=== PATIENT | male | born 1960 | race Caucasian/White ===

== ENCOUNTER 2016-06-26 09:25 | Day surgery (SDC) | payer MEDICARE ==
[2016-06-22 10:50] VITALS: BMI 38.0
[~2016-06-26 09:25] MED LIST: LACTATED RINGERS 1,000 ML IV SCH
[2016-06-26 09:42] VITALS: TEMP 98.1
[2016-06-26] MEDS ORDERED: LIDOCAINE 1% 20 ML VIAL (10MG/ML) FOR IV START INTRADERMA ONE (09:44)
[2016-06-26] MEDS ORDERED: fentaNYL (PF) 50 MCG/ML 2 ML AMP ONE (10:32)
[2016-06-26] MEDS ORDERED: PROPOFOL 10 MG/ML 20 ML VIAL IV ONE (10:32)
[2016-06-26] MEDS ORDERED: MIDAZOLAM 2 MG/2 ML VIAL ONE (10:32)
--- NOTE | 2016-06-26 10:39 | P.GSHP ---
History of Present Illness H&P Date: 06/26/16 Chief Complaint: History of colonic polyps This a 55-year-old male referred from Dr. Frankel. Patient presents today for colonoscopy. He's had a previous colonoscopy 3 years ago which showed benign polyps. - Constitutional Constitutional: Reports as per HPI Past Medical History Past Medical History: Hypertension, Osteoarthritis (OA), Sleep Apnea/CPAP/BIPAP Additional Past Medical History / Comment(s): legally blind. History of Any Multi-Drug Resistant Organisms: None Reported Past Surgical History: Appendectomy Additional Past Surgical History / Comment(s): Patient underwent colonoscopy with polypectomy possible precancerous per patient. No history of colon or rectal cancer per patient. Past Anesthesia/Blood Transfusion Reactions: No Reported Reaction Past Psychological History: Anxiety, Bipolar, Depression, Schizophrenia Additional Psychological History / Comment(s): pt. states he sees Dr. Niño for his depression Smoking Status: Former smoker Past Alcohol Use History: None Reported Additional Past Alcohol Use History / Comment(s): smoked cigars quit 2012 Past Drug Use History: None Reported - Past Family History Father Family Medical History: CVA/TIA, Hypertension Mother Family Medical History: No Reported History Brother(s) Family Medical History: Hypertension Sister(s) Family Medical History: Cancer Medications and Allergies Home Medications Medication Instructions Recorded Confirmed Type Sertraline HCl [Zoloft] 200 mg PO DAILY 10/24/14 06/26/16 History amLODIPine [Norvasc] 5 mg PO DAILY 01/03/15 06/26/16 History Multivit-Min/FA/Lycopene/Lut 1 each PO DAILY 06/22/16 06/26/16 History [Centrum Silver Tablet] Trifluoperazine [Stelazine] 2 mg PO TID 06/22/16 06/26/16 History Vit A,C & E/Lutein/Minerals 1 each PO DAILY 06/22/16 06/26/16 History [Ocuvite with Lutein Tablet] Allergies Allergy/AdvReac Type Severity Reaction Status Date / Time Penicillins Allergy Anaphylaxis Verified 06/26/16 09:34 Surgical - Exam Vital Signs Temp Pulse Resp BP Pulse Ox 98.1 F 97 18 140/93 93 L 06/26/16 09:30 06/26/16 09:30 06/26/16 09:30 06/26/16 09:30 06/26/16 09:30 - General well developed, no distress - Eyes PERRL - ENT normal pinna - Neck no masses - Respiratory normal expansion - Cardiovascular Rhythm: regular - Abdomen Abdomen: soft, non tender Assessment and Plan Plan: History of colonic polyps. We'll perform colonoscopy.
--- NOTE | 2016-06-26 10:53 | P.OP ---
Date of Procedure: 06/26/16 Preoperative Diagnosis: History of colon polyps Postoperative Diagnosis: Mild diverticulosis External hemorrhoids Procedure(s) Performed: Colonoscopy Anesthesia: MAC Surgeon: Jose Carlos Mcdowell Pathology: none sent Condition: stable Disposition: PACU Description of Procedure: The patient's placed on the endoscopy table in the lateral position. He received IV sedation. Digital rectal exam was performed which revealed external hemorrhoids. The flexible colonoscope was then placed patient anus passed rotator colon. The ileocecal valve was visually is. The cecum, ascending and transverse colon appeared normal. In the descending; was mild diverticular changes. Scope was then brought back the rectum and this appeared normal. Scope was withdrawn for patient.
[2016-06-26 10:58] VITALS: RESP 20
[2016-06-26 11:14] VITALS: BP 120/82; PULSE 89
== END 2016-06-26 11:44 | disposition home or self-care (01) ==
LOC: ORWHC2ENDO 09:25
PROVIDERS: ATTEND Surgery
DX: Z12.11 Encounter for screening for malignant neoplasm of colon (principal); Z86.010 Personal history of colon polyps; K57.30 Diverticulosis of large intestine without perforation or abscess without bleeding; K64.4 Residual hemorrhoidal skin tags; I10 Essential (primary) hypertension; M19.90 Unspecified osteoarthritis, unspecified site; Z87.891 Personal history of nicotine dependence; F41.9 Anxiety disorder, unspecified; F31.9 Bipolar disorder, unspecified; F32.9 Major depressive disorder, single episode, unspecified; F20.9 Schizophrenia, unspecified; H54.8 Legal blindness, as defined in USA; G47.30 Sleep apnea, unspecified; Z99.89 Dependence on other enabling machines and devices; Z88.0 Allergy status to penicillin; Z79.899 Other long term (current) drug therapy
CPT/HCPCS: J2250; J3010; J2704; G0105

== ENCOUNTER 2018-08-14 16:04 | Emergency (ER) | payer MEDICARE ==
[2018-08-14] MEDS ORDERED: ALPRAZolam 0.5 MG TAB PO STA (16:36)
[2018-08-14 16:40] LABS: Appearance,Urine Clear (Clear); Bilirubin,Urine Negative (Negative); Blood,Urine Negative (Negative); Color,Urine Light Yellow; Glucose,Urine (UA) Negative (Negative); Ketones,Urine Negative (Negative); Leukocyte Esterase,Urine Negative (Negative); Nitrite,Urine Negative (Negative); Protein,Urine Negative (Negative); Specific Gravity,Urine 1.002 (1.001-1.035); Urobilinogen,Urine <2.0 mg/dL (<2.0)
[2018-08-14 16:53] LABS: Amphetamine Screen,Urine Not Detected (NotDetected); Barbiturate Screen,Urine Not Detected (NotDetected); Benzodiazepines Screen,Urine Not Detected (NotDetected); Cocaine Screen,Urine Not Detected (NotDetected); Methadone Screen, Urine Not Detected (NotDetected); Opiate Screen,Urine Not Detected (NotDetected); Oxycodone Screen, Urine Not Detected (NotDetected); Phencyclidine Screen,Urine Not Detected (NotDetected); Tricyclic Antidepressant,Urine Not Detected (NotDetected); Urn Cannabinoid Scrn Not Detected (NotDetected)
[2018-08-14 16:57] LABS: Basophils % (A) 1 %; Eosinophils # (A) 0.3 k/uL (0-0.7); Eosinophils % (A) 4 %; HCT 44.3 % (39.0-53.0); HGB 14.7 gm/dL (13.0-17.5); Lymphocytes # (A) 1.4 k/uL (1.0-4.8); Lymphocytes % (A) 22 %; MCH 28.2 pg (25.0-35.0); MCHC 33.3 g/dL (31.0-37.0); MCV 84.9 fL (80.0-100.0); Mean Platelet Volume 6.6; Monocytes # (A) 0.3 k/uL (0-1.0); Monocytes % (A) 4 %; Neutrophils # (A) 4.5 k/uL (1.3-7.7); Neutrophils % (A) 68 %; Platelet Count 192 k/uL (150-450); RBC 5.22 m/uL (4.30-5.90); RDW 13.1 % (11.5-15.5); WBC 6.6 k/uL (3.8-10.6)
[2018-08-14 17:21] LABS: Anion Gap 9 mmol/L; Blood Urea Nitrogen 14 mg/dL (9-20); Calcium 9.8 mg/dL (8.4-10.2); Carbon Dioxide 26 mmol/L (22-30); Chloride 104 mmol/L (98-107); Glucose 90 mg/dL (74-99); Potassium 3.9 mmol/L (3.5-5.1); Sodium 139 mmol/L (137-145)
--- NOTE | 2018-08-14 17:28 | ED ---
General Adult HPI - General Chief complaint: Psychiatric Symptoms Stated complaint: Lack of sleep Time Seen by Provider: 08/14/18 16:14 Source: patient Mode of arrival: ambulatory Limitations: no limitations - History of Present Illness Initial comments: Dictation was produced using [employer] dictation software. please excuse any grammatical, word or spelling errors. Chief Complaint: 57-year-old male presents with chief complaint of anxiety, insomnia and poor living situation. History of Present Illness: Patient is a 57-year-old male with chronic visual deficit, hypertension, also arthritis sleep apnea. He presents today because Sleep at night. Patient states that over the last several days there have been concerns of a mouse running around in his quarters. Reports that he is very anxious because of this and is unable to sleep at night because he feels like he can hear the mouse running around his house. States it is causing him to be anxious. He takes multiple medications for his anxiety and follows up with a psychiatrist. Patient has no other complaints at this time. The ROS documented in this emergency department record has been reviewed and confirmed by me. Those systems with pertinent positive or negative responses have been documented in the HPI. All other systems are other negative and/or noncontributory. PHYSICAL EXAM: General Impression: Alert and oriented x3, not in acute distress HEENT: Normocephalic atraumatic, extra-ocular movements intact, pupils equal and reactive to light bilaterally, mucous membranes moist. Cardiovascular: Heart regular rate and rhythm, S1&S2 audible, no murmurs, rubs or gallops Chest: Lungs clear to auscultation bilaterally, no rhonchi, no wheeze, no rales Abdomen: Bowel sounds present, abdomen soft, non-tender, non-distended, no organomegaly Musculoskeletal: Pulses present and equal in all extremities, no peripheral edema Motor: no focal deficits noted Neurological: CN II-XII grossly intact, no focal motor or sensory deficits noted Skin: Intact with no visualized rashes Psych: Anxious ED course: 57-year-old male presents with anxiety and difficulty sleeping at night secondary to concerns of mild sinus house. Signs upon arrival shows heart rate of 12 cumbersome vital signs within acceptable limits. Patient's well- appearing. Physical examination is benign. Patient given 0.5 mg of by mouth Xanax. . Patient insisted that laboratory evaluation be performed to rule out any sort of life-threatening condition. CBC, metabolic panel, urinalysis, rapid urine drug screen is obtained showing no acute processes. Patient reevaluated with improvement of symptoms. Attempt was made to contact patient's psychiatrist however unable to do so. Nonetheless, patient clear for discharge. He is told to follow-up with his psychiatrist as soon as possible for adjustments of his anxiety medications. Patient understandable and agreeable to disposition.Patient clear for discharge. - Related Data Home Medications Medication Instructions Recorded Confirmed Sertraline HCl [Zoloft] 200 mg PO DAILY 10/24/14 06/26/16 ARIPiprazole [Abilify] 2.5 mg PO BID 08/14/18 08/14/18 amLODIPine [Norvasc] 10 mg PO DAILY 08/14/18 08/14/18 Allergies Allergy/AdvReac Type Severity Reaction Status Date / Time Penicillins Allergy Anaphylaxis Verified 08/14/18 16:50 Review of Systems ROS Statement: Those systems with pertinent positive or pertinent negative responses have been documented in the HPI. ROS Other: All systems not noted in ROS Statement are negative. Past Medical History Past Medical History: Hypertension, Osteoarthritis (OA), Sleep Apnea/CPAP/BIPAP Additional Past Medical History / Comment(s): legally blind. History of Any Multi-Drug Resistant Organisms: None Reported Past Surgical History: Appendectomy Additional Past Surgical History / Comment(s): Patient underwent colonoscopy 01/29/2014 with polypectomy possible precancerous per patient. No history of colon or rectal cancer per patient. Past Anesthesia/Blood Transfusion Reactions: No Reported Reaction Past Psychological History: Anxiety, Bipolar, Depression, Schizophrenia Smoking Status: Former smoker Past Alcohol Use History: None Reported Past Drug Use History: None Reported - Past Family History Father Family Medical History: CVA/TIA, Hypertension Mother Family Medical History: No Reported History Brother(s) Family Medical History: Hypertension Sister(s) Family Medical History: Cancer General Exam Limitations: no limitations Course Vital Signs 08/14/18 16:07 Temperature 98.7 F Pulse Rate 102 H Respiratory 20 Rate Blood Pressure 146/95 O2 Sat by Pulse 100 Oximetry Medical Decision Making - Lab Data Result diagrams: 08/14/18 16:47 08/14/18 16:47 Lab Results 05/15/19 05/15/19 05/15/19 Range/Units 16:25 16:47 16:47 WBC 6.6 (3.8-10.6) k/uL RBC 5.22 (4.30-5.90) m/uL Hgb 14.7 (13.0-17.5) gm/dL Hct 44.3 (39.0-53.0) % MCV 84.9 (80.0-100.0) fL MCH 28.2 (25.0-35.0) pg MCHC 33.3 (31.0-37.0) g/dL RDW 13.1 (11.5-15.5) % Plt Count 192 (150-450) k/uL Neutrophils % 68 % Lymphocytes % 22 % Monocytes % 4 % Eosinophils % 4 % Basophils % 1 % Neutrophils # 4.5 (1.3-7.7) k/uL Lymphocytes # 1.4 (1.0-4.8) k/uL Monocytes # 0.3 (0-1.0) k/uL Eosinophils # 0.3 (0-0.7) k/uL Basophils # 0.0 (0-0.2) k/uL Sodium 139 (137-145) mmol/L Potassium 3.9 (3.5-5.1) mmol/L Chloride 104 (98-107) mmol/L Carbon Dioxide 26 (22-30) mmol/L Anion Gap 9 mmol/L BUN 14 (9-20) mg/dL Creatinine 0.78 (0.66-1.25) mg/dL Est GFR (CKD-EPI)AfAm >90 (>60 ml/min/1.73 sqM) Est GFR (CKD-EPI)NonAf >90 (>60 ml/min/1.73 sqM) Glucose 90 (74-99) mg/dL Calcium 9.8 (8.4-10.2) mg/dL Urine Color Light Yellow Urine Appearance Clear (Clear) Urine pH 6.0 (5.0-8.0) Ur Specific [place] 1.002 (1.001-1.035) Urine Protein Negative (Negative) Urine Glucose (UA) Negative (Negative) Urine Ketones Negative (Negative) Urine Blood Negative (Negative) Urine Nitrite Negative (Negative) Urine Bilirubin Negative (Negative) Urine Urobilinogen <2.0 (<2.0) mg/dL Ur Leukocyte Esterase Negative (Negative) Urine Opiates Screen Not Detected (NotDetected) Ur Oxycodone Screen Not Detected (NotDetected) Urine Methadone Screen Not Detected (NotDetected) Ur Propoxyphene Screen Not Detected (NotDetected) Ur Barbiturates Screen Not Detected (NotDetected) U Tricyclic Antidepress Not Detected (NotDetected) Ur Phencyclidine Scrn Not Detected (NotDetected) Ur Amphetamines Screen Not Detected (NotDetected) U Methamphetamines Scrn Not Detected (NotDetected) U Benzodiazepines Scrn Not Detected (NotDetected) Urine Cocaine Screen Not Detected (NotDetected) U Marijuana (THC) Screen Not Detected (NotDetected) Disposition Clinical Impression: Acute anxiety Disposition: HOME SELF-CARE Condition: Good Instructions (If sedation given, give patient instructions): Anxiety (ED) Is patient prescribed a controlled substance at d/c from ED?: No Referrals: Rich Niño DO [Doctor of Osteopathic Medicine] - 1-2 days Time of Disposition: 17:33
[2018-08-14 17:44] VITALS: BP 129/84; PULSE 99; RESP 18; TEMP 98.5
== END 2018-08-14 17:42 | disposition home or self-care (01) ==
LOC: EC 16:04
DX: F41.9 Anxiety disorder, unspecified (principal); I10 Essential (primary) hypertension; G47.30 Sleep apnea, unspecified; F31.9 Bipolar disorder, unspecified; F20.9 Schizophrenia, unspecified; Z79.899 Other long term (current) drug therapy; Z88.0 Allergy status to penicillin; Z87.891 Personal history of nicotine dependence
CPT/HCPCS: 36415; 80048; 80306; 81003; 85025; 99283

== ENCOUNTER 2020-07-04 18:29 | Inpatient (IN) | payer MEDICARE ==
--- NOTE | 2020-07-04 18:47 | ED ---
General Adult HPI - General Chief complaint: Shortness of Breath Stated complaint: Covid+, SOB Time Seen by Provider: 07/04/20 18:43 Source: patient Mode of arrival: wheelchair Limitations: physical limitation - History of Present Illness Initial comments: Patient presents the ED stating that he tested positive for Covid 8 days ago, and he has now developed increased weakness and difficulty breathing. Patient states that he has had symptoms now for 10 days. Patient also states that he has had a worsening cough. Patient denies having any pain, fever, headache, focal neuro deficit, chest pain, hemoptysis, palpitations, dizziness, abdominal pain, nausea/vomiting/diarrhea, dysuria or urinary symptoms, leg or calf swelling or pain, or any other symptoms or complaints. Patient denies receiving a Covid vaccination. Patient is legally blind. - Related Data Home Medications Medication Instructions Recorded Confirmed Sertraline HCl [Zoloft] 200 mg PO DAILY 10/24/14 07/04/20 ARIPiprazole [Abilify] 5 mg PO BID 08/14/18 07/04/20 ALPRAZolam [Xanax] 0.25 mg PO DAILY PRN 07/04/20 07/04/20 Cholecalciferol (Vitamin D3) 125 mcg PO DAILY 07/04/20 07/04/20 [Vitamin D3 (5000 Iu)] Zinc 50 mg PO DAILY 07/04/20 07/04/20 Allergies Allergy/AdvReac Type Severity Reaction Status Date / Time Penicillins Allergy Anaphylaxis Verified 07/04/20 20:26 Review of Systems ROS Statement: Those systems with pertinent positive or pertinent negative responses have been documented in the HPI. ROS Other: All systems not noted in ROS Statement are negative. Past Medical History Past Medical History: Hypertension, Osteoarthritis (OA), Sleep Apnea/CPAP/BIPAP Additional Past Medical History / Comment(s): legally blind. History of Any Multi-Drug Resistant Organisms: None Reported Past Surgical History: Appendectomy Additional Past Surgical History / Comment(s): Patient underwent colonoscopy 01/29/2014 with polypectomy possible precancerous per patient. No history of colon or rectal cancer per patient. Past Anesthesia/Blood Transfusion Reactions: No Reported Reaction Past Psychological History: Anxiety, Bipolar, Depression, Schizophrenia Smoking Status: Never smoker Past Alcohol Use History: None Reported Past Drug Use History: None Reported - Past Family History Father Family Medical History: CVA/TIA, Hypertension Mother Family Medical History: No Reported History Brother(s) Family Medical History: Hypertension Sister(s) Family Medical History: Cancer General Exam Limitations: physical limitation General appearance: alert, in no apparent distress Head exam: Present: atraumatic, normocephalic Eye exam: Present: normal appearance, EOMI ENT exam: Present: mucous membranes moist Neck exam: Present: other (Trachea is in midline) Respiratory exam: Present: normal lung sounds bilaterally. Absent: respiratory distress, wheezes, rales, rhonchi, stridor Cardiovascular Exam: Present: regular rate, normal rhythm, normal heart sounds, other (Normal radial pulses bilaterally) GI/Abdominal exam: Present: soft. Absent: distended, tenderness, guarding Extremities exam: Present: other (Negative Homans sign bilaterally). Absent: tenderness, pedal edema, calf tenderness Neurological exam: Present: alert, oriented X3. Absent: motor sensory deficit Psychiatric exam: Present: normal affect, normal mood Skin exam: Present: warm, dry, intact, normal color Course Vital Signs 07/04/20 07/04/20 18:30 19:38 Temperature 98.2 F Pulse Rate 56 L 108 H Respiratory 24 30 H Rate Blood Pressure 108/71 107/76 O2 Sat by Pulse 95 95 Oximetry - Reevaluation(s) Reevaluation #1: 07/04/20 19:57 Case, H&P and test results were discussed with Dr. Duncan who is currently in the ED. He accepts hospital admission. He recommends IV Decadron and pulmonology consultation. He has no further recommendations at this time. 07/04/20 21:08 Test results were discussed with Dr. Duncan EKG Findings - EKG Comments: EKG Findings:: Sinus tachycardia, ventricular rate 113 bpm, no ectopy, normal OR and QRS intervals, normal QT interval, normal axis, incomplete right bundle branch block, no ST or T-wave abnormality Medical Decision Making - Lab Data Result diagrams: 07/04/20 19:14 07/04/20 19:14 Lab Results 07/04/20 07/04/20 07/04/20 Range/Units 19:14 19:14 19:14 WBC 8.2 (3.8-10.6) k/uL RBC 4.74 (4.30-5.90) m/uL Hgb 14.0 (13.0-17.5) gm/dL Hct 40.0 (39.0-53.0) % MCV 84.4 (80.0-100.0) fL MCH 29.5 (25.0-35.0) pg MCHC 34.9 (31.0-37.0) g/dL RDW 12.5 (11.5-15.5) % Plt Count 237 (150-450) k/uL MPV 7.3 Neutrophils % 84 % Lymphocytes % 11 % Monocytes % 3 % Eosinophils % 0 % Basophils % 0 % Neutrophils # 6.9 (1.3-7.7) k/uL Lymphocytes # 0.9 L (1.0-4.8) k/uL Monocytes # 0.3 (0-1.0) k/uL Eosinophils # 0.0 (0-0.7) k/uL Basophils # 0.0 (0-0.2) k/uL PT 11.3 (9.0-12.0) sec INR 1.1 (<1.2) APTT 25.1 (22.0-30.0) sec D-Dimer 0.68 H (<0.60) mg/L FEU Sodium 134 L (137-145) mmol/L Potassium 4.0 (3.5-5.1) mmol/L Chloride 99 (98-107) mmol/L Carbon Dioxide 20 L (22-30) mmol/L Anion Gap 15 mmol/L BUN 31 H (9-20) mg/dL Creatinine 1.38 H (0.66-1.25) mg/dL Est GFR (CKD-EPI)AfAm 65 (>60 ml/min/1.73 sqM) Est GFR (CKD-EPI)NonAf 56 (>60 ml/min/1.73 sqM) Glucose 135 H (74-99) mg/dL Plasma Lactic Acid Reed (0.7-2.0) mmol/L Calcium 8.6 (8.4-10.2) mg/dL Magnesium 2.1 (1.6-2.3) mg/dL Total Bilirubin 2.0 H (0.2-1.3) mg/dL AST 147 H (17-59) U/L ALT 81 H (4-49) U/L Alkaline Phosphatase 51 (38-126) U/L Lactate Dehydrogenase 1334 H (313-618) U/L Troponin I (0.000-0.034) ng/mL C-Reactive Protein 260.5 H (<10.0) mg/L NT-Pro-B Natriuret Pep pg/mL Total Protein 7.2 (6.3-8.2) g/dL Albumin 3.9 (3.5-5.0) g/dL Coronavirus (PCR) (Not Detectd) 07/04/20 07/04/20 07/04/20 Range/Units 19:14 19:14 19:14 WBC (3.8-10.6) k/uL RBC (4.30-5.90) m/uL Hgb (13.0-17.5) gm/dL Hct (39.0-53.0) % MCV (80.0-100.0) fL MCH (25.0-35.0) pg MCHC (31.0-37.0) g/dL RDW (11.5-15.5) % Plt Count (150-450) k/uL MPV Neutrophils % % Lymphocytes % % Monocytes % % Eosinophils % % Basophils % % Neutrophils # (1.3-7.7) k/uL Lymphocytes # (1.0-4.8) k/uL Monocytes # (0-1.0) k/uL Eosinophils # (0-0.7) k/uL Basophils # (0-0.2) k/uL PT (9.0-12.0) sec INR (<1.2) APTT (22.0-30.0) sec D-Dimer (<0.60) mg/L FEU Sodium (137-145) mmol/L Potassium (3.5-5.1) mmol/L Chloride (98-107) mmol/L Carbon Dioxide (22-30) mmol/L Anion Gap mmol/L BUN (9-20) mg/dL Creatinine (0.66-1.25) mg/dL Est GFR (CKD-EPI)AfAm (>60 ml/min/1.73 sqM) Est GFR (CKD-EPI)NonAf (>60 ml/min/1.73 sqM) Glucose (74-99) mg/dL Plasma Lactic Acid Reed 4.8 H* (0.7-2.0) mmol/L Calcium (8.4-10.2) mg/dL Magnesium (1.6-2.3) mg/dL Total Bilirubin (0.2-1.3) mg/dL AST (17-59) U/L ALT (4-49) U/L Alkaline Phosphatase (38-126) U/L Lactate Dehydrogenase (313-618) U/L Troponin I 1.270 H* (0.000-0.034) ng/mL C-Reactive Protein (<10.0) mg/L NT-Pro-B Natriuret Pep 4540 pg/mL Total Protein (6.3-8.2) g/dL Albumin (3.5-5.0) g/dL Coronavirus (PCR) (Not Detectd) 07/04/20 Range/Units 19:14 WBC (3.8-10.6) k/uL RBC (4.30-5.90) m/uL Hgb (13.0-17.5) gm/dL Hct (39.0-53.0) % MCV (80.0-100.0) fL MCH (25.0-35.0) pg MCHC (31.0-37.0) g/dL RDW (11.5-15.5) % Plt Count (150-450) k/uL MPV Neutrophils % % Lymphocytes % % Monocytes % % Eosinophils % % Basophils % % Neutrophils # (1.3-7.7) k/uL Lymphocytes # (1.0-4.8) k/uL Monocytes # (0-1.0) k/uL Eosinophils # (0-0.7) k/uL Basophils # (0-0.2) k/uL PT (9.0-12.0) sec INR (<1.2) APTT (22.0-30.0) sec D-Dimer (<0.60) mg/L FEU Sodium (137-145) mmol/L Potassium (3.5-5.1) mmol/L Chloride (98-107) mmol/L Carbon Dioxide (22-30) mmol/L Anion Gap mmol/L BUN (9-20) mg/dL Creatinine (0.66-1.25) mg/dL Est GFR (CKD-EPI)AfAm (>60 ml/min/1.73 sqM) Est GFR (CKD-EPI)NonAf (>60 ml/min/1.73 sqM) Glucose (74-99) mg/dL Plasma Lactic Acid Reed (0.7-2.0) mmol/L Calcium (8.4-10.2) mg/dL Magnesium (1.6-2.3) mg/dL Total Bilirubin (0.2-1.3) mg/dL AST (17-59) U/L ALT (4-49) U/L Alkaline Phosphatase (38-126) U/L Lactate Dehydrogenase (313-618) U/L Troponin I (0.000-0.034) ng/mL C-Reactive Protein (<10.0) mg/L NT-Pro-B Natriuret Pep pg/mL Total Protein (6.3-8.2) g/dL Albumin (3.5-5.0) g/dL Coronavirus (PCR) Detected A (Not Detectd) - Radiology Data Radiology results: report reviewed (Chest x-ray: There is pulmonary edema that could relate to acute heart failure or RDS) Disposition Clinical Impression: Pneumonia due to COVID-19 virus, Elevated troponin Disposition: ADMITTED IP TO THIS HOSP Condition: Stable Is patient prescribed a controlled substance at d/c from ED?: No Time of Disposition: 20:01
[2020-07-04 19:25] LABS: Basophils % (A) 0 %; Eosinophils % (A) 0 %; Lymphocytes # (A) 0.9 k/uL (1.0-4.8); Lymphocytes % (A) 11 %; MCH 29.5 pg (25.0-35.0); MCHC 34.9 g/dL (31.0-37.0); MCV 84.4 fL (80.0-100.0); Mean Platelet Volume 7.3; Monocytes # (A) 0.3 k/uL (0-1.0); Monocytes % (A) 3 %; Neutrophils # (A) 6.9 k/uL (1.3-7.7); Neutrophils % (A) 84 %; Platelet Count 237 k/uL (150-450); RBC 4.74 m/uL (4.30-5.90); RDW 12.5 % (11.5-15.5); WBC 8.2 k/uL (3.8-10.6)
[2020-07-04 19:38] LABS: Albumin 3.9 g/dL (3.5-5.0); Calcium 8.6 mg/dL (8.4-10.2); Total Protein 7.2 g/dL (6.3-8.2)
[2020-07-04] MEDS ORDERED: SODIUM CHLORIDE 0.9% 1,000 ML IV ONE (19:47)
[2020-07-04 19:52] LABS: C Reactive Protein 260.5 mg/L (<10.0); Magnesium 2.1 mg/dL (1.6-2.3)
--- NOTE | 2020-07-04 19:54 | XR ---
EXAMINATION TYPE: XR chest 1V portable DATE OF EXAM: 07/04/2020 COMPARISON: NONE HISTORY: Difficulty breathing TECHNIQUE: Single view FINDINGS: Heart is enlarged. There is some pulmonary interstitial and airspace edema. There is no ple ural effusion. There are chest leads IMPRESSION: There is pulmonary edema that could relate to acute heart failure or RDS.
[2020-07-04] MEDS ORDERED: DEXAMETHASONE SOD PHOSPHATE 4 MG/ML 1 ML VIAL IV STA (19:58)
[2020-07-04] MEDS ORDERED: ASPIRIN 81 MG PO STA (20:12)
[2020-07-04] MEDS: SODIUM CHLORIDE 0.9% 1,000 ML IV SCH (20:21)
[2020-07-04 20:30] LABS: D-Dimer 0.68 mg/L FEU (<0.60); INR 1.1 (<1.2); Partial Thromboplastin Time 25.1 sec (22.0-30.0); Prothrombin Time 11.3 sec (9.0-12.0)
[2020-07-04] MEDS ORDERED: ALPRAZolam 0.25 MG TAB PO PRN (20:53)
[2020-07-04] MEDS ORDERED: ENOXAPARIN 40 MG/0.4 ML SYRINGE SQ SCH (21:00)
[2020-07-04] MEDS ORDERED: CHOLECALCIFEROL 25 MCG (1000 IU) TABLET PO SCH (21:00)
[2020-07-04] MEDS ORDERED: HEPARIN SODIUM 1,000 UN/ML (10ML VL) IV ONE (21:15)
[2020-07-04] MEDS: ARIPiprazole 5 MG TAB PO SCH (21:49)
[2020-07-04] MEDS: ZINC SULFATE 220 MG CAP PO SCH (21:49)
[2020-07-04] MEDS: ASCORBIC ACID 500 MG TAB PO SCH (21:49)
[2020-07-04] MEDS: PANTOPRAZOLE 40 MG TABLET PO SCH (21:49)
[2020-07-04] MEDS: HEPARIN SOD,PORK IN 0.45% NACL 25,000 UNIT in 0.45% NACL 1 250ML.BAG IV SCH (21:53)
--- NOTE | 2020-07-04 22:08 | CT ---
EXAMINATION TYPE: CT chest wo con DATE OF EXAM: 07/04/2020 COMPARISON: None HISTORY: Covid +, dyspnea CT DLP: 849 mGycm Automated exposure control for dose reduction was used. Images were obtained from the thoracic inlet to the diaphragm with no contrast. There is extensive around glass interstitial infiltrate throughout the lungs. There is no evidence of a discrete mass. Heart is borderline enlarged. There is no pericardial effusion. There is no pleural effusion. There are no hilar masses. Mediastinum is intact. There is no evidence of thoracic aortic aneurysm. The bony thorax is intact. Sternum is intact. Upper abdominal soft tissues appear intact. IMPRESSION: Moderately severe pulmonary interstitial edema.
--- NOTE | 2020-07-04 23:01 | HP ---
HISTORY AND PHYSICAL DATE OF SERVICE: 07/04/2020 CHIEF COMPLAINT: Shortness of breath. HISTORY OF PRESENT ILLNESS: This 59-year-old gentleman with a past medical history of multiple medical problems including hypertension, DJD, history of sleep apnea, history of legal blindness, being followed by Dr. Frankel in the outpatient setting was recently diagnosed with Covid about 8 days ago. The patient is complaining of some increased weakness and difficulty breathing and patient came to [facility] and admitted to the hospital for further evaluation and treatment. The patient also had worsening cough without much sputum and in the emergency room, evaluation showed multiple abnormalities, including increased creatinine indicative of acute renal failure, acute tubular necrosis and lactic acid elevated secondary to COVID-19 and patient had elevated AST, ALT, and features of hepatitis. Troponins found to be elevated 1.270 indicating acute non-ST- segment-elevation myocardial infarction. There is no history of any rigors, chills. No history of any headache, loss of consciousness or seizures. PAST MEDICAL HISTORY: Hypertension, DJD, sleep apnea, legal blindness. MEDICATIONS: Prior to admission include: Zinc, Zoloft, vitamin D3, Abilify, Xanax. ALLERGIES: PENICILLIN. FAMILY HISTORY: History of CVA, TIA, hypertension in the family. SOCIAL HISTORY: Previous history of smoking. No history of current smoking or alcohol. REVIEW OF SYSTEMS: ENT: Legally blind. Cardiovascular: No angina. Respiration as mentioned earlier. GI: As mentioned earlier. : No dysuria. NERVOUS SYSTEM: No numbness or weakness. ALLERGY/IMMUNOLOGY: No asthma or hayfever. MUSCULOSKELETAL as mentioned earlier. HEMATOLOGY/ONCOLOGY: No history of anemia. ENDOCRINE as mentioned earlier. CONSTITUTIONAL: As mentioned earlier. DERMATOLOGY: Negative. RHEUMATOLOGY: Negative. PSYCHIATRIC: As mentioned earlier. PHYSICAL EXAMINATION: Alert and oriented x3. Pulse is 108. Blood pressure 107/76, respirations 13. Temperature 98.2, pulse ox 94% on 2 L. HEENT: Conjunctivae normal. NECK: No JVD. CARDIOVASCULAR: S1, S2 muffled. RESPIRATIONS: Breath sounds diminished the bases. A few scattered rhonchi and crackles. Expiratory wheezing also present. ABDOMEN: Soft, nontender. No mass palpable. LEGS: No edema, no swelling. Nervous system: Higher functions as mentioned earlier. Moves all four limbs. LYMPHATICS: No lymph nodes palpable in the neck, axillae or groin. SKIN: No ulcer, no rash and no bleeding. JOINTS: No active deforming arthropathy. LABS: The D-dimer is 0.68. Sodium 134. Other labs are noted as mentioned earlier. Chest x- ray which was personally reviewed by me showed bilateral infiltrates, left more than the right. ASSESSMENT: 1. Acute COVID-19 infection with significant bilateral interstitial pneumonia, left more than the right. 2. Acute renal failure. 3. Hyponatremia. 4. Elevated D-dimer. 5. Elevated bilirubin, AST, ALT, possibly secondary to COVID hepatitis. 6. Elevated LDH. 7. Troponin 1.270 possible acute [id number]-elevation myocardial infarction. 8. Hypertension. 9. Degenerative joint disease. 10.Sleep apnea. 11.Legal blindness. 12.Polypectomy. 13.Anxiety/bipolar depression, schizophrenia. 14.FULL CODE. 15.Obesity with body mass of 34.3. RECOMMENDATIONS AND DISCUSSION: In this 59-year-old gentleman who presented with multiple complex medical issues, we will monitor the patient closely, continue the current medications, monitoring and symptomatic treatment. I would recommend a V/Q scan to rule out possible pulmonary embolism. Consult Pulmonary and Cardiology for elevated troponin. Otherwise symptomatic treatment. Lovenox. CT scan of the chest. Zinc, vitamin supplementation. Prognosis is extremely guarded because of multiple complex medical issues. A copy of this dictation is being forwarded to Dr. Frankel, who is the primary physician. MMODL / IJN: [id number] /
[2020-07-05] MEDS ORDERED: LORazepam 2 MG/ML INJ IV STA ×2 (01:54→03:58)
[2020-07-05 03:04] LABS: Appearance,Urine Cloudy (Clear); Bacteria,Urine Occasional /hpf; Bilirubin,Urine Negative (Negative); Blood,Urine Small (Negative); Color,Urine Dark Yellow; Glucose,Urine (UA) Negative (Negative); Granular Casts,Urine 44 /lpf (0); Hyaline Casts,Urine 222 /lpf (0-2); Ketones,Urine Trace (Negative); Leukocyte Esterase,Urine Negative (Negative); Mucus,Urine Many /hpf; Nitrite,Urine Negative (Negative); PH, Urine 5.5 (5.0-8.0); Protein,Urine 2+ (Negative); RBC,Urine 2 /hpf (0-5); Specific Gravity,Urine 1.031 (1.001-1.035); Squamous Epithelial Cell,Urine 3 /hpf (0-4); WBC,Urine 15 /hpf (0-5)
--- NOTE | 2020-07-05 03:48 | ED ---
Medical Decision Making - Medical Decision Making This is a 59-year-old patient with Covid who was a hold patient in the emergency department. Nursing had contacted Dr. Lora regarding patient's worsening condition. After reviewing the vital signs, labs, and patient clinical features with Dr. Lora, he felt patient should have intubation for impending respiratory failure. I did see the patient and agree the patient is entering respiratory failure. Patient was moved to the trauma room and I intubated the patient using the glide scope without difficulty. - Lab Data Result diagrams: 07/04/20 19:14 07/04/20 19:14 Lab Results 07/04/20 07/04/20 07/04/20 Range/Units 19:14 19:14 19:14 WBC 8.2 (3.8-10.6) k/uL RBC 4.74 (4.30-5.90) m/uL Hgb 14.0 (13.0-17.5) gm/dL Hct 40.0 (39.0-53.0) % MCV 84.4 (80.0-100.0) fL MCH 29.5 (25.0-35.0) pg MCHC 34.9 (31.0-37.0) g/dL RDW 12.5 (11.5-15.5) % Plt Count 237 (150-450) k/uL MPV 7.3 Neutrophils % 84 % Lymphocytes % 11 % Monocytes % 3 % Eosinophils % 0 % Basophils % 0 % Neutrophils # 6.9 (1.3-7.7) k/uL Lymphocytes # 0.9 L (1.0-4.8) k/uL Monocytes # 0.3 (0-1.0) k/uL Eosinophils # 0.0 (0-0.7) k/uL Basophils # 0.0 (0-0.2) k/uL PT 11.3 (9.0-12.0) sec INR 1.1 (<1.2) APTT 25.1 (22.0-30.0) sec D-Dimer 0.68 H (<0.60) mg/L FEU Sodium 134 L (137-145) mmol/L Potassium 4.0 (3.5-5.1) mmol/L Chloride 99 (98-107) mmol/L Carbon Dioxide 20 L (22-30) mmol/L Anion Gap 15 mmol/L BUN 31 H (9-20) mg/dL Creatinine 1.38 H (0.66-1.25) mg/dL Est GFR (CKD-EPI)AfAm 65 (>60 ml/min/1.73 sqM) Est GFR (CKD-EPI)NonAf 56 (>60 ml/min/1.73 sqM) Glucose 135 H (74-99) mg/dL Lactic Ac Sepsis Rflx Plasma Lactic Acid Reed (0.7-2.0) mmol/L Calcium 8.6 (8.4-10.2) mg/dL Magnesium 2.1 (1.6-2.3) mg/dL Total Bilirubin 2.0 H (0.2-1.3) mg/dL AST 147 H (17-59) U/L ALT 81 H (4-49) U/L Alkaline Phosphatase 51 (38-126) U/L Lactate Dehydrogenase 1334 H (313-618) U/L Troponin I (0.000-0.034) ng/mL C-Reactive Protein 260.5 H (<10.0) mg/L NT-Pro-B Natriuret Pep pg/mL Total Protein 7.2 (6.3-8.2) g/dL Albumin 3.9 (3.5-5.0) g/dL Coronavirus (PCR) (Not Detectd) 07/04/20 07/04/20 07/04/20 Range/Units 19:14 19:14 19:14 WBC (3.8-10.6) k/uL RBC (4.30-5.90) m/uL Hgb (13.0-17.5) gm/dL Hct (39.0-53.0) % MCV (80.0-100.0) fL MCH (25.0-35.0) pg MCHC (31.0-37.0) g/dL RDW (11.5-15.5) % Plt Count (150-450) k/uL MPV Neutrophils % % Lymphocytes % % Monocytes % % Eosinophils % % Basophils % % Neutrophils # (1.3-7.7) k/uL Lymphocytes # (1.0-4.8) k/uL Monocytes # (0-1.0) k/uL Eosinophils # (0-0.7) k/uL Basophils # (0-0.2) k/uL PT (9.0-12.0) sec INR (<1.2) APTT (22.0-30.0) sec D-Dimer (<0.60) mg/L FEU Sodium (137-145) mmol/L Potassium (3.5-5.1) mmol/L Chloride (98-107) mmol/L Carbon Dioxide (22-30) mmol/L Anion Gap mmol/L BUN (9-20) mg/dL Creatinine (0.66-1.25) mg/dL Est GFR (CKD-EPI)AfAm (>60 ml/min/1.73 sqM) Est GFR (CKD-EPI)NonAf (>60 ml/min/1.73 sqM) Glucose (74-99) mg/dL Lactic Ac Sepsis Rflx Plasma Lactic Acid Reed 4.8 H* (0.7-2.0) mmol/L Calcium (8.4-10.2) mg/dL Magnesium (1.6-2.3) mg/dL Total Bilirubin (0.2-1.3) mg/dL AST (17-59) U/L ALT (4-49) U/L Alkaline Phosphatase (38-126) U/L Lactate Dehydrogenase (313-618) U/L Troponin I 1.270 H* (0.000-0.034) ng/mL C-Reactive Protein (<10.0) mg/L NT-Pro-B Natriuret Pep 4540 pg/mL Total Protein (6.3-8.2) g/dL Albumin (3.5-5.0) g/dL Coronavirus (PCR) (Not Detectd) 07/04/20 07/04/20 Range/Units 19:14 19:46 WBC (3.8-10.6) k/uL RBC (4.30-5.90) m/uL Hgb (13.0-17.5) gm/dL Hct (39.0-53.0) % MCV (80.0-100.0) fL MCH (25.0-35.0) pg MCHC (31.0-37.0) g/dL RDW (11.5-15.5) % Plt Count (150-450) k/uL MPV Neutrophils % % Lymphocytes % % Monocytes % % Eosinophils % % Basophils % % Neutrophils # (1.3-7.7) k/uL Lymphocytes # (1.0-4.8) k/uL Monocytes # (0-1.0) k/uL Eosinophils # (0-0.7) k/uL Basophils # (0-0.2) k/uL PT (9.0-12.0) sec INR (<1.2) APTT (22.0-30.0) sec D-Dimer (<0.60) mg/L FEU Sodium (137-145) mmol/L Potassium (3.5-5.1) mmol/L Chloride (98-107) mmol/L Carbon Dioxide (22-30) mmol/L Anion Gap mmol/L BUN (9-20) mg/dL Creatinine (0.66-1.25) mg/dL Est GFR (CKD-EPI)AfAm (>60 ml/min/1.73 sqM) Est GFR (CKD-EPI)NonAf (>60 ml/min/1.73 sqM) Glucose (74-99) mg/dL Lactic Ac Sepsis Rflx Y Plasma Lactic Acid Reed (0.7-2.0) mmol/L Calcium (8.4-10.2) mg/dL Magnesium (1.6-2.3) mg/dL Total Bilirubin (0.2-1.3) mg/dL AST (17-59) U/L ALT (4-49) U/L Alkaline Phosphatase (38-126) U/L Lactate Dehydrogenase (313-618) U/L Troponin I (0.000-0.034) ng/mL C-Reactive Protein (<10.0) mg/L NT-Pro-B Natriuret Pep pg/mL Total Protein (6.3-8.2) g/dL Albumin (3.5-5.0) g/dL Coronavirus (PCR) Detected A (Not Detectd) Disposition Clinical Impression: Pneumonia due to COVID-19 virus, Elevated troponin Disposition: ADMITTED IP TO THIS HOSP Condition: Stable Procedures - Intubation Sedative: Etomidate Paralytic: Succinylcholine Laryngoscope: fiber optic video scope ET Tube Size: 8 ET Tube Uncuffed: No Tube Secured Depth (cm): 24 Tube Secured Location: lips Tube Placement Confirmation: visualized tube passing through cords, equal breath sounds bilaterally, no breath sounds over epigastrium, confirmation by capnometry Patient Tolerated Procedure: well Intubation Complications: none
[2020-07-05] MEDS ORDERED: PROPOFOL 10 MG/ML 20 ML VIAL IV ONE (03:57)
[2020-07-05] MEDS ORDERED: ETOMIDATE 2 MG/ML 10 ML VIAL IVP STA (04:01)
[2020-07-05] MEDS ORDERED: SUCCINYLCHOLINE CHLORIDE VIAL 200 MG/10 ML VIAL IV STA (04:07)
--- NOTE | 2020-07-05 04:59 | XR ---
EXAM: XR Chest, 1 View CLINICAL HISTORY: ITS.REASON XR Reason: Intubation TECHNIQUE: Frontal view of the chest. COMPARISON: 07/04/2020 at 9:41pm FINDINGS: Interval intubation with endotracheal tube terminating 2.8 cm above the level of the chato. Nasogastric tube terminates below the [id number] and left upper quadrant. Low lung volumes and diffuse bilateral confluent opacification of the lung parenchyma, unchanged from prior. IMPRESSION: Interval intubation with endotracheal tube terminating 2.8 cm above the level of the chato. Nasogastric tube terminates below the [id number] and left upper quadrant.
[2020-07-05 05:29] LABS: Basophils % (A) 0 %; Eosinophils % (A) 0 %; HCT 36.8 % (39.0-53.0); HGB 12.5 gm/dL (13.0-17.5); Lymphocytes # (A) 0.7 k/uL (1.0-4.8); Lymphocytes % (A) 10 %; MCH 29.1 pg (25.0-35.0); MCHC 33.9 g/dL (31.0-37.0); MCV 86.1 fL (80.0-100.0); Mean Platelet Volume 7.8; Monocytes # (A) 0.3 k/uL (0-1.0); Monocytes % (A) 4 %; Neutrophils # (A) 5.3 k/uL (1.3-7.7); Neutrophils % (A) 83 %; Platelet Count 216 k/uL (150-450); RBC 4.27 m/uL (4.30-5.90); RDW 12.7 % (11.5-15.5); WBC 6.3 k/uL (3.8-10.6)
[2020-07-05 05:52] LABS: ABG PCO2 33 mmHg (35-45); ABG PH 7.44 (7.35-7.45); ABG PO2 75 mmHg (83-108); Allen Test Performed? Yes
[2020-07-05 05:53] LABS: ABG Base Excess -1.7 mmol/L; ABG HCO3 23 mmol/L (21-25); ABG TCO2 24 mmol/L (19-24)
[2020-07-05 06:16] LABS: Calcium 7.9 mg/dL (8.4-10.2); Potassium 4.3 mmol/L (3.5-5.1)
[2020-07-05] MEDS: HEPARIN SODIUM 1,000 UN/ML (10ML VL) IV PRN ×2 (06:32→13:55)
[2020-07-05] MEDS: PANTOPRAZOLE 40 MG TABLET PO SCH (08:05)
[2020-07-05] MEDS ORDERED: SODIUM CHLORIDE 0.9% 1,000 ML IV ONE ×2 (08:14→08:48)
[2020-07-05] MEDS: NOREPINEPHRINE 4 MG in SODIUM CHLORIDE 0.9% 250 ML IV SCH ×2 (09:07→21:13)
[2020-07-05] MEDS ORDERED: TOCILIZUMAB 800 MG in SODIUM CHLORIDE 0.9% 60 ML IV ONE (10:00)
--- NOTE | 2020-07-05 10:39 | P.CRDCN ---
History of Present Illness Consult date: 07/05/20 Chief complaint: Shortness of breath History of present illness: This is a 59-year-old gentleman who requested to see in the emergency department for further evaluation of abnormal cardiac enzymes. The patient is in process to be admitted to the intensive care unit. He was seen in the emergency department. Currently the patient is intubated and he is on mechanical ventilation. The history was taken from the chart as well as from the nurse taking care of the patient. The patient presented with increasing shortness of breath and also he was experiencing cough productive of sputum. He was diagnosed with covid-19 infection. Apparently he his pressure also was low and he was started on norepinephrine to support his blood pressure. No indication that the patient was experiencing any symptoms of chest pain or chest discomfort and no indication that he was experiencing any dizziness or lightheadedness or any feeling of heart racing or fluttering and no syncope. He was seen already by the pulmonary critical care team. The troponin came in to be slightly elevated. The EKG showed sinus rhythm without any ischemic ST or T-wave a bnormalities. Liver function tests came in to be elevated was elevated AST and LD. Past Medical History Past Medical History: Hypertension, Osteoarthritis (OA), Sleep Apnea/CPAP/BIPAP Additional Past Medical History / Comment(s): legally blind. History of Any Multi-Drug Resistant Organisms: None Reported Past Surgical History: Appendectomy Additional Past Surgical History / Comment(s): Patient underwent colonoscopy 01/29/2014 with polypectomy possible precancerous per patient. No history of colon or rectal cancer per patient. Past Anesthesia/Blood Transfusion Reactions: No Reported Reaction Past Psychological History: Anxiety, Bipolar, Depression, Schizophrenia Smoking Status: Never smoker Past Alcohol Use History: None Reported Past Drug Use History: None Reported - Past Family History Father Family Medical History: CVA/TIA, Hypertension Mother Family Medical History: No Reported History Brother(s) Family Medical History: Hypertension Sister(s) Family Medical History: Cancer Medications and Allergies Home Medications Medication Instructions Recorded Confirmed Type Sertraline HCl [Zoloft] 200 mg PO DAILY 10/24/14 07/04/20 History ARIPiprazole [Abilify] 5 mg PO BID 08/14/18 07/04/20 History ALPRAZolam [Xanax] 0.25 mg PO DAILY PRN 07/04/20 07/04/20 History Cholecalciferol (Vitamin D3) 125 mcg PO DAILY 07/04/20 07/04/20 History [Vitamin D3 (5000 Iu)] Zinc 50 mg PO DAILY 07/04/20 07/04/20 History Allergies Allergy/AdvReac Type Severity Reaction Status Date / Time Penicillins Allergy Anaphylaxis Verified 07/04/20 20:26 Physical Exam Vitals: Vital Signs Temp Pulse Resp BP Pulse Ox 07/05/20 09:37 79 30 H 97/71 07/05/20 09:16 83 30 H 91/70 98 07/05/20 09:10 84 28 H 79/64 98 07/05/20 08:49 86 28 H 78/58 98 07/05/20 08:34 90 31 H 89/63 98 07/05/20 08:14 92 33 H 90/69 99 07/05/20 07:58 86 36 H 106/78 98 07/05/20 07:23 98.0 F 86 35 H 97/71 96 07/05/20 06:57 95 37 H 91/66 96 07/05/20 05:51 103/78 07/05/20 05:31 89 55 H 100/69 07/05/20 05:00 83/58 07/05/20 04:11 100 107/78 07/05/20 03:31 107 H 64 H 109/78 83 L 07/05/20 03:20 112 H 48 H 92/66 07/05/20 03:14 104 H 48 H 92/73 77 L 07/05/20 03:00 116 H 56 H 118/71 82 L 07/05/20 02:00 112 H 110/71 91 L 07/05/20 01:00 123 H 52 H 144/97 91 L 07/05/20 00:00 112 H 48 H 135/88 94 L 07/04/20 22:42 28 H 07/04/20 21:58 107 H 28 H 142/83 96 07/04/20 21:10 110 H 26 H 101/76 96 07/04/20 19:38 108 H 30 H 107/76 95 07/04/20 18:30 98.2 F 56 L 24 108/71 95 Intake and Output 07/04/20 07/05/20 07/05/20 22:59 06:59 14:59 Intake Total 97.055 86.386 Output Total 235 Balance -137.945 86.386 Intake: Intake, IV Titration 97.055 86.386 Amount Heparin Sod,Pork in 0.45% 85.026 NaCl 25,000 unit In 0.45 % NaCl 1 250ml.bag @ 8.4 UNITS/KG/HR 9.906 mls/hr IV .Q24H PRAFUL Rx#: [id number] propofoL 1,000 mg In 12.029 86.386 Empty Bag 1 bag @ Titrate IV .Q0M PRAFUL Rx#: [id number] Output: Urine 235 Uretheral (Silva) 235 Other: Weight 117.934 kg - Constitutional General appearance: no acute distress Results 07/05/20 05:09 07/05/20 05:09 Cardiac Enzymes 07/04/20 07/04/20 07/05/20 Range/Units 19:14 19:14 03:00 AST 147 H (17-59) U/L Lactate Dehydrogenase 1334 H (313-618) U/L Troponin I 1.270 H* 0.997 H* (0.000-0.034) ng/mL Coagulation 07/04/20 07/05/20 Range/Units 19:14 05:09 PT 11.3 (9.0-12.0) sec APTT 25.1 35.4 H (22.0-30.0) sec CBC 07/04/20 07/05/20 Range/Units 19:14 05:09 WBC 8.2 6.3 (3.8-10.6) k/uL RBC 4.74 4.27 L (4.30-5.90) m/uL Hgb 14.0 12.5 L (13.0-17.5) gm/dL Hct 40.0 36.8 L (39.0-53.0) % Plt Count 237 216 (150-450) k/uL Comprehensive Metabolic Panel 07/04/20 07/05/20 Range/Units 19:14 05:09 Sodium 134 L 134 L (137-145) mmol/L Potassium 4.0 4.3 (3.5-5.1) mmol/L Chloride 99 100 (98-107) mmol/L Carbon Dioxide 20 L 23 (22-30) mmol/L BUN 31 H 39 H (9-20) mg/dL Creatinine 1.38 H 1.70 H (0.66-1.25) mg/dL Glucose 135 H 136 H (74-99) mg/dL Calcium 8.6 7.9 L (8.4-10.2) mg/dL AST 147 H (17-59) U/L ALT 81 H (4-49) U/L Alkaline Phosphatase 51 (38-126) U/L Total Protein 7.2 (6.3-8.2) g/dL Albumin 3.9 (3.5-5.0) g/dL Current Medications Generic Name Dose Route Start Last Admin Trade Name Freq PRN Reason Stop Dose Admin Albuterol Sulfate 2 puff 07/05/20 08:00 Albuterol Hfa Inhaler INHALATION RT-TID [facility] Aripiprazole 5 mg 07/04/20 21:00 07/04/20 21:49 Aripiprazole 5 Mg Tab PO 5 mg BID PRAFUL Administration Ascorbic Acid 500 mg 07/04/20 21:00 07/04/20 21:49 Ascorbic Acid 500 Mg Tab PO 500 mg BID PRAFUL Administration Cholecalciferol 125 mcg 07/05/20 09:00 Cholecalciferol 25 Mcg (1000 Iu) Tablet PO DAILY [facility] Dexamethasone Sodium Phosphate 6 mg 07/05/20 09:00 Dexamethasone Sod Phosphate 10 Mg/Ml 1 Ml Vial IV DAILY [facility] Heparin Sodium (Porcine) 0 unit 07/04/20 21:15 07/05/20 06:32 Heparin Sodium 1,000 Un/Ml (10ml Vl) IV 2,925 unit PER PROTOCOL PRN Administration Low PTT Protocol Hydromorphone HCl 0.5 mg 07/04/20 20:56 Hydromorphone 0.5 Mg/0.5 Ml Syringe IVP Q6HR PRN Severe Pain Sodium Chloride 1,000 mls @ 80 mls/hr 07/04/20 20:15 07/04/20 20:21 Saline 0.9% IV 80 mls/hr .[id number] PRAFUL Administration Heparin Sodium/Sodium Chloride 250 mls @ 9.906 mls/hr 07/04/20 21:15 07/05/20 06:28 25,000 unit/ Sodium Chloride IV 10.4 units/kg/hr .Q24H PRAFUL 12.265 mls/hr Titration Protocol 8.4 UNITS/KG/HR Propofol 1,000 mg/ IV Solution 100 mls @ 0 mls/hr 07/05/20 04:00 07/05/20 09:46 IV 65 mcg/kg/min .Q0M PRAFUL 45.994 mls/hr Titration Protocol Titrate Tocilizumab 800 mg/ Sodium 100 mls @ 100 mls/hr 07/05/20 10:00 Chloride IV 07/05/20 10:59 ONCE ONE Norepinephrine Bitartrate 4 mg 254 mls @ 22.466 mls/hr 07/05/20 09:30 1 09:07 / Sodium Chloride IV 0.05 mcg/kg/min .[id number] PRAFUL 22.466 mls/hr Administration Protocol 0.05 MCG/KG/MIN Pantoprazole Sodium 40 mg 07/04/20 21:00 07/05/20 08:05 Pantoprazole 40 Mg Tablet PO Not Given [id number] PRAFUL Sertraline HCl 200 mg 07/05/20 09:00 Sertraline 100 Mg Tab PO DAILY PRAFUL Zinc Sulfate 220 mg 07/04/20 21:00 07/04/20 21:49 Zinc Sulfate 220 Mg Cap PO 220 mg DAILY PRAFUL Administration Intake and Output 07/04/20 07/05/20 07/05/20 22:59 06:59 14:59 Intake Total 97.055 86.386 Output Total 235 Balance -137.945 86.386 Intake: Intake, IV Titration 97.055 86.386 Amount Heparin Sod,Pork in 0.45% 85.026 NaCl 25,000 unit In 0.45 % NaCl 1 250ml.bag @ 8.4 UNITS/KG/HR 9.906 mls/hr IV .Q24H PRAFUL Rx#: [id number] propofoL 1,000 mg In 12.029 86.386 Empty Bag 1 bag @ Titrate IV .Q0M PRAFUL Rx#: [id number] Output: Urine 235 Uretheral (Silva) 235 Other: Weight 117.934 kg 07/05/20 05:09 07/05/20 05:09 Assessment and Plan Assessment: Assessment #1 sepsis with covid-19 #2 acute hypoxic respiratory failure secondary to above #3 hypotension secondary to the above #4 mildly abnormal troponin #5 multiple comorbid conditions Plan #1 consider conservative approach for the mildly abnormal troponin which is likely secondary to sepsis and hypotension #2 follow-up with the serial cardiac enzymes #3 obtain an echocardiogram was Doppler #5 continue monitoring the kidney function as well as liver function #6 follow-up with the patient
[2020-07-05] MEDS: DEXAMETHASONE SOD PHOSPHATE 10 MG/ML 1 ML VIAL IV SCH (11:33)
--- NOTE | 2020-07-05 11:38 | P.CNPUL ---
History of Present Illness Consult date: 07/05/20 Requesting physician: Jason Duncan Reason for consult: dyspnea, cough, hypoxemia, pneumonia, abnormal CXR/CT Chief complaint: Respiratory failure. History of present illness: This is a 59-year-old male who presented to the emergency department and apparently tested positive for COVID 8 days ago. The patient has apparently been sick for about 10 days. His complaints included weakness and difficulty breathing. In addition, the patient had cough. Patient apparently denied fever, headache, pain, or other complaints initially. Patient is legally blind. The patient did not receive the coronavirus vaccination. Apparently, in the emergency department, his respiratory status declined, and he was intubated. The patient on the volume assist control mode rate of 24, breathing 30 times a minute, tidal volume 450, FiO2 100%, PEEP of 5 being increased to 10. Arterial blood gases show pO2 75, pCO2 33, pH is 7.44. He is receiving propofol at 30 mcg/kg/m, heparin via weightbase protocol, and saline at 20 mL an hour. The patient has a history of hypertension, heart posterior arthritis, sleep apnea, and is legally blind. Chest x-ray shows diffuse bilateral infiltrates. White count 6.3, hemoglobin 12.5, hematocrit 36.8, platelet count 216,000. PTT is 35.4. D-dimer 0.68. Sodium 134, potassium 4.3, chlorides 100, CO2 23, anion gap 11, BUN 39, creatinine 1.70. Troponins were 1.270 and 0.997. C-reactive protein is 261, N-terminal proBNP 4540. Pro-calcitonin is 0.23. Urine is n egative both for nitrite and leukocyte esterase. Occasional bacteria, and few white blood cell clumps. Review of Systems REVIEW OF SYSTEMS: CONSTITUTIONAL: [Negative.] NEUROLOGIC: [ Negative.] HEENT: [ Negative.] CARDIAC: [Negative.] PULMONARY: Shortness of breath, cough. GI: [Negative.] : [Negative.] RHEUMATOLOGIC: [ Negative.] IMMUNOLOGIC: [ Negative.] ENDOCRINE: [Negative. ] DERMATOLOGIC: [Negative.] Past Medical History Past Medical History: Hypertension, Osteoarthritis (OA), Sleep Apnea/CPAP/BIPAP Additional Past Medical History / Comment(s): legally blind. History of Any Multi-Drug Resistant Organisms: None Reported Past Surgical History: Appendectomy Additional Past Surgical History / Comment(s): Patient underwent colonoscopy 01/29/2014 with polypectomy possible precancerous per patient. No history of colon or rectal cancer per patient. Past Anesthesia/Blood Transfusion Reactions: No Reported Reaction Past Psychological History: Anxiety, Bipolar, Depression, Schizophrenia Smoking Status: Never smoker Past Alcohol Use History: None Reported Past Drug Use History: None Reported - Past Family History Father Family Medical History: CVA/TIA, Hypertension Mother Family Medical History: No Reported History Brother(s) Family Medical History: Hypertension Sister(s) Family Medical History: Cancer Medications and Allergies Home Medications Medication Instructions Recorded Confirmed Type Sertraline HCl [Zoloft] 200 mg PO DAILY 10/24/14 07/04/20 History ARIPiprazole [Abilify] 5 mg PO BID 08/14/18 07/04/20 History ALPRAZolam [Xanax] 0.25 mg PO DAILY PRN 07/04/20 07/04/20 History Cholecalciferol (Vitamin D3) 125 mcg PO DAILY 07/04/20 07/04/20 History [Vitamin D3 (5000 Iu)] Zinc 50 mg PO DAILY 07/04/20 07/04/20 History Allergies Allergy/AdvReac Type Severity Reaction Status Date / Time Penicillins Allergy Anaphylaxis Verified 07/04/20 20:26 Physical Exam Osteopathic Statement: *. No significant issues noted on an osteopathic structural exam other than those noted in the History and Physical/Consult. Vitals: Vital Signs Temp Pulse Resp BP Pulse Ox 07/05/20 11:04 78 30 H 125/84 95 07/05/20 09:37 79 30 H 97/71 07/05/20 09:16 83 30 H 91/70 98 07/05/20 09:10 84 28 H 79/64 98 07/05/20 08:49 86 28 H 78/58 98 07/05/20 08:34 90 31 H 89/63 98 07/05/20 08:14 92 33 H 90/69 99 07/05/20 07:58 86 36 H 106/78 98 07/05/20 07:23 98.0 F 86 35 H 97/71 96 07/05/20 06:57 95 37 H 91/66 96 07/05/20 05:51 103/78 07/05/20 05:31 89 55 H 100/69 07/05/20 05:00 83/58 07/05/20 04:11 100 107/78 07/05/20 03:31 107 H 64 H 109/78 83 L 07/05/20 03:20 112 H 48 H 92/66 07/05/20 03:14 104 H 48 H 92/73 77 L 07/05/20 03:00 116 H 56 H 118/71 82 L 07/05/20 02:00 112 H 110/71 91 L 07/05/20 01:00 123 H 52 H 144/97 91 L 07/05/20 00:00 112 H 48 H 135/88 94 L 07/04/20 22:42 28 H 07/04/20 21:58 107 H 28 H 142/83 96 07/04/20 21:10 110 H 26 H 101/76 96 07/04/20 19:38 108 H 30 H 107/76 95 07/04/20 18:30 98.2 F 56 L 24 108/71 95 Intake and Output 07/04/20 07/05/20 07/05/20 22:59 06:59 14:59 Intake Total 97.055 148.478 Output Total 235 Balance -137.945 148.478 Intake: Intake, IV Titration 97.055 148.478 Amount Heparin Sod,Pork in 0.45% 85.026 NaCl 25,000 unit In 0.45 % NaCl 1 250ml.bag @ 8.4 UNITS/KG/HR 9.906 mls/hr IV .Q24H PRAFUL Rx#: [id number] propofoL 1,000 mg In 12.029 148.478 Empty Bag 1 bag @ Titrate IV .Q0M PRAFUL Rx#: [id number] Output: Urine 235 Uretheral (Silva) 235 Other: Weight 117.934 kg Sedated, intubated. Currently on the mechanical breathing machine. HEENT examination is grossly unremarkable. Neck supple. Full range of motion. No adenopathy thyromegaly or neck vein distention. Cardiovascular examination reveals regular rhythm rate. S1-S2 normal. No S3 or S4. No discernible murmur noted. Heart rate 70 bpm. Lungs reveal diffuse coarse rhonchi. No crackles or wheezes. Breath sounds equal bilaterally.. Abdomen soft, without bowel sounds. No masses or tenderness. Extremities are intact. No cyanosis clubbing or edema. Skin is without rash or lesion. Neurologic examination cannot be adequately assessed as the patient's on propofo l at 30 mcg/kg/m. Results - Laboratory Findings CBC and BMP: 07/05/20 05:09 07/05/20 05:09 ABG ABG pH 7.44 (7.35-7.45) 07/05/20 05:23 ABG pCO2 33 mmHg (35-45) L 07/05/20 05:23 ABG pO2 75 mmHg (83-108) L 07/05/20 05:23 ABG O2 Saturation 95.0 % (94-97) 07/05/20 05:23 PT/INR, D-dimer PT 11.3 sec (9.0-12.0) 07/04/20 19:14 INR 1.1 (<1.2) 07/04/20 19:14 D-Dimer 0.68 mg/L FEU (<0.60) H 07/04/20 19:14 Abnormal lab findings: Abnormal Labs 07/04/20 07/04/20 07/04/20 19:14 19:14 19:14 RBC Hgb Hct Lymphocytes # 0.9 L APTT D-Dimer 0.68 H ABG pCO2 ABG pO2 Sodium 134 L Carbon Dioxide 20 L BUN 31 H Creatinine 1.38 H Glucose 135 H Plasma Lactic Acid Reed Calcium Total Bilirubin 2.0 H AST 147 H ALT 81 H Lactate Dehydrogenase 1334 H Troponin I C-Reactive Protein 260.5 H Procalcitonin Urine Protein Urine Ketones Urine Blood Urine WBC Urine WBC Clumps Urine Bacteria Hyaline Casts Urine Mucus Coronavirus (PCR) 07/04/20 07/04/20 07/04/20 19:14 19:14 19:14 RBC Hgb Hct Lymphocytes # APTT D-Dimer ABG pCO2 ABG pO2 Sodium Carbon Dioxide BUN Creatinine Glucose Plasma Lactic Acid Reed 4.8 H* Calcium Total Bilirubin AST ALT Lactate Dehydrogenase Troponin I 1.270 H* C-Reactive Protein Procalcitonin 0.23 H Urine Protein Urine Ketones Urine Blood Urine WBC Urine WBC Clumps Urine Bacteria Hyaline Casts Urine Mucus Coronavirus (PCR) 07/04/20 07/04/20 07/05/20 19:14 22:12 01:30 RBC Hgb Hct Lymphocytes # APTT D-Dimer ABG pCO2 ABG pO2 Sodium Carbon Dioxide BUN Creatinine Glucose Plasma Lactic Acid Reed 5.2 H* Calcium Total Bilirubin AST ALT Lactate Dehydrogenase Troponin I C-Reactive Protein Procalcitonin Urine Protein 2+ H Urine Ketones Trace H Urine Blood Small H Urine WBC 15 H Urine WBC Clumps Few H Urine Bacteria Occasional H Hyaline Casts 222 H Urine Mucus Many H Coronavirus (PCR) Detected A 07/05/20 07/05/20 07/05/20 01:32 03:00 05:09 RBC 4.27 L Hgb 12.5 L Hct 36.8 L Lymphocytes # 0.7 L APTT D-Dimer ABG pCO2 ABG pO2 Sodium Carbon Dioxide BUN Creatinine Glucose Plasma Lactic Acid Reed 10.0 H* Calcium Total Bilirubin AST ALT Lactate Dehydrogenase Troponin I 0.997 H* C-Reactive Protein Procalcitonin Urine Protein Urine Ketones Urine Blood Urine WBC Urine WBC Clumps Urine Bacteria Hyaline Casts Urine Mucus Coronavirus (PCR) 07/05/20 07/05/20 07/05/20 05:09 05:09 05:09 RBC Hgb Hct Lymphocytes # APTT 35.4 H D-Dimer ABG pCO2 ABG pO2 Sodium 134 L Carbon Dioxide BUN 39 H Creatinine 1.70 H Glucose 136 H Plasma Lactic Acid Reed 4.4 H* Calcium 7.9 L Total Bilirubin AST ALT Lactate Dehydrogenase Troponin I C-Reactive Protein Procalcitonin Urine Protein Urine Ketones Urine Blood Urine WBC Urine WBC Clumps Urine Bacteria Hyaline Casts Urine Mucus Coronavirus (PCR) 07/05/20 07/05/20 05:23 08:10 RBC Hgb Hct Lymphocytes # APTT D-Dimer ABG pCO2 33 L ABG pO2 75 L Sodium Carbon Dioxide BUN Creatinine Glucose Plasma Lactic Acid Reed 2.5 H* Calcium Total Bilirubin AST ALT Lactate Dehydrogenase Troponin I C-Reactive Protein Procalcitonin Urine Protein Urine Ketones Urine Blood Urine WBC Urine WBC Clumps Urine Bacteria Hyaline Casts Urine Mucus Coronavirus (PCR) - Diagnostic Findings Chest x-ray: image reviewed CT scan - chest: image reviewed Assessment and Plan Assessment: Acute hypoxemic respiratory failure, secondary to COVID 19 pneumonia, status post intubation and mechanical ventilation on July 05. History of blindness. History of hypertension. History of prostate arthritis. History of sleep apnea syndrome, maintained on CPAP. Lifelong nonsmoker. Plan: Plan dated 07/03/2020. The PEEP was increased from 5 to 10 cm of water. I also had the nurse increase the propofol from 15 up to 30 mcg/kg minute. In addition, I told her that if the blood pressure became low, she could give the patient a couple liters of saline, and if the patient did not respond, start norepinephrine. We'll attempt to make an intensive care bed for the patient as soon as possible. The patient is also a candidate for TOCI. We will also make sure the patient is on appropriate vitamins, and Decadron. Additional recommendations and suggestions are forthcoming. Prognosis is guarded. The patient will probably have an arterial line placed and a central line placed once in the ICU. Time with Patient: Greater than 30
[2020-07-05] MEDS: SODIUM CHLORIDE 0.9% 1,000 ML IV SCH ×2 (11:42→23:25)
[2020-07-05] MEDS: ZINC SULFATE 220 MG CAP PO SCH (11:42)
[2020-07-05] MEDS: ASCORBIC ACID 500 MG TAB PO SCH ×2 (11:42→23:25)
[2020-07-05] MEDS: SERTRALINE 100 MG TAB PO SCH (11:42)
[2020-07-05] MEDS ORDERED: PANTOPRAZOLE 40 MG/10 ML VIAL IVP SCH (11:45)
[2020-07-05] MEDS: ARIPiprazole 5 MG TAB PO SCH ×2 (11:53→23:25)
[2020-07-05] MEDS: ALBUTEROL HFA INHALER INHALATION SCH ×3 (13:18→20:54)
[2020-07-05] MEDS: CHOLECALCIFEROL 25 MCG (1000 IU) TABLET PO SCH (13:19)
[2020-07-05] MEDS: HEPARIN SOD,PORK IN 0.45% NACL 25,000 UNIT in 0.45% NACL 1 250ML.BAG IV SCH (14:56)
[2020-07-05 14:59] LABS: Basophils % (A) 0 %; Eosinophils % (A) 0 %; HCT 37.2 % (39.0-53.0); HGB 12.9 gm/dL (13.0-17.5); Lymphocytes % (A) 8 %; MCH 29.8 pg (25.0-35.0); MCHC 34.6 g/dL (31.0-37.0); MCV 86.2 fL (80.0-100.0); Mean Platelet Volume 8.2; Monocytes # (A) 0.3 k/uL (0-1.0); Monocytes % (A) 2 %; Neutrophils # (A) 10.9 k/uL (1.3-7.7); Neutrophils % (A) 89 %; Platelet Count 249 k/uL (150-450); RBC 4.32 m/uL (4.30-5.90); RDW 12.7 % (11.5-15.5); WBC 12.3 k/uL (3.8-10.6)
[2020-07-05] MEDS: LEVOFLOXACIN 500MG-D5W PMX 500 MG in DEXTROSE/WATER 1 100ML.BAG IVPB SCH (17:04)
--- NOTE | 2020-07-05 17:36 | PN ---
PROGRESS NOTE DATE OF SERVICE: 07/05/2020 This 59-year-old gentleman who was admitted with significant shortness of breath and acute COVID-19 pneumonia with acute interstitial pneumonia had acute hypoxic respiratory failure. Overnight the patient was mechanically ventilated and intubated. The patient is being closely monitored at this time. The patient was also started on Levophed drip because of hypotension. The patient is also on IV heparin because of elevated troponin; however, the patient also had some slight coffee-ground aspirate from the NG tube. Creatinine is 1.38 and 1.70. The procalcitonin is 0.23. UA shows evidence of some UTI. Past medical history reviewed. REVIEW OF SYSTEMS: Review of systems could not be taken. The patient is mechanically ventilated and sedated. CURRENT MEDICATIONS: Reviewed. They include ventolin, vitamin C, vitamin D3, dexamethasone, heparin, norepinephrine, Protonix, propofol, Zoloft. PHYSICAL EXAMINATION: Patient is mechanically ventilated and sedated. Vital signs are noted. Pulse 75, blood pressure 96/69, respiration 24, temperature normal, pulse ox 90% on mechanical ventilation. HEENT: Conjunctivae normal. NECK: No jugular venous distention. CARDIOVASCULAR SYSTEM: S1, S2 muffled. RESPIRATORY SYSTEM: Breath sounds diminished at the bases. A few scattered rhonchi and crackles. ABDOMEN: Soft, obese. LEGS: No edema. No swelling. NERVOUS SYSTEM: No focal deficit. LABS: WBC 12.3, hemoglobin 12.9, sodium 134. ASSESSMENT: 1. Acute COVID-19 pneumonia with bilateral significant interstitial pneumonia, left more than the right, with acute hypoxic respiratory failure, on mechanical ventilation. 2. Possible acute urinary tract infection with possible sepsis, present on admission. 3. Acute renal failure with acute tubular necrosis, prerenal, acute renal factors. 4. Hyponatremia. 5. Elevated D-dimer. 6. Elevated bilirubin, AST, ALT, possibly secondary to COVID hepatitis. 7. Elevated LDH. 8. Troponin 1.270, possible acute dzo-KD-wfcufte-elevation myocardial infarction. 9. Possible acute gastrointestinal bleed with coffee-ground aspirate. 10.Hypertension. 11.Degenerative joint disease. 12.Sleep apnea. 13.History of legal blindness. 14.Polypectomy. 15.Anxiety, bipolar, depression, schizophrenia. 16.Obesity with body mass index 34.3. 17.FULL CODE. RECOMMENDATIONS AND DISCUSSION: I recommend to continue current medications, continue with the monitoring, symptomatic treatment. Otherwise, at this time I recommend continuing the mechanical ventilation. I would also recommend a course of antibiotics. Obtain cultures. I would also recommend holding heparin if it is okay with Cardiology because of the high risk of bleeding. Protonix twice daily. Closely monitor. Continue the rest of the medications. Prognosis is extremely guarded because of multiple complex medical issues. Further recommendations to follow. The patient is started on dexamethasone. Would also recommend infectious disease evaluation per Dr. Finley as well. A copy of this dictation is being forwarded to Dr. Frankel, who is the primary physician. Will closely monitor the patient in the ICU. MMODL / IJN: [id number] /
[2020-07-05] MEDS ORDERED: SODIUM CHLORIDE 0.9% IVPB ONE (19:05)
[2020-07-05] MEDS ORDERED: VANCOMYCIN IV PER PHARMACY 1 EACH MISC MISCELLANE PRN (19:05)
[2020-07-05] MEDS ORDERED: VANCOMYCIN IVPB ONE (19:05)
[2020-07-05] MEDS ORDERED: VANCOMYCIN 1,750 MG in SODIUM CHLORIDE 0.9% 500 ML 500 ML IVPB ONE (19:30)
[2020-07-05] MEDS: PANTOPRAZOLE 40 MG/10 ML VIAL IVP SCH (23:25)
[2020-07-06 04:09] LABS: Ferritin 1464.2 ng/mL (22.0-322.0)
[2020-07-06 06:23] LABS: ABG HCO3 24 mmol/L (21-25); ABG Oxygen Saturation 91.5 % (94-97); ABG PCO2 42 mmHg (35-45); ABG PH 7.37 (7.35-7.45); ABG PO2 63 mmHg (83-108); ABG TCO2 26 mmol/L (19-24); Allen Test Performed? Yes
[2020-07-06] MEDS: ALBUTEROL HFA INHALER INHALATION SCH ×3 (07:32→20:45)
--- NOTE | 2020-07-06 08:44 | XR ---
EXAMINATION TYPE: XR chest 1V portable DATE OF EXAM: 07/06/2020 COMPARISON: 07/05/2020 INDICATION: Previous abnormal TECHNIQUE: Single frontal view of the chest is obtained. Image is semiupright position FINDINGS: The heart size is normal. The pulmonary vasculature is normal. Patchy bilateral infiltrates are present greater on the left. Findings have improved over the interva l. Endotracheal tube tip is above present. Nasogastric tube transverses thorax IMPRESSION: 1. Improving bilateral lung infiltrates
[2020-07-06] MEDS ORDERED: VANCOMYCIN 1,750 MG in SODIUM CHLORIDE 0.9% 500 ML 500 ML IVPB SCH ×2 (09:00→21:00)
--- NOTE | 2020-07-06 09:31 | P.PN ---
Subjective Progress Note Date: 07/06/20 Principal diagnosis: Abnormal cardiac enzymes This is a 59-year-old gentleman who was diagnosed with sepsis related to COVID- 19 infection and pneumonia and developed acute hypoxic respiratory failure. We consulted to see the patient mainly because of abnormal cardiac enzymes. The patient was seen today again in the emergency department in trauma 1 the room. Unfortunately overall he is not doing well. He still hypoxic on respiratory failure and requiring more oxygen. He still have a lot of secretions. He is also on the top of that and is stable and requiring norepinep hrine. He has been maintaining normal sinus mechanism. An echocardiogram was performed and still pending at this point. Overall the prognosis seems to be very poor. The troponin went above 1. Currently he is on heparin IV. I'm going to add aspirin to the current medical regimen. The echocardiogram is in process to be done. Objective - Vital Signs Vital signs: Vital Signs Temp 98.0 F 07/05/20 07:23 Pulse 96 07/06/20 09:00 Resp 30 H 07/06/20 09:00 BP 125/74 07/06/20 09:00 Pulse Ox 75 L 07/06/20 09:00 Intake & Output 07/05/20 07/06/20 07/06/20 18:59 06:59 18:59 Intake Total 452.415 3857.769 92.873 Output Total 190 1050 1300 Balance 462.604 963.769 -1207.127 Weight 117.934 kg Intake: Intake, IV Titration 735.206 0071.769 92.873 Amount Heparin Sod,Pork in 0.45% 89.983 NaCl 25,000 unit In 0.45 % NaCl 1 250ml.bag @ 8.4 UNITS/KG/HR 9.906 mls/hr IV .Q24H [facility] Rx#: [id number] Levofloxacin 500Mg-D5w 100 Pmx 500 mg In Dextrose/ Water 1 100ml.bag @ 100 mls/hr IVPB Q24H [facility] Rx#: [id number] Norepinephrine 4 mg In 80.878 245.105 Sodium Chloride 0.9% 250 ml @ 0.05 MCG/KG/MIN 22. 466 mls/hr IV .[id number] [facility] Rx#:[id number] Sodium Chloride 0.9% 1, 640 000 ml @ 80 mls/hr IV . [id number] [facility] Rx#:[id number] Sodium Chloride 0.9% 1, 400 000 ml @ 999 mls/hr IV . Q1H1M [facility] Rx#:[id number] Tocilizumab 800 mg In 100 Sodium Chloride 0.9% 60 ml @ 100 mls/hr IV ONCE ONE Rx#:[id number] Vancomycin 1,750 mg In 200 Sodium Chloride 0.9% 500 ml 500 ml @ 167 mls/hr IVPB ONCE ONE Rx#: [id number] propofoL 1,000 mg In 481.743 328.664 92.873 Empty Bag 1 bag @ Titrate IV .Q0M [facility] Rx#: [id number] Output: Gastric Drainage 100 Urine [id number] - Labs CBC & Chem 7: 07/05/20 14:16 07/06/20 04:44 Labs: Abnormal Lab Results - Last 24 Hours (Table) 07/04/20 07/05/20 07/05/20 Range/Units 19:14 14:16 14:16 WBC 12.3 H (3.8-10.6) k/uL Hgb 12.9 L (13.0-17.5) gm/dL Hct 37.2 L (39.0-53.0) % Neutrophils # 10.9 H (1.3-7.7) k/uL APTT 46.9 H (22.0-30.0) sec ABG pO2 (83-108) mmHg ABG Total CO2 (19-24) mmol/L ABG O2 Saturation (94-97) % Ferritin 1464.2 H (22.0-322.0) ng/mL Troponin I (0.000-0.034) ng/mL 07/05/20 07/06/20 Range/Units 14:16 06:20 WBC (3.8-10.6) k/uL Hgb (13.0-17.5) gm/dL Hct (39.0-53.0) % Neutrophils # (1.3-7.7) k/uL APTT (22.0-30.0) sec ABG pO2 63 L (83-108) mmHg ABG Total CO2 26 H (19-24) mmol/L ABG O2 Saturation 91.5 L (94-97) % Ferritin (22.0-322.0) ng/mL Troponin I 0.527 H* (0.000-0.034) ng/mL Microbiology - Last 24 Hours (Table) 07/04/20 19:14 Blood Culture Gram Stain - Preliminary Blood Blood Culture - Preliminary Coagulase Negative Staph 07/05/20 16:50 Urine Culture - Preliminary Urine,Catheterized 07/04/20 19:38 Blood Culture - Preliminary Blood No Growth after 24 hours 07/04/20 19:14 Blood Culture - Final Blood Assessment and Plan Assessment: Assessment #1 sepsis with covid-19 #2 acute hypoxic respiratory failure secondary to above #3 hypotension secondary to the above #4 abnormal troponin #5 multiple comorbid conditions Plan #1 consider conservative approach for the mildly abnormal troponin which is likely secondary to sepsis and hypotension #2 continue heparin IV #3 start the patient on aspirin #4 follow-up on the echocardiogram
[2020-07-06] MEDS: SODIUM CHLORIDE 0.9% 1,000 ML IV SCH ×2 (10:36→22:49)
--- NOTE | 2020-07-06 12:23 | P.PN ---
Subjective Progress Note Date: 07/06/20 Principal diagnosis: COVID 19 infection. This is a 59-year-old male who presented to the emergency department and apparently tested positive for COVID 8 days ago. The patient has apparently been sick for about 10 days. His complaints included weakness and difficulty breathing. In addition, the patient had cough. Patient apparently denied fever, headache, pain, or other complaints initially. Patient is legally blind. The patient did not receive the coronavirus vaccination. Apparently, in the emergency department, his respiratory status declined, and he was intubated. The patient on the volume assist control mode rate of 24, breathing 30 times a minute, tidal volume 450, FiO2 100%, PEEP of 5 being increased to 10. Arterial blood gases show pO2 75, pCO2 33, pH is 7.44. He is receiving propofol at 30 mcg/kg/m, heparin via weightbase protocol, and saline at 20 mL an hour. The patient has a history of hypertension, heart posterior arthritis, sleep apnea, and is legally blind. Chest x-ray shows diffuse bilateral infiltrates. White count 6.3, hemoglobin 12.5, hematocrit 36.8, platelet count 216,000. PTT is 35.4. D-dimer 0.68. Sodium 134, potassium 4.3, chlorides 100, CO2 23, anion gap 11, BUN 39, creatinine 1.70. Troponins were 1.270 and 0.997. C-reactive protein is 261, N-terminal proBNP 4540. Pro-calcitonin is 0.23. Urine is negative both for nitrite and leukocyte esterase. Occasional bacteria, and few white blood cell clumps. Progress note dated 07/06/2020. This is a 59-year-old male, who we saw in the emergency department yesterday in consultation. He tested positive for coronavirus, 9 days prior. He been sick for about 10 days. His complaints apparently included weakness, and difficulty breathing. In addition, he had cough. In the emergency department, his respiratory status declined, and he was intubated by the ER physician. He remains on the mechanical ventilator in the emergency department. His vent settings include volume assist control, rate 24, tidal volume 450, FiO2 90%, PEEP of 10. Blood gases show pO2 of 63, pCO2 42, and a pH of 7.37. Currently, the patient is propofol 50 g kilogram per minute, norepinephrine at 0.01 mcg/kg/m, and saline at 80 mL an hour. There were no new labs today. Chest x- ray showed bilateral lung infiltrates, that are improving. Objective - Vital Signs Vital signs: Vital Signs Temp 98.0 F 07/05/20 07:23 Pulse 99 07/06/20 10:34 Resp 34 H 07/06/20 10:34 BP 138/81 07/06/20 10:34 Pulse Ox 77 L 07/06/20 10:34 Intake & Output 07/05/20 07/06/20 07/06/20 18:59 06:59 18:59 Intake Total 334.190 4654.769 92.873 Output Total 190 1050 1300 Balance 462.604 963.769 -1207.127 Weight 117.934 kg Intake: Intake, IV Titration 130.781 4224.769 92.873 Amount Heparin Sod,Pork in 0.45% 89.983 NaCl 25,000 unit In 0.45 % NaCl 1 250ml.bag @ 8.4 UNITS/KG/HR 9.906 mls/hr IV .Q24H [facility] Rx#: [id number] Levofloxacin 500Mg-D5w 100 Pmx 500 mg In Dextrose/ Water 1 100ml.bag @ 100 mls/hr IVPB Q24H [facility] Rx#: [id number] Norepinephrine 4 mg In 80.878 245.105 Sodium Chloride 0.9% 250 ml @ 0.05 MCG/KG/MIN 22. 466 mls/hr IV .[id number] [facility] Rx#:[id number] Sodium Chloride 0.9% 1, 640 000 ml @ 80 mls/hr IV . [id number] [facility] Rx#:[id number] Sodium Chloride 0.9% 1, 400 000 ml @ 999 mls/hr IV . Q1H1M [facility] Rx#:[id number] Tocilizumab 800 mg In 100 Sodium Chloride 0.9% 60 ml @ 100 mls/hr IV ONCE [facility] Rx#:[id number] Vancomycin 1,750 mg In 200 Sodium Chloride 0.9% 500 ml 500 ml @ 167 mls/hr IVPB ONCE [facility] Rx#: [id number] propofoL 1,000 mg In 481.743 328.664 92.873 Empty Bag 1 bag @ Titrate IV .Q0M [facility] Rx#: [id number] Output: Gastric Drainage 100 Urine [phone] - Exam Sedated, intubated. Currently on the mechanical ventilator. HEENT examination is grossly unremarkable. An orally placed endotracheal tube is noted. Neck supple. Full range of motion. No adenopathy thyromegaly or neck vein distention. Cardiovascular examination reveals regular rhythm rate. S1-S2 normal. No S3 or S4. No discernible murmur noted. Heart rate 99 bpm. Lungs reveal diffuse coarse rhonchi. No crackles or wheezes. Breath sounds equal bilaterally.. Abdomen soft, without bowel sounds. No masses or tenderness. Extremities are intact. No cyanosis clubbing or edema. Skin is without rash or lesion. Neurologic examination cannot be adequately assessed as the patient's on propofol at 50 mcg/kg/m. - Labs CBC & Chem 7: 07/05/20 14:16 07/06/20 04:44 Labs: Abnormal Lab Results - Last 24 Hours (Table) 07/04/20 07/05/20 07/05/20 Range/Units 19:14 14:16 14:16 WBC 12.3 H (3.8-10.6) k/uL Hgb 12.9 L (13.0-17.5) gm/dL Hct 37.2 L (39.0-53.0) % Neutrophils # 10.9 H (1.3-7.7) k/uL APTT 46.9 H (22.0-30.0) sec ABG pO2 (83-108) mmHg ABG Total CO2 (19-24) mmol/L ABG O2 Saturation (94-97) % Ferritin 1464.2 H (22.0-322.0) ng/mL Troponin I (0.000-0.034) ng/mL 07/05/20 07/06/20 Range/Units 14:16 06:20 WBC (3.8-10.6) k/uL Hgb (13.0-17.5) gm/dL Hct (39.0-53.0) % Neutrophils # (1.3-7.7) k/uL APTT (22.0-30.0) sec ABG pO2 63 L (83-108) mmHg ABG Total CO2 26 H (19-24) mmol/L ABG O2 Saturation 91.5 L (94-97) % Ferritin (22.0-322.0) ng/mL Troponin I 0.527 H* (0.000-0.034) ng/mL Microbiology - Last 24 Hours (Table) 07/04/20 19:14 Blood Culture Gram Stain - Preliminary Blood Blood Culture - Preliminary Coagulase Negative Staph 07/05/20 16:50 Urine Culture - Preliminary Urine,Catheterized 07/04/20 19:38 Blood Culture - Preliminary Blood No Growth after 24 hours 07/04/20 19:14 Blood Culture - Final Blood Assessment and Plan Assessment: Acute hypoxemic respiratory failure, secondary to COVID 19 pneumonia, status post intubation and mechanical ventilation on July 05. History of blindness. History of hypertension. History of DJD. History of sleep apnea syndrome, maintained on CPAP. Lifelong nonsmoker. Plan: Plan dated 07/03/2020. The PEEP was increased from 5 to 10 cm of water. I also had the nurse increase the propofol from 15 up to 30 mcg/kg minute. In addition, I told her that if the blood pressure became low, she could give the patient a couple liters of saline, and if the patient did not respond, start norepinephrine. We'll attempt to make an intensive care bed for the patient as soon as possible. The patient is also a candidate for TOCI. We will also make sure the patient is on appropriate vitamins, and Decadron. Additional recommendations and suggestions are forthcoming. Prognosis is guarded. The patient will probably have an arterial line placed and a central line placed once in the ICU. Plan dated 07/06/2020. The patient remains on the mechanical ventilator. His propofol is now up to 50 mcg/kg/m. He is also on norepinephrine at 0.01 g kilogram per minute. Blood gases are reviewed. Chest x-ray is reviewed. The patient was a candidate for TOCI, and was also a candidate for the usual medications including Decadron, and vitamins. I am waiting to transfer the patient up into the intensive care unit. Unfortunately, we do not have a bed available patient. Additional recommendations suggestions are forthcoming. Prognosis is guarded. X-rays, labs, and medications are all reviewed. Time with Patient: Greater than 30
[2020-07-06] MEDS: DEXAMETHASONE SOD PHOSPHATE 10 MG/ML 1 ML VIAL IV SCH (12:44)
[2020-07-06] MEDS: PANTOPRAZOLE 40 MG/10 ML VIAL IVP SCH ×2 (12:44→20:38)
[2020-07-06] MEDS: ZINC SULFATE 220 MG CAP PO SCH (12:45)
[2020-07-06] MEDS: ASCORBIC ACID 500 MG TAB PO SCH ×2 (12:45→22:49)
[2020-07-06] MEDS: CHOLECALCIFEROL 25 MCG (1000 IU) TABLET PO SCH (12:45)
[2020-07-06] MEDS: ARIPiprazole 5 MG TAB PO SCH ×2 (12:48→22:49)
[2020-07-06] MEDS: SERTRALINE 100 MG TAB PO SCH (12:48)
--- NOTE | 2020-07-06 15:49 | PN ---
PROGRESS NOTE DATE OF SERVICE: 07/06/2020 This 59-year-old gentleman, being followed by Dr. Frankel in the outpatient setting, was admitted with severe acute bilateral COVID-19 pneumonia. The patient had features of acute respiratory failure. Patient is mechanically intubated. The patient also had acute UTI with sepsis. Patient was started on broad-spectrum IV antibiotics. The patient also had some suspected GI bleed. NG tube is inserted at this time. Patient is being closely monitored. Chest x-ray showed bilateral diffuse infiltrate which is very extensive. Dr. Meneses is following the patient. Hemoglobin is maintained at 12.9, down from 14 at the time of admission. Troponin was also elevated up to 1.27. Cardiology evaluation is in progress also. The cultures show coagulase-negative Staph in the blood culture. Past medical history reviewed. Review of systems could not be taken. CURRENT MEDICATIONS: Ventolin, Abilify, aspirin, vitamin D3, Levaquin, vancomycin. PHYSICAL EXAMINATION: Patient is mechanically ventilated and sedated. The pulse is 104, blood pressure 119/65, respiration 27, temperature 98 degrees, pulse ox 96% on mechanical ventilation. Vent settings are noted. HEENT: Conjunctivae normal. NECK: No jugular venous distention. CARDIOVASCULAR SYSTEM: S1, S2 muffled. RESPIRATORY SYSTEM: Breath sounds diminished at the bases. A few scattered rhonchi. ABDOMEN: Soft. NERVOUS SYSTEM: Patient is mechanically ventilated and sedated. LABS: WBC 12.3, hemoglobin 12.9. ABGs are noted. Troponin is noted. ASSESSMENT: 1. Acute COVID-19 pneumonia with bilateral interstitial pneumonia, left more than the right, with acute hypoxic respiratory, on mechanical ventilation. 2. Acute urinary tract infection with possible sepsis, present on admission. 3. Coagulase-negative Staph from the blood. 4. Acute renal failure with acute tubular necrosis, prerenal, and acute renal failure. 5. Possible upper gastrointestinal bleeding with coffee-ground material in the NG tube. 6. Hyponatremia. 7. Elevated D-dimer. 8. Elevated bilirubin, AST and ALT, possibly secondary to COVID-19 hepatitis. 9. Increased LDH. 10.Troponin 1.270, possible acute dvv-ML-fcphvfq-elevation myocardial infarction. 11.Hypertension. 12.Degenerative joint disease. 13.Sleep apnea. 14.History of legal blindness. 15.Polypectomy. 16.Anxiety, bipolar, depression, schizophrenia. 17.Obesity with body mass index of 34.6. 18.FULL CODE. RECOMMENDATIONS AND DISCUSSION: I recommend to continue current medications, continue with the monitoring, symptomatic treatment. Mechanical ventilation mechanical ventilation settings are adjusted by Dr. Meneses. The PEEP was increased at this time. The patient has got hypoxia. I would also recommend close followup with Infectious Disease as well as Cardiology because of the associated medical issues. Once again, the prognosis is extremely guarded. Further recommendations to follow. Will stop the IV heparin at this time because of the possibility of bleeding. We will continue to consult Pulmonology. Otherwise, we will continue the rest of the medications. The prognosis is extremely guarded. Further recommendations to follow. MMMUSTAPHAL / IJN: [id number] / [place]
--- NOTE | 2020-07-06 17:01 | ECHOF ---
Referral Reason:chf MEASUREMENTS -------- HEIGHT: 182.9 cm WEIGHT: 117.9 kg BP: 109/86 IVSd: 1.4 cm (0.6 - 1.1) LVIDd: 3.9 cm (3.9 - 5.3) LVPWd: 1.6 cm (0.6 - 1.1) EDV(Teich): 64 ml IVSs: 2.2 cm LVIDs: 2.6 cm LVPWs: 1.7 cm %IVS Thck: 54 % ESV(Teich): 24 ml EF(Teich): 63 % %FS: 34 % SV(Teich): 40 ml RVIDd: 4.4 cm (< 3.3) LALs A4C: 5.2 cm LAAs A4C: 19.9 cm LAESV A-L A4C: 64 ml LAESV MOD A4C: 57 ml Ao Diam: 3.7 cm (2.0 - 3.7) LA Diam: 2.8 cm (2.7 - 3.8) AV Cusp: 2.7 cm (1.5 - 2.6) EPSS: 0.3 cm MV E Parrish: 0.78 m/s MV DecT: 206 ms MV Dec Kaufman: 3.8 m/s MV A Parrish: 0.74 m/s MV E/A Ratio: 1.05 MV PHT: 60 ms LVOT Vmax: 0.94 m/s LVOT maxP.56 mmHg AV Vmax: 1.07 m/s AV maxP.57 mmHg TR Vmax: 2.45 m/s TR maxP.08 mmHg RAP: 5.00 mmHg RVSP: 29.08 mmHg MV EF SLOPE: 54.81 mm/s (70 - 150) MV EXCURSION: 18.44 mm (> 18.000) FINDINGS -------- Sinus rhythm. This was a technically adequate study. Pt. on a vent. The left ventricular size is normal. There is moderate concentric left ventricular hypertrophy. O verall left ventricular systolic function is normal with, an EF between 55 - 60 %. The right ventricle is severely enlarged. The left atrial size is normal. The right atrium was not well visualized. Interatrial and interventricular septum intact. There is no evidence of aortic regurgitation. There is no evidence of aortic stenosis. No mitral regurgitation. Mild tricuspid regurgitation present. There is no evidence of pulmonary hypertension. The right v entricular systolic pressure, as measured by Doppler, is 29.08mmHg. There is no pulmonic regurgitation present. The aortic root size is normal. IVC Not well visulized. There is no pericardial effusion. CONCLUSIONS -------- 1. The left ventricular size is normal. 2. There is moderate concentric left ventricular hypertrophy. 3. Overall left ventricular systolic function is normal with, an EF between 55 - 60 %. 4. The right ventricle is severely enlarged. 5. Mild tricuspid regurgitation present. [employer]ER: Chandni Paez RDCS
[2020-07-06] MEDS: LEVOFLOXACIN 500MG-D5W PMX 500 MG in DEXTROSE/WATER 1 100ML.BAG IVPB SCH (20:24)
[2020-07-06] MEDS ORDERED: IPRATROPIUM-ALBUTEROL 3 ML NEB INHALATION PRN (21:31)
[2020-07-06] MEDS: NOREPINEPHRINE 4 MG in SODIUM CHLORIDE 0.9% 250 ML IV SCH ×2 (22:46→22:47)
--- NOTE | 2020-07-07 05:32 | PN ---
PROGRESS NOTE DATE OF SERVICE: 07/06/2020 REASON FOR FOLLOWUP: 1. Pneumonia. 2. Positive blood culture. INTERVAL HISTORY: The patient remains to be intubated on the vent. The patient is hemodynamically stable, not on pressor support. However, the patient is requiring 100% FiO2. No significant purulent secretions through the ET or diarrhea per the nursing staff. PHYSICAL EXAMINATION: Blood pressure 116/70 with a pulse of 94, temperature 98.3, he is 87% on 100% FiO2. General description is a middle-aged male intubated on the vent. Respiratory system: Unlabored breathing, decreased intensity of breath sounds. No wheeze. HEART: S1, S2. Regular rate and rhythm. ABDOMEN: Soft, no tenderness. LABS: Hemoglobin is 12.1, white count 12.3. Lactic acid down to 1.7. Creatinine 1.06. Troponin elevated. Blood culture with coagulase negative staph. Sputum cultures requested but unfortunately not done. DIAGNOSTIC IMPRESSION AND PLAN: Patient with acute respiratory failure which is multifactorial who did have a COVID-19 infection, now with concern for possible ARDS Patient did receive a dose of Actemra and is currently covered with ascorbic acid, dexamethasone, zinc to continue. Will try to obtain a sputum. Positive blood culture with coagulase negative staph likely skin contaminant. Discontinue vancomycin and monitor clinical course closely. MMODL / IJN: [id number] / MTDD
[2020-07-07 06:00] LABS: ABG Base Excess -4.8 mmol/L; ABG HCO3 23 mmol/L (21-25); ABG Oxygen Saturation 98.3 % (94-97); ABG PCO2 55 mmHg (35-45); ABG PH 7.22 (7.35-7.45); ABG PO2 135 mmHg (83-108); ABG TCO2 25 mmol/L (19-24); Allen Test Performed? Yes
[2020-07-07 06:20] LABS: Albumin 3.1 g/dL (3.5-5.0); Calcium 7.5 mg/dL (8.4-10.2); Magnesium 2.6 mg/dL (1.6-2.3); Phosphorus 6.5 mg/dL (2.5-4.5); Potassium 5.9 mmol/L (3.5-5.1); Total Bilirubin 1.4 mg/dL (0.2-1.3)
[2020-07-07 06:23] LABS: Fibrinogen 144 mg/dL (200-500)
[2020-07-07 06:32] LABS: C Reactive Protein 147.1 mg/L (<10.0)
[2020-07-07 06:36] LABS: D-Dimer >34.10 mg/L FEU (<0.60)
[2020-07-07 06:38] LABS: HCT 39.5 % (39.0-53.0); HGB 13.7 gm/dL (13.0-17.5); MCH 30.4 pg (25.0-35.0); MCHC 34.7 g/dL (31.0-37.0); MCV 87.7 fL (80.0-100.0); Mean Platelet Volume 8.5; RBC 4.51 m/uL (4.30-5.90); RDW 12.8 % (11.5-15.5); WBC 18.2 k/uL (3.8-10.6)
[2020-07-07 06:53] LABS: Band Neutrophils % 6 %; Lymphocytes # (M) 0.18 k/uL (1.0-4.8); Monocytes # (M) 0.36 k/uL (0-1.0); Neutrophils % (M) 91 %; Nucleated Red Blood Cells 0 /100 WBC (0-0); Total Cells Counted 100
[2020-07-07 06:56] LABS: Platelet Count 110 k/uL (150-450)
--- NOTE | 2020-07-07 07:19 | XR ---
EXAMINATION TYPE: XR chest 1V portable DATE OF EXAM: 07/07/2020 COMPARISON: 07/06/2020 HISTORY: SOB, Follow Up FINDINGS: Indwelling tubes and catheters are unchanged. Scattered airspace infiltrates are stable. Stable appearance of the cardio-mediastinal structures at this time. Pleural effusion unchanged. IMPRESSION: 1. Stable portable chest. Clinical correlation and follow up until resolution is recommended.
--- NOTE | 2020-07-07 08:24 | P.PN ---
Subjective Progress Note Date: 07/07/20 Principal diagnosis: Abnormal cardiac enzymes This is a 59-year-old gentleman who was diagnosed with sepsis related to COVID- 19 infection and pneumonia and developed acute hypoxic respiratory failure. We consulted to see the patient mainly because of abnormal cardiac enzymes. The patient was seen today of breath 2020. He continues to be intubated on mechanical ventilation and continues to be in acute hypoxic respiratory failure. He did have a bloody secretions from the NG tube and the heparin was stopped which I would agree on. Currently he is on aspirin only. I advised to stop the aspirin if he continues to have potentially blood from the NG tube. He is hemodynamically stable was marginally low blood pressure. The creatinine seems to be stable at this point. The echo showed normal LV function without any wall motion abnormalities. Objective - Vital Signs Vital signs: Vital Signs Temp 97.2 F L 07/07/20 05:00 Pulse 88 07/07/20 05:00 Resp 24 07/07/20 07:00 BP 94/69 07/07/20 07:00 Pulse Ox 99 07/07/20 07:00 Intake & Output 07/06/20 07/07/20 07/07/20 18:59 06:59 18:59 Intake Total 292.873 972.785 80 Output Total 1800 570 30 Balance -1507.127 402.785 50 Weight 113.8 kg Intake: IV 720 80 Sodium Chloride 0.9% 1, 720 80 000 ml @ 80 mls/hr IV . [id number] PRAFUL Rx#:[id number] Intake, IV Titration 292.873 252.785 Amount Norepinephrine 4 mg In 69.642 Sodium Chloride 0.9% 250 ml @ 0.05 MCG/KG/MIN 22. 466 mls/hr IV .[id number] PRAFUL Rx#:[id number] propofoL 1,000 mg In 292.873 183.143 Empty Bag 1 bag @ Titrate IV .Q0M PRAFUL Rx#: [id number] Output: Urine 1800 570 30 Uretheral (Silva) 235 Other: Voiding Method Indwelling Catheter - Labs CBC & Chem 7: 07/07/20 04:49 07/07/20 04:49 Labs: Abnormal Lab Results - Last 24 Hours (Table) 07/07/20 07/07/20 07/07/20 Range/Units 04:49 04:49 04:49 WBC 18.2 H (3.8-10.6) k/uL Plt Count 110 L D (150-450) k/uL Neutrophils # (Manual) 17.60 H (1.3-7.7) k/uL Lymphocytes # (Manual) 0.18 L (1.0-4.8) k/uL Fibrinogen 144 L (200-500) mg/dL D-Dimer >34.10 H (<0.60) mg/L FEU ABG pH (7.35-7.45) ABG pCO2 (35-45) mmHg ABG pO2 (83-108) mmHg ABG Total CO2 (19-24) mmol/L ABG O2 Saturation (94-97) % Potassium 5.9 H (3.5-5.1) mmol/L Chloride 108 H (98-107) mmol/L Carbon Dioxide 19 L (22-30) mmol/L BUN 52 H (9-20) mg/dL Creatinine 1.55 H (0.66-1.25) mg/dL Glucose 139 H (74-99) mg/dL Calcium 7.5 L (8.4-10.2) mg/dL Phosphorus 6.5 H (2.5-4.5) mg/dL Magnesium 2.6 H (1.6-2.3) mg/dL Total Bilirubin 1.4 H (0.2-1.3) mg/dL AST 250 H (17-59) U/L ALT 695 H (4-49) U/L Lactate Dehydrogenase 2301 H (313-618) U/L Creatine Kinase 444 H (55-170) U/L C-Reactive Protein 147.1 H (<10.0) mg/L Total Protein 6.0 L (6.3-8.2) g/dL Albumin 3.1 L (3.5-5.0) g/dL 07/07/20 Range/Units 05:59 WBC (3.8-10.6) k/uL Plt Count (150-450) k/uL Neutrophils # (Manual) (1.3-7.7) k/uL Lymphocytes # (Manual) (1.0-4.8) k/uL Fibrinogen (200-500) mg/dL D-Dimer (<0.60) mg/L FEU ABG pH 7.22 L (7.35-7.45) ABG pCO2 55 H (35-45) mmHg ABG pO2 135 H (83-108) mmHg ABG Total CO2 25 H (19-24) mmol/L ABG O2 Saturation 98.3 H (94-97) % Potassium (3.5-5.1) mmol/L Chloride (98-107) mmol/L Carbon Dioxide (22-30) mmol/L BUN (9-20) mg/dL Creatinine (0.66-1.25) mg/dL Glucose (74-99) mg/dL Calcium (8.4-10.2) mg/dL Phosphorus (2.5-4.5) mg/dL Magnesium (1.6-2.3) mg/dL Total Bilirubin (0.2-1.3) mg/dL AST (17-59) U/L ALT (4-49) U/L Lactate Dehydrogenase (313-618) U/L Creatine Kinase (55-170) U/L C-Reactive Protein (<10.0) mg/L Total Protein (6.3-8.2) g/dL Albumin (3.5-5.0) g/dL Microbiology - Last 24 Hours (Table) 07/04/20 19:38 Blood Culture - Preliminary Blood No Growth after 48 hours 07/05/20 16:50 Urine Culture - Final Urine,Catheterized Assessment and Plan Assessment: Assessment #1 sepsis with covid-19 #2 acute hypoxic respiratory failure secondary to above #3 hypotension secondary to the above #4 abnormal troponin #5 potential gastrointestinal bleeding Plan #1 consider conservative approach for the mildly abnormal troponin which is likely secondary to sepsis and hypotension #2 I agree about stopping the heparin at this point #3 possible stop the aspirin if she continues to bleed #4 the echo was reviewed and showed normal LV function
[2020-07-07] MEDS: NOREPINEPHRINE 4 MG in SODIUM CHLORIDE 0.9% 250 ML IV SCH (08:28)
[2020-07-07] MEDS: ALBUTEROL HFA INHALER INHALATION SCH ×3 (08:58→22:06)
[2020-07-07] MEDS ORDERED: ASPIRIN 81 MG PO SCH (09:00)
[2020-07-07] MEDS: ASCORBIC ACID 500 MG TAB PO SCH (09:07)
[2020-07-07] MEDS: DEXAMETHASONE SOD PHOSPHATE 10 MG/ML 1 ML VIAL IV SCH (09:07)
[2020-07-07] MEDS: PANTOPRAZOLE 40 MG/10 ML VIAL IVP SCH ×2 (09:07→22:40)
[2020-07-07] MEDS: SERTRALINE 100 MG TAB PO SCH (09:08)
[2020-07-07] MEDS: CHLORHEXIDINE GLUCONATE 15 ML CUP MUCOUS MEM SCH ×2 (09:08→22:40)
[2020-07-07] MEDS: ZINC SULFATE 220 MG CAP PO SCH (09:08)
[2020-07-07] MEDS: CHOLECALCIFEROL 25 MCG (1000 IU) TABLET PO SCH (09:08)
[2020-07-07] MEDS: ARIPiprazole 5 MG TAB PO SCH (09:09)
[2020-07-07] MEDS ORDERED: CISATRACURIUM 2 MG/ML 5 ML VIAL IV ONE (09:25)
--- NOTE | 2020-07-07 10:16 | PCN ---
PROCEDURE NOTE PULMONARY/CRITICAL CARE PROCEDURE NOTE: PROCEDURES: 1. Right femoral arterial line. 2. Right femoral triple-lumen catheter. OPERATORS: Dr. Meneses and Dr. Roberts. There was informed consent and universal timeout on both of these. ARTERIAL LINE PLACEMENT: PREOPERATIVE DIAGNOSES: Frequent blood gases and blood gas monitoring. POSTOPERATIVE DIAGNOSES: Frequent blood gases and blood gas monitoring. Indications: Hemodynamic monitoring. A time-out was completed verifying correct patient, procedure, site, positioning, and implant(s) or special equipment if applicable. Jasper's test was performed to ensure adequate perfusion. The patient's right groin was prepped and draped in sterile fashion. 1% Lidocaine was used to anesthetize the area. An 18G Arrow arterial line was introduced into the right femoral artery. The catheter was threaded over the guide wire and the needle was removed with appropriate pulsatile blood return. Blood loss was minimal. The catheter was then sutured in place to the skin and a sterile dressing applied. Perfusion to the extremity distal to the point of catheter insertion was checked and found to be adequate. The patient tolerated the procedure well and there were no complications. There was no immediate complication. There was good waveform and blood pressure reading. The catheter was sutured in place. Sterile dressing was applied by the nurse. There was no immediate complication. TRIPLE LUMEN CATHETER PLACEMENT: PREOPERATIVE DIAGNOSIS: Administration of fluids and pressors. POSTOPERATIVE DIAGNOSIS: Administration of fluids and pressors. Indication: Hemodynamic monitoring/Intravenous access. A time-out was completed verifying correct patient, procedure, site, positioning, and implant(s) or special equipment if applicable. The patient was placed in a dependent position appropriate for triple lumen catheter placement based on the vein to be cannulated. The patient's right groin was prepped and draped in sterile fashion. 1% Lidocaine was used to anesthetize the surrounding skin area. A triple lumen 9F Cordis catheter was introduced into the right common femoral vein using Seldinger technique. The catheter was threaded smoothly over the guide wire and appropriate blood return was obtained. Each lumen of the catheter was evacuated of air and flushed with sterile saline. The catheter was then sutured in place to the skin and a sterile dressing applied. Perfusion to the extremity distal to the point of catheter insertion was checked and found to be adequate. These was informed consent and universal timeout. The right femoral triple-lumen catheter was placed. There was no immediate complication. There was good blood return from all 3 ports. The catheter was sutured in place. Sterile dressing was applied by the nurse. There was no immediate complication. GIAN / RALFN: [id number] /
[2020-07-07 11:33] LABS: Glucose,Whole Blood 148 mg/dL (75-99)
[2020-07-07 12:45] LABS: Ferritin 5795.4 ng/mL (22.0-322.0)
--- NOTE | 2020-07-07 13:25 | P.PN ---
Subjective Progress Note Date: 07/07/20 Principal diagnosis: Acute hypoxemic respiratory failure secondary to acute CoVID 19 pneumonia/pneumonitis This is a 59-year-old male who presented to the emergency department and apparently tested positive for COVID 8 days ago. The patient has apparently been sick for about 10 days. His complaints included weakness and difficulty breathing. In addition, the patient had cough. Patient apparently denied fever, headache, pain, or other complaints initially. Patient is legally blind. The patient did not receive the coronavirus vaccination. Apparently, in the emergency department, his respiratory status declined, and he was intubated. The patient on the volume assist control mode rate of 24, breathing 30 times a minute, tidal volume 450, FiO2 100%, PEEP of 5 being increased to 10. Arterial blood gases show pO2 75, pCO2 33, pH is 7.44. He is receiving propofol at 30 mcg/kg/m, heparin via weightbase protocol, and saline at 20 mL an hour. The patient has a history of hypertension, heart posterior arthritis, sleep apnea, and is legally blind. Chest x-ray shows diffuse bilateral infiltrates. White count 6.3, hemoglobin 12.5, hematocrit 36.8, platelet count 216,000. PTT is 35.4. D-dimer 0.68. Sodium 134, potassium 4.3, chlorides 100, CO2 23, anion gap 11, BUN 39, creatinine 1.70. Troponins were 1.270 and 0.997. C-reactive protein is 261, N-terminal proBNP 4540. Pro-calcitonin is 0.23. Urine is negative both for nitrite and leukocyte esterase. Occasional bacteria, and few white blood cell clumps. Patient seen today 07/07/2020 in follow-up in the intensive care unit. He remains intubated on mechanical ventilator assist control mode. Rate of 24, tidal volume 450, FiO2 100% and a PEEP of 15. Morning blood gases reveal a pO2 135, pCO2 55, pH 7.22. He remains sedated on propofol at 60 mcg/kg/m. Norepinephrine at 0.03 mcg/kg/m. 0.9 normal saline at 80 MLS per hour. Tube feedings have not been initiated yet due to increased output from the NG tube which is coffee-ground in color. Blood cultures reveal no growth. Urine culture reveal no growth. Sputum cultures pending. White count 18.2. Hemoglobin 13.7. Platelet count 110. D-dimer greater than 34. Sodium 137. Potassium 5.9. Creatinine 1.55. Ferritin 5795. LDH 2301. C-reactive protein 147. Glucose 148. He is continued on bronchodilators, dexamethasone, vitamin supplements. He remains on Levaquin. Chest x-ray reveals scattered airspace infiltrates bilaterally. Unchanged. He did receive Tocilizumab. Objective - Vital Signs Vital signs: Vital Signs Temp 97.2 F L 07/07/20 05:00 Pulse 98 07/07/20 12:00 Resp 30 H 07/07/20 12:00 BP 103/52 07/07/20 12:00 Pulse Ox 99 07/07/20 12:00 Intake & Output 07/06/20 07/07/20 07/07/20 18:59 06:59 18:59 Intake Total 292.873 972.785 561.866 Output Total 1800 570 675 Balance -1507.127 402.785 -113.134 Weight 113.8 kg Intake: IV 720 480 Sodium Chloride 0.9% 1, 720 480 000 ml @ 80 mls/hr IV . [id number] PRAFUL Rx#:[id number] Intake, IV Titration 292.873 252.785 21.866 Amount Norepinephrine 4 mg In 69.642 21.866 Sodium Chloride 0.9% 250 ml @ 0.05 MCG/KG/MIN 22. 466 mls/hr IV .[id number] PRAFUL Rx#:[id number] propofoL 1,000 mg In 292.873 183.143 Empty Bag 1 bag @ Titrate IV .Q0M PRAFUL Rx#: [id number] Other 60 Output: Urine 1800 570 675 Uretheral (Silva) 235 470 Other: Voiding Method Indwelling Catheter Indwelling Catheter - Exam GENERAL EXAM: Intubated, sedated 59-year-old gentleman, on the mechanical ventilator currently on 100% FiO2, in no apparent distress. HEAD: Normocephalic. EYES: Sluggish reaction of pupils, equal size. NOSE: Clear with pink turbinates. THROAT: Oral endotracheal and gastric tube secured in place No erythema or exudates. NECK: No masses, no JVD. CHEST: No chest wall deformity. LUNGS: Equal air entry with crackles in the bilateral posterior bases CVS: S1 and S2 normal with no audible murmur, regular rhythm. ABDOMEN: No hepatosplenomegaly, normal bowel sounds, no guarding or rigidity. SPINE: No scoliosis or deformity SKIN: No rashes CENTRAL NERVOUS SYSTEM: Sedated. No focal deficits, tone is normal in all 4 extremities. EXTREMITIES: There is no peripheral edema. No clubbing, no cyanosis. Peripheral pulses are intact. - Labs CBC & Chem 7: 07/07/20 04:49 07/07/20 04:49 Labs: Abnormal Lab Results - Last 24 Hours (Table) 07/07/20 07/07/20 07/07/20 Range/Units 04:49 04:49 04:49 WBC 18.2 H (3.8-10.6) k/uL Plt Count 110 L D (150-450) k/uL Neutrophils # (Manual) 17.60 H (1.3-7.7) k/uL Lymphocytes # (Manual) 0.18 L (1.0-4.8) k/uL Fibrinogen 144 L (200-500) mg/dL D-Dimer >34.10 H (<0.60) mg/L FEU ABG pH (7.35-7.45) ABG pCO2 (35-45) mmHg ABG pO2 (83-108) mmHg ABG Total CO2 (19-24) mmol/L ABG O2 Saturation (94-97) % Potassium 5.9 H (3.5-5.1) mmol/L Chloride 108 H (98-107) mmol/L Carbon Dioxide 19 L (22-30) mmol/L BUN 52 H (9-20) mg/dL Creatinine 1.55 H (0.66-1.25) mg/dL Glucose 139 H (74-99) mg/dL POC Glucose (mg/dL) (75-99) mg/dL Calcium 7.5 L (8.4-10.2) mg/dL Phosphorus 6.5 H (2.5-4.5) mg/dL Magnesium 2.6 H (1.6-2.3) mg/dL Ferritin 5795.4 H (22.0-322.0) ng/mL Total Bilirubin 1.4 H (0.2-1.3) mg/dL AST 250 H (17-59) U/L ALT 695 H (4-49) U/L Lactate Dehydrogenase 2301 H (313-618) U/L Creatine Kinase 444 H (55-170) U/L C-Reactive Protein 147.1 H (<10.0) mg/L Total Protein 6.0 L (6.3-8.2) g/dL Albumin 3.1 L (3.5-5.0) g/dL 07/07/20 07/07/20 Range/Units 05:59 11:30 WBC (3.8-10.6) k/uL Plt Count (150-450) k/uL Neutrophils # (Manual) (1.3-7.7) k/uL Lymphocytes # (Manual) (1.0-4.8) k/uL Fibrinogen (200-500) mg/dL D-Dimer (<0.60) mg/L FEU ABG pH 7.22 L (7.35-7.45) ABG pCO2 55 H (35-45) mmHg ABG pO2 135 H (83-108) mmHg ABG Total CO2 25 H (19-24) mmol/L ABG O2 Saturation 98.3 H (94-97) % Potassium (3.5-5.1) mmol/L Chloride (98-107) mmol/L Carbon Dioxide (22-30) mmol/L BUN (9-20) mg/dL Creatinine (0.66-1.25) mg/dL Glucose (74-99) mg/dL POC Glucose (mg/dL) 148 H (75-99) mg/dL Calcium (8.4-10.2) mg/dL Phosphorus (2.5-4.5) mg/dL Magnesium (1.6-2.3) mg/dL Ferritin (22.0-322.0) ng/mL Total Bilirubin (0.2-1.3) mg/dL AST (17-59) U/L ALT (4-49) U/L Lactate Dehydrogenase (313-618) U/L Creatine Kinase (55-170) U/L C-Reactive Protein (<10.0) mg/L Total Protein (6.3-8.2) g/dL Albumin (3.5-5.0) g/dL Microbiology - Last 24 Hours (Table) 07/07/20 00:01 Sputum Culture - Preliminary Sputum 07/04/20 19:14 Blood Culture Gram Stain - Final Blood Blood Culture - Final Coagulase Negative Staph 07/04/20 19:38 Blood Culture - Preliminary Blood No Growth after 48 hours 07/05/20 16:50 Urine Culture - Final Urine,Catheterized Assessment and Plan Assessment: 1 Acute hypoxemic respiratory failure secondary to acute CoVID 19 pne umonia/pneumonitis requiring mechanical ventilation on 07/05/2020. Received a tocilizumab. 2 Elevated inflammatory markers secondary to above 3 History of obstructive sleep apnea, maintained on CPAP 4 History of blindness 5 Hypertension, history of 6 Osteoarthritis Plan: The patient was seen and evaluated by Dr. Meneses Chest x-ray, ABGs and labs reviewed Increase respiratory rate to 30, decrease FiO2 to 80% Central line, arterial line placed D-dimer greater than 34 Lovenox 50 mg subcutaneous twice a day Observe for any signs bleeding Continue dexamethasone, vitamin supplements Received tocilizumab We'll continue to follow and make further recommendations based on his clinical status Critical care time 38 minutes, not including procedures I, the cosigning physician, performed a history & physical examination of the patient. Lungs sounds with bilateral crackles. Maintaining good O2 saturations in the 90s on 80% FiO2 and PEEP of 15 via the mechanical ventilator. I discussed the assessment and plan of care with my nurse practitioner, Zoë Roberts. I attest to the above note as dictated by her.
--- NOTE | 2020-07-07 14:44 | US ---
EXAMINATION TYPE: US venous doppler duplex UE LT DATE OF EXAM: 07/07/2020 COMPARISON: NONE CLINICAL HISTORY: Cold dusky left hand, Elevated d dimer. blue left fingers, swelling, h/o multiple I V's in left arm, covid IU patient. SIDE PERFORMED: Left Left Arm: Negative for DVT cephalic and basilic vein would not compress with internal echoes and no blood flow detected within upper arm and forearm. IMPRESSION: No evidence for DVT. Superficial vein thrombosis.
[2020-07-07] MEDS: HYDROmorphone 0.5 MG/0.5 ML SYRINGE IVP PRN (15:34)
[2020-07-07] MEDS: NOREPINEPHRINE 8 MG in SODIUM CHLORIDE 0.9% 250 ML IV SCH (15:52)
[2020-07-07] MEDS: SODIUM CHLORIDE 0.9% 1,000 ML IV SCH (16:00)
[2020-07-07] MEDS: LEVOFLOXACIN 500MG-D5W PMX 500 MG in DEXTROSE/WATER 1 100ML.BAG IVPB SCH (16:44)
[2020-07-07 17:40] LABS: Glucose,Whole Blood 97 mg/dL (75-99)
[2020-07-07] MEDS: SUCRALFATE 1 GM TAB PO SCH ×2 (17:47→22:40)
--- NOTE | 2020-07-07 18:52 | PN ---
PROGRESS NOTE DATE OF SERVICE: 07/07/2020 INTERVAL HISTORY: This is a 59-year-old gentleman who was followed by Dr. Frankel in the outpatient setting was admitted with acute bilateral COVID-19 pneumonia. The patient also had acute respiratory failure. Patient mechanically intubated and sedated. Patient also had suspected acute [id number]-elevation myocardial infarction. Multiple consultants are following the patient closely. The patient also had possible GI bleed and the patient had coffee-ground material coming out of the NG tube. Because of this, heparin and Lovenox is on hold at this time. Patient is being closely monitored in the ICU. Patient is also started on broad-spectrum IV antibiotics. The blood cultures showing coag-negative staph. The patient also had elevated procalcitonin. COVID-19 positive. PAST MEDICAL HISTORY: Reviewed. REVIEW OF SYSTEM: Could not be taken. The patient mechanically ventilated and sedated. CURRENT MEDICATIONS: Reviewed include Ventolin, Abilify, vitamin C, aspirin, Peridex, vitamin D3, dexamethasone and Levaquin. Doses reviewed. PHYSICAL EXAM: Patient is mechanically sedated. Pulse is 98, blood pressure 104/50, respiration 32, temperature normal, pulse ox 80% on mechanical. Vent settings are noted. HEENT: Conjunctivae normal. Oral mucosa moist. NECK: No jugular venous distention. No carotid bruits. No lymph node enlargement. RESPIRATORY: Breath sounds diminished at the bases. A few scattered crackles. HEART: S1 and S2, muffled. ABDOMEN: Soft, obese. EXTREMITIES: No edema, no swelling. NERVOUS: Mechanically ventilated and sedated. LABS: WBC 18.2, hemoglobin 13.7. Otherwise other labs are noted. Potassium 5.9. Creatinine 1.5. ASSESSMENT: 1. Acute COVID-19 interstitial pneumonia, bilateral, left more than the right with acute hypoxic respiratory failure, on mechanical ventilation. 2. Acute urinary tract infection with possible sepsis present on admission. 3. Coag-negative Staph from the blood. 4. Acute renal failure with acute tubular necrosis, prerenal with acute renal failure. 5. Hyperkalemia. 6. Upper GI bleeding possibly with coffee-ground material from the NG tube. 7. Hyponatremia. 8. Elevated D-dimer. 9. Elevated bilirubin, AST, ALT, possibly secondary to COVID-19 hepatitis. 10.Increased LDH. 11.Troponin 1.270, possible acute [id number]-elevation myocardial infarction present on admission, possible from acute COVID-19. 12.Hypertension. 13.Degenerative joint disease. 14.Obstructive sleep apnea. 15.History of legal blindness. 16.Polypectomy. 17.Anxiety, bipolar depression, schizophrenia. 18.Obesity with body mass index of 34.6. 19.FULL CODE. DISCUSSION AND RECOMMENDATIONS: Recommend to continue current management, continue symptomatic treatment. Otherwise at this time I would recommend continue with current medication and continue with mechanical ventilation. Continue with dexamethasone. Hold off anticoagulation now because of the concerns of gastrointestinal bleed. Continue the Protonix 40 mg b.i.d. Follow the cultures. Mechanical ventilation by Dr. Meneses. Also recommend GI consultation also. I would also hold the vitamin C and also recommend aspirin through the rectal route to spare the stomach and I would also order Carafate as well. Prognosis guarded. Further recommendations to follow. See orders for details. Discussed with staff. MMODL / IJN: [id number] /
[2020-07-07] MEDS ORDERED: propofoL 100 ML IV ONE (22:04)
--- NOTE | 2020-07-07 22:23 | PN ---
PROGRESS NOTE DATE OF SERVICE: 07/07/2020 REASON FOR FOLLOWUP: COVID-19 pneumonia. INTERVAL HISTORY: The patient is currently afebrile. The patient is currently on pressor support for his blood pressure. FiO2 is currently 80%. No significant purulent secretions in the ET or any diarrhea or other changes reported by the nursing staff. PHYSICAL EXAMINATION: Blood pressure 107/56, pulse of 90, temperature 99.4. He is 99% on 80% FiO2. General description is a middle-aged male intubated on the vent. RESPIRATORY SYSTEM: Unlabored breathing with decreased intensity of breath sounds. No wheeze. HEART: S1, S2. Regular rate and rhythm. ABDOMEN: Soft. No tenderness. LABS: Hemoglobin is 13, white count 15.2, BUN of 52, creatinine 1.55. Inflammatory markers remain elevated. DIAGNOSTIC IMPRESSION AND PLAN: 1. Patient with acute respiratory failure which is multifactorial in this patient with COVID-19 infection. The patient is on Decadron zinc and ascorbic acid along with respiratory support. Prognosis remains guarded. 2. Positive blood culture with coagulase-negative staph, likely skin contaminant. Repeat blood culture negative. Vancomycin discontinued. MMODL / IJN: [id number] / MTDD
[2020-07-08 00:08] LABS: Glucose,Whole Blood 87 mg/dL (75-99)
[2020-07-08] MEDS: ARIPiprazole 5 MG TAB PO SCH ×3 (00:29→21:09)
[2020-07-08 05:11] LABS: ABG Base Excess -7.1 mmol/L; ABG HCO3 21 mmol/L (21-25); ABG Oxygen Saturation 96.3 % (94-97); ABG PCO2 49 mmHg (35-45); ABG PH 7.23 (7.35-7.45); ABG PO2 92 mmHg (83-108); ABG TCO2 22 mmol/L (19-24); Allen Test Performed? Yes
[2020-07-08] MEDS: HYDROmorphone 0.5 MG/0.5 ML SYRINGE IVP PRN ×2 (06:01→14:21)
[2020-07-08 06:26] LABS: Basophils # (A) 0.1 k/uL (0-0.2); Basophils % (A) 0 %; Eosinophils % (A) 0 %; HCT 35.6 % (39.0-53.0); HGB 12.4 gm/dL (13.0-17.5); Lymphocytes # (A) 0.6 k/uL (1.0-4.8); Lymphocytes % (A) 3 %; MCHC 34.9 g/dL (31.0-37.0); MCV 86.1 fL (80.0-100.0); Mean Platelet Volume 8.9; Monocytes # (A) 0.7 k/uL (0-1.0); Monocytes % (A) 3 %; Neutrophils % (A) 91 %; RBC 4.13 m/uL (4.30-5.90); WBC 20.8 k/uL (3.8-10.6)
[2020-07-08 06:28] LABS: Platelet Count 90 k/uL (150-450)
[2020-07-08 06:31] LABS: Glucose,Whole Blood 151 mg/dL (75-99)
[2020-07-08 06:42] LABS: Calcium 7.5 mg/dL (8.4-10.2); Potassium 5.4 mmol/L (3.5-5.1)
--- NOTE | 2020-07-08 07:08 | XR ---
EXAMINATION TYPE: XR chest 1V portable DATE OF EXAM: 07/08/2020 COMPARISON: 07/07/2020 HISTORY: SOB, Follow Up FINDINGS: Indwelling tubes and catheters are unchanged. Patchy perihilar and basilar infiltrates remain essentially unchanged. Stable appearance of the cardio-mediastinal structures at this time. IMPRESSION: 1. Stable portable chest. Clinical correlation and follow up until resolution is recommended.
[2020-07-08] MEDS: ZINC SULFATE 220 MG CAP PO SCH (08:43)
[2020-07-08] MEDS: CHOLECALCIFEROL 25 MCG (1000 IU) TABLET PO SCH (08:43)
[2020-07-08] MEDS: PANTOPRAZOLE 40 MG/10 ML VIAL IVP SCH ×2 (08:43→21:09)
[2020-07-08] MEDS: CHLORHEXIDINE GLUCONATE 15 ML CUP MUCOUS MEM SCH ×2 (08:43→21:09)
[2020-07-08] MEDS: DEXAMETHASONE SOD PHOSPHATE 10 MG/ML 1 ML VIAL IV SCH (08:43)
[2020-07-08] MEDS: SUCRALFATE 1 GM TAB PO SCH ×4 (08:44→21:09)
[2020-07-08] MEDS: SERTRALINE 100 MG TAB PO SCH (08:45)
[2020-07-08] MEDS: ASPIRIN 300 MG SUPP RECTAL SCH (08:46)
--- NOTE | 2020-07-08 08:51 | P.PN ---
Subjective Progress Note Date: 07/08/20 Principal diagnosis: Abnormal cardiac enzymes This is a 59-year-old gentleman who was diagnosed with sepsis related to COVID- 19 infection and pneumonia and developed acute hypoxic respiratory failure. We consulted to see the patient mainly because of abnormal cardiac enzymes. The patient was seen today he relates of 2020. He remains in hypoxic respiratory failure on mechanical ventilation. Also he is on small doses of norepinephrine and he seems to be hemodynamically stable. The pressure has been marginal. The kidney function is slightly worse today. He continues to have gastrointestinal bleeding and yesterday we stopped the heparin and today and can stop the aspirin. Gastrointestinal service is on the case as well as the patient to be evaluated later on today. Objective - Vital Signs Vital signs: Vital Signs Temp 98.7 F 07/08/20 04:00 Pulse 89 07/08/20 07:00 Resp 30 H 07/08/20 07:00 BP 103/69 07/08/20 07:00 Pulse Ox 100 07/08/20 07:00 Intake & Output 07/07/20 07/08/20 07/08/20 18:59 06:59 18:59 Intake Total 7025.137 8927.618 Output Total 1200 465 Balance 118.317 993.618 Weight 115.6 kg Intake: IV 984 996 Pressure Bag 24 36 Sodium Chloride 0.9% 1, 960 960 000 ml @ 80 mls/hr IV . [id number] [facility] Rx#:[id number] Intake, IV Titration 244.317 462.618 Amount Norepinephrine 4 mg In 82.975 Sodium Chloride 0.9% 250 ml @ 0.05 MCG/KG/MIN 22. 466 mls/hr IV .[id number] [facility] Rx#:[id number] Norepinephrine 8 mg In 16.588 162.618 Sodium Chloride 0.9% 250 ml @ 0.05 MCG/KG/MIN 11. 01 mls/hr IV .[id number] [facility] Rx#:[id number] propofoL 1,000 mg In 144.754 300 Empty Bag 1 bag @ Titrate IV .Q0M [facility] Rx#: [id number] Other 90 Output: Gastric Drainage 50 125 Urine 1150 340 Uretheral (Silva) 705 Other: Voiding Method Indwelling Catheter Indwelling Catheter - Labs CBC & Chem 7: 07/08/20 04:45 07/08/20 04:45 Labs: Abnormal Lab Results - Last 24 Hours (Table) 07/07/20 07/07/20 07/08/20 Range/Units 04:49 11:30 04:45 WBC 20.8 H (3.8-10.6) k/uL RBC 4.13 L (4.30-5.90) m/uL Hgb 12.4 L (13.0-17.5) gm/dL Hct 35.6 L (39.0-53.0) % Plt Count 90 L (150-450) k/uL Neutrophils # 19.0 H (1.3-7.7) k/uL Lymphocytes # 0.6 L (1.0-4.8) k/uL ABG pH (7.35-7.45) ABG pCO2 (35-45) mmHg Sodium (137-145) mmol/L Potassium (3.5-5.1) mmol/L Chloride (98-107) mmol/L Carbon Dioxide (22-30) mmol/L BUN (9-20) mg/dL Creatinine (0.66-1.25) mg/dL Glucose (74-99) mg/dL POC Glucose (mg/dL) 148 H (75-99) mg/dL Calcium (8.4-10.2) mg/dL Ferritin 5795.4 H (22.0-322.0) ng/mL 07/08/20 07/08/20 07/08/20 Range/Units 04:45 05:07 06:17 WBC (3.8-10.6) k/uL RBC (4.30-5.90) m/uL Hgb (13.0-17.5) gm/dL Hct (39.0-53.0) % Plt Count (150-450) k/uL Neutrophils # (1.3-7.7) k/uL Lymphocytes # (1.0-4.8) k/uL ABG pH 7.23 L (7.35-7.45) ABG pCO2 49 H (35-45) mmHg Sodium 136 L (137-145) mmol/L Potassium 5.4 H (3.5-5.1) mmol/L Chloride 108 H (98-107) mmol/L Carbon Dioxide 20 L (22-30) mmol/L BUN 72 H (9-20) mg/dL Creatinine 2.83 H (0.66-1.25) mg/dL Glucose 144 H (74-99) mg/dL POC Glucose (mg/dL) 151 H (75-99) mg/dL Calcium 7.5 L (8.4-10.2) mg/dL Ferritin (22.0-322.0) ng/mL Microbiology - Last 24 Hours (Table) 07/07/20 00:01 Gram Stain - Preliminary Sputum Sputum Culture - Preliminary 07/04/20 19:38 Blood Culture - Preliminary Blood No Growth after 72 hours 07/04/20 19:14 Blood Culture Gram Stain - Final Blood Blood Culture - Final Coagulase Negative Staph Assessment and Plan Assessment: Assessment #1 sepsis with covid-19 #2 acute hypoxic respiratory failure secondary to above #3 hypotension secondary to the above #4 abnormal troponin #5 acute renal failure Plan #1 consider conservative approach for the mildly abnormal troponin which is likely secondary to sepsis and hypotension #2 stop the aspirin #3 continue supporting the blood pressure #4 continue monitor the hemoglobin as well as kidney function and electrolytes
[2020-07-08] MEDS: ALBUTEROL HFA INHALER INHALATION SCH ×3 (09:15→20:38)
[2020-07-08] MEDS: SODIUM CHLORIDE 0.9% 1,000 ML IV SCH ×3 (09:47→20:43)
--- NOTE | 2020-07-08 11:17 | P.PN ---
Subjective Progress Note Date: 07/08/20 Principal diagnosis: Acute hypoxemic respiratory failure secondary to acute CoVID 19 pneumonia/pneumonitis This is a 59-year-old male who presented to the emergency department and apparently tested positive for COVID 8 days ago. The patient has apparently been sick for about 10 days. His complaints included weakness and difficulty breathing. In addition, the patient had cough. Patient apparently denied fever, headache, pain, or other complaints initially. Patient is legally blind. The patient did not receive the coronavirus vaccination. Apparently, in the emergency department, his respiratory status declined, and he was intubated. The patient on the volume assist control mode rate of 24, breathing 30 times a minute, tidal volume 450, FiO2 100%, PEEP of 5 being increased to 10. Arterial blood gases show pO2 75, pCO2 33, pH is 7.44. He is receiving propofol at 30 mcg/kg/m, heparin via weightbase protocol, and saline at 20 mL an hour. The patient has a history of hypertension, heart posterior arthritis, sleep apnea, and is legally blind. Chest x-ray shows diffuse bilateral infiltrates. White count 6.3, hemoglobin 12.5, hematocrit 36.8, platelet count 216,000. PTT is 35.4. D-dimer 0.68. Sodium 134, potassium 4.3, chlorides 100, CO2 23, anion gap 11, BUN 39, creatinine 1.70. Troponins were 1.270 and 0.997. C-reactive protein is 261, N-terminal proBNP 4540. Pro-calcitonin is 0.23. Urine is negative both for nitrite and leukocyte esterase. Occasional bacteria, and few white blood cell clumps. Patient seen today 07/07/2020 in follow-up in the intensive care unit. He remains intubated on mechanical ventilator assist control mode. Rate of 24, tidal volume 450, FiO2 100% and a PEEP of 15. Morning blood gases reveal a pO2 135, pCO2 55, pH 7.22. He remains sedated on propofol at 60 mcg/kg/m. Norepinephrine at 0.03 mcg/kg/m. 0.9 normal saline at 80 MLS per hour. Tube feedings have not been initiated yet due to increased output from the NG tube which is coffee-ground in color. Blood cultures reveal no growth. Urine culture reveal no growth. Sputum cultures pending. White count 18.2. Hemoglobin 13.7. Platelet count 110. D-dimer greater than 34. Sodium 137. Potassium 5.9. Creatinine 1.55. Ferritin 5795. LDH 2301. C-reactive protein 147. Glucose 148. He is continued on bronchodilators, dexamethasone, vitamin supplements. He remains on Levaquin. Chest x-ray reveals scattered airspace infiltrates bilaterally. Unchanged. He did receive Tocilizumab. The patient is seen today 07/08/2020 and follow-up in the intensive care unit. He remains intubated and on the mechanical ventilator. Assist-control mode at a rate of 30, tidal volume 450, FiO2 80% and a PEEP of 15. Morning blood gases reveal a P O2 of 91, P CO2 of 49, pH 7.22. He is sedated on propofol at 60 mcg/kg/m. Norepinephrine at 6 mcg/m. 0.9 normal saline at 80 MLS per hour. He was initiated back on his Lovenox yesterday due to d-dimer greater than 34 but was again discontinued. GI services are on the case. White count 20.8. Hemoglobin 12.4. Platelet count 90,000. Sodium 136. Potassium 5.4. Creatinine 2.83. Remains on dexamethasone, vitamin supplements. Antibiotics in the form of Levaquin. Follow-up blood culture reveals no growth. Sputum culture pending. Urine culture revealed no growth. Objective - Vital Signs Vital signs: Vital Signs Temp 99.5 F 07/08/20 08:00 Pulse 86 07/08/20 11:00 Resp 30 H 07/08/20 11:00 BP 107/57 07/08/20 11:00 Pulse Ox 100 07/08/20 11:00 Intake & Output 07/07/20 07/08/20 07/08/20 18:59 06:59 18:59 Intake Total 7665.839 2285.618 415 Output Total 1200 465 110 Balance 118.317 993.618 305 Weight 115.6 kg 115.6 kg Intake: IV 984 996 415 Pressure Bag 24 36 15 Sodium Chloride 0.9% 1, 960 960 400 000 ml @ 80 mls/hr IV . [id number] [facility] Rx#:[id number] Intake, IV Titration 244.317 462.618 Amount Norepinephrine 4 mg In 82.975 Sodium Chloride 0.9% 250 ml @ 0.05 MCG/KG/MIN 22. 466 mls/hr IV .[id number] [facility] Rx#:[id number] Norepinephrine 8 mg In 16.588 162.618 Sodium Chloride 0.9% 250 ml @ 0.05 MCG/KG/MIN 11. 01 mls/hr IV .[id number] [facility] Rx#:[id number] propofoL 1,000 mg In 144.754 300 Empty Bag 1 bag @ Titrate IV .Q0M [facility] Rx#: [id number] Other 90 Output: Gastric Drainage 50 125 Urine 1150 340 110 Uretheral (Silva) 705 Other: Voiding Method Indwelling Catheter Indwelling Catheter Indwelling Catheter - Exam GENERAL EXAM: Intubated, sedated 59-year-old gentleman, on the mechanical ventilator currently on 80% FiO2, in no apparent distress. HEAD: Normocephalic. EYES: Sluggish reaction of pupils, equal size. NOSE: Clear with pink turbinates. THROAT: Oral endotracheal and gastric tube secured in place No erythema or exudates. NECK: No masses, no JVD. CHEST: No chest wall deformity. LUNGS: Equal air entry with crackles in the bilateral posterior bases CVS: S1 and S2 normal with no audible murmur, regular rhythm. ABDOMEN: No hepatosplenomegaly, normal bowel sounds, no guarding or rigidity. SPINE: No scoliosis or deformity SKIN: No rashes CENTRAL NERVOUS SYSTEM: Sedated. No focal deficits, tone is normal in all 4 extremities. EXTREMITIES: There is no peripheral edema. No clubbing, no cyanosis. Peripheral pulses are intact. - Labs CBC & Chem 7: 07/08/20 04:45 07/08/20 04:45 Labs: Abnormal Lab Results - Last 24 Hours (Table) 07/07/20 07/07/20 07/08/20 Range/Units 04:49 11:30 04:45 WBC 20.8 H (3.8-10.6) k/uL RBC 4.13 L (4.30-5.90) m/uL Hgb 12.4 L (13.0-17.5) gm/dL Hct 35.6 L (39.0-53.0) % Plt Count 90 L (150-450) k/uL Neutrophils # 19.0 H (1.3-7.7) k/uL Lymphocytes # 0.6 L (1.0-4.8) k/uL ABG pH (7.35-7.45) ABG pCO2 (35-45) mmHg Sodium (137-145) mmol/L Potassium (3.5-5.1) mmol/L Chloride (98-107) mmol/L Carbon Dioxide (22-30) mmol/L BUN (9-20) mg/dL Creatinine (0.66-1.25) mg/dL Glucose (74-99) mg/dL POC Glucose (mg/dL) 148 H (75-99) mg/dL Calcium (8.4-10.2) mg/dL Ferritin 5795.4 H (22.0-322.0) ng/mL 07/08/20 07/08/20 07/08/20 Range/Units 04:45 05:07 06:17 WBC (3.8-10.6) k/uL RBC (4.30-5.90) m/uL Hgb (13.0-17.5) gm/dL Hct (39.0-53.0) % Plt Count (150-450) k/uL Neutrophils # (1.3-7.7) k/uL Lymphocytes # (1.0-4.8) k/uL ABG pH 7.23 L (7.35-7.45) ABG pCO2 49 H (35-45) mmHg Sodium 136 L (137-145) mmol/L Potassium 5.4 H (3.5-5.1) mmol/L Chloride 108 H (98-107) mmol/L Carbon Dioxide 20 L (22-30) mmol/L BUN 72 H (9-20) mg/dL Creatinine 2.83 H (0.66-1.25) mg/dL Glucose 144 H (74-99) mg/dL POC Glucose (mg/dL) 151 H (75-99) mg/dL Calcium 7.5 L (8.4-10.2) mg/dL Ferritin (22.0-322.0) ng/mL Microbiology - Last 24 Hours (Table) 07/07/20 00:01 Gram Stain - Preliminary Sputum Sputum Culture - Preliminary 07/04/20 19:38 Blood Culture - Preliminary Blood No Growth after 72 hours 07/04/20 19:14 Blood Culture Gram Stain - Final Blood Blood Culture - Final Coagulase Negative Staph Assessment and Plan Assessment: 1 Acute hypoxemic respiratory failure secondary to acute CoVID 19 pneumonia/pneumonitis requiring mechanical ventilation on 07/05/2020. Received a tocilizumab. 2 Elevated inflammatory markers secondary to above 3 History of obstructive sleep apnea, maintained on CPAP 4 History of blindness 5 Hypertension, history of 6 Osteoarthritis Plan: The patient was seen and evaluated by Dr. Meneses Chest x-ray, ABGs and labs reviewed D-dimer greater than 34, recommended Lovenox 50 mg subcutaneous twice a day Observe for any signs of bleeding Continue dexamethasone, vitamin supplements Obtain a CVP Initiate tube feedings We'll continue to follow and make further recommendations based on his clinical status Critical care time 35 minutes I, the cosigning physician, performed a history & physical examination of the patient. Lungs sounds with bilateral crackles. Maintaining good O2 saturations in the 90s on 80% FiO2 and PEEP of 15 via the mechanical ventilator. I discussed the assessment and plan of care with my nurse practitioner, Zoë Roberts. I attest to the above note as dictated by her.
[2020-07-08 11:59] LABS: Glucose,Whole Blood 148 mg/dL (75-99)
[2020-07-08] MEDS ORDERED: CISATRACURIUM 2 MG/ML 5 ML VIAL IV ONE (12:45)
--- NOTE | 2020-07-08 12:54 | XR ---
EXAMINATION TYPE: XR chest 1V portable DATE OF EXAM: 07/08/2020 COMPARISON: 07/08/2020 HISTORY: SOB, Follow Up FINDINGS: No evidence for pneumothorax. Indwelling tubes and catheters are unchanged. No change in bibasilar opacities. Stable appearance of the cardio-mediastinal structures at this time. IMPRESSION: 1. Stable portable chest. Clinical correlation and follow up until resolution is recommended.
[2020-07-08] MEDS: CISATRACURIUM 200 MG in SODIUM CHLORIDE 0.9% 180 ML IV SCH (13:24)
--- NOTE | 2020-07-08 14:29 | P.CONS ---
History of Present Illness - Reason for Consult Consult date: 07/08/20 Coffee-ground output from NG tube Requesting physician: Miko Meneses - Chief Complaint Shortness of breath - History of Present Illness 59-year-old male with a medical history significant for diverticulosis, osteoporosis, obstructive sleep apnea, hypertension and visual impairment with the patient legally blind who presented to the hospital due to shortness of breath and weakness. Patient had previously tested positive for Covid 19. The patient was subsequently intubated and is currently on pressor support. A nasogastric tube was placed in the ICU and some coffee-ground return was noted. Patient's hemoglobin to however have remained stable currently at 12.4, with other laboratory evaluation significant for WBC of 20.8, a platelet count 90, total bilirubin 1.4, alkaline phosphatase 81, AST 250 and ALT 695. Patient has had no other signs or symptoms of GI bleeding. Patient previously underwent colonoscopy in 05/2016 significant for mild diverticulosis and underwent appendectomy in 2014. Of note history is been taken in discussion with the medical team and on review of the medical record as the patient is currently intubated and sedated. Review of Systems ROS unobtainable: due to mental status (Unable to obtain review of systems is a patient who is currently intubated and sedated) Past Medical History Past Medical History: Hypertension, Osteoarthritis (OA), Sleep Apnea/CPAP/BIPAP Additional Past Medical History / Comment(s): Pt tested covid + on 06/26/20 at [facility]. Pt is legally blind, htn but pt was having issues with swelling so he stopped taking htn med, RENETTA without device d/t pt unable to see well enough to keep it clean, chronic low back pain, diverticular disease, benign colon polyp. History of Any Multi-Drug Resistant Organisms: None Reported Past Surgical History: Appendectomy Additional Past Surgical History / Comment(s): Colonoscopy/benign polyp Past Anesthesia/Blood Transfusion Reactions: No Reported Reaction Smoking Status: Former smoker - Past Family History Father Family Medical History: CVA/TIA, Hypertension Mother Family Medical History: No Reported History Brother(s) Family Medical History: Hypertension Sister(s) Family Medical History: Cancer Medications and Allergies Home Medications Medication Instructions Recorded Confirmed Type Sertraline HCl [Zoloft] 200 mg PO DAILY 10/24/14 07/04/20 History ARIPiprazole [Abilify] 5 mg PO BID 08/14/18 07/04/20 History ALPRAZolam [Xanax] 0.25 mg PO DAILY PRN 07/04/20 07/04/20 History Cholecalciferol (Vitamin D3) 125 mcg PO DAILY 07/04/20 07/04/20 History [Vitamin D3 (5000 Iu)] Zinc 50 mg PO DAILY 07/04/20 07/04/20 History Allergies Allergy/AdvReac Type Severity Reaction Status Date / Time Penicillins Allergy Anaphylaxis Verified 07/04/20 20:26 Physical Exam Vitals: Vital Signs Temp Pulse Resp BP BP Pulse Ox 07/08/20 12:00 98.8 F 85 30 H 112/58 98 07/08/20 11:00 86 30 H 107/57 100 07/08/20 10:00 86 30 H 115/60 100 07/08/20 09:00 86 30 H 109/58 100 07/08/20 08:00 99.5 F 84 30 H 107/60 100 07/08/20 07:00 89 30 H 103/69 100 07/08/20 06:00 90 17 131/78 97 07/08/20 05:00 91 30 H 129/82 96 07/08/20 04:00 98.7 F 92 32 H 136/64 94 L 07/08/20 03:00 84 23 107/68 98 07/08/20 02:00 85 24 117/73 98 07/08/20 01:00 85 21 105/67 100 07/08/20 00:00 98.6 F 85 21 101/66 99 07/07/20 23:00 86 23 104/68 99 07/07/20 22:00 86 23 103/69 100 07/07/20 21:00 90 30 H 107/56 100 07/07/20 20:00 99.4 F 88 24 101/51 99 07/07/20 19:00 87 32 H 106/54 89 L 07/07/20 18:00 80 34 H 105/53 98 07/07/20 17:00 89 30 H 101/52 98 07/07/20 16:00 98.5 F 89 35 H 98/47 98 07/07/20 15:00 92 32 H 103/50 98 07/07/20 14:00 87 30 H 104/52 99 07/07/20 13:00 98 32 H 104/53 99 Intake and Output 07/07/20 07/08/20 07/08/20 22:59 06:59 14:59 Intake Total 387.765 2446.618 598 Output Total 555 365 150 Balance 400.342 661.618 448 Intake: IV 664 664 498 Pressure Bag 24 24 18 Sodium Chloride 0.9% 1, 640 640 480 000 ml @ 80 mls/hr IV . [id number] [facility] Rx#:[id number] Intake, IV Titration 261.342 362.618 100 Amount Norepinephrine 8 mg In 16.588 162.618 Sodium Chloride 0.9% 250 ml @ 0.05 MCG/KG/MIN 11. 01 mls/hr IV .[id number] [facility] Rx#:[id number] propofoL 1,000 mg In 244.754 200 100 Empty Bag 1 bag @ Titrate IV .Q0M [facility] Rx#: [id number] Other 30 Output: Gastric Drainage 50 125 Urine 505 240 150 Uretheral (Silva) 235 Other: Voiding Method Indwelling Catheter Indwelling Catheter Indwelling Catheter Weight 115.6 kg 115.6 kg On physical examination, patient appears comfortable in no apparent distress. HEAD: Normocephalic, atraumatic. EYES: No scleral icterus. No conjunctival injection. MOUTH: No lesions, tongue midline. NECK: Trachea midline, no gross abnormalities. CHEST: Coarse respiratory noises in all lung palafox secondary to mechanical ventilation. HEART: Regular rate and rhythm. ABDOMEN: Soft, obese. Bowel sounds are positive. No organomegaly. No guarding or rigidity. EXTREMITIES: No pedal edema. SKIN: No rashes, no jaundice. NEUROLOGIC: Intubated and sedated. Results CBC & Chem 7: 07/08/20 04:45 07/08/20 04:45 Labs: Abnormal Lab Results - Last 24 Hours (Table) 07/07/20 07/08/20 07/08/20 Range/Units 04:49 04:45 04:45 WBC 20.8 H (3.8-10.6) k/uL RBC 4.13 L (4.30-5.90) m/uL Hgb 12.4 L (13.0-17.5) gm/dL Hct 35.6 L (39.0-53.0) % Plt Count 90 L (150-450) k/uL Neutrophils # 19.0 H (1.3-7.7) k/uL Lymphocytes # 0.6 L (1.0-4.8) k/uL ABG pH (7.35-7.45) ABG pCO2 (35-45) mmHg Sodium 136 L (137-145) mmol/L Potassium 5.4 H (3.5-5.1) mmol/L Chloride 108 H (98-107) mmol/L Carbon Dioxide 20 L (22-30) mmol/L BUN 72 H (9-20) mg/dL Creatinine 2.83 H (0.66-1.25) mg/dL Glucose 144 H (74-99) mg/dL POC Glucose (mg/dL) (75-99) mg/dL Calcium 7.5 L (8.4-10.2) mg/dL Ferritin 5795.4 H (22.0-322.0) ng/mL 07/08/20 07/08/20 07/08/20 Range/Units 05:07 06:17 11:57 WBC (3.8-10.6) k/uL RBC (4.30-5.90) m/uL Hgb (13.0-17.5) gm/dL Hct (39.0-53.0) % Plt Count (150-450) k/uL Neutrophils # (1.3-7.7) k/uL Lymphocytes # (1.0-4.8) k/uL ABG pH 7.23 L (7.35-7.45) ABG pCO2 49 H (35-45) mmHg Sodium (137-145) mmol/L Potassium (3.5-5.1) mmol/L Chloride (98-107) mmol/L Carbon Dioxide (22-30) mmol/L BUN (9-20) mg/dL Creatinine (0.66-1.25) mg/dL Glucose (74-99) mg/dL POC Glucose (mg/dL) 151 H 148 H (75-99) mg/dL Calcium (8.4-10.2) mg/dL Ferritin (22.0-322.0) ng/mL Microbiology - Last 24 Hours (Table) 07/08/20 03:13 Sputum Culture - Preliminary Sputum 07/07/20 00:01 Gram Stain - Preliminary Sputum Sputum Culture - Preliminary 07/04/20 19:38 Blood Culture - Preliminary Blood No Growth after 72 hours 07/04/20 19:14 Blood Culture Gram Stain - Final Blood Blood Culture - Final Coagulase Negative Staph Comments: Left upper extremity Doppler negative for DVT. Assessment and Plan (1) Coffee ground emesis Narrative/Plan: 59-year-old male with multiple medical comorbidities who presented for shortness of breath and weakness is currently being treated for infection with Covid 19. The patient is intubated and sedated in the ICU and was noted to have some coffee-ground output from his nasogastric tube. No other signs or symptoms of GI bleeding and hemoglobin is running stable at 12.4. Suspicion is for trauma from NG tube placement, differential also includes gastritis, esophagitis, peptic ulcer disease or other etiology. Current Visit: Yes Status: Acute Code(s): K92.0 - HEMATEMESIS SNOMED Code(s): 37273933 (2) Pneumonia due to COVID-19 virus Current Visit: Yes Status: Acute Code(s): U07.1 - COVID-19; J12.82 - Pneumonia due to coronavirus disease 2019 SNOMED Code(s): 297316993065021621 Plan: Supportive care Continue monitor hemoglobin and hematocrit and transfuse as needed Continue Protonix 40 mg twice daily If no further signs or symptoms of GI bleeding okay to initiate tube feeds with cold as directed by the nutrition department No plans for endoscopic evaluation at this time, if further episodes of GI bleeding or precipitous fall in hemoglobin we'll reevaluate then Continue other medical management as per primary team and pediatric neuropsychologist service Thank you for allowing us to participate in the care of the patient
[2020-07-08] MEDS: NOREPINEPHRINE 8 MG in SODIUM CHLORIDE 0.9% 250 ML IV SCH (15:12)
[2020-07-08] MEDS: fentaNYL (PF) 1,000 MCG in SODIUM CHLORIDE 0.9% 80 ML IV SCH (15:24)
[2020-07-08] MEDS ORDERED: LEVOFLOXACIN 250MG-D5W PMX 250 MG in DEXTROSE/WATER 1 50ML.BAG IVPB SCH (17:00)
[2020-07-08] MEDS: ARTIFICIAL TEARS-HYPROMELLOSE DROPS 15 ML BTL BOTH EYES SCH (17:27)
--- NOTE | 2020-07-08 17:55 | PN ---
PROGRESS NOTE DATE OF SERVICE: 07/08/2020 REASON FOR FOLLOWUP: Pneumonia. INTERVAL HISTORY: The patient is currently running a low-grade fever of 99.3 axillary. The patient is hemodynamically stable, not on any pressor support. FiO2 is cut down to 50%. There are no purulent secretions through the ET or diarrhea reported by the nursing staff. PHYSICAL EXAMINATION: Blood pressure 124/61, pulse of 97, temperature 99.3. He is 98% on 50% FiO2. General description is a middle-aged male intubated on the vent. RESPIRATORY SYSTEM: Unlabored breathing with decreased intensity of breath sounds. No wheeze. HEART: S1, S2. Regular rate and rhythm. ABDOMEN: Soft. No tenderness. LABS: Hemoglobin is 12.4, white count 20.8. BUN of 72, creatinine is 2.83. Blood culture with a coagulase-negative staph. Sputum is beta hemolytic group C strep. DIAGNOSTIC IMPRESSION AND PLAN: Patient with acute respiratory failure which is multifactorial in this patient with COVID-19 infection, question of possible secondary bacterial. Sputum showing a group C strep. Will add Rocephin 2 grams daily and discontinue Levaquin. Continue with current supportive regimen of steroids and monitor his clinical course closely. MMODL / IJN: [id number] /
[2020-07-08 18:04] LABS: Glucose,Whole Blood 155 mg/dL (75-99)
--- NOTE | 2020-07-08 23:20 | P.PN ---
Subjective This is a pleasant 53 years old male with past medical history of hypertension, osteoarthritis, sleep apnea. Presents with respiratory distress secondary to covid pneumonia and secondary bacterial infection is suspected as well with positive sputum culture for streptococcus, group C. Patient is currently monitored in the ICU because of his respiratory failure, currently on mechanical ventilation and need a small dose of Levophed at 4 g today. Also patient has elevated troponin and he was started on heparin drip however he developed coffee-ground emesis via anicteric tube, heparin drip was stopped and hemoglobin is stable and normal at 12.4 today. Nitrocellulose Maker found to his elevated troponin is secondary to his Covid infection and hypotension, Lovenox is on hold although patient has elevated d-dimer due to coffee ground vomiting. Distal sedation, his blood pressure is marginal 104/60 this morning. Pulmonary team performed closely and help with vent management, his PEEP was increased today from 15-18. His oxygen saturation is guarded at 100% with FiO2 of 70%. Patient has marginal urine output at 20 mL/h and continue with normal saline at 80 mL per hour Review of systems: N/a Active Medications Generic Name Dose Route Start Last Admin Trade Name Freq PRN Reason Stop Dose Admin Albuterol Sulfate 2 puff 07/05/20 08:00 07/08/20 20:38 Albuterol Hfa Inhaler INHALATION 2 puff RT-TID PRAFUL Administration Aripiprazole 5 mg 07/04/20 21:00 07/08/20 21:09 Aripiprazole 5 Mg Tab PO 5 mg BID PRAFUL Administration Artificial Tears 2 drops 07/08/20 16:00 07/08/20 17:27 Artificial Tears-Hypromellose Drops 15 Ml Btl BOTH EYES 2 drops Q4HR PRAFUL Administration Aspirin 300 mg 07/08/20 09:00 07/08/20 08:46 Aspirin 300 Mg Supp RECTAL Not Given DAILY PRAFUL Chlorhexidine Gluconate 15 ml 07/07/20 09:00 07/08/20 21:09 Chlorhexidine Gluconate 15 Ml Cup MUCOUS MEM 15 ml BID PRAFUL Administration Cholecalciferol 125 mcg 07/05/20 09:00 07/08/20 08:43 Cholecalciferol 25 Mcg (1000 Iu) Tablet PO 125 mcg DAILY PRAFUL Administration Dexamethasone Sodium Phosphate 6 mg 07/05/20 09:00 07/08/20 08:43 Dexamethasone Sod Phosphate 10 Mg/Ml 1 Ml Vial IV 6 mg DAILY PRAFUL Administration Hydromorphone HCl 0.5 mg 07/04/20 20:56 07/08/20 14:21 Hydromorphone 0.5 Mg/0.5 Ml Syringe IVP 0.5 mg Q6HR PRN Administration Severe Pain Sodium Chloride 1,000 mls @ 80 mls/hr 07/04/20 20:15 07/08/20 20:43 Saline 0.9% IV 80 mls/hr .[id number] PRAFUL Administration Propofol 1,000 mg/ IV Solution 100 mls @ 0 mls/hr 07/05/20 04:00 07/08/20 21:09 IV 60 mcg/kg/min .Q0M PRAFUL 41.616 mls/hr Administration Protocol Titrate Norepinephrine Bitartrate 8 mg 258 mls @ 11.01 mls/hr 07/07/20 12:30 07/08/20 15:12 / Sodium Chloride IV Not Given .[id number] PRAFUL Protocol 0.05 MCG/KG/MIN Cisatracurium Besylate 200 mg/ 200 mls @ 6.936 mls/hr 07/08/20 12:45 07/08/20 14:45 Sodium Chloride IV 2 mcg/kg/min .Q24H PRAFUL 13.872 mls/hr Titration Protocol 1 MCG/KG/MIN Fentanyl Citrate 1,000 mcg/ 100 mls @ 0 mls/hr 07/08/20 15:15 07/08/20 15:24 Sodium Chloride IV 0.5 mcg/kg/hr .Q0M PRAFUL 5.78 mls/hr Administration Protocol Per Protocol Ceftriaxone Sodium 2 gm/ 50 mls @ 100 mls/hr 07/08/20 17:30 07/08/20 18:15 Sodium Chloride IVPB 100 mls/hr Q24HR PRAFUL Administration Pantoprazole Sodium 40 mg 07/05/20 21:00 07/08/20 21:09 Pantoprazole 40 Mg/10 Ml Vial IVP 40 mg BID PRAFUL Administration Sertraline HCl 200 mg 07/05/20 09:00 07/08/20 08:45 Sertraline 100 Mg Tab PO 200 mg DAILY PRAFUL Administration Sucralfate 1 gm 07/07/20 17:30 07/08/20 21:09 Sucralfate 1 Gm Tab PO 1 gm ACHS PRAFUL Administration Zinc Sulfate 220 mg 07/04/20 21:00 07/08/20 08:43 Zinc Sulfate 220 Mg Cap PO 220 mg DAILY PRAFUL Administration Objective - Vital Signs Vital signs: Vital Signs Temp 99.5 F 07/08/20 08:00 Pulse 86 07/08/20 09:00 Resp 30 H 07/08/20 09:00 BP 109/58 07/08/20 09:00 Pulse Ox 100 07/08/20 09:00 Intake & Output 07/07/20 07/08/20 07/08/20 18:59 06:59 18:59 Intake Total 7472.990 8824.618 249 Output Total 1200 465 60 Balance 118.317 993.618 189 Weight 115.6 kg 115.6 kg Intake: IV 984 996 249 Pressure Bag 24 36 9 Sodium Chloride 0.9% 1, 960 960 240 000 ml @ 80 mls/hr IV . [id number] PRAFUL Rx#:[id number] Intake, IV Titration 244.317 462.618 Amount Norepinephrine 4 mg In 82.975 Sodium Chloride 0.9% 250 ml @ 0.05 MCG/KG/MIN 22. 466 mls/hr IV .[id number] PRAFUL Rx#:[id number] Norepinephrine 8 mg In 16.588 162.618 Sodium Chloride 0.9% 250 ml @ 0.05 MCG/KG/MIN 11. 01 mls/hr IV .[id number] PRAFUL Rx#:[id number] propofoL 1,000 mg In 144.754 300 Empty Bag 1 bag @ Titrate IV .Q0M PRAFUL Rx#: [id number] Other 90 Output: Gastric Drainage 50 125 Urine 1150 340 60 Uretheral (Silva) 705 Other: Voiding Method Indwelling Catheter Indwelling Catheter Indwelling Catheter - Exam -GENERAL: The patient is intubated and sedated, well nourished. HEENT: Pupils are round and equally reacting to light. EOMI. No scleral icterus. No conjunctival pallor. Normocephalic, atraumatic. No pharyngeal erythema. No thyromegaly. CARDIOVASCULAR: S1 and S2 present. No murmurs, rubs, or gallops. PULMONARY: Chest is clear to auscultation, no wheezing or crackles. ABDOMEN: Soft, nontender, nondistended, normoactive bowel sounds. No palpable organomegaly. MUSCULOSKELETAL: No joint swelling or deformity. EXTREMITIES: No cyanosis, clubbing, or pedal edema. NEUROLOGICAL: Gross neurological examination did not reveal any focal deficits. SKIN: No rashes. no petechiae. - Labs CBC & Chem 7: 07/08/20 04:45 07/08/20 04:45 Labs: Abnormal Lab Results - Last 24 Hours (Table) 07/07/20 07/07/20 07/08/20 Range/Units 04:49 11:30 04:45 WBC 20.8 H (3.8-10.6) k/uL RBC 4.13 L (4.30-5.90) m/uL Hgb 12.4 L (13.0-17.5) gm/dL Hct 35.6 L (39.0-53.0) % Plt Count 90 L (150-450) k/uL Neutrophils # 19.0 H (1.3-7.7) k/uL Lymphocytes # 0.6 L (1.0-4.8) k/uL ABG pH (7.35-7.45) ABG pCO2 (35-45) mmHg Sodium (137-145) mmol/L Potassium (3.5-5.1) mmol/L Chloride (98-107) mmol/L Carbon Dioxide (22-30) mmol/L BUN (9-20) mg/dL Creatinine (0.66-1.25) mg/dL Glucose (74-99) mg/dL POC Glucose (mg/dL) 148 H (75-99) mg/dL Calcium (8.4-10.2) mg/dL Ferritin 5795.4 H (22.0-322.0) ng/mL 07/08/20 07/08/20 07/08/20 Range/Units 04:45 05:07 06:17 WBC (3.8-10.6) k/uL RBC (4.30-5.90) m/uL Hgb (13.0-17.5) gm/dL Hct (39.0-53.0) % Plt Count (150-450) k/uL Neutrophils # (1.3-7.7) k/uL Lymphocytes # (1.0-4.8) k/uL ABG pH 7.23 L (7.35-7.45) ABG pCO2 49 H (35-45) mmHg Sodium 136 L (137-145) mmol/L Potassium 5.4 H (3.5-5.1) mmol/L Chloride 108 H (98-107) mmol/L Carbon Dioxide 20 L (22-30) mmol/L BUN 72 H (9-20) mg/dL Creatinine 2.83 H (0.66-1.25) mg/dL Glucose 144 H (74-99) mg/dL POC Glucose (mg/dL) 151 H (75-99) mg/dL Calcium 7.5 L (8.4-10.2) mg/dL Ferritin (22.0-322.0) ng/mL Microbiology - Last 24 Hours (Table) 07/07/20 00:01 Gram Stain - Preliminary Sputum Sputum Culture - Preliminary 07/04/20 19:38 Blood Culture - Preliminary Blood No Growth after 72 hours 07/04/20 19:14 Blood Culture Gram Stain - Final Blood Blood Culture - Final Coagulase Negative Staph Assessment and Plan Assessment: Acute Covid pneumonia Suspected superimposed bacterial pneumonia with streptococcus Acute hypoxic respiratory failure needing mechanical ventilation Coffee ground vomiting with suspected acute GI bleed Elevated troponin, secondary to renal function impairment, viral infection and hypotension Acute kidney injury Plan: This is a pleasant 59 years old male who presents with Covid pneumonia, possible bacterial pneumonia, and possible GI bleed. Continue with mechanical ventilation for pulmonary/critical care team will follow the patient closely. Continue with multiple vitamin zinc and vitamin D. Continue with ceftriaxone and antibiotics as per ID team. Continue with gentle hydration. Infectious disease, GI and ID team on the case Labs and medication were reviewed.. Continue same treatment. Continue with symptomatic treatment. Resume home medication. Monitor lytes and vitals. DVT and GI prophylaxis. Further recommendationsas per clinical course of the patient DVT prophylaxis: Subcutaneous Lovenox, on hold for possible GI bleed GI Prophylaxis: Ppi Prognosis is guarded
[2020-07-09 00:19] LABS: Glucose,Whole Blood 145 mg/dL (75-99)
[2020-07-09] MEDS: fentaNYL (PF) 1,000 MCG in SODIUM CHLORIDE 0.9% 80 ML IV SCH ×2 (04:31→18:13)
[2020-07-09 04:58] LABS: ABG Base Excess -10.1 mmol/L; ABG HCO3 19 mmol/L (21-25); ABG Oxygen Saturation 93.1 % (94-97); ABG PCO2 55 mmHg (35-45); ABG PO2 74 mmHg (83-108); ABG TCO2 21 mmol/L (19-24); Allen Test Performed? Yes
[2020-07-09 06:13] LABS: Calcium 7.5 mg/dL (8.4-10.2)
[2020-07-09 06:17] LABS: C Reactive Protein 30.8 mg/L (<10.0)
[2020-07-09 06:21] LABS: Glucose,Whole Blood 144 mg/dL (75-99)
[2020-07-09 06:58] LABS: Potassium 6.4 mmol/L (3.5-5.1)
[2020-07-09 07:05] LABS: Basophils # (A) 0.1 k/uL (0-0.2); Basophils % (A) 1 %; Eosinophils % (A) 0 %; HCT 35.8 % (39.0-53.0); HGB 11.9 gm/dL (13.0-17.5); Lymphocytes # (A) 0.5 k/uL (1.0-4.8); Lymphocytes % (A) 3 %; MCH 29.2 pg (25.0-35.0); MCHC 33.2 g/dL (31.0-37.0); MCV 87.9 fL (80.0-100.0); Monocytes # (A) 0.5 k/uL (0-1.0); Monocytes % (A) 3 %; Neutrophils # (A) 15.8 k/uL (1.3-7.7); Neutrophils % (A) 93 %; RBC 4.07 m/uL (4.30-5.90); RDW 13.3 % (11.5-15.5)
[2020-07-09] MEDS: ARTIFICIAL TEARS-HYPROMELLOSE DROPS 15 ML BTL BOTH EYES SCH ×6 (07:11→23:14)
[2020-07-09 07:12] LABS: Platelet Count 76 k/uL (150-450)
[2020-07-09] MEDS ORDERED: INSULIN REGULAR 100 UNIT/ML VIAL IV ONE (08:14)
[2020-07-09] MEDS ORDERED: DEXTROSE 50% SYRINGE 50 ML IVP STA (08:16)
[2020-07-09] MEDS: CISATRACURIUM 200 MG in SODIUM CHLORIDE 0.9% 180 ML IV SCH (08:19)
--- NOTE | 2020-07-09 08:35 | XR ---
EXAMINATION TYPE: XR chest 1V portable DATE OF EXAM: 07/09/2020 Comparison: 07/08/2020 Clinical History: 59-year-old male Tube placement Findings: ET tube satisfactory. NG tube courses below the diaphragm. Heart borderline in size. Patchy opacities in the lower lung in the periphery of the left mid lung have increased. No pleural effusion. Impression: Patchy lower lung infiltrates and in the periphery of the left midlung have increased.
[2020-07-09] MEDS: ALBUTEROL HFA INHALER INHALATION SCH ×3 (08:53→19:37)
--- NOTE | 2020-07-09 08:55 | P.PN ---
Subjective Progress Note Date: 07/09/20 Principal diagnosis: Abnormal cardiac enzymes This is a 59-year-old gentleman who was diagnosed with sepsis related to COVID- 19 infection and pneumonia and developed acute hypoxic respiratory failure. We consulted to see the patient mainly because of abnormal cardiac enzymes. The patient was seen today 07/09/2020. Unfortunately he continues to be intubated on mechanical ventilation and he is not doing well from the pulmonary/critical care standpoint overview. He continues to be on PEEP of 20. He is on high FiO2. Hemodynamically he is stable and not on vasopressors an ymore at this point. Unfortunately his left hand has been will and he lost his radial pulse. I couldn't see any left brachial pulse but I was able to get a signal by Doppler. His platelet has been coming down and trending down significantly. 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 We are going to start the patient on Argatroban and monitor for any bleeding especially gastrointestinal bleeding. Objective - Vital Signs Vital signs: Vital Signs Temp 98.7 F 07/09/20 04:00 Pulse 84 07/09/20 07:00 Resp 30 H 07/09/20 07:00 BP 121/73 07/09/20 07:00 Pulse Ox 96 07/09/20 07:00 Intake & Output 07/08/20 07/09/20 07/09/20 18:59 06:59 18:59 Intake Total 5528.937 7847.167 134.919 Output Total 375 240 15 Balance 4304.203 8707.167 119.919 Weight 115.6 kg 119.9 kg Intake: IV 996 1020 86 Pressure Bag 36 60 6 Sodium Chloride 0.9% 1, 960 960 80 000 ml @ 80 mls/hr IV . [id number] PRAFUL Rx#:[id number] Intake, IV Titration 388.158 762.167 48.919 Amount Cisatracurium 200 mg In 9.364 190.636 Sodium Chloride 0.9% 180 ml @ 1 MCG/KG/MIN 6.936 mls/hr IV .Q24H PRAFUL Rx#: [id number] Norepinephrine 8 mg In 78.794 Sodium Chloride 0.9% 250 ml @ 0.05 MCG/KG/MIN 11. 01 mls/hr IV .[id number] PRAFUL Rx#:[id number] fentaNYL (PF) 1,000 mcg 75.814 In Sodium Chloride 0.9% 80 ml @ Per Protocol IV . Q0M PRAFUL Rx#:[id number] propofoL 1,000 mg In 300 495.717 48.919 Empty Bag 1 bag @ Titrate IV .Q0M PRAFUL Rx#: [id number] Tube Feeding 75 180 Other 30 90 Output: Urine 375 240 15 Other: Voiding Method Indwelling Catheter Indwelling Catheter - Labs CBC & Chem 7: 07/09/20 05:05 07/09/20 05:05 Labs: Abnormal Lab Results - Last 24 Hours (Table) 07/08/20 07/08/20 07/09/20 Range/Units 11:57 18:03 00:16 WBC (3.8-10.6) k/uL RBC (4.30-5.90) m/uL Hgb (13.0-17.5) gm/dL Hct (39.0-53.0) % Plt Count (150-450) k/uL Neutrophils # (1.3-7.7) k/uL Lymphocytes # (1.0-4.8) k/uL ABG pH (7.35-7.45) ABG pCO2 (35-45) mmHg ABG pO2 (83-108) mmHg ABG HCO3 (21-25) mmol/L ABG O2 Saturation (94-97) % Sodium (137-145) mmol/L Potassium (3.5-5.1) mmol/L Chloride (98-107) mmol/L Carbon Dioxide (22-30) mmol/L BUN (9-20) mg/dL Creatinine (0.66-1.25) mg/dL Glucose (74-99) mg/dL POC Glucose (mg/dL) 148 H 155 H 145 H (75-99) mg/dL Calcium (8.4-10.2) mg/dL Lactate Dehydrogenase (313-618) U/L C-Reactive Protein (<10.0) mg/L 07/09/20 07/09/20 07/09/20 Range/Units 04:47 05:05 05:05 WBC 17.0 H (3.8-10.6) k/uL RBC 4.07 L (4.30-5.90) m/uL Hgb 11.9 L (13.0-17.5) gm/dL Hct 35.8 L (39.0-53.0) % Plt Count 76 L (150-450) k/uL Neutrophils # 15.8 H (1.3-7.7) k/uL Lymphocytes # 0.5 L (1.0-4.8) k/uL ABG pH 7.14 L* (7.35-7.45) ABG pCO2 55 H (35-45) mmHg ABG pO2 74 L (83-108) mmHg ABG HCO3 19 L (21-25) mmol/L ABG O2 Saturation 93.1 L (94-97) % Sodium (137-145) mmol/L Potassium (3.5-5.1) mmol/L Chloride (98-107) mmol/L Carbon Dioxide (22-30) mmol/L BUN (9-20) mg/dL Creatinine (0.66-1.25) mg/dL Glucose (74-99) mg/dL POC Glucose (mg/dL) (75-99) mg/dL Calcium (8.4-10.2) mg/dL Lactate Dehydrogenase 1316 H (313-618) U/L C-Reactive Protein 30.8 H (<10.0) mg/L 07/09/20 07/09/20 Range/Units 05:05 06:08 WBC (3.8-10.6) k/uL RBC (4.30-5.90) m/uL Hgb (13.0-17.5) gm/dL Hct (39.0-53.0) % Plt Count (150-450) k/uL Neutrophils # (1.3-7.7) k/uL Lymphocytes # (1.0-4.8) k/uL ABG pH (7.35-7.45) ABG pCO2 (35-45) mmHg ABG pO2 (83-108) mmHg ABG HCO3 (21-25) mmol/L ABG O2 Saturation (94-97) % Sodium 136 L (137-145) mmol/L Potassium 6.4 H* (3.5-5.1) mmol/L Chloride 108 H (98-107) mmol/L Carbon Dioxide 17 L (22-30) mmol/L BUN 91 H (9-20) mg/dL Creatinine 3.74 H (0.66-1.25) mg/dL Glucose 129 H (74-99) mg/dL POC Glucose (mg/dL) 144 H (75-99) mg/dL Calcium 7.5 L (8.4-10.2) mg/dL Lactate Dehydrogenase (313-618) U/L C-Reactive Protein (<10.0) mg/L Microbiology - Last 24 Hours (Table) 07/08/20 03:13 Gram Stain - Preliminary Sputum Sputum Culture - Preliminary 07/04/20 19:38 Blood Culture - Preliminary Blood No Growth after 96 hours 07/07/20 00:01 Gram Stain - Preliminary Sputum Sputum Culture - Preliminary Beta Hemolytic Strep Group C Assessment and Plan Assessment: Assessment #1 sepsis with covid-19 #2 acute hypoxic respiratory failure secondary to above #3 hypotension secondary to the above and that has improved #4 abnormal troponin #5 acute renal failure #6 possible HIT Plan #1 start the patient on Argatrban #2 monitor the patient for bleeding #3 follow-up with the patient
[2020-07-09] MEDS ORDERED: ARGATROBAN 50 MG in SODIUM CHLORIDE 0.9% 50 ML IV SCH (09:00)
[2020-07-09] MEDS: CHOLECALCIFEROL 25 MCG (1000 IU) TABLET PO SCH (09:02)
[2020-07-09] MEDS: SERTRALINE 100 MG TAB PO SCH (09:02)
[2020-07-09] MEDS: DEXAMETHASONE SOD PHOSPHATE 10 MG/ML 1 ML VIAL IV SCH (09:02)
[2020-07-09] MEDS: ARIPiprazole 5 MG TAB PO SCH ×2 (09:02→23:07)
[2020-07-09] MEDS: PANTOPRAZOLE 40 MG/10 ML VIAL IVP SCH ×2 (09:02→23:18)
[2020-07-09] MEDS: CHLORHEXIDINE GLUCONATE 15 ML CUP MUCOUS MEM SCH ×2 (09:02→22:51)
[2020-07-09] MEDS: ZINC SULFATE 220 MG CAP PO SCH (09:02)
[2020-07-09] MEDS: SUCRALFATE 1 GM TAB PO SCH ×4 (09:08→22:51)
[2020-07-09] MEDS: ASPIRIN 300 MG SUPP RECTAL SCH (09:10)
--- NOTE | 2020-07-09 09:32 | US ---
EXAMINATION TYPE: US venous doppler duplex UE LT DATE OF EXAM: 07/09/2020 COMPARISON: 07/07/2020 CLINICAL HISTORY: 59-year-old male Left hand cold, blue. Edema left arm. COVID SIDE PERFORMED: left FINDINGS: Left Arm: *Technical limitations due to patient's body habitus, intubated ICU patient, head tilted to wards left side, IV's and bandages left antecubital fossa. No evidence of DVT as visualized. Superfic ial thrombus noted left cephalic vein and left basilic as on prior exam IMPRESSION: Technically, very limited exam as above. Unable to visualize any DVT of the left upper extremity. How ever, the exam remains positive for SVT of the left cephalic and basilic veins as seen previously.
[2020-07-09] MEDS: ARGATROBAN 50 MG in SODIUM CHLORIDE 0.9% 50 ML IV SCH ×2 (10:09→18:15)
--- NOTE | 2020-07-09 10:13 | P.GSCN ---
<Leonela Barnard - Last Filed: 07/09/20 12:46> History of Present Illness Consult date: 07/09/20 Reason for Consult: Left cold hand Requesting physician: Miko Meneses History of present illness: This is a 59-year-old male patient presented to the emergency department on 06/03/2020 with complaints of shortness of breath. He was found to have cocaine pneumonia, was intubated in the emergency room with acute hypoxia. He has been in the ICU on mechanical ventilation since. He was noted to have elevated troponins and was started on a heparin drip. Soon after he was noted to have coffee-ground drainage from the NG tube and the heparin was discontinued. He has had continued drop in his platelet count, and is thought to have heparin-i nduced thrombocytopenia. He has been having significant bruising, now having bleeding from his groin sites, petechiae, and noted to have a cool left hand with no palpable radial pulse hence vascular surgery was consulted. Doppler ultrasound was performed this morning which was negative for a deep vein thrombosis, however the health information technologist stated there was a superficial thrombosis. Arterial ultrasound is being performed at the time of this dictation, results pending. The patient has a past medical history significant for obesity, hypertension, and obstructive sleep apnea requiring CPAP. Review of Systems Unable to obtain due to patient being sedated and intubated Past Medical History Past Medical History: Hypertension, Osteoarthritis (OA), Sleep Apnea/CPAP/BIPAP Additional Past Medical History / Comment(s): Pt tested covid + on 06/26/20 at [facility]. Pt is legally blind, htn but pt was having issues with swelling so he stopped taking htn med, RENETTA without device d/t pt unable to see well enough to keep it clean, chronic low back pain, diverticular disease, benign colon polyp. History of Any Multi-Drug Resistant Organisms: None Reported Past Surgical History: Appendectomy Additional Past Surgical History / Comment(s): Colonoscopy/benign polyp Past Anesthesia/Blood Transfusion Reactions: No Reported Reaction Smoking Status: Former smoker - Past Family History Father Family Medical History: CVA/TIA, Hypertension Mother Family Medical History: No Reported History Brother(s) Family Medical History: Hypertension Sister(s) Family Medical History: Cancer Medications and Allergies Home Medications Medication Instructions Recorded Confirmed Type Sertraline HCl [Zoloft] 200 mg PO DAILY 07/25/15 04/04/21 History ARIPiprazole [Abilify] 5 mg PO BID 08/14/18 07/04/20 History ALPRAZolam [Xanax] 0.25 mg PO DAILY PRN 07/04/20 07/04/20 History Cholecalciferol (Vitamin D3) 125 mcg PO DAILY 07/04/20 07/04/20 History [Vitamin D3 (5000 Iu)] Zinc 50 mg PO DAILY 07/04/20 07/04/20 History Allergies Allergy/AdvReac Type Severity Reaction Status Date / Time Penicillins Allergy Anaphylaxis Verified 07/04/20 20:26 Surgical - Exam Vital Signs Temp Pulse Resp BP Pulse Ox 98.2 F 56 L 24 108/71 95 07/04/20 18:30 07/04/20 18:30 07/04/20 18:30 07/04/20 18:30 07/04/20 18:30 General appearance: The patient is sedated on mechanical ventilation. HET: Head is normocephalic and atraumatic. Neck: Supple without lymphadenopathy. Trachea midline. Heart: S1 S2. Regular rate and rhythm. Lungs: Equal air entry. Crackles in bilateral bases. Abdomen: Soft, obese, nontender, nondistended. Extremities: Upper extremity cold to the touch from fingertips to above the elbow with swelling. Hand is mottled with petechiae. Decreased capillary refill, brachial and radial Doppler signal obtained. Right" to touch, mildly mottled good capillary refill. Positive brachial and radial Doppler signal obtained. Positive femoral, posterior tibialis and dorsalis pedis Doppler signals obtained. Neurological: Sedated on mechanical ventilation. Results - Labs 07/09/20 05:05 07/09/20 05:05 Abnormal Lab Results - Last 24 Hours (Table) 07/08/20 07/08/20 07/09/20 Range/Units 11:57 18:03 00:16 WBC (3.8-10.6) k/uL RBC (4.30-5.90) m/uL Hgb (13.0-17.5) gm/dL Hct (39.0-53.0) % Plt Count (150-450) k/uL Neutrophils # (1.3-7.7) k/uL Lymphocytes # (1.0-4.8) k/uL ABG pH (7.35-7.45) ABG pCO2 (35-45) mmHg ABG pO2 (83-108) mmHg ABG HCO3 (21-25) mmol/L ABG O2 Saturation (94-97) % Sodium (137-145) mmol/L Potassium (3.5-5.1) mmol/L Chloride (98-107) mmol/L Carbon Dioxide (22-30) mmol/L BUN (9-20) mg/dL Creatinine (0.66-1.25) mg/dL Glucose (74-99) mg/dL POC Glucose (mg/dL) 148 H 155 H 145 H (75-99) mg/dL Calcium (8.4-10.2) mg/dL Lactate Dehydrogenase (313-618) U/L C-Reactive Protein (<10.0) mg/L 07/09/20 07/09/20 07/09/20 Range/Units 04:47 05:05 05:05 WBC 17.0 H (3.8-10.6) k/uL RBC 4.07 L (4.30-5.90) m/uL Hgb 11.9 L (13.0-17.5) gm/dL Hct 35.8 L (39.0-53.0) % Plt Count 76 L (150-450) k/uL Neutrophils # 15.8 H (1.3-7.7) k/uL Lymphocytes # 0.5 L (1.0-4.8) k/uL ABG pH 7.14 L* (7.35-7.45) ABG pCO2 55 H (35-45) mmHg ABG pO2 74 L (83-108) mmHg ABG HCO3 19 L (21-25) mmol/L ABG O2 Saturation 93.1 L (94-97) % Sodium (137-145) mmol/L Potassium (3.5-5.1) mmol/L Chloride (98-107) mmol/L Carbon Dioxide (22-30) mmol/L BUN (9-20) mg/dL Creatinine (0.66-1.25) mg/dL Glucose (74-99) mg/dL POC Glucose (mg/dL) (75-99) mg/dL Calcium (8.4-10.2) mg/dL Lactate Dehydrogenase 1316 H (313-618) U/L C-Reactive Protein 30.8 H (<10.0) mg/L 07/09/20 07/09/20 Range/Units 05:05 06:08 WBC (3.8-10.6) k/uL RBC (4.30-5.90) m/uL Hgb (13.0-17.5) gm/dL Hct (39.0-53.0) % Plt Count (150-450) k/uL Neutrophils # (1.3-7.7) k/uL Lymphocytes # (1.0-4.8) k/uL ABG pH (7.35-7.45) ABG pCO2 (35-45) mmHg ABG pO2 (83-108) mmHg ABG HCO3 (21-25) mmol/L ABG O2 Saturation (94-97) % Sodium 136 L (137-145) mmol/L Potassium 6.4 H* (3.5-5.1) mmol/L Chloride 108 H (98-107) mmol/L Carbon Dioxide 17 L (22-30) mmol/L BUN 91 H (9-20) mg/dL Creatinine 3.74 H (0.66-1.25) mg/dL Glucose 129 H (74-99) mg/dL POC Glucose (mg/dL) 144 H (75-99) mg/dL Calcium 7.5 L (8.4-10.2) mg/dL Lactate Dehydrogenase (313-618) U/L C-Reactive Protein (<10.0) mg/L Microbiology - Last 24 Hours (Table) 07/08/20 03:13 Gram Stain - Preliminary Sputum Sputum Culture - Preliminary 07/04/20 19:38 Blood Culture - Preliminary Blood No Growth after 96 hours 07/07/20 00:01 Gram Stain - Preliminary Sputum Sputum Culture - Preliminary Beta Hemolytic Strep Group C Diabetes panel 07/09/20 Range/Units 05:05 Sodium 136 L (137-145) mmol/L Potassium 6.4 H* (3.5-5.1) mmol/L Chloride 108 H (98-107) mmol/L Carbon Dioxide 17 L (22-30) mmol/L BUN 91 H (9-20) mg/dL Creatinine 3.74 H (0.66-1.25) mg/dL Glucose 129 H (74-99) mg/dL Calcium 7.5 L (8.4-10.2) mg/dL Calcium panel 07/09/20 Range/Units 05:05 Calcium 7.5 L (8.4-10.2) mg/dL Pituitary panel 07/09/20 Range/Units 05:05 Sodium 136 L (137-145) mmol/L Potassium 6.4 H* (3.5-5.1) mmol/L Chloride 108 H (98-107) mmol/L Carbon Dioxide 17 L (22-30) mmol/L BUN 91 H (9-20) mg/dL Creatinine 3.74 H (0.66-1.25) mg/dL Glucose 129 H (74-99) mg/dL Calcium 7.5 L (8.4-10.2) mg/dL Adrenal panel 07/09/20 Range/Units 05:05 Sodium 136 L (137-145) mmol/L Potassium 6.4 H* (3.5-5.1) mmol/L Chloride 108 H (98-107) mmol/L Carbon Dioxide 17 L (22-30) mmol/L BUN 91 H (9-20) mg/dL Creatinine 3.74 H (0.66-1.25) mg/dL Glucose 129 H (74-99) mg/dL Calcium 7.5 L (8.4-10.2) mg/dL - Imaging Comments: Doppler left upper extremity negative for DVT. However, exam remains positive for SVT of the left cephalic and basilic veins as seen previously. Arterial ultrasound left upper extremity pending Assessment and Plan Assessment: 1. Cold left upper extremity 2. Acute hypoxic respiratory failure due to Covid-19 pneumonia 3. Thrombocytopenia, likely heparin-induced 4. Hypertension 5. Obesity 6. Obstructive sleep apnea Plan: 1. Continue symptomatic and supportive care 2. Continue medical treatment and recommendations per ICU medical team 3. Venous ultrasound reviewed 4. Left upper extremity Arterial doppler reviewed 5. Patient is extremely high risk for any vascular surgical intervention at this time, will hold off on any surgical intervention at this time Thank you for this consultation, Further recommendations to follow pending clinical course The impression and plan of care has been dictated as directed. Dr. Silva I performed a history and examination of this patient, discussed the same with the dictator. I agree with the dictator's note ,documented as a scribe. Any additional findings or plans will be noted. <Jennifer Silva - Last Filed: 07/09/20 16:24> Surgical - Exam Vital Signs Temp Pulse Resp BP Pulse Ox 98.2 F 56 L 24 108/71 95 07/04/20 18:30 07/04/20 18:30 07/04/20 18:30 07/04/20 18:30 07/04/20 18:30 Results - Labs 07/09/20 05:05 07/09/20 05:05 Abnormal Lab Results - Last 24 Hours (Table) 07/08/20 07/09/20 07/09/20 Range/Units 18:03 00:16 04:47 WBC (3.8-10.6) k/uL RBC (4.30-5.90) m/uL Hgb (13.0-17.5) gm/dL Hct (39.0-53.0) % Plt Count (150-450) k/uL Neutrophils # (1.3-7.7) k/uL Lymphocytes # (1.0-4.8) k/uL APTT (22.0-30.0) sec ABG pH 7.14 L* (7.35-7.45) ABG pCO2 55 H (35-45) mmHg ABG pO2 74 L (83-108) mmHg ABG HCO3 19 L (21-25) mmol/L ABG O2 Saturation 93.1 L (94-97) % Sodium (137-145) mmol/L Potassium (3.5-5.1) mmol/L Chloride (98-107) mmol/L Carbon Dioxide (22-30) mmol/L BUN (9-20) mg/dL Creatinine (0.66-1.25) mg/dL Glucose (74-99) mg/dL POC Glucose (mg/dL) 155 H 145 H (75-99) mg/dL Calcium (8.4-10.2) mg/dL Lactate Dehydrogenase (313-618) U/L C-Reactive Protein (<10.0) mg/L Procalcitonin (0.02-0.09) ng/mL 07/09/20 07/09/20 07/09/20 Range/Units 05:05 05:05 05:05 WBC 17.0 H (3.8-10.6) k/uL RBC 4.07 L (4.30-5.90) m/uL Hgb 11.9 L (13.0-17.5) gm/dL Hct 35.8 L (39.0-53.0) % Plt Count 76 L (150-450) k/uL Neutrophils # 15.8 H (1.3-7.7) k/uL Lymphocytes # 0.5 L (1.0-4.8) k/uL APTT (22.0-30.0) sec ABG pH (7.35-7.45) ABG pCO2 (35-45) mmHg ABG pO2 (83-108) mmHg ABG HCO3 (21-25) mmol/L ABG O2 Saturation (94-97) % Sodium (137-145) mmol/L Potassium (3.5-5.1) mmol/L Chloride (98-107) mmol/L Carbon Dioxide (22-30) mmol/L BUN (9-20) mg/dL Creatinine (0.66-1.25) mg/dL Glucose (74-99) mg/dL POC Glucose (mg/dL) (75-99) mg/dL Calcium (8.4-10.2) mg/dL Lactate Dehydrogenase 1316 H (313-618) U/L C-Reactive Protein 30.8 H (<10.0) mg/L Procalcitonin 0.32 H (0.02-0.09) ng/mL 07/09/20 07/09/20 07/09/20 Range/Units 05:05 06:08 12:36 WBC (3.8-10.6) k/uL RBC (4.30-5.90) m/uL Hgb (13.0-17.5) gm/dL Hct (39.0-53.0) % Plt Count (150-450) k/uL Neutrophils # (1.3-7.7) k/uL Lymphocytes # (1.0-4.8) k/uL APTT (22.0-30.0) sec ABG pH (7.35-7.45) ABG pCO2 (35-45) mmHg ABG pO2 (83-108) mmHg ABG HCO3 (21-25) mmol/L ABG O2 Saturation (94-97) % Sodium 136 L (137-145) mmol/L Potassium 6.4 H* (3.5-5.1) mmol/L Chloride 108 H (98-107) mmol/L Carbon Dioxide 17 L (22-30) mmol/L BUN 91 H (9-20) mg/dL Creatinine 3.74 H (0.66-1.25) mg/dL Glucose 129 H (74-99) mg/dL POC Glucose (mg/dL) 144 H 151 H (75-99) mg/dL Calcium 7.5 L (8.4-10.2) mg/dL Lactate Dehydrogenase (313-618) U/L C-Reactive Protein (<10.0) mg/L Procalcitonin (0.02-0.09) ng/mL 07/09/20 Range/Units 14:58 WBC (3.8-10.6) k/uL RBC (4.30-5.90) m/uL Hgb (13.0-17.5) gm/dL Hct (39.0-53.0) % Plt Count (150-450) k/uL Neutrophils # (1.3-7.7) k/uL Lymphocytes # (1.0-4.8) k/uL APTT 59.6 H (22.0-30.0) sec ABG pH (7.35-7.45) ABG pCO2 (35-45) mmHg ABG pO2 (83-108) mmHg ABG HCO3 (21-25) mmol/L ABG O2 Saturation (94-97) % Sodium (137-145) mmol/L Potassium (3.5-5.1) mmol/L Chloride (98-107) mmol/L Carbon Dioxide (22-30) mmol/L BUN (9-20) mg/dL Creatinine (0.66-1.25) mg/dL Glucose (74-99) mg/dL POC Glucose (mg/dL) (75-99) mg/dL Calcium (8.4-10.2) mg/dL Lactate Dehydrogenase (313-618) U/L C-Reactive Protein (<10.0) mg/L Procalcitonin (0.02-0.09) ng/mL Microbiology - Last 24 Hours (Table) 07/07/20 00:01 Gram Stain - Final Sputum Sputum Culture - Final Beta Hemolytic Strep Group C 07/08/20 03:13 Gram Stain - Preliminary Sputum Sputum Culture - Preliminary 07/04/20 19:38 Blood Culture - Preliminary Blood No Growth after 96 hours Diabetes panel 07/09/20 Range/Units 05:05 Sodium 136 L (137-145) mmol/L Potassium 6.4 H* (3.5-5.1) mmol/L Chloride 108 H (98-107) mmol/L Carbon Dioxide 17 L (22-30) mmol/L BUN 91 H (9-20) mg/dL Creatinine 3.74 H (0.66-1.25) mg/dL Glucose 129 H (74-99) mg/dL Calcium 7.5 L (8.4-10.2) mg/dL Calcium panel 07/09/20 Range/Units 05:05 Calcium 7.5 L (8.4-10.2) mg/dL Pituitary panel 07/09/20 Range/Units 05:05 Sodium 136 L (137-145) mmol/L Potassium 6.4 H* (3.5-5.1) mmol/L Chloride 108 H (98-107) mmol/L Carbon Dioxide 17 L (22-30) mmol/L BUN 91 H (9-20) mg/dL Creatinine 3.74 H (0.66-1.25) mg/dL Glucose 129 H (74-99) mg/dL Calcium 7.5 L (8.4-10.2) mg/dL Adrenal panel 07/09/20 Range/Units 05:05 Sodium 136 L (137-145) mmol/L Potassium 6.4 H* (3.5-5.1) mmol/L Chloride 108 H (98-107) mmol/L Carbon Dioxide 17 L (22-30) mmol/L BUN 91 H (9-20) mg/dL Creatinine 3.74 H (0.66-1.25) mg/dL Glucose 129 H (74-99) mg/dL Calcium 7.5 L (8.4-10.2) mg/dL
--- NOTE | 2020-07-09 10:48 | P.PN ---
Subjective Progress Note Date: 07/09/20 Principal diagnosis: Coffee ground in NG tube Should seen and examined in the ICU. He is on mechanical ventilation. She is having worsening respiratory status, decrease in his platelets and thought to have heparin-induced thrombocytopenia. He has had and increased bruising, p etechiae, and bleeding from his access sites. He was also noted today to have a left cold hand for which vascular surgical services has been consulted. Tube feedings were initiated yesterday, however on residual there was 400 mL output so is on hold at this time. No other evidence of a GI bleed at this time. Hemoglobin is stable at 11.9. Objective - Vital Signs Vital signs: Vital Signs Temp 98.7 F 07/09/20 04:00 Pulse 84 07/09/20 07:00 Resp 30 H 07/09/20 07:00 BP 121/73 07/09/20 07:00 Pulse Ox 96 07/09/20 07:00 Intake & Output 07/08/20 07/09/20 07/09/20 18:59 06:59 18:59 Intake Total 7407.738 3212.167 134.919 Output Total 375 240 15 Balance 5246.929 5460.167 119.919 Weight 115.6 kg 119.9 kg Intake: IV 996 1020 86 Pressure Bag 36 60 6 Sodium Chloride 0.9% 1, 960 960 80 000 ml @ 80 mls/hr IV . [id number] [facility]AFUL Rx#:[id number] Intake, IV Titration 388.158 762.167 48.919 Amount Cisatracurium 200 mg In 9.364 190.636 Sodium Chloride 0.9% 180 ml @ 1 MCG/KG/MIN 6.936 mls/hr IV .Q24H [facility] Rx#: [id number] Norepinephrine 8 mg In 78.794 Sodium Chloride 0.9% 250 ml @ 0.05 MCG/KG/MIN 11. 01 mls/hr IV .[id number] [facility] Rx#:[id number] fentaNYL (PF) 1,000 mcg 75.814 In Sodium Chloride 0.9% 80 ml @ Per Protocol IV . Q0M [facility] Rx#:[id number] propofoL 1,000 mg In 300 495.717 48.919 Empty Bag 1 bag @ Titrate IV .Q0M [facility]AFUL Rx#: [id number] Tube Feeding 75 180 Other 30 90 Output: Urine 375 240 15 Other: Voiding Method Indwelling Catheter Indwelling Catheter - Exam General appearance: Dated on mechanical ventilation HET: Head is normocephalic and atraumatic. Conjunctiva pink. Sclera anicteric. Neck: Supple without lymphadenopathy. Abdomen: Soft, obese, nontender, nondistended with bowel sounds. No guarding or rigidity. Extremities: Normal skin color and turgor. No pedal edema Skin: No rashes, no jaundice Neurological: Sedated on mechanical ventilation.. - Labs CBC & Chem 7: 07/09/20 05:05 07/09/20 05:05 Labs: Abnormal Lab Results - Last 24 Hours (Table) 07/08/20 07/08/20 07/09/20 Range/Units 11:57 18:03 00:16 WBC (3.8-10.6) k/uL RBC (4.30-5.90) m/uL Hgb (13.0-17.5) gm/dL Hct (39.0-53.0) % Plt Count (150-450) k/uL Neutrophils # (1.3-7.7) k/uL Lymphocytes # (1.0-4.8) k/uL ABG pH (7.35-7.45) ABG pCO2 (35-45) mmHg ABG pO2 (83-108) mmHg ABG HCO3 (21-25) mmol/L ABG O2 Saturation (94-97) % Sodium (137-145) mmol/L Potassium (3.5-5.1) mmol/L Chloride (98-107) mmol/L Carbon Dioxide (22-30) mmol/L BUN (9-20) mg/dL Creatinine (0.66-1.25) mg/dL Glucose (74-99) mg/dL POC Glucose (mg/dL) 148 H 155 H 145 H (75-99) mg/dL Calcium (8.4-10.2) mg/dL Lactate Dehydrogenase (313-618) U/L C-Reactive Protein (<10.0) mg/L 07/09/20 07/09/20 07/09/20 Range/Units 04:47 05:05 05:05 WBC 17.0 H (3.8-10.6) k/uL RBC 4.07 L (4.30-5.90) m/uL Hgb 11.9 L (13.0-17.5) gm/dL Hct 35.8 L (39.0-53.0) % Plt Count 76 L (150-450) k/uL Neutrophils # 15.8 H (1.3-7.7) k/uL Lymphocytes # 0.5 L (1.0-4.8) k/uL ABG pH 7.14 L* (7.35-7.45) ABG pCO2 55 H (35-45) mmHg ABG pO2 74 L (83-108) mmHg ABG HCO3 19 L (21-25) mmol/L ABG O2 Saturation 93.1 L (94-97) % Sodium (137-145) mmol/L Potassium (3.5-5.1) mmol/L Chloride (98-107) mmol/L Carbon Dioxide (22-30) mmol/L BUN (9-20) mg/dL Creatinine (0.66-1.25) mg/dL Glucose (74-99) mg/dL POC Glucose (mg/dL) (75-99) mg/dL Calcium (8.4-10.2) mg/dL Lactate Dehydrogenase 1316 H (313-618) U/L C-Reactive Protein 30.8 H (<10.0) mg/L 07/09/20 07/09/20 Range/Units 05:05 06:08 WBC (3.8-10.6) k/uL RBC (4.30-5.90) m/uL Hgb (13.0-17.5) gm/dL Hct (39.0-53.0) % Plt Count (150-450) k/uL Neutrophils # (1.3-7.7) k/uL Lymphocytes # (1.0-4.8) k/uL ABG pH (7.35-7.45) ABG pCO2 (35-45) mmHg ABG pO2 (83-108) mmHg ABG HCO3 (21-25) mmol/L ABG O2 Saturation (94-97) % Sodium 136 L (137-145) mmol/L Potassium 6.4 H* (3.5-5.1) mmol/L Chloride 108 H (98-107) mmol/L Carbon Dioxide 17 L (22-30) mmol/L BUN 91 H (9-20) mg/dL Creatinine 3.74 H (0.66-1.25) mg/dL Glucose 129 H (74-99) mg/dL POC Glucose (mg/dL) 144 H (75-99) mg/dL Calcium 7.5 L (8.4-10.2) mg/dL Lactate Dehydrogenase (313-618) U/L C-Reactive Protein (<10.0) mg/L Microbiology - Last 24 Hours (Table) 07/08/20 03:13 Gram Stain - Preliminary Sputum Sputum Culture - Preliminary 07/04/20 19:38 Blood Culture - Preliminary Blood No Growth after 96 hours 07/07/20 00:01 Gram Stain - Preliminary Sputum Sputum Culture - Preliminary Beta Hemolytic Strep Group C Assessment and Plan (1) Coffee ground emesis Current Visit: Yes Status: Acute Code(s): K92.0 - HEMATEMESIS SNOMED Code(s): 35925276 (2) Pneumonia due to COVID-19 virus Current Visit: Yes Status: Acute Code(s): U07.1 - COVID-19; J12.82 - Pneumonia due to coronavirus disease 2019 SNOMED Code(s): 438553430128599934 Plan: 1. Continue symptomatic and supportive care 2. Daily CBC 3. Continue to watch for signs and symptoms of GI bleed 4. Hold tube feedings for now, restart in the morning at 10 mL per hour 5. Thank you for this consultation, we will continue to follow Dr. Acevedo I agree with the dictator's note, documented as a scribe by Leonela Johnson.
--- NOTE | 2020-07-09 11:44 | P.PN ---
Subjective Progress Note Date: 07/09/20 Principal diagnosis: Acute hypoxemic respiratory failure secondary to acute CoVID 19 pneumonia/pneumonitis This is a 59-year-old male who presented to the emergency department and apparently tested positive for COVID 8 days ago. The patient has apparently been sick for about 10 days. His complaints included weakness and difficulty breathing. In addition, the patient had cough. Patient apparently denied fever, headache, pain, or other complaints initially. Patient is legally blind. The patient did not receive the coronavirus vaccination. Apparently, in the emergency department, his respiratory status declined, and he was intubated. The patient on the volume assist control mode rate of 24, breathing 30 times a minute, tidal volume 450, FiO2 100%, PEEP of 5 being increased to 10. Arterial blood gases show pO2 75, pCO2 33, pH is 7.44. He is receiving propofol at 30 mcg/kg/m, heparin via weightbase protocol, and saline at 20 mL an hour. The patient has a history of hypertension, heart posterior arthritis, sleep apnea, and is legally blind. Chest x-ray shows diffuse bilateral infiltrates. White count 6.3, hemoglobin 12.5, hematocrit 36.8, platelet count 216,000. PTT is 35.4. D-dimer 0.68. Sodium 134, potassium 4.3, chlorides 100, CO2 23, anion gap 11, BUN 39, creatinine 1.70. Troponins were 1.270 and 0.997. C-reactive protein is 261, N-terminal proBNP 4540. Pro-calcitonin is 0.23. Urine is negative both for nitrite and leukocyte esterase. Occasional bacteria, and few white blood cell clumps. Patient seen today 07/07/2020 in follow-up in the intensive care unit. He remains intubated on mechanical ventilator assist control mode. Rate of 24, tidal volume 450, FiO2 100% and a PEEP of 15. Morning blood gases reveal a pO2 135, pCO2 55, pH 7.22. He remains sedated on propofol at 60 mcg/kg/m. Norepinephrine at 0.03 mcg/kg/m. 0.9 normal saline at 80 MLS per hour. Tube feedings have not been initiated yet due to increased output from the NG tube which is coffee-ground in color. Blood cultures reveal no growth. Urine culture reveal no growth. Sputum cultures pending. White count 18.2. Hemoglobin 13.7. Platelet count 110. D-dimer greater than 34. Sodium 137. Potassium 5.9. Creatinine 1.55. Ferritin 5795. LDH 2301. C-reactive protein 147. Glucose 148. He is continued on bronchodilators, dexamethasone, vitamin supplements. He remains on Levaquin. Chest x-ray reveals scattered airspace infiltrates bilaterally. Unchanged. He did receive Tocilizumab. The patient is seen today 07/08/2020 and follow-up in the intensive care unit. He remains intubated and on the mechanical ventilator. Assist-control mode at a rate of 30, tidal volume 450, FiO2 80% and a PEEP of 15. Morning blood gases reveal a P O2 of 91, P CO2 of 49, pH 7.22. He is sedated on propofol at 60 mcg/kg/m. Norepinephrine at 6 mcg/m. 0.9 normal saline at 80 MLS per hour. He was initiated back on his Lovenox yesterday due to d-dimer greater than 34 but was again discontinued. GI services are on the case. White count 20.8. Hemoglobin 12.4. Platelet count 90,000. Sodium 136. Potassium 5.4. Creatinine 2.83. Remains on dexamethasone, vitamin supplements. Antibiotics in the form of Levaquin. Follow-up blood culture reveals no growth. Sputum culture pending. Urine culture revealed no growth. The patient is seen today 07/09/2020 in follow-up in the intensive care unit. He remains intubated, sedated on the mechanical ventilator. Current settings assist-control mode at a rate of 30, tidal volume 450, FiO2 40% and a PEEP of 18. Morning blood gases revealed a PaO2 of 74, pCO2 55, pH 7.14. He is sedated with propofol at 60 mcg/kg/m. Fentanyl drip at 0.5 mcg/kg/h. Nimbex at 1 mcg/kg/m. Being nourished with Nepro at 15 ML's per hour which is his goal. Chest x-ray continues to show patchy bilateral infiltrates, increased in the left midlung. He is now noted to have a cool and dusky left hand with no palpable pulse. Venous Doppler did not reveal any DVT of the left upper extremity. However there is superficial thrombus noted in the left cephalic vein and left basilic vein as noted previously. Follow-up sputum culture pending. White count 17.0. Hemoglobin 11.9. Platelet count 76,000. Lymphocytes 0.5. Sodium 136. Potassium 6.4. Bicarb 17. BUN 91. Creatinine 3.74. Glucose 125. LDH 1316, C-reactive protein 30.8. He has been initiated on argatroban at 0.5 mcg/kg/m. HIT antibodies are pending. He has been initiated on D5W with 3 A of sodium bicarb at 70 ML's per hour. Remains on dexamethasone and vitamin supplements. Objective - Vital Signs Vital signs: Vital Signs Temp 98.7 F 07/09/20 04:00 Pulse 84 07/09/20 07:00 Resp 30 H 07/09/20 07:00 BP 121/73 07/09/20 07:00 Pulse Ox 96 07/09/20 07:00 Intake & Output 07/08/20 07/09/20 07/09/20 18:59 06:59 18:59 Intake Total 0437.614 9036.167 134.919 Output Total 375 240 15 Balance 5542.864 7479.167 119.919 Weight 115.6 kg 119.9 kg Intake: IV 996 1020 86 Pressure Bag 36 60 6 Sodium Chloride 0.9% 1, 960 960 80 000 ml @ 80 mls/hr IV . [id number] PRAFUL Rx#:[id number] Intake, IV Titration 388.158 762.167 48.919 Amount Cisatracurium 200 mg In 9.364 190.636 Sodium Chloride 0.9% 180 ml @ 1 MCG/KG/MIN 6.936 mls/hr IV .Q24H PRAFUL Rx#: [id number] Norepinephrine 8 mg In 78.794 Sodium Chloride 0.9% 250 ml @ 0.05 MCG/KG/MIN 11. 01 mls/hr IV .[id number] PRAFUL Rx#:[id number] fentaNYL (PF) 1,000 mcg 75.814 In Sodium Chloride 0.9% 80 ml @ Per Protocol IV . Q0M [facility]UL Rx#:[id number] propofoL 1,000 mg In 300 495.717 48.919 Empty Bag 1 bag @ Titrate IV .Q0M PRAFUL Rx#: [id number] Tube Feeding 75 180 Other 30 90 Output: Urine 375 240 15 Other: Voiding Method Indwelling Catheter Indwelling Catheter - Exam GENERAL EXAM: Intubated, sedated 59-year-old gentleman, on the mechanical ventilator currently on 40% FiO2, in no apparent distress. HEAD: Normocephalic. EYES: Sluggish reaction of pupils, equal size. NOSE: Clear with pink turbinates. THROAT: Oral endotracheal and gastric tube secured in place No erythema or exudates. NECK: No masses, no JVD. CHEST: No chest wall deformity. LUNGS: Equal air entry with crackles in the bilateral posterior bases CVS: S1 and S2 normal with no audible murmur, regular rhythm. ABDOMEN: No hepatosplenomegaly, normal bowel sounds, no guarding or rigidity. SPINE: No scoliosis or deformity SKIN: No rashes, some oozing from the scrotum CENTRAL NERVOUS SYSTEM: Sedated. No focal deficits, tone is normal in all 4 extremities. EXTREMITIES: Left upper extremity cool, dusky, pulseless. - Labs CBC & Chem 7: 07/09/20 05:05 07/09/20 05:05 Labs: Abnormal Lab Results - Last 24 Hours (Table) 07/08/20 07/08/20 07/09/20 Range/Units 11:57 18:03 00:16 WBC (3.8-10.6) k/uL RBC (4.30-5.90) m/uL Hgb (13.0-17.5) gm/dL Hct (39.0-53.0) % Plt Count (150-450) k/uL Neutrophils # (1.3-7.7) k/uL Lymphocytes # (1.0-4.8) k/uL ABG pH (7.35-7.45) ABG pCO2 (35-45) mmHg ABG pO2 (83-108) mmHg ABG HCO3 (21-25) mmol/L ABG O2 Saturation (94-97) % Sodium (137-145) mmol/L Potassium (3.5-5.1) mmol/L Chloride (98-107) mmol/L Carbon Dioxide (22-30) mmol/L BUN (9-20) mg/dL Creatinine (0.66-1.25) mg/dL Glucose (74-99) mg/dL POC Glucose (mg/dL) 148 H 155 H 145 H (75-99) mg/dL Calcium (8.4-10.2) mg/dL Lactate Dehydrogenase (313-618) U/L C-Reactive Protein (<10.0) mg/L Procalcitonin (0.02-0.09) ng/mL 07/09/20 07/09/20 07/09/20 Range/Units 04:47 05:05 05:05 WBC (3.8-10.6) k/uL RBC (4.30-5.90) m/uL Hgb (13.0-17.5) gm/dL Hct (39.0-53.0) % Plt Count (150-450) k/uL Neutrophils # (1.3-7.7) k/uL Lymphocytes # (1.0-4.8) k/uL ABG pH 7.14 L* (7.35-7.45) ABG pCO2 55 H (35-45) mmHg ABG pO2 74 L (83-108) mmHg ABG HCO3 19 L (21-25) mmol/L ABG O2 Saturation 93.1 L (94-97) % Sodium (137-145) mmol/L Potassium (3.5-5.1) mmol/L Chloride (98-107) mmol/L Carbon Dioxide (22-30) mmol/L BUN (9-20) mg/dL Creatinine (0.66-1.25) mg/dL Glucose (74-99) mg/dL POC Glucose (mg/dL) (75-99) mg/dL Calcium (8.4-10.2) mg/dL Lactate Dehydrogenase 1316 H (313-618) U/L C-Reactive Protein 30.8 H (<10.0) mg/L Procalcitonin 0.32 H (0.02-0.09) ng/mL 07/09/20 07/09/20 07/09/20 Range/Units 05:05 05:05 06:08 WBC 17.0 H (3.8-10.6) k/uL RBC 4.07 L (4.30-5.90) m/uL Hgb 11.9 L (13.0-17.5) gm/dL Hct 35.8 L (39.0-53.0) % Plt Count 76 L (150-450) k/uL Neutrophils # 15.8 H (1.3-7.7) k/uL Lymphocytes # 0.5 L (1.0-4.8) k/uL ABG pH (7.35-7.45) ABG pCO2 (35-45) mmHg ABG pO2 (83-108) mmHg ABG HCO3 (21-25) mmol/L ABG O2 Saturation (94-97) % Sodium 136 L (137-145) mmol/L Potassium 6.4 H* (3.5-5.1) mmol/L Chloride 108 H (98-107) mmol/L Carbon Dioxide 17 L (22-30) mmol/L BUN 91 H (9-20) mg/dL Creatinine 3.74 H (0.66-1.25) mg/dL Glucose 129 H (74-99) mg/dL POC Glucose (mg/dL) 144 H (75-99) mg/dL Calcium 7.5 L (8.4-10.2) mg/dL Lactate Dehydrogenase (313-618) U/L C-Reactive Protein (<10.0) mg/L Procalcitonin (0.02-0.09) ng/mL Microbiology - Last 24 Hours (Table) 07/07/20 00:01 Gram Stain - Final Sputum Sputum Culture - Final Beta Hemolytic Strep Group C 07/08/20 03:13 Gram Stain - Preliminary Sputum Sputum Culture - Preliminary 07/04/20 19:38 Blood Culture - Preliminary Blood No Growth after 96 hours Assessment and Plan Assessment: 1 Acute hypoxemic respiratory failure secondary to acute CoVID 19 pneumonia/pneumonitis requiring mechanical ventilation on 07/05/2020. Received a tocilizumab. 2 Elevated inflammatory markers secondary to above 3 History of obstructive sleep apnea, maintained on CPAP 4 History of blindness 5 Hypertension, history of 6 Osteoarthritis 7 Acute renal failure 8 Hyperkalemia 9 Cool, dusky left upper extremity negative for DVT, however, there is superficial thrombus in the left cephalic vein and left basilic Plan: The patient was seen and evaluated by Dr. Meneses Chest x-ray, ABGs and labs reviewed Respiratory rate increased to 36 Initiated on Argatroban HIT antibodies pending Nephrology consulted Vascular consulted 1 amp of D5 W and 10 units regular insulin for hyperkalemia Continue dexamethasone, vitamin supplements Initiate tube feedings We'll continue to follow and make further recommendations based on his clinical status Critical care time 38 minutes I, the cosigning physician, performed a history & physical examination of the patient. Lungs sounds with bilateral crackles. Maintaining good O2 saturations in the 90s on 40% FiO2 and PEEP of 18 via the mechanical ventilator. I discussed the assessment and plan of care with my nurse practitioner, Zoë Roberts. I attest to the above note as dictated by her.
[2020-07-09 12:41] LABS: Glucose,Whole Blood 151 mg/dL (75-99)
[2020-07-09] MEDS: DEXTROSE 5% IN WATER 1,000 ML with SODIUM BICARB (1 MEQ/ML) 150 ML IV SCH (14:52)
[2020-07-09] MEDS: SODIUM CHLORIDE 0.9% 1,000 ML IV SCH (14:53)
[2020-07-09] MEDS: NOREPINEPHRINE 8 MG in SODIUM CHLORIDE 0.9% 250 ML IV SCH (14:54)
[2020-07-09] MEDS ORDERED: FUROSEMIDE 10 MG/ML 10 ML VIAL IV STA (15:55)
[2020-07-09 17:42] LABS: Glucose,Whole Blood 160 mg/dL (75-99)
--- NOTE | 2020-07-09 21:47 | CONS ---
CONSULTATION REASON FOR CONSULTATION: Renal failure. HISTORY OF PRESENT ILLNESS: Patient is a 59-year-old male who was initially admitted to the hospital on 07/04/2020 with shortness of breath. His respiratory status worsened. He was noted to COVID- positive. The patient was eventually intubated. He also sustained a [id number] MN. Patient is currently maintained on pressors. He has been hypotensive. Urine output has dropped to about 15 to 20 mL over the last few hours. Patient's creatinine was 3.74 today with a potassium of 6.4. We have a previous creatinine on initial admission of 1.38. Patient is also mildly acidotic with CO2 of 17. Blood sugar is not significantly elevated. No active GI bleed noted at this time. PAST MEDICAL HISTORY: Significant for hypertension, osteoarthritis, obstructive sleep apnea, schizophrenia, bipolar disorder, depression, anxiety. Patient is legally blind. PAST SURGICAL HISTORY: Appendectomy, colonoscopy, polypectomy. MEDICATIONS: Medications prior to admission included Zoloft, Abilify, Xanax, vitamin D3, zinc. ALLERGIES: ALLERGIES include PENICILLIN, which causes anaphylaxis. REVIEW OF SYSTEMS: No active bleeding noted. Patient remains on the vent. FiO2 is at 40%. He was tolerating tube feeds. PHYSICAL EXAMINATION: On examination, vital signs are reviewed. Blood pressure this morning was 98/53, heart rate about 70 per minute. Patient is afebrile. This is a limited exam. Case was discussed with nursing staff. He does have edema in his extremities. There is discoloration of his left hand with consideration for possible HIT. He is sedated and on the vent. LABS: Sodium of 136 this morning, potassium 6.4, chloride 108, CO2 17, BUN 91, creatinine 3.74, hemoglobin 11.9 g/dL. ASSESSMENT: 1. Acute kidney injury, acute tubular necrosis, associated with underlying COVID infection as well as hypotension and hypoperfusion, currently oliguric. Will try one dose of Lasix. Continue with the IV fluids. Change to IV bicarb. 2. Metabolic acidosis associated with renal failure. Change IV fluids to IV bicarb. 3. Hyperkalemia associated with acute kidney injury, treated with IV medications. May continue with the Nepro tube feeds and we will recheck serum potassium later on today. Patient may need renal replacement therapy if potassium does not improve. 4. Acute hypoxic respiratory failure, currently on the vent. 5. Elevated troponins; being followed by Cardiology. No plans for any intervention. Heparin is discontinued for possible HIT. PLAN: Treat hyperkalemia with IV insulin and D50 and treat acidosis. Add bicarb drip. Try one dose of Lasix. Repeat labs in a.m. Patient may need renal replacement therapy if his renal function continues to worsen or the hyperkalemia does not improve. Thank you for this consultation. Will continue to follow the patient with you during his hospitalization. MMODL / IJN: [id number] /
[2020-07-09 21:56] LABS: Calcium 7.4 mg/dL (8.4-10.2); Potassium 5.8 mmol/L (3.5-5.1)
--- NOTE | 2020-07-09 23:20 | PN ---
PROGRESS NOTE DATE OF SERVICE: 07/09/2020 REASON FOR FOLLOWUP: Pneumonia. INTERVAL HISTORY: The patient is currently afebrile. The patient remains intubated on the vent. FiO2 is currently at 40%. The patient is noted to have significant output from his NG tube, as he is not tolerating his tube feeds and now with possible GI bleed. No diarrhea has been reported. PHYSICAL EXAMINATION: Blood pressure 115/60 with a pulse of 77, temperature 98. He is 97% on 40% FiO2. General description is a middle-aged male intubated on the vent. RESPIRATORY SYSTEM: Unlabored breathing with decreased intensity of breath sounds. No wheeze. HEART: S1, S2. Regular rate and rhythm. ABDOMEN: Soft. No tenderness. LABS: BUN of 101, creatinine 4.03. Hemoglobin is 11.9, white count 17,000. Sputum with group C strep. DIAGNOSTIC IMPRESSION AND PLAN: Patient with acute respiratory failure which is multifactorial in this patient who did have COVID-19 infection plus/minus secondary bacterial component. Patient is currently covered with Rocephin 2 grams daily in addition to the dexamethasone, ascorbic acid, zinc. Monitor her clinical course closely. Continue with supportive care. MMODL / IJN: [id number] /
--- NOTE | 2020-07-09 23:42 | P.PN ---
Subjective This is a pleasant 53 years old male with past medical history of hypertension, osteoarthritis, sleep apnea. Presents with respiratory distress secondary to covid pneumonia and secondary bacterial infection is suspected as well with positive sputum culture for streptococcus, group C. Patient is currently monitored in the ICU because of his respiratory failure, currently on mechanical ventilation and need a small dose of Levophed at 4 g today. Also patient has elevated troponin and he was started on heparin drip however he developed coffee-ground emesis via anicteric tube, heparin drip was stopped and hemoglobin is stable and normal at 12.4 today. Rand Cementer found to his elevated troponin is secondary to his Covid infection and hypotension, Lovenox is on hold although patient has elevated d-dimer due to coffee ground vomiting. Distal sedation, his blood pressure is marginal 104/60 this morning. Pulmonary team performed closely and help with vent management, his PEEP was increased today from 15-18. His oxygen saturation is guarded at 100% with FiO2 of 70%. Patient has marginal urine output at 20 mL/h and continue with normal saline at 80 mL per hour 07/09/2020 Patient remains in critical condition in the ICU, he is sedated and on mechanical ventilation with pulmonary/critical care team followed closely and management. He still needs high PEEP at 18. Today he had suspected left hand coldness and vascular surgery consult, no intervention indicated given his critical guarded condition. He had coffee-ground emesis yesterday and no such episodes, his aspirin was held as well as his Lovenox and switch his anticoagulation into argatroban drip . 4 dropping platelets 90,to 76K today. It NT chase is pending. His creatinine is worsening with nephrology on the case and patient was started on bicarbonate drip, his normal saline at 80 mL per hour was stopped He remains on ceftriaxone 2 g daily for sputum culture positive with streptococcus group C. Also he is on zinc, vitamin D, dexamethasone, Protonix twice daily and Carafate Review of systems: N/a Active Medications Generic Name Dose Route Start Last Admin Trade Name Freq PRN Reason Stop Dose Admin Albuterol Sulfate 2 puff 07/05/20 08:00 07/09/20 19:37 Albuterol Hfa Inhaler INHALATION 2 puff RT-TID [facility]UL Administration Aripiprazole 5 mg 07/04/20 21:00 07/09/20 23:07 Aripiprazole 5 Mg Tab PO 5 mg BID PRAFUL Administration Artificial Tears 2 drops 07/08/20 16:00 07/09/20 23:14 Artificial Tears-Hypromellose Drops 15 Ml Btl BOTH EYES 2 drops Q4HR PR[facility]UL Administration Chlorhexidine Gluconate 15 ml 07/07/20 09:00 07/09/20 22:51 Chlorhexidine Gluconate 15 Ml Cup MUCOUS MEM 15 ml BID PR[facility]UL Administration Cholecalciferol 125 mcg 07/05/20 09:00 07/09/20 09:02 Cholecalciferol 25 Mcg (1000 Iu) Tablet PO 125 mcg DAILY PR[facility]UL Administration Dexamethasone Sodium Phosphate 6 mg 07/05/20 09:00 07/09/20 09:02 Dexamethasone Sod Phosphate 10 Mg/Ml 1 Ml Vial IV 6 mg DAILY PR[facility]UL Administration Hydromorphone HCl 0.5 mg 07/04/20 20:56 07/08/20 14:21 Hydromorphone 0.5 Mg/0.5 Ml Syringe IVP 0.5 mg Q6HR PRN Administration Severe Pain Propofol 1,000 mg/ IV Solution 100 mls @ 0 mls/hr 07/05/20 04:00 07/09/20 23:09 IV 60 mcg/kg/min .Q0M PR[facility] 43.164 mls/hr Administration Protocol Titrate Norepinephrine Bitartrate 8 mg 258 mls @ 11.01 mls/hr 07/07/20 12:30 07/09/20 14:54 / Sodium Chloride IV 0.03 mcg/kg/min .[id number] PR[facility]UL 6.606 mls/hr Administration Protocol 0.05 MCG/KG/MIN Cisatracurium Besylate 200 mg/ 200 mls @ 6.936 mls/hr 07/08/20 12:45 07/09/20 08:19 Sodium Chloride IV 1 mcg/kg/min .Q24H [facility]UL 6.936 mls/hr Administration Protocol 1 MCG/KG/MIN Fentanyl Citrate 1,000 mcg/ 100 mls @ 0 mls/hr 07/08/20 15:15 07/09/20 18:13 Sodium Chloride IV 0.5 mcg/kg/hr .Q0M [facility] 5.78 mls/hr Administration Protocol Per Protocol Ceftriaxone Sodium 2 gm/ 50 mls @ 100 mls/hr 07/08/20 17:30 07/09/20 09:02 Sodium Chloride IVPB 100 mls/hr Q24HR [facility]UL Administration Argatroban 50 mg/ Sodium 50 mls @ 3.597 mls/hr 07/09/20 09:30 07/09/20 18:15 Chloride IV 0.5 mcg/kg/min .[id number] PR[facility] 3.597 mls/hr Administration Protocol 0.5 MCG/KG/MIN Sodium Bicarbonate 150 ml/ 1,150 mls @ 70 mls/hr 07/09/20 10:15 07/09/20 14:52 Dextrose/Water IV 70 mls/hr .[id number] [facility] Administration Pantoprazole Sodium 40 mg 07/05/20 21:00 07/09/20 23:18 Pantoprazole 40 Mg/10 Ml Vial IVP 40 mg BID PRAFUL Administration Sertraline HCl 200 mg 07/05/20 09:00 07/09/20 09:02 Sertraline 100 Mg Tab PO 200 mg DAILY PRAFUL Administration Sucralfate 1 gm 07/07/20 17:30 07/09/20 22:51 Sucralfate 1 Gm Tab PO 1 gm ACHS PRAFUL Administration Zinc Sulfate 220 mg 07/04/20 21:00 07/09/20 09:02 Zinc Sulfate 220 Mg Cap PO 220 mg DAILY PRAFUL Administration Objective - Vital Signs Vital signs: Vital Signs Temp 97.7 F 07/09/20 13:00 Pulse 73 07/09/20 15:00 Resp 36 H 07/09/20 15:00 BP 104/58 07/09/20 15:00 Pulse Ox 97 07/09/20 15:00 Intake & Output 07/08/20 07/09/20 07/09/20 18:59 06:59 18:59 Intake Total 3095.846 7275.167 787.919 Output Total 375 240 105 Balance 0988.166 6645.167 682.919 Weight 115.6 kg 119.9 kg 119.9 kg Intake: IV 996 1020 374 Pressure Bag 36 60 54 Sodium Chloride 0.9% 1, 960 960 320 000 ml @ 80 mls/hr IV . [id number] [facility] Rx#:[id number] Intake, IV Titration 388.158 762.167 398.919 Amount Cisatracurium 200 mg In 9.364 190.636 Sodium Chloride 0.9% 180 ml @ 1 MCG/KG/MIN 6.936 mls/hr IV .Q24H [facility] Rx#: [id number] Dextrose 5% in Water 1, 350 000 ml @ 70 mls/hr IV . [id number] [facility] with Sodium Bicarb (1 Meq/ml) 150 ml Rx#:[id number] Norepinephrine 8 mg In 78.794 Sodium Chloride 0.9% 250 ml @ 0.05 MCG/KG/MIN 11. 01 mls/hr IV .[id number] [facility] Rx#:[id number] fentaNYL (PF) 1,000 mcg 75.814 In Sodium Chloride 0.9% 80 ml @ Per Protocol IV . Q0M [facility] Rx#:[id number] propofoL 1,000 mg In 300 495.717 48.919 Empty Bag 1 bag @ Titrate IV .Q0M [facility] Rx#: [id number] Tube Feeding 75 180 15 Other 30 90 Output: Urine 375 240 105 Other: Voiding Method Indwelling Catheter Indwelling Catheter Indwelling Catheter - Exam -GENERAL: The patient is intubated and sedated, well nourished. HEENT: Pupils are round and equally reacting to light. EOMI. No scleral icterus. No conjunctival pallor. Normocephalic, atraumatic. No pharyngeal erythema. No thyromegaly. CARDIOVASCULAR: S1 and S2 present. No murmurs, rubs, or gallops. PULMONARY: Chest is clear to auscultation, no wheezing or crackles. ABDOMEN: Soft, nontender, nondistended, normoactive bowel sounds. No palpable organomegaly. MUSCULOSKELETAL: No joint swelling or deformity. EXTREMITIES: No cyanosis, clubbing, or pedal edema. NEUROLOGICAL: Gross neurological examination did not reveal any focal deficits. SKIN: No rashes. no petechiae. - Labs CBC & Chem 7: 07/09/20 05:05 07/09/20 20:30 Labs: Abnormal Lab Results - Last 24 Hours (Table) 07/08/20 07/09/20 07/09/20 Range/Units 18:03 00:16 04:47 WBC (3.8-10.6) k/uL RBC (4.30-5.90) m/uL Hgb (13.0-17.5) gm/dL Hct (39.0-53.0) % Plt Count (150-450) k/uL Neutrophils # (1.3-7.7) k/uL Lymphocytes # (1.0-4.8) k/uL APTT (22.0-30.0) sec ABG pH 7.14 L* (7.35-7.45) ABG pCO2 55 H (35-45) mmHg ABG pO2 74 L (83-108) mmHg ABG HCO3 19 L (21-25) mmol/L ABG O2 Saturation 93.1 L (94-97) % Sodium (137-145) mmol/L Potassium (3.5-5.1) mmol/L Chloride (98-107) mmol/L Carbon Dioxide (22-30) mmol/L BUN (9-20) mg/dL Creatinine (0.66-1.25) mg/dL Glucose (74-99) mg/dL POC Glucose (mg/dL) 155 H 145 H (75-99) mg/dL Calcium (8.4-10.2) mg/dL Lactate Dehydrogenase (313-618) U/L C-Reactive Protein (<10.0) mg/L Procalcitonin (0.02-0.09) ng/mL 07/09/20 07/09/20 07/09/20 Range/Units 05:05 05:05 05:05 WBC 17.0 H (3.8-10.6) k/uL RBC 4.07 L (4.30-5.90) m/uL Hgb 11.9 L (13.0-17.5) gm/dL Hct 35.8 L (39.0-53.0) % Plt Count 76 L (150-450) k/uL Neutrophils # 15.8 H (1.3-7.7) k/uL Lymphocytes # 0.5 L (1.0-4.8) k/uL APTT (22.0-30.0) sec ABG pH (7.35-7.45) ABG pCO2 (35-45) mmHg ABG pO2 (83-108) mmHg ABG HCO3 (21-25) mmol/L ABG O2 Saturation (94-97) % Sodium (137-145) mmol/L Potassium (3.5-5.1) mmol/L Chloride (98-107) mmol/L Carbon Dioxide (22-30) mmol/L BUN (9-20) mg/dL Creatinine (0.66-1.25) mg/dL Glucose (74-99) mg/dL POC Glucose (mg/dL) (75-99) mg/dL Calcium (8.4-10.2) mg/dL Lactate Dehydrogenase 1316 H (313-618) U/L C-Reactive Protein 30.8 H (<10.0) mg/L Procalcitonin 0.32 H (0.02-0.09) ng/mL 07/09/20 07/09/20 07/09/20 Range/Units 05:05 06:08 12:36 WBC (3.8-10.6) k/uL RBC (4.30-5.90) m/uL Hgb (13.0-17.5) gm/dL Hct (39.0-53.0) % Plt Count (150-450) k/uL Neutrophils # (1.3-7.7) k/uL Lymphocytes # (1.0-4.8) k/uL APTT (22.0-30.0) sec ABG pH (7.35-7.45) ABG pCO2 (35-45) mmHg ABG pO2 (83-108) mmHg ABG HCO3 (21-25) mmol/L ABG O2 Saturation (94-97) % Sodium 136 L (137-145) mmol/L Potassium 6.4 H* (3.5-5.1) mmol/L Chloride 108 H (98-107) mmol/L Carbon Dioxide 17 L (22-30) mmol/L BUN 91 H (9-20) mg/dL Creatinine 3.74 H (0.66-1.25) mg/dL Glucose 129 H (74-99) mg/dL POC Glucose (mg/dL) 144 H 151 H (75-99) mg/dL Calcium 7.5 L (8.4-10.2) mg/dL Lactate Dehydrogenase (313-618) U/L C-Reactive Protein (<10.0) mg/L Procalcitonin (0.02-0.09) ng/mL 07/09/20 Range/Units 14:58 WBC (3.8-10.6) k/uL RBC (4.30-5.90) m/uL Hgb (13.0-17.5) gm/dL Hct (39.0-53.0) % Plt Count (150-450) k/uL Neutrophils # (1.3-7.7) k/uL Lymphocytes # (1.0-4.8) k/uL APTT 59.6 H (22.0-30.0) sec ABG pH (7.35-7.45) ABG pCO2 (35-45) mmHg ABG pO2 (83-108) mmHg ABG HCO3 (21-25) mmol/L ABG O2 Saturation (94-97) % Sodium (137-145) mmol/L Potassium (3.5-5.1) mmol/L Chloride (98-107) mmol/L Carbon Dioxide (22-30) mmol/L BUN (9-20) mg/dL Creatinine (0.66-1.25) mg/dL Glucose (74-99) mg/dL POC Glucose (mg/dL) (75-99) mg/dL Calcium (8.4-10.2) mg/dL Lactate Dehydrogenase (313-618) U/L C-Reactive Protein (<10.0) mg/L Procalcitonin (0.02-0.09) ng/mL Microbiology - Last 24 Hours (Table) 07/07/20 00:01 Gram Stain - Final Sputum Sputum Culture - Final Beta Hemolytic Strep Group C 07/08/20 03:13 Gram Stain - Preliminary Sputum Sputum Culture - Preliminary 07/04/20 19:38 Blood Culture - Preliminary Blood No Growth after 96 hours Assessment and Plan Assessment: Acute Covid pneumonia Suspected superimposed bacterial pneumonia with streptococcus Acute hypoxic respiratory failure needing mechanical ventilation Coffee ground vomiting with suspected acute GI bleed Thrombocytopenia Elevated troponin, secondary to renal function impairment, viral infection and hypotension Acute kidney injury Plan: This is a pleasant 59 years old male who presents with Covid pneumonia, possible bacterial pneumonia, and possible GI bleed. Continue with mechanical ventilation for pulmonary/critical care team will follow the patient closely. Continue with multiple vitamin zinc and vitamin D. Continue with ceftriaxone and antibiotics as per ID team. Continue with bicarbonate drip Currently on argatroban drip Infectious disease, GI and cardiology, nephrology team on the case Labs and medication were reviewed.. Continue same treatment. Continue with symptomatic treatment. Resume home medication. Monitor lytes and vitals. DVT and GI prophylaxis. Further recommendationsas per clinical course of the patient DVT prophylaxis: Subcutaneous Lovenox, on hold for possible GI bleed. he is on argatroban drip GI Prophylaxis: Ppi, Protonix twice a day and Carafate Prognosis is guarded
[2020-07-10 00:24] LABS: Glucose,Whole Blood 144 mg/dL (75-99)
[2020-07-10] MEDS: ARTIFICIAL TEARS-HYPROMELLOSE DROPS 15 ML BTL BOTH EYES SCH ×7 (04:00→23:31)
[2020-07-10 05:36] LABS: Glucose,Whole Blood 117 mg/dL (75-99)
[2020-07-10 06:13] LABS: Albumin 2.6 g/dL (3.5-5.0); C Reactive Protein 16.4 mg/L (<10.0); Calcium 7.1 mg/dL (8.4-10.2); Potassium 5.3 mmol/L (3.5-5.1); Total Bilirubin 0.9 mg/dL (0.2-1.3)
[2020-07-10 06:16] LABS: Basophils # (A) 0.1 k/uL (0-0.2); Basophils % (A) 0 %; Eosinophils % (A) 0 %; HCT 26.6 % (39.0-53.0); Lymphocytes # (A) 0.4 k/uL (1.0-4.8); Lymphocytes % (A) 3 %; MCHC 33.5 g/dL (31.0-37.0); MCV 86.7 fL (80.0-100.0); Mean Platelet Volume 9.3; Monocytes # (A) 0.4 k/uL (0-1.0); Monocytes % (A) 3 %; Neutrophils # (A) 11.8 k/uL (1.3-7.7); Neutrophils % (A) 92 %; RBC 3.07 m/uL (4.30-5.90); RDW 13.7 % (11.5-15.5); WBC 12.8 k/uL (3.8-10.6)
[2020-07-10 06:18] LABS: HGB 8.9 gm/dL (13.0-17.5); Platelet Count 78 k/uL (150-450)
[2020-07-10 06:19] LABS: D-Dimer 23.24 mg/L FEU (<0.60); Partial Thromboplastin Time 57.9 sec (22.0-30.0)
[2020-07-10 06:24] LABS: ABG Base Excess -7.4 mmol/L; ABG HCO3 20 mmol/L (21-25); ABG Oxygen Saturation 96.8 % (94-97); ABG PCO2 46 mmHg (35-45); ABG PH 7.24 (7.35-7.45); ABG PO2 95 mmHg (83-108); ABG TCO2 21 mmol/L (19-24); Allen Test Performed? Yes
--- NOTE | 2020-07-10 06:38 | P.PN ---
Subjective Progress Note Date: 07/10/20 Principal diagnosis: Abnormal cardiac enzymes This is a 59-year-old gentleman who was diagnosed with sepsis related to COVID- 19 infection and pneumonia and developed acute hypoxic respiratory failure. We consulted to see the patient mainly because of abnormal cardiac enzymes. The patient was seen today July 102020. Unfortunately he still not doing well from the pulmonary standpoint of view and he continues to be intubated on mechanical ventilation and he is on high FiO2. He still have gastrointestinal bleeding. The platelet are not back yet. Antibodies for hit was sent yesterday and still not back yet. He is on Argatroban. Objective - Vital Signs Vital signs: Vital Signs Temp 98.3 F 07/10/20 04:00 Pulse 71 07/10/20 06:00 Resp 36 H 07/10/20 06:00 BP 107/53 07/10/20 06:00 Pulse Ox 97 07/10/20 05:00 Intake & Output 07/09/20 07/09/20 07/10/20 06:59 18:59 06:59 Intake Total 2052.167 1224.241 854.23 Output Total 240 145 770 Balance 0688.013 1337.241 84.23 Weight 119.9 kg 119.9 kg Intake: IV 1020 392 12 Pressure Bag 60 72 12 Sodium Chloride 0.9% 1, 960 320 000 ml @ 80 mls/hr IV . [id number] [facility] Rx#:[id number] Intake, IV Titration 762.167 817.241 812.23 Amount Argatroban 50 mg In 29.136 Sodium Chloride 0.9% 50 ml @ 0.5 MCG/KG/MIN 3.597 mls/hr IV .[id number] [facility] Rx#:[id number] Cisatracurium 200 mg In 190.636 Sodium Chloride 0.9% 180 ml @ 1 MCG/KG/MIN 6.936 mls/hr IV .Q24H [facility] Rx#: [id number] Dextrose 5% in Water 1, 560 700 000 ml @ 70 mls/hr IV . [id number] [facility] with Sodium Bicarb (1 Meq/ml) 150 ml Rx#:[id number] fentaNYL (PF) 1,000 mcg 75.814 79.186 In Sodium Chloride 0.9% 80 ml @ Per Protocol IV . Q0M [facility] Rx#:[id number] propofoL 1,000 mg In 495.717 148.919 112.23 Empty Bag 1 bag @ Titrate IV .Q0M [facility] Rx#: [id number] Oral 30 Tube Feeding 180 15 Other 90 Output: Gastric Drainage 500 Urine 240 145 270 Other: Voiding Method Indwelling Catheter Indwelling Catheter Indwelling Catheter - Labs CBC & Chem 7: 07/10/20 05:40 07/09/20 20:30 Labs: Abnormal Lab Results - Last 24 Hours (Table) 07/09/20 07/09/20 07/09/20 Range/Units 05:05 05:05 05:05 WBC 17.0 H (3.8-10.6) k/uL RBC 4.07 L (4.30-5.90) m/uL Hgb 11.9 L (13.0-17.5) gm/dL Hct 35.8 L (39.0-53.0) % Plt Count 76 L (150-450) k/uL Neutrophils # 15.8 H (1.3-7.7) k/uL Lymphocytes # 0.5 L (1.0-4.8) k/uL APTT (22.0-30.0) sec D-Dimer (<0.60) mg/L FEU ABG pH (7.35-7.45) ABG pCO2 (35-45) mmHg ABG HCO3 (21-25) mmol/L Sodium 136 L (137-145) mmol/L Potassium 6.4 H* (3.5-5.1) mmol/L Chloride 108 H (98-107) mmol/L Carbon Dioxide 17 L (22-30) mmol/L BUN 91 H (9-20) mg/dL Creatinine 3.74 H (0.66-1.25) mg/dL Glucose 129 H (74-99) mg/dL POC Glucose (mg/dL) (75-99) mg/dL Calcium 7.5 L (8.4-10.2) mg/dL Procalcitonin 0.32 H (0.02-0.09) ng/mL 07/09/20 07/09/20 07/09/20 Range/Units 12:36 14:58 17:39 WBC (3.8-10.6) k/uL RBC (4.30-5.90) m/uL Hgb (13.0-17.5) gm/dL Hct (39.0-53.0) % Plt Count (150-450) k/uL Neutrophils # (1.3-7.7) k/uL Lymphocytes # (1.0-4.8) k/uL APTT 59.6 H (22.0-30.0) sec D-Dimer (<0.60) mg/L FEU ABG pH (7.35-7.45) ABG pCO2 (35-45) mmHg ABG HCO3 (21-25) mmol/L Sodium (137-145) mmol/L Potassium (3.5-5.1) mmol/L Chloride (98-107) mmol/L Carbon Dioxide (22-30) mmol/L BUN (9-20) mg/dL Creatinine (0.66-1.25) mg/dL Glucose (74-99) mg/dL POC Glucose (mg/dL) 151 H 160 H (75-99) mg/dL Calcium (8.4-10.2) mg/dL Procalcitonin (0.02-0.09) ng/mL 07/09/20 07/10/20 07/10/20 Range/Units 20:30 00:22 05:31 WBC (3.8-10.6) k/uL RBC (4.30-5.90) m/uL Hgb (13.0-17.5) gm/dL Hct (39.0-53.0) % Plt Count (150-450) k/uL Neutrophils # (1.3-7.7) k/uL Lymphocytes # (1.0-4.8) k/uL APTT (22.0-30.0) sec D-Dimer (<0.60) mg/L FEU ABG pH (7.35-7.45) ABG pCO2 (35-45) mmHg ABG HCO3 (21-25) mmol/L Sodium 134 L (137-145) mmol/L Potassium 5.8 H (3.5-5.1) mmol/L Chloride (98-107) mmol/L Carbon Dioxide 17 L (22-30) mmol/L BUN 101 H* (9-20) mg/dL Creatinine 4.03 H (0.66-1.25) mg/dL Glucose 146 H (74-99) mg/dL POC Glucose (mg/dL) 144 H 117 H (75-99) mg/dL Calcium 7.4 L (8.4-10.2) mg/dL Procalcitonin (0.02-0.09) ng/mL 07/10/20 07/10/20 07/10/20 Range/Units 05:40 05:40 06:18 WBC 12.8 H (3.8-10.6) k/uL RBC 3.07 L (4.30-5.90) m/uL Hgb 8.9 L D (13.0-17.5) gm/dL Hct 26.6 L (39.0-53.0) % Plt Count 78 L (150-450) k/uL Neutrophils # 11.8 H (1.3-7.7) k/uL Lymphocytes # 0.4 L (1.0-4.8) k/uL APTT 57.9 H (22.0-30.0) sec D-Dimer 23.24 H (<0.60) mg/L FEU ABG pH 7.24 L (7.35-7.45) ABG pCO2 46 H (35-45) mmHg ABG HCO3 20 L (21-25) mmol/L Sodium (137-145) mmol/L Potassium (3.5-5.1) mmol/L Chloride (98-107) mmol/L Carbon Dioxide (22-30) mmol/L BUN (9-20) mg/dL Creatinine (0.66-1.25) mg/dL Glucose (74-99) mg/dL POC Glucose (mg/dL) (75-99) mg/dL Calcium (8.4-10.2) mg/dL Procalcitonin (0.02-0.09) ng/mL Microbiology - Last 24 Hours (Table) 07/04/20 19:38 Blood Culture - Preliminary Blood No Growth after 120 hours 07/07/20 00:01 Gram Stain - Final Sputum Sputum Culture - Final Beta Hemolytic Strep Group C Assessment and Plan Assessment: Assessment #1 sepsis with covid-19 #2 acute hypoxic respiratory failure secondary to above #3 hypotension secondary to the above and that has improved #4 abnormal troponin #5 acute renal failure #6 possible HIT Plan #1 continue Argatrban #2 continue monitor the CBC #3 follow-up with the patient
[2020-07-10] MEDS: ALBUTEROL HFA INHALER INHALATION SCH ×3 (08:16→20:35)
[2020-07-10] MEDS: CHOLECALCIFEROL 25 MCG (1000 IU) TABLET PO SCH (08:56)
[2020-07-10] MEDS: ZINC SULFATE 220 MG CAP PO SCH (08:56)
[2020-07-10] MEDS: SERTRALINE 100 MG TAB PO SCH (08:56)
[2020-07-10] MEDS: ARIPiprazole 5 MG TAB PO SCH ×2 (08:57→19:48)
[2020-07-10] MEDS: DEXTROSE 5% IN WATER 1,000 ML with SODIUM BICARB (1 MEQ/ML) 150 ML IV SCH ×2 (08:58→17:38)
[2020-07-10] MEDS: CHLORHEXIDINE GLUCONATE 15 ML CUP MUCOUS MEM SCH ×2 (08:58→19:48)
[2020-07-10] MEDS: DEXAMETHASONE SOD PHOSPHATE 10 MG/ML 1 ML VIAL IV SCH (09:00)
[2020-07-10] MEDS: PANTOPRAZOLE 40 MG/10 ML VIAL IVP SCH ×2 (09:00→19:48)
[2020-07-10] MEDS: ARGATROBAN 50 MG in SODIUM CHLORIDE 0.9% 50 ML IV SCH (09:45)
[2020-07-10] MEDS: CISATRACURIUM 200 MG in SODIUM CHLORIDE 0.9% 180 ML IV SCH (09:46)
--- NOTE | 2020-07-10 09:55 | P.PN ---
Subjective Progress Note Date: 07/10/20 Patient seen and examined. Essentially unchanged. Hit panel pending Objective - Vital Signs Vital signs: Vital Signs Temp 98.3 F 07/10/20 04:00 Pulse 75 07/10/20 07:00 Resp 36 H 07/10/20 07:00 BP 105/60 07/10/20 07:00 Pulse Ox 97 07/10/20 07:00 Intake & Output 07/09/20 07/10/20 07/10/20 18:59 06:59 18:59 Intake Total 3857.207 0188.23 296.521 Output Total 145 815 20 Balance 1079.241 279.23 276.521 Weight 119.9 kg Intake: IV 392 12 Pressure Bag 72 12 Sodium Chloride 0.9% 1, 320 000 ml @ 80 mls/hr IV . [id number] [facility] Rx#:[id number] Intake, IV Titration 471.861 0783.23 296.521 Amount Argatroban 50 mg In 29.136 50 Sodium Chloride 0.9% 50 ml @ 0.5 MCG/KG/MIN 3.597 mls/hr IV .[id number] [facility] Rx#:[id number] Cisatracurium 200 mg In 176.521 Sodium Chloride 0.9% 180 ml @ 1 MCG/KG/MIN 6.936 mls/hr IV .Q24H [facility] Rx#: [id number] Dextrose 5% in Water 1, 560 840 70 000 ml @ 70 mls/hr IV . [id number] [facility] with Sodium Bicarb (1 Meq/ml) 150 ml Rx#:[id number] fentaNYL (PF) 1,000 mcg 79.186 In Sodium Chloride 0.9% 80 ml @ Per Protocol IV . Q0M [facility] Rx#:[id number] propofoL 1,000 mg In 148.919 212.23 Empty Bag 1 bag @ Titrate IV .Q0M [facility] Rx#: [id number] Oral 30 Tube Feeding 15 Output: Gastric Drainage 500 Urine 145 315 20 Other: Voiding Method Indwelling Catheter Indwelling Catheter - Exam Intubated. Sedated. Coarse mechanical breath sounds. Anasarca. Abdomen soft rotund. Left upper extremity the hand has decreased areas of mottling noted he is on blood thinner again. Still with capillary refill. Multiphasic signal at the radial and ulnar arteries. - Labs CBC & Chem 7: 07/10/20 05:40 07/10/20 05:40 Labs: Abnormal Lab Results - Last 24 Hours (Table) 07/09/20 07/09/20 07/09/20 Range/Units 05:05 12:36 14:58 WBC (3.8-10.6) k/uL RBC (4.30-5.90) m/uL Hgb (13.0-17.5) gm/dL Hct (39.0-53.0) % Plt Count (150-450) k/uL Neutrophils # (1.3-7.7) k/uL Lymphocytes # (1.0-4.8) k/uL APTT 59.6 H (22.0-30.0) sec D-Dimer (<0.60) mg/L FEU ABG pH (7.35-7.45) ABG pCO2 (35-45) mmHg ABG HCO3 (21-25) mmol/L Sodium (137-145) mmol/L Potassium (3.5-5.1) mmol/L Carbon Dioxide (22-30) mmol/L BUN (9-20) mg/dL Creatinine (0.66-1.25) mg/dL Glucose (74-99) mg/dL POC Glucose (mg/dL) 151 H (75-99) mg/dL Calcium (8.4-10.2) mg/dL ALT (4-49) U/L Creatine Kinase (55-170) U/L C-Reactive Protein (<10.0) mg/L Total Protein (6.3-8.2) g/dL Albumin (3.5-5.0) g/dL Procalcitonin 0.32 H (0.02-0.09) ng/mL 07/09/20 07/09/20 07/10/20 Range/Units 17:39 20:30 00:22 WBC (3.8-10.6) k/uL RBC (4.30-5.90) m/uL Hgb (13.0-17.5) gm/dL Hct (39.0-53.0) % Plt Count (150-450) k/uL Neutrophils # (1.3-7.7) k/uL Lymphocytes # (1.0-4.8) k/uL APTT (22.0-30.0) sec D-Dimer (<0.60) mg/L FEU ABG pH (7.35-7.45) ABG pCO2 (35-45) mmHg ABG HCO3 (21-25) mmol/L Sodium 134 L (137-145) mmol/L Potassium 5.8 H (3.5-5.1) mmol/L Carbon Dioxide 17 L (22-30) mmol/L BUN 101 H* (9-20) mg/dL Creatinine 4.03 H (0.66-1.25) mg/dL Glucose 146 H (74-99) mg/dL POC Glucose (mg/dL) 160 H 144 H (75-99) mg/dL Calcium 7.4 L (8.4-10.2) mg/dL ALT (4-49) U/L Creatine Kinase (55-170) U/L C-Reactive Protein (<10.0) mg/L Total Protein (6.3-8.2) g/dL Albumin (3.5-5.0) g/dL Procalcitonin (0.02-0.09) ng/mL 07/10/20 07/10/20 07/10/20 Range/Units 05:31 05:40 05:40 WBC 12.8 H (3.8-10.6) k/uL RBC 3.07 L (4.30-5.90) m/uL Hgb 8.9 L D (13.0-17.5) gm/dL Hct 26.6 L (39.0-53.0) % Plt Count 78 L (150-450) k/uL Neutrophils # 11.8 H (1.3-7.7) k/uL Lymphocytes # 0.4 L (1.0-4.8) k/uL APTT (22.0-30.0) sec D-Dimer (<0.60) mg/L FEU ABG pH (7.35-7.45) ABG pCO2 (35-45) mmHg ABG HCO3 (21-25) mmol/L Sodium 134 L (137-145) mmol/L Potassium 5.3 H (3.5-5.1) mmol/L Carbon Dioxide 19 L (22-30) mmol/L BUN 105 H* (9-20) mg/dL Creatinine 4.10 H (0.66-1.25) mg/dL Glucose 115 H (74-99) mg/dL POC Glucose (mg/dL) 117 H (75-99) mg/dL Calcium 7.1 L (8.4-10.2) mg/dL ALT 160 H (4-49) U/L Creatine Kinase 412 H (55-170) U/L C-Reactive Protein 16.4 H (<10.0) mg/L Total Protein 5.0 L (6.3-8.2) g/dL Albumin 2.6 L (3.5-5.0) g/dL Procalcitonin (0.02-0.09) ng/mL 07/10/20 07/10/20 Range/Units 05:40 06:18 WBC (3.8-10.6) k/uL RBC (4.30-5.90) m/uL Hgb (13.0-17.5) gm/dL Hct (39.0-53.0) % Plt Count (150-450) k/uL Neutrophils # (1.3-7.7) k/uL Lymphocytes # (1.0-4.8) k/uL APTT 57.9 H (22.0-30.0) sec D-Dimer 23.24 H (<0.60) mg/L FEU ABG pH 7.24 L (7.35-7.45) ABG pCO2 46 H (35-45) mmHg ABG HCO3 20 L (21-25) mmol/L Sodium (137-145) mmol/L Potassium (3.5-5.1) mmol/L Carbon Dioxide (22-30) mmol/L BUN (9-20) mg/dL Creatinine (0.66-1.25) mg/dL Glucose (74-99) mg/dL POC Glucose (mg/dL) (75-99) mg/dL Calcium (8.4-10.2) mg/dL ALT (4-49) U/L Creatine Kinase (55-170) U/L C-Reactive Protein (<10.0) mg/L Total Protein (6.3-8.2) g/dL Albumin (3.5-5.0) g/dL Procalcitonin (0.02-0.09) ng/mL Microbiology - Last 24 Hours (Table) 07/08/20 03:13 Gram Stain - Final Sputum Sputum Culture - Final Beta Hemolytic Strep Group C 07/04/20 19:38 Blood Culture - Preliminary Blood No Growth after 120 hours 07/07/20 00:01 Gram Stain - Final Sputum Sputum Culture - Final Beta Hemolytic Strep Group C Assessment and Plan Assessment: Left hand ischemia, microvascular occlusions, biphasic radial and ulnar signals Acute hypoxic respiratory failure from covid pna Thrombocytopenia, likely heparin-induced Hypertension Obesity Obstructive sleep apnea Superficial venous thrombus Plan: Continue supportive care. Continue anticoagulation as able. Await further demarcation
[2020-07-10] MEDS: fentaNYL (PF) 1,000 MCG in SODIUM CHLORIDE 0.9% 80 ML IV SCH ×2 (10:00→19:58)
--- NOTE | 2020-07-10 10:11 | P.PN ---
Subjective Patient is seen in follow-up for acute kidney injury and hyperkalemia. Intubated. On 40% FiO2. Remains on Levophed. Urine output 20 mL an hour. Maintain on bicarb drip. Acidosis mildly improved. Potassium level 5.3 this morning. Vital signs are stable. On vasopressor support. General: The patient appeared well nourished and normally developed. HEENT: Intubated. LUNGS: Breath sounds decreased. HEART: Rate and Rhythm are regular. ABDOMEN: No distention noted. EXTREMITITES: 1+ edema. Objective - Vital Signs Vital signs: Vital Signs Temp 98.3 F 07/10/20 04:00 Pulse 75 07/10/20 07:00 Resp 36 H 07/10/20 07:00 BP 105/60 07/10/20 07:00 Pulse Ox 97 07/10/20 07:00 Intake & Output 07/09/20 07/10/20 07/10/20 18:59 06:59 18:59 Intake Total 8988.744 5819.23 545.521 Output Total 145 815 80 Balance 1079.241 279.23 465.521 Weight 119.9 kg Intake: IV 392 12 9 Pressure Bag 72 12 9 Sodium Chloride 0.9% 1, 320 000 ml @ 80 mls/hr IV . [id number] [facility] Rx#:[id number] Intake, IV Titration 647.512 7874.23 506.521 Amount Argatroban 50 mg In 29.136 50 Sodium Chloride 0.9% 50 ml @ 0.5 MCG/KG/MIN 3.597 mls/hr IV .[id number] [facility] Rx#:[id number] Cisatracurium 200 mg In 176.521 Sodium Chloride 0.9% 180 ml @ 1 MCG/KG/MIN 6.936 mls/hr IV .Q24H [facility] Rx#: [id number] Dextrose 5% in Water 1, 560 840 280 000 ml @ 70 mls/hr IV . [id number] PRAFUL with Sodium Bicarb (1 Meq/ml) 150 ml Rx#:[id number] fentaNYL (PF) 1,000 mcg 79.186 In Sodium Chloride 0.9% 80 ml @ Per Protocol IV . Q0M [facility] Rx#:[id number] propofoL 1,000 mg In 148.919 212.23 Empty Bag 1 bag @ Titrate IV .Q0M [facility] Rx#: [id number] Oral 30 30 Tube Feeding 15 Output: Gastric Drainage 500 Urine 145 315 80 Other: Voiding Method Indwelling Catheter Indwelling Catheter - Labs CBC & Chem 7: 07/10/20 05:40 07/10/20 05:40 Labs: Abnormal Lab Results - Last 24 Hours (Table) 07/09/20 07/09/20 07/09/20 Range/Units 05:05 12:36 14:58 WBC (3.8-10.6) k/uL RBC (4.30-5.90) m/uL Hgb (13.0-17.5) gm/dL Hct (39.0-53.0) % Plt Count (150-450) k/uL Neutrophils # (1.3-7.7) k/uL Lymphocytes # (1.0-4.8) k/uL APTT 59.6 H (22.0-30.0) sec D-Dimer (<0.60) mg/L FEU ABG pH (7.35-7.45) ABG pCO2 (35-45) mmHg ABG HCO3 (21-25) mmol/L Sodium (137-145) mmol/L Potassium (3.5-5.1) mmol/L Carbon Dioxide (22-30) mmol/L BUN (9-20) mg/dL Creatinine (0.66-1.25) mg/dL Glucose (74-99) mg/dL POC Glucose (mg/dL) 151 H (75-99) mg/dL Calcium (8.4-10.2) mg/dL ALT (4-49) U/L Creatine Kinase (55-170) U/L C-Reactive Protein (<10.0) mg/L Total Protein (6.3-8.2) g/dL Albumin (3.5-5.0) g/dL Procalcitonin 0.32 H (0.02-0.09) ng/mL 07/09/20 07/09/20 07/10/20 Range/Units 17:39 20:30 00:22 WBC (3.8-10.6) k/uL RBC (4.30-5.90) m/uL Hgb (13.0-17.5) gm/dL Hct (39.0-53.0) % Plt Count (150-450) k/uL Neutrophils # (1.3-7.7) k/uL Lymphocytes # (1.0-4.8) k/uL APTT (22.0-30.0) sec D-Dimer (<0.60) mg/L FEU ABG pH (7.35-7.45) ABG pCO2 (35-45) mmHg ABG HCO3 (21-25) mmol/L Sodium 134 L (137-145) mmol/L Potassium 5.8 H (3.5-5.1) mmol/L Carbon Dioxide 17 L (22-30) mmol/L BUN 101 H* (9-20) mg/dL Creatinine 4.03 H (0.66-1.25) mg/dL Glucose 146 H (74-99) mg/dL POC Glucose (mg/dL) 160 H 144 H (75-99) mg/dL Calcium 7.4 L (8.4-10.2) mg/dL ALT (4-49) U/L Creatine Kinase (55-170) U/L C-Reactive Protein (<10.0) mg/L Total Protein (6.3-8.2) g/dL Albumin (3.5-5.0) g/dL Procalcitonin (0.02-0.09) ng/mL 07/10/20 07/10/20 07/10/20 Range/Units 05:31 05:40 05:40 WBC 12.8 H (3.8-10.6) k/uL RBC 3.07 L (4.30-5.90) m/uL Hgb 8.9 L D (13.0-17.5) gm/dL Hct 26.6 L (39.0-53.0) % Plt Count 78 L (150-450) k/uL Neutrophils # 11.8 H (1.3-7.7) k/uL Lymphocytes # 0.4 L (1.0-4.8) k/uL APTT (22.0-30.0) sec D-Dimer (<0.60) mg/L FEU ABG pH (7.35-7.45) ABG pCO2 (35-45) mmHg ABG HCO3 (21-25) mmol/L Sodium 134 L (137-145) mmol/L Potassium 5.3 H (3.5-5.1) mmol/L Carbon Dioxide 19 L (22-30) mmol/L BUN 105 H* (9-20) mg/dL Creatinine 4.10 H (0.66-1.25) mg/dL Glucose 115 H (74-99) mg/dL POC Glucose (mg/dL) 117 H (75-99) mg/dL Calcium 7.1 L (8.4-10.2) mg/dL ALT 160 H (4-49) U/L Creatine Kinase 412 H (55-170) U/L C-Reactive Protein 16.4 H (<10.0) mg/L Total Protein 5.0 L (6.3-8.2) g/dL Albumin 2.6 L (3.5-5.0) g/dL Procalcitonin (0.02-0.09) ng/mL 07/10/20 07/10/20 Range/Units 05:40 06:18 WBC (3.8-10.6) k/uL RBC (4.30-5.90) m/uL Hgb (13.0-17.5) gm/dL Hct (39.0-53.0) % Plt Count (150-450) k/uL Neutrophils # (1.3-7.7) k/uL Lymphocytes # (1.0-4.8) k/uL APTT 57.9 H (22.0-30.0) sec D-Dimer 23.24 H (<0.60) mg/L FEU ABG pH 7.24 L (7.35-7.45) ABG pCO2 46 H (35-45) mmHg ABG HCO3 20 L (21-25) mmol/L Sodium (137-145) mmol/L Potassium (3.5-5.1) mmol/L Carbon Dioxide (22-30) mmol/L BUN (9-20) mg/dL Creatinine (0.66-1.25) mg/dL Glucose (74-99) mg/dL POC Glucose (mg/dL) (75-99) mg/dL Calcium (8.4-10.2) mg/dL ALT (4-49) U/L Creatine Kinase (55-170) U/L C-Reactive Protein (<10.0) mg/L Total Protein (6.3-8.2) g/dL Albumin (3.5-5.0) g/dL Procalcitonin (0.02-0.09) ng/mL Microbiology - Last 24 Hours (Table) 07/08/20 03:13 Gram Stain - Final Sputum Sputum Culture - Final Beta Hemolytic Strep Group C 07/04/20 19:38 Blood Culture - Preliminary Blood No Growth after 120 hours 07/07/20 00:01 Gram Stain - Final Sputum Sputum Culture - Final Beta Hemolytic Strep Group C Assessment and Plan Plan: Assessment: 1. Acute kidney injury secondary to ATN secondary to covid-19 infection. Renal function worsening. Creatinine 4.1 today. 2. Hyperkalemia secondary to acute kidney injury and metabolic acidosis. 3. Metabolic acidosis secondary to acute kidney injury maintained on IV bicarb. 4. Septic shock secondary to covid-19 pneumonia. Maintained on Levophed. 5. Acute hypoxic respiratory failure secondary to pneumonia. Plan: Hyperkalemia has been medically treated multiple times. Urine output remains on the lower side despite IV Lasix yesterday. Initiate renal replacement therapy if family agreeable. Maintain bicarb drip. Wean FiO2 and vasopressors. Avoid nephrotoxins. Continue to monitor renal function and urine output. Repeat potassium level at noon. Check phosphorus level.
--- NOTE | 2020-07-10 10:59 | XR ---
EXAMINATION TYPE: XR chest 1V portable DATE OF EXAM: 07/10/2020 COMPARISON: 07/09/2020 INDICATION: Tube placement TECHNIQUE: Single frontal view of the chest is obtained. FINDINGS: The heart size is normal. The pulmonary vasculature is normal. Mild bibasilar infiltrates are present, similar to prior study. Endotracheal tube tip is above the ca yessica. Nasogastric tube transverses the thorax. IMPRESSION: 1. Bibasilar infiltrates, similar to prior study.
[2020-07-10 11:40] LABS: Glucose,Whole Blood 103 mg/dL (75-99)
[2020-07-10 12:02] LABS: Ferritin 819.4 ng/mL (22.0-322.0)
--- NOTE | 2020-07-10 12:43 | P.PN ---
Subjective Progress Note Date: 07/10/20 Principal diagnosis: Acute hypoxemic respiratory failure secondary to acute CoVID 19 pneumonia/pneumonitis This is a 59-year-old male who presented to the emergency department and apparently tested positive for COVID 8 days ago. The patient has apparently been sick for about 10 days. His complaints included weakness and difficulty breathing. In addition, the patient had cough. Patient apparently denied fever, headache, pain, or other complaints initially. Patient is legally blind. The patient did not receive the coronavirus vaccination. Apparently, in the emergency department, his respiratory status declined, and he was intubated. The patient on the volume assist control mode rate of 24, breathing 30 times a minute, tidal volume 450, FiO2 100%, PEEP of 5 being increased to 10. Arterial blood gases show pO2 75, pCO2 33, pH is 7.44. He is receiving propofol at 30 mcg/kg/m, heparin via weightbase protocol, and saline at 20 mL an hour. The patient has a history of hypertension, heart posterior arthritis, sleep apnea, and is legally blind. Chest x-ray shows diffuse bilateral infiltrates. White count 6.3, hemoglobin 12.5, hematocrit 36.8, platelet count 216,000. PTT is 35.4. D-dimer 0.68. Sodium 134, potassium 4.3, chlorides 100, CO2 23, anion gap 11, BUN 39, creatinine 1.70. Troponins were 1.270 and 0.997. C-reactive protein is 261, N-terminal proBNP 4540. Pro-calcitonin is 0.23. Urine is negative both for nitrite and leukocyte esterase. Occasional bacteria, and few white blood cell clumps. Patient seen today 07/07/2020 in follow-up in the intensive care unit. He remains intubated on mechanical ventilator assist control mode. Rate of 24, tidal volume 450, FiO2 100% and a PEEP of 15. Morning blood gases reveal a pO2 135, pCO2 55, pH 7.22. He remains sedated on propofol at 60 mcg/kg/m. Norepinephrine at 0.03 mcg/kg/m. 0.9 normal saline at 80 MLS per hour. Tube feedings have not been initiated yet due to increased output from the NG tube which is coffee-ground in color. Blood cultures reveal no growth. Urine culture reveal no growth. Sputum cultures pending. White count 18.2. Hemoglobin 13.7. Platelet count 110. D-dimer greater than 34. Sodium 137. Potassium 5.9. Creatinine 1.55. Ferritin 5795. LDH 2301. C-reactive protein 147. Glucose 148. He is continued on bronchodilators, dexamethasone, vitamin supplements. He remains on Levaquin. Chest x-ray reveals scattered airspace infiltrates bilaterally. Unchanged. He did receive Tocilizumab. The patient is seen today 07/08/2020 and follow-up in the intensive care unit. He remains intubated and on the mechanical ventilator. Assist-control mode at a rate of 30, tidal volume 450, FiO2 80% and a PEEP of 15. Morning blood gases reveal a P O2 of 91, P CO2 of 49, pH 7.22. He is sedated on propofol at 60 mcg/kg/m. Norepinephrine at 6 mcg/m. 0.9 normal saline at 80 MLS per hour. He was initiated back on his Lovenox yesterday due to d-dimer greater than 34 but was again discontinued. GI services are on the case. White count 20.8. Hemoglobin 12.4. Platelet count 90,000. Sodium 136. Potassium 5.4. Creatinine 2.83. Remains on dexamethasone, vitamin supplements. Antibiotics in the form of Levaquin. Follow-up blood culture reveals no growth. Sputum culture pending. Urine culture revealed no growth. The patient is seen today 07/09/2020 in follow-up in the intensive care unit. He remains intubated, sedated on the mechanical ventilator. Current settings assist-control mode at a rate of 30, tidal volume 450, FiO2 40% and a PEEP of 18. Morning blood gases revealed a PaO2 of 74, pCO2 55, pH 7.14. He is sedated with propofol at 60 mcg/kg/m. Fentanyl drip at 0.5 mcg/kg/h. Nimbex at 1 mcg/kg/m. Being nourished with Nepro at 15 ML's per hour which is his goal. Chest x-ray continues to show patchy bilateral infiltrates, increased in the left midlung. He is now noted to have a cool and dusky left hand with no palpable pulse. Venous Doppler did not reveal any DVT of the left upper extremity. However there is superficial thrombus noted in the left cephalic vein and left basilic vein as noted previously. Follow-up sputum culture pending. White count 17.0. Hemoglobin 11.9. Platelet count 76,000. Lymphocytes 0.5. Sodium 136. Potassium 6.4. Bicarb 17. BUN 91. Creatinine 3.74. Glucose 125. LDH 1316, C-reactive protein 30.8. He has been initiated on argatroban at 0.5 mcg/kg/m. HIT antibodies are pending. He has been initiated on D5W with 3 A of sodium bicarb at 70 ML's per hour. Remains on dexamethasone and vitamin supplements. Patient is seen today 07/10/2020 and follow-up in the intensive care unit. He remains intubated, sedated on the mechanical ventilator. Current settings assist-control mode at a rate of 36, tidal volume 450, FiO2 40% and a PEEP of 18. Morning blood gases reveal a pO2 of 95, pCO2 46, pH 7.24. He is currently sedated on propofol at 60 mcg/kg/m, Nimbex at 1 mcg/kg/m, fentanyl at 0.5 mcg/kg per hour. Norepinephrine at 4 mcg/m. D5W with 3 A of bicarb at 70 ML's per hour. He remains on Argatroban at 0.5 mcg/kg/m. Tube feedings are currently on hold due to high residual volumes. Chest x-ray continue to show bibasilar infiltrates. White count 12.8. Hemoglobin 8.9. White count 78,000. D-dimer 23.24. Sodium 134. Potassium 5.3. Creatinine 4.10. Objective - Vital Signs Vital signs: Vital Signs Temp 97.8 F 07/10/20 08:00 Pulse 72 07/10/20 10:00 Resp 36 H 07/10/20 10:00 BP 103/45 07/10/20 10:00 Pulse Ox 99 07/10/20 10:00 Intake & Output 07/09/20 07/10/20 07/10/20 18:59 06:59 18:59 Intake Total 3190.835 7666.23 869.530 Output Total 145 815 80 Balance 1079.241 279.23 789.530 Weight 119.9 kg Intake: IV 392 12 9 Pressure Bag 72 12 9 Sodium Chloride 0.9% 1, 320 000 ml @ 80 mls/hr IV . [id number] [facility] Rx#:[id number] Intake, IV Titration 945.370 5285.23 830.530 Amount Argatroban 50 mg In 29.136 50 Sodium Chloride 0.9% 50 ml @ 0.5 MCG/KG/MIN 3.597 mls/hr IV .[id number] [facility] Rx#:[id number] Cisatracurium 200 mg In 176.521 Sodium Chloride 0.9% 180 ml @ 1 MCG/KG/MIN 6.936 mls/hr IV .Q24H [facility] Rx#: [id number] Dextrose 5% in Water 1, 560 840 280 000 ml @ 70 mls/hr IV . [id number] PRAF[facility] with Sodium Bicarb (1 Meq/ml) 150 ml Rx#:[id number] Norepinephrine 8 mg In 132.781 Sodium Chloride 0.9% 250 ml @ 0.05 MCG/KG/MIN 11. 01 mls/hr IV .[id number] [facility] Rx#:[id number] fentaNYL (PF) 1,000 mcg 79.186 91.228 In Sodium Chloride 0.9% 80 ml @ Per Protocol IV . Q0M [facility] Rx#:[id number] propofoL 1,000 mg In 148.919 212.23 100 Empty Bag 1 bag @ Titrate IV .Q0M [facility] Rx#: [id number] Oral 30 30 Tube Feeding 15 Output: Gastric Drainage 500 Urine 145 315 80 Other: Voiding Method Indwelling Catheter Indwelling Catheter - Exam GENERAL EXAM: Intubated, sedated 59-year-old gentleman, on the mechanical ventilator currently on 40% FiO2, in no apparent distress. HEAD: Normocephalic. EYES: Sluggish reaction of pupils, equal size. NOSE: Clear with pink turbinates. THROAT: Oral endotracheal and gastric tube secured in place No erythema or exudates. NECK: No masses, no JVD. CHEST: No chest wall deformity. LUNGS: Equal air entry with crackles in the bilateral posterior bases CVS: S1 and S2 normal with no audible murmur, regular rhythm. ABDOMEN: No hepatosplenomegaly, normal bowel sounds, no guarding or rigidity. SPINE: No scoliosis or deformity SKIN: No rashes, some oozing from the scrotum CENTRAL NERVOUS SYSTEM: Sedated. No focal deficits, tone is normal in all 4 extremities. EXTREMITIES: Left upper extremity cool, dusky, pulseless. - Labs CBC & Chem 7: 07/10/20 05:40 07/10/20 05:40 Labs: Abnormal Lab Results - Last 24 Hours (Table) 07/09/20 07/09/20 07/09/20 Range/Units 12:36 14:58 17:39 WBC (3.8-10.6) k/uL RBC (4.30-5.90) m/uL Hgb (13.0-17.5) gm/dL Hct (39.0-53.0) % Plt Count (150-450) k/uL Neutrophils # (1.3-7.7) k/uL Lymphocytes # (1.0-4.8) k/uL APTT 59.6 H (22.0-30.0) sec D-Dimer (<0.60) mg/L FEU ABG pH (7.35-7.45) ABG pCO2 (35-45) mmHg ABG HCO3 (21-25) mmol/L Sodium (137-145) mmol/L Potassium (3.5-5.1) mmol/L Carbon Dioxide (22-30) mmol/L BUN (9-20) mg/dL Creatinine (0.66-1.25) mg/dL Glucose (74-99) mg/dL POC Glucose (mg/dL) 151 H 160 H (75-99) mg/dL Calcium (8.4-10.2) mg/dL Ferritin (22.0-322.0) ng/mL ALT (4-49) U/L Creatine Kinase (55-170) U/L C-Reactive Protein (<10.0) mg/L Total Protein (6.3-8.2) g/dL Albumin (3.5-5.0) g/dL 07/09/20 07/10/20 07/10/20 Range/Units 20:30 00:22 05:31 WBC (3.8-10.6) k/uL RBC (4.30-5.90) m/uL Hgb (13.0-17.5) gm/dL Hct (39.0-53.0) % Plt Count (150-450) k/uL Neutrophils # (1.3-7.7) k/uL Lymphocytes # (1.0-4.8) k/uL APTT (22.0-30.0) sec D-Dimer (<0.60) mg/L FEU ABG pH (7.35-7.45) ABG pCO2 (35-45) mmHg ABG HCO3 (21-25) mmol/L Sodium 134 L (137-145) mmol/L Potassium 5.8 H (3.5-5.1) mmol/L Carbon Dioxide 17 L (22-30) mmol/L BUN 101 H* (9-20) mg/dL Creatinine 4.03 H (0.66-1.25) mg/dL Glucose 146 H (74-99) mg/dL POC Glucose (mg/dL) 144 H 117 H (75-99) mg/dL Calcium 7.4 L (8.4-10.2) mg/dL Ferritin (22.0-322.0) ng/mL ALT (4-49) U/L Creatine Kinase (55-170) U/L C-Reactive Protein (<10.0) mg/L Total Protein (6.3-8.2) g/dL Albumin (3.5-5.0) g/dL 07/10/20 07/10/20 07/10/20 Range/Units 05:40 05:40 05:40 WBC 12.8 H (3.8-10.6) k/uL RBC 3.07 L (4.30-5.90) m/uL Hgb 8.9 L D (13.0-17.5) gm/dL Hct 26.6 L (39.0-53.0) % Plt Count 78 L (150-450) k/uL Neutrophils # 11.8 H (1.3-7.7) k/uL Lymphocytes # 0.4 L (1.0-4.8) k/uL APTT 57.9 H (22.0-30.0) sec D-Dimer 23.24 H (<0.60) mg/L FEU ABG pH (7.35-7.45) ABG pCO2 (35-45) mmHg ABG HCO3 (21-25) mmol/L Sodium 134 L (137-145) mmol/L Potassium 5.3 H (3.5-5.1) mmol/L Carbon Dioxide 19 L (22-30) mmol/L BUN 105 H* (9-20) mg/dL Creatinine 4.10 H (0.66-1.25) mg/dL Glucose 115 H (74-99) mg/dL POC Glucose (mg/dL) (75-99) mg/dL Calcium 7.1 L (8.4-10.2) mg/dL Ferritin 819.4 H (22.0-322.0) ng/mL ALT 160 H (4-49) U/L Creatine Kinase 412 H (55-170) U/L C-Reactive Protein 16.4 H (<10.0) mg/L Total Protein 5.0 L (6.3-8.2) g/dL Albumin 2.6 L (3.5-5.0) g/dL 07/10/20 07/10/20 Range/Units 06:18 11:39 WBC (3.8-10.6) k/uL RBC (4.30-5.90) m/uL Hgb (13.0-17.5) gm/dL Hct (39.0-53.0) % Plt Count (150-450) k/uL Neutrophils # (1.3-7.7) k/uL Lymphocytes # (1.0-4.8) k/uL APTT (22.0-30.0) sec D-Dimer (<0.60) mg/L FEU ABG pH 7.24 L (7.35-7.45) ABG pCO2 46 H (35-45) mmHg ABG HCO3 20 L (21-25) mmol/L Sodium (137-145) mmol/L Potassium (3.5-5.1) mmol/L Carbon Dioxide (22-30) mmol/L BUN (9-20) mg/dL Creatinine (0.66-1.25) mg/dL Glucose (74-99) mg/dL POC Glucose (mg/dL) 103 H (75-99) mg/dL Calcium (8.4-10.2) mg/dL Ferritin (22.0-322.0) ng/mL ALT (4-49) U/L Creatine Kinase (55-170) U/L C-Reactive Protein (<10.0) mg/L Total Protein (6.3-8.2) g/dL Albumin (3.5-5.0) g/dL Microbiology - Last 24 Hours (Table) 07/08/20 03:13 Gram Stain - Final Sputum Sputum Culture - Final Beta Hemolytic Strep Group C 07/04/20 19:38 Blood Culture - Preliminary Blood No Growth after 120 hours 07/07/20 00:01 Gram Stain - Final Sputum Sputum Culture - Final Beta Hemolytic Strep Group C Assessment and Plan Assessment: 1 Acute hypoxemic respiratory failure secondary to acute CoVID 19 pneumonia/pneumonitis requiring mechanical ventilation on 07/05/2020. Received a tocilizumab. 2 Elevated inflammatory markers secondary to above 3 History of obstructive sleep apnea, maintained on CPAP 4 History of blindness 5 Hypertension, history of 6 Osteoarthritis 7 Acute renal failure 8 Hyperkalemia 9 Cool, dusky left upper extremity negative for DVT, however, there is superficial thrombus in the left cephalic vein and left basilic Plan: The patient was seen and evaluated by Dr. Meneses Chest x-ray, ABGs and labs reviewed Decrease the PEEP from 18 to 15 Continue Argatroban HIT antibodies pending Hold tube feeds for now, check residuals Add Reglan 10 mg every 6 hours Continue dexamethasone, vitamin supplements We'll continue to follow and make further recommendations based on his clinical status Critical care time 36 minutes I, the cosigning physician, performed a history & physical examination of the patient. Lungs sounds with bilateral crackles. Maintaining good O2 saturations in the 90s on 40% FiO2 and PEEP of 15 via the mechanical ventilator. I discussed the assessment and plan of care with my nurse practitioner, Zoë Roberts. I attest to the above note as dictated by her.
[2020-07-10] MEDS: METOCLOPRAMIDE 5 MG/ML 2 ML VIAL IVP SCH ×3 (13:47→23:29)
[2020-07-10] MEDS: NOREPINEPHRINE 8 MG in SODIUM CHLORIDE 0.9% 250 ML IV SCH ×2 (16:03→18:41)
[2020-07-10 17:57] LABS: Glucose,Whole Blood 150 mg/dL (75-99)
--- NOTE | 2020-07-10 19:44 | PN ---
PROGRESS NOTE DATE OF SERVICE: 07/10/2020 REASON FOR FOLLOW UP: Covid 19 infection. INTERVAL HISTORY: The patient is currently afebrile. The patient is hemodynamically stable, off the pressor support. The patient did get a dialysis catheter for initiation of dialysis. FiO2 is currently at 40%. No purulent secretions through the ET, diarrhea or any other changes reported by the nursing staff. PHYSICAL EXAMINATION: Blood pressure 147/69 with a pulse of 100, temperature 98.4. He is 93% on 40% FiO2. General description is a middle-aged male lying in bed in no distress. Respiratory system: Unlabored breathing, decreased intensity of breath sounds. No wheeze. HEART: S1, S2. Regular rate and rhythm. ABDOMEN soft, no tenderness. LAB: Hemoglobin 8.1, white count 12.8, BUN 105, creatinine 4.10. DIAGNOSTIC IMPRESSION AND PLAN: Patient with respiratory failure which is multifactorial in this patient who did have COVID-19 infection, plus-minus secondary bacterial component and sputum persistently positive for Streptococcus. The patient is covered with Rocephin and dexamethasone, zinc and ascorbic acid to continue while monitoring clinical course closely. Continue supportive care. MMODL / IJN: [id number] /
[2020-07-10 23:39] LABS: Glucose,Whole Blood 114 mg/dL (75-99)
--- NOTE | 2020-07-11 00:29 | P.PN ---
Subjective This is a pleasant 53 years old male with past medical history of hypertension, osteoarthritis, sleep apnea. Presents with respiratory distress secondary to covid pneumonia and secondary bacterial infection is suspected as well with positive sputum culture for streptococcus, group C. Patient is currently monitored in the ICU because of his respiratory failure, currently on mechanical ventilation and need a small dose of Levophed at 4 g today. Also patient has elevated troponin and he was started on heparin drip however he developed coffee-ground emesis via anicteric tube, heparin drip was stopped and hemoglobin is stable and normal at 12.4 today. Director Of Photography found to his elevated troponin is secondary to his Covid infection and hypotension, Lovenox is on hold although patient has elevated d-dimer due to coffee ground vomiting. Distal sedation, his blood pressure is marginal 104/60 this morning. Pulmonary team performed closely and help with vent management, his PEEP was increased today from 15-18. His oxygen saturation is guarded at 100% with FiO2 of 70%. Patient has marginal urine output at 20 mL/h and continue with normal saline at 80 mL per hour 07/09/2020 Patient remains in critical condition in the ICU, he is sedated and on mechanical ventilation with pulmonary/critical care team followed closely and management. He still needs high PEEP at 18. Today he had suspected left hand coldness and vascular surgery consult, no intervention indicated given his critical guarded condition. He had coffee-ground emesis yesterday and no such episodes, his aspirin was held as well as his Lovenox and switch his anticoagulation into argatroban drip . 4 dropping platelets 90,to 76K today. It NT chase is pending. His creatinine is worsening with nephrology on the case and patient was started on bicarbonate drip, his normal saline at 80 mL per hour was stopped He remains on ceftriaxone 2 g daily for sputum culture positive with streptococcus group C. Also he is on zinc, vitamin D, dexamethasone, Protonix twice daily and Carafate 07/10/2020 Patient remains in the ICU intubated and sedated with pulmonary/critical care team managing his friend, currently he is on PEEP 18 dropped to 15 today by pulmonary team. Despite his history of coffee ground vomitus he was started on argatroban drip for suspected left hand ischemia . Also he is on mild septic shock secondary to bacterial superimposed infection with streptococcus group C found in the blood and sputum cultures on the top of his bilateral Covid pneumonia. He has increased troponin leak secondary to Covid and creatinine is still elevated at 4.1 and followed closely by nephrology team Patient is tachypneic at 36 and blood pressure 121/51 Labs showing trending down WBC to 12.8 K, hemoglobin dropped to 8.9 and Carafate was stopped by coronary team. Platelets are stable 70 6K yesterday and 70 8K today. C-reactive protein is down to 16. Chest x-ray showing bilateral infiltrates. D-dimer was elevated at 34 and throatcalcitonin of 0.23 He remains on ceftriaxone 2 g per ID team, on zinc, vitamin D. Bicarbonate drip,argatroban drip, Protonix twice a day. While aspirating is kept on hold Review of systems: N/a Active Medications Generic Name Dose Route Start Last Admin Trade Name Freq PRN Reason Stop Dose Admin Albuterol Sulfate 2 puff 07/05/20 08:00 07/09/20 19:37 Albuterol Hfa Inhaler INHALATION 2 puff RT-TID PRAFUL Administration Aripiprazole 5 mg 07/04/20 21:00 07/09/20 23:07 Aripiprazole 5 Mg Tab PO 5 mg BID PRAFUL Administration Artificial Tears 2 drops 07/08/20 16:00 07/09/20 23:14 Artificial Tears-Hypromellose Drops 15 Ml Btl BOTH EYES 2 drops Q4HR PRAFUL Administration Chlorhexidine Gluconate 15 ml 07/07/20 09:00 07/09/20 22:51 Chlorhexidine Gluconate 15 Ml Cup MUCOUS MEM 15 ml BID PRAFUL Administration Cholecalciferol 125 mcg 07/05/20 09:00 07/09/20 09:02 Cholecalciferol 25 Mcg (1000 Iu) Tablet PO 125 mcg DAILY PRAFUL Administration Dexamethasone Sodium Phosphate 6 mg 07/05/20 09:00 07/09/20 09:02 Dexamethasone Sod Phosphate 10 Mg/Ml 1 Ml Vial IV 6 mg DAILY PRAFUL Administration Hydromorphone HCl 0.5 mg 07/04/20 20:56 07/08/20 14:21 Hydromorphone 0.5 Mg/0.5 Ml Syringe IVP 0.5 mg Q6HR PRN Administration Severe Pain Propofol 1,000 mg/ IV Solution 100 mls @ 0 mls/hr 07/05/20 04:00 07/09/20 23:09 IV 60 mcg/kg/min .Q0M PRAFUL 43.164 mls/hr Administration Protocol Titrate Norepinephrine Bitartrate 8 mg 258 mls @ 11.01 mls/hr 07/07/20 12:30 07/09/20 14:54 / Sodium Chloride IV 0.03 mcg/kg/min .[id number] PRAFUL 6.606 mls/hr Administration Protocol 0.05 MCG/KG/MIN Cisatracurium Besylate 200 mg/ 200 mls @ 6.936 mls/hr 07/08/20 12:45 07/09/20 08:19 Sodium Chloride IV 1 mcg/kg/min .Q24H PRAFUL 6.936 mls/hr Administration Protocol 1 MCG/KG/MIN Fentanyl Citrate 1,000 mcg/ 100 mls @ 0 mls/hr 07/08/20 15:15 07/09/20 18:13 Sodium Chloride IV 0.5 mcg/kg/hr .Q0M PRAFUL 5.78 mls/hr Administration Protocol Per Protocol Ceftriaxone Sodium 2 gm/ 50 mls @ 100 mls/hr 07/08/20 17:30 07/09/20 09:02 Sodium Chloride IVPB 100 mls/hr Q24HR PRAFUL Administration Argatroban 50 mg/ Sodium 50 mls @ 3.597 mls/hr 07/09/20 09:30 07/09/20 18:15 Chloride IV 0.5 mcg/kg/min .[id number] PRAFUL 3.597 mls/hr Administration Protocol 0.5 MCG/KG/MIN Sodium Bicarbonate 150 ml/ 1,150 mls @ 70 mls/hr 07/09/20 10:15 07/09/20 14:52 Dextrose/Water IV 70 mls/hr .[id number] PRAFUL Administration Pantoprazole Sodium 40 mg 07/05/20 21:00 07/09/20 23:18 Pantoprazole 40 Mg/10 Ml Vial IVP 40 mg BID PRAFUL Administration Sertraline HCl 200 mg 07/05/20 09:00 07/09/20 09:02 Sertraline 100 Mg Tab PO 200 mg DAILY PRAFUL Administration Sucralfate 1 gm 07/07/20 17:30 07/09/20 22:51 Sucralfate 1 Gm Tab PO 1 gm ACHS PRAFUL Administration Zinc Sulfate 220 mg 07/04/20 21:00 07/09/20 09:02 Zinc Sulfate 220 Mg Cap PO 220 mg DAILY PRAFUL Administration Objective - Vital Signs Vital signs: Vital Signs Temp 97.8 F 07/10/20 08:00 Pulse 72 07/10/20 10:00 Resp 36 H 07/10/20 10:00 BP 103/45 07/10/20 10:00 Pulse Ox 99 07/10/20 10:00 Intake & Output 07/09/20 07/10/20 07/10/20 18:59 06:59 18:59 Intake Total 5495.303 2802.23 1166.146 Output Total 145 815 80 Balance 1079.241 279.23 1086.146 Weight 119.9 kg Intake: IV 392 12 78 0.9 NS 60 Pressure Bag 72 12 18 Sodium Chloride 0.9% 1, 320 000 ml @ 80 mls/hr IV . [id number] [facility] Rx#:[id number] Intake, IV Titration 107.863 0846.23 1058.146 Amount Argatroban 50 mg In 29.136 50 Sodium Chloride 0.9% 50 ml @ 0.5 MCG/KG/MIN 3.597 mls/hr IV .[id number] [facility] Rx#:[id number] Cisatracurium 200 mg In 176.521 Sodium Chloride 0.9% 180 ml @ 1 MCG/KG/MIN 6.936 mls/hr IV .Q24H [facility] Rx#: [id number] Dextrose 5% in Water 1, 560 840 490 000 ml @ 70 mls/hr IV . [id number] PRAFUL with Sodium Bicarb (1 Meq/ml) 150 ml Rx#:[id number] Norepinephrine 8 mg In 150.397 Sodium Chloride 0.9% 250 ml @ 0.05 MCG/KG/MIN 11. 01 mls/hr IV .[id number] [facility] Rx#:[id number] fentaNYL (PF) 1,000 mcg 79.186 91.228 In Sodium Chloride 0.9% 80 ml @ Per Protocol IV . Q0M [facility] Rx#:[id number] propofoL 1,000 mg In 148.919 212.23 100 Empty Bag 1 bag @ Titrate IV .Q0M [facility] Rx#: [id number] Oral 30 30 Tube Feeding 15 Output: Gastric Drainage 500 Urine 145 315 80 Other: Voiding Method Indwelling Catheter Indwelling Catheter - Exam -GENERAL: The patient is intubated and sedated, well nourished. HEENT: Pupils are round and equally reacting to light. EOMI. No scleral icterus. No conjunctival pallor. Normocephalic, atraumatic. No pharyngeal erythema. No thyromegaly. CARDIOVASCULAR: S1 and S2 present. No murmurs, rubs, or gallops. PULMONARY: Chest is clear to auscultation, no wheezing or crackles. ABDOMEN: Soft, nontender, nondistended, normoactive bowel sounds. No palpable organomegaly. MUSCULOSKELETAL: No joint swelling or deformity. EXTREMITIES: No cyanosis, clubbing, or pedal edema. NEUROLOGICAL: Gross neurological examination did not reveal any focal deficits. SKIN: No rashes. no petechiae. - Labs CBC & Chem 7: 07/10/20 05:40 07/10/20 12:00 Labs: Abnormal Lab Results - Last 24 Hours (Table) 07/09/20 07/09/20 07/09/20 Range/Units 14:58 17:39 20:30 WBC (3.8-10.6) k/uL RBC (4.30-5.90) m/uL Hgb (13.0-17.5) gm/dL Hct (39.0-53.0) % Plt Count (150-450) k/uL Neutrophils # (1.3-7.7) k/uL Lymphocytes # (1.0-4.8) k/uL APTT 59.6 H (22.0-30.0) sec D-Dimer (<0.60) mg/L FEU ABG pH (7.35-7.45) ABG pCO2 (35-45) mmHg ABG HCO3 (21-25) mmol/L Sodium 134 L (137-145) mmol/L Potassium 5.8 H (3.5-5.1) mmol/L Carbon Dioxide 17 L (22-30) mmol/L BUN 101 H* (9-20) mg/dL Creatinine 4.03 H (0.66-1.25) mg/dL Glucose 146 H (74-99) mg/dL POC Glucose (mg/dL) 160 H (75-99) mg/dL Calcium 7.4 L (8.4-10.2) mg/dL Ferritin (22.0-322.0) ng/mL ALT (4-49) U/L Creatine Kinase (55-170) U/L C-Reactive Protein (<10.0) mg/L Total Protein (6.3-8.2) g/dL Albumin (3.5-5.0) g/dL 07/10/20 07/10/20 07/10/20 Range/Units 00:22 05:31 05:40 WBC 12.8 H (3.8-10.6) k/uL RBC 3.07 L (4.30-5.90) m/uL Hgb 8.9 L D (13.0-17.5) gm/dL Hct 26.6 L (39.0-53.0) % Plt Count 78 L (150-450) k/uL Neutrophils # 11.8 H (1.3-7.7) k/uL Lymphocytes # 0.4 L (1.0-4.8) k/uL APTT (22.0-30.0) sec D-Dimer (<0.60) mg/L FEU ABG pH (7.35-7.45) ABG pCO2 (35-45) mmHg ABG HCO3 (21-25) mmol/L Sodium (137-145) mmol/L Potassium (3.5-5.1) mmol/L Carbon Dioxide (22-30) mmol/L BUN (9-20) mg/dL Creatinine (0.66-1.25) mg/dL Glucose (74-99) mg/dL POC Glucose (mg/dL) 144 H 117 H (75-99) mg/dL Calcium (8.4-10.2) mg/dL Ferritin (22.0-322.0) ng/mL ALT (4-49) U/L Creatine Kinase (55-170) U/L C-Reactive Protein (<10.0) mg/L Total Protein (6.3-8.2) g/dL Albumin (3.5-5.0) g/dL 07/10/20 07/10/20 07/10/20 Range/Units 05:40 05:40 06:18 WBC (3.8-10.6) k/uL RBC (4.30-5.90) m/uL Hgb (13.0-17.5) gm/dL Hct (39.0-53.0) % Plt Count (150-450) k/uL Neutrophils # (1.3-7.7) k/uL Lymphocytes # (1.0-4.8) k/uL APTT 57.9 H (22.0-30.0) sec D-Dimer 23.24 H (<0.60) mg/L FEU ABG pH 7.24 L (7.35-7.45) ABG pCO2 46 H (35-45) mmHg ABG HCO3 20 L (21-25) mmol/L Sodium 134 L (137-145) mmol/L Potassium 5.3 H (3.5-5.1) mmol/L Carbon Dioxide 19 L (22-30) mmol/L BUN 105 H* (9-20) mg/dL Creatinine 4.10 H (0.66-1.25) mg/dL Glucose 115 H (74-99) mg/dL POC Glucose (mg/dL) (75-99) mg/dL Calcium 7.1 L (8.4-10.2) mg/dL Ferritin 819.4 H (22.0-322.0) ng/mL ALT 160 H (4-49) U/L Creatine Kinase 412 H (55-170) U/L C-Reactive Protein 16.4 H (<10.0) mg/L Total Protein 5.0 L (6.3-8.2) g/dL Albumin 2.6 L (3.5-5.0) g/dL 07/10/20 07/10/20 Range/Units 11:39 12:00 WBC (3.8-10.6) k/uL RBC (4.30-5.90) m/uL Hgb (13.0-17.5) gm/dL Hct (39.0-53.0) % Plt Count (150-450) k/uL Neutrophils # (1.3-7.7) k/uL Lymphocytes # (1.0-4.8) k/uL APTT (22.0-30.0) sec D-Dimer (<0.60) mg/L FEU ABG pH (7.35-7.45) ABG pCO2 (35-45) mmHg ABG HCO3 (21-25) mmol/L Sodium (137-145) mmol/L Potassium 5.2 H (3.5-5.1) mmol/L Carbon Dioxide (22-30) mmol/L BUN (9-20) mg/dL Creatinine (0.66-1.25) mg/dL Glucose (74-99) mg/dL POC Glucose (mg/dL) 103 H (75-99) mg/dL Calcium (8.4-10.2) mg/dL Ferritin (22.0-322.0) ng/mL ALT (4-49) U/L Creatine Kinase (55-170) U/L C-Reactive Protein (<10.0) mg/L Total Protein (6.3-8.2) g/dL Albumin (3.5-5.0) g/dL Microbiology - Last 24 Hours (Table) 07/08/20 03:13 Gram Stain - Final Sputum Sputum Culture - Final Beta Hemolytic Strep Group C 07/04/20 19:38 Blood Culture - Preliminary Blood No Growth after 120 hours Assessment and Plan Assessment: Acute Covid pneumonia Suspected superimposed bacterial pneumonia with streptococcus Mild septic shock secondary to above especially his bacterial infection Suspected ischemia of the left hand on anticoagulation and draped Acute hypoxic respiratory failure needing mechanical ventilation Coffee ground vomiting with suspected acute GI bleed Thrombocytopenia Elevated troponin, secondary to renal function impairment, viral infection and hypotension Acute kidney injury Plan: This is a pleasant 59 years old male who presents with Covid pneumonia, possible bacterial pneumonia, and possible GI bleed. Continue with mechanical ventilation for pulmonary/critical care team will follow the patient closely. Continue with multiple vitamin zinc and vitamin D. Continue with ceftriaxone and antibiotics as per ID team. Continue with bicarbonate drip Currently on argatroban drip for pulmonary team. Keep monitoring hemoglobin and platelets Infectious disease, GI and cardiology, nephrology team on the case Labs and medication were reviewed.. Continue same treatment. Continue with symptomatic treatment. Resume home medication. Monitor lytes and vitals. DVT and GI prophylaxis. Further recommendations as per clinical course of the patient DVT prophylaxis: Subcutaneous Lovenox, on hold for possible GI bleed. he is on argatroban drip GI Prophylaxis: Ppi, Protonix twice a day Prognosis is guarded
[2020-07-11] MEDS: CISATRACURIUM 200 MG in SODIUM CHLORIDE 0.9% 180 ML IV SCH (02:17)
[2020-07-11] MEDS: ARGATROBAN 50 MG in SODIUM CHLORIDE 0.9% 50 ML IV SCH ×2 (02:18→08:56)
[2020-07-11] MEDS: fentaNYL (PF) 1,000 MCG in SODIUM CHLORIDE 0.9% 80 ML IV SCH ×3 (02:18→21:07)
[2020-07-11] MEDS: ARTIFICIAL TEARS-HYPROMELLOSE DROPS 15 ML BTL BOTH EYES SCH ×6 (03:33→23:39)
[2020-07-11 04:41] LABS: HCT 32.1 % (39.0-53.0); HGB 10.6 gm/dL (13.0-17.5); MCH 28.5 pg (25.0-35.0); MCV 86.2 fL (80.0-100.0); Mean Platelet Volume 8.2; RBC 3.72 m/uL (4.30-5.90); RDW 13.9 % (11.5-15.5); WBC 18.1 k/uL (3.8-10.6)
[2020-07-11 04:42] LABS: Platelet Count 141 k/uL (150-450)
[2020-07-11] MEDS: METOCLOPRAMIDE 5 MG/ML 2 ML VIAL IVP SCH ×4 (05:36→23:39)
[2020-07-11 05:49] LABS: Albumin 2.8 g/dL (3.5-5.0); C Reactive Protein 13.8 mg/L (<10.0); Calcium 7.6 mg/dL (8.4-10.2); Potassium 4.7 mmol/L (3.5-5.1); Total Bilirubin 1.2 mg/dL (0.2-1.3); Total Protein 5.2 g/dL (6.3-8.2)
[2020-07-11 05:52] LABS: Phosphorus 9.7 mg/dL (2.5-4.5)
[2020-07-11 06:48] LABS: ABG Base Excess -2.9 mmol/L; ABG HCO3 23 mmol/L (21-25); ABG Oxygen Saturation 95.2 % (94-97); ABG PCO2 44 mmHg (35-45); ABG PH 7.33 (7.35-7.45); ABG PO2 81 mmHg (83-108); ABG TCO2 25 mmol/L (19-24); Allen Test Performed? Yes
--- NOTE | 2020-07-11 07:18 | P.PCN ---
Date of Procedure: 07/10/20 Preoperative Diagnosis: Acute renal failure, COVID Postoperative Diagnosis: Same Procedure(s) Performed: Left femoral vein hemodialysis catheter placement under ultrasound guidance Anesthesia: local Surgeon: El Rowe Estimated Blood Loss (ml): 10 Pathology: none sent Condition: stable Disposition: no change Indications for Procedure: 59-year-old gentleman with history of vent dependent respiratory failure and COVID with worsening kidney function in need of hemodialysis. We are asked to place a temporary hemodialysis catheter for treatment. Description of Procedure: after written and informed consent was obtained from the patient's family and all risks benefits and consultations are described the procedure was performed in the ICU at the bedside. The area of the left groin was prepped and draped in usual sterile fashion. Local anesthetic was infused overlying the left femoral vein. Utilizing a multipurpose needle and under direct visualization of ultrasound the vein was accessed and dark nonpulsatile blood was visualized. Guidewire was placed followed by serial dilation. Due to body habitus dilation was difficult. Once dilated the 20 cm straight Mahurkar dialysis catheter was placed. The catheter conchis and flushed without difficulty. The catheter was then secured in place with nylon suture. The area was cleansed and dressings were placed. Patient tolerated the procedure well and is okay for hemodialysis.
[2020-07-11 07:57] LABS: Band Neutrophils % 5 %; Eosinophils # (M) 0.18 k/uL (0-0.7); Lymphocytes # (M) 1.09 k/uL (1.0-4.8); Metamyelocytes # (M) 0.54 k/uL (0); Metamyelocytes % 3 %; Monocytes # (M) 0.72 k/uL (0-1.0); Myelocytes # (M) 0.36 k/uL (0); Myelocytes % 2 %; Neutrophils % (M) 81 %; Nucleated Red Blood Cells 0 /100 WBC (0-0); Total Cells Counted 200
[2020-07-11] MEDS: CHLORHEXIDINE GLUCONATE 15 ML CUP MUCOUS MEM SCH ×2 (08:41→19:46)
[2020-07-11] MEDS: PANTOPRAZOLE 40 MG/10 ML VIAL IVP SCH ×2 (08:41→19:46)
[2020-07-11] MEDS: DEXAMETHASONE SOD PHOSPHATE 10 MG/ML 1 ML VIAL IV SCH (08:41)
[2020-07-11] MEDS: CHOLECALCIFEROL 25 MCG (1000 IU) TABLET PO SCH (08:41)
[2020-07-11] MEDS: ARIPiprazole 5 MG TAB PO SCH ×2 (08:42→19:47)
[2020-07-11] MEDS: ZINC SULFATE 220 MG CAP PO SCH (08:42)
[2020-07-11] MEDS: SERTRALINE 100 MG TAB PO SCH (09:00)
[2020-07-11] MEDS: SODIUM CHLORIDE 0.9% 1,000 ML IV SCH (09:00)
--- NOTE | 2020-07-11 09:33 | P.PN ---
Subjective Patient is seen in follow-up for acute kidney injury and hyperkalemia. Intubated. On 40% FiO2. Remains on Levophed. Urine output 20-25 mL an hour. Maintain on bicarb drip. Acidosis mildly improved. Potassium level normal. Tolerated dialysis well yesterday. Receiving tube feeding. Vital signs are stable. On vasopressor support. Currently intubated. No gross edema. Exam discussed in detail with the nurse. Objective - Vital Signs Vital signs: Vital Signs Temp 98.4 F 07/11/20 04:00 Pulse 81 07/11/20 07:00 Resp 36 H 07/11/20 07:00 BP 121/56 07/11/20 07:00 Pulse Ox 94 L 07/11/20 07:00 Intake & Output 07/10/20 07/11/20 07/11/20 18:59 06:59 18:59 Intake Total 2111.217 2078.930 164.406 Output Total 380 265 30 Balance 9099.014 5257.930 134.406 Weight 121 kg Intake: IV 143 156 13 0.9 NS 110 120 10 Pressure Bag 33 36 3 Intake, IV Titration 1539.213 0913.930 151.406 Amount Argatroban 50 mg In 71.582 0 23.86 Sodium Chloride 0.9% 50 ml @ 0.5 MCG/KG/MIN 3.597 mls/hr IV .[id number] [facility] Rx#:[id number] Cisatracurium 200 mg In 212.819 156.522 Sodium Chloride 0.9% 180 ml @ 1 MCG/KG/MIN 6.936 mls/hr IV .Q24H [facility] Rx#: [id number] Dextrose 5% in Water 1, 840 840 70 000 ml @ 70 mls/hr IV . [id number] [facility] with Sodium Bicarb (1 Meq/ml) 150 ml Rx#:[id number] Norepinephrine 8 mg In 150.397 57.546 Sodium Chloride 0.9% 250 ml @ 0.05 MCG/KG/MIN 11. 01 mls/hr IV .[id number] [facility] Rx#:[id number] fentaNYL (PF) 1,000 mcg 117.238 136.408 In Sodium Chloride 0.9% 80 ml @ Per Protocol IV . Q0M [facility] Rx#:[id number] propofoL 1,000 mg In 366.181 200 Empty Bag 1 bag @ Titrate IV .Q0M [facility] Rx#: [id number] Oral 30 Tube Feeding 120 60 Hemodialysis 500 Other 60 30 Output: Urine 380 265 30 Other: Voiding Method Indwelling Catheter Indwelling Catheter - Labs CBC & Chem 7: 07/11/20 04:25 07/11/20 04:25 Labs: Abnormal Lab Results - Last 24 Hours (Table) 07/10/20 07/10/20 07/10/20 Range/Units 05:40 11:39 12:00 WBC (3.8-10.6) k/uL RBC (4.30-5.90) m/uL Hgb (13.0-17.5) gm/dL Hct (39.0-53.0) % Plt Count (150-450) k/uL Neutrophils # (Manual) (1.3-7.7) k/uL Metamyelocytes # (Man) (0) k/uL Myelocytes # (Manual) (0) k/uL D-Dimer (<0.60) mg/L FEU ABG pH (7.35-7.45) ABG pO2 (83-108) mmHg ABG Total CO2 (19-24) mmol/L Sodium (137-145) mmol/L Potassium 5.2 H (3.5-5.1) mmol/L Carbon Dioxide (22-30) mmol/L BUN (9-20) mg/dL Creatinine (0.66-1.25) mg/dL Glucose (74-99) mg/dL POC Glucose (mg/dL) 103 H (75-99) mg/dL Calcium (8.4-10.2) mg/dL Phosphorus (2.5-4.5) mg/dL Ferritin 819.4 H (22.0-322.0) ng/mL ALT (4-49) U/L Lactate Dehydrogenase (313-618) U/L Creatine Kinase (55-170) U/L C-Reactive Protein (<10.0) mg/L Total Protein (6.3-8.2) g/dL Albumin (3.5-5.0) g/dL 07/10/20 07/10/20 07/11/20 Range/Units 17:56 23:35 04:25 WBC (3.8-10.6) k/uL RBC (4.30-5.90) m/uL Hgb (13.0-17.5) gm/dL Hct (39.0-53.0) % Plt Count (150-450) k/uL Neutrophils # (Manual) (1.3-7.7) k/uL Metamyelocytes # (Man) (0) k/uL Myelocytes # (Manual) (0) k/uL D-Dimer (<0.60) mg/L FEU ABG pH (7.35-7.45) ABG pO2 (83-108) mmHg ABG Total CO2 (19-24) mmol/L Sodium 133 L (137-145) mmol/L Potassium (3.5-5.1) mmol/L Carbon Dioxide 20 L (22-30) mmol/L BUN 100 H (9-20) mg/dL Creatinine 4.14 H (0.66-1.25) mg/dL Glucose 110 H (74-99) mg/dL POC Glucose (mg/dL) 150 H 114 H (75-99) mg/dL Calcium 7.6 L (8.4-10.2) mg/dL Phosphorus 9.7 H* (2.5-4.5) mg/dL Ferritin (22.0-322.0) ng/mL ALT 128 H (4-49) U/L Lactate Dehydrogenase 1055 H (313-618) U/L Creatine Kinase 570 H (55-170) U/L C-Reactive Protein 13.8 H (<10.0) mg/L Total Protein 5.2 L (6.3-8.2) g/dL Albumin 2.8 L (3.5-5.0) g/dL 07/11/20 07/11/20 07/11/20 Range/Units 04:25 04:25 06:40 WBC 18.1 H (3.8-10.6) k/uL RBC 3.72 L (4.30-5.90) m/uL Hgb 10.6 L (13.0-17.5) gm/dL Hct 32.1 L (39.0-53.0) % Plt Count 141 L D (150-450) k/uL Neutrophils # (Manual) 15.50 H (1.3-7.7) k/uL Metamyelocytes # (Man) 0.54 H (0) k/uL Myelocytes # (Manual) 0.36 H (0) k/uL D-Dimer 19.69 H (<0.60) mg/L FEU ABG pH 7.33 L (7.35-7.45) ABG pO2 81 L (83-108) mmHg ABG Total CO2 25 H (19-24) mmol/L Sodium (137-145) mmol/L Potassium (3.5-5.1) mmol/L Carbon Dioxide (22-30) mmol/L BUN (9-20) mg/dL Creatinine (0.66-1.25) mg/dL Glucose (74-99) mg/dL POC Glucose (mg/dL) (75-99) mg/dL Calcium (8.4-10.2) mg/dL Phosphorus (2.5-4.5) mg/dL Ferritin (22.0-322.0) ng/mL ALT (4-49) U/L Lactate Dehydrogenase (313-618) U/L Creatine Kinase (55-170) U/L C-Reactive Protein (<10.0) mg/L Total Protein (6.3-8.2) g/dL Albumin (3.5-5.0) g/dL Microbiology - Last 24 Hours (Table) 07/04/20 19:38 Blood Culture - Final Blood No Growth after 144 hours 07/08/20 03:13 Gram Stain - Final Sputum Sputum Culture - Final Beta Hemolytic Strep Group C Assessment and Plan Plan: Assessment: 1. Acute kidney injury secondary to ATN secondary to covid-19 infection. Urine output 20-25 mL an hour. Due to persistent hyperkalemia and worsening renal function, started on hemodialysis July 10. 2. Hyperkalemia secondary to acute kidney injury and metabolic acidosis. Improved postdialysis. 3. Metabolic acidosis secondary to acute kidney injury maintained on IV bicarb. Expect further improvement postdialysis. 4. Septic shock secondary to covid-19 pneumonia. Maintained on Levophed. 5. Acute hypoxic respiratory failure secondary to pneumonia. 6. Hyperphosphatemia secondary to acute kidney injury. Plan: Stop bicarb drip. Add oral bicarbonate. Add PhosLo. Maintain tube feeding. Wean FiO2 and vasopressors. Second treatment of hemodialysis today and third treatment tomorrow. Continue to monitor renal function and urine output.
[2020-07-11 09:39] LABS: Ferritin 847.2 ng/mL (22.0-322.0)
[2020-07-11] MEDS: ALBUTEROL HFA INHALER INHALATION SCH ×3 (09:42→16:53)
--- NOTE | 2020-07-11 10:19 | P.PN ---
Subjective Progress Note Date: 07/11/20 Principal diagnosis: Abnormal cardiac enzymes This is a 59-year-old gentleman who was diagnosed with sepsis related to COVID- 19 infection and pneumonia and developed acute hypoxic respiratory failure. We consulted to see the patient mainly because of abnormal cardiac enzymes. Unfortunately during his hospital stay his platelet dropped down significantly and there was a concern regarding H IT. H IT antibody were sent out and still pending at this point. He was started on Argatroban. On today follow-up 07/11/2020 the patient continues to be not doing well. He continues to be intubated on mechanical ventilation and not doing well from the lung standpoint of view. He underwent dialysis yesterday. The left hand continues to be cool with normal radial pulse and only Doppler signal in the left brachial artery. The platelet has been trending up. Overall the prognosis seems to be very poor Objective - Vital Signs Vital signs: Vital Signs Temp 98.4 F 07/11/20 04:00 Pulse 81 07/11/20 07:00 Resp 36 H 07/11/20 07:00 BP 121/56 07/11/20 07:00 Pulse Ox 94 L 07/11/20 07:00 Intake & Output 07/10/20 07/11/20 07/11/20 18:59 06:59 18:59 Intake Total 2111.217 2078.930 164.406 Output Total 380 265 30 Balance 3236.772 1141.930 134.406 Weight 121 kg Intake: IV 143 156 13 0.9 NS 110 120 10 Pressure Bag 33 36 3 Intake, IV Titration 5131.722 8710.930 151.406 Amount Argatroban 50 mg In 71.582 0 23.86 Sodium Chloride 0.9% 50 ml @ 0.5 MCG/KG/MIN 3.597 mls/hr IV .[id number] PRAFUL Rx#:[id number] Cisatracurium 200 mg In 212.819 156.522 Sodium Chloride 0.9% 180 ml @ 1 MCG/KG/MIN 6.936 mls/hr IV .Q24H PRAFUL Rx#: [id number] Dextrose 5% in Water 1, 840 840 70 000 ml @ 70 mls/hr IV . [id number] PRAFUL with Sodium Bicarb (1 Meq/ml) 150 ml Rx#:[id number] Norepinephrine 8 mg In 150.397 57.546 Sodium Chloride 0.9% 250 ml @ 0.05 MCG/KG/MIN 11. 01 mls/hr IV .[id number] PRAFUL Rx#:[id number] fentaNYL (PF) 1,000 mcg 117.238 136.408 In Sodium Chloride 0.9% 80 ml @ Per Protocol IV . Q0M PRAFUL Rx#:[id number] propofoL 1,000 mg In 366.181 200 Empty Bag 1 bag @ Titrate IV .Q0M PRAFUL Rx#: [id number] Oral 30 Tube Feeding 120 60 Hemodialysis 500 Other 60 30 Output: Urine 380 265 30 Other: Voiding Method Indwelling Catheter Indwelling Catheter - Labs CBC & Chem 7: 07/11/20 04:25 07/11/20 04:25 Labs: Abnormal Lab Results - Last 24 Hours (Table) 07/10/20 07/10/20 07/10/20 Range/Units 05:40 11:39 12:00 WBC (3.8-10.6) k/uL RBC (4.30-5.90) m/uL Hgb (13.0-17.5) gm/dL Hct (39.0-53.0) % Plt Count (150-450) k/uL Neutrophils # (Manual) (1.3-7.7) k/uL Metamyelocytes # (Man) (0) k/uL Myelocytes # (Manual) (0) k/uL D-Dimer (<0.60) mg/L FEU ABG pH (7.35-7.45) ABG pO2 (83-108) mmHg ABG Total CO2 (19-24) mmol/L Sodium (137-145) mmol/L Potassium 5.2 H (3.5-5.1) mmol/L Carbon Dioxide (22-30) mmol/L BUN (9-20) mg/dL Creatinine (0.66-1.25) mg/dL Glucose (74-99) mg/dL POC Glucose (mg/dL) 103 H (75-99) mg/dL Calcium (8.4-10.2) mg/dL Phosphorus (2.5-4.5) mg/dL Ferritin 819.4 H (22.0-322.0) ng/mL ALT (4-49) U/L Lactate Dehydrogenase (313-618) U/L Creatine Kinase (55-170) U/L C-Reactive Protein (<10.0) mg/L Total Protein (6.3-8.2) g/dL Albumin (3.5-5.0) g/dL 07/10/20 07/10/20 07/11/20 Range/Units 17:56 23:35 04:25 WBC (3.8-10.6) k/uL RBC (4.30-5.90) m/uL Hgb (13.0-17.5) gm/dL Hct (39.0-53.0) % Plt Count (150-450) k/uL Neutrophils # (Manual) (1.3-7.7) k/uL Metamyelocytes # (Man) (0) k/uL Myelocytes # (Manual) (0) k/uL D-Dimer (<0.60) mg/L FEU ABG pH (7.35-7.45) ABG pO2 (83-108) mmHg ABG Total CO2 (19-24) mmol/L Sodium 133 L (137-145) mmol/L Potassium (3.5-5.1) mmol/L Carbon Dioxide 20 L (22-30) mmol/L BUN 100 H (9-20) mg/dL Creatinine 4.14 H (0.66-1.25) mg/dL Glucose 110 H (74-99) mg/dL POC Glucose (mg/dL) 150 H 114 H (75-99) mg/dL Calcium 7.6 L (8.4-10.2) mg/dL Phosphorus 9.7 H* (2.5-4.5) mg/dL Ferritin 847.2 H (22.0-322.0) ng/mL ALT 128 H (4-49) U/L Lactate Dehydrogenase 1055 H (313-618) U/L Creatine Kinase 570 H (55-170) U/L C-Reactive Protein 13.8 H (<10.0) mg/L Total Protein 5.2 L (6.3-8.2) g/dL Albumin 2.8 L (3.5-5.0) g/dL 07/11/20 07/11/20 07/11/20 Range/Units 04:25 04:25 06:40 WBC 18.1 H (3.8-10.6) k/uL RBC 3.72 L (4.30-5.90) m/uL Hgb 10.6 L (13.0-17.5) gm/dL Hct 32.1 L (39.0-53.0) % Plt Count 141 L D (150-450) k/uL Neutrophils # (Manual) 15.50 H (1.3-7.7) k/uL Metamyelocytes # (Man) 0.54 H (0) k/uL Myelocytes # (Manual) 0.36 H (0) k/uL D-Dimer 19.69 H (<0.60) mg/L FEU ABG pH 7.33 L (7.35-7.45) ABG pO2 81 L (83-108) mmHg ABG Total CO2 25 H (19-24) mmol/L Sodium (137-145) mmol/L Potassium (3.5-5.1) mmol/L Carbon Dioxide (22-30) mmol/L BUN (9-20) mg/dL Creatinine (0.66-1.25) mg/dL Glucose (74-99) mg/dL POC Glucose (mg/dL) (75-99) mg/dL Calcium (8.4-10.2) mg/dL Phosphorus (2.5-4.5) mg/dL Ferritin (22.0-322.0) ng/mL ALT (4-49) U/L Lactate Dehydrogenase (313-618) U/L Creatine Kinase (55-170) U/L C-Reactive Protein (<10.0) mg/L Total Protein (6.3-8.2) g/dL Albumin (3.5-5.0) g/dL Microbiology - Last 24 Hours (Table) 07/04/20 19:38 Blood Culture - Final Blood No Growth after 144 hours 07/08/20 03:13 Gram Stain - Final Sputum Sputum Culture - Final Beta Hemolytic Strep Group C Assessment and Plan Assessment: Assessment #1 sepsis with covid-19 #2 acute hypoxic respiratory failure secondary to above #3 hypotension secondary to the above and that has improved #4 abnormal troponin #5 acute renal failure #6 possible HIT Plan #1 continue Argatrban #2 continue monitor the CBC #3 follow-up with the patient
--- NOTE | 2020-07-11 10:32 | P.PN ---
Subjective Progress Note Date: 07/10/20 Principal diagnosis: Coffee-ground emesis/output from NG tube Patient remains intubated and sedated in the ICU. No acute changes. No signs or symptoms of GI bleeding. Plan is to resume tube feeds today. Objective - Vital Signs Vital signs: Vital Signs Temp 97.8 F 07/10/20 08:00 Pulse 72 07/10/20 10:00 Resp 36 H 07/10/20 10:00 BP 103/45 07/10/20 10:00 Pulse Ox 99 07/10/20 10:00 Intake & Output 07/09/20 07/10/20 07/10/20 18:59 06:59 18:59 Intake Total 3655.680 5498.23 869.530 Output Total 145 815 80 Balance 1079.241 279.23 789.530 Weight 119.9 kg Intake: IV 392 12 9 Pressure Bag 72 12 9 Sodium Chloride 0.9% 1, 320 000 ml @ 80 mls/hr IV . [id number] PRAFUL Rx#:[id number] Intake, IV Titration 831.527 0601.23 830.530 Amount Argatroban 50 mg In 29.136 50 Sodium Chloride 0.9% 50 ml @ 0.5 MCG/KG/MIN 3.597 mls/hr IV .[id number] PRAFUL Rx#:[id number] Cisatracurium 200 mg In 176.521 Sodium Chloride 0.9% 180 ml @ 1 MCG/KG/MIN 6.936 mls/hr IV .Q24H PRAFUL Rx#: [id number] Dextrose 5% in Water 1, 560 840 280 000 ml @ 70 mls/hr IV . [id number] PRAFUL with Sodium Bicarb (1 Meq/ml) 150 ml Rx#:[id number] Norepinephrine 8 mg In 132.781 Sodium Chloride 0.9% 250 ml @ 0.05 MCG/KG/MIN 11. 01 mls/hr IV .[id number] PR[facility]UL Rx#:[id number] fentaNYL (PF) 1,000 mcg 79.186 91.228 In Sodium Chloride 0.9% 80 ml @ Per Protocol IV . Q0M PR[facility]UL Rx#:[id number] propofoL 1,000 mg In 148.919 212.23 100 Empty Bag 1 bag @ Titrate IV .Q0M PRAFUL Rx#: [id number] Oral 30 30 Tube Feeding 15 Output: Gastric Drainage 500 Urine 145 315 80 Other: Voiding Method Indwelling Catheter Indwelling Catheter - Exam On physical examination, patient appears comfortable in no apparent distress. HEAD: Normocephalic, atraumatic. EYES: No scleral icterus. No conjunctival injection. MOUTH: No lesions, tongue midline endotracheal tube in place. NECK: Trachea midline, no gross abnormalities. CHEST: Coarse respiratory noises at all lung palafox. ABDOMEN: Soft, obese. Bowel sounds are positive. No organomegaly. No guarding or rigidity. EXTREMITIES: Bilateral pedal edema. SKIN: No rashes, no jaundice. NEUROLOGIC: Intubated and sedated. - Labs CBC & Chem 7: 07/11/20 04:25 07/11/20 04:25 Labs: Abnormal Lab Results - Last 24 Hours (Table) 07/09/20 07/09/20 07/09/20 Range/Units 12:36 14:58 17:39 WBC (3.8-10.6) k/uL RBC (4.30-5.90) m/uL Hgb (13.0-17.5) gm/dL Hct (39.0-53.0) % Plt Count (150-450) k/uL Neutrophils # (1.3-7.7) k/uL Lymphocytes # (1.0-4.8) k/uL APTT 59.6 H (22.0-30.0) sec D-Dimer (<0.60) mg/L FEU ABG pH (7.35-7.45) ABG pCO2 (35-45) mmHg ABG HCO3 (21-25) mmol/L Sodium (137-145) mmol/L Potassium (3.5-5.1) mmol/L Carbon Dioxide (22-30) mmol/L BUN (9-20) mg/dL Creatinine (0.66-1.25) mg/dL Glucose (74-99) mg/dL POC Glucose (mg/dL) 151 H 160 H (75-99) mg/dL Calcium (8.4-10.2) mg/dL ALT (4-49) U/L Creatine Kinase (55-170) U/L C-Reactive Protein (<10.0) mg/L Total Protein (6.3-8.2) g/dL Albumin (3.5-5.0) g/dL 07/09/20 07/10/20 07/10/20 Range/Units 20:30 00:22 05:31 WBC (3.8-10.6) k/uL RBC (4.30-5.90) m/uL Hgb (13.0-17.5) gm/dL Hct (39.0-53.0) % Plt Count (150-450) k/uL Neutrophils # (1.3-7.7) k/uL Lymphocytes # (1.0-4.8) k/uL APTT (22.0-30.0) sec D-Dimer (<0.60) mg/L FEU ABG pH (7.35-7.45) ABG pCO2 (35-45) mmHg ABG HCO3 (21-25) mmol/L Sodium 134 L (137-145) mmol/L Potassium 5.8 H (3.5-5.1) mmol/L Carbon Dioxide 17 L (22-30) mmol/L BUN 101 H* (9-20) mg/dL Creatinine 4.03 H (0.66-1.25) mg/dL Glucose 146 H (74-99) mg/dL POC Glucose (mg/dL) 144 H 117 H (75-99) mg/dL Calcium 7.4 L (8.4-10.2) mg/dL ALT (4-49) U/L Creatine Kinase (55-170) U/L C-Reactive Protein (<10.0) mg/L Total Protein (6.3-8.2) g/dL Albumin (3.5-5.0) g/dL 07/10/20 07/10/20 07/10/20 Range/Units 05:40 05:40 05:40 WBC 12.8 H (3.8-10.6) k/uL RBC 3.07 L (4.30-5.90) m/uL Hgb 8.9 L D (13.0-17.5) gm/dL Hct 26.6 L (39.0-53.0) % Plt Count 78 L (150-450) k/uL Neutrophils # 11.8 H (1.3-7.7) k/uL Lymphocytes # 0.4 L (1.0-4.8) k/uL APTT 57.9 H (22.0-30.0) sec D-Dimer 23.24 H (<0.60) mg/L FEU ABG pH (7.35-7.45) ABG pCO2 (35-45) mmHg ABG HCO3 (21-25) mmol/L Sodium 134 L (137-145) mmol/L Potassium 5.3 H (3.5-5.1) mmol/L Carbon Dioxide 19 L (22-30) mmol/L BUN 105 H* (9-20) mg/dL Creatinine 4.10 H (0.66-1.25) mg/dL Glucose 115 H (74-99) mg/dL POC Glucose (mg/dL) (75-99) mg/dL Calcium 7.1 L (8.4-10.2) mg/dL ALT 160 H (4-49) U/L Creatine Kinase 412 H (55-170) U/L C-Reactive Protein 16.4 H (<10.0) mg/L Total Protein 5.0 L (6.3-8.2) g/dL Albumin 2.6 L (3.5-5.0) g/dL 07/10/20 Range/Units 06:18 WBC (3.8-10.6) k/uL RBC (4.30-5.90) m/uL Hgb (13.0-17.5) gm/dL Hct (39.0-53.0) % Plt Count (150-450) k/uL Neutrophils # (1.3-7.7) k/uL Lymphocytes # (1.0-4.8) k/uL APTT (22.0-30.0) sec D-Dimer (<0.60) mg/L FEU ABG pH 7.24 L (7.35-7.45) ABG pCO2 46 H (35-45) mmHg ABG HCO3 20 L (21-25) mmol/L Sodium (137-145) mmol/L Potassium (3.5-5.1) mmol/L Carbon Dioxide (22-30) mmol/L BUN (9-20) mg/dL Creatinine (0.66-1.25) mg/dL Glucose (74-99) mg/dL POC Glucose (mg/dL) (75-99) mg/dL Calcium (8.4-10.2) mg/dL ALT (4-49) U/L Creatine Kinase (55-170) U/L C-Reactive Protein (<10.0) mg/L Total Protein (6.3-8.2) g/dL Albumin (3.5-5.0) g/dL Microbiology - Last 24 Hours (Table) 07/08/20 03:13 Gram Stain - Final Sputum Sputum Culture - Final Beta Hemolytic Strep Group C 07/04/20 19:38 Blood Culture - Preliminary Blood No Growth after 120 hours 07/07/20 00:01 Gram Stain - Final Sputum Sputum Culture - Final Beta Hemolytic Strep Group C Assessment and Plan (1) Coffee ground emesis Narrative/Plan: 59-year-old male with multiple medical comorbidities who presented for shortness of breath and weakness is currently being treated for infection with Covid 19. The patient is intubated and sedated in the ICU and was noted to have some coffee-ground output from his nasogastric tube. No other signs or symptoms of GI bleeding. Suspicion is for trauma from NG tube placement, differential also includes gastritis, esophagitis, peptic ulcer disease or other etiology. No further signs or symptoms of bleeding today plan is to resume tube feeds. Current Visit: Yes Status: Acute Code(s): K92.0 - HEMATEMESIS SNOMED Code(s): 62746360 (2) Pneumonia due to COVID-19 virus Current Visit: Yes Status: Acute Code(s): U07.1 - COVID-19; J12.82 - Pneumonia due to coronavirus disease 2018 SNOMED Code(s): 732722325557470486 Plan: Supportive care Continue monitor hemoglobin and hematocrit and transfuse as needed Continue Protonix 40 mg twice daily If no further signs or symptoms of GI bleeding okay to initiate tube feeds with cold as directed by the nutrition department No plans for endoscopic evaluation at this time, if further episodes of GI bleeding or precipitous fall in hemoglobin we'll reevaluate then Continue other medical management as per primary team and apprentice electrician service Thank you for allowing us to participate in the care of the patient, the GI service will stand by, please call us back with any questions or concerns
[2020-07-11] MEDS: SODIUM BICARBONATE TAB 650 MG TAB PO SCH ×3 (11:37→19:46)
[2020-07-11] MEDS: CALCIUM ACETATE 667 MG TAB PO SCH ×2 (11:37→17:25)
[2020-07-11 12:10] LABS: Glucose,Whole Blood 113 mg/dL (75-99)
[2020-07-11] MEDS: INSULIN ASPART (NovoLOG) 100 UNIT/ML VIAL SQ SCH ×3 (12:17→23:39)
--- NOTE | 2020-07-11 12:23 | XR ---
EXAMINATION TYPE: XR chest 1V portable DATE OF EXAM: 07/11/2020 COMPARISON: 07/10/2020 INDICATION: Tube placement TECHNIQUE: Single frontal view of the chest is obtained. FINDINGS: The heart size is normal. The pulmonary vasculature is normal. Bibasilar mild infiltrates are present, stable from comparison r endotracheal tube is in place with the tip 4.7 cm above the chato. Nasogastric tube transverses th e thorax. IMPRESSION: 1. Mild bibasilar infiltrates present previously. 2. Lines and catheters discussed above.
--- NOTE | 2020-07-11 13:46 | P.PN ---
Subjective Progress Note Date: 07/11/20 Principal diagnosis: Acute hypoxemic respiratory failure secondary to acute CoVID 19 pneumonia/pneumonitis This is a 59-year-old male who presented to the emergency department and apparently tested positive for COVID 8 days ago. The patient has apparently been sick for about 10 days. His complaints included weakness and difficulty breathing. In addition, the patient had cough. Patient apparently denied fever, headache, pain, or other complaints initially. Patient is legally blind. The patient did not receive the coronavirus vaccination. Apparently, in the emergency department, his respiratory status declined, and he was intubated. The patient on the volume assist control mode rate of 24, breathing 30 times a minute, tidal volume 450, FiO2 100%, PEEP of 5 being increased to 10. Arterial blood gases show pO2 75, pCO2 33, pH is 7.44. He is receiving propofol at 30 mcg/kg/m, heparin via weightbase protocol, and saline at 20 mL an hour. The patient has a history of hypertension, heart posterior arthritis, sleep apnea, and is legally blind. Chest x-ray shows diffuse bilateral infiltrates. White count 6.3, hemoglobin 12.5, hematocrit 36.8, platelet count 216,000. PTT is 35.4. D-dimer 0.68. Sodium 134, potassium 4.3, chlorides 100, CO2 23, anion gap 11, BUN 39, creatinine 1.70. Troponins were 1.270 and 0.997. C-reactive protein is 261, N-terminal proBNP 4540. Pro-calcitonin is 0.23. Urine is negative both for nitrite and leukocyte esterase. Occasional bacteria, and few white blood cell clumps. Patient seen today 07/07/2020 in follow-up in the intensive care unit. He remains intubated on mechanical ventilator assist control mode. Rate of 24, tidal volume 450, FiO2 100% and a PEEP of 15. Morning blood gases reveal a pO2 135, pCO2 55, pH 7.22. He remains sedated on propofol at 60 mcg/kg/m. Norepinephrine at 0.03 mcg/kg/m. 0.9 normal saline at 80 MLS per hour. Tube feedings have not been initiated yet due to increased output from the NG tube which is coffee-ground in color. Blood cultures reveal no growth. Urine culture reveal no growth. Sputum cultures pending. White count 18.2. Hemoglobin 13.7. Platelet count 110. D-dimer greater than 34. Sodium 137. Potassium 5.9. Creatinine 1.55. Ferritin 5795. LDH 2301. C-reactive protein 147. Glucose 148. He is continued on bronchodilators, dexamethasone, vitamin supplements. He remains on Levaquin. Chest x-ray reveals scattered airspace infiltrates bilaterally. Unchanged. He did receive Tocilizumab. The patient is seen today 07/08/2020 and follow-up in the intensive care unit. He remains intubated and on the mechanical ventilator. Assist-control mode at a rate of 30, tidal volume 450, FiO2 80% and a PEEP of 15. Morning blood gases reveal a P O2 of 91, P CO2 of 49, pH 7.22. He is sedated on propofol at 60 mcg/kg/m. Norepinephrine at 6 mcg/m. 0.9 normal saline at 80 MLS per hour. He was initiated back on his Lovenox yesterday due to d-dimer greater than 34 but was again discontinued. GI services are on the case. White count 20.8. Hemoglobin 12.4. Platelet count 90,000. Sodium 136. Potassium 5.4. Creatinine 2.83. Remains on dexamethasone, vitamin supplements. Antibiotics in the form of Levaquin. Follow-up blood culture reveals no growth. Sputum culture pending. Urine culture revealed no growth. The patient is seen today 07/09/2020 in follow-up in the intensive care unit. He remains intubated, sedated on the mechanical ventilator. Current settings assist-control mode at a rate of 30, tidal volume 450, FiO2 40% and a PEEP of 18. Morning blood gases revealed a PaO2 of 74, pCO2 55, pH 7.14. He is sedated with propofol at 60 mcg/kg/m. Fentanyl drip at 0.5 mcg/kg/h. Nimbex at 1 mcg/kg/m. Being nourished with Nepro at 15 ML's per hour which is his goal. Chest x-ray continues to show patchy bilateral infiltrates, increased in the left midlung. He is now noted to have a cool and dusky left hand with no palpable pulse. Venous Doppler did not reveal any DVT of the left upper extremity. However there is superficial thrombus noted in the left cephalic vein and left basilic vein as noted previously. Follow-up sputum culture pending. White count 17.0. Hemoglobin 11.9. Platelet count 76,000. Lymphocytes 0.5. Sodium 136. Potassium 6.4. Bicarb 17. BUN 91. Creatinine 3.74. Glucose 125. LDH 1316, C-reactive protein 30.8. He has been initiated on argatroban at 0.5 mcg/kg/m. HIT antibodies are pending. He has been initiated on D5W with 3 A of sodium bicarb at 70 ML's per hour. Remains on dexamethasone and vitamin supplements. Patient is seen today 07/10/2020 and follow-up in the intensive care unit. He remains intubated, sedated on the mechanical ventilator. Current settings assist-control mode at a rate of 36, tidal volume 450, FiO2 40% and a PEEP of 18. Morning blood gases reveal a pO2 of 95, pCO2 46, pH 7.24. He is currently sedated on propofol at 60 mcg/kg/m, Nimbex at 1 mcg/kg/m, fentanyl at 0.5 mcg/kg per hour. Norepinephrine at 4 mcg/m. D5W with 3 A of bicarb at 70 ML's per hour. He remains on Argatroban at 0.5 mcg/kg/m. Tube feedings are currently on hold due to high residual volumes. Chest x-ray continue to show bibasilar infiltrates. White count 12.8. Hemoglobin 8.9. White count 78,000. D-dimer 23.24. Sodium 134. Potassium 5.3. Creatinine 4.10. The patient is seen today 07/11/2020 in follow-up in the intensive care unit. He remains intubated, sedated on the mechanical ventilator at assist control mode of a rate of 36, tidal volume 450, FiO2 40% and a PEEP of 15. Morning blood gases reveal pO2 of 81, pCO2 44, pH 7.32. He remains sedated on propofol at 60 mcg/kg/m, fentanyl at 0.7 mcg/kg/h, norepinephrine at 4 mcg/m, D5W with 3 A of sodium bicarb at 70 ML's per hour. Nimbex at 2 mcg/kg/m. He is continued on Argatroban at 0.5 mcg/kg/m. Being nourished with Nepro at 15 ML's per hour. He did receive hemodialysis yesterday with 1 L removed. Chest x-ray reveals mild bibasilar infiltrates. Sputum cultures positive for beta-hemolytic strep, group C. White count 18.1. Hemoglobin 10.6. Platelet count 141. D-dimer 19.69. Sodium 133. Potassium 4.7. Creatinine 4.14. LDH 1055, C-reactive protein 13.8. Remains on antibiotics in the form of ceftriaxone. Bronchodilators. Vitamin supplements. Dexamethasone. Remains off Lovenox due to HIT. Objective - Vital Signs Vital signs: Vital Signs Temp 98.4 F 07/11/20 04:00 Pulse 105 H 07/11/20 13:00 Resp 36 H 07/11/20 13:00 BP 136/64 07/11/20 13:00 Pulse Ox 85 L 07/11/20 13:00 Intake & Output 07/10/20 07/11/20 07/11/20 18:59 06:59 18:59 Intake Total 2111.217 2078.930 1091.756 Output Total 380 265 180 Balance 0099.260 8971.930 911.756 Weight 121 kg Intake: IV 143 156 232 0.9 NS 110 120 20 Pressure Bag 33 36 12 Sodium Chloride 0.9% 1, 200 000 ml @ 50 mls/hr IV . Q[facility]H [facility] Rx#:[id number] Intake, IV Titration 3755.125 9685.930 569.756 Amount Argatroban 50 mg In 71.582 0 23.86 Sodium Chloride 0.9% 50 ml @ 0.5 MCG/KG/MIN 3.597 mls/hr IV .[id number] [facility] Rx#:[id number] Cisatracurium 200 mg In 212.819 156.522 93.174 Sodium Chloride 0.9% 180 ml @ 1 MCG/KG/MIN 6.936 mls/hr IV .Q24H [facility] Rx#: [id number] Dextrose 5% in Water 1, 840 840 70 000 ml @ 70 mls/hr IV . [id number] [facility] with Sodium Bicarb (1 Meq/ml) 150 ml Rx#:[id number] Norepinephrine 8 mg In 150.397 82.722 Sodium Chloride 0.9% 250 ml @ 0.05 MCG/KG/MIN 11. 01 mls/hr IV .[id number] [facility] Rx#:[id number] cefTRIAXone 2 gm In 100 Sodium Chloride 0.9% 50 ml @ 100 mls/hr IVPB Q24HR [facility] Rx#:[id number] fentaNYL (PF) 1,000 mcg 117.238 136.408 100.000 In Sodium Chloride 0.9% 80 ml @ Per Protocol IV . Q0M [facility] Rx#:[id number] propofoL 1,000 mg In 366.181 200 100 Empty Bag 1 bag @ Titrate IV .Q0M [facility] Rx#: [id number] Oral 30 Tube Feeding 120 60 120 Hemodialysis 500 Other 60 30 170 Output: Urine 380 265 180 Other: Voiding Method Indwelling Catheter Indwelling Catheter Indwelling Catheter - Exam GENERAL EXAM: Intubated, sedated 59-year-old gentleman, on the mechanical ventil ator currently on 40% FiO2 and a PEEP of 15, in no apparent distress. HEAD: Normocephalic. EYES: Sluggish reaction of pupils, equal size. NOSE: Clear with pink turbinates. THROAT: Oral endotracheal and gastric tube secured in place No erythema or exudates. NECK: No masses, no JVD. CHEST: No chest wall deformity. LUNGS: Equal air entry with crackles in the bilateral posterior bases CVS: S1 and S2 normal with no audible murmur, regular rhythm. ABDOMEN: No hepatosplenomegaly, normal bowel sounds, no guarding or rigidity. SPINE: No scoliosis or deformity SKIN: No rashes, some oozing from the scrotum CENTRAL NERVOUS SYSTEM: Sedated. No focal deficits, tone is normal in all 4 extremities. EXTREMITIES: Left upper extremity cool, dusky, pulseless. - Labs CBC & Chem 7: 07/11/20 04:25 07/11/20 04:25 Labs: Abnormal Lab Results - Last 24 Hours (Table) 07/10/20 07/10/20 07/11/20 Range/Units 17:56 23:35 04:25 WBC (3.8-10.6) k/uL RBC (4.30-5.90) m/uL Hgb (13.0-17.5) gm/dL Hct (39.0-53.0) % Plt Count (150-450) k/uL Neutrophils # (Manual) (1.3-7.7) k/uL Metamyelocytes # (Man) (0) k/uL Myelocytes # (Manual) (0) k/uL D-Dimer (<0.60) mg/L FEU ABG pH (7.35-7.45) ABG pO2 (83-108) mmHg ABG Total CO2 (19-24) mmol/L Sodium 133 L (137-145) mmol/L Carbon Dioxide 20 L (22-30) mmol/L BUN 100 H (9-20) mg/dL Creatinine 4.14 H (0.66-1.25) mg/dL Glucose 110 H (74-99) mg/dL POC Glucose (mg/dL) 150 H 114 H (75-99) mg/dL Calcium 7.6 L (8.4-10.2) mg/dL Phosphorus 9.7 H* (2.5-4.5) mg/dL Ferritin 847.2 H (22.0-322.0) ng/mL ALT 128 H (4-49) U/L Lactate Dehydrogenase 1055 H (313-618) U/L Creatine Kinase 570 H (55-170) U/L C-Reactive Protein 13.8 H (<10.0) mg/L Total Protein 5.2 L (6.3-8.2) g/dL Albumin 2.8 L (3.5-5.0) g/dL 07/11/20 07/11/20 07/11/20 Range/Units 04:25 04:25 06:40 WBC 18.1 H (3.8-10.6) k/uL RBC 3.72 L (4.30-5.90) m/uL Hgb 10.6 L (13.0-17.5) gm/dL Hct 32.1 L (39.0-53.0) % Plt Count 141 L D (150-450) k/uL Neutrophils # (Manual) 15.50 H (1.3-7.7) k/uL Metamyelocytes # (Man) 0.54 H (0) k/uL Myelocytes # (Manual) 0.36 H (0) k/uL D-Dimer 19.69 H (<0.60) mg/L FEU ABG pH 7.33 L (7.35-7.45) ABG pO2 81 L (83-108) mmHg ABG Total CO2 25 H (19-24) mmol/L Sodium (137-145) mmol/L Carbon Dioxide (22-30) mmol/L BUN (9-20) mg/dL Creatinine (0.66-1.25) mg/dL Glucose (74-99) mg/dL POC Glucose (mg/dL) (75-99) mg/dL Calcium (8.4-10.2) mg/dL Phosphorus (2.5-4.5) mg/dL Ferritin (22.0-322.0) ng/mL ALT (4-49) U/L Lactate Dehydrogenase (313-618) U/L Creatine Kinase (55-170) U/L C-Reactive Protein (<10.0) mg/L Total Protein (6.3-8.2) g/dL Albumin (3.5-5.0) g/dL 07/11/20 Range/Units 12:05 WBC (3.8-10.6) k/uL RBC (4.30-5.90) m/uL Hgb (13.0-17.5) gm/dL Hct (39.0-53.0) % Plt Count (150-450) k/uL Neutrophils # (Manual) (1.3-7.7) k/uL Metamyelocytes # (Man) (0) k/uL Myelocytes # (Manual) (0) k/uL D-Dimer (<0.60) mg/L FEU ABG pH (7.35-7.45) ABG pO2 (83-108) mmHg ABG Total CO2 (19-24) mmol/L Sodium (137-145) mmol/L Carbon Dioxide (22-30) mmol/L BUN (9-20) mg/dL Creatinine (0.66-1.25) mg/dL Glucose (74-99) mg/dL POC Glucose (mg/dL) 113 H (75-99) mg/dL Calcium (8.4-10.2) mg/dL Phosphorus (2.5-4.5) mg/dL Ferritin (22.0-322.0) ng/mL ALT (4-49) U/L Lactate Dehydrogenase (313-618) U/L Creatine Kinase (55-170) U/L C-Reactive Protein (<10.0) mg/L Total Protein (6.3-8.2) g/dL Albumin (3.5-5.0) g/dL Microbiology - Last 24 Hours (Table) 07/04/20 19:38 Blood Culture - Final Blood No Growth after 144 hours Assessment and Plan Assessment: 1 Acute hypoxemic respiratory failure secondary to acute CoVID 19 pneumon ia/pneumonitis requiring mechanical ventilation on 07/05/2020. Received a tocilizumab. 2 Elevated inflammatory markers secondary to above 3 History of obstructive sleep apnea, maintained on CPAP 4 History of blindness 5 Hypertension, history of 6 Osteoarthritis 7 Acute renal failure 8 Hyperkalemia 9 Cool, dusky left upper extremity negative for DVT, however, there is superficial thrombus in the left cephalic vein and left basilic 10 Heparin-induced thrombocytopenia Plan: The patient was seen and evaluated by Dr. Meneses Chest x-ray, ABGs and labs reviewed Decrease the PEEP from 15 to 10 Wean off Nimbex Plan is for HD again today Continue Argatroban HIT antibodies present, remains off Lovenox Continue tube feedings Continue dexamethasone, vitamin supplements We'll continue to follow and make further recommendations based on his clinical status Critical care time 35 minutes I, the cosigning physician, performed a history & physical examination of the patient. Lungs sounds with bilateral crackles. Maintaining good O2 saturations in the 90s on 40% FiO2 and PEEP of 15 via the mechanical ventilator. I discussed the assessment and plan of care with my nurse practitioner, Zoë Roberts. I attest to the above note as dictated by her.
[2020-07-11 15:30] LABS: ABG PH 7.14 (7.35-7.45)
[2020-07-11 18:02] LABS: Glucose,Whole Blood 125 mg/dL (75-99)
--- NOTE | 2020-07-11 19:42 | PN ---
PROGRESS NOTE DATE OF SERVICE: 07/11/2020 REASON FOR FOLLOWUP: Pneumonia. INTERVAL HISTORY: The patient is currently afebrile. The patient is requiring low-dose pressor support. The patient has been dialyzed yesterday as well as today. Has been tolerating tube feeds. Has been on a bolus feeding and no diarrhea has been reported. PHYSICAL EXAMINATION: Blood pressure 106/53, pulse of 82, temperature 98. He is 99% on 40% FiO2. General description is a middle-aged male intubated on the vent. Respiratory system: Unlabored breathing, decreased intensity of breath sounds. No wheeze. Heart: S1, S2. Regular rate and rhythm. Abdomen soft, no tenderness. LABS: Hemoglobin is 10.8, white count 18.9, BUN of 100, creatinine 4.14. Inflammatory markers slightly up. Sputum has been beta-hemolytic group C. DIAGNOSTIC IMPRESSION AND PLAN: Patient with acute respiratory failure which is multifactorial in this patient who did have COVID-19 pneumonia plus-minus bacterial component. Patient is covered with ( ), dexamethasone, zinc, ascorbic acid and Rocephin, to continue and monitor clinical course closely. Continue supportive care. MMODL / IJN: [id number] /
[2020-07-11 23:17] LABS: Glucose,Whole Blood 85 mg/dL (75-99)
--- NOTE | 2020-07-12 00:57 | P.PN ---
Subjective This is a pleasant 53 years old male with past medical history of hypertension, osteoarthritis, sleep apnea. Presents with respiratory distress secondary to covid pneumonia and secondary bacterial infection is suspected as well with positive sputum culture for streptococcus, group C. Patient is currently monitored in the ICU because of his respiratory failure, currently on mechanical ventilation and need a small dose of Levophed at 4 g today. Also patient has elevated troponin and he was started on heparin drip however he developed coffee-ground emesis via anicteric tube, heparin drip was stopped and hemoglobin is stable and normal at 12.4 today. Shroud Line Tier found to his elevated troponin is secondary to his Covid infection and hypotension, Lovenox is on hold although patient has elevated d-dimer due to coffee ground vomiting. Distal sedation, his blood pressure is marginal 104/60 this morning. Pulmonary team performed closely and help with vent management, his PEEP was increased today from 15-18. His oxygen saturation is guarded at 100% with FiO2 of 70%. Patient has marginal urine output at 20 mL/h and continue with normal saline at 80 mL per hour 07/09/2020 Patient remains in critical condition in the ICU, he is sedated and on mechanical ventilation with pulmonary/critical care team followed closely and management. He still needs high PEEP at 18. Today he had suspected left hand coldness and vascular surgery consult, no intervention indicated given his critical guarded condition. He had coffee-ground emesis yesterday and no such episodes, his aspirin was held as well as his Lovenox and switch his anticoagulation into argatroban drip . 4 dropping platelets 90,to 76K today. It NT chase is pending. His creatinine is worsening with nephrology on the case and patient was started on bicarbonate drip, his normal saline at 80 mL per hour was stopped He remains on ceftriaxone 2 g daily for sputum culture positive with streptococcus group C. Also he is on zinc, vitamin D, dexamethasone, Protonix twice daily and Carafate 07/10/2020 Patient remains in the ICU intubated and sedated with pulmonary/critical care team managing his friend, currently he is on PEEP 18 dropped to 15 today by pulmonary team. Despite his history of coffee ground vomitus he was started on argatroban drip for suspected left hand ischemia . Also he is on mild septic shock secondary to bacterial superimposed infection with streptococcus group C found in the blood and sputum cultures on the top of his bilateral Covid pneumonia. He has increased troponin leak secondary to Covid and creatinine is still elevated at 4.1 and followed closely by nephrology team Patient is tachypneic at 36 and blood pressure 121/51 Labs showing trending down WBC to 12.8 K, hemoglobin dropped to 8.9 and Carafate was stopped by coronary team. Platelets are stable 70 6K yesterday and 70 8K today. C-reactive protein is down to 16. Chest x-ray showing bilateral infiltrates. D-dimer was elevated at 34 and throatcalcitonin of 0.23 He remains on ceftriaxone 2 g per ID team, on zinc, vitamin D. Bicarbonate drip,argatroban drip, Protonix twice a day. While aspirating is kept on hold 07/11/2020 Patient in the ICU intubated and sedated. Followed by several consultants Left hand is improving however it is still dusky/bluish color. Tube feeding is in home due to coffee ground emesis. Vent management per pulmonary team, currently PEEP is lowered from 15 down to 10, hit antibodies are positive. Labs showing WBC 18 K, hemoglobin 10.0, platelets 141, creatinine is stable since yesterday at 4.1, LDH is a 1055, C-reactive protein is 13 only. On 07/10 patient was started on hemodialysis for worsening kidney function and creatinine and potassium with low urine output he is still sedated with Nimbex. Tube feeding was on hold due to his history of coffee ground vomitus recently. After the patient remains on argatroban and levophed drip Platelets 141, hemoglobin down to 10.0 K, WBC down to 18 LDH is 1055 and C-reactive protein is within the reference range at 13. Patient is afebrile. In the emergency room he was started on ceftriaxone for Covid and possible superinfection. Also sodium bicarb Was stopped and switched to tablets, normal saline is ordered by primary team, continue with argatroban drip . Also patient is an Protonix and dexamethasone and vitamins. Aspirin was discontinued as well as Lovenox. Troponin Review of systems: N/a Active Medications Generic Name Dose Route Start Last Admin Trade Name Freq PRN Reason Stop Dose Admin Albuterol Sulfate 2 puff 07/05/20 08:00 07/11/20 16:53 Albuterol Hfa Inhaler INHALATION 2 puff RT-TID PRAFUL Administration Aripiprazole 5 mg 07/04/20 21:00 07/11/20 19:47 Aripiprazole 5 Mg Tab PO 5 mg BID PRAFUL Administration Artificial Tears 2 drops 07/08/20 16:00 07/11/20 23:39 Artificial Tears-Hypromellose Drops 15 Ml Btl BOTH EYES 2 drops Q4HR PRAFUL Administration Calcium Acetate 667 mg 07/11/20 12:30 07/11/20 17:25 Calcium Acetate 667 Mg Tab PO 667 mg TID-W/MEALS PRAFUL Administration Chlorhexidine Gluconate 15 ml 07/07/20 09:00 07/11/20 19:46 Chlorhexidine Gluconate 15 Ml Cup MUCOUS MEM 15 ml BID PRAFUL Administration Cholecalciferol 125 mcg 07/05/20 09:00 07/11/20 08:41 Cholecalciferol 25 Mcg (1000 Iu) Tablet PO 125 mcg DAILY PRAFUL Administration Dexamethasone Sodium Phosphate 6 mg 07/05/20 09:00 07/11/20 08:41 Dexamethasone Sod Phosphate 10 Mg/Ml 1 Ml Vial IV 6 mg DAILY PRAFUL Administration Hydromorphone HCl 0.5 mg 07/04/20 20:56 07/08/20 14:21 Hydromorphone 0.5 Mg/0.5 Ml Syringe IVP 0.5 mg Q6HR PRN Administration Severe Pain Propofol 1,000 mg/ IV Solution 100 mls @ 0 mls/hr 07/05/20 04:00 07/11/20 23:37 IV 60 mcg/kg/min .Q0M PRAFUL 43.164 mls/hr Administration Protocol Titrate Norepinephrine Bitartrate 8 mg 258 mls @ 11.01 mls/hr 07/07/20 12:30 07/11/20 18:22 / Sodium Chloride IV 0.05 mcg/kg/min .[id number] PRAFUL 11.01 mls/hr Titration Protocol 0.05 MCG/KG/MIN Cisatracurium Besylate 200 mg/ 200 mls @ 6.936 mls/hr 07/08/20 12:45 07/11/20 16:00 Sodium Chloride IV 0 mcg/kg/min .Q24H PRAFUL 0 mls/hr Titration Protocol 1 MCG/KG/MIN Fentanyl Citrate 1,000 mcg/ 100 mls @ 0 mls/hr 07/08/20 15:15 07/11/20 21:07 Sodium Chloride IV 1 mcg/kg/hr .Q0M PRAFUL 11.56 mls/hr Administration Protocol Per Protocol Ceftriaxone Sodium 2 gm/ 50 mls @ 100 mls/hr 07/08/20 17:30 07/11/20 11:40 Sodium Chloride IVPB 100 mls/hr Q24HR PRAFUL Administration Argatroban 50 mg/ Sodium 50 mls @ 3.597 mls/hr 07/09/20 09:30 07/11/20 08:56 Chloride IV 0.5 mcg/kg/min .[id number] PRAFUL 3.597 mls/hr Administration Protocol 0.5 MCG/KG/MIN Sodium Chloride 1,000 mls @ 50 mls/hr 07/11/20 08:45 07/11/20 09:00 Saline 0.9% IV 50 mls/hr .Q20H PRAFUL Administration Insulin Aspart 0 unit 07/11/20 12:00 07/11/20 23:39 Insulin Aspart (Novolog) 100 Unit/Ml Vial SQ Not Given Q6H PRAFUL Protocol Metoclopramide HCl 10 mg 07/10/20 12:00 07/11/20 23:39 Metoclopramide 5 Mg/Ml 2 Ml Vial IVP 10 mg Q6HR PRAFUL Administration Pantoprazole Sodium 40 mg 07/05/20 21:00 07/11/20 19:46 Pantoprazole 40 Mg/10 Ml Vial IVP 40 mg BID PRAFUL Administration Sertraline HCl 200 mg 07/05/20 09:00 07/11/20 09:00 Sertraline 100 Mg Tab PO 200 mg DAILY PRAFUL Administration Sodium Bicarbonate 650 mg 07/11/20 09:45 07/11/20 19:46 Sodium Bicarbonate Tab 650 Mg Tab PO 650 mg TID PRAFUL Administration Zinc Sulfate 220 mg 07/04/20 21:00 07/11/20 08:42 Zinc Sulfate 220 Mg Cap PO 220 mg DAILY PRAFUL Administration Objective - Vital Signs Vital signs: Vital Signs Temp 98.4 F 07/11/20 04:00 Pulse 102 H 07/11/20 14:00 Resp 36 H 07/11/20 14:00 BP 108/54 07/11/20 14:00 Pulse Ox 93 L 07/11/20 14:00 Intake & Output 07/10/20 07/11/20 07/11/20 18:59 06:59 18:59 Intake Total 2111.217 2078.930 1144.756 Output Total 380 265 210 Balance 5468.191 3129.930 934.756 Weight 121 kg Intake: IV 143 156 285 0.9 NS 110 120 20 Pressure Bag 33 36 15 Sodium Chloride 0.9% 1, 250 000 ml @ 50 mls/hr IV . Q20H [facility] Rx#:[id number] Intake, IV Titration 5054.157 1338.930 569.756 Amount Argatroban 50 mg In 71.582 0 23.86 Sodium Chloride 0.9% 50 ml @ 0.5 MCG/KG/MIN 3.597 mls/hr IV .[id number] [facility] Rx#:[id number] Cisatracurium 200 mg In 212.819 156.522 93.174 Sodium Chloride 0.9% 180 ml @ 1 MCG/KG/MIN 6.936 mls/hr IV .Q24H [facility] Rx#: [id number] Dextrose 5% in Water 1, 840 840 70 000 ml @ 70 mls/hr IV . [id number] PRAFUL with Sodium Bicarb (1 Meq/ml) 150 ml Rx#:[id number] Norepinephrine 8 mg In 150.397 82.722 Sodium Chloride 0.9% 250 ml @ 0.05 MCG/KG/MIN 11. 01 mls/hr IV .[id number] [facility] Rx#:[id number] cefTRIAXone 2 gm In 100 Sodium Chloride 0.9% 50 ml @ 100 mls/hr IVPB Q24HR [facility] Rx#:[id number] fentaNYL (PF) 1,000 mcg 117.238 136.408 100.000 In Sodium Chloride 0.9% 80 ml @ Per Protocol IV . Q0M [facility]AFUL Rx#:[id number] propofoL 1,000 mg In 366.181 200 100 Empty Bag 1 bag @ Titrate IV .Q0M [facility] Rx#: [id number] Oral 30 Tube Feeding 120 60 120 Hemodialysis 500 Other 60 30 170 Output: Urine 380 265 210 Other: Voiding Method Indwelling Catheter Indwelling Catheter Indwelling Catheter - Exam -GENERAL: The patient is intubated and sedated, well nourished. HEENT: Pupils are round and equally reacting to light. EOMI. No scleral icterus. No conjunctival pallor. Normocephalic, atraumatic. No pharyngeal erythema. No thyromegaly. CARDIOVASCULAR: S1 and S2 present. No murmurs, rubs, or gallops. PULMONARY: Chest is clear to auscultation, no wheezing or crackles. ABDOMEN: Soft, nontender, nondistended, normoactive bowel sounds. No palpable organomegaly. MUSCULOSKELETAL: No joint swelling or deformity. EXTREMITIES: No cyanosis, clubbing, or pedal edema. NEUROLOGICAL: Gross neurological examination did not reveal any focal deficits. SKIN: No rashes. no petechiae. - Labs CBC & Chem 7: 07/11/20 04:25 07/11/20 04:25 Labs: Abnormal Lab Results - Last 24 Hours (Table) 07/10/20 07/10/20 07/11/20 Range/Units 17:56 23:35 04:25 WBC (3.8-10.6) k/uL RBC (4.30-5.90) m/uL Hgb (13.0-17.5) gm/dL Hct (39.0-53.0) % Plt Count (150-450) k/uL Neutrophils # (Manual) (1.3-7.7) k/uL Metamyelocytes # (Man) (0) k/uL Myelocytes # (Manual) (0) k/uL D-Dimer (<0.60) mg/L FEU ABG pH (7.35-7.45) ABG pO2 (83-108) mmHg ABG Total CO2 (19-24) mmol/L Sodium 133 L (137-145) mmol/L Carbon Dioxide 20 L (22-30) mmol/L BUN 100 H (9-20) mg/dL Creatinine 4.14 H (0.66-1.25) mg/dL Glucose 110 H (74-99) mg/dL POC Glucose (mg/dL) 150 H 114 H (75-99) mg/dL Calcium 7.6 L (8.4-10.2) mg/dL Phosphorus 9.7 H* (2.5-4.5) mg/dL Ferritin 847.2 H (22.0-322.0) ng/mL ALT 128 H (4-49) U/L Lactate Dehydrogenase 1055 H (313-618) U/L Creatine Kinase 570 H (55-170) U/L C-Reactive Protein 13.8 H (<10.0) mg/L Total Protein 5.2 L (6.3-8.2) g/dL Albumin 2.8 L (3.5-5.0) g/dL 07/11/20 07/11/20 07/11/20 Range/Units 04:25 04:25 06:40 WBC 18.1 H (3.8-10.6) k/uL RBC 3.72 L (4.30-5.90) m/uL Hgb 10.6 L (13.0-17.5) gm/dL Hct 32.1 L (39.0-53.0) % Plt Count 141 L D (150-450) k/uL Neutrophils # (Manual) 15.50 H (1.3-7.7) k/uL Metamyelocytes # (Man) 0.54 H (0) k/uL Myelocytes # (Manual) 0.36 H (0) k/uL D-Dimer 19.69 H (<0.60) mg/L FEU ABG pH 7.33 L (7.35-7.45) ABG pO2 81 L (83-108) mmHg ABG Total CO2 25 H (19-24) mmol/L Sodium (137-145) mmol/L Carbon Dioxide (22-30) mmol/L BUN (9-20) mg/dL Creatinine (0.66-1.25) mg/dL Glucose (74-99) mg/dL POC Glucose (mg/dL) (75-99) mg/dL Calcium (8.4-10.2) mg/dL Phosphorus (2.5-4.5) mg/dL Ferritin (22.0-322.0) ng/mL ALT (4-49) U/L Lactate Dehydrogenase (313-618) U/L Creatine Kinase (55-170) U/L C-Reactive Protein (<10.0) mg/L Total Protein (6.3-8.2) g/dL Albumin (3.5-5.0) g/dL 07/11/20 Range/Units 12:05 WBC (3.8-10.6) k/uL RBC (4.30-5.90) m/uL Hgb (13.0-17.5) gm/dL Hct (39.0-53.0) % Plt Count (150-450) k/uL Neutrophils # (Manual) (1.3-7.7) k/uL Metamyelocytes # (Man) (0) k/uL Myelocytes # (Manual) (0) k/uL D-Dimer (<0.60) mg/L FEU ABG pH (7.35-7.45) ABG pO2 (83-108) mmHg ABG Total CO2 (19-24) mmol/L Sodium (137-145) mmol/L Carbon Dioxide (22-30) mmol/L BUN (9-20) mg/dL Creatinine (0.66-1.25) mg/dL Glucose (74-99) mg/dL POC Glucose (mg/dL) 113 H (75-99) mg/dL Calcium (8.4-10.2) mg/dL Phosphorus (2.5-4.5) mg/dL Ferritin (22.0-322.0) ng/mL ALT (4-49) U/L Lactate Dehydrogenase (313-618) U/L Creatine Kinase (55-170) U/L C-Reactive Protein (<10.0) mg/L Total Protein (6.3-8.2) g/dL Albumin (3.5-5.0) g/dL Microbiology - Last 24 Hours (Table) 07/04/20 19:38 Blood Culture - Final Blood No Growth after 144 hours Assessment and Plan Assessment: Acute Covid pneumonia Suspected superimposed bacterial pneumonia with streptococcus Mild septic shock secondary to above especially his bacterial infection Suspected ischemia of the left hand on anticoagulation and draped Acute hypoxic respiratory failure needing mechanical ventilation Coffee ground vomiting with suspected acute GI bleed Thrombocytopenia Elevated troponin, secondary to renal function impairment, viral infection and hypotension Acute kidney injury Plan: This is a pleasant 59 years old male who presents with Covid pneumonia, possible bacterial pneumonia, and possible GI bleed. Continue with mechanical ventilation for pulmonary/critical care team will follow the patient closely. Continue with multiple vitamin zinc and vitamin D. Continue with ceftriaxone and antibiotics as per ID team. Continue with bicarbonate drip Currently on argatroban drip for pulmonary team. Keep monitoring hemoglobin and platelets Infectious disease, GI and cardiology, nephrology team on the case Labs and medication were reviewed.. Continue same treatment. Continue with symptomatic treatment. Resume home medication. Monitor lytes and vitals. DVT and GI prophylaxis. Further recommendations as per clinical course of the patient DVT prophylaxis: Subcutaneous Lovenox, on hold for possible GI bleed. he is on argatroban drip GI Prophylaxis: Ppi, Protonix twice a day Prognosis is guarded
[2020-07-12] MEDS: fentaNYL (PF) 1,000 MCG in SODIUM CHLORIDE 0.9% 80 ML IV SCH ×2 (02:55→10:08)
[2020-07-12] MEDS: ARTIFICIAL TEARS-HYPROMELLOSE DROPS 15 ML BTL BOTH EYES SCH ×6 (03:47→23:22)
[2020-07-12] MEDS: SODIUM CHLORIDE 0.9% 1,000 ML IV SCH (03:48)
[2020-07-12 04:51] LABS: HCT 28.3 % (39.0-53.0); HGB 9.4 gm/dL (13.0-17.5); MCH 28.6 pg (25.0-35.0); MCHC 33.3 g/dL (31.0-37.0); MCV 85.9 fL (80.0-100.0); Mean Platelet Volume 8.7; Platelet Count 136 k/uL (150-450); RBC 3.29 m/uL (4.30-5.90); RDW 14.4 % (11.5-15.5); WBC 17.1 k/uL (3.8-10.6)
[2020-07-12 05:16] LABS: Albumin 2.5 g/dL (3.5-5.0); Calcium 7.8 mg/dL (8.4-10.2); Potassium 4.3 mmol/L (3.5-5.1); Total Bilirubin 1.5 mg/dL (0.2-1.3); Total Protein 4.7 g/dL (6.3-8.2)
[2020-07-12] MEDS: INSULIN ASPART (NovoLOG) 100 UNIT/ML VIAL SQ SCH ×3 (05:50→18:15)
[2020-07-12 06:10] LABS: ABG Base Excess -2.7 mmol/L; ABG HCO3 23 mmol/L (21-25); ABG Oxygen Saturation 92.3 % (94-97); ABG PCO2 41 mmHg (35-45); ABG PH 7.35 (7.35-7.45); ABG PO2 69 mmHg (83-108); ABG TCO2 24 mmol/L (19-24); Allen Test Performed? Yes
[2020-07-12] MEDS: METOCLOPRAMIDE 5 MG/ML 2 ML VIAL IVP SCH ×4 (06:24→23:20)
[2020-07-12] MEDS: ARGATROBAN 50 MG in SODIUM CHLORIDE 0.9% 50 ML IV SCH (06:24)
[2020-07-12] MEDS: CALCIUM ACETATE 667 MG TAB PO SCH ×3 (06:24→17:54)
[2020-07-12 06:57] LABS: Band Neutrophils % 6 %; Eosinophils # (M) 0.17 k/uL (0-0.7); Lymphocytes # (M) 0.86 k/uL (1.0-4.8); Monocytes # (M) 0.34 k/uL (0-1.0); Neutrophils % (M) 86 %; Nucleated Red Blood Cells 0 /100 WBC (0-0); Total Cells Counted 100
--- NOTE | 2020-07-12 08:03 | P.PN ---
Subjective Progress Note Date: 07/12/20 Acute hypoxemic respiratory failure secondary to acute CoVID 19 pneumonia/pneum onitis The patient is seen today 07/12/2020 in follow-up in the intensive care unit. He remains intubated, sedated on the mechanical ventilator at assist control mode of a rate of 36, tidal volume 450, FiO2 40% and a PEEP of 10. Morning blood gases reveal pO2 of 69, pCO2 41, pH 7.35. He remains sedated on propofol at 60 mcg/kg/m, fentanyl at 1 mcg/kg/h, norepinephrine at 0.09 mcg/kg//min, the patient is currently on 0.9 saline at rate of 50 mL an hour. The patient has been off Nimbex since yesterday. He is continued on Argatroban at 0.5 mcg/kg/m. Being nourished with Nepro at 15 ML's per hour. He did receive hemodialysis yesterday with 1 L removed. Chest x-ray reveals mild bibasilar infiltrates. Sputum cultures positive for beta-hemolytic strep, group C. White count 18.1. Hemoglobin 10.6. Platelet count 141. D-dimer 19.69. Sodium 133. Potassium 4.7. Creatinine 4.14. LDH 1067, C-reactive protein 24. Remains on antibiotics in the form of ceftriaxone. Bronchodilators. Vitamin supplements. Dexamethasone. 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 The platelet count is stable and the platelet count is up to 136. On 07/12/2020, the patient is being seen for follow-up. The patient is a 59-year-old obese male patient with a BMI of 36.2 with known history of obstructive sleep apnea, presented with COVID 19 related pneumonia patient is currently intubated on a mechanical ventilator. Th e patient has been on a mechanical ventilator since 07/05/2020. 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 During the course of his treatment, the patient developed an acute kidney injury secondary to ATN secondary to "with 19 infection. Urine output was improving and the patient's urine output was in order of 20-25 mL an hour. Due to persistent hyperkalemia and worsening renal function, the patient was started on hemodialysis on 07/10/2020. The potassium level improved post-hemodialysis. The patient also had significant metabolic acidosis and the patient was given bicarb infusion. Electrolytes are being monitored. The patient got dialyzed yesterday and this was his second hemodialysis. Nephrology is on the case. He is currently on Decadron 6 mg IV every 24 hours. His chest x-ray is showing patchy by the pulmonary infiltrates in lower lobes, slightly worsening in the ch est x-ray findings on today's evaluation mainly in the peripheries and ET tube is in a good location. The patient remains on a mechanical ventilator assist control mode. He is on Nepro at 60 mL an hour. Objective - Vital Signs Vital signs: Vital Signs Temp 99.1 F 07/12/20 04:00 Pulse 84 07/12/20 07:00 Resp 36 H 07/12/20 07:00 BP 123/56 07/12/20 07:00 Pulse Ox 86 L 07/12/20 07:00 Intake & Output 07/11/20 07/12/20 07/12/20 18:59 06:59 18:59 Intake Total 5529.073 7493.048 194.479 Output Total 1420 450 35 Balance 479.623 873.048 159.479 Weight 119.8 kg Intake: IV 550 636 53 0.9 NS 20 Pressure Bag 30 36 3 Sodium Chloride 0.9% 1, 500 600 50 000 ml @ 50 mls/hr IV . Q20H [facility] Rx#:[id number] Intake, IV Titration 919.623 417.048 141.479 Amount Argatroban 50 mg In 23.86 50 Sodium Chloride 0.9% 50 ml @ 0.5 MCG/KG/MIN 3.597 mls/hr IV .[id number] [facility] Rx#:[id number] Cisatracurium 200 mg In 141.726 Sodium Chloride 0.9% 180 ml @ 1 MCG/KG/MIN 6.936 mls/hr IV .Q24H [facility] Rx#: [id number] Dextrose 5% in Water 1, 70 000 ml @ 70 mls/hr IV . [id number] [facility] with Sodium Bicarb (1 Meq/ml) 150 ml Rx#:[id number] Norepinephrine 8 mg In 116.413 141.479 Sodium Chloride 0.9% 250 ml @ 0.05 MCG/KG/MIN 11. 01 mls/hr IV .[id number] [facility] Rx#:[id number] cefTRIAXone 2 gm In 100 Sodium Chloride 0.9% 50 ml @ 100 mls/hr IVPB Q24HR [facility] Rx#:[id number] fentaNYL (PF) 1,000 mcg 100.000 167.048 In Sodium Chloride 0.9% 80 ml @ Per Protocol IV . Q0M [facility] Rx#:[id number] propofoL 1,000 mg In 367.624 200 Empty Bag 1 bag @ Titrate IV .Q0M [facility] Rx#: [id number] Tube Feeding 180 180 Other 250 90 Output: Urine 420 450 35 Hemodialysis 1000 Other: Voiding Method Indwelling Catheter Indwelling Catheter - Exam GENERAL EXAM: Intubated, sedated 59-year-old gentleman, on the mechanical ventilator, in no apparent distress. HEAD: Normocephalic. EYES: Sluggish reaction of pupils, equal size. NOSE: Clear with pink turbinates. THROAT: Oral endotracheal and gastric tube secured in place No erythema or exudates. NECK: No masses, no JVD. CHEST: No chest wall deformity. LUNGS: Equal air entry with crackles in the bilateral posterior bases CVS: S1 and S2 normal with no audible murmur, regular rhythm. ABDOMEN: No hepatosplenomegaly, normal bowel sounds, no guarding or rigidity. SPINE: No scoliosis or deformity SKIN: No rashes, some oozing from the scrotum CENTRAL NERVOUS SYSTEM: Sedated. No focal deficits, tone is normal in all 4 extremities. EXTREMITIES: Left upper extremity cool, dusky, pulseless. - Labs CBC & Chem 7: 07/12/20 04:00 07/12/20 04:00 Labs: Abnormal Lab Results - Last 24 Hours (Table) 07/09/20 07/11/20 07/11/20 Range/Units 04:47 04:25 04:25 WBC (3.8-10.6) k/uL RBC (4.30-5.90) m/uL Hgb (13.0-17.5) gm/dL Hct (39.0-53.0) % Plt Count (150-450) k/uL Neutrophils # (Manual) 15.50 H (1.3-7.7) k/uL Lymphocytes # (Manual) (1.0-4.8) k/uL Metamyelocytes # (Man) 0.54 H (0) k/uL Myelocytes # (Manual) 0.36 H (0) k/uL D-Dimer (<0.60) mg/L FEU ABG pH 7.14 L* (7.35-7.45) ABG pO2 (83-108) mmHg ABG O2 Saturation (94-97) % Sodium (137-145) mmol/L BUN (9-20) mg/dL Creatinine (0.66-1.25) mg/dL POC Glucose (mg/dL) (75-99) mg/dL Calcium (8.4-10.2) mg/dL Ferritin 847.2 H (22.0-322.0) ng/mL Total Bilirubin (0.2-1.3) mg/dL AST (17-59) U/L ALT (4-49) U/L Lactate Dehydrogenase (313-618) U/L Creatine Kinase (55-170) U/L C-Reactive Protein (<10.0) mg/L Total Protein (6.3-8.2) g/dL Albumin (3.5-5.0) g/dL 07/11/20 07/11/20 07/12/20 Range/Units 12:05 18:01 04:00 WBC 17.1 H (3.8-10.6) k/uL RBC 3.29 L (4.30-5.90) m/uL Hgb 9.4 L (13.0-17.5) gm/dL Hct 28.3 L (39.0-53.0) % Plt Count 136 L (150-450) k/uL Neutrophils # (Manual) 15.70 H (1.3-7.7) k/uL Lymphocytes # (Manual) 0.86 L (1.0-4.8) k/uL Metamyelocytes # (Man) (0) k/uL Myelocytes # (Manual) (0) k/uL D-Dimer (<0.60) mg/L FEU ABG pH (7.35-7.45) ABG pO2 (83-108) mmHg ABG O2 Saturation (94-97) % Sodium (137-145) mmol/L BUN (9-20) mg/dL Creatinine (0.66-1.25) mg/dL POC Glucose (mg/dL) 113 H 125 H (75-99) mg/dL Calcium (8.4-10.2) mg/dL Ferritin (22.0-322.0) ng/mL Total Bilirubin (0.2-1.3) mg/dL AST (17-59) U/L ALT (4-49) U/L Lactate Dehydrogenase (313-618) U/L Creatine Kinase (55-170) U/L C-Reactive Protein (<10.0) mg/L Total Protein (6.3-8.2) g/dL Albumin (3.5-5.0) g/dL 07/12/20 07/12/20 07/12/20 Range/Units 04:00 04:00 06:02 WBC (3.8-10.6) k/uL RBC (4.30-5.90) m/uL Hgb (13.0-17.5) gm/dL Hct (39.0-53.0) % Plt Count (150-450) k/uL Neutrophils # (Manual) (1.3-7.7) k/uL Lymphocytes # (Manual) (1.0-4.8) k/uL Metamyelocytes # (Man) (0) k/uL Myelocytes # (Manual) (0) k/uL D-Dimer 15.95 H (<0.60) mg/L FEU ABG pH (7.35-7.45) ABG pO2 69 L (83-108) mmHg ABG O2 Saturation 92.3 L (94-97) % Sodium 132 L (137-145) mmol/L BUN 97 H (9-20) mg/dL Creatinine 3.93 H (0.66-1.25) mg/dL POC Glucose (mg/dL) (75-99) mg/dL Calcium 7.8 L (8.4-10.2) mg/dL Ferritin (22.0-322.0) ng/mL Total Bilirubin 1.5 H (0.2-1.3) mg/dL AST 63 H (17-59) U/L ALT 103 H (4-49) U/L Lactate Dehydrogenase 1067 H (313-618) U/L Creatine Kinase 393 H (55-170) U/L C-Reactive Protein 24.0 H (<10.0) mg/L Total Protein 4.7 L (6.3-8.2) g/dL Albumin 2.5 L (3.5-5.0) g/dL Assessment and Plan Plan: 1 Acute hypoxemic respiratory failure secondary to acute CoVID 19 pneumonia/pneumonitis requiring mechanical ventilation on 07/05/2020. Received a tocilizumab and convalescent plasma and the patient is currently on Decadron 6 mg every 24 hours. Chest x-ray showing bilateral lower lobe pulmonary infiltrates peripheral distribution and orotracheal tube is in a good location. S x-ray findings are slightly worse on today's evaluation. Last hemodialysis was yesterday without a total of 1 L of fluid was removed. The patient is on s edation, no paralytics. 2 acute kidney injury secondary to Covid related ATN and the patient is currently on renal replacement therapy. The patient already received 2 sessions of hemodialysis for severe metabolic acidosis and persistent hyperkalemia. The metabolic acidosis improved and 3 severe metabolic acidosis and the patient is currently on a bicarb infusion. The patient also has hyperkalemia improved with hemodialysis. 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, platelets are improving. 11History of obstructive sleep apnea, maintained on CPAP Plan: Continue ventilator support, DrJosé Miguel respiratory rate down to 28, keep the FiO2 at 50% with a PEEP of 10. Continue sedation with propofol and fentanyl The patient is currently off bicarb drip and the patient is on oral bicarb Dialysis to be done today another session, yesterday sessions was done and a total of 1 L of fluid was removed urine output is in order of 30 mL an hour Stop the agratroban replace it with Eliquis 5 mg by mouth twice a day Ventilator settings were noted Chest x-ray and blood gas was noted and moderate is interval worsening Hemodialysis per nephrology Continue Decadron 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 Continue tube feedings and the patient is currently on Nepro Continue dexamethasone, vitamin supplements We'll continue to follow and make further recommendations based on his clinical status Critical care time >30 minutes Time with Patient: Greater than 30
[2020-07-12] MEDS: NOREPINEPHRINE 8 MG in SODIUM CHLORIDE 0.9% 250 ML IV SCH ×2 (08:25→10:08)
--- NOTE | 2020-07-12 09:24 | XR ---
EXAMINATION TYPE: XR chest 1V portable DATE OF EXAM: 07/12/2020 CLINICAL HISTORY: Difficulty breathing progress study. TECHNIQUE: Single AP portable upright view of the chest is obtained. COMPARISON: Chest x-ray from one day earlier and older studies. CT chest July 04, 2020 FINDINGS: Stable endotracheal and orogastric tubes. Persistent bilateral multifocal opacities greatest in the lower lungs. Cardiac silhouette size is sta ble and mildly enlarged. Osseous structures are intact. IMPRESSION: Bilateral multifocal opacities show interval progression from most recent x-ray consisten t with worsening covid-19 infection progression.
[2020-07-12 09:46] LABS: Ferritin 914.8 ng/mL (22.0-322.0)
[2020-07-12] MEDS: ALBUTEROL HFA INHALER INHALATION SCH ×3 (09:46→20:42)
--- NOTE | 2020-07-12 09:59 | P.PN ---
Subjective Progress Note Date: 07/12/20 Principal diagnosis: cold left upper extremity, acute kidney injury need for temporary hemodialysis catheter The patient is seen and examinedin the ICU. He remains sedated on mechanical ventilation. She is currently getting hemodialysis. He is status post temporary hemodialysis catheter placement via left femoral artery on 07/10/2020. No other acute changes through the night. Objective - Vital Signs Vital signs: Vital Signs Temp 98.9 F 07/12/20 08:00 Pulse 87 07/12/20 08:00 Resp 28 H 07/12/20 08:00 BP 121/53 07/12/20 08:00 Pulse Ox 87 L 07/12/20 08:00 Intake & Output 07/11/20 07/12/20 07/12/20 18:59 06:59 18:59 Intake Total 0322.474 5457.048 254.901 Output Total 1420 450 85 Balance 479.623 873.048 169.901 Weight 119.8 kg Intake: IV 550 636 106 0.9 NS 20 Pressure Bag 30 36 6 Sodium Chloride 0.9% 1, 500 600 100 000 ml @ 50 mls/hr IV . Q20H [facility] Rx#:[id number] Intake, IV Titration 919.623 417.048 148.901 Amount Argatroban 50 mg In 23.86 50 7.314 Sodium Chloride 0.9% 50 ml @ 0.5 MCG/KG/MIN 3.597 mls/hr IV .[id number] [facility] Rx#:[id number] Cisatracurium 200 mg In 141.726 Sodium Chloride 0.9% 180 ml @ 1 MCG/KG/MIN 6.936 mls/hr IV .Q24H [facility] Rx#: [id number] Dextrose 5% in Water 1, 70 000 ml @ 70 mls/hr IV . [id number] [facility] with Sodium Bicarb (1 Meq/ml) 150 ml Rx#:[id number] Norepinephrine 8 mg In 116.413 141.587 Sodium Chloride 0.9% 250 ml @ 0.05 MCG/KG/MIN 11. 01 mls/hr IV .[id number] [facility] Rx#:[id number] cefTRIAXone 2 gm In 100 Sodium Chloride 0.9% 50 ml @ 100 mls/hr IVPB Q24HR [facility] Rx#:[id number] fentaNYL (PF) 1,000 mcg 100.000 167.048 In Sodium Chloride 0.9% 80 ml @ Per Protocol IV . Q0M [facility] Rx#:[id number] propofoL 1,000 mg In 367.624 200 Empty Bag 1 bag @ Titrate IV .Q0M [facility] Rx#: [id number] Tube Feeding 180 180 Other 250 90 Output: Urine 420 450 85 Hemodialysis 1000 Other: Voiding Method Indwelling Catheter Indwelling Catheter - Exam General appearance: The patient is sedated on mechanical ventilation HET: Head is normocephalic and atraumatic. Neck: Supple without lymphadenopathy. Trachea midline. Abdomen: Soft, nontender, nondistended. Extremities: left groin with hemodialysis catheter intact without any signs of bleeding.bilateral lower extremity edema. Left extremity with decreased edema, first through fourth finger tips with demarcation. Good capillary refill, palpable radial pulse. Right palpable radial pulse, decreased capillary refill with Neurological: sedated on mechanical ventilation - Labs CBC & Chem 7: 07/12/20 04:00 07/12/20 04:00 Labs: Abnormal Lab Results - Last 24 Hours (Table) 07/09/20 07/11/20 07/11/20 Range/Units 04:47 04:25 12:05 WBC (3.8-10.6) k/uL RBC (4.30-5.90) m/uL Hgb (13.0-17.5) gm/dL Hct (39.0-53.0) % Plt Count (150-450) k/uL Neutrophils # (Manual) (1.3-7.7) k/uL Lymphocytes # (Manual) (1.0-4.8) k/uL D-Dimer (<0.60) mg/L FEU ABG pH 7.14 L* (7.35-7.45) ABG pO2 (83-108) mmHg ABG O2 Saturation (94-97) % Sodium (137-145) mmol/L BUN (9-20) mg/dL Creatinine (0.66-1.25) mg/dL POC Glucose (mg/dL) 113 H (75-99) mg/dL Calcium (8.4-10.2) mg/dL Ferritin 847.2 H (22.0-322.0) ng/mL Total Bilirubin (0.2-1.3) mg/dL AST (17-59) U/L ALT (4-49) U/L Lactate Dehydrogenase (313-618) U/L Creatine Kinase (55-170) U/L C-Reactive Protein (<10.0) mg/L Total Protein (6.3-8.2) g/dL Albumin (3.5-5.0) g/dL 07/11/20 07/12/20 07/12/20 Range/Units 18:01 04:00 04:00 WBC 17.1 H (3.8-10.6) k/uL RBC 3.29 L (4.30-5.90) m/uL Hgb 9.4 L (13.0-17.5) gm/dL Hct 28.3 L (39.0-53.0) % Plt Count 136 L (150-450) k/uL Neutrophils # (Manual) 15.70 H (1.3-7.7) k/uL Lymphocytes # (Manual) 0.86 L (1.0-4.8) k/uL D-Dimer 15.95 H (<0.60) mg/L FEU ABG pH (7.35-7.45) ABG pO2 (83-108) mmHg ABG O2 Saturation (94-97) % Sodium (137-145) mmol/L BUN (9-20) mg/dL Creatinine (0.66-1.25) mg/dL POC Glucose (mg/dL) 125 H (75-99) mg/dL Calcium (8.4-10.2) mg/dL Ferritin (22.0-322.0) ng/mL Total Bilirubin (0.2-1.3) mg/dL AST (17-59) U/L ALT (4-49) U/L Lactate Dehydrogenase (313-618) U/L Creatine Kinase (55-170) U/L C-Reactive Protein (<10.0) mg/L Total Protein (6.3-8.2) g/dL Albumin (3.5-5.0) g/dL 07/12/20 07/12/20 Range/Units 04:00 06:02 WBC (3.8-10.6) k/uL RBC (4.30-5.90) m/uL Hgb (13.0-17.5) gm/dL Hct (39.0-53.0) % Plt Count (150-450) k/uL Neutrophils # (Manual) (1.3-7.7) k/uL Lymphocytes # (Manual) (1.0-4.8) k/uL D-Dimer (<0.60) mg/L FEU ABG pH (7.35-7.45) ABG pO2 69 L (83-108) mmHg ABG O2 Saturation 92.3 L (94-97) % Sodium 132 L (137-145) mmol/L BUN 97 H (9-20) mg/dL Creatinine 3.93 H (0.66-1.25) mg/dL POC Glucose (mg/dL) (75-99) mg/dL Calcium 7.8 L (8.4-10.2) mg/dL Ferritin (22.0-322.0) ng/mL Total Bilirubin 1.5 H (0.2-1.3) mg/dL AST 63 H (17-59) U/L ALT 103 H (4-49) U/L Lactate Dehydrogenase 1067 H (313-618) U/L Creatine Kinase 393 H (55-170) U/L C-Reactive Protein 24.0 H (<10.0) mg/L Total Protein 4.7 L (6.3-8.2) g/dL Albumin 2.5 L (3.5-5.0) g/dL Assessment and Plan Assessment: 1. Status post left temporary femoral hemodialysis catheter placement 2. Acute kidney injury 3. Left hand ischemia, microvascular occlusions, biphasic radial and ulnar signals 4. Acute hypoxic respiratory failure from covid pna 5. Thrombocytopenia, likely heparin-induced 6. Hypertension 7. Obesity 8. Obstructive sleep apnea 9. Superficial venous thrombus Plan: 1. Continue symptomatic and supportive care 2. Continue anticoagulation if tolerated 3. Continue ICU management 4. Hemodialysis as ordered per nephrology Thank you for this consultation, we will be on standby The above dictated assessment and findings were discussed with Dr. Silva. The impression and plan of care have been directed as dictated.
[2020-07-12] MEDS: CHLORHEXIDINE GLUCONATE 15 ML CUP MUCOUS MEM SCH ×2 (10:08→20:00)
[2020-07-12] MEDS: ZINC SULFATE 220 MG CAP PO SCH (10:09)
[2020-07-12] MEDS: PANTOPRAZOLE 40 MG/10 ML VIAL IVP SCH ×2 (10:19→20:00)
[2020-07-12] MEDS: SERTRALINE 100 MG TAB PO SCH (10:20)
[2020-07-12] MEDS: DEXAMETHASONE SOD PHOSPHATE 10 MG/ML 1 ML VIAL IV SCH (10:20)
[2020-07-12] MEDS: ARIPiprazole 5 MG TAB PO SCH ×2 (10:20→20:00)
[2020-07-12] MEDS: SODIUM BICARBONATE TAB 650 MG TAB PO SCH ×3 (10:20→20:00)
[2020-07-12] MEDS: CHOLECALCIFEROL 25 MCG (1000 IU) TABLET PO SCH (10:21)
--- NOTE | 2020-07-12 10:25 | P.PN ---
Subjective Patient is seen in follow-up for acute kidney injury and hyperkalemia. Intubated. On 50% FiO2. Remains on Levophed. Urine output improved to 30-35 mL an hour. Receiving tube feeding. Tolerating dialysis well. Acidosis improved. Vital signs are stable. On Levophed. General: No JVD. HEENT: Intubated. LUNGS: Breath sounds decreased. HEART: Rate and Rhythm are regular. ABDOMEN: Soft, no distention. EXTREMITITES: 1+ edema. Objective - Vital Signs Vital signs: Vital Signs Temp 98.9 F 07/12/20 08:00 Pulse 87 07/12/20 08:00 Resp 28 H 07/12/20 08:00 BP 121/53 07/12/20 08:00 Pulse Ox 87 L 07/12/20 08:00 Intake & Output 07/11/20 07/12/20 07/12/20 18:59 06:59 18:59 Intake Total 3121.911 0680.048 421.567 Output Total 1420 450 120 Balance 479.623 873.048 301.567 Weight 119.8 kg Intake: IV 550 636 159 0.9 NS 20 Pressure Bag 30 36 9 Sodium Chloride 0.9% 1, 500 600 150 000 ml @ 50 mls/hr IV . Q20H [facility] Rx#:[id number] Intake, IV Titration 919.623 417.048 262.567 Amount Argatroban 50 mg In 23.86 50 7.314 Sodium Chloride 0.9% 50 ml @ 0.5 MCG/KG/MIN 3.597 mls/hr IV .[id number] [facility] Rx#:[id number] Cisatracurium 200 mg In 141.726 Sodium Chloride 0.9% 180 ml @ 1 MCG/KG/MIN 6.936 mls/hr IV .Q24H [facility] Rx#: [id number] Dextrose 5% in Water 1, 70 000 ml @ 70 mls/hr IV . [id number] [facility] with Sodium Bicarb (1 Meq/ml) 150 ml Rx#:[id number] Norepinephrine 8 mg In 116.413 171.828 Sodium Chloride 0.9% 250 ml @ 0.05 MCG/KG/MIN 11. 01 mls/hr IV .[id number] [facility] Rx#:[id number] cefTRIAXone 2 gm In 100 Sodium Chloride 0.9% 50 ml @ 100 mls/hr IVPB Q24HR [facility] Rx#:[id number] fentaNYL (PF) 1,000 mcg 100.000 167.048 83.425 In Sodium Chloride 0.9% 80 ml @ Per Protocol IV . Q0M [facility] Rx#:[id number] propofoL 1,000 mg In 367.624 200 Empty Bag 1 bag @ Titrate IV .Q0M [facility] Rx#: [id number] Tube Feeding 180 180 Other 250 90 Output: Urine 420 450 120 Hemodialysis 1000 Other: Voiding Method Indwelling Catheter Indwelling Catheter Indwelling Catheter - Labs CBC & Chem 7: 07/12/20 04:00 07/12/20 04:00 Labs: Abnormal Lab Results - Last 24 Hours (Table) 07/09/20 07/11/20 07/11/20 Range/Units 04:47 12:05 18:01 WBC (3.8-10.6) k/uL RBC (4.30-5.90) m/uL Hgb (13.0-17.5) gm/dL Hct (39.0-53.0) % Plt Count (150-450) k/uL Neutrophils # (Manual) (1.3-7.7) k/uL Lymphocytes # (Manual) (1.0-4.8) k/uL D-Dimer (<0.60) mg/L FEU ABG pH 7.14 L* (7.35-7.45) ABG pO2 (83-108) mmHg ABG O2 Saturation (94-97) % Sodium (137-145) mmol/L BUN (9-20) mg/dL Creatinine (0.66-1.25) mg/dL POC Glucose (mg/dL) 113 H 125 H (75-99) mg/dL Calcium (8.4-10.2) mg/dL Ferritin (22.0-322.0) ng/mL Total Bilirubin (0.2-1.3) mg/dL AST (17-59) U/L ALT (4-49) U/L Lactate Dehydrogenase (313-618) U/L Creatine Kinase (55-170) U/L C-Reactive Protein (<10.0) mg/L Total Protein (6.3-8.2) g/dL Albumin (3.5-5.0) g/dL 07/12/20 07/12/20 07/12/20 Range/Units 04:00 04:00 04:00 WBC 17.1 H (3.8-10.6) k/uL RBC 3.29 L (4.30-5.90) m/uL Hgb 9.4 L (13.0-17.5) gm/dL Hct 28.3 L (39.0-53.0) % Plt Count 136 L (150-450) k/uL Neutrophils # (Manual) 15.70 H (1.3-7.7) k/uL Lymphocytes # (Manual) 0.86 L (1.0-4.8) k/uL D-Dimer 15.95 H (<0.60) mg/L FEU ABG pH (7.35-7.45) ABG pO2 (83-108) mmHg ABG O2 Saturation (94-97) % Sodium 132 L (137-145) mmol/L BUN 97 H (9-20) mg/dL Creatinine 3.93 H (0.66-1.25) mg/dL POC Glucose (mg/dL) (75-99) mg/dL Calcium 7.8 L (8.4-10.2) mg/dL Ferritin 914.8 H (22.0-322.0) ng/mL Total Bilirubin 1.5 H (0.2-1.3) mg/dL AST 63 H (17-59) U/L ALT 103 H (4-49) U/L Lactate Dehydrogenase 1067 H (313-618) U/L Creatine Kinase 393 H (55-170) U/L C-Reactive Protein 24.0 H (<10.0) mg/L Total Protein 4.7 L (6.3-8.2) g/dL Albumin 2.5 L (3.5-5.0) g/dL 07/12/20 Range/Units 06:02 WBC (3.8-10.6) k/uL RBC (4.30-5.90) m/uL Hgb (13.0-17.5) gm/dL Hct (39.0-53.0) % Plt Count (150-450) k/uL Neutrophils # (Manual) (1.3-7.7) k/uL Lymphocytes # (Manual) (1.0-4.8) k/uL D-Dimer (<0.60) mg/L FEU ABG pH (7.35-7.45) ABG pO2 69 L (83-108) mmHg ABG O2 Saturation 92.3 L (94-97) % Sodium (137-145) mmol/L BUN (9-20) mg/dL Creatinine (0.66-1.25) mg/dL POC Glucose (mg/dL) (75-99) mg/dL Calcium (8.4-10.2) mg/dL Ferritin (22.0-322.0) ng/mL Total Bilirubin (0.2-1.3) mg/dL AST (17-59) U/L ALT (4-49) U/L Lactate Dehydrogenase (313-618) U/L Creatine Kinase (55-170) U/L C-Reactive Protein (<10.0) mg/L Total Protein (6.3-8.2) g/dL Albumin (3.5-5.0) g/dL Assessment and Plan Plan: Assessment: 1. Acute kidney injury secondary to ATN secondary to covid-19 infection. Urine output 35-40 mL an hour. Due to persistent hyperkalemia and worsening renal function, started on hemodialysis July 10. 2. Hyperkalemia secondary to acute kidney injury and metabolic acidosis. Improved postdialysis. 3. Metabolic acidosis secondary to acute kidney injury maintained on oral bicarbonate. Expect further improvement postdialysis. Better. 4. Septic shock secondary to covid-19 pneumonia. Maintained on Levophed. 5. Acute hypoxic respiratory failure secondary to pneumonia. 6. Hyperphosphatemia secondary to acute kidney injury. Maintained on PhosLo. Plan: Currently seen while undergoing hemodialysis. Plan to hold dialysis tomorrow. Maintain tube feeding. Hep-Lock IV fluids. Wean FiO2 and vasopressors. Continue to monitor renal function and urine output. Repeat phosphorus level.
--- NOTE | 2020-07-12 10:31 | P.PN ---
Subjective This is a pleasant 59-year-old male currently being treated for Covid 19 and sepsis. He is maintained on mechanical ventilation. Blood pressure 121/53 heart rate 87 afebrile with low oxygen saturation at 87%. Laboratory data reviewed, WBC 17.1, hemoglobin 9.4, platelets 136, d-dimer 15.9, sodium 132, potassium 4.3, creatinine 3.93. Currently maintained on levophed. Echocardiogram obtained on this admission revealed preserved LV systolic function with EF 55-60%. 24-hour urine output is 1870 mL's. Chest x-ray reveals bilateral multifocal opacity is with interval progression from recent study. GENERAL: No acute distress. ASSESSMENT Acute hypoxic respiratory failure Covid 19 Acute kidney injury Troponin leak Heparin induced thrombocytopenia Left hand ischemia Obesity, BMI 35 Hypertension PLAN Platelets are improving, discussed with pulmonary care team and recommend initiating oral anti-coagulation. Ongoing treatment of COVID per pulmonary care team. We will follow along as needed, please call with further questions or concerns. Nurse Practitioner note has been reviewed, I agree with a documented findings and plan of care. Patient was seen and examined. Objective - Vital Signs Vital signs: Vital Signs Temp 98.9 F 07/12/20 08:00 Pulse 87 07/12/20 08:00 Resp 28 H 07/12/20 08:00 BP 121/53 07/12/20 08:00 Pulse Ox 87 L 07/12/20 08:00 Intake & Output 07/11/20 07/12/20 07/12/20 18:59 06:59 18:59 Intake Total 9392.128 3851.048 421.567 Output Total 1420 450 120 Balance 479.623 873.048 301.567 Weight 119.8 kg Intake: IV 550 636 159 0.9 NS 20 Pressure Bag 30 36 9 Sodium Chloride 0.9% 1, 500 600 150 000 ml @ 50 mls/hr IV . Q20H PRAFUL Rx#:[id number] Intake, IV Titration 919.623 417.048 262.567 Amount Argatroban 50 mg In 23.86 50 7.314 Sodium Chloride 0.9% 50 ml @ 0.5 MCG/KG/MIN 3.597 mls/hr IV .[id number] PRAFUL Rx#:[id number] Cisatracurium 200 mg In 141.726 Sodium Chloride 0.9% 180 ml @ 1 MCG/KG/MIN 6.936 mls/hr IV .Q24H PRAFUL Rx#: [id number] Dextrose 5% in Water 1, 70 000 ml @ 70 mls/hr IV . [id number] PRAFUL with Sodium Bicarb (1 Meq/ml) 150 ml Rx#:[id number] Norepinephrine 8 mg In 116.413 171.828 Sodium Chloride 0.9% 250 ml @ 0.05 MCG/KG/MIN 11. 01 mls/hr IV .[id number] PRAFUL Rx#:[id number] cefTRIAXone 2 gm In 100 Sodium Chloride 0.9% 50 ml @ 100 mls/hr IVPB Q24HR PRAFUL Rx#:[id number] fentaNYL (PF) 1,000 mcg 100.000 167.048 83.425 In Sodium Chloride 0.9% 80 ml @ Per Protocol IV . Q0M PRAFUL Rx#:[id number] propofoL 1,000 mg In 367.624 200 Empty Bag 1 bag @ Titrate IV .Q0M PRAFUL Rx#: [id number] Tube Feeding 180 180 Other 250 90 Output: Urine 420 450 120 Hemodialysis 1000 Other: Voiding Method Indwelling Catheter Indwelling Catheter Indwelling Catheter - Labs CBC & Chem 7: 07/12/20 04:00 07/12/20 04:00 Labs: Abnormal Lab Results - Last 24 Hours (Table) 07/09/20 07/11/20 07/11/20 Range/Units 04:47 12:05 18:01 WBC (3.8-10.6) k/uL RBC (4.30-5.90) m/uL Hgb (13.0-17.5) gm/dL Hct (39.0-53.0) % Plt Count (150-450) k/uL Neutrophils # (Manual) (1.3-7.7) k/uL Lymphocytes # (Manual) (1.0-4.8) k/uL D-Dimer (<0.60) mg/L FEU ABG pH 7.14 L* (7.35-7.45) ABG pO2 (83-108) mmHg ABG O2 Saturation (94-97) % Sodium (137-145) mmol/L BUN (9-20) mg/dL Creatinine (0.66-1.25) mg/dL POC Glucose (mg/dL) 113 H 125 H (75-99) mg/dL Calcium (8.4-10.2) mg/dL Ferritin (22.0-322.0) ng/mL Total Bilirubin (0.2-1.3) mg/dL AST (17-59) U/L ALT (4-49) U/L Lactate Dehydrogenase (313-618) U/L Creatine Kinase (55-170) U/L C-Reactive Protein (<10.0) mg/L Total Protein (6.3-8.2) g/dL Albumin (3.5-5.0) g/dL 07/12/20 07/12/20 07/12/20 Range/Units 04:00 04:00 04:00 WBC 17.1 H (3.8-10.6) k/uL RBC 3.29 L (4.30-5.90) m/uL Hgb 9.4 L (13.0-17.5) gm/dL Hct 28.3 L (39.0-53.0) % Plt Count 136 L (150-450) k/uL Neutrophils # (Manual) 15.70 H (1.3-7.7) k/uL Lymphocytes # (Manual) 0.86 L (1.0-4.8) k/uL D-Dimer 15.95 H (<0.60) mg/L FEU ABG pH (7.35-7.45) ABG pO2 (83-108) mmHg ABG O2 Saturation (94-97) % Sodium 132 L (137-145) mmol/L BUN 97 H (9-20) mg/dL Creatinine 3.93 H (0.66-1.25) mg/dL POC Glucose (mg/dL) (75-99) mg/dL Calcium 7.8 L (8.4-10.2) mg/dL Ferritin 914.8 H (22.0-322.0) ng/mL Total Bilirubin 1.5 H (0.2-1.3) mg/dL AST 63 H (17-59) U/L ALT 103 H (4-49) U/L Lactate Dehydrogenase 1067 H (313-618) U/L Creatine Kinase 393 H (55-170) U/L C-Reactive Protein 24.0 H (<10.0) mg/L Total Protein 4.7 L (6.3-8.2) g/dL Albumin 2.5 L (3.5-5.0) g/dL 07/12/20 Range/Units 06:02 WBC (3.8-10.6) k/uL RBC (4.30-5.90) m/uL Hgb (13.0-17.5) gm/dL Hct (39.0-53.0) % Plt Count (150-450) k/uL Neutrophils # (Manual) (1.3-7.7) k/uL Lymphocytes # (Manual) (1.0-4.8) k/uL D-Dimer (<0.60) mg/L FEU ABG pH (7.35-7.45) ABG pO2 69 L (83-108) mmHg ABG O2 Saturation 92.3 L (94-97) % Sodium (137-145) mmol/L BUN (9-20) mg/dL Creatinine (0.66-1.25) mg/dL POC Glucose (mg/dL) (75-99) mg/dL Calcium (8.4-10.2) mg/dL Ferritin (22.0-322.0) ng/mL Total Bilirubin (0.2-1.3) mg/dL AST (17-59) U/L ALT (4-49) U/L Lactate Dehydrogenase (313-618) U/L Creatine Kinase (55-170) U/L C-Reactive Protein (<10.0) mg/L Total Protein (6.3-8.2) g/dL Albumin (3.5-5.0) g/dL
[2020-07-12 12:02] LABS: Glucose,Whole Blood 99 mg/dL (75-99)
[2020-07-12 12:15] LABS: Glucose,Whole Blood 104 mg/dL (75-99)
[2020-07-12] MEDS: CISATRACURIUM 200 MG in SODIUM CHLORIDE 0.9% 180 ML IV SCH (12:51)
[2020-07-12 17:56] LABS: Glucose,Whole Blood 120 mg/dL (75-99)
--- NOTE | 2020-07-12 18:02 | PN ---
PROGRESS NOTE DATE OF SERVICE: 07/12/2020 REASON FOR FOLLOWUP: Pneumonia. INTERVAL HISTORY: The patient remains intubated on the vent. The patient is currently hemodynamically stable, not on any pressor support. FiO2 is 50%. No significant purulent secretions through the ET or diarrhea reported. He has been tolerating his tube feeds. Undergoing dialysis. PHYSICAL EXAMINATION: Blood pressure 110/52 with a pulse of 79, temperature 98.7. He is 88% on 50% FiO2. General description is a middle-aged male intubated on the vent. RESPIRATORY SYSTEM: Unlabored breathing with decreased intensity of breath sounds. No wheeze. HEART: S1, S2. Regular rate and rhythm. ABDOMEN: Soft. No tenderness. LABS: Hemoglobin 9.4, white count 17.1. D-dimer is 15.95. Creatinine 3.93. Liver enzymes remain elevated. DIAGNOSTIC IMPRESSION AND PLAN: Patient with acute respiratory failure which is multifactorial in this patient who did have COVID-19 pneumonia with subsequent evidence of respiratory as well as renal failure. The patient is currently on dexamethasone, Eliquis, zinc and ascorbic acid. Antibiotic discontinued. Will check a procalcitonin level. If it remains normal, will hold off on any further antibiotic therapy. Continue with supportive care. MMODL / IJN: [id number] /
[2020-07-12] MEDS: fentaNYL (PF). 1,000 MCG in SODIUM CHLORIDE 0.9% 80 ML IV SCH (19:10)
[2020-07-12] MEDS: APIXABAN 5 MG TAB PO SCH (20:00)
[2020-07-12 23:14] LABS: Glucose,Whole Blood 95 mg/dL (75-99)
[2020-07-13] MEDS: INSULIN ASPART (NovoLOG) 100 UNIT/ML VIAL SQ SCH ×5 (00:25→23:28)
[2020-07-13] MEDS: fentaNYL (PF). 1,000 MCG in SODIUM CHLORIDE 0.9% 80 ML IV SCH ×3 (02:38→17:12)
[2020-07-13] MEDS: ARTIFICIAL TEARS-HYPROMELLOSE DROPS 15 ML BTL BOTH EYES SCH ×6 (03:36→23:28)
[2020-07-13 04:10] LABS: Basophils % (A) 0 %; Eosinophils # (A) 0.2 k/uL (0-0.7); Eosinophils % (A) 1 %; HGB 9.2 gm/dL (13.0-17.5); Lymphocytes # (A) 0.6 k/uL (1.0-4.8); Lymphocytes % (A) 4 %; MCHC 35.4 g/dL (31.0-37.0); MCV 84.9 fL (80.0-100.0); Mean Platelet Volume 8.4; Monocytes # (A) 0.3 k/uL (0-1.0); Monocytes % (A) 2 %; Neutrophils # (A) 12.6 k/uL (1.3-7.7); Neutrophils % (A) 92 %; Platelet Count 112 k/uL (150-450); RBC 3.06 m/uL (4.30-5.90); RDW 14.4 % (11.5-15.5); WBC 13.7 k/uL (3.8-10.6)
[2020-07-13 04:27] LABS: ABG Base Excess 1.7 mmol/L; ABG HCO3 27 mmol/L (21-25); ABG Oxygen Saturation 90.3 % (94-97); ABG PCO2 47 mmHg (35-45); ABG PH 7.37 (7.35-7.45); ABG PO2 63 mmHg (83-108); ABG TCO2 28 mmol/L (19-24)
[2020-07-13 04:32] LABS: Albumin 2.4 g/dL (3.5-5.0); C Reactive Protein 70.8 mg/L (<10.0); Calcium 8.3 mg/dL (8.4-10.2); Potassium 4.4 mmol/L (3.5-5.1); Total Bilirubin 1.9 mg/dL (0.2-1.3); Total Protein 4.6 g/dL (6.3-8.2)
[2020-07-13] MEDS: METOCLOPRAMIDE 5 MG/ML 2 ML VIAL IVP SCH ×4 (05:34→23:28)
[2020-07-13] MEDS: CALCIUM ACETATE 667 MG TAB PO SCH ×3 (05:34→17:08)
[2020-07-13] MEDS: NOREPINEPHRINE 8 MG in SODIUM CHLORIDE 0.9% 250 ML IV SCH (06:43)
--- NOTE | 2020-07-13 07:03 | P.PN ---
Subjective Progress Note Date: 07/13/20 Acute hypoxemic respiratory failure secondary to acute CoVID 19 pneumonia/pneum onitis The patient is seen today 07/12/2020 in follow-up in the intensive care unit. He remains intubated, sedated on the mechanical ventilator at assist control mode of a rate of 36, tidal volume 450, FiO2 40% and a PEEP of 10. Morning blood gases reveal pO2 of 69, pCO2 41, pH 7.35. He remains sedated on propofol at 60 mcg/kg/m, fentanyl at 1 mcg/kg/h, norepinephrine at 0.09 mcg/kg//min, the patient is currently on 0.9 saline at rate of 50 mL an hour. The patient has been off Nimbex since yesterday. He is continued on Argatroban at 0.5 mcg/kg/m. Being nourished with Nepro at 15 ML's per hour. He did receive hemodialysis yesterday with 1 L removed. Chest x-ray reveals mild bibasilar infiltrates. Sputum cultures positive for beta-hemolytic strep, group C. White count 18.1. Hemoglobin 10.6. Platelet count 141. D-dimer 19.69. Sodium 133. Potassium 4.7. Creatinine 4.14. LDH 1067, C-reactive protein 24. Remains on antibiotics in the form of ceftriaxone. Bronchodilators. Vitamin supplements. Dexamethasone. 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 The platelet count is stable and the platelet count is up to 136. On 07/12/2020, the patient is being seen for follow-up. The patient is a 59-year-old obese male patient with a BMI of 36.2 with known history of obstructive sleep apnea, presented with COVID 19 related pneumonia patient is currently intubated on a mechanical ventilator. Th e patient has been on a mechanical ventilator since 07/05/2020. 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 During the course of his treatment, the patient developed an acute kidney injury secondary to ATN secondary to "with 19 infection. Urine output was improving and the patient's urine output was in order of 20-25 mL an hour. Due to persistent hyperkalemia and worsening renal function, the patient was started on hemodialysis on 07/10/2020. The potassium level improved post-hemodialysis. The patient also had significant metabolic acidosis and the patient was given bicarb infusion. Electrolytes are being monitored. The patient got dialyzed yesterday and this was his second hemodialysis. Nephrology is on the case. He is currently on Decadron 6 mg IV every 24 hours. His chest x-ray is showing patchy by the pulmonary infiltrates in lower lobes, slightly worsening in the ch est x-ray findings on today's evaluation mainly in the peripheries and ET tube is in a good location. The patient remains on a mechanical ventilator assist control mode. He is on Nepro at 60 mL an hour. 07/13/2020, I'm seeing this patient for a follow-up. This is a case of a 59-year-old male patient with Covid 19 related pneumonia and acute kidney injury currently on hemodialysis. Worn-out, the patient is sedated and this morning the patient is currently on propofol running at 6 60 mcg/kg per minute and fentanyl is running at 1 mcg/kg/h and this is the same sedation it was being provided yesterday. The patient is on no paralytics for now. The patient is on a mechanical ventilator, on this morning's evaluation, he is on assist-control at the rate of 28 with a tidal volume of 450 and FiO2 of 50% and PEEP is 10. Blood gases from today showing a pH of 7.37 with a pCO2 of 47 and pO2 of 63. Chest x-ray from today is showing diffuse bilateral pulmonary infiltrates more so in the lower lobes bilaterally. ET tube is in a good location. Comparing this chest x-ray from yesterday, there is no major interval change in the findings are essentially stable. His peak airway pressures 28. His static pressures 24. The patient is is still on Decadron 6 mg IV every 24 hours. D- dimer today's at 13.3, his LDH level is at 1021 and the CRP is at 4.6. Note that his inflammatory markers essentially compatible to yesterday. His echoes at 13.7 with a hemoglobin of 9.2. Platelet count is 112. I took the patient off Agratoban and he was also placed on Eliquis at a dose of 5 mg by mouth twice a day. Noted the patient also is an acute kidney injury. The patient underwent dialysis and the spot he has taken 3 sessions of hemodialysis. He is producing urine output in the order of 20-30 mL an hour. His last session of hemodialysis was yesterday. In terms of his electrolytes, his BUN is at 80 with a creatinine of 3.5 and a sodium of 132 with a potassium of 4.4. He is currently on enteral feeding for dizziness support and is currently on Nepro at the rate of 50 mL an hour. He is currently off Rocephin. He is afebrile. He is requiring low-dose pressors were norepinephrine 30 dose of 0.03 mcg/kg per minute. Otherwise, no other significant events. He is afebrile. Sedation holiday was not done yesterday. IV fluids are running at 0.9 at the rate of 50 mL an hour. Objective - Vital Signs Vital signs: Vital Signs Temp 99.0 F 07/13/20 04:00 Pulse 87 07/13/20 06:00 Resp 28 H 07/13/20 06:00 BP 125/56 07/13/20 06:00 Pulse Ox 87 L 07/13/20 06:00 Intake & Output 07/12/20 07/12/20 07/13/20 06:59 18:59 06:59 Intake Total 9340.489 3061.859 1184.159 Output Total 450 1425 405 Balance 973.048 22.859 779.159 Weight 119.8 kg 119.8 kg 122.1 kg Intake: IV 636 689 583 Pressure Bag 36 39 33 Sodium Chloride 0.9% 1, 600 650 550 000 ml @ 50 mls/hr IV . Q20H PR[facility]UL Rx#:[id number] Intake, IV Titration 517.048 463.859 346.159 Amount Argatroban 50 mg In 50 7.314 Sodium Chloride 0.9% 50 ml @ 0.5 MCG/KG/MIN 3.597 mls/hr IV .[id number] PRAFUL Rx#:[id number] Norepinephrine 8 mg In 273.120 156.708 Sodium Chloride 0.9% 250 ml @ 0.05 MCG/KG/MIN 11. 01 mls/hr IV .[id number] PRAFUL Rx#:[id number] fentaNYL (PF) 1,000 mcg 167.048 83.425 In Sodium Chloride 0.9% 80 ml @ Per Protocol IV . Q0M PR[facility]UL Rx#:[id number] fentaNYL (PF). 1,000 mcg 89.451 In Sodium Chloride 0.9% 80 ml @ Per Protocol IV . Q0M PRAFUL Rx#:[id number] propofoL 1,000 mg In 300 100 100 Empty Bag 1 bag @ Titrate IV .Q0M PRAFUL Rx#: [id number] Tube Feeding 180 165 165 Other 90 130 90 Output: Urine 450 425 405 Hemodialysis 1000 Other: Voiding Method Indwelling Catheter Indwelling Catheter Indwelling Catheter - Exam GENERAL EXAM: Intubated, sedated 59-year-old gentleman, on the mechanical ventilator, in no apparent distress. HEAD: Normocephalic. EYES: Sluggish reaction of pupils, equal size. NOSE: Clear with pink turbinates. THROAT: Oral endotracheal and gastric tube secured in place No erythema or exudates. NECK: No masses, no JVD. CHEST: No chest wall deformity. LUNGS: Equal air entry with crackles in the bilateral posterior bases CVS: S1 and S2 normal with no audible murmur, regular rhythm. ABDOMEN: No hepatosplenomegaly, normal bowel sounds, no guarding or rigidity. SPINE: No scoliosis or deformity SKIN: No rashes, some oozing from the scrotum CENTRAL NERVOUS SYSTEM: Sedated. No focal deficits, tone is normal in all 4 extremities. EXTREMITIES: Left upper extremity cool, dusky, pulseless. - Labs CBC & Chem 7: 07/13/20 03:50 07/13/20 03:50 Labs: Abnormal Lab Results - Last 24 Hours (Table) 07/12/20 07/12/20 07/12/20 Range/Units 04:00 04:00 12:10 WBC (3.8-10.6) k/uL RBC (4.30-5.90) m/uL Hgb (13.0-17.5) gm/dL Hct (39.0-53.0) % Plt Count (150-450) k/uL Neutrophils # (1.3-7.7) k/uL Neutrophils # (Manual) 15.70 H (1.3-7.7) k/uL Lymphocytes # (1.0-4.8) k/uL Lymphocytes # (Manual) 0.86 L (1.0-4.8) k/uL D-Dimer (<0.60) mg/L FEU ABG pCO2 (35-45) mmHg ABG pO2 (83-108) mmHg ABG HCO3 (21-25) mmol/L ABG Total CO2 (19-24) mmol/L ABG O2 Saturation (94-97) % Sodium (137-145) mmol/L BUN (9-20) mg/dL Creatinine (0.66-1.25) mg/dL POC Glucose (mg/dL) 104 H (75-99) mg/dL Calcium (8.4-10.2) mg/dL Phosphorus (2.5-4.5) mg/dL Ferritin 914.8 H (22.0-322.0) ng/mL Total Bilirubin (0.2-1.3) mg/dL AST (17-59) U/L ALT (4-49) U/L Lactate Dehydrogenase (313-618) U/L Creatine Kinase (55-170) U/L C-Reactive Protein (<10.0) mg/L Total Protein (6.3-8.2) g/dL Albumin (3.5-5.0) g/dL 07/12/20 07/12/20 07/13/20 Range/Units 12:28 17:55 03:50 WBC (3.8-10.6) k/uL RBC (4.30-5.90) m/uL Hgb (13.0-17.5) gm/dL Hct (39.0-53.0) % Plt Count (150-450) k/uL Neutrophils # (1.3-7.7) k/uL Neutrophils # (Manual) (1.3-7.7) k/uL Lymphocytes # (1.0-4.8) k/uL Lymphocytes # (Manual) (1.0-4.8) k/uL D-Dimer (<0.60) mg/L FEU ABG pCO2 (35-45) mmHg ABG pO2 (83-108) mmHg ABG HCO3 (21-25) mmol/L ABG Total CO2 (19-24) mmol/L ABG O2 Saturation (94-97) % Sodium 132 L (137-145) mmol/L BUN 80 H (9-20) mg/dL Creatinine 3.57 H (0.66-1.25) mg/dL POC Glucose (mg/dL) 120 H (75-99) mg/dL Calcium 8.3 L (8.4-10.2) mg/dL Phosphorus 4.6 H 8.0 H (2.5-4.5) mg/dL Ferritin (22.0-322.0) ng/mL Total Bilirubin 1.9 H (0.2-1.3) mg/dL AST 71 H (17-59) U/L ALT 93 H (4-49) U/L Lactate Dehydrogenase 1021 H (313-618) U/L Creatine Kinase 406 H (55-170) U/L C-Reactive Protein 70.8 H (<10.0) mg/L Total Protein 4.6 L (6.3-8.2) g/dL Albumin 2.4 L (3.5-5.0) g/dL 07/13/20 07/13/20 07/13/20 Range/Units 03:50 03:50 04:22 WBC 13.7 H (3.8-10.6) k/uL RBC 3.06 L (4.30-5.90) m/uL Hgb 9.2 L (13.0-17.5) gm/dL Hct 26.0 L (39.0-53.0) % Plt Count 112 L (150-450) k/uL Neutrophils # 12.6 H (1.3-7.7) k/uL Neutrophils # (Manual) (1.3-7.7) k/uL Lymphocytes # 0.6 L (1.0-4.8) k/uL Lymphocytes # (Manual) (1.0-4.8) k/uL D-Dimer 13.34 H (<0.60) mg/L FEU ABG pCO2 47 H (35-45) mmHg ABG pO2 63 L (83-108) mmHg ABG HCO3 27 H (21-25) mmol/L ABG Total CO2 28 H (19-24) mmol/L ABG O2 Saturation 90.3 L (94-97) % Sodium (137-145) mmol/L BUN (9-20) mg/dL Creatinine (0.66-1.25) mg/dL POC Glucose (mg/dL) (75-99) mg/dL Calcium (8.4-10.2) mg/dL Phosphorus (2.5-4.5) mg/dL Ferritin (22.0-322.0) ng/mL Total Bilirubin (0.2-1.3) mg/dL AST (17-59) U/L ALT (4-49) U/L Lactate Dehydrogenase (313-618) U/L Creatine Kinase (55-170) U/L C-Reactive Protein (<10.0) mg/L Total Protein (6.3-8.2) g/dL Albumin (3.5-5.0) g/dL Assessment and Plan Plan: 1 Acute hypoxemic respiratory failure secondary to acute CoVID 19 pneumonia/pneumonitis requiring mechanical ventilation on 07/05/2020. Received a tocilizumab and convalescent plasma and the patient is currently on Decadron 6 mg every 24 hours. Chest x-ray showing bilateral lower lobe pulmonary infiltrates peripheral distribution and orotracheal tube is in a good location. Last hemodialysis was yesterday without a total of 1 L of fluid was removed. The patient is on sedation, no paralytics. Meanwhile, the patient remains intubated on a mechanical ventilator. He remains off paralytics PA chest x-ray was noted. Blood has was noted. Not a whole lot of room for improvement. Airway pressures including peak and static are not much elevated. I may consider weaning the PEEP off as long as his saturation remains above 90%. 2 acute kidney injury secondary to Covid related ATN and the patient is cu rrently on renal replacement therapy. The patient already received 3 sessions of hemodialysis for severe metabolic acidosis and persistent hyperkalemia. The metabolic acidosis improved and the patient's serum bicarbonate was up to 25 3 severe metabolic acidosis , recovered . The patient also has hyperkalemia improved with hemodialysis. 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, platelets are improving. 11History of obstructive sleep apnea, maintained on CPAP Plan: Continue ventilator support, respiratory rate down to 28, keep the FiO2 at 50% and if the PEEP at 10 Continue sedation with propofol and fentanyl Give the patient sedation holiday and has underlying mental status The patient is currently off bicarb drip and the patient is on oral bicarb Dialysis to be done today another session, yesterday sessions was done and a total of 1 L of fluid was removed urine output is in order of 30 mL an hour Eliquis 5 mg by mouth twice a day, monitor platelet counts Ventilator settings were noted Chest x-ray and blood gas was noted and moderate is interval worsening Hemodialysis per nephrology Continue Decadron 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 Continue tube feedings and the patient is currently on Nepro Continue dexamethasone, vitamin supplements We'll continue to follow and make further recommendations based on his clinical status Critical care time >30 minutes
[2020-07-13] MEDS: ALBUTEROL HFA INHALER INHALATION SCH ×3 (07:45→16:03)
[2020-07-13] MEDS: APIXABAN 5 MG TAB PO SCH ×2 (08:55→20:23)
[2020-07-13] MEDS: SODIUM BICARBONATE TAB 650 MG TAB PO SCH ×3 (08:55→20:23)
[2020-07-13] MEDS: ZINC SULFATE 220 MG CAP PO SCH (08:55)
[2020-07-13] MEDS: DEXAMETHASONE SOD PHOSPHATE 10 MG/ML 1 ML VIAL IV SCH (08:55)
[2020-07-13] MEDS: CHOLECALCIFEROL 25 MCG (1000 IU) TABLET PO SCH (08:55)
[2020-07-13] MEDS: PANTOPRAZOLE 40 MG/10 ML VIAL IVP SCH ×2 (08:56→20:23)
[2020-07-13] MEDS: ARIPiprazole 5 MG TAB PO SCH ×2 (08:56→20:23)
[2020-07-13] MEDS: CHLORHEXIDINE GLUCONATE 15 ML CUP MUCOUS MEM SCH ×2 (08:56→20:23)
[2020-07-13] MEDS: SERTRALINE 100 MG TAB PO SCH (08:56)
--- NOTE | 2020-07-13 09:00 | XR ---
EXAMINATION TYPE: XR chest 1V portable DATE OF EXAM: 07/13/2020 Comparison: 07/12/2020 Clinical History: 59-year-old male assess lungs Findings: ET tube satisfactory. Distal aspect of the NG tube is outside the field of view. Extreme lung bases a re excluded. Heart is mildly enlarged. Left greater than right consolidation greatest in the mid and lower lungs not significantly changed. Impression: Relatively similar mid and lower lung consolidation, left greater than right.
--- NOTE | 2020-07-13 10:20 | P.PN ---
Subjective Patient is seen in follow-up for acute kidney injury and hyperkalemia. Intubated. On 50% FiO2. On low-dose Levophed. Urine output improved to 30-50 mL an hour. Receiving tube feeding. Last hemodialysis yesterday. Vital signs are stable. On Levophed. General: No JVD. HEENT: Intubated. LUNGS: Breath sounds decreased. HEART: Rate and Rhythm are regular. ABDOMEN: Soft, no distention. EXTREMITITES: 1+ edema. Objective - Vital Signs Vital signs: Vital Signs Temp 98.6 F 07/13/20 08:00 Pulse 91 07/13/20 10:00 Resp 28 H 07/13/20 10:00 BP 117/56 07/13/20 10:00 Pulse Ox 88 L 07/13/20 10:00 Intake & Output 07/12/20 07/13/20 07/13/20 18:59 06:59 18:59 Intake Total 5544.595 9799.159 339.776 Output Total 1425 405 165 Balance 22.859 879.159 174.776 Weight 119.8 kg 122.1 kg Intake: IV 689 583 142 Pressure Bag 39 33 12 Sodium Chloride 0.9% 1, 650 550 130 000 ml @ 50 mls/hr IV . Q20H PRAFUL Rx#:[id number] Intake, IV Titration 463.859 446.159 107.776 Amount Argatroban 50 mg In 7.314 Sodium Chloride 0.9% 50 ml @ 0.5 MCG/KG/MIN 3.597 mls/hr IV .[id number] PRAFUL Rx#:[id number] Norepinephrine 8 mg In 273.120 156.708 17.726 Sodium Chloride 0.9% 250 ml @ 0.05 MCG/KG/MIN 11. 01 mls/hr IV .[id number] PRAFUL Rx#:[id number] fentaNYL (PF) 1,000 mcg 83.425 In Sodium Chloride 0.9% 80 ml @ Per Protocol IV . Q0M PRAFUL Rx#:[id number] fentaNYL (PF). 1,000 mcg 89.451 90.05 In Sodium Chloride 0.9% 80 ml @ Per Protocol IV . Q0M PRAFUL Rx#:[id number] propofoL 1,000 mg In 100 200 Empty Bag 1 bag @ Titrate IV .Q0M PRAFUL Rx#: [id number] Tube Feeding 165 165 60 Other 130 90 30 Output: Urine 425 405 165 Hemodialysis 1000 Other: Voiding Method Indwelling Catheter Indwelling Catheter Indwelling Catheter - Labs CBC & Chem 7: 07/13/20 03:50 07/13/20 03:50 Labs: Abnormal Lab Results - Last 24 Hours (Table) 07/12/20 07/12/20 07/12/20 Range/Units 12:10 12:28 17:55 WBC (3.8-10.6) k/uL RBC (4.30-5.90) m/uL Hgb (13.0-17.5) gm/dL Hct (39.0-53.0) % Plt Count (150-450) k/uL Neutrophils # (1.3-7.7) k/uL Lymphocytes # (1.0-4.8) k/uL D-Dimer (<0.60) mg/L FEU ABG pCO2 (35-45) mmHg ABG pO2 (83-108) mmHg ABG HCO3 (21-25) mmol/L ABG Total CO2 (19-24) mmol/L ABG O2 Saturation (94-97) % Sodium (137-145) mmol/L BUN (9-20) mg/dL Creatinine (0.66-1.25) mg/dL POC Glucose (mg/dL) 104 H 120 H (75-99) mg/dL Calcium (8.4-10.2) mg/dL Phosphorus 4.6 H (2.5-4.5) mg/dL Total Bilirubin (0.2-1.3) mg/dL AST (17-59) U/L ALT (4-49) U/L Lactate Dehydrogenase (313-618) U/L Creatine Kinase (55-170) U/L C-Reactive Protein (<10.0) mg/L Total Protein (6.3-8.2) g/dL Albumin (3.5-5.0) g/dL 07/13/20 07/13/20 07/13/20 Range/Units 03:50 03:50 03:50 WBC 13.7 H (3.8-10.6) k/uL RBC 3.06 L (4.30-5.90) m/uL Hgb 9.2 L (13.0-17.5) gm/dL Hct 26.0 L (39.0-53.0) % Plt Count 112 L (150-450) k/uL Neutrophils # 12.6 H (1.3-7.7) k/uL Lymphocytes # 0.6 L (1.0-4.8) k/uL D-Dimer 13.34 H (<0.60) mg/L FEU ABG pCO2 (35-45) mmHg ABG pO2 (83-108) mmHg ABG HCO3 (21-25) mmol/L ABG Total CO2 (19-24) mmol/L ABG O2 Saturation (94-97) % Sodium 132 L (137-145) mmol/L BUN 80 H (9-20) mg/dL Creatinine 3.57 H (0.66-1.25) mg/dL POC Glucose (mg/dL) (75-99) mg/dL Calcium 8.3 L (8.4-10.2) mg/dL Phosphorus 8.0 H (2.5-4.5) mg/dL Total Bilirubin 1.9 H (0.2-1.3) mg/dL AST 71 H (17-59) U/L ALT 93 H (4-49) U/L Lactate Dehydrogenase 1021 H (313-618) U/L Creatine Kinase 406 H (55-170) U/L C-Reactive Protein 70.8 H (<10.0) mg/L Total Protein 4.6 L (6.3-8.2) g/dL Albumin 2.4 L (3.5-5.0) g/dL 07/13/20 Range/Units 04:22 WBC (3.8-10.6) k/uL RBC (4.30-5.90) m/uL Hgb (13.0-17.5) gm/dL Hct (39.0-53.0) % Plt Count (150-450) k/uL Neutrophils # (1.3-7.7) k/uL Lymphocytes # (1.0-4.8) k/uL D-Dimer (<0.60) mg/L FEU ABG pCO2 47 H (35-45) mmHg ABG pO2 63 L (83-108) mmHg ABG HCO3 27 H (21-25) mmol/L ABG Total CO2 28 H (19-24) mmol/L ABG O2 Saturation 90.3 L (94-97) % Sodium (137-145) mmol/L BUN (9-20) mg/dL Creatinine (0.66-1.25) mg/dL POC Glucose (mg/dL) (75-99) mg/dL Calcium (8.4-10.2) mg/dL Phosphorus (2.5-4.5) mg/dL Total Bilirubin (0.2-1.3) mg/dL AST (17-59) U/L ALT (4-49) U/L Lactate Dehydrogenase (313-618) U/L Creatine Kinase (55-170) U/L C-Reactive Protein (<10.0) mg/L Total Protein (6.3-8.2) g/dL Albumin (3.5-5.0) g/dL Assessment and Plan Plan: Assessment: 1. Acute kidney injury secondary to ATN secondary to covid-19 infection. Urine output 35-50 mL an hour. Due to persistent hyperkalemia and worsening renal function, started on hemodialysis July 10. 2. Hyperkalemia secondary to acute kidney injury and metabolic acidosis. Improved postdialysis. 3. Metabolic acidosis secondary to acute kidney injury maintained on oral bicarbonate. Improved postdialysis. 4. Septic shock secondary to covid-19 pneumonia. Maintained on Levophed. 5. Acute hypoxic respiratory failure secondary to pneumonia. 6. Hyperphosphatemia secondary to acute kidney injury. Maintained on PhosLo. Plan: Hold hemodialysis today. Continue to assess on a daily basis. Maintain tube feeding. Hep-Lock IV fluids. Wean FiO2 and vasopressors. Continue to monitor renal function and urine output.
[2020-07-13 11:13] LABS: Glucose,Whole Blood 98 mg/dL (75-99)
[2020-07-13 16:34] LABS: LD Isoenzymes 1 17 % (19-38); LD Isoenzymes 2 29 % (30-43); LD Isoenzymes 3 23 % (16-26); LD Isoenzymes 4 14 % (3-12); LD Isoenzymes 5 17 % (3-14); Lactacte Dehydrogenase(LD) ISO 581 U/L (120-250)
[2020-07-13 17:05] LABS: Glucose,Whole Blood 95 mg/dL (75-99)
--- NOTE | 2020-07-13 19:52 | PN ---
PROGRESS NOTE DATE OF SERVICE: 07/13/2020 REASON FOR FOLLOWUP: COVID-19 infection. INTERVAL HISTORY: The patient remains intubated on the vent. The patient's blood pressure is marginal. FiO2 is currently down to 50%. He did have blood-stained secretions through the ET; has been tolerating his tube feeds. Did have an episode of diarrhea per nursing staff. PHYSICAL EXAMINATION: Blood pressure 100/51 with a pulse of 84. Temperature is 99.2. He is 88% on 50% FiO2. General description is a middle-aged male intubated on the vent. RESPIRATORY SYSTEM: Unlabored breathing. Clear to auscultation anteriorly. HEART: S1, S2. Regular rate and rhythm. ABDOMEN: Soft. No tenderness. LABS: Hemoglobin is 9.2, white count 13.7, BUN of 80, creatinine is 3.57. DIAGNOSTIC IMPRESSION AND PLAN: Patient with acute respiratory failure from COVID infection. Patient is currently covered with Decadron, Eliquis, zinc, ascorbic acid. No evidence of any bacterial infection. Infectious Disease Service will follow if needed. Please call back with any questions concerning infectious disease care. MMODL / IJN: [id number] / MTDD
[2020-07-13] MEDS: CISATRACURIUM 200 MG in SODIUM CHLORIDE 0.9% 180 ML IV SCH (20:22)
[2020-07-13 23:13] LABS: Glucose,Whole Blood 111 mg/dL (75-99)
[2020-07-14] MEDS: fentaNYL (PF). 1,000 MCG in SODIUM CHLORIDE 0.9% 80 ML IV SCH ×2 (00:53→20:06)
[2020-07-14 04:03] LABS: ABG Base Excess -0.9 mmol/L; ABG HCO3 25 mmol/L (21-25); ABG Oxygen Saturation 94.9 % (94-97); ABG PCO2 45 mmHg (35-45); ABG PH 7.35 (7.35-7.45); ABG PO2 79 mmHg (83-108); ABG TCO2 26 mmol/L (19-24); Allen Test Performed? Yes
[2020-07-14] MEDS: NOREPINEPHRINE 8 MG in SODIUM CHLORIDE 0.9% 250 ML IV SCH (04:26)
[2020-07-14 04:28] LABS: Basophils % (A) 0 %; Eosinophils # (A) 0.1 k/uL (0-0.7); Eosinophils % (A) 1 %; HCT 26.6 % (39.0-53.0); HGB 8.7 gm/dL (13.0-17.5); Lymphocytes # (A) 0.5 k/uL (1.0-4.8); Lymphocytes % (A) 4 %; MCH 28.8 pg (25.0-35.0); MCHC 32.9 g/dL (31.0-37.0); MCV 87.6 fL (80.0-100.0); Mean Platelet Volume 8.4; Monocytes # (A) 0.4 k/uL (0-1.0); Monocytes % (A) 3 %; Neutrophils # (A) 11.2 k/uL (1.3-7.7); Neutrophils % (A) 92 %; Platelet Count 121 k/uL (150-450); RBC 3.03 m/uL (4.30-5.90); RDW 15.2 % (11.5-15.5); WBC 12.2 k/uL (3.8-10.6)
[2020-07-14] MEDS: ARTIFICIAL TEARS-HYPROMELLOSE DROPS 15 ML BTL BOTH EYES SCH (04:42)
[2020-07-14 05:26] LABS: Hepatitis BE Antibody Nonreactive (Nonreactive)
[2020-07-14 05:27] LABS: Hepatitis BE Antigen Nonreactive (Nonreacitve)
[2020-07-14] MEDS: METOCLOPRAMIDE 5 MG/ML 2 ML VIAL IVP SCH ×4 (05:46→23:59)
[2020-07-14] MEDS: CALCIUM ACETATE 667 MG TAB PO SCH ×3 (05:47→17:49)
[2020-07-14 05:49] LABS: Albumin 2.3 g/dL (3.5-5.0); C Reactive Protein 87.2 mg/L (<10.0); Calcium 8.4 mg/dL (8.4-10.2); Potassium 4.6 mmol/L (3.5-5.1); Total Bilirubin 1.7 mg/dL (0.2-1.3); Total Protein 4.5 g/dL (6.3-8.2)
[2020-07-14] MEDS: INSULIN ASPART (NovoLOG) 100 UNIT/ML VIAL SQ SCH ×3 (06:03→17:49)
[2020-07-14] MEDS: ALBUTEROL HFA INHALER INHALATION SCH ×3 (07:42→21:16)
--- NOTE | 2020-07-14 08:37 | P.PN ---
Subjective Progress Note Date: 07/14/20 The patient is seen today 07/12/2020 in follow-up in the intensive care unit. He remains intubated, sedated on the mechanical ventilator at assist control mode of a rate of 36, tidal volume 450, FiO2 40% and a PEEP of 10. Morning blood gases reveal pO2 of 69, pCO2 41, pH 7.35. He remains sedated on propofol at 60 mcg/kg/m, fentanyl at 1 mcg/kg/h, norepinephrine at 0.09 mcg/kg//min, the patient is currently on 0.9 saline at rate of 50 mL an hour. The patient has been off Nimbex since yesterday. He is continued on Argatroban at 0.5 mcg/kg/m. Being nourished with Nepro at 15 ML's per hour. He did receive hemodialysis yesterday with 1 L removed. Chest x-ray reveals mild bibasilar infiltrates. Sputum cultures positive for beta-hemolytic strep, group C. White count 18.1. Hemoglobin 10.6. Platelet count 141. D-dimer 19.69. Sodium 133. Potassium 4.7. Creatinine 4.14. LDH 1067, C-reactive protein 24. Remains on antibiotics in the form of ceftriaxone. Bronchodilators. Vitamin supplements. Dexamethasone. 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 The platelet count is stable and the platelet count is up to 136. On 07/12/2020, the patient is being seen for follow-up. The patient is a 59-year-old obese male patient with a BMI of 36.2 with known history of obstructive sleep apnea, presented with COVID 19 related pneumonia patient is currently intubated on a mechanical ventilator. The patient has been on a mechanical ventilator since 07/05/2020. 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 During the course of his treatment, the patient developed an acute kidney injury secondary to ATN secondary to "with 19 infection. Urine output was improving and the patient's urine output was in order of 20-25 mL an hour. Due to persistent hyperkalemia and worsening renal function, the patient was started on hemodialysis on 07/10/2020. The potassium level improved post-hemodialysis. The patient also had significant metabolic acidosis and the patient was given bicarb infusion. Electrolytes are being monitored. The patient got dialyzed yesterday and this was his second hemodialysis. Nephrology is on the case. He is currently on Decadron 6 mg IV every 24 hours. His chest x-ray is showing patchy by the pulmonary infiltrates in lower lobes, slightly worsening in the chest x-ray findings on today's evaluation mainly in the peripheries and ET tube is in a good location. The patient remains on a mechanical ventilator assist control mode. He is on Nepro at 60 mL an hour. 07/13/2020, I'm seeing this patient for a follow-up. This is a case of a 59-year-old male patient with Covid 19 related pneumonia and acute kidney injury currently on hemodialysis. Worn-out, the patient is sedated and this morning the patient is currently on propofol running at 6 60 mcg/kg per minute and fentanyl is running at 1 mcg/kg/h and this is the same sedation it was being provided yesterday. The patient is on no paralytics for now. The patient is on a mechanical ventilator, on this morning's evaluation, he is on assist-control at the rate of 28 with a tidal volume of 450 and FiO2 of 50% and PEEP is 10. Blood gases from today showing a pH of 7.37 with a pCO2 of 47 and pO2 of 63. Chest x-ray from today is showing diffuse bilateral pulmonary infiltrates more so in the lower lobes bilaterally. ET tube is in a good location. Comparing this chest x-ray from yesterday, there is no major interval change in the findings are essentially stable. His peak airway pressures 28. His static pressures 24. The patient is is still on Decadron 6 mg IV every 24 hours. D- dimer today's at 13.3, his LDH level is at 1021 and the CRP is at 4.6. Note that his inflammatory markers essentially compatible to yesterday. His echoes at 13.7 with a hemoglobin of 9.2. Platelet count is 112. I took the patient off Agratoban and he was also placed on Eliquis at a dose of 5 mg by mouth twice a day. Noted the patient also is an acute kidney injury. The patient underwent dialysis and the spot he has taken 3 sessions of hemodialysis. He is producing urine output in the order of 20-30 mL an hour. His last session of hemodialysis was yesterday. In terms of his electrolytes, his BUN is at 80 with a creatinine of 3.5 and a sodium of 132 with a potassium of 4.4. He is currently on enteral feeding for dizziness support and is currently on Nepro at the rate of 50 mL an hour. He is currently off Rocephin. He is afebrile. He is requiring low-dose pressors were norepinephrine 30 dose of 0.03 mcg/kg per minute. Otherwise, no other significant events. He is afebrile. Sedation holiday was not done yesterday. IV fluids are running at 0.9 at the rate of 50 mL an hour. 07/14/2020, patient is being seen for follow-up. Sedated and still on a mechanical ventilator, probable resolving. 60 mcg/kg per minute and the patient is also on fentanyl at 1 mcg/kg/h. Adequately sedated. On a mechanical ventilator essentially vent settings being at tidal volume of 450 with an FiO2 of 50% and a PEEP of 10 and a rate of 28. These are essentially the same settings as yesterday. As far as blood gases, pO2 is at 79 with a pCO2 of 45 and a pH is at 7.35. He d-dimer is at 9.42 and the rest of the inflammatory markers show an LDH of 1062 which is stable compared to yesterday and a CRP of 87, slightly elevated compared to yesterday. His CPK is down to 231. His pro calcitonin level was at 0.58 and note that the patient has dialysis-dependent renal failure. As far as his creatinine, his creatinine today is at 3.97 with a mean of 96. He did not receive dialysis yesterday. His urine output is in order of 30-40 mL an hour and the fluid balance has been +1.1 L over the past 24 hours. His chest x-ray from today is showing lower lobe pulmonary infiltrates, essentially stable compared to yesterday. ET tube remains in excellent location. IV fluids are running at 20 cc an hour of normal saline. He is afebrile. He is tolerating his enteral feeding for nutritional support. Nore pinephrine infusion which is running at 0.05 mcg/kg per minute. He remains on Decadron 6 mg IV every 24 , platelet count is stable at 121 and 11 avoiding heparin. Patient holiday yesterday was ultimately aborted as the patient became quite agitated after several hours without any meaningful neurological response. Objective - Vital Signs Vital signs: Vital Signs Temp 98.6 F 07/14/20 04:00 Pulse 72 07/14/20 08:00 Resp 28 H 07/14/20 08:00 BP 101/53 07/14/20 08:00 Pulse Ox 93 L 07/14/20 08:00 Intake & Output 07/13/20 07/14/20 07/14/20 18:59 06:59 18:59 Intake Total 1190.060 838.046 38 Output Total 450 445 35 Balance 740.060 393.046 3 Weight 125.7 kg Intake: IV 306 276 23 0.9 NS 220 20 Pressure Bag 176 56 3 Sodium Chloride 0.9% 1, 130 000 ml @ 50 mls/hr IV . Q20H [facility]UL Rx#:[id number] Intake, IV Titration 614.060 292.046 Amount Norepinephrine 8 mg In 258.000 Sodium Chloride 0.9% 250 ml @ 0.05 MCG/KG/MIN 11. 01 mls/hr IV .[id number] PRAFUL Rx#:[id number] fentaNYL (PF). 1,000 mcg 155.341 92.046 In Sodium Chloride 0.9% 80 ml @ Per Protocol IV . Q0M PR[facility]UL Rx#:[id number] propofoL 1,000 mg In 200.719 200 Empty Bag 1 bag @ Titrate IV .Q0M PRAFUL Rx#: [id number] Tube Feeding 180 180 15 Other 90 90 Output: Urine 450 445 35 Other: Voiding Method Indwelling Catheter Indwelling Catheter - Exam GENERAL EXAM: Intubated, sedated 59-year-old gentleman, on the mechanical ventilator, in no apparent distress. HEAD: Normocephalic. EYES: Sluggish reaction of pupils, equal size. NOSE: Clear with pink turbinates. THROAT: Oral endotracheal and gastric tube secured in place No erythema or exudates. NECK: No masses, no JVD. CHEST: No chest wall deformity. LUNGS: Equal air entry with crackles in the bilateral posterior bases CVS: S1 and S2 normal with no audible murmur, regular rhythm. ABDOMEN: No hepatosplenomegaly, normal bowel sounds, no guarding or rigidity. SPINE: No scoliosis or deformity SKIN: No rashes, some oozing from the scrotum CENTRAL NERVOUS SYSTEM: Sedated. No focal deficits, tone is normal in all 4 extremities. EXTREMITIES: Left upper extremity cool, dusky, pulseless. - Labs CBC & Chem 7: 07/14/20 03:50 07/14/20 03:50 Labs: Abnormal Lab Results - Last 24 Hours (Table) 07/07/20 07/13/20 07/13/20 Range/Units 10:45 03:50 03:50 WBC (3.8-10.6) k/uL RBC (4.30-5.90) m/uL Hgb (13.0-17.5) gm/dL Hct (39.0-53.0) % Plt Count (150-450) k/uL Neutrophils # (1.3-7.7) k/uL Lymphocytes # (1.0-4.8) k/uL D-Dimer (<0.60) mg/L FEU ABG pO2 (83-108) mmHg ABG Total CO2 (19-24) mmol/L Sodium (137-145) mmol/L BUN (9-20) mg/dL Creatinine (0.66-1.25) mg/dL POC Glucose (mg/dL) (75-99) mg/dL Ferritin 847.0 H (22.0-322.0) ng/mL Total Bilirubin (0.2-1.3) mg/dL ALT (4-49) U/L Lactate Dehydrogenase (313-618) U/L LD Isoenzymes 581 H (120-250) U/L LD 1 17 L (19-38) % LD 2 29 L (30-43) % LD 4 14 H (3-12) % LD 5 17 H (3-14) % Creatine Kinase (55-170) U/L C-Reactive Protein (<10.0) mg/L Total Protein (6.3-8.2) g/dL Albumin (3.5-5.0) g/dL Procalcitonin 0.58 H (0.02-0.09) ng/mL 07/13/20 07/14/20 07/14/20 Range/Units 23:10 03:50 03:50 WBC 12.2 H (3.8-10.6) k/uL RBC 3.03 L (4.30-5.90) m/uL Hgb 8.7 L (13.0-17.5) gm/dL Hct 26.6 L (39.0-53.0) % Plt Count 121 L (150-450) k/uL Neutrophils # 11.2 H (1.3-7.7) k/uL Lymphocytes # 0.5 L (1.0-4.8) k/uL D-Dimer 9.42 H (<0.60) mg/L FEU ABG pO2 (83-108) mmHg ABG Total CO2 (19-24) mmol/L Sodium (137-145) mmol/L BUN (9-20) mg/dL Creatinine (0.66-1.25) mg/dL POC Glucose (mg/dL) 111 H (75-99) mg/dL Ferritin (22.0-322.0) ng/mL Total Bilirubin (0.2-1.3) mg/dL ALT (4-49) U/L Lactate Dehydrogenase (313-618) U/L LD Isoenzymes (120-250) U/L LD 1 (19-38) % LD 2 (30-43) % LD 4 (3-12) % LD 5 (3-14) % Creatine Kinase (55-170) U/L C-Reactive Protein (<10.0) mg/L Total Protein (6.3-8.2) g/dL Albumin (3.5-5.0) g/dL Procalcitonin (0.02-0.09) ng/mL 07/14/20 07/14/20 Range/Units 03:50 03:55 WBC (3.8-10.6) k/uL RBC (4.30-5.90) m/uL Hgb (13.0-17.5) gm/dL Hct (39.0-53.0) % Plt Count (150-450) k/uL Neutrophils # (1.3-7.7) k/uL Lymphocytes # (1.0-4.8) k/uL D-Dimer (<0.60) mg/L FEU ABG pO2 79 L (83-108) mmHg ABG Total CO2 26 H (19-24) mmol/L Sodium 132 L (137-145) mmol/L BUN 96 H (9-20) mg/dL Creatinine 3.97 H (0.66-1.25) mg/dL POC Glucose (mg/dL) (75-99) mg/dL Ferritin (22.0-322.0) ng/mL Total Bilirubin 1.7 H (0.2-1.3) mg/dL ALT 68 H (4-49) U/L Lactate Dehydrogenase 1062 H (313-618) U/L LD Isoenzymes (120-250) U/L LD 1 (19-38) % LD 2 (30-43) % LD 4 (3-12) % LD 5 (3-14) % Creatine Kinase 231 H (55-170) U/L C-Reactive Protein 87.2 H (<10.0) mg/L Total Protein 4.5 L (6.3-8.2) g/dL Albumin 2.3 L (3.5-5.0) g/dL Procalcitonin (0.02-0.09) ng/mL Assessment and Plan Plan: 1 Acute hypoxemic respiratory failure secondary to acute CoVID 19 pneumoni a/pneumonitis requiring mechanical ventilation on 07/05/2020. Received a tocilizumab and convalescent plasma and the patient is currently on Decadron 6 mg every 24 hours. Chest x-ray showing bilateral lower lobe pulmonary infiltrates peripheral distribution and orotracheal tube is in a good location. Chest x-ray was noted. Blood gases was noted. Airway pressures are showing a peak and static 26 and 24 respectively. 2 acute kidney injury secondary to Covid related ATN and the patient is cu rrently on renal replacement therapy. The patient already received 3 sessions of hemodialysis for severe metabolic acidosis and persistent hyperkalemia. The metabolic acidosis improved and the patient is producing urine output in the order of 30 mL an hour. Creatinine remains elevated. 3 severe metabolic acidosis , recovered . The patient also has hyperkalemia improved with hemodialysis. 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, platelets are 1 [id number] of obstructive sleep apnea, maintained on CPAP Plan: Continue ventilator support, respiratory rate down to 24, keep the FiO2 at 50% and if the PEEP at 8 Continue sedation with propofol and fentanyl Give the patient sedation holiday and has underlying mental status, the child was given yesterday failed Possible dialysis today Eliquis 2.5 mg by mouth twice a day, monitor platelet counts Chest x-ray and blood gas was noted Hemodialysis per nephrology Continue Decadron 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
--- NOTE | 2020-07-14 09:02 | P.ARTDOP ---
Arterial Doppler Upper extremity arterial Doppler: Date of study: 07/09/2020 Reason for study: Left hand and fingers blue. Findings: Doppler waveforms are multiphasic bilaterally throughout. The right brachial pressure is registered at 1 30 mmHg. The left was not done due to IV site. There is a gradient with a pressure reading of 100 on the right radial, 87 right ulnar, 49 left radial, 68 left ulnar. Digital pressure on the right is 85. Impression: Pressures and waveforms would suggest viability bilaterally. Gradients could be related to a severe vasospastic phenomenon or less likely distal occlusive process at the brachial level. Clinical correlation recommended
[2020-07-14] MEDS: CHLORHEXIDINE GLUCONATE 15 ML CUP MUCOUS MEM SCH ×2 (09:16→19:56)
[2020-07-14] MEDS: CHOLECALCIFEROL 25 MCG (1000 IU) TABLET PO SCH (09:16)
[2020-07-14] MEDS: PANTOPRAZOLE 40 MG/10 ML VIAL IVP SCH ×2 (09:17→19:56)
[2020-07-14] MEDS: DEXAMETHASONE SOD PHOSPHATE 10 MG/ML 1 ML VIAL IV SCH (09:17)
[2020-07-14] MEDS: ZINC SULFATE 220 MG CAP PO SCH (09:18)
[2020-07-14] MEDS: ARIPiprazole 5 MG TAB PO SCH ×2 (09:18→19:56)
[2020-07-14] MEDS: SERTRALINE 100 MG TAB PO SCH (09:18)
[2020-07-14] MEDS: SODIUM BICARBONATE TAB 650 MG TAB PO SCH ×3 (09:18→19:56)
[2020-07-14] MEDS: APIXABAN 2.5 MG TABLET PO SCH ×2 (09:18→19:56)
--- NOTE | 2020-07-14 10:05 | P.PN ---
Subjective Patient is seen in follow-up for acute kidney injury and hyperkalemia. Intubated. On 50% FiO2. On low-dose Levophed. Urine output 30-40 mL an hour. Receiving tube feeding. Last hemodialysis on July 12. Vital signs are stable. On Levophed. General: No JVD. HEENT: Intubated. LUNGS: Breath sounds decreased. HEART: Rate and Rhythm are regular. ABDOMEN: Soft, no distention. EXTREMITITES: 1+ edema. Objective - Vital Signs Vital signs: Vital Signs Temp 98.6 F 07/14/20 04:00 Pulse 72 07/14/20 08:00 Resp 28 H 07/14/20 08:00 BP 101/53 07/14/20 08:00 Pulse Ox 93 L 07/14/20 08:00 Intake & Output 07/13/20 07/14/20 07/14/20 18:59 06:59 18:59 Intake Total 1190.060 838.046 254.051 Output Total 450 445 35 Balance 740.060 393.046 219.051 Weight 125.7 kg Intake: IV 306 276 23 0.9 NS 220 20 Pressure Bag 176 56 3 Sodium Chloride 0.9% 1, 130 000 ml @ 50 mls/hr IV . Q20H [facility] Rx#:[id number] Intake, IV Titration 614.060 292.046 216.051 Amount Norepinephrine 8 mg In 258.000 22.607 Sodium Chloride 0.9% 250 ml @ 0.05 MCG/KG/MIN 11. 01 mls/hr IV .[id number] [facility] Rx#:[id number] fentaNYL (PF). 1,000 mcg 155.341 92.046 93.444 In Sodium Chloride 0.9% 80 ml @ Per Protocol IV . Q0M [facility]UL Rx#:[id number] propofoL 1,000 mg In 200.719 200 100 Empty Bag 1 bag @ Titrate IV .Q0M PRAFUL Rx#: [id number] Tube Feeding 180 180 15 Other 90 90 Output: Urine 450 445 35 Other: Voiding Method Indwelling Catheter Indwelling Catheter - Labs CBC & Chem 7: 07/14/20 03:50 07/14/20 03:50 Labs: Abnormal Lab Results - Last 24 Hours (Table) 07/07/20 07/13/20 07/13/20 Range/Units 10:45 03:50 03:50 WBC (3.8-10.6) k/uL RBC (4.30-5.90) m/uL Hgb (13.0-17.5) gm/dL Hct (39.0-53.0) % Plt Count (150-450) k/uL Neutrophils # (1.3-7.7) k/uL Lymphocytes # (1.0-4.8) k/uL D-Dimer (<0.60) mg/L FEU ABG pO2 (83-108) mmHg ABG Total CO2 (19-24) mmol/L Sodium (137-145) mmol/L BUN (9-20) mg/dL Creatinine (0.66-1.25) mg/dL POC Glucose (mg/dL) (75-99) mg/dL Ferritin 847.0 H (22.0-322.0) ng/mL Total Bilirubin (0.2-1.3) mg/dL ALT (4-49) U/L Lactate Dehydrogenase (313-618) U/L LD Isoenzymes 581 H (120-250) U/L LD 1 17 L (19-38) % LD 2 29 L (30-43) % LD 4 14 H (3-12) % LD 5 17 H (3-14) % Creatine Kinase (55-170) U/L C-Reactive Protein (<10.0) mg/L Total Protein (6.3-8.2) g/dL Albumin (3.5-5.0) g/dL Procalcitonin 0.58 H (0.02-0.09) ng/mL 07/13/20 07/14/20 07/14/20 Range/Units 23:10 03:50 03:50 WBC 12.2 H (3.8-10.6) k/uL RBC 3.03 L (4.30-5.90) m/uL Hgb 8.7 L (13.0-17.5) gm/dL Hct 26.6 L (39.0-53.0) % Plt Count 121 L (150-450) k/uL Neutrophils # 11.2 H (1.3-7.7) k/uL Lymphocytes # 0.5 L (1.0-4.8) k/uL D-Dimer 9.42 H (<0.60) mg/L FEU ABG pO2 (83-108) mmHg ABG Total CO2 (19-24) mmol/L Sodium (137-145) mmol/L BUN (9-20) mg/dL Creatinine (0.66-1.25) mg/dL POC Glucose (mg/dL) 111 H (75-99) mg/dL Ferritin (22.0-322.0) ng/mL Total Bilirubin (0.2-1.3) mg/dL ALT (4-49) U/L Lactate Dehydrogenase (313-618) U/L LD Isoenzymes (120-250) U/L LD 1 (19-38) % LD 2 (30-43) % LD 4 (3-12) % LD 5 (3-14) % Creatine Kinase (55-170) U/L C-Reactive Protein (<10.0) mg/L Total Protein (6.3-8.2) g/dL Albumin (3.5-5.0) g/dL Procalcitonin (0.02-0.09) ng/mL 07/14/20 07/14/20 Range/Units 03:50 03:55 WBC (3.8-10.6) k/uL RBC (4.30-5.90) m/uL Hgb (13.0-17.5) gm/dL Hct (39.0-53.0) % Plt Count (150-450) k/uL Neutrophils # (1.3-7.7) k/uL Lymphocytes # (1.0-4.8) k/uL D-Dimer (<0.60) mg/L FEU ABG pO2 79 L (83-108) mmHg ABG Total CO2 26 H (19-24) mmol/L Sodium 132 L (137-145) mmol/L BUN 96 H (9-20) mg/dL Creatinine 3.97 H (0.66-1.25) mg/dL POC Glucose (mg/dL) (75-99) mg/dL Ferritin (22.0-322.0) ng/mL Total Bilirubin 1.7 H (0.2-1.3) mg/dL ALT 68 H (4-49) U/L Lactate Dehydrogenase 1062 H (313-618) U/L LD Isoenzymes (120-250) U/L LD 1 (19-38) % LD 2 (30-43) % LD 4 (3-12) % LD 5 (3-14) % Creatine Kinase 231 H (55-170) U/L C-Reactive Protein 87.2 H (<10.0) mg/L Total Protein 4.5 L (6.3-8.2) g/dL Albumin 2.3 L (3.5-5.0) g/dL Procalcitonin (0.02-0.09) ng/mL Assessment and Plan Plan: Assessment: 1. Acute kidney injury secondary to ATN secondary to covid-19 infection. Urine output 35-40 mL an hour. Due to persistent hyperkalemia and worsening renal function, started on hemodialysis July 10. 2. Hyperkalemia secondary to acute kidney injury and metabolic acidosis. Improved postdialysis. 3. Metabolic acidosis secondary to acute kidney injury maintained on oral bicarbonate. Stable. 4. Septic shock secondary to covid-19 pneumonia. Maintained on Levophed. 5. Acute hypoxic respiratory failure secondary to pneumonia. 6. Hyperphosphatemia secondary to acute kidney injury. Maintained on PhosLo. 7. Anemia. Component of kidney disease. Elevated BUN due to kidney disease and steroids. Questionable GI bleed. Plan: Hemodialysis today. Continue to assess on a daily basis. Maintain tube feeding. Off IV fluids. Wean FiO2 and vasopressors. Continue to monitor renal function and urine output. Add Aranesp. Check stool for occult blood.
--- NOTE | 2020-07-14 11:01 | XR ---
EXAMINATION TYPE: XR chest 1V portable DATE OF EXAM: 07/14/2020 COMPARISON: 07/13/2020 INDICATION: Lung assessment TECHNIQUE: Single frontal view of the chest is obtained. FINDINGS: The heart size is mildly prominent. The pulmonary vasculature is normal. Bibasilar infiltrates and mild left upper lobe infiltrate is present. Findings are stable over the in terval. Endotracheal tube tip is above the chato. Nasogastric tube transverses the thorax. IMPRESSION: 1. Stable bilateral lung infiltrates greater on the left. 2. Lines and catheters discussed above.
[2020-07-14 11:09] LABS: Glucose,Whole Blood 101 mg/dL (75-99)
--- NOTE | 2020-07-14 11:18 | P.PN ---
Subjective Progress Note Date: 07/14/20 Principal diagnosis: cold left upper extremity, acute kidney injury need for temporary hemodialysis catheter The patient is seen and examinedin the ICU. He remains sedated on mechanical ventilation. He is status post temporary hemodialysis catheter placement. He has received hemodialysis without any difficulty. No other acute changes. Lateral upper extremities remain edematous, left hand improved flow with noted demarcation on his thumb through fourth finger. Objective - Vital Signs Vital signs: Vital Signs Temp 98.6 F 07/14/20 04:00 Pulse 72 07/14/20 08:00 Resp 28 H 07/14/20 08:00 BP 101/53 07/14/20 08:00 Pulse Ox 93 L 07/14/20 08:00 Intake & Output 07/13/20 07/14/20 07/14/20 18:59 06:59 18:59 Intake Total 1190.060 838.046 254.051 Output Total 450 445 35 Balance 740.060 393.046 219.051 Weight 125.7 kg Intake: IV 306 276 23 0.9 NS 220 20 Pressure Bag 176 56 3 Sodium Chloride 0.9% 1, 130 000 ml @ 50 mls/hr IV . Q20H [facility] Rx#:[id number] Intake, IV Titration 614.060 292.046 216.051 Amount Norepinephrine 8 mg In 258.000 22.607 Sodium Chloride 0.9% 250 ml @ 0.05 MCG/KG/MIN 11. 01 mls/hr IV .[id number] [facility] Rx#:[id number] fentaNYL (PF). 1,000 mcg 155.341 92.046 93.444 In Sodium Chloride 0.9% 80 ml @ Per Protocol IV . Q0M [facility] Rx#:[id number] propofoL 1,000 mg In 200.719 200 100 Empty Bag 1 bag @ Titrate IV .Q0M [facility] Rx#: [id number] Tube Feeding 180 180 15 Other 90 90 Output: Urine 450 445 35 Other: Voiding Method Indwelling Catheter Indwelling Catheter - Exam General appearance: The patient is sedated on mechanical ventilation HET: Head is normocephalic and atraumatic. Neck: Supple without lymphadenopathy. Trachea midline. Abdomen: Soft, nontender, nondistended. Extremities: left groin with hemodialysis catheter intact without any signs of bleeding.bilateral lower extremity edema. Left extremity with decreased edema, first through fourth finger tips with demarcation. Good capillary refill, palpable radial pulse. Right palpable radial pulse, decreased capillary refill with Neurological: sedated on mechanical ventilation - Labs CBC & Chem 7: 07/14/20 03:50 07/14/20 03:50 Labs: Abnormal Lab Results - Last 24 Hours (Table) 07/07/20 07/13/20 07/13/20 Range/Units 10:45 03:50 03:50 WBC (3.8-10.6) k/uL RBC (4.30-5.90) m/uL Hgb (13.0-17.5) gm/dL Hct (39.0-53.0) % Plt Count (150-450) k/uL Neutrophils # (1.3-7.7) k/uL Lymphocytes # (1.0-4.8) k/uL D-Dimer (<0.60) mg/L FEU ABG pO2 (83-108) mmHg ABG Total CO2 (19-24) mmol/L Sodium (137-145) mmol/L BUN (9-20) mg/dL Creatinine (0.66-1.25) mg/dL POC Glucose (mg/dL) (75-99) mg/dL Ferritin 847.0 H (22.0-322.0) ng/mL Total Bilirubin (0.2-1.3) mg/dL ALT (4-49) U/L Lactate Dehydrogenase (313-618) U/L LD Isoenzymes 581 H (120-250) U/L LD 1 17 L (19-38) % LD 2 29 L (30-43) % LD 4 14 H (3-12) % LD 5 17 H (3-14) % Creatine Kinase (55-170) U/L C-Reactive Protein (<10.0) mg/L Total Protein (6.3-8.2) g/dL Albumin (3.5-5.0) g/dL Procalcitonin 0.58 H (0.02-0.09) ng/mL 07/13/20 07/14/20 07/14/20 Range/Units 23:10 03:50 03:50 WBC 12.2 H (3.8-10.6) k/uL RBC 3.03 L (4.30-5.90) m/uL Hgb 8.7 L (13.0-17.5) gm/dL Hct 26.6 L (39.0-53.0) % Plt Count 121 L (150-450) k/uL Neutrophils # 11.2 H (1.3-7.7) k/uL Lymphocytes # 0.5 L (1.0-4.8) k/uL D-Dimer 9.42 H (<0.60) mg/L FEU ABG pO2 (83-108) mmHg ABG Total CO2 (19-24) mmol/L Sodium (137-145) mmol/L BUN (9-20) mg/dL Creatinine (0.66-1.25) mg/dL POC Glucose (mg/dL) 111 H (75-99) mg/dL Ferritin (22.0-322.0) ng/mL Total Bilirubin (0.2-1.3) mg/dL ALT (4-49) U/L Lactate Dehydrogenase (313-618) U/L LD Isoenzymes (120-250) U/L LD 1 (19-38) % LD 2 (30-43) % LD 4 (3-12) % LD 5 (3-14) % Creatine Kinase (55-170) U/L C-Reactive Protein (<10.0) mg/L Total Protein (6.3-8.2) g/dL Albumin (3.5-5.0) g/dL Procalcitonin (0.02-0.09) ng/mL 07/14/20 07/14/20 Range/Units 03:50 03:55 WBC (3.8-10.6) k/uL RBC (4.30-5.90) m/uL Hgb (13.0-17.5) gm/dL Hct (39.0-53.0) % Plt Count (150-450) k/uL Neutrophils # (1.3-7.7) k/uL Lymphocytes # (1.0-4.8) k/uL D-Dimer (<0.60) mg/L FEU ABG pO2 79 L (83-108) mmHg ABG Total CO2 26 H (19-24) mmol/L Sodium 132 L (137-145) mmol/L BUN 96 H (9-20) mg/dL Creatinine 3.97 H (0.66-1.25) mg/dL POC Glucose (mg/dL) (75-99) mg/dL Ferritin (22.0-322.0) ng/mL Total Bilirubin 1.7 H (0.2-1.3) mg/dL ALT 68 H (4-49) U/L Lactate Dehydrogenase 1062 H (313-618) U/L LD Isoenzymes (120-250) U/L LD 1 (19-38) % LD 2 (30-43) % LD 4 (3-12) % LD 5 (3-14) % Creatine Kinase 231 H (55-170) U/L C-Reactive Protein 87.2 H (<10.0) mg/L Total Protein 4.5 L (6.3-8.2) g/dL Albumin 2.3 L (3.5-5.0) g/dL Procalcitonin (0.02-0.09) ng/mL Assessment and Plan Assessment: 1. Status post left temporary femoral hemodialysis catheter placement 2. Acute kidney injury 3. Left hand ischemia, microvascular occlusions, biphasic radial and ulnar signals 4. Acute hypoxic respiratory failure from covid pna 5. Thrombocytopenia, likely heparin-induced 6. Hypertension 7. Obesity 8. Obstructive sleep apnea 9. Superficial venous thrombus Plan: 1. Continue symptomatic and supportive care 2. Continue anticoagulation if tolerated 3. Continue ICU management 4. Hemodialysis as ordered per nephrology Thank you for this consultation, we will be on standby if tunneled dialysis catheter is required The impression and plan of care has been dictated as directed. Dr. Dr. Silva I performed a history and examination of this patient, discussed the same with the dictator. I agree with the dictator's note ,documented as a scribe. Any additional findings or plans will be noted.
[2020-07-14] MEDS: DARBEPOETIN ALFA 40 MCG/0.4 ML SYRINGE SQ SCH (12:14)
[2020-07-14 12:56] LABS: Ferritin 775.1 ng/mL (22.0-322.0)
[2020-07-14 17:40] LABS: Glucose,Whole Blood 83 mg/dL (75-99)
[2020-07-14 22:37] LABS: Hepatitis B Surface AB- Quant 3.5 mIU/mL; Hepatitis B Surface Antibody Non-Reactive (Non-Reactive); Hepatitis B Surface Antigen Non-Reactive (Non-Reactive)
[2020-07-14 23:37] LABS: Glucose,Whole Blood 88 mg/dL (75-99)
[2020-07-14 23:37] LABS: Glucose,Whole Blood 86 mg/dL (75-99)
[2020-07-15] MEDS: INSULIN ASPART (NovoLOG) 100 UNIT/ML VIAL SQ SCH ×5 (00:17→23:02)
[2020-07-15] MEDS: fentaNYL (PF). 1,000 MCG in SODIUM CHLORIDE 0.9% 80 ML IV SCH (03:32)
[2020-07-15 04:12] LABS: ABG Base Excess -1.8 mmol/L; ABG HCO3 24 mmol/L (21-25); ABG Oxygen Saturation 93.3 % (94-97); ABG PCO2 46 mmHg (35-45); ABG PH 7.33 (7.35-7.45); ABG PO2 73 mmHg (83-108); ABG TCO2 26 mmol/L (19-24); Allen Test Performed? Yes
[2020-07-15 04:22] LABS: Albumin 2.3 g/dL (3.5-5.0); C Reactive Protein 78.3 mg/L (<10.0); Calcium 8.3 mg/dL (8.4-10.2); Potassium 4.4 mmol/L (3.5-5.1); Total Bilirubin 1.3 mg/dL (0.2-1.3); Total Protein 4.5 g/dL (6.3-8.2)
[2020-07-15 04:25] LABS: Basophils % (A) 0 %; Eosinophils # (A) 0.1 k/uL (0-0.7); Eosinophils % (A) 1 %; HCT 26.3 % (39.0-53.0); HGB 8.4 gm/dL (13.0-17.5); Lymphocytes # (A) 0.4 k/uL (1.0-4.8); Lymphocytes % (A) 4 %; MCH 28.4 pg (25.0-35.0); MCHC 31.9 g/dL (31.0-37.0); MCV 88.9 fL (80.0-100.0); Mean Platelet Volume 8.1; Monocytes # (A) 0.4 k/uL (0-1.0); Monocytes % (A) 3 %; Neutrophils # (A) 10.6 k/uL (1.3-7.7); Neutrophils % (A) 91 %; Platelet Count 132 k/uL (150-450); RBC 2.95 m/uL (4.30-5.90); RDW 15.7 % (11.5-15.5); WBC 11.6 k/uL (3.8-10.6)
[2020-07-15] MEDS: METOCLOPRAMIDE 5 MG/ML 2 ML VIAL IVP SCH ×4 (06:17→22:34)
[2020-07-15] MEDS: CALCIUM ACETATE 667 MG TAB PO SCH ×3 (06:17→17:26)
--- NOTE | 2020-07-15 07:45 | P.PN ---
Subjective Progress Note Date: 07/15/20 The patient is seen today 07/12/2020 in follow-up in the intensive care unit. He remains intubated, sedated on the mechanical ventilator at assist control mode of a rate of 36, tidal volume 450, FiO2 40% and a PEEP of 10. Morning blood gases reveal pO2 of 69, pCO2 41, pH 7.35. He remains sedated on propofol at 60 mcg/kg/m, fentanyl at 1 mcg/kg/h, norepinephrine at 0.09 mcg/kg//min, the patient is currently on 0.9 saline at rate of 50 mL an hour. The patient has been off Nimbex since yesterday. He is continued on Argatroban at 0.5 mcg/kg/m. Being nourished with Nepro at 15 ML's per hour. He did receive hemodialysis yesterday with 1 L removed. Chest x-ray reveals mild bibasilar infiltrates. Sputum cultures positive for beta-hemolytic strep, group C. White count 18.1. Hemoglobin 10.6. Platelet count 141. D-dimer 19.69. Sodium 133. Potassium 4.7. Creatinine 4.14. LDH 1067, C-reactive protein 24. Remains on antibiotics in the form of ceftriaxone. Bronchodilators. Vitamin supplements. Dexamethasone. 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 The platelet count is stable and the platelet count is up to 136. On 07/12/2020, the patient is being seen for follow-up. The patient is a 59-year-old obese male patient with a BMI of 36.2 with known history of obstructive sleep apnea, presented with COVID 19 related pneumonia patient is currently intubated on a mechanical ventilator. The patient has been on a mechanical ventilator since 07/05/2020. 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 During the course of his treatment, the patient developed an acute kidney injury secondary to ATN secondary to "with 19 infection. Urine output was improving and the patient's urine output was in order of 20-25 mL an hour. Due to persistent hyperkalemia and worsening renal function, the patient was started on hemodialysis on 07/10/2020. The potassium level improved post-hemodialysis. The patient also had significant metabolic acidosis and the patient was given bicarb infusion. Electrolytes are being monitored. The patient got dialyzed yesterday and this was his second hemodialysis. Nephrology is on the case. He is currently on Decadron 6 mg IV every 24 hours. His chest x-ray is showing patchy by the pulmonary infiltrates in lower lobes, slightly worsening in the chest x-ray findings on today's evaluation mainly in the peripheries and ET tube is in a good location. The patient remains on a mechanical ventilator assist control mode. He is on Nepro at 60 mL an hour. 07/13/2020, I'm seeing this patient for a follow-up. This is a case of a 59-year-old male patient with Covid 19 related pneumonia and acute kidney injury currently on hemodialysis. Worn-out, the patient is sedated and this morning the patient is currently on propofol running at 6 60 mcg/kg per minute and fentanyl is running at 1 mcg/kg/h and this is the same sedation it was being provided yesterday. The patient is on no paralytics for now. The patient is on a mechanical ventilator, on this morning's evaluation, he is on assist-control at the rate of 28 with a tidal volume of 450 and FiO2 of 50% and PEEP is 10. Blood gases from today showing a pH of 7.37 with a pCO2 of 47 and pO2 of 63. Chest x-ray from today is showing diffuse bilateral pulmonary infiltrates more so in the lower lobes bilaterally. ET tube is in a good location. Comparing this chest x-ray from yesterday, there is no major interval change in the findings are essentially stable. His peak airway pressures 28. His static pressures 24. The patient is is still on Decadron 6 mg IV every 24 hours. D- dimer today's at 13.3, his LDH level is at 1021 and the CRP is at 4.6. Note that his inflammatory markers essentially compatible to yesterday. His echoes at 13.7 with a hemoglobin of 9.2. Platelet count is 112. I took the patient off Agratoban and he was also placed on Eliquis at a dose of 5 mg by mouth twice a day. Noted the patient also is an acute kidney injury. The patient underwent dialysis and the spot he has taken 3 sessions of hemodialysis. He is producing urine output in the order of 20-30 mL an hour. His last session of hemodialysis was yesterday. In terms of his electrolytes, his BUN is at 80 with a creatinine of 3.5 and a sodium of 132 with a potassium of 4.4. He is currently on enteral feeding for dizziness support and is currently on Nepro at the rate of 50 mL an hour. He is currently off Rocephin. He is afebrile. He is requiring low-dose pressors were norepinephrine 30 dose of 0.03 mcg/kg per minute. Otherwise, no other significant events. He is afebrile. Sedation holiday was not done yesterday. IV fluids are running at 0.9 at the rate of 50 mL an hour. 07/14/2020, patient is being seen for follow-up. Sedated and still on a mechanical ventilator, probable resolving. 60 mcg/kg per minute and the patient is also on fentanyl at 1 mcg/kg/h. Adequately sedated. On a mechanical ventilator essentially vent settings being at tidal volume of 450 with an FiO2 of 50% and a PEEP of 10 and a rate of 28. These are essentially the same settings as yesterday. As far as blood gases, pO2 is at 79 with a pCO2 of 45 and a pH is at 7.35. He d-dimer is at 9.42 and the rest of the inflammatory markers show an LDH of 1062 which is stable compared to yesterday and a CRP of 87, slightly elevated compared to yesterday. His CPK is down to 231. His pro calcitonin level was at 0.58 and note that the patient has dialysis-dependent renal failure. As far as his creatinine, his creatinine today is at 3.97 with a mean of 96. He did not receive dialysis yesterday. His urine output is in order of 30-40 mL an hour and the fluid balance has been +1.1 L over the past 24 hours. His chest x-ray from today is showing lower lobe pulmonary infiltrates, essentially stable compared to yesterday. ET tube remains in excellent location. IV fluids are running at 20 cc an hour of normal saline. He is afebrile. He is tolerating his enteral feeding for nutritional support. Nore pinephrine infusion which is running at 0.05 mcg/kg per minute. He remains on Decadron 6 mg IV every 24 , platelet count is stable at 121 and 11 avoiding heparin. Patient holiday yesterday was ultimately aborted as the patient became quite agitated after several hours without any meaningful neurological response. 07/15/2020, the patient is being seen for a follow-up. Sedated with propofol running at 60 mcg/kg per minute and fentanyl is at 1 mcg/kg/h and the level of sedation essentially the same as yesterday. Remains on a mechanical ventilator. He is an assist-control mode at the rate of 24 with a tidal volume of 450 and a PEEP of 8 with a FiO2 of 50%. He had a blood gas showing pH of 7.33 with a pCO2 of 46 and pO2 of 73. Chest x-ray is unchanged, probably slightly worse on the left in terms of that the patient is seeing on today's chest x-ray. ET tube remains in a good location. Inflammatory markers from today show a d-dimer of 9 with a LDH level of 1061 and a CRP of 78, comparable to yesterday. His pro calcitonin level was low. He got dialyzed yesterday. I attempted to wean down the PEEP to 6 and this was not successful and the patient desaturated in the PEEP was brought back up to 8 yesterday. Meanwhile, he is afebrile. He is producing urine output in the order of 20-30 mL an hour. He is on normal saline at the rate of 20 mL an hour. He remains on Decadron 6 mg IV to 24 hours. His platelet count is 132 which is essentially stable and improved compared to yesterday. In terms of pressors, the patient is currently on norepinephrine infusion at 0.04 mcg/kg per minute. I will today's condition essentially unchanged and his condition essentially the same as compared to yesterday Objective - Vital Signs Vital signs: Vital Signs Temp 98.8 F 07/15/20 04:00 Pulse 76 07/15/20 07:00 Resp 24 07/15/20 07:00 BP 96/51 07/15/20 07:00 Pulse Ox 92 L 07/15/20 07:00 Intake & Output 07/14/20 07/15/20 07/15/20 18:59 06:59 18:59 Intake Total 831.905 847.456 41 Output Total 2440 425 35 Balance -1608.095 422.456 6 Weight 125.7 kg 124.6 kg Intake: IV 276 309 26 0.9 NS 240 240 20 Pressure Bag 36 69 6 Intake, IV Titration 285.905 268.456 Amount Norepinephrine 8 mg In 64.556 0 Sodium Chloride 0.9% 250 ml @ 0.05 MCG/KG/MIN 11. 01 mls/hr IV .[id number] PRAFUL Rx#:[id number] fentaNYL (PF). 1,000 mcg 93.444 95.607 In Sodium Chloride 0.9% 80 ml @ Per Protocol IV . Q0M PRAFUL Rx#:[id number] propofoL 1,000 mg In 127.905 172.849 Empty Bag 1 bag @ Titrate IV .Q0M PRAFUL Rx#: [id number] Tube Feeding 180 180 15 Other 90 90 Output: Urine 440 425 35 Hemodialysis 1999 Other: Voiding Method Indwelling Catheter Indwelling Catheter - Exam GENERAL EXAM: Intubated, sedated 59-year-old gentleman, on the mechanical ventilator, in no apparent distress. HEAD: Normocephalic. EYES: Sluggish reaction of pupils, equal size. NOSE: Clear with pink turbinates. THROAT: Oral endotracheal and gastric tube secured in place No erythema or exudates. NECK: No masses, no JVD. CHEST: No chest wall deformity. LUNGS: Equal air entry with crackles in the bilateral posterior bases CVS: S1 and S2 normal with no audible murmur, regular rhythm. ABDOMEN: No hepatosplenomegaly, normal bowel sounds, no guarding or rigidity. SPINE: No scoliosis or deformity SKIN: No rashes, some oozing from the scrotum CENTRAL NERVOUS SYSTEM: Sedated. No focal deficits, tone is normal in all 4 extremities. EXTREMITIES: Left upper extremity cool, dusky, pulseless. - Labs CBC & Chem 7: 07/15/20 03:45 07/15/20 03:45 Labs: Abnormal Lab Results - Last 24 Hours (Table) 07/14/20 07/14/20 07/15/20 Range/Units 03:50 11:07 03:45 WBC 11.6 H (3.8-10.6) k/uL RBC 2.95 L (4.30-5.90) m/uL Hgb 8.4 L (13.0-17.5) gm/dL Hct 26.3 L (39.0-53.0) % RDW 15.7 H (11.5-15.5) % Plt Count 132 L (150-450) k/uL Neutrophils # 10.6 H (1.3-7.7) k/uL Lymphocytes # 0.4 L (1.0-4.8) k/uL D-Dimer (<0.60) mg/L FEU ABG pH (7.35-7.45) ABG pCO2 (35-45) mmHg ABG pO2 (83-108) mmHg ABG Total CO2 (19-24) mmol/L ABG O2 Saturation (94-97) % Sodium (137-145) mmol/L BUN (9-20) mg/dL Creatinine (0.66-1.25) mg/dL POC Glucose (mg/dL) 101 H (75-99) mg/dL Calcium (8.4-10.2) mg/dL Ferritin 775.1 H (22.0-322.0) ng/mL ALT (4-49) U/L Lactate Dehydrogenase (313-618) U/L C-Reactive Protein (<10.0) mg/L Total Protein (6.3-8.2) g/dL Albumin (3.5-5.0) g/dL 07/15/20 07/15/20 07/15/20 Range/Units 03:45 03:45 04:03 WBC (3.8-10.6) k/uL RBC (4.30-5.90) m/uL Hgb (13.0-17.5) gm/dL Hct (39.0-53.0) % RDW (11.5-15.5) % Plt Count (150-450) k/uL Neutrophils # (1.3-7.7) k/uL Lymphocytes # (1.0-4.8) k/uL D-Dimer 9.00 H (<0.60) mg/L FEU ABG pH 7.33 L (7.35-7.45) ABG pCO2 46 H (35-45) mmHg ABG pO2 73 L (83-108) mmHg ABG Total CO2 26 H (19-24) mmol/L ABG O2 Saturation 93.3 L (94-97) % Sodium 130 L (137-145) mmol/L BUN 84 H (9-20) mg/dL Creatinine 3.73 H (0.66-1.25) mg/dL POC Glucose (mg/dL) (75-99) mg/dL Calcium 8.3 L (8.4-10.2) mg/dL Ferritin (22.0-322.0) ng/mL ALT 59 H (4-49) U/L Lactate Dehydrogenase 1061 H (313-618) U/L C-Reactive Protein 78.3 H (<10.0) mg/L Total Protein 4.5 L (6.3-8.2) g/dL Albumin 2.3 L (3.5-5.0) g/dL Assessment and Plan Plan: 1 Acute hypoxemic respiratory failure secondary to acute CoVID 19 pneumonia/pneumonitis requiring mechanical ventilation on 07/05/2020. Received a tocilizumab and convalescent plasma and the patient is currently on Decadron 6 mg every 24 hours. Chest x-ray showing bilateral lower lobe pulmonary infiltrates peripheral distribution and orotracheal tube is in a good location. Chest x-ray was noted. There is some interval worsening of the left-sided infiltrate on today's chest x-ray. Nevertheless, his PEEP is currently down to 8 with an FiO2 of 50%. Blood gases was noted. Airway pressures are showing a peak and static 26 and 24 respectively. 2 acute kidney injury secondary to Covid related ATN and the patient is currently on renal replacement therapy. Says was done yesterday and the patient received ultrafiltration of 2 L 3 severe metabolic acidosis , recovered . The patient also has hyperkalemia imp roved with hemodialysis. 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, platelets are 11 History of obstructive sleep apnea, maintained on CPAP Plan: Continue ventilator support , no changes Sedation holiday Renal replacement therapy/dialysis per nephrology Eliquis 2.5 mg by mouth twice a day, monitor platelet counts Chest x-ray and blood gas was noted Continue Decadron 6 mg IV QD HIT antibodies present, remains off Lovenox will avoid any heparin products for now and put the patient on Eliquis , platelets are stable Continue tube feedings and the patient is currently on Nepro Aranesp 40 g every week Critical Care evaluation more than 30 minutes Time with Patient: Greater than 30
[2020-07-15] MEDS: ALBUTEROL HFA INHALER INHALATION SCH ×3 (08:28→21:14)
--- NOTE | 2020-07-15 08:36 | XR ---
EXAMINATION TYPE: XR chest 1V portable DATE OF EXAM: 07/15/2020 COMPARISON: 07/14/2020 INDICATION: Assess lung TECHNIQUE: Single frontal view of the chest is obtained. FINDINGS: The heart size is normal. The pulmonary vasculature is normal. Right basilar and left lung infiltrates are present. Findings are worsening over the interval. Endotracheal tube tip is at the chato. Nasogastric tube transverses the field of view. IMPRESSION: 1. Worsening bilateral lung infiltrates.
[2020-07-15] MEDS: CHLORHEXIDINE GLUCONATE 15 ML CUP MUCOUS MEM SCH ×2 (09:13→20:41)
[2020-07-15] MEDS: SODIUM BICARBONATE TAB 650 MG TAB PO SCH ×3 (09:13→20:42)
[2020-07-15] MEDS: ARIPiprazole 5 MG TAB PO SCH ×2 (09:14→20:41)
[2020-07-15] MEDS: CHOLECALCIFEROL 25 MCG (1000 IU) TABLET PO SCH (09:14)
[2020-07-15] MEDS: APIXABAN 2.5 MG TABLET PO SCH ×2 (09:14→20:41)
[2020-07-15] MEDS: ZINC SULFATE 220 MG CAP PO SCH (09:14)
[2020-07-15] MEDS: SERTRALINE 100 MG TAB PO SCH (09:14)
[2020-07-15] MEDS: PANTOPRAZOLE 40 MG/10 ML VIAL IVP SCH ×2 (09:16→20:41)
[2020-07-15] MEDS: DEXAMETHASONE SOD PHOSPHATE 10 MG/ML 1 ML VIAL IV SCH (09:16)
--- NOTE | 2020-07-15 09:47 | P.PN ---
Subjective Progress Note Date: 07/15/20 Principal diagnosis: cold left upper extremity, acute kidney injury need for temporary hemodialysis catheter The patient is seen and examined the ICU. He remains sedated on mechanical ventilation. No acute changes through the night. He is status post temporary hemodialysis catheter placement. He has received hemodialysis without any difficulty. Bilateral upper extremities remain edematous, left hand improved flow with noted demarcation on his thumb through fourth finger. Objective - Vital Signs Vital signs: Vital Signs Temp 98.8 F 07/15/20 04:00 Pulse 76 07/15/20 07:00 Resp 24 07/15/20 07:00 BP 96/51 07/15/20 07:00 Pulse Ox 92 L 07/15/20 07:00 Intake & Output 07/14/20 07/15/20 07/15/20 18:59 06:59 18:59 Intake Total 831.905 847.456 141 Output Total 2440 425 35 Balance -1608.095 422.456 106 Weight 125.7 kg 124.6 kg Intake: IV 276 309 26 0.9 NS 240 240 20 Pressure Bag 36 69 6 Intake, IV Titration 285.905 268.456 100 Amount Norepinephrine 8 mg In 64.556 0 Sodium Chloride 0.9% 250 ml @ 0.05 MCG/KG/MIN 11. 01 mls/hr IV .[id number] PRAFUL Rx#:[id number] fentaNYL (PF). 1,000 mcg 93.444 95.607 In Sodium Chloride 0.9% 80 ml @ Per Protocol IV . Q0M PRAFUL Rx#:[id number] propofoL 1,000 mg In 127.905 172.849 100 Empty Bag 1 bag @ Titrate IV .Q0M PRAFUL Rx#: [id number] Tube Feeding 180 180 15 Other 90 90 Output: Urine 440 425 35 Hemodialysis 2000 Other: Voiding Method Indwelling Catheter Indwelling Catheter Indwelling Catheter - Exam General appearance: The patient is sedated on mechanical ventilation HET: Head is normocephalic and atraumatic. Neck: Supple without lymphadenopathy. Trachea midline. Abdomen: Soft, nontender, nondistended. Extremities: left groin with hemodialysis catheter intact without any signs of bleeding.bilateral lower extremity edema. Bilateral upper extremity edema. Left extremity with decreased edema, first through fourth finger tips cold with demarcation. Hand is warm to the touch with good capillary refill, palpable radial pulse. Neurological: sedated on mechanical ventilation - Labs CBC & Chem 7: 07/15/20 03:45 07/15/20 03:45 Labs: Abnormal Lab Results - Last 24 Hours (Table) 07/14/20 07/14/20 07/15/20 Range/Units 03:50 11:07 03:45 WBC 11.6 H (3.8-10.6) k/uL RBC 2.95 L (4.30-5.90) m/uL Hgb 8.4 L (13.0-17.5) gm/dL Hct 26.3 L (39.0-53.0) % RDW 15.7 H (11.5-15.5) % Plt Count 132 L (150-450) k/uL Neutrophils # 10.6 H (1.3-7.7) k/uL Lymphocytes # 0.4 L (1.0-4.8) k/uL D-Dimer (<0.60) mg/L FEU ABG pH (7.35-7.45) ABG pCO2 (35-45) mmHg ABG pO2 (83-108) mmHg ABG Total CO2 (19-24) mmol/L ABG O2 Saturation (94-97) % Sodium (137-145) mmol/L BUN (9-20) mg/dL Creatinine (0.66-1.25) mg/dL POC Glucose (mg/dL) 101 H (75-99) mg/dL Calcium (8.4-10.2) mg/dL Ferritin 775.1 H (22.0-322.0) ng/mL ALT (4-49) U/L Lactate Dehydrogenase (313-618) U/L C-Reactive Protein (<10.0) mg/L Total Protein (6.3-8.2) g/dL Albumin (3.5-5.0) g/dL 07/15/20 07/15/20 07/15/20 Range/Units 03:45 03:45 04:03 WBC (3.8-10.6) k/uL RBC (4.30-5.90) m/uL Hgb (13.0-17.5) gm/dL Hct (39.0-53.0) % RDW (11.5-15.5) % Plt Count (150-450) k/uL Neutrophils # (1.3-7.7) k/uL Lymphocytes # (1.0-4.8) k/uL D-Dimer 9.00 H (<0.60) mg/L FEU ABG pH 7.33 L (7.35-7.45) ABG pCO2 46 H (35-45) mmHg ABG pO2 73 L (83-108) mmHg ABG Total CO2 26 H (19-24) mmol/L ABG O2 Saturation 93.3 L (94-97) % Sodium 130 L (137-145) mmol/L BUN 84 H (9-20) mg/dL Creatinine 3.73 H (0.66-1.25) mg/dL POC Glucose (mg/dL) (75-99) mg/dL Calcium 8.3 L (8.4-10.2) mg/dL Ferritin (22.0-322.0) ng/mL ALT 59 H (4-49) U/L Lactate Dehydrogenase 1061 H (313-618) U/L C-Reactive Protein 78.3 H (<10.0) mg/L Total Protein 4.5 L (6.3-8.2) g/dL Albumin 2.3 L (3.5-5.0) g/dL Assessment and Plan Assessment: 1. Status post left temporary femoral hemodialysis catheter placement 2. Acute kidney injury 3. Left hand ischemia, microvascular occlusions, biphasic radial and ulnar signals 4. Acute hypoxic respiratory failure from covid pna 5. Thrombocytopenia, likely heparin-induced 6. Hypertension 7. Obesity 8. Obstructive sleep apnea 9. Superficial venous thrombus Plan: 1. Continue symptomatic and supportive care 2. Continue anticoagulation if tolerated 3. Continue ICU management 4. Hemodialysis as ordered per nephrology Thank you for this consultation, we will be on standby if tunneled dialysis catheter is required The impression and plan of care has been dictated as directed. Dr. Hartman I performed a history and examination of this patient, discussed the same with the dictator. I agree with the dictator's note ,documented as a scribe. Any additional findings or plans will be noted.
[2020-07-15 10:01] LABS: Ferritin 811.6 ng/mL (22.0-322.0)
--- NOTE | 2020-07-15 10:13 | P.PN ---
Subjective Patient is seen in follow-up for acute kidney injury and hyperkalemia. Intubated. On 50% FiO2. On low-dose Levophed. Urine output 30-40 mL an hour. Receiving tube feeding. Last hemodialysis on July 14. no changes overnight.. Vital signs are stable. On Levophed. General: No JVD. HEENT: Intubated. LUNGS: Breath sounds decreased. HEART: Rate and Rhythm are regular. ABDOMEN: Soft, no distention. EXTREMITITES: 1+ edema. Objective - Vital Signs Vital signs: Vital Signs Temp 99.1 F 07/15/20 08:00 Pulse 72 07/15/20 09:00 Resp 24 07/15/20 09:00 BP 96/50 07/15/20 09:00 Pulse Ox 92 L 07/15/20 09:00 Intake & Output 07/14/20 07/15/20 07/15/20 18:59 06:59 18:59 Intake Total 831.905 847.456 378.331 Output Total 2440 425 115 Balance -1608.095 422.456 263.331 Weight 125.7 kg 124.6 kg Intake: IV 276 309 95 0.9 NS 240 240 80 Pressure Bag 36 69 15 Intake, IV Titration 285.905 268.456 193.331 Amount Norepinephrine 8 mg In 64.556 0 Sodium Chloride 0.9% 250 ml @ 0.05 MCG/KG/MIN 11. 01 mls/hr IV .[id number] PRAFUL Rx#:[id number] fentaNYL (PF). 1,000 mcg 93.444 95.607 74.476 In Sodium Chloride 0.9% 80 ml @ Per Protocol IV . Q0M PRAFUL Rx#:[id number] propofoL 1,000 mg In 127.905 172.849 118.855 Empty Bag 1 bag @ Titrate IV .Q0M PRAFUL Rx#: [id number] Tube Feeding 180 180 60 Other 90 90 30 Output: Urine 440 425 115 Hemodialysis 2000 Other: Voiding Method Indwelling Catheter Indwelling Catheter Indwelling Catheter - Labs CBC & Chem 7: 07/15/20 03:45 07/15/20 03:45 Labs: Abnormal Lab Results - Last 24 Hours (Table) 07/14/20 07/14/20 07/15/20 Range/Units 03:50 11:07 03:45 WBC 11.6 H (3.8-10.6) k/uL RBC 2.95 L (4.30-5.90) m/uL Hgb 8.4 L (13.0-17.5) gm/dL Hct 26.3 L (39.0-53.0) % RDW 15.7 H (11.5-15.5) % Plt Count 132 L (150-450) k/uL Neutrophils # 10.6 H (1.3-7.7) k/uL Lymphocytes # 0.4 L (1.0-4.8) k/uL D-Dimer (<0.60) mg/L FEU ABG pH (7.35-7.45) ABG pCO2 (35-45) mmHg ABG pO2 (83-108) mmHg ABG Total CO2 (19-24) mmol/L ABG O2 Saturation (94-97) % Sodium (137-145) mmol/L BUN (9-20) mg/dL Creatinine (0.66-1.25) mg/dL POC Glucose (mg/dL) 101 H (75-99) mg/dL Calcium (8.4-10.2) mg/dL Ferritin 775.1 H (22.0-322.0) ng/mL ALT (4-49) U/L Lactate Dehydrogenase (313-618) U/L C-Reactive Protein (<10.0) mg/L Total Protein (6.3-8.2) g/dL Albumin (3.5-5.0) g/dL 07/15/20 07/15/20 07/15/20 Range/Units 03:45 03:45 04:03 WBC (3.8-10.6) k/uL RBC (4.30-5.90) m/uL Hgb (13.0-17.5) gm/dL Hct (39.0-53.0) % RDW (11.5-15.5) % Plt Count (150-450) k/uL Neutrophils # (1.3-7.7) k/uL Lymphocytes # (1.0-4.8) k/uL D-Dimer 9.00 H (<0.60) mg/L FEU ABG pH 7.33 L (7.35-7.45) ABG pCO2 46 H (35-45) mmHg ABG pO2 73 L (83-108) mmHg ABG Total CO2 26 H (19-24) mmol/L ABG O2 Saturation 93.3 L (94-97) % Sodium 130 L (137-145) mmol/L BUN 84 H (9-20) mg/dL Creatinine 3.73 H (0.66-1.25) mg/dL POC Glucose (mg/dL) (75-99) mg/dL Calcium 8.3 L (8.4-10.2) mg/dL Ferritin 811.6 H (22.0-322.0) ng/mL ALT 59 H (4-49) U/L Lactate Dehydrogenase 1061 H (313-618) U/L C-Reactive Protein 78.3 H (<10.0) mg/L Total Protein 4.5 L (6.3-8.2) g/dL Albumin 2.3 L (3.5-5.0) g/dL Assessment and Plan Plan: Assessment: 1. Acute kidney injury secondary to ATN secondary to covid-19 infection. Urine output 35-40 mL an hour. Due to persistent hyperkalemia and worsening renal function, started on hemodialysis July 10. 2. Hyperkalemia secondary to acute kidney injury and metabolic acidosis. Improved postdialysis. 3. Metabolic acidosis secondary to acute kidney injury maintained on oral bicarbonate. Stable. 4. Septic shock secondary to covid-19 pneumonia. Maintained on Levophed. 5. Acute hypoxic respiratory failure secondary to pneumonia. 6. Hyperphosphatemia secondary to acute kidney injury. Maintained on PhosLo. 7. Anemia. Component of kidney disease. Maintained on Aranesp. Elevated BUN due to kidney disease and steroids. Questionable GI bleed. Plan: Hold hemodialysis today. Continue to assess on daily basis. Maintain tube feeding. Off IV fluids. Wean FiO2 and vasopressors. Continue to monitor renal function and urine output. Stool for occult blood pending.
[2020-07-15 11:35] LABS: Glucose,Whole Blood 45 mg/dL (75-99)
[2020-07-15 11:36] LABS: Glucose,Whole Blood 101 mg/dL (75-99)
[2020-07-15] MEDS ORDERED: FUROSEMIDE 10 MG/ML 10 ML VIAL IV STA (16:19)
[2020-07-15 17:23] LABS: Glucose,Whole Blood 123 mg/dL (75-99)
--- NOTE | 2020-07-15 20:14 | P.PN ---
Subjective Progress Note Date: 07/13/20 Principal diagnosis: Acute hypoxic respiratory failure secondary to Covid pneumonia requiring mechanical ventilation Acute kidney injury requiring hemodialysis This is a pleasant 53 years old male with past medical history of hypertension, osteoarthritis, sleep apnea. Presents with respiratory distress secondary to covid pneumonia and secondary bacterial infection is suspected as well with positive sputum culture for streptococcus, group C. Patient is currently monitored in the ICU because of his respiratory failure, currently on mechanical ventilation and need a small dose of Levophed at 4 g today. Also patient has elevated troponin and he was started on heparin drip however he developed coffee-ground emesis via anicteric tube, heparin drip was stopped and hemoglobin is stable and normal at 12.4 today. Port Engineer found to his elevated troponin is secondary to his Covid infection and hypotension, Lovenox is on hold although patient has elevated d-dimer due to coffee ground vomiting. Distal sedation, his blood pressure is marginal 104/60 this morning. Pulmonary team performed closely and help with vent management, his PEEP was increased today from 15-18. His oxygen saturation is guarded at 100% with FiO2 of 70%. Patient has marginal urine output at 20 mL/h and continue with normal saline at 80 mL per hour 07/09/2020 Patient remains in critical condition in the ICU, he is sedated and on mechanical ventilation with pulmonary/critical care team followed closely and management. He still needs high PEEP at 18. Today he had suspected left hand coldness and vascular surgery consult, no intervention indicated given his critical guarded condition. He had coffee-ground emesis yesterday and no such episodes, his aspirin was held as well as his Lovenox and switch his anticoagulation into argatroban drip . 4 dropping platelets 90,to 76K today. It NT chase is pending. His creatinine is worsening with nephrology on the case and patient was started on bicarbonate drip, his normal saline at 80 mL per hour was stopped He remains on ceftriaxone 2 g daily for sputum culture positive with streptococcus group C. Also he is on zinc, vitamin D, dexamethasone, Protonix twice daily and Carafate 07/10/2020 Patient remains in the ICU intubated and sedated with pulmonary/critical care team managing his friend, currently he is on PEEP 18 dropped to 15 today by pulmonary team. Despite his history of coffee ground vomitus he was started on argatroban drip for suspected left hand ischemia . Also he is on mild septic shock secondary to bacterial superimposed infection with streptococcus group C found in the blood and sputum cultures on the top of his bilateral Covid pneumonia. He has increased troponin leak secondary to Covid and creatinine is still elevated at 4.1 and followed closely by nephrology team Patient is tachypneic at 36 and blood pressure 121/51 Labs showing trending down WBC to 12.8 K, hemoglobin dropped to 8.9 and Carafate was stopped by coronary team. Platelets are stable 70 6K yesterday and 70 8K today. C-reactive protein is down to 16. Chest x-ray showing bilateral infiltrates. D-dimer was elevated at 34 and throatcalcitonin of 0.23 He remains on ceftriaxone 2 g per ID team, on zinc, vitamin D. Bicarbonate drip,argatroban drip, Protonix twice a day. While aspirating is kept on hold 07/11/2020 Patient in the ICU intubated and sedated. Followed by several consultants Left hand is improving however it is still dusky/bluish color. Tube feeding is in home due to coffee ground emesis. Vent management per pulmonary team, currently PEEP is lowered from 15 down to 10, hit antibodies are positive. Labs showing WBC 18 K, hemoglobin 10.0, platelets 141, creatinine is stable since yesterday at 4.1, LDH is a 1055, C-reactive protein is 13 only. On 07/10 patient was started on hemodialysis for worsening kidney function and creatinine and potassium with low urine output he is still sedated with Nimbex. Tube feeding was on hold due to his history of coffee ground vomitus recently. After the patient remains on argatroban and levophed drip Platelets 141, hemoglobin down to 10.0 K, WBC down to 18 LDH is 1055 and C-reactive protein is within the reference range at 13. Patient is afebrile. In the emergency room he was started on ceftriaxone for Covid and possible superinfection. Also sodium bicarb Was stopped and switched to tablets, normal saline is ordered by primary team, continue with argatroban drip . Also patient is an Protonix and dexamethasone and vitamins. Aspirin was disc ontinued as well as Lovenox. 07/13/2020 Patient was admitted hospital due to acute hypoxic respiratory failure and is currently on mechanical ventilator. Patient also developed acute kidney injury requiring hemodialysis. Patient is sedated. Assist-control 450, FiO2 50% and PEEP of 10. Patient is requiring low-dose norepinephrine drip. Afebrile. Chest x-ray showed relatively similar mid and lower lung consolidation left greater than right. Laboratory data showed WBC 13.7 hemoglobin 9.2 platelets 112 lymphocytes 0.6 D-dimer 13.34 Sodium 132 potassium 4.4 chloride 100 BUN 18 creatinine 3.57 calcium 8.3 phosphorus 8.0 ferritin 847 bilirubin 1.9 AST 71, ALT 93 LDH 1021 CK 406 CRP 70.8 and procalcitonin 0.58. Pulmonary and nephrology is on board. Current medications reviewed. Objective - Vital Signs Vital signs: Vital Signs Temp 99.1 F 07/13/20 12:00 Pulse 100 07/13/20 14:00 Resp 31 H 07/13/20 14:00 BP 115/62 07/13/20 14:00 Pulse Ox 92 L 07/13/20 14:00 Intake & Output 07/12/20 07/13/20 07/13/20 18:59 06:59 18:59 Intake Total 4893.013 4653.159 847.561 Output Total 1425 405 305 Balance 22.859 879.159 542.561 Weight 119.8 kg 122.1 kg Intake: IV 689 583 214 Pressure Bag 39 33 84 Sodium Chloride 0.9% 1, 650 550 130 000 ml @ 50 mls/hr IV . Q20H [facility] Rx#:[id number] Intake, IV Titration 463.859 446.159 453.561 Amount Argatroban 50 mg In 7.314 Sodium Chloride 0.9% 50 ml @ 0.5 MCG/KG/MIN 3.597 mls/hr IV .[id number] PR[facility]UL Rx#:[id number] Norepinephrine 8 mg In 273.120 156.708 258.000 Sodium Chloride 0.9% 250 ml @ 0.05 MCG/KG/MIN 11. 01 mls/hr IV .[id number] PR[facility]UL Rx#:[id number] fentaNYL (PF) 1,000 mcg 83.425 In Sodium Chloride 0.9% 80 ml @ Per Protocol IV . Q0M [facility] Rx#:[id number] fentaNYL (PF). 1,000 mcg 89.451 94.842 In Sodium Chloride 0.9% 80 ml @ Per Protocol IV . Q0M PR[facility]UL Rx#:[id number] propofoL 1,000 mg In 100 200 100.719 Empty Bag 1 bag @ Titrate IV .Q0M PRAFUL Rx#: [id number] Tube Feeding 165 165 120 Other 130 90 60 Output: Urine 425 405 305 Hemodialysis 1000 Other: Voiding Method Indwelling Catheter Indwelling Catheter Indwelling Catheter - Exam - Exam -GENERAL: The patient is intubated and sedated, well nourished. HEENT: Pupils are round and equally reacting to light. No scleral icterus. No conjunctival pallor. Normocephalic, atraumatic. No pharyngeal erythema. No th yromegaly. CARDIOVASCULAR: S1 and S2 present. No murmurs, rubs, or gallops. PULMONARY: Chest is clear to auscultation, no wheezing or crackles. ABDOMEN: Soft, nontender, nondistended, normoactive bowel sounds. No palpable organomegaly. MUSCULOSKELETAL: No joint swelling or deformity. EXTREMITIES: No cyanosis, clubbing, or pedal edema. NEUROLOGICAL: Gross neurological examination did not reveal any focal deficits. SKIN: No rashes. no petechiae. - Labs CBC & Chem 7: 07/15/20 03:45 07/15/20 03:45 Labs: Abnormal Lab Results - Last 24 Hours (Table) 07/12/20 07/13/20 07/13/20 Range/Units 17:55 03:50 03:50 WBC (3.8-10.6) k/uL RBC (4.30-5.90) m/uL Hgb (13.0-17.5) gm/dL Hct (39.0-53.0) % Plt Count (150-450) k/uL Neutrophils # (1.3-7.7) k/uL Lymphocytes # (1.0-4.8) k/uL D-Dimer (<0.60) mg/L FEU ABG pCO2 (35-45) mmHg ABG pO2 (83-108) mmHg ABG HCO3 (21-25) mmol/L ABG Total CO2 (19-24) mmol/L ABG O2 Saturation (94-97) % Sodium 132 L (137-145) mmol/L BUN 80 H (9-20) mg/dL Creatinine 3.57 H (0.66-1.25) mg/dL POC Glucose (mg/dL) 120 H (75-99) mg/dL Calcium 8.3 L (8.4-10.2) mg/dL Phosphorus 8.0 H (2.5-4.5) mg/dL Ferritin 847.0 H (22.0-322.0) ng/mL Total Bilirubin 1.9 H (0.2-1.3) mg/dL AST 71 H (17-59) U/L ALT 93 H (4-49) U/L Lactate Dehydrogenase 1021 H (313-618) U/L Creatine Kinase 406 H (55-170) U/L C-Reactive Protein 70.8 H (<10.0) mg/L Total Protein 4.6 L (6.3-8.2) g/dL Albumin 2.4 L (3.5-5.0) g/dL Procalcitonin 0.58 H (0.02-0.09) ng/mL 07/13/20 07/13/20 07/13/20 Range/Units 03:50 03:50 04:22 WBC 13.7 H (3.8-10.6) k/uL RBC 3.06 L (4.30-5.90) m/uL Hgb 9.2 L (13.0-17.5) gm/dL Hct 26.0 L (39.0-53.0) % Plt Count 112 L (150-450) k/uL Neutrophils # 12.6 H (1.3-7.7) k/uL Lymphocytes # 0.6 L (1.0-4.8) k/uL D-Dimer 13.34 H (<0.60) mg/L FEU ABG pCO2 47 H (35-45) mmHg ABG pO2 63 L (83-108) mmHg ABG HCO3 27 H (21-25) mmol/L ABG Total CO2 28 H (19-24) mmol/L ABG O2 Saturation 90.3 L (94-97) % Sodium (137-145) mmol/L BUN (9-20) mg/dL Creatinine (0.66-1.25) mg/dL POC Glucose (mg/dL) (75-99) mg/dL Calcium (8.4-10.2) mg/dL Phosphorus (2.5-4.5) mg/dL Ferritin (22.0-322.0) ng/mL Total Bilirubin (0.2-1.3) mg/dL AST (17-59) U/L ALT (4-49) U/L Lactate Dehydrogenase (313-618) U/L Creatine Kinase (55-170) U/L C-Reactive Protein (<10.0) mg/L Total Protein (6.3-8.2) g/dL Albumin (3.5-5.0) g/dL Procalcitonin (0.02-0.09) ng/mL Assessment and Plan Assessment: Acute Covid pneumonia Acute hypoxic respiratory failure needing mechanical ventilation Suspected superimposed bacterial pneumonia with streptococcus Mild septic shock secondary to above especially his bacterial infection Suspected ischemia of the left hand on anticoagulation and draped Coffee ground vomiting with suspected acute GI bleed Thrombocytopenia Elevated troponin, secondary to renal function impairment, viral infection and hypotension Acute kidney injury requiring HD Plan: This is a pleasant 59 years old male who presents with Covid pneumonia, possible bacterial pneumonia, and possible GI bleed. Continue with mechanical ventilation for pulmonary/critical care team will follow the patient closely. Continue with multiple vitamin zinc and vitamin D. Continue with ceftriaxone and antibiotics.. Continue with bicarbonate Currently on argatroban drip for pulmonary team. Keep monitoring hemoglobin and platelets Infectious disease, GI and cardiology, nephrology team on the case Labs and medication were reviewed.. Continue same treatment. Continue with symptomatic treatment. Resume home medication. Monitor lytes and vitals. DVT and GI prophylaxis. Further recommendations as per clinical course of the patient DVT prophylaxis: Subcutaneous Lovenox, on hold for possible GI bleed. he is on argatroban drip GI Prophylaxis: Ppi, Protonix twice a day Prognosis is guarded Time with Patient: Greater than 30
--- NOTE | 2020-07-15 20:21 | P.PN ---
Subjective Progress Note Date: 07/14/20 Principal diagnosis: Acute hypoxic respiratory failure secondary to Covid pneumonia requiring mechanical ventilation Acute kidney injury requiring hemodialysis This is a pleasant 53 years old male with past medical history of hypertension, osteoarthritis, sleep apnea. Presents with respiratory distress secondary to covid pneumonia and secondary bacterial infection is suspected as well with positive sputum culture for streptococcus, group C. Patient is currently monitored in the ICU because of his respiratory failure, currently on mechanical ventilation and need a small dose of Levophed at 4 g today. Also patient has elevated troponin and he was started on heparin drip however he developed coffee-ground emesis via anicteric tube, heparin drip was stopped and hemoglobin is stable and normal at 12.4 today. Cement Mason Helper found to his elevated troponin is secondary to his Covid infection and hypotension, Lovenox is on hold although patient has elevated d-dimer due to coffee ground vomiting. Distal sedation, his blood pressure is marginal 104/60 this morning. Pulmonary team performed closely and help with vent management, his PEEP was increased today from 15-18. His oxygen saturation is guarded at 100% with FiO2 of 70%. Patient has marginal urine output at 20 mL/h and continue with normal saline at 80 mL per hour 07/09/2020 Patient remains in critical condition in the ICU, he is sedated and on mechanical ventilation with pulmonary/critical care team followed closely and management. He still needs high PEEP at 18. Today he had suspected left hand coldness and vascular surgery consult, no intervention indicated given his critical guarded condition. He had coffee-ground emesis yesterday and no such episodes, his aspirin was held as well as his Lovenox and switch his anticoagulation into argatroban drip . 4 dropping platelets 90,to 76K today. It NT chase is pending. His creatinine is worsening with nephrology on the case and patient was started on bicarbonate drip, his normal saline at 80 mL per hour was stopped He remains on ceftriaxone 2 g daily for sputum culture positive with streptococcus group C. Also he is on zinc, vitamin D, dexamethasone, Protonix twice daily and Carafate 07/10/2020 Patient remains in the ICU intubated and sedated with pulmonary/critical care team managing his friend, currently he is on PEEP 18 dropped to 15 today by pulmonary team. Despite his history of coffee ground vomitus he was started on argatroban drip for suspected left hand ischemia . Also he is on mild septic shock secondary to bacterial superimposed infection with streptococcus group C found in the blood and sputum cultures on the top of his bilateral Covid pneumonia. He has increased troponin leak secondary to Covid and creatinine is still elevated at 4.1 and followed closely by nephrology team Patient is tachypneic at 36 and blood pressure 121/51 Labs showing trending down WBC to 12.8 K, hemoglobin dropped to 8.9 and Carafate was stopped by coronary team. Platelets are stable 70 6K yesterday and 70 8K today. C-reactive protein is down to 16. Chest x-ray showing bilateral infiltrates. D-dimer was elevated at 34 and throatcalcitonin of 0.23 He remains on ceftriaxone 2 g per ID team, on zinc, vitamin D. Bicarbonate drip,argatroban drip, Protonix twice a day. While aspirating is kept on hold 07/11/2020 Patient in the ICU intubated and sedated. Followed by several consultants Left hand is improving however it is still dusky/bluish color. Tube feeding is in home due to coffee ground emesis. Vent management per pulmonary team, currently PEEP is lowered from 15 down to 10, hit antibodies are positive. Labs showing WBC 18 K, hemoglobin 10.0, platelets 141, creatinine is stable since yesterday at 4.1, LDH is a 1055, C-reactive protein is 13 only. On 07/10 patient was started on hemodialysis for worsening kidney function and creatinine and potassium with low urine output he is still sedated with Nimbex. Tube feeding was on hold due to his history of coffee ground vomitus recently. After the patient remains on argatroban and levophed drip Platelets 141, hemoglobin down to 10.0 K, WBC down to 18 LDH is 1055 and C-reactive protein is within the reference range at 13. Patient is afebrile. In the emergency room he was started on ceftriaxone for Covid and possible superinfection. Also sodium bicarb Was stopped and switched to tablets, normal saline is ordered by primary team, continue with argatroban drip . Also patient is an Protonix and dexamethasone and vitamins. Aspirin was disc ontinued as well as Lovenox. 07/13/2020 Patient was admitted hospital due to acute hypoxic respiratory failure and is currently on mechanical ventilator. Patient also developed acute kidney injury requiring hemodialysis. Patient is sedated. Assist-control 450, FiO2 50% and PEEP of 10. Patient is requiring low-dose norepinephrine drip. Afebrile. Chest x-ray showed relatively similar mid and lower lung consolidation left greater than right. Laboratory data showed WBC 13.7 hemoglobin 9.2 platelets 112 lymphocytes 0.6 D-dimer 13.34 Sodium 132 potassium 4.4 chloride 100 BUN 18 creatinine 3.57 calcium 8.3 phosphorus 8.0 ferritin 847 bilirubin 1.9 AST 71, ALT 93 LDH 1021 CK 406 CRP 70.8 and procalcitonin 0.58. Pulmonary and nephrology is on board. 07/14/2020 Patient is currently in MICU on mechanical ventilator and sedated. Assist- control 450 FiO2 50% and PEEP of 10 and respiratory 28. Chest x-ray showed stable bilateral lung infiltrates greater on the left. Laboratory data showed WBC 12.2 hemoglobin 8.7 platelets 121 lymphocytes 0.5 D- dimer is 9.42 BUN 96 and creatinine 3.97 calcium 8.4 ferritin 775 total bilirubin 1.7, AST 57 ALT 68 alk phos 87 LDH 1062 CPK 231 CRP 87.2 Patient is still low-dose norepinephrine drip. Continued on enteral feeding. Patient is scheduled for hemodialysis today. Patient is being continued dexamethasone, Eliquis and multivitamins. Pulmonary nephrology is following. Current medications reviewed. Objective - Vital Signs Vital signs: Vital Signs Temp 98.1 F 07/14/20 16:11 Pulse 96 07/14/20 19:00 Resp 34 H 07/14/20 19:00 BP 140/67 07/14/20 19:00 Pulse Ox 86 L 07/14/20 19:00 Intake & Output 07/14/20 07/14/20 07/15/20 06:59 18:59 06:59 Intake Total 838.046 831.905 116.651 Output Total 445 2440 30 Balance 393.046 -1608.095 86.651 Weight 125.7 kg 125.7 kg Intake: IV 276 276 23 0.9 NS 220 240 20 Pressure Bag 56 36 3 Intake, IV Titration 292.046 285.905 78.651 Amount Norepinephrine 8 mg In 64.556 Sodium Chloride 0.9% 250 ml @ 0.05 MCG/KG/MIN 11. 01 mls/hr IV .[id number] [facility] Rx#:[id number] fentaNYL (PF). 1,000 mcg 92.046 93.444 6.556 In Sodium Chloride 0.9% 80 ml @ Per Protocol IV . Q0M [facility] Rx#:[id number] propofoL 1,000 mg In 200 127.905 72.095 Empty Bag 1 bag @ Titrate IV .Q0M PRAFUL Rx#: [id number] Tube Feeding 180 180 15 Other 90 90 Output: Urine 445 440 30 Hemodialysis 1999 Other: Voiding Method Indwelling Catheter Indwelling Catheter - Exam - Exam -GENERAL: The patient is intubated and sedated, well nourished. HEENT: Pupils are round and equally reacting to light. No scleral icterus. No conjunctival pallor. Normocephalic, atraumatic. No pharyngeal erythema. No thyromegaly. CARDIOVASCULAR: S1 and S2 present. No murmurs, rubs, or gallops. PULMONARY: Chest is clear to auscultation, no wheezing or crackles. ABDOMEN: Soft, nontender, nondistended, normoactive bowel sounds. No palpable organomegaly. MUSCULOSKELETAL: No joint swelling or deformity. EXTREMITIES: No cyanosis, clubbing, or pedal edema. NEUROLOGICAL: Gross neurological examination did not reveal any focal deficits. SKIN: No rashes. no petechiae. - Labs CBC & Chem 7: 07/15/20 03:45 07/15/20 03:45 Labs: Abnormal Lab Results - Last 24 Hours (Table) 07/13/20 07/14/20 07/14/20 Range/Units 23:10 03:50 03:50 WBC 12.2 H (3.8-10.6) k/uL RBC 3.03 L (4.30-5.90) m/uL Hgb 8.7 L (13.0-17.5) gm/dL Hct 26.6 L (39.0-53.0) % Plt Count 121 L (150-450) k/uL Neutrophils # 11.2 H (1.3-7.7) k/uL Lymphocytes # 0.5 L (1.0-4.8) k/uL D-Dimer 9.42 H (<0.60) mg/L FEU ABG pO2 (83-108) mmHg ABG Total CO2 (19-24) mmol/L Sodium (137-145) mmol/L BUN (9-20) mg/dL Creatinine (0.66-1.25) mg/dL POC Glucose (mg/dL) 111 H (75-99) mg/dL Ferritin (22.0-322.0) ng/mL Total Bilirubin (0.2-1.3) mg/dL ALT (4-49) U/L Lactate Dehydrogenase (313-618) U/L Creatine Kinase (55-170) U/L C-Reactive Protein (<10.0) mg/L Total Protein (6.3-8.2) g/dL Albumin (3.5-5.0) g/dL 07/14/20 07/14/20 07/14/20 Range/Units 03:50 03:55 11:07 WBC (3.8-10.6) k/uL RBC (4.30-5.90) m/uL Hgb (13.0-17.5) gm/dL Hct (39.0-53.0) % Plt Count (150-450) k/uL Neutrophils # (1.3-7.7) k/uL Lymphocytes # (1.0-4.8) k/uL D-Dimer (<0.60) mg/L FEU ABG pO2 79 L (83-108) mmHg ABG Total CO2 26 H (19-24) mmol/L Sodium 132 L (137-145) mmol/L BUN 96 H (9-20) mg/dL Creatinine 3.97 H (0.66-1.25) mg/dL POC Glucose (mg/dL) 101 H (75-99) mg/dL Ferritin 775.1 H (22.0-322.0) ng/mL Total Bilirubin 1.7 H (0.2-1.3) mg/dL ALT 68 H (4-49) U/L Lactate Dehydrogenase 1062 H (313-618) U/L Creatine Kinase 231 H (55-170) U/L C-Reactive Protein 87.2 H (<10.0) mg/L Total Protein 4.5 L (6.3-8.2) g/dL Albumin 2.3 L (3.5-5.0) g/dL Assessment and Plan Assessment: Acute Covid pneumonia Acute hypoxic respiratory failure needing mechanical ventilation Acute kidney injury Due to ATN. Currently requiring HD Severe metabolic acidosis and hyperkalemia improved with hemodialysis Coagulase-negative staph aureus bacteremia Hypotension/septic shock requiring low-dose norepinephrine. Left upper extremity negative for DVT. Superficial thrombus in the left cephalic vein and left base leg pain Heparin-induced thrombocytopenia. Changed to argatroban and currently on Eliquis. Suspected ischemia of the left hand on anticoagulation and draped Coffee ground vomiting with suspected acute GI bleed Thrombocytopenia Elevated troponin, secondary to renal function impairment, viral infection and hypotension Plan: This is a pleasant 59 years old male who presents with Covid pneumonia, possible bacterial pneumonia, and possible GI bleed. Continue with mechanical ventilation for pulmonary/critical care team will follow the patient closely. Continue with multiple vitamin zinc and vitamin D, Eliquis. abx Decd. Continue with bicarbonate Currently on argatroban drip for pulmonary team. Keep monitoring hemoglobin and platelets Infectious disease, GI and cardiology, nephrology team on the case Labs and medication were reviewed.. Continue same treatment. Continue with symptomatic treatment. Resume home medication. Monitor lytes and vitals. DVT and GI prophylaxis. Further recommendations as per clinical course of the patient DVT prophylaxis:Eliquis 2.5mg BID GI Prophylaxis: Ppi, Protonix twice a day Prognosis is guarded Time with Patient: Greater than 30
--- NOTE | 2020-07-15 20:25 | P.PN ---
Subjective Progress Note Date: 07/15/20 Principal diagnosis: Acute hypoxic respiratory failure secondary to Covid pneumonia requiring mechanical ventilation Acute kidney injury requiring hemodialysis This is a pleasant 53 years old male with past medical history of hypertension, osteoarthritis, sleep apnea. Presents with respiratory distress secondary to covid pneumonia and secondary bacterial infection is suspected as well with positive sputum culture for streptococcus, group C. Patient is currently monitored in the ICU because of his respiratory failure, currently on mechanical ventilation and need a small dose of Levophed at 4 g today. Also patient has elevated troponin and he was started on heparin drip however he developed coffee-ground emesis via anicteric tube, heparin drip was stopped and hemoglobin is stable and normal at 12.4 today. Navigating Officer found to his elevated troponin is secondary to his Covid infection and hypotension, Lovenox is on hold although patient has elevated d-dimer due to coffee ground vomiting. Distal sedation, his blood pressure is marginal 104/60 this morning. Pulmonary team performed closely and help with vent management, his PEEP was increased today from 15-18. His oxygen saturation is guarded at 100% with FiO2 of 70%. Patient has marginal urine output at 20 mL/h and continue with normal saline at 80 mL per hour 07/09/2020 Patient remains in critical condition in the ICU, he is sedated and on mechanical ventilation with pulmonary/critical care team followed closely and management. He still needs high PEEP at 18. Today he had suspected left hand coldness and vascular surgery consult, no intervention indicated given his critical guarded condition. He had coffee-ground emesis yesterday and no such episodes, his aspirin was held as well as his Lovenox and switch his anticoagulation into argatroban drip . 4 dropping platelets 90,to 76K today. It NT chase is pending. His creatinine is worsening with nephrology on the case and patient was started on bicarbonate drip, his normal saline at 80 mL per hour was stopped He remains on ceftriaxone 2 g daily for sputum culture positive with streptococcus group C. Also he is on zinc, vitamin D, dexamethasone, Protonix twice daily and Carafate 07/10/2020 Patient remains in the ICU intubated and sedated with pulmonary/critical care team managing his friend, currently he is on PEEP 18 dropped to 15 today by pulmonary team. Despite his history of coffee ground vomitus he was started on argatroban drip for suspected left hand ischemia . Also he is on mild septic shock secondary to bacterial superimposed infection with streptococcus group C found in the blood and sputum cultures on the top of his bilateral Covid pneumonia. He has increased troponin leak secondary to Covid and creatinine is still elevated at 4.1 and followed closely by nephrology team Patient is tachypneic at 36 and blood pressure 121/51 Labs showing trending down WBC to 12.8 K, hemoglobin dropped to 8.9 and Carafate was stopped by coronary team. Platelets are stable 70 6K yesterday and 70 8K today. C-reactive protein is down to 16. Chest x-ray showing bilateral infiltrates. D-dimer was elevated at 34 and throatcalcitonin of 0.23 He remains on ceftriaxone 2 g per ID team, on zinc, vitamin D. Bicarbonate drip,argatroban drip, Protonix twice a day. While aspirating is kept on hold 07/11/2020 Patient in the ICU intubated and sedated. Followed by several consultants Left hand is improving however it is still dusky/bluish color. Tube feeding is in home due to coffee ground emesis. Vent management per pulmonary team, currently PEEP is lowered from 15 down to 10, hit antibodies are positive. Labs showing WBC 18 K, hemoglobin 10.0, platelets 141, creatinine is stable since yesterday at 4.1, LDH is a 1055, C-reactive protein is 13 only. On 07/10 patient was started on hemodialysis for worsening kidney function and creatinine and potassium with low urine output he is still sedated with Nimbex. Tube feeding was on hold due to his history of coffee ground vomitus recently. After the patient remains on argatroban and levophed drip Platelets 141, hemoglobin down to 10.0 K, WBC down to 18 LDH is 1055 and C-reactive protein is within the reference range at 13. Patient is afebrile. In the emergency room he was started on ceftriaxone for Covid and possible superinfection. Also sodium bicarb Was stopped and switched to tablets, normal saline is ordered by primary team, continue with argatroban drip . Also patient is an Protonix and dexamethasone and vitamins. Aspirin was disc ontinued as well as Lovenox. 07/13/2020 Patient was admitted hospital due to acute hypoxic respiratory failure and is currently on mechanical ventilator. Patient also developed acute kidney injury requiring hemodialysis. Patient is sedated. Assist-control 450, FiO2 50% and PEEP of 10. Patient is requiring low-dose norepinephrine drip. Afebrile. Chest x-ray showed relatively similar mid and lower lung consolidation left greater than right. Laboratory data showed WBC 13.7 hemoglobin 9.2 platelets 112 lymphocytes 0.6 D-dimer 13.34 Sodium 132 potassium 4.4 chloride 100 BUN 18 creatinine 3.57 calcium 8.3 phosphorus 8.0 ferritin 847 bilirubin 1.9 AST 71, ALT 93 LDH 1021 CK 406 CRP 70.8 and procalcitonin 0.58. Pulmonary and nephrology is on board. 07/14/2020 Patient is currently in MICU on mechanical ventilator and sedated. Assist- control 450 FiO2 50% and PEEP of 10 and respiratory 28. Chest x-ray showed stable bilateral lung infiltrates greater on the left. Laboratory data showed WBC 12.2 hemoglobin 8.7 platelets 121 lymphocytes 0.5 D- dimer is 9.42 BUN 96 and creatinine 3.97 calcium 8.4 ferritin 775 total bilirubin 1.7, AST 57 ALT 68 alk phos 87 LDH 1062 CPK 231 CRP 87.2 Patient is still low-dose norepinephrine drip. Continued on enteral feeding. Patient is scheduled for hemodialysis today. Patient is being continued dexamethasone, Eliquis and multivitamins. Pulmonary nephrology is following. 07/15/2020 Patient is currently in the MICU on mechanical ventilator. AC 450, FiO2 50% and PEEP of 8. Chest x-ray showed worsening bilateral lung infiltrates. Patient has been afebrile and requiring norepinephrine low-dose pressor support. Laboratory data showed WBC 11.6 hemoglobin 8.4 RDW 15.7 platelets 132 D-dimer is 9.0 sodium 130 potassium 4.4 bicarb is 22 BUN 84 and creatinine 3.73 ferritin 81 1.6 LDH 1061 CRP 78.3. Patient is being continued on dexamethasone and Eliquis and multivitamins. Continued on enteral tube feeding. Condition unchanged from yesterday. Current medications reviewed. Active Medications Generic Name Dose Route Start Last Admin Trade Name Freq PRN Reason Stop Dose Admin Albuterol Sulfate 2 puff 07/05/20 08:00 07/15/20 16:07 Albuterol Hfa Inhaler INHALATION 2 puff RT-TID PRAFUL Administration Apixaban 2.5 mg 07/14/20 09:00 07/15/20 09:14 Apixaban 2.5 Mg Tablet PO 2.5 mg BID PRAFUL Administration Aripiprazole 5 mg 07/04/20 21:00 07/15/20 09:14 Aripiprazole 5 Mg Tab PO 5 mg BID PRAFUL Administration Calcium Acetate 667 mg 07/11/20 12:30 07/15/20 17:26 Calcium Acetate 667 Mg Tab PO 667 mg TID-W/MEALS PRAFUL Administration Chlorhexidine Gluconate 15 ml 07/07/20 09:00 07/15/20 09:13 Chlorhexidine Gluconate 15 Ml Cup MUCOUS MEM 15 ml BID PRAFUL Administration Cholecalciferol 125 mcg 07/05/20 09:00 07/15/20 09:14 Cholecalciferol 25 Mcg (1000 Iu) Tablet PO 125 mcg DAILY PRAFUL Administration Darbepoetin Rodrigo 40 mcg 07/14/20 11:00 07/14/20 12:14 Darbepoetin Rodrigo 40 Mcg/0.4 Ml Syringe SQ 40 mcg Q7D PRAFUL Administration Dexamethasone Sodium Phosphate 6 mg 07/05/20 09:00 07/15/20 09:16 Dexamethasone Sod Phosphate 10 Mg/Ml 1 Ml Vial IV 6 mg DAILY PRAFUL Administration Propofol 1,000 mg/ IV Solution 100 mls @ 0 mls/hr 07/05/20 04:00 07/15/20 13:52 IV 60 mcg/kg/min .Q0M PRAFUL 44.856 mls/hr Administration Protocol Titrate Norepinephrine Bitartrate 8 mg 258 mls @ 11.01 mls/hr 07/07/20 12:30 07/15/20 15:35 / Sodium Chloride IV 0.04 mcg/kg/min .[id number] PRAFUL 8.808 mls/hr Titration Protocol 0.05 MCG/KG/MIN Fentanyl Citrate 1,000 mcg/ 100 mls @ 0 mls/hr 07/12/20 16:00 07/15/20 09:45 Sodium Chloride IV 0 mcg/kg/hr .Q0M PRAFUL 0 mls/hr Titration Protocol Per Protocol Insulin Aspart 0 unit 07/11/20 12:00 07/15/20 17:26 Insulin Aspart (Novolog) 100 Unit/Ml Vial SQ Not Given Q6H [facility] Protocol Metoclopramide HCl 10 mg 07/10/20 12:00 07/15/20 17:26 Metoclopramide 5 Mg/Ml 2 Ml Vial IVP 10 mg Q6HR PRAFUL Administration Pantoprazole Sodium 40 mg 07/05/20 21:00 07/15/20 09:16 Pantoprazole 40 Mg/10 Ml Vial IVP 40 mg BID PRAFUL Administration Sertraline HCl 200 mg 07/05/20 09:00 07/15/20 09:14 Sertraline 100 Mg Tab PO 200 mg DAILY PRAFUL Administration Sodium Bicarbonate 650 mg 07/11/20 09:45 07/15/20 15:15 Sodium Bicarbonate Tab 650 Mg Tab PO 650 mg TID PRAFUL Administration Zinc Sulfate 220 mg 07/04/20 21:00 07/15/20 09:14 Zinc Sulfate 220 Mg Cap PO 220 mg DAILY PRAFUL Administration Objective - Vital Signs Vital signs: Vital Signs Temp 99.1 F 07/15/20 08:00 Pulse 92 07/15/20 13:00 Resp 26 H 07/15/20 13:00 BP 147/70 07/15/20 13:00 Pulse Ox 87 L 07/15/20 13:00 Intake & Output 07/14/20 07/15/20 07/15/20 18:59 06:59 18:59 Intake Total 831.905 847.456 672.679 Output Total 2440 425 240 Balance -1608.095 422.456 432.679 Weight 125.7 kg 124.6 kg Intake: IV 276 309 164 0.9 NS 240 240 140 Pressure Bag 36 69 24 Intake, IV Titration 285.905 268.456 343.679 Amount Norepinephrine 8 mg In 64.556 0 116.706 Sodium Chloride 0.9% 250 ml @ 0.05 MCG/KG/MIN 11. 01 mls/hr IV .[id number] PRAFUL Rx#:[id number] fentaNYL (PF). 1,000 mcg 93.444 95.607 74.476 In Sodium Chloride 0.9% 80 ml @ Per Protocol IV . Q0M PRAFUL Rx#:[id number] propofoL 1,000 mg In 127.905 172.849 152.497 Empty Bag 1 bag @ Titrate IV .Q0M PRAFUL Rx#: [id number] Tube Feeding 180 180 105 Other 90 90 60 Output: Urine 440 425 240 Hemodialysis 1999 Other: Voiding Method Indwelling Catheter Indwelling Catheter Indwelling Catheter - Exam - Exam -GENERAL: The patient is intubated and sedated, well nourished. HEENT: Pupils are round and equally reacting to light. No scleral icterus. No conjunctival pallor. Normocephalic, atraumatic. No pharyngeal erythema. No thyromegaly. CARDIOVASCULAR: S1 and S2 present. No murmurs, rubs, or gallops. PULMONARY: Chest is clear to auscultation, no wheezing or crackles. ABDOMEN: Soft, nontender, nondistended, normoactive bowel sounds. No palpable organomegaly. MUSCULOSKELETAL: No joint swelling or deformity. EXTREMITIES: No cyanosis, clubbing, or pedal edema. NEUROLOGICAL: Gross neurological examination did not reveal any focal deficits. SKIN: No rashes. no petechiae. - Labs CBC & Chem 7: 07/15/20 03:45 07/15/20 03:45 Labs: Abnormal Lab Results - Last 24 Hours (Table) 07/15/20 07/15/20 07/15/20 Range/Units 03:45 03:45 03:45 WBC 11.6 H (3.8-10.6) k/uL RBC 2.95 L (4.30-5.90) m/uL Hgb 8.4 L (13.0-17.5) gm/dL Hct 26.3 L (39.0-53.0) % RDW 15.7 H (11.5-15.5) % Plt Count 132 L (150-450) k/uL Neutrophils # 10.6 H (1.3-7.7) k/uL Lymphocytes # 0.4 L (1.0-4.8) k/uL D-Dimer 9.00 H (<0.60) mg/L FEU ABG pH (7.35-7.45) ABG pCO2 (35-45) mmHg ABG pO2 (83-108) mmHg ABG Total CO2 (19-24) mmol/L ABG O2 Saturation (94-97) % Sodium 130 L (137-145) mmol/L BUN 84 H (9-20) mg/dL Creatinine 3.73 H (0.66-1.25) mg/dL POC Glucose (mg/dL) (75-99) mg/dL Calcium 8.3 L (8.4-10.2) mg/dL Ferritin 811.6 H (22.0-322.0) ng/mL ALT 59 H (4-49) U/L Lactate Dehydrogenase 1061 H (313-618) U/L C-Reactive Protein 78.3 H (<10.0) mg/L Total Protein 4.5 L (6.3-8.2) g/dL Albumin 2.3 L (3.5-5.0) g/dL 07/15/20 07/15/20 07/15/20 Range/Units 04:03 11:33 11:35 WBC (3.8-10.6) k/uL RBC (4.30-5.90) m/uL Hgb (13.0-17.5) gm/dL Hct (39.0-53.0) % RDW (11.5-15.5) % Plt Count (150-450) k/uL Neutrophils # (1.3-7.7) k/uL Lymphocytes # (1.0-4.8) k/uL D-Dimer (<0.60) mg/L FEU ABG pH 7.33 L (7.35-7.45) ABG pCO2 46 H (35-45) mmHg ABG pO2 73 L (83-108) mmHg ABG Total CO2 26 H (19-24) mmol/L ABG O2 Saturation 93.3 L (94-97) % Sodium (137-145) mmol/L BUN (9-20) mg/dL Creatinine (0.66-1.25) mg/dL POC Glucose (mg/dL) 45 L 101 H (75-99) mg/dL Calcium (8.4-10.2) mg/dL Ferritin (22.0-322.0) ng/mL ALT (4-49) U/L Lactate Dehydrogenase (313-618) U/L C-Reactive Protein (<10.0) mg/L Total Protein (6.3-8.2) g/dL Albumin (3.5-5.0) g/dL Assessment and Plan Assessment: Acute Covid pneumonia Acute hypoxic respiratory failure needing mechanical ventilation Acute kidney injury Due to ATN. Currently requiring HD Severe metabolic acidosis and hyperkalemia improved with hemodialysis Coagulase-negative staph aureus bacteremia Hypotension/septic shock requiring low-dose norepinephrine. Left upper extremity negative for DVT. Superficial thrombus in the left cep halic vein and left base leg pain Heparin-induced thrombocytopenia. Changed to argatroban and currently on Eliquis. Suspected ischemia of the left hand on anticoagulation and draped Coffee ground vomiting with suspected acute GI bleed Thrombocytopenia Elevated troponin, secondary to renal function impairment, viral infection and hypotension Plan: This is a pleasant 59 years old male who presents with Covid pneumonia, possible bacterial pneumonia, and possible GI bleed. Continue with mechanical ventilation for pulmonary/critical care team will follow the patient closely. Continue with multiple vitamin zinc and vitamin D, Eliquis. abx Decd. Continue with bicarbonate Keep monitoring hemoglobin and platelets Infectious disease, GI and cardiology, nephrology team on the case Labs and medication were reviewed. Continue with symptomatic treatment. Resume home medication. Monitor lytes and vitals. DVT and GI prophylaxis. Further recommendations as per clinical course of the patient DVT prophylaxis:Eliquis 2.5mg BID GI Prophylaxis: Ppi, Protonix twice a day Prognosis is guarded Time with Patient: Greater than 30
[2020-07-15 22:45] LABS: Glucose,Whole Blood 96 mg/dL (75-99)
[2020-07-16] MEDS: fentaNYL (PF). 1,000 MCG in SODIUM CHLORIDE 0.9% 80 ML IV SCH ×4 (02:53→17:11)
[2020-07-16 03:44] LABS: ABG Base Excess -3.5 mmol/L; ABG HCO3 23 mmol/L (21-25); ABG Oxygen Saturation 91.7 % (94-97); ABG PCO2 45 mmHg (35-45); ABG PH 7.31 (7.35-7.45); ABG PO2 68 mmHg (83-108); ABG TCO2 24 mmol/L (19-24); Allen Test Performed? Yes
--- NOTE | 2020-07-16 03:57 | XR ---
EXAM: XR Chest, 2 Views CLINICAL HISTORY: ITS.REASON XR Reason: ICU Management TECHNIQUE: Frontal and lateral views of the chest. COMPARISON: 07/15/2020 FINDINGS: Diffuse bilateral patchy involving the left lung and right base consistent with multifocal infection. Blunting of the bilateral costophrenic angles which may be due to small pleural effusions. No pneumothorax. Endotracheal tube terminates 2.8 cm above the level of the chato. Nasogastric tube terminates below [id number] in the left upper quadrant. IMPRESSION: 1. Unchanged appearance of patchy opacities involving the left lung and right base. 2. Stable lines and tubes.
[2020-07-16 04:06] LABS: Basophils % (A) 0 %; Eosinophils # (A) 0.1 k/uL (0-0.7); Eosinophils % (A) 1 %; HCT 26.9 % (39.0-53.0); HGB 9.5 gm/dL (13.0-17.5); Lymphocytes # (A) 0.6 k/uL (1.0-4.8); Lymphocytes % (A) 6 %; MCH 30.7 pg (25.0-35.0); MCHC 35.1 g/dL (31.0-37.0); MCV 87.4 fL (80.0-100.0); Monocytes # (A) 0.4 k/uL (0-1.0); Monocytes % (A) 3 %; Neutrophils # (A) 10.3 k/uL (1.3-7.7); Neutrophils % (A) 89 %; Platelet Count 134 k/uL (150-450); RBC 3.08 m/uL (4.30-5.90); RDW 15.3 % (11.5-15.5); WBC 11.6 k/uL (3.8-10.6)
[2020-07-16 04:23] LABS: Albumin 2.5 g/dL (3.5-5.0); C Reactive Protein 62.7 mg/L (<10.0); Calcium 8.6 mg/dL (8.4-10.2); Potassium 4.1 mmol/L (3.5-5.1); Total Bilirubin 1.1 mg/dL (0.2-1.3); Total Protein 4.9 g/dL (6.3-8.2)
[2020-07-16] MEDS: NOREPINEPHRINE 8 MG in SODIUM CHLORIDE 0.9% 250 ML IV SCH (04:27)
[2020-07-16 04:31] LABS: D-Dimer 9.95 mg/L FEU (<0.60)
[2020-07-16 05:37] LABS: Glucose,Whole Blood 100 mg/dL (75-99)
[2020-07-16] MEDS: INSULIN ASPART (NovoLOG) 100 UNIT/ML VIAL SQ SCH ×3 (05:37→17:47)
[2020-07-16] MEDS: METOCLOPRAMIDE 5 MG/ML 2 ML VIAL IVP SCH ×3 (06:37→17:48)
[2020-07-16] MEDS: CALCIUM ACETATE 667 MG TAB PO SCH ×3 (06:38→16:37)
--- NOTE | 2020-07-16 08:13 | P.PN ---
Subjective Progress Note Date: 07/16/20 The patient is seen today 07/12/2020 in follow-up in the intensive care unit. He remains intubated, sedated on the mechanical ventilator at assist control mode of a rate of 36, tidal volume 450, FiO2 40% and a PEEP of 10. Morning blood gases reveal pO2 of 69, pCO2 41, pH 7.35. He remains sedated on propofol at 60 mcg/kg/m, fentanyl at 1 mcg/kg/h, norepinephrine at 0.09 mcg/kg//min, the patient is currently on 0.9 saline at rate of 50 mL an hour. The patient has been off Nimbex since yesterday. He is continued on Argatroban at 0.5 mcg/kg/m. Being nourished with Nepro at 15 ML's per hour. He did receive hemodialysis yesterday with 1 L removed. Chest x-ray reveals mild bibasilar infiltrates. Sputum cultures positive for beta-hemolytic strep, group C. White count 18.1. Hemoglobin 10.6. Platelet count 141. D-dimer 19.69. Sodium 133. Potassium 4.7. Creatinine 4.14. LDH 1067, C-reactive protein 24. Remains on antibiotics in the form of ceftriaxone. Bronchodilators. Vitamin supplements. Dexamethasone. 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 The platelet count is stable and the platelet count is up to 136. On 07/12/2020, the patient is being seen for follow-up. The patient is a 59-year-old obese male patient with a BMI of 36.2 with known history of obstructive sleep apnea, presented with COVID 19 related pneumonia patient is currently intubated on a mechanical ventilator. The patient has been on a mechanical ventilator since 07/05/2020. 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 During the course of his treatment, the patient developed an acute kidney injury secondary to ATN secondary to "with 19 infection. Urine output was improving and the patient's urine output was in order of 20-25 mL an hour. Due to persistent hyperkalemia and worsening renal function, the patient was started on hemodialysis on 07/10/2020. The potassium level improved post-hemodialysis. The patient also had significant metabolic acidosis and the patient was given bicarb infusion. Electrolytes are being monitored. The patient got dialyzed yesterday and this was his second hemodialysis. Nephrology is on the case. He is currently on Decadron 6 mg IV every 24 hours. His chest x-ray is showing patchy by the pulmonary infiltrates in lower lobes, slightly worsening in the chest x-ray findings on today's evaluation mainly in the peripheries and ET tube is in a good location. The patient remains on a mechanical ventilator assist control mode. He is on Nepro at 60 mL an hour. 07/13/2020, I'm seeing this patient for a follow-up. This is a case of a 59-year-old male patient with Covid 19 related pneumonia and acute kidney injury currently on hemodialysis. Worn-out, the patient is sedated and this morning the patient is currently on propofol running at 6 60 mcg/kg per minute and fentanyl is running at 1 mcg/kg/h and this is the same sedation it was being provided yesterday. The patient is on no paralytics for now. The patient is on a mechanical ventilator, on this morning's evaluation, he is on assist-control at the rate of 28 with a tidal volume of 450 and FiO2 of 50% and PEEP is 10. Blood gases from today showing a pH of 7.37 with a pCO2 of 47 and pO2 of 63. Chest x-ray from today is showing diffuse bilateral pulmonary infiltrates more so in the lower lobes bilaterally. ET tube is in a good location. Comparing this chest x-ray from yesterday, there is no major interval change in the findings are essentially stable. His peak airway pressures 28. His static pressures 24. The patient is is still on Decadron 6 mg IV every 24 hours. D- dimer today's at 13.3, his LDH level is at 1021 and the CRP is at 4.6. Note that his inflammatory markers essentially compatible to yesterday. His echoes at 13.7 with a hemoglobin of 9.2. Platelet count is 112. I took the patient off Agratoban and he was also placed on Eliquis at a dose of 5 mg by mouth twice a day. Noted the patient also is an acute kidney injury. The patient underwent dialysis and the spot he has taken 3 sessions of hemodialysis. He is producing urine output in the order of 20-30 mL an hour. His last session of hemodialysis was yesterday. In terms of his electrolytes, his BUN is at 80 with a creatinine of 3.5 and a sodium of 132 with a potassium of 4.4. He is currently on enteral feeding for dizziness support and is currently on Nepro at the rate of 50 mL an hour. He is currently off Rocephin. He is afebrile. He is requiring low-dose pressors were norepinephrine 30 dose of 0.03 mcg/kg per minute. Otherwise, no other significant events. He is afebrile. Sedation holiday was not done yesterday. IV fluids are running at 0.9 at the rate of 50 mL an hour. 07/14/2020, patient is being seen for follow-up. Sedated and still on a mechanical ventilator, probable resolving. 60 mcg/kg per minute and the patient is also on fentanyl at 1 mcg/kg/h. Adequately sedated. On a mechanical ventilator essentially vent settings being at tidal volume of 450 with an FiO2 of 50% and a PEEP of 10 and a rate of 28. These are essentially the same settings as yesterday. As far as blood gases, pO2 is at 79 with a pCO2 of 45 and a pH is at 7.35. He d-dimer is at 9.42 and the rest of the inflammatory markers show an LDH of 1062 which is stable compared to yesterday and a CRP of 87, slightly elevated compared to yesterday. His CPK is down to 231. His pro calcitonin level was at 0.58 and note that the patient has dialysis-dependent renal failure. As far as his creatinine, his creatinine today is at 3.97 with a mean of 96. He did not receive dialysis yesterday. His urine output is in order of 30-40 mL an hour and the fluid balance has been +1.1 L over the past 24 hours. His chest x-ray from today is showing lower lobe pulmonary infiltrates, essentially stable compared to yesterday. ET tube remains in excellent location. IV fluids are running at 20 cc an hour of normal saline. He is afebrile. He is tolerating his enteral feeding for nutritional support. Nore pinephrine infusion which is running at 0.05 mcg/kg per minute. He remains on Decadron 6 mg IV every 24 , platelet count is stable at 121 and 11 avoiding heparin. Patient holiday yesterday was ultimately aborted as the patient became quite agitated after several hours without any meaningful neurological response. 07/15/2020, the patient is being seen for a follow-up. Sedated with propofol running at 60 mcg/kg per minute and fentanyl is at 1 mcg/kg/h and the level of sedation essentially the same as yesterday. Remains on a mechanical ventilator. He is an assist-control mode at the rate of 24 with a tidal volume of 450 and a PEEP of 8 with a FiO2 of 50%. He had a blood gas showing pH of 7.33 with a pCO2 of 46 and pO2 of 73. Chest x-ray is unchanged, probably slightly worse on the left in terms of that the patient is seeing on today's chest x-ray. ET tube remains in a good location. Inflammatory markers from today show a d-dimer of 9 with a LDH level of 1061 and a CRP of 78, comparable to yesterday. His pro calcitonin level was low. He got dialyzed yesterday. I attempted to wean down the PEEP to 6 and this was not successful and the patient desaturated in the PEEP was brought back up to 8 yesterday. Meanwhile, he is afebrile. He is producing urine output in the order of 20-30 mL an hour. He is on normal saline at the rate of 20 mL an hour. He remains on Decadron 6 mg IV to 24 hours. His platelet count is 132 which is essentially stable and improved compared to yesterday. In terms of pressors, the patient is currently on norepinephrine infusion at 0.04 mcg/kg per minute. I will today's condition essentially unchanged and his condition essentially the same as compared to yesterday 07/16/2020, remains on a mechanical ventilator on propofol at the rate of 60 mcg/kg per minute and fentanyl is at 2 mcg/kg/h. He remains off paralytics. At around 6:00 this morning, the patient had some oxygen desaturation. Based on that, I increased his FiO2 up to 60%. Currently is an assist-control mode rate of 28 with a tidal volume of 450 and a PEEP of 8 chest x-ray still showing diffuse bilateral pulmonary infiltrates left more than right. The blood gas shows a pH of 7.31 with a pCO2 of 45 and pO2 of 68. This was on FiO2 of 70%. Inflammatory markers show a d-dimer of 9.9 with a LDH level of 1103 and a CRP level of 62. The patient is on Decadron 6 mg IV every 24 hours. The patient is also on anticoagulation with Eliquis 2.5 mg by mouth twice a day. His platelet counts is 135. The chest x-ray findings are obviously worse and there is some worsening in the evaluation in the right lung compared to yesterday. Note that the patient did not get dialyzed yesterday. Today is a dialysis day for him. He is also on norepinephrine infusion running at 0.08 mcg/kg per minute. There is enough to maintain his blood pressure. He is receiving enteral feeding for discharge support and currently is on Nepro at a rate of 50 mL an hour which is currently at goal. No other significant events. Is adequately sedated for now. Objective - Vital Signs Vital signs: Vital Signs Temp 99.7 F H 07/16/20 04:00 Pulse 81 07/16/20 07:00 Resp 24 07/16/20 07:00 BP 100/55 07/16/20 07:00 Pulse Ox 93 L 07/16/20 07:00 Intake & Output 07/15/20 07/16/20 07/16/20 18:59 06:59 18:59 Intake Total 992.679 775.943 88 Output Total 520 815 80 Balance 472.679 -39.057 8 Weight 128.2 kg Intake: IV 279 276 23 0.9 NS 240 240 20 Pressure Bag 39 36 3 Intake, IV Titration 443.679 229.943 Amount Norepinephrine 8 mg In 116.706 76.738 Sodium Chloride 0.9% 250 ml @ 0.05 MCG/KG/MIN 11. 01 mls/hr IV .[id number] PRAFUL Rx#:[id number] fentaNYL (PF). 1,000 mcg 74.476 49.717 In Sodium Chloride 0.9% 80 ml @ Per Protocol IV . Q0M PRAFUL Rx#:[id number] propofoL 1,000 mg In 252.497 103.488 Empty Bag 1 bag @ Titrate IV .Q0M PRAFUL Rx#: [id number] Tube Feeding 180 180 15 Other 90 90 50 Output: Urine 520 815 80 Other: Voiding Method Indwelling Catheter Indwelling Catheter - Exam GENERAL EXAM: Intubated, sedated 59-year-old gentleman, on the mechanical ventilator, in no apparent distress. HEAD: Normocephalic. EYES: Sluggish reaction of pupils, equal size. NOSE: Clear with pink turbinates. THROAT: Oral endotracheal and gastric tube secured in place No erythema or exudates. NECK: No masses, no JVD. CHEST: No chest wall deformity. LUNGS: Equal air entry with crackles in the bilateral posterior bases CVS: S1 and S2 normal with no audible murmur, regular rhythm. ABDOMEN: No hepatosplenomegaly, normal bowel sounds, no guarding or rigidity. SPINE: No scoliosis or deformity SKIN: No rashes, some oozing from the scrotum CENTRAL NERVOUS SYSTEM: Sedated. No focal deficits, tone is normal in all 4 extremities. EXTREMITIES: Left upper extremity cool, the left hand reveals palpable pulses in his radial artery and the color changes and improved significantly. He has equal and symmetrical pulses in lower extremities bilaterally. There is some increased edema. - Labs CBC & Chem 7: 07/16/20 03:35 07/16/20 03:35 Labs: Abnormal Lab Results - Last 24 Hours (Table) 07/15/20 07/15/20 07/15/20 Range/Units 03:45 11:33 11:35 WBC (3.8-10.6) k/uL RBC (4.30-5.90) m/uL Hgb (13.0-17.5) gm/dL Hct (39.0-53.0) % Plt Count (150-450) k/uL Neutrophils # (1.3-7.7) k/uL Lymphocytes # (1.0-4.8) k/uL Fibrinogen (200-500) mg/dL D-Dimer (<0.60) mg/L FEU ABG pH (7.35-7.45) ABG pO2 (83-108) mmHg ABG O2 Saturation (94-97) % Sodium (137-145) mmol/L Carbon Dioxide (22-30) mmol/L BUN (9-20) mg/dL Creatinine (0.66-1.25) mg/dL POC Glucose (mg/dL) 45 L 101 H (75-99) mg/dL Ferritin 811.6 H (22.0-322.0) ng/mL ALT (4-49) U/L Lactate Dehydrogenase (313-618) U/L C-Reactive Protein (<10.0) mg/L Total Protein (6.3-8.2) g/dL Albumin (3.5-5.0) g/dL 07/15/20 07/16/20 07/16/20 Range/Units 17:20 03:35 03:35 WBC 11.6 H (3.8-10.6) k/uL RBC 3.08 L (4.30-5.90) m/uL Hgb 9.5 L (13.0-17.5) gm/dL Hct 26.9 L (39.0-53.0) % Plt Count 134 L (150-450) k/uL Neutrophils # 10.3 H (1.3-7.7) k/uL Lymphocytes # 0.6 L (1.0-4.8) k/uL Fibrinogen 565 H (200-500) mg/dL D-Dimer 9.95 H (<0.60) mg/L FEU ABG pH (7.35-7.45) ABG pO2 (83-108) mmHg ABG O2 Saturation (94-97) % Sodium (137-145) mmol/L Carbon Dioxide (22-30) mmol/L BUN (9-20) mg/dL Creatinine (0.66-1.25) mg/dL POC Glucose (mg/dL) 123 H (75-99) mg/dL Ferritin (22.0-322.0) ng/mL ALT (4-49) U/L Lactate Dehydrogenase (313-618) U/L C-Reactive Protein (<10.0) mg/L Total Protein (6.3-8.2) g/dL Albumin (3.5-5.0) g/dL 07/16/20 07/16/20 07/16/20 Range/Units 03:35 03:39 05:35 WBC (3.8-10.6) k/uL RBC (4.30-5.90) m/uL Hgb (13.0-17.5) gm/dL Hct (39.0-53.0) % Plt Count (150-450) k/uL Neutrophils # (1.3-7.7) k/uL Lymphocytes # (1.0-4.8) k/uL Fibrinogen (200-500) mg/dL D-Dimer (<0.60) mg/L FEU ABG pH 7.31 L (7.35-7.45) ABG pO2 68 L (83-108) mmHg ABG O2 Saturation 91.7 L (94-97) % Sodium 133 L (137-145) mmol/L Carbon Dioxide 21 L (22-30) mmol/L BUN 94 H (9-20) mg/dL Creatinine 3.93 H (0.66-1.25) mg/dL POC Glucose (mg/dL) 100 H (75-99) mg/dL Ferritin (22.0-322.0) ng/mL ALT 52 H (4-49) U/L Lactate Dehydrogenase 1103 H (313-618) U/L C-Reactive Protein 62.7 H (<10.0) mg/L Total Protein 4.9 L (6.3-8.2) g/dL Albumin 2.5 L (3.5-5.0) g/dL Assessment and Plan Plan: 1 Acute hypoxemic respiratory failure secondary to acute CoVID 19 pneumonia/pneumonitis requiring mechanical ventilation on 07/05/2020. Received a tocilizumab and convalescent plasma and the patient is currently on Decadron 6 mg every 24 hours. Chest x-ray showing bilateral lower lobe pulmonary infiltrates peripheral distribution and orotracheal tube is in a good location. Chest x-ray was noted. There is some interval worsening of the left-sided infiltrate on today's chest x-ray. There is also some interval worsening in aeration on the right. Oxygenation has been worse and the patient is up to 70% FiO2 with a PEEP of 8. Hemodynamically he is requiring low-dose pressors. He remains on Decadron. Remains on Eliquis 2.5 mg by mouth twice a day. He does have some beta hemolytic strep in the sputum. Could be normal judy versus infection. We'll put the patient IV Rocephin also. His murray ALLERGIC patient should be able to tolerate cephalosporins. Administer 1 g of Rocephin every 24 hours. 2 acute kidney injury secondary to Covid related ATN and the patient is currently on renal replacement therapy. 3 severe metabolic acidosis , recovered . The patient also has hyperkalemia improved with hemodialysis. 4 History of blindness 5 hypotension currently on pressors and the patient is on a low dose of norepinephrine infusion, currently on minimal dose of norepinephrine infusion 6 Osteoarthritis 7 history of hypertension 8 Hyperkalemia 9 Cool, dusky left upper extremity negative for DVT, however, there is superficial thrombus in the left cephalic vein and left basilic, there is improved in the arterial flow and the pulses in the left upper extremity. Plate let counts are stable and the patient is currently on Eliquis 2.5 mg mg by mouth twice a day. 10 Heparin-induced thrombocytopenia currently agratroban and the patient is currently on Eliquis 2.5 mg twice a day to monitor platelet counts are stable 11 History of obstructive sleep apnea, maintained on CPAP Plan: Continue ventilator support , no changes Sedation holiday post dialysis Renal replacement therapy/dialysis today Eliquis 2.5 mg by mouth twice a day, monitor platelet counts in the counts are stable for now Chest x-ray and blood gas was noted Continue Decadron 6 mg IV QD HIT antibodies present, remains off Lovenox will avoid any heparin products for now and put the patient on Eliquis , platelets are stable Continue tube feedings and the patient is currently on Nepro Aranesp 40 g every week Pulses in the left upper extremity improved Wean off pressors and possibly discontinue Prognosis poor baseline above-mentioned comorbidities Critical Care evaluation more than 30 minutes Time with Patient: Greater than 30
[2020-07-16] MEDS: ALBUTEROL HFA INHALER INHALATION SCH ×4 (08:24→21:00)
[2020-07-16] MEDS: CHLORHEXIDINE GLUCONATE 15 ML CUP MUCOUS MEM SCH ×2 (09:34→20:05)
[2020-07-16] MEDS: ARIPiprazole 5 MG TAB PO SCH ×2 (09:34→20:11)
[2020-07-16] MEDS: APIXABAN 2.5 MG TABLET PO SCH ×2 (09:34→20:05)
[2020-07-16] MEDS: DEXAMETHASONE SOD PHOSPHATE 10 MG/ML 1 ML VIAL IV SCH (09:34)
[2020-07-16] MEDS: PANTOPRAZOLE 40 MG/10 ML VIAL IVP SCH ×2 (09:34→20:05)
[2020-07-16] MEDS: SERTRALINE 100 MG TAB PO SCH (09:35)
[2020-07-16] MEDS: CHOLECALCIFEROL 25 MCG (1000 IU) TABLET PO SCH (09:35)
[2020-07-16] MEDS: ZINC SULFATE 220 MG CAP PO SCH (09:35)
[2020-07-16] MEDS: SODIUM BICARBONATE TAB 650 MG TAB PO SCH ×3 (09:35→20:05)
--- NOTE | 2020-07-16 10:25 | P.PN ---
Subjective Patient is seen in follow-up for acute kidney injury and hyperkalemia. Intubated. On 60% FiO2. Remains on Levophed. Urine output 30 cc an hour. Receiving tube feeding. Vital signs are stable. On Levophed. General: No JVD. HEENT: Intubated. LUNGS: Breath sounds decreased. HEART: Rate and Rhythm are regular. ABDOMEN: Soft, no distention. EXTREMITITES: 1+ edema. Objective - Vital Signs Vital signs: Vital Signs Temp 98.7 F 07/16/20 08:00 Pulse 78 07/16/20 10:00 Resp 24 07/16/20 10:00 BP 94/62 07/16/20 10:00 Pulse Ox 93 L 07/16/20 07:00 Intake & Output 07/15/20 07/16/20 07/16/20 18:59 06:59 18:59 Intake Total 992.679 775.943 314.437 Output Total 520 815 155 Balance 472.679 -39.057 159.437 Weight 128.2 kg Intake: IV 279 276 92 0.9 NS 240 240 80 Pressure Bag 39 36 12 Intake, IV Titration 443.679 229.943 97.437 Amount Norepinephrine 8 mg In 116.706 76.738 Sodium Chloride 0.9% 250 ml @ 0.05 MCG/KG/MIN 11. 01 mls/hr IV .[id number] PR[facility] Rx#:[id number] fentaNYL (PF). 1,000 mcg 74.476 49.717 97.437 In Sodium Chloride 0.9% 80 ml @ Per Protocol IV . Q0M PR[facility]UL Rx#:[id number] propofoL 1,000 mg In 252.497 103.488 Empty Bag 1 bag @ Titrate IV .Q0M PRAFUL Rx#: [id number] Tube Feeding 180 180 75 Other 90 90 50 Output: Urine 520 815 155 Other: Voiding Method Indwelling Catheter Indwelling Catheter Indwelling Catheter - Labs CBC & Chem 7: 07/16/20 03:35 07/16/20 03:35 Labs: Abnormal Lab Results - Last 24 Hours (Table) 07/15/20 07/15/20 07/15/20 Range/Units 11:33 11:35 17:20 WBC (3.8-10.6) k/uL RBC (4.30-5.90) m/uL Hgb (13.0-17.5) gm/dL Hct (39.0-53.0) % Plt Count (150-450) k/uL Neutrophils # (1.3-7.7) k/uL Lymphocytes # (1.0-4.8) k/uL Fibrinogen (200-500) mg/dL D-Dimer (<0.60) mg/L FEU ABG pH (7.35-7.45) ABG pO2 (83-108) mmHg ABG O2 Saturation (94-97) % Sodium (137-145) mmol/L Carbon Dioxide (22-30) mmol/L BUN (9-20) mg/dL Creatinine (0.66-1.25) mg/dL POC Glucose (mg/dL) 45 L 101 H 123 H (75-99) mg/dL Ferritin (22.0-322.0) ng/mL ALT (4-49) U/L Lactate Dehydrogenase (313-618) U/L C-Reactive Protein (<10.0) mg/L Total Protein (6.3-8.2) g/dL Albumin (3.5-5.0) g/dL 07/16/20 07/16/20 07/16/20 Range/Units 03:35 03:35 03:35 WBC 11.6 H (3.8-10.6) k/uL RBC 3.08 L (4.30-5.90) m/uL Hgb 9.5 L (13.0-17.5) gm/dL Hct 26.9 L (39.0-53.0) % Plt Count 134 L (150-450) k/uL Neutrophils # 10.3 H (1.3-7.7) k/uL Lymphocytes # 0.6 L (1.0-4.8) k/uL Fibrinogen 565 H (200-500) mg/dL D-Dimer 9.95 H (<0.60) mg/L FEU ABG pH (7.35-7.45) ABG pO2 (83-108) mmHg ABG O2 Saturation (94-97) % Sodium 133 L (137-145) mmol/L Carbon Dioxide 21 L (22-30) mmol/L BUN 94 H (9-20) mg/dL Creatinine 3.93 H (0.66-1.25) mg/dL POC Glucose (mg/dL) (75-99) mg/dL Ferritin 729.0 H (22.0-322.0) ng/mL ALT 52 H (4-49) U/L Lactate Dehydrogenase 1103 H (313-618) U/L C-Reactive Protein 62.7 H (<10.0) mg/L Total Protein 4.9 L (6.3-8.2) g/dL Albumin 2.5 L (3.5-5.0) g/dL 07/16/20 07/16/20 Range/Units 03:39 05:35 WBC (3.8-10.6) k/uL RBC (4.30-5.90) m/uL Hgb (13.0-17.5) gm/dL Hct (39.0-53.0) % Plt Count (150-450) k/uL Neutrophils # (1.3-7.7) k/uL Lymphocytes # (1.0-4.8) k/uL Fibrinogen (200-500) mg/dL D-Dimer (<0.60) mg/L FEU ABG pH 7.31 L (7.35-7.45) ABG pO2 68 L (83-108) mmHg ABG O2 Saturation 91.7 L (94-97) % Sodium (137-145) mmol/L Carbon Dioxide (22-30) mmol/L BUN (9-20) mg/dL Creatinine (0.66-1.25) mg/dL POC Glucose (mg/dL) 100 H (75-99) mg/dL Ferritin (22.0-322.0) ng/mL ALT (4-49) U/L Lactate Dehydrogenase (313-618) U/L C-Reactive Protein (<10.0) mg/L Total Protein (6.3-8.2) g/dL Albumin (3.5-5.0) g/dL Assessment and Plan Plan: Assessment: 1. Acute kidney injury secondary to ATN secondary to covid-19 infection. Urine output about 30 mL an hour. Due to persistent hyperkalemia and worsening renal function, started on hemodialysis July 10. 2. Hyperkalemia secondary to acute kidney injury and metabolic acidosis. Improved postdialysis. 3. Metabolic acidosis secondary to acute kidney injury maintained on oral bicarbonate. Stable. 4. Septic shock secondary to covid-19 pneumonia. Maintained on Levophed. 5. Acute hypoxic respiratory failure secondary to pneumonia. 6. Hyperphosphatemia secondary to acute kidney injury. Maintained on PhosLo. 7. Anemia. Component of kidney disease. Maintained on Aranesp. Elevated BUN due to kidney disease and steroids. Questionable GI bleed. Hemoglobin 9.5 today. Plan: Hemodialysis today with goal 1-1-1/2 L ultrafiltration. Maintain tube feeding. Off IV fluids. Wean FiO2 and vasopressors. Continue to monitor renal function and urine output. Monitor for renal recovery. Assess daily for need for renal replacement therapy.
--- NOTE | 2020-07-16 12:16 | P.PN ---
Subjective Progress Note Date: 07/16/20 Principal diagnosis: cold left upper extremity, acute kidney injury need for temporary hemodialysis catheter The patient is seen and examined the ICU. He remains sedated on mechanical ventilation. No acute changes through the night. He is status post temporary hemodialysis catheter placement. He has received hemodialysis without any difficulty. Bilateral upper extremities remain edematous, left hand improved flow with noted demarcation on his thumb through fourth finger. Objective - Vital Signs Vital signs: Vital Signs Temp 98.7 F 07/16/20 08:00 Pulse 77 07/16/20 11:00 Resp 24 07/16/20 11:00 BP 97/50 07/16/20 11:00 Pulse Ox 93 L 07/16/20 07:00 Intake & Output 07/15/20 07/16/20 07/16/20 18:59 06:59 18:59 Intake Total 992.679 775.943 352.437 Output Total 520 815 185 Balance 472.679 -39.057 167.437 Weight 128.2 kg 128.2 kg Intake: IV 279 276 115 0.9 NS 240 240 100 Pressure Bag 39 36 15 Intake, IV Titration 443.679 229.943 97.437 Amount Norepinephrine 8 mg In 116.706 76.738 Sodium Chloride 0.9% 250 ml @ 0.05 MCG/KG/MIN 11. 01 mls/hr IV .[id number] PRAFUL Rx#:[id number] fentaNYL (PF). 1,000 mcg 74.476 49.717 97.437 In Sodium Chloride 0.9% 80 ml @ Per Protocol IV . Q0M PRAFUL Rx#:[id number] propofoL 1,000 mg In 252.497 103.488 Empty Bag 1 bag @ Titrate IV .Q0M PRAFUL Rx#: [id number] Tube Feeding 180 180 90 Other 90 90 50 Output: Urine 520 815 185 Other: Voiding Method Indwelling Catheter Indwelling Catheter Indwelling Catheter # Bowel Movements 1 - Exam General appearance: The patient is sedated on mechanical ventilation HET: Head is normocephalic and atraumatic. Neck: Supple without lymphadenopathy. Trachea midline. Abdomen: Soft, nontender, nondistended. Extremities: left groin with hemodialysis catheter intact without any signs of bleeding.bilateral lower extremity edema. Bilateral upper extremity edema. Left extremity with decreased edema, first through fourth finger tips cold with demarcation. Hand is warm to the touch with good capillary refill, palpable radial pulse. Neurological: sedated on mechanical ventilation - Labs CBC & Chem 7: 07/16/20 03:35 07/16/20 03:35 Labs: Abnormal Lab Results - Last 24 Hours (Table) 07/15/20 07/16/20 07/16/20 Range/Units 17:20 03:35 03:35 WBC 11.6 H (3.8-10.6) k/uL RBC 3.08 L (4.30-5.90) m/uL Hgb 9.5 L (13.0-17.5) gm/dL Hct 26.9 L (39.0-53.0) % Plt Count 134 L (150-450) k/uL Neutrophils # 10.3 H (1.3-7.7) k/uL Lymphocytes # 0.6 L (1.0-4.8) k/uL Fibrinogen 565 H (200-500) mg/dL D-Dimer 9.95 H (<0.60) mg/L FEU ABG pH (7.35-7.45) ABG pO2 (83-108) mmHg ABG O2 Saturation (94-97) % Sodium (137-145) mmol/L Carbon Dioxide (22-30) mmol/L BUN (9-20) mg/dL Creatinine (0.66-1.25) mg/dL POC Glucose (mg/dL) 123 H (75-99) mg/dL Ferritin (22.0-322.0) ng/mL ALT (4-49) U/L Lactate Dehydrogenase (313-618) U/L C-Reactive Protein (<10.0) mg/L Total Protein (6.3-8.2) g/dL Albumin (3.5-5.0) g/dL 07/16/20 07/16/20 07/16/20 Range/Units 03:35 03:39 05:35 WBC (3.8-10.6) k/uL RBC (4.30-5.90) m/uL Hgb (13.0-17.5) gm/dL Hct (39.0-53.0) % Plt Count (150-450) k/uL Neutrophils # (1.3-7.7) k/uL Lymphocytes # (1.0-4.8) k/uL Fibrinogen (200-500) mg/dL D-Dimer (<0.60) mg/L FEU ABG pH 7.31 L (7.35-7.45) ABG pO2 68 L (83-108) mmHg ABG O2 Saturation 91.7 L (94-97) % Sodium 133 L (137-145) mmol/L Carbon Dioxide 21 L (22-30) mmol/L BUN 94 H (9-20) mg/dL Creatinine 3.93 H (0.66-1.25) mg/dL POC Glucose (mg/dL) 100 H (75-99) mg/dL Ferritin 729.0 H (22.0-322.0) ng/mL ALT 52 H (4-49) U/L Lactate Dehydrogenase 1103 H (313-618) U/L C-Reactive Protein 62.7 H (<10.0) mg/L Total Protein 4.9 L (6.3-8.2) g/dL Albumin 2.5 L (3.5-5.0) g/dL Assessment and Plan Assessment: 1. Status post left temporary femoral hemodialysis catheter placement 2. Acute kidney injury 3. Left hand ischemia, microvascular occlusions, biphasic radial and ulnar signals 4. Acute hypoxic respiratory failure from covid pna 5. Thrombocytopenia, likely heparin-induced 6. Hypertension 7. Obesity 8. Obstructive sleep apnea 9. Superficial venous thrombus Plan: 1. Continue symptomatic and supportive care 2. Continue anticoagulation as ordered 3. Continue ICU management 4. Hemodialysis as ordered per nephrology Thank you for this consultation, we will be on standby if tunneled dialysis catheter is required The impression and plan of care has been dictated as directed. Dr. Hartman I performed a history and examination of this patient, discussed the same with the dictator. I agree with the dictator's note ,documented as a scribe. Any additional findings or plans will be noted.
[2020-07-16 12:25] LABS: Glucose,Whole Blood 113 mg/dL (75-99)
[2020-07-16 17:25] LABS: Glucose,Whole Blood 119 mg/dL (75-99)
--- NOTE | 2020-07-16 21:42 | P.PN ---
Subjective Progress Note Date: 07/16/20 Principal diagnosis: Acute hypoxic respiratory failure secondary to Covid pneumonia requiring mechanical ventilation Acute kidney injury requiring hemodialysis This is a pleasant 53 years old male with past medical history of hypertension, osteoarthritis, sleep apnea. Presents with respiratory distress secondary to covid pneumonia and secondary bacterial infection is suspected as well with positive sputum culture for streptococcus, group C. Patient is currently monitored in the ICU because of his respiratory failure, currently on mechanical ventilation and need a small dose of Levophed at 4 g today. Also patient has elevated troponin and he was started on heparin drip however he developed coffee-ground emesis via anicteric tube, heparin drip was stopped and hemoglobin is stable and normal at 12.4 today. [employer] found to his elevated troponin is secondary to his Covid infection and hypotension, Lovenox is on hold although patient has elevated d-dimer due to coffee ground vomiting. Distal sedation, his blood pressure is marginal 104/60 this morning. Pulmonary team performed closely and help with vent management, his PEEP was increased today from 15-18. His oxygen saturation is guarded at 100% with FiO2 of 70%. Patient has marginal urine output at 20 mL/h and continue with normal saline at 80 mL per hour 07/09/2020 Patient remains in critical condition in the ICU, he is sedated and on mechanical ventilation with pulmonary/critical care team followed closely and management. He still needs high PEEP at 18. Today he had suspected left hand coldness and vascular surgery consult, no intervention indicated given his critical guarded condition. He had coffee-ground emesis yesterday and no such episodes, his aspirin was held as well as his Lovenox and switch his anticoagulation into argatroban drip . 4 dropping platelets 90,to 76K today. It NT chase is pending. His creatinine is worsening with nephrology on the case and patient was started on bicarbonate drip, his normal saline at 80 mL per hour was stopped He remains on ceftriaxone 2 g daily for sputum culture positive with streptococcus group C. Also he is on zinc, vitamin D, dexamethasone, Protonix twice daily and Carafate 07/10/2020 Patient remains in the ICU intubated and sedated with pulmonary/critical care team managing his friend, currently he is on PEEP 18 dropped to 15 today by pulmonary team. Despite his history of coffee ground vomitus he was started on argatroban drip for suspected left hand ischemia . Also he is on mild septic shock secondary to bacterial superimposed infection with streptococcus group C found in the blood and sputum cultures on the top of his bilateral Covid pneumonia. He has increased troponin leak secondary to Covid and creatinine is still elevated at 4.1 and followed closely by nephrology team Patient is tachypneic at 36 and blood pressure 121/51 Labs showing trending down WBC to 12.8 K, hemoglobin dropped to 8.9 and Carafate was stopped by coronary team. Platelets are stable 70 6K yesterday and 70 8K today. C-reactive protein is down to 16. Chest x-ray showing bilateral infiltrates. D-dimer was elevated at 34 and throatcalcitonin of 0.23 He remains on ceftriaxone 2 g per ID team, on zinc, vitamin D. Bicarbonate drip,argatroban drip, Protonix twice a day. While aspirating is kept on hold 07/11/2020 Patient in the ICU intubated and sedated. Followed by several consultants Left hand is improving however it is still dusky/bluish color. Tube feeding is in home due to coffee ground emesis. Vent management per pulmonary team, currently PEEP is lowered from 15 down to 10, hit antibodies are positive. Labs showing WBC 18 K, hemoglobin 10.0, platelets 141, creatinine is stable since yesterday at 4.1, LDH is a 1055, C-reactive protein is 13 only. On 07/10 patient was started on hemodialysis for worsening kidney function and creatinine and potassium with low urine output he is still sedated with Nimbex. Tube feeding was on hold due to his history of coffee ground vomitus recently. After the patient remains on argatroban and levophed drip Platelets 141, hemoglobin down to 10.0 K, WBC down to 18 LDH is 1055 and C-reactive protein is within the reference range at 13. Patient is afebrile. In the emergency room he was started on ceftriaxone for Covid and possible superinfection. Also sodium bicarb Was stopped and switched to tablets, normal saline is ordered by primary team, continue with argatroban drip . Also patient is an Protonix and dexamethasone and vitamins. Aspirin was disc ontinued as well as Lovenox. 07/13/2020 Patient was admitted hospital due to acute hypoxic respiratory failure and is currently on mechanical ventilator. Patient also developed acute kidney injury requiring hemodialysis. Patient is sedated. Assist-control 450, FiO2 50% and PEEP of 10. Patient is requiring low-dose norepinephrine drip. Afebrile. Chest x-ray showed relatively similar mid and lower lung consolidation left greater than right. Laboratory data showed WBC 13.7 hemoglobin 9.2 platelets 112 lymphocytes 0.6 D-dimer 13.34 Sodium 132 potassium 4.4 chloride 100 BUN 18 creatinine 3.57 calcium 8.3 phosphorus 8.0 ferritin 847 bilirubin 1.9 AST 71, ALT 93 LDH 1021 CK 406 CRP 70.8 and procalcitonin 0.58. Pulmonary and nephrology is on board. 07/14/2020 Patient is currently in MICU on mechanical ventilator and sedated. Assist- control 450 FiO2 50% and PEEP of 10 and respiratory 28. Chest x-ray showed stable bilateral lung infiltrates greater on the left. Laboratory data showed WBC 12.2 hemoglobin 8.7 platelets 121 lymphocytes 0.5 D- dimer is 9.42 BUN 96 and creatinine 3.97 calcium 8.4 ferritin 775 total bilirubin 1.7, AST 57 ALT 68 alk phos 87 LDH 1062 CPK 231 CRP 87.2 Patient is still low-dose norepinephrine drip. Continued on enteral feeding. Patient is scheduled for hemodialysis today. Patient is being continued dexamethasone, Eliquis and multivitamins. Pulmonary nephrology is following. 07/15/2020 Patient is currently in the MICU on mechanical ventilator. AC 450, FiO2 50% and PEEP of 8. Chest x-ray showed worsening bilateral lung infiltrates. Patient has been afebrile and requiring norepinephrine low-dose pressor support. Laboratory data showed WBC 11.6 hemoglobin 8.4 RDW 15.7 platelets 132 D-dimer is 9.0 sodium 130 potassium 4.4 bicarb is 22 BUN 84 and creatinine 3.73 ferritin 81 1.6 LDH 1061 CRP 78.3. Patient is being continued on dexamethasone and Eliquis and multivitamins. Continued on enteral tube feeding. Condition unchanged from yesterday. 07/16/2020 Patient is currently on mechanical ventilator and sedated. This is controlled for 50 respiration 28 and PEEP of 8. FiO2 70%. Chest x-ray showed unchanged appearance of patchy opacities involving the left lung and right base. Stable lines and tubes. Overnight patient was hypotensive and started back on Levophed drip. Patient is being dialyzed today. Currently on tube feeding. Laboratory data showed WBC 11.6 hemoglobin 9.5 platelets 134 neutrophils 10.3 and lymphocytes 0.6 D-dimer level is 9.95 Sodium 133 potassium 4.1 BUN 91 creatinine 3.93 ferritin 729 AST 49 ALT 52 alk phos 108 lactic acid 1103 CRP 62.7 Current medications reviewed. Objective - Vital Signs Vital signs: Vital Signs Temp 97.6 F 07/16/20 12:00 Pulse 73 07/16/20 14:00 Resp 24 07/16/20 14:00 BP 113/63 07/16/20 14:00 Pulse Ox 93 L 07/16/20 07:00 Intake & Output 07/15/20 07/16/20 07/16/20 18:59 06:59 18:59 Intake Total 992.679 874.199 461.437 Output Total 520 815 325 Balance 472.679 59.199 136.437 Weight 128.2 kg 128.2 kg Intake: IV 279 276 184 0.9 NS 240 240 160 Pressure Bag 39 36 24 Intake, IV Titration 443.679 328.199 97.437 Amount Norepinephrine 8 mg In 116.706 76.738 Sodium Chloride 0.9% 250 ml @ 0.05 MCG/KG/MIN 11. 01 mls/hr IV .[id number] PRAFUL Rx#:[id number] fentaNYL (PF). 1,000 mcg 74.476 49.717 97.437 In Sodium Chloride 0.9% 80 ml @ Per Protocol IV . Q0M [facility]UL Rx#:[id number] propofoL 1,000 mg In 252.497 201.744 Empty Bag 1 bag @ Titrate IV .Q0M PRAFUL Rx#: [id number] Tube Feeding 180 180 130 Other 90 90 50 Output: Urine 520 815 325 Other: Voiding Method Indwelling Catheter Indwelling Catheter Indwelling Catheter # Bowel Movements 1 - Exam - Exam -GENERAL: The patient is intubated and sedated, well nourished. HEENT: Pupils are round and equally reacting to light. No scleral icterus. No conjunctival pallor. Normocephalic, atraumatic. No pharyngeal erythema. No thyr omegaly. CARDIOVASCULAR: S1 and S2 present. No murmurs, rubs, or gallops. PULMONARY: Chest is clear to auscultation, no wheezing or crackles. ABDOMEN: Soft, nontender, nondistended, normoactive bowel sounds. No palpable organomegaly. MUSCULOSKELETAL: No joint swelling or deformity. EXTREMITIES: No cyanosis, clubbing, or pedal edema. NEUROLOGICAL: Gross neurological examination did not reveal any focal deficits. SKIN: No rashes. no petechiae. - Labs CBC & Chem 7: 07/16/20 03:35 07/16/20 03:35 Labs: Abnormal Lab Results - Last 24 Hours (Table) 07/15/20 07/16/20 07/16/20 Range/Units 17:20 03:35 03:35 WBC 11.6 H (3.8-10.6) k/uL RBC 3.08 L (4.30-5.90) m/uL Hgb 9.5 L (13.0-17.5) gm/dL Hct 26.9 L (39.0-53.0) % Plt Count 134 L (150-450) k/uL Neutrophils # 10.3 H (1.3-7.7) k/uL Lymphocytes # 0.6 L (1.0-4.8) k/uL Fibrinogen 565 H (200-500) mg/dL D-Dimer 9.95 H (<0.60) mg/L FEU ABG pH (7.35-7.45) ABG pO2 (83-108) mmHg ABG O2 Saturation (94-97) % Sodium (137-145) mmol/L Carbon Dioxide (22-30) mmol/L BUN (9-20) mg/dL Creatinine (0.66-1.25) mg/dL POC Glucose (mg/dL) 123 H (75-99) mg/dL Ferritin (22.0-322.0) ng/mL ALT (4-49) U/L Lactate Dehydrogenase (313-618) U/L C-Reactive Protein (<10.0) mg/L Total Protein (6.3-8.2) g/dL Albumin (3.5-5.0) g/dL 07/16/20 07/16/20 07/16/20 Range/Units 03:35 03:39 05:35 WBC (3.8-10.6) k/uL RBC (4.30-5.90) m/uL Hgb (13.0-17.5) gm/dL Hct (39.0-53.0) % Plt Count (150-450) k/uL Neutrophils # (1.3-7.7) k/uL Lymphocytes # (1.0-4.8) k/uL Fibrinogen (200-500) mg/dL D-Dimer (<0.60) mg/L FEU ABG pH 7.31 L (7.35-7.45) ABG pO2 68 L (83-108) mmHg ABG O2 Saturation 91.7 L (94-97) % Sodium 133 L (137-145) mmol/L Carbon Dioxide 21 L (22-30) mmol/L BUN 94 H (9-20) mg/dL Creatinine 3.93 H (0.66-1.25) mg/dL POC Glucose (mg/dL) 100 H (75-99) mg/dL Ferritin 729.0 H (22.0-322.0) ng/mL ALT 52 H (4-49) U/L Lactate Dehydrogenase 1103 H (313-618) U/L C-Reactive Protein 62.7 H (<10.0) mg/L Total Protein 4.9 L (6.3-8.2) g/dL Albumin 2.5 L (3.5-5.0) g/dL 07/16/20 Range/Units 12:23 WBC (3.8-10.6) k/uL RBC (4.30-5.90) m/uL Hgb (13.0-17.5) gm/dL Hct (39.0-53.0) % Plt Count (150-450) k/uL Neutrophils # (1.3-7.7) k/uL Lymphocytes # (1.0-4.8) k/uL Fibrinogen (200-500) mg/dL D-Dimer (<0.60) mg/L FEU ABG pH (7.35-7.45) ABG pO2 (83-108) mmHg ABG O2 Saturation (94-97) % Sodium (137-145) mmol/L Carbon Dioxide (22-30) mmol/L BUN (9-20) mg/dL Creatinine (0.66-1.25) mg/dL POC Glucose (mg/dL) 113 H (75-99) mg/dL Ferritin (22.0-322.0) ng/mL ALT (4-49) U/L Lactate Dehydrogenase (313-618) U/L C-Reactive Protein (<10.0) mg/L Total Protein (6.3-8.2) g/dL Albumin (3.5-5.0) g/dL Assessment and Plan Assessment: Acute Covid pneumonia Acute hypoxic respiratory failure needing mechanical ventilation Acute kidney injury Due to ATN. Currently requiring HD Severe metabolic acidosis and hyperkalemia improved with hemodialysis Coagulase-negative staph aureus bacteremia Beta-hemolytic streptococcal for wound cultures. On ceftriaxone. Hypotension/septic shock requiring low-dose norepinephrine. Left upper extremity negative for DVT. Superficial thrombus in the left cephalic vein and left base leg pain Heparin-induced thrombocytopenia. Changed to argatroban and currently on Eliquis. Suspected ischemia of the left hand on anticoagulation and draped Coffee ground vomiting with suspected acute GI bleed Thrombocytopenia Elevated troponin, secondary to renal function impairment, viral infection and hypotension Plan: This is a pleasant 59 years old male who presents with Covid pneumonia, possible bacterial pneumonia/. Continue with mechanical ventilation for pulmonary/critical care team will follow the patient closely. Continue with multiple vitamin zinc and vitamin D, Eliquis. Continue with bicarbonate Keep monitoring hemoglobin and platelets Infectious disease, GI and cardiology, nephrology team on the case Labs and medication were reviewed. Continue with symptomatic treatment. Resume home medication. Monitor lytes and vitals. DVT and GI prophylaxis. Further recommendations as per clinical course of the patient DVT prophylaxis:Eliquis 2.5mg BID GI Prophylaxis: Ppi, Protonix twice a day Prognosis is guarded Time with Patient: Greater than 30
[2020-07-17] MEDS: METOCLOPRAMIDE 5 MG/ML 2 ML VIAL IVP SCH ×4 (00:40→17:33)
[2020-07-17 00:49] LABS: Glucose,Whole Blood 101 mg/dL (75-99)
[2020-07-17] MEDS: INSULIN ASPART (NovoLOG) 100 UNIT/ML VIAL SQ SCH ×4 (01:13→18:06)
[2020-07-17] MEDS: fentaNYL (PF). 1,000 MCG in SODIUM CHLORIDE 0.9% 80 ML IV SCH ×4 (01:36→23:33)
[2020-07-17 04:53] LABS: HCT 24.2 % (39.0-53.0); HGB 8.2 gm/dL (13.0-17.5); MCH 30.1 pg (25.0-35.0); MCHC 33.7 g/dL (31.0-37.0); MCV 89.4 fL (80.0-100.0); Mean Platelet Volume 8.2; Platelet Count 125 k/uL (150-450); RBC 2.71 m/uL (4.30-5.90); RDW 15.7 % (11.5-15.5)
[2020-07-17 05:14] LABS: ABG HCO3 23 mmol/L (21-25); ABG PCO2 48 mmHg (35-45); ABG PH 7.29 (7.35-7.45); ABG PO2 99 mmHg (83-108); Allen Test Performed? Yes
[2020-07-17 05:15] LABS: D-Dimer 6.05 mg/L FEU (<0.60)
[2020-07-17 05:15] LABS: ABG Base Excess -3.3 mmol/L; ABG TCO2 25 mmol/L (19-24)
[2020-07-17 05:46] LABS: Albumin 2.3 g/dL (3.5-5.0); Calcium 8.2 mg/dL (8.4-10.2); Potassium 4.2 mmol/L (3.5-5.1); Total Bilirubin 0.9 mg/dL (0.2-1.3); Total Protein 4.4 g/dL (6.3-8.2)
[2020-07-17 06:01] LABS: Glucose,Whole Blood 94 mg/dL (75-99)
[2020-07-17] MEDS: CALCIUM ACETATE 667 MG TAB PO SCH ×3 (06:17→17:33)
--- NOTE | 2020-07-17 07:02 | XR ---
EXAMINATION TYPE: XR chest 1V portable DATE OF EXAM: 07/17/2020 CLINICAL HISTORY: Difficulty breathing progress study. TECHNIQUE: Single AP portable semiupright view of the chest is obtained. COMPARISON: Chest x-ray from one day earlier and older studies FINDINGS: Stable endotracheal and orogastric tubes. Persistent bilateral multifocal opacities with relative some improved aeration right lung apex on cur rent study. Cardiac silhouette size is stable and mildly enlarged. Underlying scoliotic curvature upp er lumbar spine partially imaged. IMPRESSION: Bilateral multifocal and confluent opacities consistent with covid-19 infection redemons trated. Some improved aeration right lung apex otherwise no significant interval change from one day earlier.
--- NOTE | 2020-07-17 07:56 | P.PN ---
Subjective Progress Note Date: 07/17/20 The patient is seen today 07/12/2020 in follow-up in the intensive care unit. He remains intubated, sedated on the mechanical ventilator at assist control mode of a rate of 36, tidal volume 450, FiO2 40% and a PEEP of 10. Morning blood gases reveal pO2 of 69, pCO2 41, pH 7.35. He remains sedated on propofol at 60 mcg/kg/m, fentanyl at 1 mcg/kg/h, norepinephrine at 0.09 mcg/kg//min, the patient is currently on 0.9 saline at rate of 50 mL an hour. The patient has been off Nimbex since yesterday. He is continued on Argatroban at 0.5 mcg/kg/m. Being nourished with Nepro at 15 ML's per hour. He did receive hemodialysis yesterday with 1 L removed. Chest x-ray reveals mild bibasilar infiltrates. Sputum cultures positive for beta-hemolytic strep, group C. White count 18.1. Hemoglobin 10.6. Platelet count 141. D-dimer 19.69. Sodium 133. Potassium 4.7. Creatinine 4.14. LDH 1067, C-reactive protein 24. Remains on antibiotics in the form of ceftriaxone. Bronchodilators. Vitamin supplements. Dexamethasone. 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 The platelet count is stable and the platelet count is up to 136. On 07/12/2020, the patient is being seen for follow-up. The patient is a 59-year-old obese male patient with a BMI of 36.2 with known history of obstructive sleep apnea, presented with COVID 19 related pneumonia patient is currently intubated on a mechanical ventilator. The patient has been on a mechanical ventilator since 07/05/2020. 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 During the course of his treatment, the patient developed an acute kidney injury secondary to ATN secondary to "with 19 infection. Urine output was improving and the patient's urine output was in order of 20-25 mL an hour. Due to persistent hyperkalemia and worsening renal function, the patient was started on hemodialysis on 07/10/2020. The potassium level improved post-hemodialysis. The patient also had significant metabolic acidosis and the patient was given bicarb infusion. Electrolytes are being monitored. The patient got dialyzed yesterday and this was his second hemodialysis. Nephrology is on the case. He is currently on Decadron 6 mg IV every 24 hours. His chest x-ray is showing patchy by the pulmonary infiltrates in lower lobes, slightly worsening in the chest x-ray findings on today's evaluation mainly in the peripheries and ET tube is in a good location. The patient remains on a mechanical ventilator assist control mode. He is on Nepro at 60 mL an hour. 07/13/2020, I'm seeing this patient for a follow-up. This is a case of a 59-year-old male patient with Covid 19 related pneumonia and acute kidney injury currently on hemodialysis. Worn-out, the patient is sedated and this morning the patient is currently on propofol running at 6 60 mcg/kg per minute and fentanyl is running at 1 mcg/kg/h and this is the same sedation it was being provided yesterday. The patient is on no paralytics for now. The patient is on a mechanical ventilator, on this morning's evaluation, he is on assist-control at the rate of 28 with a tidal volume of 450 and FiO2 of 50% and PEEP is 10. Blood gases from today showing a pH of 7.37 with a pCO2 of 47 and pO2 of 63. Chest x-ray from today is showing diffuse bilateral pulmonary infiltrates more so in the lower lobes bilaterally. ET tube is in a good location. Comparing this chest x-ray from yesterday, there is no major interval change in the findings are essentially stable. His peak airway pressures 28. His static pressures 24. The patient is is still on Decadron 6 mg IV every 24 hours. D- dimer today's at 13.3, his LDH level is at 1021 and the CRP is at 4.6. Note that his inflammatory markers essentially compatible to yesterday. His echoes at 13.7 with a hemoglobin of 9.2. Platelet count is 112. I took the patient off Agratoban and he was also placed on Eliquis at a dose of 5 mg by mouth twice a day. Noted the patient also is an acute kidney injury. The patient underwent dialysis and the spot he has taken 3 sessions of hemodialysis. He is producing urine output in the order of 20-30 mL an hour. His last session of hemodialysis was yesterday. In terms of his electrolytes, his BUN is at 80 with a creatinine of 3.5 and a sodium of 132 with a potassium of 4.4. He is currently on enteral feeding for dizziness support and is currently on Nepro at the rate of 50 mL an hour. He is currently off Rocephin. He is afebrile. He is requiring low-dose pressors were norepinephrine 30 dose of 0.03 mcg/kg per minute. Otherwise, no other significant events. He is afebrile. Sedation holiday was not done yesterday. IV fluids are running at 0.9 at the rate of 50 mL an hour. 07/14/2020, patient is being seen for follow-up. Sedated and still on a mechanical ventilator, probable resolving. 60 mcg/kg per minute and the patient is also on fentanyl at 1 mcg/kg/h. Adequately sedated. On a mechanical ventilator essentially vent settings being at tidal volume of 450 with an FiO2 of 50% and a PEEP of 10 and a rate of 28. These are essentially the same settings as yesterday. As far as blood gases, pO2 is at 79 with a pCO2 of 45 and a pH is at 7.35. He d-dimer is at 9.42 and the rest of the inflammatory markers show an LDH of 1062 which is stable compared to yesterday and a CRP of 87, slightly elevated compared to yesterday. His CPK is down to 231. His pro calcitonin level was at 0.58 and note that the patient has dialysis-dependent renal failure. As far as his creatinine, his creatinine today is at 3.97 with a mean of 96. He did not receive dialysis yesterday. His urine output is in order of 30-40 mL an hour and the fluid balance has been +1.1 L over the past 24 hours. His chest x-ray from today is showing lower lobe pulmonary infiltrates, essentially stable compared to yesterday. ET tube remains in excellent location. IV fluids are running at 20 cc an hour of normal saline. He is afebrile. He is tolerating his enteral feeding for nutritional support. Nore pinephrine infusion which is running at 0.05 mcg/kg per minute. He remains on Decadron 6 mg IV every 24 , platelet count is stable at 121 and 11 avoiding heparin. Patient holiday yesterday was ultimately aborted as the patient became quite agitated after several hours without any meaningful neurological response. 07/15/2020, the patient is being seen for a follow-up. Sedated with propofol running at 60 mcg/kg per minute and fentanyl is at 1 mcg/kg/h and the level of sedation essentially the same as yesterday. Remains on a mechanical ventilator. He is an assist-control mode at the rate of 24 with a tidal volume of 450 and a PEEP of 8 with a FiO2 of 50%. He had a blood gas showing pH of 7.33 with a pCO2 of 46 and pO2 of 73. Chest x-ray is unchanged, probably slightly worse on the left in terms of that the patient is seeing on today's chest x-ray. ET tube remains in a good location. Inflammatory markers from today show a d-dimer of 9 with a LDH level of 1061 and a CRP of 78, comparable to yesterday. His pro calcitonin level was low. He got dialyzed yesterday. I attempted to wean down the PEEP to 6 and this was not successful and the patient desaturated in the PEEP was brought back up to 8 yesterday. Meanwhile, he is afebrile. He is producing urine output in the order of 20-30 mL an hour. He is on normal saline at the rate of 20 mL an hour. He remains on Decadron 6 mg IV to 24 hours. His platelet count is 132 which is essentially stable and improved compared to yesterday. In terms of pressors, the patient is currently on norepinephrine infusion at 0.04 mcg/kg per minute. I will today's condition essentially unchanged and his condition essentially the same as compared to yesterday 07/16/2020, remains on a mechanical ventilator on propofol at the rate of 60 mcg/kg per minute and fentanyl is at 2 mcg/kg/h. He remains off paralytics. At around 6:00 this morning, the patient had some oxygen desaturation. Based on that, I increased his FiO2 up to 60%. Currently is an assist-control mode rate of 28 with a tidal volume of 450 and a PEEP of 8 chest x-ray still showing diffuse bilateral pulmonary infiltrates left more than right. The blood gas shows a pH of 7.31 with a pCO2 of 45 and pO2 of 68. This was on FiO2 of 70%. Inflammatory markers show a d-dimer of 9.9 with a LDH level of 1103 and a CRP level of 62. The patient is on Decadron 6 mg IV every 24 hours. The patient is also on anticoagulation with Eliquis 2.5 mg by mouth twice a day. His platelet counts is 135. The chest x-ray findings are obviously worse and there is some worsening in the evaluation in the right lung compared to yesterday. Note that the patient did not get dialyzed yesterday. Today is a dialysis day for him. He is also on norepinephrine infusion running at 0.08 mcg/kg per minute. There is enough to maintain his blood pressure. He is receiving enteral feeding for discharge support and currently is on Nepro at a rate of 50 mL an hour which is currently at goal. No other significant events. Is adequately sedated for now. 07/17/2020, the patient is being seen for a follow-up. This morning he is on a combination of propofol and fentanyl running at 60 mics for propofol and 1 g for fentanyl. He was given a sedation holiday and she was able to tolerate initiated subsequently he decompensated and became hypoxic and he had to be placed back on sedation. Noted the patient became asynchronous. This morning, he is back on a mechanical ventilator mode at the rate of 28 with a tidal volume of 450 and her FiO2 is at 60% with a PEEP of 8. He underwent dialysis yesterday with a total of 2 liters of ultrafiltration. Note that he was able to tolerated dialysis without any major issues. He is on a minimal dose of norepinephrine infusion running at 0.06 mcg/kg per minute for blood pressure control. On today's evaluation, peak air pressures around 27. The blood gases from today shows a pH of 7.29 with a pCO2 of 40 and pO2 of 99 and this was on FiO2 of 60%. As mentioned, his PEEP is at 8. Chest x-ray still showing diffuse breath and pulmonary infiltrates unchanged without any major interval improvement or worsening. White cell count is at 50 with a hemoglobin of 8.2. Creatinine is at 3.4 and a urine output is in order of 30 mL an hour. No plans for hemodialysis today. He is receiving enteral feeding for nutritional support with Nepro at the rate of 50 mL an hour. He is stooling. Still sedation dependent. Unable to wean him off sedation because of a 6 and mean oxygen desaturations. I have approach the and the family with a possibility of ainsertion of a tracheostomy tube and a PEG tube for prolonged need of mechani alon ventilation and failure for weaning. The patient has been intubated since 07/05/2020. The inflammatory markers from today shows an LDH level of 889, CRP is at 6 and the d-dimer is at 6.05. The patient has palpable pulses in his left upper extremity. She of his fingers are necrotic and the tip including the index, the platelet counts are stable and the patient is currently on Eliquis 2.5 mg by mouth twice a day. Objective - Vital Signs Vital signs: Vital Signs Temp 98.7 F 07/17/20 04:00 Pulse 65 07/17/20 06:58 Resp 24 07/17/20 06:58 BP 111/52 07/17/20 06:58 Pulse Ox 96 07/17/20 06:58 Intake & Output 07/16/20 07/17/20 07/17/20 18:59 06:59 18:59 Intake Total 1163.437 833.116 Output Total 1735 345 Balance -571.563 488.116 Weight 128.2 kg 128.1 kg Intake: IV 276 299 0.9 NS 240 260 Pressure Bag 36 39 Intake, IV Titration 297.437 284.116 Amount Norepinephrine 8 mg In 84.116 Sodium Chloride 0.9% 250 ml @ 0.05 MCG/KG/MIN 11. 01 mls/hr IV .[id number] [facility] Rx#:[id number] fentaNYL (PF). 1,000 mcg 197.437 100 In Sodium Chloride 0.9% 80 ml @ Per Protocol IV . Q0M [facility] Rx#:[id number] propofoL 1,000 mg In 100 100 Empty Bag 1 bag @ Titrate IV .Q0M [facility] Rx#: [id number] Tube Feeding 180 140 Hemodialysis 300 Other 110 110 Output: Urine 435 345 Hemodialysis 1300 Other: Voiding Method Indwelling Catheter Indwelling Catheter # Bowel Movements 1 - Exam GENERAL EXAM: Intubated, sedated 59-year-old gentleman, on the mechanical ventilator, in no apparent distress. Still on sedation with a combination of propofol and fentanyl. HEAD: Normocephalic. EYES: Sluggish reaction of pupils, equal size. NOSE: Clear with pink turbinates. THROAT: Oral endotracheal and gastric tube secured in place No erythema or exudates. NECK: No masses, no JVD. CHEST: No chest wall deformity. LUNGS: Equal air entry with crackles in the bilateral posterior bases CVS: S1 and S2 normal with no audible murmur, regular rhythm. ABDOMEN: No hepatosplenomegaly, normal bowel sounds, no guarding or rigidity. SPINE: No scoliosis or deformity SKIN: No rashes, some oozing from the scrotum CENTRAL NERVOUS SYSTEM: Sedated. No focal deficits, tone is normal in all 4 extremities. EXTREMITIES: Left upper extremity cool, the left hand reveals palpable pulses in his radial artery and the color changes and improved significantly. He has equal and symmetrical pulses in lower extremities bilaterally. There is some increased edema. - Labs CBC & Chem 7: 07/17/20 04:20 07/17/20 04:20 Labs: Abnormal Lab Results - Last 24 Hours (Table) 07/16/20 07/16/20 07/16/20 Range/Units 03:35 12:23 17:23 WBC (3.8-10.6) k/uL RBC (4.30-5.90) m/uL Hgb (13.0-17.5) gm/dL Hct (39.0-53.0) % RDW (11.5-15.5) % Plt Count (150-450) k/uL Fibrinogen (200-500) mg/dL D-Dimer (<0.60) mg/L FEU ABG pH (7.35-7.45) ABG pCO2 (35-45) mmHg ABG Total CO2 (19-24) mmol/L Sodium (137-145) mmol/L BUN (9-20) mg/dL Creatinine (0.66-1.25) mg/dL POC Glucose (mg/dL) 113 H 119 H (75-99) mg/dL Calcium (8.4-10.2) mg/dL Ferritin 729.0 H (22.0-322.0) ng/mL Lactate Dehydrogenase (313-618) U/L C-Reactive Protein (<1.0) mg/dL Total Protein (6.3-8.2) g/dL Albumin (3.5-5.0) g/dL 07/17/20 07/17/20 07/17/20 Range/Units 00:47 04:20 04:20 WBC 13.0 H (3.8-10.6) k/uL RBC 2.71 L (4.30-5.90) m/uL Hgb 8.2 L (13.0-17.5) gm/dL Hct 24.2 L (39.0-53.0) % RDW 15.7 H (11.5-15.5) % Plt Count 125 L (150-450) k/uL Fibrinogen 604 H (200-500) mg/dL D-Dimer 6.05 H (<0.60) mg/L FEU ABG pH (7.35-7.45) ABG pCO2 (35-45) mmHg ABG Total CO2 (19-24) mmol/L Sodium (137-145) mmol/L BUN (9-20) mg/dL Creatinine (0.66-1.25) mg/dL POC Glucose (mg/dL) 101 H (75-99) mg/dL Calcium (8.4-10.2) mg/dL Ferritin (22.0-322.0) ng/mL Lactate Dehydrogenase (313-618) U/L C-Reactive Protein (<1.0) mg/dL Total Protein (6.3-8.2) g/dL Albumin (3.5-5.0) g/dL 07/17/20 07/17/20 Range/Units 04:20 04:35 WBC (3.8-10.6) k/uL RBC (4.30-5.90) m/uL Hgb (13.0-17.5) gm/dL Hct (39.0-53.0) % RDW (11.5-15.5) % Plt Count (150-450) k/uL Fibrinogen (200-500) mg/dL D-Dimer (<0.60) mg/L FEU ABG pH 7.29 L (7.35-7.45) ABG pCO2 48 H (35-45) mmHg ABG Total CO2 25 H (19-24) mmol/L Sodium 132 L (137-145) mmol/L BUN 76 H (9-20) mg/dL Creatinine 3.41 H (0.66-1.25) mg/dL POC Glucose (mg/dL) (75-99) mg/dL Calcium 8.2 L (8.4-10.2) mg/dL Ferritin (22.0-322.0) ng/mL Lactate Dehydrogenase 889 H (313-618) U/L C-Reactive Protein 6.0 H (<1.0) mg/dL Total Protein 4.4 L (6.3-8.2) g/dL Albumin 2.3 L (3.5-5.0) g/dL Assessment and Plan Plan: 1 Acute hypoxemic respiratory failure secondary to acute CoVID 19 pneumonia/pneumonitis requiring mechanical ventilation on 07/05/2020. Received a tocilizumab and convalescent plasma and the patient is currently on Decadron 6 mg every 24 hours. Chest x-ray showing bilateral lower lobe pulmonary i nfiltrates peripheral distribution and orotracheal tube is in a good location. Chest x-ray was noted. Oxygenation improved and the patient is up to6 0% FiO2 with a PEEP of 8. Hemodynamically he is requiring low-dose pressors. He remains on Decadron. Remains on Eliquis 2.5 mg by mouth twice a day. He does have some beta hemolytic strep in the sputum. Could be normal judy versus infection. We'll put the patient IV Rocephin also. His murray ALLERGIC patient should be able to tolerate cephalosporins. Administer 1 g of Rocephin every 24 hours. 2 acute kidney injury secondary to Covid related ATN and the patient is currently on renal replacement therapy. Last session of hemodialysis was done yesterday and the patient is producing urine output in the order of 30 mL an hour 3 severe metabolic acidosis , recovered . The patient also has hyperkalemia improved with hemodialysis. 4 History of blindness 5 hypotension currently on pressors and the patient is on a low dose of norepin ephrine infusion, currently on minimal dose of norepinephrine infusion 6 Osteoarthritis 7 history of hypertension 8 Hyperkalemia 9 Cool, dusky left upper extremity negative for DVT, however, there is superficial thrombus in the left cephalic vein and left basilic, there is improved in the arterial flow and the pulses in the left upper extremity. Platelet counts are stable and the patient is currently on Eliquis 2.5 mg mg by mouth twice a day. 10 Heparin-induced thrombocytopenia currently agratroban and the patient is currently on Eliquis 2.5 mg twice a day to monitor platelet counts are stable 11 History of obstructive sleep apnea, maintained on CPAP Plan: Continue ventilator support , drop the FiO2 down to 50% and is a saturation remains stable, drop the PEEP down to 6 on a trial basis. Sedation holiday Renal replacement therapy/dialysis was done yesterday and the patient is producing adequate amount of urine output. We'll monitor the creatinine. Eliquis 2.5 mg by mouth twice a day, monitor platelet counts in the counts are stable for now Chest x-ray and blood gas was noted Continue Decadron 6 mg IV QD HIT antibodies present, remains off Lovenox will avoid any heparin products for now and put the patient on Eliquis , platelets are stable Continue tube feedings and the patient is currently on Nepro Aranesp 40 g every week Pulses in the left upper extremity improved Wean off pressors and possibly discontinue IV Rocephin for a streptococcal growth that was identified in his sputum. Contemplated the possibility of tracheostomy tube insertion and a PEG tube i nsertion for prolonged mechanical ventilation. If agreeable, general surgery will be consulted. Prognosis poor baseline above-mentioned comorbidities Critical Care evaluation more than 30 minutes Time with Patient: Greater than 30
[2020-07-17 08:03] LABS: Glucose,Whole Blood 91 mg/dL (75-99)
[2020-07-17] MEDS: CHLORHEXIDINE GLUCONATE 15 ML CUP MUCOUS MEM SCH ×2 (09:06→20:07)
[2020-07-17] MEDS: SODIUM BICARBONATE TAB 650 MG TAB PO SCH ×3 (09:06→20:07)
[2020-07-17] MEDS: DEXAMETHASONE SOD PHOSPHATE 10 MG/ML 1 ML VIAL IV SCH (09:07)
[2020-07-17] MEDS: ZINC SULFATE 220 MG CAP PO SCH (09:07)
[2020-07-17] MEDS: ARIPiprazole 5 MG TAB PO SCH ×2 (09:07→20:07)
[2020-07-17] MEDS: CHOLECALCIFEROL 25 MCG (1000 IU) TABLET PO SCH (09:07)
[2020-07-17] MEDS: APIXABAN 2.5 MG TABLET PO SCH ×2 (09:07→20:06)
[2020-07-17] MEDS: SERTRALINE 100 MG TAB PO SCH (09:07)
[2020-07-17] MEDS: ALBUTEROL HFA INHALER INHALATION SCH ×3 (09:45→20:58)
[2020-07-17] MEDS: PANTOPRAZOLE 40 MG/10 ML VIAL IVP SCH ×2 (10:03→20:07)
[2020-07-17 12:14] LABS: Glucose,Whole Blood 102 mg/dL (75-99)
[2020-07-17] MEDS: NOREPINEPHRINE 8 MG in SODIUM CHLORIDE 0.9% 250 ML IV SCH ×2 (14:52→17:19)
--- NOTE | 2020-07-17 15:33 | P.GSCN ---
History of Present Illness Consult date: 07/17/20 History of present illness: Consulatation requested for trach and PEG. Patient on full ventilatory support with orogastric tube. Per discussion with nursing, patient has been intubated for 12 days. He is on eliquis. HEENT: No goiter ASSESSMENT: 1. Vent dependent failure PLAN: 1. Trach and PEG advised Past Medical History Past Medical History: Hypertension, Osteoarthritis (OA), Sleep Apnea/CPAP/BIPAP Additional Past Medical History / Comment(s): Pt tested covid + on 06/26/20 at [facility]. Pt is legally blind, htn but pt was having issues with swelling so he stopped taking htn med, RENETTA without device d/t pt unable to see well enough to keep it clean, chronic low back pain, diverticular disease, benign colon polyp. History of Any Multi-Drug Resistant Organisms: None Reported Past Surgical History: Appendectomy Additional Past Surgical History / Comment(s): Colonoscopy/benign polyp Past Anesthesia/Blood Transfusion Reactions: No Reported Reaction Smoking Status: Former smoker - Past Family History Father Family Medical History: CVA/TIA, Hypertension Mother Family Medical History: No Reported History Brother(s) Family Medical History: Hypertension Sister(s) Family Medical History: Cancer Medications and Allergies Home Medications Medication Instructions Recorded Confirmed Type Sertraline HCl [Zoloft] 200 mg PO DAILY 10/24/14 07/04/20 History ARIPiprazole [Abilify] 5 mg PO BID 08/14/18 07/04/20 History ALPRAZolam [Xanax] 0.25 mg PO DAILY PRN 07/04/20 07/04/20 History Cholecalciferol (Vitamin D3) 125 mcg PO DAILY 07/04/20 07/04/20 History [Vitamin D3 (5000 Iu)] Zinc 50 mg PO DAILY 07/04/20 07/04/20 History Allergies Allergy/AdvReac Type Severity Reaction Status Date / Time Penicillins Allergy Anaphylaxis Verified 07/04/20 20:26 Surgical - Exam Vital Signs Temp Pulse Resp BP Pulse Ox 98.2 F 56 L 24 108/71 95 07/04/20 18:30 07/04/20 18:30 07/04/20 18:30 07/04/20 18:30 07/04/20 18:30 Results - Labs 07/17/20 04:20 07/17/20 04:20 Abnormal Lab Results - Last 24 Hours (Table) 07/16/20 07/17/20 07/17/20 Range/Units 17:23 00:47 04:20 WBC (3.8-10.6) k/uL RBC (4.30-5.90) m/uL Hgb (13.0-17.5) gm/dL Hct (39.0-53.0) % RDW (11.5-15.5) % Plt Count (150-450) k/uL Fibrinogen 604 H (200-500) mg/dL D-Dimer 6.05 H (<0.60) mg/L FEU ABG pH (7.35-7.45) ABG pCO2 (35-45) mmHg ABG Total CO2 (19-24) mmol/L Sodium (137-145) mmol/L BUN (9-20) mg/dL Creatinine (0.66-1.25) mg/dL POC Glucose (mg/dL) 119 H 101 H (75-99) mg/dL Calcium (8.4-10.2) mg/dL Lactate Dehydrogenase (313-618) U/L C-Reactive Protein (<1.0) mg/dL Total Protein (6.3-8.2) g/dL Albumin (3.5-5.0) g/dL 07/17/20 07/17/20 07/17/20 Range/Units 04:20 04:20 04:35 WBC 13.0 H (3.8-10.6) k/uL RBC 2.71 L (4.30-5.90) m/uL Hgb 8.2 L (13.0-17.5) gm/dL Hct 24.2 L (39.0-53.0) % RDW 15.7 H (11.5-15.5) % Plt Count 125 L (150-450) k/uL Fibrinogen (200-500) mg/dL D-Dimer (<0.60) mg/L FEU ABG pH 7.29 L (7.35-7.45) ABG pCO2 48 H (35-45) mmHg ABG Total CO2 25 H (19-24) mmol/L Sodium 132 L (137-145) mmol/L BUN 76 H (9-20) mg/dL Creatinine 3.41 H (0.66-1.25) mg/dL POC Glucose (mg/dL) (75-99) mg/dL Calcium 8.2 L (8.4-10.2) mg/dL Lactate Dehydrogenase 889 H (313-618) U/L C-Reactive Protein 6.0 H (<1.0) mg/dL Total Protein 4.4 L (6.3-8.2) g/dL Albumin 2.3 L (3.5-5.0) g/dL 07/17/20 Range/Units 12:09 WBC (3.8-10.6) k/uL RBC (4.30-5.90) m/uL Hgb (13.0-17.5) gm/dL Hct (39.0-53.0) % RDW (11.5-15.5) % Plt Count (150-450) k/uL Fibrinogen (200-500) mg/dL D-Dimer (<0.60) mg/L FEU ABG pH (7.35-7.45) ABG pCO2 (35-45) mmHg ABG Total CO2 (19-24) mmol/L Sodium (137-145) mmol/L BUN (9-20) mg/dL Creatinine (0.66-1.25) mg/dL POC Glucose (mg/dL) 102 H (75-99) mg/dL Calcium (8.4-10.2) mg/dL Lactate Dehydrogenase (313-618) U/L C-Reactive Protein (<1.0) mg/dL Total Protein (6.3-8.2) g/dL Albumin (3.5-5.0) g/dL Diabetes panel 07/17/20 Range/Units 04:20 Sodium 132 L (137-145) mmol/L Potassium 4.2 (3.5-5.1) mmol/L Chloride 101 (98-107) mmol/L Carbon Dioxide 22 (22-30) mmol/L BUN 76 H (9-20) mg/dL Creatinine 3.41 H (0.66-1.25) mg/dL Glucose 87 (74-99) mg/dL Calcium 8.2 L (8.4-10.2) mg/dL AST 45 (17-59) U/L ALT 45 (4-49) U/L Alkaline Phosphatase 106 (38-126) U/L Total Protein 4.4 L (6.3-8.2) g/dL Albumin 2.3 L (3.5-5.0) g/dL Calcium panel 07/17/20 Range/Units 04:20 Calcium 8.2 L (8.4-10.2) mg/dL Albumin 2.3 L (3.5-5.0) g/dL Pituitary panel 07/17/20 Range/Units 04:20 Sodium 132 L (137-145) mmol/L Potassium 4.2 (3.5-5.1) mmol/L Chloride 101 (98-107) mmol/L Carbon Dioxide 22 (22-30) mmol/L BUN 76 H (9-20) mg/dL Creatinine 3.41 H (0.66-1.25) mg/dL Glucose 87 (74-99) mg/dL Calcium 8.2 L (8.4-10.2) mg/dL Adrenal panel 07/17/20 Range/Units 04:20 Sodium 132 L (137-145) mmol/L Potassium 4.2 (3.5-5.1) mmol/L Chloride 101 (98-107) mmol/L Carbon Dioxide 22 (22-30) mmol/L BUN 76 H (9-20) mg/dL Creatinine 3.41 H (0.66-1.25) mg/dL Glucose 87 (74-99) mg/dL Calcium 8.2 L (8.4-10.2) mg/dL Total Bilirubin 0.9 (0.2-1.3) mg/dL AST 45 (17-59) U/L ALT 45 (4-49) U/L Alkaline Phosphatase 106 (38-126) U/L Total Protein 4.4 L (6.3-8.2) g/dL Albumin 2.3 L (3.5-5.0) g/dL
--- NOTE | 2020-07-17 16:01 | PN ---
PROGRESS NOTE Patient is seen for followup for acute kidney injury. He has been started on hemodialysis. Patient has urine output at about 40-50 mL an hour. He remains on the vent. He is currently trying to be weaned off of sedation. There are plans for possible tracheostomy and PEG down the road. The patient was dialyzed yesterday. The patient is not examined. Case is discussed with nursing staff. PHYSICAL EXAMINATION: Vital signs are reviewed. Blood pressure 142/66, heart rate of about 80 per minute. Patient is afebrile. He remains on the vent. He is tolerating his tube feeds. Urine output as mentioned about 40 to 30 mL an hour. LABS: From today show sodium 132, potassium 4.2, chloride 101 BUN 76, creatinine 3.4, hemoglobin 8.2 g/dL. ASSESSMENT: 1. Acute kidney injury, currently started on dialysis. Urine output maintained. No plans for dialysis today. He was dialyzed yesterday. We will continue to monitor on a daily basis for need for renal replacement therapy. 2. Acute hypoxic respiratory failure, currently on the vent. 3. Hyperkalemia associated with acute kidney injury, metabolic acidosis, improved post dialysis. 4. COVID-19 pneumonia. 5. Hyperphosphatemia associated with renal failure, maintained on phosphate binders. PLAN: We will continue to assess on a daily basis for renal replacement therapy. Continue with Nepro tube feeds. MMODL / IJN: [id number] /
[2020-07-17 16:06] LABS: Glucose,Whole Blood 112 mg/dL (75-99)
[2020-07-18 00:55] LABS: Glucose,Whole Blood 99 mg/dL (75-99)
[2020-07-18] MEDS: INSULIN ASPART (NovoLOG) 100 UNIT/ML VIAL SQ SCH ×4 (01:43→17:13)
[2020-07-18] MEDS: METOCLOPRAMIDE 5 MG/ML 2 ML VIAL IVP SCH ×4 (02:22→17:14)
[2020-07-18 05:03] LABS: HCT 24.2 % (39.0-53.0); HGB 8.5 gm/dL (13.0-17.5); MCH 30.8 pg (25.0-35.0); Mean Platelet Volume 8.4; Platelet Count 129 k/uL (150-450); RBC 2.75 m/uL (4.30-5.90); RDW 15.7 % (11.5-15.5); WBC 10.5 k/uL (3.8-10.6)
[2020-07-18 05:29] LABS: Albumin 2.4 g/dL (3.5-5.0); C Reactive Protein 5.2 mg/dL (<1.0); Calcium 8.4 mg/dL (8.4-10.2); Potassium 4.1 mmol/L (3.5-5.1); Total Bilirubin 0.8 mg/dL (0.2-1.3); Total Protein 4.6 g/dL (6.3-8.2)
[2020-07-18 05:33] LABS: D-Dimer 5.4 mg/L FEU (<0.60)
[2020-07-18 06:01] LABS: ABG Base Excess -5.3 mmol/L; ABG HCO3 22 mmol/L (21-25); ABG PCO2 48 mmHg (35-45); ABG PH 7.26 (7.35-7.45); ABG PO2 71 mmHg (83-108); ABG TCO2 23 mmol/L (19-24); Allen Test Performed? Yes
--- NOTE | 2020-07-18 06:04 | XR ---
EXAMINATION TYPE: XR chest 1V portable DATE OF EXAM: 07/18/2020 CLINICAL HISTORY: Difficulty breathing progress study. TECHNIQUE: Single AP portable semiupright view of the chest is obtained. COMPARISON: Chest x-ray from one day earlier and older studies. FINDINGS: Stable endotracheal and orogastric tubes. Persistent bilateral multifocal opacities with some relative sparing of right lung apex is redemonstr ated. Cardiac silhouette size is stable and mildly enlarged. Underlying scoliotic curvature lower tho racic spine. IMPRESSION: Bilateral multifocal and confluent opacities consistent with covid-19 infection redemons trated. No significant interval change from one day earlier.
[2020-07-18 06:37] LABS: Glucose,Whole Blood 90 mg/dL (75-99)
[2020-07-18] MEDS: fentaNYL (PF). 1,000 MCG in SODIUM CHLORIDE 0.9% 80 ML IV SCH ×2 (06:51→15:17)
[2020-07-18] MEDS: CALCIUM ACETATE 667 MG TAB PO SCH ×3 (07:08→17:13)
--- NOTE | 2020-07-18 08:24 | P.PN ---
Subjective Progress Note Date: 07/18/20 The patient is seen today 07/12/2020 in follow-up in the intensive care unit. He remains intubated, sedated on the mechanical ventilator at assist control mode of a rate of 36, tidal volume 450, FiO2 40% and a PEEP of 10. Morning blood gases reveal pO2 of 69, pCO2 41, pH 7.35. He remains sedated on propofol at 60 mcg/kg/m, fentanyl at 1 mcg/kg/h, norepinephrine at 0.09 mcg/kg//min, the patient is currently on 0.9 saline at rate of 50 mL an hour. The patient has been off Nimbex since yesterday. He is continued on Argatroban at 0.5 mcg/kg/m. Being nourished with Nepro at 15 ML's per hour. He did receive hemodialysis yesterday with 1 L removed. Chest x-ray reveals mild bibasilar infiltrates. Sputum cultures positive for beta-hemolytic strep, group C. White count 18.1. Hemoglobin 10.6. Platelet count 141. D-dimer 19.69. Sodium 133. Potassium 4.7. Creatinine 4.14. LDH 1067, C-reactive protein 24. Remains on antibiotics in the form of ceftriaxone. Bronchodilators. Vitamin supplements. Dexamethasone. 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 The platelet count is stable and the platelet count is up to 136. On 07/12/2020, the patient is being seen for follow-up. The patient is a 59-year-old obese male patient with a BMI of 36.2 with known history of obstructive sleep apnea, presented with COVID 19 related pneumonia patient is currently intubated on a mechanical ventilator. The patient has been on a mechanical ventilator since 07/05/2020. 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 During the course of his treatment, the patient developed an acute kidney injury secondary to ATN secondary to "with 19 infection. Urine output was improving and the patient's urine output was in order of 20-25 mL an hour. Due to persistent hyperkalemia and worsening renal function, the patient was started on hemodialysis on 07/10/2020. The potassium level improved post-hemodialysis. The patient also had significant metabolic acidosis and the patient was given bicarb infusion. Electrolytes are being monitored. The patient got dialyzed yesterday and this was his second hemodialysis. Nephrology is on the case. He is currently on Decadron 6 mg IV every 24 hours. His chest x-ray is showing patchy by the pulmonary infiltrates in lower lobes, slightly worsening in the chest x-ray findings on today's evaluation mainly in the peripheries and ET tube is in a good location. The patient remains on a mechanical ventilator assist control mode. He is on Nepro at 60 mL an hour. 07/13/2020, I'm seeing this patient for a follow-up. This is a case of a 59-year-old male patient with Covid 19 related pneumonia and acute kidney injury currently on hemodialysis. Worn-out, the patient is sedated and this morning the patient is currently on propofol running at 6 60 mcg/kg per minute and fentanyl is running at 1 mcg/kg/h and this is the same sedation it was being provided yesterday. The patient is on no paralytics for now. The patient is on a mechanical ventilator, on this morning's evaluation, he is on assist-control at the rate of 28 with a tidal volume of 450 and FiO2 of 50% and PEEP is 10. Blood gases from today showing a pH of 7.37 with a pCO2 of 47 and pO2 of 63. Chest x-ray from today is showing diffuse bilateral pulmonary infiltrates more so in the lower lobes bilaterally. ET tube is in a good location. Comparing this chest x-ray from yesterday, there is no major interval change in the findings are essentially stable. His peak airway pressures 28. His static pressures 24. The patient is is still on Decadron 6 mg IV every 24 hours. D- dimer today's at 13.3, his LDH level is at 1021 and the CRP is at 4.6. Note that his inflammatory markers essentially compatible to yesterday. His echoes at 13.7 with a hemoglobin of 9.2. Platelet count is 112. I took the patient off Agratoban and he was also placed on Eliquis at a dose of 5 mg by mouth twice a day. Noted the patient also is an acute kidney injury. The patient underwent dialysis and the spot he has taken 3 sessions of hemodialysis. He is producing urine output in the order of 20-30 mL an hour. His last session of hemodialysis was yesterday. In terms of his electrolytes, his BUN is at 80 with a creatinine of 3.5 and a sodium of 132 with a potassium of 4.4. He is currently on enteral feeding for dizziness support and is currently on Nepro at the rate of 50 mL an hour. He is currently off Rocephin. He is afebrile. He is requiring low-dose pressors were norepinephrine 30 dose of 0.03 mcg/kg per minute. Otherwise, no other significant events. He is afebrile. Sedation holiday was not done yesterday. IV fluids are running at 0.9 at the rate of 50 mL an hour. 07/14/2020, patient is being seen for follow-up. Sedated and still on a mechanical ventilator, probable resolving. 60 mcg/kg per minute and the patient is also on fentanyl at 1 mcg/kg/h. Adequately sedated. On a mechanical ventilator essentially vent settings being at tidal volume of 450 with an FiO2 of 50% and a PEEP of 10 and a rate of 28. These are essentially the same settings as yesterday. As far as blood gases, pO2 is at 79 with a pCO2 of 45 and a pH is at 7.35. He d-dimer is at 9.42 and the rest of the inflammatory markers show an LDH of 1062 which is stable compared to yesterday and a CRP of 87, slightly elevated compared to yesterday. His CPK is down to 231. His pro calcitonin level was at 0.58 and note that the patient has dialysis-dependent renal failure. As far as his creatinine, his creatinine today is at 3.97 with a mean of 96. He did not receive dialysis yesterday. His urine output is in order of 30-40 mL an hour and the fluid balance has been +1.1 L over the past 24 hours. His chest x-ray from today is showing lower lobe pulmonary infiltrates, essentially stable compared to yesterday. ET tube remains in excellent location. IV fluids are running at 20 cc an hour of normal saline. He is afebrile. He is tolerating his enteral feeding for nutritional support. Nore pinephrine infusion which is running at 0.05 mcg/kg per minute. He remains on Decadron 6 mg IV every 24 , platelet count is stable at 121 and 11 avoiding heparin. Patient holiday yesterday was ultimately aborted as the patient became quite agitated after several hours without any meaningful neurological response. 07/15/2020, the patient is being seen for a follow-up. Sedated with propofol running at 60 mcg/kg per minute and fentanyl is at 1 mcg/kg/h and the level of sedation essentially the same as yesterday. Remains on a mechanical ventilator. He is an assist-control mode at the rate of 24 with a tidal volume of 450 and a PEEP of 8 with a FiO2 of 50%. He had a blood gas showing pH of 7.33 with a pCO2 of 46 and pO2 of 73. Chest x-ray is unchanged, probably slightly worse on the left in terms of that the patient is seeing on today's chest x-ray. ET tube remains in a good location. Inflammatory markers from today show a d-dimer of 9 with a LDH level of 1061 and a CRP of 78, comparable to yesterday. His pro calcitonin level was low. He got dialyzed yesterday. I attempted to wean down the PEEP to 6 and this was not successful and the patient desaturated in the PEEP was brought back up to 8 yesterday. Meanwhile, he is afebrile. He is producing urine output in the order of 20-30 mL an hour. He is on normal saline at the rate of 20 mL an hour. He remains on Decadron 6 mg IV to 24 hours. His platelet count is 132 which is essentially stable and improved compared to yesterday. In terms of pressors, the patient is currently on norepinephrine infusion at 0.04 mcg/kg per minute. I will today's condition essentially unchanged and his condition essentially the same as compared to yesterday 07/16/2020, remains on a mechanical ventilator on propofol at the rate of 60 mcg/kg per minute and fentanyl is at 2 mcg/kg/h. He remains off paralytics. At around 6:00 this morning, the patient had some oxygen desaturation. Based on that, I increased his FiO2 up to 60%. Currently is an assist-control mode rate of 28 with a tidal volume of 450 and a PEEP of 8 chest x-ray still showing diffuse bilateral pulmonary infiltrates left more than right. The blood gas shows a pH of 7.31 with a pCO2 of 45 and pO2 of 68. This was on FiO2 of 70%. Inflammatory markers show a d-dimer of 9.9 with a LDH level of 1103 and a CRP level of 62. The patient is on Decadron 6 mg IV every 24 hours. The patient is also on anticoagulation with Eliquis 2.5 mg by mouth twice a day. His platelet counts is 135. The chest x-ray findings are obviously worse and there is some worsening in the evaluation in the right lung compared to yesterday. Note that the patient did not get dialyzed yesterday. Today is a dialysis day for him. He is also on norepinephrine infusion running at 0.08 mcg/kg per minute. There is enough to maintain his blood pressure. He is receiving enteral feeding for discharge support and currently is on Nepro at a rate of 50 mL an hour which is currently at goal. No other significant events. Is adequately sedated for now. 07/17/2020, the patient is being seen for a follow-up. This morning he is on a combination of propofol and fentanyl running at 60 mics for propofol and 1 g for fentanyl. He was given a sedation holiday and she was able to tolerate initiated subsequently he decompensated and became hypoxic and he had to be placed back on sedation. Noted the patient became asynchronous. This morning, he is back on a mechanical ventilator mode at the rate of 28 with a tidal volume of 450 and her FiO2 is at 60% with a PEEP of 8. He underwent dialysis yesterday with a total of 2 liters of ultrafiltration. Note that he was able to tolerated dialysis without any major issues. He is on a minimal dose of norepinephrine infusion running at 0.06 mcg/kg per minute for blood pressure control. On today's evaluation, peak air pressures around 27. The blood gases from today shows a pH of 7.29 with a pCO2 of 40 and pO2 of 99 and this was on FiO2 of 60%. As mentioned, his PEEP is at 8. Chest x-ray still showing diffuse breath and pulmonary infiltrates unchanged without any major interval improvement or worsening. White cell count is at 50 with a hemoglobin of 8.2. Creatinine is at 3.4 and a urine output is in order of 30 mL an hour. No plans for hemodialysis today. He is receiving enteral feeding for nutritional support with Nepro at the rate of 50 mL an hour. He is stooling. Still sedation dependent. Unable to wean him off sedation because of a 6 and mean oxygen desaturations. I have approach the and the family with a possibility of ainsertion of a tracheostomy tube and a PEG tube for prolonged need of mechani alon ventilation and failure for weaning. The patient has been intubated since 07/05/2020. The inflammatory markers from today shows an LDH level of 889, CRP is at 6 and the d-dimer is at 6.05. The patient has palpable pulses in his left upper extremity. She of his fingers are necrotic and the tip including the index, the platelet counts are stable and the patient is currently on Eliquis 2.5 mg by mouth twice a day. Or 2020, the patient remains sedated with a combination of propofol and fentanyl running at 50 mcg/kg per minute for propofol and 1 mcg/kg per hour for fentanyl. He is sedated. In fact is deeply sedated. We are going to proceed with a sedation holiday on this patient today. He remains on a mechanical ventilator. He remains on a assist-control rate of 28, tidal volume of 450, FiO2 of 50% with a PEEP of 8. Attempts to wean the PEEP further failed and the patient became more hypoxic. As such, the patient is living At 8. This patient is a 7.26 with a pCO2 of 48 and pO2 of 71 today's blood gas. His chest x-ray showing stable bilateral pulmonary infiltrates essentially involving the lower lobes. ET tube is in a good location. Note that the patient is producing urine output in the order of 8200 mL an hour. His net fluid balance over the past 24 hours has been -83 mL. He has had a with a positive fluid balance for today. The findings on the case. The intent of the dialysis 3 times a week. His last dialysis was done on Sunday which is 2 days ago. His creatinine is up to 3.7 with a BUN of 84. Rest of the electrolytes are normal. Affect is running a lower sodium level of 1:30 with a potassium level of 4.1. Serum bicarbs at 20. In terms of his COVID-19 related pneumonia, the patient has a LDH level of 855, CRP level of 5.2 and his most recent d-dimer is at 5.4. He remains on steroids and he is on Decadron 6 mg IV every 24 hours. He did have a component of hit syndrome. This was related to heparin. He did receive Agratroban was ultima tely discontinued once the patient's stated count picked up and it's platelet count is currently at 129. He does have necrotic fingers in his left upper extremity. Adequate pulses in the radial. No new vascular insults noted on today's examination. He is receiving enteral feeding for nutritional support and is currently on Nepro at the rate of 10 mL an hour. He is stooling. He is on Rocephin for strep in history of the blood cultures on 2 separate occasions. Otherwise, the blood cultures positive for coagulase-negative staph. Objective - Vital Signs Vital signs: Vital Signs Temp 97.3 F L 07/18/20 00:00 Pulse 68 07/18/20 07:00 Resp 24 07/18/20 07:00 BP 128/53 07/18/20 07:00 Pulse Ox 93 L 07/18/20 07:00 Intake & Output 07/17/20 07/18/20 07/18/20 18:59 06:59 18:59 Intake Total 1016.770 742.874 33 Output Total 360 335 25 Balance 656.770 407.874 8 Weight 127.4 kg Intake: IV 253 276 23 0.9 NS 220 240 20 Pressure Bag 33 36 3 Intake, IV Titration 543.770 226.874 Amount Norepinephrine 8 mg In 120.23 Sodium Chloride 0.9% 250 ml @ 0.05 MCG/KG/MIN 11. 01 mls/hr IV .[id number] PR[facility]UL Rx#:[id number] fentaNYL (PF). 1,000 mcg 180.498 169.916 In Sodium Chloride 0.9% 80 ml @ Per Protocol IV . Q0M [facility] Rx#:[id number] propofoL 1,000 mg In 243.042 56.958 Empty Bag 1 bag @ Titrate IV .Q0M PR[facility]UL Rx#: [id number] Tube Feeding 130 140 10 Other 90 100 Output: Urine 360 335 25 Other: Voiding Method Indwelling Catheter Indwelling Catheter - Exam GENERAL EXAM: Intubated, sedated 59-year-old gentleman, on the mechanical ventilator, in no apparent distress. Still on sedation with a combination of propofol and fentanyl. HEAD: Normocephalic. EYES: Sluggish reaction of pupils, equal size. NOSE: Clear with pink turbinates. THROAT: Oral endotracheal and gastric tube secured in place No erythema or exudates. NECK: No masses, no JVD. CHEST: No chest wall deformity. LUNGS: Equal air entry with crackles in the bilateral posterior bases CVS: S1 and S2 normal with no audible murmur, regular rhythm. ABDOMEN: No hepatosplenomegaly, normal bowel sounds, no guarding or rigidity. SPINE: No scoliosis or deformity SKIN: No rashes, some oozing from the scrotum CENTRAL NERVOUS SYSTEM: Sedated. No focal deficits, tone is normal in all 4 extremities. EXTREMITIES: Left upper extremity cool, the left hand reveals palpable pulses in his radial artery and the color changes and improved significantly. He has equ al and symmetrical pulses in lower extremities bilaterally. There is some increased edema. - Labs CBC & Chem 7: 07/18/20 04:10 07/18/20 04:10 Labs: Abnormal Lab Results - Last 24 Hours (Table) 07/17/20 07/17/20 07/18/20 Range/Units 12:09 16:04 04:10 RBC 2.75 L (4.30-5.90) m/uL Hgb 8.5 L (13.0-17.5) gm/dL Hct 24.2 L (39.0-53.0) % RDW 15.7 H (11.5-15.5) % Plt Count 129 L (150-450) k/uL Fibrinogen (200-500) mg/dL D-Dimer (<0.60) mg/L FEU ABG pH (7.35-7.45) ABG pCO2 (35-45) mmHg ABG pO2 (83-108) mmHg ABG O2 Saturation (94-97) % Sodium (137-145) mmol/L Carbon Dioxide (22-30) mmol/L BUN (9-20) mg/dL Creatinine (0.66-1.25) mg/dL POC Glucose (mg/dL) 102 H 112 H (75-99) mg/dL Lactate Dehydrogenase (313-618) U/L C-Reactive Protein (<1.0) mg/dL Total Protein (6.3-8.2) g/dL Albumin (3.5-5.0) g/dL 07/18/20 07/18/20 07/18/20 Range/Units 04:10 04:10 05:55 RBC (4.30-5.90) m/uL Hgb (13.0-17.5) gm/dL Hct (39.0-53.0) % RDW (11.5-15.5) % Plt Count (150-450) k/uL Fibrinogen 576 H (200-500) mg/dL D-Dimer 5.40 H (<0.60) mg/L FEU ABG pH 7.26 L (7.35-7.45) ABG pCO2 48 H (35-45) mmHg ABG pO2 71 L (83-108) mmHg ABG O2 Saturation 93.0 L (94-97) % Sodium 130 L (137-145) mmol/L Carbon Dioxide 20 L (22-30) mmol/L BUN 84 H (9-20) mg/dL Creatinine 3.74 H (0.66-1.25) mg/dL POC Glucose (mg/dL) (75-99) mg/dL Lactate Dehydrogenase 855 H (313-618) U/L C-Reactive Protein 5.2 H (<1.0) mg/dL Total Protein 4.6 L (6.3-8.2) g/dL Albumin 2.4 L (3.5-5.0) g/dL Assessment and Plan Plan: 1 Acute hypoxemic respiratory failure secondary to acute CoVID 19 pneumonia/pneumonitis requiring mechanical ventilation on 07/05/2020. Received a tocilizumab and convalescent plasma and the patient is currently on Decadron 6 mg every 24 hours. Chest x-ray showing bilateral lower lobe pulmonary infiltrates peripheral distribution and orotracheal tube is in a good location. Chest x-ray was noted. Chest x-ray findings are unchanged consistent with Covid associated pneumonia. Remains on a PEEP of 8 with an FiO2 of 50%. Chest x-ray was noted. Blood gases was noted. There may be a component of fluid overload. The patient will be started on IV Lasix. He is also on IV Rocephin regarding strep cultures in the sputum 5 still. 2 acute kidney injury secondary to Covid related ATN and the patient is curr ently on renal replacement therapy. Last session of hemodialysis was done 2 days ago and the patient is producing urine output in the order of 50 mL an hour 3 severe metabolic acidosis , recovered . The patient also has hyperkalemia improved with hemodialysis. 4 History of blindness 5 hypotension currently on pressors and the patient is on a low dose of norepinephrine infusion, currently on minimal dose of norepinephrine infusion 6 Osteoarthritis 7 history of hypertension 8 Hyperkalemia 9 Cool, dusky left upper extremity negative for DVT, however, there is superficial thrombus in the left cephalic vein and left basilic, there is improved in the arterial flow and the pulses in the left upper extremity. Platelet counts are stable and the patient is currently on Eliquis 2.5 mg mg by mouth twice a day. 10 Heparin-induced thrombocytopenia currently agratroban and the patient is cu rrently on Eliquis 2.5 mg twice a day to monitor platelet counts are stable 11 History of obstructive sleep apnea, maintained on CPAP Plan: Continue ventilator support , no vent changes for today Hemodialysis per nephrology Start the patient on Lasix 80 mg IV every 12 hours Provide the patient sedation holiday and assess his underlying mental status Monitor the platelet count Continue Eliquis 2.5 mg by mouth twice a day Chest x-ray and blood gas was noted Continue Decadron 6 g IV every 24 hours Continue enteral feeding for nutritional support Monitor the vascular pulses and he does have multiple necrotic fingers in his left upper extremity Had a lengthy discussion with the family and it seems that we are headed hours PEG and trach within next 24-48 hours Obtain a general surgical consultation regarding that. Anticoagulation may need to be stopped prior to this surgical procedure. Continue IV Rocephin. Discontinue Reglan Wean off pressors and the patient is requiring low dose of norepinephrine infusion for blood pressure control. We think it titrate the norepinephrine and discontinue if his blood pressure remains stable. Prognosis poor baseline above-mentioned comorbidities Critical Care evaluation more than 30 minutes Time with Patient: Greater than 30
[2020-07-18] MEDS: SODIUM BICARBONATE TAB 650 MG TAB PO SCH ×3 (08:29→20:33)
[2020-07-18] MEDS: FUROSEMIDE 10 MG/ML 10 ML VIAL IV SCH ×2 (08:29→20:33)
[2020-07-18] MEDS: ZINC SULFATE 220 MG CAP PO SCH (08:29)
[2020-07-18] MEDS: ALBUTEROL HFA INHALER INHALATION SCH ×3 (08:30→20:55)
[2020-07-18] MEDS: CHLORHEXIDINE GLUCONATE 15 ML CUP MUCOUS MEM SCH ×2 (08:38→20:33)
[2020-07-18] MEDS: APIXABAN 2.5 MG TABLET PO SCH ×2 (08:38→20:34)
[2020-07-18] MEDS: DEXAMETHASONE SOD PHOSPHATE 10 MG/ML 1 ML VIAL IV SCH (08:38)
[2020-07-18] MEDS: PANTOPRAZOLE 40 MG/10 ML VIAL IVP SCH ×2 (08:43→20:33)
[2020-07-18] MEDS: ARIPiprazole 5 MG TAB PO SCH ×2 (08:45→20:33)
[2020-07-18] MEDS: SERTRALINE 100 MG TAB PO SCH (08:46)
[2020-07-18] MEDS: CHOLECALCIFEROL 25 MCG (1000 IU) TABLET PO SCH (08:48)
--- NOTE | 2020-07-18 11:48 | PN ---
PROGRESS NOTE Patient is seen for followup for acute kidney injury. The patient has been started on dialysis. He was last dialyzed on 07/16/2020. Urine output had picked up, currently it is at about 30 mL an hour. The patient remains on the vent. Sedation is currently being decreased. He continues to have significant edema. He was given a dose of Lasix this morning. PHYSICAL EXAMINATION: Blood pressure this morning 138/58, heart rate 69 per minute, patient is sedated on the vent. He has 2+ edema bilaterally in the lower extremities with significant scrotal edema. There is bleeding noted around the scrotum as well. Abdomen is morbidly obese. [employer] exam cannot be performed as patient is sedated. LAB: Show sodium 130, potassium 4.1, BUN 84, serum creatinine 3.7, hemoglobin 8.5 g/dL, CK is 81. ASSESSMENT: 1. Acute kidney injury, acute tubular necrosis, currently nonoliguric, started on dialysis. We will plan for dialysis again tomorrow. Agree with Lasix. We will repeat another dose later on today. 2. Acute hypoxic respiratory failure secondary to COVID pneumonia, maintained on the vent. 3. Hyperkalemia associated with acute kidney injury, metabolic acidosis, now improved. 4. Hyperphosphatemia associated with renal failure. 5. Beta-hemolytic group B strep in the sputum. 6. Anemia of chronic disease, maintained on Aranesp. 7. COVID pneumonia, maintained on Decadron, currently on the vent. PLAN: Continue to diurese patient. We will plan for dialysis tomorrow and I will plan for daily treatments to help with the volume status as long as he remains hemodynamically stable. MMODL / IJN: [id number] /
[2020-07-18] MEDS ORDERED: DEXTROSE 50% SYRINGE 50 ML IVP ONE (12:31)
[2020-07-18 12:33] LABS: Glucose,Whole Blood 65 mg/dL (75-99)
[2020-07-18 12:46] LABS: Glucose,Whole Blood 116 mg/dL (75-99)
[2020-07-18] MEDS: CLEVIDIPINE BUTYRATE 25 MG in EMPTY BAG 1 BAG IV SCH ×2 (13:23→19:32)
--- NOTE | 2020-07-18 16:18 | P.PN ---
Subjective Progress Note Date: 07/18/20 Patient has been on vent since 07/05 now 13 days ago. He has HIT, sleep apnea and on mechanical support for respiratory failure due to COVID pneumonia. He is on hemodialysis HEENT: On vent MARIA UEGENIA: Ricardo is clear PLAN: 1. Patient elevated risk for bleeding including complications due to COVID, hemodialysis dependent, recent HIT and being on Eliquis for trach and PEG Objective - Vital Signs Vital signs: Vital Signs Temp 97.5 F L 07/18/20 08:00 Pulse 76 07/18/20 16:00 Resp 27 H 07/18/20 16:00 BP 138/59 07/18/20 16:00 Pulse Ox 96 07/18/20 16:00 Intake & Output 07/17/20 07/18/20 07/18/20 18:59 06:59 18:59 Intake Total 1016.770 742.874 808.830 Output Total 360 335 735 Balance 656.770 407.874 73.830 Weight 127.4 kg Intake: IV 253 276 193 0.9 NS 220 240 150 Pressure Bag 33 36 43 Intake, IV Titration 543.770 226.874 445.830 Amount Clevidipine Butyrate 25 0.633 mg In Empty Bag 1 bag @ 1 MG/HR 2 mls/hr IV .Q24H [facility] Rx#:[id number] Norepinephrine 8 mg In 120.23 181.298 Sodium Chloride 0.9% 250 ml @ 0.05 MCG/KG/MIN 11. 01 mls/hr IV .[id number] [facility] Rx#:[id number] cefTRIAXone 1 gm In 50 Sodium Chloride 0.9% 50 ml @ 100 mls/hr IVPB Q24HR [facility] Rx#:[id number] fentaNYL (PF). 1,000 mcg 180.498 169.916 93.005 In Sodium Chloride 0.9% 80 ml @ Per Protocol IV . Q0M [facility] Rx#:[id number] propofoL 1,000 mg In 243.042 56.958 120.894 Empty Bag 1 bag @ Titrate IV .Q0M [facility] Rx#: [id number] Tube Feeding 130 140 110 Other 90 100 60 Output: Urine 360 335 735 Other: Voiding Method Indwelling Catheter Indwelling Catheter Indwelling Catheter - Labs CBC & Chem 7: 07/18/20 04:10 07/18/20 04:10 Labs: Abnormal Lab Results - Last 24 Hours (Table) 07/18/20 07/18/20 07/18/20 Range/Units 04:10 04:10 04:10 RBC 2.75 L (4.30-5.90) m/uL Hgb 8.5 L (13.0-17.5) gm/dL Hct 24.2 L (39.0-53.0) % RDW 15.7 H (11.5-15.5) % Plt Count 129 L (150-450) k/uL Fibrinogen 576 H (200-500) mg/dL D-Dimer 5.40 H (<0.60) mg/L FEU ABG pH (7.35-7.45) ABG pCO2 (35-45) mmHg ABG pO2 (83-108) mmHg ABG O2 Saturation (94-97) % Sodium 130 L (137-145) mmol/L Carbon Dioxide 20 L (22-30) mmol/L BUN 84 H (9-20) mg/dL Creatinine 3.74 H (0.66-1.25) mg/dL POC Glucose (mg/dL) (75-99) mg/dL Lactate Dehydrogenase 855 H (313-618) U/L C-Reactive Protein 5.2 H (<1.0) mg/dL Total Protein 4.6 L (6.3-8.2) g/dL Albumin 2.4 L (3.5-5.0) g/dL 07/18/20 07/18/20 07/18/20 Range/Units 05:55 12:29 12:45 RBC (4.30-5.90) m/uL Hgb (13.0-17.5) gm/dL Hct (39.0-53.0) % RDW (11.5-15.5) % Plt Count (150-450) k/uL Fibrinogen (200-500) mg/dL D-Dimer (<0.60) mg/L FEU ABG pH 7.26 L (7.35-7.45) ABG pCO2 48 H (35-45) mmHg ABG pO2 71 L (83-108) mmHg ABG O2 Saturation 93.0 L (94-97) % Sodium (137-145) mmol/L Carbon Dioxide (22-30) mmol/L BUN (9-20) mg/dL Creatinine (0.66-1.25) mg/dL POC Glucose (mg/dL) 65 L 116 H (75-99) mg/dL Lactate Dehydrogenase (313-618) U/L C-Reactive Protein (<1.0) mg/dL Total Protein (6.3-8.2) g/dL Albumin (3.5-5.0) g/dL Microbiology - Last 24 Hours (Table) 07/18/20 01:40 Gram Stain - Preliminary Sputum Sputum Culture - Preliminary
[2020-07-18 17:12] LABS: Glucose,Whole Blood 86 mg/dL (75-99)
[2020-07-18 23:48] LABS: Glucose,Whole Blood 89 mg/dL (75-99)
[2020-07-19] MEDS: INSULIN ASPART (NovoLOG) 100 UNIT/ML VIAL SQ SCH ×4 (03:28→18:37)
[2020-07-19] MEDS: METOCLOPRAMIDE 5 MG/ML 2 ML VIAL IVP SCH ×4 (03:49→18:29)
[2020-07-19 04:48] LABS: ABG Base Excess -5.9 mmol/L; ABG HCO3 20 mmol/L (21-25); ABG Oxygen Saturation 95.4 % (94-97); ABG PCO2 41 mmHg (35-45); ABG PH 7.31 (7.35-7.45); ABG PO2 81 mmHg (83-108); ABG TCO2 22 mmol/L (19-24); Allen Test Performed? Yes
[2020-07-19] MEDS: NOREPINEPHRINE 8 MG in SODIUM CHLORIDE 0.9% 250 ML IV SCH ×2 (05:29→15:32)
[2020-07-19 05:43] LABS: HCT 25.7 % (39.0-53.0); HGB 8.9 gm/dL (13.0-17.5); MCH 30.5 pg (25.0-35.0); MCHC 34.7 g/dL (31.0-37.0); MCV 87.9 fL (80.0-100.0); Platelet Count 148 k/uL (150-450); RBC 2.92 m/uL (4.30-5.90); WBC 9.1 k/uL (3.8-10.6)
[2020-07-19 06:05] LABS: D-Dimer 6.68 mg/L FEU (<0.60)
[2020-07-19 06:15] LABS: Albumin 2.5 g/dL (3.5-5.0); Calcium 8.6 mg/dL (8.4-10.2); Potassium 3.9 mmol/L (3.5-5.1); Total Protein 4.8 g/dL (6.3-8.2)
[2020-07-19] MEDS: fentaNYL (PF). 1,000 MCG in SODIUM CHLORIDE 0.9% 80 ML IV SCH (06:37)
[2020-07-19 07:26] LABS: C Reactive Protein 4.2 mg/dL (<1.0)
--- NOTE | 2020-07-19 07:59 | XR ---
EXAMINATION TYPE: XR chest 1V portable DATE OF EXAM: 07/19/2020 Comparison: 07/18/2020 Clinical History: 59-year-old male COVID Findings: ET tube tip at the level of the medial clavicular heads. NG tube courses below the diaphragm. Heart b orderline in size. Bilateral patchy and confluent airspace opacities, greatest in the lower lungs. Ae ration may be minimally improving at the lung bases. Impression: Bilateral patchy and confluent airspace disease, greatest at the lung bases. There may be minimal int erval improvement in aeration at the lung bases.
[2020-07-19] MEDS: CHLORHEXIDINE GLUCONATE 15 ML CUP MUCOUS MEM SCH ×2 (08:14→20:48)
[2020-07-19] MEDS: FUROSEMIDE 10 MG/ML 10 ML VIAL IV SCH ×2 (08:14→20:47)
[2020-07-19] MEDS: CHOLECALCIFEROL 25 MCG (1000 IU) TABLET PO SCH (08:15)
[2020-07-19] MEDS: PANTOPRAZOLE 40 MG/10 ML VIAL IVP SCH ×2 (08:15→20:47)
[2020-07-19] MEDS: DEXAMETHASONE SOD PHOSPHATE 10 MG/ML 1 ML VIAL IV SCH (08:15)
[2020-07-19] MEDS: ARIPiprazole 5 MG TAB PO SCH ×2 (08:15→20:48)
[2020-07-19] MEDS: APIXABAN 2.5 MG TABLET PO SCH ×2 (08:15→12:28)
[2020-07-19] MEDS: SODIUM BICARBONATE TAB 650 MG TAB PO SCH ×3 (08:15→20:48)
[2020-07-19] MEDS: CALCIUM ACETATE 667 MG TAB PO SCH ×2 (08:16→15:34)
[2020-07-19] MEDS: ZINC SULFATE 220 MG CAP PO SCH (08:16)
[2020-07-19] MEDS: SERTRALINE 100 MG TAB PO SCH (08:16)
[2020-07-19] MEDS: ALBUTEROL HFA INHALER INHALATION SCH ×3 (09:26→20:48)
--- NOTE | 2020-07-19 11:25 | P.PN ---
Subjective Progress Note Date: 07/19/20 CHIEF COMPLAINT: Shortness of breath HISTORY OF PRESENT ILLNESS: Patient currently in the ICU and on mechanical ventilation. He has been on the vent since 07/05/2020. He has acute hypoxic respiratory failure due to COVID-19 pneumonia. He is on hemodialysis. He also has HIT. And he has been on Eliquis for DVT. Eliquis is currently on hold for trach and PEG placement. Anticipating tracheostomy and PEG tube placement tomorrow. Patient is afebrile. WBC 9.1 hemoglobin 8.9 platelets 148 PHYSICAL EXAM: VITAL SIGNS: Reviewed. GENERAL: Well-developed in no acute distress. HEENT: No sclera icterus. Extraocular movements grossly intact. Moist buccal mucosa. Head is atraumatic, normocephalic. ABDOMEN: Soft. Nondistended. Nontender. NEUROLOGIC: Intubated and sedated ASSESSMENT: 1. Acute hypoxic respiratory failure secondary to acute COVID-19 pneumonia with prolonged mechanical ventilation 2. Protein calorie malnutrition 3. Acute kidney injury requiring hemodialysis 4. Left upper extremity DVT patient had been on Eliquis 5. Heparin-induced thrombocytopenia PLAN: -Patient is scheduled for tracheostomy and PEG tube placement for tomorrow, 07/20/[address] Mcdowell -Keep Eliquis on hold -Hold tube feedings after midnight -Continue ICU management -Continue supportive care Physician Sample Examiner note has been reviewed by physician. Signing provider agrees with the documented findings, assessment, and plan of care. Objective - Vital Signs Vital signs: Vital Signs Temp 98 F 07/19/20 07:55 Pulse 96 07/19/20 11:00 Resp 28 H 07/19/20 11:00 BP 141/73 07/19/20 10:00 Pulse Ox 96 07/19/20 11:00 Intake & Output 07/18/20 07/19/20 07/19/20 18:59 06:59 18:59 Intake Total 951.409 413.894 121.974 Output Total 970 305 210 Balance -18.591 108.894 -88.026 Weight 128.9 kg Intake: IV 253 143 58 0.9 NS 190 110 40 Pressure Bag 63 33 18 Intake, IV Titration 458.409 70.894 53.974 Amount Clevidipine Butyrate 25 0.633 23.333 mg In Empty Bag 1 bag @ 1 MG/HR 2 mls/hr IV .Q24H [facility] Rx#:[id number] Norepinephrine 8 mg In 181.298 Sodium Chloride 0.9% 250 ml @ 0.05 MCG/KG/MIN 11. 01 mls/hr IV .[id number] [facility] Rx#:[id number] cefTRIAXone 1 gm In 50 50 Sodium Chloride 0.9% 50 ml @ 100 mls/hr IVPB Q24HR [facility] Rx#:[id number] fentaNYL (PF). 1,000 mcg 105.584 47.561 3.974 In Sodium Chloride 0.9% 80 ml @ Per Protocol IV . Q0M [facility] Rx#:[id number] propofoL 1,000 mg In 120.894 Empty Bag 1 bag @ Titrate IV .Q0M [facility] Rx#: [id number] Tube Feeding 150 110 10 Other 90 90 Output: Urine 970 305 210 Other: Voiding Method Indwelling Catheter Indwelling Catheter - Labs CBC & Chem 7: 07/19/20 04:45 07/19/20 04:45 Labs: Abnormal Lab Results - Last 24 Hours (Table) 07/18/20 07/18/20 07/19/20 Range/Units 12:29 12:45 04:34 RBC (4.30-5.90) m/uL Hgb (13.0-17.5) gm/dL Hct (39.0-53.0) % RDW (11.5-15.5) % Plt Count (150-450) k/uL Fibrinogen (200-500) mg/dL D-Dimer (<0.60) mg/L FEU ABG pH 7.31 L (7.35-7.45) ABG pO2 81 L (83-108) mmHg ABG HCO3 20 L (21-25) mmol/L Sodium (137-145) mmol/L Carbon Dioxide (22-30) mmol/L BUN (9-20) mg/dL Creatinine (0.66-1.25) mg/dL POC Glucose (mg/dL) 65 L 116 H (75-99) mg/dL ALT (4-49) U/L Lactate Dehydrogenase (313-618) U/L C-Reactive Protein (<1.0) mg/dL Total Protein (6.3-8.2) g/dL Albumin (3.5-5.0) g/dL 07/19/20 07/19/20 07/19/20 Range/Units 04:45 04:45 04:45 RBC 2.92 L (4.30-5.90) m/uL Hgb 8.9 L (13.0-17.5) gm/dL Hct 25.7 L (39.0-53.0) % RDW 16.0 H (11.5-15.5) % Plt Count 148 L (150-450) k/uL Fibrinogen 642 H (200-500) mg/dL D-Dimer 6.68 H (<0.60) mg/L FEU ABG pH (7.35-7.45) ABG pO2 (83-108) mmHg ABG HCO3 (21-25) mmol/L Sodium 135 L (137-145) mmol/L Carbon Dioxide 18 L (22-30) mmol/L BUN 91 H (9-20) mg/dL Creatinine 4.51 H (0.66-1.25) mg/dL POC Glucose (mg/dL) (75-99) mg/dL ALT 54 H (4-49) U/L Lactate Dehydrogenase 893 H (313-618) U/L C-Reactive Protein 4.2 H (<1.0) mg/dL Total Protein 4.8 L (6.3-8.2) g/dL Albumin 2.5 L (3.5-5.0) g/dL Microbiology - Last 24 Hours (Table) 07/18/20 01:40 Gram Stain - Preliminary Sputum Sputum Culture - Preliminary
--- NOTE | 2020-07-19 11:43 | P.PN ---
Subjective Progress Note Date: 07/19/20 Principal diagnosis: Acute hypoxic failure secondary to COVID-19 pneumonia The patient is seen today 07/12/2020 in follow-up in the intensive care unit. He remains intubated, sedated on the mechanical ventilator at assist control mode of a rate of 36, tidal volume 450, FiO2 40% and a PEEP of 10. Morning blood gases reveal pO2 of 69, pCO2 41, pH 7.35. He remains sedated on propofol at 60 mcg/kg/m, fentanyl at 1 mcg/kg/h, norepinephrine at 0.09 mcg/kg//min, the patient is currently on 0.9 saline at rate of 50 mL an hour. The patient has been off Nimbex since yesterday. He is continued on Argatroban at 0.5 mcg/kg/m. Being nourished with Nepro at 15 ML's per hour. He did receive hemodialysis yesterday with 1 L removed. Chest x-ray reveals mild bibasilar infiltrates. Sputum cultures positive for beta-hemolytic strep, group C. White count 18.1. Hemoglobin 10.6. Platelet count 141. D-dimer 19.69. Sodium 133. Potassium 4.7. Creatinine 4.14. LDH 1067, C-reactive protein 24. Remains on antibiotics in the form of ceftriaxone. Bronchodilators. Vitamin supplements. Dexamethasone. 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 The platelet count is stable and the platelet count is up to 136. On 07/12/2020, the patient is being seen for follow-up. The patient is a 59-year-old obese male patient with a BMI of 36.2 with known history of obstructive sleep apnea, presented with COVID 19 related pneumonia patient is currently intubated on a mechanical ventilator. The patient has been on a mechanical ventilator since 07/05/2020. 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 During the course of his treatment, the patient developed an acute kidney injury secondary to ATN secondary to "with 19 infection. Urine output was improving and the patient's urine output was in order of 20-25 mL an hour. Due to persistent hyperkalemia and worsening renal function, the patient was started on hemodialysis on 07/10/2020. The potassium level improved post-hemodialysis. The patient also had significant metabolic acidosis and the patient was given bicarb infusion. Electrolytes are being monitored. The patient got dialyzed yesterday and this was his second hemodialysis. Nephrology is on the case. He is currently on Decadron 6 mg IV every 24 hours. His chest x-ray is showing patchy by the pulmonary infiltrates in lower lobes, slightly worsening in the chest x-ray findings on today's evaluation mainly in the peripheries and ET tube is in a good location. The patient remains on a mechanical ventilator assist control mode. He is on Nepro at 60 mL an hour. 07/13/2020, I'm seeing this patient for a follow-up. This is a case of a 59-year-old male patient with Covid 19 related pneumonia and acute kidney injury currently on hemodialysis. Worn-out, the patient is sedated and this morning the patient is currently on propofol running at 6 60 mcg/kg per minute and fentanyl is running at 1 mcg/kg/h and this is the same sedation it was being provided yesterday. The patient is on no paralytics for now. The patient is on a mechanical ventilator, on this morning's evaluation, he is on assist-control at the rate of 28 with a tidal volume of 450 and FiO2 of 50% and PEEP is 10. Blood gases from today showing a pH of 7.37 with a pCO2 of 47 and pO2 of 63. Chest x-ray from today is showing diffuse bilateral pulmonary infiltrates more so in the lower lobes bilaterally. ET tube is in a good location. Comparing this chest x-ray from yesterday, there is no major interval change in the findings are essentially stable. His peak airway pressures 28. His static pressures 24. The patient is is still on Decadron 6 mg IV every 24 hours. D- dimer today's at 13.3, his LDH level is at 1021 and the CRP is at 4.6. Note that his inflammatory markers essentially compatible to yesterday. His echoes at 13.7 with a hemoglobin of 9.2. Platelet count is 112. I took the patient off Agratoban and he was also placed on Eliquis at a dose of 5 mg by mouth twice a day. Noted the patient also is an acute kidney injury. The patient underwent dialysis and the spot he has taken 3 sessions of hemodialysis. He is producing urine output in the order of 20-30 mL an hour. His last session of hemodialysis was yesterday. In terms of his electrolytes, his BUN is at 80 with a creatinine of 3.5 and a sodium of 132 with a potassium of 4.4. He is currently on enteral feeding for dizziness support and is currently on Nepro at the rate of 50 mL an hour. He is currently off Rocephin. He is afebrile. He is requiring low-dose pressors were norepinephrine 30 dose of 0.03 mcg/kg per minute. Otherwise, no other significant events. He is afebrile. Sedation holiday was not done yesterday. IV fluids are running at 0.9 at the rate of 50 mL an hour. 07/14/2020, patient is being seen for follow-up. Sedated and still on a mechanical ventilator, probable resolving. 60 mcg/kg per minute and the patient is also on fentanyl at 1 mcg/kg/h. Adequately sedated. On a mechanical ventilator essentially vent settings being at tidal volume of 450 with an FiO2 of 50% and a PEEP of 10 and a rate of 28. These are essentially the same settings as yesterday. As far as blood gases, pO2 is at 79 with a pCO2 of 45 and a pH is at 7.35. He d-dimer is at 9.42 and the rest of the inflammatory markers show an LDH of 1062 which is stable compared to yesterday and a CRP of 87, slightly elevated compared to yesterday. His CPK is down to 231. His pro calcitonin level was at 0.58 and note that the patient has dialysis-dependent renal failure. As far as his creatinine, his creatinine today is at 3.97 with a mean of 96. He did not receive dialysis yesterday. His urine output is in order of 30-40 mL an hour and the fluid balance has been +1.1 L over the past 24 hours. His chest x-ray from today is showing lower lobe pulmonary infiltrates, essentially stable compared to yesterday. ET tube remains in excellent location. IV fluids are running at 20 cc an hour of normal saline. He is afebrile. He is tolerating his enteral feeding for nutritional support. Nor epinephrine infusion which is running at 0.05 mcg/kg per minute. He remains on Decadron 6 mg IV every 24 , platelet count is stable at 121 and 11 avoiding heparin. Patient holiday yesterday was ultimately aborted as the patient became quite agitated after several hours without any meaningful neurological response. 07/15/2020, the patient is being seen for a follow-up. Sedated with propofol ru nning at 60 mcg/kg per minute and fentanyl is at 1 mcg/kg/h and the level of sedation essentially the same as yesterday. Remains on a mechanical ventilator. He is an assist-control mode at the rate of 24 with a tidal volume of 450 and a PEEP of 8 with a FiO2 of 50%. He had a blood gas showing pH of 7.33 with a pCO2 of 46 and pO2 of 73. Chest x-ray is unchanged, probably slightly worse on the l eft in terms of that the patient is seeing on today's chest x-ray. ET tube remains in a good location. Inflammatory markers from today show a d-dimer of 9 with a LDH level of 1061 and a CRP of 78, comparable to yesterday. His pro calcitonin level was low. He got dialyzed yesterday. I attempted to wean down the PEEP to 6 and this was not successful and the patient desaturated in the PEEP was brought back up to 8 yesterday. Meanwhile, he is afebrile. He is producing urine output in the order of 20-30 mL an hour. He is on normal saline at the rate of 20 mL an hour. He remains on Decadron 6 mg IV to 24 hours. His platelet count is 132 which is essentially stable and improved compared to yesterday. In terms of pressors, the patient is currently on norepinephrine infusion at 0.04 mcg/kg per minute. I will today's condition essentially unchanged and his condition essentially the same as compared to yesterday 07/16/2020, remains on a mechanical ventilator on propofol at the rate of 60 mcg/kg per minute and fentanyl is at 2 mcg/kg/h. He remains off paralytics. At around 6:00 this morning, the patient had some oxygen desaturation. Based on that, I increased his FiO2 up to 60%. Currently is an assist-control mode rate of 28 with a tidal volume of 450 and a PEEP of 8 chest x-ray still showing diffuse bilateral pulmonary infiltrates left more than right. The blood gas shows a pH of 7.31 with a pCO2 of 45 and pO2 of 68. This was on FiO2 of 70%. Inflammatory markers show a d-dimer of 9.9 with a LDH level of 1103 and a CRP level of 62. The patient is on Decadron 6 mg IV every 24 hours. The patient is also on anticoagulation with Eliquis 2.5 mg by mouth twice a day. His platelet counts is 135. The chest x-ray findings are obviously worse and there is some worsening in the evaluation in the right lung compared to yesterday. Note that the patient did not get dialyzed yesterday. Today is a dialysis day for him. He is also on norepinephrine infusion running at 0.08 mcg/kg per minute. There is enough to maintain his blood pressure. He is receiving enteral feeding for discharge support and currently is on Nepro at a rate of 50 mL an hour which is currently at goal. No other significant events. Is adequately sedated for now. 07/17/2020, the patient is being seen for a follow-up. This morning he is on a combination of propofol and fentanyl running at 60 mics for propofol and 1 g for fentanyl. He was given a sedation holiday and she was able to tolerate initiated subsequently he decompensated and became hypoxic and he had to be placed back on sedation. Noted the patient became asynchronous. This morning, he is back on a mechanical ventilator mode at the rate of 28 with a tidal volume of 450 and her FiO2 is at 60% with a PEEP of 8. He underwent dialysis yesterday with a total of 2 liters of ultrafiltration. Note that he was able to tolerated dialysis without any major issues. He is on a minimal dose of norepinephrine infusion running at 0.06 mcg/kg per minute for blood pressure control. On today's evaluation, peak air pressures around 27. The blood gases from today shows a pH of 7.29 with a pCO2 of 40 and pO2 of 99 and this was on FiO2 of 60%. As mentioned, his PEEP is at 8. Chest x-ray still showing diffuse breath and pulmonary infiltrates unchanged without any major interval improvement or worsening. White cell count is at 50 with a hemoglobin of 8.2. Creatinine is at 3.4 and a urine output is in order of 30 mL an hour. No plans for hemodialysis today. He is receiving enteral feeding for nutritional support with Nepro at the rate of 50 mL an hour. He is stooling. Still sedation dependent. Unable to wean him off sedation because of a 6 and mean oxygen desaturations. I have approach the and the family with a possibility of ainsertion of a tracheostomy tube and a PEG tube for prolonged need of mechan ical ventilation and failure for weaning. The patient has been intubated since 07/05/2020. The inflammatory markers from today shows an LDH level of 889, CRP is at 6 and the d-dimer is at 6.05. The patient has palpable pulses in his left upper extremity. She of his fingers are necrotic and the tip including the index, the platelet counts are stable and the patient is currently on Eliquis 2.5 mg by mouth twice a day. Or 2020, the patient remains sedated with a combination of propofol and fentanyl running at 50 mcg/kg per minute for propofol and 1 mcg/kg per hour for fentanyl. He is sedated. In fact is deeply sedated. We are going to proceed with a sedation holiday on this patient today. He remains on a mechanical ventilator. He remains on a assist-control rate of 28, tidal volume of 450, FiO2 of 50% with a PEEP of 8. Attempts to wean the PEEP further failed and the patient became more hypoxic. As such, the patient is living At 8. This patient is a 7.26 with a pCO2 of 48 and pO2 of 71 today's blood gas. His chest x-ray showing stable bilateral pulmonary infiltrates essentially involving the lower lobes. ET tube is in a good location. Note that the patient is producing urine output in the order of 8200 mL an hour. His net fluid balance over the past 24 hours has been -83 mL. He has had a with a positive fluid balance for today. The findings on the case. The intent of the dialysis 3 times a week. His last dialysis was done on Sunday which is 2 days ago. His creatinine is up to 3.7 with a BUN of 84. Rest of the electrolytes are normal. Affect is running a lower sodium level of 1:30 with a potassium level of 4.1. Serum bicarbs at 20. In terms of his COVID-19 related pneumonia, the patient has a LDH level of 855, CRP level of 5.2 and his most recent d-dimer is at 5.4. He remains on steroids and he is on Decadron 6 mg IV every 24 hours. He did have a component of hit syndrome. This was related to heparin. He did receive Agratroban was ultim ately discontinued once the patient's stated count picked up and it's platelet count is currently at 129. He does have necrotic fingers in his left upper extremity. Adequate pulses in the radial. No new vascular insults noted on today's examination. He is receiving enteral feeding for nutritional support and is currently on Nepro at the rate of 10 mL an hour. He is stooling. He is on Rocephin for strep in history of the blood cultures on 2 separate occasions. Otherwise, the blood cultures positive for coagulase-negative staph. Patient was reevaluated today on 07/19/2020, remains intubated and mechanically ventilated, he is off sedation and he is not showing any signs of neurological n ot responding to any stimuli. Patient is on assist control rate of 24th of volume 450 FiO2 50% and PEEP of 6. ABG showed a pO2 of 81 pCO2 41 pH of 7.31 patient is on enteral feeding. And he may undergo dialysis. We plan to have a tracheostomy and PEG tube placement in this patient, and he is basically a failure to wean. Today the sedation is placed on hold. Chest x-ray continues to show bilateral pulmonary infiltrates involving lower lobes. Endotracheal tube is in the proper position. Patient is making good urine, however his renal functioning seems to be getting worse. Electrolytes are normal. BUN is 91 creatinine 4.51 LDH is 893 liver enzymes are borderline elevated, C-reactive p rotein is 4.2 d-dimer 6.68. WBC count is 9.1 hemoglobin is 8.9 Objective - Vital Signs Vital signs: Vital Signs Temp 98 F 07/19/20 07:55 Pulse 96 07/19/20 11:00 Resp 28 H 07/19/20 11:00 BP 141/73 07/19/20 10:00 Pulse Ox 96 07/19/20 11:00 Intake & Output 07/18/20 07/19/20 07/19/20 18:59 06:59 18:59 Intake Total 951.409 413.894 121.974 Output Total 970 305 210 Balance -18.591 108.894 -88.026 Weight 128.9 kg Intake: IV 253 143 58 0.9 NS 190 110 40 Pressure Bag 63 33 18 Intake, IV Titration 458.409 70.894 53.974 Amount Clevidipine Butyrate 25 0.633 23.333 mg In Empty Bag 1 bag @ 1 MG/HR 2 mls/hr IV .Q24H [facility] Rx#:[id number] Norepinephrine 8 mg In 181.298 Sodium Chloride 0.9% 250 ml @ 0.05 MCG/KG/MIN 11. 01 mls/hr IV .[id number] [facility] Rx#:[id number] cefTRIAXone 1 gm In 50 50 Sodium Chloride 0.9% 50 ml @ 100 mls/hr IVPB Q24HR [facility] Rx#:[id number] fentaNYL (PF). 1,000 mcg 105.584 47.561 3.974 In Sodium Chloride 0.9% 80 ml @ Per Protocol IV . Q0M [facility] Rx#:[id number] propofoL 1,000 mg In 120.894 Empty Bag 1 bag @ Titrate IV .Q0M [facility] Rx#: [id number] Tube Feeding 150 110 10 Other 90 90 Output: Urine 970 305 210 Other: Voiding Method Indwelling Catheter Indwelling Catheter - Exam GENERAL EXAM: Intubated, off sedation, would like to assess mental status off sedation but so far he is not responding. HEAD: Normocephalic. Atraumatic, endotracheal tube and orogastric tube are intact. EYES: Sluggish reaction of pupils, equal size. NOSE: Clear with pink turbinates. THROAT: Oral endotracheal and gastric tube secured in place No erythema or exudates. NECK: No masses, no JVD. CHEST: No chest wall deformity. LUNGS: Symmetrical chest expansion crackles and rhonchi noted bilaterally. CVS: S1 and S2 normal with no audible murmur, regular rhythm. ABDOMEN: No hepatosplenomegaly, normal bowel sounds, no guarding or rigidity. SPINE: No scoliosis or deformity SKIN: No rashes, some oozing from the scrotum CENTRAL NERVOUS SYSTEM: Unresponsive to any painful stimuli, patient is now off sedation EXTREMITIES: Left upper extremity cool, the left hand reveals palpable pulses in his radial artery and the color changes and improved significantly. Positive bipedal edema - Labs CBC & Chem 7: 07/19/20 04:45 07/19/20 04:45 Labs: Abnormal Lab Results - Last 24 Hours (Table) 07/18/20 07/18/20 07/19/20 Range/Units 12:29 12:45 04:34 RBC (4.30-5.90) m/uL Hgb (13.0-17.5) gm/dL Hct (39.0-53.0) % RDW (11.5-15.5) % Plt Count (150-450) k/uL Fibrinogen (200-500) mg/dL D-Dimer (<0.60) mg/L FEU ABG pH 7.31 L (7.35-7.45) ABG pO2 81 L (83-108) mmHg ABG HCO3 20 L (21-25) mmol/L Sodium (137-145) mmol/L Carbon Dioxide (22-30) mmol/L BUN (9-20) mg/dL Creatinine (0.66-1.25) mg/dL POC Glucose (mg/dL) 65 L 116 H (75-99) mg/dL ALT (4-49) U/L Lactate Dehydrogenase (313-618) U/L C-Reactive Protein (<1.0) mg/dL Total Protein (6.3-8.2) g/dL Albumin (3.5-5.0) g/dL 07/19/20 07/19/20 07/19/20 Range/Units 04:45 04:45 04:45 RBC 2.92 L (4.30-5.90) m/uL Hgb 8.9 L (13.0-17.5) gm/dL Hct 25.7 L (39.0-53.0) % RDW 16.0 H (11.5-15.5) % Plt Count 148 L (150-450) k/uL Fibrinogen 642 H (200-500) mg/dL D-Dimer 6.68 H (<0.60) mg/L FEU ABG pH (7.35-7.45) ABG pO2 (83-108) mmHg ABG HCO3 (21-25) mmol/L Sodium 135 L (137-145) mmol/L Carbon Dioxide 18 L (22-30) mmol/L BUN 91 H (9-20) mg/dL Creatinine 4.51 H (0.66-1.25) mg/dL POC Glucose (mg/dL) (75-99) mg/dL ALT 54 H (4-49) U/L Lactate Dehydrogenase 893 H (313-618) U/L C-Reactive Protein 4.2 H (<1.0) mg/dL Total Protein 4.8 L (6.3-8.2) g/dL Albumin 2.5 L (3.5-5.0) g/dL Microbiology - Last 24 Hours (Table) 07/18/20 01:40 Gram Stain - Preliminary Sputum Sputum Culture - Preliminary Assessment and Plan Assessment: Impression: Acute hypoxic respiratory failure secondary to COVID-19 pneumonia. Patient received toci and convalescent plasma. Acute kidney injury requiring dialysis. Severe metabolic acidosis, improved and resolved after dialysis. Hyperkalemia secondary to above. Benign essential hypertension. 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 Recommendation: Continue ventilatory support. Continue to keep patient off sedation to assess mental status. Continue hemodialysis. Continue to monitor labs including renal profile electrolytes and platelets. Continue Eliquis. Continue enteral feeding. Continue Decadron. Continue GI and DVT prophylaxis. Arrange for tracheostomy and PEG tube placement hopefully in the next 24 hours. Continue IV Rocephin. Prognosis remains extremely poor and guarded. Critical care time is over 30 minutes Time with Patient: Greater than 30
[2020-07-19 12:11] LABS: Glucose,Whole Blood 98 mg/dL (75-99)
--- NOTE | 2020-07-19 15:47 | PN ---
PROGRESS NOTE The patient is seen for followup for acute kidney injury and volume overload. He is currently seen on dialysis. The patient is just being started. He remains on the vent. Blood pressure this morning was 124/64, heart rate 98 per minute. He is afebrile. Patient remains with significant edema. He is on the vent. Labs show sodium of 135, potassium 3.9, chloride 102. CO2 is 18, BUN 91, creatinine 4.5, hemoglobin 8.9 g/dL. ASSESSMENT: 1. Acute kidney injury, acute tubular necrosis, nonoliguric, with urine output currently at about 60 to 70 mL/hour; however, patient remained significantly volume- overloaded, and since there has been a significant increase in his creatinine, we will go ahead with dialysis today. 2. Metabolic acidosis associated with renal failure. Expect improvement with dialysis. 3. Acute hypoxic respiratory failure, currently on the vent. Etiology COVID pneumonia. 4. Hyperkalemia associated with acute kidney injury and metabolic acidosis, now improved. 5. Anemia of chronic disease, maintained on Aranesp. 6. Beta hemolytic group B strep in the sputum. 7. COVID pneumonia, maintained on Decadron, currently on the vent. PLAN: Continue with Lasix. We will also dialyze the patient today with goal UF of about 2 to 3 L. I will discontinue the sodium bicarb once his acidosis has improved. MMODL / IJN: [id number] /
[2020-07-19 18:34] LABS: Glucose,Whole Blood 99 mg/dL (75-99)
[2020-07-19 23:58] LABS: Glucose,Whole Blood 104 mg/dL (75-99)
[2020-07-20] MEDS: INSULIN ASPART (NovoLOG) 100 UNIT/ML VIAL SQ SCH ×4 (00:41→19:48)
[2020-07-20] MEDS: METOCLOPRAMIDE 5 MG/ML 2 ML VIAL IVP SCH ×2 (00:42→06:54)
[2020-07-20] MEDS: CALCIUM ACETATE 667 MG TAB PO SCH ×4 (04:10→23:25)
[2020-07-20 05:33] LABS: Anisocytosis Slight; Basophils % (A) 0 %; Eosinophils # (A) 0.1 k/uL (0-0.7); Eosinophils % (A) 1 %; HCT 23.6 % (39.0-53.0); HGB 8.1 gm/dL (13.0-17.5); Lymphocytes # (A) 0.6 k/uL (1.0-4.8); Lymphocytes % (A) 7 %; MCH 30.5 pg (25.0-35.0); MCHC 34.4 g/dL (31.0-37.0); MCV 88.8 fL (80.0-100.0); Mean Platelet Volume 8.2; Monocytes # (A) 0.3 k/uL (0-1.0); Monocytes % (A) 4 %; Neutrophils # (A) 7.1 k/uL (1.3-7.7); Neutrophils % (A) 88 %; Platelet Count 126 k/uL (150-450); RBC 2.66 m/uL (4.30-5.90); RDW 16.2 % (11.5-15.5); WBC 8.1 k/uL (3.8-10.6)
[2020-07-20 05:53] LABS: Albumin 2.5 g/dL (3.5-5.0); C Reactive Protein 5.6 mg/dL (<1.0); Calcium 8.5 mg/dL (8.4-10.2); Potassium 3.7 mmol/L (3.5-5.1); Total Protein 4.8 g/dL (6.3-8.2)
[2020-07-20 05:54] LABS: ABG Base Excess -4.5 mmol/L; ABG HCO3 22 mmol/L (21-25); ABG PCO2 42 mmHg (35-45); ABG PH 7.32 (7.35-7.45); ABG PO2 92 mmHg (83-108); ABG TCO2 23 mmol/L (19-24); Allen Test Performed? Yes
[2020-07-20 05:55] LABS: Glucose,Whole Blood 103 mg/dL (75-99)
[2020-07-20 06:52] LABS: D-Dimer 13.38 mg/L FEU (<0.60); Partial Thromboplastin Time 22.3 sec (22.0-30.0)
--- NOTE | 2020-07-20 07:29 | XR ---
EXAMINATION TYPE: XR chest 1V portable DATE OF EXAM: 07/20/2020 Comparison: 07/19/2020 Clinical History: 59-year-old male COVID Findings: ET and NG tubes satisfactory. Severe bilateral airspace disease shows interval worsening now with obs curation of the heart margins. Impression: Progressive severe bilateral airspace disease now with obscuration of the heart
[2020-07-20] MEDS: CHLORHEXIDINE GLUCONATE 15 ML CUP MUCOUS MEM SCH ×2 (08:06→21:21)
[2020-07-20] MEDS: PANTOPRAZOLE 40 MG/10 ML VIAL IVP SCH ×2 (08:07→21:21)
[2020-07-20] MEDS: DEXAMETHASONE SOD PHOSPHATE 10 MG/ML 1 ML VIAL IV SCH (08:07)
[2020-07-20] MEDS: FUROSEMIDE 10 MG/ML 10 ML VIAL IV SCH ×2 (08:07→21:21)
[2020-07-20] MEDS: ALBUTEROL HFA INHALER INHALATION SCH ×3 (09:28→21:37)
--- NOTE | 2020-07-20 11:17 | P.PN ---
Subjective Progress Note Date: 07/17/20 Principal diagnosis: Acute hypoxic respiratory failure secondary to Covid pneumonia requiring mechanical ventilation Acute kidney injury requiring hemodialysis This is a pleasant 53 years old male with past medical history of hypertension, osteoarthritis, sleep apnea. Presents with respiratory distress secondary to covid pneumonia and secondary bacterial infection is suspected as well with positive sputum culture for streptococcus, group C. Patient is currently monitored in the ICU because of his respiratory failure, currently on mechanical ventilation and need a small dose of Levophed at 4 g today. Also patient has elevated troponin and he was started on heparin drip however he developed coffee-ground emesis via anicteric tube, heparin drip was stopped and hemoglobin is stable and normal at 12.4 today. Bioinformatics Engineer found to his elevated troponin is secondary to his Covid infection and hypotension, Lovenox is on hold although patient has elevated d-dimer due to coffee ground vomiting. Distal sedation, his blood pressure is marginal 104/60 this morning. Pulmonary team performed closely and help with vent management, his PEEP was increased today from 15-18. His oxygen saturation is guarded at 100% with FiO2 of 70%. Patient has marginal urine output at 20 mL/h and continue with normal saline at 80 mL per hour 07/09/2020 Patient remains in critical condition in the ICU, he is sedated and on mechanical ventilation with pulmonary/critical care team followed closely and management. He still needs high PEEP at 18. Today he had suspected left hand coldness and vascular surgery consult, no intervention indicated given his critical guarded condition. He had coffee-ground emesis yesterday and no such episodes, his aspirin was held as well as his Lovenox and switch his anticoagulation into argatroban drip . 4 dropping platelets 90,to 76K today. It NT chase is pending. His creatinine is worsening with nephrology on the case and patient was started on bicarbonate drip, his normal saline at 80 mL per hour was stopped He remains on ceftriaxone 2 g daily for sputum culture positive with streptococcus group C. Also he is on zinc, vitamin D, dexamethasone, Protonix twice daily and Carafate 07/10/2020 Patient remains in the ICU intubated and sedated with pulmonary/critical care team managing his friend, currently he is on PEEP 18 dropped to 15 today by pulmonary team. Despite his history of coffee ground vomitus he was started on argatroban drip for suspected left hand ischemia . Also he is on mild septic shock secondary to bacterial superimposed infection with streptococcus group C found in the blood and sputum cultures on the top of his bilateral Covid pneumonia. He has increased troponin leak secondary to Covid and creatinine is still elevated at 4.1 and followed closely by nephrology team Patient is tachypneic at 36 and blood pressure 121/51 Labs showing trending down WBC to 12.8 K, hemoglobin dropped to 8.9 and Carafate was stopped by coronary team. Platelets are stable 70 6K yesterday and 70 8K today. C-reactive protein is down to 16. Chest x-ray showing bilateral infiltrates. D-dimer was elevated at 34 and throatcalcitonin of 0.23 He remains on ceftriaxone 2 g per ID team, on zinc, vitamin D. Bicarbonate drip,argatroban drip, Protonix twice a day. While aspirating is kept on hold 07/11/2020 Patient in the ICU intubated and sedated. Followed by several consultants Left hand is improving however it is still dusky/bluish color. Tube feeding is in home due to coffee ground emesis. Vent management per pulmonary team, currently PEEP is lowered from 15 down to 10, hit antibodies are positive. Labs showing WBC 18 K, hemoglobin 10.0, platelets 141, creatinine is stable since yesterday at 4.1, LDH is a 1055, C-reactive protein is 13 only. On 07/10 patient was started on hemodialysis for worsening kidney function and creatinine and potassium with low urine output he is still sedated with Nimbex. Tube feeding was on hold due to his history of coffee ground vomitus recently. After the patient remains on argatroban and levophed drip Platelets 141, hemoglobin down to 10.0 K, WBC down to 18 LDH is 1055 and C-reactive protein is within the reference range at 13. Patient is afebrile. In the emergency room he was started on ceftriaxone for Covid and possible superinfection. Also sodium bicarb Was stopped and switched to tablets, normal saline is ordered by primary team, continue with argatroban drip . Also patient is an Protonix and dexamethasone and vitamins. Aspirin was disc ontinued as well as Lovenox. 07/13/2020 Patient was admitted hospital due to acute hypoxic respiratory failure and is currently on mechanical ventilator. Patient also developed acute kidney injury requiring hemodialysis. Patient is sedated. Assist-control 450, FiO2 50% and PEEP of 10. Patient is requiring low-dose norepinephrine drip. Afebrile. Chest x-ray showed relatively similar mid and lower lung consolidation left greater than right. Laboratory data showed WBC 13.7 hemoglobin 9.2 platelets 112 lymphocytes 0.6 D-dimer 13.34 Sodium 132 potassium 4.4 chloride 100 BUN 18 creatinine 3.57 calcium 8.3 phosphorus 8.0 ferritin 847 bilirubin 1.9 AST 71, ALT 93 LDH 1021 CK 406 CRP 70.8 and procalcitonin 0.58. Pulmonary and nephrology is on board. 07/14/2020 Patient is currently in MICU on mechanical ventilator and sedated. Assist- control 450 FiO2 50% and PEEP of 10 and respiratory 28. Chest x-ray showed stable bilateral lung infiltrates greater on the left. Laboratory data showed WBC 12.2 hemoglobin 8.7 platelets 121 lymphocytes 0.5 D- dimer is 9.42 BUN 96 and creatinine 3.97 calcium 8.4 ferritin 775 total bilirubin 1.7, AST 57 ALT 68 alk phos 87 LDH 1062 CPK 231 CRP 87.2 Patient is still low-dose norepinephrine drip. Continued on enteral feeding. Patient is scheduled for hemodialysis today. Patient is being continued dexamethasone, Eliquis and multivitamins. Pulmonary nephrology is following. 07/15/2020 Patient is currently in the MICU on mechanical ventilator. AC 450, FiO2 50% and PEEP of 8. Chest x-ray showed worsening bilateral lung infiltrates. Patient has been afebrile and requiring norepinephrine low-dose pressor support. Laboratory data showed WBC 11.6 hemoglobin 8.4 RDW 15.7 platelets 132 D-dimer is 9.0 sodium 130 potassium 4.4 bicarb is 22 BUN 84 and creatinine 3.73 ferritin 81 1.6 LDH 1061 CRP 78.3. Patient is being continued on dexamethasone and Eliquis and multivitamins. Continued on enteral tube feeding. Condition unchanged from yesterday. 07/16/2020 Patient is currently on mechanical ventilator and sedated. This is controlled for 50 respiration 28 and PEEP of 8. FiO2 70%. Chest x-ray showed unchanged appearance of patchy opacities involving the left lung and right base. Stable lines and tubes. Overnight patient was hypotensive and started back on Levophed drip. Patient is being dialyzed today. Currently on tube feeding. Laboratory data showed WBC 11.6 hemoglobin 9.5 platelets 134 neutrophils 10.3 and lymphocytes 0.6 D-dimer level is 9.95 Sodium 133 potassium 4.1 BUN 91 creatinine 3.93 ferritin 729 AST 49 ALT 52 alk phos 108 lactic acid 1103 CRP 62.7 07/17/2020 Patient is currently in the MICU. Patient was given sedation holiday yesterday was subsequently he decompensated and hypoxic and was placed back on sedation. On assist-control 450 with FiO2 60% and PEEP of 8. Patient able to tolerate hemodialysis with 2 L ultrafiltration yesterday. Currently on low-dose norepinephrine drip. Chest x-ray showed diffuse pulmonary infiltrates unchanged without any major interval changes. Laboratory data showed WBC 13.0, hemoglobin 8.2, d-dimer 6.05 Sodium 132 potassium 4.2 BUN 76 and creatinine 3.41, LDH 889 and CRP 4.4 Pulmonary and nephrology is on board. Current medications reviewed. Objective - Vital Signs Vital signs: Vital Signs Temp 97.7 F 07/17/20 16:00 Pulse 65 07/17/20 16:00 Resp 24 07/17/20 16:00 BP 112/54 07/17/20 16:00 Pulse Ox 88 L 07/17/20 16:00 Intake & Output 07/16/20 07/17/20 07/17/20 18:59 06:59 18:59 Intake Total 1163.437 833.116 856.148 Output Total 1735 345 310 Balance -571.563 488.116 546.148 Weight 128.2 kg 128.1 kg Intake: IV 276 299 207 0.9 NS 240 260 180 Pressure Bag 36 39 27 Intake, IV Titration 297.437 284.116 479.148 Amount Norepinephrine 8 mg In 84.116 98.65 Sodium Chloride 0.9% 250 ml @ 0.05 MCG/KG/MIN 11. 01 mls/hr IV .[id number] [facility] Rx#:[id number] fentaNYL (PF). 1,000 mcg 197.437 100 180.498 In Sodium Chloride 0.9% 80 ml @ Per Protocol IV . Q0M [facility] Rx#:[id number] propofoL 1,000 mg In 100 100 200 Empty Bag 1 bag @ Titrate IV .Q0M [facility] Rx#: [id number] Tube Feeding 180 140 110 Hemodialysis 300 Other 110 110 60 Output: Urine 435 345 310 Hemodialysis 1300 Other: Voiding Method Indwelling Catheter Indwelling Catheter Indwelling Catheter # Bowel Movements 1 - Exam - Exam -GENERAL: The patient is intubated and sedated, well nourished. HEENT: Pupils are round and equally reacting to light. No scleral icterus. No conjunctival pallor. Normocephalic, atraumatic. No pharyngeal erythema. No thyromegaly. CARDIOVASCULAR: S1 and S2 present. No murmurs, rubs, or gallops. PULMONARY: Chest is clear to auscultation, no wheezing or crackles. ABDOMEN: Soft, nontender, nondistended, normoactive bowel sounds. No palpable organomegaly. MUSCULOSKELETAL: No joint swelling or deformity. EXTREMITIES: No cyanosis, clubbing, or pedal edema. NEUROLOGICAL: Gross neurological examination did not reveal any focal deficits. SKIN: No rashes. no petechiae. - Labs CBC & Chem 7: 07/20/20 04:45 07/20/20 04:45 Labs: Abnormal Lab Results - Last 24 Hours (Table) 07/16/20 07/17/20 07/17/20 Range/Units 17:23 00:47 04:20 WBC (3.8-10.6) k/uL RBC (4.30-5.90) m/uL Hgb (13.0-17.5) gm/dL Hct (39.0-53.0) % RDW (11.5-15.5) % Plt Count (150-450) k/uL Fibrinogen 604 H (200-500) mg/dL D-Dimer 6.05 H (<0.60) mg/L FEU ABG pH (7.35-7.45) ABG pCO2 (35-45) mmHg ABG Total CO2 (19-24) mmol/L Sodium (137-145) mmol/L BUN (9-20) mg/dL Creatinine (0.66-1.25) mg/dL POC Glucose (mg/dL) 119 H 101 H (75-99) mg/dL Calcium (8.4-10.2) mg/dL Lactate Dehydrogenase (313-618) U/L C-Reactive Protein (<1.0) mg/dL Total Protein (6.3-8.2) g/dL Albumin (3.5-5.0) g/dL 07/17/20 07/17/20 07/17/20 Range/Units 04:20 04:20 04:35 WBC 13.0 H (3.8-10.6) k/uL RBC 2.71 L (4.30-5.90) m/uL Hgb 8.2 L (13.0-17.5) gm/dL Hct 24.2 L (39.0-53.0) % RDW 15.7 H (11.5-15.5) % Plt Count 125 L (150-450) k/uL Fibrinogen (200-500) mg/dL D-Dimer (<0.60) mg/L FEU ABG pH 7.29 L (7.35-7.45) ABG pCO2 48 H (35-45) mmHg ABG Total CO2 25 H (19-24) mmol/L Sodium 132 L (137-145) mmol/L BUN 76 H (9-20) mg/dL Creatinine 3.41 H (0.66-1.25) mg/dL POC Glucose (mg/dL) (75-99) mg/dL Calcium 8.2 L (8.4-10.2) mg/dL Lactate Dehydrogenase 889 H (313-618) U/L C-Reactive Protein 6.0 H (<1.0) mg/dL Total Protein 4.4 L (6.3-8.2) g/dL Albumin 2.3 L (3.5-5.0) g/dL 07/17/20 07/17/20 Range/Units 12:09 16:04 WBC (3.8-10.6) k/uL RBC (4.30-5.90) m/uL Hgb (13.0-17.5) gm/dL Hct (39.0-53.0) % RDW (11.5-15.5) % Plt Count (150-450) k/uL Fibrinogen (200-500) mg/dL D-Dimer (<0.60) mg/L FEU ABG pH (7.35-7.45) ABG pCO2 (35-45) mmHg ABG Total CO2 (19-24) mmol/L Sodium (137-145) mmol/L BUN (9-20) mg/dL Creatinine (0.66-1.25) mg/dL POC Glucose (mg/dL) 102 H 112 H (75-99) mg/dL Calcium (8.4-10.2) mg/dL Lactate Dehydrogenase (313-618) U/L C-Reactive Protein (<1.0) mg/dL Total Protein (6.3-8.2) g/dL Albumin (3.5-5.0) g/dL Assessment and Plan Assessment: Acute Covid pneumonia Acute hypoxic respiratory failure needing mechanical ventilation Acute kidney injury Due to ATN. Currently requiring HD Severe metabolic acidosis and hyperkalemia improved with hemodialysis Coagulase-negative staph aureus bacteremia Beta-hemolytic streptococcal for wound cultures. On ceftriaxone. Hypotension/septic shock requiring low-dose norepinephrine. Left upper extremity negative for DVT. Superficial thrombus in the left cephalic vein and left base leg pain Heparin-induced thrombocytopenia. Changed to argatroban and currently on Eliquis. Suspected ischemia of the left hand on anticoagulation and draped Coffee ground vomiting with suspected acute GI bleed Thrombocytopenia Elevated troponin, secondary to renal function impairment, viral infection and hypotension Plan: This is a pleasant 59 years old male who presents with Covid pneumonia, possible bacterial pneumonia/. Continue with mechanical ventilation for pulmonary/critical care team will follow the patient closely. Continue with multiple vitamin zinc and vitamin D, Eliquis. Continue with bicarbonate Keep monitoring hemoglobin and platelets Infectious disease, GI and cardiology, nephrology team on the case Labs and medication were reviewed. Continue with symptomatic treatment. Resume home medication. Monitor lytes and vitals. DVT and GI prophylaxis. Further recommendations as per clinical course of the patient DVT prophylaxis:Eliquis 2.5mg BID GI Prophylaxis: Ppi, Protonix twice a day Prognosis is guarded Time with Patient: Greater than 30
--- NOTE | 2020-07-20 11:21 | P.PN ---
Subjective Progress Note Date: 07/18/20 Principal diagnosis: Acute hypoxic respiratory failure secondary to Covid pneumonia requiring mechanical ventilation Acute kidney injury requiring hemodialysis This is a pleasant 53 years old male with past medical history of hypertension, osteoarthritis, sleep apnea. Presents with respiratory distress secondary to covid pneumonia and secondary bacterial infection is suspected as well with positive sputum culture for streptococcus, group C. Patient is currently monitored in the ICU because of his respiratory failure, currently on mechanical ventilation and need a small dose of Levophed at 4 g today. Also patient has elevated troponin and he was started on heparin drip however he developed coffee-ground emesis via anicteric tube, heparin drip was stopped and hemoglobin is stable and normal at 12.4 today. Multimedia Author found to his elevated troponin is secondary to his Covid infection and hypotension, Lovenox is on hold although patient has elevated d-dimer due to coffee ground vomiting. Distal sedation, his blood pressure is marginal 104/60 this morning. Pulmonary team performed closely and help with vent management, his PEEP was increased today from 15-18. His oxygen saturation is guarded at 100% with FiO2 of 70%. Patient has marginal urine output at 20 mL/h and continue with normal saline at 80 mL per hour 07/09/2020 Patient remains in critical condition in the ICU, he is sedated and on mechanical ventilation with pulmonary/critical care team followed closely and management. He still needs high PEEP at 18. Today he had suspected left hand coldness and vascular surgery consult, no intervention indicated given his critical guarded condition. He had coffee-ground emesis yesterday and no such episodes, his aspirin was held as well as his Lovenox and switch his anticoagulation into argatroban drip . 4 dropping platelets 90,to 76K today. It NT chase is pending. His creatinine is worsening with nephrology on the case and patient was started on bicarbonate drip, his normal saline at 80 mL per hour was stopped He remains on ceftriaxone 2 g daily for sputum culture positive with streptococcus group C. Also he is on zinc, vitamin D, dexamethasone, Protonix twice daily and Carafate 07/10/2020 Patient remains in the ICU intubated and sedated with pulmonary/critical care team managing his friend, currently he is on PEEP 18 dropped to 15 today by pulmonary team. Despite his history of coffee ground vomitus he was started on argatroban drip for suspected left hand ischemia . Also he is on mild septic shock secondary to bacterial superimposed infection with streptococcus group C found in the blood and sputum cultures on the top of his bilateral Covid pneumonia. He has increased troponin leak secondary to Covid and creatinine is still elevated at 4.1 and followed closely by nephrology team Patient is tachypneic at 36 and blood pressure 121/51 Labs showing trending down WBC to 12.8 K, hemoglobin dropped to 8.9 and Carafate was stopped by coronary team. Platelets are stable 70 6K yesterday and 70 8K today. C-reactive protein is down to 16. Chest x-ray showing bilateral infiltrates. D-dimer was elevated at 34 and throatcalcitonin of 0.23 He remains on ceftriaxone 2 g per ID team, on zinc, vitamin D. Bicarbonate drip,argatroban drip, Protonix twice a day. While aspirating is kept on hold 07/11/2020 Patient in the ICU intubated and sedated. Followed by several consultants Left hand is improving however it is still dusky/bluish color. Tube feeding is in home due to coffee ground emesis. Vent management per pulmonary team, currently PEEP is lowered from 15 down to 10, hit antibodies are positive. Labs showing WBC 18 K, hemoglobin 10.0, platelets 141, creatinine is stable since yesterday at 4.1, LDH is a 1055, C-reactive protein is 13 only. On 07/10 patient was started on hemodialysis for worsening kidney function and creatinine and potassium with low urine output he is still sedated with Nimbex. Tube feeding was on hold due to his history of coffee ground vomitus recently. After the patient remains on argatroban and levophed drip Platelets 141, hemoglobin down to 10.0 K, WBC down to 18 LDH is 1055 and C-reactive protein is within the reference range at 13. Patient is afebrile. In the emergency room he was started on ceftriaxone for Covid and possible superinfection. Also sodium bicarb Was stopped and switched to tablets, normal saline is ordered by primary team, continue with argatroban drip . Also patient is an Protonix and dexamethasone and vitamins. Aspirin was disc ontinued as well as Lovenox. 07/13/2020 Patient was admitted hospital due to acute hypoxic respiratory failure and is currently on mechanical ventilator. Patient also developed acute kidney injury requiring hemodialysis. Patient is sedated. Assist-control 450, FiO2 50% and PEEP of 10. Patient is requiring low-dose norepinephrine drip. Afebrile. Chest x-ray showed relatively similar mid and lower lung consolidation left greater than right. Laboratory data showed WBC 13.7 hemoglobin 9.2 platelets 112 lymphocytes 0.6 D-dimer 13.34 Sodium 132 potassium 4.4 chloride 100 BUN 18 creatinine 3.57 calcium 8.3 phosphorus 8.0 ferritin 847 bilirubin 1.9 AST 71, ALT 93 LDH 1021 CK 406 CRP 70.8 and procalcitonin 0.58. Pulmonary and nephrology is on board. 07/14/2020 Patient is currently in MICU on mechanical ventilator and sedated. Assist- control 450 FiO2 50% and PEEP of 10 and respiratory 28. Chest x-ray showed stable bilateral lung infiltrates greater on the left. Laboratory data showed WBC 12.2 hemoglobin 8.7 platelets 121 lymphocytes 0.5 D- dimer is 9.42 BUN 96 and creatinine 3.97 calcium 8.4 ferritin 775 total bilirubin 1.7, AST 57 ALT 68 alk phos 87 LDH 1062 CPK 231 CRP 87.2 Patient is still low-dose norepinephrine drip. Continued on enteral feeding. Patient is scheduled for hemodialysis today. Patient is being continued dexamethasone, Eliquis and multivitamins. Pulmonary nephrology is following. 07/15/2020 Patient is currently in the MICU on mechanical ventilator. AC 450, FiO2 50% and PEEP of 8. Chest x-ray showed worsening bilateral lung infiltrates. Patient has been afebrile and requiring norepinephrine low-dose pressor support. Laboratory data showed WBC 11.6 hemoglobin 8.4 RDW 15.7 platelets 132 D-dimer is 9.0 sodium 130 potassium 4.4 bicarb is 22 BUN 84 and creatinine 3.73 ferritin 81 1.6 LDH 1061 CRP 78.3. Patient is being continued on dexamethasone and Eliquis and multivitamins. Continued on enteral tube feeding. Condition unchanged from yesterday. 07/16/2020 Patient is currently on mechanical ventilator and sedated. This is controlled for 50 respiration 28 and PEEP of 8. FiO2 70%. Chest x-ray showed unchanged appearance of patchy opacities involving the left lung and right base. Stable lines and tubes. Overnight patient was hypotensive and started back on Levophed drip. Patient is being dialyzed today. Currently on tube feeding. Laboratory data showed WBC 11.6 hemoglobin 9.5 platelets 134 neutrophils 10.3 and lymphocytes 0.6 D-dimer level is 9.95 Sodium 133 potassium 4.1 BUN 91 creatinine 3.93 ferritin 729 AST 49 ALT 52 alk phos 108 lactic acid 1103 CRP 62.7 07/17/2020 Patient is currently in the MICU. Patient was given sedation holiday yesterday was subsequently he decompensated and hypoxic and was placed back on sedation. On assist-control 450 with FiO2 60% and PEEP of 8. Patient able to tolerate hemodialysis with 2 L ultrafiltration yesterday. Currently on low-dose norepinephrine drip. Chest x-ray showed diffuse pulmonary infiltrates unchanged without any major interval changes. Laboratory data showed WBC 13.0, hemoglobin 8.2, d-dimer 6.05 Sodium 132 potassium 4.2 BUN 76 and creatinine 3.41, LDH 889 and CRP 4.4 Pulmonary and nephrology is on board. 07/18/2020 Patient is MICU currently sedated and paralyzed and on mechanical ventilator. Assist-control 450 FiO2 50% and PEEP of 8. Chest x-ray showed bilateral mul tifocal and confluent opacities consistent with COVID-19 infection. No significant interval change from one day earlier. Laboratory data showed WBC 10.5, hemoglobin 8.5 platelets 129 d-dimer 5.4, fib ular nose and 576, sodium 1:30 potassium 4.1 BUN 84 and a creatinine 3.74 blood sugar is controlled, LDH 855 and CRP 5.2 by Pulmonary nephrology is following. Patient has been afebrile. Tolerating tube feeding. Continued on and abuts the form of ceftriaxone, dexamethasone 6 mg IV daily and added IV Lasix 80 mg every 12 as blood pressure tolerates. Blood cultures grew coagulase-negative staph aureus. Current medications reviewed. Objective - Vital Signs Vital signs: Vital Signs Temp 97.5 F L 07/18/20 08:00 Pulse 76 07/18/20 16:00 Resp 27 H 07/18/20 16:00 BP 138/59 07/18/20 16:00 Pulse Ox 96 07/18/20 16:00 Intake & Output 07/17/20 07/18/20 07/18/20 18:59 06:59 18:59 Intake Total 1016.770 742.874 808.830 Output Total 360 335 735 Balance 656.770 407.874 73.830 Weight 127.4 kg Intake: IV 253 276 193 0.9 NS 220 240 150 Pressure Bag 33 36 43 Intake, IV Titration 543.770 226.874 445.830 Amount Clevidipine Butyrate 25 0.633 mg In Empty Bag 1 bag @ 1 MG/HR 2 mls/hr IV .Q24H [facility] Rx#:[id number] Norepinephrine 8 mg In 120.23 181.298 Sodium Chloride 0.9% 250 ml @ 0.05 MCG/KG/MIN 11. 01 mls/hr IV .[id number] [facility] Rx#:[id number] cefTRIAXone 1 gm In 50 Sodium Chloride 0.9% 50 ml @ 100 mls/hr IVPB Q24HR [facility] Rx#:[id number] fentaNYL (PF). 1,000 mcg 180.498 169.916 93.005 In Sodium Chloride 0.9% 80 ml @ Per Protocol IV . Q0M [facility] Rx#:[id number] propofoL 1,000 mg In 243.042 56.958 120.894 Empty Bag 1 bag @ Titrate IV .Q0M [facility] Rx#: [id number] Tube Feeding 130 140 110 Other 90 100 60 Output: Urine 360 335 735 Other: Voiding Method Indwelling Catheter Indwelling Catheter Indwelling Catheter - Exam - Exam -GENERAL: The patient is intubated and sedated, well nourished. HEENT: Pupils are round and equally reacting to light. No scleral icterus. No conjunctival pallor. Normocephalic, atraumatic. No pharyngeal erythema. No thyromegaly. CARDIOVASCULAR: S1 and S2 present. No murmurs, rubs, or gallops. PULMONARY: Chest is clear to auscultation, no wheezing or crackles. ABDOMEN: Soft, nontender, nondistended, normoactive bowel sounds. No palpable organomegaly. MUSCULOSKELETAL: No joint swelling or deformity. EXTREMITIES: No cyanosis, clubbing, or pedal edema. NEUROLOGICAL: Gross neurological examination did not reveal any focal deficits. SKIN: No rashes. no petechiae. - Labs CBC & Chem 7: 07/20/20 04:45 07/20/20 04:45 Labs: Abnormal Lab Results - Last 24 Hours (Table) 0407/18/20 07/18/20 Range/Units 04:10 04:10 04:10 RBC 2.75 L (4.30-5.90) m/uL Hgb 8.5 L (13.0-17.5) gm/dL Hct 24.2 L (39.0-53.0) % RDW 15.7 H (11.5-15.5) % Plt Count 129 L (150-450) k/uL Fibrinogen 576 H (200-500) mg/dL D-Dimer 5.40 H (<0.60) mg/L FEU ABG pH (7.35-7.45) ABG pCO2 (35-45) mmHg ABG pO2 (83-108) mmHg ABG O2 Saturation (94-97) % Sodium 130 L (137-145) mmol/L Carbon Dioxide 20 L (22-30) mmol/L BUN 84 H (9-20) mg/dL Creatinine 3.74 H (0.66-1.25) mg/dL POC Glucose (mg/dL) (75-99) mg/dL Lactate Dehydrogenase 855 H (313-618) U/L C-Reactive Protein 5.2 H (<1.0) mg/dL Total Protein 4.6 L (6.3-8.2) g/dL Albumin 2.4 L (3.5-5.0) g/dL 07/18/20 07/18/20 07/18/20 Range/Units 05:55 12:29 12:45 RBC (4.30-5.90) m/uL Hgb (13.0-17.5) gm/dL Hct (39.0-53.0) % RDW (11.5-15.5) % Plt Count (150-450) k/uL Fibrinogen (200-500) mg/dL D-Dimer (<0.60) mg/L FEU ABG pH 7.26 L (7.35-7.45) ABG pCO2 48 H (35-45) mmHg ABG pO2 71 L (83-108) mmHg ABG O2 Saturation 93.0 L (94-97) % Sodium (137-145) mmol/L Carbon Dioxide (22-30) mmol/L BUN (9-20) mg/dL Creatinine (0.66-1.25) mg/dL POC Glucose (mg/dL) 65 L 116 H (75-99) mg/dL Lactate Dehydrogenase (313-618) U/L C-Reactive Protein (<1.0) mg/dL Total Protein (6.3-8.2) g/dL Albumin (3.5-5.0) g/dL Microbiology - Last 24 Hours (Table) 07/18/20 01:40 Gram Stain - Preliminary Sputum Sputum Culture - Preliminary Assessment and Plan Assessment: Acute Covid pneumonia Acute hypoxic respiratory failure needing mechanical ventilation Acute kidney injury Due to ATN. Currently requiring HD Severe metabolic acidosis and hyperkalemia improved with hemodialysis Coagulase-negative staph aureus bacteremia Beta-hemolytic streptococcal for wound cultures. On ceftriaxone. Hypotension/septic shock requiring low-dose norepinephrine. Left upper extremity negative for DVT. Superficial thrombus in the left cephalic vein and left base leg pain Heparin-induced thrombocytopenia. Changed to argatroban and currently on Eliquis. Suspected ischemia of the left hand on anticoagulation and draped Coffee ground vomiting with suspected acute GI bleed Thrombocytopenia Elevated troponin, secondary to renal function impairment, viral infection and h ypotension Plan: This is a pleasant 59 years old male who presents with Covid pneumonia, possible bacterial pneumonia/. Continue with mechanical ventilation for pulmonary/critical care team will follow the patient closely. Continue with multiple vitamin zinc and vitamin D, Eliquis. Continue with bicarbonate Keep monitoring hemoglobin and platelets Infectious disease, GI and cardiology, nephrology team on the case Labs and medication were reviewed. Continue with symptomatic treatment. Resume home medication. Monitor lytes and vitals. DVT and GI prophylaxis. Further recommendations as per clinical course of the patient DVT prophylaxis:Eliquis 2.5mg BID GI Prophylaxis: Ppi, Protonix twice a day Prognosis is guarded Time with Patient: Greater than 30
--- NOTE | 2020-07-20 11:23 | P.PN ---
Subjective Progress Note Date: 07/19/20 Principal diagnosis: Acute hypoxic respiratory failure secondary to Covid pneumonia requiring mechanical ventilation Acute kidney injury requiring hemodialysis This is a pleasant 53 years old male with past medical history of hypertension, osteoarthritis, sleep apnea. Presents with respiratory distress secondary to covid pneumonia and secondary bacterial infection is suspected as well with positive sputum culture for streptococcus, group C. Patient is currently monitored in the ICU because of his respiratory failure, currently on mechanical ventilation and need a small dose of Levophed at 4 g today. Also patient has elevated troponin and he was started on heparin drip however he developed coffee-ground emesis via anicteric tube, heparin drip was stopped and hemoglobin is stable and normal at 12.4 today. Diesel Electrician found to his elevated troponin is secondary to his Covid infection and hypotension, Lovenox is on hold although patient has elevated d-dimer due to coffee ground vomiting. Distal sedation, his blood pressure is marginal 104/60 this morning. Pulmonary team performed closely and help with vent management, his PEEP was increased today from 15-18. His oxygen saturation is guarded at 100% with FiO2 of 70%. Patient has marginal urine output at 20 mL/h and continue with normal saline at 80 mL per hour 07/09/2020 Patient remains in critical condition in the ICU, he is sedated and on mechanical ventilation with pulmonary/critical care team followed closely and management. He still needs high PEEP at 18. Today he had suspected left hand coldness and vascular surgery consult, no intervention indicated given his critical guarded condition. He had coffee-ground emesis yesterday and no such episodes, his aspirin was held as well as his Lovenox and switch his anticoagulation into argatroban drip . 4 dropping platelets 90,to 76K today. It NT chase is pending. His creatinine is worsening with nephrology on the case and patient was started on bicarbonate drip, his normal saline at 80 mL per hour was stopped He remains on ceftriaxone 2 g daily for sputum culture positive with streptococcus group C. Also he is on zinc, vitamin D, dexamethasone, Protonix twice daily and Carafate 07/10/2020 Patient remains in the ICU intubated and sedated with pulmonary/critical care team managing his friend, currently he is on PEEP 18 dropped to 15 today by pulmonary team. Despite his history of coffee ground vomitus he was started on argatroban drip for suspected left hand ischemia . Also he is on mild septic shock secondary to bacterial superimposed infection with streptococcus group C found in the blood and sputum cultures on the top of his bilateral Covid pneumonia. He has increased troponin leak secondary to Covid and creatinine is still elevated at 4.1 and followed closely by nephrology team Patient is tachypneic at 36 and blood pressure 121/51 Labs showing trending down WBC to 12.8 K, hemoglobin dropped to 8.9 and Carafate was stopped by coronary team. Platelets are stable 70 6K yesterday and 70 8K today. C-reactive protein is down to 16. Chest x-ray showing bilateral infiltrates. D-dimer was elevated at 34 and throatcalcitonin of 0.23 He remains on ceftriaxone 2 g per ID team, on zinc, vitamin D. Bicarbonate drip,argatroban drip, Protonix twice a day. While aspirating is kept on hold 07/11/2020 Patient in the ICU intubated and sedated. Followed by several consultants Left hand is improving however it is still dusky/bluish color. Tube feeding is in home due to coffee ground emesis. Vent management per pulmonary team, currently PEEP is lowered from 15 down to 10, hit antibodies are positive. Labs showing WBC 18 K, hemoglobin 10.0, platelets 141, creatinine is stable since yesterday at 4.1, LDH is a 1055, C-reactive protein is 13 only. On 07/10 patient was started on hemodialysis for worsening kidney function and creatinine and potassium with low urine output he is still sedated with Nimbex. Tube feeding was on hold due to his history of coffee ground vomitus recently. After the patient remains on argatroban and levophed drip Platelets 141, hemoglobin down to 10.0 K, WBC down to 18 LDH is 1055 and C-reactive protein is within the reference range at 13. Patient is afebrile. In the emergency room he was started on ceftriaxone for Covid and possible superinfection. Also sodium bicarb Was stopped and switched to tablets, normal saline is ordered by primary team, continue with argatroban drip . Also patient is an Protonix and dexamethasone and vitamins. Aspirin was disc ontinued as well as Lovenox. 07/13/2020 Patient was admitted hospital due to acute hypoxic respiratory failure and is currently on mechanical ventilator. Patient also developed acute kidney injury requiring hemodialysis. Patient is sedated. Assist-control 450, FiO2 50% and PEEP of 10. Patient is requiring low-dose norepinephrine drip. Afebrile. Chest x-ray showed relatively similar mid and lower lung consolidation left greater than right. Laboratory data showed WBC 13.7 hemoglobin 9.2 platelets 112 lymphocytes 0.6 D-dimer 13.34 Sodium 132 potassium 4.4 chloride 100 BUN 18 creatinine 3.57 calcium 8.3 phosphorus 8.0 ferritin 847 bilirubin 1.9 AST 71, ALT 93 LDH 1021 CK 406 CRP 70.8 and procalcitonin 0.58. Pulmonary and nephrology is on board. 07/14/2020 Patient is currently in MICU on mechanical ventilator and sedated. Assist- control 450 FiO2 50% and PEEP of 10 and respiratory 28. Chest x-ray showed stable bilateral lung infiltrates greater on the left. Laboratory data showed WBC 12.2 hemoglobin 8.7 platelets 121 lymphocytes 0.5 D- dimer is 9.42 BUN 96 and creatinine 3.97 calcium 8.4 ferritin 775 total bilirubin 1.7, AST 57 ALT 68 alk phos 87 LDH 1062 CPK 231 CRP 87.2 Patient is still low-dose norepinephrine drip. Continued on enteral feeding. Patient is scheduled for hemodialysis today. Patient is being continued dexamethasone, Eliquis and multivitamins. Pulmonary nephrology is following. 07/15/2020 Patient is currently in the MICU on mechanical ventilator. AC 450, FiO2 50% and PEEP of 8. Chest x-ray showed worsening bilateral lung infiltrates. Patient has been afebrile and requiring norepinephrine low-dose pressor support. Laboratory data showed WBC 11.6 hemoglobin 8.4 RDW 15.7 platelets 132 D-dimer is 9.0 sodium 130 potassium 4.4 bicarb is 22 BUN 84 and creatinine 3.73 ferritin 81 1.6 LDH 1061 CRP 78.3. Patient is being continued on dexamethasone and Eliquis and multivitamins. Continued on enteral tube feeding. Condition unchanged from yesterday. 07/16/2020 Patient is currently on mechanical ventilator and sedated. This is controlled for 50 respiration 28 and PEEP of 8. FiO2 70%. Chest x-ray showed unchanged appearance of patchy opacities involving the left lung and right base. Stable lines and tubes. Overnight patient was hypotensive and started back on Levophed drip. Patient is being dialyzed today. Currently on tube feeding. Laboratory data showed WBC 11.6 hemoglobin 9.5 platelets 134 neutrophils 10.3 and lymphocytes 0.6 D-dimer level is 9.95 Sodium 133 potassium 4.1 BUN 91 creatinine 3.93 ferritin 729 AST 49 ALT 52 alk phos 108 lactic acid 1103 CRP 62.7 07/17/2020 Patient is currently in the MICU. Patient was given sedation holiday yesterday was subsequently he decompensated and hypoxic and was placed back on sedation. On assist-control 450 with FiO2 60% and PEEP of 8. Patient able to tolerate hemodialysis with 2 L ultrafiltration yesterday. Currently on low-dose norepinephrine drip. Chest x-ray showed diffuse pulmonary infiltrates unchanged without any major interval changes. Laboratory data showed WBC 13.0, hemoglobin 8.2, d-dimer 6.05 Sodium 132 potassium 4.2 BUN 76 and creatinine 3.41, LDH 889 and CRP 4.4 Pulmonary and nephrology is on board. 07/18/2020 Patient is MICU currently sedated and paralyzed and on mechanical ventilator. Assist-control 450 FiO2 50% and PEEP of 8. Chest x-ray showed bilateral mul tifocal and confluent opacities consistent with COVID-19 infection. No significant interval change from one day earlier. Laboratory data showed WBC 10.5, hemoglobin 8.5 platelets 129 d-dimer 5.4, fib ular nose and 576, sodium 1:30 potassium 4.1 BUN 84 and a creatinine 3.74 blood sugar is controlled, LDH 855 and CRP 5.2 by Pulmonary nephrology is following. Patient has been afebrile. Tolerating tube feeding. Continued on and abuts the form of ceftriaxone, dexamethasone 6 mg IV daily and added IV Lasix 80 mg every 12 as blood pressure tolerates. Blood cultures grew coagulase-negative staph aureus. 07/19/2020 Patient is currently on mechanical ventilator. Patient failed weaning trials. Gen. surgery was consulted for possible tracheostomy and PEG tube placement On assist-control 450 FiO2 50% and PEEP of 6. Chest x-ray showed bilateral pulmonary infiltrates involving lower lobes without much change. Laboratory data showed WBC 9.1 hemoglobin 8.9 which is 148 d-dimer 6.68 sodium 135 potassium 3.9. 91 and creatinine 4.51 Sputum cultures grew beta hemolytic Streptococcus and Armida albicans. Repeat blood culture have been negative. Patient is being continued on ceftriaxone. Current medications reviewed. Objective - Vital Signs Vital signs: Vital Signs Temp 98.2 F 07/19/20 20:00 Pulse 83 07/19/20 21:00 Resp 24 07/19/20 21:00 BP 137/89 07/19/20 21:00 Pulse Ox 98 07/19/20 21:00 Intake & Output 07/19/20 07/19/20 07/20/20 06:59 18:59 06:59 Intake Total 413.894 253.763 178 Output Total 305 615 50 Balance 108.894 -361.237 128 Weight 128.9 kg 128.9 kg Intake: IV 143 150 18 0.9 NS 110 90 Pressure Bag 33 60 18 Intake, IV Titration 70.894 63.763 100 Amount Clevidipine Butyrate 25 23.333 mg In Empty Bag 1 bag @ 1 MG/HR 2 mls/hr IV .Q24H [facility] Rx#:[id number] Norepinephrine 8 mg In 0 Sodium Chloride 0.9% 250 ml @ 0.05 MCG/KG/MIN 11. 01 mls/hr IV .[id number] [facility] Rx#:[id number] cefTRIAXone 1 gm In 50 Sodium Chloride 0.9% 50 ml @ 100 mls/hr IVPB Q24HR [facility] Rx#:[id number] fentaNYL (PF). 1,000 mcg 47.561 5.771 In Sodium Chloride 0.9% 80 ml @ Per Protocol IV . Q0M [facility] Rx#:[id number] propofoL 1,000 mg In 7.992 100 Empty Bag 1 bag @ Titrate IV .Q0M PRAFUL Rx#: [id number] Tube Feeding 110 40 30 Other 90 30 Output: Urine 305 615 50 Other: Voiding Method Indwelling Catheter Indwelling Catheter Indwelling Catheter - Exam - Exam -GENERAL: The patient is intubated and sedated, well nourished. HEENT: Pupils are round and equally reacting to light. No scleral icterus. No conjunctival pallor. Normocephalic, atraumatic. No pharyngeal erythema. No thyromegaly. CARDIOVASCULAR: S1 and S2 present. No murmurs, rubs, or gallops. PULMONARY: Chest is clear to auscultation, no wheezing or crackles. ABDOMEN: Soft, nontender, nondistended, normoactive bowel sounds. No palpable organomegaly. MUSCULOSKELETAL: No joint swelling or deformity. EXTREMITIES: No cyanosis, clubbing, or pedal edema. NEUROLOGICAL: Gross neurological examination did not reveal any focal deficits. SKIN: No rashes. no petechiae. - Labs CBC & Chem 7: 07/20/20 04:45 07/20/20 04:45 Labs: Abnormal Lab Results - Last 24 Hours (Table) 07/19/20 07/19/20 07/19/20 Range/Units 04:34 04:45 04:45 RBC 2.92 L (4.30-5.90) m/uL Hgb 8.9 L (13.0-17.5) gm/dL Hct 25.7 L (39.0-53.0) % RDW 16.0 H (11.5-15.5) % Plt Count 148 L (150-450) k/uL Fibrinogen 642 H (200-500) mg/dL D-Dimer 6.68 H (<0.60) mg/L FEU ABG pH 7.31 L (7.35-7.45) ABG pO2 81 L (83-108) mmHg ABG HCO3 20 L (21-25) mmol/L Sodium (137-145) mmol/L Carbon Dioxide (22-30) mmol/L BUN (9-20) mg/dL Creatinine (0.66-1.25) mg/dL ALT (4-49) U/L Lactate Dehydrogenase (313-618) U/L C-Reactive Protein (<1.0) mg/dL Total Protein (6.3-8.2) g/dL Albumin (3.5-5.0) g/dL 07/19/20 Range/Units 04:45 RBC (4.30-5.90) m/uL Hgb (13.0-17.5) gm/dL Hct (39.0-53.0) % RDW (11.5-15.5) % Plt Count (150-450) k/uL Fibrinogen (200-500) mg/dL D-Dimer (<0.60) mg/L FEU ABG pH (7.35-7.45) ABG pO2 (83-108) mmHg ABG HCO3 (21-25) mmol/L Sodium 135 L (137-145) mmol/L Carbon Dioxide 18 L (22-30) mmol/L BUN 91 H (9-20) mg/dL Creatinine 4.51 H (0.66-1.25) mg/dL ALT 54 H (4-49) U/L Lactate Dehydrogenase 893 H (313-618) U/L C-Reactive Protein 4.2 H (<1.0) mg/dL Total Protein 4.8 L (6.3-8.2) g/dL Albumin 2.5 L (3.5-5.0) g/dL Microbiology - Last 24 Hours (Table) 07/18/20 01:40 Gram Stain - Preliminary Sputum Sputum Culture - Preliminary Armida albicans Assessment and Plan Assessment: Acute Covid pneumonia Acute hypoxic respiratory failure needing mechanical ventilation Acute kidney injury Due to ATN. Currently requiring HD Severe metabolic acidosis and hyperkalemia improved with hemodialysis Coagulase-negative staph aureus bacteremia Beta-hemolytic streptococcal for wound cultures. On ceftriaxone. Hypotension/septic shock requiring low-dose norepinephrine. Left upper extremity negative for DVT. Superficial thrombus in the left cephalic vein and left base leg pain Heparin-induced thrombocytopenia. Changed to argatroban and currently on Eliquis. Suspected ischemia of the left hand on anticoagulation and draped Coffee ground vomiting with suspected acute GI bleed Thrombocytopenia Elevated troponin, secondary to renal function impairment, viral infection and hypotension Plan: This is a pleasant 59 years old male who presents with Covid pneumonia, possible bacterial pneumonia/. Continue with mechanical ventilation for pulmonary/critical care team will follow the patient closely. Continue with multiple vitamin zinc and vitamin D, Eliquis. Continue with bicarbonate Keep monitoring hemoglobin and platelets Infectious disease, GI and cardiology, nephrology team on the case Labs and medication were reviewed. Continue with symptomatic treatment. Resume home medication. Monitor lytes and vitals. DVT and GI prophylaxis. Further recommendations as per clinical course of the patient DVT prophylaxis:Eliquis 2.5mg BID GI Prophylaxis: Ppi, Protonix twice a day Prognosis is guarded Time with Patient: Greater than 30
[2020-07-20 11:42] LABS: Glucose,Whole Blood 101 mg/dL (75-99)
--- NOTE | 2020-07-20 12:46 | P.PN ---
Subjective Progress Note Date: 07/20/20 Principal diagnosis: acute kidney injury Remains sedated and intubated in the ICU. He is scheduled for a PEG and tracheotomy placement today. Family was supposed to come in today to decide going comfort measures or to acute skilled long-term facility. They are opting for the PEG and trach and also will need a tunneled hemodialysis catheter. Objective - Vital Signs Vital signs: Vital Signs Temp 98.4 F 07/20/20 04:00 Pulse 87 07/20/20 06:56 Resp 24 07/20/20 06:56 BP 130/68 07/20/20 06:56 Pulse Ox 96 07/20/20 06:56 Intake & Output 07/19/20 07/20/20 07/20/20 18:59 06:59 18:59 Intake Total 253.763 435.422 186.600 Output Total 615 570 Balance -361.237 -134.578 186.600 Weight 128.9 kg 128.3 kg Intake: IV 150 78 0.9 NS 90 Pressure Bag 60 78 Intake, IV Titration 63.763 227.422 186.600 Amount Norepinephrine 8 mg In 0 127.422 4.257 Sodium Chloride 0.9% 250 ml @ 0.05 MCG/KG/MIN 11. 01 mls/hr IV .[id number] [facility] Rx#:[id number] cefTRIAXone 1 gm In 50 Sodium Chloride 0.9% 50 ml @ 100 mls/hr IVPB Q24HR [facility] Rx#:[id number] fentaNYL (PF). 1,000 mcg 5.771 82.343 In Sodium Chloride 0.9% 80 ml @ Per Protocol IV . Q0M [facility] Rx#:[id number] propofoL 1,000 mg In 7.992 100 100 Empty Bag 1 bag @ Titrate IV .Q0M [facility] Rx#: [id number] Tube Feeding 40 70 Other 60 Output: Urine 615 570 Other: Voiding Method Indwelling Catheter Indwelling Catheter - Exam General appearance: The patient is sedated on mechanical ventilation HET: Head is normocephalic and atraumatic. Neck: Supple without lymphadenopathy. Trachea midline. Abdomen: Soft, nontender, nondistended. Extremities: left groin with hemodialysis catheter intact without any signs of bleeding. bilateral lower extremity edema. Bilateral upper extremity edema. Left extremity with first through fourth finger tips with demarcation. Neurological: sedated on mechanical ventilation - Labs CBC & Chem 7: 07/20/20 04:45 07/20/20 04:45 Labs: Abnormal Lab Results - Last 24 Hours (Table) 07/19/20 07/20/20 07/20/20 Range/Units 23:55 04:45 04:45 RBC 2.66 L (4.30-5.90) m/uL Hgb 8.1 L (13.0-17.5) gm/dL Hct 23.6 L (39.0-53.0) % RDW 16.2 H (11.5-15.5) % Plt Count 126 L (150-450) k/uL Lymphocytes # 0.6 L (1.0-4.8) k/uL Fibrinogen 570 H (200-500) mg/dL D-Dimer 13.38 H (<0.60) mg/L FEU ABG pH (7.35-7.45) Sodium (137-145) mmol/L Carbon Dioxide (22-30) mmol/L BUN (9-20) mg/dL Creatinine (0.66-1.25) mg/dL POC Glucose (mg/dL) 104 H (75-99) mg/dL ALT (4-49) U/L Lactate Dehydrogenase (313-618) U/L Creatine Kinase (55-170) U/L C-Reactive Protein (<1.0) mg/dL Total Protein (6.3-8.2) g/dL Albumin (3.5-5.0) g/dL 07/20/20 07/20/20 07/20/20 Range/Units 04:45 05:50 05:52 RBC (4.30-5.90) m/uL Hgb (13.0-17.5) gm/dL Hct (39.0-53.0) % RDW (11.5-15.5) % Plt Count (150-450) k/uL Lymphocytes # (1.0-4.8) k/uL Fibrinogen (200-500) mg/dL D-Dimer (<0.60) mg/L FEU ABG pH 7.32 L (7.35-7.45) Sodium 133 L (137-145) mmol/L Carbon Dioxide 20 L (22-30) mmol/L BUN 82 H (9-20) mg/dL Creatinine 4.51 H (0.66-1.25) mg/dL POC Glucose (mg/dL) 103 H (75-99) mg/dL ALT 57 H (4-49) U/L Lactate Dehydrogenase 792 H (313-618) U/L Creatine Kinase 48 L (55-170) U/L C-Reactive Protein 5.6 H (<1.0) mg/dL Total Protein 4.8 L (6.3-8.2) g/dL Albumin 2.5 L (3.5-5.0) g/dL 07/20/20 Range/Units 11:41 RBC (4.30-5.90) m/uL Hgb (13.0-17.5) gm/dL Hct (39.0-53.0) % RDW (11.5-15.5) % Plt Count (150-450) k/uL Lymphocytes # (1.0-4.8) k/uL Fibrinogen (200-500) mg/dL D-Dimer (<0.60) mg/L FEU ABG pH (7.35-7.45) Sodium (137-145) mmol/L Carbon Dioxide (22-30) mmol/L BUN (9-20) mg/dL Creatinine (0.66-1.25) mg/dL POC Glucose (mg/dL) 101 H (75-99) mg/dL ALT (4-49) U/L Lactate Dehydrogenase (313-618) U/L Creatine Kinase (55-170) U/L C-Reactive Protein (<1.0) mg/dL Total Protein (6.3-8.2) g/dL Albumin (3.5-5.0) g/dL Microbiology - Last 24 Hours (Table) 07/18/20 01:40 Gram Stain - Final Sputum Sputum Culture - Final Armida albicans Assessment and Plan Assessment: 1. Acute kidney injury requiring hemodialysis 2. Left hand ischemia, microvascular occlusions, biphasic radial and ulnar signals 3. Acute hypoxic respiratory failure from covid pna 4. Thrombocytopenia 5. Hypertension 6. Obesity 7. Obstructive sleep apnea 8. Superficial venous thrombus Plan: 1. Continue symptomatic and supportive care 2. Patient will be scheduled for tunneled hemodialysis catheter placement tomorrow with Dr. Silva 3. Continue ICU management 4. Hemodialysis as ordered per nephrology 5. NPO after midnight Thank you for this consultation. The impression and plan of care has been dictated as directed. Dr. Rowe I performed a history and examination of this patient, discussed the same with the dictator. I agree with the dictator's note ,documented as a scribe. Any additional findings or plans will be noted.
[2020-07-20] MEDS: ZINC SULFATE 220 MG CAP PO SCH (13:30)
[2020-07-20] MEDS: CHOLECALCIFEROL 25 MCG (1000 IU) TABLET PO SCH (13:30)
[2020-07-20] MEDS: SERTRALINE 100 MG TAB PO SCH (13:30)
[2020-07-20] MEDS: CLEVIDIPINE BUTYRATE 25 MG in EMPTY BAG 1 BAG IV SCH (13:30)
[2020-07-20] MEDS: ARIPiprazole 5 MG TAB PO SCH ×2 (13:30→21:42)
--- NOTE | 2020-07-20 13:36 | PN ---
PROGRESS NOTE Patient is seen for followup for acute kidney injury, volume overload. He remains on the vent. The patient will be dialyzed again today. He had just come off Levophed. Urine output is at about 50-60 mL an hour. FiO2 is currently at about 50%. PHYSICAL EXAMINATION: On examination today, this morning blood pressure was 143/72, heart rate 88 per minute. Patient is afebrile. Case is discussed with nursing staff. Patient remains on the vent. He continues to have significant edema bilateral upper and lower extremities. He is tolerating tube feeds. STRUCTURAL DRAFTER exam cannot be performed. LABS: Labs show sodium 133, potassium 3.7, BUN 82, creatinine 4.5. ASSESSMENT: 1. Acute kidney injury, acute tubular necrosis, currently nonoliguric with severe volume overload. The patient was dialyzed yesterday. We will dialyze him again today but mostly for ultrafiltration for volume overload. 2. Metabolic acidosis associated with renal failure, improved with dialysis. 3. Acute hypoxic respiratory failure secondary to COVID pneumonia, currently on the vent. 4. Beta hemolytic group B strep in the sputum. 5. Hyperkalemia associated with acute kidney injury, metabolic acidosis, now resolved. PLAN: Continue with Lasix. We will proceed with ultrafiltration today about 1-2 L as tolerated. MMODL / IJN: [id number] /
--- NOTE | 2020-07-20 13:45 | P.PN ---
Subjective Progress Note Date: 07/20/20 Principal diagnosis: Acute hypoxic respiratory failure second to COVId 19 pneumonia The patient is seen today 07/12/2020 in follow-up in the intensive care unit. He remains intubated, sedated on the mechanical ventilator at assist control mode of a rate of 36, tidal volume 450, FiO2 40% and a PEEP of 10. Morning blood gases reveal pO2 of 69, pCO2 41, pH 7.35. He remains sedated on propofol at 60 mcg/kg/m, fentanyl at 1 mcg/kg/h, norepinephrine at 0.09 mcg/kg//min, the patient is currently on 0.9 saline at rate of 50 mL an hour. The patient has been off Nimbex since yesterday. He is continued on Argatroban at 0.5 mcg/kg/m. Being nourished with Nepro at 15 ML's per hour. He did receive hemodialysis yesterday with 1 L removed. Chest x-ray reveals mild bibasilar infiltrates. Sputum cultures positive for beta-hemolytic strep, group C. White count 18.1. Hemoglobin 10.6. Platelet count 141. D-dimer 19.69. Sodium 133. Potassium 4.7. Creatinine 4.14. LDH 1067, C-reactive protein 24. Remains on antibiotics in the form of ceftriaxone. Bronchodilators. Vitamin supplements. Dexamethasone. 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 The platelet count is stable and the platelet count is up to 136. On 07/12/2020, the patient is being seen for follow-up. The patient is a 59-year-old obese male patient with a BMI of 36.2 with known history of obstructive sleep apnea, presented with COVID 19 related pneumonia patient is currently intubated on a mechanical ventilator. The patient has been on a mechanical ventilator since 07/05/2020. 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 During the course of his treatment, the patient developed an acute kidney injury secondary to ATN secondary to "with 19 infection. Urine output was improving and the patient's urine output was in order of 20-25 mL an hour. Due to persistent hyperkalemia and worsening renal function, the patient was started on hemodialysis on 07/10/2020. The potassium level improved post-hemodialysis. The patient also had significant metabolic acidosis and the patient was given bicarb infusion. Electrolytes are being monitored. The patient got dialyzed yesterday and this was his second hemodialysis. Nephrology is on the case. He is currently on Decadron 6 mg IV every 24 hours. His chest x-ray is showing patchy by the pulmonary infiltrates in lower lobes, slightly worsening in the chest x-ray findings on today's evaluation mainly in the peripheries and ET tube is in a good location. The patient remains on a mechanical ventilator assist control mode. He is on Nepro at 60 mL an hour. 07/13/2020, I'm seeing this patient for a follow-up. This is a case of a 59-year-old male patient with Covid 19 related pneumonia and acute kidney injury currently on hemodialysis. Worn-out, the patient is sedated and this morning the patient is currently on propofol running at 6 60 mcg/kg per minute and fentanyl is running at 1 mcg/kg/h and this is the same sedation it was being provided yesterday. The patient is on no paralytics for now. The patient is on a mechanical ventilator, on this morning's evaluation, he is on assist-control at the rate of 28 with a tidal volume of 450 and FiO2 of 50% and PEEP is 10. Blood gases from today showing a pH of 7.37 with a pCO2 of 47 and pO2 of 63. Chest x-ray from today is showing diffuse bilateral pulmonary infiltrates more so in the lower lobes bilaterally. ET tube is in a good location. Comparing this chest x-ray from yesterday, there is no major interval change in the findings are essentially stable. His peak airway pressures 28. His static pressures 24. The patient is is still on Decadron 6 mg IV every 24 hours. D- dimer today's at 13.3, his LDH level is at 1021 and the CRP is at 4.6. Note that his inflammatory markers essentially compatible to yesterday. His echoes at 13.7 with a hemoglobin of 9.2. Platelet count is 112. I took the patient off Agratoban and he was also placed on Eliquis at a dose of 5 mg by mouth twice a day. Noted the patient also is an acute kidney injury. The patient underwent dialysis and the spot he has taken 3 sessions of hemodialysis. He is producing urine output in the order of 20-30 mL an hour. His last session of hemodialysis was yesterday. In terms of his electrolytes, his BUN is at 80 with a creatinine of 3.5 and a sodium of 132 with a potassium of 4.4. He is currently on enteral feeding for dizziness support and is currently on Nepro at the rate of 50 mL an hour. He is currently off Rocephin. He is afebrile. He is requiring low-dose pressors were norepinephrine 30 dose of 0.03 mcg/kg per minute. Otherwise, no other significant events. He is afebrile. Sedation holiday was not done yesterday. IV fluids are running at 0.9 at the rate of 50 mL an hour. 07/14/2020, patient is being seen for follow-up. Sedated and still on a mechanical ventilator, probable resolving. 60 mcg/kg per minute and the patient is also on fentanyl at 1 mcg/kg/h. Adequately sedated. On a mechanical ventilator essentially vent settings being at tidal volume of 450 with an FiO2 of 50% and a PEEP of 10 and a rate of 28. These are essentially the same settings as yesterday. As far as blood gases, pO2 is at 79 with a pCO2 of 45 and a pH is at 7.35. He d-dimer is at 9.42 and the rest of the inflammatory markers show an LDH of 1062 which is stable compared to yesterday and a CRP of 87, slightly elevated compared to yesterday. His CPK is down to 231. His pro calcitonin level was at 0.58 and note that the patient has dialysis-dependent renal failure. As far as his creatinine, his creatinine today is at 3.97 with a mean of 96. He did not receive dialysis yesterday. His urine output is in order of 30-40 mL an hour and the fluid balance has been +1.1 L over the past 24 hours. His chest x-ray from today is showing lower lobe pulmonary infiltrates, essentially stable compared to yesterday. ET tube remains in excellent location. IV fluids are running at 20 cc an hour of normal saline. He is afebrile. He is tolerating his enteral feeding for nutritional support. Norepinephrine infusion which is running at 0.05 mcg/kg per minute. He remains on Decadron 6 mg IV every 24 , platelet count is stable at 121 and 11 avoiding heparin. Patient holiday yesterday was ultimately aborted as the patient became quite agitated after several hours without any meaningful neurological response. 07/15/2020, the patient is being seen for a follow-up. Sedated with propofol running at 60 mcg/kg per minute and fentanyl is at 1 mcg/kg/h and the level of sedation essentially the same as yesterday. Remains on a mechanical ventilator. He is an assist-control mode at the rate of 24 with a tidal volume of 450 and a PEEP of 8 with a FiO2 of 50%. He had a blood gas showing pH of 7.33 with a pCO2 of 46 and pO2 of 73. Chest x-ray is unchanged, probably slightly worse on the left in terms of that the patient is seeing on today's chest x-ray. ET tube remains in a good location. Inflammatory markers from today show a d-dimer of 9 with a LDH level of 1061 and a CRP of 78, comparable to yesterday. His pro calcitonin level was low. He got dialyzed yesterday. I attempted to wean down the PEEP to 6 and this was not successful and the patient desaturated in the P EEP was brought back up to 8 yesterday. Meanwhile, he is afebrile. He is producing urine output in the order of 20-30 mL an hour. He is on normal saline at the rate of 20 mL an hour. He remains on Decadron 6 mg IV to 24 hours. His platelet count is 132 which is essentially stable and improved compared to yesterday. In terms of pressors, the patient is currently on norepinephrine infusion at 0.04 mcg/kg per minute. I will today's condition essentially unchanged and his condition essentially the same as compared to yesterday 07/16/2020, remains on a mechanical ventilator on propofol at the rate of 60 mcg/kg per minute and fentanyl is at 2 mcg/kg/h. He remains off paralytics. At around 6:00 this morning, the patient had some oxygen desaturation. Based on that, I increased his FiO2 up to 60%. Currently is an assist-control mode rate of 28 with a tidal volume of 450 and a PEEP of 8 chest x-ray still showing diffuse bilateral pulmonary infiltrates left more than right. The blood gas shows a pH of 7.31 with a pCO2 of 45 and pO2 of 68. This was on FiO2 of 70%. Inflammatory markers show a d-dimer of 9.9 with a LDH level of 1103 and a CRP level of 62. The patient is on Decadron 6 mg IV every 24 hours. The patient is also on anticoagulation with Eliquis 2.5 mg by mouth twice a day. His platelet counts is 135. The chest x-ray findings are obviously worse and there is some worsening in the evaluation in the right lung compared to yesterday. Note that the patient did not get dialyzed yesterday. Today is a dialysis day for him. He is also on norepinephrine infusion running at 0.08 mcg/kg per minute. There is enough to maintain his blood pressure. He is receiving enteral feeding for discharge support and currently is on Nepro at a rate of 50 mL an hour which is currently at goal. No other significant events. Is adequately sedated for now. 07/17/2020, the patient is being seen for a follow-up. This morning he is on a combination of propofol and fentanyl running at 60 mics for propofol and 1 g for fentanyl. He was given a sedation holiday and she was able to tolerate initiated subsequently he decompensated and became hypoxic and he had to be placed back on sedation. Noted the patient became asynchronous. This morning, he is back on a mechanical ventilator mode at the rate of 28 with a tidal volume of 450 and her FiO2 is at 60% with a PEEP of 8. He underwent dialysis yesterday with a total of 2 liters of ultrafiltration. Note that he was able to tolerated dialysis without any major issues. He is on a minimal dose of norepinephrine infusion running at 0.06 mcg/kg per minute for blood pressure control. On today's evaluation, peak air pressures around 27. The blood gases from today shows a pH of 7.29 with a pCO2 of 40 and pO2 of 99 and this was on FiO2 of 60%. As mentioned, his PEEP is at 8. Chest x-ray still showing diffuse breath and pulmonary infiltrates unchanged without any major interval improvement or worsening. White cell count is at 50 with a hemoglobin of 8.2. Creatinine is at 3.4 and a urine output is in order of 30 mL an hour. No plans for hemodialysis today. He is receiving enteral feeding for nutritional support with Nepro at the rate of 50 mL an hour. He is stooling. Still sedation dependent. Unable to wean him off sedation because of a 6 and mean oxygen desaturations. I have approach the and the family with a possibility of ainsertion of a tracheostomy tube and a PEG tube for prolonged need of mechanical ventilation and failure for weaning. The patient has been intubated since 07/05/2020. The inflammatory markers from today shows an LDH level of 889, CRP is at 6 and the d-dimer is at 6.05. The patient has palpable pulses in his left upper extremity. She of his fingers are necrotic and the tip including the index, the platelet counts are stable and the patient is currently on Eliq uis 2.5 mg by mouth twice a day. Or 2020, the patient remains sedated with a combination of propofol and fentanyl running at 50 mcg/kg per minute for propofol and 1 mcg/kg per hour for fentanyl. He is sedated. In fact is deeply sedated. We are going to proceed with a sedation holiday on this patient today. He remains on a mechanical ventilator. He remains on a assist-control rate of 28, tidal volume of 450, FiO2 of 50% with a PEEP of 8. Attempts to wean the PEEP further failed and the patient became more hypoxic. As such, the patient is living At 8. This patient is a 7.26 with a pCO2 of 48 and pO2 of 71 today's blood gas. His chest x-ray showing stable bilateral pulmonary infiltrates essentially involving the lower lobes. ET tube is in a good location. Note that the patient is producing urine output in the order of 8200 mL an hour. His net fluid balance over the past 24 hours has been -83 mL. He has had a with a positive fluid balance for today. The findings on the case. The intent of the dialysis 3 times a week. His last dialysis was done on Sunday which is 2 days ago. His creatinine is up to 3.7 with a BUN of 84. Rest of the electrolytes are normal. Affect is running a lower sodium level of 1:30 with a potassium level of 4.1. Serum bicarbs at 20. In terms of his COVID-19 related pneumonia, the patient has a LDH level of 855, CRP level of 5.2 and his most recent d-dimer is at 5.4. He remains on steroids and he is on Decadron 6 mg IV every 24 hours. He did have a component of hit syndrome. This was related to heparin. He did receive Agratroban was ultimately discontinued once the patient's stated count picked up and it's platelet count is currently at 129. He does have necrotic fingers in his left upper extremity. Adequate pulses in the radial. No new vascular insults noted on today's examination. He is receiving enteral feeding for nutritional support and is currently on Nepro at the rate of 10 mL an hour. He is stooling. He is on Rocephin for strep in history of the blood cultures on 2 separate occasions. Otherwise, the blood cultures positive for coagulase-negative staph. Patient was reevaluated today on 07/19/2020, remains intubated and mechanically ventilated, he is off sedation and he is not showing any signs of neurological not responding to any stimuli. Patient is on assist control rate of 24th of volume 450 FiO2 50% and PEEP of 6. ABG showed a pO2 of 81 pCO2 41 pH of 7.31 patient is on enteral feeding. And he may undergo dialysis. We plan to have a tracheostomy and PEG tube placement in this patient, and he is basically a failure to wean. Today the sedation is placed on hold. Chest x-ray continues to show bilateral pulmonary infiltrates involving lower lobes. Endotracheal tube is in the proper position. Patient is making good urine, however his renal functioning seems to be getting worse. Electrolytes are normal. BUN is 91 creatinine 4.51 LDH is 893 liver enzymes are borderline elevated, C-reactive protein is 4.2 d-dimer 6.68. WBC count is 9.1 hemoglobin is 8.9 On 07/20/2020 patient seen in follow-up in intensive care unit, he was given daily traction of sedation yesterday, and his sedation was on hold for several hours and the patient never woke up over open his eyes or follow any commands, and as the day went on he started breathing fast, started desaturated and get agitated and was he was placed back on sedation on which she remains today, currently on Diprivan at 40 mics per kilo per minute, and fentanyl infusion at 1 mics per kilo per minute, and levo fed has been discontinued, he is on assist- control mode of ventilation with assist control rate of 24, tidal volumes of 4 50, FiO2 of 50% and PEEP of 6, this morning's blood gas shows pO2 of 92, pCO2 42, and pH is 7.32. He is in sinus mechanism, slightly tachycardic, his tube feedings are currently on hold in case of possibility of tracheostomy and PEG tube insertion however were still awaiting a response from his family on the decision in regards to proceeding with trach and PEG placement, today he is receiving hemodialysis treatment, and a 3 L in fluid was removed today. In terms of urine output he has been making urine in the order of 50-70 ML per hour, he remains on Lasix 80 mg twice daily, he remains on Rocephin for evidence of a beta-hemolytic strep in the sputum cultures, his follow-up sputum culture only showed Armida. History of resting comfortably in bed, he remains on IV dexamethasone 6 mg daily, has been off the levofed. Breasts labs have been reviewed, his white blood cell count is 8.1, hemoglobin is 8.1, his platelet count is 126, d-dimer is 13.3, sodium is 133, potassium 3.7, his renal function is relatively stable, with BUN of 82, and creatinine 4.51. These LDH is 792, CRP is 48. His had no acute events overnight, we spoke to his daughter yesterday in regards to patient's condition, and to discuss tracheostomy and PEG tube insertion, awaiting response from the family on their decision and the daughter indicated that patient had poor quality of life to start with and the were not sure if the workup and consent to the trach and PEG Objective - Vital Signs Vital signs: Vital Signs Temp 98.0 F 07/20/20 13:00 Pulse 121 H 07/20/20 13:00 Resp 26 H 07/20/20 13:00 BP 126/71 07/20/20 13:00 Pulse Ox 96 07/20/20 06:56 Intake & Output 07/19/20 07/20/20 07/20/20 18:59 06:59 18:59 Intake Total 253.763 435.422 186.600 Output Total 720 297 3266 Balance -361.237 -134.578 -2813.400 Weight 128.9 kg 128.3 kg Intake: IV 150 78 0.9 NS 90 Pressure Bag 60 78 Intake, IV Titration 63.763 227.422 186.600 Amount Norepinephrine 8 mg In 0 127.422 4.257 Sodium Chloride 0.9% 250 ml @ 0.05 MCG/KG/MIN 11. 01 mls/hr IV .[id number] [facility] Rx#:[id number] cefTRIAXone 1 gm In 50 Sodium Chloride 0.9% 50 ml @ 100 mls/hr IVPB Q24HR [facility] Rx#:[id number] fentaNYL (PF). 1,000 mcg 5.771 82.343 In Sodium Chloride 0.9% 80 ml @ Per Protocol IV . Q0M [facility] Rx#:[id number] propofoL 1,000 mg In 7.992 100 100 Empty Bag 1 bag @ Titrate IV .Q0M [facility] Rx#: [id number] Tube Feeding 40 70 Other 60 Output: Urine 615 570 Hemodialysis 3000 Other: Voiding Method Indwelling Catheter Indwelling Catheter - Exam GENERAL EXAM: Sedated, intubated, morbidly obese 51-year-old white male, on as sist-control mode of ventilation with a 50% PEEP of 6, comfortable in no apparent distress. HEAD: Normocephalic/atraumatic. EYES: Normal reaction of pupils, equal size. Conjunctiva pink, sclera white. NOSE: Clear with pink turbinates. THROAT: No erythema or exudates. NECK: No masses, no JVD, no thyroid enlargement, no adenopathy. CHEST: No chest wall deformity. Symmetrical expansion. LUNGS: Equal air entry with no crackles, wheeze, rhonchi or dullness. CVS: Regular rate and rhythm, normal S1 and S2, no gallops, no murmurs, no rubs ABDOMEN: Soft, nontender. No hepatosplenomegaly, normal bowel sounds, no guarding or rigidity. EXTREMITIES: No clubbing, generalized edema no cyanosis, 2+ pulses and upper and lower extremities. MUSCULOSKELETAL: Muscle strength and tone normal. Right groin temporary hemodialysis catheter in place SPINE: No scoliosis or deformity SKIN: No rashes CENTRAL NERVOUS SYSTEM: Sedated, intubated. No focal deficits, tone is normal in all 4 extremities. - Labs CBC & Chem 7: 07/20/20 04:45 07/20/20 04:45 Labs: Abnormal Lab Results - Last 24 Hours (Table) 07/19/20 07/20/20 07/20/20 Range/Units 23:55 04:45 04:45 RBC 2.66 L (4.30-5.90) m/uL Hgb 8.1 L (13.0-17.5) gm/dL Hct 23.6 L (39.0-53.0) % RDW 16.2 H (11.5-15.5) % Plt Count 126 L (150-450) k/uL Lymphocytes # 0.6 L (1.0-4.8) k/uL Fibrinogen 570 H (200-500) mg/dL D-Dimer 13.38 H (<0.60) mg/L FEU ABG pH (7.35-7.45) Sodium (137-145) mmol/L Carbon Dioxide (22-30) mmol/L BUN (9-20) mg/dL Creatinine (0.66-1.25) mg/dL POC Glucose (mg/dL) 104 H (75-99) mg/dL ALT (4-49) U/L Lactate Dehydrogenase (313-618) U/L Creatine Kinase (55-170) U/L C-Reactive Protein (<1.0) mg/dL Total Protein (6.3-8.2) g/dL Albumin (3.5-5.0) g/dL 07/20/20 07/20/20 07/20/20 Range/Units 04:45 05:50 05:52 RBC (4.30-5.90) m/uL Hgb (13.0-17.5) gm/dL Hct (39.0-53.0) % RDW (11.5-15.5) % Plt Count (150-450) k/uL Lymphocytes # (1.0-4.8) k/uL Fibrinogen (200-500) mg/dL D-Dimer (<0.60) mg/L FEU ABG pH 7.32 L (7.35-7.45) Sodium 133 L (137-145) mmol/L Carbon Dioxide 20 L (22-30) mmol/L BUN 82 H (9-20) mg/dL Creatinine 4.51 H (0.66-1.25) mg/dL POC Glucose (mg/dL) 103 H (75-99) mg/dL ALT 57 H (4-49) U/L Lactate Dehydrogenase 792 H (313-618) U/L Creatine Kinase 48 L (55-170) U/L C-Reactive Protein 5.6 H (<1.0) mg/dL Total Protein 4.8 L (6.3-8.2) g/dL Albumin 2.5 L (3.5-5.0) g/dL 07/20/20 Range/Units 11:41 RBC (4.30-5.90) m/uL Hgb (13.0-17.5) gm/dL Hct (39.0-53.0) % RDW (11.5-15.5) % Plt Count (150-450) k/uL Lymphocytes # (1.0-4.8) k/uL Fibrinogen (200-500) mg/dL D-Dimer (<0.60) mg/L FEU ABG pH (7.35-7.45) Sodium (137-145) mmol/L Carbon Dioxide (22-30) mmol/L BUN (9-20) mg/dL Creatinine (0.66-1.25) mg/dL POC Glucose (mg/dL) 101 H (75-99) mg/dL ALT (4-49) U/L Lactate Dehydrogenase (313-618) U/L Creatine Kinase (55-170) U/L C-Reactive Protein (<1.0) mg/dL Total Protein (6.3-8.2) g/dL Albumin (3.5-5.0) g/dL Microbiology - Last 24 Hours (Table) 07/18/20 01:40 Gram Stain - Final Sputum Sputum Culture - Final Armida albicans Assessment and Plan Plan: Acute hypoxic respiratory failure secondary to COVID-19 pneumonia. Patient received toci and convalescent plasma. Acute kidney injury requiring dialysis. Severe metabolic acidosis, improved and resolved after dialysis. Hyperkalemia secondary to above. Benign essential hypertension. 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 Plan: Continue same vent settings Labs blood gases and chest x-ray reviewed Hemodialysis today Continue Lasix Continue antibiotics, same dose Decadron Eliquis on hold possibility of tracheostomy tube placement Discussed with his daughter the need for tracheostomy and PEG tube placement and the daughter was not sure the family wants to proceed with it as the patient had medical debility and poor functioning at baseline Awaiting family's response Supportive care Nutritional support Give another daily interrutpion of sedation Continue to closely follow in the intensive care unit I performed a history & physical examination of the patient and discussed their management with my nurse practitioner, Nelia Conley. I reviewed the nurse practitioner's note and agree with the documented findings and plan of care. Lung sounds are positive for diminished breath sounds The findings and the impression was discussed with the patient. I attest to the documentation by the nurse practitioner. Time with Patient: Greater than 30
--- NOTE | 2020-07-20 14:21 | P.PN ---
Subjective Progress Note Date: 07/20/20 CHIEF COMPLAINT: Shortness of breath HISTORY OF PRESENT ILLNESS: Patient currently in the ICU and on mechanical ventilation. He has been on the vent since 07/05/2020. He has acute hypoxic respiratory failure due to COVID-19 pneumonia. He also has HIT. And he has been on Eliquis for DVT. Eliquis is currently on hold for trach and PEG placement. Trach and PEG placement for today has been canceled. Anticipate trach and PEG placement tomorrow. Patient is afebrile. WBC 8.1 PHYSICAL EXAM: VITAL SIGNS: Reviewed. GENERAL: Well-developed in no acute distress. HEENT: No sclera icterus. Extraocular movements grossly intact. Moist buccal mucosa. Head is atraumatic, normocephalic. ABDOMEN: Soft. Nondistended. Nontender. NEUROLOGIC: Intubated and sedated ASSESSMENT: 1. Acute hypoxic respiratory failure secondary to acute COVID-19 pneumonia with prolonged mechanical ventilation 2. Protein calorie malnutrition 3. Acute kidney injury requiring hemodialysis 4. Left upper extremity DVT patient had been on Eliquis 5. Heparin-induced thrombocytopenia PLAN: -Patient is scheduled for tracheostomy and PEG tube placement for tomorrow, 07/21/[address] Mcdowell -Keep Eliquis on hold -Hold tube feedings after midnight -Continue ICU management -Continue supportive care Physician Music Adapter note has been reviewed by physician. Signing provider agrees with the documented findings, assessment, and plan of care. Objective - Vital Signs Vital signs: Vital Signs Temp 98.0 F 07/20/20 13:00 Pulse 121 H 07/20/20 13:00 Resp 26 H 07/20/20 13:00 BP 126/71 07/20/20 13:00 Pulse Ox 96 07/20/20 06:56 Intake & Output 07/19/20 07/20/20 07/20/20 18:59 06:59 18:59 Intake Total 253.763 435.422 260.070 Output Total 139 398 1179 Balance -361.237 -134.578 -2739.930 Weight 128.9 kg 128.3 kg Intake: IV 150 78 0.9 NS 90 Pressure Bag 60 78 Intake, IV Titration 63.763 227.422 260.070 Amount Norepinephrine 8 mg In 0 127.422 4.257 Sodium Chloride 0.9% 250 ml @ 0.05 MCG/KG/MIN 11. 01 mls/hr IV .[id number] [facility] Rx#:[id number] cefTRIAXone 1 gm In 50 Sodium Chloride 0.9% 50 ml @ 100 mls/hr IVPB Q24HR [facility] Rx#:[id number] fentaNYL (PF). 1,000 mcg 5.771 94.229 In Sodium Chloride 0.9% 80 ml @ Per Protocol IV . Q0M [facility] Rx#:[id number] propofoL 1,000 mg In 7.992 100 161.584 Empty Bag 1 bag @ Titrate IV .Q0M [facility]UL Rx#: [id number] Tube Feeding 40 70 Other 60 Output: Urine 615 570 Hemodialysis 3000 Other: Voiding Method Indwelling Catheter Indwelling Catheter - Labs CBC & Chem 7: 07/20/20 04:45 07/20/20 04:45 Labs: Abnormal Lab Results - Last 24 Hours (Table) 07/19/20 07/20/20 07/20/20 Range/Units 23:55 04:45 04:45 RBC 2.66 L (4.30-5.90) m/uL Hgb 8.1 L (13.0-17.5) gm/dL Hct 23.6 L (39.0-53.0) % RDW 16.2 H (11.5-15.5) % Plt Count 126 L (150-450) k/uL Lymphocytes # 0.6 L (1.0-4.8) k/uL Fibrinogen 570 H (200-500) mg/dL D-Dimer 13.38 H (<0.60) mg/L FEU ABG pH (7.35-7.45) Sodium (137-145) mmol/L Carbon Dioxide (22-30) mmol/L BUN (9-20) mg/dL Creatinine (0.66-1.25) mg/dL POC Glucose (mg/dL) 104 H (75-99) mg/dL ALT (4-49) U/L Lactate Dehydrogenase (313-618) U/L Creatine Kinase (55-170) U/L C-Reactive Protein (<1.0) mg/dL Total Protein (6.3-8.2) g/dL Albumin (3.5-5.0) g/dL 07/20/20 07/20/2021 Range/Units 04:45 05:50 05:52 RBC (4.30-5.90) m/uL Hgb (13.0-17.5) gm/dL Hct (39.0-53.0) % RDW (11.5-15.5) % Plt Count (150-450) k/uL Lymphocytes # (1.0-4.8) k/uL Fibrinogen (200-500) mg/dL D-Dimer (<0.60) mg/L FEU ABG pH 7.32 L (7.35-7.45) Sodium 133 L (137-145) mmol/L Carbon Dioxide 20 L (22-30) mmol/L BUN 82 H (9-20) mg/dL Creatinine 4.51 H (0.66-1.25) mg/dL POC Glucose (mg/dL) 103 H (75-99) mg/dL ALT 57 H (4-49) U/L Lactate Dehydrogenase 792 H (313-618) U/L Creatine Kinase 48 L (55-170) U/L C-Reactive Protein 5.6 H (<1.0) mg/dL Total Protein 4.8 L (6.3-8.2) g/dL Albumin 2.5 L (3.5-5.0) g/dL 07/20/20 Range/Units 11:41 RBC (4.30-5.90) m/uL Hgb (13.0-17.5) gm/dL Hct (39.0-53.0) % RDW (11.5-15.5) % Plt Count (150-450) k/uL Lymphocytes # (1.0-4.8) k/uL Fibrinogen (200-500) mg/dL D-Dimer (<0.60) mg/L FEU ABG pH (7.35-7.45) Sodium (137-145) mmol/L Carbon Dioxide (22-30) mmol/L BUN (9-20) mg/dL Creatinine (0.66-1.25) mg/dL POC Glucose (mg/dL) 101 H (75-99) mg/dL ALT (4-49) U/L Lactate Dehydrogenase (313-618) U/L Creatine Kinase (55-170) U/L C-Reactive Protein (<1.0) mg/dL Total Protein (6.3-8.2) g/dL Albumin (3.5-5.0) g/dL Microbiology - Last 24 Hours (Table) 07/18/20 01:40 Gram Stain - Final Sputum Sputum Culture - Final Armida albicans
--- NOTE | 2020-07-20 17:37 | EEG ---
ELECTROENCEPHALOGRAM REPORT DATE OF SERVICE: 07/20/2020 PREAMBLE: This is a 59-year-old male with history of COVID-19 pneumonia, on ventilator, no sedation. Patient is not responsive. Therefore, this EEG is performed. Question for possible comfort care. EEG FINDINGS: This is a 21 channel routine EEG recording in a patient utilizing 10/20 international system with referential and bipolar montages. The recording starts and continues with presence of diffuse moderate amplitude 1-2 hertz delta slowing, which is seen more frontally and more suppressed background in the occipital region. Background does not seem to be reactive to photic stimulation. Different stages of sleep were not seen. No focal or generalized epileptiform activity was seen. IMPRESSION: This is an abnormal EEG due to background slowing of severe degree. This is suggestive of generalized cerebral dysfunction as can be seen with encephalopathy of toxic, metabolic or anoxic etiology. No epileptiform activity was seen. MMODL / IJN: [id number] /
[2020-07-20 18:03] LABS: Glucose,Whole Blood 108 mg/dL (75-99)
[2020-07-20 18:56] LABS: Ferritin 1037.3 ng/mL (22.0-322.0)
--- NOTE | 2020-07-20 19:25 | P.CNNES ---
History of Present Illness Consult date: 07/20/20 Requesting physician: Katya Lora Reason for Consult: Evaluate neuro function History of Present Illness: Patient is a 59-year-old male came to the hospital on 07/04/2020 after he was tested positive for COVID-19, 8 days prior to arrival, developed increased weakness and difficulty breathing. He has a worsening cough. Patient underwent intubation for respiratory failure. Patient has received Toci, and convalescent plasma. Subsequently he developed acute kidney injury from 07/04/2020, subsequently requiring dialysis. Patient has severe metabolic acidosis, improved and resolved after dialysis. Also has hyperlipidemia, hypertension, superficial vein thrombosis and left cephalic vein and left basilic vein. Si milarly also developed heparin-induced thrombocytopenia, obstructive sleep apnea. Patient also has developed left hand ischemia, microvascular occlusions, biphasic radial and ulnar signals. Patient continues to require dialysis. He is being considered for tunneled hemodialysis catheter placement. Patient underwent EEG today, which was severely abnormal EEG due to background slowing of severe degree. This is suggestive of generalized cerebral dysfunction as can be seen with encephalopathy of toxic, metabolic or anoxic etiology. No epileptiform activity was seen. Patient's blood test shows hemoglobin 8.1, WBC 8.1, platelets 126. ABG shows pH 7.32, pCO2 42, pO2 92 and saturation 97%. Sodium 133 potassium 3.7, BUN 82, creatinine 4.51. AST is normal, ALT mildly elevated 57. CK is low 48. Patient had positive blood cultures any Melody on 07/04/2020, coagulase-negative staph. Subsequent cultures have been negative. Patient also had acute elevation of cardiac enzymes on 07/04/2020. Patient had a CT of chest without contrast which revealed moderately severe pulmonary interstitial edema. Most recent chest x- ray showed progressive severe bilateral airspace disease now with obscuration of the heart Review of Systems ROS unobtainable: due to endotracheal tube, due to mental status Past Medical History Past Medical History: Hypertension, Osteoarthritis (OA), Sleep Apnea/CPAP/BIPAP Additional Past Medical History / Comment(s): Pt tested covid + on 06/26/20 at [facility]. Pt is legally blind, htn but pt was having issues with swelling so he stopped taking htn med, RENETTA without device d/t pt unable to see well enough to keep it clean, chronic low back pain, diverticular disease, benign colon polyp. History of Any Multi-Drug Resistant Organisms: None Reported Past Surgical History: Appendectomy Additional Past Surgical History / Comment(s): Colonoscopy/benign polyp Past Anesthesia/Blood Transfusion Reactions: No Reported Reaction Smoking Status: Former smoker - Past Family History Father Family Medical History: CVA/TIA, Hypertension Mother Family Medical History: No Reported History Brother(s) Family Medical History: Hypertension Sister(s) Family Medical History: Cancer Medications and Allergies Home Medications Medication Instructions Recorded Confirmed Type Sertraline HCl [Zoloft] 200 mg PO DAILY 10/24/14 07/04/20 History ARIPiprazole [Abilify] 5 mg PO BID 08/14/18 07/04/20 History ALPRAZolam [Xanax] 0.25 mg PO DAILY PRN 07/04/20 07/04/20 History Cholecalciferol (Vitamin D3) 125 mcg PO DAILY 07/04/20 07/04/20 History [Vitamin D3 (5000 Iu)] Zinc 50 mg PO DAILY 07/04/20 07/04/20 History Allergies Allergy/AdvReac Type Severity Reaction Status Date / Time Penicillins Allergy Anaphylaxis Verified 07/04/20 20:26 Physical Examination - Vital Signs Vital Signs: Vital Signs Temp Pulse Resp BP Pulse Ox 07/20/20 17:00 96 24 117/65 98 07/20/20 16:00 98.1 F 122 H 30 H 110/57 98 07/20/20 15:00 115 H 24 137/81 99 07/20/20 14:00 123 H 24 152/84 99 07/20/20 13:00 98.0 F 115 H 24 143/79 99 07/20/20 12:00 115 H 26 H 111/62 98 07/20/20 11:00 124 H 26 H 131/80 98 07/20/20 10:00 92 24 105/60 98 07/20/20 09:00 98 24 121/64 98 07/20/20 08:00 98.4 F 115 H 24 134/67 98 07/20/20 06:56 87 24 130/68 96 07/20/20 05:59 88 24 143/72 98 07/20/20 05:00 92 25 H 143/76 98 07/20/20 04:00 98.4 F 84 26 H 130/68 97 07/20/20 03:00 92 26 H 138/72 98 07/20/20 02:00 89 25 H 139/73 97 07/20/20 01:00 88 24 141/75 97 07/20/20 00:00 98.2 F 84 24 125/66 97 07/19/20 23:00 81 24 127/68 98 07/19/20 22:00 82 24 129/69 97 07/19/20 21:00 83 24 137/89 98 07/19/20 20:00 98.2 F 84 24 122/85 98 07/19/20 19:00 86 24 107/59 99 07/19/20 18:00 98.4 F 85 24 112/64 99 Intake and Output 07/20/20 07/20/20 07/20/20 06:59 14:59 22:59 Intake Total 241.422 302.070 18 Output Total 495 3575 20 Balance -253.578 -3272.930 -2 Intake: IV 54 42 18 Pressure Bag 54 42 18 Intake, IV Titration 127.422 260.070 Amount Norepinephrine 8 mg In 127.422 4.257 Sodium Chloride 0.9% 250 ml @ 0.05 MCG/KG/MIN 11. 01 mls/hr IV .[id number] [facility] Rx#:[id number] fentaNYL (PF). 1,000 mcg 94.229 In Sodium Chloride 0.9% 80 ml @ Per Protocol IV . Q0M [facility] Rx#:[id number] propofoL 1,000 mg In 161.584 Empty Bag 1 bag @ Titrate IV .Q0M PR[facility] Rx#: [id number] Tube Feeding 30 Other 30 Output: Urine 495 575 20 Hemodialysis 3000 Other: Voiding Method Indwelling Catheter Indwelling Catheter Indwelling Catheter Weight 128.3 kg On examination patient is a middle aged male, morbidly obese, who is on mechanical ventilation, appears to be in distress, gurgling. Patient is off sedation since 10 AM. Patient is not responding to calling his name, or with deep nail bed pressure. No obvious seizure activity noted. His pupils are round and reacting to light. Oculocephalics are absent. Corneals are present. Face appears symmetric. Hearing and shoulder shrug cannot be assessed. Patient has decreased tone in the hands bilaterally, left worse than right, probably f rom distal ischemia. Patient appears to have a flail left hand. Patient has evidence of demarcation in the fingertips of left hand from ischemia. Vascular surgery on board. Reflexes are absent, plantars are flat. Cerebellar functions cannot be assessed. Patient has peripheral edema. Abdomen appears soft. Results - Laboratory Findings CBC and BMP: 07/20/20 04:45 07/20/20 04:45 Abnormal Lab Findings: Abnormal Labs 07/04/20 07/04/20 07/04/20 19:14 19:14 19:14 WBC RBC Hgb Hct RDW Plt Count Neutrophils # Neutrophils # (Manual) Lymphocytes # 0.9 L Lymphocytes # (Manual) Metamyelocytes # (Man) Myelocytes # (Manual) APTT Fibrinogen D-Dimer 0.68 H ABG pH ABG pCO2 ABG pO2 ABG HCO3 ABG Total CO2 ABG O2 Saturation Sodium 134 L Potassium Chloride Carbon Dioxide 20 L BUN 31 H Creatinine 1.38 H Glucose 135 H POC Glucose (mg/dL) Plasma Lactic Acid Reed Calcium Phosphorus Magnesium Ferritin 1464.2 H Total Bilirubin 2.0 H AST 147 H ALT 81 H Lactate Dehydrogenase 1334 H LD Isoenzymes LD 1 LD 2 LD 4 LD 5 Creatine Kinase Troponin I C-Reactive Protein 260.5 H Total Protein Albumin Procalcitonin Urine Protein Urine Ketones Urine Blood Urine WBC Urine WBC Clumps Urine Bacteria Hyaline Casts Urine Mucus Coronavirus (PCR) 07/04/20 07/04/20 07/04/20 19:14 19:14 19:14 WBC RBC Hgb Hct RDW Plt Count Neutrophils # Neutrophils # (Manual) Lymphocytes # Lymphocytes # (Manual) Metamyelocytes # (Man) Myelocytes # (Manual) APTT Fibrinogen D-Dimer ABG pH ABG pCO2 ABG pO2 ABG HCO3 ABG Total CO2 ABG O2 Saturation Sodium Potassium Chloride Carbon Dioxide BUN Creatinine Glucose POC Glucose (mg/dL) Plasma Lactic Acid Reed 4.8 H* Calcium Phosphorus Magnesium Ferritin Total Bilirubin AST ALT Lactate Dehydrogenase LD Isoenzymes LD 1 LD 2 LD 4 LD 5 Creatine Kinase Troponin I 1.270 H* C-Reactive Protein Total Protein Albumin Procalcitonin 0.23 H Urine Protein Urine Ketones Urine Blood Urine WBC Urine WBC Clumps Urine Bacteria Hyaline Casts Urine Mucus Coronavirus (PCR) 07/04/20 07/04/20 07/05/20 19:14 22:12 01:30 WBC RBC Hgb Hct RDW Plt Count Neutrophils # Neutrophils # (Manual) Lymphocytes # Lymphocytes # (Manual) Metamyelocytes # (Man) Myelocytes # (Manual) APTT Fibrinogen D-Dimer ABG pH ABG pCO2 ABG pO2 ABG HCO3 ABG Total CO2 ABG O2 Saturation Sodium Potassium Chloride Carbon Dioxide BUN Creatinine Glucose POC Glucose (mg/dL) Plasma Lactic Acid Reed 5.2 H* Calcium Phosphorus Magnesium Ferritin Total Bilirubin AST ALT Lactate Dehydrogenase LD Isoenzymes LD 1 LD 2 LD 4 LD 5 Creatine Kinase Troponin I C-Reactive Protein Total Protein Albumin Procalcitonin Urine Protein 2+ H Urine Ketones Trace H Urine Blood Small H Urine WBC 15 H Urine WBC Clumps Few H Urine Bacteria Occasional H Hyaline Casts 222 H Urine Mucus Many H Coronavirus (PCR) Detected A 07/05/20 07/05/20 07/05/20 01:32 03:00 05:09 WBC RBC 4.27 L Hgb 12.5 L Hct 36.8 L RDW Plt Count Neutrophils # Neutrophils # (Manual) Lymphocytes # 0.7 L Lymphocytes # (Manual) Metamyelocytes # (Man) Myelocytes # (Manual) APTT Fibrinogen D-Dimer ABG pH ABG pCO2 ABG pO2 ABG HCO3 ABG Total CO2 ABG O2 Saturation Sodium Potassium Chloride Carbon Dioxide BUN Creatinine Glucose POC Glucose (mg/dL) Plasma Lactic Acid Reed 10.0 H* Calcium Phosphorus Magnesium Ferritin Total Bilirubin AST ALT Lactate Dehydrogenase LD Isoenzymes LD 1 LD 2 LD 4 LD 5 Creatine Kinase Troponin I 0.997 H* C-Reactive Protein Total Protein Albumin Procalcitonin Urine Protein Urine Ketones Urine Blood Urine WBC Urine WBC Clumps Urine Bacteria Hyaline Casts Urine Mucus Coronavirus (PCR) 07/05/20 07/05/20 07/05/20 05:09 05:09 05:09 WBC RBC Hgb Hct RDW Plt Count Neutrophils # Neutrophils # (Manual) Lymphocytes # Lymphocytes # (Manual) Metamyelocytes # (Man) Myelocytes # (Manual) APTT 35.4 H Fibrinogen D-Dimer ABG pH ABG pCO2 ABG pO2 ABG HCO3 ABG Total CO2 ABG O2 Saturation Sodium 134 L Potassium Chloride Carbon Dioxide BUN 39 H Creatinine 1.70 H Glucose 136 H POC Glucose (mg/dL) Plasma Lactic Acid Reed 4.4 H* Calcium 7.9 L Phosphorus Magnesium Ferritin Total Bilirubin AST ALT Lactate Dehydrogenase LD Isoenzymes LD 1 LD 2 LD 4 LD 5 Creatine Kinase Troponin I C-Reactive Protein Total Protein Albumin Procalcitonin Urine Protein Urine Ketones Urine Blood Urine WBC Urine WBC Clumps Urine Bacteria Hyaline Casts Urine Mucus Coronavirus (PCR) 07/05/20 07/05/20 07/05/20 05:23 08:10 14:16 WBC RBC Hgb Hct RDW Plt Count Neutrophils # Neutrophils # (Manual) Lymphocytes # Lymphocytes # (Manual) Metamyelocytes # (Man) Myelocytes # (Manual) APTT 46.9 H Fibrinogen D-Dimer ABG pH ABG pCO2 33 L ABG pO2 75 L ABG HCO3 ABG Total CO2 ABG O2 Saturation Sodium Potassium Chloride Carbon Dioxide BUN Creatinine Glucose POC Glucose (mg/dL) Plasma Lactic Acid Reed 2.5 H* Calcium Phosphorus Magnesium Ferritin Total Bilirubin AST ALT Lactate Dehydrogenase LD Isoenzymes LD 1 LD 2 LD 4 LD 5 Creatine Kinase Troponin I C-Reactive Protein Total Protein Albumin Procalcitonin Urine Protein Urine Ketones Urine Blood Urine WBC Urine WBC Clumps Urine Bacteria Hyaline Casts Urine Mucus Coronavirus (PCR) 07/05/20 07/05/20 07/06/20 14:16 14:16 06:20 WBC 12.3 H RBC Hgb 12.9 L Hct 37.2 L RDW Plt Count Neutrophils # 10.9 H Neutrophils # (Manual) Lymphocytes # Lymphocytes # (Manual) Metamyelocytes # (Man) Myelocytes # (Manual) APTT Fibrinogen D-Dimer ABG pH ABG pCO2 ABG pO2 63 L ABG HCO3 ABG Total CO2 26 H ABG O2 Saturation 91.5 L Sodium Potassium Chloride Carbon Dioxide BUN Creatinine Glucose POC Glucose (mg/dL) Plasma Lactic Acid Reed Calcium Phosphorus Magnesium Ferritin Total Bilirubin AST ALT Lactate Dehydrogenase LD Isoenzymes LD 1 LD 2 LD 4 LD 5 Creatine Kinase Troponin I 0.527 H* C-Reactive Protein Total Protein Albumin Procalcitonin Urine Protein Urine Ketones Urine Blood Urine WBC Urine WBC Clumps Urine Bacteria Hyaline Casts Urine Mucus Coronavirus (PCR) 07/07/20 07/07/20 07/07/20 04:49 04:49 04:49 WBC 18.2 H RBC Hgb Hct RDW Plt Count 110 L D Neutrophils # Neutrophils # (Manual) 17.60 H Lymphocytes # Lymphocytes # (Manual) 0.18 L Metamyelocytes # (Man) Myelocytes # (Manual) APTT Fibrinogen 144 L D-Dimer >34.10 H ABG pH ABG pCO2 ABG pO2 ABG HCO3 ABG Total CO2 ABG O2 Saturation Sodium Potassium 5.9 H Chloride 108 H Carbon Dioxide 19 L BUN 52 H Creatinine 1.55 H Glucose 139 H POC Glucose (mg/dL) Plasma Lactic Acid Reed Calcium 7.5 L Phosphorus 6.5 H Magnesium 2.6 H Ferritin 5795.4 H Total Bilirubin 1.4 H AST 250 H ALT 695 H Lactate Dehydrogenase 2301 H LD Isoenzymes LD 1 LD 2 LD 4 LD 5 Creatine Kinase 444 H Troponin I C-Reactive Protein 147.1 H Total Protein 6.0 L Albumin 3.1 L Procalcitonin Urine Protein Urine Ketones Urine Blood Urine WBC Urine WBC Clumps Urine Bacteria Hyaline Casts Urine Mucus Coronavirus (PCR) 07/07/20 07/07/20 07/07/20 05:59 10:45 11:30 WBC RBC Hgb Hct RDW Plt Count Neutrophils # Neutrophils # (Manual) Lymphocytes # Lymphocytes # (Manual) Metamyelocytes # (Man) Myelocytes # (Manual) APTT Fibrinogen D-Dimer ABG pH 7.22 L ABG pCO2 55 H ABG pO2 135 H ABG HCO3 ABG Total CO2 25 H ABG O2 Saturation 98.3 H Sodium Potassium Chloride Carbon Dioxide BUN Creatinine Glucose POC Glucose (mg/dL) 148 H Plasma Lactic Acid Reed Calcium Phosphorus Magnesium Ferritin Total Bilirubin AST ALT Lactate Dehydrogenase LD Isoenzymes 581 H LD 1 17 L LD 2 29 L LD 4 14 H LD 5 17 H Creatine Kinase Troponin I C-Reactive Protein Total Protein Albumin Procalcitonin Urine Protein Urine Ketones Urine Blood Urine WBC Urine WBC Clumps Urine Bacteria Hyaline Casts Urine Mucus Coronavirus (PCR) 07/08/20 07/08/20 07/08/20 04:45 04:45 05:07 WBC 20.8 H RBC 4.13 L Hgb 12.4 L Hct 35.6 L RDW Plt Count 90 L Neutrophils # 19.0 H Neutrophils # (Manual) Lymphocytes # 0.6 L Lymphocytes # (Manual) Metamyelocytes # (Man) Myelocytes # (Manual) APTT Fibrinogen D-Dimer ABG pH 7.23 L ABG pCO2 49 H ABG pO2 ABG HCO3 ABG Total CO2 ABG O2 Saturation Sodium 136 L Potassium 5.4 H Chloride 108 H Carbon Dioxide 20 L BUN 72 H Creatinine 2.83 H Glucose 144 H POC Glucose (mg/dL) Plasma Lactic Acid Reed Calcium 7.5 L Phosphorus Magnesium Ferritin Total Bilirubin AST ALT Lactate Dehydrogenase LD Isoenzymes LD 1 LD 2 LD 4 LD 5 Creatine Kinase Troponin I C-Reactive Protein Total Protein Albumin Procalcitonin Urine Protein Urine Ketones Urine Blood Urine WBC Urine WBC Clumps Urine Bacteria Hyaline Casts Urine Mucus Coronavirus (PCR) 07/08/20 07/08/20 07/08/20 06:17 11:57 18:03 WBC RBC Hgb Hct RDW Plt Count Neutrophils # Neutrophils # (Manual) Lymphocytes # Lymphocytes # (Manual) Metamyelocytes # (Man) Myelocytes # (Manual) APTT Fibrinogen D-Dimer ABG pH ABG pCO2 ABG pO2 ABG HCO3 ABG Total CO2 ABG O2 Saturation Sodium Potassium Chloride Carbon Dioxide BUN Creatinine Glucose POC Glucose (mg/dL) 151 H 148 H 155 H Plasma Lactic Acid Reed Calcium Phosphorus Magnesium Ferritin Total Bilirubin AST ALT Lactate Dehydrogenase LD Isoenzymes LD 1 LD 2 LD 4 LD 5 Creatine Kinase Troponin I C-Reactive Protein Total Protein Albumin Procalcitonin Urine Protein Urine Ketones Urine Blood Urine WBC Urine WBC Clumps Urine Bacteria Hyaline Casts Urine Mucus Coronavirus (PCR) 07/09/20 07/09/20 07/09/20 00:16 04:47 05:05 WBC RBC Hgb Hct RDW Plt Count Neutrophils # Neutrophils # (Manual) Lymphocytes # Lymphocytes # (Manual) Metamyelocytes # (Man) Myelocytes # (Manual) APTT Fibrinogen D-Dimer ABG pH 7.14 L* ABG pCO2 55 H ABG pO2 74 L ABG HCO3 19 L ABG Total CO2 ABG O2 Saturation 93.1 L Sodium Potassium Chloride Carbon Dioxide BUN Creatinine Glucose POC Glucose (mg/dL) 145 H Plasma Lactic Acid Reed Calcium Phosphorus Magnesium Ferritin Total Bilirubin AST ALT Lactate Dehydrogenase LD Isoenzymes LD 1 LD 2 LD 4 LD 5 Creatine Kinase Troponin I C-Reactive Protein Total Protein Albumin Procalcitonin 0.32 H Urine Protein Urine Ketones Urine Blood Urine WBC Urine WBC Clumps Urine Bacteria Hyaline Casts Urine Mucus Coronavirus (PCR) 07/09/20 07/09/20 07/09/20 05:05 05:05 05:05 WBC 17.0 H RBC 4.07 L Hgb 11.9 L Hct 35.8 L RDW Plt Count 76 L Neutrophils # 15.8 H Neutrophils # (Manual) Lymphocytes # 0.5 L Lymphocytes # (Manual) Metamyelocytes # (Man) Myelocytes # (Manual) APTT Fibrinogen D-Dimer ABG pH ABG pCO2 ABG pO2 ABG HCO3 ABG Total CO2 ABG O2 Saturation Sodium 136 L Potassium 6.4 H* Chloride 108 H Carbon Dioxide 17 L BUN 91 H Creatinine 3.74 H Glucose 129 H POC Glucose (mg/dL) Plasma Lactic Acid Reed Calcium 7.5 L Phosphorus Magnesium Ferritin Total Bilirubin AST ALT Lactate Dehydrogenase 1316 H LD Isoenzymes LD 1 LD 2 LD 4 LD 5 Creatine Kinase Troponin I C-Reactive Protein 30.8 H Total Protein Albumin Procalcitonin Urine Protein Urine Ketones Urine Blood Urine WBC Urine WBC Clumps Urine Bacteria Hyaline Casts Urine Mucus Coronavirus (PCR) 07/09/20 07/09/20 07/09/20 06:08 12:36 14:58 WBC RBC Hgb Hct RDW Plt Count Neutrophils # Neutrophils # (Manual) Lymphocytes # Lymphocytes # (Manual) Metamyelocytes # (Man) Myelocytes # (Manual) APTT 59.6 H Fibrinogen D-Dimer ABG pH ABG pCO2 ABG pO2 ABG HCO3 ABG Total CO2 ABG O2 Saturation Sodium Potassium Chloride Carbon Dioxide BUN Creatinine Glucose POC Glucose (mg/dL) 144 H 151 H Plasma Lactic Acid Reed Calcium Phosphorus Magnesium Ferritin Total Bilirubin AST ALT Lactate Dehydrogenase LD Isoenzymes LD 1 LD 2 LD 4 LD 5 Creatine Kinase Troponin I C-Reactive Protein Total Protein Albumin Procalcitonin Urine Protein Urine Ketones Urine Blood Urine WBC Urine WBC Clumps Urine Bacteria Hyaline Casts Urine Mucus Coronavirus (PCR) 07/09/20 07/09/20 07/10/20 17:39 20:30 00:22 WBC RBC Hgb Hct RDW Plt Count Neutrophils # Neutrophils # (Manual) Lymphocytes # Lymphocytes # (Manual) Metamyelocytes # (Man) Myelocytes # (Manual) APTT Fibrinogen D-Dimer ABG pH ABG pCO2 ABG pO2 ABG HCO3 ABG Total CO2 ABG O2 Saturation Sodium 134 L Potassium 5.8 H Chloride Carbon Dioxide 17 L BUN 101 H* Creatinine 4.03 H Glucose 146 H POC Glucose (mg/dL) 160 H 144 H Plasma Lactic Acid Reed Calcium 7.4 L Phosphorus Magnesium Ferritin Total Bilirubin AST ALT Lactate Dehydrogenase LD Isoenzymes LD 1 LD 2 LD 4 LD 5 Creatine Kinase Troponin I C-Reactive Protein Total Protein Albumin Procalcitonin Urine Protein Urine Ketones Urine Blood Urine WBC Urine WBC Clumps Urine Bacteria Hyaline Casts Urine Mucus Coronavirus (PCR) 07/10/20 07/10/20 07/10/20 05:31 05:40 05:40 WBC 12.8 H RBC 3.07 L Hgb 8.9 L D Hct 26.6 L RDW Plt Count 78 L Neutrophils # 11.8 H Neutrophils # (Manual) Lymphocytes # 0.4 L Lymphocytes # (Manual) Metamyelocytes # (Man) Myelocytes # (Manual) APTT Fibrinogen D-Dimer ABG pH ABG pCO2 ABG pO2 ABG HCO3 ABG Total CO2 ABG O2 Saturation Sodium 134 L Potassium 5.3 H Chloride Carbon Dioxide 19 L BUN 105 H* Creatinine 4.10 H Glucose 115 H POC Glucose (mg/dL) 117 H Plasma Lactic Acid Reed Calcium 7.1 L Phosphorus Magnesium Ferritin 819.4 H Total Bilirubin AST ALT 160 H Lactate Dehydrogenase LD Isoenzymes LD 1 LD 2 LD 4 LD 5 Creatine Kinase 412 H Troponin I C-Reactive Protein 16.4 H Total Protein 5.0 L Albumin 2.6 L Procalcitonin Urine Protein Urine Ketones Urine Blood Urine WBC Urine WBC Clumps Urine Bacteria Hyaline Casts Urine Mucus Coronavirus (PCR) 07/10/20 07/10/20 07/10/20 05:40 06:18 11:39 WBC RBC Hgb Hct RDW Plt Count Neutrophils # Neutrophils # (Manual) Lymphocytes # Lymphocytes # (Manual) Metamyelocytes # (Man) Myelocytes # (Manual) APTT 57.9 H Fibrinogen D-Dimer 23.24 H ABG pH 7.24 L ABG pCO2 46 H ABG pO2 ABG HCO3 20 L ABG Total CO2 ABG O2 Saturation Sodium Potassium Chloride Carbon Dioxide BUN Creatinine Glucose POC Glucose (mg/dL) 103 H Plasma Lactic Acid Reed Calcium Phosphorus Magnesium Ferritin Total Bilirubin AST ALT Lactate Dehydrogenase LD Isoenzymes LD 1 LD 2 LD 4 LD 5 Creatine Kinase Troponin I C-Reactive Protein Total Protein Albumin Procalcitonin Urine Protein Urine Ketones Urine Blood Urine WBC Urine WBC Clumps Urine Bacteria Hyaline Casts Urine Mucus Coronavirus (PCR) 07/10/20 07/10/20 07/10/20 12:00 17:56 23:35 WBC RBC Hgb Hct RDW Plt Count Neutrophils # Neutrophils # (Manual) Lymphocytes # Lymphocytes # (Manual) Metamyelocytes # (Man) Myelocytes # (Manual) APTT Fibrinogen D-Dimer ABG pH ABG pCO2 ABG pO2 ABG HCO3 ABG Total CO2 ABG O2 Saturation Sodium Potassium 5.2 H Chloride Carbon Dioxide BUN Creatinine Glucose POC Glucose (mg/dL) 150 H 114 H Plasma Lactic Acid Reed Calcium Phosphorus Magnesium Ferritin Total Bilirubin AST ALT Lactate Dehydrogenase LD Isoenzymes LD 1 LD 2 LD 4 LD 5 Creatine Kinase Troponin I C-Reactive Protein Total Protein Albumin Procalcitonin Urine Protein Urine Ketones Urine Blood Urine WBC Urine WBC Clumps Urine Bacteria Hyaline Casts Urine Mucus Coronavirus (PCR) 07/11/20 07/11/20 07/11/20 04:25 04:25 04:25 WBC 18.1 H RBC 3.72 L Hgb 10.6 L Hct 32.1 L RDW Plt Count 141 L D Neutrophils # Neutrophils # (Manual) 15.50 H Lymphocytes # Lymphocytes # (Manual) Metamyelocytes # (Man) 0.54 H Myelocytes # (Manual) 0.36 H APTT Fibrinogen D-Dimer 19.69 H ABG pH ABG pCO2 ABG pO2 ABG HCO3 ABG Total CO2 ABG O2 Saturation Sodium 133 L Potassium Chloride Carbon Dioxide 20 L BUN 100 H Creatinine 4.14 H Glucose 110 H POC Glucose (mg/dL) Plasma Lactic Acid Reed Calcium 7.6 L Phosphorus 9.7 H* Magnesium Ferritin 847.2 H Total Bilirubin AST ALT 128 H Lactate Dehydrogenase 1055 H LD Isoenzymes LD 1 LD 2 LD 4 LD 5 Creatine Kinase 570 H Troponin I C-Reactive Protein 13.8 H Total Protein 5.2 L Albumin 2.8 L Procalcitonin Urine Protein Urine Ketones Urine Blood Urine WBC Urine WBC Clumps Urine Bacteria Hyaline Casts Urine Mucus Coronavirus (PCR) 07/11/20 07/11/20 07/11/20 06:40 12:05 18:01 WBC RBC Hgb Hct RDW Plt Count Neutrophils # Neutrophils # (Manual) Lymphocytes # Lymphocytes # (Manual) Metamyelocytes # (Man) Myelocytes # (Manual) APTT Fibrinogen D-Dimer ABG pH 7.33 L ABG pCO2 ABG pO2 81 L ABG HCO3 ABG Total CO2 25 H ABG O2 Saturation Sodium Potassium Chloride Carbon Dioxide BUN Creatinine Glucose POC Glucose (mg/dL) 113 H 125 H Plasma Lactic Acid Reed Calcium Phosphorus Magnesium Ferritin Total Bilirubin AST ALT Lactate Dehydrogenase LD Isoenzymes LD 1 LD 2 LD 4 LD 5 Creatine Kinase Troponin I C-Reactive Protein Total Protein Albumin Procalcitonin Urine Protein Urine Ketones Urine Blood Urine WBC Urine WBC Clumps Urine Bacteria Hyaline Casts Urine Mucus Coronavirus (PCR) 07/12/20 07/12/20 07/12/20 04:00 04:00 04:00 WBC 17.1 H RBC 3.29 L Hgb 9.4 L Hct 28.3 L RDW Plt Count 136 L Neutrophils # Neutrophils # (Manual) 15.70 H Lymphocytes # Lymphocytes # (Manual) 0.86 L Metamyelocytes # (Man) Myelocytes # (Manual) APTT Fibrinogen D-Dimer 15.95 H ABG pH ABG pCO2 ABG pO2 ABG HCO3 ABG Total CO2 ABG O2 Saturation Sodium 132 L Potassium Chloride Carbon Dioxide BUN 97 H Creatinine 3.93 H Glucose POC Glucose (mg/dL) Plasma Lactic Acid Reed Calcium 7.8 L Phosphorus Magnesium Ferritin 914.8 H Total Bilirubin 1.5 H AST 63 H ALT 103 H Lactate Dehydrogenase 1067 H LD Isoenzymes LD 1 LD 2 LD 4 LD 5 Creatine Kinase 393 H Troponin I C-Reactive Protein 24.0 H Total Protein 4.7 L Albumin 2.5 L Procalcitonin Urine Protein Urine Ketones Urine Blood Urine WBC Urine WBC Clumps Urine Bacteria Hyaline Casts Urine Mucus Coronavirus (PCR) 07/12/20 07/12/20 07/12/20 06:02 12:10 12:28 WBC RBC Hgb Hct RDW Plt Count Neutrophils # Neutrophils # (Manual) Lymphocytes # Lymphocytes # (Manual) Metamyelocytes # (Man) Myelocytes # (Manual) APTT Fibrinogen D-Dimer ABG pH ABG pCO2 ABG pO2 69 L ABG HCO3 ABG Total CO2 ABG O2 Saturation 92.3 L Sodium Potassium Chloride Carbon Dioxide BUN Creatinine Glucose POC Glucose (mg/dL) 104 H Plasma Lactic Acid Reed Calcium Phosphorus 4.6 H Magnesium Ferritin Total Bilirubin AST ALT Lactate Dehydrogenase LD Isoenzymes LD 1 LD 2 LD 4 LD 5 Creatine Kinase Troponin I C-Reactive Protein Total Protein Albumin Procalcitonin Urine Protein Urine Ketones Urine Blood Urine WBC Urine WBC Clumps Urine Bacteria Hyaline Casts Urine Mucus Coronavirus (PCR) 07/12/20 07/13/20 07/13/20 17:55 03:50 03:50 WBC RBC Hgb Hct RDW Plt Count Neutrophils # Neutrophils # (Manual) Lymphocytes # Lymphocytes # (Manual) Metamyelocytes # (Man) Myelocytes # (Manual) APTT Fibrinogen D-Dimer ABG pH ABG pCO2 ABG pO2 ABG HCO3 ABG Total CO2 ABG O2 Saturation Sodium 132 L Potassium Chloride Carbon Dioxide BUN 80 H Creatinine 3.57 H Glucose POC Glucose (mg/dL) 120 H Plasma Lactic Acid Reed Calcium 8.3 L Phosphorus 8.0 H Magnesium Ferritin 847.0 H Total Bilirubin 1.9 H AST 71 H ALT 93 H Lactate Dehydrogenase 1021 H LD Isoenzymes LD 1 LD 2 LD 4 LD 5 Creatine Kinase 406 H Troponin I C-Reactive Protein 70.8 H Total Protein 4.6 L Albumin 2.4 L Procalcitonin 0.58 H Urine Protein Urine Ketones Urine Blood Urine WBC Urine WBC Clumps Urine Bacteria Hyaline Casts Urine Mucus Coronavirus (PCR) 07/13/20 07/13/20 07/13/20 03:50 03:50 04:22 WBC 13.7 H RBC 3.06 L Hgb 9.2 L Hct 26.0 L RDW Plt Count 112 L Neutrophils # 12.6 H Neutrophils # (Manual) Lymphocytes # 0.6 L Lymphocytes # (Manual) Metamyelocytes # (Man) Myelocytes # (Manual) APTT Fibrinogen D-Dimer 13.34 H ABG pH ABG pCO2 47 H ABG pO2 63 L ABG HCO3 27 H ABG Total CO2 28 H ABG O2 Saturation 90.3 L Sodium Potassium Chloride Carbon Dioxide BUN Creatinine Glucose POC Glucose (mg/dL) Plasma Lactic Acid Reed Calcium Phosphorus Magnesium Ferritin Total Bilirubin AST ALT Lactate Dehydrogenase LD Isoenzymes LD 1 LD 2 LD 4 LD 5 Creatine Kinase Troponin I C-Reactive Protein Total Protein Albumin Procalcitonin Urine Protein Urine Ketones Urine Blood Urine WBC Urine WBC Clumps Urine Bacteria Hyaline Casts Urine Mucus Coronavirus (PCR) 07/13/20 07/14/20 07/14/20 23:10 03:50 03:50 WBC 12.2 H RBC 3.03 L Hgb 8.7 L Hct 26.6 L RDW Plt Count 121 L Neutrophils # 11.2 H Neutrophils # (Manual) Lymphocytes # 0.5 L Lymphocytes # (Manual) Metamyelocytes # (Man) Myelocytes # (Manual) APTT Fibrinogen D-Dimer 9.42 H ABG pH ABG pCO2 ABG pO2 ABG HCO3 ABG Total CO2 ABG O2 Saturation Sodium Potassium Chloride Carbon Dioxide BUN Creatinine Glucose POC Glucose (mg/dL) 111 H Plasma Lactic Acid Reed Calcium Phosphorus Magnesium Ferritin Total Bilirubin AST ALT Lactate Dehydrogenase LD Isoenzymes LD 1 LD 2 LD 4 LD 5 Creatine Kinase Troponin I C-Reactive Protein Total Protein Albumin Procalcitonin Urine Protein Urine Ketones Urine Blood Urine WBC Urine WBC Clumps Urine Bacteria Hyaline Casts Urine Mucus Coronavirus (PCR) 07/14/20 07/14/20 07/14/20 03:50 03:55 11:07 WBC RBC Hgb Hct RDW Plt Count Neutrophils # Neutrophils # (Manual) Lymphocytes # Lymphocytes # (Manual) Metamyelocytes # (Man) Myelocytes # (Manual) APTT Fibrinogen D-Dimer ABG pH ABG pCO2 ABG pO2 79 L ABG HCO3 ABG Total CO2 26 H ABG O2 Saturation Sodium 132 L Potassium Chloride Carbon Dioxide BUN 96 H Creatinine 3.97 H Glucose POC Glucose (mg/dL) 101 H Plasma Lactic Acid Reed Calcium Phosphorus Magnesium Ferritin 775.1 H Total Bilirubin 1.7 H AST ALT 68 H Lactate Dehydrogenase 1062 H LD Isoenzymes LD 1 LD 2 LD 4 LD 5 Creatine Kinase 231 H Troponin I C-Reactive Protein 87.2 H Total Protein 4.5 L Albumin 2.3 L Procalcitonin Urine Protein Urine Ketones Urine Blood Urine WBC Urine WBC Clumps Urine Bacteria Hyaline Casts Urine Mucus Coronavirus (PCR) 07/15/20 07/15/20 07/15/20 03:45 03:45 03:45 WBC 11.6 H RBC 2.95 L Hgb 8.4 L Hct 26.3 L RDW 15.7 H Plt Count 132 L Neutrophils # 10.6 H Neutrophils # (Manual) Lymphocytes # 0.4 L Lymphocytes # (Manual) Metamyelocytes # (Man) Myelocytes # (Manual) APTT Fibrinogen D-Dimer 9.00 H ABG pH ABG pCO2 ABG pO2 ABG HCO3 ABG Total CO2 ABG O2 Saturation Sodium 130 L Potassium Chloride Carbon Dioxide BUN 84 H Creatinine 3.73 H Glucose POC Glucose (mg/dL) Plasma Lactic Acid Reed Calcium 8.3 L Phosphorus Magnesium Ferritin 811.6 H Total Bilirubin AST ALT 59 H Lactate Dehydrogenase 1061 H LD Isoenzymes LD 1 LD 2 LD 4 LD 5 Creatine Kinase Troponin I C-Reactive Protein 78.3 H Total Protein 4.5 L Albumin 2.3 L Procalcitonin Urine Protein Urine Ketones Urine Blood Urine WBC Urine WBC Clumps Urine Bacteria Hyaline Casts Urine Mucus Coronavirus (PCR) 07/15/20 07/15/20 07/15/20 04:03 11:33 11:35 WBC RBC Hgb Hct RDW Plt Count Neutrophils # Neutrophils # (Manual) Lymphocytes # Lymphocytes # (Manual) Metamyelocytes # (Man) Myelocytes # (Manual) APTT Fibrinogen D-Dimer ABG pH 7.33 L ABG pCO2 46 H ABG pO2 73 L ABG HCO3 ABG Total CO2 26 H ABG O2 Saturation 93.3 L Sodium Potassium Chloride Carbon Dioxide BUN Creatinine Glucose POC Glucose (mg/dL) 45 L 101 H Plasma Lactic Acid Reed Calcium Phosphorus Magnesium Ferritin Total Bilirubin AST ALT Lactate Dehydrogenase LD Isoenzymes LD 1 LD 2 LD 4 LD 5 Creatine Kinase Troponin I C-Reactive Protein Total Protein Albumin Procalcitonin Urine Protein Urine Ketones Urine Blood Urine WBC Urine WBC Clumps Urine Bacteria Hyaline Casts Urine Mucus Coronavirus (PCR) 07/15/20 07/16/20 07/16/20 17:20 03:35 03:35 WBC 11.6 H RBC 3.08 L Hgb 9.5 L Hct 26.9 L RDW Plt Count 134 L Neutrophils # 10.3 H Neutrophils # (Manual) Lymphocytes # 0.6 L Lymphocytes # (Manual) Metamyelocytes # (Man) Myelocytes # (Manual) APTT Fibrinogen 565 H D-Dimer 9.95 H ABG pH ABG pCO2 ABG pO2 ABG HCO3 ABG Total CO2 ABG O2 Saturation Sodium Potassium Chloride Carbon Dioxide BUN Creatinine Glucose POC Glucose (mg/dL) 123 H Plasma Lactic Acid Reed Calcium Phosphorus Magnesium Ferritin Total Bilirubin AST ALT Lactate Dehydrogenase LD Isoenzymes LD 1 LD 2 LD 4 LD 5 Creatine Kinase Troponin I C-Reactive Protein Total Protein Albumin Procalcitonin Urine Protein Urine Ketones Urine Blood Urine WBC Urine WBC Clumps Urine Bacteria Hyaline Casts Urine Mucus Coronavirus (PCR) 07/16/20 07/16/20 07/16/20 03:35 03:39 05:35 WBC RBC Hgb Hct RDW Plt Count Neutrophils # Neutrophils # (Manual) Lymphocytes # Lymphocytes # (Manual) Metamyelocytes # (Man) Myelocytes # (Manual) APTT Fibrinogen D-Dimer ABG pH 7.31 L ABG pCO2 ABG pO2 68 L ABG HCO3 ABG Total CO2 ABG O2 Saturation 91.7 L Sodium 133 L Potassium Chloride Carbon Dioxide 21 L BUN 94 H Creatinine 3.93 H Glucose POC Glucose (mg/dL) 100 H Plasma Lactic Acid Reed Calcium Phosphorus Magnesium Ferritin 729.0 H Total Bilirubin AST ALT 52 H Lactate Dehydrogenase 1103 H LD Isoenzymes LD 1 LD 2 LD 4 LD 5 Creatine Kinase Troponin I C-Reactive Protein 62.7 H Total Protein 4.9 L Albumin 2.5 L Procalcitonin Urine Protein Urine Ketones Urine Blood Urine WBC Urine WBC Clumps Urine Bacteria Hyaline Casts Urine Mucus Coronavirus (PCR) 07/16/20 07/16/20 07/17/20 12:23 17:23 00:47 WBC RBC Hgb Hct RDW Plt Count Neutrophils # Neutrophils # (Manual) Lymphocytes # Lymphocytes # (Manual) Metamyelocytes # (Man) Myelocytes # (Manual) APTT Fibrinogen D-Dimer ABG pH ABG pCO2 ABG pO2 ABG HCO3 ABG Total CO2 ABG O2 Saturation Sodium Potassium Chloride Carbon Dioxide BUN Creatinine Glucose POC Glucose (mg/dL) 113 H 119 H 101 H Plasma Lactic Acid Reed Calcium Phosphorus Magnesium Ferritin Total Bilirubin AST ALT Lactate Dehydrogenase LD Isoenzymes LD 1 LD 2 LD 4 LD 5 Creatine Kinase Troponin I C-Reactive Protein Total Protein Albumin Procalcitonin Urine Protein Urine Ketones Urine Blood Urine WBC Urine WBC Clumps Urine Bacteria Hyaline Casts Urine Mucus Coronavirus (PCR) 07/17/20 07/17/20 07/17/20 04:20 04:20 04:20 WBC 13.0 H RBC 2.71 L Hgb 8.2 L Hct 24.2 L RDW 15.7 H Plt Count 125 L Neutrophils # Neutrophils # (Manual) Lymphocytes # Lymphocytes # (Manual) Metamyelocytes # (Man) Myelocytes # (Manual) APTT Fibrinogen 604 H D-Dimer 6.05 H ABG pH ABG pCO2 ABG pO2 ABG HCO3 ABG Total CO2 ABG O2 Saturation Sodium 132 L Potassium Chloride Carbon Dioxide BUN 76 H Creatinine 3.41 H Glucose POC Glucose (mg/dL) Plasma Lactic Acid Reed Calcium 8.2 L Phosphorus Magnesium Ferritin Total Bilirubin AST ALT Lactate Dehydrogenase 889 H LD Isoenzymes LD 1 LD 2 LD 4 LD 5 Creatine Kinase Troponin I C-Reactive Protein 6.0 H Total Protein 4.4 L Albumin 2.3 L Procalcitonin Urine Protein Urine Ketones Urine Blood Urine WBC Urine WBC Clumps Urine Bacteria Hyaline Casts Urine Mucus Coronavirus (PCR) 07/17/20 07/17/20 07/17/20 04:35 12:09 16:04 WBC RBC Hgb Hct RDW Plt Count Neutrophils # Neutrophils # (Manual) Lymphocytes # Lymphocytes # (Manual) Metamyelocytes # (Man) Myelocytes # (Manual) APTT Fibrinogen D-Dimer ABG pH 7.29 L ABG pCO2 48 H ABG pO2 ABG HCO3 ABG Total CO2 25 H ABG O2 Saturation Sodium Potassium Chloride Carbon Dioxide BUN Creatinine Glucose POC Glucose (mg/dL) 102 H 112 H Plasma Lactic Acid Reed Calcium Phosphorus Magnesium Ferritin Total Bilirubin AST ALT Lactate Dehydrogenase LD Isoenzymes LD 1 LD 2 LD 4 LD 5 Creatine Kinase Troponin I C-Reactive Protein Total Protein Albumin Procalcitonin Urine Protein Urine Ketones Urine Blood Urine WBC Urine WBC Clumps Urine Bacteria Hyaline Casts Urine Mucus Coronavirus (PCR) 07/18/20 07/18/20 07/18/20 04:10 04:10 04:10 WBC RBC 2.75 L Hgb 8.5 L Hct 24.2 L RDW 15.7 H Plt Count 129 L Neutrophils # Neutrophils # (Manual) Lymphocytes # Lymphocytes # (Manual) Metamyelocytes # (Man) Myelocytes # (Manual) APTT Fibrinogen 576 H D-Dimer 5.40 H ABG pH ABG pCO2 ABG pO2 ABG HCO3 ABG Total CO2 ABG O2 Saturation Sodium 130 L Potassium Chloride Carbon Dioxide 20 L BUN 84 H Creatinine 3.74 H Glucose POC Glucose (mg/dL) Plasma Lactic Acid Reed Calcium Phosphorus Magnesium Ferritin Total Bilirubin AST ALT Lactate Dehydrogenase 855 H LD Isoenzymes LD 1 LD 2 LD 4 LD 5 Creatine Kinase Troponin I C-Reactive Protein 5.2 H Total Protein 4.6 L Albumin 2.4 L Procalcitonin Urine Protein Urine Ketones Urine Blood Urine WBC Urine WBC Clumps Urine Bacteria Hyaline Casts Urine Mucus Coronavirus (PCR) 07/18/20 07/18/20 07/18/20 05:55 12:29 12:45 WBC RBC Hgb Hct RDW Plt Count Neutrophils # Neutrophils # (Manual) Lymphocytes # Lymphocytes # (Manual) Metamyelocytes # (Man) Myelocytes # (Manual) APTT Fibrinogen D-Dimer ABG pH 7.26 L ABG pCO2 48 H ABG pO2 71 L ABG HCO3 ABG Total CO2 ABG O2 Saturation 93.0 L Sodium Potassium Chloride Carbon Dioxide BUN Creatinine Glucose POC Glucose (mg/dL) 65 L 116 H Plasma Lactic Acid Reed Calcium Phosphorus Magnesium Ferritin Total Bilirubin AST ALT Lactate Dehydrogenase LD Isoenzymes LD 1 LD 2 LD 4 LD 5 Creatine Kinase Troponin I C-Reactive Protein Total Protein Albumin Procalcitonin Urine Protein Urine Ketones Urine Blood Urine WBC Urine WBC Clumps Urine Bacteria Hyaline Casts Urine Mucus Coronavirus (PCR) 07/19/20 07/19/20 07/19/20 04:34 04:45 04:45 WBC RBC 2.92 L Hgb 8.9 L Hct 25.7 L RDW 16.0 H Plt Count 148 L Neutrophils # Neutrophils # (Manual) Lymphocytes # Lymphocytes # (Manual) Metamyelocytes # (Man) Myelocytes # (Manual) APTT Fibrinogen 642 H D-Dimer 6.68 H ABG pH 7.31 L ABG pCO2 ABG pO2 81 L ABG HCO3 20 L ABG Total CO2 ABG O2 Saturation Sodium Potassium Chloride Carbon Dioxide BUN Creatinine Glucose POC Glucose (mg/dL) Plasma Lactic Acid Reed Calcium Phosphorus Magnesium Ferritin Total Bilirubin AST ALT Lactate Dehydrogenase LD Isoenzymes LD 1 LD 2 LD 4 LD 5 Creatine Kinase Troponin I C-Reactive Protein Total Protein Albumin Procalcitonin Urine Protein Urine Ketones Urine Blood Urine WBC Urine WBC Clumps Urine Bacteria Hyaline Casts Urine Mucus Coronavirus (PCR) 07/19/20 07/19/20 07/20/20 04:45 23:55 04:45 WBC RBC 2.66 L Hgb 8.1 L Hct 23.6 L RDW 16.2 H Plt Count 126 L Neutrophils # Neutrophils # (Manual) Lymphocytes # 0.6 L Lymphocytes # (Manual) Metamyelocytes # (Man) Myelocytes # (Manual) APTT Fibrinogen D-Dimer ABG pH ABG pCO2 ABG pO2 ABG HCO3 ABG Total CO2 ABG O2 Saturation Sodium 135 L Potassium Chloride Carbon Dioxide 18 L BUN 91 H Creatinine 4.51 H Glucose POC Glucose (mg/dL) 104 H Plasma Lactic Acid Reed Calcium Phosphorus Magnesium Ferritin Total Bilirubin AST ALT 54 H Lactate Dehydrogenase 893 H LD Isoenzymes LD 1 LD 2 LD 4 LD 5 Creatine Kinase Troponin I C-Reactive Protein 4.2 H Total Protein 4.8 L Albumin 2.5 L Procalcitonin Urine Protein Urine Ketones Urine Blood Urine WBC Urine WBC Clumps Urine Bacteria Hyaline Casts Urine Mucus Coronavirus (PCR) 07/20/20 07/20/20 07/20/20 04:45 04:45 05:50 WBC RBC Hgb Hct RDW Plt Count Neutrophils # Neutrophils # (Manual) Lymphocytes # Lymphocytes # (Manual) Metamyelocytes # (Man) Myelocytes # (Manual) APTT Fibrinogen 570 H D-Dimer 13.38 H ABG pH 7.32 L ABG pCO2 ABG pO2 ABG HCO3 ABG Total CO2 ABG O2 Saturation Sodium 133 L Potassium Chloride Carbon Dioxide 20 L BUN 82 H Creatinine 4.51 H Glucose POC Glucose (mg/dL) Plasma Lactic Acid Reed Calcium Phosphorus Magnesium Ferritin Total Bilirubin AST ALT 57 H Lactate Dehydrogenase 792 H LD Isoenzymes LD 1 LD 2 LD 4 LD 5 Creatine Kinase 48 L Troponin I C-Reactive Protein 5.6 H Total Protein 4.8 L Albumin 2.5 L Procalcitonin Urine Protein Urine Ketones Urine Blood Urine WBC Urine WBC Clumps Urine Bacteria Hyaline Casts Urine Mucus Coronavirus (PCR) 07/20/20 07/20/20 05:52 11:41 WBC RBC Hgb Hct RDW Plt Count Neutrophils # Neutrophils # (Manual) Lymphocytes # Lymphocytes # (Manual) Metamyelocytes # (Man) Myelocytes # (Manual) APTT Fibrinogen D-Dimer ABG pH ABG pCO2 ABG pO2 ABG HCO3 ABG Total CO2 ABG O2 Saturation Sodium Potassium Chloride Carbon Dioxide BUN Creatinine Glucose POC Glucose (mg/dL) 103 H 101 H Plasma Lactic Acid Reed Calcium Phosphorus Magnesium Ferritin Total Bilirubin AST ALT Lactate Dehydrogenase LD Isoenzymes LD 1 LD 2 LD 4 LD 5 Creatine Kinase Troponin I C-Reactive Protein Total Protein Albumin Procalcitonin Urine Protein Urine Ketones Urine Blood Urine WBC Urine WBC Clumps Urine Bacteria Hyaline Casts Urine Mucus Coronavirus (PCR) Assessment and Plan Assessment: * Toxic metabolic encephalopathy, severe in degree. Reasons multifactorial as mentioned. * Acute kidney injury requiring hemodialysis. * Acute hypoxic respiratory failure from COVID-19 related pneumonia, getting worse (as per chest x-ray today). * Left hand ischemia * Anemia * Hypertension * Morbid obesity * Obstructive sleep apnea * Superficial venous thrombosis Plan: * Patient has severe toxic metabolic encephalopathy due to secondary effect of multiorgan dysfunction including acute renal failure, respiratory failure due to severe bilateral pneumonia, acute COVID-19 infection. 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 * EEG also revealed severe degree of background slowing consistent with encephalopathy. No epileptiform activity seen. * Prognosis is mainly dependent upon underlying medical/metabolic/infectious conditions, which I would defer to critical care/IM.
[2020-07-20 23:59] LABS: Glucose,Whole Blood 92 mg/dL (75-99)
[2020-07-21] MEDS: INSULIN ASPART (NovoLOG) 100 UNIT/ML VIAL SQ SCH ×4 (00:23→18:45)
[2020-07-21 04:25] LABS: Anisocytosis Slight; Basophils % (A) 0 %; Eosinophils # (A) 0.1 k/uL (0-0.7); Eosinophils % (A) 2 %; HCT 21.1 % (39.0-53.0); HGB 7.4 gm/dL (13.0-17.5); Lymphocytes # (A) 0.4 k/uL (1.0-4.8); Lymphocytes % (A) 5 %; MCH 31.1 pg (25.0-35.0); MCHC 35.2 g/dL (31.0-37.0); MCV 88.3 fL (80.0-100.0); Mean Platelet Volume 8.8; Monocytes # (A) 0.2 k/uL (0-1.0); Monocytes % (A) 3 %; Neutrophils # (A) 6.4 k/uL (1.3-7.7); Neutrophils % (A) 90 %; Platelet Count 120 k/uL (150-450); RBC 2.39 m/uL (4.30-5.90); RDW 16.4 % (11.5-15.5); WBC 7.1 k/uL (3.8-10.6)
[2020-07-21 05:00] LABS: Albumin 2.4 g/dL (3.5-5.0); Calcium 8.2 mg/dL (8.4-10.2); Potassium 3.2 mmol/L (3.5-5.1); Total Bilirubin 1.3 mg/dL (0.2-1.3); Total Protein 4.6 g/dL (6.3-8.2)
[2020-07-21 05:38] LABS: ABG Base Excess -0.8 mmol/L; ABG HCO3 24 mmol/L (21-25); ABG Oxygen Saturation 99.2 % (94-97); ABG PCO2 41 mmHg (35-45); ABG PH 7.38 (7.35-7.45); ABG PO2 133 mmHg (83-108); ABG TCO2 26 mmol/L (19-24); Allen Test Performed? Yes
[2020-07-21 05:45] LABS: Glucose,Whole Blood 103 mg/dL (75-99)
[2020-07-21] MEDS: ALBUTEROL HFA INHALER INHALATION SCH ×3 (07:06→19:48)
[2020-07-21] MEDS: NOREPINEPHRINE 8 MG in SODIUM CHLORIDE 0.9% 250 ML IV SCH ×3 (07:08→21:35)
--- NOTE | 2020-07-21 07:09 | XR ---
EXAMINATION TYPE: XR chest 1V portable DATE OF EXAM: 07/21/2020 COMPARISON: 07/20/2020 HISTORY: SOB, Follow Up FINDINGS: Indwelling tubes and catheters are unchanged. Interval improvement suggested in bilateral airspace infiltrates particularly within the right upper lobe. Stable appearance of the cardio-mediastinal structures at this time. Pleural effusion unchanged. IMPRESSION: 1. Interval improvement suggested in bilateral airspace infiltrates particularly within the right up per lobe.Clinical correlation and follow up until resolution is recommended.
[2020-07-21] MEDS: POTASSIUM CHLORIDE 20 MEQ in WATER FOR INJECTION 1 100ML.BAG IVPB SCH ×2 (10:00→11:51)
[2020-07-21] MEDS: PANTOPRAZOLE 40 MG/10 ML VIAL IVP SCH ×2 (10:00→20:40)
[2020-07-21] MEDS: CHLORHEXIDINE GLUCONATE 15 ML CUP MUCOUS MEM SCH ×2 (10:00→20:41)
[2020-07-21] MEDS: DEXAMETHASONE SOD PHOSPHATE 10 MG/ML 1 ML VIAL IV SCH (10:00)
--- NOTE | 2020-07-21 11:28 | PN ---
PROGRESS NOTE Patient is seen for followup for acute kidney injury. He is currently seen on dialysis. The patient was started on dialysis on 07/10. He has had daily treatments for the last 2 days. We had 3 L on 07/20 and today we are probably going to for about 2-2.5 L. The patient has had urine output as well about 75-30 mL an hour. He remains volume overloaded. FiO2 is at 50%. PHYSICAL EXAMINATION: On examination today, patient is on the vent. Blood pressure 102/51, heart rate 113 per minute. He is afebrile. Examination shows edema 2+ bilaterally upper and lower extremities. Abdomen is soft, distended with abdominal wall edema. Discoloration of the fingers noted on the left hand. APPLIANCE TESTER exam cannot be performed. LABS: Labs show sodium 138, potassium 3.2, chloride 104, BUN 75, creatinine 4.0, hemoglobin 7.4 g/dL. ASSESSMENT: 1. Acute kidney injury, acute tubular necrosis, currently nonoliguric, but with severe volume overload, status post consecutive treatments yesterday and today with total UF of about 5.5 L over 2 days. I will continue with the Lasix and we will assess on a daily basis for need for dialysis. 2. Hypokalemia, replace cautiously and with dialysis. 3. Acute hypoxic respiratory failure. 4. COVID pneumonia, currently on the vent. 5. Hyperkalemia initially, currently improved. 6. Severe volume overload. Continue to diurese patient and continue with the dialysis and ultrafiltration. PLAN: Hemodialysis today. Goal UF 2-2.5 L. Possible dialysis again tomorrow. Continue with the Lasix. We will assess on a daily basis regarding need for renal replacement therapy. MMODL / IJN: [id number] /
[2020-07-21 11:45] LABS: Glucose,Whole Blood 102 mg/dL (75-99)
[2020-07-21] MEDS: ARIPiprazole 5 MG TAB PO SCH (11:47)
[2020-07-21] MEDS: SERTRALINE 100 MG TAB PO SCH (11:47)
[2020-07-21] MEDS: LACTATED RINGERS 1,000 ML IV SCH (11:47)
[2020-07-21] MEDS: ZINC SULFATE 220 MG CAP PO SCH (11:47)
[2020-07-21] MEDS: CHOLECALCIFEROL 25 MCG (1000 IU) TABLET PO SCH (11:47)
[2020-07-21] MEDS: SODIUM BICARBONATE TAB 650 MG TAB PO SCH (11:47)
[2020-07-21] MEDS: CALCIUM ACETATE 667 MG TAB PO SCH ×2 (11:47→16:06)
[2020-07-21] MEDS: DARBEPOETIN ALFA 40 MCG/0.4 ML SYRINGE SQ SCH (11:49)
[2020-07-21] MEDS: FUROSEMIDE 10 MG/ML 10 ML VIAL IV SCH ×2 (11:49→20:40)
--- NOTE | 2020-07-21 11:52 | P.PN ---
Subjective Progress Note Date: 07/21/20 Principal diagnosis: Acute hypoxic respiratory failure second to COVId 19 pneumonia The patient is seen today 07/12/2020 in follow-up in the intensive care unit. He remains intubated, sedated on the mechanical ventilator at assist control mode of a rate of 36, tidal volume 450, FiO2 40% and a PEEP of 10. Morning blood gases reveal pO2 of 69, pCO2 41, pH 7.35. He remains sedated on propofol at 60 mcg/kg/m, fentanyl at 1 mcg/kg/h, norepinephrine at 0.09 mcg/kg//min, the patient is currently on 0.9 saline at rate of 50 mL an hour. The patient has been off Nimbex since yesterday. He is continued on Argatroban at 0.5 mcg/kg/m. Being nourished with Nepro at 15 ML's per hour. He did receive hemodialysis yesterday with 1 L removed. Chest x-ray reveals mild bibasilar infiltrates. Sputum cultures positive for beta-hemolytic strep, group C. White count 18.1. Hemoglobin 10.6. Platelet count 141. D-dimer 19.69. Sodium 133. Potassium 4.7. Creatinine 4.14. LDH 1067, C-reactive protein 24. Remains on antibiotics in the form of ceftriaxone. Bronchodilators. Vitamin supplements. Dexamethasone. 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 The platelet count is stable and the platelet count is up to 136. On 07/12/2020, the patient is being seen for follow-up. The patient is a 59-year-old obese male patient with a BMI of 36.2 with known history of obstructive sleep apnea, presented with COVID 19 related pneumonia patient is currently intubated on a mechanical ventilator. The patient has been on a mechanical ventilator since 07/05/2020. 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 During the course of his treatment, the patient developed an acute kidney injury secondary to ATN secondary to "with 19 infection. Urine output was improving and the patient's urine output was in order of 20-25 mL an hour. Due to persistent hyperkalemia and worsening renal function, the patient was started on hemodialysis on 07/10/2020. The potassium level improved post-hemodialysis. The patient also had significant metabolic acidosis and the patient was given bicarb infusion. Electrolytes are being monitored. The patient got dialyzed yesterday and this was his second hemodialysis. Nephrology is on the case. He is currently on Decadron 6 mg IV every 24 hours. His chest x-ray is showing patchy by the pulmonary infiltrates in lower lobes, slightly worsening in the chest x-ray findings on today's evaluation mainly in the peripheries and ET tube is in a good location. The patient remains on a mechanical ventilator assist control mode. He is on Nepro at 60 mL an hour. 07/13/2020, I'm seeing this patient for a follow-up. This is a case of a 59-year-old male patient with Covid 19 related pneumonia and acute kidney injury currently on hemodialysis. Worn-out, the patient is sedated and this morning the patient is currently on propofol running at 6 60 mcg/kg per minute and fentanyl is running at 1 mcg/kg/h and this is the same sedation it was being provided yesterday. The patient is on no paralytics for now. The patient is on a mechanical ventilator, on this morning's evaluation, he is on assist-control at the rate of 28 with a tidal volume of 450 and FiO2 of 50% and PEEP is 10. Blood gases from today showing a pH of 7.37 with a pCO2 of 47 and pO2 of 63. Chest x-ray from today is showing diffuse bilateral pulmonary infiltrates more so in the lower lobes bilaterally. ET tube is in a good location. Comparing this chest x-ray from yesterday, there is no major interval change in the findings are essentially stable. His peak airway pressures 28. His static pressures 24. The patient is is still on Decadron 6 mg IV every 24 hours. D- dimer today's at 13.3, his LDH level is at 1021 and the CRP is at 4.6. Note that his inflammatory markers essentially compatible to yesterday. His echoes at 13.7 with a hemoglobin of 9.2. Platelet count is 112. I took the patient off Agratoban and he was also placed on Eliquis at a dose of 5 mg by mouth twice a day. Noted the patient also is an acute kidney injury. The patient underwent dialysis and the spot he has taken 3 sessions of hemodialysis. He is producing urine output in the order of 20-30 mL an hour. His last session of hemodialysis was yesterday. In terms of his electrolytes, his BUN is at 80 with a creatinine of 3.5 and a sodium of 132 with a potassium of 4.4. He is currently on enteral feeding for dizziness support and is currently on Nepro at the rate of 50 mL an hour. He is currently off Rocephin. He is afebrile. He is requiring low-dose pressors were norepinephrine 30 dose of 0.03 mcg/kg per minute. Otherwise, no other significant events. He is afebrile. Sedation holiday was not done yesterday. IV fluids are running at 0.9 at the rate of 50 mL an hour. 07/14/2020, patient is being seen for follow-up. Sedated and still on a mechanical ventilator, probable resolving. 60 mcg/kg per minute and the patient is also on fentanyl at 1 mcg/kg/h. Adequately sedated. On a mechanical ventilator essentially vent settings being at tidal volume of 450 with an FiO2 of 50% and a PEEP of 10 and a rate of 28. These are essentially the same settings as yesterday. As far as blood gases, pO2 is at 79 with a pCO2 of 45 and a pH is at 7.35. He d-dimer is at 9.42 and the rest of the inflammatory markers show an LDH of 1062 which is stable compared to yesterday and a CRP of 87, slightly elevated compared to yesterday. His CPK is down to 231. His pro calcitonin level was at 0.58 and note that the patient has dialysis-dependent renal failure. As far as his creatinine, his creatinine today is at 3.97 with a mean of 96. He did not receive dialysis yesterday. His urine output is in order of 30-40 mL an hour and the fluid balance has been +1.1 L over the past 24 hours. His chest x-ray from today is showing lower lobe pulmonary infiltrates, essentially stable compared to yesterday. ET tube remains in excellent location. IV fluids are running at 20 cc an hour of normal saline. He is afebrile. He is tolerating his enteral feeding for nutritional support. Norepinephrine infusion which is running at 0.05 mcg/kg per minute. He remains on Decadron 6 mg IV every 24 , platelet count is stable at 121 and 11 avoiding heparin. Patient holiday yesterday was ultimately aborted as the patient became quite agitated after several hours without any meaningful neurological response. 07/15/2020, the patient is being seen for a follow-up. Sedated with propofol running at 60 mcg/kg per minute and fentanyl is at 1 mcg/kg/h and the level of sedation essentially the same as yesterday. Remains on a mechanical ventilator. He is an assist-control mode at the rate of 24 with a tidal volume of 450 and a PEEP of 8 with a FiO2 of 50%. He had a blood gas showing pH of 7.33 with a pCO2 of 46 and pO2 of 73. Chest x-ray is unchanged, probably slightly worse on the left in terms of that the patient is seeing on today's chest x-ray. ET tube remains in a good location. Inflammatory markers from today show a d-dimer of 9 with a LDH level of 1061 and a CRP of 78, comparable to yesterday. His pro calcitonin level was low. He got dialyzed yesterday. I attempted to wean down the PEEP to 6 and this was not successful and the patient desaturated in the P EEP was brought back up to 8 yesterday. Meanwhile, he is afebrile. He is producing urine output in the order of 20-30 mL an hour. He is on normal saline at the rate of 20 mL an hour. He remains on Decadron 6 mg IV to 24 hours. His platelet count is 132 which is essentially stable and improved compared to yesterday. In terms of pressors, the patient is currently on norepinephrine infusion at 0.04 mcg/kg per minute. I will today's condition essentially unchanged and his condition essentially the same as compared to yesterday 07/16/2020, remains on a mechanical ventilator on propofol at the rate of 60 mcg/kg per minute and fentanyl is at 2 mcg/kg/h. He remains off paralytics. At around 6:00 this morning, the patient had some oxygen desaturation. Based on that, I increased his FiO2 up to 60%. Currently is an assist-control mode rate of 28 with a tidal volume of 450 and a PEEP of 8 chest x-ray still showing diffuse bilateral pulmonary infiltrates left more than right. The blood gas shows a pH of 7.31 with a pCO2 of 45 and pO2 of 68. This was on FiO2 of 70%. Inflammatory markers show a d-dimer of 9.9 with a LDH level of 1103 and a CRP level of 62. The patient is on Decadron 6 mg IV every 24 hours. The patient is also on anticoagulation with Eliquis 2.5 mg by mouth twice a day. His platelet counts is 135. The chest x-ray findings are obviously worse and there is some worsening in the evaluation in the right lung compared to yesterday. Note that the patient did not get dialyzed yesterday. Today is a dialysis day for him. He is also on norepinephrine infusion running at 0.08 mcg/kg per minute. There is enough to maintain his blood pressure. He is receiving enteral feeding for discharge support and currently is on Nepro at a rate of 50 mL an hour which is currently at goal. No other significant events. Is adequately sedated for now. 07/17/2020, the patient is being seen for a follow-up. This morning he is on a combination of propofol and fentanyl running at 60 mics for propofol and 1 g for fentanyl. He was given a sedation holiday and she was able to tolerate initiated subsequently he decompensated and became hypoxic and he had to be placed back on sedation. Noted the patient became asynchronous. This morning, he is back on a mechanical ventilator mode at the rate of 28 with a tidal volume of 450 and her FiO2 is at 60% with a PEEP of 8. He underwent dialysis yesterday with a total of 2 liters of ultrafiltration. Note that he was able to tolerated dialysis without any major issues. He is on a minimal dose of norepinephrine infusion running at 0.06 mcg/kg per minute for blood pressure control. On today's evaluation, peak air pressures around 27. The blood gases from today shows a pH of 7.29 with a pCO2 of 40 and pO2 of 99 and this was on FiO2 of 60%. As mentioned, his PEEP is at 8. Chest x-ray still showing diffuse breath and pulmonary infiltrates unchanged without any major interval improvement or worsening. White cell count is at 50 with a hemoglobin of 8.2. Creatinine is at 3.4 and a urine output is in order of 30 mL an hour. No plans for hemodialysis today. He is receiving enteral feeding for nutritional support with Nepro at the rate of 50 mL an hour. He is stooling. Still sedation dependent. Unable to wean him off sedation because of a 6 and mean oxygen desaturations. I have approach the and the family with a possibility of ainsertion of a tracheostomy tube and a PEG tube for prolonged need of mechanical ventilation and failure for weaning. The patient has been intubated since 07/05/2020. The inflammatory markers from today shows an LDH level of 889, CRP is at 6 and the d-dimer is at 6.05. The patient has palpable pulses in his left upper extremity. She of his fingers are necrotic and the tip including the index, the platelet counts are stable and the patient is currently on Eliq uis 2.5 mg by mouth twice a day. Or 2020, the patient remains sedated with a combination of propofol and fentanyl running at 50 mcg/kg per minute for propofol and 1 mcg/kg per hour for fentanyl. He is sedated. In fact is deeply sedated. We are going to proceed with a sedation holiday on this patient today. He remains on a mechanical ventilator. He remains on a assist-control rate of 28, tidal volume of 450, FiO2 of 50% with a PEEP of 8. Attempts to wean the PEEP further failed and the patient became more hypoxic. As such, the patient is living At 8. This patient is a 7.26 with a pCO2 of 48 and pO2 of 71 today's blood gas. His chest x-ray showing stable bilateral pulmonary infiltrates essentially involving the lower lobes. ET tube is in a good location. Note that the patient is producing urine output in the order of 8200 mL an hour. His net fluid balance over the past 24 hours has been -83 mL. He has had a with a positive fluid balance for today. The findings on the case. The intent of the dialysis 3 times a week. His last dialysis was done on Sunday which is 2 days ago. His creatinine is up to 3.7 with a BUN of 84. Rest of the electrolytes are normal. Affect is running a lower sodium level of 1:30 with a potassium level of 4.1. Serum bicarbs at 20. In terms of his COVID-19 related pneumonia, the patient has a LDH level of 855, CRP level of 5.2 and his most recent d-dimer is at 5.4. He remains on steroids and he is on Decadron 6 mg IV every 24 hours. He did have a component of hit syndrome. This was related to heparin. He did receive Agratroban was ultimately discontinued once the patient's stated count picked up and it's platelet count is currently at 129. He does have necrotic fingers in his left upper extremity. Adequate pulses in the radial. No new vascular insults noted on today's examination. He is receiving enteral feeding for nutritional support and is currently on Nepro at the rate of 10 mL an hour. He is stooling. He is on Rocephin for strep in history of the blood cultures on 2 separate occasions. Otherwise, the blood cultures positive for coagulase-negative staph. Patient was reevaluated today on 07/19/2020, remains intubated and mechanically ventilated, he is off sedation and he is not showing any signs of neurological not responding to any stimuli. Patient is on assist control rate of 24th of volume 450 FiO2 50% and PEEP of 6. ABG showed a pO2 of 81 pCO2 41 pH of 7.31 patient is on enteral feeding. And he may undergo dialysis. We plan to have a tracheostomy and PEG tube placement in this patient, and he is basically a failure to wean. Today the sedation is placed on hold. Chest x-ray continues to show bilateral pulmonary infiltrates involving lower lobes. Endotracheal tube is in the proper position. Patient is making good urine, however his renal functioning seems to be getting worse. Electrolytes are normal. BUN is 91 creatinine 4.51 LDH is 893 liver enzymes are borderline elevated, C-reactive protein is 4.2 d-dimer 6.68. WBC count is 9.1 hemoglobin is 8.9 On 07/20/2020 patient seen in follow-up in intensive care unit, he was given daily traction of sedation yesterday, and his sedation was on hold for several hours and the patient never woke up over open his eyes or follow any commands, and as the day went on he started breathing fast, started desaturated and get agitated and was he was placed back on sedation on which she remains today, currently on Diprivan at 40 mics per kilo per minute, and fentanyl infusion at 1 mics per kilo per minute, and levo fed has been discontinued, he is on assist- control mode of ventilation with assist control rate of 24, tidal volumes of 4 50, FiO2 of 50% and PEEP of 6, this morning's blood gas shows pO2 of 92, pCO2 42, and pH is 7.32. He is in sinus mechanism, slightly tachycardic, his tube feedings are currently on hold in case of possibility of tracheostomy and PEG tube insertion however were still awaiting a response from his family on the decision in regards to proceeding with trach and PEG placement, today he is receiving hemodialysis treatment, and a 3 L in fluid was removed today. In terms of urine output he has been making urine in the order of 50-70 ML per hour, he remains on Lasix 80 mg twice daily, he remains on Rocephin for evidence of a beta-hemolytic strep in the sputum cultures, his follow-up sputum culture only showed Armida. History of resting comfortably in bed, he remains on IV dexamethasone 6 mg daily, has been off the levofed. Breasts labs have been reviewed, his white blood cell count is 8.1, hemoglobin is 8.1, his platelet count is 126, d-dimer is 13.3, sodium is 133, potassium 3.7, his renal function is relatively stable, with BUN of 82, and creatinine 4.51. These LDH is 792, CRP is 48. His had no acute events overnight, we spoke to his daughter yesterday in regards to patient's condition, and to discuss tracheostomy and PEG tube insertion, awaiting response from the family on their decision and the daughter indicated that patient had poor quality of life to start with and the were not sure if the workup and consent to the trach and PEG On 07/21/2000 patient seen in follow-up in the intensive care unit, yesterday he tolerated 11 hours of sedation holiday, and he was starting to follow simple commands, however is that day went on he was becoming more agitated and tachypneic, and he was placed back on sedation, currently on Diprivan at 40 mics per kilo per minute, and 0.9 at KVO, he remains intubated, on assist control mode of ventilation, with a rate of 24, Tylox 450, FiO2 of 50% and PEEP of 6, this morning's blood gases show pO2 133, pCO2 of 41, and pH is 7.38. Patient is resting comfortably, appears to be in no acute distress, he is not on any vasoactive drugs, no vasopressors, she is in sinus rhythm sinus tach with a rate of 90-106 BPM, hemodialysis treatment this morning, and attended have liters of fluid was taken off, his vital signs have been stable overnight, no fever or chills, lung sounds are diminished. She also remains on IV Lasix 80 mg twice da waylon, patient is producing urine in the order of 30-60 ML per hour, and she is in -4.1 L over the last 24 hours with additional -2.49 fluid balance since midnight last night. Chest x-ray shows interval improvement in bilateral airspace infiltrates particularly within the right upper lobe. Today's labs have been reviewed, showing white blood cell count 7.1, hemoglobin of 7.4, platelet count is 120, sodium is 130, potassium is 3.2, chloride is 104, CO2 of 23, BUN of 75 and creatinine of 4.01. Patient remains on Rocephin for beta-hemolytic strep in the sputum, repeat culture of the sputum showed only Armida. He is tolerating tube feedings which are on hold for tracheostomy and PEG tube placement which is scheduled for today. Objective - Vital Signs Vital signs: Vital Signs Temp 98.0 F 07/21/20 10:52 Pulse 107 H 07/21/20 11:00 Resp 27 H 07/21/20 11:00 BP 116/69 07/21/20 11:00 Pulse Ox 99 07/21/20 11:00 Intake & Output 07/20/20 07/21/20 07/21/20 18:59 06:59 18:59 Intake Total 326.070 292.205 227.912 Output Total 3600 1175 2685 Balance -3273.930 -882.795 -2457.088 Weight 128.2 kg Intake: IV 66 39 169 0.9 Normal Saline 66 39 9 Pressure Bag 0.9 Normal Saline at KVO 10 Potassium Chloride 20 meq 100 In Water For Injection 1 100ml.bag @ 50 mls/hr IVPB Q2H [facility] Rx#: [id number] cefTRIAXone 1 gm In 50 Sodium Chloride 0.9% 50 ml @ 100 mls/hr IVPB Q24HR [facility]UL Rx#:[id number] Intake, IV Titration 260.070 253.205 58.912 Amount Norepinephrine 8 mg In 4.257 Sodium Chloride 0.9% 250 ml @ 0.05 MCG/KG/MIN 11. 01 mls/hr IV .[id number] [facility] Rx#:[id number] fentaNYL (PF). 1,000 mcg 94.229 In Sodium Chloride 0.9% 80 ml @ Per Protocol IV . Q0M [facility] Rx#:[id number] propofoL 1,000 mg In 161.584 253.205 58.912 Empty Bag 1 bag @ Titrate IV .Q0M [facility] Rx#: [id number] Tube Feeding 0 Output: Urine 600 1175 185 Hemodialysis 3000 2500 Other: Voiding Method Indwelling Catheter Indwelling Catheter ABP, PAP, CO, CI - Last Documented Arterial Blood Pressure 96/48 - Exam GENERAL EXAM: Sedated, intubated, morbidly obese 51-year-old white male, on ass ist-control mode of ventilation with a 50% PEEP of 6, comfortable in no apparent distress. HEAD: Normocephalic/atraumatic. EYES: Normal reaction of pupils, equal size. Conjunctiva pink, sclera white. NOSE: Clear with pink turbinates. THROAT: No erythema or exudates. NECK: No masses, no JVD, no thyroid enlargement, no adenopathy. CHEST: No chest wall deformity. Symmetrical expansion. LUNGS: Equal air entry with no crackles, wheeze, rhonchi or dullness. CVS: Regular rate and rhythm, normal S1 and S2, no gallops, no murmurs, no rubs ABDOMEN: Soft, nontender. No hepatosplenomegaly, normal bowel sounds, no guarding or rigidity. EXTREMITIES: No clubbing, generalized edema no cyanosis, 2+ pulses and upper and lower extremities. MUSCULOSKELETAL: Muscle strength and tone normal. Right groin temporary hemodialysis catheter in place SPINE: No scoliosis or deformity SKIN: No rashes CENTRAL NERVOUS SYSTEM: Sedated, intubated. No focal deficits, tone is normal in all 4 extremities. - Labs CBC & Chem 7: 07/21/20 04:00 07/21/20 04:00 Labs: Abnormal Lab Results - Last 24 Hours (Table) 07/20/20 07/20/20 07/20/20 Range/Units 04:45 11:41 18:00 RBC (4.30-5.90) m/uL Hgb (13.0-17.5) gm/dL Hct (39.0-53.0) % RDW (11.5-15.5) % Plt Count (150-450) k/uL Lymphocytes # (1.0-4.8) k/uL ABG pO2 (83-108) mmHg ABG Total CO2 (19-24) mmol/L ABG O2 Saturation (94-97) % Potassium (3.5-5.1) mmol/L BUN (9-20) mg/dL Creatinine (0.66-1.25) mg/dL POC Glucose (mg/dL) 101 H 108 H (75-99) mg/dL Calcium (8.4-10.2) mg/dL Ferritin 1037.3 H (22.0-322.0) ng/mL ALT (4-49) U/L Total Protein (6.3-8.2) g/dL Albumin (3.5-5.0) g/dL 07/21/20 07/21/20 07/21/20 Range/Units 04:00 04:00 05:33 RBC 2.39 L (4.30-5.90) m/uL Hgb 7.4 L (13.0-17.5) gm/dL Hct 21.1 L (39.0-53.0) % RDW 16.4 H (11.5-15.5) % Plt Count 120 L (150-450) k/uL Lymphocytes # 0.4 L (1.0-4.8) k/uL ABG pO2 133 H (83-108) mmHg ABG Total CO2 26 H (19-24) mmol/L ABG O2 Saturation 99.2 H (94-97) % Potassium 3.2 L (3.5-5.1) mmol/L BUN 75 H (9-20) mg/dL Creatinine 4.01 H (0.66-1.25) mg/dL POC Glucose (mg/dL) (75-99) mg/dL Calcium 8.2 L (8.4-10.2) mg/dL Ferritin (22.0-322.0) ng/mL ALT 54 H (4-49) U/L Total Protein 4.6 L (6.3-8.2) g/dL Albumin 2.4 L (3.5-5.0) g/dL 07/21/20 Range/Units 05:43 RBC (4.30-5.90) m/uL Hgb (13.0-17.5) gm/dL Hct (39.0-53.0) % RDW (11.5-15.5) % Plt Count (150-450) k/uL Lymphocytes # (1.0-4.8) k/uL ABG pO2 (83-108) mmHg ABG Total CO2 (19-24) mmol/L ABG O2 Saturation (94-97) % Potassium (3.5-5.1) mmol/L BUN (9-20) mg/dL Creatinine (0.66-1.25) mg/dL POC Glucose (mg/dL) 103 H (75-99) mg/dL Calcium (8.4-10.2) mg/dL Ferritin (22.0-322.0) ng/mL ALT (4-49) U/L Total Protein (6.3-8.2) g/dL Albumin (3.5-5.0) g/dL Microbiology - Last 24 Hours (Table) 07/18/20 01:40 Gram Stain - Final Sputum Sputum Culture - Final Armida albicans Assessment and Plan Plan: Assessment: #1. Acute hypoxic respiratory failure secondary to COVID-19 pneumonia. Patient received toci and convalescent plasma. #2. Acute kidney injury requiring dialysis. #3. Severe metabolic acidosis, improved and resolved after dialysis. #4. Hyperkalemia secondary to above, improved with hemodialysis #5. Benign essential hypertension. #6. Superficial vein thromboses and left cephalic vein and left basilic vein #7. 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 History of obstructive sleep apnea syndrome #9. Morbid obesity #10. Increased d-dimer related to COVID-19, patient was started on Eliquis which will be restarted after his surgical procedures Plan: Continue propofol for sedation Hemodynamically stable, not requiring any vasoactive drips Continue same vent settings Labs blood gases and chest x-ray reviewed Hemodialysis today Continue Lasix Continue antibiotics, same dose Decadron Eliquis on hold for tracheostomy tube placement We'll likely restart Eliquis tomorrow night if okay with surgery Supportive care Give another daily interrutpion of sedation tomorrow I performed a history & physical examination of the patient and discussed their management with my nurse practitioner, Nelia Conley. I reviewed the nurse practitioner's note and agree with the documented findings and plan of care. Lung sounds are positive for diminished breath sounds The findings and the impression was discussed with the patient. I attest to the documentation by the nurse practitioner. Time with Patient: Greater than 30
--- NOTE | 2020-07-21 14:56 | CDI ---
Documentation Clarification Form Date: 07/21/2020 02:44:47 PM From: Joslyn Padron CCS, CCDS Admit Date: 07/05/2020 04:36:00 AM Patient Name: Aureliano Malcolm Visit Number: [id number] Discharge Date: ATTENTION: The Clinical Documentation Specialists (CDI) and [facility] Coding Staff appreciate your assistance in clarifying documentation. Please respond to the clarification below the line at the bottom and electronically sign. The CDI & [facility] Coding staff will review the response and follow-up if needed. Please note: Queries are made part of the Legal Health Record. If you have any questions, please contact the author of this message via ITS. Dr. Jose Mcdowell: Protein Calorie Malnutrition is documented in the 07/19 & 07/20 General Surgeon's Progress Notes without further specificity. Additional clarification regarding the severity of malnutrition is requested. History/Risk Factors per the 07/04 H/P History of Present Illness: Hypertension, DJD, Sleep Apnea, Osteoarthritis, Legally blind, Former Smoker, Anxiety, Bipolar, Depression, Schizophrenia. Clinical Indicators: Presented to the ED 07/04 with SOB, Weakness and worsening cough, tested positive for COVID 8 days ago. ED Clinical Impression: Pneumonia due to COVID 19 virus, Elevated Troponin. Patient is scheduled for a Trach & PEG on 07/21 due to being vent dependent & unable to wean, considered for LTAC. 07/21 Nursing Assessment & Dietitian Consult: Current BMI: 38.3 Weight 128.2 (bedscale), Ht 6ft, Obese Intubated, NPO. IBW: 80.739 kg, % IBW: 160%. . Treatment as of 07/21: On OG tube feeds, IV Kcl, IV Dextrose, IV Levophed, IV Propofol, IV Lasix, Aransep sq, INH Ventolin, IV Protonix, IV Decadron, IV Rocephin Please clarify the type of malnutrition, if known: [ ] Mild Protein-Calorie Malnutrition [ ] Moderate Protein-Calorie Malnutrition [ ] Severe Protein-Calorie Malnutrition [ ] Other condition, please specify [ ] Unable to Determine (Template Last Revised: May 2020) Not my documentation. *CDS/ma: Query response documented in 07/22 PN by Sherlyn Fontenot NP/Dr. Mcdowell: Severe PCM status post PEG placement MTDD
[2020-07-21] MEDS ORDERED: fentaNYL (PF) 50 MCG/ML 2 ML AMP ONE (17:03)
[2020-07-21] MEDS ORDERED: ROCURONIUM 10 MG/ML (5 ML VIAL) IV ONE (17:03)
--- NOTE | 2020-07-21 18:26 | P.OP ---
Date of Procedure: 07/21/20 Preoperative Diagnosis: Respiratory failure Malnutrition Postoperative Diagnosis: Respiratory failure Malnutrition Procedure(s) Performed: Tracheostomy PEG tube placement Anesthesia: NENITA Surgeon: Jose Carlos Mcdowell Estimated Blood Loss (ml): 5 Pathology: none sent Condition: stable Disposition: ICU Description of Procedure: The patient's placed on the operative table in the supine position. He received general anesthesia. His neck was prepped and draped in sterile fashion. A standard Omer incision was made. And then using ultrasound and subcu tissues were divided. The strap muscles were divided in the midline. The Phelps traction placed a wound. The thyroid gland was visualized. The trachea was then visualized. The HAND PACKAGER placed the endotracheal tube into the right mainstem bronchus. The tracheotomy performed and second tracheal rings. The endotracheal tube was brought back under direct vision the #7 Prolene adjustable cough tracheotomy tube was placed into the trachea. The balloon was inflated. End tidal CO2 was confirmed. The patient developed. The retraction withdrawn. The skin was closed interrupted 3-0 nylon suture. Next the gastroscope oropharynx is esophagus and stomach. The stomach was insufflated air. Suitable light reflux was seen. The stay sutures were then placed under direct visualization into the stomach. 4 stay sutures were placed. Next a skin incision was made 11 blade. The needles placed and stomach under direct visualization. And then the wire was placed into the stomach. The dilator sheath placed over top the wire. And then the REN tube was placed through the dilator sheath into the stomach. The dilator sheath was removed. And then the wound was inspected for the RNE tube with 5 mL of saline. The bolster was positioned appropriately position. Patient top she will was sent to ICU in stable condition. Additional CC's:
[2020-07-21] MEDS ORDERED: HEPARIN SODIUM 1,000 UN/ML (10ML VL) IV ONE (18:50)
[2020-07-21] MEDS ORDERED: HEPARIN SODIUM 1,000 UN/ML (10ML VL) IRRIGATION ONE (18:50)
--- NOTE | 2020-07-21 19:03 | P.OP ---
Date of Procedure: 07/21/20 Description of Procedure: DATE OF PROCEDURE: 07/21/2020 PREOPERATIVE DIAGNOSIS: [COVID pneumonia, renal failure, AV DRF]. PROCEDURE: 1. Ultrasound-guided right internal jugular access 2. Placement of tunneled venous central catheter for dialysis with fluoroscopic utilization and interpretation PROCEDURE: This patient was brought to operating room. The right side of the neck and chest was prepped and draped in sterile manner. 1% lidocaine was infiltrated in the neck and chest area. After that, was utilized and the right internal jugular vein was accessed with return of dark venous nonpulsatile blood. The wire was passed easily without resistance. The catheter was then tracked through the proposed tunnel via an vision in the anterior chest wall. The subcuticular tissues were dilated over the wire and under direct fluoroscopic visualization. The tear-away sheath was placed. The catheter was then placed through the tear-away sheath and tear-away sheath was removed. There was good smooth curve of the catheter in good position at the cavoatrial junction. It aspirated and flushed well. The catheter was then secured in place with nylon and the skin incision was reapproximated with interrupted sutures of 3-0 Vicryl. A dressing was placed. The patient was transferred back to ICU in stable condition having tolerated the procedure well.
--- NOTE | 2020-07-21 22:26 | XR ---
EXAMINATION TYPE: XR chest 1V portable DATE OF EXAM: 07/21/2020 COMPARISON: Today HISTORY: Respiratory failure TECHNIQUE: Single view FINDINGS: There is a new tracheostomy tube. There is patchy bilateral pulmonary edema. There is right -sided central venous catheter with tip in the right atrium. There is no pneumothorax. There is sligh t blunting of the costophrenic angles. There are chest leads. IMPRESSION: Patchy pulmonary edema and basilar atelectasis not significantly different than exam this morning. This is consistent with RDS. Heart failure not excluded.
--- NOTE | 2020-07-21 23:30 | P.PN ---
Subjective Progress Note Date: 07/20/20 Principal diagnosis: Acute hypoxic respiratory failure secondary to Covid pneumonia requiring mechanical ventilation Acute kidney injury requiring hemodialysis This is a pleasant 53 years old male with past medical history of hypertension, osteoarthritis, sleep apnea. Presents with respiratory distress secondary to covid pneumonia and secondary bacterial infection is suspected as well with positive sputum culture for streptococcus, group C. Patient is currently monitored in the ICU because of his respiratory failure, currently on mechanical ventilation and need a small dose of Levophed at 4 g today. Also patient has elevated troponin and he was started on heparin drip however he developed coffee-ground emesis via anicteric tube, heparin drip was stopped and hemoglobin is stable and normal at 12.4 today. Winding Inspector found to his elevated troponin is secondary to his Covid infection and hypotension, Lovenox is on hold although patient has elevated d-dimer due to coffee ground vomiting. Distal sedation, his blood pressure is marginal 104/60 this morning. Pulmonary team performed closely and help with vent management, his PEEP was increased today from 15-18. His oxygen saturation is guarded at 100% with FiO2 of 70%. Patient has marginal urine output at 20 mL/h and continue with normal saline at 80 mL per hour 07/09/2020 Patient remains in critical condition in the ICU, he is sedated and on mechanical ventilation with pulmonary/critical care team followed closely and management. He still needs high PEEP at 18. Today he had suspected left hand coldness and vascular surgery consult, no intervention indicated given his critical guarded condition. He had coffee-ground emesis yesterday and no such episodes, his aspirin was held as well as his Lovenox and switch his anticoagulation into argatroban drip . 4 dropping platelets 90,to 76K today. It NT chase is pending. His creatinine is worsening with nephrology on the case and patient was started on bicarbonate drip, his normal saline at 80 mL per hour was stopped He remains on ceftriaxone 2 g daily for sputum culture positive with streptococcus group C. Also he is on zinc, vitamin D, dexamethasone, Protonix twice daily and Carafate 07/10/2020 Patient remains in the ICU intubated and sedated with pulmonary/critical care team managing his friend, currently he is on PEEP 18 dropped to 15 today by pulmonary team. Despite his history of coffee ground vomitus he was started on argatroban drip for suspected left hand ischemia . Also he is on mild septic shock secondary to bacterial superimposed infection with streptococcus group C found in the blood and sputum cultures on the top of his bilateral Covid pneumonia. He has increased troponin leak secondary to Covid and creatinine is still elevated at 4.1 and followed closely by nephrology team Patient is tachypneic at 36 and blood pressure 121/51 Labs showing trending down WBC to 12.8 K, hemoglobin dropped to 8.9 and Carafate was stopped by coronary team. Platelets are stable 70 6K yesterday and 70 8K today. C-reactive protein is down to 16. Chest x-ray showing bilateral infiltrates. D-dimer was elevated at 34 and throatcalcitonin of 0.23 He remains on ceftriaxone 2 g per ID team, on zinc, vitamin D. Bicarbonate drip,argatroban drip, Protonix twice a day. While aspirating is kept on hold 07/11/2020 Patient in the ICU intubated and sedated. Followed by several consultants Left hand is improving however it is still dusky/bluish color. Tube feeding is in home due to coffee ground emesis. Vent management per pulmonary team, currently PEEP is lowered from 15 down to 10, hit antibodies are positive. Labs showing WBC 18 K, hemoglobin 10.0, platelets 141, creatinine is stable since yesterday at 4.1, LDH is a 1055, C-reactive protein is 13 only. On 07/10 patient was started on hemodialysis for worsening kidney function and creatinine and potassium with low urine output he is still sedated with Nimbex. Tube feeding was on hold due to his history of coffee ground vomitus recently. After the patient remains on argatroban and levophed drip Platelets 141, hemoglobin down to 10.0 K, WBC down to 18 LDH is 1055 and C-reactive protein is within the reference range at 13. Patient is afebrile. In the emergency room he was started on ceftriaxone for Covid and possible superinfection. Also sodium bicarb Was stopped and switched to tablets, normal saline is ordered by primary team, continue with argatroban drip . Also patient is an Protonix and dexamethasone and vitamins. Aspirin was disc ontinued as well as Lovenox. 07/13/2020 Patient was admitted hospital due to acute hypoxic respiratory failure and is currently on mechanical ventilator. Patient also developed acute kidney injury requiring hemodialysis. Patient is sedated. Assist-control 450, FiO2 50% and PEEP of 10. Patient is requiring low-dose norepinephrine drip. Afebrile. Chest x-ray showed relatively similar mid and lower lung consolidation left greater than right. Laboratory data showed WBC 13.7 hemoglobin 9.2 platelets 112 lymphocytes 0.6 D-dimer 13.34 Sodium 132 potassium 4.4 chloride 100 BUN 18 creatinine 3.57 calcium 8.3 phosphorus 8.0 ferritin 847 bilirubin 1.9 AST 71, ALT 93 LDH 1021 CK 406 CRP 70.8 and procalcitonin 0.58. Pulmonary and nephrology is on board. 07/14/2020 Patient is currently in MICU on mechanical ventilator and sedated. Assist- control 450 FiO2 50% and PEEP of 10 and respiratory 28. Chest x-ray showed stable bilateral lung infiltrates greater on the left. Laboratory data showed WBC 12.2 hemoglobin 8.7 platelets 121 lymphocytes 0.5 D- dimer is 9.42 BUN 96 and creatinine 3.97 calcium 8.4 ferritin 775 total bilirubin 1.7, AST 57 ALT 68 alk phos 87 LDH 1062 CPK 231 CRP 87.2 Patient is still low-dose norepinephrine drip. Continued on enteral feeding. Patient is scheduled for hemodialysis today. Patient is being continued dexamethasone, Eliquis and multivitamins. Pulmonary nephrology is following. 07/15/2020 Patient is currently in the MICU on mechanical ventilator. AC 450, FiO2 50% and PEEP of 8. Chest x-ray showed worsening bilateral lung infiltrates. Patient has been afebrile and requiring norepinephrine low-dose pressor support. Laboratory data showed WBC 11.6 hemoglobin 8.4 RDW 15.7 platelets 132 D-dimer is 9.0 sodium 130 potassium 4.4 bicarb is 22 BUN 84 and creatinine 3.73 ferritin 81 1.6 LDH 1061 CRP 78.3. Patient is being continued on dexamethasone and Eliquis and multivitamins. Continued on enteral tube feeding. Condition unchanged from yesterday. 07/16/2020 Patient is currently on mechanical ventilator and sedated. This is controlled for 50 respiration 28 and PEEP of 8. FiO2 70%. Chest x-ray showed unchanged appearance of patchy opacities involving the left lung and right base. Stable lines and tubes. Overnight patient was hypotensive and started back on Levophed drip. Patient is being dialyzed today. Currently on tube feeding. Laboratory data showed WBC 11.6 hemoglobin 9.5 platelets 134 neutrophils 10.3 and lymphocytes 0.6 D-dimer level is 9.95 Sodium 133 potassium 4.1 BUN 91 creatinine 3.93 ferritin 729 AST 49 ALT 52 alk phos 108 lactic acid 1103 CRP 62.7 07/17/2020 Patient is currently in the MICU. Patient was given sedation holiday yesterday was subsequently he decompensated and hypoxic and was placed back on sedation. On assist-control 450 with FiO2 60% and PEEP of 8. Patient able to tolerate hemodialysis with 2 L ultrafiltration yesterday. Currently on low-dose norepinephrine drip. Chest x-ray showed diffuse pulmonary infiltrates unchanged without any major interval changes. Laboratory data showed WBC 13.0, hemoglobin 8.2, d-dimer 6.05 Sodium 132 potassium 4.2 BUN 76 and creatinine 3.41, LDH 889 and CRP 4.4 Pulmonary and nephrology is on board. 07/18/2020 Patient is MICU currently sedated and paralyzed and on mechanical ventilator. Assist-control 450 FiO2 50% and PEEP of 8. Chest x-ray showed bilateral mul tifocal and confluent opacities consistent with COVID-19 infection. No significant interval change from one day earlier. Laboratory data showed WBC 10.5, hemoglobin 8.5 platelets 129 d-dimer 5.4, fib ular nose and 576, sodium 1:30 potassium 4.1 BUN 84 and a creatinine 3.74 blood sugar is controlled, LDH 855 and CRP 5.2 by Pulmonary nephrology is following. Patient has been afebrile. Tolerating tube feeding. Continued on and abuts the form of ceftriaxone, dexamethasone 6 mg IV daily and added IV Lasix 80 mg every 12 as blood pressure tolerates. Blood cultures grew coagulase-negative staph aureus. 07/19/2020 Patient is currently on mechanical ventilator. Patient failed weaning trials. Gen. surgery was consulted for possible tracheostomy and PEG tube placement On assist-control 450 FiO2 50% and PEEP of 6. Chest x-ray showed bilateral pulmonary infiltrates involving lower lobes without much change. Laboratory data showed WBC 9.1 hemoglobin 8.9 which is 148 d-dimer 6.68 sodium 135 potassium 3.9. 91 and creatinine 4.51 Sputum cultures grew beta hemolytic Streptococcus and Armida albicans. Repeat blood culture have been negative. Patient is being continued on ceftriaxone. 07/20/2020 Patient is currently in the MICU, remains intubated. Patient tolerated sedation holiday for 11 hours and was following simple commands. Patient became tachypneic and agitated and was started back on Diprivan. Chest x-ray showed interval improvement in bilateral airspace infiltrates particularly in the right upper lobe. Tolerating tube feeding. Patient is scheduled for tracheostomy and PEG tube placement. Otherwise patient is being continued on IV Lasix. Continue antibiotics been on ceftriaxone, dexamethasone. Laboratory showed WBC 8.1 hemoglobin 8.1 platelets 126 D-dimer 13.38 Eliquis on hold due to pending surgery. Sodium 133 potassium 3.7 BUN 82 and creatinine 4.5 ferritin 1037, LDH 792 Pulmonary, neurology and general surgery is on board. Current medications reviewed. Objective - Vital Signs Vital signs: Vital Signs Temp 98.1 F 07/20/20 16:00 Pulse 123 H 07/20/20 19:00 Resp 28 H 07/20/20 19:00 BP 176/85 07/20/20 19:00 Pulse Ox 96 07/20/20 19:00 Intake & Output 07/20/20 07/20/20 07/21/20 06:59 18:59 06:59 Intake Total 435.422 326.070 12 Output Total 570 3600 190 Balance -134.578 -3273.930 -178 Weight 128.3 kg Intake: IV 78 66 12 Pressure Bag 78 66 12 Intake, IV Titration 227.422 260.070 0 Amount Norepinephrine 8 mg In 127.422 4.257 Sodium Chloride 0.9% 250 ml @ 0.05 MCG/KG/MIN 11. 01 mls/hr IV .[id number] PRAFUL Rx#:[id number] fentaNYL (PF). 1,000 mcg 94.229 In Sodium Chloride 0.9% 80 ml @ Per Protocol IV . Q0M PRAFUL Rx#:[id number] propofoL 1,000 mg In 100 161.584 0 Empty Bag 1 bag @ Titrate IV .Q0M PRAFUL Rx#: [id number] Tube Feeding 70 Other 60 Output: Urine 570 600 190 Hemodialysis 3000 Other: Voiding Method Indwelling Catheter Indwelling Catheter ABP, PAP, CO, CI - Last Documented Arterial Blood Pressure 148/69 - Exam - Exam -GENERAL: The patient is intubated and sedated, well nourished. HEENT: Pupils are round and equally reacting to light. No scleral icterus. No conjunctival pallor. Normocephalic, atraumatic. No pharyngeal erythema. No t hyromegaly. CARDIOVASCULAR: S1 and S2 present. No murmurs, rubs, or gallops. PULMONARY: Chest is clear to auscultation, no wheezing or crackles. ABDOMEN: Soft, nontender, nondistended, normoactive bowel sounds. No palpable organomegaly. MUSCULOSKELETAL: No joint swelling or deformity. EXTREMITIES: No cyanosis, clubbing, or pedal edema. NEUROLOGICAL: Gross neurological examination did not reveal any focal deficits. SKIN: No rashes. no petechiae. - Labs CBC & Chem 7: 07/21/20 04:00 07/21/20 04:00 Labs: Abnormal Lab Results - Last 24 Hours (Table) 07/19/20 07/20/20 07/20/20 Range/Units 23:55 04:45 04:45 RBC 2.66 L (4.30-5.90) m/uL Hgb 8.1 L (13.0-17.5) gm/dL Hct 23.6 L (39.0-53.0) % RDW 16.2 H (11.5-15.5) % Plt Count 126 L (150-450) k/uL Lymphocytes # 0.6 L (1.0-4.8) k/uL Fibrinogen 570 H (200-500) mg/dL D-Dimer 13.38 H (<0.60) mg/L FEU ABG pH (7.35-7.45) Sodium (137-145) mmol/L Carbon Dioxide (22-30) mmol/L BUN (9-20) mg/dL Creatinine (0.66-1.25) mg/dL POC Glucose (mg/dL) 104 H (75-99) mg/dL Ferritin (22.0-322.0) ng/mL ALT (4-49) U/L Lactate Dehydrogenase (313-618) U/L Creatine Kinase (55-170) U/L C-Reactive Protein (<1.0) mg/dL Total Protein (6.3-8.2) g/dL Albumin (3.5-5.0) g/dL 07/20/20 07/20/2021 Range/Units 04:45 05:50 05:52 RBC (4.30-5.90) m/uL Hgb (13.0-17.5) gm/dL Hct (39.0-53.0) % RDW (11.5-15.5) % Plt Count (150-450) k/uL Lymphocytes # (1.0-4.8) k/uL Fibrinogen (200-500) mg/dL D-Dimer (<0.60) mg/L FEU ABG pH 7.32 L (7.35-7.45) Sodium 133 L (137-145) mmol/L Carbon Dioxide 20 L (22-30) mmol/L BUN 82 H (9-20) mg/dL Creatinine 4.51 H (0.66-1.25) mg/dL POC Glucose (mg/dL) 103 H (75-99) mg/dL Ferritin 1037.3 H (22.0-322.0) ng/mL ALT 57 H (4-49) U/L Lactate Dehydrogenase 792 H (313-618) U/L Creatine Kinase 48 L (55-170) U/L C-Reactive Protein 5.6 H (<1.0) mg/dL Total Protein 4.8 L (6.3-8.2) g/dL Albumin 2.5 L (3.5-5.0) g/dL 07/20/20 07/20/20 Range/Units 11:41 18:00 RBC (4.30-5.90) m/uL Hgb (13.0-17.5) gm/dL Hct (39.0-53.0) % RDW (11.5-15.5) % Plt Count (150-450) k/uL Lymphocytes # (1.0-4.8) k/uL Fibrinogen (200-500) mg/dL D-Dimer (<0.60) mg/L FEU ABG pH (7.35-7.45) Sodium (137-145) mmol/L Carbon Dioxide (22-30) mmol/L BUN (9-20) mg/dL Creatinine (0.66-1.25) mg/dL POC Glucose (mg/dL) 101 H 108 H (75-99) mg/dL Ferritin (22.0-322.0) ng/mL ALT (4-49) U/L Lactate Dehydrogenase (313-618) U/L Creatine Kinase (55-170) U/L C-Reactive Protein (<1.0) mg/dL Total Protein (6.3-8.2) g/dL Albumin (3.5-5.0) g/dL Microbiology - Last 24 Hours (Table) 07/18/20 01:40 Gram Stain - Final Sputum Sputum Culture - Final Armida albicans Assessment and Plan Assessment: Acute Covid pneumonia Acute hypoxic respiratory failure needing mechanical ventilation Acute kidney injury Due to ATN. Currently requiring HD Severe metabolic acidosis and hyperkalemia improved with hemodialysis Coagulase-negative staph aureus bacteremia Beta-hemolytic streptococcal for wound cultures. On ceftriaxone. Hypotension/septic shock requiring low-dose norepinephrine. Left upper extremity negative for DVT. Superficial thrombus in the left cephalic vein and left base leg pain Heparin-induced thrombocytopenia. Changed to argatroban and currently on Eliquis. Suspected ischemia of the left hand on anticoagulation and draped Coffee ground vomiting with suspected acute GI bleed Thrombocytopenia Elevated troponin, secondary to renal function impairment, viral infection and hypotension Plan: This is a pleasant 59 years old male who presents with Covid pneumonia, possible bacterial pneumonia/. Continue with mechanical ventilation for pulmonary/critical care team will follow the patient closely. Continue with multiple vitamin zinc and vitamin D, Eliquis. Continue with bicarbonate Keep monitoring hemoglobin and platelets Infectious disease, GI and cardiology, nephrology team on the case Patient is scheduled for tracheostomy and PEG tube placement today. Labs and medication were reviewed. Continue with symptomatic treatment. Resume home medication. Monitor lytes and vitals. DVT and GI prophylaxis. Further recommendations as per clinical course of the patient DVT prophylaxis:Eliquis 2.5mg BID GI Prophylaxis: Ppi, Protonix twice a day Prognosis is guarded Time with Patient: Greater than 30
--- NOTE | 2020-07-21 23:33 | P.PN ---
Subjective Progress Note Date: 07/21/20 Principal diagnosis: Acute hypoxic respiratory failure secondary to Covid pneumonia requiring mechanical ventilation Acute kidney injury requiring hemodialysis This is a pleasant 53 years old male with past medical history of hypertension, osteoarthritis, sleep apnea. Presents with respiratory distress secondary to covid pneumonia and secondary bacterial infection is suspected as well with positive sputum culture for streptococcus, group C. Patient is currently monitored in the ICU because of his respiratory failure, currently on mechanical ventilation and need a small dose of Levophed at 4 g today. Also patient has elevated troponin and he was started on heparin drip however he developed coffee-ground emesis via anicteric tube, heparin drip was stopped and hemoglobin is stable and normal at 12.4 today. [employer] found to his elevated troponin is secondary to his Covid infection and hypotension, Lovenox is on hold although patient has elevated d-dimer due to coffee ground vomiting. Distal sedation, his blood pressure is marginal 104/60 this morning. Pulmonary team performed closely and help with vent management, his PEEP was increased today from 15-18. His oxygen saturation is guarded at 100% with FiO2 of 70%. Patient has marginal urine output at 20 mL/h and continue with normal saline at 80 mL per hour 07/09/2020 Patient remains in critical condition in the ICU, he is sedated and on mechanical ventilation with pulmonary/critical care team followed closely and management. He still needs high PEEP at 18. Today he had suspected left hand coldness and vascular surgery consult, no intervention indicated given his critical guarded condition. He had coffee-ground emesis yesterday and no such episodes, his aspirin was held as well as his Lovenox and switch his anticoagulation into argatroban drip . 4 dropping platelets 90,to 76K today. It NT chase is pending. His creatinine is worsening with nephrology on the case and patient was started on bicarbonate drip, his normal saline at 80 mL per hour was stopped He remains on ceftriaxone 2 g daily for sputum culture positive with streptococcus group C. Also he is on zinc, vitamin D, dexamethasone, Protonix twice daily and Carafate 07/10/2020 Patient remains in the ICU intubated and sedated with pulmonary/critical care team managing his friend, currently he is on PEEP 18 dropped to 15 today by pulmonary team. Despite his history of coffee ground vomitus he was started on argatroban drip for suspected left hand ischemia . Also he is on mild septic shock secondary to bacterial superimposed infection with streptococcus group C found in the blood and sputum cultures on the top of his bilateral Covid pneumonia. He has increased troponin leak secondary to Covid and creatinine is still elevated at 4.1 and followed closely by nephrology team Patient is tachypneic at 36 and blood pressure 121/51 Labs showing trending down WBC to 12.8 K, hemoglobin dropped to 8.9 and Carafate was stopped by coronary team. Platelets are stable 70 6K yesterday and 70 8K today. C-reactive protein is down to 16. Chest x-ray showing bilateral infiltrates. D-dimer was elevated at 34 and throatcalcitonin of 0.23 He remains on ceftriaxone 2 g per ID team, on zinc, vitamin D. Bicarbonate drip,argatroban drip, Protonix twice a day. While aspirating is kept on hold 07/11/2020 Patient in the ICU intubated and sedated. Followed by several consultants Left hand is improving however it is still dusky/bluish color. Tube feeding is in home due to coffee ground emesis. Vent management per pulmonary team, currently PEEP is lowered from 15 down to 10, hit antibodies are positive. Labs showing WBC 18 K, hemoglobin 10.0, platelets 141, creatinine is stable since yesterday at 4.1, LDH is a 1055, C-reactive protein is 13 only. On 07/10 patient was started on hemodialysis for worsening kidney function and creatinine and potassium with low urine output he is still sedated with Nimbex. Tube feeding was on hold due to his history of coffee ground vomitus recently. After the patient remains on argatroban and levophed drip Platelets 141, hemoglobin down to 10.0 K, WBC down to 18 LDH is 1055 and C-reactive protein is within the reference range at 13. Patient is afebrile. In the emergency room he was started on ceftriaxone for Covid and possible superinfection. Also sodium bicarb Was stopped and switched to tablets, normal saline is ordered by primary team, continue with argatroban drip . Also patient is an Protonix and dexamethasone and vitamins. Aspirin was disc ontinued as well as Lovenox. 07/13/2020 Patient was admitted hospital due to acute hypoxic respiratory failure and is currently on mechanical ventilator. Patient also developed acute kidney injury requiring hemodialysis. Patient is sedated. Assist-control 450, FiO2 50% and PEEP of 10. Patient is requiring low-dose norepinephrine drip. Afebrile. Chest x-ray showed relatively similar mid and lower lung consolidation left greater than right. Laboratory data showed WBC 13.7 hemoglobin 9.2 platelets 112 lymphocytes 0.6 D-dimer 13.34 Sodium 132 potassium 4.4 chloride 100 BUN 18 creatinine 3.57 calcium 8.3 phosphorus 8.0 ferritin 847 bilirubin 1.9 AST 71, ALT 93 LDH 1021 CK 406 CRP 70.8 and procalcitonin 0.58. Pulmonary and nephrology is on board. 07/14/2020 Patient is currently in MICU on mechanical ventilator and sedated. Assist- control 450 FiO2 50% and PEEP of 10 and respiratory 28. Chest x-ray showed stable bilateral lung infiltrates greater on the left. Laboratory data showed WBC 12.2 hemoglobin 8.7 platelets 121 lymphocytes 0.5 D- dimer is 9.42 BUN 96 and creatinine 3.97 calcium 8.4 ferritin 775 total bilirubin 1.7, AST 57 ALT 68 alk phos 87 LDH 1062 CPK 231 CRP 87.2 Patient is still low-dose norepinephrine drip. Continued on enteral feeding. Patient is scheduled for hemodialysis today. Patient is being continued dexamethasone, Eliquis and multivitamins. Pulmonary nephrology is following. 07/15/2020 Patient is currently in the MICU on mechanical ventilator. AC 450, FiO2 50% and PEEP of 8. Chest x-ray showed worsening bilateral lung infiltrates. Patient has been afebrile and requiring norepinephrine low-dose pressor support. Laboratory data showed WBC 11.6 hemoglobin 8.4 RDW 15.7 platelets 132 D-dimer is 9.0 sodium 130 potassium 4.4 bicarb is 22 BUN 84 and creatinine 3.73 ferritin 81 1.6 LDH 1061 CRP 78.3. Patient is being continued on dexamethasone and Eliquis and multivitamins. Continued on enteral tube feeding. Condition unchanged from yesterday. 07/16/2020 Patient is currently on mechanical ventilator and sedated. This is controlled for 50 respiration 28 and PEEP of 8. FiO2 70%. Chest x-ray showed unchanged appearance of patchy opacities involving the left lung and right base. Stable lines and tubes. Overnight patient was hypotensive and started back on Levophed drip. Patient is being dialyzed today. Currently on tube feeding. Laboratory data showed WBC 11.6 hemoglobin 9.5 platelets 134 neutrophils 10.3 and lymphocytes 0.6 D-dimer level is 9.95 Sodium 133 potassium 4.1 BUN 91 creatinine 3.93 ferritin 729 AST 49 ALT 52 alk phos 108 lactic acid 1103 CRP 62.7 07/17/2020 Patient is currently in the MICU. Patient was given sedation holiday yesterday was subsequently he decompensated and hypoxic and was placed back on sedation. On assist-control 450 with FiO2 60% and PEEP of 8. Patient able to tolerate hemodialysis with 2 L ultrafiltration yesterday. Currently on low-dose norepinephrine drip. Chest x-ray showed diffuse pulmonary infiltrates unchanged without any major interval changes. Laboratory data showed WBC 13.0, hemoglobin 8.2, d-dimer 6.05 Sodium 132 potassium 4.2 BUN 76 and creatinine 3.41, LDH 889 and CRP 4.4 Pulmonary and nephrology is on board. 07/18/2020 Patient is MICU currently sedated and paralyzed and on mechanical ventilator. Assist-control 450 FiO2 50% and PEEP of 8. Chest x-ray showed bilateral mul tifocal and confluent opacities consistent with COVID-19 infection. No significant interval change from one day earlier. Laboratory data showed WBC 10.5, hemoglobin 8.5 platelets 129 d-dimer 5.4, fib ular nose and 576, sodium 1:30 potassium 4.1 BUN 84 and a creatinine 3.74 blood sugar is controlled, LDH 855 and CRP 5.2 by Pulmonary nephrology is following. Patient has been afebrile. Tolerating tube feeding. Continued on and abuts the form of ceftriaxone, dexamethasone 6 mg IV daily and added IV Lasix 80 mg every 12 as blood pressure tolerates. Blood cultures grew coagulase-negative staph aureus. 07/19/2020 Patient is currently on mechanical ventilator. Patient failed weaning trials. Gen. surgery was consulted for possible tracheostomy and PEG tube placement On assist-control 450 FiO2 50% and PEEP of 6. Chest x-ray showed bilateral pulmonary infiltrates involving lower lobes without much change. Laboratory data showed WBC 9.1 hemoglobin 8.9 which is 148 d-dimer 6.68 sodium 135 potassium 3.9. 91 and creatinine 4.51 Sputum cultures grew beta hemolytic Streptococcus and Armida albicans. Repeat blood culture have been negative. Patient is being continued on ceftriaxone. 07/20/2020 Patient is currently in the MICU, remains intubated. Patient tolerated sedation holiday for 11 hours and was following simple commands. Patient became tachypneic and agitated and was started back on Diprivan. Chest x-ray showed interval improvement in bilateral airspace infiltrates particularly in the right upper lobe. Tolerating tube feeding. Patient is scheduled for tracheostomy and PEG tube placement. Otherwise patient is being continued on IV Lasix. Continue antibiotics been on ceftriaxone, dexamethasone. Laboratory showed WBC 8.1 hemoglobin 8.1 platelets 126 D-dimer 13.38 Eliquis on hold due to pending surgery. Sodium 133 potassium 3.7 BUN 82 and creatinine 4.5 ferritin 1037, LDH 792 Pulmonary, neurology and general surgery is on board. 07/21/2020 Patient is currently remained medically ventilated. Sedated. Chest x-ray showed interval improvement suggested in the bilateral airspace infiltrates particularly in the right upper lobe. Patient is scheduled for tracheostomy and PEG tube placement today. Laboratory data showed WBC 7.1 hemoglobin 7.4 and platelets 120 Sodium 138 potassium 3.2 BUN 75 creatinine 4.01 Patient is being continued on antibiotics at home ceftriaxone. Continued on deferoxamine and Lasix. Eliquis is on hold due to schedule surgery. Current medications reviewed. Objective - Vital Signs Vital signs: Vital Signs Temp 97.6 F 07/21/20 20:00 Pulse 87 07/21/20 21:00 Resp 24 07/21/20 21:00 BP 116/69 07/21/20 17:00 Pulse Ox 97 07/21/20 21:00 Intake & Output 07/21/20 07/21/20 07/22/20 06:59 18:59 06:59 Intake Total 292.205 685.985 116.433 Output Total 1175 2995 150 Balance -882.795 -2309.015 -33.567 Weight 128.2 kg Intake: IV 39 334 39 0.9 Normal Saline 39 24 9 Pressure Bag 0.9 Normal Saline at KVO 60 30 Potassium Chloride 20 meq 200 In Water For Injection 1 100ml.bag @ 50 mls/hr IVPB Q2H [facility] Rx#: [id number] [id number] 1 gm In 50 Sodium Chloride 0.9% 50 ml @ 100 mls/hr IVPB Q24HR [facility] Rx#:[id number] Intake, IV Titration 253.205 351.985 77.433 Amount propofoL 1,000 mg In 253.205 351.985 77.433 Empty Bag 1 bag @ Titrate IV .Q0M [facility] Rx#: [id number] Tube Feeding 0 0 Output: Urine 1175 475 150 Hemodialysis 2500 Estimated Blood Loss 20 Other: Voiding Method Indwelling Catheter Indwelling Catheter Indwelling Catheter ABP, PAP, CO, CI - Last Documented Arterial Blood Pressure 114/59 - Exam - Exam -GENERAL: The patient is intubated and sedated, well nourished. HEENT: Pupils are round and equally reacting to light. No scleral icterus. No conjunctival pallor. Normocephalic, atraumatic. No pharyngeal erythema. No thyromegaly. CARDIOVASCULAR: S1 and S2 present. No murmurs, rubs, or gallops. PULMONARY: Chest is clear to auscultation, no wheezing or crackles. ABDOMEN: Soft, nontender, nondistended, normoactive bowel sounds. No palpable organomegaly. MUSCULOSKELETAL: No joint swelling or deformity. EXTREMITIES: No cyanosis, clubbing, or pedal edema. NEUROLOGICAL: Gross neurological examination did not reveal any focal deficits. SKIN: No rashes. no petechiae. - Labs CBC & Chem 7: 07/21/20 04:00 07/21/20 04:00 Labs: Abnormal Lab Results - Last 24 Hours (Table) 07/21/20 07/21/20 07/21/20 Range/Units 04:00 04:00 05:33 RBC 2.39 L (4.30-5.90) m/uL Hgb 7.4 L (13.0-17.5) gm/dL Hct 21.1 L (39.0-53.0) % RDW 16.4 H (11.5-15.5) % Plt Count 120 L (150-450) k/uL Lymphocytes # 0.4 L (1.0-4.8) k/uL ABG pO2 133 H (83-108) mmHg ABG Total CO2 26 H (19-24) mmol/L ABG O2 Saturation 99.2 H (94-97) % Potassium 3.2 L (3.5-5.1) mmol/L BUN 75 H (9-20) mg/dL Creatinine 4.01 H (0.66-1.25) mg/dL POC Glucose (mg/dL) (75-99) mg/dL Calcium 8.2 L (8.4-10.2) mg/dL ALT 54 H (4-49) U/L Total Protein 4.6 L (6.3-8.2) g/dL Albumin 2.4 L (3.5-5.0) g/dL 07/21/20 07/21/20 Range/Units 05:43 11:33 RBC (4.30-5.90) m/uL Hgb (13.0-17.5) gm/dL Hct (39.0-53.0) % RDW (11.5-15.5) % Plt Count (150-450) k/uL Lymphocytes # (1.0-4.8) k/uL ABG pO2 (83-108) mmHg ABG Total CO2 (19-24) mmol/L ABG O2 Saturation (94-97) % Potassium (3.5-5.1) mmol/L BUN (9-20) mg/dL Creatinine (0.66-1.25) mg/dL POC Glucose (mg/dL) 103 H 102 H (75-99) mg/dL Calcium (8.4-10.2) mg/dL ALT (4-49) U/L Total Protein (6.3-8.2) g/dL Albumin (3.5-5.0) g/dL Assessment and Plan Assessment: Acute Covid pneumonia Acute hypoxic respiratory failure needing mechanical ventilation Acute kidney injury Due to ATN. Currently requiring HD Severe metabolic acidosis and hyperkalemia improved with hemodialysis Coagulase-negative staph aureus bacteremia Beta-hemolytic streptococcal for wound cultures. On ceftriaxone. Hypotension/septic shock requiring low-dose norepinephrine. Left upper extremity negative for DVT. Superficial thrombus in the left cephalic vein and left base leg pain Heparin-induced thrombocytopenia. Changed to argatroban and currently on Eliquis. Suspected ischemia of the left hand on anticoagulation and draped Coffee ground vomiting with suspected acute GI bleed Thrombocytopenia Elevated troponin, secondary to renal function impairment, viral infection and hypotension Plan: This is a pleasant 59 years old male who presents with Covid pneumonia, possible bacterial pneumonia/. Continue with mechanical ventilation for pulmonary/critical care team will follow the patient closely. Continue with multiple vitamin zinc and vitamin D, Eliquis. Continue with bicarbonate Keep monitoring hemoglobin and platelets Infectious disease, GI and cardiology, nephrology team on the case Patient is scheduled for tracheostomy and PEG tube placement today. Labs and medication were reviewed. Continue with symptomatic treatment. Resume home medication. Monitor lytes and vitals. DVT and GI prophylaxis. Further recommendations as per clinical course of the patient DVT prophylaxis:Eliquis 2.5mg BID GI Prophylaxis: Ppi, Protonix twice a day Prognosis is guarded Time with Patient: Greater than 30
[2020-07-21 23:37] LABS: Glucose,Whole Blood 104 mg/dL (75-99)
[2020-07-22] MEDS: INSULIN ASPART (NovoLOG) 100 UNIT/ML VIAL SQ SCH ×5 (00:02→23:59)
[2020-07-22] MEDS: CALCIUM ACETATE 667 MG TAB PO SCH ×3 (00:02→16:34)
[2020-07-22] MEDS: ARIPiprazole 5 MG TAB PO SCH ×3 (00:33→21:03)
[2020-07-22 04:43] LABS: ABG Base Excess -2.8 mmol/L; ABG HCO3 23 mmol/L (21-25); ABG Oxygen Saturation 99.2 % (94-97); ABG PCO2 40 mmHg (35-45); ABG PH 7.36 (7.35-7.45); ABG PO2 169 mmHg (83-108); ABG TCO2 24 mmol/L (19-24); Allen Test Performed? Yes
[2020-07-22 05:05] LABS: Anisocytosis Slight; Basophils % (A) 0 %; Eosinophils # (A) 0.2 k/uL (0-0.7); Eosinophils % (A) 3 %; HCT 21.9 % (39.0-53.0); HGB 7.5 gm/dL (13.0-17.5); Lymphocytes # (A) 0.4 k/uL (1.0-4.8); Lymphocytes % (A) 6 %; MCH 30.7 pg (25.0-35.0); MCHC 34.2 g/dL (31.0-37.0); MCV 89.7 fL (80.0-100.0); Monocytes # (A) 0.2 k/uL (0-1.0); Monocytes % (A) 3 %; Neutrophils # (A) 6.4 k/uL (1.3-7.7); Neutrophils % (A) 88 %; Platelet Count 117 k/uL (150-450); RBC 2.44 m/uL (4.30-5.90); RDW 16.6 % (11.5-15.5); WBC 7.3 k/uL (3.8-10.6)
[2020-07-22 05:38] LABS: Albumin 2.6 g/dL (3.5-5.0); Calcium 8.3 mg/dL (8.4-10.2); Potassium 3.7 mmol/L (3.5-5.1); Total Bilirubin 1.3 mg/dL (0.2-1.3); Total Protein 4.8 g/dL (6.3-8.2)
[2020-07-22 06:10] LABS: Glucose,Whole Blood 103 mg/dL (75-99)
--- NOTE | 2020-07-22 06:30 | XR ---
EXAMINATION TYPE: XR chest 1V portable DATE OF EXAM: 07/22/2020 CLINICAL HISTORY: Difficulty breathing and covid progress study. TECHNIQUE: Single AP portable semiupright view of the chest is obtained. COMPARISON: Chest x-ray from one day earlier and older studies FINDINGS: Stable tracheostomy tube. Stable large bore right internal jugular dialysis catheter. Persistent bilateral multifocal and confluent opacities with some relative sparing of right mid lung is redemonstrated on background low lung volumes.. Cardiac silhouette size is stable and mildly enlar ged. Underlying scoliotic curvature lower thoracic spine is redemonstrated. IMPRESSION: Bilateral multifocal and confluent opacities consistent with covid-19 infection redemons trated. No significant interval change from one day earlier.
--- NOTE | 2020-07-22 06:39 | FL ---
EXAMINATION TYPE: FL guided central line placemt DATE OF EXAM: 07/21/2020 CLINICAL HISTORY: Renal failure. TECHNIQUE: Fluoroscopy. COMPARISON: None. FINDINGS: Fluoroscopic guidance was provided during permacath dialysis insertion procedure performed by Dr. Silva. A total of 39 seconds of fluoroscopic time was utilized during the procedure and 1 spot image is acquired. Single image acquired with large bore right internal jugular dialysis catheter with difficulty visual izing tip due to underpenetration. IMPRESSION: As Above.
[2020-07-22] MEDS: LACTATED RINGERS 1,000 ML IV SCH (06:41)
[2020-07-22] MEDS: ALBUTEROL HFA INHALER INHALATION SCH ×3 (08:10→18:58)
[2020-07-22] MEDS: DEXAMETHASONE SOD PHOSPHATE 10 MG/ML 1 ML VIAL IV SCH (10:06)
--- NOTE | 2020-07-22 11:33 | P.PN ---
Subjective Progress Note Date: 07/22/20 Principal diagnosis: Acute hypoxic respiratory failure second to COVId 19 pneumonia The patient is seen today 07/12/2020 in follow-up in the intensive care unit. He remains intubated, sedated on the mechanical ventilator at assist control mode of a rate of 36, tidal volume 450, FiO2 40% and a PEEP of 10. Morning blood gases reveal pO2 of 69, pCO2 41, pH 7.35. He remains sedated on propofol at 60 mcg/kg/m, fentanyl at 1 mcg/kg/h, norepinephrine at 0.09 mcg/kg//min, the patient is currently on 0.9 saline at rate of 50 mL an hour. The patient has been off Nimbex since yesterday. He is continued on Argatroban at 0.5 mcg/kg/m. Being nourished with Nepro at 15 ML's per hour. He did receive hemodialysis yesterday with 1 L removed. Chest x-ray reveals mild bibasilar infiltrates. Sputum cultures positive for beta-hemolytic strep, group C. White count 18.1. Hemoglobin 10.6. Platelet count 141. D-dimer 19.69. Sodium 133. Potassium 4.7. Creatinine 4.14. LDH 1067, C-reactive protein 24. Remains on antibiotics in the form of ceftriaxone. Bronchodilators. Vitamin supplements. Dexamethasone. 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 The platelet count is stable and the platelet count is up to 136. On 07/12/2020, the patient is being seen for follow-up. The patient is a 59-year-old obese male patient with a BMI of 36.2 with known history of obstructive sleep apnea, presented with COVID 19 related pneumonia patient is currently intubated on a mechanical ventilator. The patient has been on a mechanical ventilator since 07/05/2020. 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 During the course of his treatment, the patient developed an acute kidney injury secondary to ATN secondary to "with 19 infection. Urine output was improving and the patient's urine output was in order of 20-25 mL an hour. Due to persistent hyperkalemia and worsening renal function, the patient was started on hemodialysis on 07/10/2020. The potassium level improved post-hemodialysis. The patient also had significant metabolic acidosis and the patient was given bicarb infusion. Electrolytes are being monitored. The patient got dialyzed yesterday and this was his second hemodialysis. Nephrology is on the case. He is currently on Decadron 6 mg IV every 24 hours. His chest x-ray is showing patchy by the pulmonary infiltrates in lower lobes, slightly worsening in the chest x-ray findings on today's evaluation mainly in the peripheries and ET tube is in a good location. The patient remains on a mechanical ventilator assist control mode. He is on Nepro at 60 mL an hour. 07/13/2020, I'm seeing this patient for a follow-up. This is a case of a 59-year-old male patient with Covid 19 related pneumonia and acute kidney injury currently on hemodialysis. Worn-out, the patient is sedated and this morning the patient is currently on propofol running at 6 60 mcg/kg per minute and fentanyl is running at 1 mcg/kg/h and this is the same sedation it was being provided yesterday. The patient is on no paralytics for now. The patient is on a mechanical ventilator, on this morning's evaluation, he is on assist-control at the rate of 28 with a tidal volume of 450 and FiO2 of 50% and PEEP is 10. Blood gases from today showing a pH of 7.37 with a pCO2 of 47 and pO2 of 63. Chest x-ray from today is showing diffuse bilateral pulmonary infiltrates more so in the lower lobes bilaterally. ET tube is in a good location. Comparing this chest x-ray from yesterday, there is no major interval change in the findings are essentially stable. His peak airway pressures 28. His static pressures 24. The patient is is still on Decadron 6 mg IV every 24 hours. D- dimer today's at 13.3, his LDH level is at 1021 and the CRP is at 4.6. Note that his inflammatory markers essentially compatible to yesterday. His echoes at 13.7 with a hemoglobin of 9.2. Platelet count is 112. I took the patient off Agratoban and he was also placed on Eliquis at a dose of 5 mg by mouth twice a day. Noted the patient also is an acute kidney injury. The patient underwent dialysis and the spot he has taken 3 sessions of hemodialysis. He is producing urine output in the order of 20-30 mL an hour. His last session of hemodialysis was yesterday. In terms of his electrolytes, his BUN is at 80 with a creatinine of 3.5 and a sodium of 132 with a potassium of 4.4. He is currently on enteral feeding for dizziness support and is currently on Nepro at the rate of 50 mL an hour. He is currently off Rocephin. He is afebrile. He is requiring low-dose pressors were norepinephrine 30 dose of 0.03 mcg/kg per minute. Otherwise, no other significant events. He is afebrile. Sedation holiday was not done yesterday. IV fluids are running at 0.9 at the rate of 50 mL an hour. 07/14/2020, patient is being seen for follow-up. Sedated and still on a mechanical ventilator, probable resolving. 60 mcg/kg per minute and the patient is also on fentanyl at 1 mcg/kg/h. Adequately sedated. On a mechanical ventilator essentially vent settings being at tidal volume of 450 with an FiO2 of 50% and a PEEP of 10 and a rate of 28. These are essentially the same settings as yesterday. As far as blood gases, pO2 is at 79 with a pCO2 of 45 and a pH is at 7.35. He d-dimer is at 9.42 and the rest of the inflammatory markers show an LDH of 1062 which is stable compared to yesterday and a CRP of 87, slightly elevated compared to yesterday. His CPK is down to 231. His pro calcitonin level was at 0.58 and note that the patient has dialysis-dependent renal failure. As far as his creatinine, his creatinine today is at 3.97 with a mean of 96. He did not receive dialysis yesterday. His urine output is in order of 30-40 mL an hour and the fluid balance has been +1.1 L over the past 24 hours. His chest x-ray from today is showing lower lobe pulmonary infiltrates, essentially stable compared to yesterday. ET tube remains in excellent location. IV fluids are running at 20 cc an hour of normal saline. He is afebrile. He is tolerating his enteral feeding for nutritional support. Norepinephrine infusion which is running at 0.05 mcg/kg per minute. He remains on Decadron 6 mg IV every 24 , platelet count is stable at 121 and 11 avoiding heparin. Patient holiday yesterday was ultimately aborted as the patient became quite agitated after several hours without any meaningful neurological response. 07/15/2020, the patient is being seen for a follow-up. Sedated with propofol running at 60 mcg/kg per minute and fentanyl is at 1 mcg/kg/h and the level of sedation essentially the same as yesterday. Remains on a mechanical ventilator. He is an assist-control mode at the rate of 24 with a tidal volume of 450 and a PEEP of 8 with a FiO2 of 50%. He had a blood gas showing pH of 7.33 with a pCO2 of 46 and pO2 of 73. Chest x-ray is unchanged, probably slightly worse on the left in terms of that the patient is seeing on today's chest x-ray. ET tube remains in a good location. Inflammatory markers from today show a d-dimer of 9 with a LDH level of 1061 and a CRP of 78, comparable to yesterday. His pro calcitonin level was low. He got dialyzed yesterday. I attempted to wean down the PEEP to 6 and this was not successful and the patient desaturated in the P EEP was brought back up to 8 yesterday. Meanwhile, he is afebrile. He is producing urine output in the order of 20-30 mL an hour. He is on normal saline at the rate of 20 mL an hour. He remains on Decadron 6 mg IV to 24 hours. His platelet count is 132 which is essentially stable and improved compared to yesterday. In terms of pressors, the patient is currently on norepinephrine infusion at 0.04 mcg/kg per minute. I will today's condition essentially unchanged and his condition essentially the same as compared to yesterday 07/16/2020, remains on a mechanical ventilator on propofol at the rate of 60 mcg/kg per minute and fentanyl is at 2 mcg/kg/h. He remains off paralytics. At around 6:00 this morning, the patient had some oxygen desaturation. Based on that, I increased his FiO2 up to 60%. Currently is an assist-control mode rate of 28 with a tidal volume of 450 and a PEEP of 8 chest x-ray still showing diffuse bilateral pulmonary infiltrates left more than right. The blood gas shows a pH of 7.31 with a pCO2 of 45 and pO2 of 68. This was on FiO2 of 70%. Inflammatory markers show a d-dimer of 9.9 with a LDH level of 1103 and a CRP level of 62. The patient is on Decadron 6 mg IV every 24 hours. The patient is also on anticoagulation with Eliquis 2.5 mg by mouth twice a day. His platelet counts is 135. The chest x-ray findings are obviously worse and there is some worsening in the evaluation in the right lung compared to yesterday. Note that the patient did not get dialyzed yesterday. Today is a dialysis day for him. He is also on norepinephrine infusion running at 0.08 mcg/kg per minute. There is enough to maintain his blood pressure. He is receiving enteral feeding for discharge support and currently is on Nepro at a rate of 50 mL an hour which is currently at goal. No other significant events. Is adequately sedated for now. 07/17/2020, the patient is being seen for a follow-up. This morning he is on a combination of propofol and fentanyl running at 60 mics for propofol and 1 g for fentanyl. He was given a sedation holiday and she was able to tolerate initiated subsequently he decompensated and became hypoxic and he had to be placed back on sedation. Noted the patient became asynchronous. This morning, he is back on a mechanical ventilator mode at the rate of 28 with a tidal volume of 450 and her FiO2 is at 60% with a PEEP of 8. He underwent dialysis yesterday with a total of 2 liters of ultrafiltration. Note that he was able to tolerated dialysis without any major issues. He is on a minimal dose of norepinephrine infusion running at 0.06 mcg/kg per minute for blood pressure control. On today's evaluation, peak air pressures around 27. The blood gases from today shows a pH of 7.29 with a pCO2 of 40 and pO2 of 99 and this was on FiO2 of 60%. As mentioned, his PEEP is at 8. Chest x-ray still showing diffuse breath and pulmonary infiltrates unchanged without any major interval improvement or worsening. White cell count is at 50 with a hemoglobin of 8.2. Creatinine is at 3.4 and a urine output is in order of 30 mL an hour. No plans for hemodialysis today. He is receiving enteral feeding for nutritional support with Nepro at the rate of 50 mL an hour. He is stooling. Still sedation dependent. Unable to wean him off sedation because of a 6 and mean oxygen desaturations. I have approach the and the family with a possibility of ainsertion of a tracheostomy tube and a PEG tube for prolonged need of mechanical ventilation and failure for weaning. The patient has been intubated since 07/05/2020. The inflammatory markers from today shows an LDH level of 889, CRP is at 6 and the d-dimer is at 6.05. The patient has palpable pulses in his left upper extremity. She of his fingers are necrotic and the tip including the index, the platelet counts are stable and the patient is currently on Eliq uis 2.5 mg by mouth twice a day. Or 2020, the patient remains sedated with a combination of propofol and fentanyl running at 50 mcg/kg per minute for propofol and 1 mcg/kg per hour for fentanyl. He is sedated. In fact is deeply sedated. We are going to proceed with a sedation holiday on this patient today. He remains on a mechanical ventilator. He remains on a assist-control rate of 28, tidal volume of 450, FiO2 of 50% with a PEEP of 8. Attempts to wean the PEEP further failed and the patient became more hypoxic. As such, the patient is living At 8. This patient is a 7.26 with a pCO2 of 48 and pO2 of 71 today's blood gas. His chest x-ray showing stable bilateral pulmonary infiltrates essentially involving the lower lobes. ET tube is in a good location. Note that the patient is producing urine output in the order of 8200 mL an hour. His net fluid balance over the past 24 hours has been -83 mL. He has had a with a positive fluid balance for today. The findings on the case. The intent of the dialysis 3 times a week. His last dialysis was done on Sunday which is 2 days ago. His creatinine is up to 3.7 with a BUN of 84. Rest of the electrolytes are normal. Affect is running a lower sodium level of 1:30 with a potassium level of 4.1. Serum bicarbs at 20. In terms of his COVID-19 related pneumonia, the patient has a LDH level of 855, CRP level of 5.2 and his most recent d-dimer is at 5.4. He remains on steroids and he is on Decadron 6 mg IV every 24 hours. He did have a component of hit syndrome. This was related to heparin. He did receive Agratroban was ultimately discontinued once the patient's stated count picked up and it's platelet count is currently at 129. He does have necrotic fingers in his left upper extremity. Adequate pulses in the radial. No new vascular insults noted on today's examination. He is receiving enteral feeding for nutritional support and is currently on Nepro at the rate of 10 mL an hour. He is stooling. He is on Rocephin for strep in history of the blood cultures on 2 separate occasions. Otherwise, the blood cultures positive for coagulase-negative staph. Patient was reevaluated today on 07/19/2020, remains intubated and mechanically ventilated, he is off sedation and he is not showing any signs of neurological not responding to any stimuli. Patient is on assist control rate of 24th of volume 450 FiO2 50% and PEEP of 6. ABG showed a pO2 of 81 pCO2 41 pH of 7.31 patient is on enteral feeding. And he may undergo dialysis. We plan to have a tracheostomy and PEG tube placement in this patient, and he is basically a failure to wean. Today the sedation is placed on hold. Chest x-ray continues to show bilateral pulmonary infiltrates involving lower lobes. Endotracheal tube is in the proper position. Patient is making good urine, however his renal functioning seems to be getting worse. Electrolytes are normal. BUN is 91 creatinine 4.51 LDH is 893 liver enzymes are borderline elevated, C-reactive protein is 4.2 d-dimer 6.68. WBC count is 9.1 hemoglobin is 8.9 On 07/20/2020 patient seen in follow-up in intensive care unit, he was given daily traction of sedation yesterday, and his sedation was on hold for several hours and the patient never woke up over open his eyes or follow any commands, and as the day went on he started breathing fast, started desaturated and get agitated and was he was placed back on sedation on which she remains today, currently on Diprivan at 40 mics per kilo per minute, and fentanyl infusion at 1 mics per kilo per minute, and levo fed has been discontinued, he is on assist- control mode of ventilation with assist control rate of 24, tidal volumes of 4 50, FiO2 of 50% and PEEP of 6, this morning's blood gas shows pO2 of 92, pCO2 42, and pH is 7.32. He is in sinus mechanism, slightly tachycardic, his tube feedings are currently on hold in case of possibility of tracheostomy and PEG tube insertion however were still awaiting a response from his family on the decision in regards to proceeding with trach and PEG placement, today he is receiving hemodialysis treatment, and a 3 L in fluid was removed today. In terms of urine output he has been making urine in the order of 50-70 ML per hour, he remains on Lasix 80 mg twice daily, he remains on Rocephin for evidence of a beta-hemolytic strep in the sputum cultures, his follow-up sputum culture only showed Armida. History of resting comfortably in bed, he remains on IV dexamethasone 6 mg daily, has been off the levofed. Breasts labs have been reviewed, his white blood cell count is 8.1, hemoglobin is 8.1, his platelet count is 126, d-dimer is 13.3, sodium is 133, potassium 3.7, his renal function is relatively stable, with BUN of 82, and creatinine 4.51. These LDH is 792, CRP is 48. His had no acute events overnight, we spoke to his daughter yesterday in regards to patient's condition, and to discuss tracheostomy and PEG tube insertion, awaiting response from the family on their decision and the daughter indicated that patient had poor quality of life to start with and the were not sure if the workup and consent to the trach and PEG On 07/21/2000 patient seen in follow-up in the intensive care unit, yesterday he tolerated 11 hours of sedation holiday, and he was starting to follow simple commands, however is that day went on he was becoming more agitated and tachypneic, and he was placed back on sedation, currently on Diprivan at 40 mics per kilo per minute, and 0.9 at KVO, he remains intubated, on assist control mode of ventilation, with a rate of 24, Tylox 450, FiO2 of 50% and PEEP of 6, this morning's blood gases show pO2 133, pCO2 of 41, and pH is 7.38. Patient is resting comfortably, appears to be in no acute distress, he is not on any vasoactive drugs, no vasopressors, she is in sinus rhythm sinus tach with a rate of 90-106 BPM, hemodialysis treatment this morning, and attended have liters of fluid was taken off, his vital signs have been stable overnight, no fever or chills, lung sounds are diminished. She also remains on IV Lasix 80 mg twice da waylon, patient is producing urine in the order of 30-60 ML per hour, and she is in -4.1 L over the last 24 hours with additional -2.49 fluid balance since midnight last night. Chest x-ray shows interval improvement in bilateral airspace infiltrates particularly within the right upper lobe. Today's labs have been reviewed, showing white blood cell count 7.1, hemoglobin of 7.4, platelet count is 120, sodium is 130, potassium is 3.2, chloride is 104, CO2 of 23, BUN of 75 and creatinine of 4.01. Patient remains on Rocephin for beta-hemolytic strep in the sputum, repeat culture of the sputum showed only Armida. He is tolerating tube feedings which are on hold for tracheostomy and PEG tube placement which is scheduled for today. On 07/22/2020 patient seen in follow-up in intensive care unit, he remains sedated and trach to the ventilator, on assist-control mode of ventilation with a rate of 24, her lungs were 50, FiO2 50% and PEEP of 6, his blood gas shows pO2 of 169, pCO2 40, pH of 7.36, patient is currently on Diprivan at 55 mics per kilo per minute, he is on 0.9 normal saline at 10 ML per hour, Levophed that he is at 0.02 mics per kilo per minute. Patient is having hemodialysis treatment right now. Patient received tracheostomy and PEG tube yesterday. His hemodialysis access was switched to right subclavian approach. He still has a central line in his groin which will need to be switched to a PICC line. Today's chest x-ray showed bilateral multifocal and confluent opacities consistent with COVID-19 infection with no significant interval change. Vital signs have been stable, his sat 98% on the above mentioned settings, requiring small dose of Levafed. 2 feedings will be started sometime today, he is on Rocephin for evidence of 5 beta-hemolytic strep in the sputum, follow-up sputum culture only showed Armida albicans. She had no acute events overnight. He re leonila on Decadron 6 mg daily, he is Eliquis will be started tonight if it's okay with surgery. No other acute events overnight, and -2.4 L fluid balance over the last 24 hours. He does remains generally swollen. Objective - Vital Signs Vital signs: Vital Signs Temp 98.4 F 07/22/20 08:00 Pulse 110 H 07/22/20 10:00 Resp 25 H 07/22/20 10:00 BP 116/69 07/21/20 17:00 Pulse Ox 98 07/22/20 10:00 Intake & Output 07/21/20 07/22/20 07/22/20 18:59 06:59 18:59 Intake Total 685.985 511.279 243.663 Output Total 2995 670 195 Balance -2309.015 -158.721 48.663 Weight 119.2 kg 119.2 kg Intake: IV 334 143 52 0.9 Normal Saline 24 33 12 Pressure Bag 0.9 Normal Saline at KVO 60 110 40 Potassium Chloride 20 meq 200 In Water For Injection 1 100ml.bag @ 50 mls/hr IVPB Q2H [facility] Rx#: [id number] [id number] 1 gm In 50 Sodium Chloride 0.9% 50 ml @ 100 mls/hr IVPB Q24HR [facility] Rx#:[id number] Intake, IV Titration 351.985 368.279 191.663 Amount Norepinephrine 8 mg In 9.054 Sodium Chloride 0.9% 250 ml @ 0.05 MCG/KG/MIN 12. 403 mls/hr IV .[id number] [facility] Rx#:[id number] propofoL 1,000 mg In 351.985 359.225 191.663 Empty Bag 1 bag @ Titrate IV .Q0M [facility] Rx#: [id number] Tube Feeding 0 0 Output: Urine 475 670 195 Hemodialysis 2500 Estimated Blood Loss 20 Other: Voiding Method Indwelling Catheter Indwelling Catheter Indwelling Catheter ABP, PAP, CO, CI - Last Documented Arterial Blood Pressure 119/63 - Exam GENERAL EXAM: Sedated, intubated, morbidly obese 51-year-old white male, on ass ist-control mode of ventilation with a 50% PEEP of 6, comfortable in no apparent distress. HEAD: Normocephalic/atraumatic. EYES: Normal reaction of pupils, equal size. Conjunctiva pink, sclera white. NOSE: Clear with pink turbinates. THROAT: No erythema or exudates. NECK: No masses, no JVD, no thyroid enlargement, no adenopathy. Midline tracheostomy connected to the ventilator CHEST: No chest wall deformity. Symmetrical expansion. Right subclavian permacath in place and patient is receiving hemodialysis LUNGS: Equal air entry with no crackles, wheeze, rhonchi or dullness. CVS: Regular rate and rhythm, normal S1 and S2, no gallops, no murmurs, no rubs ABDOMEN: Soft, nontender. No hepatosplenomegaly, normal bowel sounds, no guarding or rigidity. PEG tube in place EXTREMITIES: No clubbing, generalized edema no cyanosis, 2+ pulses and upper and lower extremities. Patient has black fingertips on his left hand MUSCULOSKELETAL: Muscle strength and tone normal. Right groin temporary he modialysis catheter in place SPINE: No scoliosis or deformity SKIN: No rashes CENTRAL NERVOUS SYSTEM: Sedated, intubated. No focal deficits, tone is normal in all 4 extremities. - Labs CBC & Chem 7: 07/22/20 04:45 07/22/20 04:45 Labs: Abnormal Lab Results - Last 24 Hours (Table) 07/21/20 07/21/20 07/22/20 Range/Units 11:33 23:36 04:39 RBC (4.30-5.90) m/uL Hgb (13.0-17.5) gm/dL Hct (39.0-53.0) % RDW (11.5-15.5) % Plt Count (150-450) k/uL Lymphocytes # (1.0-4.8) k/uL ABG pO2 169 H (83-108) mmHg ABG O2 Saturation 99.2 H (94-97) % Sodium (137-145) mmol/L Carbon Dioxide (22-30) mmol/L BUN (9-20) mg/dL Creatinine (0.66-1.25) mg/dL POC Glucose (mg/dL) 102 H 104 H (75-99) mg/dL Calcium (8.4-10.2) mg/dL Total Protein (6.3-8.2) g/dL Albumin (3.5-5.0) g/dL 07/22/20 07/22/20 07/22/20 Range/Units 04:45 04:45 06:09 RBC 2.44 L (4.30-5.90) m/uL Hgb 7.5 L (13.0-17.5) gm/dL Hct 21.9 L (39.0-53.0) % RDW 16.6 H (11.5-15.5) % Plt Count 117 L (150-450) k/uL Lymphocytes # 0.4 L (1.0-4.8) k/uL ABG pO2 (83-108) mmHg ABG O2 Saturation (94-97) % Sodium 134 L (137-145) mmol/L Carbon Dioxide 21 L (22-30) mmol/L BUN 68 H (9-20) mg/dL Creatinine 3.42 H (0.66-1.25) mg/dL POC Glucose (mg/dL) 103 H (75-99) mg/dL Calcium 8.3 L (8.4-10.2) mg/dL Total Protein 4.8 L (6.3-8.2) g/dL Albumin 2.6 L (3.5-5.0) g/dL Assessment and Plan Plan: Assessment: #1. Acute hypoxic respiratory failure secondary to COVID-19 pneumonia. Patient received toci and convalescent plasma., Patient is status post tracheostomy and PEG tube placement on 07/21/2020 #2. Acute kidney injury requiring dialysis. #3. Severe metabolic acidosis, improved and resolved after dialysis. #4. Hyperkalemia secondary to above, improved with hemodialysis #5. Benign essential hypertension. #6. Superficial vein thromboses and left cephalic vein and left basilic vein #7. 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 History of obstructive sleep apnea syndrome #9. Morbid obesity #10. Increased d-dimer related to COVID-19, patient was started on Eliquis which will be restarted after his surgical procedures Plan: Drop FiO2 down to 45% and PEEP down to 5 Continue Decadron, may restart Eliquis at 2.5 mg twice daily tonight if it cleared by surgery Proceed with daily interruption sedation after hemodialysis, leave off sedation if tolerates it Continue antibiotics Patient will start on tube feedings this afternoon PICC line today and discontinue the femoral central venous catheter is at risk for infection Assessment mental status, continue Lasix H[employer] consult to start arranging for LTAC placement I performed a history & physical examination of the patient and discussed their management with my nurse practitioner, Nelia Conley. I reviewed the nurse practitioner's note and agree with the documented findings and plan of care. Lung sounds are positive for diminished breath sounds The findings and the impression was discussed with the patient. I attest to the documentation by the nurse practitioner. Time with Patient: Greater than 30
[2020-07-22] MEDS: SERTRALINE 100 MG TAB PO SCH (11:41)
[2020-07-22] MEDS: CHLORHEXIDINE GLUCONATE 15 ML CUP MUCOUS MEM SCH ×2 (11:42→20:38)
[2020-07-22] MEDS: SODIUM BICARBONATE TAB 650 MG TAB PO SCH (11:42)
[2020-07-22] MEDS: CHOLECALCIFEROL 25 MCG (1000 IU) TABLET PO SCH (11:42)
[2020-07-22] MEDS: ZINC SULFATE 220 MG CAP PO SCH (11:42)
[2020-07-22] MEDS: FUROSEMIDE 10 MG/ML 10 ML VIAL IV SCH ×2 (11:43→20:38)
[2020-07-22] MEDS: PANTOPRAZOLE 40 MG/10 ML VIAL IVP SCH ×2 (11:43→20:38)
[2020-07-22 12:10] LABS: Glucose,Whole Blood 95 mg/dL (75-99)
--- NOTE | 2020-07-22 12:14 | P.PN ---
Subjective Progress Note Date: 07/22/20 Principal diagnosis: acute kidney injury The patient is seen and examined lying in the ICU. He is status post PEG tube and tracheostomy placement yesterday. He also underwent right IJ hemodialysis tunneled catheter placement. He is currently receiving hemodialysis without any difficulties. His left groin temporary catheter was discontinued. He has had no signs of bleeding from that site. Objective - Vital Signs Vital signs: Vital Signs Temp 98.4 F 07/22/20 08:00 Pulse 101 H 07/22/20 08:00 Resp 29 H 07/22/20 08:00 BP 116/69 07/21/20 17:00 Pulse Ox 99 07/22/20 08:00 Intake & Output 07/21/20 07/22/20 07/22/20 18:59 06:59 18:59 Intake Total 685.985 511.279 117.663 Output Total 2995 670 95 Balance -2309.015 -158.721 22.663 Weight 119.2 kg Intake: IV 334 143 26 0.9 Normal Saline 24 33 6 Pressure Bag 0.9 Normal Saline at KVO 60 110 20 Potassium Chloride 20 meq 200 In Water For Injection 1 100ml.bag @ 50 mls/hr IVPB Q2H [facility] Rx#: [id number] cefTRIAXone 1 gm In 50 Sodium Chloride 0.9% 50 ml @ 100 mls/hr IVPB Q24HR [facility] Rx#:[id number] Intake, IV Titration 351.985 368.279 91.663 Amount Norepinephrine 8 mg In 9.054 Sodium Chloride 0.9% 250 ml @ 0.05 MCG/KG/MIN 12. 403 mls/hr IV .[id number] [facility] Rx#:[id number] propofoL 1,000 mg In 351.985 359.225 91.663 Empty Bag 1 bag @ Titrate IV .Q0M [facility] Rx#: [id number] Tube Feeding 0 0 Output: Urine 475 670 95 Hemodialysis 2500 Estimated Blood Loss 20 Other: Voiding Method Indwelling Catheter Indwelling Catheter ABP, PAP, CO, CI - Last Documented Arterial Blood Pressure 120/57 - Exam General appearance: The patient is sedated on mechanical ventilation HET: Head is normocephalic and atraumatic. Neck: Supple without lymphadenopathy. Trachea midline. Right IJ tunneled catheter site clean dry and intact, patient currently undergoing hemodialysis. Abdomen: Soft, nontender, nondistended. Extremities: left groin with no signs of bleeding. bilateral lower extremity edema. Bilateral upper extremity edema. Left extremity with first through fourth finger tips with demarcation. Neurological: sedated on mechanical ventilation - Labs CBC & Chem 7: 07/22/20 04:45 07/22/20 04:45 Labs: Abnormal Lab Results - Last 24 Hours (Table) 07/21/20 07/21/20 07/22/20 Range/Units 11:33 23:36 04:39 RBC (4.30-5.90) m/uL Hgb (13.0-17.5) gm/dL Hct (39.0-53.0) % RDW (11.5-15.5) % Plt Count (150-450) k/uL Lymphocytes # (1.0-4.8) k/uL ABG pO2 169 H (83-108) mmHg ABG O2 Saturation 99.2 H (94-97) % Sodium (137-145) mmol/L Carbon Dioxide (22-30) mmol/L BUN (9-20) mg/dL Creatinine (0.66-1.25) mg/dL POC Glucose (mg/dL) 102 H 104 H (75-99) mg/dL Calcium (8.4-10.2) mg/dL Total Protein (6.3-8.2) g/dL Albumin (3.5-5.0) g/dL 07/22/20 07/22/20 07/22/20 Range/Units 04:45 04:45 06:09 RBC 2.44 L (4.30-5.90) m/uL Hgb 7.5 L (13.0-17.5) gm/dL Hct 21.9 L (39.0-53.0) % RDW 16.6 H (11.5-15.5) % Plt Count 117 L (150-450) k/uL Lymphocytes # 0.4 L (1.0-4.8) k/uL ABG pO2 (83-108) mmHg ABG O2 Saturation (94-97) % Sodium 134 L (137-145) mmol/L Carbon Dioxide 21 L (22-30) mmol/L BUN 68 H (9-20) mg/dL Creatinine 3.42 H (0.66-1.25) mg/dL POC Glucose (mg/dL) 103 H (75-99) mg/dL Calcium 8.3 L (8.4-10.2) mg/dL Total Protein 4.8 L (6.3-8.2) g/dL Albumin 2.6 L (3.5-5.0) g/dL Assessment and Plan Assessment: 1. Acute kidney injury requiring hemodialysis 2. Left hand ischemia, microvascular occlusions, biphasic radial and ulnar signals 3. Acute hypoxic respiratory failure from covid pna 4. Thrombocytopenia 5. Hypertension 6. Obesity 7. Obstructive sleep apnea 8. Superficial venous thrombus Plan: 1. Continue symptomatic and supportive care 2. Patient is status post right IJ tunneled catheter placement 3. Continue ICU management 4. Hemodialysis as ordered per nephrology Thank you for this consultation, we will sign off at this time. The impression and plan of care has been dictated as directed. Dr. Silva I performed a history and examination of this patient, discussed the same with the dictator. I agree with the dictator's note ,documented as a scribe. Any additional findings or plans will be noted.
[2020-07-22] MEDS ORDERED: LIDOCAINE 1% INJ 10MG/ML (20 ML MDV) SQ ONE (13:25)
--- NOTE | 2020-07-22 13:45 | P.PN ---
Subjective Progress Note Date: 07/22/20 CHIEF COMPLAINT: Shortness of breath HISTORY OF PRESENT ILLNESS: Patient currently in the ICU and on mechanical ventilation. He has been on the vent since 07/05/2020. He has acute hypoxic respiratory failure due to COVID-19 pneumonia. He also has HIT. Patient is status post tracheostomy and PEG tube placement. Tube feedings will be started today. Patient is getting hemodialysis. Afebrile WBC 7.3 hemoglobin 7.5 platelets 170 PHYSICAL EXAM: VITAL SIGNS: Reviewed. GENERAL: Well-developed in no acute distress. HEENT: No sclera icterus. Extraocular movements grossly intact. Moist buccal mucosa. Head is atraumatic, normocephalic. Tracheostomy site clean dry and intact ABDOMEN: Soft. Nondistended. Nontender. PEG tube site clean dry and intact NEUROLOGIC: Intubated and sedated ASSESSMENT: 1. Acute hypoxic respiratory failure secondary to acute COVID-19 pneumonia with prolonged mechanical ventilation. Status post tracheostomy placement 2. Severe Protein calorie malnutrition status post PEG tube placement 3. Acute kidney injury requiring hemodialysis 4. Left upper extremity DVT patient had been on Eliquis 5. Heparin-induced thrombocytopenia PLAN: -Continue ICU management -Continue supportive care -Titrate PEG tube feedings per dietitian Physician Brick Carrier note has been reviewed by physician. Signing provider agrees with the documented findings, assessment, and plan of care. Objective - Vital Signs Vital signs: Vital Signs Temp 98.4 F 07/22/20 12:00 Pulse 112 H 07/22/20 13:00 Resp 33 H 07/22/20 13:00 BP 98/62 07/22/20 11:24 Pulse Ox 96 07/22/20 13:00 Intake & Output 07/21/20 07/22/20 07/22/20 18:59 06:59 18:59 Intake Total 685.985 511.279 482.746 Output Total 2995 670 405 Balance -2309.015 -158.721 77.746 Weight 119.2 kg 119.2 kg Intake: IV 334 143 91 0.9 Normal Saline 24 33 21 Pressure Bag 0.9 Normal Saline at KVO 60 110 70 Potassium Chloride 20 meq 200 In Water For Injection 1 100ml.bag @ 50 mls/hr IVPB Q2H [facility] Rx#: [id number] cefTRIAXone 1 gm In 50 Sodium Chloride 0.9% 50 ml @ 100 mls/hr IVPB Q24HR [facility] Rx#:[id number] Intake, IV Titration 351.985 368.279 315.746 Amount Norepinephrine 8 mg In 9.054 Sodium Chloride 0.9% 250 ml @ 0.05 MCG/KG/MIN 12. 403 mls/hr IV .[id number] [facility] Rx#:[id number] cefTRIAXone 1 gm In 50 Sodium Chloride 0.9% 50 ml @ 100 mls/hr IVPB Q24HR [facility] Rx#:[id number] propofoL 1,000 mg In 351.985 359.225 265.746 Empty Bag 1 bag @ Titrate IV .Q0M [facility] Rx#: [id number] Tube Feeding 0 0 46 Other 30 Output: Urine 475 670 405 Hemodialysis 2500 Estimated Blood Loss 20 Other: Voiding Method Indwelling Catheter Indwelling Catheter Indwelling Catheter ABP, PAP, CO, CI - Last Documented Arterial Blood Pressure 135/69 - Labs CBC & Chem 7: 07/22/20 04:45 07/22/20 04:45 Labs: Abnormal Lab Results - Last 24 Hours (Table) 07/21/20 07/22/20 07/22/20 Range/Units 23:36 04:39 04:45 RBC 2.44 L (4.30-5.90) m/uL Hgb 7.5 L (13.0-17.5) gm/dL Hct 21.9 L (39.0-53.0) % RDW 16.6 H (11.5-15.5) % Plt Count 117 L (150-450) k/uL Lymphocytes # 0.4 L (1.0-4.8) k/uL ABG pO2 169 H (83-108) mmHg ABG O2 Saturation 99.2 H (94-97) % Sodium (137-145) mmol/L Carbon Dioxide (22-30) mmol/L BUN (9-20) mg/dL Creatinine (0.66-1.25) mg/dL POC Glucose (mg/dL) 104 H (75-99) mg/dL Calcium (8.4-10.2) mg/dL Total Protein (6.3-8.2) g/dL Albumin (3.5-5.0) g/dL 07/22/20 07/22/20 Range/Units 04:45 06:09 RBC (4.30-5.90) m/uL Hgb (13.0-17.5) gm/dL Hct (39.0-53.0) % RDW (11.5-15.5) % Plt Count (150-450) k/uL Lymphocytes # (1.0-4.8) k/uL ABG pO2 (83-108) mmHg ABG O2 Saturation (94-97) % Sodium 134 L (137-145) mmol/L Carbon Dioxide 21 L (22-30) mmol/L BUN 68 H (9-20) mg/dL Creatinine 3.42 H (0.66-1.25) mg/dL POC Glucose (mg/dL) 103 H (75-99) mg/dL Calcium 8.3 L (8.4-10.2) mg/dL Total Protein 4.8 L (6.3-8.2) g/dL Albumin 2.6 L (3.5-5.0) g/dL
--- NOTE | 2020-07-22 13:50 | XR ---
EXAMINATION TYPE: XR chest 1V confirm line [facility] DATE OF EXAM: 07/22/2020 CLINICAL HISTORY: PICC line placement. TECHNIQUE: Single AP portable semiupright view of the chest is obtained. COMPARISON: Chest x-ray from earlier today and older studies FINDINGS: New left-sided PICC line terminates in SVC. Stable tracheostomy tube. Stable large bore right internal jugular dialysis catheter. Persistent bilateral multifocal and confluent opacities with some relative sparing of right mid lung is redemonstrated on background low lung volumes. Age-indeterminate right lateral upper to midrib fra ctures redemonstrated. Cardiac silhouette size is stable and mildly enlarged. Underlying scoliotic cu rvature lower thoracic spine is redemonstrated. IMPRESSION: Bilateral multifocal and confluent opacities on background low lung volumes consistent wi th covid-19 infection redemonstrated. No significant interval change from earlier today. New left-si ded PICC line terminates in SVC. IMPRESSION: Overall stable findings,
--- NOTE | 2020-07-22 14:00 | IR ---
EXAMINATION TYPE: IR cvc insert >=5 years DATE OF EXAM: 07/22/2020 COMPARISON: NONE HISTORY: Covid pneumonia, needs long-term intravenous access for therapy FINDINGS: Maximal barrier technique was utilized. Hand hygiene obtained with soap and water and alco hol-based hand rub. The skin overlying the left basilic vein was localized with ultrasound and noted to be compressible and patent by ultrasound. An ultrasound image [facility] obtained [facility]. Sterile technique utilized with the ultrasound machine. The skin overlying was prepped an d draped and Lidocaine used for local anesthesia. A skin jaxon was made with a scalpel. Access was g ained to the vein under direct ultrasound guidance with a 21-gauge needle and a 0.018 inch wire was a dvanced. Access site was dilated with a peel-away sheath and the catheter tailored to length. Hina ter advanced centrally and a post procedure chest x-ray verified placement with tip at the superior v mechelle cava. Catheter was fixed to the skin and a sterile dressing placed. Hemostasis achieved and the catheter was aspirated and flushed with sterile saline. The patient remained in stable condition. IMPRESSION: STATUS POST ULTRASOUND GUIDED PICC LINE PLACEMENT, READY FOR USE. THIS PROCEDURE WAS PER FORMED BY THE UNDERSIGNED.
--- NOTE | 2020-07-22 17:18 | PN ---
PROGRESS NOTE Patient is seen for followup for acute kidney injury, currently dialysis-dependent. He also has COVID pneumonia with acute hypoxic respiratory failure and volume overload. Patient's volume status has improved. His oxygen requirement has decreased as well. FiO2 is down to about 45%. He continues to have some urine output, currently at about 50 to 100 mL/hour. On examination today, blood pressure this morning was 112/60, heart rate of 101 per minute. Patient is afebrile. Examination of lower extremities shows edema 2+ bilaterally. Abdomen is soft, distended, nontender. ASSESSMENT: 1. Acute kidney injury, acute tubular necrosis, secondary to hypotension, sepsis, currently nonoliguric. Patient had significant volume overload and he was started on dialysis and has tolerated treatment. So far we have had about 9 to 10 liters of ultrafiltration over the past week. He has been tolerating his treatments well. FiO2 is down to about 45%. 2. Acute hypoxic respiratory failure secondary to COVID pneumonia. 3. Metabolic acidosis, currently resolved. 4. Status post trach and PEG. PLAN: Hold hemodialysis tomorrow. Continue with the IV Lasix. Repeat labs in a.m. MMODL / IJN: [id number] /
[2020-07-22 17:26] LABS: Glucose,Whole Blood 123 mg/dL (75-99)
--- NOTE | 2020-07-22 19:20 | P.PN ---
Subjective Progress Note Date: 07/22/20 Patient was seen for a follow-up. Patient not showing any signs of clinical improvement. Patient currently on propofol. Patient apparently had sedation holiday last night, and was told that his heart rate went up and was told that he was following some commands. Objective - Vital Signs Vital signs: Vital Signs Temp 98.1 F 07/22/20 16:00 Pulse 96 07/22/20 18:00 Resp 25 H 07/22/20 18:00 BP 103/72 07/22/20 18:00 Pulse Ox 99 07/22/20 18:00 Intake & Output 07/21/20 07/22/20 07/22/20 18:59 06:59 18:59 Intake Total 685.985 511.279 840.256 Output Total 2995 670 905 Balance -2309.015 -158.721 -64.744 Weight 119.2 kg 119.2 kg Intake: IV 334 143 156 0.9 Normal Saline 24 33 36 Pressure Bag 0.9 Normal Saline at KVO 60 110 120 Potassium Chloride 20 meq 200 In Water For Injection 1 100ml.bag @ 50 mls/hr IVPB Q2H [facility] Rx#: [id number] cefTRIAXone 1 gm In 50 Sodium Chloride 0.9% 50 ml @ 100 mls/hr IVPB Q24HR [facility] Rx#:[id number] Intake, IV Titration 351.985 368.279 463.256 Amount Norepinephrine 8 mg In 9.054 Sodium Chloride 0.9% 250 ml @ 0.05 MCG/KG/MIN 12. 403 mls/hr IV .[id number] [facility] Rx#:[id number] cefTRIAXone 1 gm In 50 Sodium Chloride 0.9% 50 ml @ 100 mls/hr IVPB Q24HR [facility] Rx#:[id number] propofoL 1,000 mg In 351.985 359.225 413.256 Empty Bag 1 bag @ Titrate IV .Q0M [facility] Rx#: [id number] Tube Feeding 0 0 161 Other 60 Output: Urine 475 670 905 Hemodialysis 2500 Estimated Blood Loss 20 Other: Voiding Method Indwelling Catheter Indwelling Catheter Indwelling Catheter ABP, PAP, CO, CI - Last Documented Arterial Blood Pressure 118/64 - Exam On examination patient is a middle aged male, appears very obtunded, does not follow command. He is sedated on propofol 55 g. Patient has sluggishly reacting pupils. As per past medical history and nursing report, patient is legally blind. Oculocephalics are present. Corneals are present. Patient does breathe over the ventilator. He has cough and gag. Patient has no obvious seizure activity. Tone is decreased, particularly in the hands. Patient has demarcation of the fingertips of the left hand from ischemia. Reflexes are absent, plantars are flat. Patient has moderate peripheral edema. Abdomen is soft. - Labs CBC & Chem 7: 07/23/20 06:51 07/23/20 05:12 Labs: Abnormal Lab Results - Last 24 Hours (Table) 07/21/20 07/22/20 07/22/20 Range/Units 23:36 04:39 04:45 RBC 2.44 L (4.30-5.90) m/uL Hgb 7.5 L (13.0-17.5) gm/dL Hct 21.9 L (39.0-53.0) % RDW 16.6 H (11.5-15.5) % Plt Count 117 L (150-450) k/uL Lymphocytes # 0.4 L (1.0-4.8) k/uL ABG pO2 169 H (83-108) mmHg ABG O2 Saturation 99.2 H (94-97) % Sodium (137-145) mmol/L Carbon Dioxide (22-30) mmol/L BUN (9-20) mg/dL Creatinine (0.66-1.25) mg/dL POC Glucose (mg/dL) 104 H (75-99) mg/dL Calcium (8.4-10.2) mg/dL Total Protein (6.3-8.2) g/dL Albumin (3.5-5.0) g/dL 07/22/20 07/22/20 07/22/20 Range/Units 04:45 06:09 17:25 RBC (4.30-5.90) m/uL Hgb (13.0-17.5) gm/dL Hct (39.0-53.0) % RDW (11.5-15.5) % Plt Count (150-450) k/uL Lymphocytes # (1.0-4.8) k/uL ABG pO2 (83-108) mmHg ABG O2 Saturation (94-97) % Sodium 134 L (137-145) mmol/L Carbon Dioxide 21 L (22-30) mmol/L BUN 68 H (9-20) mg/dL Creatinine 3.42 H (0.66-1.25) mg/dL POC Glucose (mg/dL) 103 H 123 H (75-99) mg/dL Calcium 8.3 L (8.4-10.2) mg/dL Total Protein 4.8 L (6.3-8.2) g/dL Albumin 2.6 L (3.5-5.0) g/dL Assessment and Plan Assessment: * Toxic metabolic encephalopathy, severe in degree. Reasons multifactorial as mentioned. * Acute kidney injury requiring hemodialysis. * Acute hypoxic respiratory failure from COVID-19 related pneumonia, getting worse. Today's chest x-ray showed bilateral multifocal and confluent opacities on background low lung volumes consistent with Covid-19 infection redemonstrated. No significant interval change from earlier today. (as per chest x-ray today). * Left hand ischemia * Anemia * Hypertension * Morbid obesity * Obstructive sleep apnea * Superficial venous thrombosis Plan: * Patient has severe toxic metabolic encephalopathy due to secondary effect of multiorgan dysfunction including acute renal failure, respiratory failure due to severe bilateral pneumonia, acute COVID-19 infection. 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 * EEG also revealed severe degree of background slowing consistent with encephalopathy. No epileptiform activity seen. * Check computed tomography scan of the head to rule out any intracranial process. * Prognosis is mainly dependent upon underlying medical/metabolic/infectious conditions, which I would defer to critical care/IM. Addendum: CT head revealed decreased attenuation within the high right frontal lobe suggestive of small stroke, with increased attenuation in the associated cortical ribbon, suggestive of possible petechial hemorrhage. Patient has been on Apixaban, which was discontinued on 07/19/2020 for anticipation for tracheostomy. Will repeat CT head in the morning to follow-up on the hemorrhage.
[2020-07-22] MEDS: SODIUM CHLORIDE 0.9% 1,000 ML IV SCH (19:55)
--- NOTE | 2020-07-22 21:13 | CT ---
EXAMINATION TYPE: CT brain wo con DATE OF EXAM: 07/22/2020 COMPARISON: None HISTORY: AMS, rule out CVA. Covid pneumonia CT DLP: 1188.[address] of the brain was performed. The ventricles, basal cisterns and sulci overlying the cerebral convexities demonstrate mild enlargem ent. + There is no evidence for intracranial hemorrhage or sulcal effacement. There is decreased attenuation about the periventricular white matter and deep white matter of both c erebral hemispheres, compatible with chronic small vessel ischemia. Differential diagnosis does inclu de demyelination. No mass effects are seen.No midline shift. Osseous calvarium is intact. If symptoms persist consider MRI. IMPRESSION: 1. There is decreased attenuation within the high right frontal lobe without cortical increased atten uation seen which could reflect petechial hemorrhage. Correlate clinically and progress studies are a dvised.
[2020-07-22 23:51] LABS: Glucose,Whole Blood 110 mg/dL (75-99)
[2020-07-23 05:30] LABS: ABG Base Excess 0.6 mmol/L; ABG HCO3 26 mmol/L (21-25); ABG Oxygen Saturation 99.6 % (94-97); ABG PCO2 43 mmHg (35-45); ABG PH 7.39 (7.35-7.45); ABG PO2 149 mmHg (83-108); ABG TCO2 27 mmol/L (19-24); Allen Test Performed? Yes
[2020-07-23 05:53] LABS: Albumin 2.6 g/dL (3.5-5.0); C Reactive Protein 5.6 mg/dL (<1.0); Calcium 8.5 mg/dL (8.4-10.2); Potassium 3.5 mmol/L (3.5-5.1); Total Protein 4.9 g/dL (6.3-8.2)
[2020-07-23] MEDS: INSULIN ASPART (NovoLOG) 100 UNIT/ML VIAL SQ SCH ×4 (05:56→23:33)
[2020-07-23] MEDS ORDERED: Potassium Replacement Protocol 1 EACH MISC MISCELLANE PRN (05:57)
[2020-07-23] MEDS: POTASSIUM BICARBONATE/CIT AC 20 MEQ TABLET.EFF NG-TUBE SCH ×2 (06:01→06:47)
[2020-07-23] MEDS: NOREPINEPHRINE 8 MG in SODIUM CHLORIDE 0.9% 250 ML IV SCH (06:28)
--- NOTE | 2020-07-23 07:28 | XR ---
EXAMINATION TYPE: XR chest 1V portable DATE OF EXAM: 07/23/2020 Comparison: 07/22/2020 Clinical History: 59-year-old male mechanical vent Findings: Tracheostomy cannula. Left tip at the cavoatrial junction. Right-sided double-lumen hemodialysis cath eter tips in the right atrium. Heart borderline in size. Diffuse groundglass airspace opacity bilater ally persists along with small effusions and patchy bibasilar opacities. Relatively unchanged. Impression: Continued diffuse bilateral groundglass airspace disease/pulmonary edema. Continued small effusions w ith adjacent atelectasis and/or consolidation.
[2020-07-23 07:59] LABS: Anisocytosis Slight; HCT 22.9 % (39.0-53.0); HGB 7.4 gm/dL (13.0-17.5); MCH 29.7 pg (25.0-35.0); MCHC 32.4 g/dL (31.0-37.0); MCV 91.6 fL (80.0-100.0); Mean Platelet Volume 7.7; Platelet Count 115 k/uL (150-450); RBC 2.49 m/uL (4.30-5.90); RDW 17.1 % (11.5-15.5); WBC 5.6 k/uL (3.8-10.6)
[2020-07-23] MEDS: ALBUTEROL HFA INHALER INHALATION SCH ×3 (08:00→19:46)
[2020-07-23] MEDS: SERTRALINE 100 MG TAB PO SCH (09:52)
[2020-07-23] MEDS: ARIPiprazole 5 MG TAB PO SCH (09:52)
[2020-07-23] MEDS: CHOLECALCIFEROL 25 MCG (1000 IU) TABLET PO SCH (09:53)
[2020-07-23] MEDS: CHLORHEXIDINE GLUCONATE 15 ML CUP MUCOUS MEM SCH (09:53)
[2020-07-23] MEDS: CALCIUM ACETATE 667 MG TAB PO SCH ×2 (09:59)
[2020-07-23] MEDS: SODIUM BICARBONATE TAB 650 MG TAB PO SCH (09:59)
[2020-07-23] MEDS: ZINC SULFATE 220 MG CAP PO SCH (09:59)
[2020-07-23] MEDS: PANTOPRAZOLE 40 MG/10 ML VIAL IVP SCH ×2 (10:02→20:45)
[2020-07-23] MEDS: FUROSEMIDE 10 MG/ML 10 ML VIAL IV SCH ×2 (10:03→20:45)
[2020-07-23] MEDS: DEXAMETHASONE SOD PHOSPHATE 10 MG/ML 1 ML VIAL IV SCH (10:03)
[2020-07-23] MEDS ORDERED: POTASSIUM CHLORIDE 20 MEQ in WATER FOR INJECTION 1 100ML.BAG IVPB STA (10:05)
[2020-07-23 12:19] LABS: Glucose,Whole Blood 123 mg/dL (75-99)
--- NOTE | 2020-07-23 12:22 | P.PN ---
Subjective Progress Note Date: 07/23/20 Principal diagnosis: Acute hypoxic respiratory failure second to COVId 19 pneumonia The patient is seen today 07/12/2020 in follow-up in the intensive care unit. He remains intubated, sedated on the mechanical ventilator at assist control mode of a rate of 36, tidal volume 450, FiO2 40% and a PEEP of 10. Morning blood gases reveal pO2 of 69, pCO2 41, pH 7.35. He remains sedated on propofol at 60 mcg/kg/m, fentanyl at 1 mcg/kg/h, norepinephrine at 0.09 mcg/kg//min, the patient is currently on 0.9 saline at rate of 50 mL an hour. The patient has been off Nimbex since yesterday. He is continued on Argatroban at 0.5 mcg/kg/m. Being nourished with Nepro at 15 ML's per hour. He did receive hemodialysis yesterday with 1 L removed. Chest x-ray reveals mild bibasilar infiltrates. Sputum cultures positive for beta-hemolytic strep, group C. White count 18.1. Hemoglobin 10.6. Platelet count 141. D-dimer 19.69. Sodium 133. Potassium 4.7. Creatinine 4.14. LDH 1067, C-reactive protein 24. Remains on antibiotics in the form of ceftriaxone. Bronchodilators. Vitamin supplements. Dexamethasone. 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 The platelet count is stable and the platelet count is up to 136. On 07/12/2020, the patient is being seen for follow-up. The patient is a 59-year-old obese male patient with a BMI of 36.2 with known history of obstructive sleep apnea, presented with COVID 19 related pneumonia patient is currently intubated on a mechanical ventilator. The patient has been on a mechanical ventilator since 07/05/2020. 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 During the course of his treatment, the patient developed an acute kidney injury secondary to ATN secondary to "with 19 infection. Urine output was improving and the patient's urine output was in order of 20-25 mL an hour. Due to persistent hyperkalemia and worsening renal function, the patient was started on hemodialysis on 07/10/2020. The potassium level improved post-hemodialysis. The patient also had significant metabolic acidosis and the patient was given bicarb infusion. Electrolytes are being monitored. The patient got dialyzed yesterday and this was his second hemodialysis. Nephrology is on the case. He is currently on Decadron 6 mg IV every 24 hours. His chest x-ray is showing patchy by the pulmonary infiltrates in lower lobes, slightly worsening in the chest x-ray findings on today's evaluation mainly in the peripheries and ET tube is in a good location. The patient remains on a mechanical ventilator assist control mode. He is on Nepro at 60 mL an hour. 07/13/2020, I'm seeing this patient for a follow-up. This is a case of a 59-year-old male patient with Covid 19 related pneumonia and acute kidney injury currently on hemodialysis. Worn-out, the patient is sedated and this morning the patient is currently on propofol running at 6 60 mcg/kg per minute and fentanyl is running at 1 mcg/kg/h and this is the same sedation it was being provided yesterday. The patient is on no paralytics for now. The patient is on a mechanical ventilator, on this morning's evaluation, he is on assist-control at the rate of 28 with a tidal volume of 450 and FiO2 of 50% and PEEP is 10. Blood gases from today showing a pH of 7.37 with a pCO2 of 47 and pO2 of 63. Chest x-ray from today is showing diffuse bilateral pulmonary infiltrates more so in the lower lobes bilaterally. ET tube is in a good location. Comparing this chest x-ray from yesterday, there is no major interval change in the findings are essentially stable. His peak airway pressures 28. His static pressures 24. The patient is is still on Decadron 6 mg IV every 24 hours. D- dimer today's at 13.3, his LDH level is at 1021 and the CRP is at 4.6. Note that his inflammatory markers essentially compatible to yesterday. His echoes at 13.7 with a hemoglobin of 9.2. Platelet count is 112. I took the patient off Agratoban and he was also placed on Eliquis at a dose of 5 mg by mouth twice a day. Noted the patient also is an acute kidney injury. The patient underwent dialysis and the spot he has taken 3 sessions of hemodialysis. He is producing urine output in the order of 20-30 mL an hour. His last session of hemodialysis was yesterday. In terms of his electrolytes, his BUN is at 80 with a creatinine of 3.5 and a sodium of 132 with a potassium of 4.4. He is currently on enteral feeding for dizziness support and is currently on Nepro at the rate of 50 mL an hour. He is currently off Rocephin. He is afebrile. He is requiring low-dose pressors were norepinephrine 30 dose of 0.03 mcg/kg per minute. Otherwise, no other significant events. He is afebrile. Sedation holiday was not done yesterday. IV fluids are running at 0.9 at the rate of 50 mL an hour. 07/14/2020, patient is being seen for follow-up. Sedated and still on a mechanical ventilator, probable resolving. 60 mcg/kg per minute and the patient is also on fentanyl at 1 mcg/kg/h. Adequately sedated. On a mechanical ventilator essentially vent settings being at tidal volume of 450 with an FiO2 of 50% and a PEEP of 10 and a rate of 28. These are essentially the same settings as yesterday. As far as blood gases, pO2 is at 79 with a pCO2 of 45 and a pH is at 7.35. He d-dimer is at 9.42 and the rest of the inflammatory markers show an LDH of 1062 which is stable compared to yesterday and a CRP of 87, slightly elevated compared to yesterday. His CPK is down to 231. His pro calcitonin level was at 0.58 and note that the patient has dialysis-dependent renal failure. As far as his creatinine, his creatinine today is at 3.97 with a mean of 96. He did not receive dialysis yesterday. His urine output is in order of 30-40 mL an hour and the fluid balance has been +1.1 L over the past 24 hours. His chest x-ray from today is showing lower lobe pulmonary infiltrates, essentially stable compared to yesterday. ET tube remains in excellent location. IV fluids are running at 20 cc an hour of normal saline. He is afebrile. He is tolerating his enteral feeding for nutritional support. Norepinephrine infusion which is running at 0.05 mcg/kg per minute. He remains on Decadron 6 mg IV every 24 , platelet count is stable at 121 and 11 avoiding heparin. Patient holiday yesterday was ultimately aborted as the patient became quite agitated after several hours without any meaningful neurological response. 07/15/2020, the patient is being seen for a follow-up. Sedated with propofol running at 60 mcg/kg per minute and fentanyl is at 1 mcg/kg/h and the level of sedation essentially the same as yesterday. Remains on a mechanical ventilator. He is an assist-control mode at the rate of 24 with a tidal volume of 450 and a PEEP of 8 with a FiO2 of 50%. He had a blood gas showing pH of 7.33 with a pCO2 of 46 and pO2 of 73. Chest x-ray is unchanged, probably slightly worse on the left in terms of that the patient is seeing on today's chest x-ray. ET tube remains in a good location. Inflammatory markers from today show a d-dimer of 9 with a LDH level of 1061 and a CRP of 78, comparable to yesterday. His pro calcitonin level was low. He got dialyzed yesterday. I attempted to wean down the PEEP to 6 and this was not successful and the patient desaturated in the P EEP was brought back up to 8 yesterday. Meanwhile, he is afebrile. He is producing urine output in the order of 20-30 mL an hour. He is on normal saline at the rate of 20 mL an hour. He remains on Decadron 6 mg IV to 24 hours. His platelet count is 132 which is essentially stable and improved compared to yesterday. In terms of pressors, the patient is currently on norepinephrine infusion at 0.04 mcg/kg per minute. I will today's condition essentially unchanged and his condition essentially the same as compared to yesterday 07/16/2020, remains on a mechanical ventilator on propofol at the rate of 60 mcg/kg per minute and fentanyl is at 2 mcg/kg/h. He remains off paralytics. At around 6:00 this morning, the patient had some oxygen desaturation. Based on that, I increased his FiO2 up to 60%. Currently is an assist-control mode rate of 28 with a tidal volume of 450 and a PEEP of 8 chest x-ray still showing diffuse bilateral pulmonary infiltrates left more than right. The blood gas shows a pH of 7.31 with a pCO2 of 45 and pO2 of 68. This was on FiO2 of 70%. Inflammatory markers show a d-dimer of 9.9 with a LDH level of 1103 and a CRP level of 62. The patient is on Decadron 6 mg IV every 24 hours. The patient is also on anticoagulation with Eliquis 2.5 mg by mouth twice a day. His platelet counts is 135. The chest x-ray findings are obviously worse and there is some worsening in the evaluation in the right lung compared to yesterday. Note that the patient did not get dialyzed yesterday. Today is a dialysis day for him. He is also on norepinephrine infusion running at 0.08 mcg/kg per minute. There is enough to maintain his blood pressure. He is receiving enteral feeding for discharge support and currently is on Nepro at a rate of 50 mL an hour which is currently at goal. No other significant events. Is adequately sedated for now. 07/17/2020, the patient is being seen for a follow-up. This morning he is on a combination of propofol and fentanyl running at 60 mics for propofol and 1 g for fentanyl. He was given a sedation holiday and she was able to tolerate initiated subsequently he decompensated and became hypoxic and he had to be placed back on sedation. Noted the patient became asynchronous. This morning, he is back on a mechanical ventilator mode at the rate of 28 with a tidal volume of 450 and her FiO2 is at 60% with a PEEP of 8. He underwent dialysis yesterday with a total of 2 liters of ultrafiltration. Note that he was able to tolerated dialysis without any major issues. He is on a minimal dose of norepinephrine infusion running at 0.06 mcg/kg per minute for blood pressure control. On today's evaluation, peak air pressures around 27. The blood gases from today shows a pH of 7.29 with a pCO2 of 40 and pO2 of 99 and this was on FiO2 of 60%. As mentioned, his PEEP is at 8. Chest x-ray still showing diffuse breath and pulmonary infiltrates unchanged without any major interval improvement or worsening. White cell count is at 50 with a hemoglobin of 8.2. Creatinine is at 3.4 and a urine output is in order of 30 mL an hour. No plans for hemodialysis today. He is receiving enteral feeding for nutritional support with Nepro at the rate of 50 mL an hour. He is stooling. Still sedation dependent. Unable to wean him off sedation because of a 6 and mean oxygen desaturations. I have approach the and the family with a possibility of ainsertion of a tracheostomy tube and a PEG tube for prolonged need of mechanical ventilation and failure for weaning. The patient has been intubated since 07/05/2020. The inflammatory markers from today shows an LDH level of 889, CRP is at 6 and the d-dimer is at 6.05. The patient has palpable pulses in his left upper extremity. She of his fingers are necrotic and the tip including the index, the platelet counts are stable and the patient is currently on Eliq uis 2.5 mg by mouth twice a day. Or 2020, the patient remains sedated with a combination of propofol and fentanyl running at 50 mcg/kg per minute for propofol and 1 mcg/kg per hour for fentanyl. He is sedated. In fact is deeply sedated. We are going to proceed with a sedation holiday on this patient today. He remains on a mechanical ventilator. He remains on a assist-control rate of 28, tidal volume of 450, FiO2 of 50% with a PEEP of 8. Attempts to wean the PEEP further failed and the patient became more hypoxic. As such, the patient is living At 8. This patient is a 7.26 with a pCO2 of 48 and pO2 of 71 today's blood gas. His chest x-ray showing stable bilateral pulmonary infiltrates essentially involving the lower lobes. ET tube is in a good location. Note that the patient is producing urine output in the order of 8200 mL an hour. His net fluid balance over the past 24 hours has been -83 mL. He has had a with a positive fluid balance for today. The findings on the case. The intent of the dialysis 3 times a week. His last dialysis was done on Sunday which is 2 days ago. His creatinine is up to 3.7 with a BUN of 84. Rest of the electrolytes are normal. Affect is running a lower sodium level of 1:30 with a potassium level of 4.1. Serum bicarbs at 20. In terms of his COVID-19 related pneumonia, the patient has a LDH level of 855, CRP level of 5.2 and his most recent d-dimer is at 5.4. He remains on steroids and he is on Decadron 6 mg IV every 24 hours. He did have a component of hit syndrome. This was related to heparin. He did receive Agratroban was ultimately discontinued once the patient's stated count picked up and it's platelet count is currently at 129. He does have necrotic fingers in his left upper extremity. Adequate pulses in the radial. No new vascular insults noted on today's examination. He is receiving enteral feeding for nutritional support and is currently on Nepro at the rate of 10 mL an hour. He is stooling. He is on Rocephin for strep in history of the blood cultures on 2 separate occasions. Otherwise, the blood cultures positive for coagulase-negative staph. Patient was reevaluated today on 07/19/2020, remains intubated and mechanically ventilated, he is off sedation and he is not showing any signs of neurological not responding to any stimuli. Patient is on assist control rate of 24th of volume 450 FiO2 50% and PEEP of 6. ABG showed a pO2 of 81 pCO2 41 pH of 7.31 patient is on enteral feeding. And he may undergo dialysis. We plan to have a tracheostomy and PEG tube placement in this patient, and he is basically a failure to wean. Today the sedation is placed on hold. Chest x-ray continues to show bilateral pulmonary infiltrates involving lower lobes. Endotracheal tube is in the proper position. Patient is making good urine, however his renal functioning seems to be getting worse. Electrolytes are normal. BUN is 91 creatinine 4.51 LDH is 893 liver enzymes are borderline elevated, C-reactive protein is 4.2 d-dimer 6.68. WBC count is 9.1 hemoglobin is 8.9 On 07/20/2020 patient seen in follow-up in intensive care unit, he was given daily traction of sedation yesterday, and his sedation was on hold for several hours and the patient never woke up over open his eyes or follow any commands, and as the day went on he started breathing fast, started desaturated and get agitated and was he was placed back on sedation on which she remains today, currently on Diprivan at 40 mics per kilo per minute, and fentanyl infusion at 1 mics per kilo per minute, and levo fed has been discontinued, he is on assist- control mode of ventilation with assist control rate of 24, tidal volumes of 4 50, FiO2 of 50% and PEEP of 6, this morning's blood gas shows pO2 of 92, pCO2 42, and pH is 7.32. He is in sinus mechanism, slightly tachycardic, his tube feedings are currently on hold in case of possibility of tracheostomy and PEG tube insertion however were still awaiting a response from his family on the decision in regards to proceeding with trach and PEG placement, today he is receiving hemodialysis treatment, and a 3 L in fluid was removed today. In terms of urine output he has been making urine in the order of 50-70 ML per hour, he remains on Lasix 80 mg twice daily, he remains on Rocephin for evidence of a beta-hemolytic strep in the sputum cultures, his follow-up sputum culture only showed Armida. History of resting comfortably in bed, he remains on IV dexamethasone 6 mg daily, has been off the levofed. Breasts labs have been reviewed, his white blood cell count is 8.1, hemoglobin is 8.1, his platelet count is 126, d-dimer is 13.3, sodium is 133, potassium 3.7, his renal function is relatively stable, with BUN of 82, and creatinine 4.51. These LDH is 792, CRP is 48. His had no acute events overnight, we spoke to his daughter yesterday in regards to patient's condition, and to discuss tracheostomy and PEG tube insertion, awaiting response from the family on their decision and the daughter indicated that patient had poor quality of life to start with and the were not sure if the workup and consent to the trach and PEG On 07/21/2000 patient seen in follow-up in the intensive care unit, yesterday he tolerated 11 hours of sedation holiday, and he was starting to follow simple commands, however is that day went on he was becoming more agitated and tachypneic, and he was placed back on sedation, currently on Diprivan at 40 mics per kilo per minute, and 0.9 at KVO, he remains intubated, on assist control mode of ventilation, with a rate of 24, Tylox 450, FiO2 of 50% and PEEP of 6, this morning's blood gases show pO2 133, pCO2 of 41, and pH is 7.38. Patient is resting comfortably, appears to be in no acute distress, he is not on any vasoactive drugs, no vasopressors, she is in sinus rhythm sinus tach with a rate of 90-106 BPM, hemodialysis treatment this morning, and attended have liters of fluid was taken off, his vital signs have been stable overnight, no fever or chills, lung sounds are diminished. She also remains on IV Lasix 80 mg twice da waylon, patient is producing urine in the order of 30-60 ML per hour, and she is in -4.1 L over the last 24 hours with additional -2.49 fluid balance since midnight last night. Chest x-ray shows interval improvement in bilateral airspace infiltrates particularly within the right upper lobe. Today's labs have been reviewed, showing white blood cell count 7.1, hemoglobin of 7.4, platelet count is 120, sodium is 130, potassium is 3.2, chloride is 104, CO2 of 23, BUN of 75 and creatinine of 4.01. Patient remains on Rocephin for beta-hemolytic strep in the sputum, repeat culture of the sputum showed only Armida. He is tolerating tube feedings which are on hold for tracheostomy and PEG tube placement which is scheduled for today. On 07/22/2020 patient seen in follow-up in intensive care unit, he remains sedated and trach to the ventilator, on assist-control mode of ventilation with a rate of 24, her lungs were 50, FiO2 50% and PEEP of 6, his blood gas shows pO2 of 169, pCO2 40, pH of 7.36, patient is currently on Diprivan at 55 mics per kilo per minute, he is on 0.9 normal saline at 10 ML per hour, Levophed that he is at 0.02 mics per kilo per minute. Patient is having hemodialysis treatment right now. Patient received tracheostomy and PEG tube yesterday. His hemodialysis access was switched to right subclavian approach. He still has a central line in his groin which will need to be switched to a PICC line. Today's chest x-ray showed bilateral multifocal and confluent opacities consistent with COVID-19 infection with no significant interval change. Vital signs have been stable, his sat 98% on the above mentioned settings, requiring small dose of Levafed. 2 feedings will be started sometime today, he is on Rocephin for evidence of 5 beta-hemolytic strep in the sputum, follow-up sputum culture only showed Armida albicans. She had no acute events overnight. He re leonila on Decadron 6 mg daily, he is Eliquis will be started tonight if it's okay with surgery. No other acute events overnight, and -2.4 L fluid balance over the last 24 hours. He does remains generally swollen. On 07/23/2020 patient seen in follow-up, in the intensive care unit, patient received tracheostomy and PEG tube insertion on 07/21/2020, he remains trached to the ventilator and is currently on assist control mode of ventilation with a rate of 24, tacrolimus 450, FiO2 45% and PEEP of 5, this morning's blood gas shows pO2 of 149, pCO2 of 43, and pH of 7.39, he was given a sedation holiday yesterday, however he did not wake up or start following commands, neurology completed a brain CT which showed decreased attenuation within the high right frontal lobe without cortical increased attenuation which could reflect petechial hemorrhage, patient is currently not on any anticoagulation, is Eliquis has been on hold since 07/19/2020 at 11:00 in the morning. His hemoglobin today 7.4, his platelet count is 115, his d-dimer is currently is 8.18 on this morning's labs. Patient is not on any aspirin, or Plavix or any other anticoagulants. Patient was resedated he is currently on 35 mics per kilo per minute of Diprivan, and 0.9 and is infusing at KVO, no other infusions. Hemodynamically he has remained stable, he is in sinus rhythm sinus tachycardia on the monitor, this morning his PEG tube became plugged when the crushed oral medications were being instilled through the PEG tube, surgery was notified, and the PEG tube was removed, NG tube will be inserted, however no tube feedings or oral medications are to be put down the NG tube at this point. Patient remains on Rocephin for evidence of beta-hemolytic strep in the sputum, yesterday his central line was discontinued and the tip was sent for culture and the culture is pending at this time, however overnight has been no fever, his vital signs have remained stable. He had hemodialysis on 07/21/2020 with removal of 2.5 L in fluids. Today's labs show sodium of 136, potassium 3.5, chloride is 104, CO2 is 22, BUN 54, and creatinine is 2.6, his renal profile is improving, and patient remains on IV Lasix 80 mg twice daily, he is producing urine in the order of 35-60 ML per hour. No other acute events overnight, neurology is following, and is to comment on the findings of the CT of the brain. Today's chest x-ray shows continued diffuse bilateral groundglass airspace disease/pulmonary edema, with continue small effusions with adjacent atelectasis. LDH is down to 640, and CRP is 5.6 Objective - Vital Signs Vital signs: Vital Signs Temp 98.4 F 07/23/20 08:00 Pulse 102 H 07/23/20 11:00 Resp 27 H 07/23/20 11:00 BP 130/81 07/23/20 11:00 Pulse Ox 99 07/23/20 11:00 Intake & Output 07/22/20 07/23/20 07/23/20 18:59 06:59 18:59 Intake Total 840.256 915.128 358.999 Output Total 905 830 240 Balance -64.744 85.128 118.999 Weight 119.2 kg 116.9 kg Intake: IV 156 123 100 0.9 Normal Saline 36 3 Pressure Bag 0.9 Normal Saline at KVO 120 120 50 cefTRIAXone 1 gm In 50 Sodium Chloride 0.9% 50 ml @ 100 mls/hr IVPB Q24HR [facility] Rx#:[id number] Intake, IV Titration 463.256 426.128 182.999 Amount Potassium Chloride 20 meq 100 In Water For Injection 1 100ml.bag @ 50 mls/hr IVPB ONCE [facility] Rx#: [id number] cefTRIAXone 1 gm In 50 Sodium Chloride 0.9% 50 ml @ 100 mls/hr IVPB Q24HR [facility] Rx#:[id number] propofoL 1,000 mg In 413.256 426.128 82.999 Empty Bag 1 bag @ Titrate IV .Q0M [facility] Rx#: [id number] Tube Feeding 161 276 46 Other 60 90 30 Output: Urine 905 830 240 Other: Voiding Method Indwelling Catheter Indwelling Catheter Indwelling Catheter ABP, PAP, CO, CI - Last Documented Arterial Blood Pressure 118/64 - Exam GENERAL EXAM: Sedated, morbidly obese 51-year-old white male, trached to the ventilator, on assist-control mode of ventilation with a 45% PEEP of 5, comfortable in no apparent distress. HEAD: Normocephalic/atraumatic. EYES: Normal reaction of pupils, equal size. Conjunctiva pink, sclera white. NOSE: Clear with pink turbinates. THROAT: No erythema or exudates. NECK: No masses, no JVD, no thyroid enlargement, no adenopathy. Midline tracheostomy connected to the ventilator CHEST: No chest wall deformity. Symmetrical expansion. Right subclavian permacath in place and patient is receiving hemodialysis LUNGS: Equal air entry with no crackles, wheeze, rhonchi or dullness. CVS: Regular rate and rhythm, normal S1 and S2, no gallops, no murmurs, no rubs ABDOMEN: Soft, nontender. No hepatosplenomegaly, normal bowel sounds, no guarding or rigidity. PEG tube in place EXTREMITIES: No clubbing, generalized edema no cyanosis, 2+ pulses and upper and lower extremities. Patient has black fingertips on his left hand MUSCULOSKELETAL: Muscle strength and tone normal. Right groin temporary hemodialysis catheter in place SPINE: No scoliosis or deformity SKIN: No rashes CENTRAL NERVOUS SYSTEM: Sedated, intubated. No focal deficits, tone is normal in all 4 extremities. - Labs CBC & Chem 7: 07/23/20 06:51 07/23/20 05:12 Labs: Abnormal Lab Results - Last 24 Hours (Table) 07/22/20 07/22/20 07/23/20 Range/Units 17:25 23:50 05:12 RBC (4.30-5.90) m/uL Hgb (13.0-17.5) gm/dL Hct (39.0-53.0) % RDW (11.5-15.5) % Plt Count (150-450) k/uL D-Dimer 8.18 H (<0.60) mg/L FEU ABG pO2 (83-108) mmHg ABG HCO3 (21-25) mmol/L ABG Total CO2 (19-24) mmol/L ABG O2 Saturation (94-97) % Sodium (137-145) mmol/L BUN (9-20) mg/dL Creatinine (0.66-1.25) mg/dL Glucose (74-99) mg/dL POC Glucose (mg/dL) 123 H 110 H (75-99) mg/dL Lactate Dehydrogenase (313-618) U/L C-Reactive Protein (<1.0) mg/dL Total Protein (6.3-8.2) g/dL Albumin (3.5-5.0) g/dL 07/23/20 07/23/20 07/23/20 Range/Units 05:12 05:28 06:51 RBC 2.49 L (4.30-5.90) m/uL Hgb 7.4 L (13.0-17.5) gm/dL Hct 22.9 L (39.0-53.0) % RDW 17.1 H (11.5-15.5) % Plt Count 115 L (150-450) k/uL D-Dimer (<0.60) mg/L FEU ABG pO2 149 H (83-108) mmHg ABG HCO3 26 H (21-25) mmol/L ABG Total CO2 27 H (19-24) mmol/L ABG O2 Saturation 99.6 H (94-97) % Sodium 136 L (137-145) mmol/L BUN 54 H (9-20) mg/dL Creatinine 2.66 H (0.66-1.25) mg/dL Glucose 102 H (74-99) mg/dL POC Glucose (mg/dL) (75-99) mg/dL Lactate Dehydrogenase 640 H (313-618) U/L C-Reactive Protein 5.6 H (<1.0) mg/dL Total Protein 4.9 L (6.3-8.2) g/dL Albumin 2.6 L (3.5-5.0) g/dL Microbiology - Last 24 Hours (Table) 07/22/20 14:45 Catheter Tip Culture - Preliminary Catheter Tip 07/22/20 14:45 Catheter Tip Culture - Preliminary Catheter Tip Assessment and Plan Plan: Assessment: #1. Acute hypoxic respiratory failure secondary to COVID-19 pneumonia. Patient received toci and convalescent plasma., Patient is status post tracheostomy and PEG tube placement on 07/21/2020 #2. Acute kidney injury requiring dialysis, improving #3. Altered mental status, related to toxic metabolic encephalopathy, severe, related to multiple organ dysfunction #4. Possible petechial hemorrhage within the right frontal lobe, seen on the CT of the brain, neurology is following #5. Severe metabolic acidosis, improved and resolved after dialysis. #6. Hyperkalemia secondary to above, improved with hemodialysis #7. Benign essential hypertension. #8. Superficial vein thromboses and left cephalic vein and left basilic vein #9. Heparin-induced thrombocytopenia, patient was on Argatroban and Eliquis which are on hold right now #10. History of obstructive sleep apnea syndrome #11. Morbid obesity #12. Increased d-dimer related to COVID-19, patient was started on Eliquis which will be restarted after his surgical procedures #13. Plugged PEG tube, the PEG tube was discontinued today at the bedside on 07/23/2020, we will insert NG tube, we'll hold oral feedings right now Plan: Drop FiO2 down to 35% keep PEEP at 5 CT of the brain results have been reviewed, and neurology is to comment on the findings Keep Eliquis on hold, keep oral meds on hold We'll continue Decadron Hold sedation, to assess mental status Continue current antibiotics NG tube will be inserted but no tube feedings were oral meds to be put down the NG tube at this time Keep nothing by mouth right now, we'll consider TPN administration tomorrow Continue Lasix follow up chest x-ray in follow-up labs tomorrow Will await further input from neurology Overall prognosis is poor I performed a history & physical examination of the patient and discussed their management with my nurse practitioner, Nelia Conley. I reviewed the nurse practitioner's note and agree with the documented findings and plan of care. Lung sounds are positive for diminished breath sounds The findings and the impression was discussed with the patient. I attest to the documentation by the nurse practitioner. Time with Patient: Greater than 30
--- NOTE | 2020-07-23 13:00 | P.PN ---
Subjective Progress Note Date: 07/23/20 CHIEF COMPLAINT: Shortness of breath HISTORY OF PRESENT ILLNESS: Patient currently in the ICU and on mechanical ventilation. He has been on the vent since 07/05/2020. He has acute hypoxic respiratory failure due to COVID-19 pneumonia. He also has HIT. Patient is status post tracheostomy and PEG tube placement. Patient's tube feedings were started yesterday. Unfortunately patient's PEG tube has become plugged. He'll be scheduled for replacement of PEG tube on Sunday. Afebrile. WBC 5.6 hemoglo bin 7.4 platelets 115 Patient had computed tomography scan of the brain that showed decreased attenu ation in the high right frontal lobe without cortical increased attenuation seen which could reflect petechial hemorrhage. Eliquis has been discontinued because of the possible petechial hemorrhage PHYSICAL EXAM: VITAL SIGNS: Reviewed. GENERAL: Well-developed in no acute distress. HEENT: No sclera icterus. Extraocular movements grossly intact. Moist buccal mucosa. Head is atraumatic, normocephalic. Tracheostomy site clean dry and intact ABDOMEN: Soft. Nondistended. Nontender. PEG tube site clean dry and intact NEUROLOGIC: Intubated and sedated ASSESSMENT: 1. Acute hypoxic respiratory failure secondary to acute COVID-19 pneumonia with prolonged mechanical ventilation. Status post tracheostomy placement 2. Severe Protein calorie malnutrition status post PEG tube placement 3. Acute kidney injury requiring hemodialysis 4. Left upper extremity DVT 5. Heparin-induced thrombocytopenia 6. Plugged PEG tube PLAN: -Patient scheduled for PEG tube replacement on 07/26/[address] orona -Continue ICU management -Continue supportive care Physician Credentialing Assistant note has been reviewed by physician. Signing provider agrees with the documented findings, assessment, and plan of care. Objective - Vital Signs Vital signs: Vital Signs Temp 98.4 F 07/23/20 08:00 Pulse 102 H 07/23/20 11:00 Resp 27 H 07/23/20 11:00 BP 130/81 07/23/20 11:00 Pulse Ox 99 07/23/20 11:00 Intake & Output 07/22/20 07/23/20 07/23/20 18:59 06:59 18:59 Intake Total 840.256 915.128 358.999 Output Total 905 830 240 Balance -64.744 85.128 118.999 Weight 119.2 kg 116.9 kg Intake: IV 156 123 100 0.9 Normal Saline 36 3 Pressure Bag 0.9 Normal Saline at KVO 120 120 50 cefTRIAXone 1 gm In 50 Sodium Chloride 0.9% 50 ml @ 100 mls/hr IVPB Q24HR [facility] Rx#:[id number] Intake, IV Titration 463.256 426.128 182.999 Amount Potassium Chloride 20 meq 100 In Water For Injection 1 100ml.bag @ 50 mls/hr IVPB ONCE [facility] Rx#: [id number] cefTRIAXone 1 gm In 50 Sodium Chloride 0.9% 50 ml @ 100 mls/hr IVPB Q24HR [facility] Rx#:[id number] propofoL 1,000 mg In 413.256 426.128 82.999 Empty Bag 1 bag @ Titrate IV .Q0M [facility] Rx#: [id number] Tube Feeding 161 276 46 Other 60 90 30 Output: Urine 905 830 240 Other: Voiding Method Indwelling Catheter Indwelling Catheter Indwelling Catheter ABP, PAP, CO, CI - Last Documented Arterial Blood Pressure 118/64 - Labs CBC & Chem 7: 07/23/20 06:51 07/23/20 05:12 Labs: Abnormal Lab Results - Last 24 Hours (Table) 07/22/20 07/22/20 07/23/20 Range/Units 17:25 23:50 05:12 RBC (4.30-5.90) m/uL Hgb (13.0-17.5) gm/dL Hct (39.0-53.0) % RDW (11.5-15.5) % Plt Count (150-450) k/uL D-Dimer 8.18 H (<0.60) mg/L FEU ABG pO2 (83-108) mmHg ABG HCO3 (21-25) mmol/L ABG Total CO2 (19-24) mmol/L ABG O2 Saturation (94-97) % Sodium (137-145) mmol/L BUN (9-20) mg/dL Creatinine (0.66-1.25) mg/dL Glucose (74-99) mg/dL POC Glucose (mg/dL) 123 H 110 H (75-99) mg/dL Lactate Dehydrogenase (313-618) U/L C-Reactive Protein (<1.0) mg/dL Total Protein (6.3-8.2) g/dL Albumin (3.5-5.0) g/dL 07/23/20 07/23/20 07/23/20 Range/Units 05:12 05:28 06:51 RBC 2.49 L (4.30-5.90) m/uL Hgb 7.4 L (13.0-17.5) gm/dL Hct 22.9 L (39.0-53.0) % RDW 17.1 H (11.5-15.5) % Plt Count 115 L (150-450) k/uL D-Dimer (<0.60) mg/L FEU ABG pO2 149 H (83-108) mmHg ABG HCO3 26 H (21-25) mmol/L ABG Total CO2 27 H (19-24) mmol/L ABG O2 Saturation 99.6 H (94-97) % Sodium 136 L (137-145) mmol/L BUN 54 H (9-20) mg/dL Creatinine 2.66 H (0.66-1.25) mg/dL Glucose 102 H (74-99) mg/dL POC Glucose (mg/dL) (75-99) mg/dL Lactate Dehydrogenase 640 H (313-618) U/L C-Reactive Protein 5.6 H (<1.0) mg/dL Total Protein 4.9 L (6.3-8.2) g/dL Albumin 2.6 L (3.5-5.0) g/dL 07/23/20 Range/Units 12:17 RBC (4.30-5.90) m/uL Hgb (13.0-17.5) gm/dL Hct (39.0-53.0) % RDW (11.5-15.5) % Plt Count (150-450) k/uL D-Dimer (<0.60) mg/L FEU ABG pO2 (83-108) mmHg ABG HCO3 (21-25) mmol/L ABG Total CO2 (19-24) mmol/L ABG O2 Saturation (94-97) % Sodium (137-145) mmol/L BUN (9-20) mg/dL Creatinine (0.66-1.25) mg/dL Glucose (74-99) mg/dL POC Glucose (mg/dL) 123 H (75-99) mg/dL Lactate Dehydrogenase (313-618) U/L C-Reactive Protein (<1.0) mg/dL Total Protein (6.3-8.2) g/dL Albumin (3.5-5.0) g/dL Microbiology - Last 24 Hours (Table) 07/22/20 14:45 Catheter Tip Culture - Preliminary Catheter Tip 07/22/20 14:45 Catheter Tip Culture - Preliminary Catheter Tip
[2020-07-23] MEDS: SODIUM CHLORIDE 0.9% 1,000 ML IV SCH (16:37)
[2020-07-23 16:44] LABS: Albumin 2.8 g/dL (3.5-5.0); Calcium 8.4 mg/dL (8.4-10.2); Magnesium 2.1 mg/dL (1.6-2.3); Phosphorus 7.2 mg/dL (2.5-4.5); Potassium 4.2 mmol/L (3.5-5.1); Total Bilirubin 1.2 mg/dL (0.2-1.3); Total Protein 5.2 g/dL (6.3-8.2)
[2020-07-23 16:52] LABS: Ionized Calcium 4.8 mg/dL (4.5-5.3)
--- NOTE | 2020-07-23 17:11 | XR ---
EXAMINATION TYPE: XR chest 1V portable DATE OF EXAM: 07/23/2020 Comparison: 07/23/2020 Clinical History: 59-year-old male NGT placement Findings: Tracheostomy cannula is present. NG tube courses below the diaphragm. Right-sided double-lumen cathet er tip in the right atrium. Left PICC tip not clearly seen beyond the lower SVC. Heart is mildly enla rged. Diffuse patchy opacities and interstitial changes persist. Aeration has minimally improved comp ared to prior exam. Impression: 1. NG tube courses below the diaphragm. 2. Continued diffuse interstitial changes and patchy airspace disease/pulmonary edema. Aeration has m inimally improved in the interval.
[2020-07-23 17:19] LABS: Glucose,Whole Blood 116 mg/dL (75-99)
[2020-07-23] MEDS ORDERED: MVI, ADULT NO.4 WITH VIT K 10 ML, TRACE (CONC-1ML/DOSE) 1 ML, PARENTERAL ELECTROLYTES 2... IV SCH ×4 (18:00)
--- NOTE | 2020-07-23 18:11 | PN ---
PROGRESS NOTE Patient is seen for followup for acute kidney injury. Patient was started on dialysis, as he was initially oliguric and had severe volume overload. Volume status has improved. Patient currently has had close to 12 L of ultrafiltration since 07/11/2020. Currently patient's FiO2 is down to 45%. His urine output is at 50 to 40 mL/hour. He is maintained on IV Lasix and serum potassium is not elevated. Serum creatinine was at 2.6 mg/dL today. Patient was dialyzed yesterday on 07/22/2020. There are no new changes since yesterday. Patient is tolerating tube feeds. He is status post trach and PEG. It appears that his PEG tube is obstructed with medications, and he will need a new one, which will be placed, I believe, on Sunday. On examination, patient is sedated. Case is discussed with nursing staff. He is maintained on the vent. Blood pressure was 137/95, heart rate 119 per minute. Lower extremity edema has improved. Labs show sodium 136, potassium 3.5, BUN 54, creatinine 2.6, hemoglobin 7.4 g/dL. ASSESSMENT: 1. Acute kidney injury, acute tubular necrosis, associated with hypotension, underlying COVID infection, started on dialysis, initially for hyperkalemia and metabolic acidosis. I will hold off on dialysis today and we will reassess on a daily basis for now. 2. COVID-19 pneumonia, currently on the vent. 3. Hyperkalemia, hyperphosphatemia, on initial admission, currently improved. 4. Volume overload, also improved. PLAN: Check phosphorus level. Hold dialysis. Monitor electrolytes. Repeat labs in a.m. Discontinue PhosLo. MMODL / IJN: [id number] /
[2020-07-23 23:33] LABS: Glucose,Whole Blood 122 mg/dL (75-99)
--- NOTE | 2020-07-23 23:34 | P.PN ---
Subjective Progress Note Date: 07/23/20 Patient was seen for a follow-up. Patient has been off sedation since 10 AM. Patient not showing any significant clinical improvement. Please refer to examination below. Per other nurse, patient was showing some response with moving his hands, but did not appear on my examination. Objective - Vital Signs Vital signs: Vital Signs Temp 98.9 F 07/23/20 20:00 Pulse 105 H 07/23/20 20:00 Resp 24 07/23/20 20:00 BP 137/105 07/23/20 20:00 Pulse Ox 97 07/23/20 20:00 Intake & Output 07/23/20 07/23/20 07/24/20 06:59 18:59 06:59 Intake Total 915.128 428.999 50 Output Total 830 755 150 Balance 85.128 -326.001 -100 Weight 116.9 kg 116.9 kg Intake: IV 123 170 50 0.9 Normal Saline 3 Pressure Bag 0.9 Normal Saline at KVO 120 120 20 Mvi, Adult No.4 with Vit 30 K 10 ml Trace (Conc-1Ml/ Dose) 1 ml Parenteral Electrolytes 20 ml In Amino Acid 5%-D15w 1,000 ml @ 30 mls/hr IV .Q24H [facility] Rx#:[id number] cefTRIAXone 1 gm In 50 Sodium Chloride 0.9% 50 ml @ 100 mls/hr IVPB Q24HR [facility] Rx#:[id number] Intake, IV Titration 426.128 182.999 Amount Potassium Chloride 20 meq 100 In Water For Injection 1 100ml.bag @ 50 mls/hr IVPB ONCE [facility] Rx#: [id number] propofoL 1,000 mg In 426.128 82.999 Empty Bag 1 bag @ Titrate IV .Q0M [facility] Rx#: [id number] Tube Feeding 276 46 0 Other 90 30 Output: Urine 830 755 150 Other: Voiding Method Indwelling Catheter Indwelling Catheter Indwelling Catheter ABP, PAP, CO, CI - Last Documented Arterial Blood Pressure 118/64 - Exam On examination patient is a middle aged male, appears very obtunded, semi-comatose, does not follow command. He is off sedation since 10 AM. Patient has equal, round and reacting pupils. Patient is apparently legally blind. Oculocephalics are present. Corneals are present. Patient does breathe over the ventilator. He has cough and gag. Patient has no obvious seizure activity. Tone is decreased, particularly in the hands. Patient has demarcation of the fingertips of the left hand from ischemia. It is evolving. Reflexes are absent, plantars are flat. Patient slightly grimaced on nailbed pressure on the right, but less response on the left. Patient did open some eyes, at times appear to move it sideway towards the caller, but not consistent. Patient has moderate peripheral edema. Abdomen is soft. - Labs CBC & Chem 7: 07/23/20 06:51 07/23/20 16:12 Labs: Abnormal Lab Results - Last 24 Hours (Table) 07/22/20 07/23/20 07/23/20 Range/Units 23:50 05:12 05:12 RBC (4.30-5.90) m/uL Hgb (13.0-17.5) gm/dL Hct (39.0-53.0) % RDW (11.5-15.5) % Plt Count (150-450) k/uL D-Dimer 8.18 H (<0.60) mg/L FEU ABG pO2 (83-108) mmHg ABG HCO3 (21-25) mmol/L ABG Total CO2 (19-24) mmol/L ABG O2 Saturation (94-97) % Sodium 136 L (137-145) mmol/L BUN 54 H (9-20) mg/dL Creatinine 2.66 H (0.66-1.25) mg/dL Glucose 102 H (74-99) mg/dL POC Glucose (mg/dL) 110 H (75-99) mg/dL Phosphorus (2.5-4.5) mg/dL Lactate Dehydrogenase 640 H (313-618) U/L C-Reactive Protein 5.6 H (<1.0) mg/dL Total Protein 4.9 L (6.3-8.2) g/dL Albumin 2.6 L (3.5-5.0) g/dL Triglycerides (<150) mg/dL 07/23/20 07/23/20 07/23/20 Range/Units 05:28 06:51 12:17 RBC 2.49 L (4.30-5.90) m/uL Hgb 7.4 L (13.0-17.5) gm/dL Hct 22.9 L (39.0-53.0) % RDW 17.1 H (11.5-15.5) % Plt Count 115 L (150-450) k/uL D-Dimer (<0.60) mg/L FEU ABG pO2 149 H (83-108) mmHg ABG HCO3 26 H (21-25) mmol/L ABG Total CO2 27 H (19-24) mmol/L ABG O2 Saturation 99.6 H (94-97) % Sodium (137-145) mmol/L BUN (9-20) mg/dL Creatinine (0.66-1.25) mg/dL Glucose (74-99) mg/dL POC Glucose (mg/dL) 123 H (75-99) mg/dL Phosphorus (2.5-4.5) mg/dL Lactate Dehydrogenase (313-618) U/L C-Reactive Protein (<1.0) mg/dL Total Protein (6.3-8.2) g/dL Albumin (3.5-5.0) g/dL Triglycerides (<150) mg/dL 07/23/20 07/23/20 Range/Units 16:12 17:18 RBC (4.30-5.90) m/uL Hgb (13.0-17.5) gm/dL Hct (39.0-53.0) % RDW (11.5-15.5) % Plt Count (150-450) k/uL D-Dimer (<0.60) mg/L FEU ABG pO2 (83-108) mmHg ABG HCO3 (21-25) mmol/L ABG Total CO2 (19-24) mmol/L ABG O2 Saturation (94-97) % Sodium 134 L (137-145) mmol/L BUN 62 H (9-20) mg/dL Creatinine 3.06 H (0.66-1.25) mg/dL Glucose 109 H (74-99) mg/dL POC Glucose (mg/dL) 116 H (75-99) mg/dL Phosphorus 7.2 H (2.5-4.5) mg/dL Lactate Dehydrogenase (313-618) U/L C-Reactive Protein (<1.0) mg/dL Total Protein 5.2 L (6.3-8.2) g/dL Albumin 2.8 L (3.5-5.0) g/dL Triglycerides 374 H (<150) mg/dL Microbiology - Last 24 Hours (Table) 07/22/20 14:45 Catheter Tip Culture - Preliminary Catheter Tip 07/22/20 14:45 Catheter Tip Culture - Preliminary Catheter Tip Assessment and Plan Assessment: * Toxic metabolic encephalopathy, severe in degree. Reasons multifactorial as mentioned. * Acute ischemic stroke small, right frontal region with mild petechial hemorrhage in the cortical ribbon. * Acute kidney injury requiring hemodialysis. * Acute hypoxic respiratory failure from COVID-19 related pneumonia, getting worse. * Left hand ischemia * Anemia * Hypertension * Morbid obesity * Obstructive sleep apnea * Superficial venous thrombosis Plan: * Patient has severe toxic metabolic encephalopathy due to secondary effect of multiorgan dysfunction including acute renal failure, respiratory failure due to severe bilateral pneumonia, acute COVID-19 infection. 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 * EEG 07/20/2020 also revealed severe degree of background slowing consistent with encephalopathy. No epileptiform activity seen. * Check computed tomography scan of the head to rule out any intracranial process. * Prognosis is mainly dependent upon underlying medical/metabolic/infectious conditions, which I would defer to critical care/IM. * CT head revealed decreased attenuation within the high right frontal lobe suggestive of small stroke, with increased attenuation in the associated cortical ribbon, suggestive of possible petechial hemorrhage. * Patient has been on Apixaban, which was discontinued on 07/19/2020 for anticipation for tracheostomy. * Will repeat CT head in the morning to follow-up on the CVA with small petechial hemorrhage.
[2020-07-24] MEDS: NOREPINEPHRINE 8 MG in SODIUM CHLORIDE 0.9% 250 ML IV SCH ×2 (00:19→23:54)
--- NOTE | 2020-07-24 01:22 | CT ---
EXAM: CT Head Without Intravenous Contrast CLINICAL HISTORY: Intracranial hemorrhage, follow-up. TECHNIQUE: Axial computed tomography images of the head/brain without intravenous contrast. CTDI is 49.27 mGy and DLP is 1094.4 mGy-cm. This CT exam was performed using one or more of the following dose reduction techniques: automated exposure control, adjustment of the mA and/or kV according to patient size, and/or use of iterative reconstruction technique. COMPARISON: 07/22/2020. FINDINGS: Brain: Small vessel disease of aging. Abnormal hypodensity in area of subarachnoid hemorrhage in the posterior lateral aspect of the right frontal lobe is again noted, unchanged. No abnormal extra-axial collection. Midline shift: Midline anatomy is unremarkable. Ventricles: There is prominence of the ventricular system, cortical sulci, basilar cisterns, compatible with age related atrophy. Bones/joints: Calvarium is within normal limits. No acute fracture. Soft tissues: Unremarkable. Sinuses: Mild to moderate chronic ethmoid and sphenoid sinusitis. Visualized maxillary sinuses are unremarkable. Mastoid air cells: Opacification of the majority of the mastoid air cells. IMPRESSION: 1. Previously noted area of subarachnoid hemorrhage associated with abnormal hypodensity posterior laterally in the right frontal lobe is again noted, not significantly changed. 2. Age-related changes.
[2020-07-24] MEDS ORDERED: ASPIRIN 300 MG SUPP RECTAL STA (01:28)
[2020-07-24 05:01] LABS: ABG Base Excess 0.8 mmol/L; ABG HCO3 25 mmol/L (21-25); ABG Oxygen Saturation 99.6 % (94-97); ABG PCO2 40 mmHg (35-45); ABG PH 7.41 (7.35-7.45); ABG PO2 157 mmHg (83-108); ABG TCO2 27 mmol/L (19-24); Allen Test Performed? Yes
[2020-07-24] MEDS: INSULIN ASPART (NovoLOG) 100 UNIT/ML VIAL SQ SCH ×4 (05:55→23:53)
[2020-07-24 05:56] LABS: Glucose,Whole Blood 121 mg/dL (75-99)
[2020-07-24 06:02] LABS: Anisocytosis Slight; HCT 21.5 % (39.0-53.0); HGB 7.4 gm/dL (13.0-17.5); MCH 31.2 pg (25.0-35.0); MCHC 34.6 g/dL (31.0-37.0); MCV 90.2 fL (80.0-100.0); Mean Platelet Volume 8.2; Platelet Count 116 k/uL (150-450); RBC 2.38 m/uL (4.30-5.90); RDW 16.5 % (11.5-15.5); WBC 4.1 k/uL (3.8-10.6)
[2020-07-24 06:17] LABS: Albumin 2.8 g/dL (3.5-5.0); Calcium 8.5 mg/dL (8.4-10.2); Magnesium 2.1 mg/dL (1.6-2.3); Phosphorus 7.2 mg/dL (2.5-4.5); Potassium 3.6 mmol/L (3.5-5.1); Total Bilirubin 1.5 mg/dL (0.2-1.3); Total Protein 5.2 g/dL (6.3-8.2)
[2020-07-24] MEDS ORDERED: Potassium Replacement Protocol 1 EACH MISC MISCELLANE PRN (06:52)
[2020-07-24] MEDS: POTASSIUM CHLORIDE 10 MEQ in WATER FOR INJECTION 1 100ML.BAG IVPB SCH ×2 (06:55→09:54)
--- NOTE | 2020-07-24 07:14 | XR ---
EXAMINATION TYPE: XR chest 1V portable DATE OF EXAM: 07/24/2020 COMPARISON: Chest x-ray 07/23/2020 HISTORY: Tracheostomy tube, abnormal chest x-ray TECHNIQUE: Single frontal view of the chest is obtained. FINDINGS: Tracheostomy tube, right jugular dialysis catheter, orogastric tube, left-sided PICC line are overlying appropriate positions. Pleural parenchymal changes are similar to prior exam. Additiona l sizable pneumothorax or pleural effusion. Cardiac mediastinal silhouette is unchanged accounting fo r differences in technique. IMPRESSION: Correlate for pneumonia, edema, ARDS.
[2020-07-24] MEDS: ALBUTEROL HFA INHALER INHALATION SCH ×3 (07:21→20:52)
[2020-07-24 08:02] LABS: C Reactive Protein 6.3 mg/dL (<1.0)
--- NOTE | 2020-07-24 08:41 | US ---
EXAMINATION TYPE: US carotid duplex BILAT DATE OF EXAM: 07/24/2020 COMPARISON: NONE CLINICAL HISTORY: CVA. CVA EXAM MEASUREMENTS: RIGHT: Peak Systolic Velocity (PSV) cm/sec ----- Right CCA: 58.2 ----- Right ICA: 70.3 ----- Right ECA: 90.1 ICA/CCA ratio: 1.2 RIGHT: End Diastole cm/sec ----- Right CCA: 15.3 ----- Right ICA: 26.3 ----- Right ECA: 18.6 LEFT: Peak Systolic Velocity (PSV) cm/sec ----- Left CCA: 92.9 ----- Left ICA: 72.4 ----- Left ECA: 95.6 ICA/CCA ratio: 0.8 LEFT: End Diastole cm/sec ----- Left CCA: 24.6 ----- Left ICA: 35.1 ----- Left ECA: 11.5 VERTEBRALS (direction of flow): Right Vertebral: unable to visualize Left Vertebral: Antegrade Rhythm: Normal Grayscale, color Doppler, spectral Doppler imaging performed of the carotid arteries. Waveform analys is does not show significant stenosis of the proximal internal carotid arteries. Technical limitati ons, intubated ICU patient with head tilted to the right. exam started with the left side. mild plaqu e bilateral bifurcations. No evidence of stenosis as visualized IMPRESSION: No hemodynamic significant stenosis of the proximal internal carotid arteries by Doppler criteria, an indirect measurement of carotid stenosis Criteria for Assigning % of Stenosis / Diameter reduction (Estimation based on the indirect measurements of the internal carotid artery velocities (ICA PSV). 1. Normal (no stenosis)=ICA PSV < 125 cm/s: ratio < 2.0: ICA EDV<40 cm/s. 2. Less than 50% stenosis=ICA PSV < 125 cm/s: ratio < 2.0: ICA EDV<40 cm/s. 3. 50 to 69% stenosis=ICA PSV of 125 to 230 cm/s: ration 2.0 ? 4.0: ICA EDV 40-100 cm/s. 4. Greater than 70% stenosis to near occlusion= ICA PSV > 230 cm/s: ratio > 4.0: ICA EDV > 100 cm/s. 5. Near occlusion= ICA PSV velocities may be low or undetectable: variable ratio and ICA EDV. 6. Total occlusion=unable to detect flow.
[2020-07-24] MEDS: ASPIRIN 300 MG SUPP RECTAL SCH (08:53)
[2020-07-24] MEDS: DEXAMETHASONE SOD PHOSPHATE 10 MG/ML 1 ML VIAL IV SCH (08:53)
[2020-07-24] MEDS: FUROSEMIDE 10 MG/ML 10 ML VIAL IV SCH ×2 (08:53→21:28)
[2020-07-24] MEDS: PANTOPRAZOLE 40 MG/10 ML VIAL IVP SCH ×2 (08:53→21:28)
--- NOTE | 2020-07-24 09:59 | P.PN ---
Subjective Progress Note Date: 07/24/20 Principal diagnosis: Acute hypoxic respiratory failure second to COVId 19 pneumonia The patient is seen today 07/12/2020 in follow-up in the intensive care unit. He remains intubated, sedated on the mechanical ventilator at assist control mode of a rate of 36, tidal volume 450, FiO2 40% and a PEEP of 10. Morning blood gases reveal pO2 of 69, pCO2 41, pH 7.35. He remains sedated on propofol at 60 mcg/kg/m, fentanyl at 1 mcg/kg/h, norepinephrine at 0.09 mcg/kg//min, the patient is currently on 0.9 saline at rate of 50 mL an hour. The patient has been off Nimbex since yesterday. He is continued on Argatroban at 0.5 mcg/kg/m. Being nourished with Nepro at 15 ML's per hour. He did receive hemodialysis yesterday with 1 L removed. Chest x-ray reveals mild bibasilar infiltrates. Sputum cultures positive for beta-hemolytic strep, group C. White count 18.1. Hemoglobin 10.6. Platelet count 141. D-dimer 19.69. Sodium 133. Potassium 4.7. Creatinine 4.14. LDH 1067, C-reactive protein 24. Remains on antibiotics in the form of ceftriaxone. Bronchodilators. Vitamin supplements. Dexamethasone. 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 The platelet count is stable and the platelet count is up to 136. On 07/12/2020, the patient is being seen for follow-up. The patient is a 59-year-old obese male patient with a BMI of 36.2 with known history of obstructive sleep apnea, presented with COVID 19 related pneumonia patient is currently intubated on a mechanical ventilator. The patient has been on a mechanical ventilator since 07/05/2020. 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 During the course of his treatment, the patient developed an acute kidney injury secondary to ATN secondary to "with 19 infection. Urine output was improving and the patient's urine output was in order of 20-25 mL an hour. Due to persistent hyperkalemia and worsening renal function, the patient was started on hemodialysis on 07/10/2020. The potassium level improved post-hemodialysis. The patient also had significant metabolic acidosis and the patient was given bicarb infusion. Electrolytes are being monitored. The patient got dialyzed yesterday and this was his second hemodialysis. Nephrology is on the case. He is currently on Decadron 6 mg IV every 24 hours. His chest x-ray is showing patchy by the pulmonary infiltrates in lower lobes, slightly worsening in the chest x-ray findings on today's evaluation mainly in the peripheries and ET tube is in a good location. The patient remains on a mechanical ventilator assist control mode. He is on Nepro at 60 mL an hour. 07/13/2020, I'm seeing this patient for a follow-up. This is a case of a 59-year-old male patient with Covid 19 related pneumonia and acute kidney injury currently on hemodialysis. Worn-out, the patient is sedated and this morning the patient is currently on propofol running at 6 60 mcg/kg per minute and fentanyl is running at 1 mcg/kg/h and this is the same sedation it was being provided yesterday. The patient is on no paralytics for now. The patient is on a mechanical ventilator, on this morning's evaluation, he is on assist-control at the rate of 28 with a tidal volume of 450 and FiO2 of 50% and PEEP is 10. Blood gases from today showing a pH of 7.37 with a pCO2 of 47 and pO2 of 63. Chest x-ray from today is showing diffuse bilateral pulmonary infiltrates more so in the lower lobes bilaterally. ET tube is in a good location. Comparing this chest x-ray from yesterday, there is no major interval change in the findings are essentially stable. His peak airway pressures 28. His static pressures 24. The patient is is still on Decadron 6 mg IV every 24 hours. D- dimer today's at 13.3, his LDH level is at 1021 and the CRP is at 4.6. Note that his inflammatory markers essentially compatible to yesterday. His echoes at 13.7 with a hemoglobin of 9.2. Platelet count is 112. I took the patient off Agratoban and he was also placed on Eliquis at a dose of 5 mg by mouth twice a day. Noted the patient also is an acute kidney injury. The patient underwent dialysis and the spot he has taken 3 sessions of hemodialysis. He is producing urine output in the order of 20-30 mL an hour. His last session of hemodialysis was yesterday. In terms of his electrolytes, his BUN is at 80 with a creatinine of 3.5 and a sodium of 132 with a potassium of 4.4. He is currently on enteral feeding for dizziness support and is currently on Nepro at the rate of 50 mL an hour. He is currently off Rocephin. He is afebrile. He is requiring low-dose pressors were norepinephrine 30 dose of 0.03 mcg/kg per minute. Otherwise, no other significant events. He is afebrile. Sedation holiday was not done yesterday. IV fluids are running at 0.9 at the rate of 50 mL an hour. 07/14/2020, patient is being seen for follow-up. Sedated and still on a mechanical ventilator, probable resolving. 60 mcg/kg per minute and the patient is also on fentanyl at 1 mcg/kg/h. Adequately sedated. On a mechanical ventilator essentially vent settings being at tidal volume of 450 with an FiO2 of 50% and a PEEP of 10 and a rate of 28. These are essentially the same settings as yesterday. As far as blood gases, pO2 is at 79 with a pCO2 of 45 and a pH is at 7.35. He d-dimer is at 9.42 and the rest of the inflammatory markers show an LDH of 1062 which is stable compared to yesterday and a CRP of 87, slightly elevated compared to yesterday. His CPK is down to 231. His pro calcitonin level was at 0.58 and note that the patient has dialysis-dependent renal failure. As far as his creatinine, his creatinine today is at 3.97 with a mean of 96. He did not receive dialysis yesterday. His urine output is in order of 30-40 mL an hour and the fluid balance has been +1.1 L over the past 24 hours. His chest x-ray from today is showing lower lobe pulmonary infiltrates, essentially stable compared to yesterday. ET tube remains in excellent location. IV fluids are running at 20 cc an hour of normal saline. He is afebrile. He is tolerating his enteral feeding for nutritional support. Norepinephrine infusion which is running at 0.05 mcg/kg per minute. He remains on Decadron 6 mg IV every 24 , platelet count is stable at 121 and 11 avoiding heparin. Patient holiday yesterday was ultimately aborted as the patient became quite agitated after several hours without any meaningful neurological response. 07/15/2020, the patient is being seen for a follow-up. Sedated with propofol running at 60 mcg/kg per minute and fentanyl is at 1 mcg/kg/h and the level of sedation essentially the same as yesterday. Remains on a mechanical ventilator. He is an assist-control mode at the rate of 24 with a tidal volume of 450 and a PEEP of 8 with a FiO2 of 50%. He had a blood gas showing pH of 7.33 with a pCO2 of 46 and pO2 of 73. Chest x-ray is unchanged, probably slightly worse on the left in terms of that the patient is seeing on today's chest x-ray. ET tube remains in a good location. Inflammatory markers from today show a d-dimer of 9 with a LDH level of 1061 and a CRP of 78, comparable to yesterday. His pro calcitonin level was low. He got dialyzed yesterday. I attempted to wean down the PEEP to 6 and this was not successful and the patient desaturated in the P EEP was brought back up to 8 yesterday. Meanwhile, he is afebrile. He is producing urine output in the order of 20-30 mL an hour. He is on normal saline at the rate of 20 mL an hour. He remains on Decadron 6 mg IV to 24 hours. His platelet count is 132 which is essentially stable and improved compared to yesterday. In terms of pressors, the patient is currently on norepinephrine infusion at 0.04 mcg/kg per minute. I will today's condition essentially unchanged and his condition essentially the same as compared to yesterday 07/16/2020, remains on a mechanical ventilator on propofol at the rate of 60 mcg/kg per minute and fentanyl is at 2 mcg/kg/h. He remains off paralytics. At around 6:00 this morning, the patient had some oxygen desaturation. Based on that, I increased his FiO2 up to 60%. Currently is an assist-control mode rate of 28 with a tidal volume of 450 and a PEEP of 8 chest x-ray still showing diffuse bilateral pulmonary infiltrates left more than right. The blood gas shows a pH of 7.31 with a pCO2 of 45 and pO2 of 68. This was on FiO2 of 70%. Inflammatory markers show a d-dimer of 9.9 with a LDH level of 1103 and a CRP level of 62. The patient is on Decadron 6 mg IV every 24 hours. The patient is also on anticoagulation with Eliquis 2.5 mg by mouth twice a day. His platelet counts is 135. The chest x-ray findings are obviously worse and there is some worsening in the evaluation in the right lung compared to yesterday. Note that the patient did not get dialyzed yesterday. Today is a dialysis day for him. He is also on norepinephrine infusion running at 0.08 mcg/kg per minute. There is enough to maintain his blood pressure. He is receiving enteral feeding for discharge support and currently is on Nepro at a rate of 50 mL an hour which is currently at goal. No other significant events. Is adequately sedated for now. 07/17/2020, the patient is being seen for a follow-up. This morning he is on a combination of propofol and fentanyl running at 60 mics for propofol and 1 g for fentanyl. He was given a sedation holiday and she was able to tolerate initiated subsequently he decompensated and became hypoxic and he had to be placed back on sedation. Noted the patient became asynchronous. This morning, he is back on a mechanical ventilator mode at the rate of 28 with a tidal volume of 450 and her FiO2 is at 60% with a PEEP of 8. He underwent dialysis yesterday with a total of 2 liters of ultrafiltration. Note that he was able to tolerated dialysis without any major issues. He is on a minimal dose of norepinephrine infusion running at 0.06 mcg/kg per minute for blood pressure control. On today's evaluation, peak air pressures around 27. The blood gases from today shows a pH of 7.29 with a pCO2 of 40 and pO2 of 99 and this was on FiO2 of 60%. As mentioned, his PEEP is at 8. Chest x-ray still showing diffuse breath and pulmonary infiltrates unchanged without any major interval improvement or worsening. White cell count is at 50 with a hemoglobin of 8.2. Creatinine is at 3.4 and a urine output is in order of 30 mL an hour. No plans for hemodialysis today. He is receiving enteral feeding for nutritional support with Nepro at the rate of 50 mL an hour. He is stooling. Still sedation dependent. Unable to wean him off sedation because of a 6 and mean oxygen desaturations. I have approach the and the family with a possibility of ainsertion of a tracheostomy tube and a PEG tube for prolonged need of mechanical ventilation and failure for weaning. The patient has been intubated since 07/05/2020. The inflammatory markers from today shows an LDH level of 889, CRP is at 6 and the d-dimer is at 6.05. The patient has palpable pulses in his left upper extremity. She of his fingers are necrotic and the tip including the index, the platelet counts are stable and the patient is currently on Eliq uis 2.5 mg by mouth twice a day. Or 2020, the patient remains sedated with a combination of propofol and fentanyl running at 50 mcg/kg per minute for propofol and 1 mcg/kg per hour for fentanyl. He is sedated. In fact is deeply sedated. We are going to proceed with a sedation holiday on this patient today. He remains on a mechanical ventilator. He remains on a assist-control rate of 28, tidal volume of 450, FiO2 of 50% with a PEEP of 8. Attempts to wean the PEEP further failed and the patient became more hypoxic. As such, the patient is living At 8. This patient is a 7.26 with a pCO2 of 48 and pO2 of 71 today's blood gas. His chest x-ray showing stable bilateral pulmonary infiltrates essentially involving the lower lobes. ET tube is in a good location. Note that the patient is producing urine output in the order of 8200 mL an hour. His net fluid balance over the past 24 hours has been -83 mL. He has had a with a positive fluid balance for today. The findings on the case. The intent of the dialysis 3 times a week. His last dialysis was done on Sunday which is 2 days ago. His creatinine is up to 3.7 with a BUN of 84. Rest of the electrolytes are normal. Affect is running a lower sodium level of 1:30 with a potassium level of 4.1. Serum bicarbs at 20. In terms of his COVID-19 related pneumonia, the patient has a LDH level of 855, CRP level of 5.2 and his most recent d-dimer is at 5.4. He remains on steroids and he is on Decadron 6 mg IV every 24 hours. He did have a component of hit syndrome. This was related to heparin. He did receive Agratroban was ultimately discontinued once the patient's stated count picked up and it's platelet count is currently at 129. He does have necrotic fingers in his left upper extremity. Adequate pulses in the radial. No new vascular insults noted on today's examination. He is receiving enteral feeding for nutritional support and is currently on Nepro at the rate of 10 mL an hour. He is stooling. He is on Rocephin for strep in history of the blood cultures on 2 separate occasions. Otherwise, the blood cultures positive for coagulase-negative staph. Patient was reevaluated today on 07/19/2020, remains intubated and mechanically ventilated, he is off sedation and he is not showing any signs of neurological not responding to any stimuli. Patient is on assist control rate of 24th of volume 450 FiO2 50% and PEEP of 6. ABG showed a pO2 of 81 pCO2 41 pH of 7.31 patient is on enteral feeding. And he may undergo dialysis. We plan to have a tracheostomy and PEG tube placement in this patient, and he is basically a failure to wean. Today the sedation is placed on hold. Chest x-ray continues to show bilateral pulmonary infiltrates involving lower lobes. Endotracheal tube is in the proper position. Patient is making good urine, however his renal functioning seems to be getting worse. Electrolytes are normal. BUN is 91 creatinine 4.51 LDH is 893 liver enzymes are borderline elevated, C-reactive protein is 4.2 d-dimer 6.68. WBC count is 9.1 hemoglobin is 8.9 On 07/20/2020 patient seen in follow-up in intensive care unit, he was given daily traction of sedation yesterday, and his sedation was on hold for several hours and the patient never woke up over open his eyes or follow any commands, and as the day went on he started breathing fast, started desaturated and get agitated and was he was placed back on sedation on which she remains today, currently on Diprivan at 40 mics per kilo per minute, and fentanyl infusion at 1 mics per kilo per minute, and levo fed has been discontinued, he is on assist- control mode of ventilation with assist control rate of 24, tidal volumes of 4 50, FiO2 of 50% and PEEP of 6, this morning's blood gas shows pO2 of 92, pCO2 42, and pH is 7.32. He is in sinus mechanism, slightly tachycardic, his tube feedings are currently on hold in case of possibility of tracheostomy and PEG tube insertion however were still awaiting a response from his family on the decision in regards to proceeding with trach and PEG placement, today he is receiving hemodialysis treatment, and a 3 L in fluid was removed today. In terms of urine output he has been making urine in the order of 50-70 ML per hour, he remains on Lasix 80 mg twice daily, he remains on Rocephin for evidence of a beta-hemolytic strep in the sputum cultures, his follow-up sputum culture only showed Armida. History of resting comfortably in bed, he remains on IV dexamethasone 6 mg daily, has been off the levofed. Breasts labs have been reviewed, his white blood cell count is 8.1, hemoglobin is 8.1, his platelet count is 126, d-dimer is 13.3, sodium is 133, potassium 3.7, his renal function is relatively stable, with BUN of 82, and creatinine 4.51. These LDH is 792, CRP is 48. His had no acute events overnight, we spoke to his daughter yesterday in regards to patient's condition, and to discuss tracheostomy and PEG tube insertion, awaiting response from the family on their decision and the daughter indicated that patient had poor quality of life to start with and the were not sure if the workup and consent to the trach and PEG On 07/21/2000 patient seen in follow-up in the intensive care unit, yesterday he tolerated 11 hours of sedation holiday, and he was starting to follow simple commands, however is that day went on he was becoming more agitated and tachypneic, and he was placed back on sedation, currently on Diprivan at 40 mics per kilo per minute, and 0.9 at KVO, he remains intubated, on assist control mode of ventilation, with a rate of 24, Tylox 450, FiO2 of 50% and PEEP of 6, this morning's blood gases show pO2 133, pCO2 of 41, and pH is 7.38. Patient is resting comfortably, appears to be in no acute distress, he is not on any vasoactive drugs, no vasopressors, she is in sinus rhythm sinus tach with a rate of 90-106 BPM, hemodialysis treatment this morning, and attended have liters of fluid was taken off, his vital signs have been stable overnight, no fever or chills, lung sounds are diminished. She also remains on IV Lasix 80 mg twice da waylon, patient is producing urine in the order of 30-60 ML per hour, and she is in -4.1 L over the last 24 hours with additional -2.49 fluid balance since midnight last night. Chest x-ray shows interval improvement in bilateral airspace infiltrates particularly within the right upper lobe. Today's labs have been reviewed, showing white blood cell count 7.1, hemoglobin of 7.4, platelet count is 120, sodium is 130, potassium is 3.2, chloride is 104, CO2 of 23, BUN of 75 and creatinine of 4.01. Patient remains on Rocephin for beta-hemolytic strep in the sputum, repeat culture of the sputum showed only Armida. He is tolerating tube feedings which are on hold for tracheostomy and PEG tube placement which is scheduled for today. On 07/22/2020 patient seen in follow-up in intensive care unit, he remains sedated and trach to the ventilator, on assist-control mode of ventilation with a rate of 24, her lungs were 50, FiO2 50% and PEEP of 6, his blood gas shows pO2 of 169, pCO2 40, pH of 7.36, patient is currently on Diprivan at 55 mics per kilo per minute, he is on 0.9 normal saline at 10 ML per hour, Levophed that he is at 0.02 mics per kilo per minute. Patient is having hemodialysis treatment right now. Patient received tracheostomy and PEG tube yesterday. His hemodialysis access was switched to right subclavian approach. He still has a central line in his groin which will need to be switched to a PICC line. Today's chest x-ray showed bilateral multifocal and confluent opacities consistent with COVID-19 infection with no significant interval change. Vital signs have been stable, his sat 98% on the above mentioned settings, requiring small dose of Levafed. 2 feedings will be started sometime today, he is on Rocephin for evidence of 5 beta-hemolytic strep in the sputum, follow-up sputum culture only showed Armida albicans. She had no acute events overnight. He re leonila on Decadron 6 mg daily, he is Eliquis will be started tonight if it's okay with surgery. No other acute events overnight, and -2.4 L fluid balance over the last 24 hours. He does remains generally swollen. On 07/23/2020 patient seen in follow-up, in the intensive care unit, patient received tracheostomy and PEG tube insertion on 07/21/2020, he remains trached to the ventilator and is currently on assist control mode of ventilation with a rate of 24, tacrolimus 450, FiO2 45% and PEEP of 5, this morning's blood gas shows pO2 of 149, pCO2 of 43, and pH of 7.39, he was given a sedation holiday yesterday, however he did not wake up or start following commands, neurology completed a brain CT which showed decreased attenuation within the high right frontal lobe without cortical increased attenuation which could reflect petechial hemorrhage, patient is currently not on any anticoagulation, is Eliquis has been on hold since 07/19/2020 at 11:00 in the morning. His hemoglobin today 7.4, his platelet count is 115, his d-dimer is currently is 8.18 on this morning's labs. Patient is not on any aspirin, or Plavix or any other anticoagulants. Patient was resedated he is currently on 35 mics per kilo per minute of Diprivan, and 0.9 and is infusing at KVO, no other infusions. Hemodynamically he has remained stable, he is in sinus rhythm sinus tachycardia on the monitor, this morning his PEG tube became plugged when the crushed oral medications were being instilled through the PEG tube, surgery was notified, and the PEG tube was removed, NG tube will be inserted, however no tube feedings or oral medications are to be put down the NG tube at this point. Patient remains on Rocephin for evidence of beta-hemolytic strep in the sputum, yesterday his central line was discontinued and the tip was sent for culture and the culture is pending at this time, however overnight has been no fever, his vital signs have remained stable. He had hemodialysis on 07/21/2020 with removal of 2.5 L in fluids. Today's labs show sodium of 136, potassium 3.5, chloride is 104, CO2 is 22, BUN 54, and creatinine is 2.6, his renal profile is improving, and patient remains on IV Lasix 80 mg twice daily, he is producing urine in the order of 35-60 ML per hour. No other acute events overnight, neurology is following, and is to comment on the findings of the CT of the brain. Today's chest x-ray shows continued diffuse bilateral groundglass airspace disease/pulmonary edema, with continue small effusions with adjacent atelectasis. LDH is down to 640, and CRP is 5.6 On 07/24/2020 patient seen in follow-up in the intensive care unit, he remains trached to the ventilator on assist control mode of ventilation with a rate of 24, tidal is 450, FiO2 of 45% and PEEP of 5, this morning's blood gas shows pO2 of 150; pCO2 40, pH of 7.4, and FiO2 was dropped down to 40% based on the above mentioned blood gases, IV fluids are 0.9 normal saline at a rate of 10 ML per hour, and TPN is infusing at 30 ML per hour, not on any vasopressor support, and patient has been off sedation since yesterday morning, were told by the nursing staff that at times he was noted to be attempting to wiggle toes on command. Remains quite lethargic right now, she is not opening eyes to voice, he is not following commands, he is very weak. Chest x-ray today shows diffuse bilateral infiltrates. Tracheostomy hemodialysis catheter appear to be in appropriate positions, NG tube has been inserted yesterday, and peg tube was discontinued, and surgeries plan on replacing the PEG tube on Sunday. Neurology is following, patient has no signs of obvious seizure activity, he does have cough and a gag reflex. But remains very obtunded, today's labs have been reviewed, showing white blood cell count of 4.1, hemoglobin of 7.4, electrolytes were within normal limits, BUN is 68, and creatinine is 3.54. Patient remains on IV Lasix 80 mg twice daily, is in -856 over the last 24 hours, he is tolerating tube feedings, no diarrhea noted. Yesterday his d-dimer came back at 8.18. Patient remains off Eliquis, and he received 300 mg of rectal aspirin per neurology. His most recent brain CT showed previously noted area of subarachnoid hemorrhage associated with abnormal hypodensity posterior laterally in the right frontal lobe was again noted, not significantly changed. Neurology thinks patient has suffered acute ischemic stroke with a small right frontal region with mild petechial hemorrhage in the cortical ribbon Objective - Vital Signs Vital signs: Vital Signs Temp 98.3 F 07/24/20 08:00 Pulse 114 H 07/24/20 09:00 Resp 28 H 07/24/20 09:00 BP 154/98 07/24/20 09:00 Pulse Ox 100 07/24/20 09:00 Intake & Output 07/23/20 07/24/20 07/24/20 18:59 06:59 18:59 Intake Total 428.999 689.451 320 Output Total 755 1220 275 Balance -326.001 -530.549 45 Weight 116.9 kg 114.2 kg Intake: IV 170 450 300 0.9 Normal Saline at KVO 120 120 10 Mvi, Adult No.4 with Vit 330 90 K 10 ml Trace (Conc-1Ml/ Dose) 1 ml Parenteral Electrolytes 20 ml In Amino Acid 5%-D15w 1,000 ml @ 30 mls/hr IV .Q24H [facility] Rx#:[id number] Potassium Chloride 20 meq 100 In Water For Injection 1 100ml.bag @ 50 mls/hr IVPB Q2H [facility] Rx#: [id number] cefTRIAXone 1 gm In 50 100 Sodium Chloride 0.9% 50 ml @ 100 mls/hr IVPB Q24HR [facility] Rx#:[id number] Intake, IV Titration 182.999 239.451 20 Amount Norepinephrine 8 mg In 239.451 Sodium Chloride 0.9% 250 ml @ 0.05 MCG/KG/MIN 12. 403 mls/hr IV .[id number] [facility] Rx#:[id number] Potassium Chloride 20 meq 100 In Water For Injection 1 100ml.bag @ 50 mls/hr IVPB ONCE [facility] Rx#: [id number] Sodium Chloride 0.9% 1, 20 000 ml @ 10 mls/hr IV . Q24H [facility] Rx#:[id number] propofoL 1,000 mg In 82.999 Empty Bag 1 bag @ Titrate IV .Q0M [facility] Rx#: [id number] Tube Feeding 46 0 Other 30 Output: Urine 755 1220 275 Other: Voiding Method Indwelling Catheter Indwelling Catheter ABP, PAP, CO, CI - Last Documented Arterial Blood Pressure 118/64 - Exam GENERAL EXAM: Sedated, morbidly obese 51-year-old white male, trached to the ventilator, on assist-control mode of ventilation with a 45% PEEP of 5, comfortable in no apparent distress. HEAD: Normocephalic/atraumatic. EYES: Normal reaction of pupils, equal size. Conjunctiva pink, sclera white. NOSE: Clear with pink turbinates. THROAT: No erythema or exudates. NECK: No masses, no JVD, no thyroid enlargement, no adenopathy. Midline tracheostomy connected to the ventilator CHEST: No chest wall deformity. Symmetrical expansion. Right subclavian permacath in place and patient is receiving hemodialysis LUNGS: Equal air entry with no crackles, wheeze, rhonchi or dullness. CVS: Regular rate and rhythm, normal S1 and S2, no gallops, no murmurs, no rubs ABDOMEN: Soft, nontender. No hepatosplenomegaly, normal bowel sounds, no guarding or rigidity. PEG tube in place EXTREMITIES: No clubbing, generalized edema no cyanosis, 2+ pulses and upper and lower extremities. Patient has black fingertips on his left hand MUSCULOSKELETAL: Muscle strength and tone normal. Right groin temporary hemodialysis catheter in place SPINE: No scoliosis or deformity SKIN: No rashes CENTRAL NERVOUS SYSTEM: Sedated, intubated. No focal deficits, tone is normal in all 4 extremities. - Labs CBC & Chem 7: 07/24/20 05:31 07/24/20 05:31 Labs: Abnormal Lab Results - Last 24 Hours (Table) 07/23/20 07/23/20 07/23/20 Range/Units 06:51 12:17 16:12 RBC (4.30-5.90) m/uL Hgb (13.0-17.5) gm/dL Hct (39.0-53.0) % RDW (11.5-15.5) % Plt Count (150-450) k/uL ABG pO2 (83-108) mmHg ABG Total CO2 (19-24) mmol/L ABG O2 Saturation (94-97) % Sodium 134 L (137-145) mmol/L BUN 62 H (9-20) mg/dL Creatinine 3.06 H (0.66-1.25) mg/dL Glucose 109 H (74-99) mg/dL POC Glucose (mg/dL) 123 H (75-99) mg/dL Phosphorus 7.2 H (2.5-4.5) mg/dL Ferritin 905.1 H (22.0-322.0) ng/mL Total Bilirubin (0.2-1.3) mg/dL Lactate Dehydrogenase (313-618) U/L C-Reactive Protein (<1.0) mg/dL Total Protein 5.2 L (6.3-8.2) g/dL Albumin 2.8 L (3.5-5.0) g/dL Triglycerides 374 H (<150) mg/dL 07/23/20 07/23/20 07/24/20 Range/Units 17:18 23:32 04:52 RBC (4.30-5.90) m/uL Hgb (13.0-17.5) gm/dL Hct (39.0-53.0) % RDW (11.5-15.5) % Plt Count (150-450) k/uL ABG pO2 157 H (83-108) mmHg ABG Total CO2 27 H (19-24) mmol/L ABG O2 Saturation 99.6 H (94-97) % Sodium (137-145) mmol/L BUN (9-20) mg/dL Creatinine (0.66-1.25) mg/dL Glucose (74-99) mg/dL POC Glucose (mg/dL) 116 H 122 H (75-99) mg/dL Phosphorus (2.5-4.5) mg/dL Ferritin (22.0-322.0) ng/mL Total Bilirubin (0.2-1.3) mg/dL Lactate Dehydrogenase (313-618) U/L C-Reactive Protein (<1.0) mg/dL Total Protein (6.3-8.2) g/dL Albumin (3.5-5.0) g/dL Triglycerides (<150) mg/dL 07/24/20 07/24/20 07/24/20 Range/Units 05:31 05:31 05:54 RBC 2.38 L (4.30-5.90) m/uL Hgb 7.4 L (13.0-17.5) gm/dL Hct 21.5 L (39.0-53.0) % RDW 16.5 H (11.5-15.5) % Plt Count 116 L (150-450) k/uL ABG pO2 (83-108) mmHg ABG Total CO2 (19-24) mmol/L ABG O2 Saturation (94-97) % Sodium (137-145) mmol/L BUN 68 H (9-20) mg/dL Creatinine 3.54 H (0.66-1.25) mg/dL Glucose 113 H (74-99) mg/dL POC Glucose (mg/dL) 121 H (75-99) mg/dL Phosphorus 7.2 H (2.5-4.5) mg/dL Ferritin (22.0-322.0) ng/mL Total Bilirubin 1.5 H (0.2-1.3) mg/dL Lactate Dehydrogenase 655 H (313-618) U/L C-Reactive Protein 6.3 H (<1.0) mg/dL Total Protein 5.2 L (6.3-8.2) g/dL Albumin 2.8 L (3.5-5.0) g/dL Triglycerides (<150) mg/dL Microbiology - Last 24 Hours (Table) 07/22/20 14:45 Catheter Tip Culture - Preliminary Catheter Tip 07/22/20 14:45 Catheter Tip Culture - Preliminary Catheter Tip Assessment and Plan Plan: Assessment: #1. Acute hypoxic respiratory failure secondary to COVID-19 pneumonia. Patient received toci and convalescent plasma., Patient is status post tracheostomy and PEG tube placement on 07/21/2020 #2. Acute ischemic stroke, in right frontal region with mild petechial hemorrhage in the cortical ribbon #3. Acute kidney injury requiring dialysis, improving #4. Altered mental status, related to toxic metabolic encephalopathy, severe, related to multiple organ dysfunction #5. Possible petechial hemorrhage within the right frontal lobe, seen on the CT of the brain, neurology is following #6. Severe metabolic acidosis, improved and resolved after dialysis. #7. Hyperkalemia secondary to above, improved with hemodialysis #8. Benign essential hypertension. #9. Superficial vein thromboses and left cephalic vein and left basilic vein #10. Heparin-induced thrombocytopenia, patient was on Argatroban and Eliquis which are on hold right now #11. History of obstructive sleep apnea syndrome #12. Morbid obesity #13. Increased d-dimer related to COVID-19, patient was started on Eliquis which will be restarted after his surgical procedures #14. Plugged PEG tube, the PEG tube was discontinued today at the bedside on 07/23/2020, we will insert NG tube, we'll hold oral feedings right now Plan: Drop FiO2 down to 40%, keep PEEP at [address] of the brain results have been reviewed, and looks at the patient has suffered an acute ischemic stroke Keep Eliquis on hold, keep oral meds on hold We'll continue Decadron Hold sedation Continue current antibiotics Keep nothing by mouth right now, continue TPN Continue Lasix follow up chest x-ray in follow-up labs tomorrow Will await further input from neurology PEG tube will be reinserted on Sunday Overall prognosis is poor I performed a history & physical examination of the patient and discussed their management with my nurse practitioner, Nelia Conley. I reviewed the nurse practitioner's note and agree with the documented findings and plan of care. Lung sounds are positive for diminished breath sounds The findings and the impression was discussed with the patient. I attest to the documentation by the nurse practitioner. Time with Patient: Greater than 30
[2020-07-24 11:49] LABS: Glucose,Whole Blood 137 mg/dL (75-99)
--- NOTE | 2020-07-24 12:13 | P.PN ---
Subjective Progress Note Date: 07/24/20 Principal diagnosis: This is a 59-year-old male seen in consultation because of acute kidney injury, covered 19 pneumonia on the vent. He was dialyzed yesterday. He remains on the vent. His FiO2 is 40% via of PEEP. His chest x-rays consistent with pneumonia ARDS Urine output is picking up Last 5 hours urine output is about 500 mL. Objective - Vital Signs Vital signs: Vital Signs Temp 98.3 F 07/24/20 08:00 Pulse 117 H 07/24/20 11:00 Resp 29 H 07/24/20 11:00 BP 149/93 07/24/20 11:00 Pulse Ox 100 07/24/20 11:00 Intake & Output 07/23/20 07/24/20 07/24/20 18:59 06:59 18:59 Intake Total 428.999 689.451 500 Output Total 755 1220 600 Balance -326.001 -530.549 -100 Weight 116.9 kg 114.2 kg Intake: IV 170 450 360 0.9 Normal Saline at KVO 120 120 10 Mvi, Adult No.4 with Vit 330 150 K 10 ml Trace (Conc-1Ml/ Dose) 1 ml Parenteral Electrolytes 20 ml In Amino Acid 5%-D15w 1,000 ml @ 30 mls/hr IV .Q24H [facility] Rx#:[id number] Potassium Chloride 20 meq 100 In Water For Injection 1 100ml.bag @ 50 mls/hr IVPB Q2H [facility] Rx#: [id number] cefTRIAXone 1 gm In 50 100 Sodium Chloride 0.9% 50 ml @ 100 mls/hr IVPB Q24HR [facility] Rx#:[id number] Intake, IV Titration 182.999 239.451 140 Amount Norepinephrine 8 mg In 239.451 Sodium Chloride 0.9% 250 ml @ 0.05 MCG/KG/MIN 12. 403 mls/hr IV .[id number] [facility] Rx#:[id number] Potassium Chloride 10 meq 100 In Water For Injection 1 100ml.bag @ 100 mls/hr IVPB Q1H [facility] Rx#: [id number] Potassium Chloride 20 meq 100 In Water For Injection 1 100ml.bag @ 50 mls/hr IVPB ONCE [facility] Rx#: [id number] Sodium Chloride 0.9% 1, 40 000 ml @ 10 mls/hr IV . Q24H [facility] Rx#:[id number] propofoL 1,000 mg In 82.999 Empty Bag 1 bag @ Titrate IV .Q0M [facility] Rx#: [id number] Tube Feeding 46 0 Other 30 Output: Urine 755 1220 600 Other: Voiding Method Indwelling Catheter Indwelling Catheter Indwelling Catheter ABP, PAP, CO, CI - Last Documented Arterial Blood Pressure 118/64 Examination he is on the vent on 40% FiO2. HEENT exam no JVP no facial asymmetry Lungs are clear to auscultation fair air entry bilaterally Heart sounds unremarkable normal sinus rhythm Abdomen soft nontender Extremity exam was trace edema Neurologically obtunded - Labs CBC & Chem 7: 07/24/20 05:31 07/24/20 05:31 Labs: Abnormal Lab Results - Last 24 Hours (Table) 07/23/20 07/23/20 07/23/20 Range/Units 06:51 12:17 16:12 RBC (4.30-5.90) m/uL Hgb (13.0-17.5) gm/dL Hct (39.0-53.0) % RDW (11.5-15.5) % Plt Count (150-450) k/uL ABG pO2 (83-108) mmHg ABG Total CO2 (19-24) mmol/L ABG O2 Saturation (94-97) % Sodium 134 L (137-145) mmol/L BUN 62 H (9-20) mg/dL Creatinine 3.06 H (0.66-1.25) mg/dL Glucose 109 H (74-99) mg/dL POC Glucose (mg/dL) 123 H (75-99) mg/dL Phosphorus 7.2 H (2.5-4.5) mg/dL Ferritin 905.1 H (22.0-322.0) ng/mL Total Bilirubin (0.2-1.3) mg/dL Lactate Dehydrogenase (313-618) U/L C-Reactive Protein (<1.0) mg/dL Total Protein 5.2 L (6.3-8.2) g/dL Albumin 2.8 L (3.5-5.0) g/dL Triglycerides 374 H (<150) mg/dL 07/23/20 07/23/20 07/24/20 Range/Units 17:18 23:32 04:52 RBC (4.30-5.90) m/uL Hgb (13.0-17.5) gm/dL Hct (39.0-53.0) % RDW (11.5-15.5) % Plt Count (150-450) k/uL ABG pO2 157 H (83-108) mmHg ABG Total CO2 27 H (19-24) mmol/L ABG O2 Saturation 99.6 H (94-97) % Sodium (137-145) mmol/L BUN (9-20) mg/dL Creatinine (0.66-1.25) mg/dL Glucose (74-99) mg/dL POC Glucose (mg/dL) 116 H 122 H (75-99) mg/dL Phosphorus (2.5-4.5) mg/dL Ferritin (22.0-322.0) ng/mL Total Bilirubin (0.2-1.3) mg/dL Lactate Dehydrogenase (313-618) U/L C-Reactive Protein (<1.0) mg/dL Total Protein (6.3-8.2) g/dL Albumin (3.5-5.0) g/dL Triglycerides (<150) mg/dL 07/24/20 07/24/20 07/24/20 Range/Units 05:31 05:31 05:54 RBC 2.38 L (4.30-5.90) m/uL Hgb 7.4 L (13.0-17.5) gm/dL Hct 21.5 L (39.0-53.0) % RDW 16.5 H (11.5-15.5) % Plt Count 116 L (150-450) k/uL ABG pO2 (83-108) mmHg ABG Total CO2 (19-24) mmol/L ABG O2 Saturation (94-97) % Sodium (137-145) mmol/L BUN 68 H (9-20) mg/dL Creatinine 3.54 H (0.66-1.25) mg/dL Glucose 113 H (74-99) mg/dL POC Glucose (mg/dL) 121 H (75-99) mg/dL Phosphorus 7.2 H (2.5-4.5) mg/dL Ferritin (22.0-322.0) ng/mL Total Bilirubin 1.5 H (0.2-1.3) mg/dL Lactate Dehydrogenase 655 H (313-618) U/L C-Reactive Protein 6.3 H (<1.0) mg/dL Total Protein 5.2 L (6.3-8.2) g/dL Albumin 2.8 L (3.5-5.0) g/dL Triglycerides (<150) mg/dL 07/24/20 Range/Units 11:47 RBC (4.30-5.90) m/uL Hgb (13.0-17.5) gm/dL Hct (39.0-53.0) % RDW (11.5-15.5) % Plt Count (150-450) k/uL ABG pO2 (83-108) mmHg ABG Total CO2 (19-24) mmol/L ABG O2 Saturation (94-97) % Sodium (137-145) mmol/L BUN (9-20) mg/dL Creatinine (0.66-1.25) mg/dL Glucose (74-99) mg/dL POC Glucose (mg/dL) 137 H (75-99) mg/dL Phosphorus (2.5-4.5) mg/dL Ferritin (22.0-322.0) ng/mL Total Bilirubin (0.2-1.3) mg/dL Lactate Dehydrogenase (313-618) U/L C-Reactive Protein (<1.0) mg/dL Total Protein (6.3-8.2) g/dL Albumin (3.5-5.0) g/dL Triglycerides (<150) mg/dL Microbiology - Last 24 Hours (Table) 07/22/20 14:45 Catheter Tip Culture - Preliminary Catheter Tip 07/22/20 14:45 Catheter Tip Culture - Preliminary Catheter Tip Assessment and Plan Assessment: Impression 1. Acute tubular necrosis secondary to covid 19 pneumonia, was dialyzed yesterday. Urine output is picking up. Will hold off dialysis, continue Lasix. Status post 1 dialysis yesterday 07/23/2020 2. Ventilator dependent respiratory failure from Covid19 pneumonia 3. Stable vital signs. 4. Anemia on darbepoetin. Recommendation 1. Will hold off dialysis and see if his renal recovery is occurring 2. Maintain strict I's and O's and reassess for dialysis on a daily basis
[2020-07-24] MEDS: CLEVIDIPINE BUTYRATE 25 MG in EMPTY BAG 1 BAG IV SCH ×4 (12:29→22:53)
[2020-07-24] MEDS: MORPHINE SULFATE 4 MG/ML SYRINGE IVP PRN ×3 (12:30→23:48)
--- NOTE | 2020-07-24 12:42 | P.PN ---
Progress Note - Text Progress Note Date: 07/24/20 Patient's trach site is clean. Patient will have replacement of PEG tube on Sunday.
[2020-07-24 17:27] LABS: Glucose,Whole Blood 146 mg/dL (75-99)
--- NOTE | 2020-07-24 17:57 | P.PN ---
Subjective Progress Note Date: 07/24/20 Patient was seen for a follow-up via [facility]. Patient has been off sedation since 10 AM. Patient not showing any meaningful clinical improvement. Please refer to examination below. Per other nurse, patient was showing some response with moving his hands, but did not appear on my examination. Patient's PEG tube has been clogged, will need replacement on Sunday. At present patient is not able to get anything orally. No seizure-like activity. Objective - Vital Signs Vital signs: Vital Signs Temp 98.7 F 07/24/20 16:00 Pulse 117 H 07/24/20 17:00 Resp 24 07/24/20 17:00 BP 144/96 07/24/20 17:00 Pulse Ox 100 07/24/20 17:00 Intake & Output 07/23/20 07/24/20 07/24/20 18:59 06:59 18:59 Intake Total 428.999 689.451 754.432 Output Total 755 1220 1470 Balance -326.001 -530.549 -715.568 Weight 116.9 kg 114.2 kg Intake: IV 170 450 540 0.9 Normal Saline at KVO 120 120 10 Mvi, Adult No.4 with Vit 330 330 K 10 ml Trace (Conc-1Ml/ Dose) 1 ml Parenteral Electrolytes 20 ml In Amino Acid 5%-D15w 1,000 ml @ 30 mls/hr IV .Q24H [facility] Rx#:[id number] Potassium Chloride 20 meq 100 In Water For Injection 1 100ml.bag @ 50 mls/hr IVPB Q2H [facility] Rx#: [id number] cefTRIAXone 1 gm In 50 100 Sodium Chloride 0.9% 50 ml @ 100 mls/hr IVPB Q24HR [facility] Rx#:[id number] Intake, IV Titration 182.999 239.451 214.432 Amount Clevidipine Butyrate 25 24.432 mg In Empty Bag 1 bag @ 1 MG/HR 2 mls/hr IV .Q24H [facility] Rx#:[id number] Norepinephrine 8 mg In 239.451 Sodium Chloride 0.9% 250 ml @ 0.05 MCG/KG/MIN 12. 403 mls/hr IV .[id number] [facility] Rx#:[id number] Potassium Chloride 10 meq 100 In Water For Injection 1 100ml.bag @ 100 mls/hr IVPB Q1H [facility] Rx#: [id number] Potassium Chloride 20 meq 100 In Water For Injection 1 100ml.bag @ 50 mls/hr IVPB ONCE [facility] Rx#: [id number] Sodium Chloride 0.9% 1, 90 000 ml @ 10 mls/hr IV . Q24H [facility] Rx#:[id number] propofoL 1,000 mg In 82.999 Empty Bag 1 bag @ Titrate IV .Q0M [facility] Rx#: [id number] Tube Feeding 46 0 Other 30 Output: Urine 755 1220 1470 Other: Voiding Method Indwelling Catheter Indwelling Catheter Indwelling Catheter ABP, PAP, CO, CI - Last Documented Arterial Blood Pressure 118/64 - Exam On examination patient is a middle aged male, appears very obtunded, semi-comatose, does not follow command. Patient has equal, round and reacting pupils. Oculocephalics are present. Corneals are present. Patient does breathe over the ventilator. He has cough and gag. Patient has no obvious seizure activity. Tone is decreased, particularly in the hands. Patient has demarcation of the fingertips of the left hand from ischemia. It is evolving. Reflexes are absent, plantars are flat. Patient slightly grimaced on nailbed pressure on the right, but less response on the left. Patient did open some eyes, at times appear to move it sideway towards the caller, but not consistent. Patient has moderate peripheral edema. - Labs CBC & Chem 7: 07/24/20 05:31 07/24/20 05:31 Labs: Abnormal Lab Results - Last 24 Hours (Table) 07/23/20 07/23/20 07/24/20 Range/Units 06:51 23:32 04:52 RBC (4.30-5.90) m/uL Hgb (13.0-17.5) gm/dL Hct (39.0-53.0) % RDW (11.5-15.5) % Plt Count (150-450) k/uL ABG pO2 157 H (83-108) mmHg ABG Total CO2 27 H (19-24) mmol/L ABG O2 Saturation 99.6 H (94-97) % BUN (9-20) mg/dL Creatinine (0.66-1.25) mg/dL Glucose (74-99) mg/dL POC Glucose (mg/dL) 122 H (75-99) mg/dL Phosphorus (2.5-4.5) mg/dL Ferritin 905.1 H (22.0-322.0) ng/mL Total Bilirubin (0.2-1.3) mg/dL Lactate Dehydrogenase (313-618) U/L C-Reactive Protein (<1.0) mg/dL Total Protein (6.3-8.2) g/dL Albumin (3.5-5.0) g/dL 07/24/20 07/24/20 07/24/20 Range/Units 05:31 05:31 05:54 RBC 2.38 L (4.30-5.90) m/uL Hgb 7.4 L (13.0-17.5) gm/dL Hct 21.5 L (39.0-53.0) % RDW 16.5 H (11.5-15.5) % Plt Count 116 L (150-450) k/uL ABG pO2 (83-108) mmHg ABG Total CO2 (19-24) mmol/L ABG O2 Saturation (94-97) % BUN 68 H (9-20) mg/dL Creatinine 3.54 H (0.66-1.25) mg/dL Glucose 113 H (74-99) mg/dL POC Glucose (mg/dL) 121 H (75-99) mg/dL Phosphorus 7.2 H (2.5-4.5) mg/dL Ferritin 829.0 H (22.0-322.0) ng/mL Total Bilirubin 1.5 H (0.2-1.3) mg/dL Lactate Dehydrogenase 655 H (313-618) U/L C-Reactive Protein 6.3 H (<1.0) mg/dL Total Protein 5.2 L (6.3-8.2) g/dL Albumin 2.8 L (3.5-5.0) g/dL 07/24/20 07/24/20 Range/Units 11:47 17:26 RBC (4.30-5.90) m/uL Hgb (13.0-17.5) gm/dL Hct (39.0-53.0) % RDW (11.5-15.5) % Plt Count (150-450) k/uL ABG pO2 (83-108) mmHg ABG Total CO2 (19-24) mmol/L ABG O2 Saturation (94-97) % BUN (9-20) mg/dL Creatinine (0.66-1.25) mg/dL Glucose (74-99) mg/dL POC Glucose (mg/dL) 137 H 146 H (75-99) mg/dL Phosphorus (2.5-4.5) mg/dL Ferritin (22.0-322.0) ng/mL Total Bilirubin (0.2-1.3) mg/dL Lactate Dehydrogenase (313-618) U/L C-Reactive Protein (<1.0) mg/dL Total Protein (6.3-8.2) g/dL Albumin (3.5-5.0) g/dL Microbiology - Last 24 Hours (Table) 07/22/20 14:45 Catheter Tip Culture - Preliminary Catheter Tip 07/22/20 14:45 Catheter Tip Culture - Preliminary Catheter Tip Assessment and Plan Assessment: * Toxic metabolic encephalopathy, severe in degree. Reasons multifactorial as mentioned. * Acute ischemic stroke small, right frontal region with mild petechial hemorrhage in the cortical ribbon. * Acute kidney injury requiring hemodialysis. * Acute hypoxic respiratory failure from COVID-19 related pneumonia, getting worse. 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 Age-related changes. No new stroke. I feel it is more laminar necrosis from the small ischemic stroke with some petechial hemorrhage in the cortical ribbon. * Carotid Doppler showed no hemodynamic significant stenosis of the proximal IC A. * 2-D echo from 07/06/2020 showed normal left-ventricular size. Moderate concentric LVH. EF is 55-60%. Right ventricle is severely enlarged. Mild TR. * Patient has been resumed on aspirin 300 mg rectally for secondary stroke prevention. * Spoke to patient's brother on the phone. Discussed with him about the results of the CAT scan and the current neurological condition. Discussed with him ab out further evaluation for mechanism of stroke with possible AGNIESZKA. He consented to proceed with AGNIESZKA to evaluate for the source of stroke. * Patient has severe toxic metabolic encephalopathy due to secondary effect of multiorgan dysfunction including acute renal failure, respiratory failure due to severe bilateral pneumonia, acute COVID-19 infection. 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 * EEG 07/20/2020 also revealed severe degree of background slowing consistent with encephalopathy. No epileptiform activity seen. * Prognosis is very guarded to poor based upon his current neurological status and underlying multiple comorbid conditions. * Patient was on on Apixaban for superficial venous thrombosis, which was discontinued on 07/19/2020 for anticipation for tracheostomy. * Patient's PEG tube has been clogged, and has been removed and will require replacement on Sunday. * Will repeat CT head on Sunday to follow-up on the CVA with small petechial/subarachnoid hemorrhage. * Stay off anticoagulation, except for DVT prophylaxis and aspirin regimen. * Spoke to patient's brother on the phone, and answered all questions.
[2020-07-24] MEDS ORDERED: MVI, ADULT NO.4 WITH VIT K 10 ML, TRACE (CONC-1ML/DOSE) 1 ML, PARENTERAL ELECTROLYTES 2... IV SCH ×4 (18:00)
[2020-07-24] MEDS: SODIUM CHLORIDE 0.9% 1,000 ML IV SCH (18:24)
[2020-07-24] MEDS: MVI, ADULT NO.4 WITH VIT K 10 ML, TRACE (CONC-1ML/DOSE) 1 ML, PARENTERAL ELECTROLYTES 2... IV SCH ×5 (18:45)
[2020-07-24 23:54] LABS: Glucose,Whole Blood 130 mg/dL (75-99)
[2020-07-25] MEDS: CLEVIDIPINE BUTYRATE 25 MG in EMPTY BAG 1 BAG IV SCH ×8 (01:53→21:11)
[2020-07-25 04:18] LABS: Albumin 2.9 g/dL (3.5-5.0); C Reactive Protein 5.9 mg/dL (<1.0); Calcium 8.6 mg/dL (8.4-10.2); Magnesium 2.1 mg/dL (1.6-2.3); Phosphorus 6.5 mg/dL (2.5-4.5); Potassium 3.5 mmol/L (3.5-5.1); Total Bilirubin 1.4 mg/dL (0.2-1.3); Total Protein 5.3 g/dL (6.3-8.2)
[2020-07-25 04:26] LABS: Anisocytosis Slight; HCT 22.7 % (39.0-53.0); HGB 7.4 gm/dL (13.0-17.5); MCH 29.6 pg (25.0-35.0); MCHC 32.4 g/dL (31.0-37.0); MCV 91.6 fL (80.0-100.0); Platelet Count 138 k/uL (150-450); RBC 2.48 m/uL (4.30-5.90); RDW 17.1 % (11.5-15.5); WBC 2.1 k/uL (3.8-10.6)
[2020-07-25 04:57] LABS: ABG Base Excess 1.9 mmol/L; ABG HCO3 27 mmol/L (21-25); ABG Oxygen Saturation 98.7 % (94-97); ABG PCO2 43 mmHg (35-45); ABG PO2 128 mmHg (83-108); ABG TCO2 28 mmol/L (19-24); Allen Test Performed? Yes
[2020-07-25] MEDS ORDERED: Potassium Replacement Protocol 1 EACH MISC MISCELLANE PRN (05:03)
[2020-07-25] MEDS: INSULIN ASPART (NovoLOG) 100 UNIT/ML VIAL SQ SCH ×4 (05:05→23:24)
[2020-07-25] MEDS: POTASSIUM CHLORIDE 10 MEQ in WATER FOR INJECTION 1 100ML.BAG IVPB SCH ×4 (05:08→12:32)
[2020-07-25] MEDS: MORPHINE SULFATE 4 MG/ML SYRINGE IVP PRN ×2 (06:15→15:54)
[2020-07-25] MEDS: ALBUTEROL HFA INHALER INHALATION SCH ×3 (07:32→19:05)
--- NOTE | 2020-07-25 07:33 | XR ---
EXAMINATION TYPE: XR chest 1V portable DATE OF EXAM: 07/25/2020 COMPARISON: Chest x-ray 07/24/2020 HISTORY: Mechanical ventilation, abnormal chest x-ray, tracheostomy tube TECHNIQUE: Single frontal view of the chest is obtained. FINDINGS: Tracheostomy tube, right jugular dialysis catheter, orogastric tube, left-sided PICC line are overlying appropriate positions. Cardiac mediastinal silhouette is stable. Patient is again rotat ed. Bilateral airspace disease is present, there is prominence of interstitium. IMPRESSION: Findings similar to prior exam. Correlate for volume overload, pneumonia, edema, renal f ailure
[2020-07-25] MEDS: PANTOPRAZOLE 40 MG/10 ML VIAL IVP SCH ×2 (09:29→20:10)
[2020-07-25] MEDS: ASPIRIN 300 MG SUPP RECTAL SCH (09:29)
[2020-07-25] MEDS: FUROSEMIDE 10 MG/ML 10 ML VIAL IV SCH ×2 (09:29→20:10)
[2020-07-25] MEDS: DEXAMETHASONE SOD PHOSPHATE 10 MG/ML 1 ML VIAL IV SCH (09:29)
--- NOTE | 2020-07-25 10:06 | P.PN ---
Subjective Progress Note Date: 07/25/20 Principal diagnosis: This is a 59-year-old male seen in consultation because of acute kidney injury, covid 19 pneumonia on the vent. He was dialyzed the day before yesterday, and yesterday He remains on the vent. His FiO2 is 40% via of PEEP. His chest x-rays consistent with pneumonia ARDS Urine output is picking up. His urine output is 4000 mL for the last 24 hours. His vital signs are stable blood pressure 120 to 1:30 systolic, afebrile. He is slow to respond, and his computed tomography scan head shows subarachnoid hemorrhage and frontal lobe lesion, neurology is on the case Objective - Vital Signs Vital signs: Vital Signs Temp 98.3 F 07/25/20 04:00 Pulse 96 07/25/20 07:00 Resp 24 07/25/20 07:00 BP 123/84 07/25/20 07:00 Pulse Ox 99 07/25/20 07:00 Intake & Output 07/24/20 07/25/20 07/25/20 18:59 06:59 18:59 Intake Total 554.596 2608.533 165 Output Total 1745 2260 125 Balance -885.568 -1218.467 40 Weight 112 kg Intake: IV 570 100 10 0.9 Normal Saline at KVO 10 100 10 Mvi, Adult No.4 with Vit 360 K 10 ml Trace (Conc-1Ml/ Dose) 1 ml Parenteral Electrolytes 20 ml In Amino Acid 5%-D15w 1,000 ml @ 30 mls/hr IV .Q24H [facility] Rx#:[id number] Potassium Chloride 20 meq 100 In Water For Injection 1 100ml.bag @ 50 mls/hr IVPB Q2H [facility] Rx#: [id number] cefTRIAXone 1 gm In 100 Sodium Chloride 0.9% 50 ml @ 100 mls/hr IVPB Q24HR [facility] Rx#:[id number] Intake, IV Titration 289.432 941.533 155 Amount Clevidipine Butyrate 25 24.432 226.533 mg In Empty Bag 1 bag @ 1 MG/HR 2 mls/hr IV .Q24H [facility] Rx#:[id number] Mvi, Adult No.4 with Vit 55 605 55 K 10 ml Trace (Conc-1Ml/ Dose) 1 ml Parenteral Electrolytes 20 ml Potassium Chloride 20 meq In Amino Acid 5%-D15w 1, 000 ml @ 55 mls/hr IV . [id number] [facility] Rx#:[id number] Potassium Chloride 10 meq 100 In Water For Injection 1 100ml.bag @ 100 mls/hr IVPB Q1H [facility] Rx#: [id number] Potassium Chloride 10 meq 100 100 In Water For Injection 1 100ml.bag @ 100 mls/hr IVPB Q1HR [facility] Rx#: [id number] Sodium Chloride 0.9% 1, 110 10 000 ml @ 10 mls/hr IV . Q24H [facility] Rx#:[id number] Output: Urine 1745 2260 125 Other: Voiding Method Indwelling Catheter Indwelling Catheter ABP, PAP, CO, CI - Last Documented Arterial Blood Pressure 118/64 On examination he is on the vent on 40% FiO2. He seems to be trying to make some eye contact. HEENT exam shows drooping of the left eyelid as well as paralysis of the lateral abducens. Pupils are unequal with the left smaller than the left. No JVD noted Lungs are clear to auscultation with good air entry bilaterally Heart sounds are unremarkable is in normal sinus rhythm Abdomen soft nontender Extremity exam reveals moderate edema. Left ring and middle finger tips are gangrenous Neurologically as mentioned above. - Labs CBC & Chem 7: 07/25/20 03:48 07/25/20 03:48 Labs: Abnormal Lab Results - Last 24 Hours (Table) 07/24/20 07/24/20 07/24/20 Range/Units 05:31 11:47 17:26 WBC (3.8-10.6) k/uL RBC (4.30-5.90) m/uL Hgb (13.0-17.5) gm/dL Hct (39.0-53.0) % RDW (11.5-15.5) % Plt Count (150-450) k/uL ABG pO2 (83-108) mmHg ABG HCO3 (21-25) mmol/L ABG Total CO2 (19-24) mmol/L ABG O2 Saturation (94-97) % BUN (9-20) mg/dL Creatinine (0.66-1.25) mg/dL Glucose (74-99) mg/dL POC Glucose (mg/dL) 137 H 146 H (75-99) mg/dL Phosphorus (2.5-4.5) mg/dL Ferritin 829.0 H (22.0-322.0) ng/mL Total Bilirubin (0.2-1.3) mg/dL ALT (4-49) U/L Lactate Dehydrogenase (313-618) U/L C-Reactive Protein (<1.0) mg/dL Total Protein (6.3-8.2) g/dL Albumin (3.5-5.0) g/dL 07/24/20 07/25/20 07/25/20 Range/Units 23:52 03:48 03:48 WBC 2.1 L (3.8-10.6) k/uL RBC 2.48 L (4.30-5.90) m/uL Hgb 7.4 L (13.0-17.5) gm/dL Hct 22.7 L (39.0-53.0) % RDW 17.1 H (11.5-15.5) % Plt Count 138 L (150-450) k/uL ABG pO2 (83-108) mmHg ABG HCO3 (21-25) mmol/L ABG Total CO2 (19-24) mmol/L ABG O2 Saturation (94-97) % BUN 78 H (9-20) mg/dL Creatinine 3.65 H (0.66-1.25) mg/dL Glucose 126 H (74-99) mg/dL POC Glucose (mg/dL) 130 H (75-99) mg/dL Phosphorus 6.5 H (2.5-4.5) mg/dL Ferritin (22.0-322.0) ng/mL Total Bilirubin 1.4 H (0.2-1.3) mg/dL ALT 54 H (4-49) U/L Lactate Dehydrogenase 654 H (313-618) U/L C-Reactive Protein 5.9 H (<1.0) mg/dL Total Protein 5.3 L (6.3-8.2) g/dL Albumin 2.9 L (3.5-5.0) g/dL 07/25/20 Range/Units 04:50 WBC (3.8-10.6) k/uL RBC (4.30-5.90) m/uL Hgb (13.0-17.5) gm/dL Hct (39.0-53.0) % RDW (11.5-15.5) % Plt Count (150-450) k/uL ABG pO2 128 H (83-108) mmHg ABG HCO3 27 H (21-25) mmol/L ABG Total CO2 28 H (19-24) mmol/L ABG O2 Saturation 98.7 H (94-97) % BUN (9-20) mg/dL Creatinine (0.66-1.25) mg/dL Glucose (74-99) mg/dL POC Glucose (mg/dL) (75-99) mg/dL Phosphorus (2.5-4.5) mg/dL Ferritin (22.0-322.0) ng/mL Total Bilirubin (0.2-1.3) mg/dL ALT (4-49) U/L Lactate Dehydrogenase (313-618) U/L C-Reactive Protein (<1.0) mg/dL Total Protein (6.3-8.2) g/dL Albumin (3.5-5.0) g/dL Microbiology - Last 24 Hours (Table) 07/22/20 14:45 Catheter Tip Culture - Final Catheter Tip Armida albicans 07/22/20 14:45 Catheter Tip Culture - Final Catheter Tip Armida albicans Assessment and Plan Assessment: Impression 1. Acute tubular necrosis secondary to covid 19 pneumonia, was dialyzed the day before yesterday. Urine output is picking up. Will hold off dialysis, continue Lasix. Status post 1 dialysis on 07/23/2020. Creatinine is slightly up from 3.06 to 3.5-to 3.65, but with good urine output 2. Ventilator dependent respiratory failure from Covid19 pneumonia 3. Stable vital signs. 4. Anemia on darbepoetin. 5. Subarachnoid hemorrhage, with associated hypodensity in the right frontal lobe. Clinically has a left eye droop as well as left lateral abducens nerve paralysis possibly with unequal pupils. 6. Mild edema Recommendation 1. Will hold off dialysis and see if his renal recovery is occurring 2. Maintain strict I's and O's and reassess for dialysis on a daily basis. 3. Neurology evaluation 4. Continue diuresis, on Lasix 80 every 12 hours
--- NOTE | 2020-07-25 10:48 | P.PN ---
Subjective Progress Note Date: 07/22/20 Principal diagnosis: Acute hypoxic respiratory failure secondary to Covid pneumonia requiring mechanical ventilation Acute kidney injury requiring hemodialysis This is a pleasant 53 years old male with past medical history of hypertension, osteoarthritis, sleep apnea. Presents with respiratory distress secondary to covid pneumonia and secondary bacterial infection is suspected as well with positive sputum culture for streptococcus, group C. Patient is currently monitored in the ICU because of his respiratory failure, currently on mechanical ventilation and need a small dose of Levophed at 4 g today. Also patient has elevated troponin and he was started on heparin drip however he developed coffee-ground emesis via anicteric tube, heparin drip was stopped and hemoglobin is stable and normal at 12.4 today. Business Development Professional found to his elevated troponin is secondary to his Covid infection and hypotension, Lovenox is on hold although patient has elevated d-dimer due to coffee ground vomiting. Distal sedation, his blood pressure is marginal 104/60 this morning. Pulmonary team performed closely and help with vent management, his PEEP was increased today from 15-18. His oxygen saturation is guarded at 100% with FiO2 of 70%. Patient has marginal urine output at 20 mL/h and continue with normal saline at 80 mL per hour 07/09/2020 Patient remains in critical condition in the ICU, he is sedated and on mechanical ventilation with pulmonary/critical care team followed closely and management. He still needs high PEEP at 18. Today he had suspected left hand coldness and vascular surgery consult, no intervention indicated given his critical guarded condition. He had coffee-ground emesis yesterday and no such episodes, his aspirin was held as well as his Lovenox and switch his anticoagulation into argatroban drip . 4 dropping platelets 90,to 76K today. It NT chase is pending. His creatinine is worsening with nephrology on the case and patient was started on bicarbonate drip, his normal saline at 80 mL per hour was stopped He remains on ceftriaxone 2 g daily for sputum culture positive with streptococcus group C. Also he is on zinc, vitamin D, dexamethasone, Protonix twice daily and Carafate 07/10/2020 Patient remains in the ICU intubated and sedated with pulmonary/critical care team managing his friend, currently he is on PEEP 18 dropped to 15 today by pulmonary team. Despite his history of coffee ground vomitus he was started on argatroban drip for suspected left hand ischemia . Also he is on mild septic shock secondary to bacterial superimposed infection with streptococcus group C found in the blood and sputum cultures on the top of his bilateral Covid pneumonia. He has increased troponin leak secondary to Covid and creatinine is still elevated at 4.1 and followed closely by nephrology team Patient is tachypneic at 36 and blood pressure 121/51 Labs showing trending down WBC to 12.8 K, hemoglobin dropped to 8.9 and Carafate was stopped by coronary team. Platelets are stable 70 6K yesterday and 70 8K today. C-reactive protein is down to 16. Chest x-ray showing bilateral infiltrates. D-dimer was elevated at 34 and throatcalcitonin of 0.23 He remains on ceftriaxone 2 g per ID team, on zinc, vitamin D. Bicarbonate drip,argatroban drip, Protonix twice a day. While aspirating is kept on hold 07/11/2020 Patient in the ICU intubated and sedated. Followed by several consultants Left hand is improving however it is still dusky/bluish color. Tube feeding is in home due to coffee ground emesis. Vent management per pulmonary team, currently PEEP is lowered from 15 down to 10, hit antibodies are positive. Labs showing WBC 18 K, hemoglobin 10.0, platelets 141, creatinine is stable since yesterday at 4.1, LDH is a 1055, C-reactive protein is 13 only. On 07/10 patient was started on hemodialysis for worsening kidney function and creatinine and potassium with low urine output he is still sedated with Nimbex. Tube feeding was on hold due to his history of coffee ground vomitus recently. After the patient remains on argatroban and levophed drip Platelets 141, hemoglobin down to 10.0 K, WBC down to 18 LDH is 1055 and C-reactive protein is within the reference range at 13. Patient is afebrile. In the emergency room he was started on ceftriaxone for Covid and possible superinfection. Also sodium bicarb Was stopped and switched to tablets, normal saline is ordered by primary team, continue with argatroban drip . Also patient is an Protonix and dexamethasone and vitamins. Aspirin was disc ontinued as well as Lovenox. 07/13/2020 Patient was admitted hospital due to acute hypoxic respiratory failure and is currently on mechanical ventilator. Patient also developed acute kidney injury requiring hemodialysis. Patient is sedated. Assist-control 450, FiO2 50% and PEEP of 10. Patient is requiring low-dose norepinephrine drip. Afebrile. Chest x-ray showed relatively similar mid and lower lung consolidation left greater than right. Laboratory data showed WBC 13.7 hemoglobin 9.2 platelets 112 lymphocytes 0.6 D-dimer 13.34 Sodium 132 potassium 4.4 chloride 100 BUN 18 creatinine 3.57 calcium 8.3 phosphorus 8.0 ferritin 847 bilirubin 1.9 AST 71, ALT 93 LDH 1021 CK 406 CRP 70.8 and procalcitonin 0.58. Pulmonary and nephrology is on board. 07/14/2020 Patient is currently in MICU on mechanical ventilator and sedated. Assist- control 450 FiO2 50% and PEEP of 10 and respiratory 28. Chest x-ray showed stable bilateral lung infiltrates greater on the left. Laboratory data showed WBC 12.2 hemoglobin 8.7 platelets 121 lymphocytes 0.5 D- dimer is 9.42 BUN 96 and creatinine 3.97 calcium 8.4 ferritin 775 total bilirubin 1.7, AST 57 ALT 68 alk phos 87 LDH 1062 CPK 231 CRP 87.2 Patient is still low-dose norepinephrine drip. Continued on enteral feeding. Patient is scheduled for hemodialysis today. Patient is being continued dexamethasone, Eliquis and multivitamins. Pulmonary nephrology is following. 07/15/2020 Patient is currently in the MICU on mechanical ventilator. AC 450, FiO2 50% and PEEP of 8. Chest x-ray showed worsening bilateral lung infiltrates. Patient has been afebrile and requiring norepinephrine low-dose pressor support. Laboratory data showed WBC 11.6 hemoglobin 8.4 RDW 15.7 platelets 132 D-dimer is 9.0 sodium 130 potassium 4.4 bicarb is 22 BUN 84 and creatinine 3.73 ferritin 81 1.6 LDH 1061 CRP 78.3. Patient is being continued on dexamethasone and Eliquis and multivitamins. Continued on enteral tube feeding. Condition unchanged from yesterday. 07/16/2020 Patient is currently on mechanical ventilator and sedated. This is controlled for 50 respiration 28 and PEEP of 8. FiO2 70%. Chest x-ray showed unchanged appearance of patchy opacities involving the left lung and right base. Stable lines and tubes. Overnight patient was hypotensive and started back on Levophed drip. Patient is being dialyzed today. Currently on tube feeding. Laboratory data showed WBC 11.6 hemoglobin 9.5 platelets 134 neutrophils 10.3 and lymphocytes 0.6 D-dimer level is 9.95 Sodium 133 potassium 4.1 BUN 91 creatinine 3.93 ferritin 729 AST 49 ALT 52 alk phos 108 lactic acid 1103 CRP 62.7 07/17/2020 Patient is currently in the MICU. Patient was given sedation holiday yesterday was subsequently he decompensated and hypoxic and was placed back on sedation. On assist-control 450 with FiO2 60% and PEEP of 8. Patient able to tolerate hemodialysis with 2 L ultrafiltration yesterday. Currently on low-dose norepinephrine drip. Chest x-ray showed diffuse pulmonary infiltrates unchanged without any major interval changes. Laboratory data showed WBC 13.0, hemoglobin 8.2, d-dimer 6.05 Sodium 132 potassium 4.2 BUN 76 and creatinine 3.41, LDH 889 and CRP 4.4 Pulmonary and nephrology is on board. 07/18/2020 Patient is MICU currently sedated and paralyzed and on mechanical ventilator. Assist-control 450 FiO2 50% and PEEP of 8. Chest x-ray showed bilateral mul tifocal and confluent opacities consistent with COVID-19 infection. No significant interval change from one day earlier. Laboratory data showed WBC 10.5, hemoglobin 8.5 platelets 129 d-dimer 5.4, fib ular nose and 576, sodium 1:30 potassium 4.1 BUN 84 and a creatinine 3.74 blood sugar is controlled, LDH 855 and CRP 5.2 by Pulmonary nephrology is following. Patient has been afebrile. Tolerating tube feeding. Continued on and abuts the form of ceftriaxone, dexamethasone 6 mg IV daily and added IV Lasix 80 mg every 12 as blood pressure tolerates. Blood cultures grew coagulase-negative staph aureus. 07/19/2020 Patient is currently on mechanical ventilator. Patient failed weaning trials. Gen. surgery was consulted for possible tracheostomy and PEG tube placement On assist-control 450 FiO2 50% and PEEP of 6. Chest x-ray showed bilateral pulmonary infiltrates involving lower lobes without much change. Laboratory data showed WBC 9.1 hemoglobin 8.9 which is 148 d-dimer 6.68 sodium 135 potassium 3.9. 91 and creatinine 4.51 Sputum cultures grew beta hemolytic Streptococcus and Armida albicans. Repeat blood culture have been negative. Patient is being continued on ceftriaxone. 07/20/2020 Patient is currently in the MICU, remains intubated. Patient tolerated sedation holiday for 11 hours and was following simple commands. Patient became tachypneic and agitated and was started back on Diprivan. Chest x-ray showed interval improvement in bilateral airspace infiltrates particularly in the right upper lobe. Tolerating tube feeding. Patient is scheduled for tracheostomy and PEG tube placement. Otherwise patient is being continued on IV Lasix. Continue antibiotics been on ceftriaxone, dexamethasone. Laboratory showed WBC 8.1 hemoglobin 8.1 platelets 126 D-dimer 13.38 Eliquis on hold due to pending surgery. Sodium 133 potassium 3.7 BUN 82 and creatinine 4.5 ferritin 1037, LDH 792 Pulmonary, neurology and general surgery is on board. 07/21/2020 Patient is currently remained medically ventilated. Sedated. Chest x-ray showed interval improvement suggested in the bilateral airspace infiltrates particularly in the right upper lobe. Patient is scheduled for tracheostomy and PEG tube placement today. Laboratory data showed WBC 7.1 hemoglobin 7.4 and platelets 120 Sodium 138 potassium 3.2 BUN 75 creatinine 4.01 Patient is being continued on antibiotics at home ceftriaxone. Continued on deferoxamine and Lasix. Eliquis is on hold due to schedule surgery. 07/22/2020 Patient is currently in the MICU. Status post tracheostomy and PEG tube placement on 07/21/2020 On ventilator via trach, FiO2 50% PEEP of 6. ABG showed pH 7.36, pCO2 40 and pO2 169. Patient is also on low-dose Levophed.. Chest x-ray showed bilateral multifocal and confluent opacities consistent with COVID-19 infection with no significant interval change.. Patient is continued on ceftriaxone with sputum cultures growing strep species. 2 feedings intake started today. Otherwise patient is being continued on dexamethasone 6 g daily and Eliquis to be started once cleared by surgery. Ben chan does have good urine output. Afebrile. Neurology and surgery and pulmonary is on board. Current medications reviewed. Objective - Vital Signs Vital signs: Vital Signs Temp 97.9 F 07/22/20 20:00 Pulse 98 07/22/20 21:00 Resp 17 07/22/20 21:00 BP 127/77 07/22/20 21:00 Pulse Ox 99 07/22/20 21:00 Intake & Output 07/22/20 07/22/20 07/23/20 06:59 18:59 06:59 Intake Total 511.279 840.256 231.333 Output Total 670 905 270 Balance -158.721 -64.744 -38.667 Weight 119.2 kg 119.2 kg Intake: IV 143 156 39 0.9 Normal Saline 33 36 9 Pressure Bag 0.9 Normal Saline at KVO 110 120 30 Intake, IV Titration 368.279 463.256 93.333 Amount Norepinephrine 8 mg In 9.054 Sodium Chloride 0.9% 250 ml @ 0.05 MCG/KG/MIN 12. 403 mls/hr IV .[id number] [facility] Rx#:[id number] cefTRIAXone 1 gm In 50 Sodium Chloride 0.9% 50 ml @ 100 mls/hr IVPB Q24HR [facility] Rx#:[id number] propofoL 1,000 mg In 359.225 413.256 93.333 Empty Bag 1 bag @ Titrate IV .Q0M [facility] Rx#: [id number] Tube Feeding 0 161 69 Other 60 30 Output: Urine 670 905 270 Other: Voiding Method Indwelling Catheter Indwelling Catheter Indwelling Catheter ABP, PAP, CO, CI - Last Documented Arterial Blood Pressure 118/64 - Exam - Exam -GENERAL: The patient is intubated with a tracheostomy and sedated, well nourished. HEENT: Pupils are round and equally reacting to light. No scleral icterus. No conjunctival pallor. Normocephalic, atraumatic. No pharyngeal erythema. No thyromegaly. CARDIOVASCULAR: S1 and S2 present. No murmurs, rubs, or gallops. PULMONARY: Chest is clear to auscultation, no wheezing or crackles. ABDOMEN: Soft, nontender, nondistended, normoactive bowel sounds. No palpable organomegaly. MUSCULOSKELETAL: No joint swelling or deformity. EXTREMITIES: No cyanosis, clubbing, or pedal edema. NEUROLOGICAL: Gross neurological examination did not reveal any focal deficits. SKIN: No rashes. no petechiae. - Labs CBC & Chem 7: 07/25/20 03:48 07/25/20 03:48 Labs: Abnormal Lab Results - Last 24 Hours (Table) 07/21/20 07/22/20 07/22/20 Range/Units 23:36 04:39 04:45 RBC 2.44 L (4.30-5.90) m/uL Hgb 7.5 L (13.0-17.5) gm/dL Hct 21.9 L (39.0-53.0) % RDW 16.6 H (11.5-15.5) % Plt Count 117 L (150-450) k/uL Lymphocytes # 0.4 L (1.0-4.8) k/uL ABG pO2 169 H (83-108) mmHg ABG O2 Saturation 99.2 H (94-97) % Sodium (137-145) mmol/L Carbon Dioxide (22-30) mmol/L BUN (9-20) mg/dL Creatinine (0.66-1.25) mg/dL POC Glucose (mg/dL) 104 H (75-99) mg/dL Calcium (8.4-10.2) mg/dL Total Protein (6.3-8.2) g/dL Albumin (3.5-5.0) g/dL 07/22/20 07/22/20 07/22/20 Range/Units 04:45 06:09 17:25 RBC (4.30-5.90) m/uL Hgb (13.0-17.5) gm/dL Hct (39.0-53.0) % RDW (11.5-15.5) % Plt Count (150-450) k/uL Lymphocytes # (1.0-4.8) k/uL ABG pO2 (83-108) mmHg ABG O2 Saturation (94-97) % Sodium 134 L (137-145) mmol/L Carbon Dioxide 21 L (22-30) mmol/L BUN 68 H (9-20) mg/dL Creatinine 3.42 H (0.66-1.25) mg/dL POC Glucose (mg/dL) 103 H 123 H (75-99) mg/dL Calcium 8.3 L (8.4-10.2) mg/dL Total Protein 4.8 L (6.3-8.2) g/dL Albumin 2.6 L (3.5-5.0) g/dL Assessment and Plan Assessment: Acute Covid pneumonia Acute hypoxic respiratory failure needing mechanical ventilation. Status post tracheostomy and PEG tube placement on 07/21/2020. Acute kidney injury Due to ATN. Currently requiring HD Severe metabolic acidosis and hyperkalemia improved with hemodialysis Coagulase-negative staph aureus bacteremia Beta-hemolytic streptococcal for wound cultures. On ceftriaxone. Hypotension/septic shock requiring low-dose norepinephrine. Left upper extremity negative for DVT. Superficial thrombus in the left cephalic vein and left base leg pain Heparin-induced thrombocytopenia. Changed to argatroban and currently on Eliquis. Suspected ischemia of the left hand on anticoagulation and draped Coffee ground vomiting with suspected acute GI bleed Thrombocytopenia Elevated troponin, secondary to renal function impairment, viral infection and hypotension Plan: This is a pleasant 59 years old male who presents with Covid pneumonia, possible bacterial pneumonia/. Continue with mechanical ventilation for pulmonary/critical care team will follow the patient closely. Continue with multiple vitamin zinc and vitamin D . Eliquis on hold . Continue with bicarbonate Keep monitoring hemoglobin and platelets. Infectious disease, GI and cardiology, nephrology team on the case Patient is scheduled for tracheostomy and PEG tube placement today. Labs and medication were reviewed. Continue with symptomatic treatment. Resume home medication. Monitor lytes and vitals. DVT and GI prophylaxis. Further recommendations as per clinical course of the patient DVT prophylaxis:Eliquis 2.5mg BID GI Prophylaxis: Ppi, Protonix twice a day Prognosis is guarded Time with Patient: Greater than 30
--- NOTE | 2020-07-25 10:53 | P.PN ---
Subjective Progress Note Date: 07/23/20 Principal diagnosis: Acute hypoxic respiratory failure secondary to Covid pneumonia requiring mechanical ventilation Acute kidney injury requiring hemodialysis This is a pleasant 53 years old male with past medical history of hypertension, osteoarthritis, sleep apnea. Presents with respiratory distress secondary to covid pneumonia and secondary bacterial infection is suspected as well with positive sputum culture for streptococcus, group C. Patient is currently monitored in the ICU because of his respiratory failure, currently on mechanical ventilation and need a small dose of Levophed at 4 g today. Also patient has elevated troponin and he was started on heparin drip however he developed coffee-ground emesis via anicteric tube, heparin drip was stopped and hemoglobin is stable and normal at 12.4 today. Senior Pay[employer]ist found to his elevated troponin is secondary to his Covid infection and hypotension, Lovenox is on hold although patient has elevated d-dimer due to coffee ground vomiting. Distal sedation, his blood pressure is marginal 104/60 this morning. Pulmonary team performed closely and help with vent management, his PEEP was increased today from 15-18. His oxygen saturation is guarded at 100% with FiO2 of 70%. Patient has marginal urine output at 20 mL/h and continue with normal saline at 80 mL per hour 07/09/2020 Patient remains in critical condition in the ICU, he is sedated and on mechanical ventilation with pulmonary/critical care team followed closely and management. He still needs high PEEP at 18. Today he had suspected left hand coldness and vascular surgery consult, no intervention indicated given his critical guarded condition. He had coffee-ground emesis yesterday and no such episodes, his aspirin was held as well as his Lovenox and switch his anticoagulation into argatroban drip . 4 dropping platelets 90,to 76K today. It NT chase is pending. His creatinine is worsening with nephrology on the case and patient was started on bicarbonate drip, his normal saline at 80 mL per hour was stopped He remains on ceftriaxone 2 g daily for sputum culture positive with streptococcus group C. Also he is on zinc, vitamin D, dexamethasone, Protonix twice daily and Carafate 07/10/2020 Patient remains in the ICU intubated and sedated with pulmonary/critical care team managing his friend, currently he is on PEEP 18 dropped to 15 today by pulmonary team. Despite his history of coffee ground vomitus he was started on argatroban drip for suspected left hand ischemia . Also he is on mild septic shock secondary to bacterial superimposed infection with streptococcus group C found in the blood and sputum cultures on the top of his bilateral Covid pneumonia. He has increased troponin leak secondary to Covid and creatinine is still elevated at 4.1 and followed closely by nephrology team Patient is tachypneic at 36 and blood pressure 121/51 Labs showing trending down WBC to 12.8 K, hemoglobin dropped to 8.9 and Carafate was stopped by coronary team. Platelets are stable 70 6K yesterday and 70 8K today. C-reactive protein is down to 16. Chest x-ray showing bilateral infiltrates. D-dimer was elevated at 34 and throatcalcitonin of 0.23 He remains on ceftriaxone 2 g per ID team, on zinc, vitamin D. Bicarbonate drip,argatroban drip, Protonix twice a day. While aspirating is kept on hold 07/11/2020 Patient in the ICU intubated and sedated. Followed by several consultants Left hand is improving however it is still dusky/bluish color. Tube feeding is in home due to coffee ground emesis. Vent management per pulmonary team, currently PEEP is lowered from 15 down to 10, hit antibodies are positive. Labs showing WBC 18 K, hemoglobin 10.0, platelets 141, creatinine is stable since yesterday at 4.1, LDH is a 1055, C-reactive protein is 13 only. On 07/10 patient was started on hemodialysis for worsening kidney function and creatinine and potassium with low urine output he is still sedated with Nimbex. Tube feeding was on hold due to his history of coffee ground vomitus recently. After the patient remains on argatroban and levophed drip Platelets 141, hemoglobin down to 10.0 K, WBC down to 18 LDH is 1055 and C-reactive protein is within the reference range at 13. Patient is afebrile. In the emergency room he was started on ceftriaxone for Covid and possible superinfection. Also sodium bicarb Was stopped and switched to tablets, normal saline is ordered by primary team, continue with argatroban drip . Also patient is an Protonix and dexamethasone and vitamins. Aspirin was disc ontinued as well as Lovenox. 07/13/2020 Patient was admitted hospital due to acute hypoxic respiratory failure and is currently on mechanical ventilator. Patient also developed acute kidney injury requiring hemodialysis. Patient is sedated. Assist-control 450, FiO2 50% and PEEP of 10. Patient is requiring low-dose norepinephrine drip. Afebrile. Chest x-ray showed relatively similar mid and lower lung consolidation left greater than right. Laboratory data showed WBC 13.7 hemoglobin 9.2 platelets 112 lymphocytes 0.6 D-dimer 13.34 Sodium 132 potassium 4.4 chloride 100 BUN 18 creatinine 3.57 calcium 8.3 phosphorus 8.0 ferritin 847 bilirubin 1.9 AST 71, ALT 93 LDH 1021 CK 406 CRP 70.8 and procalcitonin 0.58. Pulmonary and nephrology is on board. 07/14/2020 Patient is currently in MICU on mechanical ventilator and sedated. Assist- control 450 FiO2 50% and PEEP of 10 and respiratory 28. Chest x-ray showed stable bilateral lung infiltrates greater on the left. Laboratory data showed WBC 12.2 hemoglobin 8.7 platelets 121 lymphocytes 0.5 D- dimer is 9.42 BUN 96 and creatinine 3.97 calcium 8.4 ferritin 775 total bilirubin 1.7, AST 57 ALT 68 alk phos 87 LDH 1062 CPK 231 CRP 87.2 Patient is still low-dose norepinephrine drip. Continued on enteral feeding. Patient is scheduled for hemodialysis today. Patient is being continued dexamethasone, Eliquis and multivitamins. Pulmonary nephrology is following. 07/15/2020 Patient is currently in the MICU on mechanical ventilator. AC 450, FiO2 50% and PEEP of 8. Chest x-ray showed worsening bilateral lung infiltrates. Patient has been afebrile and requiring norepinephrine low-dose pressor support. Laboratory data showed WBC 11.6 hemoglobin 8.4 RDW 15.7 platelets 132 D-dimer is 9.0 sodium 130 potassium 4.4 bicarb is 22 BUN 84 and creatinine 3.73 ferritin 81 1.6 LDH 1061 CRP 78.3. Patient is being continued on dexamethasone and Eliquis and multivitamins. Continued on enteral tube feeding. Condition unchanged from yesterday. 07/16/2020 Patient is currently on mechanical ventilator and sedated. This is controlled for 50 respiration 28 and PEEP of 8. FiO2 70%. Chest x-ray showed unchanged appearance of patchy opacities involving the left lung and right base. Stable lines and tubes. Overnight patient was hypotensive and started back on Levophed drip. Patient is being dialyzed today. Currently on tube feeding. Laboratory data showed WBC 11.6 hemoglobin 9.5 platelets 134 neutrophils 10.3 and lymphocytes 0.6 D-dimer level is 9.95 Sodium 133 potassium 4.1 BUN 91 creatinine 3.93 ferritin 729 AST 49 ALT 52 alk phos 108 lactic acid 1103 CRP 62.7 07/17/2020 Patient is currently in the MICU. Patient was given sedation holiday yesterday was subsequently he decompensated and hypoxic and was placed back on sedation. On assist-control 450 with FiO2 60% and PEEP of 8. Patient able to tolerate hemodialysis with 2 L ultrafiltration yesterday. Currently on low-dose norepinephrine drip. Chest x-ray showed diffuse pulmonary infiltrates unchanged without any major interval changes. Laboratory data showed WBC 13.0, hemoglobin 8.2, d-dimer 6.05 Sodium 132 potassium 4.2 BUN 76 and creatinine 3.41, LDH 889 and CRP 4.4 Pulmonary and nephrology is on board. 07/18/2020 Patient is MICU currently sedated and paralyzed and on mechanical ventilator. Assist-control 450 FiO2 50% and PEEP of 8. Chest x-ray showed bilateral mul tifocal and confluent opacities consistent with COVID-19 infection. No significant interval change from one day earlier. Laboratory data showed WBC 10.5, hemoglobin 8.5 platelets 129 d-dimer 5.4, fib ular nose and 576, sodium 1:30 potassium 4.1 BUN 84 and a creatinine 3.74 blood sugar is controlled, LDH 855 and CRP 5.2 by Pulmonary nephrology is following. Patient has been afebrile. Tolerating tube feeding. Continued on and abuts the form of ceftriaxone, dexamethasone 6 mg IV daily and added IV Lasix 80 mg every 12 as blood pressure tolerates. Blood cultures grew coagulase-negative staph aureus. 07/19/2020 Patient is currently on mechanical ventilator. Patient failed weaning trials. Gen. surgery was consulted for possible tracheostomy and PEG tube placement On assist-control 450 FiO2 50% and PEEP of 6. Chest x-ray showed bilateral pulmonary infiltrates involving lower lobes without much change. Laboratory data showed WBC 9.1 hemoglobin 8.9 which is 148 d-dimer 6.68 sodium 135 potassium 3.9. 91 and creatinine 4.51 Sputum cultures grew beta hemolytic Streptococcus and Armida albicans. Repeat blood culture have been negative. Patient is being continued on ceftriaxone. 07/20/2020 Patient is currently in the MICU, remains intubated. Patient tolerated sedation holiday for 11 hours and was following simple commands. Patient became tachypneic and agitated and was started back on Diprivan. Chest x-ray showed interval improvement in bilateral airspace infiltrates particularly in the right upper lobe. Tolerating tube feeding. Patient is scheduled for tracheostomy and PEG tube placement. Otherwise patient is being continued on IV Lasix. Continue antibiotics been on ceftriaxone, dexamethasone. Laboratory showed WBC 8.1 hemoglobin 8.1 platelets 126 D-dimer 13.38 Eliquis on hold due to pending surgery. Sodium 133 potassium 3.7 BUN 82 and creatinine 4.5 ferritin 1037, LDH 792 Pulmonary, neurology and general surgery is on board. 07/21/2020 Patient is currently remained medically ventilated. Sedated. Chest x-ray showed interval improvement suggested in the bilateral airspace infiltrates particularly in the right upper lobe. Patient is scheduled for tracheostomy and PEG tube placement today. Laboratory data showed WBC 7.1 hemoglobin 7.4 and platelets 120 Sodium 138 potassium 3.2 BUN 75 creatinine 4.01 Patient is being continued on antibiotics at home ceftriaxone. Continued on deferoxamine and Lasix. Eliquis is on hold due to schedule surgery. 07/22/2020 Patient is currently in the MICU. Status post tracheostomy and PEG tube placement on 07/21/2020 On ventilator via trach, FiO2 50% PEEP of 6. ABG showed pH 7.36, pCO2 40 and pO2 169. Patient is also on low-dose Levophed.. Chest x-ray showed bilateral multifocal and confluent opacities consistent with COVID-19 infection with no significant interval change.. Patient is continued on ceftriaxone with sputum cultures growing strep species. 2 feedings intake started today. Otherwise patient is being continued on dexamethasone 6 g daily and Eliquis to be started once cleared by surgery. Ben chan does have good urine output. Afebrile. Neurology and surgery and pulmonary is on board. 07/23/2020 Patient is currently in the intensive care unit. On mechanical ventilation to the tracheostomy tube. Assist-control 450 FiO2 40% and PEEP of 5. ABG showed pH 7.39 pCO2 43 pO2 149. Patient was given sedation holiday yesterday however patient did not wake up. Neurology was consulted CT brain was ordered. Showed decreased attenuation within the right frontal lobe without cortical increased attenuation which could reflect petechial hemorrhage. Patient is currently not on any anti-Coblation. Eliquis is on hold since 07/19/2020. Hemoglobin 7.4 and platelets 105. D-dimer 8.18. Patient is not on any aspirin and Plavix at this time. PEG tube became plugged when the crescendo oral medications were being instilled through the PEG tube. Surgery was notified and the PACU was removed. Planning for NG tube placement. Otherwise patient is being continued on ceftriaxone for beta-hemolytic streptococcus in the sputum suctioned. Patient had hemodialysis on 07/21/2020 with 2.5 L ultrafiltration. Laboratory data showed sodium 136 potassium 3.5 chloride 104 bicarb 22 BUN 54 and creatin ine 2.6. Patient remained on IV Lasix 80 mg twice daily. Patient does have urine output. A Lasix 40 CRP 5.6 Chest x-ray showed diffuse bilateral groundglass airspace disease/pulmonary edema with current small pleural effusion with adjacent atelectasis. Pulmonary and neurology and nephrology is on board. Current medications reviewed. Objective - Vital Signs Vital signs: Vital Signs Temp 98.9 F 07/23/20 20:00 Pulse 105 H 07/23/20 20:00 Resp 24 07/23/20 20:00 BP 137/105 07/23/20 20:00 Pulse Ox 97 07/23/20 20:00 Intake & Output 07/23/20 07/23/20 07/24/20 06:59 18:59 06:59 Intake Total 915.128 428.999 50 Output Total 830 755 150 Balance 85.128 -326.001 -100 Weight 116.9 kg 116.9 kg Intake: IV 123 170 50 0.9 Normal Saline 3 Pressure Bag 0.9 Normal Saline at KVO 120 120 20 Mvi, Adult No.4 with Vit 30 K 10 ml Trace (Conc-1Ml/ Dose) 1 ml Parenteral Electrolytes 20 ml In Amino Acid 5%-D15w 1,000 ml @ 30 mls/hr IV .Q24H [facility] Rx#:[id number] cefTRIAXone 1 gm In 50 Sodium Chloride 0.9% 50 ml @ 100 mls/hr IVPB Q24HR [facility] Rx#:[id number] Intake, IV Titration 426.128 182.999 Amount Potassium Chloride 20 meq 100 In Water For Injection 1 100ml.bag @ 50 mls/hr IVPB ONCE STA Rx#: [id number] propofoL 1,000 mg In 426.128 82.999 Empty Bag 1 bag @ Titrate IV .Q0M [facility] Rx#: [id number] Tube Feeding 276 46 0 Other 90 30 Output: Urine 830 755 150 Other: Voiding Method Indwelling Catheter Indwelling Catheter Indwelling Catheter ABP, PAP, CO, CI - Last Documented Arterial Blood Pressure 118/64 - Exam - Exam -GENERAL: The patient is intubated with a tracheostomy and sedated, well nourished. HEENT: Pupils are round and equally reacting to light. No scleral icterus. No conjunctival pallor. Normocephalic, atraumatic. No pharyngeal erythema. No thyromegaly. CARDIOVASCULAR: S1 and S2 present. No murmurs, rubs, or gallops. PULMONARY: Chest is clear to auscultation, no wheezing or crackles. ABDOMEN: Soft, nontender, nondistended, normoactive bowel sounds. No palpable organomegaly. MUSCULOSKELETAL: No joint swelling or deformity. EXTREMITIES: No cyanosis, clubbing, or pedal edema. NEUROLOGICAL: Gross neurological examination did not reveal any focal deficits. SKIN: No rashes. no petechiae. - Labs CBC & Chem 7: 07/25/20 03:48 07/25/20 03:48 Labs: Abnormal Lab Results - Last 24 Hours (Table) 07/22/20 07/23/20 07/23/20 Range/Units 23:50 05:12 05:12 RBC (4.30-5.90) m/uL Hgb (13.0-17.5) gm/dL Hct (39.0-53.0) % RDW (11.5-15.5) % Plt Count (150-450) k/uL D-Dimer 8.18 H (<0.60) mg/L FEU ABG pO2 (83-108) mmHg ABG HCO3 (21-25) mmol/L ABG Total CO2 (19-24) mmol/L ABG O2 Saturation (94-97) % Sodium 136 L (137-145) mmol/L BUN 54 H (9-20) mg/dL Creatinine 2.66 H (0.66-1.25) mg/dL Glucose 102 H (74-99) mg/dL POC Glucose (mg/dL) 110 H (75-99) mg/dL Phosphorus (2.5-4.5) mg/dL Lactate Dehydrogenase 640 H (313-618) U/L C-Reactive Protein 5.6 H (<1.0) mg/dL Total Protein 4.9 L (6.3-8.2) g/dL Albumin 2.6 L (3.5-5.0) g/dL Triglycerides (<150) mg/dL 07/23/20 07/23/20 07/23/20 Range/Units 05:28 06:51 12:17 RBC 2.49 L (4.30-5.90) m/uL Hgb 7.4 L (13.0-17.5) gm/dL Hct 22.9 L (39.0-53.0) % RDW 17.1 H (11.5-15.5) % Plt Count 115 L (150-450) k/uL D-Dimer (<0.60) mg/L FEU ABG pO2 149 H (83-108) mmHg ABG HCO3 26 H (21-25) mmol/L ABG Total CO2 27 H (19-24) mmol/L ABG O2 Saturation 99.6 H (94-97) % Sodium (137-145) mmol/L BUN (9-20) mg/dL Creatinine (0.66-1.25) mg/dL Glucose (74-99) mg/dL POC Glucose (mg/dL) 123 H (75-99) mg/dL Phosphorus (2.5-4.5) mg/dL Lactate Dehydrogenase (313-618) U/L C-Reactive Protein (<1.0) mg/dL Total Protein (6.3-8.2) g/dL Albumin (3.5-5.0) g/dL Triglycerides (<150) mg/dL 07/23/20 07/23/20 Range/Units 16:12 17:18 RBC (4.30-5.90) m/uL Hgb (13.0-17.5) gm/dL Hct (39.0-53.0) % RDW (11.5-15.5) % Plt Count (150-450) k/uL D-Dimer (<0.60) mg/L FEU ABG pO2 (83-108) mmHg ABG HCO3 (21-25) mmol/L ABG Total CO2 (19-24) mmol/L ABG O2 Saturation (94-97) % Sodium 134 L (137-145) mmol/L BUN 62 H (9-20) mg/dL Creatinine 3.06 H (0.66-1.25) mg/dL Glucose 109 H (74-99) mg/dL POC Glucose (mg/dL) 116 H (75-99) mg/dL Phosphorus 7.2 H (2.5-4.5) mg/dL Lactate Dehydrogenase (313-618) U/L C-Reactive Protein (<1.0) mg/dL Total Protein 5.2 L (6.3-8.2) g/dL Albumin 2.8 L (3.5-5.0) g/dL Triglycerides 374 H (<150) mg/dL Microbiology - Last 24 Hours (Table) 07/22/20 14:45 Catheter Tip Culture - Preliminary Catheter Tip 07/22/20 14:45 Catheter Tip Culture - Preliminary Catheter Tip Assessment and Plan Assessment: Acute Covid pneumonia Acute hypoxic respiratory failure needing mechanical ventilation. Status post tracheostomy and PEG tube placement on 07/21/2020. Altered mental status likely due to toxic metabolic encephalopathy and multiple organ dysfunction. petechial hemorrhage within the right frontal lobe as per CT brain. Neurology is on board. Acute kidney injury Due to ATN. Currently requiring HD Severe metabolic acidosis and hyperkalemia improved with hemodialysis Coagulase-negative staph aureus bacteremia Beta-hemolytic streptococcal for wound cultures. On ceftriaxone. Hypotension/septic shock requiring low-dose norepinephrine. Left upper extremity negative for DVT. Superficial thrombus in the left cephalic vein and left base leg pain Heparin-induced thrombocytopenia. Changed to argatroban and currently on Eliquis. Suspected ischemia of the left hand on anticoagulation and draped Coffee ground vomiting with suspected acute GI bleed Thrombocytopenia Elevated troponin, secondary to renal function impairment, viral infection and hypotension Plan: This is a pleasant 59 years old male who presents with Covid pneumonia, possible bacterial pneumonia/. Continue with mechanical ventilation for pulmonary/critical care team will follow the patient closely. Continue with multiple vitamin zinc and vitamin D . Eliquis on hold . Continue with bicarbonate Keep monitoring hemoglobin and platelets. Infectious disease, GI and cardiology, nephrology team on the case Patient is scheduled for tracheostomy and PEG tube placement today. Labs and medication were reviewed. Continue with symptomatic treatment. Resume home medication. Monitor lytes and vitals. DVT and GI prophylaxis. Further recommendations as per clinical course of the patient DVT prophylaxis:Eliquis 2.5mg BID on hold currently GI Prophylaxis: Ppi, Protonix twice a day Prognosis is guarded Time with Patient: Greater than 30
--- NOTE | 2020-07-25 11:05 | P.PN ---
Subjective Progress Note Date: 07/24/20 Principal diagnosis: Acute hypoxic respiratory failure secondary to Covid pneumonia requiring mechanical ventilation Acute kidney injury requiring hemodialysis This is a pleasant 53 years old male with past medical history of hypertension, osteoarthritis, sleep apnea. Presents with respiratory distress secondary to covid pneumonia and secondary bacterial infection is suspected as well with positive sputum culture for streptococcus, group C. Patient is currently monitored in the ICU because of his respiratory failure, currently on mechanical ventilation and need a small dose of Levophed at 4 g today. Also patient has elevated troponin and he was started on heparin drip however he developed coffee-ground emesis via anicteric tube, heparin drip was stopped and hemoglobin is stable and normal at 12.4 today. Appliance Counselor found to his elevated troponin is secondary to his Covid infection and hypotension, Lovenox is on hold although patient has elevated d-dimer due to coffee ground vomiting. Distal sedation, his blood pressure is marginal 104/60 this morning. Pulmonary team performed closely and help with vent management, his PEEP was increased today from 15-18. His oxygen saturation is guarded at 100% with FiO2 of 70%. Patient has marginal urine output at 20 mL/h and continue with normal saline at 80 mL per hour 07/09/2020 Patient remains in critical condition in the ICU, he is sedated and on mechanical ventilation with pulmonary/critical care team followed closely and management. He still needs high PEEP at 18. Today he had suspected left hand coldness and vascular surgery consult, no intervention indicated given his critical guarded condition. He had coffee-ground emesis yesterday and no such episodes, his aspirin was held as well as his Lovenox and switch his anticoagulation into argatroban drip . 4 dropping platelets 90,to 76K today. It NT chase is pending. His creatinine is worsening with nephrology on the case and patient was started on bicarbonate drip, his normal saline at 80 mL per hour was stopped He remains on ceftriaxone 2 g daily for sputum culture positive with streptococcus group C. Also he is on zinc, vitamin D, dexamethasone, Protonix twice daily and Carafate 07/10/2020 Patient remains in the ICU intubated and sedated with pulmonary/critical care team managing his friend, currently he is on PEEP 18 dropped to 15 today by pulmonary team. Despite his history of coffee ground vomitus he was started on argatroban drip for suspected left hand ischemia . Also he is on mild septic shock secondary to bacterial superimposed infection with streptococcus group C found in the blood and sputum cultures on the top of his bilateral Covid pneumonia. He has increased troponin leak secondary to Covid and creatinine is still elevated at 4.1 and followed closely by nephrology team Patient is tachypneic at 36 and blood pressure 121/51 Labs showing trending down WBC to 12.8 K, hemoglobin dropped to 8.9 and Carafate was stopped by coronary team. Platelets are stable 70 6K yesterday and 70 8K today. C-reactive protein is down to 16. Chest x-ray showing bilateral infiltrates. D-dimer was elevated at 34 and throatcalcitonin of 0.23 He remains on ceftriaxone 2 g per ID team, on zinc, vitamin D. Bicarbonate drip,argatroban drip, Protonix twice a day. While aspirating is kept on hold 07/11/2020 Patient in the ICU intubated and sedated. Followed by several consultants Left hand is improving however it is still dusky/bluish color. Tube feeding is in home due to coffee ground emesis. Vent management per pulmonary team, currently PEEP is lowered from 15 down to 10, hit antibodies are positive. Labs showing WBC 18 K, hemoglobin 10.0, platelets 141, creatinine is stable since yesterday at 4.1, LDH is a 1055, C-reactive protein is 13 only. On 07/10 patient was started on hemodialysis for worsening kidney function and creatinine and potassium with low urine output he is still sedated with Nimbex. Tube feeding was on hold due to his history of coffee ground vomitus recently. After the patient remains on argatroban and levophed drip Platelets 141, hemoglobin down to 10.0 K, WBC down to 18 LDH is 1055 and C-reactive protein is within the reference range at 13. Patient is afebrile. In the emergency room he was started on ceftriaxone for Covid and possible superinfection. Also sodium bicarb Was stopped and switched to tablets, normal saline is ordered by primary team, continue with argatroban drip . Also patient is an Protonix and dexamethasone and vitamins. Aspirin was disc ontinued as well as Lovenox. 07/13/2020 Patient was admitted hospital due to acute hypoxic respiratory failure and is currently on mechanical ventilator. Patient also developed acute kidney injury requiring hemodialysis. Patient is sedated. Assist-control 450, FiO2 50% and PEEP of 10. Patient is requiring low-dose norepinephrine drip. Afebrile. Chest x-ray showed relatively similar mid and lower lung consolidation left greater than right. Laboratory data showed WBC 13.7 hemoglobin 9.2 platelets 112 lymphocytes 0.6 D-dimer 13.34 Sodium 132 potassium 4.4 chloride 100 BUN 18 creatinine 3.57 calcium 8.3 phosphorus 8.0 ferritin 847 bilirubin 1.9 AST 71, ALT 93 LDH 1021 CK 406 CRP 70.8 and procalcitonin 0.58. Pulmonary and nephrology is on board. 07/14/2020 Patient is currently in MICU on mechanical ventilator and sedated. Assist- control 450 FiO2 50% and PEEP of 10 and respiratory 28. Chest x-ray showed stable bilateral lung infiltrates greater on the left. Laboratory data showed WBC 12.2 hemoglobin 8.7 platelets 121 lymphocytes 0.5 D- dimer is 9.42 BUN 96 and creatinine 3.97 calcium 8.4 ferritin 775 total bilirubin 1.7, AST 57 ALT 68 alk phos 87 LDH 1062 CPK 231 CRP 87.2 Patient is still low-dose norepinephrine drip. Continued on enteral feeding. Patient is scheduled for hemodialysis today. Patient is being continued dexamethasone, Eliquis and multivitamins. Pulmonary nephrology is following. 07/15/2020 Patient is currently in the MICU on mechanical ventilator. AC 450, FiO2 50% and PEEP of 8. Chest x-ray showed worsening bilateral lung infiltrates. Patient has been afebrile and requiring norepinephrine low-dose pressor support. Laboratory data showed WBC 11.6 hemoglobin 8.4 RDW 15.7 platelets 132 D-dimer is 9.0 sodium 130 potassium 4.4 bicarb is 22 BUN 84 and creatinine 3.73 ferritin 81 1.6 LDH 1061 CRP 78.3. Patient is being continued on dexamethasone and Eliquis and multivitamins. Continued on enteral tube feeding. Condition unchanged from yesterday. 07/16/2020 Patient is currently on mechanical ventilator and sedated. This is controlled for 50 respiration 28 and PEEP of 8. FiO2 70%. Chest x-ray showed unchanged appearance of patchy opacities involving the left lung and right base. Stable lines and tubes. Overnight patient was hypotensive and started back on Levophed drip. Patient is being dialyzed today. Currently on tube feeding. Laboratory data showed WBC 11.6 hemoglobin 9.5 platelets 134 neutrophils 10.3 and lymphocytes 0.6 D-dimer level is 9.95 Sodium 133 potassium 4.1 BUN 91 creatinine 3.93 ferritin 729 AST 49 ALT 52 alk phos 108 lactic acid 1103 CRP 62.7 07/17/2020 Patient is currently in the MICU. Patient was given sedation holiday yesterday was subsequently he decompensated and hypoxic and was placed back on sedation. On assist-control 450 with FiO2 60% and PEEP of 8. Patient able to tolerate hemodialysis with 2 L ultrafiltration yesterday. Currently on low-dose norepinephrine drip. Chest x-ray showed diffuse pulmonary infiltrates unchanged without any major interval changes. Laboratory data showed WBC 13.0, hemoglobin 8.2, d-dimer 6.05 Sodium 132 potassium 4.2 BUN 76 and creatinine 3.41, LDH 889 and CRP 4.4 Pulmonary and nephrology is on board. 07/18/2020 Patient is MICU currently sedated and paralyzed and on mechanical ventilator. Assist-control 450 FiO2 50% and PEEP of 8. Chest x-ray showed bilateral mul tifocal and confluent opacities consistent with COVID-19 infection. No significant interval change from one day earlier. Laboratory data showed WBC 10.5, hemoglobin 8.5 platelets 129 d-dimer 5.4, fib ular nose and 576, sodium 1:30 potassium 4.1 BUN 84 and a creatinine 3.74 blood sugar is controlled, LDH 855 and CRP 5.2 by Pulmonary nephrology is following. Patient has been afebrile. Tolerating tube feeding. Continued on and abuts the form of ceftriaxone, dexamethasone 6 mg IV daily and added IV Lasix 80 mg every 12 as blood pressure tolerates. Blood cultures grew coagulase-negative staph aureus. 07/19/2020 Patient is currently on mechanical ventilator. Patient failed weaning trials. Gen. surgery was consulted for possible tracheostomy and PEG tube placement On assist-control 450 FiO2 50% and PEEP of 6. Chest x-ray showed bilateral pulmonary infiltrates involving lower lobes without much change. Laboratory data showed WBC 9.1 hemoglobin 8.9 which is 148 d-dimer 6.68 sodium 135 potassium 3.9. 91 and creatinine 4.51 Sputum cultures grew beta hemolytic Streptococcus and Armida albicans. Repeat blood culture have been negative. Patient is being continued on ceftriaxone. 07/20/2020 Patient is currently in the MICU, remains intubated. Patient tolerated sedation holiday for 11 hours and was following simple commands. Patient became tachypneic and agitated and was started back on Diprivan. Chest x-ray showed interval improvement in bilateral airspace infiltrates particularly in the right upper lobe. Tolerating tube feeding. Patient is scheduled for tracheostomy and PEG tube placement. Otherwise patient is being continued on IV Lasix. Continue antibiotics been on ceftriaxone, dexamethasone. Laboratory showed WBC 8.1 hemoglobin 8.1 platelets 126 D-dimer 13.38 Eliquis on hold due to pending surgery. Sodium 133 potassium 3.7 BUN 82 and creatinine 4.5 ferritin 1037, LDH 792 Pulmonary, neurology and general surgery is on board. 07/21/2020 Patient is currently remained medically ventilated. Sedated. Chest x-ray showed interval improvement suggested in the bilateral airspace infiltrates particularly in the right upper lobe. Patient is scheduled for tracheostomy and PEG tube placement today. Laboratory data showed WBC 7.1 hemoglobin 7.4 and platelets 120 Sodium 138 potassium 3.2 BUN 75 creatinine 4.01 Patient is being continued on antibiotics at home ceftriaxone. Continued on deferoxamine and Lasix. Eliquis is on hold due to schedule surgery. 07/22/2020 Patient is currently in the MICU. Status post tracheostomy and PEG tube placement on 07/21/2020 On ventilator via trach, FiO2 50% PEEP of 6. ABG showed pH 7.36, pCO2 40 and pO2 169. Patient is also on low-dose Levophed.. Chest x-ray showed bilateral multifocal and confluent opacities consistent with COVID-19 infection with no significant interval change.. Patient is continued on ceftriaxone with sputum cultures growing strep species. 2 feedings intake started today. Otherwise patient is being continued on dexamethasone 6 g daily and Eliquis to be started once cleared by surgery. Ben chan does have good urine output. Afebrile. Neurology and surgery and pulmonary is on board. 07/23/2020 Patient is currently in the intensive care unit. On mechanical ventilation to the tracheostomy tube. Assist-control 450 FiO2 40% and PEEP of 5. ABG showed pH 7.39 pCO2 43 pO2 149. Patient was given sedation holiday yesterday however patient did not wake up. Neurology was consulted CT brain was ordered. Showed decreased attenuation within the right frontal lobe without cortical increased attenuation which could reflect petechial hemorrhage. Patient is currently not on any anti-Coblation. Eliquis is on hold since 07/19/2020. Hemoglobin 7.4 and platelets 105. D-dimer 8.18. Patient is not on any aspirin and Plavix at this time. PEG tube became plugged when the crescendo oral medications were being instilled through the PEG tube. Surgery was notified and the PACU was removed. Planning for NG tube placement. Otherwise patient is being continued on ceftriaxone for beta-hemolytic streptococcus in the sputum suctioned. Patient had hemodialysis on 07/21/2020 with 2.5 L ultrafiltration. Laboratory data showed sodium 136 potassium 3.5 chloride 104 bicarb 22 BUN 54 and creatin ine 2.6. Patient remained on IV Lasix 80 mg twice daily. Patient does have urine output. A Lasix 40 CRP 5.6 Chest x-ray showed diffuse bilateral groundglass airspace disease/pulmonary edema with current small pleural effusion with adjacent atelectasis. Pulmonary and neurology and nephrology is on board. 07/24/2020 Patient is currently in intensive care unit. Status post tracheostomy. [facility] ventilator assist control with tidal volume 4 50 mL, FiO2 40% and PEEP of 5. PEG tube feeding is on hold due to blockages and started on TPN. Off pressor support. Anticoagulation is also on hold. Neurology is following. CT showed repeat it is of subarachnoid hemorrhage associated with abnormal hypodensity posterior laterally in the right frontal lobe was again noted. Not significantly changed.. Possible acute ischemic stroke with small right frontal region and with a mild petechial hemorrhage in the cortical ribbon as per neurology. Patient is being continued on antibiotics the form of ceftriaxone. Continued on IV Lasix 80 mg twice daily. Patient does have urine output. Laboratory data showed diabetes. 4.1 hemoglobin 7.4 BUN 68 and creatinine 3.54 Patient is being followed by neurology, pulmonary and nephrology. Current medications reviewed. Objective - Vital Signs Vital signs: Vital Signs Temp 98.2 F 07/24/20 20:00 Pulse 110 H 07/24/20 20:00 Resp 24 07/24/20 20:00 BP 127/81 07/24/20 20:00 Pulse Ox 100 07/24/20 20:00 Intake & Output 04/07/24/20 07/25/20 06:59 18:59 06:59 Intake Total 689.451 859.432 115 Output Total 1220 1745 175 Balance -530.549 -885.568 -60 Weight 114.2 kg Intake: IV 450 570 0.9 Normal Saline at KVO 120 10 Mvi, Adult No.4 with Vit 330 360 K 10 ml Trace (Conc-1Ml/ Dose) 1 ml Parenteral Electrolytes 20 ml In Amino Acid 5%-D15w 1,000 ml @ 30 mls/hr IV .Q24H [facility] Rx#:[id number] Potassium Chloride 20 meq 100 In Water For Injection 1 100ml.bag @ 50 mls/hr IVPB Q2H [facility] Rx#: [id number] [id number] 1 gm In 100 Sodium Chloride 0.9% 50 ml @ 100 mls/hr IVPB Q24HR [facility] Rx#:[id number] Intake, IV Titration 239.451 289.432 115 Amount Clevidipine Butyrate 25 24.432 50 mg In Empty Bag 1 bag @ 1 MG/HR 2 mls/hr IV .Q24H [facility] Rx#:[id number] Mvi, Adult No.4 with Vit 55 55 K 10 ml Trace (Conc-1Ml/ Dose) 1 ml Parenteral Electrolytes 20 ml Potassium Chloride 20 meq In Amino Acid 5%-D15w 1, 000 ml @ 55 mls/hr IV . [id number] [facility] Rx#:[id number] Norepinephrine 8 mg In 239.451 Sodium Chloride 0.9% 250 ml @ 0.05 MCG/KG/MIN 12. 403 mls/hr IV .[id number] [facility] Rx#:[id number] Potassium Chloride 10 meq 100 In Water For Injection 1 100ml.bag @ 100 mls/hr IVPB Q1H [facility] Rx#: [id number] Sodium Chloride 0.9% 1, 110 10 000 ml @ 10 mls/hr IV . Q24H [facility] Rx#:[id number] Tube Feeding 0 Output: Urine 1220 1745 175 Other: Voiding Method Indwelling Catheter Indwelling Catheter Indwelling Catheter ABP, PAP, CO, CI - Last Documented Arterial Blood Pressure 118/64 - Exam - Exam -GENERAL: The patient is intubated with a tracheostomy and sedated, well nourished. HEENT: Pupils are round and equally reacting to light. No scleral icterus. No conjunctival pallor. Normocephalic, atraumatic. No pharyngeal erythema. No thyromegaly. CARDIOVASCULAR: S1 and S2 present. No murmurs, rubs, or gallops. PULMONARY: Chest is clear to auscultation, no wheezing or crackles. ABDOMEN: Soft, nontender, nondistended, normoactive bowel sounds. No palpable organomegaly. MUSCULOSKELETAL: No joint swelling or deformity. EXTREMITIES: No cyanosis, clubbing, or pedal edema. NEUROLOGICAL: Gross neurological examination did not reveal any focal deficits. SKIN: No rashes. no petechiae. - Labs CBC & Chem 7: 07/25/20 03:48 07/25/20 03:48 Labs: Abnormal Lab Results - Last 24 Hours (Table) 07/23/20 07/23/20 07/24/20 Range/Units 06:51 23:32 04:52 RBC (4.30-5.90) m/uL Hgb (13.0-17.5) gm/dL Hct (39.0-53.0) % RDW (11.5-15.5) % Plt Count (150-450) k/uL ABG pO2 157 H (83-108) mmHg ABG Total CO2 27 H (19-24) mmol/L ABG O2 Saturation 99.6 H (94-97) % BUN (9-20) mg/dL Creatinine (0.66-1.25) mg/dL Glucose (74-99) mg/dL POC Glucose (mg/dL) 122 H (75-99) mg/dL Phosphorus (2.5-4.5) mg/dL Ferritin 905.1 H (22.0-322.0) ng/mL Total Bilirubin (0.2-1.3) mg/dL Lactate Dehydrogenase (313-618) U/L C-Reactive Protein (<1.0) mg/dL Total Protein (6.3-8.2) g/dL Albumin (3.5-5.0) g/dL 07/24/20 07/24/20 07/24/20 Range/Units 05:31 05:31 05:54 RBC 2.38 L (4.30-5.90) m/uL Hgb 7.4 L (13.0-17.5) gm/dL Hct 21.5 L (39.0-53.0) % RDW 16.5 H (11.5-15.5) % Plt Count 116 L (150-450) k/uL ABG pO2 (83-108) mmHg ABG Total CO2 (19-24) mmol/L ABG O2 Saturation (94-97) % BUN 68 H (9-20) mg/dL Creatinine 3.54 H (0.66-1.25) mg/dL Glucose 113 H (74-99) mg/dL POC Glucose (mg/dL) 121 H (75-99) mg/dL Phosphorus 7.2 H (2.5-4.5) mg/dL Ferritin 829.0 H (22.0-322.0) ng/mL Total Bilirubin 1.5 H (0.2-1.3) mg/dL Lactate Dehydrogenase 655 H (313-618) U/L C-Reactive Protein 6.3 H (<1.0) mg/dL Total Protein 5.2 L (6.3-8.2) g/dL Albumin 2.8 L (3.5-5.0) g/dL 07/24/20 07/24/20 Range/Units 11:47 17:26 RBC (4.30-5.90) m/uL Hgb (13.0-17.5) gm/dL Hct (39.0-53.0) % RDW (11.5-15.5) % Plt Count (150-450) k/uL ABG pO2 (83-108) mmHg ABG Total CO2 (19-24) mmol/L ABG O2 Saturation (94-97) % BUN (9-20) mg/dL Creatinine (0.66-1.25) mg/dL Glucose (74-99) mg/dL POC Glucose (mg/dL) 137 H 146 H (75-99) mg/dL Phosphorus (2.5-4.5) mg/dL Ferritin (22.0-322.0) ng/mL Total Bilirubin (0.2-1.3) mg/dL Lactate Dehydrogenase (313-618) U/L C-Reactive Protein (<1.0) mg/dL Total Protein (6.3-8.2) g/dL Albumin (3.5-5.0) g/dL Assessment and Plan Assessment: Acute Covid pneumonia Acute hypoxic respiratory failure needing mechanical ventilation. Status post tracheostomy and PEG tube placement on 07/21/2020. Altered mental status likely due to toxic metabolic encephalopathy and multiple organ dysfunction. petechial hemorrhage within the right frontal lobe as per CT brain. Neurology is on board. Acute kidney injury Due to ATN. Currently requiring HD Severe metabolic acidosis and hyperkalemia improved with hemodialysis Coagulase-negative staph aureus bacteremia Beta-hemolytic streptococcal for wound cultures. On ceftriaxone. Hypotension/septic shock requiring low-dose norepinephrine. Left upper extremity negative for DVT. Superficial thrombus in the left cephalic vein and left base leg pain Heparin-induced thrombocytopenia. Changed to argatroban and currently on Eliquis. Suspected ischemia of the left hand on anticoagulation and draped Coffee ground vomiting with suspected acute GI bleed Thrombocytopenia Elevated troponin, secondary to renal function impairment, viral infection and hypotension Plan: This is a pleasant 59 years old male who presents with Covid pneumonia, possible bacterial pneumonia/. Continue with mechanical ventilation for pulmonary/critical care team will follow the patient closely. Continue with multiple vitamin zinc and vitamin D . Eliquis on hold . Continue with bicarbonate Keep monitoring hemoglobin and platelets. Infectious disease, GI and cardiology, nephrology team on the case Patient is scheduled for tracheostomy and PEG tube placement today. Labs and medication were reviewed. Continue with symptomatic treatment. Resume home medication. Monitor lytes and vitals. DVT and GI prophylaxis. Further recommendations as per clinical course of the patient DVT prophylaxis:Eliquis 2.5mg BID on hold currently GI Prophylaxis: Ppi, Protonix twice a day Prognosis is guarded Time with Patient: Greater than 30
[2020-07-25 11:09] LABS: Ferritin 850.3 ng/mL (22.0-322.0)
[2020-07-25 12:06] LABS: Glucose,Whole Blood 155 mg/dL (75-99)
--- NOTE | 2020-07-25 12:24 | P.PN ---
Subjective Progress Note Date: 07/25/20 Principal diagnosis: Acute hypoxemic respiratory failure secondary to acute CoVID 19 pneumonia/pneumonitis This is a 59-year-old male who presented to the emergency department and apparently tested positive for COVID 8 days ago. The patient has apparently been sick for about 10 days. His complaints included weakness and difficulty breathing. In addition, the patient had cough. Patient apparently denied fever, headache, pain, or other complaints initially. Patient is legally blind. The patient did not receive the coronavirus vaccination. Apparently, in the emergency department, his respiratory status declined, and he was intubated. The patient on the volume assist control mode rate of 24, breathing 30 times a minute, tidal volume 450, FiO2 100%, PEEP of 5 being increased to 10. Arterial blood gases show pO2 75, pCO2 33, pH is 7.44. He is receiving propofol at 30 mcg/kg/m, heparin via weightbase protocol, and saline at 20 mL an hour. The patient has a history of hypertension, heart posterior arthritis, sleep apnea, and is legally blind. Chest x-ray shows diffuse bilateral infiltrates. White count 6.3, hemoglobin 12.5, hematocrit 36.8, platelet count 216,000. PTT is 35.4. D-dimer 0.68. Sodium 134, potassium 4.3, chlorides 100, CO2 23, anion gap 11, BUN 39, creatinine 1.70. Troponins were 1.270 and 0.997. C-reactive protein is 261, N-terminal proBNP 4540. Pro-calcitonin is 0.23. Urine is negative both for nitrite and leukocyte esterase. Occasional bacteria, and few white blood cell clumps. Patient seen today 07/07/2020 in follow-up in the intensive care unit. He remains intubated on mechanical ventilator assist control mode. Rate of 24, tidal volume 450, FiO2 100% and a PEEP of 15. Morning blood gases reveal a pO2 135, pCO2 55, pH 7.22. He remains sedated on propofol at 60 mcg/kg/m. Norepinephrine at 0.03 mcg/kg/m. 0.9 normal saline at 80 MLS per hour. Tube feedings have not been initiated yet due to increased output from the NG tube which is coffee-ground in color. Blood cultures reveal no growth. Urine culture reveal no growth. Sputum cultures pending. White count 18.2. Hemoglobin 13.7. Platelet count 110. D-dimer greater than 34. Sodium 137. Potassium 5.9. Creatinine 1.55. Ferritin 5795. LDH 2301. C-reactive protein 147. Glucose 148. He is continued on bronchodilators, dexamethasone, vitamin supplements. He remains on Levaquin. Chest x-ray reveals scattered airspace infiltrates bilaterally. Unchanged. He did receive Tocilizumab. The patient is seen today 07/08/2020 and follow-up in the intensive care unit. He remains intubated and on the mechanical ventilator. Assist-control mode at a rate of 30, tidal volume 450, FiO2 80% and a PEEP of 15. Morning blood gases reveal a P O2 of 91, P CO2 of 49, pH 7.22. He is sedated on propofol at 60 mcg/kg/m. Norepinephrine at 6 mcg/m. 0.9 normal saline at 80 MLS per hour. He was initiated back on his Lovenox yesterday due to d-dimer greater than 34 but was again discontinued. GI services are on the case. White count 20.8. Hemoglobin 12.4. Platelet count 90,000. Sodium 136. Potassium 5.4. Creatinine 2.83. Remains on dexamethasone, vitamin supplements. Antibiotics in the form of Levaquin. Follow-up blood culture reveals no growth. Sputum culture pending. Urine culture revealed no growth. The patient is seen today 07/09/2020 in follow-up in the intensive care unit. He remains intubated, sedated on the mechanical ventilator. Current settings assist-control mode at a rate of 30, tidal volume 450, FiO2 40% and a PEEP of 18. Morning blood gases revealed a PaO2 of 74, pCO2 55, pH 7.14. He is sedated with propofol at 60 mcg/kg/m. Fentanyl drip at 0.5 mcg/kg/h. Nimbex at 1 mcg/kg/m. Being nourished with Nepro at 15 ML's per hour which is his goal. Chest x-ray continues to show patchy bilateral infiltrates, increased in the left midlung. He is now noted to have a cool and dusky left hand with no palpable pulse. Venous Doppler did not reveal any DVT of the left upper extremity. However there is superficial thrombus noted in the left cephalic vein and left basilic vein as noted previously. Follow-up sputum culture pending. White count 17.0. Hemoglobin 11.9. Platelet count 76,000. Lymphocytes 0.5. Sodium 136. Potassium 6.4. Bicarb 17. BUN 91. Creatinine 3.74. Glucose 125. LDH 1316, C-reactive protein 30.8. He has been initiated on argatroban at 0.5 mcg/kg/m. HIT antibodies are pending. He has been initiated on D5W with 3 A of sodium bicarb at 70 ML's per hour. Remains on dexamethasone and vitamin supplements. Patient is seen today 07/10/2020 and follow-up in the intensive care unit. He remains intubated, sedated on the mechanical ventilator. Current settings assist-control mode at a rate of 36, tidal volume 450, FiO2 40% and a PEEP of 18. Morning blood gases reveal a pO2 of 95, pCO2 46, pH 7.24. He is currently sedated on propofol at 60 mcg/kg/m, Nimbex at 1 mcg/kg/m, fentanyl at 0.5 mcg/kg per hour. Norepinephrine at 4 mcg/m. D5W with 3 A of bicarb at 70 ML's per hour. He remains on Argatroban at 0.5 mcg/kg/m. Tube feedings are currently on hold due to high residual volumes. Chest x-ray continue to show bibasilar infiltrates. White count 12.8. Hemoglobin 8.9. White count 78,000. D-dimer 23.24. Sodium 134. Potassium 5.3. Creatinine 4.10. The patient is seen today 07/11/2020 in follow-up in the intensive care unit. He remains intubated, sedated on the mechanical ventilator at assist control mode of a rate of 36, tidal volume 450, FiO2 40% and a PEEP of 15. Morning blood gases reveal pO2 of 81, pCO2 44, pH 7.32. He remains sedated on propofol at 60 mcg/kg/m, fentanyl at 0.7 mcg/kg/h, norepinephrine at 4 mcg/m, D5W with 3 A of sodium bicarb at 70 ML's per hour. Nimbex at 2 mcg/kg/m. He is continued on Argatroban at 0.5 mcg/kg/m. Being nourished with Nepro at 15 ML's per hour. He did receive hemodialysis yesterday with 1 L removed. Chest x-ray reveals mild bibasilar infiltrates. Sputum cultures positive for beta-hemolytic strep, group C. White count 18.1. Hemoglobin 10.6. Platelet count 141. D-dimer 19.69. Sodium 133. Potassium 4.7. Creatinine 4.14. LDH 1055, C-reactive protein 13.8. Remains on antibiotics in the form of ceftriaxone. Bronchodilators. Vitamin supplements. Dexamethasone. Remains off Lovenox due to HIT. The patient is seen today 07/25/2020 in follow-up in the intensive care unit, patient received tracheostomy and PEG tube insertion on 07/21/2020, PEG tube was nonfunctional and removed her surgical services. He remains trached to the mechanical ventilator and is currently on assist control mode of ventilation with a rate of 24, tidal volume 450, FiO2 40% and PEEP of 5, this morning's b lood gas shows pO2 of 128, pCO2 of 43, and pH of 7.40. He is currently off sedation. He does have a left-sided eye droop with change in pupils. His left- sided fingers remain cyanotic. He is moving all 4 extremities. A bit weaker on the left. His most recent brain CT showed previously noted area of subarachnoid hemorrhage associated with abnormal hypodensity posterior laterally in the right frontal lobe was again noted, not significantly changed. Neurology thinks patient has suffered acute ischemic stroke with a small right frontal region with mild petechial hemorrhage in the cortical region. The plan is for repeat computed tomography scan of the head tomorrow morning, AGNIESZKA tomorrow and reinsertion of a PEG tube tomorrow. He remains with a left upper extremity PICC line in place. TPN at 55 ML's per hour. 0.9 normal sinus at 10 MLS per hour. Continued on clever proximal at 8 mg per hour. Chest x-ray continues to revealed bilateral airspace disease. Stable compared to previous. Sputum culture positive for Armida, catheter tips positive for Armida. White count 2.1. Hemoglobin 7.4. Platelets 138. Sodium 139. Potassium 2.5. Creatinine 2.65. Ferritin 850. AST 49. ALT 54. LDH 654. C-reactive protein 5.9. Albumin 2.9. Glucose 155. Remains on ceftriaxone and continued on IV diuretics, Decadron. Remains off anticoagulation. Objective - Vital Signs Vital signs: Vital Signs Temp 98.2 F 07/25/20 08:00 Pulse 100 07/25/20 11:00 Resp 24 07/25/20 11:00 BP 112/74 07/25/20 11:00 Pulse Ox 95 07/25/20 11:00 Intake & Output 07/24/20 07/25/20 07/25/20 18:59 06:59 18:59 Intake Total 891.622 5743.533 609.867 Output Total 1745 2260 278 Balance -885.568 -1218.467 331.867 Weight 112 kg Intake: IV 570 100 140 0.9 Normal Saline at KVO 10 100 40 Mvi, Adult No.4 with Vit 360 K 10 ml Trace (Conc-1Ml/ Dose) 1 ml Parenteral Electrolytes 20 ml In Amino Acid 5%-D15w 1,000 ml @ 30 mls/hr IV .Q24H [facility] Rx#:[id number] Potassium Chloride 20 meq 100 In Water For Injection 1 100ml.bag @ 50 mls/hr IVPB Q2H [facility] Rx#: [id number] [id number] 1 gm In 100 100 Sodium Chloride 0.9% 50 ml @ 100 mls/hr IVPB Q24HR [facility] Rx#:[id number] Intake, IV Titration 289.432 941.533 469.867 Amount Clevidipine Butyrate 25 24.432 226.533 49.867 mg In Empty Bag 1 bag @ 1 MG/HR 2 mls/hr IV .Q24H PRAFLU Rx#:[id number] Mvi, Adult No.4 with Vit 55 605 220 K 10 ml Trace (Conc-1Ml/ Dose) 1 ml Parenteral Electrolytes 20 ml Potassium Chloride 20 meq In Amino Acid 5%-D15w 1, 000 ml @ 55 mls/hr IV . [id number] [facility] Rx#:[id number] Potassium Chloride 10 meq 100 In Water For Injection 1 100ml.bag @ 100 mls/hr IVPB Q1H [facility] Rx#: [id number] Potassium Chloride 10 meq 100 200 In Water For Injection 1 100ml.bag @ 100 mls/hr IVPB Q1HR [facility] Rx#: [id number] Sodium Chloride 0.9% 1, 110 10 000 ml @ 10 mls/hr IV . Q24H [facility] Rx#:[id number] Output: Urine 1745 2260 278 Other: Voiding Method Indwelling Catheter Indwelling Catheter Indwelling Catheter ABP, PAP, CO, CI - Last Documented Arterial Blood Pressure 118/64 - Exam GENERAL EXAM: 59-year-old gentleman, on the mechanical ventilator currently on 40% FiO2 and a PEEP of 5, in no apparent distress. HEAD: Normocephalic. EYES: Sluggish reaction of pupils, or so on the left. NOSE: Clear with pink turbinates. THROAT: No erythema or exudates. NECK: Tracheostomy tube secured in place. No masses, no JVD. CHEST: No chest wall deformity. LUNGS: Equal air entry with crackles in the bilateral posterior bases CVS: S1 and S2 normal with no audible murmur, regular rhythm. ABDOMEN: Previous PEG tube site dressing dry and intact. No hepatosplenomegaly, normal bowel sounds, no guarding or rigidity. SPINE: No scoliosis or deformity SKIN: Cyanotic, dusky fingertips on the left hand CENTRAL NERVOUS SYSTEM: Sedated. Weakness on the left side.. EXTREMITIES: Left upper extremity with cyanotic fingertips, edema. - Labs CBC & Chem 7: 07/25/20 03:48 07/25/20 03:48 Labs: Abnormal Lab Results - Last 24 Hours (Table) 07/24/20 07/24/20 07/24/20 Range/Units 05:31 17:26 23:52 WBC (3.8-10.6) k/uL RBC (4.30-5.90) m/uL Hgb (13.0-17.5) gm/dL Hct (39.0-53.0) % RDW (11.5-15.5) % Plt Count (150-450) k/uL ABG pO2 (83-108) mmHg ABG HCO3 (21-25) mmol/L ABG Total CO2 (19-24) mmol/L ABG O2 Saturation (94-97) % BUN (9-20) mg/dL Creatinine (0.66-1.25) mg/dL Glucose (74-99) mg/dL POC Glucose (mg/dL) 146 H 130 H (75-99) mg/dL Phosphorus (2.5-4.5) mg/dL Ferritin 829.0 H (22.0-322.0) ng/mL Total Bilirubin (0.2-1.3) mg/dL ALT (4-49) U/L Lactate Dehydrogenase (313-618) U/L C-Reactive Protein (<1.0) mg/dL Total Protein (6.3-8.2) g/dL Albumin (3.5-5.0) g/dL 07/25/20 07/25/20 07/25/20 Range/Units 03:48 03:48 04:50 WBC 2.1 L (3.8-10.6) k/uL RBC 2.48 L (4.30-5.90) m/uL Hgb 7.4 L (13.0-17.5) gm/dL Hct 22.7 L (39.0-53.0) % RDW 17.1 H (11.5-15.5) % Plt Count 138 L (150-450) k/uL ABG pO2 128 H (83-108) mmHg ABG HCO3 27 H (21-25) mmol/L ABG Total CO2 28 H (19-24) mmol/L ABG O2 Saturation 98.7 H (94-97) % BUN 78 H (9-20) mg/dL Creatinine 3.65 H (0.66-1.25) mg/dL Glucose 126 H (74-99) mg/dL POC Glucose (mg/dL) (75-99) mg/dL Phosphorus 6.5 H (2.5-4.5) mg/dL Ferritin 850.3 H (22.0-322.0) ng/mL Total Bilirubin 1.4 H (0.2-1.3) mg/dL ALT 54 H (4-49) U/L Lactate Dehydrogenase 654 H (313-618) U/L C-Reactive Protein 5.9 H (<1.0) mg/dL Total Protein 5.3 L (6.3-8.2) g/dL Albumin 2.9 L (3.5-5.0) g/dL Microbiology - Last 24 Hours (Table) 07/22/20 14:45 Catheter Tip Culture - Final Catheter Tip Armida albicans 07/22/20 14:45 Catheter Tip Culture - Final Catheter Tip Armida albicans Assessment and Plan Assessment: 1 Acute hypoxemic respiratory failure secondary to acute CoVID 19 pneumonia/pneumonitis requiring mechanical ventilation on 07/05/2020. Received a tocilizumab in convalescent plasma. Status post tracheostomy tube placement 07/21/2020. Post PEG tube placement 07/21/2020 with subsequent removal. Plan is for reinsertion on 07/26/2020. 2 Acute ischemic stroke, in right frontal region with mild petechial hemorrhage in the cortical ribbon, plan is for AGNIESZKA 07/25/2020 3 Acute renal failure requiring dialysis, improving 4 History of blindness 5 Hypertension, history of 6 Osteoarthritis 7 History of obstructive sleep apnea, maintained on CPAP 8 Hyperkalemia 9 Cool, dusky left upper extremity negative for DVT, however, there is superficial thrombus in the left cephalic vein and left basilic 10 Heparin-induced thrombocytopenia 11 Increased d-dimer related to COVID-19, patient was started on Eliquis which will be restarted after his surgical procedures Plan: The patient was seen and evaluated by Dr. Lora Chest x-ray, ABGs and labs reviewed Plan is for repeat computed tomography scan of the head in the a.m. AGNIESZKA in the a.m. Reinsertion of PEG tube in the a.m. No plans for hemodialysis today Eventual transfer to select specialty We'll continue to follow and make further recommendations based on his clinical status Critical care time 38 minutes I, the cosigning physician, performed a history & physical examination of the patient. Lungs sounds with bilateral crackles. Maintaining good O2 saturations in the 90s on 40% FiO2 and PEEP of 5 via the mechanical ventilator. I discussed the assessment and plan of care with my nurse practitioner, Zoë Roberts. I attest to the above note as dictated by her.
[2020-07-25] MEDS: MVI, ADULT NO.4 WITH VIT K 10 ML, TRACE (CONC-1ML/DOSE) 1 ML, PARENTERAL ELECTROLYTES 2... IV SCH ×10 (12:50→13:30)
--- NOTE | 2020-07-25 15:23 | P.PN ---
Progress Note - Text Progress Note Date: 07/25/20 Patient is stable. He is scheduled for placement of PEG tube tomorrow.
[2020-07-25 17:27] LABS: Glucose,Whole Blood 174 mg/dL (75-99)
[2020-07-25] MEDS: SODIUM CHLORIDE 0.9% 1,000 ML IV SCH (18:32)
[2020-07-25] MEDS: NOREPINEPHRINE 8 MG in SODIUM CHLORIDE 0.9% 250 ML IV SCH (20:06)
--- NOTE | 2020-07-25 20:35 | P.CRDCN ---
History of Present Illness History of present illness: HISTORY OF PRESENTING ILLNESS Patient is a 59-year-old male who initially was admitted for/4 secondary to cough, weakness and shortness breath and was found to have Covid 19 pneumonia. Patient has had prolonged hospitalization requiring tracheostomy and PEG tube placement 07/21/2020. Unfortunately he also has developed acute renal failure requiring dialysis, anemia, heparin-induced thrombocytopenia, superficial venous thrombosis. Patient also with altered mental status and neurology finding patient have an acute ischemic stroke with left-sided weakness and small subarachnoid hemorrhage in the right frontal lobe which has been fairly stable on repeat CT scans. Carotid Doppler showed no significant stenosis. 2-D echo for showed LVH, EF 55-60%, mild tricuspid regurgitation. Patient's initial troponins were 1.2, 0.9, 0.5. REVIEW OF SYSTEMS At the time of my exam: Unable to obtain secondary to altered mental status PHYSICAL EXAMINATION Vital signs reviewed. CONSTITUTIONAL: No apparent distress, ill-appearing, tracheostomy in place HEENT: Head is normocephalic. Pupils are equal, round. Sclerae anicteric. Mucous membranes of the mouth are moist. No JVD. No carotid bruit. CHEST EXAMINATION: Decreased breath sounds bilaterally HEART EXAMINATION: Regular rate and rhythm. S1, S2 heard. No murmurs, gallops or rub. ABDOMEN: Soft, nontender. Positive bowel sounds. EXTREMITIES: 2+ peripheral pulses, no lower extremity edema and no calf tenderness. NEUROLOGIC EXAMINATION: Patient is sedated on ventilator ASSESSMENT 1. COVID-19 pneumonia 2. Acute stroke with small subarachnoid hemorrhage which is been stable 3. Superficial venous thrombosis 4. Thrombocytopenia, questionable heparin-induced thrombocytopenia however hit antibody low, platelets improved 5. Elevated troponins, likely type II mechanism 6. Dilated right ventricle 7. Acute kidney injury requiring hemodialysis 8. Acute on chronic respiratory failure, status post tracheostomy PLAN Discussed case with neurology. Neurology with concern of possible embolic etiology of stroke. Discussed with neurology at that routine AGNIESZKA's with active Covid 19 are being deferred to decrease exposure. Patient with hypercoagulable state with superficial venous thrombosis, questionable heparin-induced th rombocytopenia and COVID-19. Unclear if AGNIESZKA would alter clinical decision making. Patient has been in the hospital for almost one month without any documented atrial fibrillation and lower likelihood of cardiac source of emboli. No AGNIESZKA at this time. Past Medical History Past Medical History: Hypertension, Osteoarthritis (OA), Sleep Apnea/CPAP/BIPAP Additional Past Medical History / Comment(s): Pt tested covid + on 06/26/20 at [facility]. Pt is legally blind, htn but pt was having issues with swelling so he stopped taking htn med, RENETTA without device d/t pt unable to see well enough to keep it clean, chronic low back pain, diverticular disease, benign colon polyp. History of Any Multi-Drug Resistant Organisms: None Reported Past Surgical History: Appendectomy Additional Past Surgical History / Comment(s): Colonoscopy/benign polyp Past Anesthesia/Blood Transfusion Reactions: No Reported Reaction Smoking Status: Former smoker - Past Family History Father Family Medical History: CVA/TIA, Hypertension Mother Family Medical History: No Reported History Brother(s) Family Medical History: Hypertension Sister(s) Family Medical History: Cancer Medications and Allergies Home Medications Medication Instructions Recorded Confirmed Type Sertraline HCl [Zoloft] 200 mg PO DAILY 10/24/14 07/04/20 History ARIPiprazole [Abilify] 5 mg PO BID 08/14/18 07/04/20 History ALPRAZolam [Xanax] 0.25 mg PO DAILY PRN 07/04/20 07/04/20 History Cholecalciferol (Vitamin D3) 125 mcg PO DAILY 07/04/20 07/04/20 History [Vitamin D3 (5000 Iu)] Zinc 50 mg PO DAILY 07/04/20 07/04/20 History Allergies Allergy/AdvReac Type Severity Reaction Status Date / Time Penicillins Allergy Anaphylaxis Verified 07/04/20 20:26 Physical Exam Vitals: Vital Signs Temp Pulse Resp BP Pulse Ox 07/25/20 20:00 99.2 F 99 26 H 128/78 100 07/25/20 19:00 109 H 24 131/82 97 07/25/20 18:00 114 H 33 H 121/79 96 07/25/20 17:00 98 26 H 107/74 99 07/25/20 16:00 98.5 F 120 H 24 138/82 97 07/25/20 15:00 105 H 24 117/75 98 07/25/20 14:00 94 24 117/77 98 07/25/20 13:00 101 H 27 H 115/82 97 07/25/20 12:00 98.7 F 101 H 28 H 118/82 96 07/25/20 11:00 100 24 112/74 95 07/25/20 10:00 120 H 28 H 130/80 96 07/25/20 09:00 97 28 H 126/76 97 07/25/20 08:00 98.2 F 104 H 28 H 128/83 98 07/25/20 07:00 96 24 123/84 99 07/25/20 06:00 80 20 133/100 99 07/25/20 05:00 108 H 19 135/83 98 07/25/20 04:00 98.3 F 92 25 H 127/87 99 07/25/20 03:00 107 H 31 H 136/84 99 07/25/20 02:00 83 24 126/79 99 07/25/20 01:00 85 24 117/70 98 07/25/20 00:04 102 H 22 07/25/20 00:00 98.8 F 117 H 33 H 135/80 100 07/24/20 23:00 82 24 120/73 94 L 07/24/20 22:00 112 H 21 139/95 100 07/24/20 21:00 96 27 H 130/79 100 Intake and Output 07/25/20 07/25/20 07/25/20 06:59 14:59 22:59 Intake Total 533.271 6164.317 459.534 Output Total 5621 446 3584 Balance -255.759 5023.317 -1589.466 Intake: IV 80 180 115 0.9 Normal Saline at KVO 80 80 60 Mvi, Adult No.4 with Vit 55 K 10 ml Trace (Conc-1Ml/ Dose) 1 ml Parenteral Electrolytes 20 ml Potassium Chloride 20 meq In Amino Acid 5%-D15w 1, 000 ml @ 55 mls/hr IV . [id number] [facility] Rx#:[id number] cefTRIAXone 1 gm In 100 Sodium Chloride 0.9% 50 ml @ 100 mls/hr IVPB Q24HR [facility] Rx#:[id number] Intake, IV Titration 565.736 8269.317 344.534 Amount Clevidipine Butyrate 25 127.733 95.734 69.534 mg In Empty Bag 1 bag @ 1 MG/HR 2 mls/hr IV .Q24H [facility] Rx#:[id number] Mvi, Adult No.4 with Vit 440 1214.583 K 10 ml Trace (Conc-1Ml/ Dose) 1 ml Parenteral Electrolytes 20 ml Potassium Chloride 20 meq In Amino Acid 5%-D15w 1, 000 ml @ 55 mls/hr IV . [id number] [facility] Rx#:[id number] Mvi, Adult No.4 with Vit 220 275 K 10 ml Trace (Conc-1Ml/ Dose) 1 ml Parenteral Electrolytes 20 ml Potassium Chloride 40 meq In Amino Acid 5%-D15w 1, 000 ml @ 55 mls/hr IV . Q19H7M [facility] Rx#:[id number] Potassium Chloride 10 meq 100 200 In Water For Injection 1 100ml.bag @ 100 mls/hr IVPB Q1HR [facility] Rx#: [id number] Output: Gastric Drainage 400 Urine [id number] 2155 Other: Voiding Method Indwelling Catheter Indwelling Catheter Indwelling Catheter Weight 112 kg Results 07/25/20 03:48 07/25/20 18:20 Cardiac Enzymes 07/25/20 07/25/20 Range/Units 03:48 03:48 AST 49 (17-59) U/L Lactate Dehydrogenase 654 H (313-618) U/L CK-MB (CK-2) 1.9 (0.0-2.4) ng/mL CBC 07/25/20 Range/Units 03:48 WBC 2.1 L (3.8-10.6) k/uL RBC 2.48 L (4.30-5.90) m/uL Hgb 7.4 L (13.0-17.5) gm/dL Hct 22.7 L (39.0-53.0) % Plt Count 138 L (150-450) k/uL Comprehensive Metabolic Panel 07/25/20 07/25/20 Range/Units 03:48 18:20 Sodium 139 (137-145) mmol/L Potassium 3.5 4.4 (3.5-5.1) mmol/L Chloride 104 (98-107) mmol/L Carbon Dioxide 23 (22-30) mmol/L BUN 78 H (9-20) mg/dL Creatinine 3.65 H (0.66-1.25) mg/dL Glucose 126 H (74-99) mg/dL Calcium 8.6 (8.4-10.2) mg/dL AST 49 (17-59) U/L ALT 54 H (4-49) U/L Alkaline Phosphatase 120 (38-126) U/L Total Protein 5.3 L (6.3-8.2) g/dL Albumin 2.9 L (3.5-5.0) g/dL Current Medications Generic Name Dose Route Start Last Admin Trade Name Freq PRN Reason Stop Dose Admin Albuterol Sulfate 2 puff 07/05/20 08:00 07/25/20 19:05 Albuterol Hfa Inhaler INHALATION 2 puff RT-TID [facility] Administration Aspirin 300 mg 07/24/20 09:00 07/25/20 09:29 Aspirin 300 Mg Supp RECTAL 300 mg DAILY [facility] Administration Darbepoetin Rodrigo 40 mcg 07/14/20 11:00 07/21/20 11:49 Darbepoetin Rodrigo 40 Mcg/0.4 Ml Syringe SQ 40 mcg Q7D [facility] Administration Dexamethasone Sodium Phosphate 6 mg 07/05/20 09:00 07/25/20 09:29 Dexamethasone Sod Phosphate 10 Mg/Ml 1 Ml Vial IV 6 mg DAILY [facility] Administration Furosemide 80 mg 07/18/20 09:00 07/25/20 20:10 Furosemide 10 Mg/Ml 10 Ml Vial IV 80 mg Q12HR [facility] Administration Ceftriaxone Sodium 1 gm/ 50 mls @ 100 mls/hr 07/16/20 09:00 07/25/20 09:29 Sodium Chloride IVPB 100 mls/hr Q24HR [facility] Administration Norepinephrine Bitartrate 8 mg 258 mls @ 12.403 mls/hr 07/21/20 12:45 07/25/20 20:06 / Sodium Chloride IV Not Given .[id number] [facility] Protocol 0.05 MCG/KG/MIN Sodium Chloride 1,000 mls @ 10 mls/hr 07/22/20 19:30 07/25/20 18:32 Saline 0.9% IV Not Given .Q24H [facility] Clevidipine 25 mg/ IV Solution 50 mls @ 2 mls/hr 07/24/20 12:15 07/25/20 17:49 IV 7 mg/hr .Q24H [facility] 14 mls/hr Administration Protocol 1 MG/HR Parenteral Vitamin Supplement 1,041 mls @ 55 mls/hr 07/24/20 18:00 07/25/20 13:30 10 ml/ Zinc/Copper/Manganese/ IV 07/26/20 07:59 Not Given Selenium 1 ml/ Parenteral .[id number] [facility] Electrolytes 20 ml/ Potassium Chloride 20 meq/ Amino Acids/ Dextrose Parenteral Vitamin Supplement 1,051 mls @ 55 mls/hr 07/26/20 08:00 10 ml/ Zinc/Copper/Manganese/ IV Selenium 1 ml/ Parenteral .Q19H7M [facility] Electrolytes 20 ml/ Potassium Chloride 40 meq/ Amino Acids/ Dextrose Insulin Aspart 0 unit 07/11/20 12:00 07/25/20 17:48 Insulin Aspart (Novolog) 100 Unit/Ml Vial SQ 2 unit Q6H [facility] Administration Protocol Miscellaneous Information 1 each 07/25/20 05:03 Potassium Replacement Protocol 1 Each Misc MISCELLANE DAILY PRN Per Protocol Protocol Morphine Sulfate 4 mg 07/24/20 12:12 07/25/20 15:54 Morphine Sulfate 4 Mg/Ml Syringe IVP 4 mg Q4HR PRN Administration Pain Pantoprazole Sodium 40 mg 07/05/20 21:00 07/25/20 20:10 Pantoprazole 40 Mg/10 Ml Vial IVP 40 mg BID [facility] Administration Intake and Output 07/25/20 07/25/20 07/25/20 06:59 14:59 22:59 Intake Total 987.254 4573.317 459.534 Output Total 7586 260 6452 Balance -355.087 6654.317 -1589.466 Intake: IV 80 180 115 0.9 Normal Saline at KVO 80 80 60 Mvi, Adult No.4 with Vit 55 K 10 ml Trace (Conc-1Ml/ Dose) 1 ml Parenteral Electrolytes 20 ml Potassium Chloride 20 meq In Amino Acid 5%-D15w 1, 000 ml @ 55 mls/hr IV . [id number] [facility] Rx#:[id number] cefTRIAXone 1 gm In 100 Sodium Chloride 0.9% 50 ml @ 100 mls/hr IVPB Q24HR [facility] Rx#:[id number] Intake, IV Titration 155.671 7908.317 344.534 Amount Clevidipine Butyrate 25 127.733 95.734 69.534 mg In Empty Bag 1 bag @ 1 MG/HR 2 mls/hr IV .Q24H [facility] Rx#:[id number] Mvi, Adult No.4 with Vit 440 1214.583 K 10 ml Trace (Conc-1Ml/ Dose) 1 ml Parenteral Electrolytes 20 ml Potassium Chloride 20 meq In Amino Acid 5%-D15w 1, 000 ml @ 55 mls/hr IV . [id number] [facility] Rx#:[id number] Mvi, Adult No.4 with Vit 220 275 K 10 ml Trace (Conc-1Ml/ Dose) 1 ml Parenteral Electrolytes 20 ml Potassium Chloride 40 meq In Amino Acid 5%-D15w 1, 000 ml @ 55 mls/hr IV . Q19H7M [facility] Rx#:[id number] Potassium Chloride 10 meq 100 200 In Water For Injection 1 100ml.bag @ 100 mls/hr IVPB Q1HR [facility] Rx#: [id number] Output: Gastric Drainage 400 Urine [id number] 4564 Other: Voiding Method Indwelling Catheter Indwelling Catheter Indwelling Catheter Weight 112 kg 07/25/20 03:48 07/25/20 18:20
[2020-07-25 23:19] LABS: Glucose,Whole Blood 133 mg/dL (75-99)
[2020-07-26] MEDS: CLEVIDIPINE BUTYRATE 25 MG in EMPTY BAG 1 BAG IV SCH ×4 (00:31→14:06)
--- NOTE | 2020-07-26 00:47 | P.PN ---
Subjective Progress Note Date: 07/25/20 Principal diagnosis: Acute hypoxic respiratory failure secondary to Covid pneumonia requiring mechanical ventilation Acute kidney injury requiring hemodialysis This is a pleasant 53 years old male with past medical history of hypertension, osteoarthritis, sleep apnea. Presents with respiratory distress secondary to covid pneumonia and secondary bacterial infection is suspected as well with positive sputum culture for streptococcus, group C. Patient is currently monitored in the ICU because of his respiratory failure, currently on mechanical ventilation and need a small dose of Levophed at 4 g today. Also patient has elevated troponin and he was started on heparin drip however he developed coffee-ground emesis via anicteric tube, heparin drip was stopped and hemoglobin is stable and normal at 12.4 today. [employer] found to his elevated troponin is secondary to his Covid infection and hypotension, Lovenox is on hold although patient has elevated d-dimer due to coffee ground vomiting. Distal sedation, his blood pressure is marginal 104/60 this morning. Pulmonary team performed closely and help with vent management, his PEEP was increased today from 15-18. His oxygen saturation is guarded at 100% with FiO2 of 70%. Patient has marginal urine output at 20 mL/h and continue with normal saline at 80 mL per hour 07/09/2020 Patient remains in critical condition in the ICU, he is sedated and on mechanical ventilation with pulmonary/critical care team followed closely and management. He still needs high PEEP at 18. Today he had suspected left hand coldness and vascular surgery consult, no intervention indicated given his critical guarded condition. He had coffee-ground emesis yesterday and no such episodes, his aspirin was held as well as his Lovenox and switch his anticoagulation into argatroban drip . 4 dropping platelets 90,to 76K today. It NT chase is pending. His creatinine is worsening with nephrology on the case and patient was started on bicarbonate drip, his normal saline at 80 mL per hour was stopped He remains on ceftriaxone 2 g daily for sputum culture positive with streptococcus group C. Also he is on zinc, vitamin D, dexamethasone, Protonix twice daily and Carafate 07/10/2020 Patient remains in the ICU intubated and sedated with pulmonary/critical care team managing his friend, currently he is on PEEP 18 dropped to 15 today by pulmonary team. Despite his history of coffee ground vomitus he was started on argatroban drip for suspected left hand ischemia . Also he is on mild septic shock secondary to bacterial superimposed infection with streptococcus group C found in the blood and sputum cultures on the top of his bilateral Covid pneumonia. He has increased troponin leak secondary to Covid and creatinine is still elevated at 4.1 and followed closely by nephrology team Patient is tachypneic at 36 and blood pressure 121/51 Labs showing trending down WBC to 12.8 K, hemoglobin dropped to 8.9 and Carafate was stopped by coronary team. Platelets are stable 70 6K yesterday and 70 8K today. C-reactive protein is down to 16. Chest x-ray showing bilateral infiltrates. D-dimer was elevated at 34 and throatcalcitonin of 0.23 He remains on ceftriaxone 2 g per ID team, on zinc, vitamin D. Bicarbonate drip,argatroban drip, Protonix twice a day. While aspirating is kept on hold 07/11/2020 Patient in the ICU intubated and sedated. Followed by several consultants Left hand is improving however it is still dusky/bluish color. Tube feeding is in home due to coffee ground emesis. Vent management per pulmonary team, currently PEEP is lowered from 15 down to 10, hit antibodies are positive. Labs showing WBC 18 K, hemoglobin 10.0, platelets 141, creatinine is stable since yesterday at 4.1, LDH is a 1055, C-reactive protein is 13 only. On 07/10 patient was started on hemodialysis for worsening kidney function and creatinine and potassium with low urine output he is still sedated with Nimbex. Tube feeding was on hold due to his history of coffee ground vomitus recently. After the patient remains on argatroban and levophed drip Platelets 141, hemoglobin down to 10.0 K, WBC down to 18 LDH is 1055 and C-reactive protein is within the reference range at 13. Patient is afebrile. In the emergency room he was started on ceftriaxone for Covid and possible superinfection. Also sodium bicarb Was stopped and switched to tablets, normal saline is ordered by primary team, continue with argatroban drip . Also patient is an Protonix and dexamethasone and vitamins. Aspirin was disc ontinued as well as Lovenox. 07/13/2020 Patient was admitted hospital due to acute hypoxic respiratory failure and is currently on mechanical ventilator. Patient also developed acute kidney injury requiring hemodialysis. Patient is sedated. Assist-control 450, FiO2 50% and PEEP of 10. Patient is requiring low-dose norepinephrine drip. Afebrile. Chest x-ray showed relatively similar mid and lower lung consolidation left greater than right. Laboratory data showed WBC 13.7 hemoglobin 9.2 platelets 112 lymphocytes 0.6 D-dimer 13.34 Sodium 132 potassium 4.4 chloride 100 BUN 18 creatinine 3.57 calcium 8.3 phosphorus 8.0 ferritin 847 bilirubin 1.9 AST 71, ALT 93 LDH 1021 CK 406 CRP 70.8 and procalcitonin 0.58. Pulmonary and nephrology is on board. 07/14/2020 Patient is currently in MICU on mechanical ventilator and sedated. Assist- control 450 FiO2 50% and PEEP of 10 and respiratory 28. Chest x-ray showed stable bilateral lung infiltrates greater on the left. Laboratory data showed WBC 12.2 hemoglobin 8.7 platelets 121 lymphocytes 0.5 D- dimer is 9.42 BUN 96 and creatinine 3.97 calcium 8.4 ferritin 775 total bilirubin 1.7, AST 57 ALT 68 alk phos 87 LDH 1062 CPK 231 CRP 87.2 Patient is still low-dose norepinephrine drip. Continued on enteral feeding. Patient is scheduled for hemodialysis today. Patient is being continued dexamethasone, Eliquis and multivitamins. Pulmonary nephrology is following. 07/15/2020 Patient is currently in the MICU on mechanical ventilator. AC 450, FiO2 50% and PEEP of 8. Chest x-ray showed worsening bilateral lung infiltrates. Patient has been afebrile and requiring norepinephrine low-dose pressor support. Laboratory data showed WBC 11.6 hemoglobin 8.4 RDW 15.7 platelets 132 D-dimer is 9.0 sodium 130 potassium 4.4 bicarb is 22 BUN 84 and creatinine 3.73 ferritin 81 1.6 LDH 1061 CRP 78.3. Patient is being continued on dexamethasone and Eliquis and multivitamins. Continued on enteral tube feeding. Condition unchanged from yesterday. 07/16/2020 Patient is currently on mechanical ventilator and sedated. This is controlled for 50 respiration 28 and PEEP of 8. FiO2 70%. Chest x-ray showed unchanged appearance of patchy opacities involving the left lung and right base. Stable lines and tubes. Overnight patient was hypotensive and started back on Levophed drip. Patient is being dialyzed today. Currently on tube feeding. Laboratory data showed WBC 11.6 hemoglobin 9.5 platelets 134 neutrophils 10.3 and lymphocytes 0.6 D-dimer level is 9.95 Sodium 133 potassium 4.1 BUN 91 creatinine 3.93 ferritin 729 AST 49 ALT 52 alk phos 108 lactic acid 1103 CRP 62.7 07/17/2020 Patient is currently in the MICU. Patient was given sedation holiday yesterday was subsequently he decompensated and hypoxic and was placed back on sedation. On assist-control 450 with FiO2 60% and PEEP of 8. Patient able to tolerate hemodialysis with 2 L ultrafiltration yesterday. Currently on low-dose norepinephrine drip. Chest x-ray showed diffuse pulmonary infiltrates unchanged without any major interval changes. Laboratory data showed WBC 13.0, hemoglobin 8.2, d-dimer 6.05 Sodium 132 potassium 4.2 BUN 76 and creatinine 3.41, LDH 889 and CRP 4.4 Pulmonary and nephrology is on board. 07/18/2020 Patient is MICU currently sedated and paralyzed and on mechanical ventilator. Assist-control 450 FiO2 50% and PEEP of 8. Chest x-ray showed bilateral mul tifocal and confluent opacities consistent with COVID-19 infection. No significant interval change from one day earlier. Laboratory data showed WBC 10.5, hemoglobin 8.5 platelets 129 d-dimer 5.4, fib ular nose and 576, sodium 1:30 potassium 4.1 BUN 84 and a creatinine 3.74 blood sugar is controlled, LDH 855 and CRP 5.2 by Pulmonary nephrology is following. Patient has been afebrile. Tolerating tube feeding. Continued on and abuts the form of ceftriaxone, dexamethasone 6 mg IV daily and added IV Lasix 80 mg every 12 as blood pressure tolerates. Blood cultures grew coagulase-negative staph aureus. 07/19/2020 Patient is currently on mechanical ventilator. Patient failed weaning trials. Gen. surgery was consulted for possible tracheostomy and PEG tube placement On assist-control 450 FiO2 50% and PEEP of 6. Chest x-ray showed bilateral pulmonary infiltrates involving lower lobes without much change. Laboratory data showed WBC 9.1 hemoglobin 8.9 which is 148 d-dimer 6.68 sodium 135 potassium 3.9. 91 and creatinine 4.51 Sputum cultures grew beta hemolytic Streptococcus and Armida albicans. Repeat blood culture have been negative. Patient is being continued on ceftriaxone. 07/20/2020 Patient is currently in the MICU, remains intubated. Patient tolerated sedation holiday for 11 hours and was following simple commands. Patient became tachypneic and agitated and was started back on Diprivan. Chest x-ray showed interval improvement in bilateral airspace infiltrates particularly in the right upper lobe. Tolerating tube feeding. Patient is scheduled for tracheostomy and PEG tube placement. Otherwise patient is being continued on IV Lasix. Continue antibiotics been on ceftriaxone, dexamethasone. Laboratory showed WBC 8.1 hemoglobin 8.1 platelets 126 D-dimer 13.38 Eliquis on hold due to pending surgery. Sodium 133 potassium 3.7 BUN 82 and creatinine 4.5 ferritin 1037, LDH 792 Pulmonary, neurology and general surgery is on board. 07/21/2020 Patient is currently remained medically ventilated. Sedated. Chest x-ray showed interval improvement suggested in the bilateral airspace infiltrates particularly in the right upper lobe. Patient is scheduled for tracheostomy and PEG tube placement today. Laboratory data showed WBC 7.1 hemoglobin 7.4 and platelets 120 Sodium 138 potassium 3.2 BUN 75 creatinine 4.01 Patient is being continued on antibiotics at home ceftriaxone. Continued on deferoxamine and Lasix. Eliquis is on hold due to schedule surgery. 07/22/2020 Patient is currently in the MICU. Status post tracheostomy and PEG tube placement on 07/21/2020 On ventilator via trach, FiO2 50% PEEP of 6. ABG showed pH 7.36, pCO2 40 and pO2 169. Patient is also on low-dose Levophed.. Chest x-ray showed bilateral multifocal and confluent opacities consistent with COVID-19 infection with no significant interval change.. Patient is continued on ceftriaxone with sputum cultures growing strep species. 2 feedings intake started today. Otherwise patient is being continued on dexamethasone 6 g daily and Eliquis to be started once cleared by surgery. Ben chan does have good urine output. Afebrile. Neurology and surgery and pulmonary is on board. 07/23/2020 Patient is currently in the intensive care unit. On mechanical ventilation to the tracheostomy tube. Assist-control 450 FiO2 40% and PEEP of 5. ABG showed pH 7.39 pCO2 43 pO2 149. Patient was given sedation holiday yesterday however patient did not wake up. Neurology was consulted CT brain was ordered. Showed decreased attenuation within the right frontal lobe without cortical increased attenuation which could reflect petechial hemorrhage. Patient is currently not on any anti-Coblation. Eliquis is on hold since 07/19/2020. Hemoglobin 7.4 and platelets 105. D-dimer 8.18. Patient is not on any aspirin and Plavix at this time. PEG tube became plugged when the crescendo oral medications were being instilled through the PEG tube. Surgery was notified and the PACU was removed. Planning for NG tube placement. Otherwise patient is being continued on ceftriaxone for beta-hemolytic streptococcus in the sputum suctioned. Patient had hemodialysis on 07/21/2020 with 2.5 L ultrafiltration. Laboratory data showed sodium 136 potassium 3.5 chloride 104 bicarb 22 BUN 54 and creatin ine 2.6. Patient remained on IV Lasix 80 mg twice daily. Patient does have urine output. A Lasix 40 CRP 5.6 Chest x-ray showed diffuse bilateral groundglass airspace disease/pulmonary edema with current small pleural effusion with adjacent atelectasis. Pulmonary and neurology and nephrology is on board. 07/24/2020 Patient is currently in intensive care unit. Status post tracheostomy. On the [facility] ventilator assist control with tidal volume 4 50 mL, FiO2 40% and PEEP of 5. PEG tube feeding is on hold due to blockages and started on TPN. Off pressor support. Anticoagulation is also on hold. Neurology is following. CT showed repeat it is of subarachnoid hemorrhage associated with abnormal hypodensity posterior laterally in the right frontal lobe was again noted. Not significantly changed.. Possible acute ischemic stroke with small right frontal region and with a mild petechial hemorrhage in the cortical ribbon as per neurology. Patient is being continued on antibiotics the form of ceftriaxone. Continued on IV Lasix 80 mg twice daily. Patient does have urine output. Laboratory data showed diabetes. 4.1 hemoglobin 7.4 BUN 68 and creatinine 3.54 Patient is being followed by neurology, pulmonary and nephrology. 07/25/2020 Patient is currently in the MICU. Status post tracheostomy and PEG tube placement. Patient is able to open his eyes and move extremities with verbal commands.. He does have left-sided eye droop. Neurologist plan for repeat CT scan tomorrow. Patient is also scheduled for AGNIESZKA and PEG tube replacement tomorrow. Currently patient is being continued on TPN. Chest x-ray showed findings similar to prior exam. Correlate for volume overload, pneumonia, edema, renal failure. Patient is being continued Lasix 80 mg twice daily. Also on dexamethasone and anticoagulation is on hold due to areas of subarachnoid hemorrhage and the most recent CT head. Laboratory data showed WBC 2.1, hemoglobin 7.4 and platelets 138 BUN 78 and creatinine 3.65 ferritin 850 LDH 654 and CRP 5.9. Critical care care team, nephrology and neurology is following. Current medications reviewed. Active Medications Generic Name Dose Route Start Last Admin Trade Name Freq PRN Reason Stop Dose Admin Albuterol Sulfate 2 puff 07/05/20 08:00 07/25/20 19:05 Albuterol Hfa Inhaler INHALATION 2 puff RT-TID [facility]UL Administration Aspirin 300 mg 07/24/20 09:00 07/25/20 09:29 Aspirin 300 Mg Supp RECTAL 300 mg DAILY PRAFUL Administration Darbepoetin Rodrigo 40 mcg 07/14/20 11:00 07/21/20 11:49 Darbepoetin Rodrigo 40 Mcg/0.4 Ml Syringe SQ 40 mcg Q7D PRAFUL Administration Dexamethasone Sodium Phosphate 6 mg 07/05/20 09:00 07/25/20 09:29 Dexamethasone Sod Phosphate 10 Mg/Ml 1 Ml Vial IV 6 mg DAILY PRAFUL Administration Furosemide 80 mg 07/18/20 09:00 07/25/20 20:10 Furosemide 10 Mg/Ml 10 Ml Vial IV 80 mg Q12HR [facility] Administration Ceftriaxone Sodium 1 gm/ 50 mls @ 100 mls/hr 07/16/20 09:00 07/25/20 09:29 Sodium Chloride IVPB 100 mls/hr Q24HR [facility] Administration Norepinephrine Bitartrate 8 mg 258 mls @ 12.403 mls/hr 07/21/20 12:45 0 07/25/20 20:06 / Sodium Chloride IV Not Given .[id number] [facility] Protocol 0.05 MCG/KG/MIN Sodium Chloride 1,000 mls @ 10 mls/hr 07/22/20 19:30 07/25/20 18:32 Saline 0.9% IV Not Given .Q24H [facility] Clevidipine 25 mg/ IV Solution 50 mls @ 2 mls/hr 07/24/20 12:15 07/26/20 00:31 IV 7 mg/hr .Q24H [facility] 14 mls/hr Administration Protocol 1 MG/HR Parenteral Vitamin Supplement 1,041 mls @ 55 mls/hr 07/24/20 18:00 07/25/20 13:30 10 ml/ Zinc/Copper/Manganese/ IV 07/26/20 07:59 Not Given Selenium 1 ml/ Parenteral .[id number] [facility] Electrolytes 20 ml/ Potassium Chloride 20 meq/ Amino Acids/ Dextrose Parenteral Vitamin Supplement 1,051 mls @ 55 mls/hr 07/26/20 08:00 10 ml/ Zinc/Copper/Manganese/ IV Selenium 1 ml/ Parenteral .[id number] [facility] Electrolytes 20 ml/ Potassium Chloride 40 meq/ Amino Acids/ Dextrose Insulin Aspart 0 unit 07/11/20 12:00 07/25/20 23:24 Insulin Aspart (Novolog) 100 Unit/Ml Vial SQ 1 unit Q6H PRAFUL Administration Protocol Miscellaneous Information 1 each 07/25/20 05:03 Potassium Replacement Protocol 1 Each Misc MISCELLANE DAILY PRN Per Protocol Protocol Morphine Sulfate 4 mg 07/24/20 12:12 07/25/20 15:54 Morphine Sulfate 4 Mg/Ml Syringe IVP 4 mg Q4HR PRN Administration Pain Pantoprazole Sodium 40 mg 07/05/20 21:00 07/25/20 20:10 Pantoprazole 40 Mg/10 Ml Vial IVP 40 mg BID PRAFUL Administration Objective - Vital Signs Vital signs: Vital Signs Temp 98.2 F 07/25/20 08:00 Pulse 120 H 07/25/20 10:00 Resp 28 H 07/25/20 10:00 BP 130/80 07/25/20 10:00 Pulse Ox 96 07/25/20 10:00 Intake & Output 07/24/20 07/25/20 07/25/20 18:59 06:59 18:59 Intake Total 535.611 8546.533 609.867 Output Total 1745 2260 278 Balance -885.568 -1218.467 331.867 Weight 112 kg Intake: IV 570 100 140 0.9 Normal Saline at KVO 10 100 40 Mvi, Adult No.4 with Vit 360 K 10 ml Trace (Conc-1Ml/ Dose) 1 ml Parenteral Electrolytes 20 ml In Amino Acid 5%-D15w 1,000 ml @ 30 mls/hr IV .Q24H [facility] Rx#:[id number] Potassium Chloride 20 meq 100 In Water For Injection 1 100ml.bag @ 50 mls/hr IVPB Q2H [facility] Rx#: [id number] cefTRIAXone 1 gm In 100 100 Sodium Chloride 0.9% 50 ml @ 100 mls/hr IVPB Q24HR [facility] Rx#:[id number] Intake, IV Titration 289.432 941.533 469.867 Amount Clevidipine Butyrate 25 24.432 226.533 49.867 mg In Empty Bag 1 bag @ 1 MG/HR 2 mls/hr IV .Q24H [facility] Rx#:[id number] Mvi, Adult No.4 with Vit 55 605 220 K 10 ml Trace (Conc-1Ml/ Dose) 1 ml Parenteral Electrolytes 20 ml Potassium Chloride 20 meq In Amino Acid 5%-D15w 1, 000 ml @ 55 mls/hr IV . [id number] [facility] Rx#:[id number] Potassium Chloride 10 meq 100 In Water For Injection 1 100ml.bag @ 100 mls/hr IVPB Q1H [facility] Rx#: [id number] Potassium Chloride 10 meq 100 200 In Water For Injection 1 100ml.bag @ 100 mls/hr IVPB Q1HR [facility] Rx#: [id number] Sodium Chloride 0.9% 1, 110 10 000 ml @ 10 mls/hr IV . Q24H [facility] Rx#:[id number] Output: Urine 1745 2260 278 Other: Voiding Method Indwelling Catheter Indwelling Catheter ABP, PAP, CO, CI - Last Documented Arterial Blood Pressure 118/64 - Exam - Exam -GENERAL: The patient is intubated with a tracheostomy and sedated, well nourished. HEENT: Pupils are round and equally reacting to light. No scleral icterus. No conjunctival pallor. Normocephalic, atraumatic. No pharyngeal erythema. No thyromegaly. CARDIOVASCULAR: S1 and S2 present. No murmurs, rubs, or gallops. PULMONARY: Chest is clear to auscultation, no wheezing or crackles. ABDOMEN: Soft, nontender, nondistended, normoactive bowel sounds. No palpable or ganomegaly. MUSCULOSKELETAL: No joint swelling or deformity. EXTREMITIES: No cyanosis, clubbing, or pedal edema. NEUROLOGICAL: Gross neurological examination did not reveal any focal deficits. SKIN: No rashes. no petechiae. - Labs CBC & Chem 7: 07/25/20 03:48 07/25/20 18:20 Labs: Abnormal Lab Results - Last 24 Hours (Table) 07/24/20 07/24/20 07/24/20 Range/Units 05:31 11:47 17:26 WBC (3.8-10.6) k/uL RBC (4.30-5.90) m/uL Hgb (13.0-17.5) gm/dL Hct (39.0-53.0) % RDW (11.5-15.5) % Plt Count (150-450) k/uL ABG pO2 (83-108) mmHg ABG HCO3 (21-25) mmol/L ABG Total CO2 (19-24) mmol/L ABG O2 Saturation (94-97) % BUN (9-20) mg/dL Creatinine (0.66-1.25) mg/dL Glucose (74-99) mg/dL POC Glucose (mg/dL) 137 H 146 H (75-99) mg/dL Phosphorus (2.5-4.5) mg/dL Ferritin 829.0 H (22.0-322.0) ng/mL Total Bilirubin (0.2-1.3) mg/dL ALT (4-49) U/L Lactate Dehydrogenase (313-618) U/L C-Reactive Protein (<1.0) mg/dL Total Protein (6.3-8.2) g/dL Albumin (3.5-5.0) g/dL 07/24/20 07/25/20 07/25/20 Range/Units 23:52 03:48 03:48 WBC 2.1 L (3.8-10.6) k/uL RBC 2.48 L (4.30-5.90) m/uL Hgb 7.4 L (13.0-17.5) gm/dL Hct 22.7 L (39.0-53.0) % RDW 17.1 H (11.5-15.5) % Plt Count 138 L (150-450) k/uL ABG pO2 (83-108) mmHg ABG HCO3 (21-25) mmol/L ABG Total CO2 (19-24) mmol/L ABG O2 Saturation (94-97) % BUN 78 H (9-20) mg/dL Creatinine 3.65 H (0.66-1.25) mg/dL Glucose 126 H (74-99) mg/dL POC Glucose (mg/dL) 130 H (75-99) mg/dL Phosphorus 6.5 H (2.5-4.5) mg/dL Ferritin (22.0-322.0) ng/mL Total Bilirubin 1.4 H (0.2-1.3) mg/dL ALT 54 H (4-49) U/L Lactate Dehydrogenase 654 H (313-618) U/L C-Reactive Protein 5.9 H (<1.0) mg/dL Total Protein 5.3 L (6.3-8.2) g/dL Albumin 2.9 L (3.5-5.0) g/dL 07/25/20 Range/Units 04:50 WBC (3.8-10.6) k/uL RBC (4.30-5.90) m/uL Hgb (13.0-17.5) gm/dL Hct (39.0-53.0) % RDW (11.5-15.5) % Plt Count (150-450) k/uL ABG pO2 128 H (83-108) mmHg ABG HCO3 27 H (21-25) mmol/L ABG Total CO2 28 H (19-24) mmol/L ABG O2 Saturation 98.7 H (94-97) % BUN (9-20) mg/dL Creatinine (0.66-1.25) mg/dL Glucose (74-99) mg/dL POC Glucose (mg/dL) (75-99) mg/dL Phosphorus (2.5-4.5) mg/dL Ferritin (22.0-322.0) ng/mL Total Bilirubin (0.2-1.3) mg/dL ALT (4-49) U/L Lactate Dehydrogenase (313-618) U/L C-Reactive Protein (<1.0) mg/dL Total Protein (6.3-8.2) g/dL Albumin (3.5-5.0) g/dL Microbiology - Last 24 Hours (Table) 07/22/20 14:45 Catheter Tip Culture - Final Catheter Tip Armida albicans 07/22/20 14:45 Catheter Tip Culture - Final Catheter Tip Armida albicans Assessment and Plan Assessment: Acute Covid pneumonia Acute hypoxic respiratory failure needing mechanical ventilation. Status post tracheostomy and PEG tube placement on 07/21/2020. Altered mental status likely due to toxic metabolic encephalopathy and multiple organ dysfunction. Acute ischemic stroke petechial hemorrhage within the right frontal lobe as per CT brain. Neurology is on board. AGNIESZKA on 07/26/2020 Acute kidney injury Due to ATN. Currently requiring HD Severe metabolic acidosis and hyperkalemia improved with hemodialysis Coagulase-negative staph aureus bacteremia Beta-hemolytic streptococcal for wound cultures. On ceftriaxone. Hypotension/septic shock requiring low-dose norepinephrine. Left upper extremity negative for DVT. Superficial thrombus in the left cephalic vein and left base leg pain Heparin-induced thrombocytopenia. Changed to argatroban and currently on Eliquis. Suspected ischemia of the left hand on anticoagulation and draped Coffee ground vomiting with suspected acute GI bleed Thrombocytopenia Elevated troponin, secondary to renal function impairment, viral infection and hypotension Plan: This is a pleasant 59 years old male who presents with Covid pneumonia, possible bacterial pneumonia/. Continue with mechanical ventilation for pulmonary/critical care team will follow the patient closely. Continue with multiple vitamin zinc and vitamin D . Eliquis on hold . Continue with bicarbonate Keep monitoring hemoglobin and platelets. Infectious disease, GI and cardiology, nephrology team on the case Patient is status post tracheostomy and PEG tube placement Patient was found to have left eyelid droop. CT head showed subarachnoid hemorrhage with right frontal lobe involvement. AGNIESZKA is scheduled for tomorrow. Neurology is on board. Labs and medication were reviewed. Monitor lytes and vitals. DVT and GI prophylaxis. Further recommendations as per clinical course of the patient DVT prophylaxis:Eliquis 2.5mg BID on hold currently GI Prophylaxis: Ppi, Protonix twice a day Prognosis is guarded Time with Patient: Greater than 30
[2020-07-26] MEDS: MORPHINE SULFATE 4 MG/ML SYRINGE IVP PRN ×4 (01:39→20:58)
[2020-07-26 04:05] LABS: Anisocytosis Slight; HCT 24.2 % (39.0-53.0); HGB 8.1 gm/dL (13.0-17.5); MCH 30.8 pg (25.0-35.0); MCHC 33.5 g/dL (31.0-37.0); MCV 92.1 fL (80.0-100.0); Mean Platelet Volume 8.6; Platelet Count 173 k/uL (150-450); RBC 2.63 m/uL (4.30-5.90); RDW 16.6 % (11.5-15.5)
[2020-07-26 04:07] LABS: Albumin 3.1 g/dL (3.5-5.0); C Reactive Protein 5.3 mg/dL (<1.0); Calcium 8.7 mg/dL (8.4-10.2); Magnesium 2.1 mg/dL (1.6-2.3); Phosphorus 5.8 mg/dL (2.5-4.5); Total Bilirubin 1.7 mg/dL (0.2-1.3); Total Protein 5.6 g/dL (6.3-8.2)
[2020-07-26 04:22] LABS: Potassium 4.2 mmol/L (3.5-5.1)
[2020-07-26 04:26] LABS: WBC 1.1 k/uL (3.8-10.6)
[2020-07-26] MEDS: INSULIN ASPART (NovoLOG) 100 UNIT/ML VIAL SQ SCH ×3 (05:44→18:04)
[2020-07-26 05:46] LABS: ABG Base Excess 3.6 mmol/L; ABG HCO3 28 mmol/L (21-25); ABG Oxygen Saturation 98.9 % (94-97); ABG PCO2 43 mmHg (35-45); ABG PH 7.42 (7.35-7.45); ABG PO2 122 mmHg (83-108); ABG TCO2 29 mmol/L (19-24); Allen Test Performed? Yes
[2020-07-26] MEDS: MVI, ADULT NO.4 WITH VIT K 10 ML, TRACE (CONC-1ML/DOSE) 1 ML, PARENTERAL ELECTROLYTES 2... IV SCH ×5 (06:40)
--- NOTE | 2020-07-26 07:11 | XR ---
EXAMINATION TYPE: XR chest 1V portable DATE OF EXAM: 07/26/2020 COMPARISON: 07/25/2020 HISTORY: SOB, Follow Up FINDINGS: Indwelling tubes and catheters are unchanged. Persistent but improving infiltrates throughout both lung palafox. Stable appearance of the cardio-mediastinal structures at this time. Pleural effusion unchanged. IMPRESSION: 1. Persistent but improving infiltrates throughout both lung palafox.Clinical correlation and follow up until resolution is recommended.
[2020-07-26] MEDS: ALBUTEROL HFA INHALER INHALATION SCH ×3 (07:49→20:14)
[2020-07-26] MEDS: PANTOPRAZOLE 40 MG/10 ML VIAL IVP SCH ×2 (08:06→20:45)
[2020-07-26] MEDS: DEXAMETHASONE SOD PHOSPHATE 10 MG/ML 1 ML VIAL IV SCH (08:06)
[2020-07-26] MEDS: FUROSEMIDE 10 MG/ML 10 ML VIAL IV SCH ×2 (08:06→20:45)
[2020-07-26 09:19] LABS: Ferritin 770.8 ng/mL (22.0-322.0)
--- NOTE | 2020-07-26 10:30 | P.PN ---
Subjective Progress Note Date: 07/26/20 Principal diagnosis: Acute hypoxic respiratory failure second to COVId 19 pneumonia The patient is seen today 07/12/2020 in follow-up in the intensive care unit. He remains intubated, sedated on the mechanical ventilator at assist control mode of a rate of 36, tidal volume 450, FiO2 40% and a PEEP of 10. Morning blood gases reveal pO2 of 69, pCO2 41, pH 7.35. He remains sedated on propofol at 60 mcg/kg/m, fentanyl at 1 mcg/kg/h, norepinephrine at 0.09 mcg/kg//min, the patient is currently on 0.9 saline at rate of 50 mL an hour. The patient has been off Nimbex since yesterday. He is continued on Argatroban at 0.5 mcg/kg/m. Being nourished with Nepro at 15 ML's per hour. He did receive hemodialysis yesterday with 1 L removed. Chest x-ray reveals mild bibasilar infiltrates. Sputum cultures positive for beta-hemolytic strep, group C. White count 18.1. Hemoglobin 10.6. Platelet count 141. D-dimer 19.69. Sodium 133. Potassium 4.7. Creatinine 4.14. LDH 1067, C-reactive protein 24. Remains on antibiotics in the form of ceftriaxone. Bronchodilators. Vitamin supplements. Dexamethasone. 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 The platelet count is stable and the platelet count is up to 136. On 07/12/2020, the patient is being seen for follow-up. The patient is a 59-year-old obese male patient with a BMI of 36.2 with known history of obstructive sleep apnea, presented with COVID 19 related pneumonia patient is currently intubated on a mechanical ventilator. The patient has been on a mechanical ventilator since 07/05/2020. 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 During the course of his treatment, the patient developed an acute kidney injury secondary to ATN secondary to "with 19 infection. Urine output was improving and the patient's urine output was in order of 20-25 mL an hour. Due to persistent hyperkalemia and worsening renal function, the patient was started on hemodialysis on 07/10/2020. The potassium level improved post-hemodialysis. The patient also had significant metabolic acidosis and the patient was given bicarb infusion. Electrolytes are being monitored. The patient got dialyzed yesterday and this was his second hemodialysis. Nephrology is on the case. He is currently on Decadron 6 mg IV every 24 hours. His chest x-ray is showing patchy by the pulmonary infiltrates in lower lobes, slightly worsening in the chest x-ray findings on today's evaluation mainly in the peripheries and ET tube is in a good location. The patient remains on a mechanical ventilator assist control mode. He is on Nepro at 60 mL an hour. 07/13/2020, I'm seeing this patient for a follow-up. This is a case of a 59-year-old male patient with Covid 19 related pneumonia and acute kidney injury currently on hemodialysis. Worn-out, the patient is sedated and this morning the patient is currently on propofol running at 6 60 mcg/kg per minute and fentanyl is running at 1 mcg/kg/h and this is the same sedation it was being provided yesterday. The patient is on no paralytics for now. The patient is on a mechanical ventilator, on this morning's evaluation, he is on assist-control at the rate of 28 with a tidal volume of 450 and FiO2 of 50% and PEEP is 10. Blood gases from today showing a pH of 7.37 with a pCO2 of 47 and pO2 of 63. Chest x-ray from today is showing diffuse bilateral pulmonary infiltrates more so in the lower lobes bilaterally. ET tube is in a good location. Comparing this chest x-ray from yesterday, there is no major interval change in the findings are essentially stable. His peak airway pressures 28. His static pressures 24. The patient is is still on Decadron 6 mg IV every 24 hours. D- dimer today's at 13.3, his LDH level is at 1021 and the CRP is at 4.6. Note that his inflammatory markers essentially compatible to yesterday. His echoes at 13.7 with a hemoglobin of 9.2. Platelet count is 112. I took the patient off Agratoban and he was also placed on Eliquis at a dose of 5 mg by mouth twice a day. Noted the patient also is an acute kidney injury. The patient underwent dialysis and the spot he has taken 3 sessions of hemodialysis. He is producing urine output in the order of 20-30 mL an hour. His last session of hemodialysis was yesterday. In terms of his electrolytes, his BUN is at 80 with a creatinine of 3.5 and a sodium of 132 with a potassium of 4.4. He is currently on enteral feeding for dizziness support and is currently on Nepro at the rate of 50 mL an hour. He is currently off Rocephin. He is afebrile. He is requiring low-dose pressors were norepinephrine 30 dose of 0.03 mcg/kg per minute. Otherwise, no other significant events. He is afebrile. Sedation holiday was not done yesterday. IV fluids are running at 0.9 at the rate of 50 mL an hour. 07/14/2020, patient is being seen for follow-up. Sedated and still on a mechanical ventilator, probable resolving. 60 mcg/kg per minute and the patient is also on fentanyl at 1 mcg/kg/h. Adequately sedated. On a mechanical ventilator essentially vent settings being at tidal volume of 450 with an FiO2 of 50% and a PEEP of 10 and a rate of 28. These are essentially the same settings as yesterday. As far as blood gases, pO2 is at 79 with a pCO2 of 45 and a pH is at 7.35. He d-dimer is at 9.42 and the rest of the inflammatory markers show an LDH of 1062 which is stable compared to yesterday and a CRP of 87, slightly elevated compared to yesterday. His CPK is down to 231. His pro calcitonin level was at 0.58 and note that the patient has dialysis-dependent renal failure. As far as his creatinine, his creatinine today is at 3.97 with a mean of 96. He did not receive dialysis yesterday. His urine output is in order of 30-40 mL an hour and the fluid balance has been +1.1 L over the past 24 hours. His chest x-ray from today is showing lower lobe pulmonary infiltrates, essentially stable compared to yesterday. ET tube remains in excellent location. IV fluids are running at 20 cc an hour of normal saline. He is afebrile. He is tolerating his enteral feeding for nutritional support. Norepinephrine infusion which is running at 0.05 mcg/kg per minute. He remains on Decadron 6 mg IV every 24 , platelet count is stable at 121 and 11 avoiding heparin. Patient holiday yesterday was ultimately aborted as the patient became quite agitated after several hours without any meaningful neurological response. 07/15/2020, the patient is being seen for a follow-up. Sedated with propofol running at 60 mcg/kg per minute and fentanyl is at 1 mcg/kg/h and the level of sedation essentially the same as yesterday. Remains on a mechanical ventilator. He is an assist-control mode at the rate of 24 with a tidal volume of 450 and a PEEP of 8 with a FiO2 of 50%. He had a blood gas showing pH of 7.33 with a pCO2 of 46 and pO2 of 73. Chest x-ray is unchanged, probably slightly worse on the left in terms of that the patient is seeing on today's chest x-ray. ET tube remains in a good location. Inflammatory markers from today show a d-dimer of 9 with a LDH level of 1061 and a CRP of 78, comparable to yesterday. His pro calcitonin level was low. He got dialyzed yesterday. I attempted to wean down the PEEP to 6 and this was not successful and the patient desaturated in the P EEP was brought back up to 8 yesterday. Meanwhile, he is afebrile. He is producing urine output in the order of 20-30 mL an hour. He is on normal saline at the rate of 20 mL an hour. He remains on Decadron 6 mg IV to 24 hours. His platelet count is 132 which is essentially stable and improved compared to yesterday. In terms of pressors, the patient is currently on norepinephrine infusion at 0.04 mcg/kg per minute. I will today's condition essentially unchanged and his condition essentially the same as compared to yesterday 07/16/2020, remains on a mechanical ventilator on propofol at the rate of 60 mcg/kg per minute and fentanyl is at 2 mcg/kg/h. He remains off paralytics. At around 6:00 this morning, the patient had some oxygen desaturation. Based on that, I increased his FiO2 up to 60%. Currently is an assist-control mode rate of 28 with a tidal volume of 450 and a PEEP of 8 chest x-ray still showing diffuse bilateral pulmonary infiltrates left more than right. The blood gas shows a pH of 7.31 with a pCO2 of 45 and pO2 of 68. This was on FiO2 of 70%. Inflammatory markers show a d-dimer of 9.9 with a LDH level of 1103 and a CRP level of 62. The patient is on Decadron 6 mg IV every 24 hours. The patient is also on anticoagulation with Eliquis 2.5 mg by mouth twice a day. His platelet counts is 135. The chest x-ray findings are obviously worse and there is some worsening in the evaluation in the right lung compared to yesterday. Note that the patient did not get dialyzed yesterday. Today is a dialysis day for him. He is also on norepinephrine infusion running at 0.08 mcg/kg per minute. There is enough to maintain his blood pressure. He is receiving enteral feeding for discharge support and currently is on Nepro at a rate of 50 mL an hour which is currently at goal. No other significant events. Is adequately sedated for now. 07/17/2020, the patient is being seen for a follow-up. This morning he is on a combination of propofol and fentanyl running at 60 mics for propofol and 1 g for fentanyl. He was given a sedation holiday and she was able to tolerate initiated subsequently he decompensated and became hypoxic and he had to be placed back on sedation. Noted the patient became asynchronous. This morning, he is back on a mechanical ventilator mode at the rate of 28 with a tidal volume of 450 and her FiO2 is at 60% with a PEEP of 8. He underwent dialysis yesterday with a total of 2 liters of ultrafiltration. Note that he was able to tolerated dialysis without any major issues. He is on a minimal dose of norepinephrine infusion running at 0.06 mcg/kg per minute for blood pressure control. On today's evaluation, peak air pressures around 27. The blood gases from today shows a pH of 7.29 with a pCO2 of 40 and pO2 of 99 and this was on FiO2 of 60%. As mentioned, his PEEP is at 8. Chest x-ray still showing diffuse breath and pulmonary infiltrates unchanged without any major interval improvement or worsening. White cell count is at 50 with a hemoglobin of 8.2. Creatinine is at 3.4 and a urine output is in order of 30 mL an hour. No plans for hemodialysis today. He is receiving enteral feeding for nutritional support with Nepro at the rate of 50 mL an hour. He is stooling. Still sedation dependent. Unable to wean him off sedation because of a 6 and mean oxygen desaturations. I have approach the and the family with a possibility of ainsertion of a tracheostomy tube and a PEG tube for prolonged need of mechanical ventilation and failure for weaning. The patient has been intubated since 07/05/2020. The inflammatory markers from today shows an LDH level of 889, CRP is at 6 and the d-dimer is at 6.05. The patient has palpable pulses in his left upper extremity. She of his fingers are necrotic and the tip including the index, the platelet counts are stable and the patient is currently on Eliq uis 2.5 mg by mouth twice a day. Or 2020, the patient remains sedated with a combination of propofol and fentanyl running at 50 mcg/kg per minute for propofol and 1 mcg/kg per hour for fentanyl. He is sedated. In fact is deeply sedated. We are going to proceed with a sedation holiday on this patient today. He remains on a mechanical ventilator. He remains on a assist-control rate of 28, tidal volume of 450, FiO2 of 50% with a PEEP of 8. Attempts to wean the PEEP further failed and the patient became more hypoxic. As such, the patient is living At 8. This patient is a 7.26 with a pCO2 of 48 and pO2 of 71 today's blood gas. His chest x-ray showing stable bilateral pulmonary infiltrates essentially involving the lower lobes. ET tube is in a good location. Note that the patient is producing urine output in the order of 8200 mL an hour. His net fluid balance over the past 24 hours has been -83 mL. He has had a with a positive fluid balance for today. The findings on the case. The intent of the dialysis 3 times a week. His last dialysis was done on Sunday which is 2 days ago. His creatinine is up to 3.7 with a BUN of 84. Rest of the electrolytes are normal. Affect is running a lower sodium level of 1:30 with a potassium level of 4.1. Serum bicarbs at 20. In terms of his COVID-19 related pneumonia, the patient has a LDH level of 855, CRP level of 5.2 and his most recent d-dimer is at 5.4. He remains on steroids and he is on Decadron 6 mg IV every 24 hours. He did have a component of hit syndrome. This was related to heparin. He did receive Agratroban was ultimately discontinued once the patient's stated count picked up and it's platelet count is currently at 129. He does have necrotic fingers in his left upper extremity. Adequate pulses in the radial. No new vascular insults noted on today's examination. He is receiving enteral feeding for nutritional support and is currently on Nepro at the rate of 10 mL an hour. He is stooling. He is on Rocephin for strep in history of the blood cultures on 2 separate occasions. Otherwise, the blood cultures positive for coagulase-negative staph. Patient was reevaluated today on 07/19/2020, remains intubated and mechanically ventilated, he is off sedation and he is not showing any signs of neurological not responding to any stimuli. Patient is on assist control rate of 24th of volume 450 FiO2 50% and PEEP of 6. ABG showed a pO2 of 81 pCO2 41 pH of 7.31 patient is on enteral feeding. And he may undergo dialysis. We plan to have a tracheostomy and PEG tube placement in this patient, and he is basically a failure to wean. Today the sedation is placed on hold. Chest x-ray continues to show bilateral pulmonary infiltrates involving lower lobes. Endotracheal tube is in the proper position. Patient is making good urine, however his renal functioning seems to be getting worse. Electrolytes are normal. BUN is 91 creatinine 4.51 LDH is 893 liver enzymes are borderline elevated, C-reactive protein is 4.2 d-dimer 6.68. WBC count is 9.1 hemoglobin is 8.9 On 07/20/2020 patient seen in follow-up in intensive care unit, he was given daily traction of sedation yesterday, and his sedation was on hold for several hours and the patient never woke up over open his eyes or follow any commands, and as the day went on he started breathing fast, started desaturated and get agitated and was he was placed back on sedation on which she remains today, currently on Diprivan at 40 mics per kilo per minute, and fentanyl infusion at 1 mics per kilo per minute, and levo fed has been discontinued, he is on assist- control mode of ventilation with assist control rate of 24, tidal volumes of 4 50, FiO2 of 50% and PEEP of 6, this morning's blood gas shows pO2 of 92, pCO2 42, and pH is 7.32. He is in sinus mechanism, slightly tachycardic, his tube feedings are currently on hold in case of possibility of tracheostomy and PEG tube insertion however were still awaiting a response from his family on the decision in regards to proceeding with trach and PEG placement, today he is receiving hemodialysis treatment, and a 3 L in fluid was removed today. In terms of urine output he has been making urine in the order of 50-70 ML per hour, he remains on Lasix 80 mg twice daily, he remains on Rocephin for evidence of a beta-hemolytic strep in the sputum cultures, his follow-up sputum culture only showed Armida. History of resting comfortably in bed, he remains on IV dexamethasone 6 mg daily, has been off the levofed. Breasts labs have been reviewed, his white blood cell count is 8.1, hemoglobin is 8.1, his platelet count is 126, d-dimer is 13.3, sodium is 133, potassium 3.7, his renal function is relatively stable, with BUN of 82, and creatinine 4.51. These LDH is 792, CRP is 48. His had no acute events overnight, we spoke to his daughter yesterday in regards to patient's condition, and to discuss tracheostomy and PEG tube insertion, awaiting response from the family on their decision and the daughter indicated that patient had poor quality of life to start with and the were not sure if the workup and consent to the trach and PEG On 07/21/2000 patient seen in follow-up in the intensive care unit, yesterday he tolerated 11 hours of sedation holiday, and he was starting to follow simple commands, however is that day went on he was becoming more agitated and tachypneic, and he was placed back on sedation, currently on Diprivan at 40 mics per kilo per minute, and 0.9 at KVO, he remains intubated, on assist control mode of ventilation, with a rate of 24, Tylox 450, FiO2 of 50% and PEEP of 6, this morning's blood gases show pO2 133, pCO2 of 41, and pH is 7.38. Patient is resting comfortably, appears to be in no acute distress, he is not on any vasoactive drugs, no vasopressors, she is in sinus rhythm sinus tach with a rate of 90-106 BPM, hemodialysis treatment this morning, and attended have liters of fluid was taken off, his vital signs have been stable overnight, no fever or chills, lung sounds are diminished. She also remains on IV Lasix 80 mg twice da waylon, patient is producing urine in the order of 30-60 ML per hour, and she is in -4.1 L over the last 24 hours with additional -2.49 fluid balance since midnight last night. Chest x-ray shows interval improvement in bilateral airspace infiltrates particularly within the right upper lobe. Today's labs have been reviewed, showing white blood cell count 7.1, hemoglobin of 7.4, platelet count is 120, sodium is 130, potassium is 3.2, chloride is 104, CO2 of 23, BUN of 75 and creatinine of 4.01. Patient remains on Rocephin for beta-hemolytic strep in the sputum, repeat culture of the sputum showed only Armida. He is tolerating tube feedings which are on hold for tracheostomy and PEG tube placement which is scheduled for today. On 07/22/2020 patient seen in follow-up in intensive care unit, he remains sedated and trach to the ventilator, on assist-control mode of ventilation with a rate of 24, her lungs were 50, FiO2 50% and PEEP of 6, his blood gas shows pO2 of 169, pCO2 40, pH of 7.36, patient is currently on Diprivan at 55 mics per kilo per minute, he is on 0.9 normal saline at 10 ML per hour, Levophed that he is at 0.02 mics per kilo per minute. Patient is having hemodialysis treatment right now. Patient received tracheostomy and PEG tube yesterday. His hemodialysis access was switched to right subclavian approach. He still has a central line in his groin which will need to be switched to a PICC line. Today's chest x-ray showed bilateral multifocal and confluent opacities consistent with COVID-19 infection with no significant interval change. Vital signs have been stable, his sat 98% on the above mentioned settings, requiring small dose of Levafed. 2 feedings will be started sometime today, he is on Rocephin for evidence of 5 beta-hemolytic strep in the sputum, follow-up sputum culture only showed Armida albicans. She had no acute events overnight. He re leonila on Decadron 6 mg daily, he is Eliquis will be started tonight if it's okay with surgery. No other acute events overnight, and -2.4 L fluid balance over the last 24 hours. He does remains generally swollen. On 07/23/2020 patient seen in follow-up, in the intensive care unit, patient received tracheostomy and PEG tube insertion on 07/21/2020, he remains trached to the ventilator and is currently on assist control mode of ventilation with a rate of 24, tacrolimus 450, FiO2 45% and PEEP of 5, this morning's blood gas shows pO2 of 149, pCO2 of 43, and pH of 7.39, he was given a sedation holiday yesterday, however he did not wake up or start following commands, neurology completed a brain CT which showed decreased attenuation within the high right frontal lobe without cortical increased attenuation which could reflect petechial hemorrhage, patient is currently not on any anticoagulation, is Eliquis has been on hold since 07/19/2020 at 11:00 in the morning. His hemoglobin today 7.4, his platelet count is 115, his d-dimer is currently is 8.18 on this morning's labs. Patient is not on any aspirin, or Plavix or any other anticoagulants. Patient was resedated he is currently on 35 mics per kilo per minute of Diprivan, and 0.9 and is infusing at KVO, no other infusions. Hemodynamically he has remained stable, he is in sinus rhythm sinus tachycardia on the monitor, this morning his PEG tube became plugged when the crushed oral medications were being instilled through the PEG tube, surgery was notified, and the PEG tube was removed, NG tube will be inserted, however no tube feedings or oral medications are to be put down the NG tube at this point. Patient remains on Rocephin for evidence of beta-hemolytic strep in the sputum, yesterday his central line was discontinued and the tip was sent for culture and the culture is pending at this time, however overnight has been no fever, his vital signs have remained stable. He had hemodialysis on 07/21/2020 with removal of 2.5 L in fluids. Today's labs show sodium of 136, potassium 3.5, chloride is 104, CO2 is 22, BUN 54, and creatinine is 2.6, his renal profile is improving, and patient remains on IV Lasix 80 mg twice daily, he is producing urine in the order of 35-60 ML per hour. No other acute events overnight, neurology is following, and is to comment on the findings of the CT of the brain. Today's chest x-ray shows continued diffuse bilateral groundglass airspace disease/pulmonary edema, with continue small effusions with adjacent atelectasis. LDH is down to 640, and CRP is 5.6 On 07/24/2020 patient seen in follow-up in the intensive care unit, he remains trached to the ventilator on assist control mode of ventilation with a rate of 24, tidal is 450, FiO2 of 45% and PEEP of 5, this morning's blood gas shows pO2 of 150; pCO2 40, pH of 7.4, and FiO2 was dropped down to 40% based on the above mentioned blood gases, IV fluids are 0.9 normal saline at a rate of 10 ML per hour, and TPN is infusing at 30 ML per hour, not on any vasopressor support, and patient has been off sedation since yesterday morning, were told by the nursing staff that at times he was noted to be attempting to wiggle toes on command. Remains quite lethargic right now, she is not opening eyes to voice, he is not following commands, he is very weak. Chest x-ray today shows diffuse bilateral infiltrates. Tracheostomy hemodialysis catheter appear to be in appropriate positions, NG tube has been inserted yesterday, and peg tube was discontinued, and surgeries plan on replacing the PEG tube on Sunday. Neurology is following, patient has no signs of obvious seizure activity, he does have cough and a gag reflex. But remains very obtunded, today's labs have been reviewed, showing white blood cell count of 4.1, hemoglobin of 7.4, electrolytes were within normal limits, BUN is 68, and creatinine is 3.54. Patient remains on IV Lasix 80 mg twice daily, is in -856 over the last 24 hours, he is tolerating tube feedings, no diarrhea noted. Yesterday his d-dimer came back at 8.18. Patient remains off Eliquis, and he received 300 mg of rectal aspirin per neurology. His most recent brain CT showed previously noted area of subarachnoid hemorrhage associated with abnormal hypodensity posterior laterally in the right frontal lobe was again noted, not significantly changed. Neurology thinks patient has suffered acute ischemic stroke with a small right frontal region with mild petechial hemorrhage in the cortical ribbon On 07/26/2020 patient seen in follow-up in the intensive care unit, he remains trached to the ventilator, assist control mode of ventilation with a rate of 20 with tidal volumes were 450, FiO2 of 40% and PEEP of 5, displays blood gas shows pO2 of 122, pCO2 of 43, and pH of 7.42. He is 1.9 normal seen at 10 mL an hour, TPN is a 55 ML per hour, Cleviprex is a 7 mg per hour. He has been off Diprivan and for several days now, he just has a morphine sulfate for discomfort on as needed basis, he is waking up to touch and sometimes he follows simple commands, but he is extremely weak and unable to squeeze with his hands on command. His tube feedings have been on hold and he is supposed to have a PEG tube reinserted today, NG tube is in place to low intermittent suction a total of 450 ML of gastric drainage in the last 24 hours, urine output has been in the order of 100-200 ML per hour. He remains on IV Lasix at 80 mg every 12 hours, he is maintaining negative fluid balance of 1.5 L over the last 24 hours. Has been afebrile. Today's chest x-ray shows persistent but improving infiltrates throughout both lung palafox. Today's labs show white blood cell count of 1.1, hemoglobin of 8.4, d-dimer is 11.69, patient has remained off anticoagulation for the PEG tube reinsertion today, sodium is 142, potassium is 4.2, chloride is 102, BUN is 90, creatinine is 3.54, AST is 72, ALT is 82. He is on IV Rocephin for evidence of beta-hemolytic strep in the sputum, and central line catheter tip was positive for Armida albicans. Patient has had no fever or chills. Partially patient has suffered an acute stroke with small subarachnoid hemorrhage, cardiology has been consulted for possibility if AGNIESZKA, which cardiology felt was not needed at this time. No other acute events overnight, no fever or chills, patient has not been able to receive his oral medications for high blood pressure, and has required Cleviprex. Objective - Vital Signs Vital signs: Vital Signs Temp 98.5 F 07/26/20 08:00 Pulse 113 H 07/26/20 09:00 Resp 21 07/26/20 09:00 BP 132/79 07/26/20 09:00 Pulse Ox 100 07/26/20 09:00 Intake & Output 07/25/20 07/26/20 07/26/20 18:59 06:59 18:59 Intake Total 2304.851 858.800 295 Output Total 2287 2460 500 Balance 17.851 -1601.200 -205 Weight 107.8 kg Intake: IV 230 715 225 0.9 Normal Saline at KVO 130 110 10 Mvi, Adult No.4 with Vit 605 165 K 10 ml Trace (Conc-1Ml/ Dose) 1 ml Parenteral Electrolytes 20 ml Potassium Chloride 20 meq In Amino Acid 5%-D15w 1, 000 ml @ 55 mls/hr IV . [id number] [facility] Rx#:[id number] cefTRIAXone 1 gm In 100 50 Sodium Chloride 0.9% 50 ml @ 100 mls/hr IVPB Q24HR [facility] Rx#:[id number] Intake, IV Titration 2074.851 143.800 70 Amount Clevidipine Butyrate 25 165.268 143.800 50 mg In Empty Bag 1 bag @ 1 MG/HR 2 mls/hr IV .Q24H [facility] Rx#:[id number] Mvi, Adult No.4 with Vit 1214.583 K 10 ml Trace (Conc-1Ml/ Dose) 1 ml Parenteral Electrolytes 20 ml Potassium Chloride 20 meq In Amino Acid 5%-D15w 1, 000 ml @ 55 mls/hr IV . [id number] [facility] Rx#:[id number] Mvi, Adult No.4 with Vit 495 K 10 ml Trace (Conc-1Ml/ Dose) 1 ml Parenteral Electrolytes 20 ml Potassium Chloride 40 meq In Amino Acid 5%-D15w 1, 000 ml @ 55 mls/hr IV . Q19H7M [facility] Rx#:[id number] Potassium Chloride 10 meq 200 In Water For Injection 1 100ml.bag @ 100 mls/hr IVPB Q1HR [facility] Rx#: [id number] Sodium Chloride 0.9% 1, 20 000 ml @ 10 mls/hr IV . Q24H [facility] Rx#:[id number] Output: Gastric Drainage 400 50 Urine 1887 2410 500 Other: Voiding Method Indwelling Catheter Indwelling Catheter ABP, PAP, CO, CI - Last Documented Arterial Blood Pressure 118/64 - Exam GENERAL EXAM: Sedated, morbidly obese 51-year-old white male, trached to the ventilator, on assist-control mode of ventilation with a 40% PEEP of 5, comfortable in no apparent distress. HEAD: Normocephalic/atraumatic. EYES: Normal reaction of pupils, equal size. Conjunctiva pink, sclera white. NOSE: Clear with pink turbinates. THROAT: No erythema or exudates. NECK: No masses, no JVD, no thyroid enlargement, no adenopathy. Midline tracheo stomy connected to the ventilator CHEST: No chest wall deformity. Symmetrical expansion. Right subclavian permacath in place and patient is receiving hemodialysis LUNGS: Equal air entry with no crackles, wheeze, rhonchi or dullness. CVS: Regular rate and rhythm, normal S1 and S2, no gallops, no murmurs, no rubs ABDOMEN: Soft, nontender. No hepatosplenomegaly, normal bowel sounds, no guarding or rigidity. PEG tube in place EXTREMITIES: No clubbing, generalized edema no cyanosis, 2+ pulses and upper and lower extremities. Patient has black fingertips on his left hand MUSCULOSKELETAL: Muscle strength and tone normal. Right groin temporary hemodialysis catheter in place SPINE: No scoliosis or deformity SKIN: No rashes CENTRAL NERVOUS SYSTEM: Sedated, intubated. No focal deficits, tone is normal in all 4 extremities. - Labs CBC & Chem 7: 07/26/20 02:56 07/26/20 02:56 Labs: Abnormal Lab Results - Last 24 Hours (Table) 07/25/20 07/25/20 07/25/20 Range/Units 03:48 12:05 17:26 WBC (3.8-10.6) k/uL RBC (4.30-5.90) m/uL Hgb (13.0-17.5) gm/dL Hct (39.0-53.0) % RDW (11.5-15.5) % D-Dimer (<0.60) mg/L FEU ABG pO2 (83-108) mmHg ABG HCO3 (21-25) mmol/L ABG Total CO2 (19-24) mmol/L ABG O2 Saturation (94-97) % BUN (9-20) mg/dL Creatinine (0.66-1.25) mg/dL Glucose (74-99) mg/dL POC Glucose (mg/dL) 155 H 174 H (75-99) mg/dL Phosphorus (2.5-4.5) mg/dL Ferritin 850.3 H (22.0-322.0) ng/mL Total Bilirubin (0.2-1.3) mg/dL AST (17-59) U/L ALT (4-49) U/L Lactate Dehydrogenase (313-618) U/L C-Reactive Protein (<1.0) mg/dL Total Protein (6.3-8.2) g/dL Albumin (3.5-5.0) g/dL 07/25/20 07/26/20 07/26/20 Range/Units 23:18 02:56 02:56 WBC 1.1 L* (3.8-10.6) k/uL RBC 2.63 L (4.30-5.90) m/uL Hgb 8.1 L (13.0-17.5) gm/dL Hct 24.2 L (39.0-53.0) % RDW 16.6 H (11.5-15.5) % D-Dimer (<0.60) mg/L FEU ABG pO2 (83-108) mmHg ABG HCO3 (21-25) mmol/L ABG Total CO2 (19-24) mmol/L ABG O2 Saturation (94-97) % BUN 90 H (9-20) mg/dL Creatinine 3.54 H (0.66-1.25) mg/dL Glucose 120 H (74-99) mg/dL POC Glucose (mg/dL) 133 H (75-99) mg/dL Phosphorus 5.8 H (2.5-4.5) mg/dL Ferritin 770.8 H (22.0-322.0) ng/mL Total Bilirubin 1.7 H (0.2-1.3) mg/dL AST 72 H (17-59) U/L ALT 82 H (4-49) U/L Lactate Dehydrogenase 719 H (313-618) U/L C-Reactive Protein 5.3 H (<1.0) mg/dL Total Protein 5.6 L (6.3-8.2) g/dL Albumin 3.1 L (3.5-5.0) g/dL 07/26/20 07/26/20 Range/Units 02:56 05:40 WBC (3.8-10.6) k/uL RBC (4.30-5.90) m/uL Hgb (13.0-17.5) gm/dL Hct (39.0-53.0) % RDW (11.5-15.5) % D-Dimer 11.69 H (<0.60) mg/L FEU ABG pO2 122 H (83-108) mmHg ABG HCO3 28 H (21-25) mmol/L ABG Total CO2 29 H (19-24) mmol/L ABG O2 Saturation 98.9 H (94-97) % BUN (9-20) mg/dL Creatinine (0.66-1.25) mg/dL Glucose (74-99) mg/dL POC Glucose (mg/dL) (75-99) mg/dL Phosphorus (2.5-4.5) mg/dL Ferritin (22.0-322.0) ng/mL Total Bilirubin (0.2-1.3) mg/dL AST (17-59) U/L ALT (4-49) U/L Lactate Dehydrogenase (313-618) U/L C-Reactive Protein (<1.0) mg/dL Total Protein (6.3-8.2) g/dL Albumin (3.5-5.0) g/dL Assessment and Plan Plan: Assessment: #1. Acute hypoxic respiratory failure secondary to COVID-19 pneumonia. Patient received toci and convalescent plasma., Patient is status post tracheostomy and PEG tube placement on 07/21/2020. #2. Neutropenia, rule out possibility of fungal infection, cover the patient with Eraxis #3. Acute ischemic stroke, in right frontal region with mild petechial hemorrhage in the cortical ribbon #4. Acute kidney injury requiring dialysis, improving #5. Altered mental status, related to toxic metabolic encephalopathy, severe, related to multiple organ dysfunction #6. Possible petechial hemorrhage within the right frontal lobe, seen on the CT of the brain, neurology is following #7. Severe metabolic acidosis, improved and resolved after dialysis. #8. Hyperkalemia secondary to above, improved with hemodialysis #9. Benign essential hypertension. #10. Superficial vein thromboses and left cephalic vein and left basilic vein #11. Heparin-induced thrombocytopenia, patient was on Argatroban and Eliquis which are on hold right now #12. History of obstructive sleep apnea syndrome #13. Morbid obesity #14. Increased d-dimer related to COVID-19, patient was started on Eliquis which will be restarted after his surgical procedures #15. Plugged PEG tube, the PEG tube was discontinued today at the bedside on 07/23/2020, we will insert NG tube, we'll hold oral feedings right now Plan: Drop FiO2 down to 30%, keep PEEP at 5 Today's chest x-ray shows improvement in appearance of bilateral infiltrates Continue holding sedation Keep Eliquis on hold, keep oral meds on hold Decrease Decadron to 4 mg daily Continue Rocephin, we will add Eraxis for possibility of fungal infection Send blood cultures TPN can be discontinued once the patient is able to receive tube feedings via the PEG tube Restart oral antihypertensives once we're able to use a PEG tube and discontinue the Cleviprex TREASURY ASSISTANT to arrange LTAC placement possibly in the next 48 hours follow up chest x-ray in follow-up labs tomorrow Overall prognosis is guarded I performed a history & physical examination of the patient and discussed their management with my nurse practitioner, Nelia Conley. I reviewed the nurse pra ctitioner's note and agree with the documented findings and plan of care. Lung sounds are positive for diminished breath sounds The findings and the impression was discussed with the patient. I attest to the documentation by the nurse practitioner. Time with Patient: Greater than 30
[2020-07-26] MEDS ORDERED: ANIDULAFUNGIN 200 MG in SODIUM CHLORIDE 0.9% 200 ML IVPB ONE (11:00)
--- NOTE | 2020-07-26 11:04 | P.PN ---
Subjective Patient is seen in follow-up for acute kidney injury. Maintained on IV Lasix. Nonoliguric. Renal function stable. Receiving TPN. PEG tube to be changed today. Vital signs are stable. General: No JVD. HEENT: Tracheostomy noted. HEART: Rate and Rhythm are regular. ABDOMEN: No distention. EXTREMITITES: No gross edema. Objective - Vital Signs Vital signs: Vital Signs Temp 98.5 F 07/26/20 08:00 Pulse 112 H 07/26/20 10:00 Resp 19 07/26/20 10:00 BP 116/73 07/26/20 10:00 Pulse Ox 99 07/26/20 10:00 Intake & Output 07/25/20 07/26/20 07/26/20 18:59 06:59 18:59 Intake Total 2304.851 858.800 360 Output Total 2287 2460 750 Balance 17.851 -1601.200 -390 Weight 107.8 kg Intake: IV 230 715 280 0.9 Normal Saline at KVO 130 110 10 Mvi, Adult No.4 with Vit 605 220 K 10 ml Trace (Conc-1Ml/ Dose) 1 ml Parenteral Electrolytes 20 ml Potassium Chloride 20 meq In Amino Acid 5%-D15w 1, 000 ml @ 55 mls/hr IV . [id number] [facility] Rx#:[id number] cefTRIAXone 1 gm In 100 50 Sodium Chloride 0.9% 50 ml @ 100 mls/hr IVPB Q24HR [facility] Rx#:[id number] Intake, IV Titration 2074.851 143.800 80 Amount Clevidipine Butyrate 25 165.268 143.800 50 mg In Empty Bag 1 bag @ 1 MG/HR 2 mls/hr IV .Q24H [facility] Rx#:[id number] Mvi, Adult No.4 with Vit 1214.583 K 10 ml Trace (Conc-1Ml/ Dose) 1 ml Parenteral Electrolytes 20 ml Potassium Chloride 20 meq In Amino Acid 5%-D15w 1, 000 ml @ 55 mls/hr IV . [id number] [facility] Rx#:[id number] Mvi, Adult No.4 with Vit 495 K 10 ml Trace (Conc-1Ml/ Dose) 1 ml Parenteral Electrolytes 20 ml Potassium Chloride 40 meq In Amino Acid 5%-D15w 1, 000 ml @ 55 mls/hr IV . Q19H7M [facility] Rx#:[id number] Potassium Chloride 10 meq 200 In Water For Injection 1 100ml.bag @ 100 mls/hr IVPB Q1HR [facility] Rx#: [id number] Sodium Chloride 0.9% 1, 30 000 ml @ 10 mls/hr IV . Q24H [facility] Rx#:[id number] Output: Gastric Drainage 400 50 Urine 1887 2410 750 Other: Voiding Method Indwelling Catheter Indwelling Catheter Indwelling Catheter ABP, PAP, CO, CI - Last Documented Arterial Blood Pressure 118/64 - Labs CBC & Chem 7: 07/26/20 02:56 07/26/20 02:56 Labs: Abnormal Lab Results - Last 24 Hours (Table) 07/25/20 07/25/20 07/25/20 Range/Units 03:48 12:05 17:26 WBC (3.8-10.6) k/uL RBC (4.30-5.90) m/uL Hgb (13.0-17.5) gm/dL Hct (39.0-53.0) % RDW (11.5-15.5) % D-Dimer (<0.60) mg/L FEU ABG pO2 (83-108) mmHg ABG HCO3 (21-25) mmol/L ABG Total CO2 (19-24) mmol/L ABG O2 Saturation (94-97) % BUN (9-20) mg/dL Creatinine (0.66-1.25) mg/dL Glucose (74-99) mg/dL POC Glucose (mg/dL) 155 H 174 H (75-99) mg/dL Phosphorus (2.5-4.5) mg/dL Ferritin 850.3 H (22.0-322.0) ng/mL Total Bilirubin (0.2-1.3) mg/dL AST (17-59) U/L ALT (4-49) U/L Lactate Dehydrogenase (313-618) U/L C-Reactive Protein (<1.0) mg/dL Total Protein (6.3-8.2) g/dL Albumin (3.5-5.0) g/dL 07/25/20 07/26/20 07/26/20 Range/Units 23:18 02:56 02:56 WBC 1.1 L* (3.8-10.6) k/uL RBC 2.63 L (4.30-5.90) m/uL Hgb 8.1 L (13.0-17.5) gm/dL Hct 24.2 L (39.0-53.0) % RDW 16.6 H (11.5-15.5) % D-Dimer (<0.60) mg/L FEU ABG pO2 (83-108) mmHg ABG HCO3 (21-25) mmol/L ABG Total CO2 (19-24) mmol/L ABG O2 Saturation (94-97) % BUN 90 H (9-20) mg/dL Creatinine 3.54 H (0.66-1.25) mg/dL Glucose 120 H (74-99) mg/dL POC Glucose (mg/dL) 133 H (75-99) mg/dL Phosphorus 5.8 H (2.5-4.5) mg/dL Ferritin 770.8 H (22.0-322.0) ng/mL Total Bilirubin 1.7 H (0.2-1.3) mg/dL AST 72 H (17-59) U/L ALT 82 H (4-49) U/L Lactate Dehydrogenase 719 H (313-618) U/L C-Reactive Protein 5.3 H (<1.0) mg/dL Total Protein 5.6 L (6.3-8.2) g/dL Albumin 3.1 L (3.5-5.0) g/dL 07/26/20 07/26/20 Range/Units 02:56 05:40 WBC (3.8-10.6) k/uL RBC (4.30-5.90) m/uL Hgb (13.0-17.5) gm/dL Hct (39.0-53.0) % RDW (11.5-15.5) % D-Dimer 11.69 H (<0.60) mg/L FEU ABG pO2 122 H (83-108) mmHg ABG HCO3 28 H (21-25) mmol/L ABG Total CO2 29 H (19-24) mmol/L ABG O2 Saturation 98.9 H (94-97) % BUN (9-20) mg/dL Creatinine (0.66-1.25) mg/dL Glucose (74-99) mg/dL POC Glucose (mg/dL) (75-99) mg/dL Phosphorus (2.5-4.5) mg/dL Ferritin (22.0-322.0) ng/mL Total Bilirubin (0.2-1.3) mg/dL AST (17-59) U/L ALT (4-49) U/L Lactate Dehydrogenase (313-618) U/L C-Reactive Protein (<1.0) mg/dL Total Protein (6.3-8.2) g/dL Albumin (3.5-5.0) g/dL Assessment and Plan Plan: Assessment: 1. Acute kidney injury secondary to ATN secondary to covid-19 infection. Nonoliguric. Last hemodialysis July 22. 2. Hyperkalemia secondary to acute kidney injury and metabolic acidosis. Resolved. 3. Metabolic acidosis secondary to acute kidney. Resolved. 4. Septic shock secondary to covid-19 pneumonia. Off vasopressors. 5. Acute hypoxic respiratory failure secondary to pneumonia. Has a tracheostomy. 6. Hyperphosphatemia secondary to acute kidney injury. Improving. Phosphorus 5.8 this morning. 7. Anemia. Component of kidney disease. Maintained on Aranesp. Plan: Hold hemodialysis. Maintain IV Lasix. Avoid nephrotoxins. Continue to assess daily for need for renal replacement therapy. Receiving TPN.
--- NOTE | 2020-07-26 11:40 | CT ---
EXAMINATION TYPE: CT brain wo con DATE OF EXAM: 07/26/2020 HISTORY: Petechial subarachnoid hemorrhage CT DLP: 1076.4 mGycm. Automated Exposure Control for Dose Reduction was Utilized. TECHNIQUE: CT scan of the head is performed without contrast. COMPARISON: CT brain 2 and 4 days ago. FINDINGS: There is no new acute intracranial hemorrhage or midline shift identified. There is mild to moderate diffuse ventricular and sulcal prominence consistent with diffuse age-related cerebral at rophy greatest over bilateral frontal lobes redemonstrated. There is mild low-attenuation in the per iventricular white matter consistent with chronic small vessel ischemic change. Persistent focal area s of low-attenuation with subcortical curvilinear hyperdensity felt to reflect evolving acute/subacut e infarct near axial image 38 and coronal image 18. No significant change from prior studies. Increas ed opacification bilateral mastoid air cells with some improved aeration on the left noted from prior studies. Persistent dependent fluid right sphenoid sinus and in the posterior left ethmoid sinus. IMPRESSION: Overall stable findings, evolving subacute hemorrhagic infarct right frontal lobe redemon strated. Improving left-sided mastoiditis noted. Other findings show no significant interval change f rom last 2 days.
[2020-07-26 12:19] LABS: Glucose,Whole Blood 143 mg/dL (75-99)
--- NOTE | 2020-07-26 13:56 | P.PN ---
Subjective Progress Note Date: 07/26/20 This 59-year-old gentleman was admitted to the hospital with COVID pneumonia who had a prolonged course and multiple complications, including heparin-induced thrombocytopenia, thrombosis and also altered mental status and CVA. A request was made for AGNIESZKA examination. Dr. Koroma evaluated the patient and felt that AGNIESZKA would not change the management. Did not consider AGNIESZKA to avoid risk of Covid infection. Transthoracic echo was not suggestive of any vegetations. Apparently there is some improvement with the neurological status. The information is gathered from the nurses. Patient was not personally examined. At this point no need for AGNIESZKA. We will see patient as needed. If in the futureif AGNIESZKA is deemed necessary, please call is again Objective - Vital Signs Vital signs: Vital Signs Temp 98.2 F 07/26/20 12:00 Pulse 105 H 07/26/20 12:00 Resp 22 07/26/20 12:00 BP 116/74 07/26/20 12:00 Pulse Ox 94 L 07/26/20 12:00 Intake & Output 07/25/20 07/26/20 07/26/20 18:59 06:59 18:59 Intake Total 2304.851 858.800 735.3 Output Total 2287 2460 1160 Balance 17.851 -1601.200 -424.7 Weight 107.8 kg Intake: IV 230 715 390 0.9 Normal Saline at KVO 130 110 10 Mvi, Adult No.4 with Vit 605 330 K 10 ml Trace (Conc-1Ml/ Dose) 1 ml Parenteral Electrolytes 20 ml Potassium Chloride 20 meq In Amino Acid 5%-D15w 1, 000 ml @ 55 mls/hr IV . [id number] [facility] Rx#:[id number] cefTRIAXone 1 gm In 100 50 Sodium Chloride 0.9% 50 ml @ 100 mls/hr IVPB Q24HR [facility] Rx#:[id number] Intake, IV Titration 2074.851 143.800 345.3 Amount Anidulafungin 200 mg In 200 Sodium Chloride 0.9% 200 ml @ 84 mls/hr IVPB ONCE ONE Rx#:[id number] Clevidipine Butyrate 25 165.268 143.800 95.3 mg In Empty Bag 1 bag @ 1 MG/HR 2 mls/hr IV .Q24H [facility] Rx#:[id number] Mvi, Adult No.4 with Vit 1214.583 K 10 ml Trace (Conc-1Ml/ Dose) 1 ml Parenteral Electrolytes 20 ml Potassium Chloride 20 meq In Amino Acid 5%-D15w 1, 000 ml @ 55 mls/hr IV . [id number] [facility] Rx#:[id number] Mvi, Adult No.4 with Vit 495 K 10 ml Trace (Conc-1Ml/ Dose) 1 ml Parenteral Electrolytes 20 ml Potassium Chloride 40 meq In Amino Acid 5%-D15w 1, 000 ml @ 55 mls/hr IV . Q19H7M [facility] Rx#:[id number] Potassium Chloride 10 meq 200 In Water For Injection 1 100ml.bag @ 100 mls/hr IVPB Q1HR [facility] Rx#: [id number] Sodium Chloride 0.9% 1, 50 000 ml @ 10 mls/hr IV . Q24H [facility] Rx#:[id number] Output: Gastric Drainage 400 50 Urine 1887 2410 1160 Other: Voiding Method Indwelling Catheter Indwelling Catheter Indwelling Catheter ABP, PAP, CO, CI - Last Documented Arterial Blood Pressure 118/64 - Exam Pt is not personally examined. Information is gathered from the nurses - Labs CBC & Chem 7: 07/26/20 02:56 07/26/20 02:56 Labs: Abnormal Lab Results - Last 24 Hours (Table) 07/25/20 07/25/20 07/26/20 Range/Units 17:26 23:18 02:56 WBC (3.8-10.6) k/uL RBC (4.30-5.90) m/uL Hgb (13.0-17.5) gm/dL Hct (39.0-53.0) % RDW (11.5-15.5) % D-Dimer (<0.60) mg/L FEU ABG pO2 (83-108) mmHg ABG HCO3 (21-25) mmol/L ABG Total CO2 (19-24) mmol/L ABG O2 Saturation (94-97) % BUN 90 H (9-20) mg/dL Creatinine 3.54 H (0.66-1.25) mg/dL Glucose 120 H (74-99) mg/dL POC Glucose (mg/dL) 174 H 133 H (75-99) mg/dL Phosphorus 5.8 H (2.5-4.5) mg/dL Ferritin 770.8 H (22.0-322.0) ng/mL Total Bilirubin 1.7 H (0.2-1.3) mg/dL AST 72 H (17-59) U/L ALT 82 H (4-49) U/L Lactate Dehydrogenase 719 H (313-618) U/L C-Reactive Protein 5.3 H (<1.0) mg/dL Total Protein 5.6 L (6.3-8.2) g/dL Albumin 3.1 L (3.5-5.0) g/dL 07/26/20 07/26/20 07/26/20 Range/Units 02:56 02:56 05:40 WBC 1.1 L* (3.8-10.6) k/uL RBC 2.63 L (4.30-5.90) m/uL Hgb 8.1 L (13.0-17.5) gm/dL Hct 24.2 L (39.0-53.0) % RDW 16.6 H (11.5-15.5) % D-Dimer 11.69 H (<0.60) mg/L FEU ABG pO2 122 H (83-108) mmHg ABG HCO3 28 H (21-25) mmol/L ABG Total CO2 29 H (19-24) mmol/L ABG O2 Saturation 98.9 H (94-97) % BUN (9-20) mg/dL Creatinine (0.66-1.25) mg/dL Glucose (74-99) mg/dL POC Glucose (mg/dL) (75-99) mg/dL Phosphorus (2.5-4.5) mg/dL Ferritin (22.0-322.0) ng/mL Total Bilirubin (0.2-1.3) mg/dL AST (17-59) U/L ALT (4-49) U/L Lactate Dehydrogenase (313-618) U/L C-Reactive Protein (<1.0) mg/dL Total Protein (6.3-8.2) g/dL Albumin (3.5-5.0) g/dL 07/26/20 Range/Units 12:17 WBC (3.8-10.6) k/uL RBC (4.30-5.90) m/uL Hgb (13.0-17.5) gm/dL Hct (39.0-53.0) % RDW (11.5-15.5) % D-Dimer (<0.60) mg/L FEU ABG pO2 (83-108) mmHg ABG HCO3 (21-25) mmol/L ABG Total CO2 (19-24) mmol/L ABG O2 Saturation (94-97) % BUN (9-20) mg/dL Creatinine (0.66-1.25) mg/dL Glucose (74-99) mg/dL POC Glucose (mg/dL) 143 H (75-99) mg/dL Phosphorus (2.5-4.5) mg/dL Ferritin (22.0-322.0) ng/mL Total Bilirubin (0.2-1.3) mg/dL AST (17-59) U/L ALT (4-49) U/L Lactate Dehydrogenase (313-618) U/L C-Reactive Protein (<1.0) mg/dL Total Protein (6.3-8.2) g/dL Albumin (3.5-5.0) g/dL Assessment and Plan (1) CVA (cerebral vascular accident) Current Visit: Yes Status: Acute Code(s): I63.9 - CEREBRAL INFARCTION, UNSPECIFIED SNOMED Code(s): 522436291 (2) Pneumonia due to COVID-19 virus Current Visit: Yes Status: Acute Code(s): U07.1 - COVID-19; J12.82 - Pneumonia due to coronavirus disease 2018 SNOMED Code(s): 492812369870744530 Plan: No new developments. Slight improvement in mental status. No need to do AGNIESZKA at this time. Follow as needed
[2020-07-26] MEDS ORDERED: PROPOFOL 10 MG/ML 20 ML VIAL IV ONE (14:05)
[2020-07-26] MEDS ORDERED: fentaNYL (PF) 50 MCG/ML 2 ML AMP ONE (14:05)
[2020-07-26] MEDS ORDERED: IV FLUID CONTINUATION 1,000 ML IV ONE (14:25)
--- NOTE | 2020-07-26 14:56 | P.OP ---
Date of Procedure: 07/26/20 Preoperative Diagnosis: Malnutrition Postoperative Diagnosis: Malnutrition Procedure(s) Performed: EGD with PEG tube placement Anesthesia: NENITA Surgeon: Jose Carlos Mcdowell Pathology: none sent Condition: stable Disposition: PACU Description of Procedure: Patient's placed on operating table in the supine position. He received IV sedation. The gastroscope was oropharynx past esophagus stomach. The previous gastric stay sutures were seen. The needles placed through the abdominal wall into the stomach under direct vision. And then the wires peritoneal. The 24- Guyanese dilators was overtop the wire in place and stomach. The 20-Guyanese REN tube was then placed the dilator sheath and the dilator sheath was withdrawn. The balloon was inflated with 20 mL of saline. The bolster was secured at 3 cm raudel. Patient tolerated the procedure well.
[2020-07-26] MEDS: NOREPINEPHRINE 8 MG in SODIUM CHLORIDE 0.9% 250 ML IV SCH (15:37)
[2020-07-26] MEDS: ASPIRIN 300 MG SUPP RECTAL SCH (15:50)
[2020-07-26 17:57] LABS: Glucose,Whole Blood 112 mg/dL (75-99)
[2020-07-26] MEDS: SODIUM CHLORIDE 0.9% 1,000 ML IV SCH (18:04)
[2020-07-26] MEDS: ACETAMINOPHEN SUPPOSITORY 650 MG SUPP RECTAL PRN (20:46)
--- NOTE | 2020-07-26 22:22 | P.PN ---
Subjective This is a pleasant 53 years old male with past medical history of hypertension, osteoarthritis, sleep apnea. Presents with respiratory distress secondary to covid pneumonia and secondary bacterial infection is suspected as well with positive sputum culture for streptococcus, group C. Currently remains on ceftriaxone per ID team. Patient has prolonged course in the ICU. He was on mechanical ventilation and need a small dose of Levophed at the beginning , Also patient has elevated troponin and he was started on heparin drip however he developed coffee-ground emesis via anicteric tube, heparin drip was stopped and hemoglobin is stable and his hit antibodies came back positive, Operations Welder found to his elevated troponin is secondary to his Covid infection and hypotension, he was started on argatroban drip for suspected left hand ischemia . Currently he kept on aspirin one 50 mg rectally daily, with no any anticoagulation, Eliquis is held for PEG tube placement His renal function worsened at certain point needing hemodialysis due to his Covid infectionl, nonoliguric. Currently he is off dialysis Receiving nutrition through TPN, and scheduled for PEG tube placement today Plan for him was to go to LTAC wants PEG tube was placed and functional Patient is currently on eraxis, he is also on dexamethasone , Lasix IV 80 mg twice daily, Protonix 40 mg IV twice macey I called his medical insurance provider [employer] at [phone] extension [phone] at 2 PM, however the midline was 2 PM today , of physicians were busy per staff and they said they will call me tomorrow 8:30-8:40 5 AM, I provided my cell phone to [employer] Review of systems: N/a Active Medications Generic Name Dose Route Start Last Admin Trade Name Blayne PRN Reason Stop Dose Admin Acetaminophen 650 mg 07/26/20 20:36 07/26/20 20:46 Acetaminophen Suppository 650 Mg Supp RECTAL 650 mg Q6HR PRN Administration Fever and/ or Pain Albuterol Sulfate 2 puff 07/05/20 08:00 07/26/20 20:14 Albuterol Hfa Inhaler INHALATION 2 puff RT-TID [facility] Administration Aspirin 150 mg 07/26/20 14:30 07/26/20 15:50 Aspirin 300 Mg Supp RECTAL 150 mg DAILY [facility] Administration Darbepoetin Rodrigo 40 mcg 07/14/20 11:00 07/21/20 11:49 Darbepoetin Rodrigo 40 Mcg/0.4 Ml Syringe SQ 40 mcg Q7D [facility] Administration Dexamethasone Sodium Phosphate 4 mg 07/27/20 09:00 Dexamethasone Sod Phosphate 4 Mg/Ml 1 Ml Vial IV DAILY [facility] Furosemide 80 mg 07/18/20 09:00 07/26/20 20:45 Furosemide 10 Mg/Ml 10 Ml Vial IV 80 mg Q12HR [facility] Administration Ceftriaxone Sodium 1 gm/ 50 mls @ 100 mls/hr 07/16/20 09:00 07/26/20 08:06 Sodium Chloride IVPB 100 mls/hr Q24HR [facility] Administration Norepinephrine Bitartrate 8 mg 258 mls @ 12.403 mls/hr 07/21/20 12:45 07/02 09/20 15:37 / Sodium Chloride IV Not Given .[id number] [facility] Protocol 0.05 MCG/KG/MIN Sodium Chloride 1,000 mls @ 10 mls/hr 07/22/20 19:30 07/26/20 18:04 Saline 0.9% IV 10 mls/hr .Q24H [facility] Administration Clevidipine 25 mg/ IV Solution 50 mls @ 2 mls/hr 07/24/20 12:15 07/26/20 16:42 IV 2 mg/hr .Q24H [facility] 4 mls/hr Titration Protocol 1 MG/HR Parenteral Vitamin Supplement 1,051 mls @ 55 mls/hr 07/26/20 08:00 07/26/20 06:40 10 ml/ Zinc/Copper/Manganese/ IV 55 mls/hr Selenium 1 ml/ Parenteral .Q19H7M [facility] Administration Electrolytes 20 ml/ Potassium Chloride 40 meq/ Amino Acids/ Dextrose Anidulafungin 100 mg/ Sodium 130 mls @ 84 mls/hr 07/27/20 09:00 Chloride IVPB DAILY [facility] Insulin Aspart 0 unit 07/11/20 12:00 07/26/20 18:04 Insulin Aspart (Novolog) 100 Unit/Ml Vial SQ Not Given Q6H [facility] Protocol Miscellaneous Information 1 each 07/25/20 05:03 Potassium Replacement Protocol 1 Each Misc MISCELLANE DAILY PRN Per Protocol Protocol Morphine Sulfate 4 mg 07/24/20 12:12 07/26/20 20:58 Morphine Sulfate 4 Mg/Ml Syringe IVP 4 mg Q4HR PRN Administration Pain Pantoprazole Sodium 40 mg 07/05/20 21:00 04/26/21 20:45 Pantoprazole 40 Mg/10 Ml Vial IVP 40 mg BID [facility]UL Administration Objective - Vital Signs Vital signs: Vital Signs Temp 98.2 F 07/26/20 12:00 Pulse 105 H 07/26/20 12:00 Resp 22 07/26/20 12:00 BP 116/74 07/26/20 12:00 Pulse Ox 94 L 07/26/20 12:00 Intake & Output 07/25/20 07/26/20 07/26/20 18:59 06:59 18:59 Intake Total 2304.851 858.800 735.3 Output Total 2287 2460 1160 Balance 17.851 -1601.200 -424.7 Weight 107.8 kg Intake: IV 230 715 390 0.9 Normal Saline at KVO 130 110 10 Mvi, Adult No.4 with Vit 605 330 K 10 ml Trace (Conc-1Ml/ Dose) 1 ml Parenteral Electrolytes 20 ml Potassium Chloride 20 meq In Amino Acid 5%-D15w 1, 000 ml @ 55 mls/hr IV . [id number] [facility] Rx#:[id number] cefTRIAXone 1 gm In 100 50 Sodium Chloride 0.9% 50 ml @ 100 mls/hr IVPB Q24HR [facility] Rx#:[id number] Intake, IV Titration 2074.851 143.800 345.3 Amount Anidulafungin 200 mg In 200 Sodium Chloride 0.9% 200 ml @ 84 mls/hr IVPB ONCE ONE Rx#:[id number] Clevidipine Butyrate 25 165.268 143.800 95.3 mg In Empty Bag 1 bag @ 1 MG/HR 2 mls/hr IV .Q24H [facility] Rx#:[id number] Mvi, Adult No.4 with Vit 1214.583 K 10 ml Trace (Conc-1Ml/ Dose) 1 ml Parenteral Electrolytes 20 ml Potassium Chloride 20 meq In Amino Acid 5%-D15w 1, 000 ml @ 55 mls/hr IV . [id number] [facility] Rx#:[id number] Mvi, Adult No.4 with Vit 495 K 10 ml Trace (Conc-1Ml/ Dose) 1 ml Parenteral Electrolytes 20 ml Potassium Chloride 40 meq In Amino Acid 5%-D15w 1, 000 ml @ 55 mls/hr IV . Q19H7M [facility] Rx#:[id number] Potassium Chloride 10 meq 200 In Water For Injection 1 100ml.bag @ 100 mls/hr IVPB Q1HR [facility] Rx#: [id number] Sodium Chloride 0.9% 1, 50 000 ml @ 10 mls/hr IV . Q24H [facility] Rx#:[id number] Output: Gastric Drainage 400 50 Urine 1887 2410 1160 Other: Voiding Method Indwelling Catheter Indwelling Catheter Indwelling Catheter ABP, PAP, CO, CI - Last Documented Arterial Blood Pressure 118/64 - Exam -GENERAL: The patient is intubated and sedated, well nourished. HEENT: Pupils are round and equally reacting to light. EOMI. No scleral icterus. No conjunctival pallor. Normocephalic, atraumatic. No pharyngeal erythema. No thyromegaly. CARDIOVASCULAR: S1 and S2 present. No murmurs, rubs, or gallops. PULMONARY: Chest is clear to auscultation, no wheezing or crackles. ABDOMEN: Soft, nontender, nondistended, normoactive bowel sounds. No palpable organomegaly. MUSCULOSKELETAL: No joint swelling or deformity. EXTREMITIES: No cyanosis, clubbing, or pedal edema. NEUROLOGICAL: Gross neurological examination did not reveal any focal deficits. SKIN: No rashes. no petechiae. - Labs CBC & Chem 7: 07/26/20 02:56 07/26/20 02:56 Labs: Abnormal Lab Results - Last 24 Hours (Table) 07/25/20 07/25/20 07/26/20 Range/Units 17:26 23:18 02:56 WBC (3.8-10.6) k/uL RBC (4.30-5.90) m/uL Hgb (13.0-17.5) gm/dL Hct (39.0-53.0) % RDW (11.5-15.5) % D-Dimer (<0.60) mg/L FEU ABG pO2 (83-108) mmHg ABG HCO3 (21-25) mmol/L ABG Total CO2 (19-24) mmol/L ABG O2 Saturation (94-97) % BUN 90 H (9-20) mg/dL Creatinine 3.54 H (0.66-1.25) mg/dL Glucose 120 H (74-99) mg/dL POC Glucose (mg/dL) 174 H 133 H (75-99) mg/dL Phosphorus 5.8 H (2.5-4.5) mg/dL Ferritin 770.8 H (22.0-322.0) ng/mL Total Bilirubin 1.7 H (0.2-1.3) mg/dL AST 72 H (17-59) U/L ALT 82 H (4-49) U/L Lactate Dehydrogenase 719 H (313-618) U/L C-Reactive Protein 5.3 H (<1.0) mg/dL Total Protein 5.6 L (6.3-8.2) g/dL Albumin 3.1 L (3.5-5.0) g/dL 07/26/20 07/26/20 07/26/20 Range/Units 02:56 02:56 05:40 WBC 1.1 L* (3.8-10.6) k/uL RBC 2.63 L (4.30-5.90) m/uL Hgb 8.1 L (13.0-17.5) gm/dL Hct 24.2 L (39.0-53.0) % RDW 16.6 H (11.5-15.5) % D-Dimer 11.69 H (<0.60) mg/L FEU ABG pO2 122 H (83-108) mmHg ABG HCO3 28 H (21-25) mmol/L ABG Total CO2 29 H (19-24) mmol/L ABG O2 Saturation 98.9 H (94-97) % BUN (9-20) mg/dL Creatinine (0.66-1.25) mg/dL Glucose (74-99) mg/dL POC Glucose (mg/dL) (75-99) mg/dL Phosphorus (2.5-4.5) mg/dL Ferritin (22.0-322.0) ng/mL Total Bilirubin (0.2-1.3) mg/dL AST (17-59) U/L ALT (4-49) U/L Lactate Dehydrogenase (313-618) U/L C-Reactive Protein (<1.0) mg/dL Total Protein (6.3-8.2) g/dL Albumin (3.5-5.0) g/dL 07/26/20 Range/Units 12:17 WBC (3.8-10.6) k/uL RBC (4.30-5.90) m/uL Hgb (13.0-17.5) gm/dL Hct (39.0-53.0) % RDW (11.5-15.5) % D-Dimer (<0.60) mg/L FEU ABG pO2 (83-108) mmHg ABG HCO3 (21-25) mmol/L ABG Total CO2 (19-24) mmol/L ABG O2 Saturation (94-97) % BUN (9-20) mg/dL Creatinine (0.66-1.25) mg/dL Glucose (74-99) mg/dL POC Glucose (mg/dL) 143 H (75-99) mg/dL Phosphorus (2.5-4.5) mg/dL Ferritin (22.0-322.0) ng/mL Total Bilirubin (0.2-1.3) mg/dL AST (17-59) U/L ALT (4-49) U/L Lactate Dehydrogenase (313-618) U/L C-Reactive Protein (<1.0) mg/dL Total Protein (6.3-8.2) g/dL Albumin (3.5-5.0) g/dL Assessment and Plan Assessment: Acute Covid pneumonia Status post Mild septic shock secondary to above especially his bacterial infection Acute hypoxic respiratory failure needing mechanical ventilation Acute kidney injury needed hemodialysis , currently he is off HD Acute ischemic stroke small, right frontal region with mild petechial hemorrhage in the cortical ribbon. per neurology service AMS secondary to metabolic encephalogpathy and stroke, s/p PEG placement and tracheostomy as he could not be weaned off m.ventilation Suspected ischemia of the left hand on anticoagulation , resolved now Coffee ground vomiting with suspected acute GI bleed Thrombocytopenia secondary to sepsis and heparin induced thrombocytopenia Elevated troponin, secondary to renal function impairment, viral infection and hypotension Plan: This is a pleasant 59 years old male who presents with Covid pneumonia, on mechanical ventilation and AMS. Continue with mechanical ventilation for pulmonary/critical care team will follow the patient closely. Continue with multiple vitamin zinc and vitamin D. Currently on argatroban drip for pulmonary team. Keep monitoring hemoglobin and platelets Infectious disease, GI and cardiology, nephrology team on the case Labs and medication were reviewed.. Continue same treatment. Continue with symptomatic treatment. Resume home medication. Monitor lytes and vitals. DVT and GI prophylaxis. Further recommendations as per clinical course of the patient DVT prophylaxis: eliquis on hold GI Prophylaxis: Ppi, Protonix twice a day Prognosis is guarded
[2020-07-26 23:52] LABS: Glucose,Whole Blood 125 mg/dL (75-99)
--- NOTE | 2020-07-27 00:19 | P.PN ---
Subjective Progress Note Date: 07/26/20 Patient was seen for a follow-up. Patient has been off sedation since 07/23/2020. Patient is getting morphine 4 mg every 4 hours as needed. Patient has tracheostomy in place. Also had undergone PEG tube replacement as the previous PEG tube was clogged. No seizure-like activity. Patient has not been requiring hemodialysis since 07/21/2020. Patient has started passing urine with Lasix. Patient has spiked temperature 101.3, but now it's better after Tylenol was given. Objective - Vital Signs Vital signs: Vital Signs Temp 99.9 F H 07/26/20 23:00 Pulse 116 H 07/26/20 23:00 Resp 20 07/26/20 23:00 BP 123/82 07/26/20 23:00 Pulse Ox 73 L 07/26/20 23:00 Intake & Output 07/26/20 07/26/20 07/27/20 06:59 18:59 06:59 Intake Total 760.557 6276.600 325 Output Total 2460 2195 825 Balance -1601.200 -1021.400 -500 Weight 107.8 kg 107.8 kg Intake: IV 715 745 275 0.9 Normal Saline at KVO 110 10 Mvi, Adult No.4 with Vit 605 660 275 K 10 ml Trace (Conc-1Ml/ Dose) 1 ml Parenteral Electrolytes 20 ml Potassium Chloride 20 meq In Amino Acid 5%-D15w 1, 000 ml @ 55 mls/hr IV . [id number] [facility] Rx#:[id number] cefTRIAXone 1 gm In 50 Sodium Chloride 0.9% 50 ml @ 100 mls/hr IVPB Q24HR [facility] Rx#:[id number] Intake, IV Titration 143.800 428.600 50 Amount Anidulafungin 200 mg In 200 Sodium Chloride 0.9% 200 ml @ 84 mls/hr IVPB ONCE ONE Rx#:[id number] Clevidipine Butyrate 25 143.800 118.600 mg In Empty Bag 1 bag @ 1 MG/HR 2 mls/hr IV .Q24H [facility] Rx#:[id number] Sodium Chloride 0.9% 1, 110 50 000 ml @ 10 mls/hr IV . Q24H [facility] Rx#:[id number] Output: Gastric Drainage 50 Urine 2410 2195 825 Other: Voiding Method Indwelling Catheter Indwelling Catheter Indwelling Catheter ABP, PAP, CO, CI - Last Documented Arterial Blood Pressure 118/64 - Exam On examination patient is a middle aged male, appears somnolent at this time. He does open his eyes to calling his name, follows some commands like wiggling his toes. There is very minimal to no movement of the hand. P atient sometimes makes facial expression. Pupils are round and reacting. Patient is apparently legally blind. It appears that he does track sometimes. Tone is decreased, particularly in the hands. Patient has demarcation of the fingertips of the left hand from ischemia. It is evolving. Reflexes are absent, plantars are flat. Patient has moderate peripheral edema. - Labs CBC & Chem 7: 07/26/20 02:56 07/26/20 02:56 Labs: Abnormal Lab Results - Last 24 Hours (Table) 07/26/20 07/26/20 07/26/20 Range/Units 02:56 02:56 02:56 WBC 1.1 L* (3.8-10.6) k/uL RBC 2.63 L (4.30-5.90) m/uL Hgb 8.1 L (13.0-17.5) gm/dL Hct 24.2 L (39.0-53.0) % RDW 16.6 H (11.5-15.5) % D-Dimer 11.69 H (<0.60) mg/L FEU ABG pO2 (83-108) mmHg ABG HCO3 (21-25) mmol/L ABG Total CO2 (19-24) mmol/L ABG O2 Saturation (94-97) % BUN 90 H (9-20) mg/dL Creatinine 3.54 H (0.66-1.25) mg/dL Glucose 120 H (74-99) mg/dL POC Glucose (mg/dL) (75-99) mg/dL Phosphorus 5.8 H (2.5-4.5) mg/dL Ferritin 770.8 H (22.0-322.0) ng/mL Total Bilirubin 1.7 H (0.2-1.3) mg/dL AST 72 H (17-59) U/L ALT 82 H (4-49) U/L Lactate Dehydrogenase 719 H (313-618) U/L C-Reactive Protein 5.3 H (<1.0) mg/dL Total Protein 5.6 L (6.3-8.2) g/dL Albumin 3.1 L (3.5-5.0) g/dL 07/26/20 07/26/20 07/26/20 Range/Units 05:40 12:17 17:55 WBC (3.8-10.6) k/uL RBC (4.30-5.90) m/uL Hgb (13.0-17.5) gm/dL Hct (39.0-53.0) % RDW (11.5-15.5) % D-Dimer (<0.60) mg/L FEU ABG pO2 122 H (83-108) mmHg ABG HCO3 28 H (21-25) mmol/L ABG Total CO2 29 H (19-24) mmol/L ABG O2 Saturation 98.9 H (94-97) % BUN (9-20) mg/dL Creatinine (0.66-1.25) mg/dL Glucose (74-99) mg/dL POC Glucose (mg/dL) 143 H 112 H (75-99) mg/dL Phosphorus (2.5-4.5) mg/dL Ferritin (22.0-322.0) ng/mL Total Bilirubin (0.2-1.3) mg/dL AST (17-59) U/L ALT (4-49) U/L Lactate Dehydrogenase (313-618) U/L C-Reactive Protein (<1.0) mg/dL Total Protein (6.3-8.2) g/dL Albumin (3.5-5.0) g/dL Assessment and Plan Assessment: * Toxic metabolic encephalopathy, slightly improved. Reasons multifactorial as mentioned. * Acute ischemic stroke small, right frontal region with mild petechial hemorrhage in the cortical ribbon. * Acute kidney injury requiring hemodialysis. Renal functions improving. * Acute hypoxic respiratory failure from COVID-19 related pneumonia, getting worse. * Status post revision of PEG tube. * Left hand ischemia * Anemia * Leukopenia (new onset) * Hypertension * Morbid obesity * Legal blindness * Obstructive sleep apnea * Superficial venous thrombosis Plan: * Patient had a repeat computed tomography scan of head performed today 07/26/2020, which revealed stable findings, evolving subacute hemorrhagic in farct right frontal lobe redemonstrated. On my review, the petechial hemorrhage appears slightly more prominent as compared to the last studies. We will decrease aspirin from 300 down to 150 mg. * Carotid Doppler showed no hemodynamic significant stenosis of the proximal IC A. * 2-D echo from 07/06/2020 showed normal left-ventricular size. Moderate concentric LVH. EF is 55-60%. Right ventricle is severely enlarged. Mild TR. * Spoke to patient's brother on the phone. Discussed with him about the results of the CAT scan and the current neurological condition. Discussed with him about further evaluation for mechanism of stroke with possible AGNIESZKA. He consented to proceed with AGNIESZKA to evaluate for the source of stroke. * Spoke to nursing technician Dr. Koroma. He believes AGNIESZKA will not change the management, as patient at present is not a candidate for anticoagulation just because of his hemorrhagic stroke. * Patient's toxic metabolic encephalopathy has improved. Renal functions are improving. Patient has not had dialysis since 07/21/2020. 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 * EEG 07/20/2020 also revealed severe degree of background slowing consistent with encephalopathy. No epileptiform activity seen. * Prognosis is still very guarded based upon his current neurological status, physical examination and underlying multiple comorbid conditions. * Patient was on on Apixaban for superficial venous thrombosis, which was discontinued on 07/19/2020 for anticipation for tracheostomy. * Patient is status post PEG tube replacement today. * Stay off anticoagulation, except for DVT prophylaxis and aspirin regimen. * Dr. Raymundo Meneses will resume neurology service from the morning.
[2020-07-27] MEDS: INSULIN ASPART (NovoLOG) 100 UNIT/ML VIAL SQ SCH ×4 (00:30→18:33)
[2020-07-27] MEDS: CLEVIDIPINE BUTYRATE 25 MG in EMPTY BAG 1 BAG IV SCH ×2 (00:31→06:27)
[2020-07-27] MEDS: MVI, ADULT NO.4 WITH VIT K 10 ML, TRACE (CONC-1ML/DOSE) 1 ML, PARENTERAL ELECTROLYTES 2... IV SCH ×5 (00:47)
[2020-07-27] MEDS: MORPHINE SULFATE 4 MG/ML SYRINGE IVP PRN (02:06)
[2020-07-27 05:11] LABS: Anisocytosis Slight; HCT 24.8 % (39.0-53.0); HGB 8.2 gm/dL (13.0-17.5); MCH 31.1 pg (25.0-35.0); MCHC 33.1 g/dL (31.0-37.0); MCV 93.9 fL (80.0-100.0); Mean Platelet Volume 7.9; Platelet Count 148 k/uL (150-450); RBC 2.65 m/uL (4.30-5.90); RDW 16.5 % (11.5-15.5)
[2020-07-27 05:19] LABS: WBC 0.6 k/uL (3.8-10.6)
[2020-07-27 06:01] LABS: C Reactive Protein 14.9 mg/dL (<1.0)
--- NOTE | 2020-07-27 06:01 | XR ---
EXAMINATION TYPE: XR chest 1V portable DATE OF EXAM: 07/27/2020 CLINICAL HISTORY: Difficulty breathing and covid progress study. TECHNIQUE: Single AP portable semiupright view of the chest is obtained. COMPARISON: Chest x-ray from one day earlier and older studies FINDINGS: Stable left-sided PICC. Stable tracheostomy tube. Stable large bore right internal jugular dialysis catheter. Interval removal of orogastric tube. Persistent bilateral multifocal and confluent upper and lower lung opacities with some relative spari ng of midlungs is redemonstrated on background low lung volumes. Age-indeterminate right lateral uppe r to midrib fractures redemonstrated. Cardiac silhouette size is stable and mildly enlarged. Underlyi ng scoliotic curvature and/or positioning lower thoracic spine is redemonstrated. IMPRESSION: Bilateral multifocal opacities most prominent in the apices and bases on background low l aramis volumes consistent with covid-19 infection redemonstrated. No significant interval change from o ne day earlier.
[2020-07-27 06:16] LABS: Albumin 3.2 g/dL (3.5-5.0); Calcium 8.6 mg/dL (8.4-10.2); Potassium 5.2 mmol/L (3.5-5.1); Total Bilirubin 3.4 mg/dL (0.2-1.3); Total Protein 5.7 g/dL (6.3-8.2)
[2020-07-27] MEDS: ACETAMINOPHEN SUPPOSITORY 650 MG SUPP RECTAL PRN ×2 (06:27→12:24)
[2020-07-27] MEDS: ALBUTEROL HFA INHALER INHALATION SCH ×3 (07:21→19:41)
[2020-07-27 08:17] LABS: Glucose,Whole Blood 119 mg/dL (75-99)
[2020-07-27] MEDS: PANTOPRAZOLE 40 MG/10 ML VIAL IVP SCH ×2 (09:28→21:20)
[2020-07-27] MEDS: FUROSEMIDE 10 MG/ML 10 ML VIAL IV SCH (09:29)
[2020-07-27] MEDS: DEXAMETHASONE SOD PHOSPHATE 4 MG/ML 1 ML VIAL IV SCH (09:29)
[2020-07-27] MEDS: ANIDULAFUNGIN 100 MG in SODIUM CHLORIDE 0.9% 100 ML IVPB SCH (09:33)
[2020-07-27] MEDS: ASPIRIN 300 MG SUPP RECTAL SCH ×2 (09:38→21:12)
--- NOTE | 2020-07-27 09:44 | P.PN ---
Subjective Patient is seen in follow-up for acute kidney injury. Maintained on IV Lasix. Nonoliguric. Renal function fairly stable. Receiving TPN. Status post tracheostomy this admission. On 30% FiO2. Vital signs are stable. General: No JVD. HEENT: Tracheostomy noted. HEART: Tachycardic. ABDOMEN: No distention. EXTREMITITES: No gross edema. Objective - Vital Signs Vital signs: Vital Signs Temp 101.3 F H 07/27/20 08:00 Pulse 118 H 07/27/20 09:00 Resp 24 07/27/20 09:00 BP 105/71 07/27/20 09:00 Pulse Ox 97 07/27/20 09:00 Intake & Output 07/26/20 07/27/20 07/27/20 18:59 06:59 18:59 Intake Total 0104.789 9125.417 77.267 Output Total 21945 175 Balance -1021.400 -193.583 -97.733 Weight 107.8 kg Intake: IV 745 660 55 0.9 Normal Saline at KVO 10 Mvi, Adult No.4 with Vit 660 660 55 K 10 ml Trace (Conc-1Ml/ Dose) 1 ml Parenteral Electrolytes 20 ml Potassium Chloride 20 meq In Amino Acid 5%-D15w 1, 000 ml @ 55 mls/hr IV . [id number] [facility] Rx#:[id number] cefTRIAXone 1 gm In 50 Sodium Chloride 0.9% 50 ml @ 100 mls/hr IVPB Q24HR [facility] Rx#:[id number] Intake, IV Titration 938.649 6878.417 22.267 Amount Anidulafungin 200 mg In 200 Sodium Chloride 0.9% 200 ml @ 84 mls/hr IVPB ONCE ONE Rx#:[id number] Clevidipine Butyrate 25 118.600 55.000 2.267 mg In Empty Bag 1 bag @ 1 MG/HR 2 mls/hr IV .Q24H [facility] Rx#:[id number] Mvi, Adult No.4 with Vit 996.417 K 10 ml Trace (Conc-1Ml/ Dose) 1 ml Parenteral Electrolytes 20 ml Potassium Chloride 40 meq In Amino Acid 5%-D15w 1, 000 ml @ 55 mls/hr IV . Q19H7M [facility] Rx#:[id number] Sodium Chloride 0.9% 1, 110 120 20 000 ml @ 10 mls/hr IV . Q24H [facility] Rx#:[id number] Output: Urine 2194 2024 175 Other: Voiding Method Indwelling Catheter Indwelling Catheter ABP, PAP, CO, CI - Last Documented Arterial Blood Pressure 118/64 - Labs CBC & Chem 7: 07/27/20 03:30 07/27/20 03:30 Labs: Abnormal Lab Results - Last 24 Hours (Table) 07/26/20 07/26/20 07/26/20 Range/Units 12:17 17:55 23:50 WBC (3.8-10.6) k/uL RBC (4.30-5.90) m/uL Hgb (13.0-17.5) gm/dL Hct (39.0-53.0) % RDW (11.5-15.5) % Plt Count (150-450) k/uL Potassium (3.5-5.1) mmol/L BUN (9-20) mg/dL Creatinine (0.66-1.25) mg/dL Glucose (74-99) mg/dL POC Glucose (mg/dL) 143 H 112 H 125 H (75-99) mg/dL Total Bilirubin (0.2-1.3) mg/dL AST (17-59) U/L ALT (4-49) U/L C-Reactive Protein (<1.0) mg/dL Total Protein (6.3-8.2) g/dL Albumin (3.5-5.0) g/dL 07/27/20 07/27/20 07/27/20 Range/Units 03:30 03:30 06:01 WBC 0.6 L* (3.8-10.6) k/uL RBC 2.65 L (4.30-5.90) m/uL Hgb 8.2 L (13.0-17.5) gm/dL Hct 24.8 L (39.0-53.0) % RDW 16.5 H (11.5-15.5) % Plt Count 148 L (150-450) k/uL Potassium 5.2 H (3.5-5.1) mmol/L BUN 103 H* (9-20) mg/dL Creatinine 3.66 H (0.66-1.25) mg/dL Glucose 120 H (74-99) mg/dL POC Glucose (mg/dL) 119 H (75-99) mg/dL Total Bilirubin 3.4 H (0.2-1.3) mg/dL AST 79 H (17-59) U/L ALT 115 H (4-49) U/L C-Reactive Protein 14.9 H (<1.0) mg/dL Total Protein 5.7 L (6.3-8.2) g/dL Albumin 3.2 L (3.5-5.0) g/dL Microbiology - Last 24 Hours (Table) 07/26/20 21:17 Urine Culture - Preliminary Urine,Catheterized Assessment and Plan Plan: Assessment: 1. Acute kidney injury secondary to ATN secondary to covid-19 infection. Nonoliguric. Last hemodialysis July 22. Creatinine fairly stable at 3.66 today. Elevated BUN due to acute kidney injury and steroids. No active bleeding. 2. Hyperkalemia secondary to acute kidney injury and metabolic acidosis. 3. Metabolic acidosis secondary to acute kidney. Resolved. 4. Septic shock secondary to covid-19 pneumonia. Off vasopressors. 5. Acute hypoxic respiratory failure secondary to pneumonia. Has a tracheostomy. 6. Hyperphosphatemia secondary to acute kidney injury. Improving. Phosphorus 5.8 as of July 26. 7. Anemia. Component of kidney disease. Maintained on Aranesp. Plan: Hold hemodialysis. Maintain IV Lasix - decrease to 80 mg IV once daily. Avoid nephrotoxins. Continue to assess daily for need for renal replacement therapy. Receiving TPN - to lower potassium content in the feedings. Repeat potassium level this afternoon.
--- NOTE | 2020-07-27 10:43 | P.PN ---
Subjective Progress Note Date: 07/27/20 Principal diagnosis: Acute hypoxic respiratory failure second to COVId 19 pneumonia The patient is seen today 07/12/2020 in follow-up in the intensive care unit. He remains intubated, sedated on the mechanical ventilator at assist control mode of a rate of 36, tidal volume 450, FiO2 40% and a PEEP of 10. Morning blood gases reveal pO2 of 69, pCO2 41, pH 7.35. He remains sedated on propofol at 60 mcg/kg/m, fentanyl at 1 mcg/kg/h, norepinephrine at 0.09 mcg/kg//min, the patient is currently on 0.9 saline at rate of 50 mL an hour. The patient has been off Nimbex since yesterday. He is continued on Argatroban at 0.5 mcg/kg/m. Being nourished with Nepro at 15 ML's per hour. He did receive hemodialysis yesterday with 1 L removed. Chest x-ray reveals mild bibasilar infiltrates. Sputum cultures positive for beta-hemolytic strep, group C. White count 18.1. Hemoglobin 10.6. Platelet count 141. D-dimer 19.69. Sodium 133. Potassium 4.7. Creatinine 4.14. LDH 1067, C-reactive protein 24. Remains on antibiotics in the form of ceftriaxone. Bronchodilators. Vitamin supplements. Dexamethasone. 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 The platelet count is stable and the platelet count is up to 136. On 07/12/2020, the patient is being seen for follow-up. The patient is a 59-year-old obese male patient with a BMI of 36.2 with known history of obstructive sleep apnea, presented with COVID 19 related pneumonia patient is currently intubated on a mechanical ventilator. The patient has been on a mechanical ventilator since 07/05/2020. 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 During the course of his treatment, the patient developed an acute kidney injury secondary to ATN secondary to "with 19 infection. Urine output was improving and the patient's urine output was in order of 20-25 mL an hour. Due to persistent hyperkalemia and worsening renal function, the patient was started on hemodialysis on 07/10/2020. The potassium level improved post-hemodialysis. The patient also had significant metabolic acidosis and the patient was given bicarb infusion. Electrolytes are being monitored. The patient got dialyzed yesterday and this was his second hemodialysis. Nephrology is on the case. He is currently on Decadron 6 mg IV every 24 hours. His chest x-ray is showing patchy by the pulmonary infiltrates in lower lobes, slightly worsening in the chest x-ray findings on today's evaluation mainly in the peripheries and ET tube is in a good location. The patient remains on a mechanical ventilator assist control mode. He is on Nepro at 60 mL an hour. 07/13/2020, I'm seeing this patient for a follow-up. This is a case of a 59-year-old male patient with Covid 19 related pneumonia and acute kidney injury currently on hemodialysis. Worn-out, the patient is sedated and this morning the patient is currently on propofol running at 6 60 mcg/kg per minute and fentanyl is running at 1 mcg/kg/h and this is the same sedation it was being provided yesterday. The patient is on no paralytics for now. The patient is on a mechanical ventilator, on this morning's evaluation, he is on assist-control at the rate of 28 with a tidal volume of 450 and FiO2 of 50% and PEEP is 10. Blood gases from today showing a pH of 7.37 with a pCO2 of 47 and pO2 of 63. Chest x-ray from today is showing diffuse bilateral pulmonary infiltrates more so in the lower lobes bilaterally. ET tube is in a good location. Comparing this chest x-ray from yesterday, there is no major interval change in the findings are essentially stable. His peak airway pressures 28. His static pressures 24. The patient is is still on Decadron 6 mg IV every 24 hours. D- dimer today's at 13.3, his LDH level is at 1021 and the CRP is at 4.6. Note that his inflammatory markers essentially compatible to yesterday. His echoes at 13.7 with a hemoglobin of 9.2. Platelet count is 112. I took the patient off Agratoban and he was also placed on Eliquis at a dose of 5 mg by mouth twice a day. Noted the patient also is an acute kidney injury. The patient underwent dialysis and the spot he has taken 3 sessions of hemodialysis. He is producing urine output in the order of 20-30 mL an hour. His last session of hemodialysis was yesterday. In terms of his electrolytes, his BUN is at 80 with a creatinine of 3.5 and a sodium of 132 with a potassium of 4.4. He is currently on enteral feeding for dizziness support and is currently on Nepro at the rate of 50 mL an hour. He is currently off Rocephin. He is afebrile. He is requiring low-dose pressors were norepinephrine 30 dose of 0.03 mcg/kg per minute. Otherwise, no other significant events. He is afebrile. Sedation holiday was not done yesterday. IV fluids are running at 0.9 at the rate of 50 mL an hour. 07/14/2020, patient is being seen for follow-up. Sedated and still on a mechanical ventilator, probable resolving. 60 mcg/kg per minute and the patient is also on fentanyl at 1 mcg/kg/h. Adequately sedated. On a mechanical ventilator essentially vent settings being at tidal volume of 450 with an FiO2 of 50% and a PEEP of 10 and a rate of 28. These are essentially the same settings as yesterday. As far as blood gases, pO2 is at 79 with a pCO2 of 45 and a pH is at 7.35. He d-dimer is at 9.42 and the rest of the inflammatory markers show an LDH of 1062 which is stable compared to yesterday and a CRP of 87, slightly elevated compared to yesterday. His CPK is down to 231. His pro calcitonin level was at 0.58 and note that the patient has dialysis-dependent renal failure. As far as his creatinine, his creatinine today is at 3.97 with a mean of 96. He did not receive dialysis yesterday. His urine output is in order of 30-40 mL an hour and the fluid balance has been +1.1 L over the past 24 hours. His chest x-ray from today is showing lower lobe pulmonary infiltrates, essentially stable compared to yesterday. ET tube remains in excellent location. IV fluids are running at 20 cc an hour of normal saline. He is afebrile. He is tolerating his enteral feeding for nutritional support. Norepinephrine infusion which is running at 0.05 mcg/kg per minute. He remains on Decadron 6 mg IV every 24 , platelet count is stable at 121 and 11 avoiding heparin. Patient holiday yesterday was ultimately aborted as the patient became quite agitated after several hours without any meaningful neurological response. 07/15/2020, the patient is being seen for a follow-up. Sedated with propofol running at 60 mcg/kg per minute and fentanyl is at 1 mcg/kg/h and the level of sedation essentially the same as yesterday. Remains on a mechanical ventilator. He is an assist-control mode at the rate of 24 with a tidal volume of 450 and a PEEP of 8 with a FiO2 of 50%. He had a blood gas showing pH of 7.33 with a pCO2 of 46 and pO2 of 73. Chest x-ray is unchanged, probably slightly worse on the left in terms of that the patient is seeing on today's chest x-ray. ET tube remains in a good location. Inflammatory markers from today show a d-dimer of 9 with a LDH level of 1061 and a CRP of 78, comparable to yesterday. His pro calcitonin level was low. He got dialyzed yesterday. I attempted to wean down the PEEP to 6 and this was not successful and the patient desaturated in the P EEP was brought back up to 8 yesterday. Meanwhile, he is afebrile. He is producing urine output in the order of 20-30 mL an hour. He is on normal saline at the rate of 20 mL an hour. He remains on Decadron 6 mg IV to 24 hours. His platelet count is 132 which is essentially stable and improved compared to yesterday. In terms of pressors, the patient is currently on norepinephrine infusion at 0.04 mcg/kg per minute. I will today's condition essentially unchanged and his condition essentially the same as compared to yesterday 07/16/2020, remains on a mechanical ventilator on propofol at the rate of 60 mcg/kg per minute and fentanyl is at 2 mcg/kg/h. He remains off paralytics. At around 6:00 this morning, the patient had some oxygen desaturation. Based on that, I increased his FiO2 up to 60%. Currently is an assist-control mode rate of 28 with a tidal volume of 450 and a PEEP of 8 chest x-ray still showing diffuse bilateral pulmonary infiltrates left more than right. The blood gas shows a pH of 7.31 with a pCO2 of 45 and pO2 of 68. This was on FiO2 of 70%. Inflammatory markers show a d-dimer of 9.9 with a LDH level of 1103 and a CRP level of 62. The patient is on Decadron 6 mg IV every 24 hours. The patient is also on anticoagulation with Eliquis 2.5 mg by mouth twice a day. His platelet counts is 135. The chest x-ray findings are obviously worse and there is some worsening in the evaluation in the right lung compared to yesterday. Note that the patient did not get dialyzed yesterday. Today is a dialysis day for him. He is also on norepinephrine infusion running at 0.08 mcg/kg per minute. There is enough to maintain his blood pressure. He is receiving enteral feeding for discharge support and currently is on Nepro at a rate of 50 mL an hour which is currently at goal. No other significant events. Is adequately sedated for now. 07/17/2020, the patient is being seen for a follow-up. This morning he is on a combination of propofol and fentanyl running at 60 mics for propofol and 1 g for fentanyl. He was given a sedation holiday and she was able to tolerate initiated subsequently he decompensated and became hypoxic and he had to be placed back on sedation. Noted the patient became asynchronous. This morning, he is back on a mechanical ventilator mode at the rate of 28 with a tidal volume of 450 and her FiO2 is at 60% with a PEEP of 8. He underwent dialysis yesterday with a total of 2 liters of ultrafiltration. Note that he was able to tolerated dialysis without any major issues. He is on a minimal dose of norepinephrine infusion running at 0.06 mcg/kg per minute for blood pressure control. On today's evaluation, peak air pressures around 27. The blood gases from today shows a pH of 7.29 with a pCO2 of 40 and pO2 of 99 and this was on FiO2 of 60%. As mentioned, his PEEP is at 8. Chest x-ray still showing diffuse breath and pulmonary infiltrates unchanged without any major interval improvement or worsening. White cell count is at 50 with a hemoglobin of 8.2. Creatinine is at 3.4 and a urine output is in order of 30 mL an hour. No plans for hemodialysis today. He is receiving enteral feeding for nutritional support with Nepro at the rate of 50 mL an hour. He is stooling. Still sedation dependent. Unable to wean him off sedation because of a 6 and mean oxygen desaturations. I have approach the and the family with a possibility of ainsertion of a tracheostomy tube and a PEG tube for prolonged need of mechanical ventilation and failure for weaning. The patient has been intubated since 07/05/2020. The inflammatory markers from today shows an LDH level of 889, CRP is at 6 and the d-dimer is at 6.05. The patient has palpable pulses in his left upper extremity. She of his fingers are necrotic and the tip including the index, the platelet counts are stable and the patient is currently on Eliq uis 2.5 mg by mouth twice a day. Or 2020, the patient remains sedated with a combination of propofol and fentanyl running at 50 mcg/kg per minute for propofol and 1 mcg/kg per hour for fentanyl. He is sedated. In fact is deeply sedated. We are going to proceed with a sedation holiday on this patient today. He remains on a mechanical ventilator. He remains on a assist-control rate of 28, tidal volume of 450, FiO2 of 50% with a PEEP of 8. Attempts to wean the PEEP further failed and the patient became more hypoxic. As such, the patient is living At 8. This patient is a 7.26 with a pCO2 of 48 and pO2 of 71 today's blood gas. His chest x-ray showing stable bilateral pulmonary infiltrates essentially involving the lower lobes. ET tube is in a good location. Note that the patient is producing urine output in the order of 8200 mL an hour. His net fluid balance over the past 24 hours has been -83 mL. He has had a with a positive fluid balance for today. The findings on the case. The intent of the dialysis 3 times a week. His last dialysis was done on Sunday which is 2 days ago. His creatinine is up to 3.7 with a BUN of 84. Rest of the electrolytes are normal. Affect is running a lower sodium level of 1:30 with a potassium level of 4.1. Serum bicarbs at 20. In terms of his COVID-19 related pneumonia, the patient has a LDH level of 855, CRP level of 5.2 and his most recent d-dimer is at 5.4. He remains on steroids and he is on Decadron 6 mg IV every 24 hours. He did have a component of hit syndrome. This was related to heparin. He did receive Agratroban was ultimately discontinued once the patient's stated count picked up and it's platelet count is currently at 129. He does have necrotic fingers in his left upper extremity. Adequate pulses in the radial. No new vascular insults noted on today's examination. He is receiving enteral feeding for nutritional support and is currently on Nepro at the rate of 10 mL an hour. He is stooling. He is on Rocephin for strep in history of the blood cultures on 2 separate occasions. Otherwise, the blood cultures positive for coagulase-negative staph. Patient was reevaluated today on 07/19/2020, remains intubated and mechanically ventilated, he is off sedation and he is not showing any signs of neurological not responding to any stimuli. Patient is on assist control rate of 24th of volume 450 FiO2 50% and PEEP of 6. ABG showed a pO2 of 81 pCO2 41 pH of 7.31 patient is on enteral feeding. And he may undergo dialysis. We plan to have a tracheostomy and PEG tube placement in this patient, and he is basically a failure to wean. Today the sedation is placed on hold. Chest x-ray continues to show bilateral pulmonary infiltrates involving lower lobes. Endotracheal tube is in the proper position. Patient is making good urine, however his renal functioning seems to be getting worse. Electrolytes are normal. BUN is 91 creatinine 4.51 LDH is 893 liver enzymes are borderline elevated, C-reactive protein is 4.2 d-dimer 6.68. WBC count is 9.1 hemoglobin is 8.9 On 07/20/2020 patient seen in follow-up in intensive care unit, he was given daily traction of sedation yesterday, and his sedation was on hold for several hours and the patient never woke up over open his eyes or follow any commands, and as the day went on he started breathing fast, started desaturated and get agitated and was he was placed back on sedation on which she remains today, currently on Diprivan at 40 mics per kilo per minute, and fentanyl infusion at 1 mics per kilo per minute, and levo fed has been discontinued, he is on assist- control mode of ventilation with assist control rate of 24, tidal volumes of 4 50, FiO2 of 50% and PEEP of 6, this morning's blood gas shows pO2 of 92, pCO2 42, and pH is 7.32. He is in sinus mechanism, slightly tachycardic, his tube feedings are currently on hold in case of possibility of tracheostomy and PEG tube insertion however were still awaiting a response from his family on the decision in regards to proceeding with trach and PEG placement, today he is receiving hemodialysis treatment, and a 3 L in fluid was removed today. In terms of urine output he has been making urine in the order of 50-70 ML per hour, he remains on Lasix 80 mg twice daily, he remains on Rocephin for evidence of a beta-hemolytic strep in the sputum cultures, his follow-up sputum culture only showed Armida. History of resting comfortably in bed, he remains on IV dexamethasone 6 mg daily, has been off the levofed. Breasts labs have been reviewed, his white blood cell count is 8.1, hemoglobin is 8.1, his platelet count is 126, d-dimer is 13.3, sodium is 133, potassium 3.7, his renal function is relatively stable, with BUN of 82, and creatinine 4.51. These LDH is 792, CRP is 48. His had no acute events overnight, we spoke to his daughter yesterday in regards to patient's condition, and to discuss tracheostomy and PEG tube insertion, awaiting response from the family on their decision and the daughter indicated that patient had poor quality of life to start with and the were not sure if the workup and consent to the trach and PEG On 07/21/2000 patient seen in follow-up in the intensive care unit, yesterday he tolerated 11 hours of sedation holiday, and he was starting to follow simple commands, however is that day went on he was becoming more agitated and tachypneic, and he was placed back on sedation, currently on Diprivan at 40 mics per kilo per minute, and 0.9 at KVO, he remains intubated, on assist control mode of ventilation, with a rate of 24, Tylox 450, FiO2 of 50% and PEEP of 6, this morning's blood gases show pO2 133, pCO2 of 41, and pH is 7.38. Patient is resting comfortably, appears to be in no acute distress, he is not on any vasoactive drugs, no vasopressors, she is in sinus rhythm sinus tach with a rate of 90-106 BPM, hemodialysis treatment this morning, and attended have liters of fluid was taken off, his vital signs have been stable overnight, no fever or chills, lung sounds are diminished. She also remains on IV Lasix 80 mg twice da waylon, patient is producing urine in the order of 30-60 ML per hour, and she is in -4.1 L over the last 24 hours with additional -2.49 fluid balance since midnight last night. Chest x-ray shows interval improvement in bilateral airspace infiltrates particularly within the right upper lobe. Today's labs have been reviewed, showing white blood cell count 7.1, hemoglobin of 7.4, platelet count is 120, sodium is 130, potassium is 3.2, chloride is 104, CO2 of 23, BUN of 75 and creatinine of 4.01. Patient remains on Rocephin for beta-hemolytic strep in the sputum, repeat culture of the sputum showed only Armida. He is tolerating tube feedings which are on hold for tracheostomy and PEG tube placement which is scheduled for today. On 07/22/2020 patient seen in follow-up in intensive care unit, he remains sedated and trach to the ventilator, on assist-control mode of ventilation with a rate of 24, her lungs were 50, FiO2 50% and PEEP of 6, his blood gas shows pO2 of 169, pCO2 40, pH of 7.36, patient is currently on Diprivan at 55 mics per kilo per minute, he is on 0.9 normal saline at 10 ML per hour, Levophed that he is at 0.02 mics per kilo per minute. Patient is having hemodialysis treatment right now. Patient received tracheostomy and PEG tube yesterday. His hemodialysis access was switched to right subclavian approach. He still has a central line in his groin which will need to be switched to a PICC line. Today's chest x-ray showed bilateral multifocal and confluent opacities consistent with COVID-19 infection with no significant interval change. Vital signs have been stable, his sat 98% on the above mentioned settings, requiring small dose of Levafed. 2 feedings will be started sometime today, he is on Rocephin for evidence of 5 beta-hemolytic strep in the sputum, follow-up sputum culture only showed Armida albicans. She had no acute events overnight. He re leonila on Decadron 6 mg daily, he is Eliquis will be started tonight if it's okay with surgery. No other acute events overnight, and -2.4 L fluid balance over the last 24 hours. He does remains generally swollen. On 07/23/2020 patient seen in follow-up, in the intensive care unit, patient received tracheostomy and PEG tube insertion on 07/21/2020, he remains trached to the ventilator and is currently on assist control mode of ventilation with a rate of 24, tacrolimus 450, FiO2 45% and PEEP of 5, this morning's blood gas shows pO2 of 149, pCO2 of 43, and pH of 7.39, he was given a sedation holiday yesterday, however he did not wake up or start following commands, neurology completed a brain CT which showed decreased attenuation within the high right frontal lobe without cortical increased attenuation which could reflect petechial hemorrhage, patient is currently not on any anticoagulation, is Eliquis has been on hold since 07/19/2020 at 11:00 in the morning. His hemoglobin today 7.4, his platelet count is 115, his d-dimer is currently is 8.18 on this morning's labs. Patient is not on any aspirin, or Plavix or any other anticoagulants. Patient was resedated he is currently on 35 mics per kilo per minute of Diprivan, and 0.9 and is infusing at KVO, no other infusions. Hemodynamically he has remained stable, he is in sinus rhythm sinus tachycardia on the monitor, this morning his PEG tube became plugged when the crushed oral medications were being instilled through the PEG tube, surgery was notified, and the PEG tube was removed, NG tube will be inserted, however no tube feedings or oral medications are to be put down the NG tube at this point. Patient remains on Rocephin for evidence of beta-hemolytic strep in the sputum, yesterday his central line was discontinued and the tip was sent for culture and the culture is pending at this time, however overnight has been no fever, his vital signs have remained stable. He had hemodialysis on 07/21/2020 with removal of 2.5 L in fluids. Today's labs show sodium of 136, potassium 3.5, chloride is 104, CO2 is 22, BUN 54, and creatinine is 2.6, his renal profile is improving, and patient remains on IV Lasix 80 mg twice daily, he is producing urine in the order of 35-60 ML per hour. No other acute events overnight, neurology is following, and is to comment on the findings of the CT of the brain. Today's chest x-ray shows continued diffuse bilateral groundglass airspace disease/pulmonary edema, with continue small effusions with adjacent atelectasis. LDH is down to 640, and CRP is 5.6 On 07/24/2020 patient seen in follow-up in the intensive care unit, he remains trached to the ventilator on assist control mode of ventilation with a rate of 24, tidal is 450, FiO2 of 45% and PEEP of 5, this morning's blood gas shows pO2 of 150; pCO2 40, pH of 7.4, and FiO2 was dropped down to 40% based on the above mentioned blood gases, IV fluids are 0.9 normal saline at a rate of 10 ML per hour, and TPN is infusing at 30 ML per hour, not on any vasopressor support, and patient has been off sedation since yesterday morning, were told by the nursing staff that at times he was noted to be attempting to wiggle toes on command. Remains quite lethargic right now, she is not opening eyes to voice, he is not following commands, he is very weak. Chest x-ray today shows diffuse bilateral infiltrates. Tracheostomy hemodialysis catheter appear to be in appropriate positions, NG tube has been inserted yesterday, and peg tube was discontinued, and surgeries plan on replacing the PEG tube on Sunday. Neurology is following, patient has no signs of obvious seizure activity, he does have cough and a gag reflex. But remains very obtunded, today's labs have been reviewed, showing white blood cell count of 4.1, hemoglobin of 7.4, electrolytes were within normal limits, BUN is 68, and creatinine is 3.54. Patient remains on IV Lasix 80 mg twice daily, is in -856 over the last 24 hours, he is tolerating tube feedings, no diarrhea noted. Yesterday his d-dimer came back at 8.18. Patient remains off Eliquis, and he received 300 mg of rectal aspirin per neurology. His most recent brain CT showed previously noted area of subarachnoid hemorrhage associated with abnormal hypodensity posterior laterally in the right frontal lobe was again noted, not significantly changed. Neurology thinks patient has suffered acute ischemic stroke with a small right frontal region with mild petechial hemorrhage in the cortical ribbon On 07/26/2020 patient seen in follow-up in the intensive care unit, he remains trached to the ventilator, assist control mode of ventilation with a rate of 20 with tidal volumes were 450, FiO2 of 40% and PEEP of 5, displays blood gas shows pO2 of 122, pCO2 of 43, and pH of 7.42. He is 1.9 normal seen at 10 mL an hour, TPN is a 55 ML per hour, Cleviprex is a 7 mg per hour. He has been off Diprivan and for several days now, he just has a morphine sulfate for discomfort on as needed basis, he is waking up to touch and sometimes he follows simple commands, but he is extremely weak and unable to squeeze with his hands on command. His tube feedings have been on hold and he is supposed to have a PEG tube reinserted today, NG tube is in place to low intermittent suction a total of 450 ML of gastric drainage in the last 24 hours, urine output has been in the order of 100-200 ML per hour. He remains on IV Lasix at 80 mg every 12 hours, he is maintaining negative fluid balance of 1.5 L over the last 24 hours. Has been afebrile. Today's chest x-ray shows persistent but improving infiltrates throughout both lung palafox. Today's labs show white blood cell count of 1.1, hemoglobin of 8.4, d-dimer is 11.69, patient has remained off anticoagulation for the PEG tube reinsertion today, sodium is 142, potassium is 4.2, chloride is 102, BUN is 90, creatinine is 3.54, AST is 72, ALT is 82. He is on IV Rocephin for evidence of beta-hemolytic strep in the sputum, and central line catheter tip was positive for Armida albicans. Patient has had no fever or chills. Partially patient has suffered an acute stroke with small subarachnoid hemorrhage, cardiology has been consulted for possibility if AGNIESZKA, which cardiology felt was not needed at this time. No other acute events overnight, no fever or chills, patient has not been able to receive his oral medications for high blood pressure, and has required Cleviprex. On 07/27/2020 patient seen in follow-up in intensive care unit, patient is trached to the ventilator with assist control mode of ventilation with a rate of 24, tidal volume was 450, FiO2 30% and PEEP of 5, no blood gases were done today, overnight he developed a fever with a temp of 101.9F, and today's blood work is down trending white count, neutropenia white blood cell count is 0.6, hemoglobin is 8.2, platelet count is 148, and there is a suspicion of p ossibility of fungal infection, and patient was started on Eraxis yesterday. New blood cultures and urine cultures have been sent, BMP shows a sodium of 140, potassium is 5.2, BUN of 103, and creatinine of 3.66, his inflammatory markers have been reviewed, and LDH is now within normal limits at 559, and CRP is 14.9. His central line catheter tip was positive for Amrida albicans, his sputum back on 07/08/2020 was positive for beta-hemolytic strep. Urine culture is currently pending, ID service is following. Patient had a new PEG tube placed on 07/26/2020 he continues on TPN for nutritional support, anticipate restarting his tube feedings this afternoon if cleared by surgery. Objective - Vital Signs Vital signs: Vital Signs Temp 101.3 F H 07/27/20 08:00 Pulse 131 H 07/27/20 10:00 Resp 28 H 07/27/20 10:00 BP 109/68 07/27/20 10:00 Pulse Ox 93 L 07/27/20 10:00 Intake & Output 07/26/20 07/27/20 07/27/20 18:59 06:59 18:59 Intake Total 4020.585 4060.417 97.267 Output Total 2194 2024 295 Balance -1021.400 -193.583 -197.733 Weight 107.8 kg 107.8 kg Intake: IV 745 660 65 0.9 Normal Saline 10 0.9 Normal Saline at KVO 10 Mvi, Adult No.4 with Vit 660 660 55 K 10 ml Trace (Conc-1Ml/ Dose) 1 ml Parenteral Electrolytes 20 ml Potassium Chloride 20 meq In Amino Acid 5%-D15w 1, 000 ml @ 55 mls/hr IV . [id number] [facility] Rx#:[id number] cefTRIAXone 1 gm In 50 Sodium Chloride 0.9% 50 ml @ 100 mls/hr IVPB Q24HR [facility] Rx#:[id number] Intake, IV Titration 001.235 3021.417 32.267 Amount Anidulafungin 200 mg In 200 Sodium Chloride 0.9% 200 ml @ 84 mls/hr IVPB ONCE ONE Rx#:[id number] Clevidipine Butyrate 25 118.600 55.000 2.267 mg In Empty Bag 1 bag @ 1 MG/HR 2 mls/hr IV .Q24H [facility] Rx#:[id number] Mvi, Adult No.4 with Vit 996.417 K 10 ml Trace (Conc-1Ml/ Dose) 1 ml Parenteral Electrolytes 20 ml Potassium Chloride 40 meq In Amino Acid 5%-D15w 1, 000 ml @ 55 mls/hr IV . Q19H7M [facility] Rx#:[id number] Sodium Chloride 0.9% 1, 110 120 30 000 ml @ 10 mls/hr IV . Q24H [facility] Rx#:[id number] Output: Urine 2195 2025 295 Other: Voiding Method Indwelling Catheter Indwelling Catheter ABP, PAP, CO, CI - Last Documented Arterial Blood Pressure 118/64 - Exam GENERAL EXAM: Sedated, morbidly obese 51-year-old white male, trached to the ventilator, on assist-control mode of ventilation with a 40% PEEP of 5, comfortable in no apparent distress. HEAD: Normocephalic/atraumatic. EYES: Normal reaction of pupils, equal size. Conjunctiva pink, sclera white. NOSE: Clear with pink turbinates. THROAT: No erythema or exudates. NECK: No masses, no JVD, no thyroid enlargement, no adenopathy. Midline tracheostomy connected to the ventilator CHEST: No chest wall deformity. Symmetrical expansion. Right subclavian permacath in place and patient is receiving hemodialysis LUNGS: Equal air entry with no crackles, wheeze, rhonchi or dullness. CVS: Regular rate and rhythm, normal S1 and S2, no gallops, no murmurs, no rubs ABDOMEN: Soft, nontender. No hepatosplenomegaly, normal bowel sounds, no guarding or rigidity. PEG tube in place EXTREMITIES: No clubbing, generalized edema no cyanosis, 2+ pulses and upper and lower extremities. Patient has black fingertips on his left hand MUSCULOSKELETAL: Muscle strength and tone normal. Right groin temporary hemodialysis catheter in place SPINE: No scoliosis or deformity SKIN: No rashes CENTRAL NERVOUS SYSTEM: Sedated, intubated. No focal deficits, tone is normal in all 4 extremities. - Labs CBC & Chem 7: 07/27/20 03:30 07/27/20 03:30 Labs: Abnormal Lab Results - Last 24 Hours (Table) 07/26/20 07/26/20 07/26/20 Range/Units 12:17 17:55 23:50 WBC (3.8-10.6) k/uL RBC (4.30-5.90) m/uL Hgb (13.0-17.5) gm/dL Hct (39.0-53.0) % RDW (11.5-15.5) % Plt Count (150-450) k/uL Potassium (3.5-5.1) mmol/L BUN (9-20) mg/dL Creatinine (0.66-1.25) mg/dL Glucose (74-99) mg/dL POC Glucose (mg/dL) 143 H 112 H 125 H (75-99) mg/dL Total Bilirubin (0.2-1.3) mg/dL AST (17-59) U/L ALT (4-49) U/L C-Reactive Protein (<1.0) mg/dL Total Protein (6.3-8.2) g/dL Albumin (3.5-5.0) g/dL 07/27/20 07/27/20 07/27/20 Range/Units 03:30 03:30 06:01 WBC 0.6 L* (3.8-10.6) k/uL RBC 2.65 L (4.30-5.90) m/uL Hgb 8.2 L (13.0-17.5) gm/dL Hct 24.8 L (39.0-53.0) % RDW 16.5 H (11.5-15.5) % Plt Count 148 L (150-450) k/uL Potassium 5.2 H (3.5-5.1) mmol/L BUN 103 H* (9-20) mg/dL Creatinine 3.66 H (0.66-1.25) mg/dL Glucose 120 H (74-99) mg/dL POC Glucose (mg/dL) 119 H (75-99) mg/dL Total Bilirubin 3.4 H (0.2-1.3) mg/dL AST 79 H (17-59) U/L ALT 115 H (4-49) U/L C-Reactive Protein 14.9 H (<1.0) mg/dL Total Protein 5.7 L (6.3-8.2) g/dL Albumin 3.2 L (3.5-5.0) g/dL Microbiology - Last 24 Hours (Table) 07/26/20 21:17 Urine Culture - Preliminary Urine,Catheterized Assessment and Plan Plan: Assessment: #1. Acute hypoxic respiratory failure secondary to COVID-19 pneumonia. Patient received toci and convalescent plasma., Patient is status post tracheostomy and PEG tube placement on 07/21/2020. #2. Neutropenia, rule out possibility of fungal infection, cover the patient with Eraxis #3. Acute hemorrhagic stroke, in right frontal region with mild petechial hemorrhage in the cortical ribbon #4. Acute kidney injury requiring dialysis, improving #5. Altered mental status, related to toxic metabolic encephalopathy, severe, related to multiple organ dysfunction #6. Possible petechial hemorrhage within the right frontal lobe, seen on the CT of the brain, neurology is following #7. Severe metabolic acidosis, improved and resolved after dialysis. #8. Hyperkalemia secondary to above, improved with hemodialysis #9. Benign essential hypertension. #10. Superficial vein thromboses and left cephalic vein and left basilic vein #11. Heparin-induced thrombocytopenia, patient was on Argatroban and Eliquis which are on hold right now #12. History of obstructive sleep apnea syndrome #13. Morbid obesity #14. Increased d-dimer related to COVID-19, patient was started on Eliquis which will be restarted after his surgical procedures #15. Plugged PEG tube, the PEG tube was discontinued today at the bedside on 07/23/2020, new PEG tube was inserted on 07/26/2020 Plan: Continue with current vent settings Continue current antibiotics Cultures are pending ID service is following Check if neurology wants to restart Eliquis Today's lab work and chest x-ray have been noted Discontinue TPN once the tube feedings have been started We'll continue to closely follow EGG CRATER to arrange for LTAC placement I performed a history & physical examination of the patient and discussed their management with my nurse practitioner, Nelia Conley. I reviewed the nurse practitioner's note and agree with the documented findings and plan of care. Lung sounds are positive for diminished breath sounds The findings and the impression was discussed with the patient. I attest to the documentation by the nurse practitioner. Time with Patient: Greater than 30
[2020-07-27 11:26] LABS: Glucose,Whole Blood 124 mg/dL (75-99)
[2020-07-27 12:44] LABS: Ferritin 835.4 ng/mL (22.0-322.0)
--- NOTE | 2020-07-27 13:28 | P.PN ---
Subjective Progress Note Date: 07/27/20 CHIEF COMPLAINT: Shortness of breath HISTORY OF PRESENT ILLNESS: Patient currently in the ICU and on mechanical ventilation. He has been on the vent since 07/05/2020. He has acute hypoxic respiratory failure due to COVID-19 pneumonia. Patient is status post tracheostomy and PEG tube placement on 07/21/20. However, patient's PEG tube did get plugged. He is now status post PEG tube replacement. Tube feedings will be started today. He did have a fever of 101.9 and has been tachycardic Patient seen and examined with Dr. Mcdowell PHYSICAL EXAM: VITAL SIGNS: Reviewed. GENERAL: Well-developed in no acute distress. HEENT: No sclera icterus. Extraocular movements grossly intact. Moist buccal m ucosa. Head is atraumatic, normocephalic. Tracheostomy site clean dry and intact ABDOMEN: Soft. Nondistended. Nontender. PEG tube site clean dry and intact NEUROLOGIC: Intubated and sedated ASSESSMENT: 1. Acute hypoxic respiratory failure secondary to acute COVID-19 pneumonia with prolonged mechanical ventilation. Status post tracheostomy placement 2. Severe Protein calorie malnutrition status post PEG tube placement PLAN: -Okay to resume tube feedings through PEG tube -Continue ICU management -Continue supportive care Physician Occupational Therapy Specialist note has been reviewed by physician. Signing provider agrees with the documented findings, assessment, and plan of care. Objective - Vital Signs Vital signs: Vital Signs Temp 101.3 F H 07/27/20 08:00 Pulse 130 H 07/27/20 12:00 Resp 24 07/27/20 12:00 BP 90/61 07/27/20 12:00 Pulse Ox 98 07/27/20 12:00 Intake & Output 07/26/20 07/27/20 07/27/20 18:59 06:59 18:59 Intake Total 5759.694 2476.417 97.267 Output Total 2194 2024 295 Balance -1021.400 -193.583 -197.733 Weight 107.8 kg 107.8 kg Intake: IV 745 660 65 0.9 Normal Saline 10 0.9 Normal Saline at KVO 10 Mvi, Adult No.4 with Vit 660 660 55 K 10 ml Trace (Conc-1Ml/ Dose) 1 ml Parenteral Electrolytes 20 ml Potassium Chloride 20 meq In Amino Acid 5%-D15w 1, 000 ml @ 55 mls/hr IV . [id number] [facility] Rx#:[id number] cefTRIAXone 1 gm In 50 Sodium Chloride 0.9% 50 ml @ 100 mls/hr IVPB Q24HR [facility] Rx#:[id number] Intake, IV Titration 894.641 1261.417 32.267 Amount Anidulafungin 200 mg In 200 Sodium Chloride 0.9% 200 ml @ 84 mls/hr IVPB ONCE ONE Rx#:[id number] Clevidipine Butyrate 25 118.600 55.000 2.267 mg In Empty Bag 1 bag @ 1 MG/HR 2 mls/hr IV .Q24H [facility] Rx#:[id number] Mvi, Adult No.4 with Vit 996.417 K 10 ml Trace (Conc-1Ml/ Dose) 1 ml Parenteral Electrolytes 20 ml Potassium Chloride 40 meq In Amino Acid 5%-D15w 1, 000 ml @ 55 mls/hr IV . Q19H7M [facility] Rx#:[id number] Sodium Chloride 0.9% 1, 110 120 30 000 ml @ 10 mls/hr IV . Q24H [facility] Rx#:[id number] Output: Urine 2195 5 295 Other: Voiding Method Indwelling Catheter Indwelling Catheter Indwelling Catheter ABP, PAP, CO, CI - Last Documented Arterial Blood Pressure 118/64 - Labs CBC & Chem 7: 07/27/20 03:30 07/27/20 03:30 Labs: Abnormal Lab Results - Last 24 Hours (Table) 07/26/20 07/26/20 07/27/20 Range/Units 17:55 23:50 03:30 WBC 0.6 L* (3.8-10.6) k/uL RBC 2.65 L (4.30-5.90) m/uL Hgb 8.2 L (13.0-17.5) gm/dL Hct 24.8 L (39.0-53.0) % RDW 16.5 H (11.5-15.5) % Plt Count 148 L (150-450) k/uL Potassium (3.5-5.1) mmol/L BUN (9-20) mg/dL Creatinine (0.66-1.25) mg/dL Glucose (74-99) mg/dL POC Glucose (mg/dL) 112 H 125 H (75-99) mg/dL Ferritin (22.0-322.0) ng/mL Total Bilirubin (0.2-1.3) mg/dL AST (17-59) U/L ALT (4-49) U/L C-Reactive Protein (<1.0) mg/dL Total Protein (6.3-8.2) g/dL Albumin (3.5-5.0) g/dL 07/27/20 07/27/20 07/27/20 Range/Units 03:30 06:01 11:25 WBC (3.8-10.6) k/uL RBC (4.30-5.90) m/uL Hgb (13.0-17.5) gm/dL Hct (39.0-53.0) % RDW (11.5-15.5) % Plt Count (150-450) k/uL Potassium 5.2 H (3.5-5.1) mmol/L BUN 103 H* (9-20) mg/dL Creatinine 3.66 H (0.66-1.25) mg/dL Glucose 120 H (74-99) mg/dL POC Glucose (mg/dL) 119 H 124 H (75-99) mg/dL Ferritin 835.4 H (22.0-322.0) ng/mL Total Bilirubin 3.4 H (0.2-1.3) mg/dL AST 79 H (17-59) U/L ALT 115 H (4-49) U/L C-Reactive Protein 14.9 H (<1.0) mg/dL Total Protein 5.7 L (6.3-8.2) g/dL Albumin 3.2 L (3.5-5.0) g/dL Microbiology - Last 24 Hours (Table) 07/26/20 21:17 Urine Culture - Preliminary Urine,Catheterized
--- NOTE | 2020-07-27 13:35 | P.PN ---
Subjective This is a pleasant 53 years old male with past medical history of hypertension, osteoarthritis, sleep apnea. Presents with respiratory distress secondary to covid pneumonia and secondary bacterial infection is suspected as well with positive sputum culture for streptococcus, group C. Currently remains on ceftriaxone per ID team. Patient has prolonged course in the ICU. He was on mechanical ventilation and need a small dose of Levophed at the beginning , Also patient has elevated troponin and he was started on heparin drip however he developed coffee-ground emesis via anicteric tube, heparin drip was stopped and hemoglobin is stable and his hit antibodies came back positive, [employer] found to his elevated troponin is secondary to his Covid infection and hypotension, he was started on argatroban drip for suspected left hand ischemia . Currently he kept on aspirin one 50 mg rectally daily, with no any anticoagulation, Eliquis is held for PEG tube placement His renal function worsened at certain point needing hemodialysis due to his Covid infectionl, nonoliguric. Currently he is off dialysis Receiving nutrition through TPN, and scheduled for PEG tube placement today Plan for him was to go to LTAC wants PEG tube was placed and functional Patient is currently on eraxis, he is also on dexamethasone , Lasix IV 80 mg twice daily, Protonix 40 mg IV twice macey I called his medical insurance provider [employer] at [phone] extension [phone] at 2 PM, however the midline was 2 PM today , of physicians were busy per staff and they said they will call me tomorrow 8:30-8:40 5 AM, I provided my cell phone to [employer] 07/27/2020 Patient remains in the ICU, his vent dependent. Status post tracheostomy. He got his PEG tube yesterday and start tube feeding today.. Associated with leukopenia He tolerated that well so far per ICU nurse. His postoperative go to LTAC tomorrow if he was going to be stable however he is a spiking temperature last night and today 101.9 Labs today showing leukopenia with ellipses 0.6, hemoglobin stable 8.2 as well as platelets 148 k. . Glucose control, creatinine 3.6 which is a stable over the last 10 days. inflammatory markers still elevated but stable with ferritin is 35. Total jennifer irubin is 3.4, liver enzymes mildly elevated with AST 79 and AFP 115, C-reactive protein is elevated at 14.9 Chest x-ray showing bilateral multifocal opacity most prominent in the apices and bases on background low lung volume consistent with COVID-19 infection. No interval change from one day earlier Currently patient kept on Eraxis, ceftriaxone. Also she is on dexamethasone 4 mg IV daily, Lasix 80 mg IV daily. Today I did appear to be with Dr. Johnson from [facility], unfortunately she rejected the case sitting there is no documentation of weaning. A chest hysterectomy, I tried to explain to her that usually we do a sedation holiday and weaning trial prior to any tracheostomy under the care of critical care team however she was asking were in the chart documented, it was difficult to locate documentation about weaning trial in this patient with more than 3 weeks hospital stays and in a few minutes over the phone, eventually she ejected the case as above. Discussed with neonatal social worker Review of systems: N/a Active Medications Generic Name Dose Route Start Last Admin Trade Name Freq PRN Reason Stop Dose Admin Acetaminophen 650 mg 07/26/20 20:36 07/27/20 12:24 Acetaminophen Suppository 650 Mg Supp RECTAL 650 mg Q6HR PRN Administration Fever and/ or Pain Albuterol Sulfate 2 puff 07/05/20 08:00 07/27/20 11:29 Albuterol Hfa Inhaler INHALATION 2 puff RT-TID PRAFUL Administration Aspirin 150 mg 07/26/20 14:30 07/27/20 09:38 Aspirin 300 Mg Supp RECTAL 150 mg DAILY PRAFUL Administration Darbepoetin Rodrigo 40 mcg 07/14/20 11:00 07/21/20 11:49 Darbepoetin Rodrigo 40 Mcg/0.4 Ml Syringe SQ 40 mcg Q7D PRAFUL Administration Dexamethasone Sodium Phosphate 4 mg 07/27/20 09:00 07/27/20 09:29 Dexamethasone Sod Phosphate 4 Mg/Ml 1 Ml Vial IV 4 mg DAILY PRAFUL Administration Furosemide 80 mg 07/28/20 09:00 Furosemide 10 Mg/Ml 10 Ml Vial IV DAILY PRAFUL Ceftriaxone Sodium 1 gm/ 50 mls @ 100 mls/hr 07/16/20 09:00 07/27/20 09:33 Sodium Chloride IVPB 100 mls/hr Q24HR PRAFUL Administration Norepinephrine Bitartrate 8 mg 258 mls @ 12.403 mls/hr 07/21/20 12:45 07/26/20 15:37 / Sodium Chloride IV Not Given .[id number] PRAFUL Protocol 0.05 MCG/KG/MIN Sodium Chloride 1,000 mls @ 10 mls/hr 07/22/20 19:30 07/26/20 18:04 Saline 0.9% IV 10 mls/hr .Q24H PRAUFL Administration Clevidipine 25 mg/ IV Solution 50 mls @ 2 mls/hr 07/24/20 12:15 07/27/20 07:01 IV 0 mg/hr .Q24H PRAFUL 0 mls/hr Titration Protocol 1 MG/HR Parenteral Vitamin Supplement 1,051 mls @ 55 mls/hr 07/26/20 08:00 07/27/20 00:47 10 ml/ Zinc/Copper/Manganese/ IV 07/27/20 19:00 55 mls/hr Selenium 1 ml/ Parenteral .Q19H7M PRAFUL Administration Electrolytes 20 ml/ Potassium Chloride 40 meq/ Amino Acids/ Dextrose Anidulafungin 100 mg/ Sodium 130 mls @ 84 mls/hr 07/27/20 09:00 07/27/20 09:33 Chloride IVPB 84 mls/hr DAILY PRAFUL Administration Parenteral Vitamin Supplement 1,041 mls @ 55 mls/hr 07/27/20 20:00 10 ml/ Zinc/Copper/Manganese/ IV Selenium 1 ml/ Parenteral .[id number] PRAFUL Electrolytes 20 ml/ Potassium Chloride 20 meq/ Amino Acids/ Dextrose Insulin Aspart 0 unit 07/11/20 12:00 07/27/20 12:05 Insulin Aspart (Novolog) 100 Unit/Ml Vial SQ Not Given Q6H PRAFUL Protocol Miscellaneous Information 1 each 07/25/20 05:03 Potassium Replacement Protocol 1 Each Misc MISCELLANE DAILY PRN Per Protocol Protocol Morphine Sulfate 4 mg 07/24/20 12:12 07/27/20 02:06 Morphine Sulfate 4 Mg/Ml Syringe IVP 4 mg Q4HR PRN Administration Pain Pantoprazole Sodium 40 mg 07/05/20 21:00 07/27/20 09:28 Pantoprazole 40 Mg/10 Ml Vial IVP 40 mg BID PRAFUL Administration Objective - Vital Signs Vital signs: Vital Signs Temp 101.3 F H 07/27/20 08:00 Pulse 130 H 07/27/20 12:00 Resp 24 07/27/20 12:00 BP 90/61 07/27/20 12:00 Pulse Ox 98 07/27/20 12:00 Intake & Output 07/26/20 07/27/20 07/27/20 18:59 06:59 18:59 Intake Total 2716.690 8628.417 97.267 Output Total 2194 2024 295 Balance -1021.400 -193.583 -197.733 Weight 107.8 kg 107.8 kg Intake: IV 745 660 65 0.9 Normal Saline 10 0.9 Normal Saline at KVO 10 Mvi, Adult No.4 with Vit 660 660 55 K 10 ml Trace (Conc-1Ml/ Dose) 1 ml Parenteral Electrolytes 20 ml Potassium Chloride 20 meq In Amino Acid 5%-D15w 1, 000 ml @ 55 mls/hr IV . [id number] PRAFUL Rx#:[id number] cefTRIAXone 1 gm In 50 Sodium Chloride 0.9% 50 ml @ 100 mls/hr IVPB Q24HR PRAFUL Rx#:[id number] Intake, IV Titration 710.036 3904.417 32.267 Amount Anidulafungin 200 mg In 200 Sodium Chloride 0.9% 200 ml @ 84 mls/hr IVPB ONCE ONE Rx#:[id number] Clevidipine Butyrate 25 118.600 55.000 2.267 mg In Empty Bag 1 bag @ 1 MG/HR 2 mls/hr IV .Q24H PRAFUL Rx#:[id number] i, Adult No.4 with Vit 996.417 K 10 ml Trace (Conc-1Ml/ Dose) 1 ml Parenteral Electrolytes 20 ml Potassium Chloride 40 meq In Amino Acid 5%-D15w 1, 000 ml @ 55 mls/hr IV . Q19H7M PRAFUL Rx#:[id number] Sodium Chloride 0.9% 1, 110 120 30 000 ml @ 10 mls/hr IV . Q24H PRAFUL Rx#:[id number] Output: Urine 2194 2024 295 Other: Voiding Method Indwelling Catheter Indwelling Catheter Indwelling Catheter ABP, PAP, CO, CI - Last Documented Arterial Blood Pressure 118/64 - Exam -GENERAL: The patient is intubated and sedated, well nourished. HEENT: Pupils are round and equally reacting to light. EOMI. No scleral icterus. No conjunctival pallor. Normocephalic, atraumatic. No pharyngeal erythema. No thyromegaly. CARDIOVASCULAR: S1 and S2 present. No murmurs, rubs, or gallops. PULMONARY: Chest is clear to auscultation, no wheezing or crackles. ABDOMEN: Soft, nontender, nondistended, normoactive bowel sounds. No palpable organomegaly. MUSCULOSKELETAL: No joint swelling or deformity. EXTREMITIES: No cyanosis, clubbing, or pedal edema. NEUROLOGICAL: Gross neurological examination did not reveal any focal deficits. SKIN: No rashes. no petechiae. - Labs CBC & Chem 7: 07/27/20 03:30 07/27/20 03:30 Labs: Abnormal Lab Results - Last 24 Hours (Table) 07/26/20 07/26/20 07/27/20 Range/Units 17:55 23:50 03:30 WBC 0.6 L* (3.8-10.6) k/uL RBC 2.65 L (4.30-5.90) m/uL Hgb 8.2 L (13.0-17.5) gm/dL Hct 24.8 L (39.0-53.0) % RDW 16.5 H (11.5-15.5) % Plt Count 148 L (150-450) k/uL Potassium (3.5-5.1) mmol/L BUN (9-20) mg/dL Creatinine (0.66-1.25) mg/dL Glucose (74-99) mg/dL POC Glucose (mg/dL) 112 H 125 H (75-99) mg/dL Ferritin (22.0-322.0) ng/mL Total Bilirubin (0.2-1.3) mg/dL AST (17-59) U/L ALT (4-49) U/L C-Reactive Protein (<1.0) mg/dL Total Protein (6.3-8.2) g/dL Albumin (3.5-5.0) g/dL 07/27/20 07/27/20 07/27/20 Range/Units 03:30 06:01 11:25 WBC (3.8-10.6) k/uL RBC (4.30-5.90) m/uL Hgb (13.0-17.5) gm/dL Hct (39.0-53.0) % RDW (11.5-15.5) % Plt Count (150-450) k/uL Potassium 5.2 H (3.5-5.1) mmol/L BUN 103 H* (9-20) mg/dL Creatinine 3.66 H (0.66-1.25) mg/dL Glucose 120 H (74-99) mg/dL POC Glucose (mg/dL) 119 H 124 H (75-99) mg/dL Ferritin 835.4 H (22.0-322.0) ng/mL Total Bilirubin 3.4 H (0.2-1.3) mg/dL AST 79 H (17-59) U/L ALT 115 H (4-49) U/L C-Reactive Protein 14.9 H (<1.0) mg/dL Total Protein 5.7 L (6.3-8.2) g/dL Albumin 3.2 L (3.5-5.0) g/dL Microbiology - Last 24 Hours (Table) 07/26/20 21:17 Urine Culture - Preliminary Urine,Catheterized Assessment and Plan Assessment: Acute Covid pneumonia New fever and leukopenia, reculture sent for urine and blood Status post Mild septic shock secondary to above especially his bacterial infection Acute hypoxic respiratory failure needing mechanical ventilation Acute kidney injury needed hemodialysis , currently he is off HD Acute ischemic stroke small, right frontal region with mild petechial hemorrhage in the cortical ribbon. per neurology service AMS secondary to metabolic encephalogpathy and stroke, s/p PEG placement and tracheostomy as he could not be weaned off m.ventilation Suspected ischemia of the left hand on anticoagulation , resolved now Coffee ground vomiting with suspected acute GI bleed Thrombocytopenia secondary to sepsis and heparin induced thrombocytopenia Elevated troponin, secondary to renal function impairment, viral infection and hypotension Plan: This is a pleasant 59 years old male who presents with Covid pneumonia, on mechanical ventilation and AMS. Continue with mechanical ventilation for pulmonary/critical care team will follow the patient closely.Continue with multiple vitamin zinc and vitamin D Reculture urine or blood in view of a spiking temperature. Currently on argatroban drip for pulmonary team. Keep monitoring hemoglobin and platelets GI and cardiology, nephrology team on the case Labs and medication were reviewed.. Continue same treatment. Continue with symptomatic treatment. Resume home medication. Monitor lytes and vitals. DVT and GI prophylaxis. Further recommendations as per clinical course of the patient DVT prophylaxis: eliquis on hold GI Prophylaxis: Ppi, Protonix twice a day Prognosis is guarded
--- NOTE | 2020-07-27 15:48 | P.PN ---
Subjective Progress Note Date: 07/27/20 I'm seeing the patient for the first time. Please refer to Dr. Gaspar's note for further neurological detailed the history as well as a workup. The patient's nurse and she stated that she stated the patient was moving his feet briefly. Patient has PEG and Trach. Is not on any sedation. Patient is pending that to be discharged LTAC. Last AST 79 and ALT is 1:15 which is trending up for ALT. Objective - Vital Signs Vital signs: Vital Signs Temp 101.3 F H 07/27/20 08:00 Pulse 121 H 07/27/20 15:00 Resp 29 H 07/27/20 15:00 BP 97/65 07/27/20 15:00 Pulse Ox 99 07/27/20 15:00 Intake & Output 07/26/20 07/27/20 07/27/20 18:59 06:59 18:59 Intake Total 9791.927 8747.417 237.267 Output Total 2195 2025 650 Balance -1021.400 -193.583 -412.733 Weight 107.8 kg 107.8 kg Intake: IV 745 660 115 0.9 Normal Saline 60 0.9 Normal Saline at KVO 10 Mvi, Adult No.4 with Vit 660 660 55 K 10 ml Trace (Conc-1Ml/ Dose) 1 ml Parenteral Electrolytes 20 ml Potassium Chloride 20 meq In Amino Acid 5%-D15w 1, 000 ml @ 55 mls/hr IV . [id number] PRAFUL Rx#:[id number] cefTRIAXone 1 gm In 50 Sodium Chloride 0.9% 50 ml @ 100 mls/hr IVPB Q24HR PRAFUL Rx#:[id number] Intake, IV Titration 497.322 5595.417 32.267 Amount Anidulafungin 200 mg In 200 Sodium Chloride 0.9% 200 ml @ 84 mls/hr IVPB ONCE ONE Rx#:[id number] Clevidipine Butyrate 25 118.600 55.000 2.267 mg In Empty Bag 1 bag @ 1 MG/HR 2 mls/hr IV .Q24H PRAFUL Rx#:[id number] Mvi, Adult No.4 with Vit 996.417 K 10 ml Trace (Conc-1Ml/ Dose) 1 ml Parenteral Electrolytes 20 ml Potassium Chloride 40 meq In Amino Acid 5%-D15w 1, 000 ml @ 55 mls/hr IV . Q19H7M PRAFUL Rx#:[id number] Sodium Chloride 0.9% 1, 110 120 30 000 ml @ 10 mls/hr IV . Q24H PRAFUL Rx#:[id number] Tube Feeding 60 Other 30 Output: Urine 2194 2024 650 Other: Voiding Method Indwelling Catheter Indwelling Catheter Indwelling Catheter ABP, PAP, CO, CI - Last Documented Arterial Blood Pressure 118/64 - Exam On examination patient is a middle aged male, appears somnolent at this time. He does open his eyes to calling his name, follows some commands like wiggling his toes. There is very minimal to no movement of the hand. Patient sometimes makes facial expression. Pupils are round and reacting. Patient is apparently legally blind. It appears that he does track sometimes. Tone is decreased, particularly in the hands. Patient has demarcation of the fingertips of the left hand from ischemia. It is evolving. Reflexes are absent, plantars are flat. Patient has moderate peripheral edema. GENERAL: The patient is lying in bed and is not in acute distress. RESPIRATORY: Trach and on ventilator. Is breathing over the vent (AC set at 24 and is breathing at 30). NEUROLOGICAL: Higher mental function: The patient is awake and no verbally responsive and not following commands. Cranial nerves: The pupils are round, equal and reactive to light. Primary gaze is midline. With threat patient blinks eyes bilaterally. No facial weakness bilaterally. Otherwise could not assess rest of cranial nerves because of his condition. Motor: The strength is 0/5 throughout and to painful stimuli grimaces face to pain. Decrease tone in Bilateral upper > lower extremities. Cerebellum: Could not assess. Sensation: Could not assess light touch and to painful stimuli grimaces face. - Labs CBC & Chem 7: 07/27/20 03:30 07/27/20 15:07 Labs: Abnormal Lab Results - Last 24 Hours (Table) 07/26/20 07/26/20 07/27/20 Range/Units 17:55 23:50 03:30 WBC 0.6 L* (3.8-10.6) k/uL RBC 2.65 L (4.30-5.90) m/uL Hgb 8.2 L (13.0-17.5) gm/dL Hct 24.8 L (39.0-53.0) % RDW 16.5 H (11.5-15.5) % Plt Count 148 L (150-450) k/uL Potassium (3.5-5.1) mmol/L BUN (9-20) mg/dL Creatinine (0.66-1.25) mg/dL Glucose (74-99) mg/dL POC Glucose (mg/dL) 112 H 125 H (75-99) mg/dL Ferritin (22.0-322.0) ng/mL Total Bilirubin (0.2-1.3) mg/dL AST (17-59) U/L ALT (4-49) U/L C-Reactive Protein (<1.0) mg/dL Total Protein (6.3-8.2) g/dL Albumin (3.5-5.0) g/dL 07/27/20 07/27/20 07/27/20 Range/Units 03:30 06:01 11:25 WBC (3.8-10.6) k/uL RBC (4.30-5.90) m/uL Hgb (13.0-17.5) gm/dL Hct (39.0-53.0) % RDW (11.5-15.5) % Plt Count (150-450) k/uL Potassium 5.2 H (3.5-5.1) mmol/L BUN 103 H* (9-20) mg/dL Creatinine 3.66 H (0.66-1.25) mg/dL Glucose 120 H (74-99) mg/dL POC Glucose (mg/dL) 119 H 124 H (75-99) mg/dL Ferritin 835.4 H (22.0-322.0) ng/mL Total Bilirubin 3.4 H (0.2-1.3) mg/dL AST 79 H (17-59) U/L ALT 115 H (4-49) U/L C-Reactive Protein 14.9 H (<1.0) mg/dL Total Protein 5.7 L (6.3-8.2) g/dL Albumin 3.2 L (3.5-5.0) g/dL Microbiology - Last 24 Hours (Table) 07/26/20 21:17 Urine Culture - Preliminary Urine,Catheterized Assessment and Plan Assessment: * Altered mental status change due to Toxic metabolic encephalopathy, slightly improved. Reasons multifactorial as mentioned. * Acute ischemic stroke small, right frontal region with mild petechial hemorrhage in the cortical ribbon. * Slight elevated LFT's--worsening. * Acute kidney injury requiring hemodialysis. Renal functions improving. * Acute hypoxic respiratory failure from COVID-19 related pneumonia s/p trach on 07/21/2020. * Status post revision of PEG tube. * Left hand ischemia * Anemia * Leukopenia (new onset) * Hypertension * Morbid obesity * Legal blindness * Obstructive sleep apnea Plan: * Continue aspirin 150 mg. * Carotid Doppler showed no hemodynamic significant stenosis of the proximal ICA. * 2-D echo from 07/06/2020 showed normal left-ventricular size. Moderate con centric LVH. EF is 55-60%. Right ventricle is severely enlarged. Mild TR. * Dr. Gaspar Spoke to patient's brother on the phone. Discussed with him about the results of the CAT scan and the current neurological condition. Discussed with him about further evaluation for mechanism of stroke with possible AGNIESZKA. He consented to proceed with AGNIESZKA to evaluate for the source of stroke. * Spoke to medical appointment scheduler Dr. Koroma. He believes AGNIESZKA will not change the management, as patient at present is not a candidate for anticoagulation just because of his hemorrhagic stroke. 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 * EEG 07/20/2020 also revealed severe degree of background slowing consistent with encephalopathy. No epileptiform activity seen. * Prognosis is still very guarded based upon his current neurological status, physical examination and underlying multiple comorbid conditions. * Stay off anticoagulation, except for DVT prophylaxis and aspirin regimen. * Ordered ammonia level. If elevated will defer management to ICU and primary team. * Will defer medical management to the ICU team and primary team. * The patient prognosis is very guarded. On examination patient had only brainstem reflexes. The patient's quality of life seems poor. * Pending placement to LTAC. The plan is discussed with the patient's nurse. Raymundo Meneses MD Neuro-Hospitalist Time with Patient: Less than 30
[2020-07-27 17:58] LABS: Glucose,Whole Blood 117 mg/dL (75-99)
[2020-07-27] MEDS: NOREPINEPHRINE 8 MG in SODIUM CHLORIDE 0.9% 250 ML IV SCH (18:32)
[2020-07-27] MEDS ORDERED: MVI, ADULT NO.4 WITH VIT K 10 ML, TRACE (CONC-1ML/DOSE) 1 ML, PARENTERAL ELECTROLYTES 2... IV SCH ×5 (20:00)
[2020-07-27] MEDS: SODIUM BICARBONATE TAB 650 MG TAB PO SCH (21:14)
[2020-07-27] MEDS: METOCLOPRAMIDE 5 MG/ML 2 ML VIAL IVP SCH (21:14)
[2020-07-27] MEDS: SODIUM CHLORIDE 0.9% 1,000 ML IV SCH (21:21)
[2020-07-27 23:48] LABS: Glucose,Whole Blood 95 mg/dL (75-99)
[2020-07-28] MEDS: INSULIN ASPART (NovoLOG) 100 UNIT/ML VIAL SQ SCH ×4 (00:18→18:31)
[2020-07-28 05:55] LABS: Anisocytosis Slight; HCT 20.3 % (39.0-53.0); MCH 30.1 pg (25.0-35.0); MCHC 32.2 g/dL (31.0-37.0); MCV 93.4 fL (80.0-100.0); Mean Platelet Volume 9.6; Platelet Count 108 k/uL (150-450); RBC 2.17 m/uL (4.30-5.90); RDW 16.6 % (11.5-15.5)
[2020-07-28 06:07] LABS: Glucose,Whole Blood 130 mg/dL (75-99)
[2020-07-28 06:13] LABS: WBC 0.2 k/uL (3.8-10.6)
[2020-07-28 06:15] LABS: HGB 6.5 gm/dL (13.0-17.5)
[2020-07-28 06:42] LABS: Albumin 2.7 g/dL (3.5-5.0); Calcium 8.3 mg/dL (8.4-10.2); Potassium 4.4 mmol/L (3.5-5.1); Total Bilirubin 2.7 mg/dL (0.2-1.3); Total Protein 5.1 g/dL (6.3-8.2)
[2020-07-28] MEDS: ALBUTEROL HFA INHALER INHALATION SCH ×3 (07:16→19:29)
--- NOTE | 2020-07-28 07:27 | XR ---
EXAMINATION TYPE: XR chest 1V portable DATE OF EXAM: 07/28/2020 COMPARISON: 07/27/2020 HISTORY: SOB, Follow Up FINDINGS: Indwelling tubes and catheters are unchanged. No change in bibasilar opacities. Stable appearance of the cardio-mediastinal structures at this time. Pleural effusion unchanged. IMPRESSION: 1. Stable portable chest. Clinical correlation and follow up until resolution is recommended.
[2020-07-28 08:07] LABS: C Reactive Protein 29.6 mg/dL (<1.0)
[2020-07-28] MEDS: ASPIRIN 300 MG SUPP RECTAL SCH (08:46)
[2020-07-28] MEDS: ANIDULAFUNGIN 100 MG in SODIUM CHLORIDE 0.9% 100 ML IVPB SCH (08:46)
[2020-07-28] MEDS: PANTOPRAZOLE 40 MG/10 ML VIAL IVP SCH ×2 (08:47→20:15)
[2020-07-28] MEDS: DEXAMETHASONE SOD PHOSPHATE 4 MG/ML 1 ML VIAL IV SCH (08:47)
[2020-07-28] MEDS ORDERED: FUROSEMIDE 10 MG/ML 10 ML VIAL IV SCH (09:00)
[2020-07-28] MEDS: NOREPINEPHRINE 8 MG in SODIUM CHLORIDE 0.9% 250 ML IV SCH (09:44)
[2020-07-28] MEDS: DARBEPOETIN ALFA 40 MCG/0.4 ML SYRINGE SQ SCH (09:44)
[2020-07-28] MEDS ORDERED: DESMOPRESSIN ACETATE 28 MCG in SODIUM CHLORIDE 0.9% 50 ML IVPB ONE (09:47)
--- NOTE | 2020-07-28 09:49 | P.PN ---
Subjective Patient is seen in follow-up for acute kidney injury. Maintained on IV Lasix. Nonoliguric. Renal function a little worse today. Receiving tube feeding. Status post tracheostomy and PEG tube placement this admission. On 30% FiO2. Hemoglobin 6.5 today. No active bleeding. Vital signs are stable. General: No JVD. HEENT: Tracheostomy noted. HEART: Tachycardic. ABDOMEN: No distention. EXTREMITITES: 1+ edema. Objective - Vital Signs Vital signs: Vital Signs Temp 100.1 F H 07/28/20 04:00 Pulse 120 H 07/28/20 07:00 Resp 15 07/28/20 07:00 BP 137/85 07/28/20 07:00 Pulse Ox 98 07/28/20 07:00 Intake & Output 07/27/20 07/28/20 07/28/20 18:59 06:59 18:59 Intake Total 327.267 681 46 Output Total 975 865 100 Balance -647.733 -184 -54 Weight 107.8 kg 107.1 kg Intake: IV 145 120 10 0.9 Normal Saline 90 120 10 Mvi, Adult No.4 with Vit 55 K 10 ml Trace (Conc-1Ml/ Dose) 1 ml Parenteral Electrolytes 20 ml Potassium Chloride 20 meq In Amino Acid 5%-D15w 1, 000 ml @ 55 mls/hr IV . [id number] PRAFUL Rx#:[id number] Intake, IV Titration 32.267 Amount Clevidipine Butyrate 25 2.267 mg In Empty Bag 1 bag @ 1 MG/HR 2 mls/hr IV .Q24H PRAFUL Rx#:[id number] Sodium Chloride 0.9% 1, 30 000 ml @ 10 mls/hr IV . Q24H PRAFUL Rx#:[id number] Tube Feeding 120 381 36 Other 30 180 Output: Urine 975 865 100 Other: Voiding Method Indwelling Catheter Indwelling Catheter ABP, PAP, CO, CI - Last Documented Arterial Blood Pressure 118/64 - Labs CBC & Chem 7: 07/28/20 05:30 07/28/20 05:30 Labs: Abnormal Lab Results - Last 24 Hours (Table) 07/27/20 07/27/20 07/27/20 Range/Units 03:30 11:25 17:57 WBC (3.8-10.6) k/uL RBC (4.30-5.90) m/uL Hgb (13.0-17.5) gm/dL Hct (39.0-53.0) % RDW (11.5-15.5) % Plt Count (150-450) k/uL Chloride (98-107) mmol/L BUN (9-20) mg/dL Creatinine (0.66-1.25) mg/dL Glucose (74-99) mg/dL POC Glucose (mg/dL) 124 H 117 H (75-99) mg/dL Calcium (8.4-10.2) mg/dL Ferritin 835.4 H (22.0-322.0) ng/mL Total Bilirubin (0.2-1.3) mg/dL ALT (4-49) U/L C-Reactive Protein (<1.0) mg/dL Total Protein (6.3-8.2) g/dL Albumin (3.5-5.0) g/dL 07/28/20 07/28/20 07/28/20 Range/Units 05:30 05:30 06:05 WBC 0.2 L* (3.8-10.6) k/uL RBC 2.17 L (4.30-5.90) m/uL Hgb 6.5 L* D (13.0-17.5) gm/dL Hct 20.3 L (39.0-53.0) % RDW 16.6 H (11.5-15.5) % Plt Count 108 L (150-450) k/uL Chloride 108 H (98-107) mmol/L BUN 119 H* (9-20) mg/dL Creatinine 3.92 H (0.66-1.25) mg/dL Glucose 119 H (74-99) mg/dL POC Glucose (mg/dL) 130 H (75-99) mg/dL Calcium 8.3 L (8.4-10.2) mg/dL Ferritin (22.0-322.0) ng/mL Total Bilirubin 2.7 H (0.2-1.3) mg/dL ALT 104 H (4-49) U/L C-Reactive Protein 29.6 H (<1.0) mg/dL Total Protein 5.1 L (6.3-8.2) g/dL Albumin 2.7 L (3.5-5.0) g/dL Microbiology - Last 24 Hours (Table) 07/26/20 21:17 Urine Culture - Final Urine,Catheterized Armida albicans 07/26/20 22:06 Blood Culture - Preliminary Blood No Growth after 24 hours Assessment and Plan Plan: Assessment: 1. Acute kidney injury secondary to ATN secondary to covid-19 infection and acute blood loss anemia. Nonoliguric. Last hemodialysis July 22. Creatinine 3.92 today. Elevated BUN due to acute kidney injury, potential GI bleed and steroids. No active bleeding. 2. Hyperkalemia secondary to acute kidney injury and metabolic acidosis. Improved. 3. Metabolic acidosis secondary to acute kidney. Resolved. 4. Septic shock secondary to covid-19 pneumonia. Off vasopressors. 5. Acute hypoxic respiratory failure secondary to pneumonia. Has a tracheostomy. 6. Hyperphosphatemia secondary to acute kidney injury. Improving. Phosphorus 5.8 as of July 26. 7. Anemia. Component of kidney disease. Maintained on Aranesp. ?GIB. Surgery is following. May benefit from GI eval as well. Plan: Hold hemodialysis. Maintain IV Lasix. Transfuse 1 unit of packed red cells today. I will give him a dose of IV DDAVP. Avoid nephrotoxins. Continue to assess daily for need for renal replacement therapy.
--- NOTE | 2020-07-28 11:16 | P.PN ---
Subjective Progress Note Date: 07/28/20 Principal diagnosis: Acute hypoxic respiratory failure second to COVId 19 pneumonia The patient is seen today 07/12/2020 in follow-up in the intensive care unit. He remains intubated, sedated on the mechanical ventilator at assist control mode of a rate of 36, tidal volume 450, FiO2 40% and a PEEP of 10. Morning blood gases reveal pO2 of 69, pCO2 41, pH 7.35. He remains sedated on propofol at 60 mcg/kg/m, fentanyl at 1 mcg/kg/h, norepinephrine at 0.09 mcg/kg//min, the patient is currently on 0.9 saline at rate of 50 mL an hour. The patient has been off Nimbex since yesterday. He is continued on Argatroban at 0.5 mcg/kg/m. Being nourished with Nepro at 15 ML's per hour. He did receive hemodialysis yesterday with 1 L removed. Chest x-ray reveals mild bibasilar infiltrates. Sputum cultures positive for beta-hemolytic strep, group C. White count 18.1. Hemoglobin 10.6. Platelet count 141. D-dimer 19.69. Sodium 133. Potassium 4.7. Creatinine 4.14. LDH 1067, C-reactive protein 24. Remains on antibiotics in the form of ceftriaxone. Bronchodilators. Vitamin supplements. Dexamethasone. 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 The platelet count is stable and the platelet count is up to 136. On 07/12/2020, the patient is being seen for follow-up. The patient is a 59-year-old obese male patient with a BMI of 36.2 with known history of obstructive sleep apnea, presented with COVID 19 related pneumonia patient is currently intubated on a mechanical ventilator. The patient has been on a mechanical ventilator since 07/05/2020. 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 During the course of his treatment, the patient developed an acute kidney injury secondary to ATN secondary to "with 19 infection. Urine output was improving and the patient's urine output was in order of 20-25 mL an hour. Due to persistent hyperkalemia and worsening renal function, the patient was started on hemodialysis on 07/10/2020. The potassium level improved post-hemodialysis. The patient also had significant metabolic acidosis and the patient was given bicarb infusion. Electrolytes are being monitored. The patient got dialyzed yesterday and this was his second hemodialysis. Nephrology is on the case. He is currently on Decadron 6 mg IV every 24 hours. His chest x-ray is showing patchy by the pulmonary infiltrates in lower lobes, slightly worsening in the chest x-ray findings on today's evaluation mainly in the peripheries and ET tube is in a good location. The patient remains on a mechanical ventilator assist control mode. He is on Nepro at 60 mL an hour. 07/13/2020, I'm seeing this patient for a follow-up. This is a case of a 59-year-old male patient with Covid 19 related pneumonia and acute kidney injury currently on hemodialysis. Worn-out, the patient is sedated and this morning the patient is currently on propofol running at 6 60 mcg/kg per minute and fentanyl is running at 1 mcg/kg/h and this is the same sedation it was being provided yesterday. The patient is on no paralytics for now. The patient is on a mechanical ventilator, on this morning's evaluation, he is on assist-control at the rate of 28 with a tidal volume of 450 and FiO2 of 50% and PEEP is 10. Blood gases from today showing a pH of 7.37 with a pCO2 of 47 and pO2 of 63. Chest x-ray from today is showing diffuse bilateral pulmonary infiltrates more so in the lower lobes bilaterally. ET tube is in a good location. Comparing this chest x-ray from yesterday, there is no major interval change in the findings are essentially stable. His peak airway pressures 28. His static pressures 24. The patient is is still on Decadron 6 mg IV every 24 hours. D- dimer today's at 13.3, his LDH level is at 1021 and the CRP is at 4.6. Note that his inflammatory markers essentially compatible to yesterday. His echoes at 13.7 with a hemoglobin of 9.2. Platelet count is 112. I took the patient off Agratoban and he was also placed on Eliquis at a dose of 5 mg by mouth twice a day. Noted the patient also is an acute kidney injury. The patient underwent dialysis and the spot he has taken 3 sessions of hemodialysis. He is producing urine output in the order of 20-30 mL an hour. His last session of hemodialysis was yesterday. In terms of his electrolytes, his BUN is at 80 with a creatinine of 3.5 and a sodium of 132 with a potassium of 4.4. He is currently on enteral feeding for dizziness support and is currently on Nepro at the rate of 50 mL an hour. He is currently off Rocephin. He is afebrile. He is requiring low-dose pressors were norepinephrine 30 dose of 0.03 mcg/kg per minute. Otherwise, no other significant events. He is afebrile. Sedation holiday was not done yesterday. IV fluids are running at 0.9 at the rate of 50 mL an hour. 07/14/2020, patient is being seen for follow-up. Sedated and still on a mechanical ventilator, probable resolving. 60 mcg/kg per minute and the patient is also on fentanyl at 1 mcg/kg/h. Adequately sedated. On a mechanical ventilator essentially vent settings being at tidal volume of 450 with an FiO2 of 50% and a PEEP of 10 and a rate of 28. These are essentially the same settings as yesterday. As far as blood gases, pO2 is at 79 with a pCO2 of 45 and a pH is at 7.35. He d-dimer is at 9.42 and the rest of the inflammatory markers show an LDH of 1062 which is stable compared to yesterday and a CRP of 87, slightly elevated compared to yesterday. His CPK is down to 231. His pro calcitonin level was at 0.58 and note that the patient has dialysis-dependent renal failure. As far as his creatinine, his creatinine today is at 3.97 with a mean of 96. He did not receive dialysis yesterday. His urine output is in order of 30-40 mL an hour and the fluid balance has been +1.1 L over the past 24 hours. His chest x-ray from today is showing lower lobe pulmonary infiltrates, essentially stable compared to yesterday. ET tube remains in excellent location. IV fluids are running at 20 cc an hour of normal saline. He is afebrile. He is tolerating his enteral feeding for nutritional support. Norepinephrine infusion which is running at 0.05 mcg/kg per minute. He remains on Decadron 6 mg IV every 24 , platelet count is stable at 121 and 11 avoiding heparin. Patient holiday yesterday was ultimately aborted as the patient became quite agitated after several hours without any meaningful neurological response. 07/15/2020, the patient is being seen for a follow-up. Sedated with propofol running at 60 mcg/kg per minute and fentanyl is at 1 mcg/kg/h and the level of sedation essentially the same as yesterday. Remains on a mechanical ventilator. He is an assist-control mode at the rate of 24 with a tidal volume of 450 and a PEEP of 8 with a FiO2 of 50%. He had a blood gas showing pH of 7.33 with a pCO2 of 46 and pO2 of 73. Chest x-ray is unchanged, probably slightly worse on the left in terms of that the patient is seeing on today's chest x-ray. ET tube remains in a good location. Inflammatory markers from today show a d-dimer of 9 with a LDH level of 1061 and a CRP of 78, comparable to yesterday. His pro calcitonin level was low. He got dialyzed yesterday. I attempted to wean down the PEEP to 6 and this was not successful and the patient desaturated in the P EEP was brought back up to 8 yesterday. Meanwhile, he is afebrile. He is producing urine output in the order of 20-30 mL an hour. He is on normal saline at the rate of 20 mL an hour. He remains on Decadron 6 mg IV to 24 hours. His platelet count is 132 which is essentially stable and improved compared to yesterday. In terms of pressors, the patient is currently on norepinephrine infusion at 0.04 mcg/kg per minute. I will today's condition essentially unchanged and his condition essentially the same as compared to yesterday 07/16/2020, remains on a mechanical ventilator on propofol at the rate of 60 mcg/kg per minute and fentanyl is at 2 mcg/kg/h. He remains off paralytics. At around 6:00 this morning, the patient had some oxygen desaturation. Based on that, I increased his FiO2 up to 60%. Currently is an assist-control mode rate of 28 with a tidal volume of 450 and a PEEP of 8 chest x-ray still showing diffuse bilateral pulmonary infiltrates left more than right. The blood gas shows a pH of 7.31 with a pCO2 of 45 and pO2 of 68. This was on FiO2 of 70%. Inflammatory markers show a d-dimer of 9.9 with a LDH level of 1103 and a CRP level of 62. The patient is on Decadron 6 mg IV every 24 hours. The patient is also on anticoagulation with Eliquis 2.5 mg by mouth twice a day. His platelet counts is 135. The chest x-ray findings are obviously worse and there is some worsening in the evaluation in the right lung compared to yesterday. Note that the patient did not get dialyzed yesterday. Today is a dialysis day for him. He is also on norepinephrine infusion running at 0.08 mcg/kg per minute. There is enough to maintain his blood pressure. He is receiving enteral feeding for discharge support and currently is on Nepro at a rate of 50 mL an hour which is currently at goal. No other significant events. Is adequately sedated for now. 07/17/2020, the patient is being seen for a follow-up. This morning he is on a combination of propofol and fentanyl running at 60 mics for propofol and 1 g for fentanyl. He was given a sedation holiday and she was able to tolerate initiated subsequently he decompensated and became hypoxic and he had to be placed back on sedation. Noted the patient became asynchronous. This morning, he is back on a mechanical ventilator mode at the rate of 28 with a tidal volume of 450 and her FiO2 is at 60% with a PEEP of 8. He underwent dialysis yesterday with a total of 2 liters of ultrafiltration. Note that he was able to tolerated dialysis without any major issues. He is on a minimal dose of norepinephrine infusion running at 0.06 mcg/kg per minute for blood pressure control. On today's evaluation, peak air pressures around 27. The blood gases from today shows a pH of 7.29 with a pCO2 of 40 and pO2 of 99 and this was on FiO2 of 60%. As mentioned, his PEEP is at 8. Chest x-ray still showing diffuse breath and pulmonary infiltrates unchanged without any major interval improvement or worsening. White cell count is at 50 with a hemoglobin of 8.2. Creatinine is at 3.4 and a urine output is in order of 30 mL an hour. No plans for hemodialysis today. He is receiving enteral feeding for nutritional support with Nepro at the rate of 50 mL an hour. He is stooling. Still sedation dependent. Unable to wean him off sedation because of a 6 and mean oxygen desaturations. I have approach the and the family with a possibility of ainsertion of a tracheostomy tube and a PEG tube for prolonged need of mechanical ventilation and failure for weaning. The patient has been intubated since 07/05/2020. The inflammatory markers from today shows an LDH level of 889, CRP is at 6 and the d-dimer is at 6.05. The patient has palpable pulses in his left upper extremity. She of his fingers are necrotic and the tip including the index, the platelet counts are stable and the patient is currently on Eliq uis 2.5 mg by mouth twice a day. Or 2020, the patient remains sedated with a combination of propofol and fentanyl running at 50 mcg/kg per minute for propofol and 1 mcg/kg per hour for fentanyl. He is sedated. In fact is deeply sedated. We are going to proceed with a sedation holiday on this patient today. He remains on a mechanical ventilator. He remains on a assist-control rate of 28, tidal volume of 450, FiO2 of 50% with a PEEP of 8. Attempts to wean the PEEP further failed and the patient became more hypoxic. As such, the patient is living At 8. This patient is a 7.26 with a pCO2 of 48 and pO2 of 71 today's blood gas. His chest x-ray showing stable bilateral pulmonary infiltrates essentially involving the lower lobes. ET tube is in a good location. Note that the patient is producing urine output in the order of 8200 mL an hour. His net fluid balance over the past 24 hours has been -83 mL. He has had a with a positive fluid balance for today. The findings on the case. The intent of the dialysis 3 times a week. His last dialysis was done on Sunday which is 2 days ago. His creatinine is up to 3.7 with a BUN of 84. Rest of the electrolytes are normal. Affect is running a lower sodium level of 1:30 with a potassium level of 4.1. Serum bicarbs at 20. In terms of his COVID-19 related pneumonia, the patient has a LDH level of 855, CRP level of 5.2 and his most recent d-dimer is at 5.4. He remains on steroids and he is on Decadron 6 mg IV every 24 hours. He did have a component of hit syndrome. This was related to heparin. He did receive Agratroban was ultimately discontinued once the patient's stated count picked up and it's platelet count is currently at 129. He does have necrotic fingers in his left upper extremity. Adequate pulses in the radial. No new vascular insults noted on today's examination. He is receiving enteral feeding for nutritional support and is currently on Nepro at the rate of 10 mL an hour. He is stooling. He is on Rocephin for strep in history of the blood cultures on 2 separate occasions. Otherwise, the blood cultures positive for coagulase-negative staph. Patient was reevaluated today on 07/19/2020, remains intubated and mechanically ventilated, he is off sedation and he is not showing any signs of neurological not responding to any stimuli. Patient is on assist control rate of 24th of volume 450 FiO2 50% and PEEP of 6. ABG showed a pO2 of 81 pCO2 41 pH of 7.31 patient is on enteral feeding. And he may undergo dialysis. We plan to have a tracheostomy and PEG tube placement in this patient, and he is basically a failure to wean. Today the sedation is placed on hold. Chest x-ray continues to show bilateral pulmonary infiltrates involving lower lobes. Endotracheal tube is in the proper position. Patient is making good urine, however his renal functioning seems to be getting worse. Electrolytes are normal. BUN is 91 creatinine 4.51 LDH is 893 liver enzymes are borderline elevated, C-reactive protein is 4.2 d-dimer 6.68. WBC count is 9.1 hemoglobin is 8.9 On 07/20/2020 patient seen in follow-up in intensive care unit, he was given daily traction of sedation yesterday, and his sedation was on hold for several hours and the patient never woke up over open his eyes or follow any commands, and as the day went on he started breathing fast, started desaturated and get agitated and was he was placed back on sedation on which she remains today, currently on Diprivan at 40 mics per kilo per minute, and fentanyl infusion at 1 mics per kilo per minute, and levo fed has been discontinued, he is on assist- control mode of ventilation with assist control rate of 24, tidal volumes of 4 50, FiO2 of 50% and PEEP of 6, this morning's blood gas shows pO2 of 92, pCO2 42, and pH is 7.32. He is in sinus mechanism, slightly tachycardic, his tube feedings are currently on hold in case of possibility of tracheostomy and PEG tube insertion however were still awaiting a response from his family on the decision in regards to proceeding with trach and PEG placement, today he is receiving hemodialysis treatment, and a 3 L in fluid was removed today. In terms of urine output he has been making urine in the order of 50-70 ML per hour, he remains on Lasix 80 mg twice daily, he remains on Rocephin for evidence of a beta-hemolytic strep in the sputum cultures, his follow-up sputum culture only showed Armida. History of resting comfortably in bed, he remains on IV dexamethasone 6 mg daily, has been off the levofed. Breasts labs have been reviewed, his white blood cell count is 8.1, hemoglobin is 8.1, his platelet count is 126, d-dimer is 13.3, sodium is 133, potassium 3.7, his renal function is relatively stable, with BUN of 82, and creatinine 4.51. These LDH is 792, CRP is 48. His had no acute events overnight, we spoke to his daughter yesterday in regards to patient's condition, and to discuss tracheostomy and PEG tube insertion, awaiting response from the family on their decision and the daughter indicated that patient had poor quality of life to start with and the were not sure if the workup and consent to the trach and PEG On 07/21/2000 patient seen in follow-up in the intensive care unit, yesterday he tolerated 11 hours of sedation holiday, and he was starting to follow simple commands, however is that day went on he was becoming more agitated and tachypneic, and he was placed back on sedation, currently on Diprivan at 40 mics per kilo per minute, and 0.9 at KVO, he remains intubated, on assist control mode of ventilation, with a rate of 24, Tylox 450, FiO2 of 50% and PEEP of 6, this morning's blood gases show pO2 133, pCO2 of 41, and pH is 7.38. Patient is resting comfortably, appears to be in no acute distress, he is not on any vasoactive drugs, no vasopressors, she is in sinus rhythm sinus tach with a rate of 90-106 BPM, hemodialysis treatment this morning, and attended have liters of fluid was taken off, his vital signs have been stable overnight, no fever or chills, lung sounds are diminished. She also remains on IV Lasix 80 mg twice da waylon, patient is producing urine in the order of 30-60 ML per hour, and she is in -4.1 L over the last 24 hours with additional -2.49 fluid balance since midnight last night. Chest x-ray shows interval improvement in bilateral airspace infiltrates particularly within the right upper lobe. Today's labs have been reviewed, showing white blood cell count 7.1, hemoglobin of 7.4, platelet count is 120, sodium is 130, potassium is 3.2, chloride is 104, CO2 of 23, BUN of 75 and creatinine of 4.01. Patient remains on Rocephin for beta-hemolytic strep in the sputum, repeat culture of the sputum showed only Armida. He is tolerating tube feedings which are on hold for tracheostomy and PEG tube placement which is scheduled for today. On 07/22/2020 patient seen in follow-up in intensive care unit, he remains sedated and trach to the ventilator, on assist-control mode of ventilation with a rate of 24, her lungs were 50, FiO2 50% and PEEP of 6, his blood gas shows pO2 of 169, pCO2 40, pH of 7.36, patient is currently on Diprivan at 55 mics per kilo per minute, he is on 0.9 normal saline at 10 ML per hour, Levophed that he is at 0.02 mics per kilo per minute. Patient is having hemodialysis treatment right now. Patient received tracheostomy and PEG tube yesterday. His hemodialysis access was switched to right subclavian approach. He still has a central line in his groin which will need to be switched to a PICC line. Today's chest x-ray showed bilateral multifocal and confluent opacities consistent with COVID-19 infection with no significant interval change. Vital signs have been stable, his sat 98% on the above mentioned settings, requiring small dose of Levafed. 2 feedings will be started sometime today, he is on Rocephin for evidence of 5 beta-hemolytic strep in the sputum, follow-up sputum culture only showed Armida albicans. She had no acute events overnight. He re leonila on Decadron 6 mg daily, he is Eliquis will be started tonight if it's okay with surgery. No other acute events overnight, and -2.4 L fluid balance over the last 24 hours. He does remains generally swollen. On 07/23/2020 patient seen in follow-up, in the intensive care unit, patient received tracheostomy and PEG tube insertion on 07/21/2020, he remains trached to the ventilator and is currently on assist control mode of ventilation with a rate of 24, tacrolimus 450, FiO2 45% and PEEP of 5, this morning's blood gas shows pO2 of 149, pCO2 of 43, and pH of 7.39, he was given a sedation holiday yesterday, however he did not wake up or start following commands, neurology completed a brain CT which showed decreased attenuation within the high right frontal lobe without cortical increased attenuation which could reflect petechial hemorrhage, patient is currently not on any anticoagulation, is Eliquis has been on hold since 07/19/2020 at 11:00 in the morning. His hemoglobin today 7.4, his platelet count is 115, his d-dimer is currently is 8.18 on this morning's labs. Patient is not on any aspirin, or Plavix or any other anticoagulants. Patient was resedated he is currently on 35 mics per kilo per minute of Diprivan, and 0.9 and is infusing at KVO, no other infusions. Hemodynamically he has remained stable, he is in sinus rhythm sinus tachycardia on the monitor, this morning his PEG tube became plugged when the crushed oral medications were being instilled through the PEG tube, surgery was notified, and the PEG tube was removed, NG tube will be inserted, however no tube feedings or oral medications are to be put down the NG tube at this point. Patient remains on Rocephin for evidence of beta-hemolytic strep in the sputum, yesterday his central line was discontinued and the tip was sent for culture and the culture is pending at this time, however overnight has been no fever, his vital signs have remained stable. He had hemodialysis on 07/21/2020 with removal of 2.5 L in fluids. Today's labs show sodium of 136, potassium 3.5, chloride is 104, CO2 is 22, BUN 54, and creatinine is 2.6, his renal profile is improving, and patient remains on IV Lasix 80 mg twice daily, he is producing urine in the order of 35-60 ML per hour. No other acute events overnight, neurology is following, and is to comment on the findings of the CT of the brain. Today's chest x-ray shows continued diffuse bilateral groundglass airspace disease/pulmonary edema, with continue small effusions with adjacent atelectasis. LDH is down to 640, and CRP is 5.6 On 07/24/2020 patient seen in follow-up in the intensive care unit, he remains trached to the ventilator on assist control mode of ventilation with a rate of 24, tidal is 450, FiO2 of 45% and PEEP of 5, this morning's blood gas shows pO2 of 150; pCO2 40, pH of 7.4, and FiO2 was dropped down to 40% based on the above mentioned blood gases, IV fluids are 0.9 normal saline at a rate of 10 ML per hour, and TPN is infusing at 30 ML per hour, not on any vasopressor support, and patient has been off sedation since yesterday morning, were told by the nursing staff that at times he was noted to be attempting to wiggle toes on command. Remains quite lethargic right now, she is not opening eyes to voice, he is not following commands, he is very weak. Chest x-ray today shows diffuse bilateral infiltrates. Tracheostomy hemodialysis catheter appear to be in appropriate positions, NG tube has been inserted yesterday, and peg tube was discontinued, and surgeries plan on replacing the PEG tube on Sunday. Neurology is following, patient has no signs of obvious seizure activity, he does have cough and a gag reflex. But remains very obtunded, today's labs have been reviewed, showing white blood cell count of 4.1, hemoglobin of 7.4, electrolytes were within normal limits, BUN is 68, and creatinine is 3.54. Patient remains on IV Lasix 80 mg twice daily, is in -856 over the last 24 hours, he is tolerating tube feedings, no diarrhea noted. Yesterday his d-dimer came back at 8.18. Patient remains off Eliquis, and he received 300 mg of rectal aspirin per neurology. His most recent brain CT showed previously noted area of subarachnoid hemorrhage associated with abnormal hypodensity posterior laterally in the right frontal lobe was again noted, not significantly changed. Neurology thinks patient has suffered acute ischemic stroke with a small right frontal region with mild petechial hemorrhage in the cortical ribbon On 07/26/2020 patient seen in follow-up in the intensive care unit, he remains trached to the ventilator, assist control mode of ventilation with a rate of 20 with tidal volumes were 450, FiO2 of 40% and PEEP of 5, displays blood gas shows pO2 of 122, pCO2 of 43, and pH of 7.42. He is 1.9 normal seen at 10 mL an hour, TPN is a 55 ML per hour, Cleviprex is a 7 mg per hour. He has been off Diprivan and for several days now, he just has a morphine sulfate for discomfort on as needed basis, he is waking up to touch and sometimes he follows simple commands, but he is extremely weak and unable to squeeze with his hands on command. His tube feedings have been on hold and he is supposed to have a PEG tube reinserted today, NG tube is in place to low intermittent suction a total of 450 ML of gastric drainage in the last 24 hours, urine output has been in the order of 100-200 ML per hour. He remains on IV Lasix at 80 mg every 12 hours, he is maintaining negative fluid balance of 1.5 L over the last 24 hours. Has been afebrile. Today's chest x-ray shows persistent but improving infiltrates throughout both lung palafox. Today's labs show white blood cell count of 1.1, hemoglobin of 8.4, d-dimer is 11.69, patient has remained off anticoagulation for the PEG tube reinsertion today, sodium is 142, potassium is 4.2, chloride is 102, BUN is 90, creatinine is 3.54, AST is 72, ALT is 82. He is on IV Rocephin for evidence of beta-hemolytic strep in the sputum, and central line catheter tip was positive for Armida albicans. Patient has had no fever or chills. Partially patient has suffered an acute stroke with small subarachnoid hemorrhage, cardiology has been consulted for possibility if AGNIESZKA, which cardiology felt was not needed at this time. No other acute events overnight, no fever or chills, patient has not been able to receive his oral medications for high blood pressure, and has required Cleviprex. On 07/27/2020 patient seen in follow-up in intensive care unit, patient is trached to the ventilator with assist control mode of ventilation with a rate of 24, tidal volume was 450, FiO2 30% and PEEP of 5, no blood gases were done today, overnight he developed a fever with a temp of 101.9F, and today's blood work is down trending white count, neutropenia white blood cell count is 0.6, hemoglobin is 8.2, platelet count is 148, and there is a suspicion of p ossibility of fungal infection, and patient was started on Eraxis yesterday. New blood cultures and urine cultures have been sent, BMP shows a sodium of 140, potassium is 5.2, BUN of 103, and creatinine of 3.66, his inflammatory markers have been reviewed, and LDH is now within normal limits at 559, and CRP is 14.9. His central line catheter tip was positive for Armida albicans, his sputum back on 07/08/2020 was positive for beta-hemolytic strep. Urine culture is currently pending, ID service is following. Patient had a new PEG tube placed on 07/26/2020 he continues on TPN for nutritional support, anticipate restarting his tube feedings this afternoon if cleared by surgery. On 07/20/2020 patient seen in follow-up in the intensive care unit. Remains trached to the ventilator, on assist control mode of ventilation with a rate of 24, tacrolimus 450, FiO2 30%, and PEEP of 5, no new blood gases today. Today's chest x-ray showing stable portable chest, and no change in bibasilar opacities. Patient has remained off sedation, and he started to follow some simple commands, however his severe generally weak, he is unable to squeeze with his hands, he opens eyes to voice, withdraws from painful stimuli. today's labs reviewed showing white blood cell, 0.2, hemoglobin is 6.5, platelet count is 108, patient is pancytopenic, 1 unit of blood will be transfused today, sodium is 144, potassium is 4.4, chloride is 108, BUN of 119, creatinine is 3.9. No obvious source of bleeding at this time. Cultures have been sent, patient is currently on Eraxis for Armida albicans on the central line catheter tip, sputum. Patient remains on Rocephin for streptococcal pneumonia. He was febr ile in the last 24 hours with a T-max of 101.3F. He continues on IV Lasix, he is making urine in order of 100-120 ML per hour. Is on Nepro for nutritional support at 36 with a goal of 36 Objective - Vital Signs Vital signs: Vital Signs Temp 100.1 F H 07/28/20 04:00 Pulse 120 H 07/28/20 07:00 Resp 15 07/28/20 07:00 BP 137/85 07/28/20 07:00 Pulse Ox 98 07/28/20 07:00 Intake & Output 07/27/20 07/28/20 07/28/20 18:59 06:59 18:59 Intake Total 327.267 681 46 Output Total 975 865 100 Balance -647.733 -184 -54 Weight 107.8 kg 107.1 kg Intake: IV 145 120 10 0.9 Normal Saline 90 120 10 Mvi, Adult No.4 with Vit 55 K 10 ml Trace (Conc-1Ml/ Dose) 1 ml Parenteral Electrolytes 20 ml Potassium Chloride 20 meq In Amino Acid 5%-D15w 1, 000 ml @ 55 mls/hr IV . [id number] PRAFUL Rx#:[id number] Intake, IV Titration 32.267 Amount Clevidipine Butyrate 25 2.267 mg In Empty Bag 1 bag @ 1 MG/HR 2 mls/hr IV .Q24H PRAFUL Rx#:[id number] Sodium Chloride 0.9% 1, 30 000 ml @ 10 mls/hr IV . Q24H PRAFUL Rx#:[id number] Tube Feeding 120 381 36 Other 30 180 Output: Urine 975 865 100 Other: Voiding Method Indwelling Catheter Indwelling Catheter ABP, PAP, CO, CI - Last Documented Arterial Blood Pressure 118/64 - Exam GENERAL EXAM: Sedated, morbidly obese 51-year-old white male, trached to the ventilator, on assist-control mode of ventilation with a 40% PEEP of 5, comfortable in no apparent distress. HEAD: Normocephalic/atraumatic. EYES: Normal reaction of pupils, equal size. Conjunctiva pink, sclera white. NOSE: Clear with pink turbinates. THROAT: No erythema or exudates. NECK: No masses, no JVD, no thyroid enlargement, no adenopathy. Midline tracheostomy connected to the ventilator CHEST: No chest wall deformity. Symmetrical expansion. Right subclavian permacath in place and patient is receiving hemodialysis LUNGS: Equal air entry with no crackles, wheeze, rhonchi or dullness. CVS: Regular rate and rhythm, normal S1 and S2, no gallops, no murmurs, no rubs ABDOMEN: Soft, nontender. No hepatosplenomegaly, normal bowel sounds, no guarding or rigidity. PEG tube in place EXTREMITIES: No clubbing, generalized edema no cyanosis, 2+ pulses and upper and lower extremities. Patient has black fingertips on his left hand MUSCULOSKELETAL: Muscle strength and tone normal. Right groin temporary hemodialysis catheter in place SPINE: No scoliosis or deformity SKIN: No rashes CENTRAL NERVOUS SYSTEM: Sedated, intubated. No focal deficits, tone is normal in all 4 extremities. - Labs CBC & Chem 7: 07/28/20 05:30 07/28/20 05:30 Labs: Abnormal Lab Results - Last 24 Hours (Table) 07/27/20 07/27/20 07/27/20 Range/Units 03:30 11:25 17:57 WBC (3.8-10.6) k/uL RBC (4.30-5.90) m/uL Hgb (13.0-17.5) gm/dL Hct (39.0-53.0) % RDW (11.5-15.5) % Plt Count (150-450) k/uL Chloride (98-107) mmol/L BUN (9-20) mg/dL Creatinine (0.66-1.25) mg/dL Glucose (74-99) mg/dL POC Glucose (mg/dL) 124 H 117 H (75-99) mg/dL Calcium (8.4-10.2) mg/dL Ferritin 835.4 H (22.0-322.0) ng/mL Total Bilirubin (0.2-1.3) mg/dL ALT (4-49) U/L C-Reactive Protein (<1.0) mg/dL Total Protein (6.3-8.2) g/dL Albumin (3.5-5.0) g/dL 07/28/20 07/28/20 07/28/20 Range/Units 05:30 05:30 06:05 WBC 0.2 L* (3.8-10.6) k/uL RBC 2.17 L (4.30-5.90) m/uL Hgb 6.5 L* D (13.0-17.5) gm/dL Hct 20.3 L (39.0-53.0) % RDW 16.6 H (11.5-15.5) % Plt Count 108 L (150-450) k/uL Chloride 108 H (98-107) mmol/L BUN 119 H* (9-20) mg/dL Creatinine 3.92 H (0.66-1.25) mg/dL Glucose 119 H (74-99) mg/dL POC Glucose (mg/dL) 130 H (75-99) mg/dL Calcium 8.3 L (8.4-10.2) mg/dL Ferritin (22.0-322.0) ng/mL Total Bilirubin 2.7 H (0.2-1.3) mg/dL ALT 104 H (4-49) U/L C-Reactive Protein 29.6 H (<1.0) mg/dL Total Protein 5.1 L (6.3-8.2) g/dL Albumin 2.7 L (3.5-5.0) g/dL Microbiology - Last 24 Hours (Table) 07/26/20 21:17 Urine Culture - Final Urine,Catheterized Armida albicans 07/26/20 22:06 Blood Culture - Preliminary Blood No Growth after 24 hours Assessment and Plan Plan: Assessment: #1. Acute hypoxic respiratory failure secondary to COVID-19 pneumonia. Patient received toci and convalescent plasma., Patient is status post tracheostomy and PEG tube placement on 07/21/2020. #2. Neutropenia, rule out possibility of fungal infection, cover the patient with Eraxis #3. Acute hemorrhagic stroke, in right frontal region with mild petechial he morrhage in the cortical ribbon #4. Acute kidney injury requiring dialysis, improving #5. Altered mental status, related to toxic metabolic encephalopathy, severe, related to multiple organ dysfunction #6. Possible petechial hemorrhage within the right frontal lobe, seen on the CT of the brain, neurology is following #7. Severe metabolic acidosis, improved and resolved after dialysis. #8. Hyperkalemia secondary to above, improved with hemodialysis #9. Benign essential hypertension. #10. Superficial vein thromboses and left cephalic vein and left basilic vein #11. Heparin-induced thrombocytopenia, patient was on Argatroban and Eliquis which are on hold right now #12. History of obstructive sleep apnea syndrome #13. Morbid obesity #14. Increased d-dimer related to COVID-19, patient was started on Eliquis which will be restarted after his surgical procedures #15. Plugged PEG tube, the PEG tube was discontinued today at the bedside on 07/23/2020, new PEG tube was inserted on 07/26/2020 #16. Pancytopenia, likely related to sepsis, we'll consult hematology Plan: Continue holding off sedation Place the patient on pressure-support of 5 and CPAP of 5 Continue current antibiotics Awaiting results of the repeat cultures 1 unit of blood will be transfused Continue nutritional support We'll start Lovenox at prophylactic dose 30 mg daily Consultation to infectious disease re: sepsis Consultation to hematology re: pancytopenia I performed a history & physical examination of the patient and discussed their management with my nurse practitioner, Nelia Conley. I reviewed the nurse practitioner's note and agree with the documented findings and plan of care. Lung sounds are positive for diminished breath sounds The findings and the impression was discussed with the patient. I attest to the documentation by the nurse practitioner. Time with Patient: Greater than 30
--- NOTE | 2020-07-28 11:28 | P.PN ---
Subjective Progress Note Date: 07/28/20 CHIEF COMPLAINT: Shortness of breath HISTORY OF PRESENT ILLNESS: Patient currently in the ICU and on mechanical ventilation. He has been on the vent since 07/05/2020. He has acute hypoxic respiratory failure due to COVID-19 pneumonia. Patient is status post tracheostomy and PEG tube placement on 07/21/20. However, patient's PEG tube did get plugged. He is now status post PEG tube replacement on 07/26/2020. He is tolerating tube feedings. He is on Nepro at 36 mL per hour which is at goal. He had a hemoglobin of 6.5 and is receiving a unit of blood. No active bleeding reported. Patient had fever of 101.9 yesterday morning. Temp this morning is 100.1 he has been tachycardic. WBC 0.2 hemoglobin 6.5 platelets 18. Hematology consulted regarding pancytopenia. Patient seen and examined with Dr. Mcdowell PHYSICAL EXAM: VITAL SIGNS: Reviewed. GENERAL: Well-developed in no acute distress. HEENT: No sclera icterus. Extraocular movements grossly intact. Moist buccal mucosa. Head is atraumatic, normocephalic. Tracheostomy site clean dry and intact ABDOMEN: Soft. Nondistended. Nontender. PEG tube site clean dry and intact NEUROLOGIC: Intubated ASSESSMENT: 1. Acute hypoxic respiratory failure secondary to acute COVID-19 pneumonia with prolonged mechanical ventilation. Status post tracheostomy placement 2. Severe Protein calorie malnutrition status post PEG tube placement PLAN: -Continue PEG tube feedings -Continue ICU management -Continue supportive care Physician Director Of Online Education note has been reviewed by physician. Signing provider agrees with the documented findings, assessment, and plan of care. Objective - Vital Signs Vital signs: Vital Signs Temp 100.1 F H 07/28/20 04:00 Pulse 120 H 07/28/20 07:00 Resp 15 07/28/20 07:00 BP 137/85 07/28/20 07:00 Pulse Ox 98 07/28/20 07:00 Intake & Output 07/27/20 07/28/20 07/28/20 18:59 06:59 18:59 Intake Total 327.267 681 46 Output Total 975 865 100 Balance -647.733 -184 -54 Weight 107.8 kg 107.1 kg Intake: IV 145 120 10 0.9 Normal Saline 90 120 10 Mvi, Adult No.4 with Vit 55 K 10 ml Trace (Conc-1Ml/ Dose) 1 ml Parenteral Electrolytes 20 ml Potassium Chloride 20 meq In Amino Acid 5%-D15w 1, 000 ml @ 55 mls/hr IV . [id number] [facility]UL Rx#:[id number] Intake, IV Titration 32.267 Amount Clevidipine Butyrate 25 2.267 mg In Empty Bag 1 bag @ 1 MG/HR 2 mls/hr IV .Q24H PRAFUL Rx#:[id number] Sodium Chloride 0.9% 1, 30 000 ml @ 10 mls/hr IV . Q24H PRAFUL Rx#:[id number] Tube Feeding 120 381 36 Other 30 180 Output: Urine 975 865 100 Other: Voiding Method Indwelling Catheter Indwelling Catheter ABP, PAP, CO, CI - Last Documented Arterial Blood Pressure 118/64 - Labs CBC & Chem 7: 07/28/20 05:30 07/28/20 05:30 Labs: Abnormal Lab Results - Last 24 Hours (Table) 07/27/20 07/27/20 07/27/20 Range/Units 03:30 11:25 17:57 WBC (3.8-10.6) k/uL RBC (4.30-5.90) m/uL Hgb (13.0-17.5) gm/dL Hct (39.0-53.0) % RDW (11.5-15.5) % Plt Count (150-450) k/uL Chloride (98-107) mmol/L BUN (9-20) mg/dL Creatinine (0.66-1.25) mg/dL Glucose (74-99) mg/dL POC Glucose (mg/dL) 124 H 117 H (75-99) mg/dL Calcium (8.4-10.2) mg/dL Ferritin 835.4 H (22.0-322.0) ng/mL Total Bilirubin (0.2-1.3) mg/dL ALT (4-49) U/L C-Reactive Protein (<1.0) mg/dL Total Protein (6.3-8.2) g/dL Albumin (3.5-5.0) g/dL Crossmatch 07/28/20 07/28/20 07/28/20 Range/Units 05:30 05:30 06:05 WBC 0.2 L* (3.8-10.6) k/uL RBC 2.17 L (4.30-5.90) m/uL Hgb 6.5 L* D (13.0-17.5) gm/dL Hct 20.3 L (39.0-53.0) % RDW 16.6 H (11.5-15.5) % Plt Count 108 L (150-450) k/uL Chloride 108 H (98-107) mmol/L BUN 119 H* (9-20) mg/dL Creatinine 3.92 H (0.66-1.25) mg/dL Glucose 119 H (74-99) mg/dL POC Glucose (mg/dL) 130 H (75-99) mg/dL Calcium 8.3 L (8.4-10.2) mg/dL Ferritin (22.0-322.0) ng/mL Total Bilirubin 2.7 H (0.2-1.3) mg/dL ALT 104 H (4-49) U/L C-Reactive Protein 29.6 H (<1.0) mg/dL Total Protein 5.1 L (6.3-8.2) g/dL Albumin 2.7 L (3.5-5.0) g/dL Crossmatch 07/28/20 Range/Units 10:32 WBC (3.8-10.6) k/uL RBC (4.30-5.90) m/uL Hgb (13.0-17.5) gm/dL Hct (39.0-53.0) % RDW (11.5-15.5) % Plt Count (150-450) k/uL Chloride (98-107) mmol/L BUN (9-20) mg/dL Creatinine (0.66-1.25) mg/dL Glucose (74-99) mg/dL POC Glucose (mg/dL) (75-99) mg/dL Calcium (8.4-10.2) mg/dL Ferritin (22.0-322.0) ng/mL Total Bilirubin (0.2-1.3) mg/dL ALT (4-49) U/L C-Reactive Protein (<1.0) mg/dL Total Protein (6.3-8.2) g/dL Albumin (3.5-5.0) g/dL Crossmatch See Detail Microbiology - Last 24 Hours (Table) 07/26/20 21:17 Urine Culture - Final Urine,Catheterized Armida albicans 07/26/20 22:06 Blood Culture - Preliminary Blood No Growth after 24 hours
[2020-07-28 11:50] LABS: Glucose,Whole Blood 132 mg/dL (75-99)
[2020-07-28] MEDS: HYDROmorphone 0.5 MG/0.5 ML SYRINGE IVP PRN (11:59)
[2020-07-28 12:32] LABS: Ferritin 967.1 ng/mL (22.0-322.0)
--- NOTE | 2020-07-28 12:35 | P.PN ---
Subjective Progress Note Date: 07/28/20 The patient was seen at bedside and per the patient's nurse he was squeezing her finger and seems to squeeze appropriately to command. The patient just received Dilaudid and was drowsy. Objective - Vital Signs Vital signs: Vital Signs Temp 100.1 F H 07/28/20 04:00 Pulse 120 H 07/28/20 07:00 Resp 15 07/28/20 07:00 BP 137/85 07/28/20 07:00 Pulse Ox 98 07/28/20 07:00 Intake & Output 07/27/20 07/28/20 07/28/20 18:59 06:59 18:59 Intake Total 327.267 681 46 Output Total 975 865 100 Balance -647.733 -184 -54 Weight 107.8 kg 107.1 kg Intake: IV 145 120 10 0.9 Normal Saline 90 120 10 Mvi, Adult No.4 with Vit 55 K 10 ml Trace (Conc-1Ml/ Dose) 1 ml Parenteral Electrolytes 20 ml Potassium Chloride 20 meq In Amino Acid 5%-D15w 1, 000 ml @ 55 mls/hr IV . [id number] [facility] Rx#:[id number] Intake, IV Titration 32.267 Amount Clevidipine Butyrate 25 2.267 mg In Empty Bag 1 bag @ 1 MG/HR 2 mls/hr IV .Q24H [facility]UL Rx#:[id number] Sodium Chloride 0.9% 1, 30 000 ml @ 10 mls/hr IV . Q24H [facility]UL Rx#:[id number] Tube Feeding 120 381 36 Other 30 180 Output: Urine 975 865 100 Other: Voiding Method Indwelling Catheter Indwelling Catheter ABP, PAP, CO, CI - Last Documented Arterial Blood Pressure 118/64 - Exam GENERAL: The patient is lying in bed and is not in acute distress. RESPIRATORY: Trach and on ventilator. Is breathing over the vent. NEUROLOGICAL: Limited because he received Dilaudid and his condition. Higher mental function: The patient is drowsy but briefly awkeable to voice. No verbally responsive and not following commands. Cranial nerves: The pupils are round, equal and reactive to light. Primary gaze is midline. With threat patient blinks eyes bilaterally. No facial weakness bilaterally. Otherwise could not assess rest of cranial nerves because of his condition. Motor: The strength is 0/5 throughout and to painful stimuli grimaces face to pain. Decrease tone in Bilateral upper > lower extremities. Cerebellum: Could not assess. Sensation: Could not assess light touch and to painful stimuli grimaces face. - Labs CBC & Chem 7: 07/28/20 05:30 07/28/20 05:30 Labs: Abnormal Lab Results - Last 24 Hours (Table) 07/27/20 07/27/20 07/27/20 Range/Units 03:30 11:25 17:57 WBC (3.8-10.6) k/uL RBC (4.30-5.90) m/uL Hgb (13.0-17.5) gm/dL Hct (39.0-53.0) % RDW (11.5-15.5) % Plt Count (150-450) k/uL Chloride (98-107) mmol/L BUN (9-20) mg/dL Creatinine (0.66-1.25) mg/dL Glucose (74-99) mg/dL POC Glucose (mg/dL) 124 H 117 H (75-99) mg/dL Calcium (8.4-10.2) mg/dL Ferritin 835.4 H (22.0-322.0) ng/mL Total Bilirubin (0.2-1.3) mg/dL ALT (4-49) U/L C-Reactive Protein (<1.0) mg/dL Total Protein (6.3-8.2) g/dL Albumin (3.5-5.0) g/dL 07/28/20 07/28/20 07/28/20 Range/Units 05:30 05:30 06:05 WBC 0.2 L* (3.8-10.6) k/uL RBC 2.17 L (4.30-5.90) m/uL Hgb 6.5 L* D (13.0-17.5) gm/dL Hct 20.3 L (39.0-53.0) % RDW 16.6 H (11.5-15.5) % Plt Count 108 L (150-450) k/uL Chloride 108 H (98-107) mmol/L BUN 119 H* (9-20) mg/dL Creatinine 3.92 H (0.66-1.25) mg/dL Glucose 119 H (74-99) mg/dL POC Glucose (mg/dL) 130 H (75-99) mg/dL Calcium 8.3 L (8.4-10.2) mg/dL Ferritin (22.0-322.0) ng/mL Total Bilirubin 2.7 H (0.2-1.3) mg/dL ALT 104 H (4-49) U/L C-Reactive Protein 29.6 H (<1.0) mg/dL Total Protein 5.1 L (6.3-8.2) g/dL Albumin 2.7 L (3.5-5.0) g/dL Microbiology - Last 24 Hours (Table) 07/26/20 21:17 Urine Culture - Final Urine,Catheterized Armida albicans 07/26/20 22:06 Blood Culture - Preliminary Blood No Growth after 24 hours Assessment and Plan Assessment: * Altered mental status change due to Toxic metabolic encephalopathy. * Acute ischemic stroke small, right frontal region with mild petechial hemorrhage in the cortical ribbon. * Slight elevated LFT's--worsening. * Acute kidney injury requiring hemodialysis. Renal functions improving. * Acute hypoxic respiratory failure from COVID-19 related pneumonia s/p trach on 07/21/2020. * Status post revision of PEG tube. * Left hand ischemia * Anemia * Leukopenia (new onset) * Hypertension * Morbid obesity * Legal blindness * Obstructive sleep apnea Plan: * Continue aspirin 150 mg. * Carotid Doppler showed no hemodynamic significant stenosis of the proximal ICA. * 2-D echo from 07/06/2020 showed normal left-ventricular size. Moderate concentric LVH. EF is 55-60%. Right ventricle is severely enlarged. Mild TR. * Dr. Gaspar Spoke to patient's brother on the phone. Discussed with him about the results of the CAT scan and the current neurological condition. Discussed with him about further evaluation for mechanism of stroke with possible AGNIESZKA. He consented to proceed with AGNIESZKA to evaluate for the source of stroke. * Dr. Gaspar Spoke to executive sales manager Dr. Koroma. He believes AGNIESZKA will not change the management, as patient at present is not a candidate for anticoagulation j ust because of his hemorrhagic stroke. 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 * EEG 07/20/2020 also revealed severe degree of background slowing consistent with encephalopathy. No epileptiform activity seen. * Prognosis is still very guarded based upon his current neurological status, physical examination and underlying multiple comorbid conditions. * Ammonia level <9. * I ordered repeat CT head to evaluate if any evolution of hemorrhage. From a neurological standpoint, patient can be started on subq heparin for DVT prophylaxis. * Will defer medical management to the ICU team and primary team. * The patient prognosis is very guarded. On my examination patient had only brainstem reflexes but the patient's nurse today and yesterday AM, patient was following few command (squeezing hand appropriately today). The patient's quality of life seems poor. * Pending placement to LTAC. The plan is discussed with the patient's nurse. UPDATE: CT of the head is reported as overall stable finding, evolving subacute hemorrhagic infarct over the right frontal lobe shows no significant interval change. No new acute intracranial hemorrhage or midline shift. No significant change from a most recent CT From a neurological standpoint the patient can be started on the subcu heparin or Lovenox for DVT prophylaxis. I increase the aspirin from 150 mg to 300 mg suppository. Will follow-up with the patient sporadically. Raymundo Meneses MD Neuro-Hospitalist Time with Patient: Less than 30
[2020-07-28 12:52] LABS: INR 1.2 (<1.2)
[2020-07-28 12:53] LABS: D-Dimer 6.99 mg/L FEU (<0.60); Partial Thromboplastin Time 25.5 sec (22.0-30.0); Prothrombin Time 12.2 sec (9.0-12.0)
[2020-07-28 13:00] LABS: Amorphous Sediment,Urine Occasional /hpf; Appearance,Urine Turbid (Clear); Bacteria,Urine Occasional /hpf; Bilirubin,Urine Negative (Negative); Blood,Urine Small (Negative); Color,Urine Yellow; Glucose,Urine (UA) Negative (Negative); Granular Casts,Urine 5 /lpf (0); Hyaline Casts,Urine 5 /lpf (0-2); Ketones,Urine Negative (Negative); Leukocyte Esterase,Urine Trace (Negative); Mucus,Urine Occasional /hpf; Nitrite,Urine Negative (Negative); Protein,Urine Trace (Negative); RBC,Urine 11 /hpf (0-5); Specific Gravity,Urine 1.011 (1.001-1.035); Squamous Epithelial Cell,Urine 4 /hpf (0-4); Urobilinogen,Urine <2.0 mg/dL (<2.0); WBC,Urine 25 /hpf (0-5)
--- NOTE | 2020-07-28 16:11 | CT ---
EXAMINATION TYPE: CT brain wo con DATE OF EXAM: 07/28/2020 HISTORY: Altered mental status. Assess if change bleed. CT DLP: 1153.4 mGycm. Automated Exposure Control for Dose Reduction was Utilized. TECHNIQUE: CT scan of the head is performed without contrast. COMPARISON: CT brain from 2 days ago and older CTs. FINDINGS: There is no new acute intracranial hemorrhage or midline shift identified. There is mild to moderate diffuse ventricular and sulcal prominence consistent with diffuse cerebral atrophy greate st over bilateral frontal lobes redemonstrated. Findings slightly more prominent over the left versu s right side similar to prior. There is mild low-attenuation in the periventricular white matter cons istent with chronic small vessel ischemic change redemonstrated. Persistent focal area of low-attenuation with subcortical curvilinear hyperdensity felt to reflect ev olving acute/subacute infarct near axial image 20 and coronal image 33 current study. No significant change from prior studies. Increased opacification bilateral mastoid air cells more prominent on the right redemonstrated. Corre late clinically to exclude mastoiditis. Persistent dependent and patchy fluid right sphenoid sinus and dependent fluid in the posterior left ethmoid sinus. Globes remain intact bilaterally. IMPRESSION: Overall stable findings, evolving subacute hemorrhagic infarct right frontal lobe shows n o significant interval change. No new acute intracranial hemorrhage or midline shift. No significant change from most recent CT.
[2020-07-28] MEDS: SODIUM CHLORIDE 0.9% 1,000 ML IV SCH (16:24)
[2020-07-28 17:16] LABS: Anisocytosis Slight; HCT 23.3 % (39.0-53.0); HGB 7.3 gm/dL (13.0-17.5); MCH 29.6 pg (25.0-35.0); MCHC 31.4 g/dL (31.0-37.0); MCV 94.5 fL (80.0-100.0); Platelet Count 133 k/uL (150-450); RBC 2.47 m/uL (4.30-5.90); RDW 17.1 % (11.5-15.5); Reticulocyte % 4.6 % (0.5-2.0)
[2020-07-28 17:17] LABS: WBC 0.2 k/uL (3.8-10.6)
[2020-07-28 17:55] LABS: Glucose,Whole Blood 133 mg/dL (75-99)
--- NOTE | 2020-07-28 19:09 | P.CONS ---
History of Present Illness - Reason for Consult Consult date: 07/28/20 Pancytopenia Requesting physician: Nelia Conley - Chief Complaint COVID - History of Present Illness Mr. Malcolm is a 59 year old male patient who has been admitted to [facility] for a prolonged stay due to COVID and complications of COVID. He was admitted and intubated since 07/05/2020. Under the care of intensive care unit, intubated. Pulmonary has followed closely for Covid 19 related pneumonia and nephrology for acute kidney injury which he did require hemodialysis. He has been receiving Steroids and ELiquis 2.5mg BID (now on prophylaxic dose of lovenox and aranesp), blood cultures positive for coagulase- negative staph. He has had tracheostomy and PEG tube placed. His central line catheter tip was positive for Armida albicans, his sputum back on 07/08/2020 was positive for beta-hemolytic strep. Urine culture is currently pending, ID service is following. Patient had a new PEG tube placed on 07/26/2020 he continues on TPN for nutritional support, anticipate restarting his tube feedings this afternoon if cleared by surgery. Remains on ventilator, remained off sedation, and he started to follow some simple commands, however his severe generally weak, he is unable to squeeze with his hands, he opens eyes to voice, withdraws from painful stimuli. patient is currently on Eraxis for Armida albicans on the central line catheter tip, sputum. Patient remains on Rocephin for streptococcal pneumonia. He was febrile in the last 24 hours with a T-max of 101.3F. On 07/25/20 his WBC have started to decrease, today 0.2. Hemoglobin 6.5 in which he was given one unit of PRBC, platelets are also decreasing 108K today. DIC work-up is in progress. Because of the progressive pancytopenia we have been asked to further evaluate Review of Systems ROS unobtainable: due to mental status Past Medical History Past Medical History: Hypertension, Osteoarthritis (OA), Sleep Apnea/CPAP/BIPAP Additional Past Medical History / Comment(s): Pt tested covid + on 06/26/20 at [facility]. Pt is legally blind, htn but pt was having issues with swelling so he stopped taking htn med, RENETTA without device d/t pt unable to see well enough to keep it clean, chronic low back pain, diverticular disease, benign colon polyp. History of Any Multi-Drug Resistant Organisms: None Reported Past Surgical History: Appendectomy Additional Past Surgical History / Comment(s): Colonoscopy/benign polyp Past Anesthesia/Blood Transfusion Reactions: No Reported Reaction Smoking Status: Former smoker - Past Family History Father Family Medical History: CVA/TIA, Hypertension Mother Family Medical History: No Reported History Brother(s) Family Medical History: Hypertension Sister(s) Family Medical History: Cancer Medications and Allergies Home Medications Medication Instructions Recorded Confirmed Type Sertraline HCl [Zoloft] 200 mg PO DAILY 10/24/14 07/04/20 History ARIPiprazole [Abilify] 5 mg PO BID 08/14/18 07/04/20 History ALPRAZolam [Xanax] 0.25 mg PO DAILY PRN 07/04/20 07/04/20 History Cholecalciferol (Vitamin D3) 125 mcg PO DAILY 07/04/20 07/04/20 History [Vitamin D3 (5000 Iu)] Zinc 50 mg PO DAILY 07/04/20 07/04/20 History Allergies Allergy/AdvReac Type Severity Reaction Status Date / Time Penicillins Allergy Anaphylaxis Verified 07/04/20 20:26 Physical Exam Vitals: Vital Signs Temp Pulse Resp BP Pulse Ox 07/28/20 07:00 120 H 15 137/85 98 07/28/20 06:00 117 H 18 137/73 97 07/28/20 05:00 114 H 24 137/73 97 07/28/20 04:00 100.1 F H 120 H 24 127/85 100 07/28/20 03:00 121 H 24 127/85 98 07/28/20 02:00 123 H 24 110/71 97 07/28/20 01:00 122 H 24 105/58 99 07/28/20 00:11 125 H 24 105/58 98 07/28/20 00:00 100.2 F H 120 H 24 109/73 96 07/27/20 23:00 126 H 24 111/79 95 07/27/20 22:00 128 H 24 104/88 100 07/27/20 21:00 128 H 24 104/88 98 07/27/20 20:00 99.3 F 116 H 24 111/79 98 07/27/20 19:00 126 H 22 107/68 99 07/27/20 18:00 112 H 28 H 124/73 92 L 07/27/20 17:00 99.6 F 116 H 23 108/80 99 07/27/20 16:00 124 H 24 89/54 99 07/27/20 15:00 121 H 29 H 97/65 99 07/27/20 14:00 124 H 27 H 93/66 98 07/27/20 13:00 120 H 22 93/66 98 Intake and Output 07/27/20 07/28/20 07/28/20 22:59 06:59 14:59 Intake Total 313 488 46 Output Total 590 650 100 Balance -277 -162 -54 Intake: IV 80 80 10 0.9 Normal Saline 80 80 10 Tube Feeding 173 288 36 Other 60 120 Output: Urine 590 650 100 Other: Voiding Method Indwelling Catheter Indwelling Catheter Weight 107.1 kg Trach Critically ill Multiple areas of eccymosis/lines Catheter with urine Peg tube CDI Ext: Edema Results CBC & Chem 7: 07/28/20 17:00 07/28/20 05:30 Labs: Abnormal Lab Results - Last 24 Hours (Table) 07/27/20 07/27/20 07/28/20 Range/Units 03:30 17:57 05:30 WBC 0.2 L* (3.8-10.6) k/uL RBC 2.17 L (4.30-5.90) m/uL Hgb 6.5 L* D (13.0-17.5) gm/dL Hct 20.3 L (39.0-53.0) % RDW 16.6 H (11.5-15.5) % Plt Count 108 L (150-450) k/uL Chloride (98-107) mmol/L BUN (9-20) mg/dL Creatinine (0.66-1.25) mg/dL Glucose (74-99) mg/dL POC Glucose (mg/dL) 117 H (75-99) mg/dL Calcium (8.4-10.2) mg/dL Ferritin 835.4 H (22.0-322.0) ng/mL Total Bilirubin (0.2-1.3) mg/dL ALT (4-49) U/L C-Reactive Protein (<1.0) mg/dL Total Protein (6.3-8.2) g/dL Albumin (3.5-5.0) g/dL Crossmatch 07/28/20 07/28/20 07/28/20 Range/Units 05:30 06:05 10:32 WBC (3.8-10.6) k/uL RBC (4.30-5.90) m/uL Hgb (13.0-17.5) gm/dL Hct (39.0-53.0) % RDW (11.5-15.5) % Plt Count (150-450) k/uL Chloride 108 H (98-107) mmol/L BUN 119 H* (9-20) mg/dL Creatinine 3.92 H (0.66-1.25) mg/dL Glucose 119 H (74-99) mg/dL POC Glucose (mg/dL) 130 H (75-99) mg/dL Calcium 8.3 L (8.4-10.2) mg/dL Ferritin (22.0-322.0) ng/mL Total Bilirubin 2.7 H (0.2-1.3) mg/dL ALT 104 H (4-49) U/L C-Reactive Protein 29.6 H (<1.0) mg/dL Total Protein 5.1 L (6.3-8.2) g/dL Albumin 2.7 L (3.5-5.0) g/dL Crossmatch See Detail 07/28/20 Range/Units 11:49 WBC (3.8-10.6) k/uL RBC (4.30-5.90) m/uL Hgb (13.0-17.5) gm/dL Hct (39.0-53.0) % RDW (11.5-15.5) % Plt Count (150-450) k/uL Chloride (98-107) mmol/L BUN (9-20) mg/dL Creatinine (0.66-1.25) mg/dL Glucose (74-99) mg/dL POC Glucose (mg/dL) 132 H (75-99) mg/dL Calcium (8.4-10.2) mg/dL Ferritin (22.0-322.0) ng/mL Total Bilirubin (0.2-1.3) mg/dL ALT (4-49) U/L C-Reactive Protein (<1.0) mg/dL Total Protein (6.3-8.2) g/dL Albumin (3.5-5.0) g/dL Crossmatch Microbiology - Last 24 Hours (Table) 07/26/20 21:17 Urine Culture - Final Urine,Catheterized Armida albicans 07/26/20 22:06 Blood Culture - Preliminary Blood No Growth after 24 hours Chest x-ray: report reviewed Assessment and Plan (1) Pancytopenia Current Visit: Yes Status: Acute Code(s): D61.818 - OTHER PANCYTOPENIA SNOMED Code(s): 162667034 (2) Pneumonia due to COVID-19 virus Current Visit: Yes Status: Acute Code(s): U07.1 - COVID-19; J12.82 - Pneumonia due to coronavirus disease 2019 SNOMED Code(s): 833913154611492546 Plan: Assessment and Recommendations: Pancytopenia: - Secondary to chronic Illness and bone marrow suppression - Monitor for DIC in acute illness/recurrent infections - Transfuse PRBC hemoglobin less than 7, platelets less than 10/15K Leukopenia: I do not have a recent differential: If neutropenia will determine risk of cytokine reaction in determining the additoin of growth factor COntinue on anti-coagulation if no visible bleeding/platelets greater than 50K COVID Pneumonia and Complications: - Per the care of ICU. Discussed with RN and continue to monitor DIC
--- NOTE | 2020-07-28 22:04 | P.PN ---
Subjective This is a pleasant 53 years old male with past medical history of hypertension, osteoarthritis, sleep apnea. Presents with respiratory distress secondary to covid pneumonia and secondary bacterial infection is suspected as well with positive sputum culture for streptococcus, group C. Currently remains on ceftriaxone per ID team. Patient has prolonged course in the ICU. He was on mechanical ventilation and need a small dose of Levophed at the beginning , Also patient has elevated troponin and he was started on heparin drip however he developed coffee-ground emesis via anicteric tube, heparin drip was stopped and hemoglobin is stable and his hit antibodies came back positive, Biomedical Photographer found to his elevated troponin is secondary to his Covid infection and hypotension, he was started on argatroban drip for suspected left hand ischemia . Currently he kept on aspirin one 50 mg rectally daily, with no any anticoagulation, Eliquis is held for PEG tube placement His renal function worsened at certain point needing hemodialysis due to his Covid infectionl, nonoliguric. Currently he is off dialysis Receiving nutrition through TPN, and scheduled for PEG tube placement today Plan for him was to go to LTAC wants PEG tube was placed and functional Patient is currently on eraxis, he is also on dexamethasone , Lasix IV 80 mg twice daily, Protonix 40 mg IV twice macey I called his medical insurance provider [employer] at [phone] extension [phone] at 2 PM, however the midline was 2 PM today , of physicians were busy per staff and they said they will call me tomorrow 8:30-8:40 5 AM, I provided my cell phone to [employer] 07/27/2020 Patient remains in the ICU, his vent dependent. Status post tracheostomy. He got his PEG tube yesterday and start tube feeding today.. Associated with leukopenia He tolerated that well so far per ICU nurse. His postoperative go to LTAC tomorrow if he was going to be stable however he is a spiking temperature last night and today 101.9 Labs today showing leukopenia with ellipses 0.6, hemoglobin stable 8.2 as well as platelets 148 k. . Glucose control, creatinine 3.6 which is a stable over the last 10 days. inflammatory markers still elevated but stable with ferritin is 35. Total jennifer irubin is 3.4, liver enzymes mildly elevated with AST 79 and AFP 115, C-reactive protein is elevated at 14.9 Chest x-ray showing bilateral multifocal opacity most prominent in the apices and bases on background low lung volume consistent with COVID-19 infection. No interval change from one day earlier Currently patient kept on Eraxis, ceftriaxone. Also she is on dexamethasone 4 mg IV daily, Lasix 80 mg IV daily. Today I did appear to be with Dr. Johnson from [facility], unfortunately she rejected the case stating there is no documentation of weaning. I tried to explain to her that usually we do a sedation holiday and weaning trial prior to any tracheostomy under the care of critical care team however she was asking where in the chart documented, it was difficult to locate documentation about weaning trial in this patient with more than 3 weeks hospital stays and in a few minutes over the phone, eventually she ejected the case as above. Discussed with oncology social worker 07/28/2020 Patient remains in the ICU on mechanical ventilation with pulmonary/critical care team help with vent management Patient hemodynamically stable Labs showing leukopenia 0.2K, hemoglobin is 6.5 and platelets 108, after 1 unit of blood transfusion hemoglobin went up to 7.3 and platelet with a 3. Creatinine is 3.9, compared to 3.[address] of the brain showing evolving subacute hemorrhagic infarct of the right frontal lobe shows no significant interval change 1 unit of blood is ordered today. Hematology team consulted for severe leukopenia and throughout its due to his severe critical illness and bone marrow suppression and continue the current management and transfuse as needed further recommendations Currently patient kept on Eraxis, Also she is on dexamethasone 4 mg IV daily, Lasix 80 mg IV daily. Ceftriaxone was discontinued today With the help of the oncology social worker, today signed a letter to his medical insurance provider to approve for his LTAC transfer, the patient was sent today, explaining that LTAC is the main way to treat him , Also as per my discussion with oncology social worker Ryan, critical care team also will try to contact Lynn Review of systems: N/a Active Medications Generic Name Dose Route Start Last Admin Trade Name Freq PRN Reason Stop Dose Admin Acetaminophen 650 mg 07/26/20 20:36 07/27/20 12:24 Acetaminophen Suppository 650 Mg Supp RECTAL 650 mg Q6HR PRN Administration Fever and/ or Pain Albuterol Sulfate 2 puff 07/05/20 08:00 07/28/20 19:29 Albuterol Hfa Inhaler INHALATION 2 puff RT-TID PRAFUL Administration Aspirin 300 mg 07/29/20 09:00 Aspirin 300 Mg Supp RECTAL DAILY PRAFUL Darbepoetin Rodrigo 40 mcg 07/14/20 11:00 07/28/20 09:44 Darbepoetin Rodrigo 40 Mcg/0.4 Ml Syringe SQ 40 mcg Q7D PRAFUL Administration Dexamethasone Sodium Phosphate 4 mg 07/27/20 09:00 07/28/20 08:47 Dexamethasone Sod Phosphate 4 Mg/Ml 1 Ml Vial IV 4 mg DAILY PRAFUL Administration Enoxaparin Sodium 30 mg 07/29/20 09:00 Enoxaparin 30 Mg/0.3 Ml Syringe SQ DAILY PRAFUL Furosemide 80 mg 07/28/20 09:00 07/28/20 08:47 Furosemide 10 Mg/Ml 10 Ml Vial IV 80 mg DAILY PRAFUL Administration Hydromorphone HCl 0.5 mg 07/28/20 11:35 07/28/20 11:59 Hydromorphone 0.5 Mg/0.5 Ml Syringe IVP 0.5 mg Q3HR PRN Administration Pain Sodium Chloride 1,000 mls @ 10 mls/hr 07/22/20 19:30 07/28/20 16:24 Saline 0.9% IV Not Given .Q24H PRAFUL Anidulafungin 100 mg/ Sodium 130 mls @ 84 mls/hr 07/27/20 09:00 07/28/20 08:46 Chloride IVPB 84 mls/hr DAILY PRAFUL Administration Insulin Aspart 0 unit 07/11/20 12:00 07/28/20 18:31 Insulin Aspart (Novolog) 100 Unit/Ml Vial SQ 1 unit Q6H PRAFUL Administration Protocol Miscellaneous Information 1 each 07/25/20 05:03 Potassium Replacement Protocol 1 Each Misc MISCELLANE DAILY PRN Per Protocol Protocol Pantoprazole Sodium 40 mg 07/05/20 21:00 07/28/20 20:15 Pantoprazole 40 Mg/10 Ml Vial IVP 40 mg BID PRAFUL Administration Objective - Vital Signs Vital signs: Vital Signs Temp 97.8 F 07/28/20 13:31 Pulse 113 H 07/28/20 13:31 Resp 27 H 07/28/20 13:31 BP 116/58 07/28/20 13:31 Pulse Ox 95 07/28/20 13:31 Intake & Output 07/27/20 07/28/20 07/28/20 18:59 06:59 18:59 Intake Total 327.267 681 118 Output Total 975 865 100 Balance -647.733 -184 18 Weight 107.8 kg 107.1 kg Intake: IV 145 120 10 0.9 Normal Saline 90 120 10 Mvi, Adult No.4 with Vit 55 K 10 ml Trace (Conc-1Ml/ Dose) 1 ml Parenteral Electrolytes 20 ml Potassium Chloride 20 meq In Amino Acid 5%-D15w 1, 000 ml @ 55 mls/hr IV . [id number] PRAFUL Rx#:[id number] Intake, IV Titration 32.267 Amount Clevidipine Butyrate 25 2.267 mg In Empty Bag 1 bag @ 1 MG/HR 2 mls/hr IV .Q24H PRAFUL Rx#:[id number] Sodium Chloride 0.9% 1, 30 000 ml @ 10 mls/hr IV . Q24H PRAFUL Rx#:[id number] Tube Feeding 120 381 108 Blood Product 0 Rc As-1 Unit 0 [id number] Other 30 180 Output: Urine 975 865 100 Other: Voiding Method Indwelling Catheter Indwelling Catheter ABP, PAP, CO, CI - Last Documented Arterial Blood Pressure 118/64 - Exam -GENERAL: The patient is intubated and sedated, well nourished. HEENT: Pupils are round and equally reacting to light. EOMI. No scleral icterus. No conjunctival pallor. Normocephalic, atraumatic. No pharyngeal erythema. No thyromegaly. CARDIOVASCULAR: S1 and S2 present. No murmurs, rubs, or gallops. PULMONARY: Chest is clear to auscultation, no wheezing or crackles. ABDOMEN: Soft, nontender, nondistended, normoactive bowel sounds. No palpable organomegaly. MUSCULOSKELETAL: No joint swelling or deformity. EXTREMITIES: No cyanosis, clubbing, or pedal edema. NEUROLOGICAL: Gross neurological examination did not reveal any focal deficits. SKIN: No rashes. no petechiae. - Labs CBC & Chem 7: 07/28/20 17:00 07/28/20 05:30 Labs: Abnormal Lab Results - Last 24 Hours (Table) 07/27/20 07/28/20 07/28/20 Range/Units 17:57 05:30 05:30 WBC 0.2 L* (3.8-10.6) k/uL RBC 2.17 L (4.30-5.90) m/uL Hgb 6.5 L* D (13.0-17.5) gm/dL Hct 20.3 L (39.0-53.0) % RDW 16.6 H (11.5-15.5) % Plt Count 108 L (150-450) k/uL PT (9.0-12.0) sec INR (<1.2) Fibrinogen (200-500) mg/dL D-Dimer (<0.60) mg/L FEU Chloride 108 H (98-107) mmol/L BUN 119 H* (9-20) mg/dL Creatinine 3.92 H (0.66-1.25) mg/dL Glucose 119 H (74-99) mg/dL POC Glucose (mg/dL) 117 H (75-99) mg/dL Calcium 8.3 L (8.4-10.2) mg/dL Ferritin 967.1 H (22.0-322.0) ng/mL Total Bilirubin 2.7 H (0.2-1.3) mg/dL ALT 104 H (4-49) U/L C-Reactive Protein 29.6 H (<1.0) mg/dL Total Protein 5.1 L (6.3-8.2) g/dL Albumin 2.7 L (3.5-5.0) g/dL Urine Protein (Negative) Urine Blood (Negative) Ur Leukocyte Esterase (Negative) Urine RBC (0-5) /hpf Urine WBC (0-5) /hpf Amorphous Sediment (None) /hpf Urine Bacteria (None) /hpf Hyaline Casts (0-2) /lpf Urine Mucus (None) /hpf Crossmatch 07/28/20 07/28/20 07/28/20 Range/Units 06:05 10:32 11:45 WBC (3.8-10.6) k/uL RBC (4.30-5.90) m/uL Hgb (13.0-17.5) gm/dL Hct (39.0-53.0) % RDW (11.5-15.5) % Plt Count (150-450) k/uL PT 12.2 H (9.0-12.0) sec INR 1.2 H (<1.2) Fibrinogen 718 H (200-500) mg/dL D-Dimer 6.99 H (<0.60) mg/L FEU Chloride (98-107) mmol/L BUN (9-20) mg/dL Creatinine (0.66-1.25) mg/dL Glucose (74-99) mg/dL POC Glucose (mg/dL) 130 H (75-99) mg/dL Calcium (8.4-10.2) mg/dL Ferritin (22.0-322.0) ng/mL Total Bilirubin (0.2-1.3) mg/dL ALT (4-49) U/L C-Reactive Protein (<1.0) mg/dL Total Protein (6.3-8.2) g/dL Albumin (3.5-5.0) g/dL Urine Protein (Negative) Urine Blood (Negative) Ur Leukocyte Esterase (Negative) Urine RBC (0-5) /hpf Urine WBC (0-5) /hpf Amorphous Sediment (None) /hpf Urine Bacteria (None) /hpf Hyaline Casts (0-2) /lpf Urine Mucus (None) /hpf Crossmatch See Detail 07/28/20 07/28/20 Range/Units 11:49 11:55 WBC (3.8-10.6) k/uL RBC (4.30-5.90) m/uL Hgb (13.0-17.5) gm/dL Hct (39.0-53.0) % RDW (11.5-15.5) % Plt Count (150-450) k/uL PT (9.0-12.0) sec INR (<1.2) Fibrinogen (200-500) mg/dL D-Dimer (<0.60) mg/L FEU Chloride (98-107) mmol/L BUN (9-20) mg/dL Creatinine (0.66-1.25) mg/dL Glucose (74-99) mg/dL POC Glucose (mg/dL) 132 H (75-99) mg/dL Calcium (8.4-10.2) mg/dL Ferritin (22.0-322.0) ng/mL Total Bilirubin (0.2-1.3) mg/dL ALT (4-49) U/L C-Reactive Protein (<1.0) mg/dL Total Protein (6.3-8.2) g/dL Albumin (3.5-5.0) g/dL Urine Protein Trace H (Negative) Urine Blood Small H (Negative) Ur Leukocyte Esterase Trace H (Negative) Urine RBC 11 H (0-5) /hpf Urine WBC 25 H (0-5) /hpf Amorphous Sediment Occasional H (None) /hpf Urine Bacteria Occasional H (None) /hpf Hyaline Casts 5 H (0-2) /lpf Urine Mucus Occasional H (None) /hpf Crossmatch Microbiology - Last 24 Hours (Table) 07/26/20 21:17 Urine Culture - Final Urine,Catheterized Armida albicans 07/26/20 22:06 Blood Culture - Preliminary Blood No Growth after 24 hours Assessment and Plan Assessment: Acute Covid pneumonia New fever and leukopenia, reculture sent for urine and blood Status post Mild septic shock secondary to above especially his bacterial infection Acute hypoxic respiratory failure needing mechanical ventilation Acute kidney injury needed hemodialysis , currently he is off HD Acute hemorrhagic stroke , right frontal region with mild petechial hemorrhage in the cortical ribbon. AMS secondary to metabolic encephalogpathy and stroke, s/p PEG placement and tracheostomy as he could not be weaned off m.ventilation Suspected ischemia of the left hand on anticoagulation , resolved now Coffee ground vomiting with suspected acute GI bleed Thrombocytopenia secondary to sepsis and heparin induced thrombocytopenia Elevated troponin, secondary to renal function impairment, viral infection and hypotension Plan: This is a pleasant 59 years old male who presents with Covid pneumonia, on mechanical ventilation and AMS. Continue with mechanical ventilation for pulmonary/critical care team will follow the patient closely.Continue with multiple vitamin zinc and vitamin D Reculture urine or blood in view of a spiking temperature. Currently on argatroban drip for pulmonary team. Keep monitoring hemoglobin and platelets GI and cardiology, nephrology team on the case Labs and medication were reviewed.. Continue same treatment. Continue with symptomatic treatment. Resume home medication. Monitor lytes and vitals. DVT and GI prophylaxis. Further recommendations as per clinical course of the patient DVT prophylaxis: eliquis on hold . Continue with DVT prophylaxis as per critical care team GI Prophylaxis: Ppi, Protonix twice a day Prognosis is guarded The peel was sent to his oncology social worker provider Lynn
--- NOTE | 2020-07-28 22:17 | CONS ---
CONSULTATION DATE OF SERVICE: 07/28/2020 REASON FOR CONSULTATION: Sepsis. HISTORY OF PRESENT ILLNESS: The patient is a 59-year-old male initially admitted to the hospital with respiratory distress. He has been diagnosed with acute COVID-19 pneumonia. Initial presentation was on 07/05/2020, almost 4 weeks ago. The patient had progressive worsening of his respiratory status and failure to be extubated and ended up having tracheostomy and PEG tube placement on 07/21/2020 with redo of the PEG tube, as it was clogged. The patient also had a central line, possible arterial line, which was apparently discontinued on 07/22, as these cultures are positive for Armida albicans. There were no blood cultures done at that time when the patient had those catheter cultures done. The patient was afebrile, with no fever during that time. However, the patient started spiking a fever of 101 degrees Fahrenheit on 07/26 did not spike a fever yesterday and a low-grade fever today. The patient also was noted to have worsening of his white count, which has come down to 0.2. Platelet count is 133. Infectious Disease was asked today to re-evaluate the patient because of concern for sepsis. Most information has been obtained from review of the chart, as the patient is currently is on the vent and is unable to provide any history. The patient is hemodynamically stable. He is not on any pressor support. No significant purulent secretions through the ET as reported by nursing staff. Patient has been tolerating his tube feeds and no diarrhea has been reported. REVIEW OF SYSTEMS: Positive points have been mentioned in the HPI. Complete review could not be obtained because of his underlying status. Past medical and surgical history and medication reviewed. PHYSICAL EXAMINATION: Blood pressure 150/100 with a pulse of 124, temperature 98.3. He is 92% on 30% FiO2. General description is a middle-aged male intubated on the vent. HEENT: Examination shows pallor. No scleral icterus. NECK: Trach site is clean. LUNGS: Unlabored breathing. Decreased intensity of breath sounds. No wheeze. HEART: S1, S2. Regular rate and rhythm. ABDOMEN: Soft. No tenderness. No guarding or rigidity. PEG tube site is clean. EXTREMITIES: Trace edema of feet. SKIN EXAMINATION: No rash or mass palpable. Neurologically the patient is currently sedated on the vent. LABS: Hemoglobin 7.3, white count 0.2, BUN of 119, creatinine 3.92. Urine has been mildly positive. DIAGNOSTIC IMPRESSION AND PLAN: 1. Patient with an episode of fever; could be more likely related to the possible catheter-associated infection. That has been discontinued and has been going predominantly Armida, and the patient seems to be responding to the Eraxis. Patient is currently to cover his focus of infection. Urine to be the likely focus. 2. Leukopenia, more likely related to Rocephin. The patient received more than 2 or 3 weeks of IV Rocephin. No need for further continuation of the same medication. PLAN: 1. Discontinue the Rocephin. 2. Change his Silva catheter and obtain urine culture from the new Silva. 3. Continue with Eraxis 100 mg daily. 4. Will follow his clinical condition and culture to further adjust medication if needed. Thank you for this consultation. Will follow this patient along with you. GIAN / RALFN: [id number] / [place]
[2020-07-28 23:52] LABS: Glucose,Whole Blood 132 mg/dL (75-99)
[2020-07-29] MEDS: INSULIN ASPART (NovoLOG) 100 UNIT/ML VIAL SQ SCH ×5 (00:16→23:56)
[2020-07-29 01:31] LABS: Anisocytosis Slight; HCT 22.7 % (39.0-53.0); HGB 7.2 gm/dL (13.0-17.5); MCH 30.1 pg (25.0-35.0); MCHC 31.9 g/dL (31.0-37.0); MCV 94.3 fL (80.0-100.0); Mean Platelet Volume 9.2; Platelet Count 141 k/uL (150-450); RDW 17.1 % (11.5-15.5)
[2020-07-29 01:35] LABS: WBC 0.3 k/uL (3.8-10.6)
[2020-07-29 02:10] LABS: Rouleaux Present
[2020-07-29 05:10] LABS: Glucose,Whole Blood 116 mg/dL (75-99)
[2020-07-29 05:31] LABS: ABG Base Excess 1.4 mmol/L; ABG HCO3 26 mmol/L (21-25); ABG PCO2 39 mmHg (35-45); ABG PH 7.43 (7.35-7.45); ABG PO2 94 mmHg (83-108); ABG TCO2 27 mmol/L (19-24); Allen Test Performed? Yes
[2020-07-29 05:48] LABS: Anisocytosis Slight; HCT 22.2 % (39.0-53.0); MCH 29.3 pg (25.0-35.0); MCHC 31.4 g/dL (31.0-37.0); MCV 93.4 fL (80.0-100.0); Mean Platelet Volume 8.7; Platelet Count 142 k/uL (150-450); RBC 2.38 m/uL (4.30-5.90); RDW 16.9 % (11.5-15.5); Reticulocyte % 4.1 % (0.5-2.0)
[2020-07-29 05:53] LABS: WBC 0.2 k/uL (3.8-10.6)
[2020-07-29 06:14] LABS: Anisocytosis (M) Present
[2020-07-29 06:21] LABS: Calcium 8.7 mg/dL (8.4-10.2); Potassium 3.8 mmol/L (3.5-5.1)
[2020-07-29] MEDS: ALBUTEROL HFA INHALER INHALATION SCH ×3 (07:27→19:35)
[2020-07-29] MEDS: DEXAMETHASONE SOD PHOSPHATE 4 MG/ML 1 ML VIAL IV SCH (08:51)
[2020-07-29] MEDS: PANTOPRAZOLE 40 MG/10 ML VIAL IVP SCH ×2 (08:51→20:10)
[2020-07-29] MEDS: ASPIRIN 300 MG SUPP RECTAL SCH (08:51)
[2020-07-29] MEDS: ENOXAPARIN 30 MG/0.3 ML SYRINGE SQ SCH (08:51)
[2020-07-29] MEDS: ANIDULAFUNGIN 100 MG in SODIUM CHLORIDE 0.9% 100 ML IVPB SCH (08:51)
[2020-07-29 11:09] LABS: Glucose,Whole Blood 129 mg/dL (75-99)
--- NOTE | 2020-07-29 11:23 | P.PN ---
Subjective Patient is seen in follow-up for acute kidney injury. Maintained on IV Lasix. Nonoliguric. Renal function worse. Creatinine 4.28 today. Receiving tube feeding. Status post tracheostomy and PEG tube placement this admission. On 30% FiO2. Received a unit of blood yesterday. Hemoglobin 7.0 today. Vital signs are stable. Tracheostomy noted. No gross edema. Exam discussed with the nurse. Objective - Vital Signs Vital signs: Vital Signs Temp 98.8 F 07/29/20 08:00 Pulse 125 H 07/29/20 09:00 Resp 26 H 07/29/20 09:00 BP 123/88 07/29/20 09:00 Pulse Ox 95 07/29/20 09:00 Intake & Output 07/28/20 07/29/20 07/29/20 18:59 06:59 18:59 Intake Total 774 528 242 Output Total 985 940 250 Balance -211 -412 -8 Weight 105.9 kg Intake: IV 170 60 10 0.9 Normal Saline 70 60 10 cefTRIAXone 1 gm In 100 Sodium Chloride 0.9% 50 ml @ 100 mls/hr IVPB Q24HR [facility] Rx#:[id number] Intake, IV Titration 150 100 Amount Anidulafungin 100 mg In 100 100 Sodium Chloride 0.9% 100 ml @ 84 mls/hr IVPB DAILY [facility] Rx#:[id number] Desmopressin Acetate 28 50 mcg In Sodium Chloride 0. 9% 50 ml @ 200 mls/hr IVPB ONCE ONE Rx#: [id number] Tube Feeding 144 468 72 Blood Product 310 Rc As-1 Unit 310 [id number] Other 60 Output: Urine 985 940 250 Other: Voiding Method Indwelling Catheter Indwelling Catheter ABP, PAP, CO, CI - Last Documented Arterial Blood Pressure 118/64 - Labs CBC & Chem 7: 07/29/20 05:00 07/29/20 05:00 Labs: Abnormal Lab Results - Last 24 Hours (Table) 07/28/20 07/28/20 07/28/20 Range/Units 05:30 10:32 11:45 WBC (3.8-10.6) k/uL RBC (4.30-5.90) m/uL Hgb (13.0-17.5) gm/dL Hct (39.0-53.0) % RDW (11.5-15.5) % Plt Count (150-450) k/uL Retic Count (0.5-2.0) % PT 12.2 H (9.0-12.0) sec INR 1.2 H (<1.2) Fibrinogen 718 H (200-500) mg/dL D-Dimer 6.99 H (<0.60) mg/L FEU ABG HCO3 (21-25) mmol/L ABG Total CO2 (19-24) mmol/L ABG O2 Saturation (94-97) % Sodium (137-145) mmol/L Chloride (98-107) mmol/L BUN (9-20) mg/dL Creatinine (0.66-1.25) mg/dL Glucose (74-99) mg/dL POC Glucose (mg/dL) (75-99) mg/dL Ferritin 967.1 H (22.0-322.0) ng/mL Urine Protein (Negative) Urine Blood (Negative) Ur Leukocyte Esterase (Negative) Urine RBC (0-5) /hpf Urine WBC (0-5) /hpf Amorphous Sediment (None) /hpf Urine Bacteria (None) /hpf Hyaline Casts (0-2) /lpf Urine Mucus (None) /hpf Crossmatch See Detail 07/28/20 07/28/20 07/28/20 Range/Units 11:49 11:55 17:00 WBC 0.2 L* (3.8-10.6) k/uL RBC 2.47 L (4.30-5.90) m/uL Hgb 7.3 L (13.0-17.5) gm/dL Hct 23.3 L (39.0-53.0) % RDW 17.1 H (11.5-15.5) % Plt Count 133 L (150-450) k/uL Retic Count 4.6 H (0.5-2.0) % PT (9.0-12.0) sec INR (<1.2) Fibrinogen (200-500) mg/dL D-Dimer (<0.60) mg/L FEU ABG HCO3 (21-25) mmol/L ABG Total CO2 (19-24) mmol/L ABG O2 Saturation (94-97) % Sodium (137-145) mmol/L Chloride (98-107) mmol/L BUN (9-20) mg/dL Creatinine (0.66-1.25) mg/dL Glucose (74-99) mg/dL POC Glucose (mg/dL) 132 H (75-99) mg/dL Ferritin (22.0-322.0) ng/mL Urine Protein Trace H (Negative) Urine Blood Small H (Negative) Ur Leukocyte Esterase Trace H (Negative) Urine RBC 11 H (0-5) /hpf Urine WBC 25 H (0-5) /hpf Amorphous Sediment Occasional H (None) /hpf Urine Bacteria Occasional H (None) /hpf Hyaline Casts 5 H (0-2) /lpf Urine Mucus Occasional H (None) /hpf Crossmatch 07/28/20 07/28/20 07/29/20 Range/Units 17:53 23:51 01:00 WBC 0.3 L* (3.8-10.6) k/uL RBC 2.40 L (4.30-5.90) m/uL Hgb 7.2 L (13.0-17.5) gm/dL Hct 22.7 L (39.0-53.0) % RDW 17.1 H (11.5-15.5) % Plt Count 141 L (150-450) k/uL Retic Count (0.5-2.0) % PT (9.0-12.0) sec INR (<1.2) Fibrinogen (200-500) mg/dL D-Dimer (<0.60) mg/L FEU ABG HCO3 (21-25) mmol/L ABG Total CO2 (19-24) mmol/L ABG O2 Saturation (94-97) % Sodium (137-145) mmol/L Chloride (98-107) mmol/L BUN (9-20) mg/dL Creatinine (0.66-1.25) mg/dL Glucose (74-99) mg/dL POC Glucose (mg/dL) 133 H 132 H (75-99) mg/dL Ferritin (22.0-322.0) ng/mL Urine Protein (Negative) Urine Blood (Negative) Ur Leukocyte Esterase (Negative) Urine RBC (0-5) /hpf Urine WBC (0-5) /hpf Amorphous Sediment (None) /hpf Urine Bacteria (None) /hpf Hyaline Casts (0-2) /lpf Urine Mucus (None) /hpf Crossmatch 07/29/20 07/29/20 07/29/20 Range/Units 05:00 05:00 05:00 WBC 0.2 L* (3.8-10.6) k/uL RBC 2.38 L (4.30-5.90) m/uL Hgb 7.0 L (13.0-17.5) gm/dL Hct 22.2 L (39.0-53.0) % RDW 16.9 H (11.5-15.5) % Plt Count 142 L (150-450) k/uL Retic Count 4.1 H (0.5-2.0) % PT (9.0-12.0) sec INR (<1.2) Fibrinogen (200-500) mg/dL D-Dimer 3.83 H (<0.60) mg/L FEU ABG HCO3 (21-25) mmol/L ABG Total CO2 (19-24) mmol/L ABG O2 Saturation (94-97) % Sodium 148 H (137-145) mmol/L Chloride 109 H (98-107) mmol/L BUN 134 H* (9-20) mg/dL Creatinine 4.28 H (0.66-1.25) mg/dL Glucose 116 H (74-99) mg/dL POC Glucose (mg/dL) (75-99) mg/dL Ferritin (22.0-322.0) ng/mL Urine Protein (Negative) Urine Blood (Negative) Ur Leukocyte Esterase (Negative) Urine RBC (0-5) /hpf Urine WBC (0-5) /hpf Amorphous Sediment (None) /hpf Urine Bacteria (None) /hpf Hyaline Casts (0-2) /lpf Urine Mucus (None) /hpf Crossmatch 07/29/20 07/29/20 07/29/20 Range/Units 05:08 05:29 11:07 WBC (3.8-10.6) k/uL RBC (4.30-5.90) m/uL Hgb (13.0-17.5) gm/dL Hct (39.0-53.0) % RDW (11.5-15.5) % Plt Count (150-450) k/uL Retic Count (0.5-2.0) % PT (9.0-12.0) sec INR (<1.2) Fibrinogen (200-500) mg/dL D-Dimer (<0.60) mg/L FEU ABG HCO3 26 H (21-25) mmol/L ABG Total CO2 27 H (19-24) mmol/L ABG O2 Saturation 99.0 H (94-97) % Sodium (137-145) mmol/L Chloride (98-107) mmol/L BUN (9-20) mg/dL Creatinine (0.66-1.25) mg/dL Glucose (74-99) mg/dL POC Glucose (mg/dL) 116 H 129 H (75-99) mg/dL Ferritin (22.0-322.0) ng/mL Urine Protein (Negative) Urine Blood (Negative) Ur Leukocyte Esterase (Negative) Urine RBC (0-5) /hpf Urine WBC (0-5) /hpf Amorphous Sediment (None) /hpf Urine Bacteria (None) /hpf Hyaline Casts (0-2) /lpf Urine Mucus (None) /hpf Crossmatch Microbiology - Last 24 Hours (Table) 07/26/20 22:06 Blood Culture - Preliminary Blood No Growth after 48 hours 07/28/20 11:55 Urine Culture - Preliminary Urine,Voided Assessment and Plan Plan: Assessment: 1. Acute kidney injury secondary to ATN secondary to covid-19 infection and acute blood loss anemia. Nonoliguric. Last hemodialysis July 22. Creatinine 4.28 today. Elevated BUN due to acute kidney injury/diuresis, potential GI bleed and steroids. No active bleeding. 2. Hyperkalemia secondary to acute kidney injury and metabolic acidosis. Improved. 3. Metabolic acidosis secondary to acute kidney. Resolved. 4. Septic shock secondary to covid-19 pneumonia. Off vasopressors. 5. Acute hypoxic respiratory failure secondary to pneumonia. Has a tracheostomy. 6. Hyperphosphatemia secondary to acute kidney injury. Improving. Phosphorus 5.8 as of July 26. 7. Anemia. Component of kidney disease. Maintained on Aranesp. ?GIB. Surgery is following. Status post blood transfusion this admission. Also received DD ELECTRIC METER TESTER on July 28. 8. Hypernatremia from lack of oral water intake. Plan: Hold hemodialysis. Hold Lasix. Add free water at 50 mL per hour with tube feeding. Avoid nephrotoxins. Continue to assess daily for need for renal replacement therapy.
--- NOTE | 2020-07-29 11:58 | P.PN ---
Subjective Progress Note Date: 07/29/20 Principal diagnosis: Acute hypoxic respiratory failure second to COVId 19 pneumonia The patient is seen today 07/12/2020 in follow-up in the intensive care unit. He remains intubated, sedated on the mechanical ventilator at assist control mode of a rate of 36, tidal volume 450, FiO2 40% and a PEEP of 10. Morning blood gases reveal pO2 of 69, pCO2 41, pH 7.35. He remains sedated on propofol at 60 mcg/kg/m, fentanyl at 1 mcg/kg/h, norepinephrine at 0.09 mcg/kg//min, the patient is currently on 0.9 saline at rate of 50 mL an hour. The patient has been off Nimbex since yesterday. He is continued on Argatroban at 0.5 mcg/kg/m. Being nourished with Nepro at 15 ML's per hour. He did receive hemodialysis yesterday with 1 L removed. Chest x-ray reveals mild bibasilar infiltrates. Sputum cultures positive for beta-hemolytic strep, group C. White count 18.1. Hemoglobin 10.6. Platelet count 141. D-dimer 19.69. Sodium 133. Potassium 4.7. Creatinine 4.14. LDH 1067, C-reactive protein 24. Remains on antibiotics in the form of ceftriaxone. Bronchodilators. Vitamin supplements. Dexamethasone. 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 The platelet count is stable and the platelet count is up to 136. On 07/12/2020, the patient is being seen for follow-up. The patient is a 59-year-old obese male patient with a BMI of 36.2 with known history of obstructive sleep apnea, presented with COVID 19 related pneumonia patient is currently intubated on a mechanical ventilator. The patient has been on a mechanical ventilator since 07/05/2020. 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 During the course of his treatment, the patient developed an acute kidney injury secondary to ATN secondary to "with 19 infection. Urine output was improving and the patient's urine output was in order of 20-25 mL an hour. Due to persistent hyperkalemia and worsening renal function, the patient was started on hemodialysis on 07/10/2020. The potassium level improved post-hemodialysis. The patient also had significant metabolic acidosis and the patient was given bicarb infusion. Electrolytes are being monitored. The patient got dialyzed yesterday and this was his second hemodialysis. Nephrology is on the case. He is currently on Decadron 6 mg IV every 24 hours. His chest x-ray is showing patchy by the pulmonary infiltrates in lower lobes, slightly worsening in the chest x-ray findings on today's evaluation mainly in the peripheries and ET tube is in a good location. The patient remains on a mechanical ventilator assist control mode. He is on Nepro at 60 mL an hour. 07/13/2020, I'm seeing this patient for a follow-up. This is a case of a 59-year-old male patient with Covid 19 related pneumonia and acute kidney injury currently on hemodialysis. Worn-out, the patient is sedated and this morning the patient is currently on propofol running at 6 60 mcg/kg per minute and fentanyl is running at 1 mcg/kg/h and this is the same sedation it was being provided yesterday. The patient is on no paralytics for now. The patient is on a mechanical ventilator, on this morning's evaluation, he is on assist-control at the rate of 28 with a tidal volume of 450 and FiO2 of 50% and PEEP is 10. Blood gases from today showing a pH of 7.37 with a pCO2 of 47 and pO2 of 63. Chest x-ray from today is showing diffuse bilateral pulmonary infiltrates more so in the lower lobes bilaterally. ET tube is in a good location. Comparing this chest x-ray from yesterday, there is no major interval change in the findings are essentially stable. His peak airway pressures 28. His static pressures 24. The patient is is still on Decadron 6 mg IV every 24 hours. D- dimer today's at 13.3, his LDH level is at 1021 and the CRP is at 4.6. Note that his inflammatory markers essentially compatible to yesterday. His echoes at 13.7 with a hemoglobin of 9.2. Platelet count is 112. I took the patient off Agratoban and he was also placed on Eliquis at a dose of 5 mg by mouth twice a day. Noted the patient also is an acute kidney injury. The patient underwent dialysis and the spot he has taken 3 sessions of hemodialysis. He is producing urine output in the order of 20-30 mL an hour. His last session of hemodialysis was yesterday. In terms of his electrolytes, his BUN is at 80 with a creatinine of 3.5 and a sodium of 132 with a potassium of 4.4. He is currently on enteral feeding for dizziness support and is currently on Nepro at the rate of 50 mL an hour. He is currently off Rocephin. He is afebrile. He is requiring low-dose pressors were norepinephrine 30 dose of 0.03 mcg/kg per minute. Otherwise, no other significant events. He is afebrile. Sedation holiday was not done yesterday. IV fluids are running at 0.9 at the rate of 50 mL an hour. 07/14/2020, patient is being seen for follow-up. Sedated and still on a mechanical ventilator, probable resolving. 60 mcg/kg per minute and the patient is also on fentanyl at 1 mcg/kg/h. Adequately sedated. On a mechanical ventilator essentially vent settings being at tidal volume of 450 with an FiO2 of 50% and a PEEP of 10 and a rate of 28. These are essentially the same settings as yesterday. As far as blood gases, pO2 is at 79 with a pCO2 of 45 and a pH is at 7.35. He d-dimer is at 9.42 and the rest of the inflammatory markers show an LDH of 1062 which is stable compared to yesterday and a CRP of 87, slightly elevated compared to yesterday. His CPK is down to 231. His pro calcitonin level was at 0.58 and note that the patient has dialysis-dependent renal failure. As far as his creatinine, his creatinine today is at 3.97 with a mean of 96. He did not receive dialysis yesterday. His urine output is in order of 30-40 mL an hour and the fluid balance has been +1.1 L over the past 24 hours. His chest x-ray from today is showing lower lobe pulmonary infiltrates, essentially stable compared to yesterday. ET tube remains in excellent location. IV fluids are running at 20 cc an hour of normal saline. He is afebrile. He is tolerating his enteral feeding for nutritional support. Norepinephrine infusion which is running at 0.05 mcg/kg per minute. He remains on Decadron 6 mg IV every 24 , platelet count is stable at 121 and 11 avoiding heparin. Patient holiday yesterday was ultimately aborted as the patient became quite agitated after several hours without any meaningful neurological response. 07/15/2020, the patient is being seen for a follow-up. Sedated with propofol running at 60 mcg/kg per minute and fentanyl is at 1 mcg/kg/h and the level of sedation essentially the same as yesterday. Remains on a mechanical ventilator. He is an assist-control mode at the rate of 24 with a tidal volume of 450 and a PEEP of 8 with a FiO2 of 50%. He had a blood gas showing pH of 7.33 with a pCO2 of 46 and pO2 of 73. Chest x-ray is unchanged, probably slightly worse on the left in terms of that the patient is seeing on today's chest x-ray. ET tube remains in a good location. Inflammatory markers from today show a d-dimer of 9 with a LDH level of 1061 and a CRP of 78, comparable to yesterday. His pro calcitonin level was low. He got dialyzed yesterday. I attempted to wean down the PEEP to 6 and this was not successful and the patient desaturated in the P EEP was brought back up to 8 yesterday. Meanwhile, he is afebrile. He is producing urine output in the order of 20-30 mL an hour. He is on normal saline at the rate of 20 mL an hour. He remains on Decadron 6 mg IV to 24 hours. His platelet count is 132 which is essentially stable and improved compared to yesterday. In terms of pressors, the patient is currently on norepinephrine infusion at 0.04 mcg/kg per minute. I will today's condition essentially unchanged and his condition essentially the same as compared to yesterday 07/16/2020, remains on a mechanical ventilator on propofol at the rate of 60 mcg/kg per minute and fentanyl is at 2 mcg/kg/h. He remains off paralytics. At around 6:00 this morning, the patient had some oxygen desaturation. Based on that, I increased his FiO2 up to 60%. Currently is an assist-control mode rate of 28 with a tidal volume of 450 and a PEEP of 8 chest x-ray still showing diffuse bilateral pulmonary infiltrates left more than right. The blood gas shows a pH of 7.31 with a pCO2 of 45 and pO2 of 68. This was on FiO2 of 70%. Inflammatory markers show a d-dimer of 9.9 with a LDH level of 1103 and a CRP level of 62. The patient is on Decadron 6 mg IV every 24 hours. The patient is also on anticoagulation with Eliquis 2.5 mg by mouth twice a day. His platelet counts is 135. The chest x-ray findings are obviously worse and there is some worsening in the evaluation in the right lung compared to yesterday. Note that the patient did not get dialyzed yesterday. Today is a dialysis day for him. He is also on norepinephrine infusion running at 0.08 mcg/kg per minute. There is enough to maintain his blood pressure. He is receiving enteral feeding for discharge support and currently is on Nepro at a rate of 50 mL an hour which is currently at goal. No other significant events. Is adequately sedated for now. 07/17/2020, the patient is being seen for a follow-up. This morning he is on a combination of propofol and fentanyl running at 60 mics for propofol and 1 g for fentanyl. He was given a sedation holiday and she was able to tolerate initiated subsequently he decompensated and became hypoxic and he had to be placed back on sedation. Noted the patient became asynchronous. This morning, he is back on a mechanical ventilator mode at the rate of 28 with a tidal volume of 450 and her FiO2 is at 60% with a PEEP of 8. He underwent dialysis yesterday with a total of 2 liters of ultrafiltration. Note that he was able to tolerated dialysis without any major issues. He is on a minimal dose of norepinephrine infusion running at 0.06 mcg/kg per minute for blood pressure control. On today's evaluation, peak air pressures around 27. The blood gases from today shows a pH of 7.29 with a pCO2 of 40 and pO2 of 99 and this was on FiO2 of 60%. As mentioned, his PEEP is at 8. Chest x-ray still showing diffuse breath and pulmonary infiltrates unchanged without any major interval improvement or worsening. White cell count is at 50 with a hemoglobin of 8.2. Creatinine is at 3.4 and a urine output is in order of 30 mL an hour. No plans for hemodialysis today. He is receiving enteral feeding for nutritional support with Nepro at the rate of 50 mL an hour. He is stooling. Still sedation dependent. Unable to wean him off sedation because of a 6 and mean oxygen desaturations. I have approach the and the family with a possibility of ainsertion of a tracheostomy tube and a PEG tube for prolonged need of mechanical ventilation and failure for weaning. The patient has been intubated since 07/05/2020. The inflammatory markers from today shows an LDH level of 889, CRP is at 6 and the d-dimer is at 6.05. The patient has palpable pulses in his left upper extremity. She of his fingers are necrotic and the tip including the index, the platelet counts are stable and the patient is currently on Eliq uis 2.5 mg by mouth twice a day. Or 2020, the patient remains sedated with a combination of propofol and fentanyl running at 50 mcg/kg per minute for propofol and 1 mcg/kg per hour for fentanyl. He is sedated. In fact is deeply sedated. We are going to proceed with a sedation holiday on this patient today. He remains on a mechanical ventilator. He remains on a assist-control rate of 28, tidal volume of 450, FiO2 of 50% with a PEEP of 8. Attempts to wean the PEEP further failed and the patient became more hypoxic. As such, the patient is living At 8. This patient is a 7.26 with a pCO2 of 48 and pO2 of 71 today's blood gas. His chest x-ray showing stable bilateral pulmonary infiltrates essentially involving the lower lobes. ET tube is in a good location. Note that the patient is producing urine output in the order of 8200 mL an hour. His net fluid balance over the past 24 hours has been -83 mL. He has had a with a positive fluid balance for today. The findings on the case. The intent of the dialysis 3 times a week. His last dialysis was done on Sunday which is 2 days ago. His creatinine is up to 3.7 with a BUN of 84. Rest of the electrolytes are normal. Affect is running a lower sodium level of 1:30 with a potassium level of 4.1. Serum bicarbs at 20. In terms of his COVID-19 related pneumonia, the patient has a LDH level of 855, CRP level of 5.2 and his most recent d-dimer is at 5.4. He remains on steroids and he is on Decadron 6 mg IV every 24 hours. He did have a component of hit syndrome. This was related to heparin. He did receive Agratroban was ultimately discontinued once the patient's stated count picked up and it's platelet count is currently at 129. He does have necrotic fingers in his left upper extremity. Adequate pulses in the radial. No new vascular insults noted on today's examination. He is receiving enteral feeding for nutritional support and is currently on Nepro at the rate of 10 mL an hour. He is stooling. He is on Rocephin for strep in history of the blood cultures on 2 separate occasions. Otherwise, the blood cultures positive for coagulase-negative staph. Patient was reevaluated today on 07/19/2020, remains intubated and mechanically ventilated, he is off sedation and he is not showing any signs of neurological not responding to any stimuli. Patient is on assist control rate of 24th of volume 450 FiO2 50% and PEEP of 6. ABG showed a pO2 of 81 pCO2 41 pH of 7.31 patient is on enteral feeding. And he may undergo dialysis. We plan to have a tracheostomy and PEG tube placement in this patient, and he is basically a failure to wean. Today the sedation is placed on hold. Chest x-ray continues to show bilateral pulmonary infiltrates involving lower lobes. Endotracheal tube is in the proper position. Patient is making good urine, however his renal functioning seems to be getting worse. Electrolytes are normal. BUN is 91 creatinine 4.51 LDH is 893 liver enzymes are borderline elevated, C-reactive protein is 4.2 d-dimer 6.68. WBC count is 9.1 hemoglobin is 8.9 On 07/20/2020 patient seen in follow-up in intensive care unit, he was given daily traction of sedation yesterday, and his sedation was on hold for several hours and the patient never woke up over open his eyes or follow any commands, and as the day went on he started breathing fast, started desaturated and get agitated and was he was placed back on sedation on which she remains today, currently on Diprivan at 40 mics per kilo per minute, and fentanyl infusion at 1 mics per kilo per minute, and levo fed has been discontinued, he is on assist- control mode of ventilation with assist control rate of 24, tidal volumes of 4 50, FiO2 of 50% and PEEP of 6, this morning's blood gas shows pO2 of 92, pCO2 42, and pH is 7.32. He is in sinus mechanism, slightly tachycardic, his tube feedings are currently on hold in case of possibility of tracheostomy and PEG tube insertion however were still awaiting a response from his family on the decision in regards to proceeding with trach and PEG placement, today he is receiving hemodialysis treatment, and a 3 L in fluid was removed today. In terms of urine output he has been making urine in the order of 50-70 ML per hour, he remains on Lasix 80 mg twice daily, he remains on Rocephin for evidence of a beta-hemolytic strep in the sputum cultures, his follow-up sputum culture only showed Armida. History of resting comfortably in bed, he remains on IV dexamethasone 6 mg daily, has been off the levofed. Breasts labs have been reviewed, his white blood cell count is 8.1, hemoglobin is 8.1, his platelet count is 126, d-dimer is 13.3, sodium is 133, potassium 3.7, his renal function is relatively stable, with BUN of 82, and creatinine 4.51. These LDH is 792, CRP is 48. His had no acute events overnight, we spoke to his daughter yesterday in regards to patient's condition, and to discuss tracheostomy and PEG tube insertion, awaiting response from the family on their decision and the daughter indicated that patient had poor quality of life to start with and the were not sure if the workup and consent to the trach and PEG On 07/21/2000 patient seen in follow-up in the intensive care unit, yesterday he tolerated 11 hours of sedation holiday, and he was starting to follow simple commands, however is that day went on he was becoming more agitated and tachypneic, and he was placed back on sedation, currently on Diprivan at 40 mics per kilo per minute, and 0.9 at KVO, he remains intubated, on assist control mode of ventilation, with a rate of 24, Tylox 450, FiO2 of 50% and PEEP of 6, this morning's blood gases show pO2 133, pCO2 of 41, and pH is 7.38. Patient is resting comfortably, appears to be in no acute distress, he is not on any vasoactive drugs, no vasopressors, she is in sinus rhythm sinus tach with a rate of 90-106 BPM, hemodialysis treatment this morning, and attended have liters of fluid was taken off, his vital signs have been stable overnight, no fever or chills, lung sounds are diminished. She also remains on IV Lasix 80 mg twice da waylon, patient is producing urine in the order of 30-60 ML per hour, and she is in -4.1 L over the last 24 hours with additional -2.49 fluid balance since midnight last night. Chest x-ray shows interval improvement in bilateral airspace infiltrates particularly within the right upper lobe. Today's labs have been reviewed, showing white blood cell count 7.1, hemoglobin of 7.4, platelet count is 120, sodium is 130, potassium is 3.2, chloride is 104, CO2 of 23, BUN of 75 and creatinine of 4.01. Patient remains on Rocephin for beta-hemolytic strep in the sputum, repeat culture of the sputum showed only Armida. He is tolerating tube feedings which are on hold for tracheostomy and PEG tube placement which is scheduled for today. On 07/22/2020 patient seen in follow-up in intensive care unit, he remains sedated and trach to the ventilator, on assist-control mode of ventilation with a rate of 24, her lungs were 50, FiO2 50% and PEEP of 6, his blood gas shows pO2 of 169, pCO2 40, pH of 7.36, patient is currently on Diprivan at 55 mics per kilo per minute, he is on 0.9 normal saline at 10 ML per hour, Levophed that he is at 0.02 mics per kilo per minute. Patient is having hemodialysis treatment right now. Patient received tracheostomy and PEG tube yesterday. His hemodialysis access was switched to right subclavian approach. He still has a central line in his groin which will need to be switched to a PICC line. Today's chest x-ray showed bilateral multifocal and confluent opacities consistent with COVID-19 infection with no significant interval change. Vital signs have been stable, his sat 98% on the above mentioned settings, requiring small dose of Levafed. 2 feedings will be started sometime today, he is on Rocephin for evidence of 5 beta-hemolytic strep in the sputum, follow-up sputum culture only showed Armida albicans. She had no acute events overnight. He re leonila on Decadron 6 mg daily, he is Eliquis will be started tonight if it's okay with surgery. No other acute events overnight, and -2.4 L fluid balance over the last 24 hours. He does remains generally swollen. On 07/23/2020 patient seen in follow-up, in the intensive care unit, patient received tracheostomy and PEG tube insertion on 07/21/2020, he remains trached to the ventilator and is currently on assist control mode of ventilation with a rate of 24, tacrolimus 450, FiO2 45% and PEEP of 5, this morning's blood gas shows pO2 of 149, pCO2 of 43, and pH of 7.39, he was given a sedation holiday yesterday, however he did not wake up or start following commands, neurology completed a brain CT which showed decreased attenuation within the high right frontal lobe without cortical increased attenuation which could reflect petechial hemorrhage, patient is currently not on any anticoagulation, is Eliquis has been on hold since 07/19/2020 at 11:00 in the morning. His hemoglobin today 7.4, his platelet count is 115, his d-dimer is currently is 8.18 on this morning's labs. Patient is not on any aspirin, or Plavix or any other anticoagulants. Patient was resedated he is currently on 35 mics per kilo per minute of Diprivan, and 0.9 and is infusing at KVO, no other infusions. Hemodynamically he has remained stable, he is in sinus rhythm sinus tachycardia on the monitor, this morning his PEG tube became plugged when the crushed oral medications were being instilled through the PEG tube, surgery was notified, and the PEG tube was removed, NG tube will be inserted, however no tube feedings or oral medications are to be put down the NG tube at this point. Patient remains on Rocephin for evidence of beta-hemolytic strep in the sputum, yesterday his central line was discontinued and the tip was sent for culture and the culture is pending at this time, however overnight has been no fever, his vital signs have remained stable. He had hemodialysis on 07/21/2020 with removal of 2.5 L in fluids. Today's labs show sodium of 136, potassium 3.5, chloride is 104, CO2 is 22, BUN 54, and creatinine is 2.6, his renal profile is improving, and patient remains on IV Lasix 80 mg twice daily, he is producing urine in the order of 35-60 ML per hour. No other acute events overnight, neurology is following, and is to comment on the findings of the CT of the brain. Today's chest x-ray shows continued diffuse bilateral groundglass airspace disease/pulmonary edema, with continue small effusions with adjacent atelectasis. LDH is down to 640, and CRP is 5.6 On 07/24/2020 patient seen in follow-up in the intensive care unit, he remains trached to the ventilator on assist control mode of ventilation with a rate of 24, tidal is 450, FiO2 of 45% and PEEP of 5, this morning's blood gas shows pO2 of 150; pCO2 40, pH of 7.4, and FiO2 was dropped down to 40% based on the above mentioned blood gases, IV fluids are 0.9 normal saline at a rate of 10 ML per hour, and TPN is infusing at 30 ML per hour, not on any vasopressor support, and patient has been off sedation since yesterday morning, were told by the nursing staff that at times he was noted to be attempting to wiggle toes on command. Remains quite lethargic right now, she is not opening eyes to voice, he is not following commands, he is very weak. Chest x-ray today shows diffuse bilateral infiltrates. Tracheostomy hemodialysis catheter appear to be in appropriate positions, NG tube has been inserted yesterday, and peg tube was discontinued, and surgeries plan on replacing the PEG tube on Sunday. Neurology is following, patient has no signs of obvious seizure activity, he does have cough and a gag reflex. But remains very obtunded, today's labs have been reviewed, showing white blood cell count of 4.1, hemoglobin of 7.4, electrolytes were within normal limits, BUN is 68, and creatinine is 3.54. Patient remains on IV Lasix 80 mg twice daily, is in -856 over the last 24 hours, he is tolerating tube feedings, no diarrhea noted. Yesterday his d-dimer came back at 8.18. Patient remains off Eliquis, and he received 300 mg of rectal aspirin per neurology. His most recent brain CT showed previously noted area of subarachnoid hemorrhage associated with abnormal hypodensity posterior laterally in the right frontal lobe was again noted, not significantly changed. Neurology thinks patient has suffered acute ischemic stroke with a small right frontal region with mild petechial hemorrhage in the cortical ribbon On 07/26/2020 patient seen in follow-up in the intensive care unit, he remains trached to the ventilator, assist control mode of ventilation with a rate of 20 with tidal volumes were 450, FiO2 of 40% and PEEP of 5, displays blood gas shows pO2 of 122, pCO2 of 43, and pH of 7.42. He is 1.9 normal seen at 10 mL an hour, TPN is a 55 ML per hour, Cleviprex is a 7 mg per hour. He has been off Diprivan and for several days now, he just has a morphine sulfate for discomfort on as needed basis, he is waking up to touch and sometimes he follows simple commands, but he is extremely weak and unable to squeeze with his hands on command. His tube feedings have been on hold and he is supposed to have a PEG tube reinserted today, NG tube is in place to low intermittent suction a total of 450 ML of gastric drainage in the last 24 hours, urine output has been in the order of 100-200 ML per hour. He remains on IV Lasix at 80 mg every 12 hours, he is maintaining negative fluid balance of 1.5 L over the last 24 hours. Has been afebrile. Today's chest x-ray shows persistent but improving infiltrates throughout both lung palafox. Today's labs show white blood cell count of 1.1, hemoglobin of 8.4, d-dimer is 11.69, patient has remained off anticoagulation for the PEG tube reinsertion today, sodium is 142, potassium is 4.2, chloride is 102, BUN is 90, creatinine is 3.54, AST is 72, ALT is 82. He is on IV Rocephin for evidence of beta-hemolytic strep in the sputum, and central line catheter tip was positive for Armida albicans. Patient has had no fever or chills. Partially patient has suffered an acute stroke with small subarachnoid hemorrhage, cardiology has been consulted for possibility if AGNIESZKA, which cardiology felt was not needed at this time. No other acute events overnight, no fever or chills, patient has not been able to receive his oral medications for high blood pressure, and has required Cleviprex. On 07/27/2020 patient seen in follow-up in intensive care unit, patient is trached to the ventilator with assist control mode of ventilation with a rate of 24, tidal volume was 450, FiO2 30% and PEEP of 5, no blood gases were done today, overnight he developed a fever with a temp of 101.9F, and today's blood work is down trending white count, neutropenia white blood cell count is 0.6, hemoglobin is 8.2, platelet count is 148, and there is a suspicion of p ossibility of fungal infection, and patient was started on Eraxis yesterday. New blood cultures and urine cultures have been sent, BMP shows a sodium of 140, potassium is 5.2, BUN of 103, and creatinine of 3.66, his inflammatory markers have been reviewed, and LDH is now within normal limits at 559, and CRP is 14.9. His central line catheter tip was positive for Armida albicans, his sputum back on 07/08/2020 was positive for beta-hemolytic strep. Urine culture is currently pending, ID service is following. Patient had a new PEG tube placed on 07/26/2020 he continues on TPN for nutritional support, anticipate restarting his tube feedings this afternoon if cleared by surgery. On 07/28/2020 patient seen in follow-up in the intensive care unit. Remains trached to the ventilator, on assist control mode of ventilation with a rate of 24, tacrolimus 450, FiO2 30%, and PEEP of 5, no new blood gases today. Today's chest x-ray showing stable portable chest, and no change in bibasilar opacities. Patient has remained off sedation, and he started to follow some simple commands, however his severe generally weak, he is unable to squeeze with his hands, he opens eyes to voice, withdraws from painful stimuli. today's labs reviewed showing white blood cell, 0.2, hemoglobin is 6.5, platelet count is 108, patient is pancytopenic, 1 unit of blood will be transfused today, sodium is 144, potassium is 4.4, chloride is 108, BUN of 119, creatinine is 3.9. No obvious source of bleeding at this time. Cultures have been sent, patient is currently on Eraxis for Armida albicans on the central line catheter tip, sputum. Patient remains on Rocephin for streptococcal pneumonia. He was febr ile in the last 24 hours with a T-max of 101.3F. He continues on IV Lasix, he is making urine in order of 100-120 ML per hour. Is on Nepro for nutritional support at 36 with a goal of 36 On 07/29/2020 patient seen in follow-up in the intensive care unit. Patient remains trached to the ventilator, with assist control mode of ventilation rate of 24, Tylenol is 450, FiO2 of 30%, and PEEP of 5. Patient's blood gas shows pO2 of 94, pCO2 of 39, and pH of 7.43, he is on 0.9 normal saline at 10 in the per hour, no other drips, and he is receiving nutritional support in the form of Nepro at 36 with a goal of 36 and 60 mL of water flushes every 4 hours per nephrology. He remains lethargic, generally weak. Per nursing staff patient is at times squeezing her finger on command. Brain CT was repeated showing evolving subacute hemorrhagic infarct in the right frontal lobe with no significant interval change, no new acute intracranial hemorrhage or midline shift. We restarted the patient on prophylactic anticoagulation in the form of Lovenox yesterday, today's labs have been reviewed, d-dimer is 3.83, white count is 0.2, hemoglobin is 7.0, platelet count is 142, sodium is 148, potassium is 3.8, and patient's renal function has worsened, and the Lasix is now on hold, free water flushes were increased by nephrology. Patient continues on Eraxis, and urine culture from 07/26/2020 showed Armida albicans, repeat urine culture has been sent, blood culture from 07/26/2020 showed no growth, final culture is pending. he has been afebrile. Rocephin has been discontinued, infectious dise ase has been consulted Objective - Vital Signs Vital signs: Vital Signs Temp 98.8 F 07/29/20 08:00 Pulse 128 H 07/29/20 11:00 Resp 27 H 07/29/20 11:00 BP 165/101 07/29/20 11:00 Pulse Ox 96 07/29/20 11:00 Intake & Output 07/28/20 07/29/20 07/29/20 18:59 06:59 18:59 Intake Total 774 528 324 Output Total 985 940 450 Balance -211 -412 -126 Weight 105.9 kg Intake: IV 170 60 20 0.9 Normal Saline 70 60 20 cefTRIAXone 1 gm In 100 Sodium Chloride 0.9% 50 ml @ 100 mls/hr IVPB Q24HR [facility] Rx#:[id number] Intake, IV Titration 150 100 Amount Anidulafungin 100 mg In 100 100 Sodium Chloride 0.9% 100 ml @ 84 mls/hr IVPB DAILY [facility] Rx#:[id number] Desmopressin Acetate 28 50 mcg In Sodium Chloride 0. 9% 50 ml @ 200 mls/hr IVPB ONCE ONE Rx#: [id number] Tube Feeding 144 468 144 Blood Product 310 Rc As-1 Unit 310 [id number] Other 60 Output: Urine 985 940 450 Other: Voiding Method Indwelling Catheter Indwelling Catheter ABP, PAP, CO, CI - Last Documented Arterial Blood Pressure 118/64 - Exam GENERAL EXAM: Sedated, morbidly obese 51-year-old white male, trached to the ventilator, on assist-control mode of ventilation with a 40% PEEP of 5, comfortable in no apparent distress. HEAD: Normocephalic/atraumatic. EYES: Normal reaction of pupils, equal size. Conjunctiva pink, sclera white. NOSE: Clear with pink turbinates. THROAT: No erythema or exudates. NECK: No masses, no JVD, no thyroid enlargement, no adenopathy. Midline tracheostomy connected to the ventilator CHEST: No chest wall deformity. Symmetrical expansion. Right subclavian permacath in place and patient is receiving hemodialysis LUNGS: Equal air entry with no crackles, wheeze, rhonchi or dullness. CVS: Regular rate and rhythm, normal S1 and S2, no gallops, no murmurs, no rubs ABDOMEN: Soft, nontender. No hepatosplenomegaly, normal bowel sounds, no guarding or rigidity. PEG tube in place EXTREMITIES: No clubbing, generalized edema no cyanosis, 2+ pulses and upper and lower extremities. Patient has black fingertips on his left hand MUSCULOSKELETAL: Muscle strength and tone normal. Right groin temporary hemodialysis catheter in place SPINE: No scoliosis or deformity SKIN: No rashes CENTRAL NERVOUS SYSTEM: Sedated, intubated. No focal deficits, tone is normal in all 4 extremities. - Labs CBC & Chem 7: 07/29/20 05:00 07/29/20 05:00 Labs: Abnormal Lab Results - Last 24 Hours (Table) 07/28/20 07/28/20 07/28/20 Range/Units 05:30 10:32 11:45 WBC (3.8-10.6) k/uL RBC (4.30-5.90) m/uL Hgb (13.0-17.5) gm/dL Hct (39.0-53.0) % RDW (11.5-15.5) % Plt Count (150-450) k/uL Retic Count (0.5-2.0) % PT 12.2 H (9.0-12.0) sec INR 1.2 H (<1.2) Fibrinogen 718 H (200-500) mg/dL D-Dimer 6.99 H (<0.60) mg/L FEU ABG HCO3 (21-25) mmol/L ABG Total CO2 (19-24) mmol/L ABG O2 Saturation (94-97) % Sodium (137-145) mmol/L Chloride (98-107) mmol/L BUN (9-20) mg/dL Creatinine (0.66-1.25) mg/dL Glucose (74-99) mg/dL POC Glucose (mg/dL) (75-99) mg/dL Ferritin 967.1 H (22.0-322.0) ng/mL Urine Protein (Negative) Urine Blood (Negative) Ur Leukocyte Esterase (Negative) Urine RBC (0-5) /hpf Urine WBC (0-5) /hpf Amorphous Sediment (None) /hpf Urine Bacteria (None) /hpf Hyaline Casts (0-2) /lpf Urine Mucus (None) /hpf Crossmatch See Detail 07/28/20 07/28/20 07/28/20 Range/Units 11:49 11:55 17:00 WBC 0.2 L* (3.8-10.6) k/uL RBC 2.47 L (4.30-5.90) m/uL Hgb 7.3 L (13.0-17.5) gm/dL Hct 23.3 L (39.0-53.0) % RDW 17.1 H (11.5-15.5) % Plt Count 133 L (150-450) k/uL Retic Count 4.6 H (0.5-2.0) % PT (9.0-12.0) sec INR (<1.2) Fibrinogen (200-500) mg/dL D-Dimer (<0.60) mg/L FEU ABG HCO3 (21-25) mmol/L ABG Total CO2 (19-24) mmol/L ABG O2 Saturation (94-97) % Sodium (137-145) mmol/L Chloride (98-107) mmol/L BUN (9-20) mg/dL Creatinine (0.66-1.25) mg/dL Glucose (74-99) mg/dL POC Glucose (mg/dL) 132 H (75-99) mg/dL Ferritin (22.0-322.0) ng/mL Urine Protein Trace H (Negative) Urine Blood Small H (Negative) Ur Leukocyte Esterase Trace H (Negative) Urine RBC 11 H (0-5) /hpf Urine WBC 25 H (0-5) /hpf Amorphous Sediment Occasional H (None) /hpf Urine Bacteria Occasional H (None) /hpf Hyaline Casts 5 H (0-2) /lpf Urine Mucus Occasional H (None) /hpf Crossmatch 07/28/20 07/28/20 07/29/20 Range/Units 17:53 23:51 01:00 WBC 0.3 L* (3.8-10.6) k/uL RBC 2.40 L (4.30-5.90) m/uL Hgb 7.2 L (13.0-17.5) gm/dL Hct 22.7 L (39.0-53.0) % RDW 17.1 H (11.5-15.5) % Plt Count 141 L (150-450) k/uL Retic Count (0.5-2.0) % PT (9.0-12.0) sec INR (<1.2) Fibrinogen (200-500) mg/dL D-Dimer (<0.60) mg/L FEU ABG HCO3 (21-25) mmol/L ABG Total CO2 (19-24) mmol/L ABG O2 Saturation (94-97) % Sodium (137-145) mmol/L Chloride (98-107) mmol/L BUN (9-20) mg/dL Creatinine (0.66-1.25) mg/dL Glucose (74-99) mg/dL POC Glucose (mg/dL) 133 H 132 H (75-99) mg/dL Ferritin (22.0-322.0) ng/mL Urine Protein (Negative) Urine Blood (Negative) Ur Leukocyte Esterase (Negative) Urine RBC (0-5) /hpf Urine WBC (0-5) /hpf Amorphous Sediment (None) /hpf Urine Bacteria (None) /hpf Hyaline Casts (0-2) /lpf Urine Mucus (None) /hpf Crossmatch 07/29/20 07/29/20 07/29/20 Range/Units 05:00 05:00 05:00 WBC 0.2 L* (3.8-10.6) k/uL RBC 2.38 L (4.30-5.90) m/uL Hgb 7.0 L (13.0-17.5) gm/dL Hct 22.2 L (39.0-53.0) % RDW 16.9 H (11.5-15.5) % Plt Count 142 L (150-450) k/uL Retic Count 4.1 H (0.5-2.0) % PT (9.0-12.0) sec INR (<1.2) Fibrinogen (200-500) mg/dL D-Dimer 3.83 H (<0.60) mg/L FEU ABG HCO3 (21-25) mmol/L ABG Total CO2 (19-24) mmol/L ABG O2 Saturation (94-97) % Sodium 148 H (137-145) mmol/L Chloride 109 H (98-107) mmol/L BUN 134 H* (9-20) mg/dL Creatinine 4.28 H (0.66-1.25) mg/dL Glucose 116 H (74-99) mg/dL POC Glucose (mg/dL) (75-99) mg/dL Ferritin (22.0-322.0) ng/mL Urine Protein (Negative) Urine Blood (Negative) Ur Leukocyte Esterase (Negative) Urine RBC (0-5) /hpf Urine WBC (0-5) /hpf Amorphous Sediment (None) /hpf Urine Bacteria (None) /hpf Hyaline Casts (0-2) /lpf Urine Mucus (None) /hpf Crossmatch 07/29/20 07/29/20 07/29/20 Range/Units 05:08 05:29 11:07 WBC (3.8-10.6) k/uL RBC (4.30-5.90) m/uL Hgb (13.0-17.5) gm/dL Hct (39.0-53.0) % RDW (11.5-15.5) % Plt Count (150-450) k/uL Retic Count (0.5-2.0) % PT (9.0-12.0) sec INR (<1.2) Fibrinogen (200-500) mg/dL D-Dimer (<0.60) mg/L FEU ABG HCO3 26 H (21-25) mmol/L ABG Total CO2 27 H (19-24) mmol/L ABG O2 Saturation 99.0 H (94-97) % Sodium (137-145) mmol/L Chloride (98-107) mmol/L BUN (9-20) mg/dL Creatinine (0.66-1.25) mg/dL Glucose (74-99) mg/dL POC Glucose (mg/dL) 116 H 129 H (75-99) mg/dL Ferritin (22.0-322.0) ng/mL Urine Protein (Negative) Urine Blood (Negative) Ur Leukocyte Esterase (Negative) Urine RBC (0-5) /hpf Urine WBC (0-5) /hpf Amorphous Sediment (None) /hpf Urine Bacteria (None) /hpf Hyaline Casts (0-2) /lpf Urine Mucus (None) /hpf Crossmatch Microbiology - Last 24 Hours (Table) 07/26/20 22:06 Blood Culture - Preliminary Blood No Growth after 48 hours 07/28/20 11:55 Urine Culture - Preliminary Urine,Voided Assessment and Plan Plan: Assessment: #1. Acute hypoxic respiratory failure secondary to COVID-19 pneumonia. Patient received toci and convalescent plasma., Patient is status post tracheostomy and PEG tube placement on 07/21/2020. #2. Neutropenia, rule out possibility of fungal infection, cover the patient with Eraxis #3. Acute ischemic stroke, in right frontal region with mild petechial hemorrhage in the cortical ribbon #4. Acute kidney injury requiring dialysis, worsening #5. Altered mental status, related to toxic metabolic encephalopathy, severe, related to multiple organ dysfunction #6. Possible petechial hemorrhage within the right frontal lobe, seen on the CT of the brain, neurology is following #7. Severe metabolic acidosis, improved and resolved after dialysis. #8. Hyperkalemia secondary to above, improved with hemodialysis #9. Benign essential hypertension. #10. Superficial vein thromboses and left cephalic vein and left basilic vein #11. Heparin-induced thrombocytopenia, patient was on Argatroban and Eliquis which are on hold right now #12. History of obstructive sleep apnea syndrome #13. Morbid obesity #14. Increased d-dimer related to COVID-19, patient was started on Eliquis which will be restarted after his surgical procedures #15. Plugged PEG tube, the PEG tube was discontinued today at the bedside on 07/23/2020, new PEG tube was inserted on 07/26/2020 #16. Pancytopenia, likely related to sepsis, we'll consult hematology Plan: We'll try on the pressure-support trial today, with a pressure support of 8 and CPAP of 5 Antibiotics per ID service recommendations Patient has been afebrile, hemodynamically stable Lasix on hold Fluids and free water flushes per nephrology Continue Lovenox at prophylactic dose Continue following cultures Social work consultation for LTAC placement From pulmonary/critical care perspective patient could be considered for discharge to LTAC today or tomorrow I performed a history & physical examination of the patient and discussed their management with my nurse practitioner, Nelia Conley. I reviewed the nurse practitioner's note and agree with the documented findings and plan of care. Lung sounds are positive for diminished breath sounds The findings and the impression was discussed with the patient. I attest to the documentation by the nurse practitioner. Time with Patient: Greater than 30
--- NOTE | 2020-07-29 13:03 | P.PN ---
Subjective Progress Note Date: 07/29/20 Principal diagnosis: Pancytopenia Neutropenia with sepsis, vented in the care of ICU. WIll begin Zarxio but will need daily monitoring of cbc with differential and will discontinue once normalizes. Hemoglobin 7 today and platelets are stable 140K Objective - Vital Signs Vital signs: Vital Signs Temp 98.8 F 07/29/20 08:00 Pulse 128 H 07/29/20 11:00 Resp 27 H 07/29/20 11:00 BP 165/101 07/29/20 11:00 Pulse Ox 96 07/29/20 11:00 Intake & Output 07/28/20 07/29/20 07/29/20 18:59 06:59 18:59 Intake Total 774 528 324 Output Total 985 940 450 Balance -211 -412 -126 Weight 105.9 kg Intake: IV 170 60 20 0.9 Normal Saline 70 60 20 cefTRIAXone 1 gm In 100 Sodium Chloride 0.9% 50 ml @ 100 mls/hr IVPB Q24HR [facility] Rx#:[id number] Intake, IV Titration 150 100 Amount Anidulafungin 100 mg In 100 100 Sodium Chloride 0.9% 100 ml @ 84 mls/hr IVPB DAILY [facility] Rx#:[id number] Desmopressin Acetate 28 50 mcg In Sodium Chloride 0. 9% 50 ml @ 200 mls/hr IVPB ONCE ONE Rx#: [id number] Tube Feeding 144 468 144 Blood Product 310 Rc As-1 Unit 310 [id number] Other 60 Output: Urine 985 940 450 Other: Voiding Method Indwelling Catheter Indwelling Catheter ABP, PAP, CO, CI - Last Documented Arterial Blood Pressure 118/64 - Exam Trach to ventilator Critically ill Multiple areas of eccymosis/lines Catheter with urine Peg tube CDI Ext: Edema - Labs CBC & Chem 7: 07/29/20 05:00 07/29/20 05:00 Labs: Abnormal Lab Results - Last 24 Hours (Table) 07/28/20 07/28/20 07/28/20 Range/Units 10:32 11:55 17:00 WBC 0.2 L* (3.8-10.6) k/uL RBC 2.47 L (4.30-5.90) m/uL Hgb 7.3 L (13.0-17.5) gm/dL Hct 23.3 L (39.0-53.0) % RDW 17.1 H (11.5-15.5) % Plt Count 133 L (150-450) k/uL Retic Count 4.6 H (0.5-2.0) % D-Dimer (<0.60) mg/L FEU ABG HCO3 (21-25) mmol/L ABG Total CO2 (19-24) mmol/L ABG O2 Saturation (94-97) % Sodium (137-145) mmol/L Chloride (98-107) mmol/L BUN (9-20) mg/dL Creatinine (0.66-1.25) mg/dL Glucose (74-99) mg/dL POC Glucose (mg/dL) (75-99) mg/dL Urine Protein Trace H (Negative) Urine Blood Small H (Negative) Ur Leukocyte Esterase Trace H (Negative) Urine RBC 11 H (0-5) /hpf Urine WBC 25 H (0-5) /hpf Amorphous Sediment Occasional H (None) /hpf Urine Bacteria Occasional H (None) /hpf Hyaline Casts 5 H (0-2) /lpf Urine Mucus Occasional H (None) /hpf Crossmatch See Detail 07/28/20 07/28/20 07/29/20 Range/Units 17:53 23:51 01:00 WBC 0.3 L* (3.8-10.6) k/uL RBC 2.40 L (4.30-5.90) m/uL Hgb 7.2 L (13.0-17.5) gm/dL Hct 22.7 L (39.0-53.0) % RDW 17.1 H (11.5-15.5) % Plt Count 141 L (150-450) k/uL Retic Count (0.5-2.0) % D-Dimer (<0.60) mg/L FEU ABG HCO3 (21-25) mmol/L ABG Total CO2 (19-24) mmol/L ABG O2 Saturation (94-97) % Sodium (137-145) mmol/L Chloride (98-107) mmol/L BUN (9-20) mg/dL Creatinine (0.66-1.25) mg/dL Glucose (74-99) mg/dL POC Glucose (mg/dL) 133 H 132 H (75-99) mg/dL Urine Protein (Negative) Urine Blood (Negative) Ur Leukocyte Esterase (Negative) Urine RBC (0-5) /hpf Urine WBC (0-5) /hpf Amorphous Sediment (None) /hpf Urine Bacteria (None) /hpf Hyaline Casts (0-2) /lpf Urine Mucus (None) /hpf Crossmatch 07/29/20 07/29/20 07/29/20 Range/Units 05:00 05:00 05:00 WBC 0.2 L* (3.8-10.6) k/uL RBC 2.38 L (4.30-5.90) m/uL Hgb 7.0 L (13.0-17.5) gm/dL Hct 22.2 L (39.0-53.0) % RDW 16.9 H (11.5-15.5) % Plt Count 142 L (150-450) k/uL Retic Count 4.1 H (0.5-2.0) % D-Dimer 3.83 H (<0.60) mg/L FEU ABG HCO3 (21-25) mmol/L ABG Total CO2 (19-24) mmol/L ABG O2 Saturation (94-97) % Sodium 148 H (137-145) mmol/L Chloride 109 H (98-107) mmol/L BUN 134 H* (9-20) mg/dL Creatinine 4.28 H (0.66-1.25) mg/dL Glucose 116 H (74-99) mg/dL POC Glucose (mg/dL) (75-99) mg/dL Urine Protein (Negative) Urine Blood (Negative) Ur Leukocyte Esterase (Negative) Urine RBC (0-5) /hpf Urine WBC (0-5) /hpf Amorphous Sediment (None) /hpf Urine Bacteria (None) /hpf Hyaline Casts (0-2) /lpf Urine Mucus (None) /hpf Crossmatch 07/29/20 07/29/20 07/29/20 Range/Units 05:08 05:29 11:07 WBC (3.8-10.6) k/uL RBC (4.30-5.90) m/uL Hgb (13.0-17.5) gm/dL Hct (39.0-53.0) % RDW (11.5-15.5) % Plt Count (150-450) k/uL Retic Count (0.5-2.0) % D-Dimer (<0.60) mg/L FEU ABG HCO3 26 H (21-25) mmol/L ABG Total CO2 27 H (19-24) mmol/L ABG O2 Saturation 99.0 H (94-97) % Sodium (137-145) mmol/L Chloride (98-107) mmol/L BUN (9-20) mg/dL Creatinine (0.66-1.25) mg/dL Glucose (74-99) mg/dL POC Glucose (mg/dL) 116 H 129 H (75-99) mg/dL Urine Protein (Negative) Urine Blood (Negative) Ur Leukocyte Esterase (Negative) Urine RBC (0-5) /hpf Urine WBC (0-5) /hpf Amorphous Sediment (None) /hpf Urine Bacteria (None) /hpf Hyaline Casts (0-2) /lpf Urine Mucus (None) /hpf Crossmatch Microbiology - Last 24 Hours (Table) 07/26/20 22:06 Blood Culture - Preliminary Blood No Growth after 48 hours 07/28/20 11:55 Urine Culture - Preliminary Urine,Voided Assessment and Plan (1) Pancytopenia Current Visit: Yes Status: Acute Code(s): D61.818 - OTHER PANCYTOPENIA SNOMED Code(s): 375991379 (2) Pneumonia due to COVID-19 virus Current Visit: Yes Status: Acute Code(s): U07.1 - COVID-19; J12.82 - Pneumonia due to coronavirus disease 2019 SNOMED Code(s): 886660714974637816 Plan: Assessment and Recommendations: Pancytopenia: - Secondary to chronic Illness and bone marrow suppression - Monitor for DIC in acute illness/recurrent infections - Transfuse PRBC hemoglobin less than 7, platelets less than 10/15K Leukopenia:[employer], Will begin growth factor with close monitoring of CBC with differential Continue on anti-coagulation if no visible bleeding/platelets greater than 50K COVID Pneumonia and Complications: - Per the care of ICU. Physician Attest: I have completed the full history and physical and agree with above dictation, dictated as a scribe.
--- NOTE | 2020-07-29 15:15 | P.PN ---
Subjective Progress Note Date: 07/29/20 CHIEF COMPLAINT: Shortness of breath HISTORY OF PRESENT ILLNESS: Patient currently in the ICU and on mechanical ventilation. He has been on the vent since 07/05/2020. He has acute hypoxic respiratory failure due to COVID-19 pneumonia. Patient is status post tracheostomy and PEG tube placement on 07/21/20. However, patient's PEG tube did get plugged. He is now status post PEG tube replacement on 07/26/2020. He is tolerating tube feedings. Nursing staff did report some purulent drainage from tracheostomy site and some mild subcutaneous emphysema noted in the neck Patient seen and examined with Dr. Mcdowell PHYSICAL EXAM: VITAL SIGNS: Reviewed. GENERAL: Well-developed in no acute distress. HEENT: No sclera icterus. Extraocular movements grossly intact. Moist buccal mucosa. Head is atraumatic, normocephalic. Tracheostomy site with purulent drainage ABDOMEN: Soft. Nondistended. Nontender. PEG tube site clean dry and intact NEUROLOGIC: Intubated ASSESSMENT: 1. Acute hypoxic respiratory failure secondary to acute COVID-19 pneumonia with prolonged mechanical ventilation. Status post tracheostomy placement 2. Severe Protein calorie malnutrition status post PEG tube placement PLAN: -Continue PEG tube feedings -Continue ICU management -Continue supportive care -Continue to monitor tracheostomy site Physician Languages And Literature Instructor note has been reviewed by physician. Signing provider agrees with the documented findings, assessment, and plan of care. Objective - Vital Signs Vital signs: Vital Signs Temp 98.8 F 07/29/20 08:00 Pulse 128 H 07/29/20 11:00 Resp 27 H 07/29/20 11:00 BP 165/101 07/29/20 11:00 Pulse Ox 96 07/29/20 11:00 Intake & Output 07/28/20 07/29/20 07/29/20 18:59 06:59 18:59 Intake Total 774 528 324 Output Total 297 940 450 Balance -211 412 -126 Weight 105.9 kg Intake: IV 170 60 20 0.9 Normal Saline 70 60 20 cefTRIAXone 1 gm In 100 Sodium Chloride 0.9% 50 ml @ 100 mls/hr IVPB Q24HR [facility] Rx#:[id number] Intake, IV Titration 150 100 Amount Anidulafungin 100 mg In 100 100 Sodium Chloride 0.9% 100 ml @ 84 mls/hr IVPB DAILY [facility] Rx#:[id number] Desmopressin Acetate 28 50 mcg In Sodium Chloride 0. 9% 50 ml @ 200 mls/hr IVPB ONCE ONE Rx#: [id number] Tube Feeding 144 468 144 Blood Product 310 Rc As-1 Unit 310 [id number] Other 60 Output: Urine 985 940 450 Other: Voiding Method Indwelling Catheter Indwelling Catheter ABP, PAP, CO, CI - Last Documented Arterial Blood Pressure 118/64 - Labs CBC & Chem 7: 07/29/20 05:00 07/29/20 05:00 Labs: Abnormal Lab Results - Last 24 Hours (Table) 07/28/20 07/28/20 07/28/20 Range/Units 10:32 17:00 17:53 WBC 0.2 L* (3.8-10.6) k/uL RBC 2.47 L (4.30-5.90) m/uL Hgb 7.3 L (13.0-17.5) gm/dL Hct 23.3 L (39.0-53.0) % RDW 17.1 H (11.5-15.5) % Plt Count 133 L (150-450) k/uL Retic Count 4.6 H (0.5-2.0) % Haptoglobin (31.2-198.0) mg/dL D-Dimer (<0.60) mg/L FEU ABG HCO3 (21-25) mmol/L ABG Total CO2 (19-24) mmol/L ABG O2 Saturation (94-97) % Sodium (137-145) mmol/L Chloride (98-107) mmol/L BUN (9-20) mg/dL Creatinine (0.66-1.25) mg/dL Glucose (74-99) mg/dL POC Glucose (mg/dL) 133 H (75-99) mg/dL Crossmatch See Detail 07/28/20 07/29/20 07/29/20 Range/Units 23:51 01:00 05:00 WBC 0.3 L* (3.8-10.6) k/uL RBC 2.40 L (4.30-5.90) m/uL Hgb 7.2 L (13.0-17.5) gm/dL Hct 22.7 L (39.0-53.0) % RDW 17.1 H (11.5-15.5) % Plt Count 141 L (150-450) k/uL Retic Count (0.5-2.0) % Haptoglobin 266.0 H (31.2-198.0) mg/dL D-Dimer (<0.60) mg/L FEU ABG HCO3 (21-25) mmol/L ABG Total CO2 (19-24) mmol/L ABG O2 Saturation (94-97) % Sodium (137-145) mmol/L Chloride (98-107) mmol/L BUN (9-20) mg/dL Creatinine (0.66-1.25) mg/dL Glucose (74-99) mg/dL POC Glucose (mg/dL) 132 H (75-99) mg/dL Crossmatch 07/29/20 07/29/20 07/29/20 Range/Units 05:00 05:00 05:00 WBC 0.2 L* (3.8-10.6) k/uL RBC 2.38 L (4.30-5.90) m/uL Hgb 7.0 L (13.0-17.5) gm/dL Hct 22.2 L (39.0-53.0) % RDW 16.9 H (11.5-15.5) % Plt Count 142 L (150-450) k/uL Retic Count 4.1 H (0.5-2.0) % Haptoglobin (31.2-198.0) mg/dL D-Dimer 3.83 H (<0.60) mg/L FEU ABG HCO3 (21-25) mmol/L ABG Total CO2 (19-24) mmol/L ABG O2 Saturation (94-97) % Sodium 148 H (137-145) mmol/L Chloride 109 H (98-107) mmol/L BUN 134 H* (9-20) mg/dL Creatinine 4.28 H (0.66-1.25) mg/dL Glucose 116 H (74-99) mg/dL POC Glucose (mg/dL) (75-99) mg/dL Crossmatch 07/29/20 07/29/20 07/29/20 Range/Units 05:08 05:29 11:07 WBC (3.8-10.6) k/uL RBC (4.30-5.90) m/uL Hgb (13.0-17.5) gm/dL Hct (39.0-53.0) % RDW (11.5-15.5) % Plt Count (150-450) k/uL Retic Count (0.5-2.0) % Haptoglobin (31.2-198.0) mg/dL D-Dimer (<0.60) mg/L FEU ABG HCO3 26 H (21-25) mmol/L ABG Total CO2 27 H (19-24) mmol/L ABG O2 Saturation 99.0 H (94-97) % Sodium (137-145) mmol/L Chloride (98-107) mmol/L BUN (9-20) mg/dL Creatinine (0.66-1.25) mg/dL Glucose (74-99) mg/dL POC Glucose (mg/dL) 116 H 129 H (75-99) mg/dL Crossmatch Microbiology - Last 24 Hours (Table) 07/28/20 11:45 Blood Culture - Preliminary Blood No Growth after 24 hours 07/26/20 22:06 Blood Culture - Preliminary Blood No Growth after 48 hours 07/28/20 11:55 Urine Culture - Preliminary Urine,Voided
[2020-07-29 17:49] LABS: Glucose,Whole Blood 145 mg/dL (75-99)
--- NOTE | 2020-07-29 18:07 | PN ---
PROGRESS NOTE DATE OF SERVICE: 07/29/2020 REASON FOR FOLLOWUP: Fever, source likely UTI. INTERVAL HISTORY: The patient's overall fever pattern has improved. No fever has been recorded in the last 24 hours. The patient is hemodynamically stable, not on any pressor support. FiO2 is currently at 30%. Some drainage around the trach site has been noted, but nothing through the ET per the nursing staff, and no diarrhea has been reported. PHYSICAL EXAMINATION: Blood pressure is 165/100 with a pulse of 128, temperature of 98. He is 96% on 30% FiO2. General description is a middle-aged male intubated on the vent. RESPIRATORY SYSTEM: Unlabored breathing with decreased intensity of breath sounds. No wheeze. HEART: S1, S2. Regular rate and rhythm. ABDOMEN: Soft. No tenderness. LABS: Hemoglobin is 7, white count 0.2, BUN of 134, creatinine 4.28. Blood culture repeat so far negative. DIAGNOSTIC IMPRESSION AND PLAN: 1. Patient with a fever. Concern for possible urinary tract infection. The patient also had a positive catheter tip with Armida albicans; however, that line has been discontinued. The patient's Silva catheter has been changed. Patient to continue with Eraxis. 2. Leukopenia; could be related to rocephin which has been discontinued. Hematology/Oncology has seen the patient and the patient has been started on filgrastim. Will see response to it and continue with supportive care. MMODL / RALFN: [id number] / MTDD
[2020-07-29] MEDS: FILGRASTIM-SNDZ 480 MCG/0.8 ML SYRINGE SQ SCH (19:09)
[2020-07-29] MEDS: SODIUM CHLORIDE 0.9% 1,000 ML IV SCH (20:10)
[2020-07-29] MEDS: HYDROmorphone 0.5 MG/0.5 ML SYRINGE IVP PRN (20:38)
--- NOTE | 2020-07-29 22:06 | P.PN ---
Subjective This is a pleasant 53 years old male with past medical history of hypertension, osteoarthritis, sleep apnea. Presents with respiratory distress secondary to covid pneumonia and secondary bacterial infection is suspected as well with positive sputum culture for streptococcus, group C. Currently remains on ceftriaxone per ID team. Patient has prolonged course in the ICU. He was on mechanical ventilation and need a small dose of Levophed at the beginning , Also patient has elevated troponin and he was started on heparin drip however he developed coffee-ground emesis via anicteric tube, heparin drip was stopped and hemoglobin is stable and his hit antibodies came back positive, Management Lecturer found to his elevated troponin is secondary to his Covid infection and hypotension, he was started on argatroban drip for suspected left hand ischemia . Currently he kept on aspirin one 50 mg rectally daily, with no any anticoagulation, Eliquis is held for PEG tube placement His renal function worsened at certain point needing hemodialysis due to his Covid infectionl, nonoliguric. Currently he is off dialysis Receiving nutrition through TPN, and scheduled for PEG tube placement today Plan for him was to go to LTAC wants PEG tube was placed and functional Patient is currently on eraxis, he is also on dexamethasone , Lasix IV 80 mg twice daily, Protonix 40 mg IV twice macey I called his medical insurance provider [employer] at [phone] extension [phone] at 2 PM, however the midline was 2 PM today , of physicians were busy per staff and they said they will call me tomorrow 8:30-8:40 5 AM, I provided my cell phone to [employer] 07/27/2020 Patient remains in the ICU, his vent dependent. Status post tracheostomy. He got his PEG tube yesterday and start tube feeding today.. Associated with leukopenia He tolerated that well so far per ICU nurse. His postoperative go to LTAC tomorrow if he was going to be stable however he is a spiking temperature last night and today 101.9 Labs today showing leukopenia with ellipses 0.6, hemoglobin stable 8.2 as well as platelets 148 k. . Glucose control, creatinine 3.6 which is a stable over the last 10 days. inflammatory markers still elevated but stable with ferritin is 35. Total jennifer irubin is 3.4, liver enzymes mildly elevated with AST 79 and AFP 115, C-reactive protein is elevated at 14.9 Chest x-ray showing bilateral multifocal opacity most prominent in the apices and bases on background low lung volume consistent with COVID-19 infection. No interval change from one day earlier Currently patient kept on Eraxis, ceftriaxone. Also she is on dexamethasone 4 mg IV daily, Lasix 80 mg IV daily. Today I did appear to be with Dr. Johnson from [facility], unfortunately she rejected the case stating there is no documentation of weaning. I tried to explain to her that usually we do a sedation holiday and weaning trial prior to any tracheostomy under the care of critical care team however she was asking where in the chart documented, it was difficult to locate documentation about weaning trial in this patient with more than 3 weeks hospital stays and in a few minutes over the phone, eventually she ejected the case as above. Discussed with dialysis social worker 07/28/2020 Patient remains in the ICU on mechanical ventilation with pulmonary/critical care team help with vent management Patient hemodynamically stable Labs showing leukopenia 0.2K, hemoglobin is 6.5 and platelets 108, after 1 unit of blood transfusion hemoglobin went up to 7.3 and platelet with a 3. Creatinine is 3.9, compared to 3.[address] of the brain showing evolving subacute hemorrhagic infarct of the right frontal lobe shows no significant interval change 1 unit of blood is ordered today. Hematology team consulted for severe leukopenia and throughout its due to his severe critical illness and bone marrow suppression and continue the current management and transfuse as needed further recommendations Currently patient kept on Eraxis, Also she is on dexamethasone 4 mg IV daily, Lasix 80 mg IV daily. Ceftriaxone was discontinued today With the help of the dialysis social worker, today signed a letter to his medical insurance provider to approve for his LTAC transfer, the patient was sent today, explaining that LTAC is the main way to treat him , Also as per my discussion with dialysis social worker Ryan, critical care team also will try to contact Lynn 07/29/2020 Patient remains in the ICU on mechanical ventilation with pulmonary/critical care team on the case Patient is currently on erxis for fungal UTI. filgastrim was added for severe leukopenia of 0.2 and we'll monitor response Despite history of subacute hemorrhagic infarct, patient is a started on Lovenox for DVT prophylaxis and aspirin 300 mg by pulmonary and cardiology teams, we'll keep monitoring her closely. Review of systems: N/a Active Medications Generic Name Dose Route Start Last Admin Trade Name Freq PRN Reason Stop Dose Admin Acetaminophen 650 mg 07/26/20 20:36 07/27/20 12:24 Acetaminophen Suppository 650 Mg Supp RECTAL 650 mg Q6HR PRN Administration Fever and/ or Pain Albuterol Sulfate 2 puff 07/05/20 08:00 07/29/20 19:35 Albuterol Hfa Inhaler INHALATION 2 puff RT-TID PRAFUL Administration Aspirin 300 mg 07/29/20 09:00 07/29/20 08:51 Aspirin 300 Mg Supp RECTAL 300 mg DAILY PRAFUL Administration Darbepoetin Rodrigo 40 mcg 07/14/20 11:00 07/28/20 09:44 Darbepoetin Rodrigo 40 Mcg/0.4 Ml Syringe SQ 40 mcg Q7D PRAFUL Administration Dexamethasone Sodium Phosphate 4 mg 07/27/20 09:00 07/29/20 08:51 Dexamethasone Sod Phosphate 4 Mg/Ml 1 Ml Vial IV 4 mg DAILY PRAFUL Administration Enoxaparin Sodium 30 mg 07/29/20 09:00 07/29/20 08:51 Enoxaparin 30 Mg/0.3 Ml Syringe SQ 30 mg DAILY PRAFUL Administration Filgrastim-Sndz 480 mcg 07/29/20 18:00 07/29/20 19:09 Filgrastim-Sndz 480 Mcg/0.8 Ml Syringe SQ 480 mcg DAILY@1800 PRAFUL Administration Hydromorphone HCl 0.5 mg 07/28/20 11:35 07/29/20 20:38 Hydromorphone 0.5 Mg/0.5 Ml Syringe IVP 0.5 mg Q3HR PRN Administration Pain Sodium Chloride 1,000 mls @ 10 mls/hr 07/22/20 19:30 07/29/20 20:10 Saline 0.9% IV 10 mls/hr .Q24H PRAFUL Administration Anidulafungin 100 mg/ Sodium 130 mls @ 84 mls/hr 07/27/20 09:00 07/29/20 08:51 Chloride IVPB 84 mls/hr DAILY PRAFUL Administration Insulin Aspart 0 unit 07/11/20 12:00 07/29/20 19:09 Insulin Aspart (Novolog) 100 Unit/Ml Vial SQ 1 unit Q6H PRAFUL Administration Protocol Miscellaneous Information 1 each 07/25/20 05:03 Potassium Replacement Protocol 1 Each Misc MISCELLANE DAILY PRN Per Protocol Protocol Pantoprazole Sodium 40 mg 07/05/20 21:00 07/29/20 20:10 Pantoprazole 40 Mg/10 Ml Vial IVP 40 mg BID PRAFUL Administration Objective - Vital Signs Vital signs: Vital Signs Temp 98.7 F 07/29/20 03:00 Pulse 122 H 07/29/20 06:00 Resp 24 07/29/20 06:00 BP 134/86 07/29/20 06:00 Pulse Ox 98 07/29/20 06:00 Intake & Output 07/28/20 07/29/20 07/29/20 18:59 06:59 18:59 Intake Total 774 528 Output Total 985 940 Balance -211 -412 Weight 105.9 kg Intake: IV 170 60 0.9 Normal Saline 70 60 cefTRIAXone 1 gm In 100 Sodium Chloride 0.9% 50 ml @ 100 mls/hr IVPB Q24HR [facility] Rx#:[id number] Intake, IV Titration 150 Amount Anidulafungin 100 mg In 100 Sodium Chloride 0.9% 100 ml @ 84 mls/hr IVPB DAILY [facility] Rx#:[id number] Desmopressin Acetate 28 50 mcg In Sodium Chloride 0. 9% 50 ml @ 200 mls/hr IVPB ONCE ONE Rx#: [id number] Tube Feeding 144 468 Blood Product 310 Rc As-1 Unit 310 [id number] Output: Urine 985 940 Other: Voiding Method Indwelling Catheter Indwelling Catheter ABP, PAP, CO, CI - Last Documented Arterial Blood Pressure 118/64 - Exam -GENERAL: The patient is intubated and sedated, well nourished. HEENT: Pupils are round and equally reacting to light. EOMI. No scleral icterus. No conjunctival pallor. Normocephalic, atraumatic. No pharyngeal erythema. No thyromegaly. CARDIOVASCULAR: S1 and S2 present. No murmurs, rubs, or gallops. PULMONARY: Chest is clear to auscultation, no wheezing or crackles. ABDOMEN: Soft, nontender, nondistended, normoactive bowel sounds. No palpable organomegaly. MUSCULOSKELETAL: No joint swelling or deformity. EXTREMITIES: No cyanosis, clubbing, or pedal edema. NEUROLOGICAL: Gross neurological examination did not reveal any focal deficits. SKIN: No rashes. no petechiae. - Labs CBC & Chem 7: 07/29/20 05:00 07/29/20 05:00 Labs: Abnormal Lab Results - Last 24 Hours (Table) 07/28/20 07/28/20 07/28/20 Range/Units 05:30 10:32 11:45 WBC (3.8-10.6) k/uL RBC (4.30-5.90) m/uL Hgb (13.0-17.5) gm/dL Hct (39.0-53.0) % RDW (11.5-15.5) % Plt Count (150-450) k/uL Retic Count (0.5-2.0) % PT 12.2 H (9.0-12.0) sec INR 1.2 H (<1.2) Fibrinogen 718 H (200-500) mg/dL D-Dimer 6.99 H (<0.60) mg/L FEU ABG HCO3 (21-25) mmol/L ABG Total CO2 (19-24) mmol/L ABG O2 Saturation (94-97) % Sodium (137-145) mmol/L Chloride (98-107) mmol/L BUN (9-20) mg/dL Creatinine (0.66-1.25) mg/dL Glucose (74-99) mg/dL POC Glucose (mg/dL) (75-99) mg/dL Ferritin 967.1 H (22.0-322.0) ng/mL Urine Protein (Negative) Urine Blood (Negative) Ur Leukocyte Esterase (Negative) Urine RBC (0-5) /hpf Urine WBC (0-5) /hpf Amorphous Sediment (None) /hpf Urine Bacteria (None) /hpf Hyaline Casts (0-2) /lpf Urine Mucus (None) /hpf Crossmatch See Detail 07/28/20 07/28/20 07/28/20 Range/Units 11:49 11:55 17:00 WBC 0.2 L* (3.8-10.6) k/uL RBC 2.47 L (4.30-5.90) m/uL Hgb 7.3 L (13.0-17.5) gm/dL Hct 23.3 L (39.0-53.0) % RDW 17.1 H (11.5-15.5) % Plt Count 133 L (150-450) k/uL Retic Count 4.6 H (0.5-2.0) % PT (9.0-12.0) sec INR (<1.2) Fibrinogen (200-500) mg/dL D-Dimer (<0.60) mg/L FEU ABG HCO3 (21-25) mmol/L ABG Total CO2 (19-24) mmol/L ABG O2 Saturation (94-97) % Sodium (137-145) mmol/L Chloride (98-107) mmol/L BUN (9-20) mg/dL Creatinine (0.66-1.25) mg/dL Glucose (74-99) mg/dL POC Glucose (mg/dL) 132 H (75-99) mg/dL Ferritin (22.0-322.0) ng/mL Urine Protein Trace H (Negative) Urine Blood Small H (Negative) Ur Leukocyte Esterase Trace H (Negative) Urine RBC 11 H (0-5) /hpf Urine WBC 25 H (0-5) /hpf Amorphous Sediment Occasional H (None) /hpf Urine Bacteria Occasional H (None) /hpf Hyaline Casts 5 H (0-2) /lpf Urine Mucus Occasional H (None) /hpf Crossmatch 07/28/20 07/28/20 07/29/20 Range/Units 17:53 23:51 01:00 WBC 0.3 L* (3.8-10.6) k/uL RBC 2.40 L (4.30-5.90) m/uL Hgb 7.2 L (13.0-17.5) gm/dL Hct 22.7 L (39.0-53.0) % RDW 17.1 H (11.5-15.5) % Plt Count 141 L (150-450) k/uL Retic Count (0.5-2.0) % PT (9.0-12.0) sec INR (<1.2) Fibrinogen (200-500) mg/dL D-Dimer (<0.60) mg/L FEU ABG HCO3 (21-25) mmol/L ABG Total CO2 (19-24) mmol/L ABG O2 Saturation (94-97) % Sodium (137-145) mmol/L Chloride (98-107) mmol/L BUN (9-20) mg/dL Creatinine (0.66-1.25) mg/dL Glucose (74-99) mg/dL POC Glucose (mg/dL) 133 H 132 H (75-99) mg/dL Ferritin (22.0-322.0) ng/mL Urine Protein (Negative) Urine Blood (Negative) Ur Leukocyte Esterase (Negative) Urine RBC (0-5) /hpf Urine WBC (0-5) /hpf Amorphous Sediment (None) /hpf Urine Bacteria (None) /hpf Hyaline Casts (0-2) /lpf Urine Mucus (None) /hpf Crossmatch 07/29/20 07/29/20 07/29/20 Range/Units 05:00 05:00 05:00 WBC 0.2 L* (3.8-10.6) k/uL RBC 2.38 L (4.30-5.90) m/uL Hgb 7.0 L (13.0-17.5) gm/dL Hct 22.2 L (39.0-53.0) % RDW 16.9 H (11.5-15.5) % Plt Count 142 L (150-450) k/uL Retic Count 4.1 H (0.5-2.0) % PT (9.0-12.0) sec INR (<1.2) Fibrinogen (200-500) mg/dL D-Dimer 3.83 H (<0.60) mg/L FEU ABG HCO3 (21-25) mmol/L ABG Total CO2 (19-24) mmol/L ABG O2 Saturation (94-97) % Sodium 148 H (137-145) mmol/L Chloride 109 H (98-107) mmol/L BUN 134 H* (9-20) mg/dL Creatinine 4.28 H (0.66-1.25) mg/dL Glucose 116 H (74-99) mg/dL POC Glucose (mg/dL) (75-99) mg/dL Ferritin (22.0-322.0) ng/mL Urine Protein (Negative) Urine Blood (Negative) Ur Leukocyte Esterase (Negative) Urine RBC (0-5) /hpf Urine WBC (0-5) /hpf Amorphous Sediment (None) /hpf Urine Bacteria (None) /hpf Hyaline Casts (0-2) /lpf Urine Mucus (None) /hpf Crossmatch 07/29/20 07/29/20 Range/Units 05:08 05:29 WBC (3.8-10.6) k/uL RBC (4.30-5.90) m/uL Hgb (13.0-17.5) gm/dL Hct (39.0-53.0) % RDW (11.5-15.5) % Plt Count (150-450) k/uL Retic Count (0.5-2.0) % PT (9.0-12.0) sec INR (<1.2) Fibrinogen (200-500) mg/dL D-Dimer (<0.60) mg/L FEU ABG HCO3 26 H (21-25) mmol/L ABG Total CO2 27 H (19-24) mmol/L ABG O2 Saturation 99.0 H (94-97) % Sodium (137-145) mmol/L Chloride (98-107) mmol/L BUN (9-20) mg/dL Creatinine (0.66-1.25) mg/dL Glucose (74-99) mg/dL POC Glucose (mg/dL) 116 H (75-99) mg/dL Ferritin (22.0-322.0) ng/mL Urine Protein (Negative) Urine Blood (Negative) Ur Leukocyte Esterase (Negative) Urine RBC (0-5) /hpf Urine WBC (0-5) /hpf Amorphous Sediment (None) /hpf Urine Bacteria (None) /hpf Hyaline Casts (0-2) /lpf Urine Mucus (None) /hpf Crossmatch Microbiology - Last 24 Hours (Table) 07/26/20 22:06 Blood Culture - Preliminary Blood No Growth after 48 hours 07/28/20 11:55 Urine Culture - Preliminary Urine,Voided Assessment and Plan Assessment: Acute Covid pneumonia New fever and leukopenia, secondary to fungal UTI. ID team on the case Acute hypoxic respiratory failure needing mechanical ventilation Acute kidney injury needed hemodialysis , currently he is off HD Acute hemorrhagic stroke , right frontal region with mild petechial hemorrhage in the cortical ribbon. AMS secondary to metabolic encephalogpathy and stroke, s/p PEG placement and tracheostomy as he could not be weaned off m.ventilation Suspected ischemia of the left hand on anticoagulation , resolved now Coffee ground vomiting with suspected acute GI bleed Thrombocytopenia secondary to sepsis and heparin induced thrombocytopenia Severe leukopenia secondary to Covid infection Elevated troponin, secondary to renal function impairment, viral infection and hypotension Plan: This is a pleasant 59 years old male who presents with Covid pneumonia, on mechanical ventilation and AMS. Continue with mechanical ventilation for pulmonary/critical care team will follow the patient closely.Continue with multiple vitamin zinc and vitamin D c/w eraxis for UTI and filgastrim for leukopenia GI and cardiology, nephrology , hematology teams on the case aspirin as per neurology team Labs and medication were reviewed.. Continue same treatment. Continue with symptomatic treatment. Resume home medication. Monitor lytes and vitals. DVT and GI prophylaxis. Further recommendations as per clinical course of the patient DVT prophylaxis: eliquis on hold . Continue with DVT prophylaxis as per critical care team, lovenox is added GI Prophylaxis: Ppi, Protonix twice a day Prognosis is guarded The peel was sent to his dialysis social worker provider Lynn
[2020-07-29 23:40] LABS: Glucose,Whole Blood 128 mg/dL (75-99)
[2020-07-30] MEDS: ACETAMINOPHEN SUPPOSITORY 650 MG SUPP RECTAL PRN (00:26)
[2020-07-30 04:39] LABS: Anisocytosis Slight; HCT 21.1 % (39.0-53.0); HGB 7.2 gm/dL (13.0-17.5); MCH 31.5 pg (25.0-35.0); MCV 92.5 fL (80.0-100.0); Mean Platelet Volume 8.6; Platelet Count 113 k/uL (150-450); RBC 2.28 m/uL (4.30-5.90); RDW 16.5 % (11.5-15.5)
[2020-07-30 04:40] LABS: Allen Test Performed? Yes
[2020-07-30 05:11] LABS: WBC 0.2 k/uL (3.8-10.6)
[2020-07-30 05:29] LABS: Albumin 2.7 g/dL (3.5-5.0); Calcium 8.8 mg/dL (8.4-10.2); Potassium 3.8 mmol/L (3.5-5.1); Total Bilirubin 3.5 mg/dL (0.2-1.3); Total Protein 5.1 g/dL (6.3-8.2)
[2020-07-30 05:44] LABS: ABG Base Excess 1.5 mmol/L; ABG HCO3 25 mmol/L (21-25); ABG PCO2 36 mmHg (35-45); ABG PH 7.46 (7.35-7.45); ABG PO2 104 mmHg (83-108); ABG TCO2 27 mmol/L (19-24)
[2020-07-30 05:45] LABS: Glucose,Whole Blood 138 mg/dL (75-99)
[2020-07-30] MEDS: INSULIN ASPART (NovoLOG) 100 UNIT/ML VIAL SQ SCH ×4 (05:50→23:56)
[2020-07-30] MEDS: POTASSIUM CHLORIDE 10 MEQ in WATER FOR INJECTION 1 100ML.BAG IVPB SCH ×2 (06:16→07:27)
[2020-07-30 07:18] LABS: RBC Fragments Present
[2020-07-30] MEDS: ALBUTEROL HFA INHALER INHALATION SCH ×3 (07:41→19:12)
--- NOTE | 2020-07-30 07:41 | XR ---
EXAMINATION TYPE: XR chest 1V portable DATE OF EXAM: 07/30/2020 HISTORY: Shortness of breath. COMPARISON: 07/28/2020 TECHNIQUE: Single view of the chest is submitted. FINDINGS: Demonstrated are scattered senescent parenchymal change. Patchy basilar infiltrates persist without significant interval change. Right-sided central venous li ne and tracheostomy tube are unchanged. PICC line is noted. The heart is stable. Hilar and mediastinal structures are within normal limits. Degenerative changes are seen of the dorsal spine. IMPRESSION: 1. Patchy basilar infiltrates persist without significant interval change.
[2020-07-30] MEDS: ENOXAPARIN 30 MG/0.3 ML SYRINGE SQ SCH (08:20)
[2020-07-30] MEDS: ANIDULAFUNGIN 100 MG in SODIUM CHLORIDE 0.9% 100 ML IVPB SCH (08:21)
[2020-07-30] MEDS: PANTOPRAZOLE 40 MG/10 ML VIAL IVP SCH ×2 (08:21→20:20)
[2020-07-30] MEDS: DEXAMETHASONE SOD PHOSPHATE 4 MG/ML 1 ML VIAL IV SCH (08:21)
[2020-07-30] MEDS: ASPIRIN 300 MG SUPP RECTAL SCH (09:30)
--- NOTE | 2020-07-30 10:46 | P.PN ---
Subjective Progress Note Date: 07/30/20 Principal diagnosis: Acute hypoxemic respiratory failure secondary to acute CoVID 19 pneumonia/pneumonitis This is a 59-year-old male who presented to the emergency department and apparently tested positive for COVID 8 days ago. The patient has apparently been sick for about 10 days. His complaints included weakness and difficulty breathing. In addition, the patient had cough. Patient apparently denied fever, headache, pain, or other complaints initially. Patient is legally blind. The patient did not receive the coronavirus vaccination. Apparently, in the emergency department, his respiratory status declined, and he was intubated. The patient on the volume assist control mode rate of 24, breathing 30 times a minute, tidal volume 450, FiO2 100%, PEEP of 5 being increased to 10. Arterial blood gases show pO2 75, pCO2 33, pH is 7.44. He is receiving propofol at 30 mcg/kg/m, heparin via weightbase protocol, and saline at 20 mL an hour. The patient has a history of hypertension, heart posterior arthritis, sleep apnea, and is legally blind. Chest x-ray shows diffuse bilateral infiltrates. White count 6.3, hemoglobin 12.5, hematocrit 36.8, platelet count 216,000. PTT is 35.4. D-dimer 0.68. Sodium 134, potassium 4.3, chlorides 100, CO2 23, anion gap 11, BUN 39, creatinine 1.70. Troponins were 1.270 and 0.997. C-reactive protein is 261, N-terminal proBNP 4540. Pro-calcitonin is 0.23. Urine is negative both for nitrite and leukocyte esterase. Occasional bacteria, and few white blood cell clumps. Patient seen today 07/07/2020 in follow-up in the intensive care unit. He remains intubated on mechanical ventilator assist control mode. Rate of 24, tidal volume 450, FiO2 100% and a PEEP of 15. Morning blood gases reveal a pO2 135, pCO2 55, pH 7.22. He remains sedated on propofol at 60 mcg/kg/m. Norepinephrine at 0.03 mcg/kg/m. 0.9 normal saline at 80 MLS per hour. Tube feedings have not been initiated yet due to increased output from the NG tube which is coffee-ground in color. Blood cultures reveal no growth. Urine culture reveal no growth. Sputum cultures pending. White count 18.2. Hemoglobin 13.7. Platelet count 110. D-dimer greater than 34. Sodium 137. Potassium 5.9. Creatinine 1.55. Ferritin 5795. LDH 2301. C-reactive protein 147. Glucose 148. He is continued on bronchodilators, dexamethasone, vitamin supplements. He remains on Levaquin. Chest x-ray reveals scattered airspace infiltrates bilaterally. Unchanged. He did receive Tocilizumab. The patient is seen today 07/08/2020 and follow-up in the intensive care unit. He remains intubated and on the mechanical ventilator. Assist-control mode at a rate of 30, tidal volume 450, FiO2 80% and a PEEP of 15. Morning blood gases reveal a P O2 of 91, P CO2 of 49, pH 7.22. He is sedated on propofol at 60 mcg/kg/m. Norepinephrine at 6 mcg/m. 0.9 normal saline at 80 MLS per hour. He was initiated back on his Lovenox yesterday due to d-dimer greater than 34 but was again discontinued. GI services are on the case. White count 20.8. Hemoglobin 12.4. Platelet count 90,000. Sodium 136. Potassium 5.4. Creatinine 2.83. Remains on dexamethasone, vitamin supplements. Antibiotics in the form of Levaquin. Follow-up blood culture reveals no growth. Sputum culture pending. Urine culture revealed no growth. The patient is seen today 07/09/2020 in follow-up in the intensive care unit. He remains intubated, sedated on the mechanical ventilator. Current settings assist-control mode at a rate of 30, tidal volume 450, FiO2 40% and a PEEP of 18. Morning blood gases revealed a PaO2 of 74, pCO2 55, pH 7.14. He is sedated with propofol at 60 mcg/kg/m. Fentanyl drip at 0.5 mcg/kg/h. Nimbex at 1 mcg/kg/m. Being nourished with Nepro at 15 ML's per hour which is his goal. Chest x-ray continues to show patchy bilateral infiltrates, increased in the left midlung. He is now noted to have a cool and dusky left hand with no palpable pulse. Venous Doppler did not reveal any DVT of the left upper extremity. However there is superficial thrombus noted in the left cephalic vein and left basilic vein as noted previously. Follow-up sputum culture pending. White count 17.0. Hemoglobin 11.9. Platelet count 76,000. Lymphocytes 0.5. Sodium 136. Potassium 6.4. Bicarb 17. BUN 91. Creatinine 3.74. Glucose 125. LDH 1316, C-reactive protein 30.8. He has been initiated on argatroban at 0.5 mcg/kg/m. HIT antibodies are pending. He has been initiated on D5W with 3 A of sodium bicarb at 70 ML's per hour. Remains on dexamethasone and vitamin supplements. Patient is seen today 07/10/2020 and follow-up in the intensive care unit. He remains intubated, sedated on the mechanical ventilator. Current settings assist-control mode at a rate of 36, tidal volume 450, FiO2 40% and a PEEP of 18. Morning blood gases reveal a pO2 of 95, pCO2 46, pH 7.24. He is currently sedated on propofol at 60 mcg/kg/m, Nimbex at 1 mcg/kg/m, fentanyl at 0.5 mcg/kg per hour. Norepinephrine at 4 mcg/m. D5W with 3 A of bicarb at 70 ML's per hour. He remains on Argatroban at 0.5 mcg/kg/m. Tube feedings are currently on hold due to high residual volumes. Chest x-ray continue to show bibasilar infiltrates. White count 12.8. Hemoglobin 8.9. White count 78,000. D-dimer 23.24. Sodium 134. Potassium 5.3. Creatinine 4.10. The patient is seen today 07/11/2020 in follow-up in the intensive care unit. He remains intubated, sedated on the mechanical ventilator at assist control mode of a rate of 36, tidal volume 450, FiO2 40% and a PEEP of 15. Morning blood gases reveal pO2 of 81, pCO2 44, pH 7.32. He remains sedated on propofol at 60 mcg/kg/m, fentanyl at 0.7 mcg/kg/h, norepinephrine at 4 mcg/m, D5W with 3 A of sodium bicarb at 70 ML's per hour. Nimbex at 2 mcg/kg/m. He is continued on Argatroban at 0.5 mcg/kg/m. Being nourished with Nepro at 15 ML's per hour. He did receive hemodialysis yesterday with 1 L removed. Chest x-ray reveals mild bibasilar infiltrates. Sputum cultures positive for beta-hemolytic strep, group C. White count 18.1. Hemoglobin 10.6. Platelet count 141. D-dimer 19.69. Sodium 133. Potassium 4.7. Creatinine 4.14. LDH 1055, C-reactive protein 13.8. Remains on antibiotics in the form of ceftriaxone. Bronchodilators. Vitamin supplements. Dexamethasone. Remains off Lovenox due to HIT. The patient is seen today 07/25/2020 in follow-up in the intensive care unit, patient received tracheostomy and PEG tube insertion on 07/21/2020, PEG tube was nonfunctional and removed her surgical services. He remains trached to the mechanical ventilator and is currently on assist control mode of ventilation with a rate of 24, tidal volume 450, FiO2 40% and PEEP of 5, this morning's b lood gas shows pO2 of 128, pCO2 of 43, and pH of 7.40. He is currently off sedation. He does have a left-sided eye droop with change in pupils. His left- sided fingers remain cyanotic. He is moving all 4 extremities. A bit weaker on the left. His most recent brain CT showed previously noted area of subarachnoid hemorrhage associated with abnormal hypodensity posterior laterally in the right frontal lobe was again noted, not significantly changed. Neurology thinks patient has suffered acute ischemic stroke with a small right frontal region with mild petechial hemorrhage in the cortical region. The plan is for repeat computed tomography scan of the head tomorrow morning, AGNIESZKA tomorrow and reinsertion of a PEG tube tomorrow. He remains with a left upper extremity PICC line in place. TPN at 55 ML's per hour. 0.9 normal sinus at 10 MLS per hour. Continued on clever proximal at 8 mg per hour. Chest x-ray continues to revealed bilateral airspace disease. Stable compared to previous. Sputum culture positive for Armida, catheter tips positive for Armida. White count 2.1. Hemoglobin 7.4. Platelets 138. Sodium 139. Potassium 2.5. Creatinine 2.65. Ferritin 850. AST 49. ALT 54. LDH 654. C-reactive protein 5.9. Albumin 2.9. Glucose 155. Remains on ceftriaxone and continued on IV diuretics, Decadron. Remains off anticoagulation. On 07/26/2020 patient seen in follow-up in the intensive care unit, he remains trached to the ventilator, assist control mode of ventilation with a rate of 20 with tidal volumes were 450, FiO2 of 40% and PEEP of 5, displays blood gas shows pO2 of 122, pCO2 of 43, and pH of 7.42. He is 1.9 normal seen at 10 mL an hour, TPN is a 55 ML per hour, Cleviprex is a 7 mg per hour. He has been off Diprivan and for several days now, he just has a morphine sulfate for discomfort on as needed basis, he is waking up to touch and sometimes he follows simple commands, but he is extremely weak and unable to squeeze with his hands on command. His tube feedings have been on hold and he is supposed to have a PEG tube reinserted today, NG tube is in place to low intermittent suction a total of 450 ML of gastric drainage in the last 24 hours, urine output has been in the order of 100-200 ML per hour. He remains on IV Lasix at 80 mg every 12 hours, he is maintaining negative fluid balance of 1.5 L over the last 24 hours. Has been afebrile. Today's chest x-ray shows persistent but improving infiltrates throughout both lung palafox. Today's labs show white blood cell count of 1.1, hemoglobin of 8.4, d-dimer is 11.69, patient has remained off anticoagulation for the PEG tube reinsertion today, sodium is 142, potassium is 4.2, chloride is 102, BUN is 90, creatinine is 3.54, AST is 72, ALT is 82. He is on IV Rocephin for evidence of beta-hemolytic strep in the sputum, and central line catheter tip was positive for Armida albicans. Patient has had no fever or chills. Partially patient has suffered an acute stroke with small subarachnoid hemorrhage, cardiology has been consulted for possibility if AGNIESZKA, which cardiology felt was not needed at this time. No other acute events overnight, no fever or chills, patient has not been able to receive his oral medications for high blood pressure, and has required Cleviprex. On 07/27/2020 patient seen in follow-up in intensive care unit, patient is trached to the ventilator with assist control mode of ventilation with a rate of 24, tidal volume was 450, FiO2 30% and PEEP of 5, no blood gases were done today, overnight he developed a fever with a temp of 101.9F, and today's blood work is down trending white count, neutropenia white blood cell count is 0.6, hemoglobin is 8.2, platelet count is 148, and there is a suspicion of possibility of fungal infection, and patient was started on Eraxis yesterday. New blood cultures and urine cultures have been sent, BMP shows a sodium of 140, potassium is 5.2, BUN of 103, and creatinine of 3.66, his inflammatory markers have been reviewed, and LDH is now within normal limits at 559, and CRP is 14.9. His central line catheter tip was positive for Armida albicans, his sputum back on 07/08/2020 was positive for beta-hemolytic strep. Urine culture is currently pending, ID service is following. Patient had a new PEG tube placed on 07/26/2020 he continues on TPN for nutritional support, anticipate restarting his tube feedings this afternoon if cleared by surgery. On 07/28/2020 patient seen in follow-up in the intensive care unit. Remains trached to the ventilator, on assist control mode of ventilation with a rate of 24, tacrolimus 450, FiO2 30%, and PEEP of 5, no new blood gases today. Today's chest x-ray showing stable portable chest, and no change in bibasilar opacities. Patient has remained off sedation, and he started to follow some simple commands, however his severe generally weak, he is unable to squeeze with his hands, he opens eyes to voice, withdraws from painful stimuli. today's labs reviewed showing white blood cell, 0.2, hemoglobin is 6.5, platelet count is 108, patient is pancytopenic, 1 unit of blood will be transfused today, sodium is 144, potassium is 4.4, chloride is 108, BUN of 119, creatinine is 3.9. No obvious source of bleeding at this time. Cultures have been sent, patient is currently on Eraxis for Armida albicans on the central line catheter tip, sputum. Patient remains on Rocephin for streptococcal pneumonia. He was febrile in the last 24 hours with a T-max of 101.3F. He continues on IV Lasix, he is making urine in order of 100-120 ML per hour. Is on Nepro for nutritional support at 36 with a goal of 36 On 07/29/2020 patient seen in follow-up in the intensive care unit. Patient remains trached to the ventilator, with assist control mode of ventilation rate of 24, Tylenol is 450, FiO2 of 30%, and PEEP of 5. Patient's blood gas shows pO2 of 94, pCO2 of 39, and pH of 7.43, he is on 0.9 normal saline at 10 in the per hour, no other drips, and he is receiving nutritional support in the form of Nepro at 36 with a goal of 36 and 60 mL of water flushes every 4 hours per nephrology. He remains lethargic, generally weak. Per nursing staff patient is at times squeezing her finger on command. Brain CT was repeated showing evolving subacute hemorrhagic infarct in the right frontal lobe with no significant interval change, no new acute intracranial hemorrhage or midline shift. We restarted the patient on prophylactic anticoagulation in the form of Lovenox yesterday, today's labs have been reviewed, d-dimer is 3.83, white count is 0.2, hemoglobin is 7.0, platelet count is 142, sodium is 148, potassium is 3.8, and patient's renal function has worsened, and the Lasix is now on hold, free water flushes were increased by nephrology. Patient continues on Eraxis, and urine culture from 07/26/2020 showed Armida albicans, repeat urine culture has been sent, blood culture from 07/26/2020 showed no growth, final culture is pending. he has been afebrile. Rocephin has been discontinued, infectious disease has been consulted The patient is seen today 07/30/2020 follow-up in the intensive care unit. Remains on the mechanical ventilator. Current settings assist-control at a rate of 29, tidal volume 450, FiO2 30% and a PEEP of 5. Morning blood gases revealed a pO2 of 104, pCO2 36, pH 7.45. And 0.9#KVO. Nepro tube feedings at 36 ML's per hour which is his goal. He was declined for transfer to [facility] specialty yesterday. He is given daily interruption of sedation. Yesterday he was on pressure support of 8 and a CPAP of 5 for approximately 50 minutes. Today's chest x-ray shows patchy by basilar infiltrates without significant change. He is 1 unit of packed red blood cells this admission. Current hemoglobin 7.2. Blood cultures revealing no growth to date. Sputum culture pending. Tracheostomy wound culture pending. White count 0.2. Sodium 147. Potassium 3.8. BUN 153. Creatinine 3.93. Glucose 131. AST 129. ALT 148. He remains on Eraxis, Decadron, Lovenox, Zarxio. Objective - Vital Signs Vital signs: Vital Signs Temp 99.0 F 07/30/20 08:00 Pulse 109 H 07/30/20 10:00 Resp 27 H 07/30/20 10:00 BP 136/89 07/30/20 10:00 Pulse Ox 96 07/30/20 10:00 Intake & Output 07/29/20 07/30/20 07/30/20 18:59 06:59 18:59 Intake Total 961 1092 464 Output Total 1290 850 350 Balance -329 242 114 Weight 104.5 kg Intake: IV 55 60 120 0.9 Normal Saline 55 60 20 Potassium Chloride 10 meq 100 In Water For Injection 1 100ml.bag @ 100 mls/hr IVPB Q1H [facility] Rx#: [id number] Intake, IV Titration 100 Amount Anidulafungin 100 mg In 100 Sodium Chloride 0.9% 100 ml @ 84 mls/hr IVPB DAILY [facility] Rx#:[id number] Tube Feeding 396 432 144 Other 410 600 200 Output: Urine 1290 850 350 Other: Voiding Method Indwelling Catheter Indwelling Catheter # Bowel Movements 1 ABP, PAP, CO, CI - Last Documented Arterial Blood Pressure 118/64 - Exam GENERAL EXAM: 59-year-old gentleman, on the mechanical ventilator currently on 40% FiO2 and a PEEP of 5, in no apparent distress. HEAD: Normocephalic. EYES: Sluggish reaction of pupils, or so on the left. NOSE: Clear with pink turbinates. THROAT: No erythema or exudates. NECK: Tracheostomy tube secured in place. No masses, no JVD. CHEST: No chest wall deformity. LUNGS: Equal air entry with crackles in the bilateral posterior bases CVS: S1 and S2 normal with no audible murmur, regular rhythm. ABDOMEN: Previous PEG tube site dressing dry and intact. No hepatosplenomegaly, normal bowel sounds, no guarding or rigidity. SPINE: No scoliosis or deformity SKIN: Cyanotic, dusky fingertips on the left hand CENTRAL NERVOUS SYSTEM: Sedated. Weakness on the left side.. EXTREMITIES: Left upper extremity with cyanotic fingertips, edema. - Labs CBC & Chem 7: 07/30/20 03:44 07/30/20 03:44 Labs: Abnormal Lab Results - Last 24 Hours (Table) 07/29/20 07/29/20 07/29/20 Range/Units 05:00 11:07 17:48 WBC (3.8-10.6) k/uL RBC (4.30-5.90) m/uL Hgb (13.0-17.5) gm/dL Hct (39.0-53.0) % RDW (11.5-15.5) % Plt Count (150-450) k/uL Haptoglobin 266.0 H (31.2-198.0) mg/dL ABG pH (7.35-7.45) ABG Total CO2 (19-24) mmol/L ABG O2 Saturation (94-97) % Sodium (137-145) mmol/L Chloride (98-107) mmol/L BUN (9-20) mg/dL Creatinine (0.66-1.25) mg/dL Glucose (74-99) mg/dL POC Glucose (mg/dL) 129 H 145 H (75-99) mg/dL Total Bilirubin (0.2-1.3) mg/dL AST (17-59) U/L ALT (4-49) U/L Alkaline Phosphatase (38-126) U/L Total Protein (6.3-8.2) g/dL Albumin (3.5-5.0) g/dL 07/29/20 07/30/20 07/30/20 Range/Units 23:39 03:44 03:44 WBC 0.2 L* (3.8-10.6) k/uL RBC 2.28 L (4.30-5.90) m/uL Hgb 7.2 L (13.0-17.5) gm/dL Hct 21.1 L (39.0-53.0) % RDW 16.5 H (11.5-15.5) % Plt Count 113 L (150-450) k/uL Haptoglobin (31.2-198.0) mg/dL ABG pH (7.35-7.45) ABG Total CO2 (19-24) mmol/L ABG O2 Saturation (94-97) % Sodium 147 H (137-145) mmol/L Chloride 111 H (98-107) mmol/L BUN 153 H* (9-20) mg/dL Creatinine 3.93 H (0.66-1.25) mg/dL Glucose 131 H (74-99) mg/dL POC Glucose (mg/dL) 128 H (75-99) mg/dL Total Bilirubin 3.5 H (0.2-1.3) mg/dL AST 129 H (17-59) U/L ALT 148 H (4-49) U/L Alkaline Phosphatase 203 H (38-126) U/L Total Protein 5.1 L (6.3-8.2) g/dL Albumin 2.7 L (3.5-5.0) g/dL 07/30/20 07/30/20 Range/Units 05:22 05:44 WBC (3.8-10.6) k/uL RBC (4.30-5.90) m/uL Hgb (13.0-17.5) gm/dL Hct (39.0-53.0) % RDW (11.5-15.5) % Plt Count (150-450) k/uL Haptoglobin (31.2-198.0) mg/dL ABG pH 7.46 H (7.35-7.45) ABG Total CO2 27 H (19-24) mmol/L ABG O2 Saturation 99.0 H (94-97) % Sodium (137-145) mmol/L Chloride (98-107) mmol/L BUN (9-20) mg/dL Creatinine (0.66-1.25) mg/dL Glucose (74-99) mg/dL POC Glucose (mg/dL) 138 H (75-99) mg/dL Total Bilirubin (0.2-1.3) mg/dL AST (17-59) U/L ALT (4-49) U/L Alkaline Phosphatase (38-126) U/L Total Protein (6.3-8.2) g/dL Albumin (3.5-5.0) g/dL Microbiology - Last 24 Hours (Table) 07/29/20 19:47 Gram Stain - Preliminary Sputum Sputum Culture - Preliminary 07/26/20 22:06 Blood Culture - Preliminary Blood No Growth after 72 hours 07/28/20 11:55 Urine Culture - Preliminary Urine,Voided Yeast species 07/28/20 11:45 Blood Culture - Preliminary Blood No Growth after 24 hours Assessment and Plan Assessment: 1 Acute hypoxemic respiratory failure secondary to acute CoVID 19 pneumonia/pneumonitis requiring mechanical ventilation on 07/05/2020. Received a tocilizumab and convalescent plasma. Status post tracheostomy tube placement 07/21/2020. Post PEG tube placement 07/21/2020 with subsequent removal. Reinsertion on 07/26/2020. 2 Acute ischemic stroke, in right frontal region with mild petechial hemorrhage in the cortical ribbon, plan is for AGNIESZKA 07/25/2020 3 Acute renal failure requiring dialysis 4 History of blindness 5 Hypertension, history of 6 Osteoarthritis 7 History of obstructive sleep apnea, maintained on CPAP 8 Hyperkalemia 9 Cool, dusky left upper extremity negative for DVT, however, there is superficial thrombus in the left cephalic vein and left basilic 10 Heparin-induced thrombocytopenia, Eliquis on hold 11 Pancytopenia secondary to sepsis, currently on Zarxio per hematology Plan: The patient was seen and evaluated by Dr. Meneses Chest x-ray, ABGs and labs reviewed Continue with daily interruption of sedation Continue with daily CPAP trials Continue current treatment plan Eventual transfer to select specialty We'll continue to follow and make further recommendations based on his clinical status Critical care time 35 minutes I, the cosigning physician, performed a history & physical examination of the patient. Lungs sounds with bilateral crackles. Maintaining good O2 saturations in the 90s on 30% FiO2 and PEEP of 5 via the mechanical ventilator. I discussed the assessment and plan of care with my nurse practitioner, Zoë Roberts. I attest to the above note as dictated by her.
[2020-07-30 11:50] LABS: Glucose,Whole Blood 130 mg/dL (75-99)
--- NOTE | 2020-07-30 12:41 | P.PN ---
Subjective Patient is seen in follow-up for acute kidney injury. Nonoliguric. Renal function worse. Creatinine better today. Receiving tube feeding. Status post tracheostomy and PEG tube placement this admission. On 30% FiO2. Hemoglobin 7.2 today. Vital signs are stable. Tracheostomy noted. No gross edema. Exam discussed with the nurse. Objective - Vital Signs Vital signs: Vital Signs Temp 99.0 F 07/30/20 08:00 Pulse 109 H 07/30/20 10:00 Resp 27 H 07/30/20 10:00 BP 136/89 07/30/20 10:00 Pulse Ox 96 07/30/20 10:00 Intake & Output 07/29/20 07/30/20 07/30/20 18:59 06:59 18:59 Intake Total 961 1092 464 Output Total 1290 850 350 Balance -329 242 114 Weight 104.5 kg Intake: IV 55 60 120 0.9 Normal Saline 55 60 20 Potassium Chloride 10 meq 100 In Water For Injection 1 100ml.bag @ 100 mls/hr IVPB Q1H [facility] Rx#: [id number] Intake, IV Titration 100 Amount Anidulafungin 100 mg In 100 Sodium Chloride 0.9% 100 ml @ 84 mls/hr IVPB DAILY [facility] Rx#:[id number] Tube Feeding 396 432 144 Other 410 600 200 Output: Urine 1290 850 350 Other: Voiding Method Indwelling Catheter Indwelling Catheter # Bowel Movements 1 ABP, PAP, CO, CI - Last Documented Arterial Blood Pressure 118/64 - Labs CBC & Chem 7: 07/30/20 03:44 07/30/20 03:44 Labs: Abnormal Lab Results - Last 24 Hours (Table) 07/29/20 07/29/20 07/29/20 Range/Units 05:00 17:48 23:39 WBC (3.8-10.6) k/uL RBC (4.30-5.90) m/uL Hgb (13.0-17.5) gm/dL Hct (39.0-53.0) % RDW (11.5-15.5) % Plt Count (150-450) k/uL Haptoglobin 266.0 H (31.2-198.0) mg/dL ABG pH (7.35-7.45) ABG Total CO2 (19-24) mmol/L ABG O2 Saturation (94-97) % Sodium (137-145) mmol/L Chloride (98-107) mmol/L BUN (9-20) mg/dL Creatinine (0.66-1.25) mg/dL Glucose (74-99) mg/dL POC Glucose (mg/dL) 145 H 128 H (75-99) mg/dL Total Bilirubin (0.2-1.3) mg/dL AST (17-59) U/L ALT (4-49) U/L Alkaline Phosphatase (38-126) U/L Total Protein (6.3-8.2) g/dL Albumin (3.5-5.0) g/dL 07/30/20 07/30/20 07/30/20 Range/Units 03:44 03:44 05:22 WBC 0.2 L* (3.8-10.6) k/uL RBC 2.28 L (4.30-5.90) m/uL Hgb 7.2 L (13.0-17.5) gm/dL Hct 21.1 L (39.0-53.0) % RDW 16.5 H (11.5-15.5) % Plt Count 113 L (150-450) k/uL Haptoglobin (31.2-198.0) mg/dL ABG pH 7.46 H (7.35-7.45) ABG Total CO2 27 H (19-24) mmol/L ABG O2 Saturation 99.0 H (94-97) % Sodium 147 H (137-145) mmol/L Chloride 111 H (98-107) mmol/L BUN 153 H* (9-20) mg/dL Creatinine 3.93 H (0.66-1.25) mg/dL Glucose 131 H (74-99) mg/dL POC Glucose (mg/dL) (75-99) mg/dL Total Bilirubin 3.5 H (0.2-1.3) mg/dL AST 129 H (17-59) U/L ALT 148 H (4-49) U/L Alkaline Phosphatase 203 H (38-126) U/L Total Protein 5.1 L (6.3-8.2) g/dL Albumin 2.7 L (3.5-5.0) g/dL 07/30/20 07/30/20 Range/Units 05:44 11:49 WBC (3.8-10.6) k/uL RBC (4.30-5.90) m/uL Hgb (13.0-17.5) gm/dL Hct (39.0-53.0) % RDW (11.5-15.5) % Plt Count (150-450) k/uL Haptoglobin (31.2-198.0) mg/dL ABG pH (7.35-7.45) ABG Total CO2 (19-24) mmol/L ABG O2 Saturation (94-97) % Sodium (137-145) mmol/L Chloride (98-107) mmol/L BUN (9-20) mg/dL Creatinine (0.66-1.25) mg/dL Glucose (74-99) mg/dL POC Glucose (mg/dL) 138 H 130 H (75-99) mg/dL Total Bilirubin (0.2-1.3) mg/dL AST (17-59) U/L ALT (4-49) U/L Alkaline Phosphatase (38-126) U/L Total Protein (6.3-8.2) g/dL Albumin (3.5-5.0) g/dL Microbiology - Last 24 Hours (Table) 07/29/20 19:47 Gram Stain - Preliminary Sputum Sputum Culture - Preliminary 07/26/20 22:06 Blood Culture - Preliminary Blood No Growth after 72 hours 07/28/20 11:55 Urine Culture - Preliminary Urine,Voided Yeast species 07/28/20 11:45 Blood Culture - Preliminary Blood No Growth after 24 hours Assessment and Plan Plan: Assessment: 1. Acute kidney injury secondary to ATN secondary to covid-19 infection and acute blood loss anemia. Nonoliguric. Last hemodialysis July 22. Creatinine better today at 3.93. Elevated BUN due to acute kidney injury/diuresis, potential GI bleed and steroids. No active bleeding. 2. Hyperkalemia secondary to acute kidney injury and metabolic acidosis. Improved. 3. Metabolic acidosis secondary to acute kidney. Resolved. 4. Septic shock secondary to covid-19 pneumonia. Off vasopressors. 5. Acute hypoxic respiratory failure secondary to pneumonia. Has a tracheostomy. 6. Hyperphosphatemia secondary to acute kidney injury. Improving. Phosphorus 5.8 as of July 26. 7. Anemia/pancytopenia. Component of kidney disease. Maintained on Aranesp. ?GIB. Surgery is following. Status post blood transfusion this admission. Also received DDAVP on July 28. Hematology following. 8. Hypernatremia from lack of oral water intake. Plan: Hold hemodialysis. Hold Lasix. Increase free water to 75 mL per hour with tube feeding. Avoid nephrotoxins. Continue to assess daily for need for renal replacement therapy.
[2020-07-30] MEDS ORDERED: CEFEPIME 1 GM in SODIUM CHLORIDE 0.9% 50 ML IVPB ONE (15:00)
--- NOTE | 2020-07-30 15:39 | P.PN ---
Subjective Progress Note Date: 07/30/20 The patient was seen at bedside per the patient's nurse he blinks appropriately and more so yesterday compared today. His wbc are trending down and now it is 0.2. BUN is trending up and it is 153. Patient latest ALT is 148 and is seems that standing up. While the AST is 129 also trended up. Most recent creatinine is 3.93 yesterday is 4.28 and the day prior was 3.92. Objective - Vital Signs Vital signs: Vital Signs Temp 99.4 F 07/30/20 12:00 Pulse 104 H 07/30/20 14:00 Resp 21 07/30/20 14:00 BP 161/95 07/30/20 14:00 Pulse Ox 96 07/30/20 14:00 Intake & Output 07/29/20 07/30/20 07/30/20 18:59 06:59 18:59 Intake Total 961 1092 878 Output Total 1290 850 810 Balance -329 242 68 Weight 104.5 kg Intake: IV 55 60 140 0.9 Normal Saline 55 60 40 Potassium Chloride 10 meq 100 In Water For Injection 1 100ml.bag @ 100 mls/hr IVPB Q1H [facility] Rx#: [id number] Intake, IV Titration 100 Amount Anidulafungin 100 mg In 100 Sodium Chloride 0.9% 100 ml @ 84 mls/hr IVPB DAILY [facility] Rx#:[id number] Tube Feeding 396 432 288 Other 410 600 450 Output: Urine 1290 850 810 Other: Voiding Method Indwelling Catheter Indwelling Catheter # Bowel Movements 1 ABP, PAP, CO, CI - Last Documented Arterial Blood Pressure 118/64 - Exam GENERAL: The patient is lying in bed and is not in acute distress. RESPIRATORY: Trach and on ventilator. Is breathing at the vent. INTEGUMNTARY: Edema of all extremities. NEUROLOGICAL: Limited because he received Dilaudid and his condition. Higher mental function: The patient is drowsy but awkeable to voice. He blinks appropriately to command. He attempts to follow other few simple commands (attempted to smile and would open and close eyes to command). Cranial nerves: The pupils are round, equal and reactive to light. Primary gaze is midline. With threat patient blinks eyes bilaterally. No facial weakness b ilaterally. Otherwise could not assess rest of cranial nerves because of his condition. Motor: The strength is 0/5 throughout and to painful stimuli grimaces face to pain. Decrease tone in Bilateral upper > lower extremities. Cerebellum: Could not assess. Sensation: Could not assess light touch and to painful stimuli grimaces face. - Labs CBC & Chem 7: 07/30/20 03:44 07/30/20 03:44 Labs: Abnormal Lab Results - Last 24 Hours (Table) 07/29/20 07/29/20 07/30/20 Range/Units 17:48 23:39 03:44 WBC 0.2 L* (3.8-10.6) k/uL RBC 2.28 L (4.30-5.90) m/uL Hgb 7.2 L (13.0-17.5) gm/dL Hct 21.1 L (39.0-53.0) % RDW 16.5 H (11.5-15.5) % Plt Count 113 L (150-450) k/uL ABG pH (7.35-7.45) ABG Total CO2 (19-24) mmol/L ABG O2 Saturation (94-97) % Sodium (137-145) mmol/L Chloride (98-107) mmol/L BUN (9-20) mg/dL Creatinine (0.66-1.25) mg/dL Glucose (74-99) mg/dL POC Glucose (mg/dL) 145 H 128 H (75-99) mg/dL Total Bilirubin (0.2-1.3) mg/dL AST (17-59) U/L ALT (4-49) U/L Alkaline Phosphatase (38-126) U/L Total Protein (6.3-8.2) g/dL Albumin (3.5-5.0) g/dL 07/30/20 07/30/20 07/30/20 Range/Units 03:44 05:22 05:44 WBC (3.8-10.6) k/uL RBC (4.30-5.90) m/uL Hgb (13.0-17.5) gm/dL Hct (39.0-53.0) % RDW (11.5-15.5) % Plt Count (150-450) k/uL ABG pH 7.46 H (7.35-7.45) ABG Total CO2 27 H (19-24) mmol/L ABG O2 Saturation 99.0 H (94-97) % Sodium 147 H (137-145) mmol/L Chloride 111 H (98-107) mmol/L BUN 153 H* (9-20) mg/dL Creatinine 3.93 H (0.66-1.25) mg/dL Glucose 131 H (74-99) mg/dL POC Glucose (mg/dL) 138 H (75-99) mg/dL Total Bilirubin 3.5 H (0.2-1.3) mg/dL AST 129 H (17-59) U/L ALT 148 H (4-49) U/L Alkaline Phosphatase 203 H (38-126) U/L Total Protein 5.1 L (6.3-8.2) g/dL Albumin 2.7 L (3.5-5.0) g/dL 07/30/20 Range/Units 11:49 WBC (3.8-10.6) k/uL RBC (4.30-5.90) m/uL Hgb (13.0-17.5) gm/dL Hct (39.0-53.0) % RDW (11.5-15.5) % Plt Count (150-450) k/uL ABG pH (7.35-7.45) ABG Total CO2 (19-24) mmol/L ABG O2 Saturation (94-97) % Sodium (137-145) mmol/L Chloride (98-107) mmol/L BUN (9-20) mg/dL Creatinine (0.66-1.25) mg/dL Glucose (74-99) mg/dL POC Glucose (mg/dL) 130 H (75-99) mg/dL Total Bilirubin (0.2-1.3) mg/dL AST (17-59) U/L ALT (4-49) U/L Alkaline Phosphatase (38-126) U/L Total Protein (6.3-8.2) g/dL Albumin (3.5-5.0) g/dL Microbiology - Last 24 Hours (Table) 07/28/20 11:45 Blood Culture - Preliminary Blood No Growth after 48 hours 07/29/20 19:47 Gram Stain - Preliminary Sputum Sputum Culture - Preliminary 07/26/20 22:06 Blood Culture - Preliminary Blood No Growth after 72 hours 07/28/20 11:55 Urine Culture - Preliminary Urine,Voided Yeast species Assessment and Plan Assessment: * Altered mental status change due to Toxic metabolic encephalopathy--some improvement compared to prior exam (blinks, opens and closes eyes to command and attempt to smile). * Acute ischemic stroke small, right frontal region with mild petechial hemorrhage in the cortical ribbon. * Elevated LFT's--worsening. * Acute kidney injury requiring hemodialysis. Renal functions worsening * Acute hypoxic respiratory failure from COVID-19 related pneumonia s/p trach on 07/21/2020. * Status post revision of PEG tube. * Left hand ischemia * Anemia * Leukopenia * Hypertension * Morbid obesity * Legal blindness * Obstructive sleep apnea Plan: * CT of the head (07/28) is reported as overall stable finding, evolving subacute hemorrhagic infarct over the right frontal lobe shows no significant interval change. No new acute intracranial hemorrhage or midline shift. No significant change from a most recent CT * Continue aspirin 300 mg. * Carotid Doppler showed no hemodynamic significant stenosis of the proximal ICA. * 2-D echo from 07/06/2020 showed normal left-ventricular size. Moderate concentric LVH. EF is 55-60%. Right ventricle is severely enlarged. Mild TR. * Dr. Gaspar Spoke to patient's brother on the phone. Discussed with him about the results of the CAT scan and the current neurological condition. Discussed with him about further evaluation for mechanism of stroke with possible AGNIESZKA. He consented to proceed with AGNIESZKA to evaluate for the source of stroke. * Dr. Gaspar Spoke to corporate development manager Dr. Koroma. He believes AGNIESZKA will not change the management, as patient at present is not a candidate for anticoagulation just because of his hemorrhagic stroke. 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 * EEG 07/20/2020 also revealed severe degree of background slowing consistent with encephalopathy. No epileptiform activity seen. * Prognosis is still very guarded based upon his current neurological status, physical examination and underlying multiple comorbid conditions. * Ammonia level <9. * Will defer medical management to the ICU team and primary team. * The patient prognosis is very guarded. The patient's quality of life appears poor. * Pending placement to LTAC (was declined on today's attempt and per nurse it will be reappealed). Neurology will sign off. Please reconsult neurology if needed. The plan is discussed with the patient's nurse. Raymundo Meneses MD Neuro-Hospitalist Time with Patient: Less than 30
--- NOTE | 2020-07-30 15:41 | P.PN ---
Subjective Progress Note Date: 07/30/20 CHIEF COMPLAINT: Shortness of breath HISTORY OF PRESENT ILLNESS: Patient currently in the ICU and on mechanical ventilation. He has been on the vent since 07/05/2020. He has acute hypoxic respiratory failure due to COVID-19 pneumonia. Patient is status post tracheostomy and PEG tube placement on 07/21/20. However, patient's PEG tube did get plugged. He is now status post PEG tube replacement on 07/26/2020. He is tolerating tube feedings. Patient is having purulent drainage from the tracheostomy site. This has been sent for culture. He did have a T-max of 101.1 his temperature now is 99.4. WBC 0.2 Patient seen and examined with Dr. Mcdowell PHYSICAL EXAM: VITAL SIGNS: Reviewed. GENERAL: Well-developed in no acute distress. HEENT: Head is atraumatic, normocephalic. Tracheostomy site with purulent drainage ABDOMEN: Soft. Nondistended. Nontender. PEG tube site clean dry and intact NEUROLOGIC: Intubated ASSESSMENT: 1. Acute hypoxic respiratory failure secondary to acute COVID-19 pneumonia with prolonged mechanical ventilation. Status post tracheostomy placement 2. Severe Protein calorie malnutrition status post PEG tube placement PLAN: -Continue PEG tube feedings -Continue ICU management -Continue supportive care -Continue to monitor tracheostomy site Physician Flag Maker note has been reviewed by physician. Signing provider agrees with the documented findings, assessment, and plan of care. Objective - Vital Signs Vital signs: Vital Signs Temp 99.4 F 07/30/20 12:00 Pulse 104 H 07/30/20 14:00 Resp 21 07/30/20 14:00 BP 161/95 07/30/20 14:00 Pulse Ox 96 07/30/20 14:00 Intake & Output 07/29/20 07/30/20 07/30/20 18:59 06:59 18:59 Intake Total 961 1092 878 Output Total 1290 850 810 Balance -329 242 68 Weight 104.5 kg 104.5 kg Intake: IV 55 60 140 0.9 Normal Saline 55 60 40 Potassium Chloride 10 meq 100 In Water For Injection 1 100ml.bag @ 100 mls/hr IVPB Q1H [facility] Rx#: [id number] Intake, IV Titration 100 Amount Anidulafungin 100 mg In 100 Sodium Chloride 0.9% 100 ml @ 84 mls/hr IVPB DAILY [facility] Rx#:[id number] Tube Feeding 396 432 288 Other 410 600 450 Output: Urine 1290 850 810 Other: Voiding Method Indwelling Catheter Indwelling Catheter # Bowel Movements 1 ABP, PAP, CO, CI - Last Documented Arterial Blood Pressure 118/64 - Labs CBC & Chem 7: 07/30/20 03:44 07/30/20 03:44 Labs: Abnormal Lab Results - Last 24 Hours (Table) 07/29/20 07/29/20 07/30/20 Range/Units 17:48 23:39 03:44 WBC 0.2 L* (3.8-10.6) k/uL RBC 2.28 L (4.30-5.90) m/uL Hgb 7.2 L (13.0-17.5) gm/dL Hct 21.1 L (39.0-53.0) % RDW 16.5 H (11.5-15.5) % Plt Count 113 L (150-450) k/uL ABG pH (7.35-7.45) ABG Total CO2 (19-24) mmol/L ABG O2 Saturation (94-97) % Sodium (137-145) mmol/L Chloride (98-107) mmol/L BUN (9-20) mg/dL Creatinine (0.66-1.25) mg/dL Glucose (74-99) mg/dL POC Glucose (mg/dL) 145 H 128 H (75-99) mg/dL Total Bilirubin (0.2-1.3) mg/dL AST (17-59) U/L ALT (4-49) U/L Alkaline Phosphatase (38-126) U/L Total Protein (6.3-8.2) g/dL Albumin (3.5-5.0) g/dL 07/30/20 07/30/20 07/30/20 Range/Units 03:44 05:22 05:44 WBC (3.8-10.6) k/uL RBC (4.30-5.90) m/uL Hgb (13.0-17.5) gm/dL Hct (39.0-53.0) % RDW (11.5-15.5) % Plt Count (150-450) k/uL ABG pH 7.46 H (7.35-7.45) ABG Total CO2 27 H (19-24) mmol/L ABG O2 Saturation 99.0 H (94-97) % Sodium 147 H (137-145) mmol/L Chloride 111 H (98-107) mmol/L BUN 153 H* (9-20) mg/dL Creatinine 3.93 H (0.66-1.25) mg/dL Glucose 131 H (74-99) mg/dL POC Glucose (mg/dL) 138 H (75-99) mg/dL Total Bilirubin 3.5 H (0.2-1.3) mg/dL AST 129 H (17-59) U/L ALT 148 H (4-49) U/L Alkaline Phosphatase 203 H (38-126) U/L Total Protein 5.1 L (6.3-8.2) g/dL Albumin 2.7 L (3.5-5.0) g/dL 07/30/20 Range/Units 11:49 WBC (3.8-10.6) k/uL RBC (4.30-5.90) m/uL Hgb (13.0-17.5) gm/dL Hct (39.0-53.0) % RDW (11.5-15.5) % Plt Count (150-450) k/uL ABG pH (7.35-7.45) ABG Total CO2 (19-24) mmol/L ABG O2 Saturation (94-97) % Sodium (137-145) mmol/L Chloride (98-107) mmol/L BUN (9-20) mg/dL Creatinine (0.66-1.25) mg/dL Glucose (74-99) mg/dL POC Glucose (mg/dL) 130 H (75-99) mg/dL Total Bilirubin (0.2-1.3) mg/dL AST (17-59) U/L ALT (4-49) U/L Alkaline Phosphatase (38-126) U/L Total Protein (6.3-8.2) g/dL Albumin (3.5-5.0) g/dL Microbiology - Last 24 Hours (Table) 07/28/20 11:45 Blood Culture - Preliminary Blood No Growth after 48 hours 07/29/20 19:47 Gram Stain - Preliminary Sputum Sputum Culture - Preliminary 07/26/20 22:06 Blood Culture - Preliminary Blood No Growth after 72 hours 07/28/20 11:55 Urine Culture - Preliminary Urine,Voided Yeast species
--- NOTE | 2020-07-30 15:52 | PN ---
PROGRESS NOTE DATE OF SERVICE: 07/30/2020 REASON FOR FOLLOWUP: UTI and trach site cellulitis. INTERVAL HISTORY: The patient did spike another fever of 101 degrees Fahrenheit around midnight. The patient is afebrile since then. The patient is hemodynamically stable not on pressor support. The patient noticed to have significant purulent drainage from the trach site that has been cultured but nothing from the trach tubing site. Patient's FiO2 is currently at 30%. Has been tolerating his tube feeds. There has been no episode of loose stool noticed today. PHYSICAL EXAMINATION: Blood pressure 161/95 with a pulse of 104, temperature 99.4. He is 96% on 30% FiO2. General description is middle-aged male lying in bed in no distress. RESPIRATORY SYSTEM: Unlabored breathing, clear to auscultation anteriorly. HEART: S1, S2. Regular rate and rhythm. ABDOMEN: Soft, no tenderness. LABS: Hemoglobin 7.2, white count 0.2, BUN of 153, creatinine 3.93. DIAGNOSTIC IMPRESSION AND PLAN: Patient with fever, source is multifactorial in this patient with concern for urinary tract infection. The Silva catheter has been changed showing a yeast covered with Eraxis. The patient now with a new fever and did have some purulent drainage around his trach site which has been cultured. We will add cefepime while waiting for the culture to finalize. Case was discussed with the Oncology [employer] to make sure antibiotic was not responsible for the leukopenia the patient is currently for and they were okay for starting antibiotics. MMODL / IJN: [id number] /
[2020-07-30 16:47] LABS: Glucose,Whole Blood 145 mg/dL (75-99)
[2020-07-30] MEDS: FILGRASTIM-SNDZ 480 MCG/0.8 ML SYRINGE SQ SCH (17:56)
--- NOTE | 2020-07-30 19:10 | P.PN ---
Subjective Progress Note Date: 07/30/20 Principal diagnosis: Pancytopenia platelets decreased, spoke to ID today. ok to restart antibiotics, continue to monitor for DIC Objective - Vital Signs Vital signs: Vital Signs Temp 99.0 F 07/30/20 08:00 Pulse 109 H 07/30/20 10:00 Resp 27 H 07/30/20 10:00 BP 136/89 07/30/20 10:00 Pulse Ox 96 07/30/20 10:00 Intake & Output 07/29/20 07/30/20 07/30/20 18:59 06:59 18:59 Intake Total 961 1092 464 Output Total 1290 850 350 Balance -329 242 114 Weight 104.5 kg Intake: IV 55 60 120 0.9 Normal Saline 55 60 20 Potassium Chloride 10 meq 100 In Water For Injection 1 100ml.bag @ 100 mls/hr IVPB Q1H [facility] Rx#: [id number] Intake, IV Titration 100 Amount Anidulafungin 100 mg In 100 Sodium Chloride 0.9% 100 ml @ 84 mls/hr IVPB DAILY [facility] Rx#:[id number] Tube Feeding 396 432 144 Other 410 600 200 Output: Urine 1290 850 350 Other: Voiding Method Indwelling Catheter Indwelling Catheter # Bowel Movements 1 ABP, PAP, CO, CI - Last Documented Arterial Blood Pressure 118/64 - Exam Trach to ventilator Critically ill Multiple areas of eccymosis/lines Catheter with urine Peg tube CDI Ext: Edema - Labs CBC & Chem 7: 07/30/20 03:44 07/30/20 03:44 Labs: Abnormal Lab Results - Last 24 Hours (Table) 07/29/20 07/29/20 07/29/20 Range/Units 05:00 11:07 17:48 WBC (3.8-10.6) k/uL RBC (4.30-5.90) m/uL Hgb (13.0-17.5) gm/dL Hct (39.0-53.0) % RDW (11.5-15.5) % Plt Count (150-450) k/uL Haptoglobin 266.0 H (31.2-198.0) mg/dL ABG pH (7.35-7.45) ABG Total CO2 (19-24) mmol/L ABG O2 Saturation (94-97) % Sodium (137-145) mmol/L Chloride (98-107) mmol/L BUN (9-20) mg/dL Creatinine (0.66-1.25) mg/dL Glucose (74-99) mg/dL POC Glucose (mg/dL) 129 H 145 H (75-99) mg/dL Total Bilirubin (0.2-1.3) mg/dL AST (17-59) U/L ALT (4-49) U/L Alkaline Phosphatase (38-126) U/L Total Protein (6.3-8.2) g/dL Albumin (3.5-5.0) g/dL 07/29/20 07/30/20 07/30/20 Range/Units 23:39 03:44 03:44 WBC 0.2 L* (3.8-10.6) k/uL RBC 2.28 L (4.30-5.90) m/uL Hgb 7.2 L (13.0-17.5) gm/dL Hct 21.1 L (39.0-53.0) % RDW 16.5 H (11.5-15.5) % Plt Count 113 L (150-450) k/uL Haptoglobin (31.2-198.0) mg/dL ABG pH (7.35-7.45) ABG Total CO2 (19-24) mmol/L ABG O2 Saturation (94-97) % Sodium 147 H (137-145) mmol/L Chloride 111 H (98-107) mmol/L BUN 153 H* (9-20) mg/dL Creatinine 3.93 H (0.66-1.25) mg/dL Glucose 131 H (74-99) mg/dL POC Glucose (mg/dL) 128 H (75-99) mg/dL Total Bilirubin 3.5 H (0.2-1.3) mg/dL AST 129 H (17-59) U/L ALT 148 H (4-49) U/L Alkaline Phosphatase 203 H (38-126) U/L Total Protein 5.1 L (6.3-8.2) g/dL Albumin 2.7 L (3.5-5.0) g/dL 07/30/20 07/30/20 Range/Units 05:22 05:44 WBC (3.8-10.6) k/uL RBC (4.30-5.90) m/uL Hgb (13.0-17.5) gm/dL Hct (39.0-53.0) % RDW (11.5-15.5) % Plt Count (150-450) k/uL Haptoglobin (31.2-198.0) mg/dL ABG pH 7.46 H (7.35-7.45) ABG Total CO2 27 H (19-24) mmol/L ABG O2 Saturation 99.0 H (94-97) % Sodium (137-145) mmol/L Chloride (98-107) mmol/L BUN (9-20) mg/dL Creatinine (0.66-1.25) mg/dL Glucose (74-99) mg/dL POC Glucose (mg/dL) 138 H (75-99) mg/dL Total Bilirubin (0.2-1.3) mg/dL AST (17-59) U/L ALT (4-49) U/L Alkaline Phosphatase (38-126) U/L Total Protein (6.3-8.2) g/dL Albumin (3.5-5.0) g/dL Microbiology - Last 24 Hours (Table) 07/29/20 19:47 Gram Stain - Preliminary Sputum Sputum Culture - Preliminary 07/26/20 22:06 Blood Culture - Preliminary Blood No Growth after 72 hours 07/28/20 11:55 Urine Culture - Preliminary Urine,Voided Yeast species 07/28/20 11:45 Blood Culture - Preliminary Blood No Growth after 24 hours Assessment and Plan (1) Pancytopenia Current Visit: Yes Status: Acute Code(s): D61.818 - OTHER PANCYTOPENIA SNOMED Code(s): 017311836 (2) Pneumonia due to COVID-19 virus Current Visit: Yes Status: Acute Code(s): U07.1 - COVID-19; J12.82 - Pneumonia due to coronavirus disease 2019 SNOMED Code(s): 654161022811095194 Plan: Assessment and Recommendations: Pancytopenia: - Secondary to chronic Illness and bone marrow suppression - Monitor for DIC in acute illness/recurrent infections - Transfuse PRBC hemoglobin less than 7, platelets less than 10/[id number] today Leukopenia:[employer], Will begin growth factor with close monitoring of CBC with differential - ANC increased, decrease lymph (COVID) - MOnitor if ANC continues to rise but WBC total remains low, stop Growth factor Continue on anti-coagulation if no visible bleeding/platelets greater than 50K COVID Pneumonia and Complications: - Per the care of ICU.
[2020-07-30] MEDS: SODIUM CHLORIDE 0.9% 1,000 ML IV SCH (19:34)
[2020-07-30] MEDS: CEFEPIME 1 GM in SODIUM CHLORIDE 0.9% 50 ML IVPB SCH (20:20)
[2020-07-30 23:41] LABS: Glucose,Whole Blood 126 mg/dL (75-99)
--- NOTE | 2020-07-31 01:05 | P.PN ---
Subjective This is a pleasant 53 years old male with past medical history of hypertension, osteoarthritis, sleep apnea. Presents with respiratory distress secondary to covid pneumonia and secondary bacterial infection is suspected as well with positive sputum culture for streptococcus, group C. Currently remains on ceftriaxone per ID team. Patient has prolonged course in the ICU. He was on mechanical ventilation and need a small dose of Levophed at the beginning , Also patient has elevated troponin and he was started on heparin drip however he developed coffee-ground emesis via anicteric tube, heparin drip was stopped and hemoglobin is stable and his hit antibodies came back positive, [employer] found to his elevated troponin is secondary to his Covid infection and hypotension, he was started on argatroban drip for suspected left hand ischemia . Currently he kept on aspirin one 50 mg rectally daily, with no any anticoagulation, Eliquis is held for PEG tube placement His renal function worsened at certain point needing hemodialysis due to his Covid infectionl, nonoliguric. Currently he is off dialysis Receiving nutrition through TPN, and scheduled for PEG tube placement today Plan for him was to go to LTAC wants PEG tube was placed and functional Patient is currently on eraxis, he is also on dexamethasone , Lasix IV 80 mg twice daily, Protonix 40 mg IV twice macey I called his medical insurance provider [employer] at [phone] extension [phone] at 2 PM, however the midline was 2 PM today , of physicians were busy per staff and they said they will call me tomorrow 8:30-8:40 5 AM, I provided my cell phone to [employer] 07/27/2020 Patient remains in the ICU, his vent dependent. Status post tracheostomy. He got his PEG tube yesterday and start tube feeding today.. Associated with leukopenia He tolerated that well so far per ICU nurse. His postoperative go to LTAC tomorrow if he was going to be stable however he is a spiking temperature last night and today 101.9 Labs today showing leukopenia with ellipses 0.6, hemoglobin stable 8.2 as well as platelets 148 k. . Glucose control, creatinine 3.6 which is a stable over the last 10 days. inflammatory markers still elevated but stable with ferritin is 35. Total jennifer irubin is 3.4, liver enzymes mildly elevated with AST 79 and AFP 115, C-reactive protein is elevated at 14.9 Chest x-ray showing bilateral multifocal opacity most prominent in the apices and bases on background low lung volume consistent with COVID-19 infection. No interval change from one day earlier Currently patient kept on Eraxis, ceftriaxone. Also she is on dexamethasone 4 mg IV daily, Lasix 80 mg IV daily. Today I did appear to be with Dr. Johnson from [facility], unfortunately she rejected the case stating there is no documentation of weaning. I tried to explain to her that usually we do a sedation holiday and weaning trial prior to any tracheostomy under the care of critical care team however she was asking where in the chart documented, it was difficult to locate documentation about weaning trial in this patient with more than 3 weeks hospital stays and in a few minutes over the phone, eventually she ejected the case as above. Discussed with social work coordinator 07/28/2020 Patient remains in the ICU on mechanical ventilation with pulmonary/critical care team help with vent management Patient hemodynamically stable Labs showing leukopenia 0.2K, hemoglobin is 6.5 and platelets 108, after 1 unit of blood transfusion hemoglobin went up to 7.3 and platelet with a 3. Creatinine is 3.9, compared to 3.[address] of the brain showing evolving subacute hemorrhagic infarct of the right frontal lobe shows no significant interval change 1 unit of blood is ordered today. Hematology team consulted for severe leukopenia and throughout its due to his severe critical illness and bone marrow suppression and continue the current management and transfuse as needed further recommendations Currently patient kept on Eraxis, Also she is on dexamethasone 4 mg IV daily, Lasix 80 mg IV daily. Ceftriaxone was discontinued today With the help of the social work coordinator, today signed a letter to his medical insurance provider to approve for his LTAC transfer, the patient was sent today, explaining that LTAC is the main way to treat him , Also as per my discussion with social work coordinator Ryan, critical care team also will try to contact Lynn 07/29/2020 Patient remains in the ICU on mechanical ventilation with pulmonary/critical care team on the case Patient is currently on erxis for fungal UTI. filgastrim was added for severe leukopenia of 0.2 and we'll monitor response Despite history of subacute hemorrhagic infarct, patient is a started on Lovenox for DVT prophylaxis and aspirin 300 mg by pulmonary and cardiology teams, we'll keep monitoring her closely. 07/30/2020 07/13/2020 Patient remains in the ICU on mechanical ventilation with pulmonary/critical care team on the case Patient still has low-grade fever of 99.9 today. He is Tachypneic and tachycardic but blood pressure is stable. Still has significant leukopenia with WBC of 0.2 number hemoglobin 7.2 she is stable. Platelet count 113K. Neurology service signed off today. He remains on Eraxis but because of his persistent fever., Cefepime added today. Infectious disease team of the case Review of systems: N/a Active Medications Generic Name Dose Route Start Last Admin Trade Name Freq PRN Reason Stop Dose Admin Acetaminophen 650 mg 07/26/20 20:36 07/30/20 00:26 Acetaminophen Suppository 650 Mg Supp RECTAL 650 mg Q6HR PRN Administration Fever and/ or Pain Albuterol Sulfate 2 puff 07/05/20 08:00 07/30/20 19:12 Albuterol Hfa Inhaler INHALATION 2 puff RT-TID [facility]UL Administration Aspirin 300 mg 07/29/20 09:00 07/30/20 09:30 Aspirin 300 Mg Supp RECTAL 300 mg DAILY [facility]UL Administration Darbepoetin Rodrigo 40 mcg 07/14/20 11:00 07/28/20 09:44 Darbepoetin Rodrigo 40 Mcg/0.4 Ml Syringe SQ 40 mcg Q7D [facility] Administration Dexamethasone Sodium Phosphate 4 mg 07/27/20 09:00 07/30/20 08:21 Dexamethasone Sod Phosphate 4 Mg/Ml 1 Ml Vial IV 4 mg DAILY [facility]UL Administration Enoxaparin Sodium 30 mg 07/29/20 09:00 07/30/20 08:20 Enoxaparin 30 Mg/0.3 Ml Syringe SQ 30 mg DAILY PR[facility]UL Administration Filgrastim-Sndz 480 mcg 07/29/20 18:00 07/30/20 17:56 Filgrastim-Sndz 480 Mcg/0.8 Ml Syringe SQ 480 mcg DAILY@1800 [facility] Administration Hydromorphone HCl 0.5 mg 07/28/20 11:35 07/29/20 20:38 Hydromorphone 0.5 Mg/0.5 Ml Syringe IVP 0.5 mg Q3HR PRN Administration Pain Sodium Chloride 1,000 mls @ 10 mls/hr 07/22/20 19:30 07/30/20 19:34 Saline 0.9% IV 10 mls/hr .Q24H PRAFUL Administration Anidulafungin 100 mg/ Sodium 130 mls @ 84 mls/hr 07/27/20 09:00 07/30/20 08:21 Chloride IVPB 84 mls/hr DAILY PRAFUL Administration Cefepime HCl 1 gm/ Sodium 50 mls @ 12.5 mls/hr 07/30/20 21:00 07/30/20 20:20 Chloride IVPB 12.5 mls/hr Q12HR [facility]AFUL Administration Insulin Aspart 0 unit 07/11/20 12:00 07/30/20 23:56 Insulin Aspart (Novolog) 100 Unit/Ml Vial SQ Not Given Q6H PRAFUL Protocol Miscellaneous Information 1 each 07/25/20 05:03 Potassium Replacement Protocol 1 Each Misc MISCELLANE DAILY PRN Per Protocol Protocol Pantoprazole Sodium 40 mg 07/05/20 21:00 07/30/20 20:20 Pantoprazole 40 Mg/10 Ml Vial IVP 40 mg BID PRFAUL Administration Objective - Vital Signs Vital signs: Vital Signs Temp 99.4 F 07/30/20 12:00 Pulse 104 H 07/30/20 14:00 Resp 21 07/30/20 14:00 BP 161/95 07/30/20 14:00 Pulse Ox 96 07/30/20 14:00 Intake & Output 07/29/20 07/30/20 07/30/20 18:59 06:59 18:59 Intake Total 961 1092 878 Output Total 1290 850 810 Balance -329 242 68 Weight 104.5 kg Intake: IV 55 60 140 0.9 Normal Saline 55 60 40 Potassium Chloride 10 meq 100 In Water For Injection 1 100ml.bag @ 100 mls/hr IVPB Q1H PRAFUL Rx#: [id number] Intake, IV Titration 100 Amount Anidulafungin 100 mg In 100 Sodium Chloride 0.9% 100 ml @ 84 mls/hr IVPB DAILY [facility] Rx#:[id number] Tube Feeding 396 432 288 Other 410 600 450 Output: Urine 1290 850 810 Other: Voiding Method Indwelling Catheter Indwelling Catheter # Bowel Movements 1 ABP, PAP, CO, CI - Last Documented Arterial Blood Pressure 118/64 - Exam -GENERAL: The patient is intubated and sedated, well nourished. HEENT: Pupils are round and equally reacting to light. EOMI. No scleral icterus. No conjunctival pallor. Normocephalic, atraumatic. No pharyngeal erythema. No thyromegaly. CARDIOVASCULAR: S1 and S2 present. No murmurs, rubs, or gallops. PULMONARY: Chest is clear to auscultation, no wheezing or crackles. ABDOMEN: Soft, nontender, nondistended, normoactive bowel sounds. No palpable organomegaly. MUSCULOSKELETAL: No joint swelling or deformity. EXTREMITIES: No cyanosis, clubbing, or pedal edema. NEUROLOGICAL: Gross neurological examination did not reveal any focal deficits. SKIN: No rashes. no petechiae. - Labs CBC & Chem 7: 07/30/20 03:44 07/30/20 03:44 Labs: Abnormal Lab Results - Last 24 Hours (Table) 07/29/20 07/29/20 07/30/20 Range/Units 17:48 23:39 03:44 WBC 0.2 L* (3.8-10.6) k/uL RBC 2.28 L (4.30-5.90) m/uL Hgb 7.2 L (13.0-17.5) gm/dL Hct 21.1 L (39.0-53.0) % RDW 16.5 H (11.5-15.5) % Plt Count 113 L (150-450) k/uL ABG pH (7.35-7.45) ABG Total CO2 (19-24) mmol/L ABG O2 Saturation (94-97) % Sodium (137-145) mmol/L Chloride (98-107) mmol/L BUN (9-20) mg/dL Creatinine (0.66-1.25) mg/dL Glucose (74-99) mg/dL POC Glucose (mg/dL) 145 H 128 H (75-99) mg/dL Total Bilirubin (0.2-1.3) mg/dL AST (17-59) U/L ALT (4-49) U/L Alkaline Phosphatase (38-126) U/L Total Protein (6.3-8.2) g/dL Albumin (3.5-5.0) g/dL 07/30/20 07/30/20 07/30/20 Range/Units 03:44 05:22 05:44 WBC (3.8-10.6) k/uL RBC (4.30-5.90) m/uL Hgb (13.0-17.5) gm/dL Hct (39.0-53.0) % RDW (11.5-15.5) % Plt Count (150-450) k/uL ABG pH 7.46 H (7.35-7.45) ABG Total CO2 27 H (19-24) mmol/L ABG O2 Saturation 99.0 H (94-97) % Sodium 147 H (137-145) mmol/L Chloride 111 H (98-107) mmol/L BUN 153 H* (9-20) mg/dL Creatinine 3.93 H (0.66-1.25) mg/dL Glucose 131 H (74-99) mg/dL POC Glucose (mg/dL) 138 H (75-99) mg/dL Total Bilirubin 3.5 H (0.2-1.3) mg/dL AST 129 H (17-59) U/L ALT 148 H (4-49) U/L Alkaline Phosphatase 203 H (38-126) U/L Total Protein 5.1 L (6.3-8.2) g/dL Albumin 2.7 L (3.5-5.0) g/dL 07/30/20 Range/Units 11:49 WBC (3.8-10.6) k/uL RBC (4.30-5.90) m/uL Hgb (13.0-17.5) gm/dL Hct (39.0-53.0) % RDW (11.5-15.5) % Plt Count (150-450) k/uL ABG pH (7.35-7.45) ABG Total CO2 (19-24) mmol/L ABG O2 Saturation (94-97) % Sodium (137-145) mmol/L Chloride (98-107) mmol/L BUN (9-20) mg/dL Creatinine (0.66-1.25) mg/dL Glucose (74-99) mg/dL POC Glucose (mg/dL) 130 H (75-99) mg/dL Total Bilirubin (0.2-1.3) mg/dL AST (17-59) U/L ALT (4-49) U/L Alkaline Phosphatase (38-126) U/L Total Protein (6.3-8.2) g/dL Albumin (3.5-5.0) g/dL Microbiology - Last 24 Hours (Table) 07/28/20 11:45 Blood Culture - Preliminary Blood No Growth after 48 hours 07/29/20 19:47 Gram Stain - Preliminary Sputum Sputum Culture - Preliminary 07/26/20 22:06 Blood Culture - Preliminary Blood No Growth after 72 hours 07/28/20 11:55 Urine Culture - Preliminary Urine,Voided Yeast species Assessment and Plan Assessment: Acute Covid pneumonia New fever and leukopenia, secondary to fungal UTI. ID team on the case Acute hypoxic respiratory failure needing mechanical ventilation Acute kidney injury needed hemodialysis , currently he is off HD Acute hemorrhagic stroke , right frontal region with mild petechial hemorrhage in the cortical ribbon. AMS secondary to metabolic encephalogpathy and stroke, s/p PEG placement and tracheostomy as he could not be weaned off m.ventilation Suspected ischemia of the left hand on anticoagulation , resolved now Coffee ground vomiting with suspected acute GI bleed Thrombocytopenia secondary to sepsis and heparin induced thrombocytopenia Severe leukopenia secondary to Covid infection Elevated troponin, secondary to renal function impairment, viral infection and hypotension Plan: This is a pleasant 59 years old male who presents with Covid pneumonia, on mechanical ventilation and AMS. Continue with mechanical ventilation for pulmonary/critical care team will follow the patient closely.Continue with multiple vitamin zinc and vitamin D c/w eraxis for UTI and filgastrim for leukopenia GI and cardiology, nephrology , hematology teams on the case aspirin as per neurology team Labs and medication were reviewed.. Continue same treatment. Continue with symptomatic treatment. Resume home medication. Monitor lytes and vitals. DVT and GI prophylaxis. Further recommendations as per clinical course of the patient DVT prophylaxis: eliquis on hold . Continue with DVT prophylaxis as per critical care team, lovenox is added GI Prophylaxis: Ppi, Protonix twice a day Prognosis is guarded The peel was sent to his social work coordinator provider Lynn
[2020-07-31 05:51] LABS: ABG Base Excess 0.8 mmol/L; ABG HCO3 25 mmol/L (21-25); ABG Oxygen Saturation 98.2 % (94-97); ABG PCO2 37 mmHg (35-45); ABG PH 7.44 (7.35-7.45); ABG PO2 104 mmHg (83-108); ABG TCO2 26 mmol/L (19-24); Allen Test Performed? Yes
[2020-07-31 05:54] LABS: Glucose,Whole Blood 131 mg/dL (75-99)
[2020-07-31] MEDS: INSULIN ASPART (NovoLOG) 100 UNIT/ML VIAL SQ SCH ×3 (05:54→19:16)
[2020-07-31 06:03] LABS: Anisocytosis Slight; HCT 22.4 % (39.0-53.0); Hypochromasia Slight; MCH 29.2 pg (25.0-35.0); MCHC 31.2 g/dL (31.0-37.0); MCV 93.4 fL (80.0-100.0); RDW 16.5 % (11.5-15.5)
[2020-07-31 06:09] LABS: WBC 0.2 k/uL (3.8-10.6)
[2020-07-31 06:12] LABS: INR 1.2 (<1.2); Prothrombin Time 12.6 sec (9.0-12.0)
[2020-07-31] MEDS: HYDROmorphone 0.5 MG/0.5 ML SYRINGE IVP PRN (06:25)
[2020-07-31 06:28] LABS: Platelet Count 89 k/uL (150-450)
[2020-07-31 06:29] LABS: Anisocytosis (M) Present
[2020-07-31 06:50] LABS: Albumin 2.6 g/dL (3.5-5.0); Calcium 8.9 mg/dL (8.4-10.2); Potassium 3.8 mmol/L (3.5-5.1); Total Bilirubin 3.8 mg/dL (0.2-1.3)
--- NOTE | 2020-07-31 07:11 | XR ---
EXAMINATION TYPE: XR chest 1V portable DATE OF EXAM: 07/31/2020 COMPARISON: 07/30/2020 HISTORY: Covid TECHNIQUE: Single frontal view of the chest is obtained. FINDINGS: There is a double lumen right-sided central venous catheter the tip of which is in the rig ht atrium unchanged in position. There is a tracheostomy tube. There is a PICC line entering the left arm and terminating There is mild interstitial opacity in the lungs bilaterally which is unchanged. There is no large ple ural effusion. There is no pneumothorax. The osseous structures are intact. Heart size is normal IMPRESSION: No significant interval change
[2020-07-31] MEDS: ALBUTEROL HFA INHALER INHALATION SCH ×3 (08:04→21:43)
[2020-07-31] MEDS: PANTOPRAZOLE 40 MG/10 ML VIAL IVP SCH ×2 (09:07→20:34)
[2020-07-31] MEDS: ENOXAPARIN 30 MG/0.3 ML SYRINGE SQ SCH (09:07)
[2020-07-31] MEDS: DEXAMETHASONE SOD PHOSPHATE 4 MG/ML 1 ML VIAL IV SCH (09:08)
[2020-07-31] MEDS: ASPIRIN 300 MG SUPP RECTAL SCH (09:11)
[2020-07-31] MEDS: CEFEPIME 1 GM in SODIUM CHLORIDE 0.9% 50 ML IVPB SCH ×2 (09:11→20:34)
[2020-07-31] MEDS: ANIDULAFUNGIN 100 MG in SODIUM CHLORIDE 0.9% 100 ML IVPB SCH (09:12)
[2020-07-31] MEDS ORDERED: DEXTROSE 5% IN WATER 1,000 ML IV ONE (10:09)
--- NOTE | 2020-07-31 10:13 | P.PN ---
Subjective Progress Note Date: 07/31/20 Follow-up for acute kidney injury. On dialysis, last hemodialysis on 07/22/2020. Objective - Vital Signs Vital signs: Vital Signs Temp 100.4 F H 07/31/20 09:00 Pulse 94 07/31/20 10:00 Resp 21 07/31/20 10:00 BP 115/83 07/31/20 10:00 Pulse Ox 96 07/31/20 10:00 Intake & Output 07/30/20 07/31/20 07/31/20 18:59 06:59 18:59 Intake Total 1342 1442 285.5 Output Total 1260 1600 350 Balance 82 -158 -64.5 Weight 104.5 kg 105.2 kg Intake: IV 160 110 27.5 0.9 Normal Saline 60 60 15 Cefepime 1 gm In Sodium 50 12.5 Chloride 0.9% 50 ml @ 12. 5 mls/hr IVPB Q12HR [facility] Rx#:[id number] Potassium Chloride 10 meq 100 In Water For Injection 1 100ml.bag @ 100 mls/hr IVPB Q1H [facility] Rx#: [id number] Tube Feeding 432 432 108 Other 750 900 150 Output: Urine 1260 1600 350 Other: Voiding Method Indwelling Catheter Indwelling Catheter ABP, PAP, CO, CI - Last Documented Arterial Blood Pressure 118/64 - Exam Refer to primary team exam COVID-19 isolation - Labs CBC & Chem 7: 07/31/20 05:43 07/31/20 05:43 Labs: Abnormal Lab Results - Last 24 Hours (Table) 07/30/20 07/30/20 07/30/20 Range/Units 03:44 11:49 16:46 WBC (3.8-10.6) k/uL RBC (4.30-5.90) m/uL Hgb (13.0-17.5) gm/dL Hct (39.0-53.0) % RDW (11.5-15.5) % Plt Count (150-450) k/uL PT (9.0-12.0) sec INR (<1.2) ABG Total CO2 (19-24) mmol/L ABG O2 Saturation (94-97) % Sodium (137-145) mmol/L Chloride (98-107) mmol/L BUN (9-20) mg/dL Creatinine (0.66-1.25) mg/dL Glucose (74-99) mg/dL POC Glucose (mg/dL) 130 H 145 H (75-99) mg/dL Total Bilirubin (0.2-1.3) mg/dL AST (17-59) U/L ALT (4-49) U/L Alkaline Phosphatase (38-126) U/L Total Protein (6.3-8.2) g/dL Albumin (3.5-5.0) g/dL Procalcitonin 1.39 H (0.02-0.09) ng/mL 07/30/20 07/31/20 07/31/20 Range/Units 23:40 05:43 05:43 WBC 0.2 L* (3.8-10.6) k/uL RBC 2.40 L (4.30-5.90) m/uL Hgb 7.0 L (13.0-17.5) gm/dL Hct 22.4 L (39.0-53.0) % RDW 16.5 H (11.5-15.5) % Plt Count 89 L (150-450) k/uL PT (9.0-12.0) sec INR (<1.2) ABG Total CO2 (19-24) mmol/L ABG O2 Saturation (94-97) % Sodium 148 H (137-145) mmol/L Chloride 112 H (98-107) mmol/L BUN 152 H* (9-20) mg/dL Creatinine 4.07 H (0.66-1.25) mg/dL Glucose 132 H (74-99) mg/dL POC Glucose (mg/dL) 126 H (75-99) mg/dL Total Bilirubin 3.8 H (0.2-1.3) mg/dL AST 90 H (17-59) U/L ALT 154 H (4-49) U/L Alkaline Phosphatase 208 H (38-126) U/L Total Protein 5.0 L (6.3-8.2) g/dL Albumin 2.6 L (3.5-5.0) g/dL Procalcitonin (0.02-0.09) ng/mL 07/31/20 07/31/20 07/31/20 Range/Units 05:43 05:50 05:52 WBC (3.8-10.6) k/uL RBC (4.30-5.90) m/uL Hgb (13.0-17.5) gm/dL Hct (39.0-53.0) % RDW (11.5-15.5) % Plt Count (150-450) k/uL PT 12.6 H (9.0-12.0) sec INR 1.2 H (<1.2) ABG Total CO2 26 H (19-24) mmol/L ABG O2 Saturation 98.2 H (94-97) % Sodium (137-145) mmol/L Chloride (98-107) mmol/L BUN (9-20) mg/dL Creatinine (0.66-1.25) mg/dL Glucose (74-99) mg/dL POC Glucose (mg/dL) 131 H (75-99) mg/dL Total Bilirubin (0.2-1.3) mg/dL AST (17-59) U/L ALT (4-49) U/L Alkaline Phosphatase (38-126) U/L Total Protein (6.3-8.2) g/dL Albumin (3.5-5.0) g/dL Procalcitonin (0.02-0.09) ng/mL Microbiology - Last 24 Hours (Table) 07/26/20 22:06 Blood Culture - Preliminary Blood No Growth after 96 hours 07/30/20 10:12 Gram Stain - Preliminary Neck Wound Culture - Preliminary 07/28/20 11:55 Urine Culture - Final Urine,Voided Armida albicans 07/30/20 10:12 Anaerobic Culture - Preliminary Neck 07/28/20 11:45 Blood Culture - Preliminary Blood No Growth after 48 hours 07/29/20 19:47 Gram Stain - Preliminary Sputum Sputum Culture - Preliminary Assessment and Plan Assessment: #1 nonoliguric acute kidney injury secondary to Covid 19 pneumonia ATN. Baseline creatinine 0.7 MG per DL. #2 Covid 19 pneumonia on ventilator #3 hyponatremia secondary to decreased by mouth intake #4 septic shock resolved currently off pressors #5 hyperkalemia improved Plan: #1 currently off dialysis, monitor renal function. #2 continue with free water via feeding tube, add D5 water at 75 ML's an hour IV #3 good urine output, avoid diuretics #4 avoid nephrotoxic agents and hypotensive episodes.
[2020-07-31 11:30] LABS: Glucose,Whole Blood 144 mg/dL (75-99)
--- NOTE | 2020-07-31 11:56 | P.PN ---
Subjective Progress Note Date: 07/31/20 Principal diagnosis: Acute hypoxic respiratory failure second to COVId 19 pneumonia The patient is seen today 07/12/2020 in follow-up in the intensive care unit. He remains intubated, sedated on the mechanical ventilator at assist control mode of a rate of 36, tidal volume 450, FiO2 40% and a PEEP of 10. Morning blood gases reveal pO2 of 69, pCO2 41, pH 7.35. He remains sedated on propofol at 60 mcg/kg/m, fentanyl at 1 mcg/kg/h, norepinephrine at 0.09 mcg/kg//min, the patient is currently on 0.9 saline at rate of 50 mL an hour. The patient has been off Nimbex since yesterday. He is continued on Argatroban at 0.5 mcg/kg/m. Being nourished with Nepro at 15 ML's per hour. He did receive hemodialysis yesterday with 1 L removed. Chest x-ray reveals mild bibasilar infiltrates. Sputum cultures positive for beta-hemolytic strep, group C. White count 18.1. Hemoglobin 10.6. Platelet count 141. D-dimer 19.69. Sodium 133. Potassium 4.7. Creatinine 4.14. LDH 1067, C-reactive protein 24. Remains on antibiotics in the form of ceftriaxone. Bronchodilators. Vitamin supplements. Dexamethasone. 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 The platelet count is stable and the platelet count is up to 136. On 07/12/2020, the patient is being seen for follow-up. The patient is a 59-year-old obese male patient with a BMI of 36.2 with known history of obstructive sleep apnea, presented with COVID 19 related pneumonia patient is currently intubated on a mechanical ventilator. The patient has been on a mechanical ventilator since 07/05/2020. 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 During the course of his treatment, the patient developed an acute kidney injury secondary to ATN secondary to "with 19 infection. Urine output was improving and the patient's urine output was in order of 20-25 mL an hour. Due to persistent hyperkalemia and worsening renal function, the patient was started on hemodialysis on 07/10/2020. The potassium level improved post-hemodialysis. The patient also had significant metabolic acidosis and the patient was given bicarb infusion. Electrolytes are being monitored. The patient got dialyzed yesterday and this was his second hemodialysis. Nephrology is on the case. He is currently on Decadron 6 mg IV every 24 hours. His chest x-ray is showing patchy by the pulmonary infiltrates in lower lobes, slightly worsening in the chest x-ray findings on today's evaluation mainly in the peripheries and ET tube is in a good location. The patient remains on a mechanical ventilator assist control mode. He is on Nepro at 60 mL an hour. 07/13/2020, I'm seeing this patient for a follow-up. This is a case of a 59-year-old male patient with Covid 19 related pneumonia and acute kidney injury currently on hemodialysis. Worn-out, the patient is sedated and this morning the patient is currently on propofol running at 6 60 mcg/kg per minute and fentanyl is running at 1 mcg/kg/h and this is the same sedation it was being provided yesterday. The patient is on no paralytics for now. The patient is on a mechanical ventilator, on this morning's evaluation, he is on assist-control at the rate of 28 with a tidal volume of 450 and FiO2 of 50% and PEEP is 10. Blood gases from today showing a pH of 7.37 with a pCO2 of 47 and pO2 of 63. Chest x-ray from today is showing diffuse bilateral pulmonary infiltrates more so in the lower lobes bilaterally. ET tube is in a good location. Comparing this chest x-ray from yesterday, there is no major interval change in the findings are essentially stable. His peak airway pressures 28. His static pressures 24. The patient is is still on Decadron 6 mg IV every 24 hours. D- dimer today's at 13.3, his LDH level is at 1021 and the CRP is at 4.6. Note that his inflammatory markers essentially compatible to yesterday. His echoes at 13.7 with a hemoglobin of 9.2. Platelet count is 112. I took the patient off Agratoban and he was also placed on Eliquis at a dose of 5 mg by mouth twice a day. Noted the patient also is an acute kidney injury. The patient underwent dialysis and the spot he has taken 3 sessions of hemodialysis. He is producing urine output in the order of 20-30 mL an hour. His last session of hemodialysis was yesterday. In terms of his electrolytes, his BUN is at 80 with a creatinine of 3.5 and a sodium of 132 with a potassium of 4.4. He is currently on enteral feeding for dizziness support and is currently on Nepro at the rate of 50 mL an hour. He is currently off Rocephin. He is afebrile. He is requiring low-dose pressors were norepinephrine 30 dose of 0.03 mcg/kg per minute. Otherwise, no other significant events. He is afebrile. Sedation holiday was not done yesterday. IV fluids are running at 0.9 at the rate of 50 mL an hour. 07/14/2020, patient is being seen for follow-up. Sedated and still on a mechanical ventilator, probable resolving. 60 mcg/kg per minute and the patient is also on fentanyl at 1 mcg/kg/h. Adequately sedated. On a mechanical ventilator essentially vent settings being at tidal volume of 450 with an FiO2 of 50% and a PEEP of 10 and a rate of 28. These are essentially the same settings as yesterday. As far as blood gases, pO2 is at 79 with a pCO2 of 45 and a pH is at 7.35. He d-dimer is at 9.42 and the rest of the inflammatory markers show an LDH of 1062 which is stable compared to yesterday and a CRP of 87, slightly elevated compared to yesterday. His CPK is down to 231. His pro calcitonin level was at 0.58 and note that the patient has dialysis-dependent renal failure. As far as his creatinine, his creatinine today is at 3.97 with a mean of 96. He did not receive dialysis yesterday. His urine output is in order of 30-40 mL an hour and the fluid balance has been +1.1 L over the past 24 hours. His chest x-ray from today is showing lower lobe pulmonary infiltrates, essentially stable compared to yesterday. ET tube remains in excellent location. IV fluids are running at 20 cc an hour of normal saline. He is afebrile. He is tolerating his enteral feeding for nutritional support. Norepinephrine infusion which is running at 0.05 mcg/kg per minute. He remains on Decadron 6 mg IV every 24 , platelet count is stable at 121 and 11 avoiding heparin. Patient holiday yesterday was ultimately aborted as the patient became quite agitated after several hours without any meaningful neurological response. 07/15/2020, the patient is being seen for a follow-up. Sedated with propofol running at 60 mcg/kg per minute and fentanyl is at 1 mcg/kg/h and the level of sedation essentially the same as yesterday. Remains on a mechanical ventilator. He is an assist-control mode at the rate of 24 with a tidal volume of 450 and a PEEP of 8 with a FiO2 of 50%. He had a blood gas showing pH of 7.33 with a pCO2 of 46 and pO2 of 73. Chest x-ray is unchanged, probably slightly worse on the left in terms of that the patient is seeing on today's chest x-ray. ET tube remains in a good location. Inflammatory markers from today show a d-dimer of 9 with a LDH level of 1061 and a CRP of 78, comparable to yesterday. His pro calcitonin level was low. He got dialyzed yesterday. I attempted to wean down the PEEP to 6 and this was not successful and the patient desaturated in the P EEP was brought back up to 8 yesterday. Meanwhile, he is afebrile. He is producing urine output in the order of 20-30 mL an hour. He is on normal saline at the rate of 20 mL an hour. He remains on Decadron 6 mg IV to 24 hours. His platelet count is 132 which is essentially stable and improved compared to yesterday. In terms of pressors, the patient is currently on norepinephrine infusion at 0.04 mcg/kg per minute. I will today's condition essentially unchanged and his condition essentially the same as compared to yesterday 07/16/2020, remains on a mechanical ventilator on propofol at the rate of 60 mcg/kg per minute and fentanyl is at 2 mcg/kg/h. He remains off paralytics. At around 6:00 this morning, the patient had some oxygen desaturation. Based on that, I increased his FiO2 up to 60%. Currently is an assist-control mode rate of 28 with a tidal volume of 450 and a PEEP of 8 chest x-ray still showing diffuse bilateral pulmonary infiltrates left more than right. The blood gas shows a pH of 7.31 with a pCO2 of 45 and pO2 of 68. This was on FiO2 of 70%. Inflammatory markers show a d-dimer of 9.9 with a LDH level of 1103 and a CRP level of 62. The patient is on Decadron 6 mg IV every 24 hours. The patient is also on anticoagulation with Eliquis 2.5 mg by mouth twice a day. His platelet counts is 135. The chest x-ray findings are obviously worse and there is some worsening in the evaluation in the right lung compared to yesterday. Note that the patient did not get dialyzed yesterday. Today is a dialysis day for him. He is also on norepinephrine infusion running at 0.08 mcg/kg per minute. There is enough to maintain his blood pressure. He is receiving enteral feeding for discharge support and currently is on Nepro at a rate of 50 mL an hour which is currently at goal. No other significant events. Is adequately sedated for now. 07/17/2020, the patient is being seen for a follow-up. This morning he is on a combination of propofol and fentanyl running at 60 mics for propofol and 1 g for fentanyl. He was given a sedation holiday and she was able to tolerate initiated subsequently he decompensated and became hypoxic and he had to be placed back on sedation. Noted the patient became asynchronous. This morning, he is back on a mechanical ventilator mode at the rate of 28 with a tidal volume of 450 and her FiO2 is at 60% with a PEEP of 8. He underwent dialysis yesterday with a total of 2 liters of ultrafiltration. Note that he was able to tolerated dialysis without any major issues. He is on a minimal dose of norepinephrine infusion running at 0.06 mcg/kg per minute for blood pressure control. On today's evaluation, peak air pressures around 27. The blood gases from today shows a pH of 7.29 with a pCO2 of 40 and pO2 of 99 and this was on FiO2 of 60%. As mentioned, his PEEP is at 8. Chest x-ray still showing diffuse breath and pulmonary infiltrates unchanged without any major interval improvement or worsening. White cell count is at 50 with a hemoglobin of 8.2. Creatinine is at 3.4 and a urine output is in order of 30 mL an hour. No plans for hemodialysis today. He is receiving enteral feeding for nutritional support with Nepro at the rate of 50 mL an hour. He is stooling. Still sedation dependent. Unable to wean him off sedation because of a 6 and mean oxygen desaturations. I have approach the and the family with a possibility of ainsertion of a tracheostomy tube and a PEG tube for prolonged need of mechanical ventilation and failure for weaning. The patient has been intubated since 07/05/2020. The inflammatory markers from today shows an LDH level of 889, CRP is at 6 and the d-dimer is at 6.05. The patient has palpable pulses in his left upper extremity. She of his fingers are necrotic and the tip including the index, the platelet counts are stable and the patient is currently on Eliq uis 2.5 mg by mouth twice a day. Or 2020, the patient remains sedated with a combination of propofol and fentanyl running at 50 mcg/kg per minute for propofol and 1 mcg/kg per hour for fentanyl. He is sedated. In fact is deeply sedated. We are going to proceed with a sedation holiday on this patient today. He remains on a mechanical ventilator. He remains on a assist-control rate of 28, tidal volume of 450, FiO2 of 50% with a PEEP of 8. Attempts to wean the PEEP further failed and the patient became more hypoxic. As such, the patient is living At 8. This patient is a 7.26 with a pCO2 of 48 and pO2 of 71 today's blood gas. His chest x-ray showing stable bilateral pulmonary infiltrates essentially involving the lower lobes. ET tube is in a good location. Note that the patient is producing urine output in the order of 8200 mL an hour. His net fluid balance over the past 24 hours has been -83 mL. He has had a with a positive fluid balance for today. The findings on the case. The intent of the dialysis 3 times a week. His last dialysis was done on Sunday which is 2 days ago. His creatinine is up to 3.7 with a BUN of 84. Rest of the electrolytes are normal. Affect is running a lower sodium level of 1:30 with a potassium level of 4.1. Serum bicarbs at 20. In terms of his COVID-19 related pneumonia, the patient has a LDH level of 855, CRP level of 5.2 and his most recent d-dimer is at 5.4. He remains on steroids and he is on Decadron 6 mg IV every 24 hours. He did have a component of hit syndrome. This was related to heparin. He did receive Agratroban was ultimately discontinued once the patient's stated count picked up and it's platelet count is currently at 129. He does have necrotic fingers in his left upper extremity. Adequate pulses in the radial. No new vascular insults noted on today's examination. He is receiving enteral feeding for nutritional support and is currently on Nepro at the rate of 10 mL an hour. He is stooling. He is on Rocephin for strep in history of the blood cultures on 2 separate occasions. Otherwise, the blood cultures positive for coagulase-negative staph. Patient was reevaluated today on 07/19/2020, remains intubated and mechanically ventilated, he is off sedation and he is not showing any signs of neurological not responding to any stimuli. Patient is on assist control rate of 24th of volume 450 FiO2 50% and PEEP of 6. ABG showed a pO2 of 81 pCO2 41 pH of 7.31 patient is on enteral feeding. And he may undergo dialysis. We plan to have a tracheostomy and PEG tube placement in this patient, and he is basically a failure to wean. Today the sedation is placed on hold. Chest x-ray continues to show bilateral pulmonary infiltrates involving lower lobes. Endotracheal tube is in the proper position. Patient is making good urine, however his renal functioning seems to be getting worse. Electrolytes are normal. BUN is 91 creatinine 4.51 LDH is 893 liver enzymes are borderline elevated, C-reactive protein is 4.2 d-dimer 6.68. WBC count is 9.1 hemoglobin is 8.9 On 07/20/2020 patient seen in follow-up in intensive care unit, he was given daily traction of sedation yesterday, and his sedation was on hold for several hours and the patient never woke up over open his eyes or follow any commands, and as the day went on he started breathing fast, started desaturated and get agitated and was he was placed back on sedation on which she remains today, currently on Diprivan at 40 mics per kilo per minute, and fentanyl infusion at 1 mics per kilo per minute, and levo fed has been discontinued, he is on assist- control mode of ventilation with assist control rate of 24, tidal volumes of 4 50, FiO2 of 50% and PEEP of 6, this morning's blood gas shows pO2 of 92, pCO2 42, and pH is 7.32. He is in sinus mechanism, slightly tachycardic, his tube feedings are currently on hold in case of possibility of tracheostomy and PEG tube insertion however were still awaiting a response from his family on the decision in regards to proceeding with trach and PEG placement, today he is receiving hemodialysis treatment, and a 3 L in fluid was removed today. In terms of urine output he has been making urine in the order of 50-70 ML per hour, he remains on Lasix 80 mg twice daily, he remains on Rocephin for evidence of a beta-hemolytic strep in the sputum cultures, his follow-up sputum culture only showed Armida. History of resting comfortably in bed, he remains on IV dexamethasone 6 mg daily, has been off the levofed. Breasts labs have been reviewed, his white blood cell count is 8.1, hemoglobin is 8.1, his platelet count is 126, d-dimer is 13.3, sodium is 133, potassium 3.7, his renal function is relatively stable, with BUN of 82, and creatinine 4.51. These LDH is 792, CRP is 48. His had no acute events overnight, we spoke to his daughter yesterday in regards to patient's condition, and to discuss tracheostomy and PEG tube insertion, awaiting response from the family on their decision and the daughter indicated that patient had poor quality of life to start with and the were not sure if the workup and consent to the trach and PEG On 07/21/2000 patient seen in follow-up in the intensive care unit, yesterday he tolerated 11 hours of sedation holiday, and he was starting to follow simple commands, however is that day went on he was becoming more agitated and tachypneic, and he was placed back on sedation, currently on Diprivan at 40 mics per kilo per minute, and 0.9 at KVO, he remains intubated, on assist control mode of ventilation, with a rate of 24, Tylox 450, FiO2 of 50% and PEEP of 6, this morning's blood gases show pO2 133, pCO2 of 41, and pH is 7.38. Patient is resting comfortably, appears to be in no acute distress, he is not on any vasoactive drugs, no vasopressors, she is in sinus rhythm sinus tach with a rate of 90-106 BPM, hemodialysis treatment this morning, and attended have liters of fluid was taken off, his vital signs have been stable overnight, no fever or chills, lung sounds are diminished. She also remains on IV Lasix 80 mg twice da waylon, patient is producing urine in the order of 30-60 ML per hour, and she is in -4.1 L over the last 24 hours with additional -2.49 fluid balance since midnight last night. Chest x-ray shows interval improvement in bilateral airspace infiltrates particularly within the right upper lobe. Today's labs have been reviewed, showing white blood cell count 7.1, hemoglobin of 7.4, platelet count is 120, sodium is 130, potassium is 3.2, chloride is 104, CO2 of 23, BUN of 75 and creatinine of 4.01. Patient remains on Rocephin for beta-hemolytic strep in the sputum, repeat culture of the sputum showed only Armida. He is tolerating tube feedings which are on hold for tracheostomy and PEG tube placement which is scheduled for today. On 07/22/2020 patient seen in follow-up in intensive care unit, he remains sedated and trach to the ventilator, on assist-control mode of ventilation with a rate of 24, her lungs were 50, FiO2 50% and PEEP of 6, his blood gas shows pO2 of 169, pCO2 40, pH of 7.36, patient is currently on Diprivan at 55 mics per kilo per minute, he is on 0.9 normal saline at 10 ML per hour, Levophed that he is at 0.02 mics per kilo per minute. Patient is having hemodialysis treatment right now. Patient received tracheostomy and PEG tube yesterday. His hemodialysis access was switched to right subclavian approach. He still has a central line in his groin which will need to be switched to a PICC line. Today's chest x-ray showed bilateral multifocal and confluent opacities consistent with COVID-19 infection with no significant interval change. Vital signs have been stable, his sat 98% on the above mentioned settings, requiring small dose of Levafed. 2 feedings will be started sometime today, he is on Rocephin for evidence of 5 beta-hemolytic strep in the sputum, follow-up sputum culture only showed Armida albicans. She had no acute events overnight. He re leonila on Decadron 6 mg daily, he is Eliquis will be started tonight if it's okay with surgery. No other acute events overnight, and -2.4 L fluid balance over the last 24 hours. He does remains generally swollen. On 07/23/2020 patient seen in follow-up, in the intensive care unit, patient received tracheostomy and PEG tube insertion on 07/21/2020, he remains trached to the ventilator and is currently on assist control mode of ventilation with a rate of 24, tacrolimus 450, FiO2 45% and PEEP of 5, this morning's blood gas shows pO2 of 149, pCO2 of 43, and pH of 7.39, he was given a sedation holiday yesterday, however he did not wake up or start following commands, neurology completed a brain CT which showed decreased attenuation within the high right frontal lobe without cortical increased attenuation which could reflect petechial hemorrhage, patient is currently not on any anticoagulation, is Eliquis has been on hold since 07/19/2020 at 11:00 in the morning. His hemoglobin today 7.4, his platelet count is 115, his d-dimer is currently is 8.18 on this morning's labs. Patient is not on any aspirin, or Plavix or any other anticoagulants. Patient was resedated he is currently on 35 mics per kilo per minute of Diprivan, and 0.9 and is infusing at KVO, no other infusions. Hemodynamically he has remained stable, he is in sinus rhythm sinus tachycardia on the monitor, this morning his PEG tube became plugged when the crushed oral medications were being instilled through the PEG tube, surgery was notified, and the PEG tube was removed, NG tube will be inserted, however no tube feedings or oral medications are to be put down the NG tube at this point. Patient remains on Rocephin for evidence of beta-hemolytic strep in the sputum, yesterday his central line was discontinued and the tip was sent for culture and the culture is pending at this time, however overnight has been no fever, his vital signs have remained stable. He had hemodialysis on 07/21/2020 with removal of 2.5 L in fluids. Today's labs show sodium of 136, potassium 3.5, chloride is 104, CO2 is 22, BUN 54, and creatinine is 2.6, his renal profile is improving, and patient remains on IV Lasix 80 mg twice daily, he is producing urine in the order of 35-60 ML per hour. No other acute events overnight, neurology is following, and is to comment on the findings of the CT of the brain. Today's chest x-ray shows continued diffuse bilateral groundglass airspace disease/pulmonary edema, with continue small effusions with adjacent atelectasis. LDH is down to 640, and CRP is 5.6 On 07/24/2020 patient seen in follow-up in the intensive care unit, he remains trached to the ventilator on assist control mode of ventilation with a rate of 24, tidal is 450, FiO2 of 45% and PEEP of 5, this morning's blood gas shows pO2 of 150; pCO2 40, pH of 7.4, and FiO2 was dropped down to 40% based on the above mentioned blood gases, IV fluids are 0.9 normal saline at a rate of 10 ML per hour, and TPN is infusing at 30 ML per hour, not on any vasopressor support, and patient has been off sedation since yesterday morning, were told by the nursing staff that at times he was noted to be attempting to wiggle toes on command. Remains quite lethargic right now, she is not opening eyes to voice, he is not following commands, he is very weak. Chest x-ray today shows diffuse bilateral infiltrates. Tracheostomy hemodialysis catheter appear to be in appropriate positions, NG tube has been inserted yesterday, and peg tube was discontinued, and surgeries plan on replacing the PEG tube on Sunday. Neurology is following, patient has no signs of obvious seizure activity, he does have cough and a gag reflex. But remains very obtunded, today's labs have been reviewed, showing white blood cell count of 4.1, hemoglobin of 7.4, electrolytes were within normal limits, BUN is 68, and creatinine is 3.54. Patient remains on IV Lasix 80 mg twice daily, is in -856 over the last 24 hours, he is tolerating tube feedings, no diarrhea noted. Yesterday his d-dimer came back at 8.18. Patient remains off Eliquis, and he received 300 mg of rectal aspirin per neurology. His most recent brain CT showed previously noted area of subarachnoid hemorrhage associated with abnormal hypodensity posterior laterally in the right frontal lobe was again noted, not significantly changed. Neurology thinks patient has suffered acute ischemic stroke with a small right frontal region with mild petechial hemorrhage in the cortical ribbon On 07/26/2020 patient seen in follow-up in the intensive care unit, he remains trached to the ventilator, assist control mode of ventilation with a rate of 20 with tidal volumes were 450, FiO2 of 40% and PEEP of 5, displays blood gas shows pO2 of 122, pCO2 of 43, and pH of 7.42. He is 1.9 normal seen at 10 mL an hour, TPN is a 55 ML per hour, Cleviprex is a 7 mg per hour. He has been off Diprivan and for several days now, he just has a morphine sulfate for discomfort on as needed basis, he is waking up to touch and sometimes he follows simple commands, but he is extremely weak and unable to squeeze with his hands on command. His tube feedings have been on hold and he is supposed to have a PEG tube reinserted today, NG tube is in place to low intermittent suction a total of 450 ML of gastric drainage in the last 24 hours, urine output has been in the order of 100-200 ML per hour. He remains on IV Lasix at 80 mg every 12 hours, he is maintaining negative fluid balance of 1.5 L over the last 24 hours. Has been afebrile. Today's chest x-ray shows persistent but improving infiltrates throughout both lung palafox. Today's labs show white blood cell count of 1.1, hemoglobin of 8.4, d-dimer is 11.69, patient has remained off anticoagulation for the PEG tube reinsertion today, sodium is 142, potassium is 4.2, chloride is 102, BUN is 90, creatinine is 3.54, AST is 72, ALT is 82. He is on IV Rocephin for evidence of beta-hemolytic strep in the sputum, and central line catheter tip was positive for Armida albicans. Patient has had no fever or chills. Partially patient has suffered an acute stroke with small subarachnoid hemorrhage, cardiology has been consulted for possibility if AGNIESZKA, which cardiology felt was not needed at this time. No other acute events overnight, no fever or chills, patient has not been able to receive his oral medications for high blood pressure, and has required Cleviprex. On 07/27/2020 patient seen in follow-up in intensive care unit, patient is trached to the ventilator with assist control mode of ventilation with a rate of 24, tidal volume was 450, FiO2 30% and PEEP of 5, no blood gases were done today, overnight he developed a fever with a temp of 101.9F, and today's blood work is down trending white count, neutropenia white blood cell count is 0.6, hemoglobin is 8.2, platelet count is 148, and there is a suspicion of p ossibility of fungal infection, and patient was started on Eraxis yesterday. New blood cultures and urine cultures have been sent, BMP shows a sodium of 140, potassium is 5.2, BUN of 103, and creatinine of 3.66, his inflammatory markers have been reviewed, and LDH is now within normal limits at 559, and CRP is 14.9. His central line catheter tip was positive for Armida albicans, his sputum back on 07/08/2020 was positive for beta-hemolytic strep. Urine culture is currently pending, ID service is following. Patient had a new PEG tube placed on 07/26/2020 he continues on TPN for nutritional support, anticipate restarting his tube feedings this afternoon if cleared by surgery. On 07/28/2020 patient seen in follow-up in the intensive care unit. Remains trached to the ventilator, on assist control mode of ventilation with a rate of 24, tacrolimus 450, FiO2 30%, and PEEP of 5, no new blood gases today. Today's chest x-ray showing stable portable chest, and no change in bibasilar opacities. Patient has remained off sedation, and he started to follow some simple commands, however his severe generally weak, he is unable to squeeze with his hands, he opens eyes to voice, withdraws from painful stimuli. today's labs reviewed showing white blood cell, 0.2, hemoglobin is 6.5, platelet count is 108, patient is pancytopenic, 1 unit of blood will be transfused today, sodium is 144, potassium is 4.4, chloride is 108, BUN of 119, creatinine is 3.9. No obvious source of bleeding at this time. Cultures have been sent, patient is currently on Eraxis for Armida albicans on the central line catheter tip, sputum. Patient remains on Rocephin for streptococcal pneumonia. He was febr ile in the last 24 hours with a T-max of 101.3F. He continues on IV Lasix, he is making urine in order of 100-120 ML per hour. Is on Nepro for nutritional support at 36 with a goal of 36 On 07/29/2020 patient seen in follow-up in the intensive care unit. Patient remains trached to the ventilator, with assist control mode of ventilation rate of 24, Tylenol is 450, FiO2 of 30%, and PEEP of 5. Patient's blood gas shows pO2 of 94, pCO2 of 39, and pH of 7.43, he is on 0.9 normal saline at 10 in the per hour, no other drips, and he is receiving nutritional support in the form of Nepro at 36 with a goal of 36 and 60 mL of water flushes every 4 hours per nephrology. He remains lethargic, generally weak. Per nursing staff patient is at times squeezing her finger on command. Brain CT was repeated showing evolving subacute hemorrhagic infarct in the right frontal lobe with no significant interval change, no new acute intracranial hemorrhage or midline shift. We restarted the patient on prophylactic anticoagulation in the form of Lovenox yesterday, today's labs have been reviewed, d-dimer is 3.83, white count is 0.2, hemoglobin is 7.0, platelet count is 142, sodium is 148, potassium is 3.8, and patient's renal function has worsened, and the Lasix is now on hold, free water flushes were increased by nephrology. Patient continues on Eraxis, and urine culture from 07/26/2020 showed Armida albicans, repeat urine culture has been sent, blood culture from 07/26/2020 showed no growth, final culture is pending. he has been afebrile. Rocephin has been discontinued, infectious dise ase has been consulted On 07/31/2020 patient seen in follow-up in intensive care unit, he opens eyes to voice, he turns had to voice, but unable to squeeze hands on command and follow command. He remains very generally weak, and continues to be somewhat encephalopathic although his level of consciousness has improved. He remains trached to the ventilator, with assist control mode of ventilation and the rate of 24, tidal vital was 450, FiO2 of 30% and PEEP of 5, this morning's blood gas shows pO2 of 104, pCO2 37, and pH of 7.44. This was done on FiO2 of 30%, yesterday he tolerated per support trial for about 5 hours, and was flipped back to assist control mode of ventilation related to respiratory fatigue. This morning he is maintaining O2 saturations at or above 96-98%, appears very c omfortable, and we will proceed with another trial of pressure-support ventilation. He is currently on 0.9 normal saline at 5 ML per hour, no other drips, he is not on any sedatives or narcotics, he is currently on Eraxis, and cefepime. ID service is following. His urine culture was positive for Armida albicans, and he had previously had beta-hemolytic streptococcus in his sputum. Repeat sputum culture was sent on 07/29/2020, and preliminary Gram stain shows many gram-positive cocci, moderate gram-positive bacilli, and a few gram- negative bacilli. Tracheostomy site was also cultured, and preliminary Gram stain shows many gram-positive cocci, many gram-positive bacilli, and many gram-negative bacilli. Today's labs have been reviewed, white blood cell, 0.2, hemoglobin is 7.0, platelet count is 89, his sodium remains elevated at 148, and nephrology is following and patient is receiving tube feedings in the form of Nepro at 36 ML per hour, with 75 ML of free water flushes every 1 hour. His chloride is 112, BUN is 152, and creatinine is 4.07. His renal function slightly worse than yesterday, his liver enzymes show improvement in his AST, slightly increased ALT and relatively stable alkaline phosphatase, his pro- calcitonin level from yesterday was at 1.39. His urinalysis from 07/28/2020 shows possibility of urinary tract infection. His urine output is in the order of 75-125 ML per hour, has been nonoliguric, no diarrhea. He is tolerating tube feedings. Does have some generalized swelling. We restarted patient's prophylactic Lovenox with hematology clearance, hematology is following and patient is currently on Zarxio Objective - Vital Signs Vital signs: Vital Signs Temp 100.4 F H 07/31/20 09:00 Pulse 86 07/31/20 11:00 Resp 25 H 07/31/20 11:00 BP 134/91 07/31/20 11:00 Pulse Ox 98 07/31/20 11:00 Intake & Output 07/30/20 07/31/20 07/31/20 18:59 06:59 18:59 Intake Total 1342 1442 339.0 Output Total 1260 1600 475 Balance 82 -158 -136.0 Weight 104.5 kg 105.2 kg Intake: IV 160 110 45.0 0.9 Normal Saline 60 60 20 Cefepime 1 gm In Sodium 50 25.0 Chloride 0.9% 50 ml @ 12. 5 mls/hr IVPB Q12HR PRAFUL Rx#:[id number] Potassium Chloride 10 meq 100 In Water For Injection 1 100ml.bag @ 100 mls/hr IVPB Q1H PRAFUL Rx#: [id number] Tube Feeding 432 432 144 Other 750 900 150 Output: Urine 1260 1600 475 Other: Voiding Method Indwelling Catheter Indwelling Catheter Indwelling Catheter ABP, PAP, CO, CI - Last Documented Arterial Blood Pressure 118/64 - Exam GENERAL EXAM: Encephalopathic morbidly obese 51-year-old white male, trached to the ventilator, on assist-control mode of ventilation with a 30% PEEP of 5, patient opens eyes to command, and turns head to voice but unable to move extremities related to severe generalized weakness comfortable in no apparent distress. HEAD: Normocephalic/atraumatic. EYES: Normal reaction of pupils, equal size. Conjunctiva pink, sclera white. NOSE: Clear with pink turbinates. THROAT: No erythema or exudates. NECK: No masses, no JVD, no thyroid enlargement, no adenopathy. Midline tracheostomy connected to the ventilator CHEST: No chest wall deformity. Symmetrical expansion. Right subclavian per macath in place and patient is receiving hemodialysis LUNGS: Equal air entry with no crackles, wheeze, rhonchi or dullness. CVS: Regular rate and rhythm, normal S1 and S2, no gallops, no murmurs, no rubs ABDOMEN: Soft, nontender. No hepatosplenomegaly, normal bowel sounds, no guarding or rigidity. PEG tube in place EXTREMITIES: No clubbing, generalized edema no cyanosis, 2+ pulses and upper and lower extremities. Patient has black fingertips on his left hand MUSCULOSKELETAL: Muscle strength and tone normal. Right groin temporary hemodialysis catheter in place SPINE: No scoliosis or deformity SKIN: No rashes CENTRAL NERVOUS SYSTEM: Encephalopathic, but opens eyes to voice, turns head to voice, trached to the ventilator No focal deficits, tone is normal in all 4 extremities. - Labs CBC & Chem 7: 07/31/20 05:43 07/31/20 05:43 Labs: Abnormal Lab Results - Last 24 Hours (Table) 07/30/20 07/30/20 07/30/20 Range/Units 03:44 11:49 16:46 WBC (3.8-10.6) k/uL RBC (4.30-5.90) m/uL Hgb (13.0-17.5) gm/dL Hct (39.0-53.0) % RDW (11.5-15.5) % Plt Count (150-450) k/uL PT (9.0-12.0) sec INR (<1.2) ABG Total CO2 (19-24) mmol/L ABG O2 Saturation (94-97) % Sodium (137-145) mmol/L Chloride (98-107) mmol/L BUN (9-20) mg/dL Creatinine (0.66-1.25) mg/dL Glucose (74-99) mg/dL POC Glucose (mg/dL) 130 H 145 H (75-99) mg/dL Total Bilirubin (0.2-1.3) mg/dL AST (17-59) U/L ALT (4-49) U/L Alkaline Phosphatase (38-126) U/L Total Protein (6.3-8.2) g/dL Albumin (3.5-5.0) g/dL Procalcitonin 1.39 H (0.02-0.09) ng/mL 07/30/20 07/31/20 07/31/20 Range/Units 23:40 05:43 05:43 WBC 0.2 L* (3.8-10.6) k/uL RBC 2.40 L (4.30-5.90) m/uL Hgb 7.0 L (13.0-17.5) gm/dL Hct 22.4 L (39.0-53.0) % RDW 16.5 H (11.5-15.5) % Plt Count 89 L (150-450) k/uL PT (9.0-12.0) sec INR (<1.2) ABG Total CO2 (19-24) mmol/L ABG O2 Saturation (94-97) % Sodium 148 H (137-145) mmol/L Chloride 112 H (98-107) mmol/L BUN 152 H* (9-20) mg/dL Creatinine 4.07 H (0.66-1.25) mg/dL Glucose 132 H (74-99) mg/dL POC Glucose (mg/dL) 126 H (75-99) mg/dL Total Bilirubin 3.8 H (0.2-1.3) mg/dL AST 90 H (17-59) U/L ALT 154 H (4-49) U/L Alkaline Phosphatase 208 H (38-126) U/L Total Protein 5.0 L (6.3-8.2) g/dL Albumin 2.6 L (3.5-5.0) g/dL Procalcitonin (0.02-0.09) ng/mL 07/31/20 07/31/20 07/31/20 Range/Units 05:43 05:50 05:52 WBC (3.8-10.6) k/uL RBC (4.30-5.90) m/uL Hgb (13.0-17.5) gm/dL Hct (39.0-53.0) % RDW (11.5-15.5) % Plt Count (150-450) k/uL PT 12.6 H (9.0-12.0) sec INR 1.2 H (<1.2) ABG Total CO2 26 H (19-24) mmol/L ABG O2 Saturation 98.2 H (94-97) % Sodium (137-145) mmol/L Chloride (98-107) mmol/L BUN (9-20) mg/dL Creatinine (0.66-1.25) mg/dL Glucose (74-99) mg/dL POC Glucose (mg/dL) 131 H (75-99) mg/dL Total Bilirubin (0.2-1.3) mg/dL AST (17-59) U/L ALT (4-49) U/L Alkaline Phosphatase (38-126) U/L Total Protein (6.3-8.2) g/dL Albumin (3.5-5.0) g/dL Procalcitonin (0.02-0.09) ng/mL 07/31/20 Range/Units 11:29 WBC (3.8-10.6) k/uL RBC (4.30-5.90) m/uL Hgb (13.0-17.5) gm/dL Hct (39.0-53.0) % RDW (11.5-15.5) % Plt Count (150-450) k/uL PT (9.0-12.0) sec INR (<1.2) ABG Total CO2 (19-24) mmol/L ABG O2 Saturation (94-97) % Sodium (137-145) mmol/L Chloride (98-107) mmol/L BUN (9-20) mg/dL Creatinine (0.66-1.25) mg/dL Glucose (74-99) mg/dL POC Glucose (mg/dL) 144 H (75-99) mg/dL Total Bilirubin (0.2-1.3) mg/dL AST (17-59) U/L ALT (4-49) U/L Alkaline Phosphatase (38-126) U/L Total Protein (6.3-8.2) g/dL Albumin (3.5-5.0) g/dL Procalcitonin (0.02-0.09) ng/mL Microbiology - Last 24 Hours (Table) 07/26/20 22:06 Blood Culture - Preliminary Blood No Growth after 96 hours 07/30/20 10:12 Gram Stain - Preliminary Neck Wound Culture - Preliminary 07/28/20 11:55 Urine Culture - Final Urine,Voided Armida albicans 07/30/20 10:12 Anaerobic Culture - Preliminary Neck 07/28/20 11:45 Blood Culture - Preliminary Blood No Growth after 48 hours 07/29/20 19:47 Gram Stain - Preliminary Sputum Sputum Culture - Preliminary Assessment and Plan Plan: Assessment: #1. Acute hypoxic respiratory failure secondary to COVID-19 pneumonia. Patient received toci and convalescent plasma., Patient is status post tracheostomy and PEG tube placement on 07/21/2020. #2. Neutropenia, possibly related to sepsis and fungal urinary tract infection, urine cultures showed Armida. Hien on your access and cefepime #3. Acute ischemic stroke, in right frontal region with mild petechial hemorrhage in the cortical ribbon #4. Acute kidney injury requiring dialysis, worsening #5. Altered mental status, related to toxic metabolic encephalopathy, severe, related to multiple organ dysfunction #6. Possible petechial hemorrhage within the right frontal lobe, seen on the CT of the brain, neurology is following #7. Severe metabolic acidosis, improved and resolved after dialysis. #8. Hyperkalemia secondary to above, improved with hemodialysis #9. Benign essential hypertension. #10. Superficial vein thromboses and left cephalic vein and left basilic vein #11. Heparin-induced thrombocytopenia, patient was on Argatroban and Eliquis which are on hold right now #12. History of obstructive sleep apnea syndrome #13. Morbid obesity #14. Increased d-dimer related to COVID-19, patient was started on Eliquis which will be restarted after his surgical procedures #15. Plugged PEG tube, the PEG tube was discontinued today at the bedside on 07/23/2020, new PEG tube was inserted on 07/26/2020 #16. Pancytopenia, likely related to sepsis, hematology is following, on Zarxio Plan: We'll try on the pressure-support trial again today, with a pressure support of 8 and CPAP of 5 May return to assist-control mode of ventilation if becomes tired Lasix on hold Fluids and free water flushes per nephrology Continue Lovenox at prophylactic dose Continue following blood counts, hematology recs Continue following cultures Social work consultation for LTAC placement Awaiting approval from the patient's insurance company for LTAC placement I performed a history & physical examination of the patient and discussed their management with my nurse practitioner, Nelia Conley. I reviewed the nurse practitioner's note and agree with the documented findings and plan of care. Lung sounds are positive for diminished breath sounds The findings and the impression was discussed with the patient. I attest to the documentation by the nurse practitioner. Time with Patient: Greater than 30
--- NOTE | 2020-07-31 15:42 | PN ---
PROGRESS NOTE DATE OF SERVICE: 07/31/2020 REASON FOR FOLLOWUP: Pneumonia and UTI. INTERVAL HISTORY: Patient is currently running a low grade fever 100.4. The patient is hemodynamically stable, not on pressor support. No significant secretions or other per the nursing staff or any secretions through the ET and no diarrhea has been reported. Patient currently FiO2. EXAMINATION: Blood pressure 152/93 with pulse of 98, temperature is 98.9. He is 96% on 30% FiO2. General description is a middle-aged male lying in bed in no distress. Respiratory system: Unlabored breathing, coarse breath sounds bilaterally. No wheeze. Heart: S1, S2. Regular rate and rhythm. Abdomen: Soft, no tenderness. LABS: Hemoglobin 10, white count 10.2, BUN of 122, creatinine is 4.07. DIAGNOSTIC IMPRESSION AND PLAN: Patient with acute respiratory failure which is multifactorial who did have a COVID-19 pneumonia initially, now with concern for possible pneumonia and urinary tract infection urine has been Armida. Sputum culture is pending. Patient is covered with cefepime and Eraxis to continue along with respiratory support and monitor clinical course closely. MMODL / IJN: [id number] /
--- NOTE | 2020-07-31 16:48 | P.PN ---
Subjective Progress Note Date: 07/31/20 CHIEF COMPLAINT: COVID pneumonia HISTORY OF PRESENT ILLNESS: The patient is a 59 year old male with Covid pneumonia status post trach and PEG. The patient remains in the ICU ventilated and sedated. He is able to awake. Overall, patient has multi organism infection along his trach site. He overall has worsening renal function. He is tolerating tube feeds. REVIEW OF ORGAN SYSTEMS: On mechanical ventilation. Otherwise unable to answer with vent PHYSICAL EXAM: VITALS: Reviewed CONSTITUTIONAL: Well developed and in no acute distress. EYES: Conjuctivae without sclera icterus. HEAD, EARS, NOSE, THROAT: Head is atraumatic, normocephalic. Trach intact. RESPIRATORY: Non-labored respirations and equal bilateral excursions. No gross wheezes. Mechanical ventilation CARDIOVASCULAR: Palpable 2+ radial pulses. ABDOMEN: No peritonitis. G-tube intact. NEUROLOGIC: No focal or lateralizing signs PSYCH: Awaken to commands. CLINCAL LABS: Reviewed. WBC low with leukopenia, less than 1.0. Creatinine over 4.0. Platelets low thrombocytopenia ASSESSMENT: 1. COVID pneumonia 2. Status post trach and PEG 3. Acute renal failure 4. Leukopenia 5. Sepsis PLAN: 1. Patient has bone marrow suppression with leukopenia and now in multisystem organ failure. Overall prognosis is guarded. 2. Continue supportive care Objective - Vital Signs Vital signs: Vital Signs Temp 98.9 F 07/31/20 12:00 Pulse 100 07/31/20 16:00 Resp 24 07/31/20 16:00 BP 153/98 07/31/20 16:00 Pulse Ox 99 07/31/20 16:00 Intake & Output 07/30/20 07/31/20 07/31/20 18:59 06:59 18:59 Intake Total 1342 1442 1630.0 Output Total 1260 1600 1455 Balance 82 -158 175.0 Weight 104.5 kg 105.2 kg Intake: IV 160 110 70.0 0.9 Normal Saline 60 60 20 Cefepime 1 gm In Sodium 50 50.0 Chloride 0.9% 50 ml @ 12. 5 mls/hr IVPB Q12HR PRAFUL Rx#:[id number] Potassium Chloride 10 meq 100 In Water For Injection 1 100ml.bag @ 100 mls/hr IVPB Q1H PRAFUL Rx#: [id number] Intake, IV Titration 450 Amount Dextrose 5% in Water 1, 450 000 ml @ 75 mls/hr IV . [id number] Rx#:[id number] Tube Feeding 432 432 360 Other 750 900 750 Output: Urine 1260 1600 1455 Other: Voiding Method Indwelling Catheter Indwelling Catheter Indwelling Catheter ABP, PAP, CO, CI - Last Documented Arterial Blood Pressure 118/64 - Labs CBC & Chem 7: 08/01/20 03:08 08/01/20 03:08 Labs: Abnormal Lab Results - Last 24 Hours (Table) 07/30/20 07/30/20 07/30/20 Range/Units 03:44 16:46 23:40 WBC (3.8-10.6) k/uL RBC (4.30-5.90) m/uL Hgb (13.0-17.5) gm/dL Hct (39.0-53.0) % RDW (11.5-15.5) % Plt Count (150-450) k/uL PT (9.0-12.0) sec INR (<1.2) ABG Total CO2 (19-24) mmol/L ABG O2 Saturation (94-97) % Sodium (137-145) mmol/L Chloride (98-107) mmol/L BUN (9-20) mg/dL Creatinine (0.66-1.25) mg/dL Glucose (74-99) mg/dL POC Glucose (mg/dL) 145 H 126 H (75-99) mg/dL Total Bilirubin (0.2-1.3) mg/dL AST (17-59) U/L ALT (4-49) U/L Alkaline Phosphatase (38-126) U/L Total Protein (6.3-8.2) g/dL Albumin (3.5-5.0) g/dL Procalcitonin 1.39 H (0.02-0.09) ng/mL 07/31/20 07/31/20 07/31/20 Range/Units 05:43 05:43 05:43 WBC 0.2 L* (3.8-10.6) k/uL RBC 2.40 L (4.30-5.90) m/uL Hgb 7.0 L (13.0-17.5) gm/dL Hct 22.4 L (39.0-53.0) % RDW 16.5 H (11.5-15.5) % Plt Count 89 L (150-450) k/uL PT 12.6 H (9.0-12.0) sec INR 1.2 H (<1.2) ABG Total CO2 (19-24) mmol/L ABG O2 Saturation (94-97) % Sodium 148 H (137-145) mmol/L Chloride 112 H (98-107) mmol/L BUN 152 H* (9-20) mg/dL Creatinine 4.07 H (0.66-1.25) mg/dL Glucose 132 H (74-99) mg/dL POC Glucose (mg/dL) (75-99) mg/dL Total Bilirubin 3.8 H (0.2-1.3) mg/dL AST 90 H (17-59) U/L ALT 154 H (4-49) U/L Alkaline Phosphatase 208 H (38-126) U/L Total Protein 5.0 L (6.3-8.2) g/dL Albumin 2.6 L (3.5-5.0) g/dL Procalcitonin (0.02-0.09) ng/mL 07/31/20 07/31/20 07/31/20 Range/Units 05:50 05:52 11:29 WBC (3.8-10.6) k/uL RBC (4.30-5.90) m/uL Hgb (13.0-17.5) gm/dL Hct (39.0-53.0) % RDW (11.5-15.5) % Plt Count (150-450) k/uL PT (9.0-12.0) sec INR (<1.2) ABG Total CO2 26 H (19-24) mmol/L ABG O2 Saturation 98.2 H (94-97) % Sodium (137-145) mmol/L Chloride (98-107) mmol/L BUN (9-20) mg/dL Creatinine (0.66-1.25) mg/dL Glucose (74-99) mg/dL POC Glucose (mg/dL) 131 H 144 H (75-99) mg/dL Total Bilirubin (0.2-1.3) mg/dL AST (17-59) U/L ALT (4-49) U/L Alkaline Phosphatase (38-126) U/L Total Protein (6.3-8.2) g/dL Albumin (3.5-5.0) g/dL Procalcitonin (0.02-0.09) ng/mL Microbiology - Last 24 Hours (Table) 07/28/20 11:45 Blood Culture - Preliminary Blood No Growth after 72 hours 07/29/20 19:47 Gram Stain - Preliminary Sputum Sputum Culture - Preliminary 07/26/20 22:06 Blood Culture - Preliminary Blood No Growth after 96 hours 07/30/20 10:12 Gram Stain - Preliminary Neck Wound Culture - Preliminary 07/28/20 11:55 Urine Culture - Final Urine,Voided Armida albicans 07/30/20 10:12 Anaerobic Culture - Preliminary Neck
[2020-07-31 17:26] LABS: Glucose,Whole Blood 147 mg/dL (75-99)
[2020-07-31] MEDS: FILGRASTIM-SNDZ 480 MCG/0.8 ML SYRINGE SQ SCH (18:48)
[2020-07-31 18:52] LABS: Glucose,Whole Blood 151 mg/dL (75-99)
[2020-07-31] MEDS: SODIUM CHLORIDE 0.9% 1,000 ML IV SCH (20:33)
--- NOTE | 2020-07-31 21:27 | P.PN ---
Subjective This is a pleasant 53 years old male with past medical history of hypertension, osteoarthritis, sleep apnea. Presents with respiratory distress secondary to covid pneumonia and secondary bacterial infection is suspected as well with positive sputum culture for streptococcus, group C. Currently remains on ceftriaxone per ID team. Patient has prolonged course in the ICU. He was on mechanical ventilation and need a small dose of Levophed at the beginning , Also patient has elevated troponin and he was started on heparin drip however he developed coffee-ground emesis via anicteric tube, heparin drip was stopped and hemoglobin is stable and his hit antibodies came back positive, Facilities And Grounds Director found to his elevated troponin is secondary to his Covid infection and hypotension, he was started on argatroban drip for suspected left hand ischemia . Currently he kept on aspirin one 50 mg rectally daily, with no any anticoagulation, Eliquis is held for PEG tube placement His renal function worsened at certain point needing hemodialysis due to his Covid infectionl, nonoliguric. Currently he is off dialysis Receiving nutrition through TPN, and scheduled for PEG tube placement today Plan for him was to go to LTAC wants PEG tube was placed and functional Patient is currently on eraxis, he is also on dexamethasone , Lasix IV 80 mg twice daily, Protonix 40 mg IV twice macey I called his medical insurance provider [employer] at [phone] extension [phone] at 2 PM, however the midline was 2 PM today , of physicians were busy per staff and they said they will call me tomorrow 8:30-8:40 5 AM, I provided my cell phone to [employer] 07/27/2020 Patient remains in the ICU, his vent dependent. Status post tracheostomy. He got his PEG tube yesterday and start tube feeding today.. Associated with leukopenia He tolerated that well so far per ICU nurse. His postoperative go to LTAC tomorrow if he was going to be stable however he is a spiking temperature last night and today 101.9 Labs today showing leukopenia with ellipses 0.6, hemoglobin stable 8.2 as well as platelets 148 k. . Glucose control, creatinine 3.6 which is a stable over the last 10 days. inflammatory markers still elevated but stable with ferritin is 35. Total jennifer irubin is 3.4, liver enzymes mildly elevated with AST 79 and AFP 115, C-reactive protein is elevated at 14.9 Chest x-ray showing bilateral multifocal opacity most prominent in the apices and bases on background low lung volume consistent with COVID-19 infection. No interval change from one day earlier Currently patient kept on Eraxis, ceftriaxone. Also she is on dexamethasone 4 mg IV daily, Lasix 80 mg IV daily. Today I did appear to be with Dr. Johnson from [facility], unfortunately she rejected the case stating there is no documentation of weaning. I tried to explain to her that usually we do a sedation holiday and weaning trial prior to any tracheostomy under the care of critical care team however she was asking where in the chart documented, it was difficult to locate documentation about weaning trial in this patient with more than 3 weeks hospital stays and in a few minutes over the phone, eventually she ejected the case as above. Discussed with web content & social media manager 07/28/2020 Patient remains in the ICU on mechanical ventilation with pulmonary/critical care team help with vent management Patient hemodynamically stable Labs showing leukopenia 0.2K, hemoglobin is 6.5 and platelets 108, after 1 unit of blood transfusion hemoglobin went up to 7.3 and platelet with a 3. Creatinine is 3.9, compared to 3.[address] of the brain showing evolving subacute hemorrhagic infarct of the right frontal lobe shows no significant interval change 1 unit of blood is ordered today. Hematology team consulted for severe leukopenia and throughout its due to his severe critical illness and bone marrow suppression and continue the current management and transfuse as needed further recommendations Currently patient kept on Eraxis, Also she is on dexamethasone 4 mg IV daily, Lasix 80 mg IV daily. Ceftriaxone was discontinued today With the help of the web content & social media manager, today signed a letter to his medical insurance provider to approve for his LTAC transfer, the patient was sent today, explaining that LTAC is the main way to treat him , Also as per my discussion with web content & social media manager Ryan, critical care team also will try to contact Lynn 07/29/2020 Patient remains in the ICU on mechanical ventilation with pulmonary/critical care team on the case Patient is currently on erxis for fungal UTI. filgastrim was added for severe leukopenia of 0.2 and we'll monitor response Despite history of subacute hemorrhagic infarct, patient is a started on Lovenox for DVT prophylaxis and aspirin 300 mg by pulmonary and cardiology teams, we'll keep monitoring her closely. 07/30/2020 07/30/2020 Patient remains in the ICU on mechanical ventilation with pulmonary/critical care team on the case Patient still has low-grade fever of 99.9 today. He is Tachypneic and tachycardic but blood pressure is stable. Still has significant leukopenia with WBC of 0.2 number hemoglobin 7.2 she is stable. Platelet count 113K. Neurology service signed off today. He remains on Eraxis but because of his persistent fever., Cefepime added today. Infectious disease team of the case 07/31/2020 Patient remains in the ICU on mechanical ventilation with pulmonary/critical care team on the case Patient still has low-grade fever of 100 today. He is Tachypneic and tachycardic but blood pressure is stable. Still has significant leukopenia with WBC of 0.2 number hemoglobin 7.0 she is stable. Platelet count 89K. Patient is currently on cefepime and Eraxis, per ID team recommendation Sodium 148, glucose is stable. Liver enzymes were mildly elevated. Chest x-ray: No change D5W at 75 mL/h. For hypernatremia. Objective - Vital Signs Vital signs: Vital Signs Temp 99.6 F 07/31/20 17:00 Pulse 92 07/31/20 19:00 Resp 28 H 07/31/20 19:00 BP 158/100 07/31/20 19:00 Pulse Ox 98 07/31/20 19:00 Intake & Output 07/31/20 07/31/20 08/01/20 06:59 18:59 06:59 Intake Total 1442 2002.0 186 Output Total 1600 1605 100 Balance -158 397.0 86 Weight 105.2 kg Intake: IV 110 70.0 0.9 Normal Saline 60 20 Cefepime 1 gm In Sodium 50 50.0 Chloride 0.9% 50 ml @ 12. 5 mls/hr IVPB Q12HR [facility] Rx#:[id number] Intake, IV Titration 600 75 Amount Dextrose 5% in Water 1, 600 75 000 ml @ 75 mls/hr IV . [id number] ONE Rx#:[id number] Tube Feeding 432 432 36 Other 900 900 75 Output: Urine 1600 1605 100 Other: Voiding Method Indwelling Catheter Indwelling Catheter # Bowel Movements 1 ABP, PAP, CO, CI - Last Documented Arterial Blood Pressure 118/64 - Exam -GENERAL: The patient is intubated and sedated, well nourished. HEENT: Pupils are round and equally reacting to light. EOMI. No scleral icterus. No conjunctival pallor. Normocephalic, atraumatic. No pharyngeal erythema. No thyromegaly. CARDIOVASCULAR: S1 and S2 present. No murmurs, rubs, or gallops. PULMONARY: Chest is clear to auscultation, no wheezing or crackles. ABDOMEN: Soft, nontender, nondistended, normoactive bowel sounds. No palpable organomegaly. MUSCULOSKELETAL: No joint swelling or deformity. EXTREMITIES: No cyanosis, clubbing, or pedal edema. NEUROLOGICAL: Gross neurological examination did not reveal any focal deficits. SKIN: No rashes. no petechiae. - Labs CBC & Chem 7: 07/31/20 05:43 07/31/20 05:43 Labs: Abnormal Lab Results - Last 24 Hours (Table) 07/30/20 07/30/20 07/31/20 Range/Units 03:44 23:40 05:43 WBC 0.2 L* (3.8-10.6) k/uL RBC 2.40 L (4.30-5.90) m/uL Hgb 7.0 L (13.0-17.5) gm/dL Hct 22.4 L (39.0-53.0) % RDW 16.5 H (11.5-15.5) % Plt Count 89 L (150-450) k/uL PT (9.0-12.0) sec INR (<1.2) ABG Total CO2 (19-24) mmol/L ABG O2 Saturation (94-97) % Sodium (137-145) mmol/L Chloride (98-107) mmol/L BUN (9-20) mg/dL Creatinine (0.66-1.25) mg/dL Glucose (74-99) mg/dL POC Glucose (mg/dL) 126 H (75-99) mg/dL Total Bilirubin (0.2-1.3) mg/dL AST (17-59) U/L ALT (4-49) U/L Alkaline Phosphatase (38-126) U/L Total Protein (6.3-8.2) g/dL Albumin (3.5-5.0) g/dL Procalcitonin 1.39 H (0.02-0.09) ng/mL 07/31/20 07/31/20 07/31/20 Range/Units 05:43 05:43 05:50 WBC (3.8-10.6) k/uL RBC (4.30-5.90) m/uL Hgb (13.0-17.5) gm/dL Hct (39.0-53.0) % RDW (11.5-15.5) % Plt Count (150-450) k/uL PT 12.6 H (9.0-12.0) sec INR 1.2 H (<1.2) ABG Total CO2 26 H (19-24) mmol/L ABG O2 Saturation 98.2 H (94-97) % Sodium 148 H (137-145) mmol/L Chloride 112 H (98-107) mmol/L BUN 152 H* (9-20) mg/dL Creatinine 4.07 H (0.66-1.25) mg/dL Glucose 132 H (74-99) mg/dL POC Glucose (mg/dL) (75-99) mg/dL Total Bilirubin 3.8 H (0.2-1.3) mg/dL AST 90 H (17-59) U/L ALT 154 H (4-49) U/L Alkaline Phosphatase 208 H (38-126) U/L Total Protein 5.0 L (6.3-8.2) g/dL Albumin 2.6 L (3.5-5.0) g/dL Procalcitonin (0.02-0.09) ng/mL 07/31/20 07/31/20 07/31/20 Range/Units 05:52 11:29 17:25 WBC (3.8-10.6) k/uL RBC (4.30-5.90) m/uL Hgb (13.0-17.5) gm/dL Hct (39.0-53.0) % RDW (11.5-15.5) % Plt Count (150-450) k/uL PT (9.0-12.0) sec INR (<1.2) ABG Total CO2 (19-24) mmol/L ABG O2 Saturation (94-97) % Sodium (137-145) mmol/L Chloride (98-107) mmol/L BUN (9-20) mg/dL Creatinine (0.66-1.25) mg/dL Glucose (74-99) mg/dL POC Glucose (mg/dL) 131 H 144 H 147 H (75-99) mg/dL Total Bilirubin (0.2-1.3) mg/dL AST (17-59) U/L ALT (4-49) U/L Alkaline Phosphatase (38-126) U/L Total Protein (6.3-8.2) g/dL Albumin (3.5-5.0) g/dL Procalcitonin (0.02-0.09) ng/mL 07/31/20 Range/Units 18:49 WBC (3.8-10.6) k/uL RBC (4.30-5.90) m/uL Hgb (13.0-17.5) gm/dL Hct (39.0-53.0) % RDW (11.5-15.5) % Plt Count (150-450) k/uL PT (9.0-12.0) sec INR (<1.2) ABG Total CO2 (19-24) mmol/L ABG O2 Saturation (94-97) % Sodium (137-145) mmol/L Chloride (98-107) mmol/L BUN (9-20) mg/dL Creatinine (0.66-1.25) mg/dL Glucose (74-99) mg/dL POC Glucose (mg/dL) 151 H (75-99) mg/dL Total Bilirubin (0.2-1.3) mg/dL AST (17-59) U/L ALT (4-49) U/L Alkaline Phosphatase (38-126) U/L Total Protein (6.3-8.2) g/dL Albumin (3.5-5.0) g/dL Procalcitonin (0.02-0.09) ng/mL Microbiology - Last 24 Hours (Table) 07/28/20 11:45 Blood Culture - Preliminary Blood No Growth after 72 hours 07/29/20 19:47 Gram Stain - Preliminary Sputum Sputum Culture - Preliminary 07/26/20 22:06 Blood Culture - Preliminary Blood No Growth after 96 hours 07/30/20 10:12 Gram Stain - Preliminary Neck Wound Culture - Preliminary 07/28/20 11:55 Urine Culture - Final Urine,Voided Armida albicans Assessment and Plan Assessment: Acute Covid pneumonia New fever and leukopenia, secondary to fungal UTI. ID team on the case Acute hypoxic respiratory failure needing mechanical ventilation Acute kidney injury needed hemodialysis , currently he is off HD Acute hemorrhagic stroke , right frontal region with mild petechial hemorrhage in the cortical ribbon. AMS secondary to metabolic encephalogpathy and stroke, s/p PEG placement and tracheostomy as he could not be weaned off m.ventilation Suspected ischemia of the left hand on anticoagulation , resolved now Coffee ground vomiting with suspected acute GI bleed Thrombocytopenia secondary to sepsis and heparin induced thrombocytopenia Severe leukopenia secondary to Covid infection Elevated troponin, secondary to renal function impairment, viral infection and hypotension Plan: This is a pleasant 59 years old male who presents with Covid pneumonia, on mechanical ventilation and AMS. Continue with mechanical ventilation for pulmonary/critical care team will follow the patient closely.Continue with multiple vitamin zinc and vitamin D c/w eraxis for UTI and filgastrim for leukopenia GI and cardiology, nephrology , hematology teams on the case aspirin as per neurology team Labs and medication were reviewed.. Continue same treatment. Continue with symptomatic treatment. Resume home medication. Monitor lytes and vitals. DVT and GI prophylaxis. Further recommendations as per clinical course of the patient DVT prophylaxis: eliquis on hold . Continue with DVT prophylaxis as per critical care team, lovenox is added GI Prophylaxis: Ppi, Protonix twice a day Prognosis is guarded The peel was sent to his web content & social media manager provider Lynn
[2020-07-31 23:54] LABS: Glucose,Whole Blood 129 mg/dL (75-99)
[2020-08-01] MEDS: INSULIN ASPART (NovoLOG) 100 UNIT/ML VIAL SQ SCH ×5 (00:25→23:27)
[2020-08-01 04:11] LABS: Anisocytosis Slight; HCT 22.5 % (39.0-53.0); HGB 7.4 gm/dL (13.0-17.5); Hypochromasia Slight; MCH 30.6 pg (25.0-35.0); MCHC 32.8 g/dL (31.0-37.0); MCV 93.4 fL (80.0-100.0); Mean Platelet Volume 8.8; RBC 2.41 m/uL (4.30-5.90); RDW 16.3 % (11.5-15.5)
[2020-08-01 04:22] LABS: Albumin 2.6 g/dL (3.5-5.0); Calcium 8.9 mg/dL (8.4-10.2); Total Bilirubin 3.8 mg/dL (0.2-1.3)
[2020-08-01 04:26] LABS: Platelet Count 58 k/uL (150-450); WBC 0.3 k/uL (3.8-10.6)
[2020-08-01 05:23] LABS: ABG Base Excess -0.4 mmol/L; ABG HCO3 24 mmol/L (21-25); ABG Oxygen Saturation 98.8 % (94-97); ABG PCO2 35 mmHg (35-45); ABG PH 7.44 (7.35-7.45); ABG PO2 121 mmHg (83-108); ABG TCO2 25 mmol/L (19-24); Allen Test Performed? Yes
[2020-08-01 05:50] LABS: Glucose,Whole Blood 143 mg/dL (75-99)
[2020-08-01 06:17] LABS: RBC Fragments Present
[2020-08-01 06:19] LABS: Poikilocytosis (M) Present
--- NOTE | 2020-08-01 07:15 | XR ---
EXAMINATION TYPE: XR chest 1V portable DATE OF EXAM: 08/01/2020 COMPARISON: 07/31/2020 HISTORY: Shortness of breath TECHNIQUE: Single frontal view of the chest is obtained. FINDINGS: Dialysis catheter and tracheostomy tube noted. Left-sided PICC line seen. Diffuse intersti tial infiltrates with basilar infiltrate and small effusion stable. Osseous structures are stable. IMPRESSION: Diffuse interstitial infiltrates correlate for CHF versus interstitial. Findings stable.
[2020-08-01] MEDS: DEXAMETHASONE SOD PHOSPHATE 4 MG/ML 1 ML VIAL IV SCH (08:44)
[2020-08-01] MEDS: ENOXAPARIN 30 MG/0.3 ML SYRINGE SQ SCH (08:44)
[2020-08-01] MEDS: CEFEPIME 1 GM in SODIUM CHLORIDE 0.9% 50 ML IVPB SCH ×2 (08:45→20:53)
[2020-08-01] MEDS: ANIDULAFUNGIN 100 MG in SODIUM CHLORIDE 0.9% 100 ML IVPB SCH (08:45)
[2020-08-01] MEDS: ASPIRIN 300 MG SUPP RECTAL SCH (08:45)
[2020-08-01] MEDS: PANTOPRAZOLE 40 MG/10 ML VIAL IVP SCH ×2 (08:45→21:00)
[2020-08-01] MEDS: ALBUTEROL HFA INHALER INHALATION SCH ×3 (09:12→19:31)
--- NOTE | 2020-08-01 10:49 | P.PN ---
Subjective Progress Note Date: 08/01/20 Principal diagnosis: Acute hypoxic respiratory failure second to COVId 19 pneumonia The patient is seen today 07/12/2020 in follow-up in the intensive care unit. He remains intubated, sedated on the mechanical ventilator at assist control mode of a rate of 36, tidal volume 450, FiO2 40% and a PEEP of 10. Morning blood gases reveal pO2 of 69, pCO2 41, pH 7.35. He remains sedated on propofol at 60 mcg/kg/m, fentanyl at 1 mcg/kg/h, norepinephrine at 0.09 mcg/kg//min, the patient is currently on 0.9 saline at rate of 50 mL an hour. The patient has been off Nimbex since yesterday. He is continued on Argatroban at 0.5 mcg/kg/m. Being nourished with Nepro at 15 ML's per hour. He did receive hemodialysis yesterday with 1 L removed. Chest x-ray reveals mild bibasilar infiltrates. Sputum cultures positive for beta-hemolytic strep, group C. White count 18.1. Hemoglobin 10.6. Platelet count 141. D-dimer 19.69. Sodium 133. Potassium 4.7. Creatinine 4.14. LDH 1067, C-reactive protein 24. Remains on antibiotics in the form of ceftriaxone. Bronchodilators. Vitamin supplements. Dexamethasone. 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 The platelet count is stable and the platelet count is up to 136. On 07/12/2020, the patient is being seen for follow-up. The patient is a 59-year-old obese male patient with a BMI of 36.2 with known history of obstructive sleep apnea, presented with COVID 19 related pneumonia patient is currently intubated on a mechanical ventilator. The patient has been on a mechanical ventilator since 07/05/2020. 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 During the course of his treatment, the patient developed an acute kidney injury secondary to ATN secondary to "with 19 infection. Urine output was improving and the patient's urine output was in order of 20-25 mL an hour. Due to persistent hyperkalemia and worsening renal function, the patient was started on hemodialysis on 07/10/2020. The potassium level improved post-hemodialysis. The patient also had significant metabolic acidosis and the patient was given bicarb infusion. Electrolytes are being monitored. The patient got dialyzed yesterday and this was his second hemodialysis. Nephrology is on the case. He is currently on Decadron 6 mg IV every 24 hours. His chest x-ray is showing patchy by the pulmonary infiltrates in lower lobes, slightly worsening in the chest x-ray findings on today's evaluation mainly in the peripheries and ET tube is in a good location. The patient remains on a mechanical ventilator assist control mode. He is on Nepro at 60 mL an hour. 07/13/2020, I'm seeing this patient for a follow-up. This is a case of a 59-year-old male patient with Covid 19 related pneumonia and acute kidney injury currently on hemodialysis. Worn-out, the patient is sedated and this morning the patient is currently on propofol running at 6 60 mcg/kg per minute and fentanyl is running at 1 mcg/kg/h and this is the same sedation it was being provided yesterday. The patient is on no paralytics for now. The patient is on a mechanical ventilator, on this morning's evaluation, he is on assist-control at the rate of 28 with a tidal volume of 450 and FiO2 of 50% and PEEP is 10. Blood gases from today showing a pH of 7.37 with a pCO2 of 47 and pO2 of 63. Chest x-ray from today is showing diffuse bilateral pulmonary infiltrates more so in the lower lobes bilaterally. ET tube is in a good location. Comparing this chest x-ray from yesterday, there is no major interval change in the findings are essentially stable. His peak airway pressures 28. His static pressures 24. The patient is is still on Decadron 6 mg IV every 24 hours. D- dimer today's at 13.3, his LDH level is at 1021 and the CRP is at 4.6. Note that his inflammatory markers essentially compatible to yesterday. His echoes at 13.7 with a hemoglobin of 9.2. Platelet count is 112. I took the patient off Agratoban and he was also placed on Eliquis at a dose of 5 mg by mouth twice a day. Noted the patient also is an acute kidney injury. The patient underwent dialysis and the spot he has taken 3 sessions of hemodialysis. He is producing urine output in the order of 20-30 mL an hour. His last session of hemodialysis was yesterday. In terms of his electrolytes, his BUN is at 80 with a creatinine of 3.5 and a sodium of 132 with a potassium of 4.4. He is currently on enteral feeding for dizziness support and is currently on Nepro at the rate of 50 mL an hour. He is currently off Rocephin. He is afebrile. He is requiring low-dose pressors were norepinephrine 30 dose of 0.03 mcg/kg per minute. Otherwise, no other significant events. He is afebrile. Sedation holiday was not done yesterday. IV fluids are running at 0.9 at the rate of 50 mL an hour. 07/14/2020, patient is being seen for follow-up. Sedated and still on a mechanical ventilator, probable resolving. 60 mcg/kg per minute and the patient is also on fentanyl at 1 mcg/kg/h. Adequately sedated. On a mechanical ventilator essentially vent settings being at tidal volume of 450 with an FiO2 of 50% and a PEEP of 10 and a rate of 28. These are essentially the same settings as yesterday. As far as blood gases, pO2 is at 79 with a pCO2 of 45 and a pH is at 7.35. He d-dimer is at 9.42 and the rest of the inflammatory markers show an LDH of 1062 which is stable compared to yesterday and a CRP of 87, slightly elevated compared to yesterday. His CPK is down to 231. His pro calcitonin level was at 0.58 and note that the patient has dialysis-dependent renal failure. As far as his creatinine, his creatinine today is at 3.97 with a mean of 96. He did not receive dialysis yesterday. His urine output is in order of 30-40 mL an hour and the fluid balance has been +1.1 L over the past 24 hours. His chest x-ray from today is showing lower lobe pulmonary infiltrates, essentially stable compared to yesterday. ET tube remains in excellent location. IV fluids are running at 20 cc an hour of normal saline. He is afebrile. He is tolerating his enteral feeding for nutritional support. Norepinephrine infusion which is running at 0.05 mcg/kg per minute. He remains on Decadron 6 mg IV every 24 , platelet count is stable at 121 and 11 avoiding heparin. Patient holiday yesterday was ultimately aborted as the patient became quite agitated after several hours without any meaningful neurological response. 07/15/2020, the patient is being seen for a follow-up. Sedated with propofol running at 60 mcg/kg per minute and fentanyl is at 1 mcg/kg/h and the level of sedation essentially the same as yesterday. Remains on a mechanical ventilator. He is an assist-control mode at the rate of 24 with a tidal volume of 450 and a PEEP of 8 with a FiO2 of 50%. He had a blood gas showing pH of 7.33 with a pCO2 of 46 and pO2 of 73. Chest x-ray is unchanged, probably slightly worse on the left in terms of that the patient is seeing on today's chest x-ray. ET tube remains in a good location. Inflammatory markers from today show a d-dimer of 9 with a LDH level of 1061 and a CRP of 78, comparable to yesterday. His pro calcitonin level was low. He got dialyzed yesterday. I attempted to wean down the PEEP to 6 and this was not successful and the patient desaturated in the P EEP was brought back up to 8 yesterday. Meanwhile, he is afebrile. He is producing urine output in the order of 20-30 mL an hour. He is on normal saline at the rate of 20 mL an hour. He remains on Decadron 6 mg IV to 24 hours. His platelet count is 132 which is essentially stable and improved compared to yesterday. In terms of pressors, the patient is currently on norepinephrine infusion at 0.04 mcg/kg per minute. I will today's condition essentially unchanged and his condition essentially the same as compared to yesterday 07/16/2020, remains on a mechanical ventilator on propofol at the rate of 60 mcg/kg per minute and fentanyl is at 2 mcg/kg/h. He remains off paralytics. At around 6:00 this morning, the patient had some oxygen desaturation. Based on that, I increased his FiO2 up to 60%. Currently is an assist-control mode rate of 28 with a tidal volume of 450 and a PEEP of 8 chest x-ray still showing diffuse bilateral pulmonary infiltrates left more than right. The blood gas shows a pH of 7.31 with a pCO2 of 45 and pO2 of 68. This was on FiO2 of 70%. Inflammatory markers show a d-dimer of 9.9 with a LDH level of 1103 and a CRP level of 62. The patient is on Decadron 6 mg IV every 24 hours. The patient is also on anticoagulation with Eliquis 2.5 mg by mouth twice a day. His platelet counts is 135. The chest x-ray findings are obviously worse and there is some worsening in the evaluation in the right lung compared to yesterday. Note that the patient did not get dialyzed yesterday. Today is a dialysis day for him. He is also on norepinephrine infusion running at 0.08 mcg/kg per minute. There is enough to maintain his blood pressure. He is receiving enteral feeding for discharge support and currently is on Nepro at a rate of 50 mL an hour which is currently at goal. No other significant events. Is adequately sedated for now. 07/17/2020, the patient is being seen for a follow-up. This morning he is on a combination of propofol and fentanyl running at 60 mics for propofol and 1 g for fentanyl. He was given a sedation holiday and she was able to tolerate initiated subsequently he decompensated and became hypoxic and he had to be placed back on sedation. Noted the patient became asynchronous. This morning, he is back on a mechanical ventilator mode at the rate of 28 with a tidal volume of 450 and her FiO2 is at 60% with a PEEP of 8. He underwent dialysis yesterday with a total of 2 liters of ultrafiltration. Note that he was able to tolerated dialysis without any major issues. He is on a minimal dose of norepinephrine infusion running at 0.06 mcg/kg per minute for blood pressure control. On today's evaluation, peak air pressures around 27. The blood gases from today shows a pH of 7.29 with a pCO2 of 40 and pO2 of 99 and this was on FiO2 of 60%. As mentioned, his PEEP is at 8. Chest x-ray still showing diffuse breath and pulmonary infiltrates unchanged without any major interval improvement or worsening. White cell count is at 50 with a hemoglobin of 8.2. Creatinine is at 3.4 and a urine output is in order of 30 mL an hour. No plans for hemodialysis today. He is receiving enteral feeding for nutritional support with Nepro at the rate of 50 mL an hour. He is stooling. Still sedation dependent. Unable to wean him off sedation because of a 6 and mean oxygen desaturations. I have approach the and the family with a possibility of ainsertion of a tracheostomy tube and a PEG tube for prolonged need of mechanical ventilation and failure for weaning. The patient has been intubated since 07/05/2020. The inflammatory markers from today shows an LDH level of 889, CRP is at 6 and the d-dimer is at 6.05. The patient has palpable pulses in his left upper extremity. She of his fingers are necrotic and the tip including the index, the platelet counts are stable and the patient is currently on Eliq uis 2.5 mg by mouth twice a day. Or 2020, the patient remains sedated with a combination of propofol and fentanyl running at 50 mcg/kg per minute for propofol and 1 mcg/kg per hour for fentanyl. He is sedated. In fact is deeply sedated. We are going to proceed with a sedation holiday on this patient today. He remains on a mechanical ventilator. He remains on a assist-control rate of 28, tidal volume of 450, FiO2 of 50% with a PEEP of 8. Attempts to wean the PEEP further failed and the patient became more hypoxic. As such, the patient is living At 8. This patient is a 7.26 with a pCO2 of 48 and pO2 of 71 today's blood gas. His chest x-ray showing stable bilateral pulmonary infiltrates essentially involving the lower lobes. ET tube is in a good location. Note that the patient is producing urine output in the order of 8200 mL an hour. His net fluid balance over the past 24 hours has been -83 mL. He has had a with a positive fluid balance for today. The findings on the case. The intent of the dialysis 3 times a week. His last dialysis was done on Sunday which is 2 days ago. His creatinine is up to 3.7 with a BUN of 84. Rest of the electrolytes are normal. Affect is running a lower sodium level of 1:30 with a potassium level of 4.1. Serum bicarbs at 20. In terms of his COVID-19 related pneumonia, the patient has a LDH level of 855, CRP level of 5.2 and his most recent d-dimer is at 5.4. He remains on steroids and he is on Decadron 6 mg IV every 24 hours. He did have a component of hit syndrome. This was related to heparin. He did receive Agratroban was ultimately discontinued once the patient's stated count picked up and it's platelet count is currently at 129. He does have necrotic fingers in his left upper extremity. Adequate pulses in the radial. No new vascular insults noted on today's examination. He is receiving enteral feeding for nutritional support and is currently on Nepro at the rate of 10 mL an hour. He is stooling. He is on Rocephin for strep in history of the blood cultures on 2 separate occasions. Otherwise, the blood cultures positive for coagulase-negative staph. Patient was reevaluated today on 07/19/2020, remains intubated and mechanically ventilated, he is off sedation and he is not showing any signs of neurological not responding to any stimuli. Patient is on assist control rate of 24th of volume 450 FiO2 50% and PEEP of 6. ABG showed a pO2 of 81 pCO2 41 pH of 7.31 patient is on enteral feeding. And he may undergo dialysis. We plan to have a tracheostomy and PEG tube placement in this patient, and he is basically a failure to wean. Today the sedation is placed on hold. Chest x-ray continues to show bilateral pulmonary infiltrates involving lower lobes. Endotracheal tube is in the proper position. Patient is making good urine, however his renal functioning seems to be getting worse. Electrolytes are normal. BUN is 91 creatinine 4.51 LDH is 893 liver enzymes are borderline elevated, C-reactive protein is 4.2 d-dimer 6.68. WBC count is 9.1 hemoglobin is 8.9 On 07/20/2020 patient seen in follow-up in intensive care unit, he was given daily traction of sedation yesterday, and his sedation was on hold for several hours and the patient never woke up over open his eyes or follow any commands, and as the day went on he started breathing fast, started desaturated and get agitated and was he was placed back on sedation on which she remains today, currently on Diprivan at 40 mics per kilo per minute, and fentanyl infusion at 1 mics per kilo per minute, and levo fed has been discontinued, he is on assist- control mode of ventilation with assist control rate of 24, tidal volumes of 4 50, FiO2 of 50% and PEEP of 6, this morning's blood gas shows pO2 of 92, pCO2 42, and pH is 7.32. He is in sinus mechanism, slightly tachycardic, his tube feedings are currently on hold in case of possibility of tracheostomy and PEG tube insertion however were still awaiting a response from his family on the decision in regards to proceeding with trach and PEG placement, today he is receiving hemodialysis treatment, and a 3 L in fluid was removed today. In terms of urine output he has been making urine in the order of 50-70 ML per hour, he remains on Lasix 80 mg twice daily, he remains on Rocephin for evidence of a beta-hemolytic strep in the sputum cultures, his follow-up sputum culture only showed Armida. History of resting comfortably in bed, he remains on IV dexamethasone 6 mg daily, has been off the levofed. Breasts labs have been reviewed, his white blood cell count is 8.1, hemoglobin is 8.1, his platelet count is 126, d-dimer is 13.3, sodium is 133, potassium 3.7, his renal function is relatively stable, with BUN of 82, and creatinine 4.51. These LDH is 792, CRP is 48. His had no acute events overnight, we spoke to his daughter yesterday in regards to patient's condition, and to discuss tracheostomy and PEG tube insertion, awaiting response from the family on their decision and the daughter indicated that patient had poor quality of life to start with and the were not sure if the workup and consent to the trach and PEG On 07/21/2000 patient seen in follow-up in the intensive care unit, yesterday he tolerated 11 hours of sedation holiday, and he was starting to follow simple commands, however is that day went on he was becoming more agitated and tachypneic, and he was placed back on sedation, currently on Diprivan at 40 mics per kilo per minute, and 0.9 at KVO, he remains intubated, on assist control mode of ventilation, with a rate of 24, Tylox 450, FiO2 of 50% and PEEP of 6, this morning's blood gases show pO2 133, pCO2 of 41, and pH is 7.38. Patient is resting comfortably, appears to be in no acute distress, he is not on any vasoactive drugs, no vasopressors, she is in sinus rhythm sinus tach with a rate of 90-106 BPM, hemodialysis treatment this morning, and attended have liters of fluid was taken off, his vital signs have been stable overnight, no fever or chills, lung sounds are diminished. She also remains on IV Lasix 80 mg twice da waylon, patient is producing urine in the order of 30-60 ML per hour, and she is in -4.1 L over the last 24 hours with additional -2.49 fluid balance since midnight last night. Chest x-ray shows interval improvement in bilateral airspace infiltrates particularly within the right upper lobe. Today's labs have been reviewed, showing white blood cell count 7.1, hemoglobin of 7.4, platelet count is 120, sodium is 130, potassium is 3.2, chloride is 104, CO2 of 23, BUN of 75 and creatinine of 4.01. Patient remains on Rocephin for beta-hemolytic strep in the sputum, repeat culture of the sputum showed only Armida. He is tolerating tube feedings which are on hold for tracheostomy and PEG tube placement which is scheduled for today. On 07/22/2020 patient seen in follow-up in intensive care unit, he remains sedated and trach to the ventilator, on assist-control mode of ventilation with a rate of 24, her lungs were 50, FiO2 50% and PEEP of 6, his blood gas shows pO2 of 169, pCO2 40, pH of 7.36, patient is currently on Diprivan at 55 mics per kilo per minute, he is on 0.9 normal saline at 10 ML per hour, Levophed that he is at 0.02 mics per kilo per minute. Patient is having hemodialysis treatment right now. Patient received tracheostomy and PEG tube yesterday. His hemodialysis access was switched to right subclavian approach. He still has a central line in his groin which will need to be switched to a PICC line. Today's chest x-ray showed bilateral multifocal and confluent opacities consistent with COVID-19 infection with no significant interval change. Vital signs have been stable, his sat 98% on the above mentioned settings, requiring small dose of Levafed. 2 feedings will be started sometime today, he is on Rocephin for evidence of 5 beta-hemolytic strep in the sputum, follow-up sputum culture only showed Armida albicans. She had no acute events overnight. He re leonila on Decadron 6 mg daily, he is Eliquis will be started tonight if it's okay with surgery. No other acute events overnight, and -2.4 L fluid balance over the last 24 hours. He does remains generally swollen. On 07/23/2020 patient seen in follow-up, in the intensive care unit, patient received tracheostomy and PEG tube insertion on 07/21/2020, he remains trached to the ventilator and is currently on assist control mode of ventilation with a rate of 24, tacrolimus 450, FiO2 45% and PEEP of 5, this morning's blood gas shows pO2 of 149, pCO2 of 43, and pH of 7.39, he was given a sedation holiday yesterday, however he did not wake up or start following commands, neurology completed a brain CT which showed decreased attenuation within the high right frontal lobe without cortical increased attenuation which could reflect petechial hemorrhage, patient is currently not on any anticoagulation, is Eliquis has been on hold since 07/19/2020 at 11:00 in the morning. His hemoglobin today 7.4, his platelet count is 115, his d-dimer is currently is 8.18 on this morning's labs. Patient is not on any aspirin, or Plavix or any other anticoagulants. Patient was resedated he is currently on 35 mics per kilo per minute of Diprivan, and 0.9 and is infusing at KVO, no other infusions. Hemodynamically he has remained stable, he is in sinus rhythm sinus tachycardia on the monitor, this morning his PEG tube became plugged when the crushed oral medications were being instilled through the PEG tube, surgery was notified, and the PEG tube was removed, NG tube will be inserted, however no tube feedings or oral medications are to be put down the NG tube at this point. Patient remains on Rocephin for evidence of beta-hemolytic strep in the sputum, yesterday his central line was discontinued and the tip was sent for culture and the culture is pending at this time, however overnight has been no fever, his vital signs have remained stable. He had hemodialysis on 07/21/2020 with removal of 2.5 L in fluids. Today's labs show sodium of 136, potassium 3.5, chloride is 104, CO2 is 22, BUN 54, and creatinine is 2.6, his renal profile is improving, and patient remains on IV Lasix 80 mg twice daily, he is producing urine in the order of 35-60 ML per hour. No other acute events overnight, neurology is following, and is to comment on the findings of the CT of the brain. Today's chest x-ray shows continued diffuse bilateral groundglass airspace disease/pulmonary edema, with continue small effusions with adjacent atelectasis. LDH is down to 640, and CRP is 5.6 On 07/24/2020 patient seen in follow-up in the intensive care unit, he remains trached to the ventilator on assist control mode of ventilation with a rate of 24, tidal is 450, FiO2 of 45% and PEEP of 5, this morning's blood gas shows pO2 of 150; pCO2 40, pH of 7.4, and FiO2 was dropped down to 40% based on the above mentioned blood gases, IV fluids are 0.9 normal saline at a rate of 10 ML per hour, and TPN is infusing at 30 ML per hour, not on any vasopressor support, and patient has been off sedation since yesterday morning, were told by the nursing staff that at times he was noted to be attempting to wiggle toes on command. Remains quite lethargic right now, she is not opening eyes to voice, he is not following commands, he is very weak. Chest x-ray today shows diffuse bilateral infiltrates. Tracheostomy hemodialysis catheter appear to be in appropriate positions, NG tube has been inserted yesterday, and peg tube was discontinued, and surgeries plan on replacing the PEG tube on Sunday. Neurology is following, patient has no signs of obvious seizure activity, he does have cough and a gag reflex. But remains very obtunded, today's labs have been reviewed, showing white blood cell count of 4.1, hemoglobin of 7.4, electrolytes were within normal limits, BUN is 68, and creatinine is 3.54. Patient remains on IV Lasix 80 mg twice daily, is in -856 over the last 24 hours, he is tolerating tube feedings, no diarrhea noted. Yesterday his d-dimer came back at 8.18. Patient remains off Eliquis, and he received 300 mg of rectal aspirin per neurology. His most recent brain CT showed previously noted area of subarachnoid hemorrhage associated with abnormal hypodensity posterior laterally in the right frontal lobe was again noted, not significantly changed. Neurology thinks patient has suffered acute ischemic stroke with a small right frontal region with mild petechial hemorrhage in the cortical ribbon On 07/26/2020 patient seen in follow-up in the intensive care unit, he remains trached to the ventilator, assist control mode of ventilation with a rate of 20 with tidal volumes were 450, FiO2 of 40% and PEEP of 5, displays blood gas shows pO2 of 122, pCO2 of 43, and pH of 7.42. He is 1.9 normal seen at 10 mL an hour, TPN is a 55 ML per hour, Cleviprex is a 7 mg per hour. He has been off Diprivan and for several days now, he just has a morphine sulfate for discomfort on as needed basis, he is waking up to touch and sometimes he follows simple commands, but he is extremely weak and unable to squeeze with his hands on command. His tube feedings have been on hold and he is supposed to have a PEG tube reinserted today, NG tube is in place to low intermittent suction a total of 450 ML of gastric drainage in the last 24 hours, urine output has been in the order of 100-200 ML per hour. He remains on IV Lasix at 80 mg every 12 hours, he is maintaining negative fluid balance of 1.5 L over the last 24 hours. Has been afebrile. Today's chest x-ray shows persistent but improving infiltrates throughout both lung paalfox. Today's labs show white blood cell count of 1.1, hemoglobin of 8.4, d-dimer is 11.69, patient has remained off anticoagulation for the PEG tube reinsertion today, sodium is 142, potassium is 4.2, chloride is 102, BUN is 90, creatinine is 3.54, AST is 72, ALT is 82. He is on IV Rocephin for evidence of beta-hemolytic strep in the sputum, and central line catheter tip was positive for Armida albicans. Patient has had no fever or chills. Partially patient has suffered an acute stroke with small subarachnoid hemorrhage, cardiology has been consulted for possibility if AGNIESZKA, which cardiology felt was not needed at this time. No other acute events overnight, no fever or chills, patient has not been able to receive his oral medications for high blood pressure, and has required Cleviprex. On 07/27/2020 patient seen in follow-up in intensive care unit, patient is trached to the ventilator with assist control mode of ventilation with a rate of 24, tidal volume was 450, FiO2 30% and PEEP of 5, no blood gases were done today, overnight he developed a fever with a temp of 101.9F, and today's blood work is down trending white count, neutropenia white blood cell count is 0.6, hemoglobin is 8.2, platelet count is 148, and there is a suspicion of p ossibility of fungal infection, and patient was started on Eraxis yesterday. New blood cultures and urine cultures have been sent, BMP shows a sodium of 140, potassium is 5.2, BUN of 103, and creatinine of 3.66, his inflammatory markers have been reviewed, and LDH is now within normal limits at 559, and CRP is 14.9. His central line catheter tip was positive for Armida albicans, his sputum back on 07/08/2020 was positive for beta-hemolytic strep. Urine culture is currently pending, ID service is following. Patient had a new PEG tube placed on 07/26/2020 he continues on TPN for nutritional support, anticipate restarting his tube feedings this afternoon if cleared by surgery. On 07/28/2020 patient seen in follow-up in the intensive care unit. Remains trached to the ventilator, on assist control mode of ventilation with a rate of 24, tacrolimus 450, FiO2 30%, and PEEP of 5, no new blood gases today. Today's chest x-ray showing stable portable chest, and no change in bibasilar opacities. Patient has remained off sedation, and he started to follow some simple commands, however his severe generally weak, he is unable to squeeze with his hands, he opens eyes to voice, withdraws from painful stimuli. today's labs reviewed showing white blood cell, 0.2, hemoglobin is 6.5, platelet count is 108, patient is pancytopenic, 1 unit of blood will be transfused today, sodium is 144, potassium is 4.4, chloride is 108, BUN of 119, creatinine is 3.9. No obvious source of bleeding at this time. Cultures have been sent, patient is currently on Eraxis for Armida albicans on the central line catheter tip, sputum. Patient remains on Rocephin for streptococcal pneumonia. He was febr ile in the last 24 hours with a T-max of 101.3F. He continues on IV Lasix, he is making urine in order of 100-120 ML per hour. Is on Nepro for nutritional support at 36 with a goal of 36 On 07/29/2020 patient seen in follow-up in the intensive care unit. Patient remains trached to the ventilator, with assist control mode of ventilation rate of 24, Tylenol is 450, FiO2 of 30%, and PEEP of 5. Patient's blood gas shows pO2 of 94, pCO2 of 39, and pH of 7.43, he is on 0.9 normal saline at 10 in the per hour, no other drips, and he is receiving nutritional support in the form of Nepro at 36 with a goal of 36 and 60 mL of water flushes every 4 hours per nephrology. He remains lethargic, generally weak. Per nursing staff patient is at times squeezing her finger on command. Brain CT was repeated showing evolving subacute hemorrhagic infarct in the right frontal lobe with no significant interval change, no new acute intracranial hemorrhage or midline shift. We restarted the patient on prophylactic anticoagulation in the form of Lovenox yesterday, today's labs have been reviewed, d-dimer is 3.83, white count is 0.2, hemoglobin is 7.0, platelet count is 142, sodium is 148, potassium is 3.8, and patient's renal function has worsened, and the Lasix is now on hold, free water flushes were increased by nephrology. Patient continues on Eraxis, and urine culture from 07/26/2020 showed Armida albicans, repeat urine culture has been sent, blood culture from 07/26/2020 showed no growth, final culture is pending. he has been afebrile. Rocephin has been discontinued, infectious dise ase has been consulted On 07/31/2020 patient seen in follow-up in intensive care unit, he opens eyes to voice, he turns had to voice, but unable to squeeze hands on command and follow command. He remains very generally weak, and continues to be somewhat encephalopathic although his level of consciousness has improved. He remains trached to the ventilator, with assist control mode of ventilation and the rate of 24, tidal vital was 450, FiO2 of 30% and PEEP of 5, this morning's blood gas shows pO2 of 104, pCO2 37, and pH of 7.44. This was done on FiO2 of 30%, yesterday he tolerated per support trial for about 5 hours, and was flipped back to assist control mode of ventilation related to respiratory fatigue. This morning he is maintaining O2 saturations at or above 96-98%, appears very c omfortable, and we will proceed with another trial of pressure-support ventilation. He is currently on 0.9 normal saline at 5 ML per hour, no other drips, he is not on any sedatives or narcotics, he is currently on Eraxis, and cefepime. ID service is following. His urine culture was positive for Armida albicans, and he had previously had beta-hemolytic streptococcus in his sputum. Repeat sputum culture was sent on 07/29/2020, and preliminary Gram stain shows many gram-positive cocci, moderate gram-positive bacilli, and a few gram- negative bacilli. Tracheostomy site was also cultured, and preliminary Gram stain shows many gram-positive cocci, many gram-positive bacilli, and many gram-negative bacilli. Today's labs have been reviewed, white blood cell, 0.2, hemoglobin is 7.0, platelet count is 89, his sodium remains elevated at 148, and nephrology is following and patient is receiving tube feedings in the form of Nepro at 36 ML per hour, with 75 ML of free water flushes every 1 hour. His chloride is 112, BUN is 152, and creatinine is 4.07. His renal function slightly worse than yesterday, his liver enzymes show improvement in his AST, slightly increased ALT and relatively stable alkaline phosphatase, his pro- calcitonin level from yesterday was at 1.39. His urinalysis from 07/28/2020 shows possibility of urinary tract infection. His urine output is in the order of 75-125 ML per hour, has been nonoliguric, no diarrhea. He is tolerating tube feedings. Does have some generalized swelling. We restarted patient's prophylactic Lovenox with hematology clearance, hematology is following and patient is currently on Zarxio On 08/01/2020 patient seen in follow-up in intensive care unit, yesterday he'll tolerated 30 minutes of pressure-support according to the nursing staff, became fatigued, and placed on assist-control mode of ventilation on which she remains this morning, with a rate of 24, tidal volume is 450, FiO2 of 30% and PEEP of 5. Patient is awake and alert, he closed his eyes on command, he has however very weak and unable to squeeze hands on command, and unable to wiggle toes. He is currently on D5W at a rate of 75 ML per hour, no other drips, he is on nutritional support in the form of Nepro at 36 with a goal of 36 and free water flushes of 75 ML per hour per nephrology. Today's blood gas has been reviewed showing pO2 of 121, pCO2 of 35, and pH of 7.44, this was done on FiO2 of 30%, there is the blood work has been reviewed showing white blood cell, 0.3, hemoglobin of 7.4, platelet count is 58, sodium is 145, potassium 4.0, chloride is 111, CO2 is 21, BUN of 156, creatinine is 3.46, his liver enzymes continue to worsen. His last pro-calcitonin from 07/30/2020 remains elevated at 1.39. Patient has been on Eraxis and cefepime, ID service is following, last urinalysis from 07/20/2020 showed urinary tract infection, urine cultures are positive for Armida. Patient continues on Lovenox at 30 mg daily, he is also on Zarxio for pancytopenia Objective - Vital Signs Vital signs: Vital Signs Temp 100.8 F H 08/01/20 08:00 Pulse 114 H 08/01/20 10:00 Resp 32 H 08/01/20 10:00 BP 140/89 08/01/20 10:00 Pulse Ox 91 L 08/01/20 10:00 Intake & Output 07/31/20 08/01/20 08/01/20 18:59 06:59 18:59 Intake Total 2002.0 2282 672 Output Total 1605 1250 935 Balance 397.0 1032 -263 Weight 104.8 kg Intake: IV 70.0 875 425 0.9 Normal Saline 20 Cefepime 1 gm In Sodium 50.0 50 50 Chloride 0.9% 50 ml @ 12. 5 mls/hr IVPB Q12HR [facility] Rx#:[id number] Dextrose 5% in Water 1, 825 375 000 ml @ 75 mls/hr IV . [id number] [facility] Rx#:[id number] Intake, IV Titration 600 75 100 Amount Anidulafungin 100 mg In 100 Sodium Chloride 0.9% 100 ml @ 84 mls/hr IVPB DAILY [facility] Rx#:[id number] Dextrose 5% in Water 1, 600 75 000 ml @ 75 mls/hr IV . [id number] [facility] Rx#:[id number] Tube Feeding 432 432 72 Other 900 900 75 Output: Urine 1605 1250 935 Other: Voiding Method Indwelling Catheter Indwelling Catheter Indwelling Catheter # Bowel Movements 1 ABP, PAP, CO, CI - Last Documented Arterial Blood Pressure 118/64 - Exam GENERAL EXAM: Encephalopathic morbidly obese 51-year-old white male, trached to the ventilator, on assist-control mode of ventilation with a 30% PEEP of 5, patient opens eyes to command, and turns head to voice but unable to move extremities related to severe generalized weakness comfortable in no apparent distress. HEAD: Normocephalic/atraumatic. EYES: Normal reaction of pupils, equal size. Conjunctiva pink, sclera white. NOSE: Clear with pink turbinates. THROAT: No erythema or exudates. NECK: No masses, no JVD, no thyroid enlargement, no adenopathy. Midline trach eostomy connected to the ventilator CHEST: No chest wall deformity. Symmetrical expansion. Right subclavian permacath in place and patient is receiving hemodialysis LUNGS: Equal air entry with no crackles, wheeze, rhonchi or dullness. CVS: Regular rate and rhythm, normal S1 and S2, no gallops, no murmurs, no rubs ABDOMEN: Soft, nontender. No hepatosplenomegaly, normal bowel sounds, no guarding or rigidity. PEG tube in place EXTREMITIES: No clubbing, generalized edema no cyanosis, 2+ pulses and upper and lower extremities. Patient has black fingertips on his left hand MUSCULOSKELETAL: Muscle strength and tone normal. Right groin temporary hemodialysis catheter in place SPINE: No scoliosis or deformity SKIN: No rashes CENTRAL NERVOUS SYSTEM: Encephalopathic, but opens eyes to voice, turns head to voice, trached to the ventilator No focal deficits, tone is normal in all 4 extremities. - Labs CBC & Chem 7: 08/01/20 03:08 08/01/20 03:08 Labs: Abnormal Lab Results - Last 24 Hours (Table) 07/31/20 07/31/20 07/31/20 Range/Units 11:29 17:25 18:49 WBC (3.8-10.6) k/uL RBC (4.30-5.90) m/uL Hgb (13.0-17.5) gm/dL Hct (39.0-53.0) % RDW (11.5-15.5) % Plt Count (150-450) k/uL ABG pO2 (83-108) mmHg ABG Total CO2 (19-24) mmol/L ABG O2 Saturation (94-97) % Chloride (98-107) mmol/L Carbon Dioxide (22-30) mmol/L BUN (9-20) mg/dL Creatinine (0.66-1.25) mg/dL Glucose (74-99) mg/dL POC Glucose (mg/dL) 144 H 147 H 151 H (75-99) mg/dL Total Bilirubin (0.2-1.3) mg/dL AST (17-59) U/L ALT (4-49) U/L Alkaline Phosphatase (38-126) U/L Total Protein (6.3-8.2) g/dL Albumin (3.5-5.0) g/dL 07/31/20 08/01/20 08/01/20 Range/Units 23:53 03:08 03:08 WBC 0.3 L* (3.8-10.6) k/uL RBC 2.41 L (4.30-5.90) m/uL Hgb 7.4 L (13.0-17.5) gm/dL Hct 22.5 L (39.0-53.0) % RDW 16.3 H (11.5-15.5) % Plt Count 58 L (150-450) k/uL ABG pO2 (83-108) mmHg ABG Total CO2 (19-24) mmol/L ABG O2 Saturation (94-97) % Chloride 111 H (98-107) mmol/L Carbon Dioxide 21 L (22-30) mmol/L BUN 156 H* (9-20) mg/dL Creatinine 3.46 H (0.66-1.25) mg/dL Glucose 136 H (74-99) mg/dL POC Glucose (mg/dL) 129 H (75-99) mg/dL Total Bilirubin 3.8 H (0.2-1.3) mg/dL AST 190 H (17-59) U/L ALT 287 H (4-49) U/L Alkaline Phosphatase 253 H (38-126) U/L Total Protein 5.0 L (6.3-8.2) g/dL Albumin 2.6 L (3.5-5.0) g/dL 08/01/20 08/01/20 Range/Units 05:20 05:48 WBC (3.8-10.6) k/uL RBC (4.30-5.90) m/uL Hgb (13.0-17.5) gm/dL Hct (39.0-53.0) % RDW (11.5-15.5) % Plt Count (150-450) k/uL ABG pO2 121 H (83-108) mmHg ABG Total CO2 25 H (19-24) mmol/L ABG O2 Saturation 98.8 H (94-97) % Chloride (98-107) mmol/L Carbon Dioxide (22-30) mmol/L BUN (9-20) mg/dL Creatinine (0.66-1.25) mg/dL Glucose (74-99) mg/dL POC Glucose (mg/dL) 143 H (75-99) mg/dL Total Bilirubin (0.2-1.3) mg/dL AST (17-59) U/L ALT (4-49) U/L Alkaline Phosphatase (38-126) U/L Total Protein (6.3-8.2) g/dL Albumin (3.5-5.0) g/dL Microbiology - Last 24 Hours (Table) 07/29/20 19:47 Gram Stain - Final Sputum Sputum Culture - Final 07/26/20 22:06 Blood Culture - Preliminary Blood No Growth after 120 hours 07/28/20 11:45 Blood Culture - Preliminary Blood No Growth after 72 hours Assessment and Plan Plan: Assessment: #1. Acute hypoxic respiratory failure secondary to COVID-19 pneumonia. Patient received toci and convalescent plasma., Patient is status post tracheostomy and PEG tube placement on 07/21/2020. #2. Neutropenia, possibly related to sepsis and fungal urinary tract infection, urine cultures showed Armida. #3. Acute ischemic stroke, in right frontal region with mild petechial hemorrhage in the cortical ribbon #4. Acute kidney injury requiring dialysis, worsening #5. Altered mental status, related to toxic metabolic encephalopathy, severe, r elated to multiple organ dysfunction #6. Possible petechial hemorrhage within the right frontal lobe, seen on the CT of the brain, neurology is following #7. Severe metabolic acidosis, improved and resolved after dialysis. #8. Hyperkalemia secondary to above, improved with hemodialysis #9. Benign essential hypertension. #10. Superficial vein thromboses and left cephalic vein and left basilic vein #11. Heparin-induced thrombocytopenia, patient was on Argatroban and Eliquis which are on hold right now #12. History of obstructive sleep apnea syndrome #13. Morbid obesity #14. Increased d-dimer related to COVID-19, patient was started on Eliquis which will be restarted after his surgical procedures #15. Plugged PEG tube, status post PEG tube revision on 07/26/2020 #16. Pancytopenia, likely related to sepsis, hematology is following, on Zarxio #17. Critical illness polyneuropathy, severe generalized weakness Plan: We'll try the pressure support trials again today with pressure support of 10 and CPAP of 5 May return to assist-control mode of ventilation if becomes tired Fluids and free water flushes per nephrology Continue Lovenox at prophylactic dose We'll obtain follow-up d-dimer today Continue following blood counts, hematology recs Continue following cultures Physical therapy consultation for eval and treat Social work consultation for LTAC placement Awaiting approval from the patient's insurance company for LTAC placement I performed a history & physical examination of the patient and discussed their management with my nurse practitioner, Nelia Conley. I reviewed the nurse practitioner's note and agree with the documented findings and plan of care. Lung sounds are positive for diminished breath sounds The findings and the impression was discussed with the patient. I attest to the documentation by the nurse practitioner. Time with Patient: Greater than 30
[2020-08-01 11:38] LABS: Glucose,Whole Blood 131 mg/dL (75-99)
--- NOTE | 2020-08-01 12:44 | P.PN ---
Subjective Progress Note Date: 08/01/20 Follow-up for acute kidney injury. On dialysis, last hemodialysis on 07/22/2020. Good urine output about 2.8 L last 24 hours. Objective - Vital Signs Vital signs: Vital Signs Temp 100.8 F H 08/01/20 08:00 Pulse 100 08/01/20 11:00 Resp 31 H 08/01/20 11:00 BP 135/88 08/01/20 11:00 Pulse Ox 96 08/01/20 11:00 Intake & Output 07/31/20 08/01/20 08/01/20 18:59 06:59 18:59 Intake Total 2002.0 2282 747 Output Total 1605 1250 1050 Balance 397.0 1032 -303 Weight 104.8 kg Intake: IV 70.0 875 500 0.9 Normal Saline 20 Cefepime 1 gm In Sodium 50.0 50 50 Chloride 0.9% 50 ml @ 12. 5 mls/hr IVPB Q12HR [facility] Rx#:[id number] Dextrose 5% in Water 1, 825 450 000 ml @ 75 mls/hr IV . [id number] [facility] Rx#:[id number] Intake, IV Titration 600 75 100 Amount Anidulafungin 100 mg In 100 Sodium Chloride 0.9% 100 ml @ 84 mls/hr IVPB DAILY [facility] Rx#:[id number] Dextrose 5% in Water 1, 600 75 000 ml @ 75 mls/hr IV . [id number] [facility] Rx#:[id number] Tube Feeding 432 432 72 Other 900 900 75 Output: Urine 1605 1250 1050 Other: Voiding Method Indwelling Catheter Indwelling Catheter Indwelling Catheter # Bowel Movements 1 ABP, PAP, CO, CI - Last Documented Arterial Blood Pressure 118/64 - Exam Refer to primary team exam COVID-19 isolation - Labs CBC & Chem 7: 08/01/20 03:08 08/01/20 03:08 Labs: Abnormal Lab Results - Last 24 Hours (Table) 07/31/20 07/31/20 07/31/20 Range/Units 17:25 18:49 23:53 WBC (3.8-10.6) k/uL RBC (4.30-5.90) m/uL Hgb (13.0-17.5) gm/dL Hct (39.0-53.0) % RDW (11.5-15.5) % Plt Count (150-450) k/uL ABG pO2 (83-108) mmHg ABG Total CO2 (19-24) mmol/L ABG O2 Saturation (94-97) % Chloride (98-107) mmol/L Carbon Dioxide (22-30) mmol/L BUN (9-20) mg/dL Creatinine (0.66-1.25) mg/dL Glucose (74-99) mg/dL POC Glucose (mg/dL) 147 H 151 H 129 H (75-99) mg/dL Total Bilirubin (0.2-1.3) mg/dL AST (17-59) U/L ALT (4-49) U/L Alkaline Phosphatase (38-126) U/L Total Protein (6.3-8.2) g/dL Albumin (3.5-5.0) g/dL 08/01/20 08/01/20 08/01/20 Range/Units 03:08 03:08 05:20 WBC 0.3 L* (3.8-10.6) k/uL RBC 2.41 L (4.30-5.90) m/uL Hgb 7.4 L (13.0-17.5) gm/dL Hct 22.5 L (39.0-53.0) % RDW 16.3 H (11.5-15.5) % Plt Count 58 L (150-450) k/uL ABG pO2 121 H (83-108) mmHg ABG Total CO2 25 H (19-24) mmol/L ABG O2 Saturation 98.8 H (94-97) % Chloride 111 H (98-107) mmol/L Carbon Dioxide 21 L (22-30) mmol/L BUN 156 H* (9-20) mg/dL Creatinine 3.46 H (0.66-1.25) mg/dL Glucose 136 H (74-99) mg/dL POC Glucose (mg/dL) (75-99) mg/dL Total Bilirubin 3.8 H (0.2-1.3) mg/dL AST 190 H (17-59) U/L ALT 287 H (4-49) U/L Alkaline Phosphatase 253 H (38-126) U/L Total Protein 5.0 L (6.3-8.2) g/dL Albumin 2.6 L (3.5-5.0) g/dL 08/01/20 08/01/20 Range/Units 05:48 11:36 WBC (3.8-10.6) k/uL RBC (4.30-5.90) m/uL Hgb (13.0-17.5) gm/dL Hct (39.0-53.0) % RDW (11.5-15.5) % Plt Count (150-450) k/uL ABG pO2 (83-108) mmHg ABG Total CO2 (19-24) mmol/L ABG O2 Saturation (94-97) % Chloride (98-107) mmol/L Carbon Dioxide (22-30) mmol/L BUN (9-20) mg/dL Creatinine (0.66-1.25) mg/dL Glucose (74-99) mg/dL POC Glucose (mg/dL) 143 H 131 H (75-99) mg/dL Total Bilirubin (0.2-1.3) mg/dL AST (17-59) U/L ALT (4-49) U/L Alkaline Phosphatase (38-126) U/L Total Protein (6.3-8.2) g/dL Albumin (3.5-5.0) g/dL Microbiology - Last 24 Hours (Table) 07/30/20 10:12 Gram Stain - Final Neck Wound Culture - Final 07/29/20 19:47 Gram Stain - Final Sputum Sputum Culture - Final 07/26/20 22:06 Blood Culture - Preliminary Blood No Growth after 120 hours 07/28/20 11:45 Blood Culture - Preliminary Blood No Growth after 72 hours Assessment and Plan Assessment: #1 nonoliguric acute kidney injury secondary to Covid 19 pneumonia ATN. Baseline creatinine 0.7 MG per DL. #2 Covid 19 pneumonia on ventilator #3 hypernatremia secondary to decreased by mouth intake #4 septic shock resolved currently off pressors #5 hyperkalemia improved Plan: #1 currently off dialysis, monitor renal function. #2 continue with free water via feeding tube at 75 ML's an hour. Stop D5 water at 75 ML's an hour IV #3 good urine output, avoid diuretics #4 avoid nephrotoxic agents and hypotensive episodes. #5 if renal function stable with good urine output discontinue Santiago catheter tomorrow.
[2020-08-01] MEDS: HYDROmorphone 0.5 MG/0.5 ML SYRINGE IVP PRN (13:41)
--- NOTE | 2020-08-01 16:27 | P.PN ---
Subjective Progress Note Date: 08/01/20 CHIEF COMPLAINT: COVID pneumonia HISTORY OF PRESENT ILLNESS: The patient is a 59 year old male with Covid pneumonia status post trach and PEG. The patient remains in the ICU ventilated and sedated. He is able to awake. He has sepsis with multi-organism infection along his trach site. He also has yeast infection for urine culture. Overall, patient globally weak. REVIEW OF ORGAN SYSTEMS: On mechanical ventilation. Otherwise unable to answer with vent PHYSICAL EXAM: VITALS: Reviewed CONSTITUTIONAL: Well developed and in no acute distress. EYES: Conjuctivae without sclera icterus. HEAD, EARS, NOSE, THROAT: Head is atraumatic, normocephalic. Trach intact. RESPIRATORY: Non-labored respirations and equal bilateral excursions. No gross wheezes. Mechanical ventilation CARDIOVASCULAR: Palpable 2+ radial pulses. ABDOMEN: No peritonitis. G-tube intact. NEUROLOGIC: No focal or lateralizing signs PSYCH: Awaken to commands. MUSCULOSKELETAL: No clubbing. No cyanosis. CLINCAL LABS: Reviewed. WBC low with leukopenia, less than 1.0. Creatinine over 4.0 now down to 3.46. Platelets low with thrombocytopenia at 59 ASSESSMENT: 1. COVID pneumonia 2. Status post trach and PEG 3. Acute renal failure 4. Leukopenia 5. Sepsis PLAN: 1. Overall, patient has compromised immune system with bone marrow suppression. Continue IV antibiotics. 2. Overall prognosis is very guarded. Objective - Vital Signs Vital signs: Vital Signs Temp 97.8 F 08/01/20 16:00 Pulse 89 08/01/20 16:00 Resp 24 08/01/20 16:00 BP 113/73 08/01/20 16:00 Pulse Ox 100 08/01/20 16:00 Intake & Output 07/31/20 08/01/20 08/01/20 18:59 06:59 18:59 Intake Total 2002.0 2282 783 Output Total 1605 1250 1050 Balance 397.0 1032 -267 Weight 104.8 kg Intake: IV 70.0 875 500 0.9 Normal Saline 20 Cefepime 1 gm In Sodium 50.0 50 50 Chloride 0.9% 50 ml @ 12. 5 mls/hr IVPB Q12HR [facility] Rx#:[id number] Dextrose 5% in Water 1, 825 450 000 ml @ 75 mls/hr IV . [id number] ONE Rx#:[id number] Intake, IV Titration 600 75 100 Amount Anidulafungin 100 mg In 100 Sodium Chloride 0.9% 100 ml @ 84 mls/hr IVPB DAILY [facility] Rx#:[id number] Dextrose 5% in Water 1, 600 75 000 ml @ 75 mls/hr IV . [id number] ONE Rx#:[id number] Tube Feeding 432 432 108 Other 900 900 75 Output: Urine 1605 1250 1050 Other: Voiding Method Indwelling Catheter Indwelling Catheter Indwelling Catheter # Bowel Movements 1 ABP, PAP, CO, CI - Last Documented Arterial Blood Pressure 118/64 - Labs CBC & Chem 7: 08/01/20 03:08 08/01/20 03:08 Labs: Abnormal Lab Results - Last 24 Hours (Table) 07/31/20 07/31/20 07/31/20 Range/Units 17:25 18:49 23:53 WBC (3.8-10.6) k/uL RBC (4.30-5.90) m/uL Hgb (13.0-17.5) gm/dL Hct (39.0-53.0) % RDW (11.5-15.5) % Plt Count (150-450) k/uL ABG pO2 (83-108) mmHg ABG Total CO2 (19-24) mmol/L ABG O2 Saturation (94-97) % Chloride (98-107) mmol/L Carbon Dioxide (22-30) mmol/L BUN (9-20) mg/dL Creatinine (0.66-1.25) mg/dL Glucose (74-99) mg/dL POC Glucose (mg/dL) 147 H 151 H 129 H (75-99) mg/dL Total Bilirubin (0.2-1.3) mg/dL AST (17-59) U/L ALT (4-49) U/L Alkaline Phosphatase (38-126) U/L Total Protein (6.3-8.2) g/dL Albumin (3.5-5.0) g/dL 08/01/20 08/01/20 08/01/20 Range/Units 03:08 03:08 05:20 WBC 0.3 L* (3.8-10.6) k/uL RBC 2.41 L (4.30-5.90) m/uL Hgb 7.4 L (13.0-17.5) gm/dL Hct 22.5 L (39.0-53.0) % RDW 16.3 H (11.5-15.5) % Plt Count 58 L (150-450) k/uL ABG pO2 121 H (83-108) mmHg ABG Total CO2 25 H (19-24) mmol/L ABG O2 Saturation 98.8 H (94-97) % Chloride 111 H (98-107) mmol/L Carbon Dioxide 21 L (22-30) mmol/L BUN 156 H* (9-20) mg/dL Creatinine 3.46 H (0.66-1.25) mg/dL Glucose 136 H (74-99) mg/dL POC Glucose (mg/dL) (75-99) mg/dL Total Bilirubin 3.8 H (0.2-1.3) mg/dL AST 190 H (17-59) U/L ALT 287 H (4-49) U/L Alkaline Phosphatase 253 H (38-126) U/L Total Protein 5.0 L (6.3-8.2) g/dL Albumin 2.6 L (3.5-5.0) g/dL 08/01/20 08/01/20 Range/Units 05:48 11:36 WBC (3.8-10.6) k/uL RBC (4.30-5.90) m/uL Hgb (13.0-17.5) gm/dL Hct (39.0-53.0) % RDW (11.5-15.5) % Plt Count (150-450) k/uL ABG pO2 (83-108) mmHg ABG Total CO2 (19-24) mmol/L ABG O2 Saturation (94-97) % Chloride (98-107) mmol/L Carbon Dioxide (22-30) mmol/L BUN (9-20) mg/dL Creatinine (0.66-1.25) mg/dL Glucose (74-99) mg/dL POC Glucose (mg/dL) 143 H 131 H (75-99) mg/dL Total Bilirubin (0.2-1.3) mg/dL AST (17-59) U/L ALT (4-49) U/L Alkaline Phosphatase (38-126) U/L Total Protein (6.3-8.2) g/dL Albumin (3.5-5.0) g/dL Microbiology - Last 24 Hours (Table) 07/28/20 11:45 Blood Culture - Preliminary Blood No Growth after 96 hours 07/30/20 10:12 Gram Stain - Final Neck Wound Culture - Final 07/29/20 19:47 Gram Stain - Final Sputum Sputum Culture - Final 07/26/20 22:06 Blood Culture - Preliminary Blood No Growth after 120 hours
[2020-08-01] MEDS: SODIUM CHLORIDE 0.9% 1,000 ML IV SCH (17:09)
[2020-08-01 17:32] LABS: Glucose,Whole Blood 134 mg/dL (75-99)
[2020-08-01] MEDS: FILGRASTIM-SNDZ 480 MCG/0.8 ML SYRINGE SQ SCH (17:37)
--- NOTE | 2020-08-01 22:10 | P.PN ---
Subjective This is a pleasant 53 years old male with past medical history of hypertension, osteoarthritis, sleep apnea. Presents with respiratory distress secondary to covid pneumonia and secondary bacterial infection is suspected as well with positive sputum culture for streptococcus, group C. Currently remains on ceftriaxone per ID team. Patient has prolonged course in the ICU. He was on mechanical ventilation and need a small dose of Levophed at the beginning , Also patient has elevated troponin and he was started on heparin drip however he developed coffee-ground emesis via anicteric tube, heparin drip was stopped and hemoglobin is stable and his hit antibodies came back positive, [employer] found to his elevated troponin is secondary to his Covid infection and hypotension, he was started on argatroban drip for suspected left hand ischemia . Currently he kept on aspirin one 50 mg rectally daily, with no any anticoagulation, Eliquis is held for PEG tube placement His renal function worsened at certain point needing hemodialysis due to his Covid infectionl, nonoliguric. Currently he is off dialysis Receiving nutrition through TPN, and scheduled for PEG tube placement today Plan for him was to go to LTAC wants PEG tube was placed and functional Patient is currently on eraxis, he is also on dexamethasone , Lasix IV 80 mg twice daily, Protonix 40 mg IV twice macey I called his medical insurance provider [employer] at [phone] extension [phone] at 2 PM, however the midline was 2 PM today , of physicians were busy per staff and they said they will call me tomorrow 8:30-8:40 5 AM, I provided my cell phone to [employer] 07/27/2020 Patient remains in the ICU, his vent dependent. Status post tracheostomy. He got his PEG tube yesterday and start tube feeding today.. Associated with leukopenia He tolerated that well so far per ICU nurse. His postoperative go to LTAC tomorrow if he was going to be stable however he is a spiking temperature last night and today 101.9 Labs today showing leukopenia with ellipses 0.6, hemoglobin stable 8.2 as well as platelets 148 k. . Glucose control, creatinine 3.6 which is a stable over the last 10 days. inflammatory markers still elevated but stable with ferritin is 35. Total jennifer irubin is 3.4, liver enzymes mildly elevated with AST 79 and AFP 115, C-reactive protein is elevated at 14.9 Chest x-ray showing bilateral multifocal opacity most prominent in the apices and bases on background low lung volume consistent with COVID-19 infection. No interval change from one day earlier Currently patient kept on Eraxis, ceftriaxone. Also she is on dexamethasone 4 mg IV daily, Lasix 80 mg IV daily. Today I did appear to be with Dr. Johnson from [facility], unfortunately she rejected the case stating there is no documentation of weaning. I tried to explain to her that usually we do a sedation holiday and weaning trial prior to any tracheostomy under the care of critical care team however she was asking where in the chart documented, it was difficult to locate documentation about weaning trial in this patient with more than 3 weeks hospital stays and in a few minutes over the phone, eventually she ejected the case as above. Discussed with public health social worker 07/28/2020 Patient remains in the ICU on mechanical ventilation with pulmonary/critical care team help with vent management Patient hemodynamically stable Labs showing leukopenia 0.2K, hemoglobin is 6.5 and platelets 108, after 1 unit of blood transfusion hemoglobin went up to 7.3 and platelet with a 3. Creatinine is 3.9, compared to 3.[address] of the brain showing evolving subacute hemorrhagic infarct of the right frontal lobe shows no significant interval change 1 unit of blood is ordered today. Hematology team consulted for severe leukopenia and throughout its due to his severe critical illness and bone marrow suppression and continue the current management and transfuse as needed further recommendations Currently patient kept on Eraxis, Also she is on dexamethasone 4 mg IV daily, Lasix 80 mg IV daily. Ceftriaxone was discontinued today With the help of the public health social worker, today signed a letter to his medical insurance provider to approve for his LTAC transfer, the patient was sent today, explaining that LTAC is the main way to treat him , Also as per my discussion with public health social worker Ryan, critical care team also will try to contact Lynn 07/29/2020 Patient remains in the ICU on mechanical ventilation with pulmonary/critical care team on the case Patient is currently on erxis for fungal UTI. filgastrim was added for severe leukopenia of 0.2 and we'll monitor response Despite history of subacute hemorrhagic infarct, patient is a started on Lovenox for DVT prophylaxis and aspirin 300 mg by pulmonary and cardiology teams, we'll keep monitoring her closely. 07/30/2020 07/30/2020 Patient remains in the ICU on mechanical ventilation with pulmonary/critical care team on the case Patient still has low-grade fever of 99.9 today. He is Tachypneic and tachycardic but blood pressure is stable. Still has significant leukopenia with WBC of 0.2 number hemoglobin 7.2 she is stable. Platelet count 113K. Neurology service signed off today. He remains on Eraxis but because of his persistent fever., Cefepime added today. Infectious disease team of the case 07/31/2020 Patient remains in the ICU on mechanical ventilation with pulmonary/critical care team on the case Patient still has low-grade fever of 100 today. He is Tachypneic and tachycardic but blood pressure is stable. Still has significant leukopenia with WBC of 0.2 number hemoglobin 7.0 she is stable. Platelet count 89K. Patient is currently on cefepime and Eraxis, per ID team recommendation Sodium 148, glucose is stable. Liver enzymes were mildly elevated. Chest x-ray: No change D5W at 75 mL/h. For hypernatremia. 08/01/20 Patient remains in the ICU on mechanical ventilation with pulmonary/critical care team on the case Patient still has low-grade fever of 100 today. He is Tachypneic and tachycardic but blood pressure is stable. Still has significant leukopenia with WBC of 0.23 number hemoglobin 7.4 she is stable. Platelet count 58K. Patient is currently on cefepime and Eraxis, per ID team recommendation Sodium 145 (back to normal), glucose is stable. Liver enzymes were mildly elevated. Chest x-ray: No change. Diffuse interstitial infiltrate correlate for CHF versus interstitial pneumonia. Findings stable D5W at 75 mL/ stopped Objective - Vital Signs Vital signs: Vital Signs Temp 100.8 F H 08/01/20 08:00 Pulse 100 08/01/20 11:00 Resp 31 H 08/01/20 11:00 BP 135/88 08/01/20 11:00 Pulse Ox 96 08/01/20 11:00 Intake & Output 07/31/20 08/01/20 08/01/20 18:59 06:59 18:59 Intake Total 2002.0 2282 747 Output Total 1605 1250 1050 Balance 397.0 1032 -303 Weight 104.8 kg Intake: IV 70.0 875 500 0.9 Normal Saline 20 Cefepime 1 gm In Sodium 50.0 50 50 Chloride 0.9% 50 ml @ 12. 5 mls/hr IVPB Q12HR [facility] Rx#:[id number] Dextrose 5% in Water 1, 825 450 000 ml @ 75 mls/hr IV . [id number] ONE Rx#:[id number] Intake, IV Titration 600 75 100 Amount Anidulafungin 100 mg In 100 Sodium Chloride 0.9% 100 ml @ 84 mls/hr IVPB DAILY [facility] Rx#:[id number] Dextrose 5% in Water 1, 600 75 000 ml @ 75 mls/hr IV . [id number] ONE Rx#:[id number] Tube Feeding 432 432 72 Other 900 900 75 Output: Urine 1605 1250 1050 Other: Voiding Method Indwelling Catheter Indwelling Catheter Indwelling Catheter # Bowel Movements 1 ABP, PAP, CO, CI - Last Documented Arterial Blood Pressure 118/64 - Exam -GENERAL: The patient is intubated and sedated, well nourished. HEENT: Pupils are round and equally reacting to light. EOMI. No scleral icterus. No conjunctival pallor. Normocephalic, atraumatic. No pharyngeal erythema. No thyromegaly. CARDIOVASCULAR: S1 and S2 present. No murmurs, rubs, or gallops. PULMONARY: Chest is clear to auscultation, no wheezing or crackles. ABDOMEN: Soft, nontender, nondistended, normoactive bowel sounds. No palpable organomegaly. MUSCULOSKELETAL: No joint swelling or deformity. EXTREMITIES: No cyanosis, clubbing, or pedal edema. NEUROLOGICAL: Gross neurological examination did not reveal any focal deficits. SKIN: No rashes. no petechiae. - Labs CBC & Chem 7: 08/01/20 03:08 08/01/20 03:08 Labs: Abnormal Lab Results - Last 24 Hours (Table) 07/31/20 07/31/20 07/31/20 Range/Units 17:25 18:49 23:53 WBC (3.8-10.6) k/uL RBC (4.30-5.90) m/uL Hgb (13.0-17.5) gm/dL Hct (39.0-53.0) % RDW (11.5-15.5) % Plt Count (150-450) k/uL ABG pO2 (83-108) mmHg ABG Total CO2 (19-24) mmol/L ABG O2 Saturation (94-97) % Chloride (98-107) mmol/L Carbon Dioxide (22-30) mmol/L BUN (9-20) mg/dL Creatinine (0.66-1.25) mg/dL Glucose (74-99) mg/dL POC Glucose (mg/dL) 147 H 151 H 129 H (75-99) mg/dL Total Bilirubin (0.2-1.3) mg/dL AST (17-59) U/L ALT (4-49) U/L Alkaline Phosphatase (38-126) U/L Total Protein (6.3-8.2) g/dL Albumin (3.5-5.0) g/dL 08/01/20 08/01/20 08/01/20 Range/Units 03:08 03:08 05:20 WBC 0.3 L* (3.8-10.6) k/uL RBC 2.41 L (4.30-5.90) m/uL Hgb 7.4 L (13.0-17.5) gm/dL Hct 22.5 L (39.0-53.0) % RDW 16.3 H (11.5-15.5) % Plt Count 58 L (150-450) k/uL ABG pO2 121 H (83-108) mmHg ABG Total CO2 25 H (19-24) mmol/L ABG O2 Saturation 98.8 H (94-97) % Chloride 111 H (98-107) mmol/L Carbon Dioxide 21 L (22-30) mmol/L BUN 156 H* (9-20) mg/dL Creatinine 3.46 H (0.66-1.25) mg/dL Glucose 136 H (74-99) mg/dL POC Glucose (mg/dL) (75-99) mg/dL Total Bilirubin 3.8 H (0.2-1.3) mg/dL AST 190 H (17-59) U/L ALT 287 H (4-49) U/L Alkaline Phosphatase 253 H (38-126) U/L Total Protein 5.0 L (6.3-8.2) g/dL Albumin 2.6 L (3.5-5.0) g/dL 08/01/20 08/01/20 Range/Units 05:48 11:36 WBC (3.8-10.6) k/uL RBC (4.30-5.90) m/uL Hgb (13.0-17.5) gm/dL Hct (39.0-53.0) % RDW (11.5-15.5) % Plt Count (150-450) k/uL ABG pO2 (83-108) mmHg ABG Total CO2 (19-24) mmol/L ABG O2 Saturation (94-97) % Chloride (98-107) mmol/L Carbon Dioxide (22-30) mmol/L BUN (9-20) mg/dL Creatinine (0.66-1.25) mg/dL Glucose (74-99) mg/dL POC Glucose (mg/dL) 143 H 131 H (75-99) mg/dL Total Bilirubin (0.2-1.3) mg/dL AST (17-59) U/L ALT (4-49) U/L Alkaline Phosphatase (38-126) U/L Total Protein (6.3-8.2) g/dL Albumin (3.5-5.0) g/dL Microbiology - Last 24 Hours (Table) 07/28/20 11:45 Blood Culture - Preliminary Blood No Growth after 96 hours 07/30/20 10:12 Gram Stain - Final Neck Wound Culture - Final 07/29/20 19:47 Gram Stain - Final Sputum Sputum Culture - Final 07/26/20 22:06 Blood Culture - Preliminary Blood No Growth after 120 hours Assessment and Plan Assessment: Acute Covid pneumonia New fever and leukopenia, secondary to fungal UTI. ID team on the case Acute hypoxic respiratory failure needing mechanical ventilation Acute kidney injury needed hemodialysis , currently he is off HD Acute hemorrhagic stroke , right frontal region with mild petechial hemorrhage in the cortical ribbon. AMS secondary to metabolic encephalogpathy and stroke, s/p PEG placement and tracheostomy as he could not be weaned off m.ventilation Suspected ischemia of the left hand on anticoagulation , resolved now Coffee ground vomiting with suspected acute GI bleed Thrombocytopenia secondary to sepsis and heparin induced thrombocytopenia Severe leukopenia secondary to Covid infection Elevated troponin, secondary to renal function impairment, viral infection and hypotension Plan: This is a pleasant 59 years old male who presents with Covid pneumonia, on mechanical ventilation and AMS. Continue with mechanical ventilation for pulmonary/critical care team will follow the patient closely.Continue with multiple vitamin zinc and vitamin D c/w eraxis for UTI and filgastrim for leukopenia GI and cardiology, nephrology , hematology teams on the case aspirin as per neurology team Labs and medication were reviewed.. Continue same treatment. Continue with symptomatic treatment. Resume home medication. Monitor lytes and vitals. DVT and GI prophylaxis. Further recommendations as per clinical course of the patient DVT prophylaxis: eliquis on hold . Continue with DVT prophylaxis as per critical care team, lovenox is added GI Prophylaxis: Ppi, Protonix twice a day Prognosis is guarded The peel was sent to his public health social worker provider Lynn
[2020-08-01 23:26] LABS: Glucose,Whole Blood 127 mg/dL (75-99)
[2020-08-02] MEDS: HYDROmorphone 0.5 MG/0.5 ML SYRINGE IVP PRN ×3 (01:48→22:16)
[2020-08-02 04:15] LABS: Anisocytosis Slight; HCT 22.8 % (39.0-53.0); HGB 7.4 gm/dL (13.0-17.5); Hypochromasia Slight; MCH 29.9 pg (25.0-35.0); MCHC 32.4 g/dL (31.0-37.0); MCV 92.3 fL (80.0-100.0); Mean Platelet Volume 10.7; RBC 2.47 m/uL (4.30-5.90); RDW 16.2 % (11.5-15.5)
[2020-08-02 04:20] LABS: WBC 0.3 k/uL (3.8-10.6)
[2020-08-02 04:38] LABS: Anisocytosis (M) Present; Platelet Count 38 k/uL (150-450)
--- NOTE | 2020-08-02 04:41 | PN ---
PROGRESS NOTE DATE OF SERVICE: 08/01/2020 REASON FOR FOLLOWUP: Pneumonia and UTI. INTERVAL HISTORY: Patient is currently afebrile. This morning, he did have a low grade fever of 100.8. The patient is hemodynamically stable, not on any pressor support. The patient's FiO2 is currently at 25%. No significant purulent secretions through the ET reported. He did have some diarrhea. PHYSICAL EXAMINATION: Blood pressure 131/83 with a pulse of 98, temperature 98.8. He is 97% on 5% FiO2. General description is a middle-aged male intubated on the vent. Respiratory system: Unlabored breathing, increased intensity of breath sounds in the bases. No wheeze. Heart S1, S2. Regular rate. ABDOMEN: Soft, no tenderness. Extremities: No edema of the feet. LABS: Hemoglobin 7.4, white count 0.3, BUN 156, creatinine 3.46. Stool for C difficile came back negative. DIAGNOSTIC IMPRESSION/PLAN: 1. Patient with catheter associated urinary tract infection. Urine has showing Armida albicans covered with Eraxis to continue. 2. Patient with significant purulent drainage on his trach site with concern for possible cellulitis plus-minus pneumonia, covered with cefepime. Cultures currently pending. 3. Diarrhea. Stool for C difficile is negative. Will add Questran for symptomatic relief. MMODL / IJN: [id number] /
[2020-08-02 04:51] LABS: Albumin 2.5 g/dL (3.5-5.0); Calcium 8.9 mg/dL (8.4-10.2); Total Bilirubin 3.3 mg/dL (0.2-1.3); Total Protein 4.9 g/dL (6.3-8.2)
[2020-08-02] MEDS: INSULIN ASPART (NovoLOG) 100 UNIT/ML VIAL SQ SCH ×3 (05:14→18:45)
[2020-08-02 05:31] LABS: ABG Base Excess -1.8 mmol/L; ABG HCO3 22 mmol/L (21-25); ABG Oxygen Saturation 97.5 % (94-97); ABG PCO2 33 mmHg (35-45); ABG PH 7.44 (7.35-7.45); ABG PO2 90 mmHg (83-108); ABG TCO2 23 mmol/L (19-24); Allen Test Performed? Yes
--- NOTE | 2020-08-02 07:14 | XR ---
EXAMINATION TYPE: XR chest 1V DATE OF EXAM: 08/02/2020 COMPARISON: 08/01/2020 HISTORY: Cough TECHNIQUE: Single frontal view of the chest is obtained. FINDINGS: Bilateral patchy infiltrate seen. Right-sided dialysis catheter. Tracheostomy tube noted. Left-sided PICC line. Pleural-based thickening noted on the right. IMPRESSION: Patchy bilateral infiltrate.
[2020-08-02] MEDS: ALBUTEROL HFA INHALER INHALATION SCH ×3 (07:32→20:52)
--- NOTE | 2020-08-02 08:24 | P.PN ---
Subjective Progress Note Date: 08/02/20 On 08/02/2020 on seeing the patient for a follow-up. The patient is still on mechanical ventilatorin an AC mode with tidal volume of 450 and a fio2 f 30% with a PEEP of 5 and the rate of 24. Noted the patient is post tracheostomy tube insertion for prolonged respiratory failure and the patient also effective in place. Patient is currently off sedation. The patient remains encephalopathic for a while although it was noted that his level of consciousness was gradually improving. He was able to open up his eyes. He will return to voices but unable to squeeze or use his fingers are regular. On today's evaluation, the patient grimaces to deep painful stimulation. He opens his eyes spontaneously. Does not follow commands. Profoundly weak, cannot move his arms or legs. He has dropped feet bilaterally. Neuro status being monitored very closely. No signs of any respiratory distress. The patient remains on a mechanical ventilator. The blood gases was noted. A chest x-ray was noted. The patient has a tracheostomy tube in place. The patient has a Bivona tracheostomy tube #7. The patient also has a right IJ's catheter for hemodialysis. Limited infiltration lung bases bilaterally. He is a case of COVID-19 pneumonia and the patient has limited on Decadron 4 mg IV every 24 hours. The patient is on no pressors. The patient remains on hemodialysis per nephrology. Antibiotic coverage is with a combination of Eraxis and cefepime as the patient was found to have a positive Armida albicans in the catheter tips, sputum and urine cultures. During the course of the illness, the patient also developed pancytopenia secondary to chronic illness and bone marrow suppression. The patient required several placed on Zarxio. The patient is also undergoing hemodialysis per nephrology. His last hemodialysis was done more than a week ago. His producing adequate amount of urine output. His urine output is in order of 2.5 L on a daily basis. His creatinine today is at 3.4 with a BUN of 160. Rest of the electrodes are all within normal limits. Blood gas showed a pH of 7.44 with a pCO2 of 33 and pO2 of 90. Chest x-ray from today is showing a stable right lower lobe pulmonary infiltration otherwise all of the catheters and tubes are in good location and the patient has a dialysis catheter in his right IJ and a Bivona tracheostomy tube which is also in place. Objective - Vital Signs Vital signs: Vital Signs Temp 99.0 F 08/02/20 04:00 Pulse 112 H 08/02/20 07:00 Resp 33 H 08/02/20 07:00 BP 151/89 08/02/20 06:00 Pulse Ox 95 08/02/20 07:00 Intake & Output 08/01/20 08/02/20 08/02/20 18:59 06:59 18:59 Intake Total 889 1381 121 Output Total 1385 1135 100 Balance -496 246 21 Weight 103.2 kg Intake: IV 570 160 10 0.9 Normal Saline 70 110 10 Cefepime 1 gm In Sodium 50 50 Chloride 0.9% 50 ml @ 12. 5 mls/hr IVPB Q12HR [facility] Rx#:[id number] Dextrose 5% in Water 1, 450 000 ml @ 75 mls/hr IV . [id number] ONE Rx#:[id number] Intake, IV Titration 100 Amount Anidulafungin 100 mg In 100 Sodium Chloride 0.9% 100 ml @ 84 mls/hr IVPB DAILY [facility] Rx#:[id number] Tube Feeding 144 396 36 Other 75 825 75 Output: Urine 1385 1135 100 Other: Voiding Method Indwelling Catheter Indwelling Catheter # Bowel Movements 2 ABP, PAP, CO, CI - Last Documented Arterial Blood Pressure 118/64 - Exam GENERAL EXAM: Encephalopathic morbidly obese 51-year-old white male, trached to the ventilator, on assist-control mode of ventilation with a 30% PEEP of 5, patient opens eyes to command, and turns head to voice but unable to move extremities related to severe generalized weakness comfortable in no apparent distress. HEAD: Normocephalic/atraumatic. EYES: Normal reaction of pupils, equal size. Conjunctiva pink, sclera white. NOSE: Clear with pink turbinates. THROAT: No erythema or exudates. NECK: No masses, no JVD, no thyroid enlargement, no adenopathy. Midline tracheostomy connected to the ventilator CHEST: No chest wall deformity. Symmetrical expansion. Right subclavian permacath in place and patient is receiving hemodialysis LUNGS: Equal air entry with no crackles, wheeze, rhonchi or dullness. CVS: Regular rate and rhythm, normal S1 and S2, no gallops, no murmurs, no rubs ABDOMEN: Soft, nontender. No hepatosplenomegaly, normal bowel sounds, no guarding or rigidity. PEG tube in place EXTREMITIES: No clubbing, generalized edema no cyanosis, 2+ pulses and upper and lower extremities. Patient has black fingertips on his left hand MUSCULOSKELETAL: Muscle strength and tone normal. Right groin temporary hemodialysis catheter in place SPINE: No scoliosis or deformity SKIN: No rashes CENTRAL NERVOUS SYSTEM: Encephalopathic, but opens eyes to voice, turns head to voice, trached to the ventilator No focal deficits, tone is low in all 4 extremities.. The patient has dropped feet bilaterally - Labs CBC & Chem 7: 08/02/20 04:07 08/02/20 04:07 Labs: Abnormal Lab Results - Last 24 Hours (Table) 08/01/20 08/01/20 08/01/20 Range/Units 11:36 17:31 23:24 WBC (3.8-10.6) k/uL RBC (4.30-5.90) m/uL Hgb (13.0-17.5) gm/dL Hct (39.0-53.0) % RDW (11.5-15.5) % Plt Count (150-450) k/uL ABG pCO2 (35-45) mmHg ABG O2 Saturation (94-97) % Chloride (98-107) mmol/L BUN (9-20) mg/dL Creatinine (0.66-1.25) mg/dL Glucose (74-99) mg/dL POC Glucose (mg/dL) 131 H 134 H 127 H (75-99) mg/dL Total Bilirubin (0.2-1.3) mg/dL AST (17-59) U/L ALT (4-49) U/L Alkaline Phosphatase (38-126) U/L Total Protein (6.3-8.2) g/dL Albumin (3.5-5.0) g/dL 08/02/20 08/02/20 08/02/20 Range/Units 04:07 04:07 05:26 WBC 0.3 L* (3.8-10.6) k/uL RBC 2.47 L (4.30-5.90) m/uL Hgb 7.4 L (13.0-17.5) gm/dL Hct 22.8 L (39.0-53.0) % RDW 16.2 H (11.5-15.5) % Plt Count 38 L (150-450) k/uL ABG pCO2 33 L (35-45) mmHg ABG O2 Saturation 97.5 H (94-97) % Chloride 110 H (98-107) mmol/L BUN 160 H* (9-20) mg/dL Creatinine 3.40 H (0.66-1.25) mg/dL Glucose 120 H (74-99) mg/dL POC Glucose (mg/dL) (75-99) mg/dL Total Bilirubin 3.3 H (0.2-1.3) mg/dL AST 124 H (17-59) U/L ALT 309 H (4-49) U/L Alkaline Phosphatase 251 H (38-126) U/L Total Protein 4.9 L (6.3-8.2) g/dL Albumin 2.5 L (3.5-5.0) g/dL Microbiology - Last 24 Hours (Table) 07/26/20 22:06 Blood Culture - Final Blood No Growth after 144 hours 07/28/20 11:45 Blood Culture - Preliminary Blood No Growth after 96 hours 07/30/20 10:12 Gram Stain - Final Neck Wound Culture - Final 07/29/20 19:47 Gram Stain - Final Sputum Sputum Culture - Final Assessment and Plan Plan: #1. Acute hypoxic respiratory failure secondary to COVID-19 pneumonia. Patient received toci and convalescent plasma., Patient is status post tracheostomy and PEG tube placement on 07/21/2020. The chest x-ray showing some limited infiltration of the right lung base post COVID-19 related pneumonia. Tracheostomy tube is in a good location. #2. Encephalopathic, multifactorial, including metabolic factors and drug related factors. The patient is noted to be more arousable. Nevertheless, not following any commands. #3. Acute ischemic stroke, in right frontal region with mild petechial hemorrhage in the cortical ribbon #4. Acute kidney injury and the patient is receiving hemodialysis intermittently. Last hemodialysis was more than a week before the patient is producing adequate amount of urine output #5. Altered mental status, related to toxic metabolic encephalopathy, severe, related to multiple organ dysfunction #6. Possible petechial hemorrhage within the right frontal lobe, seen on the CT of the brain, neurology is following #7. Severe metabolic acidosis, improved and resolved after dialysis. #8. Hyperkalemia secondary to above, improved with hemodialysis #9. Benign essential hypertension. #10. Superficial vein thromboses and left cephalic vein and left basilic vein #11. Heparin-induced thrombocytopenia, patient was treated Argatroban and later on was switched to Eliquis #12. History of obstructive sleep apnea syndrome #13. Morbid obesity #14. Increased d-dimer related to COVID-19, patient was started on Eliquis which will be restarted after his surgical procedures #15. Plugged PEG tube, status post PEG tube revision on 07/26/2020, hysterectomy is currently functional #16. Pancytopenia, likely related to sepsis, hematology is following, on Zarxio #17. Critical illness polyneuropathy, severe generalized weakness Plan: Monitor mental status May need to repeat a CAT scan of the brain to rule out any ongoing bleeding specially if the patient shows any new onset neurologic deficits or failure to recover from his encephalopathy Continue vent support Patient has done trials of pressure support ventilation yesterday. Currently is back on assist control. May try to do the same today Stop anticoagulation and discontinue the Eliquis Monitor hematologic profile Continue Zarxio This continued IV Decadron Discontinue cefepime Complete a total of seven-day course Eraxis and then stop Continue Eraxis Continue following blood counts, hematology recs Continue following cultures Physical therapy consultation for eval and treat Social work consultation for LTAC placement Critical care evaluation, >30 min Time with Patient: Greater than 30
[2020-08-02] MEDS: PANTOPRAZOLE 40 MG/10 ML VIAL IVP SCH ×2 (08:27→21:05)
[2020-08-02] MEDS: ASPIRIN 300 MG SUPP RECTAL SCH (08:27)
[2020-08-02] MEDS: CEFEPIME 1 GM in SODIUM CHLORIDE 0.9% 50 ML IVPB SCH (08:27)
[2020-08-02] MEDS: ANIDULAFUNGIN 100 MG in SODIUM CHLORIDE 0.9% 100 ML IVPB SCH (08:27)
[2020-08-02] MEDS: CHOLESTYRAMINE (WITH SUGAR) 4 GM PACKET PO SCH ×2 (09:40→17:33)
[2020-08-02 12:13] LABS: Glucose,Whole Blood 127 mg/dL (75-99)
--- NOTE | 2020-08-02 13:31 | PN ---
PROGRESS NOTE The patient is seen for followup for acute kidney injury. The patient had been on dialysis earlier. His last treatment was on 07/22; however, it appears that recently his BUN has been slowly increasing and his BUN was up to 160 today. Serum creatinine staying mostly around 3.4 mg/dL. The patient's urine output is at about 100 to 60 mL an hour. The patient is not on any IV fluids. He was maintained on Decadron, which is now discontinued. PHYSICAL EXAMINATION: On examination today, patient is awake, but is not following commands. He is status post trach and PEG. There is edema 1+ bilateral lower extremities. Discoloration of the fingers noted in the left hand, which appears to be stable. ENGRAVER PANTOGRAPH EXAM: Patient is awake, but does not follow commands. He does track. LABS: Labs show sodium of 144, potassium 4.0, chloride 110, BUN 160, serum creatinine 3.4, albumin 2.5, hemoglobin 7.4 g/dL. ASSESSMENT: 1. Acute kidney injury, acute tubular necrosis, currently nonoliguric, status post dialysis earlier during his hospitalization with last dialysis on 07/22. The patient still has right IJ PermCath. His BUN has been progressively increasing, mostly associated with use of steroids, possible underlying gastrointestinal bleed and sepsis. If his BUN is further elevated tomorrow, I will proceed with a treatment of hemodialysis tomorrow. 2. COVID pneumonia. 3. Acute hypoxic respiratory failure currently status post trach and PEG. 4. Volume overload currently significantly improved from about 2 weeks ago. 5. Encephalopathy, multifactorial. We will assess if there is change post dialysis tomorrow with significant increase in his BUN over the last 2-3 days. 6. Acute ischemic stroke in the right frontal region. 7. Heparin-induced thrombocytopenia, status post treatment with argatroban and switched to Eliquis now. PLAN: Hemodialysis in a.m., mostly for significantly elevated BUN. Serum creatinine is staying stable at about 3.4. Urine output is well maintained. MMODL / IJN: [id number] /
--- NOTE | 2020-08-02 14:39 | P.PN ---
Subjective Progress Note Date: 08/02/20 CHIEF COMPLAINT: Shortness of breath HISTORY OF PRESENT ILLNESS: Patient currently in the ICU and on mechanical ventilation. He has been on the vent since 07/05/2020. He has acute hypoxic respiratory failure due to COVID-19 pneumonia. Patient is status post tracheostomy and PEG tube placement on 07/21/20. However, patient's PEG tube did get plugged. He is now status post PEG tube replacement on 07/26/2020. He is tolerating tube feedings. Patient has infection at tracheostomy site and is followed by ID. Afebrile. WBC 0.3. Patient seen and examined with Dr. Mcdowell PHYSICAL EXAM: VITAL SIGNS: Reviewed. GENERAL: Well-developed in no acute distress. HEENT: Head is atraumatic, normocephalic. Tracheostomy site with purulent drainage ABDOMEN: Soft. Nondistended. Nontender. PEG tube site clean dry and intact NEUROLOGIC: Intubated ASSESSMENT: 1. Acute hypoxic respiratory failure secondary to acute COVID-19 pneumonia with prolonged mechanical ventilation. Status post tracheostomy placement 2. Severe Protein calorie malnutrition status post PEG tube placement 3. Infection at tracheostomy site PLAN: -Continue PEG tube feedings -Continue ICU management -Continue supportive care -Antibiotics per ID Physician [employer] note has been reviewed by physician. Signing provider agrees with the documented findings, assessment, and plan of care. Objective - Vital Signs Vital signs: Vital Signs Temp 99.8 F H 08/02/20 08:00 Pulse 107 H 08/02/20 09:00 Resp 14 08/02/20 09:00 BP 137/92 08/02/20 09:00 Pulse Ox 95 08/02/20 09:00 Intake & Output 08/01/20 08/02/20 08/02/20 18:59 06:59 18:59 Intake Total 889 1381 866 Output Total 1385 1135 810 Balance -496 246 56 Weight 103.2 kg 103.2 kg Intake: IV 570 160 100 0.9 Normal Saline 70 110 50 Cefepime 1 gm In Sodium 50 50 50 Chloride 0.9% 50 ml @ 12. 5 mls/hr IVPB Q12HR ON LICENSE OF [facility] Rx#:[id number] Dextrose 5% in Water 1, 450 000 ml @ 75 mls/hr IV . [id number] ONE Rx#:[id number] Intake, IV Titration 100 100 Amount Anidulafungin 100 mg In 100 100 Sodium Chloride 0.9% 100 ml @ 84 mls/hr IVPB DAILY ON LICENSE OF [facility] Rx#:[id number] Tube Feeding 144 396 216 Other 75 825 450 Output: Urine 1385 1135 810 Other: Voiding Method Indwelling Catheter Indwelling Catheter Indwelling Catheter # Bowel Movements 2 ABP, PAP, CO, CI - Last Documented Arterial Blood Pressure 118/64 - Labs CBC & Chem 7: 08/02/20 04:07 08/02/20 04:07 Labs: Abnormal Lab Results - Last 24 Hours (Table) 08/01/20 08/01/20 08/02/20 Range/Units 17:31 23:24 04:07 WBC 0.3 L* (3.8-10.6) k/uL RBC 2.47 L (4.30-5.90) m/uL Hgb 7.4 L (13.0-17.5) gm/dL Hct 22.8 L (39.0-53.0) % RDW 16.2 H (11.5-15.5) % Plt Count 38 L (150-450) k/uL ABG pCO2 (35-45) mmHg ABG O2 Saturation (94-97) % Chloride (98-107) mmol/L BUN (9-20) mg/dL Creatinine (0.66-1.25) mg/dL Glucose (74-99) mg/dL POC Glucose (mg/dL) 134 H 127 H (75-99) mg/dL Total Bilirubin (0.2-1.3) mg/dL AST (17-59) U/L ALT (4-49) U/L Alkaline Phosphatase (38-126) U/L Total Protein (6.3-8.2) g/dL Albumin (3.5-5.0) g/dL 08/02/20 08/02/20 08/02/20 Range/Units 04:07 05:26 11:43 WBC (3.8-10.6) k/uL RBC (4.30-5.90) m/uL Hgb (13.0-17.5) gm/dL Hct (39.0-53.0) % RDW (11.5-15.5) % Plt Count (150-450) k/uL ABG pCO2 33 L (35-45) mmHg ABG O2 Saturation 97.5 H (94-97) % Chloride 110 H (98-107) mmol/L BUN 160 H* (9-20) mg/dL Creatinine 3.40 H (0.66-1.25) mg/dL Glucose 120 H (74-99) mg/dL POC Glucose (mg/dL) 127 H (75-99) mg/dL Total Bilirubin 3.3 H (0.2-1.3) mg/dL AST 124 H (17-59) U/L ALT 309 H (4-49) U/L Alkaline Phosphatase 251 H (38-126) U/L Total Protein 4.9 L (6.3-8.2) g/dL Albumin 2.5 L (3.5-5.0) g/dL Microbiology - Last 24 Hours (Table) 07/28/20 11:45 Blood Culture - Preliminary Blood No Growth after 120 hours 07/30/20 10:12 Anaerobic Culture - Final Neck Anaerobic Gm Negative Bacilli Anaerobic Gm Negative Bacilli#2 Anaerobic Gm Negative Bacilli#3 07/26/20 22:06 Blood Culture - Final Blood No Growth after 144 hours 07/30/20 10:12 Gram Stain - Final Neck Wound Culture - Final
--- NOTE | 2020-08-02 16:29 | P.PN ---
Subjective Progress Note Date: 08/02/20 Principal diagnosis: Covid pneumonia. Pancytopenia Physical examination of the patient deferred due to covid pneumonia, pt was visualized resting comfortably. Case reviewed with RN. Objective - Vital Signs Vital signs: Vital Signs Temp 98.8 F 08/02/20 12:00 Pulse 118 H 08/02/20 14:00 Resp 34 H 08/02/20 14:00 BP 163/96 08/02/20 14:00 Pulse Ox 94 L 08/02/20 14:00 Intake & Output 08/01/20 08/02/20 08/02/20 18:59 06:59 18:59 Intake Total 889 1381 866 Output Total 1385 1135 810 Balance -496 246 56 Weight 103.2 kg 103.2 kg Intake: IV 570 160 100 0.9 Normal Saline 70 110 50 Cefepime 1 gm In Sodium 50 50 50 Chloride 0.9% 50 ml @ 12. 5 mls/hr IVPB Q12HR [facility] Rx#:[id number] Dextrose 5% in Water 1, 450 000 ml @ 75 mls/hr IV . [id number] ONE Rx#:[id number] Intake, IV Titration 100 100 Amount Anidulafungin 100 mg In 100 100 Sodium Chloride 0.9% 100 ml @ 84 mls/hr IVPB DAILY [facility] Rx#:[id number] Tube Feeding 144 396 216 Other 75 825 450 Output: Urine 1385 1135 810 Other: Voiding Method Indwelling Catheter Indwelling Catheter Indwelling Catheter # Bowel Movements 2 ABP, PAP, CO, CI - Last Documented Arterial Blood Pressure 118/64 - Labs CBC & Chem 7: 08/02/20 04:07 08/02/20 04:07 Labs: Abnormal Lab Results - Last 24 Hours (Table) 08/01/20 08/01/20 08/02/20 Range/Units 17:31 23:24 04:07 WBC 0.3 L* (3.8-10.6) k/uL RBC 2.47 L (4.30-5.90) m/uL Hgb 7.4 L (13.0-17.5) gm/dL Hct 22.8 L (39.0-53.0) % RDW 16.2 H (11.5-15.5) % Plt Count 38 L (150-450) k/uL ABG pCO2 (35-45) mmHg ABG O2 Saturation (94-97) % Chloride (98-107) mmol/L BUN (9-20) mg/dL Creatinine (0.66-1.25) mg/dL Glucose (74-99) mg/dL POC Glucose (mg/dL) 134 H 127 H (75-99) mg/dL Total Bilirubin (0.2-1.3) mg/dL AST (17-59) U/L ALT (4-49) U/L Alkaline Phosphatase (38-126) U/L Total Protein (6.3-8.2) g/dL Albumin (3.5-5.0) g/dL 08/02/20 08/02/20 08/02/20 Range/Units 04:07 05: 11:43 WBC (3.8-10.6) k/uL RBC (4.30-5.90) m/uL Hgb (13.0-17.5) gm/dL Hct (39.0-53.0) % RDW (11.5-15.5) % Plt Count (150-450) k/uL ABG pCO2 33 L (35-45) mmHg ABG O2 Saturation 97.5 H (94-97) % Chloride 110 H (98-107) mmol/L BUN 160 H* (9-20) mg/dL Creatinine 3.40 H (0.66-1.25) mg/dL Glucose 120 H (74-99) mg/dL POC Glucose (mg/dL) 127 H (75-99) mg/dL Total Bilirubin 3.3 H (0.2-1.3) mg/dL AST 124 H (17-59) U/L ALT 309 H (4-49) U/L Alkaline Phosphatase 251 H (38-126) U/L Total Protein 4.9 L (6.3-8.2) g/dL Albumin 2.5 L (3.5-5.0) g/dL Microbiology - Last 24 Hours (Table) 07/28/20 11:45 Blood Culture - Preliminary Blood No Growth after 120 hours 07/30/20 10:12 Anaerobic Culture - Final Neck Anaerobic Gm Negative Bacilli Anaerobic Gm Negative Bacilli#2 Anaerobic Gm Negative Bacilli#3 07/26/20 22:06 Blood Culture - Final Blood No Growth after 144 hours Assessment and Plan (1) Pancytopenia Narrative/Plan: Today patient remains on G-CSF. WBC is 0.3. Hemoglobin 7.4. Patient can be transfused if he is felt to be too symptomatic otherwise, transfuse for hemoglobin less than 7. Patient's platelets today are 38,000. Patient has a superficial thrombosis, also recent hemorrhagic stroke. He is not a candidate for anticoagulation at this time. Hit antibody was negative. Transfuse for platelets less than 10,000 or if patient is symptomatic. Dr. Vale and Infectious Disease reviewed the case, adjustments were made to a ntibiotic regimen due to concerns for antibiotics affecting the platelets. Patient is receiving one last dose of antifungal per Critical Care to complete a full 7 day regimen. CBC daily Pancytopenia workup is not going to be helpful in this acute case. Pending stability of the patient. Continue to monitor labs daily. Supportive care and treatment of underlying causes continues. Current Visit: Yes Status: Acute Priority: High Code(s): D61.818 - OTHER PANCYTOPENIA SNOMED Code(s): 391671111
[2020-08-02] MEDS: FILGRASTIM-SNDZ 480 MCG/0.8 ML SYRINGE SQ SCH (17:33)
[2020-08-02 17:44] LABS: Glucose,Whole Blood 126 mg/dL (75-99)
[2020-08-02] MEDS: SODIUM CHLORIDE 0.9% 1,000 ML IV SCH (18:47)
[2020-08-02] MEDS: MAG HYDROX/AL HYDROX/SIMETH 30 ML, diphenhydrAMINE ELIXIR 75 MG, NYSTATIN 100,000 UNIT/... PO SCH ×6 (21:06)
--- NOTE | 2020-08-02 23:10 | P.PN ---
Subjective This is a pleasant 53 years old male with past medical history of hypertension, osteoarthritis, sleep apnea. Presents with respiratory distress secondary to covid pneumonia and secondary bacterial infection is suspected as well with positive sputum culture for streptococcus, group C. Currently remains on ceftriaxone per ID team. Patient has prolonged course in the ICU. He was on mechanical ventilation and need a small dose of Levophed at the beginning , Also patient has elevated troponin and he was started on heparin drip however he developed coffee-ground emesis via anicteric tube, heparin drip was stopped and hemoglobin is stable and his hit antibodies came back positive, Tour Director found to his elevated troponin is secondary to his Covid infection and hypotension, he was started on argatroban drip for suspected left hand ischemia . Currently he kept on aspirin one 50 mg rectally daily, with no any anticoagulation, Eliquis is held for PEG tube placement His renal function worsened at certain point needing hemodialysis due to his Covid infectionl, nonoliguric. Currently he is off dialysis Receiving nutrition through TPN, and scheduled for PEG tube placement today Plan for him was to go to LTAC wants PEG tube was placed and functional Patient is currently on eraxis, he is also on dexamethasone , Lasix IV 80 mg twice daily, Protonix 40 mg IV twice macey I called his medical insurance provider [employer] at [phone] extension [phone] at 2 PM, however the midline was 2 PM today , of physicians were busy per staff and they said they will call me tomorrow 8:30-8:40 5 AM, I provided my cell phone to [employer] 07/27/2020 Patient remains in the ICU, his vent dependent. Status post tracheostomy. He got his PEG tube yesterday and start tube feeding today.. Associated with leukopenia He tolerated that well so far per ICU nurse. His postoperative go to LTAC tomorrow if he was going to be stable however he is a spiking temperature last night and today 101.9 Labs today showing leukopenia with ellipses 0.6, hemoglobin stable 8.2 as well as platelets 148 k. . Glucose control, creatinine 3.6 which is a stable over the last 10 days. inflammatory markers still elevated but stable with ferritin is 35. Total jennifer irubin is 3.4, liver enzymes mildly elevated with AST 79 and AFP 115, C-reactive protein is elevated at 14.9 Chest x-ray showing bilateral multifocal opacity most prominent in the apices and bases on background low lung volume consistent with COVID-19 infection. No interval change from one day earlier Currently patient kept on Eraxis, ceftriaxone. Also she is on dexamethasone 4 mg IV daily, Lasix 80 mg IV daily. Today I did appear to be with Dr. Johnson from [facility], unfortunately she rejected the case stating there is no documentation of weaning. I tried to explain to her that usually we do a sedation holiday and weaning trial prior to any tracheostomy under the care of critical care team however she was asking where in the chart documented, it was difficult to locate documentation about weaning trial in this patient with more than 3 weeks hospital stays and in a few minutes over the phone, eventually she ejected the case as above. Discussed with clinical social worker 07/28/2020 Patient remains in the ICU on mechanical ventilation with pulmonary/critical care team help with vent management Patient hemodynamically stable Labs showing leukopenia 0.2K, hemoglobin is 6.5 and platelets 108, after 1 unit of blood transfusion hemoglobin went up to 7.3 and platelet with a 3. Creatinine is 3.9, compared to 3.[address] of the brain showing evolving subacute hemorrhagic infarct of the right frontal lobe shows no significant interval change 1 unit of blood is ordered today. Hematology team consulted for severe leukopenia and throughout its due to his severe critical illness and bone marrow suppression and continue the current management and transfuse as needed further recommendations Currently patient kept on Eraxis, Also she is on dexamethasone 4 mg IV daily, Lasix 80 mg IV daily. Ceftriaxone was discontinued today With the help of the clinical social worker, today signed a letter to his medical insurance provider to approve for his LTAC transfer, the patient was sent today, explaining that LTAC is the main way to treat him , Also as per my discussion with clinical social worker Ryan, critical care team also will try to contact Lynn 07/29/2020 Patient remains in the ICU on mechanical ventilation with pulmonary/critical care team on the case Patient is currently on erxis for fungal UTI. filgastrim was added for severe leukopenia of 0.2 and we'll monitor response Despite history of subacute hemorrhagic infarct, patient is a started on Lovenox for DVT prophylaxis and aspirin 300 mg by pulmonary and cardiology teams, we'll keep monitoring her closely. 07/30/2020 07/30/2020 Patient remains in the ICU on mechanical ventilation with pulmonary/critical care team on the case Patient still has low-grade fever of 99.9 today. He is Tachypneic and tachycardic but blood pressure is stable. Still has significant leukopenia with WBC of 0.2 number hemoglobin 7.2 she is stable. Platelet count 113K. Neurology service signed off today. He remains on Eraxis but because of his persistent fever., Cefepime added today. Infectious disease team of the case 07/31/2020 Patient remains in the ICU on mechanical ventilation with pulmonary/critical care team on the case Patient still has low-grade fever of 100 today. He is Tachypneic and tachycardic but blood pressure is stable. Still has significant leukopenia with WBC of 0.2 number hemoglobin 7.0 she is stable. Platelet count 89K. Patient is currently on cefepime and Eraxis, per ID team recommendation Sodium 148, glucose is stable. Liver enzymes were mildly elevated. Chest x-ray: No change D5W at 75 mL/h. For hypernatremia. 08/01/20 Patient remains in the ICU on mechanical ventilation with pulmonary/critical care team on the case Patient still has low-grade fever of 100 today. He is Tachypneic and tachycardic but blood pressure is stable. Still has significant leukopenia with WBC of 0.23 number hemoglobin 7.4 she is stable. Platelet count 58K. Patient is currently on cefepime and Eraxis, per ID team recommendation Sodium 145 (back to normal), glucose is stable. Liver enzymes were mildly elevated. Chest x-ray: No change. Diffuse interstitial infiltrate correlate for CHF versus interstitial pneumonia. Findings stable D5W at 75 mL/ stopped 08/02/2020 Patient remains in the ICU on mechanical ventilation with pulmonary/critical care team on the case. He had complete pneumonia and prolonged course in the hospital he ended up on mechanical ventilation needing tracheostomy and PEG tube placement. The plan for him was to go to LTAC however the [employer] medical insurance rejected his transfer, clinical social worker of the case and therefore, the peel. In the meantime patient started developing fever. Patient still has fever of 101 today. He is Tachypneic and tachycardic advanced slightly hypertensive Still has significant leukopenia with WBC of 0.23 number hemoglobin 7.4 he is stable. Platelet count 58K. Patient is currently on cefepime and Eraxis, per ID team recommendation. Cefepime was discontinued today per Pulmonary team. Also he was on Eliquis, which is discontinued today per the pulmonary team recommendation.. Sodium 144 (back to normal), glucose is stable. Liver enzymes were mildly elevated. Objective - Vital Signs Vital signs: Vital Signs Temp 99.8 F H 08/02/20 08:00 Pulse 107 H 08/02/20 09:00 Resp 14 08/02/20 09:00 BP 137/92 08/02/20 09:00 Pulse Ox 95 08/02/20 09:00 Intake & Output 08/01/20 08/02/20 08/02/20 18:59 06:59 18:59 Intake Total 889 1381 866 Output Total 1385 1135 810 Balance -496 246 56 Weight 103.2 kg 103.2 kg Intake: IV 570 160 100 0.9 Normal Saline 70 110 50 Cefepime 1 gm In Sodium 50 50 50 Chloride 0.9% 50 ml @ 12. 5 mls/hr IVPB Q12HR [facility] Rx#:[id number] Dextrose 5% in Water 1, 450 000 ml @ 75 mls/hr IV . [id number] Rx#:[id number] Intake, IV Titration 100 100 Amount Anidulafungin 100 mg In 100 100 Sodium Chloride 0.9% 100 ml @ 84 mls/hr IVPB DAILY [facility] Rx#:[id number] Tube Feeding 144 396 216 Other 75 825 450 Output: Urine 1385 1135 810 Other: Voiding Method Indwelling Catheter Indwelling Catheter Indwelling Catheter # Bowel Movements 2 ABP, PAP, CO, CI - Last Documented Arterial Blood Pressure 118/64 - Exam -GENERAL: The patient is intubated and sedated, well nourished. HEENT: Pupils are round and equally reacting to light. EOMI. No scleral icterus. No conjunctival pallor. Normocephalic, atraumatic. No pharyngeal erythema. No thyromegaly. CARDIOVASCULAR: S1 and S2 present. No murmurs, rubs, or gallops. PULMONARY: Chest is clear to auscultation, no wheezing or crackles. ABDOMEN: Soft, nontender, nondistended, normoactive bowel sounds. No palpable organomegaly. MUSCULOSKELETAL: No joint swelling or deformity. EXTREMITIES: No cyanosis, clubbing, or pedal edema. NEUROLOGICAL: Gross neurological examination did not reveal any focal deficits. SKIN: No rashes. no petechiae. - Labs CBC & Chem 7: 08/02/20 04:07 08/02/20 04:07 Labs: Abnormal Lab Results - Last 24 Hours (Table) 08/01/20 08/01/20 08/02/20 Range/Units 17:31 23:24 04:07 WBC 0.3 L* (3.8-10.6) k/uL RBC 2.47 L (4.30-5.90) m/uL Hgb 7.4 L (13.0-17.5) gm/dL Hct 22.8 L (39.0-53.0) % RDW 16.2 H (11.5-15.5) % Plt Count 38 L (150-450) k/uL ABG pCO2 (35-45) mmHg ABG O2 Saturation (94-97) % Chloride (98-107) mmol/L BUN (9-20) mg/dL Creatinine (0.66-1.25) mg/dL Glucose (74-99) mg/dL POC Glucose (mg/dL) 134 H 127 H (75-99) mg/dL Total Bilirubin (0.2-1.3) mg/dL AST (17-59) U/L ALT (4-49) U/L Alkaline Phosphatase (38-126) U/L Total Protein (6.3-8.2) g/dL Albumin (3.5-5.0) g/dL 08/02/20 08/02/20 08/02/20 Range/Units 04:07 05:26 11:43 WBC (3.8-10.6) k/uL RBC (4.30-5.90) m/uL Hgb (13.0-17.5) gm/dL Hct (39.0-53.0) % RDW (11.5-15.5) % Plt Count (150-450) k/uL ABG pCO2 33 L (35-45) mmHg ABG O2 Saturation 97.5 H (94-97) % Chloride 110 H (98-107) mmol/L BUN 160 H* (9-20) mg/dL Creatinine 3.40 H (0.66-1.25) mg/dL Glucose 120 H (74-99) mg/dL POC Glucose (mg/dL) 127 H (75-99) mg/dL Total Bilirubin 3.3 H (0.2-1.3) mg/dL AST 124 H (17-59) U/L ALT 309 H (4-49) U/L Alkaline Phosphatase 251 H (38-126) U/L Total Protein 4.9 L (6.3-8.2) g/dL Albumin 2.5 L (3.5-5.0) g/dL Microbiology - Last 24 Hours (Table) 07/28/20 11:45 Blood Culture - Preliminary Blood No Growth after 120 hours 07/30/20 10:12 Anaerobic Culture - Final Neck Anaerobic Gm Negative Bacilli Anaerobic Gm Negative Bacilli#2 Anaerobic Gm Negative Bacilli#3 07/26/20 22:06 Blood Culture - Final Blood No Growth after 144 hours 07/30/20 10:12 Gram Stain - Final Neck Wound Culture - Final Assessment and Plan Assessment: Acute Covid pneumonia New fever and leukopenia, secondary to fungal UTI. ID team on the case Acute hypoxic respiratory failure needing mechanical ventilation Acute kidney injury needed hemodialysis , currently he is off HD Acute hemorrhagic stroke , right frontal region with mild petechial hemorrhage in the cortical ribbon. AMS secondary to metabolic encephalogpathy and stroke, s/p PEG placement and tracheostomy as he could not be weaned off m.ventilation Suspected ischemia of the left hand on anticoagulation , resolved now Coffee ground vomiting with suspected acute GI bleed Thrombocytopenia secondary to sepsis and heparin induced thrombocytopenia Severe leukopenia secondary to Covid infection Elevated troponin, secondary to renal function impairment, viral infection and hypotension Plan: This is a pleasant 59 years old male who presents with Covid pneumonia, on mechanical ventilation and AMS. Continue with mechanical ventilation for pulmonary/critical care team will follow the patient closely.Continue with mul tiple vitamin zinc and vitamin D c/w eraxis for UTI and filgastrim for leukopenia GI and cardiology, nephrology , hematology teams on the case aspirin as per neurology team Labs and medication were reviewed.. Continue same treatment. Continue with symptomatic treatment. Resume home medication. Monitor lytes and vitals. DVT and GI prophylaxis. Further recommendations as per clinical course of the patient DVT prophylaxis: eliquis on hold . Continue with DVT prophylaxis as per critical care team, lovenox is added GI Prophylaxis: Ppi, Protonix twice a day Prognosis is guarded The peel was sent to his clinical social worker provider Lynn
[2020-08-03 00:22] LABS: Glucose,Whole Blood 125 mg/dL (75-99)
[2020-08-03] MEDS: INSULIN ASPART (NovoLOG) 100 UNIT/ML VIAL SQ SCH ×4 (00:39→17:44)
[2020-08-03] MEDS: HYDROmorphone 0.5 MG/0.5 ML SYRINGE IVP PRN ×2 (02:10→06:22)
[2020-08-03 04:30] LABS: Anisocytosis Slight; HCT 23.1 % (39.0-53.0); HGB 7.6 gm/dL (13.0-17.5); Hypochromasia Slight; MCH 30.2 pg (25.0-35.0); MCV 91.6 fL (80.0-100.0); RBC 2.53 m/uL (4.30-5.90); RDW 16.3 % (11.5-15.5); WBC 1.6 k/uL (3.8-10.6)
[2020-08-03 04:47] LABS: Albumin 2.3 g/dL (3.5-5.0); Calcium 8.6 mg/dL (8.4-10.2); Potassium 3.8 mmol/L (3.5-5.1); Total Bilirubin 3.3 mg/dL (0.2-1.3); Total Protein 4.7 g/dL (6.3-8.2)
[2020-08-03 05:24] LABS: ABG Base Excess -1.4 mmol/L; ABG HCO3 22 mmol/L (21-25); ABG PCO2 32 mmHg (35-45); ABG PH 7.46 (7.35-7.45); ABG TCO2 23 mmol/L (19-24); Allen Test Performed? Yes
[2020-08-03 05:29] LABS: Platelet Count 18 k/uL (150-450)
[2020-08-03 05:52] LABS: ABG Oxygen Saturation 94.3 % (94-97)
[2020-08-03 06:01] LABS: ABG PO2 69 mmHg (83-108)
[2020-08-03 06:04] LABS: Glucose,Whole Blood 121 mg/dL (75-99)
[2020-08-03 07:11] LABS: Metamyelocytes # (M) 0.05 k/uL (0); Metamyelocytes % 3 %; Nucleated Red Blood Cells 0 /100 WBC (0-0)
[2020-08-03 07:12] LABS: RBC Fragments Present
[2020-08-03] MEDS: ALBUTEROL HFA INHALER INHALATION SCH ×3 (07:31→19:58)
[2020-08-03 08:05] LABS: Band Neutrophils % 5 %; Lymphocytes # (M) 0.48 k/uL (1.0-4.8); Monocytes # (M) 0.32 k/uL (0-1.0); Neutrophils % (M) 42 %; Total Cells Counted 100
--- NOTE | 2020-08-03 08:13 | XR ---
EXAMINATION TYPE: XR chest 1V DATE OF EXAM: 08/03/2020 COMPARISON: 08/02/2020 INDICATION: Covid TECHNIQUE: Single frontal view of the chest is obtained. FINDINGS: The heart size is normal. The pulmonary vasculature is normal. Mild bibasilar infiltrates are present. This is improved on the right base. Some left apical scarring or infiltrate may be present. Tracheostomy tube is in the midline. Right central venous catheter tips are within the proximal right atrium. IMPRESSION: 1. Improving right lower lobe infiltrate. Some minimal residual infiltrate is at the left base. 2. Lines and catheters discussed above.
--- NOTE | 2020-08-03 09:01 | P.PN ---
Subjective Progress Note Date: 08/03/20 On 08/02/2020 on seeing the patient for a follow-up. The patient is still on mechanical ventilatorin an AC mode with tidal volume of 450 and a fio2 f 30% with a PEEP of 5 and the rate of 24. Noted the patient is post tracheostomy tube insertion for prolonged respiratory failure and the patient also effective in place. Patient is currently off sedation. The patient remains encephalopathic for a while although it was noted that his level of consciousness was gradually improving. He was able to open up his eyes. He will return to voices but unable to squeeze or use his fingers are regular. On today's evaluation, the patient grimaces to deep painful stimulation. He opens his eyes spontaneously. Does not follow commands. Profoundly weak, cannot move his arms or legs. He has dropped feet bilaterally. Neuro status being monitored very closely. No signs of any respiratory distress. The patient remains on a mechanical ventilator. The blood gases was noted. A chest x-ray was noted. The patient has a tracheostomy tube in place. The patient has a Bivona tracheostomy tube #7. The patient also has a right IJ's catheter for hemodialysis. Limited infiltration lung bases bilaterally. He is a case of COVID-19 pneumonia and the patient has limited on Decadron 4 mg IV every 24 hours. The patient is on no pressors. The patient remains on hemodialysis per nephrology. Antibiotic coverage is with a combination of Eraxis and cefepime as the patient was found to have a positive Armida albicans in the catheter tips, sputum and urine cultures. During the course of the illness, the patient also developed pancytopenia secondary to chronic illness and bone marrow suppression. The patient required several placed on Zarxio. The patient is also undergoing hemodialysis per nephrology. His last hemodialysis was done more than a week ago. His producing adequate amount of urine output. His urine output is in order of 2.5 L on a daily basis. His creatinine today is at 3.4 with a BUN of 160. Rest of the electrodes are all within normal limits. Blood gas showed a pH of 7.44 with a pCO2 of 33 and pO2 of 90. Chest x-ray from today is showing a stable right lower lobe pulmonary infiltration otherwise all of the catheters and tubes are in good location and the patient has a dialysis catheter in his right IJ and a Bivona tracheostomy tube which is also in place. On 08/03/2020, the patient is in the intensive care unit. The patient is currently sedation and his been off sedation for the past several days. We are closely monitoring his neuro status. He opens his eyes spontanous. We feel that he is responding but he is profoundly weak to the point where he cannot mo ve his extremities. I feel like on today's neuro evaluation is essentially the same as yesterday. He is not following any commands for me. I was told by the nursing staff that he has occasional done that. He does grimace when related. He remains on a mechanical ventilator. He is quite tachypneic and he was using some abdominal muscles of breathing. Based on that, I switched him to ABC plus mode with a tidal volume of 500 and the rate of 24 with an FiO2 of 25% with a PEEP of IV. The chest x-ray from this morning is showing that the patient has a tracheostomy tube which is sitting in the trachea and essentially in the upper trachea. The patient also has a dialysis catheter on the right IJ. No major infiltration. The previous described right lower lobe pulmonary infiltrate looks slightly improved on today's chest x-ray. No evidence of any pneumothorax. The blood gases from today shows a pH of 7.46 with a pCO2 of 32 and pO2 of 69 and this was on FiO2 of 25%. In terms of his blood work, the patient patient has a sodium level of 145, BUN is 155 with a creatinine of 2.8. He is producing renal foot and there are no signs of fluid overload. His fluid balance has been essentially in the order of -2 50 mL over the past 24 hours and the patient has produced approximately 2.5 L of urine output. His creatinine is lower than the patient is not receiving hemodialysis for the time being. At the same time, his hematologic profile is improved. His white cell count is up to 1.6. Hemoglobin is up to 7.6. There is a drop in the platelet count down to 18,000. No signs of bleeding. The patient was taken off anticoagulation yesterday. LFTs abnormal yet improved compared to yesterday, AST is down to 124, ALT is down to 261, alkaline phosphatase is down to 239. His pro-ca lcitonin level from few days back was 1.39. The patient is receiving his antibiotics and he is on days #7 of Eraxis regarding fungal infections in his catheter tip, sputum and the urine. He does have a fecal management system. He is having stool which is liquidy and output is approximately 200 mL overnight. Objective - Vital Signs Vital signs: Vital Signs Temp 99.5 F 08/03/20 04:00 Pulse 133 H 08/03/20 07:00 Resp 32 H 08/03/20 07:00 BP 165/102 08/03/20 07:00 Pulse Ox 92 L 08/03/20 07:00 Intake & Output 08/02/20 08/03/20 08/03/20 18:59 06:59 18:59 Intake Total 1600 1395 Output Total 1485 1650 Balance 115 -255 Weight 103.2 kg 105.1 kg Intake: IV 160 130 0.9 Normal Saline 110 130 Cefepime 1 gm In Sodium 50 Chloride 0.9% 50 ml @ 12. 5 mls/hr IVPB Q12HR [facility] Rx#:[id number] Intake, IV Titration 100 Amount Anidulafungin 100 mg In 100 Sodium Chloride 0.9% 100 ml @ 84 mls/hr IVPB DAILY [facility] Rx#:[id number] Tube Feeding 440 440 Other 900 825 Output: Urine 1485 1650 Other: Voiding Method Indwelling Catheter Indwelling Catheter ABP, PAP, CO, CI - Last Documented Arterial Blood Pressure 118/64 - Exam GENERAL EXAM: Encephalopathic morbidly obese 51-year-old white male, trached to the ventilator, on assist-control mode of ventilation with a 25% PEEP of 5, patient opens eyes to command, and turns head to voice but unable to move extremities related to severe generalized weakness comfortable in no apparent distress. He is having leaks around the tracheostomy stoma and there is an audible leak that needs to be fixed. He is quite uncomfortable while on the mechanical ventilator. Is currently using abdominal muscles of breathing. Slightly tachycardic and tachypneic. Pulse ox in the order of 93%. HEAD: Normocephalic/atraumatic. EYES: Normal reaction of pupils, equal size. Conjunctiva pink, sclera white. NOSE: Clear with pink turbinates. THROAT: No erythema or exudates. NECK: No masses, no JVD, no thyroid enlargement, no adenopathy. Midline tracheostomy connected to the ventilator CHEST: No chest wall deformity. Symmetrical expansion. Right subclavian permacath in place and patient is receiving hemodialysis LUNGS: Equal air entry with no crackles, wheeze, rhonchi or dullness. CVS: Regular rate and rhythm, normal S1 and S2, no gallops, no murmurs, no rubs ABDOMEN: Soft, nontender. No hepatosplenomegaly, normal bowel sounds, no guarding or rigidity. PEG tube in place EXTREMITIES: No clubbing, generalized edema no cyanosis, 2+ pulses and upper and lower extremities. Patient has black fingertips on his left hand MUSCULOSKELETAL: Muscle strength and tone normal. Right groin temporary hemodialysis catheter in place SPINE: No scoliosis or deformity SKIN: No rashes CENTRAL NERVOUS SYSTEM: Encephalopathic, but opens eyes to voice, turns head to voice, trached to the ventilator No focal deficits, tone is low in all 4 extremities.. The patient has dropped feet bilaterally - Labs CBC & Chem 7: 08/03/20 03:00 08/03/20 03:00 Labs: Abnormal Lab Results - Last 24 Hours (Table) 08/02/20 08/02/20 08/03/20 Range/Units 11:43 17:43 00:21 WBC (3.8-10.6) k/uL RBC (4.30-5.90) m/uL Hgb (13.0-17.5) gm/dL Hct (39.0-53.0) % RDW (11.5-15.5) % Plt Count (150-450) k/uL Neutrophils # (Manual) (1.3-7.7) k/uL Lymphocytes # (Manual) (1.0-4.8) k/uL Metamyelocytes # (Man) (0) k/uL ABG pH (7.35-7.45) ABG pCO2 (35-45) mmHg ABG pO2 (83-108) mmHg Chloride (98-107) mmol/L Carbon Dioxide (22-30) mmol/L BUN (9-20) mg/dL Creatinine (0.66-1.25) mg/dL Glucose (74-99) mg/dL POC Glucose (mg/dL) 127 H 126 H 125 H (75-99) mg/dL Total Bilirubin (0.2-1.3) mg/dL AST (17-59) U/L ALT (4-49) U/L Alkaline Phosphatase (38-126) U/L Total Protein (6.3-8.2) g/dL Albumin (3.5-5.0) g/dL 08/03/20 08/03/20 08/03/20 Range/Units 03:00 03:00 05:20 WBC 1.6 L (3.8-10.6) k/uL RBC 2.53 L (4.30-5.90) m/uL Hgb 7.6 L (13.0-17.5) gm/dL Hct 23.1 L (39.0-53.0) % RDW 16.3 H (11.5-15.5) % Plt Count 18 L* D (150-450) k/uL Neutrophils # (Manual) 0.70 L (1.3-7.7) k/uL Lymphocytes # (Manual) 0.48 L (1.0-4.8) k/uL Metamyelocytes # (Man) 0.05 H (0) k/uL ABG pH 7.46 H (7.35-7.45) ABG pCO2 32 L (35-45) mmHg ABG pO2 69 L (83-108) mmHg Chloride 112 H (98-107) mmol/L Carbon Dioxide 20 L (22-30) mmol/L BUN 155 H* (9-20) mg/dL Creatinine 2.86 H (0.66-1.25) mg/dL Glucose 116 H (74-99) mg/dL POC Glucose (mg/dL) (75-99) mg/dL Total Bilirubin 3.3 H (0.2-1.3) mg/dL AST 124 H (17-59) U/L ALT 261 H (4-49) U/L Alkaline Phosphatase 239 H (38-126) U/L Total Protein 4.7 L (6.3-8.2) g/dL Albumin 2.3 L (3.5-5.0) g/dL 08/03/20 Range/Units 06:03 WBC (3.8-10.6) k/uL RBC (4.30-5.90) m/uL Hgb (13.0-17.5) gm/dL Hct (39.0-53.0) % RDW (11.5-15.5) % Plt Count (150-450) k/uL Neutrophils # (Manual) (1.3-7.7) k/uL Lymphocytes # (Manual) (1.0-4.8) k/uL Metamyelocytes # (Man) (0) k/uL ABG pH (7.35-7.45) ABG pCO2 (35-45) mmHg ABG pO2 (83-108) mmHg Chloride (98-107) mmol/L Carbon Dioxide (22-30) mmol/L BUN (9-20) mg/dL Creatinine (0.66-1.25) mg/dL Glucose (74-99) mg/dL POC Glucose (mg/dL) 121 H (75-99) mg/dL Total Bilirubin (0.2-1.3) mg/dL AST (17-59) U/L ALT (4-49) U/L Alkaline Phosphatase (38-126) U/L Total Protein (6.3-8.2) g/dL Albumin (3.5-5.0) g/dL Microbiology - Last 24 Hours (Table) 07/28/20 11:45 Blood Culture - Preliminary Blood No Growth after 120 hours 07/30/20 10:12 Anaerobic Culture - Final Neck Anaerobic Gm Negative Bacilli Anaerobic Gm Negative Bacilli#2 Anaerobic Gm Negative Bacilli#3 Assessment and Plan Plan: #1. Acute hypoxic respiratory failure secondary to COVID-19 pneumonia. Patient received toci and convalescent plasma., Patient is status post tracheostomy and PEG tube placement on 07/21/2020. The chest x-ray showing some limited infiltration of the right lung base post COVID-19 related pneumonia. Tracheostomy tube is in a good location. She is having some leaks another tracheostomy tube. On today's evaluation he was found to have some abdominal breathing while on a mechanical ventilator. He was switched to a VC+ mode with a tidal volume of 500 and FiO2 of 25% with a PEEP of 5 #2. Encephalopathic, multifactorial, including metabolic factors and drug related factors. The patient is noted to be more arousable. Nevertheless, not following any commands. May benefit from some Precedex due to his underlying autonomic reaction which includes tachypnea, tachycardia and some abdominal breathing and restlessness while being on a mechanical ventilator. #3. Acute ischemic stroke, in right frontal region with mild petechial hemorrhage in the cortical ribbon #4. Acute kidney injury and the patient is receiving hemodialysis intermittently. Last hemodialysis was more than a week before the patient is producing adequate amount of urine output and the creatinine is down to 2.8 patient is producing adequate amount of urine output, currently off dialysis #5. Altered mental status, related to toxic metabolic encephalopathy, severe, related to multiple organ dysfunction #6. Possible petechial hemorrhage within the right frontal lobe, seen on the CT of the brain, neurology is following #7. Severe metabolic acidosis, improved and resolved after dialysis. #8. Hyperkalemia secondary to above, improved with hemodialysis #9. Benign essential hypertension. #10. Superficial vein thromboses and left cephalic vein and left basilic vein #11. Heparin-induced thrombocytopenia, patient was treated Argatroban and later on was switched to Eliquis #12. History of obstructive sleep apnea syndrome #13. Morbid obesity #14. Increased d-dimer related to COVID-19, patient was started on Eliquis which will be restarted after his surgical procedures #15. Plugged PEG tube, status post PEG tube revision on 07/26/2020, hysterectomy is currently functional #16. Pancytopenia, likely related to sepsis, hematology is following, on Zarxio #17. Critical illness polyneuropathy, severe generalized weakness #18 diarrhea/loose stools and the patient had a fecal management system in place Plan: Monitor mental status May use some low-dose Precedex for comfort Repeat CAT scan of the brain specially with underlying thrombocytopenia to rule out any [employer] bleeds Continue vent support necessary ventilator changes were done and the patient is currently on a the VC plus mode Monitor hematologic profile Continue Zarxio Platelet transfusion should the level dropped below 10,000 Complete a total of seven-day course Eraxis and then stop Continue following blood counts, hematology recs Continue following cultures Physical therapy consultation for eval and treat Social work consultation for LTAC placement 60 leaks through the tracheostomy stoma Continue enteral feeding for nutritional support Critical care evaluation was done more than 30 minutes Time with Patient: Greater than 30
[2020-08-03] MEDS: PANTOPRAZOLE 40 MG/10 ML VIAL IVP SCH ×2 (09:56→20:19)
[2020-08-03] MEDS: ASPIRIN 300 MG SUPP RECTAL SCH (09:56)
[2020-08-03] MEDS: MAG HYDROX/AL HYDROX/SIMETH 30 ML, diphenhydrAMINE ELIXIR 75 MG, NYSTATIN 100,000 UNIT/... PO SCH ×9 (09:57→20:19)
[2020-08-03] MEDS: ANIDULAFUNGIN 100 MG in SODIUM CHLORIDE 0.9% 100 ML IVPB SCH (09:57)
[2020-08-03] MEDS: CHOLESTYRAMINE (WITH SUGAR) 4 GM PACKET PO SCH ×2 (09:58→17:43)
[2020-08-03] MEDS: SODIUM CHLORIDE 0.45% 1,000 ML IV SCH (09:59)
[2020-08-03] MEDS: DEXMEDETOMIDINE/0.9% NACL(PMX) 400 MCG in EMPTY BAG 1 BAG IV SCH ×2 (10:00→17:43)
--- NOTE | 2020-08-03 11:05 | CT ---
EXAMINATION TYPE: CT brain wo con DATE OF EXAM: 08/03/2020 HISTORY: Altered mental status CT DLP: 1202.4 mGycm. Automated Exposure Control for Dose Reduction was Utilized. TECHNIQUE: CT scan of the head is performed without contrast. COMPARISON: CT brain July 28, 2020 FINDINGS: There is no new acute intracranial hemorrhage or midline shift identified. There is mild to moderate diffuse ventricular and sulcal prominence consistent with diffuse cerebral atrophy greate st over bilateral frontal lobes redemonstrated. Findings slightly more prominent over the left versu s right side similar to prior. There is mild low-attenuation in the periventricular white matter cons istent with chronic small vessel ischemic change redemonstrated. Persistent focal area of low-attenuation with subcortical curvilinear hyperdensity felt to reflect ev olving acute/subacute hemorrhagic infarct near axial image 20 and coronal image 33 current study. No significant change from prior studies. Increased opacification right mastoid air cells redemonstrated. Improved findings on the left side no dav. Correlate clinically to exclude mastoiditis. Persistent dependent and patchy fluid right sphenoid sinus and dependent fluid in the posterior left ethmoid sinus similar to prior. Globes remain intact bilaterally. IMPRESSION: Overall stable findings, evolving subacute hemorrhagic infarct right frontal lobe is felt redemonstrated, no significant interval change. No new acute intracranial hemorrhage or midline shif t. Improved left sided mastoid opacification otherwise no significant interval change.
[2020-08-03] MEDS: HYDROmorphone 1 MG/ML 1 ML SYRINGE IVP PRN ×3 (11:15→20:52)
[2020-08-03 11:46] LABS: Glucose,Whole Blood 118 mg/dL (75-99)
--- NOTE | 2020-08-03 12:47 | PN ---
PROGRESS NOTE DATE OF SERVICE: 08/03/2020 REASON FOR FOLLOWUP: Pneumonia and UTI. INTERVAL HISTORY: The patient is afebrile this morning. He did spike a fever of 101.5 degrees Fahrenheit last night. The patient is currently hemodynamically stable not on any pressor support. FiO2 is currently down to 25%. Still has significant amount of secretion around his trach site. Did have diarrhea but no worsening has been reported. Mentation remains to be an issue. PHYSICAL EXAMINATION: Blood pressure 144/97, pulse of 130, temperature 99.5, T-max is 101.5. He is 92% on 25% FiO2. General description is a middle-aged male lying in bed in no distress. RESPIRATORY SYSTEM: Unlabored breathing. Bilateral upper rhonchi. HEART: S1, S2. Regular rate and rhythm. ABDOMEN: Soft, no tenderness. LABS: Hemoglobin is 7.6, white count 1.6, BUN 155, creatinine is 2.86. Local culture showing anaerobes. DIAGNOSTIC IMPRESSION AND PLAN: Patient with fever, which is multifactorial in this patient who did have catheter- associated urinary tract infection along with some cellulitis at the trach site. Culture now showing anaerobic gram-negative. Flagyl will be added to continue with cefepime and Eraxis. Monitor his clinical course closely. Prognosis remains to be guarded. MMODL / IJN: [id number] /
--- NOTE | 2020-08-03 13:50 | P.PN ---
Subjective Progress Note Date: 08/03/20 CHIEF COMPLAINT: Shortness of breath HISTORY OF PRESENT ILLNESS: Patient currently in the ICU and on mechanical ventilation. He has been on the vent since 07/05/2020. He has acute hypoxic respiratory failure due to COVID-19 pneumonia. Patient is status post tracheostomy and PEG tube placement on 07/21/20. However, patient's PEG tube did get plugged. He is now status post PEG tube replacement on 07/26/2020. He is tolerating tube feedings. Patient has infection at tracheostomy site and is followed by ID. He continues to have leak through the tracheostomy stoma. Afebrile. WBC 0.3. Patient seen and examined with Dr. Mcdowell PHYSICAL EXAM: VITAL SIGNS: Reviewed. GENERAL: Well-developed in no acute distress. HEENT: Head is atraumatic, normocephalic. Tracheostomy site with purulent dr he ABDOMEN: Soft. Nondistended. Nontender. PEG tube site clean dry and intact NEUROLOGIC: Intubated ASSESSMENT: 1. Acute hypoxic respiratory failure secondary to acute COVID-19 pneumonia with prolonged mechanical ventilation. Status post tracheostomy placement 2. Severe Protein calorie malnutrition status post PEG tube placement 3. Infection at tracheostomy site PLAN: -Continue PEG tube feedings -Continue ICU management -Continue supportive care -Antibiotics per ID -Continue to monitor tracheostomy leak Physician General Matcher note has been reviewed by physician. Signing provider agrees with the documented findings, assessment, and plan of care. Objective - Vital Signs Vital signs: Vital Signs Temp 99.8 F H 08/03/20 13:00 Pulse 98 08/03/20 13:00 Resp 26 H 08/03/20 13:00 BP 100/65 08/03/20 13:00 Pulse Ox 96 08/03/20 13:00 Intake & Output 08/02/20 08/03/20 08/03/20 18:59 06:59 18:59 Intake Total 1600 1395 435 Output Total 1485 1650 375 Balance 115 -255 60 Weight 103.2 kg 105.1 kg Intake: IV 160 130 0.9 Normal Saline 110 130 Cefepime 1 gm In Sodium 50 Chloride 0.9% 50 ml @ 12. 5 mls/hr IVPB Q12HR [facility] Rx#:[id number] Intake, IV Titration 100 200 Amount Anidulafungin 100 mg In 100 Sodium Chloride 0.9% 100 ml @ 84 mls/hr IVPB DAILY [facility] Rx#:[id number] Sodium Chloride 0.45% 1, 200 000 ml @ 50 mls/hr IV . Q20H [facility] Rx#:[id number] Tube Feeding 440 440 160 Other 900 825 75 Output: Urine 1485 1650 375 Other: Voiding Method Indwelling Catheter Indwelling Catheter ABP, PAP, CO, CI - Last Documented Arterial Blood Pressure 118/64 - Labs CBC & Chem 7: 08/03/20 03:00 08/03/20 03:00 Labs: Abnormal Lab Results - Last 24 Hours (Table) 08/02/20 08/03/20 08/03/20 Range/Units 17:43 00:21 03:00 WBC 1.6 L (3.8-10.6) k/uL RBC 2.53 L (4.30-5.90) m/uL Hgb 7.6 L (13.0-17.5) gm/dL Hct 23.1 L (39.0-53.0) % RDW 16.3 H (11.5-15.5) % Plt Count 18 L* D (150-450) k/uL Neutrophils # (Manual) 0.70 L (1.3-7.7) k/uL Lymphocytes # (Manual) 0.48 L (1.0-4.8) k/uL Metamyelocytes # (Man) 0.05 H (0) k/uL ABG pH (7.35-7.45) ABG pCO2 (35-45) mmHg ABG pO2 (83-108) mmHg Chloride (98-107) mmol/L Carbon Dioxide (22-30) mmol/L BUN (9-20) mg/dL Creatinine (0.66-1.25) mg/dL Glucose (74-99) mg/dL POC Glucose (mg/dL) 126 H 125 H (75-99) mg/dL Total Bilirubin (0.2-1.3) mg/dL AST (17-59) U/L ALT (4-49) U/L Alkaline Phosphatase (38-126) U/L Total Protein (6.3-8.2) g/dL Albumin (3.5-5.0) g/dL 08/03/20 08/03/20 08/03/20 Range/Units 03:00 05:20 06:03 WBC (3.8-10.6) k/uL RBC (4.30-5.90) m/uL Hgb (13.0-17.5) gm/dL Hct (39.0-53.0) % RDW (11.5-15.5) % Plt Count (150-450) k/uL Neutrophils # (Manual) (1.3-7.7) k/uL Lymphocytes # (Manual) (1.0-4.8) k/uL Metamyelocytes # (Man) (0) k/uL ABG pH 7.46 H (7.35-7.45) ABG pCO2 32 L (35-45) mmHg ABG pO2 69 L (83-108) mmHg Chloride 112 H (98-107) mmol/L Carbon Dioxide 20 L (22-30) mmol/L BUN 155 H* (9-20) mg/dL Creatinine 2.86 H (0.66-1.25) mg/dL Glucose 116 H (74-99) mg/dL POC Glucose (mg/dL) 121 H (75-99) mg/dL Total Bilirubin 3.3 H (0.2-1.3) mg/dL AST 124 H (17-59) U/L ALT 261 H (4-49) U/L Alkaline Phosphatase 239 H (38-126) U/L Total Protein 4.7 L (6.3-8.2) g/dL Albumin 2.3 L (3.5-5.0) g/dL 08/03/20 Range/Units 11:45 WBC (3.8-10.6) k/uL RBC (4.30-5.90) m/uL Hgb (13.0-17.5) gm/dL Hct (39.0-53.0) % RDW (11.5-15.5) % Plt Count (150-450) k/uL Neutrophils # (Manual) (1.3-7.7) k/uL Lymphocytes # (Manual) (1.0-4.8) k/uL Metamyelocytes # (Man) (0) k/uL ABG pH (7.35-7.45) ABG pCO2 (35-45) mmHg ABG pO2 (83-108) mmHg Chloride (98-107) mmol/L Carbon Dioxide (22-30) mmol/L BUN (9-20) mg/dL Creatinine (0.66-1.25) mg/dL Glucose (74-99) mg/dL POC Glucose (mg/dL) 118 H (75-99) mg/dL Total Bilirubin (0.2-1.3) mg/dL AST (17-59) U/L ALT (4-49) U/L Alkaline Phosphatase (38-126) U/L Total Protein (6.3-8.2) g/dL Albumin (3.5-5.0) g/dL Microbiology - Last 24 Hours (Table) 07/28/20 11:45 Blood Culture - Preliminary Blood No Growth after 120 hours 07/30/20 10:12 Anaerobic Culture - Final Neck Anaerobic Gm Negative Bacilli Anaerobic Gm Negative Bacilli#2 Anaerobic Gm Negative Bacilli#3
--- NOTE | 2020-08-03 14:56 | PN ---
PROGRESS NOTE Patient is seen for followup for acute kidney injury. The patient's general condition is about the same as yesterday with no significant changes. He remains on the vent. Serum creatinine has improved to 2.8 mg/dL. BUN remains elevated at 155. The patient continues to be significantly encephalopathic and is going down for a CT of the brain. On examination, the patient is not examined. Case is discussed with nursing staff. Blood pressure noted to be 123/77, heart rate 130 per minute. He is afebrile. LABS: Labs are reviewed. Hemoglobin 7.6, platelet count 18,000. Sodium 145, potassium 3.8, chloride 112, CO2 is 20, BUN 155, serum creatinine 2.86. ASSESSMENT: 1. Acute kidney injury, acute tubular necrosis, currently nonoliguric with significantly elevated BUN, but improvement since yesterday. Since patient is significantly encephalopathic, we will proceed with dialysis tomorrow. In the meantime, I will add gentle IV hydration. No nephrotoxic agents on board. 2. Acute hypoxic respiratory failure secondary to COVID pneumonia currently on the vent, status post trach and PEG. 3. Volume overload currently significantly improved from 2 weeks ago. 4. Disproportionately elevated BUN secondary to steroids, possible underlying gastrointestinal bleed. 5. Acute ischemic stroke, right frontal region. 6. Heparin-induced thrombocytopenia, status post treatment with argatroban, currently on Eliquis. PLAN: Start IV fluids at 50 mL an hour. We will plan for hemodialysis tomorrow to assess for any improvement in his mentation post dialysis. MMODL / IJN: [id number] /
--- NOTE | 2020-08-03 15:39 | P.PN ---
Subjective Progress Note Date: 08/03/20 Neurology was reconsulted to check on the computed tomography scan of head that was performed today. Per nursing report, he is on Precedex 0.3 mcg/kg/m. Patient has tracheostomy. Please refer to examination below. No seizure-like activity. Objective - Vital Signs Vital signs: Vital Signs Temp 99.2 F 08/03/20 15:00 Pulse 93 08/03/20 15:00 Resp 16 08/03/20 15:00 BP 96/60 08/03/20 15:00 Pulse Ox 97 08/03/20 15:00 Intake & Output 08/02/20 08/03/20 08/03/20 18:59 06:59 18:59 Intake Total 1600 1395 435 Output Total 1485 1650 415 Balance 115 -255 20 Weight 103.2 kg 105.1 kg Intake: IV 160 130 0.9 Normal Saline 110 130 Cefepime 1 gm In Sodium 50 Chloride 0.9% 50 ml @ 12. 5 mls/hr IVPB Q12HR [facility] Rx#:[id number] Intake, IV Titration 100 200 Amount Anidulafungin 100 mg In 100 Sodium Chloride 0.9% 100 ml @ 84 mls/hr IVPB DAILY [facility] Rx#:[id number] Sodium Chloride 0.45% 1, 200 000 ml @ 50 mls/hr IV . Q20H [facility] Rx#:[id number] Tube Feeding 440 440 160 Blood Product 0 Platelet Pheresis Pas 0 Psoralen Unit [id number] Other 900 825 75 Output: Urine 1485 1650 415 Other: Voiding Method Indwelling Catheter Indwelling Catheter Indwelling Catheter ABP, PAP, CO, CI - Last Documented Arterial Blood Pressure 118/64 - Exam On examination patient is a middle aged male, appears somnolent at this time. Patient did open his eyes to the painful stimuli. Patient very briefly made eye contact, and moved his gaze to the nurse when she called his name loudly. Patient grimaces to painful stimuli on either upper extremities, equally. Pupils are round and reacting. Patient did not follow any commands li ke moving his hands or feet. Patient is apparently legally blind. Tone is decreased, particularly in the hands. Patient has demarcation of the fingertips of the left hand from ischemia. It is evolving. Reflexes are absent, plantars are flat. Patient has moderate peripheral edema. - Labs CBC & Chem 7: 08/03/20 03:00 08/03/20 03:00 Labs: Abnormal Lab Results - Last 24 Hours (Table) 08/02/20 08/03/20 08/03/20 Range/Units 17:43 00:21 03:00 WBC 1.6 L (3.8-10.6) k/uL RBC 2.53 L (4.30-5.90) m/uL Hgb 7.6 L (13.0-17.5) gm/dL Hct 23.1 L (39.0-53.0) % RDW 16.3 H (11.5-15.5) % Plt Count 18 L* D (150-450) k/uL Neutrophils # (Manual) 0.70 L (1.3-7.7) k/uL Lymphocytes # (Manual) 0.48 L (1.0-4.8) k/uL Metamyelocytes # (Man) 0.05 H (0) k/uL ABG pH (7.35-7.45) ABG pCO2 (35-45) mmHg ABG pO2 (83-108) mmHg Chloride (98-107) mmol/L Carbon Dioxide (22-30) mmol/L BUN (9-20) mg/dL Creatinine (0.66-1.25) mg/dL Glucose (74-99) mg/dL POC Glucose (mg/dL) 126 H 125 H (75-99) mg/dL Total Bilirubin (0.2-1.3) mg/dL AST (17-59) U/L ALT (4-49) U/L Alkaline Phosphatase (38-126) U/L Total Protein (6.3-8.2) g/dL Albumin (3.5-5.0) g/dL 08/03/20 08/03/20 08/03/20 Range/Units 03:00 05:20 06:03 WBC (3.8-10.6) k/uL RBC (4.30-5.90) m/uL Hgb (13.0-17.5) gm/dL Hct (39.0-53.0) % RDW (11.5-15.5) % Plt Count (150-450) k/uL Neutrophils # (Manual) (1.3-7.7) k/uL Lymphocytes # (Manual) (1.0-4.8) k/uL Metamyelocytes # (Man) (0) k/uL ABG pH 7.46 H (7.35-7.45) ABG pCO2 32 L (35-45) mmHg ABG pO2 69 L (83-108) mmHg Chloride 112 H (98-107) mmol/L Carbon Dioxide 20 L (22-30) mmol/L BUN 155 H* (9-20) mg/dL Creatinine 2.86 H (0.66-1.25) mg/dL Glucose 116 H (74-99) mg/dL POC Glucose (mg/dL) 121 H (75-99) mg/dL Total Bilirubin 3.3 H (0.2-1.3) mg/dL AST 124 H (17-59) U/L ALT 261 H (4-49) U/L Alkaline Phosphatase 239 H (38-126) U/L Total Protein 4.7 L (6.3-8.2) g/dL Albumin 2.3 L (3.5-5.0) g/dL 08/03/20 Range/Units 11:45 WBC (3.8-10.6) k/uL RBC (4.30-5.90) m/uL Hgb (13.0-17.5) gm/dL Hct (39.0-53.0) % RDW (11.5-15.5) % Plt Count (150-450) k/uL Neutrophils # (Manual) (1.3-7.7) k/uL Lymphocytes # (Manual) (1.0-4.8) k/uL Metamyelocytes # (Man) (0) k/uL ABG pH (7.35-7.45) ABG pCO2 (35-45) mmHg ABG pO2 (83-108) mmHg Chloride (98-107) mmol/L Carbon Dioxide (22-30) mmol/L BUN (9-20) mg/dL Creatinine (0.66-1.25) mg/dL Glucose (74-99) mg/dL POC Glucose (mg/dL) 118 H (75-99) mg/dL Total Bilirubin (0.2-1.3) mg/dL AST (17-59) U/L ALT (4-49) U/L Alkaline Phosphatase (38-126) U/L Total Protein (6.3-8.2) g/dL Albumin (3.5-5.0) g/dL Microbiology - Last 24 Hours (Table) 07/28/20 11:45 Blood Culture - Final Blood No Growth after 144 hours Assessment and Plan Assessment: * Toxic metabolic encephalopathy, slightly improved. Reasons multifactorial as mentioned. * Acute ischemic stroke small, right frontal region with mild petechial hemorrhage in the cortical ribbon. * Acute kidney injury requiring hemodialysis. Renal functions improving, but now again worsening. * Acute hypoxic respiratory failure from COVID-19 related pneumonia, status post tracheostomy. * Status post revision of PEG tube. * Left hand ischemia * Anemia * Leukopenia (new onset) * Hypertension * Morbid obesity * Legal blindness * Obstructive sleep apnea * Superficial venous thrombosis Plan: * Patient had a repeat computed tomography scan of head performed today 08/03/2020, which revealed stable findings, evolving subacute hemorrhagic infarct right frontal lobe redemonstrated. Overall it has not changed significantly since the initial study on 07/22/2020. Patient is severely t hrombocytopenic. Okay to stop aspirin, due to risk of more ICH. May resume aspirin when medically feasible. * Carotid Doppler showed no hemodynamic significant stenosis of the proximal IC A. * 2-D echo from 07/06/2020 showed normal left-ventricular size. Moderate concentric LVH. EF is 55-60%. Right ventricle is severely enlarged. Mild TR. * Patient's toxic metabolic encephalopathy has improved. He continues to be severely encephalopathic. Patient is awake, blinks, but minimal response to external stimuli and still does not following commands at least on my examination. 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 * EEG 07/20/2020 also revealed severe degree of background slowing consistent with encephalopathy. No epileptiform activity seen. * Prognosis is still very guarded based upon his current neurological status, physical examination and underlying multiple comorbid conditions. * Patient was on on Apixaban for superficial venous thrombosis, which was discontinued on 07/19/2020 for anticipation for tracheostomy. * Patient is status post PEG tube replacement.
[2020-08-03] MEDS: metroNIDAZOLE 500 MG TAB PEG/G-TUBE SCH ×2 (17:00→20:20)
[2020-08-03] MEDS: FILGRASTIM-SNDZ 480 MCG/0.8 ML SYRINGE SQ SCH (17:29)
[2020-08-03 17:40] LABS: Glucose,Whole Blood 127 mg/dL (75-99)
--- NOTE | 2020-08-03 18:45 | P.PN ---
Subjective Progress Note Date: 08/03/20 Principal diagnosis: Covid pneumonia. Pancytopenia Physical examination of the patient deferred due to covid pneumonia, pt was visualized resting comfortably. Case reviewed with RN. Objective - Vital Signs Vital signs: Vital Signs Temp 99.9 F H 08/03/20 16:28 Pulse 103 H 08/03/20 17:00 Resp 27 H 08/03/20 17:00 BP 140/80 08/03/20 17:00 Pulse Ox 96 08/03/20 17:00 Intake & Output 08/02/20 08/03/20 08/03/20 18:59 06:59 18:59 Intake Total 1600 1395 935.83 Output Total 1485 1650 615 Balance 115 -255 320.83 Weight 103.2 kg 105.1 kg Intake: IV 160 130 10 0.9 Normal Saline 110 130 10 Cefepime 1 gm In Sodium 50 Chloride 0.9% 50 ml @ 12. 5 mls/hr IVPB Q12HR [facility] Rx#:[id number] Intake, IV Titration 100 260.83 Amount Anidulafungin 100 mg In 100 Sodium Chloride 0.9% 100 ml @ 84 mls/hr IVPB DAILY [facility] Rx#:[id number] Dexmedetomidine/0.9% NaCl 60.83 (Pmx) 400 mcg In Empty Bag 1 bag @ Titrate IV . Q0M [facility] Rx#:[id number] Sodium Chloride 0.45% 1, 200 000 ml @ 50 mls/hr IV . Q20H [facility] Rx#:[id number] Tube Feeding 440 440 240 Blood Product 350 Platelet Pheresis Pas 350 Psoralen Unit [id number] Other 900 825 75 Output: Urine 1485 1650 615 Other: Voiding Method Indwelling Catheter Indwelling Catheter Indwelling Catheter ABP, PAP, CO, CI - Last Documented Arterial Blood Pressure 118/64 - Constitutional General appearance: Present: average body habitus - Labs CBC & Chem 7: 08/03/20 03:00 08/03/20 03:00 Labs: Abnormal Lab Results - Last 24 Hours (Table) 08/03/20 08/03/20 08/03/20 Range/Units 00:21 03:00 03:00 WBC 1.6 L (3.8-10.6) k/uL RBC 2.53 L (4.30-5.90) m/uL Hgb 7.6 L (13.0-17.5) gm/dL Hct 23.1 L (39.0-53.0) % RDW 16.3 H (11.5-15.5) % Plt Count 18 L* D (150-450) k/uL Neutrophils # (Manual) 0.70 L (1.3-7.7) k/uL Lymphocytes # (Manual) 0.48 L (1.0-4.8) k/uL Metamyelocytes # (Man) 0.05 H (0) k/uL ABG pH (7.35-7.45) ABG pCO2 (35-45) mmHg ABG pO2 (83-108) mmHg Chloride 112 H (98-107) mmol/L Carbon Dioxide 20 L (22-30) mmol/L BUN 155 H* (9-20) mg/dL Creatinine 2.86 H (0.66-1.25) mg/dL Glucose 116 H (74-99) mg/dL POC Glucose (mg/dL) 125 H (75-99) mg/dL Total Bilirubin 3.3 H (0.2-1.3) mg/dL AST 124 H (17-59) U/L ALT 261 H (4-49) U/L Alkaline Phosphatase 239 H (38-126) U/L Total Protein 4.7 L (6.3-8.2) g/dL Albumin 2.3 L (3.5-5.0) g/dL 08/03/20 08/03/20 08/03/20 Range/Units 05:20 06:03 11:45 WBC (3.8-10.6) k/uL RBC (4.30-5.90) m/uL Hgb (13.0-17.5) gm/dL Hct (39.0-53.0) % RDW (11.5-15.5) % Plt Count (150-450) k/uL Neutrophils # (Manual) (1.3-7.7) k/uL Lymphocytes # (Manual) (1.0-4.8) k/uL Metamyelocytes # (Man) (0) k/uL ABG pH 7.46 H (7.35-7.45) ABG pCO2 32 L (35-45) mmHg ABG pO2 69 L (83-108) mmHg Chloride (98-107) mmol/L Carbon Dioxide (22-30) mmol/L BUN (9-20) mg/dL Creatinine (0.66-1.25) mg/dL Glucose (74-99) mg/dL POC Glucose (mg/dL) 121 H 118 H (75-99) mg/dL Total Bilirubin (0.2-1.3) mg/dL AST (17-59) U/L ALT (4-49) U/L Alkaline Phosphatase (38-126) U/L Total Protein (6.3-8.2) g/dL Albumin (3.5-5.0) g/dL 08/03/20 Range/Units 17:39 WBC (3.8-10.6) k/uL RBC (4.30-5.90) m/uL Hgb (13.0-17.5) gm/dL Hct (39.0-53.0) % RDW (11.5-15.5) % Plt Count (150-450) k/uL Neutrophils # (Manual) (1.3-7.7) k/uL Lymphocytes # (Manual) (1.0-4.8) k/uL Metamyelocytes # (Man) (0) k/uL ABG pH (7.35-7.45) ABG pCO2 (35-45) mmHg ABG pO2 (83-108) mmHg Chloride (98-107) mmol/L Carbon Dioxide (22-30) mmol/L BUN (9-20) mg/dL Creatinine (0.66-1.25) mg/dL Glucose (74-99) mg/dL POC Glucose (mg/dL) 127 H (75-99) mg/dL Total Bilirubin (0.2-1.3) mg/dL AST (17-59) U/L ALT (4-49) U/L Alkaline Phosphatase (38-126) U/L Total Protein (6.3-8.2) g/dL Albumin (3.5-5.0) g/dL Microbiology - Last 24 Hours (Table) 07/28/20 11:45 Blood Culture - Final Blood No Growth after 144 hours Assessment and Plan (1) Pancytopenia Narrative/Plan: Today patient remains on G-CSF. WBC is up to 1.6. Hemoglobin 7.6. Patient can be transfused if he is felt to be too symptomatic otherwise, transfuse for hemoglobin less than 7. Patient's platelets today are 18,000. Patient has a superficial thrombosis, also recent hemorrhagic stroke. He is not a candidate for anticoagulation at this time. Hit antibody was negative. Transfuse for platelets less than 10,000 or if patient is symptomatic. *Had CT head, stable hemorrhage. 300mg asa rectal was stopped due to plt of 18,000 today. DIC work up ordered STAT around noon today-still no results as of 1844. Cont CBC daily Pancytopenia workup is not going to be helpful in this acute case. Pending stability of the patient. Continue to monitor labs daily. Supportive care and treatment of underlying causes continues. Current Visit: Yes Status: Acute Priority: High Code(s): D61.818 - OTHER PANCYTOPENIA SNOMED Code(s): 039526488
[2020-08-03 22:38] LABS: LD Isoenzymes 1 31 % (19-38); LD Isoenzymes 2 40 % (30-43); LD Isoenzymes 3 17 % (16-26); LD Isoenzymes 4 5 % (3-12); LD Isoenzymes 5 7 % (3-14); Lactacte Dehydrogenase(LD) ISO 124 U/L (120-250)
[2020-08-03 23:55] LABS: Glucose,Whole Blood 123 mg/dL (75-99)
[2020-08-04] MEDS: INSULIN ASPART (NovoLOG) 100 UNIT/ML VIAL SQ SCH ×4 (00:13→17:56)
[2020-08-04] MEDS: HYDROmorphone 1 MG/ML 1 ML SYRINGE IVP PRN ×4 (00:13→21:39)
[2020-08-04] MEDS: DEXMEDETOMIDINE/0.9% NACL(PMX) 400 MCG in EMPTY BAG 1 BAG IV SCH ×4 (03:30→18:56)
[2020-08-04 03:37] LABS: Anisocytosis Slight; HCT 23.2 % (39.0-53.0); HGB 7.2 gm/dL (13.0-17.5); Hypochromasia Moderate; MCH 28.8 pg (25.0-35.0); Mean Platelet Volume 7.8; RDW 16.6 % (11.5-15.5); WBC 7.9 k/uL (3.8-10.6)
[2020-08-04 03:39] LABS: Platelet Count 15 k/uL (150-450)
[2020-08-04 03:47] LABS: Albumin 2.3 g/dL (3.5-5.0); Calcium 8.5 mg/dL (8.4-10.2); Potassium 3.9 mmol/L (3.5-5.1); Total Bilirubin 2.3 mg/dL (0.2-1.3); Total Protein 4.5 g/dL (6.3-8.2)
[2020-08-04 04:17] LABS: Band Neutrophils % 35 %; Lymphocytes # (M) 1.26 k/uL (1.0-4.8); Metamyelocytes # (M) 0.71 k/uL (0); Metamyelocytes % 9 %; Monocytes # (M) 0.08 k/uL (0-1.0); Myelocytes # (M) 0.08 k/uL (0); Myelocytes % 1 %; Neutrophils % (M) 38 %; Nucleated Red Blood Cells 0 /100 WBC (0-0); Total Cells Counted 200
[2020-08-04 06:31] LABS: Glucose,Whole Blood 143 mg/dL (75-99)
--- NOTE | 2020-08-04 07:38 | XR ---
EXAMINATION TYPE: XR chest 1V DATE OF EXAM: 08/04/2020 COMPARISON: 08/03/2020 HISTORY: SOB, Follow Up FINDINGS: Indwelling tubes and catheters are unchanged. Patchy basilar infiltrates persist. Stable appearance of the cardio-mediastinal structures at this time. Pleural effusion unchanged. IMPRESSION: 1. Stable portable chest. Clinical correlation and follow up until resolution is recommended.
[2020-08-04] MEDS: CHOLESTYRAMINE (WITH SUGAR) 4 GM PACKET PO SCH ×2 (08:47→17:56)
[2020-08-04] MEDS: PANTOPRAZOLE 40 MG/10 ML VIAL IVP SCH ×2 (08:47→21:37)
[2020-08-04] MEDS: metroNIDAZOLE 500 MG TAB PEG/G-TUBE SCH ×3 (08:47→21:38)
[2020-08-04] MEDS: ANIDULAFUNGIN 100 MG in SODIUM CHLORIDE 0.9% 100 ML IVPB SCH (08:50)
[2020-08-04] MEDS: ALBUTEROL HFA INHALER INHALATION SCH ×3 (08:54→19:52)
[2020-08-04] MEDS: MAG HYDROX/AL HYDROX/SIMETH 30 ML, diphenhydrAMINE ELIXIR 75 MG, NYSTATIN 100,000 UNIT/... PO SCH ×6 (09:20→16:04)
--- NOTE | 2020-08-04 10:05 | P.PN ---
Subjective Progress Note Date: 08/04/20 Principal diagnosis: Acute hypoxic respiratory failure second to COVId 19 pneumonia The patient is seen today 07/12/2020 in follow-up in the intensive care unit. He remains intubated, sedated on the mechanical ventilator at assist control mode of a rate of 36, tidal volume 450, FiO2 40% and a PEEP of 10. Morning blood gases reveal pO2 of 69, pCO2 41, pH 7.35. He remains sedated on propofol at 60 mcg/kg/m, fentanyl at 1 mcg/kg/h, norepinephrine at 0.09 mcg/kg//min, the patient is currently on 0.9 saline at rate of 50 mL an hour. The patient has been off Nimbex since yesterday. He is continued on Argatroban at 0.5 mcg/kg/m. Being nourished with Nepro at 15 ML's per hour. He did receive hemodialysis yesterday with 1 L removed. Chest x-ray reveals mild bibasilar infiltrates. Sputum cultures positive for beta-hemolytic strep, group C. White count 18.1. Hemoglobin 10.6. Platelet count 141. D-dimer 19.69. Sodium 133. Potassium 4.7. Creatinine 4.14. LDH 1067, C-reactive protein 24. Remains on antibiotics in the form of ceftriaxone. Bronchodilators. Vitamin supplements. Dexamethasone. 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 The platelet count is stable and the platelet count is up to 136. On 07/12/2020, the patient is being seen for follow-up. The patient is a 59-year-old obese male patient with a BMI of 36.2 with known history of obstructive sleep apnea, presented with COVID 19 related pneumonia patient is currently intubated on a mechanical ventilator. The patient has been on a mechanical ventilator since 07/05/2020. 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 During the course of his treatment, the patient developed an acute kidney injury secondary to ATN secondary to "with 19 infection. Urine output was improving and the patient's urine output was in order of 20-25 mL an hour. Due to persistent hyperkalemia and worsening renal function, the patient was started on hemodialysis on 07/10/2020. The potassium level improved post-hemodialysis. The patient also had significant metabolic acidosis and the patient was given bicarb infusion. Electrolytes are being monitored. The patient got dialyzed yesterday and this was his second hemodialysis. Nephrology is on the case. He is currently on Decadron 6 mg IV every 24 hours. His chest x-ray is showing patchy by the pulmonary infiltrates in lower lobes, slightly worsening in the chest x-ray findings on today's evaluation mainly in the peripheries and ET tube is in a good location. The patient remains on a mechanical ventilator assist control mode. He is on Nepro at 60 mL an hour. 07/13/2020, I'm seeing this patient for a follow-up. This is a case of a 59-year-old male patient with Covid 19 related pneumonia and acute kidney injury currently on hemodialysis. Worn-out, the patient is sedated and this morning the patient is currently on propofol running at 6 60 mcg/kg per minute and fentanyl is running at 1 mcg/kg/h and this is the same sedation it was being provided yesterday. The patient is on no paralytics for now. The patient is on a mechanical ventilator, on this morning's evaluation, he is on assist-control at the rate of 28 with a tidal volume of 450 and FiO2 of 50% and PEEP is 10. Blood gases from today showing a pH of 7.37 with a pCO2 of 47 and pO2 of 63. Chest x-ray from today is showing diffuse bilateral pulmonary infiltrates more so in the lower lobes bilaterally. ET tube is in a good location. Comparing this chest x-ray from yesterday, there is no major interval change in the findings are essentially stable. His peak airway pressures 28. His static pressures 24. The patient is is still on Decadron 6 mg IV every 24 hours. D- dimer today's at 13.3, his LDH level is at 1021 and the CRP is at 4.6. Note that his inflammatory markers essentially compatible to yesterday. His echoes at 13.7 with a hemoglobin of 9.2. Platelet count is 112. I took the patient off Agratoban and he was also placed on Eliquis at a dose of 5 mg by mouth twice a day. Noted the patient also is an acute kidney injury. The patient underwent dialysis and the spot he has taken 3 sessions of hemodialysis. He is producing urine output in the order of 20-30 mL an hour. His last session of hemodialysis was yesterday. In terms of his electrolytes, his BUN is at 80 with a creatinine of 3.5 and a sodium of 132 with a potassium of 4.4. He is currently on enteral feeding for dizziness support and is currently on Nepro at the rate of 50 mL an hour. He is currently off Rocephin. He is afebrile. He is requiring low-dose pressors were norepinephrine 30 dose of 0.03 mcg/kg per minute. Otherwise, no other significant events. He is afebrile. Sedation holiday was not done yesterday. IV fluids are running at 0.9 at the rate of 50 mL an hour. 07/14/2020, patient is being seen for follow-up. Sedated and still on a mechanical ventilator, probable resolving. 60 mcg/kg per minute and the patient is also on fentanyl at 1 mcg/kg/h. Adequately sedated. On a mechanical ventilator essentially vent settings being at tidal volume of 450 with an FiO2 of 50% and a PEEP of 10 and a rate of 28. These are essentially the same settings as yesterday. As far as blood gases, pO2 is at 79 with a pCO2 of 45 and a pH is at 7.35. He d-dimer is at 9.42 and the rest of the inflammatory markers show an LDH of 1062 which is stable compared to yesterday and a CRP of 87, slightly elevated compared to yesterday. His CPK is down to 231. His pro calcitonin level was at 0.58 and note that the patient has dialysis-dependent renal failure. As far as his creatinine, his creatinine today is at 3.97 with a mean of 96. He did not receive dialysis yesterday. His urine output is in order of 30-40 mL an hour and the fluid balance has been +1.1 L over the past 24 hours. His chest x-ray from today is showing lower lobe pulmonary infiltrates, essentially stable compared to yesterday. ET tube remains in excellent location. IV fluids are running at 20 cc an hour of normal saline. He is afebrile. He is tolerating his enteral feeding for nutritional support. Norepinephrine infusion which is running at 0.05 mcg/kg per minute. He remains on Decadron 6 mg IV every 24 , platelet count is stable at 121 and 11 avoiding heparin. Patient holiday yesterday was ultimately aborted as the patient became quite agitated after several hours without any meaningful neurological response. 07/15/2020, the patient is being seen for a follow-up. Sedated with propofol running at 60 mcg/kg per minute and fentanyl is at 1 mcg/kg/h and the level of sedation essentially the same as yesterday. Remains on a mechanical ventilator. He is an assist-control mode at the rate of 24 with a tidal volume of 450 and a PEEP of 8 with a FiO2 of 50%. He had a blood gas showing pH of 7.33 with a pCO2 of 46 and pO2 of 73. Chest x-ray is unchanged, probably slightly worse on the left in terms of that the patient is seeing on today's chest x-ray. ET tube remains in a good location. Inflammatory markers from today show a d-dimer of 9 with a LDH level of 1061 and a CRP of 78, comparable to yesterday. His pro calcitonin level was low. He got dialyzed yesterday. I attempted to wean down the PEEP to 6 and this was not successful and the patient desaturated in the P EEP was brought back up to 8 yesterday. Meanwhile, he is afebrile. He is producing urine output in the order of 20-30 mL an hour. He is on normal saline at the rate of 20 mL an hour. He remains on Decadron 6 mg IV to 24 hours. His platelet count is 132 which is essentially stable and improved compared to yesterday. In terms of pressors, the patient is currently on norepinephrine infusion at 0.04 mcg/kg per minute. I will today's condition essentially unchanged and his condition essentially the same as compared to yesterday 07/16/2020, remains on a mechanical ventilator on propofol at the rate of 60 mcg/kg per minute and fentanyl is at 2 mcg/kg/h. He remains off paralytics. At around 6:00 this morning, the patient had some oxygen desaturation. Based on that, I increased his FiO2 up to 60%. Currently is an assist-control mode rate of 28 with a tidal volume of 450 and a PEEP of 8 chest x-ray still showing diffuse bilateral pulmonary infiltrates left more than right. The blood gas shows a pH of 7.31 with a pCO2 of 45 and pO2 of 68. This was on FiO2 of 70%. Inflammatory markers show a d-dimer of 9.9 with a LDH level of 1103 and a CRP level of 62. The patient is on Decadron 6 mg IV every 24 hours. The patient is also on anticoagulation with Eliquis 2.5 mg by mouth twice a day. His platelet counts is 135. The chest x-ray findings are obviously worse and there is some worsening in the evaluation in the right lung compared to yesterday. Note that the patient did not get dialyzed yesterday. Today is a dialysis day for him. He is also on norepinephrine infusion running at 0.08 mcg/kg per minute. There is enough to maintain his blood pressure. He is receiving enteral feeding for discharge support and currently is on Nepro at a rate of 50 mL an hour which is currently at goal. No other significant events. Is adequately sedated for now. 07/17/2020, the patient is being seen for a follow-up. This morning he is on a combination of propofol and fentanyl running at 60 mics for propofol and 1 g for fentanyl. He was given a sedation holiday and she was able to tolerate initiated subsequently he decompensated and became hypoxic and he had to be placed back on sedation. Noted the patient became asynchronous. This morning, he is back on a mechanical ventilator mode at the rate of 28 with a tidal volume of 450 and her FiO2 is at 60% with a PEEP of 8. He underwent dialysis yesterday with a total of 2 liters of ultrafiltration. Note that he was able to tolerated dialysis without any major issues. He is on a minimal dose of norepinephrine infusion running at 0.06 mcg/kg per minute for blood pressure control. On today's evaluation, peak air pressures around 27. The blood gases from today shows a pH of 7.29 with a pCO2 of 40 and pO2 of 99 and this was on FiO2 of 60%. As mentioned, his PEEP is at 8. Chest x-ray still showing diffuse breath and pulmonary infiltrates unchanged without any major interval improvement or worsening. White cell count is at 50 with a hemoglobin of 8.2. Creatinine is at 3.4 and a urine output is in order of 30 mL an hour. No plans for hemodialysis today. He is receiving enteral feeding for nutritional support with Nepro at the rate of 50 mL an hour. He is stooling. Still sedation dependent. Unable to wean him off sedation because of a 6 and mean oxygen desaturations. I have approach the and the family with a possibility of ainsertion of a tracheostomy tube and a PEG tube for prolonged need of mechanical ventilation and failure for weaning. The patient has been intubated since 07/05/2020. The inflammatory markers from today shows an LDH level of 889, CRP is at 6 and the d-dimer is at 6.05. The patient has palpable pulses in his left upper extremity. She of his fingers are necrotic and the tip including the index, the platelet counts are stable and the patient is currently on Eliq uis 2.5 mg by mouth twice a day. Or 2020, the patient remains sedated with a combination of propofol and fentanyl running at 50 mcg/kg per minute for propofol and 1 mcg/kg per hour for fentanyl. He is sedated. In fact is deeply sedated. We are going to proceed with a sedation holiday on this patient today. He remains on a mechanical ventilator. He remains on a assist-control rate of 28, tidal volume of 450, FiO2 of 50% with a PEEP of 8. Attempts to wean the PEEP further failed and the patient became more hypoxic. As such, the patient is living At 8. This patient is a 7.26 with a pCO2 of 48 and pO2 of 71 today's blood gas. His chest x-ray showing stable bilateral pulmonary infiltrates essentially involving the lower lobes. ET tube is in a good location. Note that the patient is producing urine output in the order of 8200 mL an hour. His net fluid balance over the past 24 hours has been -83 mL. He has had a with a positive fluid balance for today. The findings on the case. The intent of the dialysis 3 times a week. His last dialysis was done on Sunday which is 2 days ago. His creatinine is up to 3.7 with a BUN of 84. Rest of the electrolytes are normal. Affect is running a lower sodium level of 1:30 with a potassium level of 4.1. Serum bicarbs at 20. In terms of his COVID-19 related pneumonia, the patient has a LDH level of 855, CRP level of 5.2 and his most recent d-dimer is at 5.4. He remains on steroids and he is on Decadron 6 mg IV every 24 hours. He did have a component of hit syndrome. This was related to heparin. He did receive Agratroban was ultimately discontinued once the patient's stated count picked up and it's platelet count is currently at 129. He does have necrotic fingers in his left upper extremity. Adequate pulses in the radial. No new vascular insults noted on today's examination. He is receiving enteral feeding for nutritional support and is currently on Nepro at the rate of 10 mL an hour. He is stooling. He is on Rocephin for strep in history of the blood cultures on 2 separate occasions. Otherwise, the blood cultures positive for coagulase-negative staph. Patient was reevaluated today on 07/19/2020, remains intubated and mechanically ventilated, he is off sedation and he is not showing any signs of neurological not responding to any stimuli. Patient is on assist control rate of 24th of volume 450 FiO2 50% and PEEP of 6. ABG showed a pO2 of 81 pCO2 41 pH of 7.31 patient is on enteral feeding. And he may undergo dialysis. We plan to have a tracheostomy and PEG tube placement in this patient, and he is basically a failure to wean. Today the sedation is placed on hold. Chest x-ray continues to show bilateral pulmonary infiltrates involving lower lobes. Endotracheal tube is in the proper position. Patient is making good urine, however his renal functioning seems to be getting worse. Electrolytes are normal. BUN is 91 creatinine 4.51 LDH is 893 liver enzymes are borderline elevated, C-reactive protein is 4.2 d-dimer 6.68. WBC count is 9.1 hemoglobin is 8.9 On 07/20/2020 patient seen in follow-up in intensive care unit, he was given daily traction of sedation yesterday, and his sedation was on hold for several hours and the patient never woke up over open his eyes or follow any commands, and as the day went on he started breathing fast, started desaturated and get agitated and was he was placed back on sedation on which she remains today, currently on Diprivan at 40 mics per kilo per minute, and fentanyl infusion at 1 mics per kilo per minute, and levo fed has been discontinued, he is on assist- control mode of ventilation with assist control rate of 24, tidal volumes of 4 50, FiO2 of 50% and PEEP of 6, this morning's blood gas shows pO2 of 92, pCO2 42, and pH is 7.32. He is in sinus mechanism, slightly tachycardic, his tube feedings are currently on hold in case of possibility of tracheostomy and PEG tube insertion however were still awaiting a response from his family on the decision in regards to proceeding with trach and PEG placement, today he is receiving hemodialysis treatment, and a 3 L in fluid was removed today. In terms of urine output he has been making urine in the order of 50-70 ML per hour, he remains on Lasix 80 mg twice daily, he remains on Rocephin for evidence of a beta-hemolytic strep in the sputum cultures, his follow-up sputum culture only showed Armida. History of resting comfortably in bed, he remains on IV dexamethasone 6 mg daily, has been off the levofed. Breasts labs have been reviewed, his white blood cell count is 8.1, hemoglobin is 8.1, his platelet count is 126, d-dimer is 13.3, sodium is 133, potassium 3.7, his renal function is relatively stable, with BUN of 82, and creatinine 4.51. These LDH is 792, CRP is 48. His had no acute events overnight, we spoke to his daughter yesterday in regards to patient's condition, and to discuss tracheostomy and PEG tube insertion, awaiting response from the family on their decision and the daughter indicated that patient had poor quality of life to start with and the were not sure if the workup and consent to the trach and PEG On 07/21/2000 patient seen in follow-up in the intensive care unit, yesterday he tolerated 11 hours of sedation holiday, and he was starting to follow simple commands, however is that day went on he was becoming more agitated and tachypneic, and he was placed back on sedation, currently on Diprivan at 40 mics per kilo per minute, and 0.9 at KVO, he remains intubated, on assist control mode of ventilation, with a rate of 24, Tylox 450, FiO2 of 50% and PEEP of 6, this morning's blood gases show pO2 133, pCO2 of 41, and pH is 7.38. Patient is resting comfortably, appears to be in no acute distress, he is not on any vasoactive drugs, no vasopressors, she is in sinus rhythm sinus tach with a rate of 90-106 BPM, hemodialysis treatment this morning, and attended have liters of fluid was taken off, his vital signs have been stable overnight, no fever or chills, lung sounds are diminished. She also remains on IV Lasix 80 mg twice da waylon, patient is producing urine in the order of 30-60 ML per hour, and she is in -4.1 L over the last 24 hours with additional -2.49 fluid balance since midnight last night. Chest x-ray shows interval improvement in bilateral airspace infiltrates particularly within the right upper lobe. Today's labs have been reviewed, showing white blood cell count 7.1, hemoglobin of 7.4, platelet count is 120, sodium is 130, potassium is 3.2, chloride is 104, CO2 of 23, BUN of 75 and creatinine of 4.01. Patient remains on Rocephin for beta-hemolytic strep in the sputum, repeat culture of the sputum showed only Armida. He is tolerating tube feedings which are on hold for tracheostomy and PEG tube placement which is scheduled for today. On 07/22/2020 patient seen in follow-up in intensive care unit, he remains sedated and trach to the ventilator, on assist-control mode of ventilation with a rate of 24, her lungs were 50, FiO2 50% and PEEP of 6, his blood gas shows pO2 of 169, pCO2 40, pH of 7.36, patient is currently on Diprivan at 55 mics per kilo per minute, he is on 0.9 normal saline at 10 ML per hour, Levophed that he is at 0.02 mics per kilo per minute. Patient is having hemodialysis treatment right now. Patient received tracheostomy and PEG tube yesterday. His hemodialysis access was switched to right subclavian approach. He still has a central line in his groin which will need to be switched to a PICC line. Today's chest x-ray showed bilateral multifocal and confluent opacities consistent with COVID-19 infection with no significant interval change. Vital signs have been stable, his sat 98% on the above mentioned settings, requiring small dose of Levafed. 2 feedings will be started sometime today, he is on Rocephin for evidence of 5 beta-hemolytic strep in the sputum, follow-up sputum culture only showed Armida albicans. She had no acute events overnight. He re leonila on Decadron 6 mg daily, he is Eliquis will be started tonight if it's okay with surgery. No other acute events overnight, and -2.4 L fluid balance over the last 24 hours. He does remains generally swollen. On 07/23/2020 patient seen in follow-up, in the intensive care unit, patient received tracheostomy and PEG tube insertion on 07/21/2020, he remains trached to the ventilator and is currently on assist control mode of ventilation with a rate of 24, tacrolimus 450, FiO2 45% and PEEP of 5, this morning's blood gas shows pO2 of 149, pCO2 of 43, and pH of 7.39, he was given a sedation holiday yesterday, however he did not wake up or start following commands, neurology completed a brain CT which showed decreased attenuation within the high right frontal lobe without cortical increased attenuation which could reflect petechial hemorrhage, patient is currently not on any anticoagulation, is Eliquis has been on hold since 07/19/2020 at 11:00 in the morning. His hemoglobin today 7.4, his platelet count is 115, his d-dimer is currently is 8.18 on this morning's labs. Patient is not on any aspirin, or Plavix or any other anticoagulants. Patient was resedated he is currently on 35 mics per kilo per minute of Diprivan, and 0.9 and is infusing at KVO, no other infusions. Hemodynamically he has remained stable, he is in sinus rhythm sinus tachycardia on the monitor, this morning his PEG tube became plugged when the crushed oral medications were being instilled through the PEG tube, surgery was notified, and the PEG tube was removed, NG tube will be inserted, however no tube feedings or oral medications are to be put down the NG tube at this point. Patient remains on Rocephin for evidence of beta-hemolytic strep in the sputum, yesterday his central line was discontinued and the tip was sent for culture and the culture is pending at this time, however overnight has been no fever, his vital signs have remained stable. He had hemodialysis on 07/21/2020 with removal of 2.5 L in fluids. Today's labs show sodium of 136, potassium 3.5, chloride is 104, CO2 is 22, BUN 54, and creatinine is 2.6, his renal profile is improving, and patient remains on IV Lasix 80 mg twice daily, he is producing urine in the order of 35-60 ML per hour. No other acute events overnight, neurology is following, and is to comment on the findings of the CT of the brain. Today's chest x-ray shows continued diffuse bilateral groundglass airspace disease/pulmonary edema, with continue small effusions with adjacent atelectasis. LDH is down to 640, and CRP is 5.6 On 07/24/2020 patient seen in follow-up in the intensive care unit, he remains trached to the ventilator on assist control mode of ventilation with a rate of 24, tidal is 450, FiO2 of 45% and PEEP of 5, this morning's blood gas shows pO2 of 150; pCO2 40, pH of 7.4, and FiO2 was dropped down to 40% based on the above mentioned blood gases, IV fluids are 0.9 normal saline at a rate of 10 ML per hour, and TPN is infusing at 30 ML per hour, not on any vasopressor support, and patient has been off sedation since yesterday morning, were told by the nursing staff that at times he was noted to be attempting to wiggle toes on command. Remains quite lethargic right now, she is not opening eyes to voice, he is not following commands, he is very weak. Chest x-ray today shows diffuse bilateral infiltrates. Tracheostomy hemodialysis catheter appear to be in appropriate positions, NG tube has been inserted yesterday, and peg tube was discontinued, and surgeries plan on replacing the PEG tube on Sunday. Neurology is following, patient has no signs of obvious seizure activity, he does have cough and a gag reflex. But remains very obtunded, today's labs have been reviewed, showing white blood cell count of 4.1, hemoglobin of 7.4, electrolytes were within normal limits, BUN is 68, and creatinine is 3.54. Patient remains on IV Lasix 80 mg twice daily, is in -856 over the last 24 hours, he is tolerating tube feedings, no diarrhea noted. Yesterday his d-dimer came back at 8.18. Patient remains off Eliquis, and he received 300 mg of rectal aspirin per neurology. His most recent brain CT showed previously noted area of subarachnoid hemorrhage associated with abnormal hypodensity posterior laterally in the right frontal lobe was again noted, not significantly changed. Neurology thinks patient has suffered acute ischemic stroke with a small right frontal region with mild petechial hemorrhage in the cortical ribbon On 07/26/2020 patient seen in follow-up in the intensive care unit, he remains trached to the ventilator, assist control mode of ventilation with a rate of 20 with tidal volumes were 450, FiO2 of 40% and PEEP of 5, displays blood gas shows pO2 of 122, pCO2 of 43, and pH of 7.42. He is 1.9 normal seen at 10 mL an hour, TPN is a 55 ML per hour, Cleviprex is a 7 mg per hour. He has been off Diprivan and for several days now, he just has a morphine sulfate for discomfort on as needed basis, he is waking up to touch and sometimes he follows simple commands, but he is extremely weak and unable to squeeze with his hands on command. His tube feedings have been on hold and he is supposed to have a PEG tube reinserted today, NG tube is in place to low intermittent suction a total of 450 ML of gastric drainage in the last 24 hours, urine output has been in the order of 100-200 ML per hour. He remains on IV Lasix at 80 mg every 12 hours, he is maintaining negative fluid balance of 1.5 L over the last 24 hours. Has been afebrile. Today's chest x-ray shows persistent but improving infiltrates throughout both lung palafox. Today's labs show white blood cell count of 1.1, hemoglobin of 8.4, d-dimer is 11.69, patient has remained off anticoagulation for the PEG tube reinsertion today, sodium is 142, potassium is 4.2, chloride is 102, BUN is 90, creatinine is 3.54, AST is 72, ALT is 82. He is on IV Rocephin for evidence of beta-hemolytic strep in the sputum, and central line catheter tip was positive for Armida albicans. Patient has had no fever or chills. Partially patient has suffered an acute stroke with small subarachnoid hemorrhage, cardiology has been consulted for possibility if AGNIESZKA, which cardiology felt was not needed at this time. No other acute events overnight, no fever or chills, patient has not been able to receive his oral medications for high blood pressure, and has required Cleviprex. On 07/27/2020 patient seen in follow-up in intensive care unit, patient is trached to the ventilator with assist control mode of ventilation with a rate of 24, tidal volume was 450, FiO2 30% and PEEP of 5, no blood gases were done today, overnight he developed a fever with a temp of 101.9F, and today's blood work is down trending white count, neutropenia white blood cell count is 0.6, hemoglobin is 8.2, platelet count is 148, and there is a suspicion of p ossibility of fungal infection, and patient was started on Eraxis yesterday. New blood cultures and urine cultures have been sent, BMP shows a sodium of 140, potassium is 5.2, BUN of 103, and creatinine of 3.66, his inflammatory markers have been reviewed, and LDH is now within normal limits at 559, and CRP is 14.9. His central line catheter tip was positive for Armida albicans, his sputum back on 07/08/2020 was positive for beta-hemolytic strep. Urine culture is currently pending, ID service is following. Patient had a new PEG tube placed on 07/26/2020 he continues on TPN for nutritional support, anticipate restarting his tube feedings this afternoon if cleared by surgery. On 07/28/2020 patient seen in follow-up in the intensive care unit. Remains trached to the ventilator, on assist control mode of ventilation with a rate of 24, tacrolimus 450, FiO2 30%, and PEEP of 5, no new blood gases today. Today's chest x-ray showing stable portable chest, and no change in bibasilar opacities. Patient has remained off sedation, and he started to follow some simple commands, however his severe generally weak, he is unable to squeeze with his hands, he opens eyes to voice, withdraws from painful stimuli. today's labs reviewed showing white blood cell, 0.2, hemoglobin is 6.5, platelet count is 108, patient is pancytopenic, 1 unit of blood will be transfused today, sodium is 144, potassium is 4.4, chloride is 108, BUN of 119, creatinine is 3.9. No obvious source of bleeding at this time. Cultures have been sent, patient is currently on Eraxis for Armida albicans on the central line catheter tip, sputum. Patient remains on Rocephin for streptococcal pneumonia. He was febr ile in the last 24 hours with a T-max of 101.3F. He continues on IV Lasix, he is making urine in order of 100-120 ML per hour. Is on Nepro for nutritional support at 36 with a goal of 36 On 07/29/2020 patient seen in follow-up in the intensive care unit. Patient remains trached to the ventilator, with assist control mode of ventilation rate of 24, Tylenol is 450, FiO2 of 30%, and PEEP of 5. Patient's blood gas shows pO2 of 94, pCO2 of 39, and pH of 7.43, he is on 0.9 normal saline at 10 in the per hour, no other drips, and he is receiving nutritional support in the form of Nepro at 36 with a goal of 36 and 60 mL of water flushes every 4 hours per nephrology. He remains lethargic, generally weak. Per nursing staff patient is at times squeezing her finger on command. Brain CT was repeated showing evolving subacute hemorrhagic infarct in the right frontal lobe with no significant interval change, no new acute intracranial hemorrhage or midline shift. We restarted the patient on prophylactic anticoagulation in the form of Lovenox yesterday, today's labs have been reviewed, d-dimer is 3.83, white count is 0.2, hemoglobin is 7.0, platelet count is 142, sodium is 148, potassium is 3.8, and patient's renal function has worsened, and the Lasix is now on hold, free water flushes were increased by nephrology. Patient continues on Eraxis, and urine culture from 07/26/2020 showed Armida albicans, repeat urine culture has been sent, blood culture from 07/26/2020 showed no growth, final culture is pending. he has been afebrile. Rocephin has been discontinued, infectious dise ase has been consulted On 07/31/2020 patient seen in follow-up in intensive care unit, he opens eyes to voice, he turns had to voice, but unable to squeeze hands on command and follow command. He remains very generally weak, and continues to be somewhat encephalopathic although his level of consciousness has improved. He remains trached to the ventilator, with assist control mode of ventilation and the rate of 24, tidal vital was 450, FiO2 of 30% and PEEP of 5, this morning's blood gas shows pO2 of 104, pCO2 37, and pH of 7.44. This was done on FiO2 of 30%, yesterday he tolerated per support trial for about 5 hours, and was flipped back to assist control mode of ventilation related to respiratory fatigue. This morning he is maintaining O2 saturations at or above 96-98%, appears very c omfortable, and we will proceed with another trial of pressure-support ventilation. He is currently on 0.9 normal saline at 5 ML per hour, no other drips, he is not on any sedatives or narcotics, he is currently on Eraxis, and cefepime. ID service is following. His urine culture was positive for Armida albicans, and he had previously had beta-hemolytic streptococcus in his sputum. Repeat sputum culture was sent on 07/29/2020, and preliminary Gram stain shows many gram-positive cocci, moderate gram-positive bacilli, and a few gram- negative bacilli. Tracheostomy site was also cultured, and preliminary Gram stain shows many gram-positive cocci, many gram-positive bacilli, and many gram-negative bacilli. Today's labs have been reviewed, white blood cell, 0.2, hemoglobin is 7.0, platelet count is 89, his sodium remains elevated at 148, and nephrology is following and patient is receiving tube feedings in the form of Nepro at 36 ML per hour, with 75 ML of free water flushes every 1 hour. His chloride is 112, BUN is 152, and creatinine is 4.07. His renal function slightly worse than yesterday, his liver enzymes show improvement in his AST, slightly increased ALT and relatively stable alkaline phosphatase, his pro- calcitonin level from yesterday was at 1.39. His urinalysis from 07/28/2020 shows possibility of urinary tract infection. His urine output is in the order of 75-125 ML per hour, has been nonoliguric, no diarrhea. He is tolerating tube feedings. Does have some generalized swelling. We restarted patient's prophylactic Lovenox with hematology clearance, hematology is following and patient is currently on Zarxio On 08/01/2020 patient seen in follow-up in intensive care unit, yesterday he'll tolerated 30 minutes of pressure-support according to the nursing staff, became fatigued, and placed on assist-control mode of ventilation on which she remains this morning, with a rate of 24, tidal volume is 450, FiO2 of 30% and PEEP of 5. Patient is awake and alert, he closed his eyes on command, he has however very weak and unable to squeeze hands on command, and unable to wiggle toes. He is currently on D5W at a rate of 75 ML per hour, no other drips, he is on nutritional support in the form of Nepro at 36 with a goal of 36 and free water flushes of 75 ML per hour per nephrology. Today's blood gas has been reviewed showing pO2 of 121, pCO2 of 35, and pH of 7.44, this was done on FiO2 of 30%, there is the blood work has been reviewed showing white blood cell, 0.3, hemoglobin of 7.4, platelet count is 58, sodium is 145, potassium 4.0, chloride is 111, CO2 is 21, BUN of 156, creatinine is 3.46, his liver enzymes continue to worsen. His last pro-calcitonin from 07/30/2020 remains elevated at 1.39. Patient has been on Eraxis and cefepime, ID service is following, last urinalysis from 07/20/2020 showed urinary tract infection, urine cultures are positive for Armida. Patient continues on Lovenox at 30 mg daily, he is also on Zarxio for pancytopenia On 08/04/2000 patient seen in follow-up in the intensive care unit, he remains trached the ventilator, on VC plus mode of admission, with a rate of 24, tidal volume 500, FiO2 of 25% and PEEP of 5. No new blood gas today, today's chest x- ray shows stable appearance of patchy bibasilar infiltrates. Patient is currently on 0.9 normal saline at a rate of 20 ML per hour, and Precedex was started yesterday and is currently infusing a rate of 0.7 mics per kilo per hour. Receiving nutritional support in the form of Nepro at 36 with a goal of 36 and free water flushes of 75 ML per hour per nephrology recommendations, today's labs have been reviewed including white blood cell count up to 7.9, hemoglobin is 7.2, platelet count is 15, patient received 1 unit of platelets yesterday, serum sodium today is 146, potassium is 3.9, chloride is 114, CO2 is 19, B1 is 165, creatinine is 3.15. His AST is improving and is down to 78, ALT is 191, alkaline phosphatase is 206. He has completed 7 days of the Eraxis. And he currently remains on Flagyl per ID service recommendations, his neck wound cultures are showing anaerobic gram-negative bacilli, final culture is pending. he completed 7 days of the Eraxis for candidal urinary tract infection. Continues to be febrile with a temp of 10 1F. Patient is tachycardic in sinus mechanism, the rate of 120 BPM. Patient is less responsive on today's exam, however he is tachypneic, and he is tracheostomy is positional and As noted to be leaking. But not significantly losing volume. His Lasix was placed on hold, his urine output significantly declined in the order of 30-50 ML per hour, he appears to be very edematous in general, and today he will have a hemodialysis treatment Objective - Vital Signs Vital signs: Vital Signs Temp 101 F H 08/04/20 04:00 Pulse 122 H 08/04/20 07:00 Resp 35 H 08/04/20 07:00 BP 111/78 08/04/20 07:00 Pulse Ox 93 L 08/04/20 07:00 Intake & Output 08/03/20 08/04/20 08/04/20 18:59 06:59 18:59 Intake Total 935.83 1380.000 134.749 Output Total 615 805 30 Balance 320.83 575.000 104.749 Weight 101.8 kg Intake: IV 10 110 10 0.9 Normal Saline 10 110 10 Intake, IV Titration 260.83 100.000 84.749 Amount Dexmedetomidine/0.9% NaCl 60.83 100.000 84.749 (Pmx) 400 mcg In Empty Bag 1 bag @ Titrate IV . Q0M PRAFUL Rx#:[id number] Sodium Chloride 0.45% 1, 200 000 ml @ 50 mls/hr IV . Q20H PRAFUL Rx#:[id number] Tube Feeding 240 420 40 Blood Product 350 Platelet Pheresis Pas 350 Psoralen Unit [id number] Other 75 750 Output: Urine 615 805 30 Other: Voiding Method Indwelling Catheter Indwelling Catheter ABP, PAP, CO, CI - Last Documented Arterial Blood Pressure 118/64 - Exam GENERAL EXAM: Encephalopathic morbidly obese 51-year-old white male, trached to the ventilator, on volume-control mode of ventilation with a 30% PEEP of 5, lethargic, encephalopathic, does not open eyes to voice today, he is on Precedex at 0.7 mics per kilo per minute generalized weakness comfortable in no apparent distress. HEAD: Normocephalic/atraumatic. EYES: Normal reaction of pupils, equal size. Conjunctiva pink, sclera white. NOSE: Clear with pink turbinates. THROAT: No erythema or exudates. NECK: No masses, no JVD, no thyroid enlargement, no adenopathy. Midline tracheostomy connected to the ventilator CHEST: No chest wall deformity. Symmetrical expansion. Right subclavian permacath in place and patient is receiving hemodialysis LUNGS: Equal air entry with no crackles, wheeze, rhonchi or dullness. CVS: Regular rate and rhythm, normal S1 and S2, no gallops, no murmurs, no rubs ABDOMEN: Soft, nontender. No hepatosplenomegaly, normal bowel sounds, no guarding or rigidity. PEG tube in place EXTREMITIES: No clubbing, generalized edema no cyanosis, 2+ pulses and upper and lower extremities. Patient has black fingertips on his left hand MUSCULOSKELETAL: Muscle strength and tone normal. Right groin temporary hemodialysis catheter in place SPINE: No scoliosis or deformity SKIN: No rashes CENTRAL NERVOUS SYSTEM: Encephalopathic, trached to the ventilator No focal deficits, tone is normal in all 4 extremities. - Labs CBC & Chem 7: 08/04/20 02:51 08/04/20 02:51 Labs: Abnormal Lab Results - Last 24 Hours (Table) 08/03/20 08/03/20 08/03/20 Range/Units 11:45 17:39 23:54 RBC (4.30-5.90) m/uL Hgb (13.0-17.5) gm/dL Hct (39.0-53.0) % RDW (11.5-15.5) % Plt Count (150-450) k/uL Metamyelocytes # (Man) (0) k/uL Myelocytes # (Manual) (0) k/uL Sodium (137-145) mmol/L Chloride (98-107) mmol/L Carbon Dioxide (22-30) mmol/L BUN (9-20) mg/dL Creatinine (0.66-1.25) mg/dL Glucose (74-99) mg/dL POC Glucose (mg/dL) 118 H 127 H 123 H (75-99) mg/dL Total Bilirubin (0.2-1.3) mg/dL AST (17-59) U/L ALT (4-49) U/L Alkaline Phosphatase (38-126) U/L Total Protein (6.3-8.2) g/dL Albumin (3.5-5.0) g/dL 08/04/20 08/04/20 08/04/20 Range/Units 02:51 02:51 06:30 RBC 2.50 L (4.30-5.90) m/uL Hgb 7.2 L (13.0-17.5) gm/dL Hct 23.2 L (39.0-53.0) % RDW 16.6 H (11.5-15.5) % Plt Count 15 L* (150-450) k/uL Metamyelocytes # (Man) 0.71 H (0) k/uL Myelocytes # (Manual) 0.08 H (0) k/uL Sodium 146 H (137-145) mmol/L Chloride 114 H (98-107) mmol/L Carbon Dioxide 19 L (22-30) mmol/L BUN 165 H* (9-20) mg/dL Creatinine 3.15 H (0.66-1.25) mg/dL Glucose 119 H (74-99) mg/dL POC Glucose (mg/dL) 143 H (75-99) mg/dL Total Bilirubin 2.3 H (0.2-1.3) mg/dL AST 78 H (17-59) U/L ALT 191 H (4-49) U/L Alkaline Phosphatase 206 H (38-126) U/L Total Protein 4.5 L (6.3-8.2) g/dL Albumin 2.3 L (3.5-5.0) g/dL Microbiology - Last 24 Hours (Table) 07/28/20 11:45 Blood Culture - Final Blood No Growth after 144 hours Assessment and Plan Plan: Assessment: #1. Acute hypoxic respiratory failure secondary to COVID-19 pneumonia. Patient received toci and convalescent plasma., Patient is status post tracheostomy and PEG tube placement on 07/21/2020. #2. Neutropenia, possibly related to abscess, improved #3. Acute ischemic stroke, in right frontal region with mild petechial hemorrhage in the cortical ribbon. Most recent CAT scan from all 08/03/2020 shows evolving subacute hemorrhagic infarct in the right frontal lobe with no significant interval change #4. Acute kidney injury requiring dialysis, worsening #5. Altered mental status, related to toxic metabolic encephalopathy, severe, related to multiple organ dysfunction #6. Possible petechial hemorrhage within the right frontal lobe, seen on the CT of the brain, neurology is following #7. Severe metabolic acidosis, improved and resolved after dialysis. #8. Hyperkalemia secondary to above, improved with hemodialysis #9. Benign essential hypertension. #10. Superficial vein thromboses and left cephalic vein and left basilic vein #11. Heparin-induced thrombocytopenia, patient was on Argatroban and Eliquis which are on hold right now #12. History of obstructive sleep apnea syndrome #13. Morbid obesity #14. Increased d-dimer related to COVID-19, patient was started on Eliquis which will be restarted after his surgical procedures #15. Plugged PEG tube, status post PEG tube revision on 07/26/2020 #16. Pancytopenia, likely related to sepsis, hematology is following, on Zarxio #17. Critical illness polyneuropathy, severe generalized weakness #18. Hypernatremia, diuretics are on hold Plan: Diuretics remain on hold, Nephrology is planning on dialysis today Discussed case with ID service and Eraxis this will be discontinued Cultures pending, will await final results Continues to be febrile No pressure-support trials today Overall seems to be declining Prognosis is poor, patient's CODE STATUS needs to be discussed with the family I performed a history & physical examination of the patient and discussed their management with my nurse practitioner, Nelia Conley. I reviewed the nurse practitioner's note and agree with the documented findings and plan of care. Lung sounds are positive for diminished breath sounds The findings and the impression was discussed with the patient. I attest to the documentation by the nurse practitioner. Time with Patient: Greater than 30
[2020-08-04] MEDS: SODIUM CHLORIDE 0.45% 1,000 ML IV SCH (10:27)
[2020-08-04 11:28] LABS: Glucose,Whole Blood 131 mg/dL (75-99)
[2020-08-04] MEDS: DARBEPOETIN ALFA 40 MCG/0.4 ML SYRINGE SQ SCH (11:58)
[2020-08-04 12:49] LABS: INR 1.2 (<1.2); Partial Thromboplastin Time 23.7 sec (22.0-30.0); Prothrombin Time 12.3 sec (9.0-12.0)
--- NOTE | 2020-08-04 13:53 | P.PN ---
Subjective Progress Note Date: 08/04/20 CHIEF COMPLAINT: Shortness of breath HISTORY OF PRESENT ILLNESS: Patient currently in the ICU and on mechanical ventilation. He has been on the vent since 07/05/2020. He has acute hypoxic respiratory failure due to COVID-19 pneumonia. Patient is status post tracheostomy and PEG tube placement on 07/21/20. However, patient's PEG tube did get plugged. He is now status post PEG tube replacement on 07/26/2020. He is tolerating tube feedings. Patient has infection at tracheostomy site and is followed by ID. his tracheostomy continues to have mildly. But not significantly losing volume. He is getting hemodialysis this morning. T-max 101 WBC 7.9 hemoglobin platelets 15 PHYSICAL EXAM: VITAL SIGNS: Reviewed. GENERAL: Well-developed in no acute distress. HEENT: Head is atraumatic, normocephalic. Tracheostomy site with purulent drainage ABDOMEN: Soft. Nondistended. Nontender. PEG tube site clean dry and intact NEUROLOGIC: Intubated ASSESSMENT: 1. Acute hypoxic respiratory failure secondary to acute COVID-19 pneumonia with prolonged mechanical ventilation. Status post tracheostomy placement 2. Severe Protein calorie malnutrition status post PEG tube placement 3. Infection at tracheostomy site PLAN: -Continue PEG tube feedings -Continue ICU management -Continue supportive care -Antibiotics per ID -Continue to monitor tracheostomy leak Physician Compliance Administrator note has been reviewed by physician. Signing provider agrees with the documented findings, assessment, and plan of care. Objective - Vital Signs Vital signs: Vital Signs Temp 99.0 F 08/04/20 13:10 Pulse 111 H 08/04/20 13:10 Resp 30 H 08/04/20 13:10 BP 96/67 08/04/20 13:10 Pulse Ox 94 L 08/04/20 11:00 Intake & Output 08/03/20 08/04/20 08/04/20 18:59 06:59 18:59 Intake Total 935.83 8523.842 3264.790 Output Total 001 200 9728 Balance 320.83 575.000 -252.210 Weight 101.8 kg 101.8 kg Intake: IV 10 110 70 0.9 Normal Saline 10 110 70 Intake, IV Titration 260.83 100.000 407.790 Amount Anidulafungin 100 mg In 100 Sodium Chloride 0.9% 100 ml @ 84 mls/hr IVPB DAILY PRAFUL Rx#:[id number] Dexmedetomidine/0.9% NaCl 60.83 100.000 84.749 (Pmx) 400 mcg In Empty Bag 1 bag @ Titrate IV . Q0M PRAFUL Rx#:[id number] Dexmedetomidine/0.9% NaCl 73.041 (Pmx) 400 mcg In Empty Bag 1 bag @ Titrate IV . Q0M PRAFUL Rx#:[id number] Sodium Chloride 0.45% 1, 200 150 000 ml @ 50 mls/hr IV . Q20H PRAFUL Rx#:[id number] Tube Feeding 240 420 320 Blood Product 350 Platelet Pheresis Pas 350 Psoralen Unit [id number] Other 75 750 480 Output: Urine 615 805 530 Hemodialysis 1000 Other: Voiding Method Indwelling Catheter Indwelling Catheter Indwelling Catheter ABP, PAP, CO, CI - Last Documented Arterial Blood Pressure 118/64 - Labs CBC & Chem 7: 08/04/20 02:51 08/04/20 02:51 Labs: Abnormal Lab Results - Last 24 Hours (Table) 08/03/20 08/03/20 08/04/20 Range/Units 17:39 23:54 02:51 RBC 2.50 L (4.30-5.90) m/uL Hgb 7.2 L (13.0-17.5) gm/dL Hct 23.2 L (39.0-53.0) % RDW 16.6 H (11.5-15.5) % Plt Count 15 L* (150-450) k/uL Metamyelocytes # (Man) 0.71 H (0) k/uL Myelocytes # (Manual) 0.08 H (0) k/uL PT (9.0-12.0) sec INR (<1.2) Fibrinogen (200-500) mg/dL Sodium (137-145) mmol/L Chloride (98-107) mmol/L Carbon Dioxide (22-30) mmol/L BUN (9-20) mg/dL Creatinine (0.66-1.25) mg/dL Glucose (74-99) mg/dL POC Glucose (mg/dL) 127 H 123 H (75-99) mg/dL Total Bilirubin (0.2-1.3) mg/dL AST (17-59) U/L ALT (4-49) U/L Alkaline Phosphatase (38-126) U/L Total Protein (6.3-8.2) g/dL Albumin (3.5-5.0) g/dL Coronavirus (PCR) (Not Detectd) 08/04/20 08/04/20 08/04/20 Range/Units 02:51 06:30 11:27 RBC (4.30-5.90) m/uL Hgb (13.0-17.5) gm/dL Hct (39.0-53.0) % RDW (11.5-15.5) % Plt Count (150-450) k/uL Metamyelocytes # (Man) (0) k/uL Myelocytes # (Manual) (0) k/uL PT (9.0-12.0) sec INR (<1.2) Fibrinogen (200-500) mg/dL Sodium 146 H (137-145) mmol/L Chloride 114 H (98-107) mmol/L Carbon Dioxide 19 L (22-30) mmol/L BUN 165 H* (9-20) mg/dL Creatinine 3.15 H (0.66-1.25) mg/dL Glucose 119 H (74-99) mg/dL POC Glucose (mg/dL) 143 H 131 H (75-99) mg/dL Total Bilirubin 2.3 H (0.2-1.3) mg/dL AST 78 H (17-59) U/L ALT 191 H (4-49) U/L Alkaline Phosphatase 206 H (38-126) U/L Total Protein 4.5 L (6.3-8.2) g/dL Albumin 2.3 L (3.5-5.0) g/dL Coronavirus (PCR) (Not Detectd) 08/04/20 08/04/20 Range/Units 12:00 12:10 RBC (4.30-5.90) m/uL Hgb (13.0-17.5) gm/dL Hct (39.0-53.0) % RDW (11.5-15.5) % Plt Count (150-450) k/uL Metamyelocytes # (Man) (0) k/uL Myelocytes # (Manual) (0) k/uL PT 12.3 H (9.0-12.0) sec INR 1.2 H (<1.2) Fibrinogen 748 H (200-500) mg/dL Sodium (137-145) mmol/L Chloride (98-107) mmol/L Carbon Dioxide (22-30) mmol/L BUN (9-20) mg/dL Creatinine (0.66-1.25) mg/dL Glucose (74-99) mg/dL POC Glucose (mg/dL) (75-99) mg/dL Total Bilirubin (0.2-1.3) mg/dL AST (17-59) U/L ALT (4-49) U/L Alkaline Phosphatase (38-126) U/L Total Protein (6.3-8.2) g/dL Albumin (3.5-5.0) g/dL Coronavirus (PCR) Detected A (Not Detectd) Microbiology - Last 24 Hours (Table) 07/28/20 11:45 Blood Culture - Final Blood No Growth after 144 hours
[2020-08-04] MEDS: NOREPINEPHRINE 8 MG in SODIUM CHLORIDE 0.9% 250 ML IV SCH (13:56)
--- NOTE | 2020-08-04 14:06 | PN ---
PROGRESS NOTE The patient is seen for followup for acute kidney injury. He remains on the vent. The patient's BUN has been significantly elevated and it is up to 165 today. Urine output however is maintain about 75-50 mL an hour. The patient's mentation has been poor and he has been without sedation with no significant improvement in mentation. Brain CT was negative and the plan is to proceed with dialysis to assess if there will be any improvement in mental status post dialysis given the significantly elevated BUN and creatinine. PHYSICAL EXAMINATION: On examination, patient's vital signs are reviewed. Blood pressure is 136/90, heart rate about 120 per minute. He is afebrile. LABS: Labs are reviewed. Hemoglobin 7.2, sodium 146, potassium 3.9, chloride 114, CO2 is 19, BUN 165, serum creatinine 3.15. ASSESSMENT: 1. Acute kidney injury initially started on dialysis earlier on but dialysis was held as renal function had improved. Last dialysis was on 07/22/2020. The however, has an IJ PermCath and will proceed on hemodialysis again today. 2. Acute hypoxic respiratory failure secondary to COVID pneumonia maintained on the vent, status post trach and PEG. 3. Encephalopathy with no improvement in mentation post cessation of sedation. Possible uremia. Reassess after 2-3 consecutive hemodialysis treatments. 4. Heparin-induced thrombocytopenia, status post argatroban and Eliquis. 5. Acute ischemic stroke in the right frontal region. PLAN: Proceed with dialysis today and then again in a.m. MMODL / IJN: [id number] /
--- NOTE | 2020-08-04 14:30 | P.PN ---
Subjective Progress Note Date: 08/04/20 Principal diagnosis: Covid pneumonia. Pancytopenia Physical examination of the patient deferred due to covid pneumonia, pt was visualized comfortably. Case reviewed with RN. Objective - Vital Signs Vital signs: Vital Signs Temp 99.0 F 08/04/20 13:10 Pulse 107 H 08/04/20 13:40 Resp 21 08/04/20 13:40 BP 69/46 08/04/20 13:40 Pulse Ox 91 L 08/04/20 13:40 Intake & Output 08/03/20 08/04/20 08/04/20 18:59 06:59 18:59 Intake Total 935.83 1479.536 1156.790 Output Total 498 146 1353 Balance 320.83 575.000 -212.210 Weight 101.8 kg 101.8 kg Intake: IV 10 110 70 0.9 Normal Saline 10 110 70 Intake, IV Titration 260.83 100.000 407.790 Amount Anidulafungin 100 mg In 100 Sodium Chloride 0.9% 100 ml @ 84 mls/hr IVPB DAILY [facility] Rx#:[id number] Dexmedetomidine/0.9% NaCl 60.83 100.000 84.749 (Pmx) 400 mcg In Empty Bag 1 bag @ Titrate IV . Q0M [facility] Rx#:[id number] Dexmedetomidine/0.9% NaCl 73.041 (Pmx) 400 mcg In Empty Bag 1 bag @ Titrate IV . Q0M [facility] Rx#:[id number] Sodium Chloride 0.45% 1, 200 150 000 ml @ 50 mls/hr IV . Q20H [facility] Rx#:[id number] Tube Feeding 240 420 360 Blood Product 350 Platelet Pheresis Pas 350 Psoralen Unit [id number] Other 75 750 480 Output: Urine 615 805 530 Hemodialysis 1000 Other: Voiding Method Indwelling Catheter Indwelling Catheter Indwelling Catheter ABP, PAP, CO, CI - Last Documented Arterial Blood Pressure 118/64 - Constitutional General appearance: Present: mild distress - Neurologic Neurologic: Absent: CNII-XII intact, focal deficits - Musculoskeletal Musculoskeletal: Absent: gait normal, generalized weakness, strength equal b ilaterally, right sided weakness, left sided weakness - Psychiatric Psychiatric: Absent: A&O x's 3, appropriate affect, intact judgment & insight - Allied health notes Allied health notes reviewed: nursing - Labs CBC & Chem 7: 08/04/20 02:51 08/04/20 02:51 Labs: Abnormal Lab Results - Last 24 Hours (Table) 08/03/20 08/03/20 08/04/20 Range/Units 17:39 23:54 02:51 RBC 2.50 L (4.30-5.90) m/uL Hgb 7.2 L (13.0-17.5) gm/dL Hct 23.2 L (39.0-53.0) % RDW 16.6 H (11.5-15.5) % Plt Count 15 L* (150-450) k/uL Metamyelocytes # (Man) 0.71 H (0) k/uL Myelocytes # (Manual) 0.08 H (0) k/uL PT (9.0-12.0) sec INR (<1.2) Fibrinogen (200-500) mg/dL Sodium (137-145) mmol/L Chloride (98-107) mmol/L Carbon Dioxide (22-30) mmol/L BUN (9-20) mg/dL Creatinine (0.66-1.25) mg/dL Glucose (74-99) mg/dL POC Glucose (mg/dL) 127 H 123 H (75-99) mg/dL Total Bilirubin (0.2-1.3) mg/dL AST (17-59) U/L ALT (4-49) U/L Alkaline Phosphatase (38-126) U/L Total Protein (6.3-8.2) g/dL Albumin (3.5-5.0) g/dL Coronavirus (PCR) (Not Detectd) 08/04/20 08/04/20 08/04/20 Range/Units 02:51 06:30 11:27 RBC (4.30-5.90) m/uL Hgb (13.0-17.5) gm/dL Hct (39.0-53.0) % RDW (11.5-15.5) % Plt Count (150-450) k/uL Metamyelocytes # (Man) (0) k/uL Myelocytes # (Manual) (0) k/uL PT (9.0-12.0) sec INR (<1.2) Fibrinogen (200-500) mg/dL Sodium 146 H (137-145) mmol/L Chloride 114 H (98-107) mmol/L Carbon Dioxide 19 L (22-30) mmol/L BUN 165 H* (9-20) mg/dL Creatinine 3.15 H (0.66-1.25) mg/dL Glucose 119 H (74-99) mg/dL POC Glucose (mg/dL) 143 H 131 H (75-99) mg/dL Total Bilirubin 2.3 H (0.2-1.3) mg/dL AST 78 H (17-59) U/L ALT 191 H (4-49) U/L Alkaline Phosphatase 206 H (38-126) U/L Total Protein 4.5 L (6.3-8.2) g/dL Albumin 2.3 L (3.5-5.0) g/dL Coronavirus (PCR) (Not Detectd) 08/04/20 08/04/20 Range/Units 12:00 12:10 RBC (4.30-5.90) m/uL Hgb (13.0-17.5) gm/dL Hct (39.0-53.0) % RDW (11.5-15.5) % Plt Count (150-450) k/uL Metamyelocytes # (Man) (0) k/uL Myelocytes # (Manual) (0) k/uL PT 12.3 H (9.0-12.0) sec INR 1.2 H (<1.2) Fibrinogen 748 H (200-500) mg/dL Sodium (137-145) mmol/L Chloride (98-107) mmol/L Carbon Dioxide (22-30) mmol/L BUN (9-20) mg/dL Creatinine (0.66-1.25) mg/dL Glucose (74-99) mg/dL POC Glucose (mg/dL) (75-99) mg/dL Total Bilirubin (0.2-1.3) mg/dL AST (17-59) U/L ALT (4-49) U/L Alkaline Phosphatase (38-126) U/L Total Protein (6.3-8.2) g/dL Albumin (3.5-5.0) g/dL Coronavirus (PCR) Detected A (Not Detectd) Microbiology - Last 24 Hours (Table) 07/28/20 11:45 Blood Culture - Final Blood No Growth after 144 hours Assessment and Plan (1) Pancytopenia Narrative/Plan: WBC/ANC adequate-GCSF was discontinued previously. Hemoglobin 7.2. Patient can be transfused if he is felt to be too symptomatic otherwise, transfuse for hemoglobin less than 7. Patient's platelets today are 15,000. Patient has a superficial thrombosis, also recent hemorrhagic stroke. He is not a candidate for anticoagulation at this time. Hit antibody was negative. Transfuse for platelets less than 10,000 or if patient is symptomatic. 300mg asa rectal was stopped previously for low plt. Coags/fibrinogen cont to be checked Cont CBC daily Pancytopenia workup is not going to be helpful in this acute case. Pending stability of the patient. Continue to monitor labs daily. Supportive care and treatment of underlying causes continues. Current Visit: Yes Status: Acute Priority: High Code(s): D61.818 - OTHER PANCYTOPENIA SNOMED Code(s): 159711831
--- NOTE | 2020-08-04 17:45 | P.PN ---
Subjective Progress Note Date: 08/04/20 08/04/2020: Patient essentially unchanged. Patient on Precedex 0.7 mcg/kg/m. Patient opens eyes, moves his lower extremities, but does not move his upper extremities. He grimaces. Patient is getting dialysis now. BUN is 165, creatinine 3.15. 08/03/2020: Neurology was reconsulted to check on the computed tomography scan of head that was performed today. Per nursing report, he is on Precedex 0.3 mc g/kg/m. Patient has tracheostomy. Please refer to examination below. No seizure-like activity. Objective - Vital Signs Vital signs: Vital Signs Temp 98.7 F 08/04/20 16:00 Pulse 103 H 08/04/20 17:00 Resp 20 08/04/20 17:00 BP 114/78 08/04/20 17:00 Pulse Ox 91 L 08/04/20 17:00 Intake & Output 08/03/20 08/04/20 08/04/20 18:59 06:59 18:59 Intake Total 935.83 0674.675 2480.771 Output Total 374 175 3001 Balance 320.83 575.000 345.771 Weight 101.8 kg 101.8 kg Intake: IV 10 110 70 0.9 Normal Saline 10 110 70 Intake, IV Titration 260.83 100.000 630.771 Amount Anidulafungin 100 mg In 100 Sodium Chloride 0.9% 100 ml @ 84 mls/hr IVPB DAILY [facility] Rx#:[id number] Dexmedetomidine/0.9% NaCl 60.83 100.000 84.749 (Pmx) 400 mcg In Empty Bag 1 bag @ Titrate IV . Q0M [facility] Rx#:[id number] Dexmedetomidine/0.9% NaCl 73.041 (Pmx) 400 mcg In Empty Bag 1 bag @ Titrate IV . Q0M [facility] Rx#:[id number] Norepinephrine 8 mg In 22.981 Sodium Chloride 0.9% 250 ml @ 0.05 MCG/KG/MIN 9. 849 mls/hr IV .Q24H [facility] Rx#:[id number] Sodium Chloride 0.45% 1, 200 350 000 ml @ 50 mls/hr IV . Q20H [facility] Rx#:[id number] Tube Feeding 240 420 520 Blood Product 350 Platelet Pheresis Pas 350 Psoralen Unit [id number] Other 75 654 702 Output: Urine 615 805 580 Hemodialysis 1000 Other: Voiding Method Indwelling Catheter Indwelling Catheter Indwelling Catheter ABP, PAP, CO, CI - Last Documented Arterial Blood Pressure 118/64 - Exam On examination patient is a middle aged male, appears somnolent at this time. Patient opens his eyes, grimaces to some painful stimuli. Patient did not move his upper extremities. Some movement of the lower extremities. Patient has tracheostomy in place. Pupils are round and reacting. Patient did not follow any commands like moving his hands or feet. Patient is apparently legally blind. Tone is decreased, particularly in the hands. Patient has demarcation of the fingertips of the left hand from ischemia. It is evolving. Reflexes are absent, plantars are flat. Patient has moderate peripheral edema. - Labs CBC & Chem 7: 08/04/20 02:51 08/04/20 02:51 Labs: Abnormal Lab Results - Last 24 Hours (Table) 08/03/20 08/03/20 08/04/20 Range/Units 17:39 23:54 02:51 RBC 2.50 L (4.30-5.90) m/uL Hgb 7.2 L (13.0-17.5) gm/dL Hct 23.2 L (39.0-53.0) % RDW 16.6 H (11.5-15.5) % Plt Count 15 L* (150-450) k/uL Metamyelocytes # (Man) 0.71 H (0) k/uL Myelocytes # (Manual) 0.08 H (0) k/uL PT (9.0-12.0) sec INR (<1.2) Fibrinogen (200-500) mg/dL Sodium (137-145) mmol/L Chloride (98-107) mmol/L Carbon Dioxide (22-30) mmol/L BUN (9-20) mg/dL Creatinine (0.66-1.25) mg/dL Glucose (74-99) mg/dL POC Glucose (mg/dL) 127 H 123 H (75-99) mg/dL Total Bilirubin (0.2-1.3) mg/dL AST (17-59) U/L ALT (4-49) U/L Alkaline Phosphatase (38-126) U/L Total Protein (6.3-8.2) g/dL Albumin (3.5-5.0) g/dL Coronavirus (PCR) (Not Detectd) 08/04/20 08/04/20 08/04/20 Range/Units 02:51 06:30 11:27 RBC (4.30-5.90) m/uL Hgb (13.0-17.5) gm/dL Hct (39.0-53.0) % RDW (11.5-15.5) % Plt Count (150-450) k/uL Metamyelocytes # (Man) (0) k/uL Myelocytes # (Manual) (0) k/uL PT (9.0-12.0) sec INR (<1.2) Fibrinogen (200-500) mg/dL Sodium 146 H (137-145) mmol/L Chloride 114 H (98-107) mmol/L Carbon Dioxide 19 L (22-30) mmol/L BUN 165 H* (9-20) mg/dL Creatinine 3.15 H (0.66-1.25) mg/dL Glucose 119 H (74-99) mg/dL POC Glucose (mg/dL) 143 H 131 H (75-99) mg/dL Total Bilirubin 2.3 H (0.2-1.3) mg/dL AST 78 H (17-59) U/L ALT 191 H (4-49) U/L Alkaline Phosphatase 206 H (38-126) U/L Total Protein 4.5 L (6.3-8.2) g/dL Albumin 2.3 L (3.5-5.0) g/dL Coronavirus (PCR) (Not Detectd) 08/04/20 08/04/20 Range/Units 12:00 12:10 RBC (4.30-5.90) m/uL Hgb (13.0-17.5) gm/dL Hct (39.0-53.0) % RDW (11.5-15.5) % Plt Count (150-450) k/uL Metamyelocytes # (Man) (0) k/uL Myelocytes # (Manual) (0) k/uL PT 12.3 H (9.0-12.0) sec INR 1.2 H (<1.2) Fibrinogen 748 H (200-500) mg/dL Sodium (137-145) mmol/L Chloride (98-107) mmol/L Carbon Dioxide (22-30) mmol/L BUN (9-20) mg/dL Creatinine (0.66-1.25) mg/dL Glucose (74-99) mg/dL POC Glucose (mg/dL) (75-99) mg/dL Total Bilirubin (0.2-1.3) mg/dL AST (17-59) U/L ALT (4-49) U/L Alkaline Phosphatase (38-126) U/L Total Protein (6.3-8.2) g/dL Albumin (3.5-5.0) g/dL Coronavirus (PCR) Detected A (Not Detectd) Microbiology - Last 24 Hours (Table) 07/28/20 11:45 Blood Culture - Final Blood No Growth after 144 hours Assessment and Plan Assessment: * Toxic metabolic encephalopathy, slightly improved. Reasons multifactorial as mentioned. * Acute ischemic stroke small, right frontal region with mild petechial hemorrhage in the cortical ribbon. * Acute kidney injury requiring hemodialysis. Patient undergoing hemodialysis today. * Acute hypoxic respiratory failure from COVID-19 related pneumonia, status post tracheostomy. * Pancytopenia. Patient had leukopenia, controlled on Aranesp * Severe thrombocytopenia with platelets 15,000. * Status post revision of PEG tube. * Left hand ischemia * Anemia hemoglobin 7.2 * Hypertension * Morbid obesity * Legal blindness * Obstructive sleep apnea * Superficial venous thrombosis Plan: * Patient so far not showing any significant clinical improvement. Overall prognosis appears poor for meaningful recovery based upon multiple comorbid factors. * Patient had a repeat computed tomography scan of head performed 08/03/2020, which revealed stable findings, evolving subacute hemorrhagic infarct right frontal lobe redemonstrated. Overall it has not changed significantly since the initial study on 07/22/2020. Patient is severely thrombocytopenic. Okay to stop aspirin, due to risk of more ICH. May resume aspirin when medically feasible. * Carotid Doppler showed no hemodynamic significant stenosis of the proximal ICA. * 2-D echo from 07/06/2020 showed normal left-ventricular size. Moderate concentric LVH. EF is 55-60%. Right ventricle is severely enlarged. Mild TR. * Patient's toxic metabolic encephalopathy has improved. He continues to be severely encephalopathic. Patient is awake, blinks, but minimal response to external stimuli and still does not following commands at least on my examination. 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 * EEG 07/20/2020 also revealed severe degree of background slowing consistent with encephalopathy. No epileptiform activity seen. * Prognosis is still very guarded based upon his current neurological status, physical examination and underlying multiple comorbid conditions. * Patient was on on Apixaban for superficial venous thrombosis, which was discontinued on 07/19/2020 for anticipation for tracheostomy. * Patient is status post PEG tube replacement.
[2020-08-04 17:52] LABS: Glucose,Whole Blood 124 mg/dL (75-99)
[2020-08-05 00:02] LABS: Glucose,Whole Blood 136 mg/dL (75-99)
[2020-08-05] MEDS: INSULIN ASPART (NovoLOG) 100 UNIT/ML VIAL SQ SCH ×4 (00:16→17:57)
[2020-08-05] MEDS: HYDROmorphone 1 MG/ML 1 ML SYRINGE IVP PRN ×4 (01:32→20:30)
[2020-08-05] MEDS: SODIUM CHLORIDE 0.45% 1,000 ML IV SCH (05:25)
[2020-08-05 06:06] LABS: Glucose,Whole Blood 123 mg/dL (75-99)
[2020-08-05 06:17] LABS: Glucose,Whole Blood 126 mg/dL (75-99)
--- NOTE | 2020-08-05 06:26 | XR ---
EXAMINATION TYPE: XR chest 1V portable DATE OF EXAM: 08/05/2020 CLINICAL HISTORY: Difficulty breathing and pneumonia progress study. TECHNIQUE: Single AP portable semiupright view of the chest is obtained. COMPARISON: Chest x-ray from one day earlier and older studies FINDINGS: Stable tracheostomy tube and large bore right internal jugular dialysis catheter. Stable l eft-sided PICC line. Persistent right greater than left bibasilar opacities and central vascular congestion on background upper lung chronic parenchymal change. Cardiac silhouette size is stable and within normal limits. Os seous structures are intact. IMPRESSION: Chronic changes with right greater than left bibasilar acute infiltrate and/or atelectasi s redemonstrated. No significant change from one day earlier.
[2020-08-05 07:13] LABS: Anisocytosis Slight; HCT 20.2 % (39.0-53.0); HGB 6.4 gm/dL (13.0-17.5); Hypochromasia Moderate; MCH 28.9 pg (25.0-35.0); MCHC 31.7 g/dL (31.0-37.0); MCV 91.2 fL (80.0-100.0); Mean Platelet Volume 8.9; Platelet Count 13 k/uL (150-450); RBC 2.22 m/uL (4.30-5.90); RDW 16.7 % (11.5-15.5); WBC 14.1 k/uL (3.8-10.6)
[2020-08-05 07:31] LABS: Calcium 8.2 mg/dL (8.4-10.2); Potassium 3.4 mmol/L (3.5-5.1)
[2020-08-05] MEDS: MAG HYDROX/AL HYDROX/SIMETH 30 ML, diphenhydrAMINE ELIXIR 75 MG, NYSTATIN 100,000 UNIT/... PO SCH ×12 (07:44→22:21)
[2020-08-05] MEDS: ALBUTEROL HFA INHALER INHALATION SCH ×3 (07:50→21:26)
[2020-08-05] MEDS: DEXMEDETOMIDINE/0.9% NACL(PMX) 400 MCG in EMPTY BAG 1 BAG IV SCH ×3 (08:33→21:09)
[2020-08-05 09:02] LABS: ABG Base Excess 1.3 mmol/L; ABG HCO3 24 mmol/L (21-25); ABG Oxygen Saturation 89.8 % (94-97); ABG PCO2 31 mmHg (35-45); ABG TCO2 25 mmol/L (19-24); Allen Test Performed? Yes
[2020-08-05 09:05] LABS: ABG PO2 56 mmHg (83-108)
--- NOTE | 2020-08-05 10:04 | P.PN ---
Subjective Progress Note Date: 08/05/20 Principal diagnosis: Acute hypoxic respiratory failure second to COVId 19 pneumonia The patient is seen today 07/12/2020 in follow-up in the intensive care unit. He remains intubated, sedated on the mechanical ventilator at assist control mode of a rate of 36, tidal volume 450, FiO2 40% and a PEEP of 10. Morning blood gases reveal pO2 of 69, pCO2 41, pH 7.35. He remains sedated on propofol at 60 mcg/kg/m, fentanyl at 1 mcg/kg/h, norepinephrine at 0.09 mcg/kg//min, the patient is currently on 0.9 saline at rate of 50 mL an hour. The patient has been off Nimbex since yesterday. He is continued on Argatroban at 0.5 mcg/kg/m. Being nourished with Nepro at 15 ML's per hour. He did receive hemodialysis yesterday with 1 L removed. Chest x-ray reveals mild bibasilar infiltrates. Sputum cultures positive for beta-hemolytic strep, group C. White count 18.1. Hemoglobin 10.6. Platelet count 141. D-dimer 19.69. Sodium 133. Potassium 4.7. Creatinine 4.14. LDH 1067, C-reactive protein 24. Remains on antibiotics in the form of ceftriaxone. Bronchodilators. Vitamin supplements. Dexamethasone. 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 The platelet count is stable and the platelet count is up to 136. On 07/12/2020, the patient is being seen for follow-up. The patient is a 59-year-old obese male patient with a BMI of 36.2 with known history of obstructive sleep apnea, presented with COVID 19 related pneumonia patient is currently intubated on a mechanical ventilator. The patient has been on a mechanical ventilator since 07/05/2020. 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 During the course of his treatment, the patient developed an acute kidney injury secondary to ATN secondary to "with 19 infection. Urine output was improving and the patient's urine output was in order of 20-25 mL an hour. Due to persistent hyperkalemia and worsening renal function, the patient was started on hemodialysis on 07/10/2020. The potassium level improved post-hemodialysis. The patient also had significant metabolic acidosis and the patient was given bicarb infusion. Electrolytes are being monitored. The patient got dialyzed yesterday and this was his second hemodialysis. Nephrology is on the case. He is currently on Decadron 6 mg IV every 24 hours. His chest x-ray is showing patchy by the pulmonary infiltrates in lower lobes, slightly worsening in the chest x-ray findings on today's evaluation mainly in the peripheries and ET tube is in a good location. The patient remains on a mechanical ventilator assist control mode. He is on Nepro at 60 mL an hour. 07/13/2020, I'm seeing this patient for a follow-up. This is a case of a 59-year-old male patient with Covid 19 related pneumonia and acute kidney injury currently on hemodialysis. Worn-out, the patient is sedated and this morning the patient is currently on propofol running at 6 60 mcg/kg per minute and fentanyl is running at 1 mcg/kg/h and this is the same sedation it was being provided yesterday. The patient is on no paralytics for now. The patient is on a mechanical ventilator, on this morning's evaluation, he is on assist-control at the rate of 28 with a tidal volume of 450 and FiO2 of 50% and PEEP is 10. Blood gases from today showing a pH of 7.37 with a pCO2 of 47 and pO2 of 63. Chest x-ray from today is showing diffuse bilateral pulmonary infiltrates more so in the lower lobes bilaterally. ET tube is in a good location. Comparing this chest x-ray from yesterday, there is no major interval change in the findings are essentially stable. His peak airway pressures 28. His static pressures 24. The patient is is still on Decadron 6 mg IV every 24 hours. D- dimer today's at 13.3, his LDH level is at 1021 and the CRP is at 4.6. Note that his inflammatory markers essentially compatible to yesterday. His echoes at 13.7 with a hemoglobin of 9.2. Platelet count is 112. I took the patient off Agratoban and he was also placed on Eliquis at a dose of 5 mg by mouth twice a day. Noted the patient also is an acute kidney injury. The patient underwent dialysis and the spot he has taken 3 sessions of hemodialysis. He is producing urine output in the order of 20-30 mL an hour. His last session of hemodialysis was yesterday. In terms of his electrolytes, his BUN is at 80 with a creatinine of 3.5 and a sodium of 132 with a potassium of 4.4. He is currently on enteral feeding for dizziness support and is currently on Nepro at the rate of 50 mL an hour. He is currently off Rocephin. He is afebrile. He is requiring low-dose pressors were norepinephrine 30 dose of 0.03 mcg/kg per minute. Otherwise, no other significant events. He is afebrile. Sedation holiday was not done yesterday. IV fluids are running at 0.9 at the rate of 50 mL an hour. 07/14/2020, patient is being seen for follow-up. Sedated and still on a mechanical ventilator, probable resolving. 60 mcg/kg per minute and the patient is also on fentanyl at 1 mcg/kg/h. Adequately sedated. On a mechanical ventilator essentially vent settings being at tidal volume of 450 with an FiO2 of 50% and a PEEP of 10 and a rate of 28. These are essentially the same settings as yesterday. As far as blood gases, pO2 is at 79 with a pCO2 of 45 and a pH is at 7.35. He d-dimer is at 9.42 and the rest of the inflammatory markers show an LDH of 1062 which is stable compared to yesterday and a CRP of 87, slightly elevated compared to yesterday. His CPK is down to 231. His pro calcitonin level was at 0.58 and note that the patient has dialysis-dependent renal failure. As far as his creatinine, his creatinine today is at 3.97 with a mean of 96. He did not receive dialysis yesterday. His urine output is in order of 30-40 mL an hour and the fluid balance has been +1.1 L over the past 24 hours. His chest x-ray from today is showing lower lobe pulmonary infiltrates, essentially stable compared to yesterday. ET tube remains in excellent location. IV fluids are running at 20 cc an hour of normal saline. He is afebrile. He is tolerating his enteral feeding for nutritional support. Norepinephrine infusion which is running at 0.05 mcg/kg per minute. He remains on Decadron 6 mg IV every 24 , platelet count is stable at 121 and 11 avoiding heparin. Patient holiday yesterday was ultimately aborted as the patient became quite agitated after several hours without any meaningful neurological response. 07/15/2020, the patient is being seen for a follow-up. Sedated with propofol running at 60 mcg/kg per minute and fentanyl is at 1 mcg/kg/h and the level of sedation essentially the same as yesterday. Remains on a mechanical ventilator. He is an assist-control mode at the rate of 24 with a tidal volume of 450 and a PEEP of 8 with a FiO2 of 50%. He had a blood gas showing pH of 7.33 with a pCO2 of 46 and pO2 of 73. Chest x-ray is unchanged, probably slightly worse on the left in terms of that the patient is seeing on today's chest x-ray. ET tube remains in a good location. Inflammatory markers from today show a d-dimer of 9 with a LDH level of 1061 and a CRP of 78, comparable to yesterday. His pro calcitonin level was low. He got dialyzed yesterday. I attempted to wean down the PEEP to 6 and this was not successful and the patient desaturated in the P EEP was brought back up to 8 yesterday. Meanwhile, he is afebrile. He is producing urine output in the order of 20-30 mL an hour. He is on normal saline at the rate of 20 mL an hour. He remains on Decadron 6 mg IV to 24 hours. His platelet count is 132 which is essentially stable and improved compared to yesterday. In terms of pressors, the patient is currently on norepinephrine infusion at 0.04 mcg/kg per minute. I will today's condition essentially unchanged and his condition essentially the same as compared to yesterday 07/16/2020, remains on a mechanical ventilator on propofol at the rate of 60 mcg/kg per minute and fentanyl is at 2 mcg/kg/h. He remains off paralytics. At around 6:00 this morning, the patient had some oxygen desaturation. Based on that, I increased his FiO2 up to 60%. Currently is an assist-control mode rate of 28 with a tidal volume of 450 and a PEEP of 8 chest x-ray still showing diffuse bilateral pulmonary infiltrates left more than right. The blood gas shows a pH of 7.31 with a pCO2 of 45 and pO2 of 68. This was on FiO2 of 70%. Inflammatory markers show a d-dimer of 9.9 with a LDH level of 1103 and a CRP level of 62. The patient is on Decadron 6 mg IV every 24 hours. The patient is also on anticoagulation with Eliquis 2.5 mg by mouth twice a day. His platelet counts is 135. The chest x-ray findings are obviously worse and there is some worsening in the evaluation in the right lung compared to yesterday. Note that the patient did not get dialyzed yesterday. Today is a dialysis day for him. He is also on norepinephrine infusion running at 0.08 mcg/kg per minute. There is enough to maintain his blood pressure. He is receiving enteral feeding for discharge support and currently is on Nepro at a rate of 50 mL an hour which is currently at goal. No other significant events. Is adequately sedated for now. 07/17/2020, the patient is being seen for a follow-up. This morning he is on a combination of propofol and fentanyl running at 60 mics for propofol and 1 g for fentanyl. He was given a sedation holiday and she was able to tolerate initiated subsequently he decompensated and became hypoxic and he had to be placed back on sedation. Noted the patient became asynchronous. This morning, he is back on a mechanical ventilator mode at the rate of 28 with a tidal volume of 450 and her FiO2 is at 60% with a PEEP of 8. He underwent dialysis yesterday with a total of 2 liters of ultrafiltration. Note that he was able to tolerated dialysis without any major issues. He is on a minimal dose of norepinephrine infusion running at 0.06 mcg/kg per minute for blood pressure control. On today's evaluation, peak air pressures around 27. The blood gases from today shows a pH of 7.29 with a pCO2 of 40 and pO2 of 99 and this was on FiO2 of 60%. As mentioned, his PEEP is at 8. Chest x-ray still showing diffuse breath and pulmonary infiltrates unchanged without any major interval improvement or worsening. White cell count is at 50 with a hemoglobin of 8.2. Creatinine is at 3.4 and a urine output is in order of 30 mL an hour. No plans for hemodialysis today. He is receiving enteral feeding for nutritional support with Nepro at the rate of 50 mL an hour. He is stooling. Still sedation dependent. Unable to wean him off sedation because of a 6 and mean oxygen desaturations. I have approach the and the family with a possibility of ainsertion of a tracheostomy tube and a PEG tube for prolonged need of mechanical ventilation and failure for weaning. The patient has been intubated since 07/05/2020. The inflammatory markers from today shows an LDH level of 889, CRP is at 6 and the d-dimer is at 6.05. The patient has palpable pulses in his left upper extremity. She of his fingers are necrotic and the tip including the index, the platelet counts are stable and the patient is currently on Eliq uis 2.5 mg by mouth twice a day. Or 2020, the patient remains sedated with a combination of propofol and fentanyl running at 50 mcg/kg per minute for propofol and 1 mcg/kg per hour for fentanyl. He is sedated. In fact is deeply sedated. We are going to proceed with a sedation holiday on this patient today. He remains on a mechanical ventilator. He remains on a assist-control rate of 28, tidal volume of 450, FiO2 of 50% with a PEEP of 8. Attempts to wean the PEEP further failed and the patient became more hypoxic. As such, the patient is living At 8. This patient is a 7.26 with a pCO2 of 48 and pO2 of 71 today's blood gas. His chest x-ray showing stable bilateral pulmonary infiltrates essentially involving the lower lobes. ET tube is in a good location. Note that the patient is producing urine output in the order of 8200 mL an hour. His net fluid balance over the past 24 hours has been -83 mL. He has had a with a positive fluid balance for today. The findings on the case. The intent of the dialysis 3 times a week. His last dialysis was done on Sunday which is 2 days ago. His creatinine is up to 3.7 with a BUN of 84. Rest of the electrolytes are normal. Affect is running a lower sodium level of 1:30 with a potassium level of 4.1. Serum bicarbs at 20. In terms of his COVID-19 related pneumonia, the patient has a LDH level of 855, CRP level of 5.2 and his most recent d-dimer is at 5.4. He remains on steroids and he is on Decadron 6 mg IV every 24 hours. He did have a component of hit syndrome. This was related to heparin. He did receive Agratroban was ultimately discontinued once the patient's stated count picked up and it's platelet count is currently at 129. He does have necrotic fingers in his left upper extremity. Adequate pulses in the radial. No new vascular insults noted on today's examination. He is receiving enteral feeding for nutritional support and is currently on Nepro at the rate of 10 mL an hour. He is stooling. He is on Rocephin for strep in history of the blood cultures on 2 separate occasions. Otherwise, the blood cultures positive for coagulase-negative staph. Patient was reevaluated today on 07/19/2020, remains intubated and mechanically ventilated, he is off sedation and he is not showing any signs of neurological not responding to any stimuli. Patient is on assist control rate of 24th of volume 450 FiO2 50% and PEEP of 6. ABG showed a pO2 of 81 pCO2 41 pH of 7.31 patient is on enteral feeding. And he may undergo dialysis. We plan to have a tracheostomy and PEG tube placement in this patient, and he is basically a failure to wean. Today the sedation is placed on hold. Chest x-ray continues to show bilateral pulmonary infiltrates involving lower lobes. Endotracheal tube is in the proper position. Patient is making good urine, however his renal functioning seems to be getting worse. Electrolytes are normal. BUN is 91 creatinine 4.51 LDH is 893 liver enzymes are borderline elevated, C-reactive protein is 4.2 d-dimer 6.68. WBC count is 9.1 hemoglobin is 8.9 On 07/20/2020 patient seen in follow-up in intensive care unit, he was given daily traction of sedation yesterday, and his sedation was on hold for several hours and the patient never woke up over open his eyes or follow any commands, and as the day went on he started breathing fast, started desaturated and get agitated and was he was placed back on sedation on which she remains today, currently on Diprivan at 40 mics per kilo per minute, and fentanyl infusion at 1 mics per kilo per minute, and levo fed has been discontinued, he is on assist- control mode of ventilation with assist control rate of 24, tidal volumes of 4 50, FiO2 of 50% and PEEP of 6, this morning's blood gas shows pO2 of 92, pCO2 42, and pH is 7.32. He is in sinus mechanism, slightly tachycardic, his tube feedings are currently on hold in case of possibility of tracheostomy and PEG tube insertion however were still awaiting a response from his family on the decision in regards to proceeding with trach and PEG placement, today he is receiving hemodialysis treatment, and a 3 L in fluid was removed today. In terms of urine output he has been making urine in the order of 50-70 ML per hour, he remains on Lasix 80 mg twice daily, he remains on Rocephin for evidence of a beta-hemolytic strep in the sputum cultures, his follow-up sputum culture only showed Armida. History of resting comfortably in bed, he remains on IV dexamethasone 6 mg daily, has been off the levofed. Breasts labs have been reviewed, his white blood cell count is 8.1, hemoglobin is 8.1, his platelet count is 126, d-dimer is 13.3, sodium is 133, potassium 3.7, his renal function is relatively stable, with BUN of 82, and creatinine 4.51. These LDH is 792, CRP is 48. His had no acute events overnight, we spoke to his daughter yesterday in regards to patient's condition, and to discuss tracheostomy and PEG tube insertion, awaiting response from the family on their decision and the daughter indicated that patient had poor quality of life to start with and the were not sure if the workup and consent to the trach and PEG On 07/21/2000 patient seen in follow-up in the intensive care unit, yesterday he tolerated 11 hours of sedation holiday, and he was starting to follow simple commands, however is that day went on he was becoming more agitated and tachypneic, and he was placed back on sedation, currently on Diprivan at 40 mics per kilo per minute, and 0.9 at KVO, he remains intubated, on assist control mode of ventilation, with a rate of 24, Tylox 450, FiO2 of 50% and PEEP of 6, this morning's blood gases show pO2 133, pCO2 of 41, and pH is 7.38. Patient is resting comfortably, appears to be in no acute distress, he is not on any vasoactive drugs, no vasopressors, she is in sinus rhythm sinus tach with a rate of 90-106 BPM, hemodialysis treatment this morning, and attended have liters of fluid was taken off, his vital signs have been stable overnight, no fever or chills, lung sounds are diminished. She also remains on IV Lasix 80 mg twice da waylon, patient is producing urine in the order of 30-60 ML per hour, and she is in -4.1 L over the last 24 hours with additional -2.49 fluid balance since midnight last night. Chest x-ray shows interval improvement in bilateral airspace infiltrates particularly within the right upper lobe. Today's labs have been reviewed, showing white blood cell count 7.1, hemoglobin of 7.4, platelet count is 120, sodium is 130, potassium is 3.2, chloride is 104, CO2 of 23, BUN of 75 and creatinine of 4.01. Patient remains on Rocephin for beta-hemolytic strep in the sputum, repeat culture of the sputum showed only Armida. He is tolerating tube feedings which are on hold for tracheostomy and PEG tube placement which is scheduled for today. On 07/22/2020 patient seen in follow-up in intensive care unit, he remains sedated and trach to the ventilator, on assist-control mode of ventilation with a rate of 24, her lungs were 50, FiO2 50% and PEEP of 6, his blood gas shows pO2 of 169, pCO2 40, pH of 7.36, patient is currently on Diprivan at 55 mics per kilo per minute, he is on 0.9 normal saline at 10 ML per hour, Levophed that he is at 0.02 mics per kilo per minute. Patient is having hemodialysis treatment right now. Patient received tracheostomy and PEG tube yesterday. His hemodialysis access was switched to right subclavian approach. He still has a central line in his groin which will need to be switched to a PICC line. Today's chest x-ray showed bilateral multifocal and confluent opacities consistent with COVID-19 infection with no significant interval change. Vital signs have been stable, his sat 98% on the above mentioned settings, requiring small dose of Levafed. 2 feedings will be started sometime today, he is on Rocephin for evidence of 5 beta-hemolytic strep in the sputum, follow-up sputum culture only showed Armida albicans. She had no acute events overnight. He re leonila on Decadron 6 mg daily, he is Eliquis will be started tonight if it's okay with surgery. No other acute events overnight, and -2.4 L fluid balance over the last 24 hours. He does remains generally swollen. On 07/23/2020 patient seen in follow-up, in the intensive care unit, patient received tracheostomy and PEG tube insertion on 07/21/2020, he remains trached to the ventilator and is currently on assist control mode of ventilation with a rate of 24, tacrolimus 450, FiO2 45% and PEEP of 5, this morning's blood gas shows pO2 of 149, pCO2 of 43, and pH of 7.39, he was given a sedation holiday yesterday, however he did not wake up or start following commands, neurology completed a brain CT which showed decreased attenuation within the high right frontal lobe without cortical increased attenuation which could reflect petechial hemorrhage, patient is currently not on any anticoagulation, is Eliquis has been on hold since 07/19/2020 at 11:00 in the morning. His hemoglobin today 7.4, his platelet count is 115, his d-dimer is currently is 8.18 on this morning's labs. Patient is not on any aspirin, or Plavix or any other anticoagulants. Patient was resedated he is currently on 35 mics per kilo per minute of Diprivan, and 0.9 and is infusing at KVO, no other infusions. Hemodynamically he has remained stable, he is in sinus rhythm sinus tachycardia on the monitor, this morning his PEG tube became plugged when the crushed oral medications were being instilled through the PEG tube, surgery was notified, and the PEG tube was removed, NG tube will be inserted, however no tube feedings or oral medications are to be put down the NG tube at this point. Patient remains on Rocephin for evidence of beta-hemolytic strep in the sputum, yesterday his central line was discontinued and the tip was sent for culture and the culture is pending at this time, however overnight has been no fever, his vital signs have remained stable. He had hemodialysis on 07/21/2020 with removal of 2.5 L in fluids. Today's labs show sodium of 136, potassium 3.5, chloride is 104, CO2 is 22, BUN 54, and creatinine is 2.6, his renal profile is improving, and patient remains on IV Lasix 80 mg twice daily, he is producing urine in the order of 35-60 ML per hour. No other acute events overnight, neurology is following, and is to comment on the findings of the CT of the brain. Today's chest x-ray shows continued diffuse bilateral groundglass airspace disease/pulmonary edema, with continue small effusions with adjacent atelectasis. LDH is down to 640, and CRP is 5.6 On 07/24/2020 patient seen in follow-up in the intensive care unit, he remains trached to the ventilator on assist control mode of ventilation with a rate of 24, tidal is 450, FiO2 of 45% and PEEP of 5, this morning's blood gas shows pO2 of 150; pCO2 40, pH of 7.4, and FiO2 was dropped down to 40% based on the above mentioned blood gases, IV fluids are 0.9 normal saline at a rate of 10 ML per hour, and TPN is infusing at 30 ML per hour, not on any vasopressor support, and patient has been off sedation since yesterday morning, were told by the nursing staff that at times he was noted to be attempting to wiggle toes on command. Remains quite lethargic right now, she is not opening eyes to voice, he is not following commands, he is very weak. Chest x-ray today shows diffuse bilateral infiltrates. Tracheostomy hemodialysis catheter appear to be in appropriate positions, NG tube has been inserted yesterday, and peg tube was discontinued, and surgeries plan on replacing the PEG tube on Sunday. Neurology is following, patient has no signs of obvious seizure activity, he does have cough and a gag reflex. But remains very obtunded, today's labs have been reviewed, showing white blood cell count of 4.1, hemoglobin of 7.4, electrolytes were within normal limits, BUN is 68, and creatinine is 3.54. Patient remains on IV Lasix 80 mg twice daily, is in -856 over the last 24 hours, he is tolerating tube feedings, no diarrhea noted. Yesterday his d-dimer came back at 8.18. Patient remains off Eliquis, and he received 300 mg of rectal aspirin per neurology. His most recent brain CT showed previously noted area of subarachnoid hemorrhage associated with abnormal hypodensity posterior laterally in the right frontal lobe was again noted, not significantly changed. Neurology thinks patient has suffered acute ischemic stroke with a small right frontal region with mild petechial hemorrhage in the cortical ribbon On 07/26/2020 patient seen in follow-up in the intensive care unit, he remains trached to the ventilator, assist control mode of ventilation with a rate of 20 with tidal volumes were 450, FiO2 of 40% and PEEP of 5, displays blood gas shows pO2 of 122, pCO2 of 43, and pH of 7.42. He is 1.9 normal seen at 10 mL an hour, TPN is a 55 ML per hour, Cleviprex is a 7 mg per hour. He has been off Diprivan and for several days now, he just has a morphine sulfate for discomfort on as needed basis, he is waking up to touch and sometimes he follows simple commands, but he is extremely weak and unable to squeeze with his hands on command. His tube feedings have been on hold and he is supposed to have a PEG tube reinserted today, NG tube is in place to low intermittent suction a total of 450 ML of gastric drainage in the last 24 hours, urine output has been in the order of 100-200 ML per hour. He remains on IV Lasix at 80 mg every 12 hours, he is maintaining negative fluid balance of 1.5 L over the last 24 hours. Has been afebrile. Today's chest x-ray shows persistent but improving infiltrates throughout both lung palafox. Today's labs show white blood cell count of 1.1, hemoglobin of 8.4, d-dimer is 11.69, patient has remained off anticoagulation for the PEG tube reinsertion today, sodium is 142, potassium is 4.2, chloride is 102, BUN is 90, creatinine is 3.54, AST is 72, ALT is 82. He is on IV Rocephin for evidence of beta-hemolytic strep in the sputum, and central line catheter tip was positive for Armida albicans. Patient has had no fever or chills. Partially patient has suffered an acute stroke with small subarachnoid hemorrhage, cardiology has been consulted for possibility if AGNIESZKA, which cardiology felt was not needed at this time. No other acute events overnight, no fever or chills, patient has not been able to receive his oral medications for high blood pressure, and has required Cleviprex. On 07/27/2020 patient seen in follow-up in intensive care unit, patient is trached to the ventilator with assist control mode of ventilation with a rate of 24, tidal volume was 450, FiO2 30% and PEEP of 5, no blood gases were done today, overnight he developed a fever with a temp of 101.9F, and today's blood work is down trending white count, neutropenia white blood cell count is 0.6, hemoglobin is 8.2, platelet count is 148, and there is a suspicion of p ossibility of fungal infection, and patient was started on Eraxis yesterday. New blood cultures and urine cultures have been sent, BMP shows a sodium of 140, potassium is 5.2, BUN of 103, and creatinine of 3.66, his inflammatory markers have been reviewed, and LDH is now within normal limits at 559, and CRP is 14.9. His central line catheter tip was positive for Armida albicans, his sputum back on 07/08/2020 was positive for beta-hemolytic strep. Urine culture is currently pending, ID service is following. Patient had a new PEG tube placed on 07/26/2020 he continues on TPN for nutritional support, anticipate restarting his tube feedings this afternoon if cleared by surgery. On 07/28/2020 patient seen in follow-up in the intensive care unit. Remains trached to the ventilator, on assist control mode of ventilation with a rate of 24, tacrolimus 450, FiO2 30%, and PEEP of 5, no new blood gases today. Today's chest x-ray showing stable portable chest, and no change in bibasilar opacities. Patient has remained off sedation, and he started to follow some simple commands, however his severe generally weak, he is unable to squeeze with his hands, he opens eyes to voice, withdraws from painful stimuli. today's labs reviewed showing white blood cell, 0.2, hemoglobin is 6.5, platelet count is 108, patient is pancytopenic, 1 unit of blood will be transfused today, sodium is 144, potassium is 4.4, chloride is 108, BUN of 119, creatinine is 3.9. No obvious source of bleeding at this time. Cultures have been sent, patient is currently on Eraxis for Armida albicans on the central line catheter tip, sputum. Patient remains on Rocephin for streptococcal pneumonia. He was febr ile in the last 24 hours with a T-max of 101.3F. He continues on IV Lasix, he is making urine in order of 100-120 ML per hour. Is on Nepro for nutritional support at 36 with a goal of 36 On 07/29/2020 patient seen in follow-up in the intensive care unit. Patient remains trached to the ventilator, with assist control mode of ventilation rate of 24, Tylenol is 450, FiO2 of 30%, and PEEP of 5. Patient's blood gas shows pO2 of 94, pCO2 of 39, and pH of 7.43, he is on 0.9 normal saline at 10 in the per hour, no other drips, and he is receiving nutritional support in the form of Nepro at 36 with a goal of 36 and 60 mL of water flushes every 4 hours per nephrology. He remains lethargic, generally weak. Per nursing staff patient is at times squeezing her finger on command. Brain CT was repeated showing evolving subacute hemorrhagic infarct in the right frontal lobe with no significant interval change, no new acute intracranial hemorrhage or midline shift. We restarted the patient on prophylactic anticoagulation in the form of Lovenox yesterday, today's labs have been reviewed, d-dimer is 3.83, white count is 0.2, hemoglobin is 7.0, platelet count is 142, sodium is 148, potassium is 3.8, and patient's renal function has worsened, and the Lasix is now on hold, free water flushes were increased by nephrology. Patient continues on Eraxis, and urine culture from 07/26/2020 showed Armida albicans, repeat urine culture has been sent, blood culture from 07/26/2020 showed no growth, final culture is pending. he has been afebrile. Rocephin has been discontinued, infectious dise ase has been consulted On 07/31/2020 patient seen in follow-up in intensive care unit, he opens eyes to voice, he turns had to voice, but unable to squeeze hands on command and follow command. He remains very generally weak, and continues to be somewhat encephalopathic although his level of consciousness has improved. He remains trached to the ventilator, with assist control mode of ventilation and the rate of 24, tidal vital was 450, FiO2 of 30% and PEEP of 5, this morning's blood gas shows pO2 of 104, pCO2 37, and pH of 7.44. This was done on FiO2 of 30%, yesterday he tolerated per support trial for about 5 hours, and was flipped back to assist control mode of ventilation related to respiratory fatigue. This morning he is maintaining O2 saturations at or above 96-98%, appears very c omfortable, and we will proceed with another trial of pressure-support ventilation. He is currently on 0.9 normal saline at 5 ML per hour, no other drips, he is not on any sedatives or narcotics, he is currently on Eraxis, and cefepime. ID service is following. His urine culture was positive for Armida albicans, and he had previously had beta-hemolytic streptococcus in his sputum. Repeat sputum culture was sent on 07/29/2020, and preliminary Gram stain shows many gram-positive cocci, moderate gram-positive bacilli, and a few gram- negative bacilli. Tracheostomy site was also cultured, and preliminary Gram stain shows many gram-positive cocci, many gram-positive bacilli, and many gram-negative bacilli. Today's labs have been reviewed, white blood cell, 0.2, hemoglobin is 7.0, platelet count is 89, his sodium remains elevated at 148, and nephrology is following and patient is receiving tube feedings in the form of Nepro at 36 ML per hour, with 75 ML of free water flushes every 1 hour. His chloride is 112, BUN is 152, and creatinine is 4.07. His renal function slightly worse than yesterday, his liver enzymes show improvement in his AST, slightly increased ALT and relatively stable alkaline phosphatase, his pro- calcitonin level from yesterday was at 1.39. His urinalysis from 07/28/2020 shows possibility of urinary tract infection. His urine output is in the order of 75-125 ML per hour, has been nonoliguric, no diarrhea. He is tolerating tube feedings. Does have some generalized swelling. We restarted patient's prophylactic Lovenox with hematology clearance, hematology is following and patient is currently on Zarxio On 08/01/2020 patient seen in follow-up in intensive care unit, yesterday he'll tolerated 30 minutes of pressure-support according to the nursing staff, became fatigued, and placed on assist-control mode of ventilation on which she remains this morning, with a rate of 24, tidal volume is 450, FiO2 of 30% and PEEP of 5. Patient is awake and alert, he closed his eyes on command, he has however very weak and unable to squeeze hands on command, and unable to wiggle toes. He is currently on D5W at a rate of 75 ML per hour, no other drips, he is on nutritional support in the form of Nepro at 36 with a goal of 36 and free water flushes of 75 ML per hour per nephrology. Today's blood gas has been reviewed showing pO2 of 121, pCO2 of 35, and pH of 7.44, this was done on FiO2 of 30%, there is the blood work has been reviewed showing white blood cell, 0.3, hemoglobin of 7.4, platelet count is 58, sodium is 145, potassium 4.0, chloride is 111, CO2 is 21, BUN of 156, creatinine is 3.46, his liver enzymes continue to worsen. His last pro-calcitonin from 07/30/2020 remains elevated at 1.39. Patient has been on Eraxis and cefepime, ID service is following, last urinalysis from 07/20/2020 showed urinary tract infection, urine cultures are positive for Armida. Patient continues on Lovenox at 30 mg daily, he is also on Zarxio for pancytopenia On 08/04/2000 patient seen in follow-up in the intensive care unit, he remains trached the ventilator, on VC plus mode of admission, with a rate of 24, tidal volume 500, FiO2 of 25% and PEEP of 5. No new blood gas today, today's chest x- ray shows stable appearance of patchy bibasilar infiltrates. Patient is currently on 0.9 normal saline at a rate of 20 ML per hour, and Precedex was started yesterday and is currently infusing a rate of 0.7 mics per kilo per hour. Receiving nutritional support in the form of Nepro at 36 with a goal of 36 and free water flushes of 75 ML per hour per nephrology recommendations, today's labs have been reviewed including white blood cell count up to 7.9, hemoglobin is 7.2, platelet count is 15, patient received 1 unit of platelets yesterday, serum sodium today is 146, potassium is 3.9, chloride is 114, CO2 is 19, B1 is 165, creatinine is 3.15. His AST is improving and is down to 78, ALT is 191, alkaline phosphatase is 206. He has completed 7 days of the Eraxis. And he currently remains on Flagyl per ID service recommendations, his neck wound cultures are showing anaerobic gram-negative bacilli, final culture is pending. he completed 7 days of the Eraxis for candidal urinary tract infection. Continues to be febrile with a temp of 10 1F. Patient is tachycardic in sinus mechanism, the rate of 120 BPM. Patient is less responsive on today's exam, however he is tachypneic, and he is tracheostomy is positional and As noted to be leaking. But not significantly losing volume. His Lasix was placed on hold, his urine output significantly declined in the order of 30-50 ML per hour, he appears to be very edematous in general, and today he will have a hemodialysis treatment On 08/05/2020 patient seen in follow-up on medical- surgical floor, he is currently on VC+ plus mode of elevation with a rate of 24, Tylenol -500, FiO2 of 25% and PEEP of 5, this morning's blood gas reveals pO2 of 55.6, pCO2 of 31, and pH is 7.5. Patient is tachypneic, using accessory muscles of breathing, she was tried on pressure control of ventilation, but also did not appear comfortable, and was placed back on his original settings with the volume control plus mode of ventilation, her O2 was increased to 40%. Patient seems to be more alert, and following simple commands, he is blinking his eyes to yesterday no questions, and he is able to squeeze on command with his hands. The last 24 hours is 100.3, currently on Flagyl, cefepime and Eraxis were discontinued. Trach site cultures are showing anaerobic gram-negative bacilli, final culture is pending. White blood cell count is 14.1, hemoglobin is 6.4 on today's labs, platelet count is 13, sodium is 138, potassium is 3.4, chloride is 107, BUN of 108, and creatinine is 2.74. Patient underwent hemodialysis yesterday with removal of 1 L of fluid. Overnight his urine output is in the order of 10-35 ML per hour. Transfusion with 1 unit of packed red blood cells is pending for today, and we will order 1 unit of Platelets as well. he remains on Nepro at goal for nutritional support. Objective - Vital Signs Vital signs: Vital Signs Temp 99.3 F 08/05/20 08:00 Pulse 112 H 08/05/20 09:00 Resp 32 H 08/05/20 09:00 BP 155/108 08/05/20 09:00 Pulse Ox 92 L 08/05/20 09:00 Intake & Output 08/04/20 08/05/20 08/05/20 18:59 06:59 18:59 Intake Total 2134.060 2070.066 502.701 Output Total 1590 155 75 Balance 202.846 3434.066 427.701 Weight 101.8 kg 105 kg Intake: IV 70 450 150 0.9 Normal Saline 70 Sodium Chloride 0.45% 1, 450 150 000 ml @ 50 mls/hr IV . Q20H [facility] Rx#:[id number] Intake, IV Titration 724.060 275.066 7.701 Amount Anidulafungin 100 mg In 100 Sodium Chloride 0.9% 100 ml @ 84 mls/hr IVPB DAILY [facility] Rx#:[id number] Dexmedetomidine/0.9% NaCl 84.749 (Pmx) 400 mcg In Empty Bag 1 bag @ Titrate IV . Q0M [facility] Rx#:[id number] Dexmedetomidine/0.9% NaCl 116.330 92.299 7.701 (Pmx) 400 mcg In Empty Bag 1 bag @ Titrate IV . Q0M [facility] Rx#:[id number] Norepinephrine 8 mg In 22.981 132.767 Sodium Chloride 0.9% 250 ml @ 0.05 MCG/KG/MIN 9. 849 mls/hr IV .Q24H [facility] Rx#:[id number] Sodium Chloride 0.45% 1, 400 50 000 ml @ 50 mls/hr IV . Q20H [facility] Rx#:[id number] Tube Feeding 560 520 120 Other 780 825 225 Output: Urine 590 155 75 Hemodialysis 1000 Other: Voiding Method Indwelling Catheter Indwelling Catheter ABP, PAP, CO, CI - Last Documented Arterial Blood Pressure 118/64 - Exam GENERAL EXAM: Awake and alert, morbidly obese 6-year-old white male, trached to the ventilator, on volume-control mode of ventilation with a 25% PEEP of 5, tachypneic, using abdominal muscles of respiration, following simple command, he is able to blink eyes on commands and squeeze with his hands on command, he is on Precedex at 0.7 mics per kilo per minute generalized weakness comfortable in no apparent distress. Blinking eyes "yes" when asked if he is hurting HEAD: Normocephalic/atraumatic. EYES: Normal reaction of pupils, equal size. Conjunctiva pink, sclera white. NOSE: Clear with pink turbinates. THROAT: No erythema or exudates. NECK: No masses, no JVD, no thyroid enlargement, no adenopathy. Midline tracheostomy connected to the ventilator, this brownish colored draining from around the trach tube site CHEST: No chest wall deformity. Symmetrical expansion. Right subclavian permacath in place and patient is receiving hemodialysis LUNGS: Equal air entry with no crackles, wheeze, rhonchi or dullness. CVS: Regular rate and rhythm, normal S1 and S2, no gallops, no murmurs, no rubs ABDOMEN: Soft, nontender. No hepatosplenomegaly, normal bowel sounds, no guarding or rigidity. PEG tube in place EXTREMITIES: No clubbing, generalized edema no cyanosis, 2+ pulses and upper and lower extremities. Patient has black fingertips on his left hand MUSCULOSKELETAL: Muscle strength and tone normal. Right groin temporary hemodialysis catheter in place SPINE: No scoliosis or deformity SKIN: No rashes CENTRAL NERVOUS SYSTEM: Awake and alert, tachypneic, following simple commands, able to respond with blinking and able to squeeze hands on command trached to the ventilator No focal deficits, tone is normal in all 4 extremities. - Labs CBC & Chem 7: 08/05/20 06:08 08/05/20 06:08 Labs: Abnormal Lab Results - Last 24 Hours (Table) 08/04/20 08/04/20 08/04/20 Range/Units 11:27 12:00 12:10 WBC (3.8-10.6) k/uL RBC (4.30-5.90) m/uL Hgb (13.0-17.5) gm/dL Hct (39.0-53.0) % RDW (11.5-15.5) % Plt Count (150-450) k/uL PT 12.3 H (9.0-12.0) sec INR 1.2 H (<1.2) Fibrinogen 748 H (200-500) mg/dL ABG pH (7.35-7.45) ABG pCO2 (35-45) mmHg ABG pO2 (83-108) mmHg ABG Total CO2 (19-24) mmol/L ABG O2 Saturation (94-97) % Potassium (3.5-5.1) mmol/L BUN (9-20) mg/dL Creatinine (0.66-1.25) mg/dL Glucose (74-99) mg/dL POC Glucose (mg/dL) 131 H (75-99) mg/dL Calcium (8.4-10.2) mg/dL Coronavirus (PCR) Detected A (Not Detectd) 08/04/20 08/05/20 08/05/20 Range/Units 17:50 00:00 06:05 WBC (3.8-10.6) k/uL RBC (4.30-5.90) m/uL Hgb (13.0-17.5) gm/dL Hct (39.0-53.0) % RDW (11.5-15.5) % Plt Count (150-450) k/uL PT (9.0-12.0) sec INR (<1.2) Fibrinogen (200-500) mg/dL ABG pH (7.35-7.45) ABG pCO2 (35-45) mmHg ABG pO2 (83-108) mmHg ABG Total CO2 (19-24) mmol/L ABG O2 Saturation (94-97) % Potassium (3.5-5.1) mmol/L BUN (9-20) mg/dL Creatinine (0.66-1.25) mg/dL Glucose (74-99) mg/dL POC Glucose (mg/dL) 124 H 136 H 123 H (75-99) mg/dL Calcium (8.4-10.2) mg/dL Coronavirus (PCR) (Not Detectd) 08/05/20 08/05/20 08/05/20 Range/Units 06:08 06:08 06:16 WBC 14.1 H (3.8-10.6) k/uL RBC 2.22 L (4.30-5.90) m/uL Hgb 6.4 L* (13.0-17.5) gm/dL Hct 20.2 L (39.0-53.0) % RDW 16.7 H (11.5-15.5) % Plt Count 13 L* (150-450) k/uL PT (9.0-12.0) sec INR (<1.2) Fibrinogen (200-500) mg/dL ABG pH (7.35-7.45) ABG pCO2 (35-45) mmHg ABG pO2 (83-108) mmHg ABG Total CO2 (19-24) mmol/L ABG O2 Saturation (94-97) % Potassium 3.4 L (3.5-5.1) mmol/L BUN 108 H* (9-20) mg/dL Creatinine 2.74 H (0.66-1.25) mg/dL Glucose 109 H (74-99) mg/dL POC Glucose (mg/dL) 126 H (75-99) mg/dL Calcium 8.2 L (8.4-10.2) mg/dL Coronavirus (PCR) (Not Detectd) 08/05/20 Range/Units 08:50 WBC (3.8-10.6) k/uL RBC (4.30-5.90) m/uL Hgb (13.0-17.5) gm/dL Hct (39.0-53.0) % RDW (11.5-15.5) % Plt Count (150-450) k/uL PT (9.0-12.0) sec INR (<1.2) Fibrinogen (200-500) mg/dL ABG pH 7.50 H (7.35-7.45) ABG pCO2 31 L (35-45) mmHg ABG pO2 56 L* (83-108) mmHg ABG Total CO2 25 H (19-24) mmol/L ABG O2 Saturation 89.8 L (94-97) % Potassium (3.5-5.1) mmol/L BUN (9-20) mg/dL Creatinine (0.66-1.25) mg/dL Glucose (74-99) mg/dL POC Glucose (mg/dL) (75-99) mg/dL Calcium (8.4-10.2) mg/dL Coronavirus (PCR) (Not Detectd) Assessment and Plan Plan: Assessment: #1. Acute hypoxic respiratory failure secondary to COVID-19 pneumonia. Patient received toci and convalescent plasma., Patient is status post tracheostomy and PEG tube placement on 07/21/2020. #2. Pancytopenia, remains on Xarzio #3. Acute ischemic stroke, in right frontal region with mild petechial hemorrhage in the cortical ribbon. Most recent CAT scan from all 08/03/2020 shows evolving subacute hemorrhagic infarct in the right frontal lobe with no significant interval change #4. Acute kidney injury requiring dialysis, has required on and off dialysis #5. Altered mental status, related to toxic metabolic encephalopathy, severe, related to multiple organ dysfunction, pain and patient as follows simple command #6. Severe metabolic acidosis, improved and resolved after dialysis. #7. Hyperkalemia secondary to above, improved with hemodialysis #8. Benign essential hypertension. #9. Heparin-induced thrombocytopenia, patient was on Argatroban and Eliquis which are on hold right now #10. History of obstructive sleep apnea syndrome #11. Morbid obesity #12. Increased d-dimer related to COVID-19, patient was started on Eliquis which will be restarted after his surgical procedures #13. Plugged PEG tube, status post PEG tube revision on 07/26/2020 #15. Pancytopenia, likely related to sepsis, hematology is following, on Zarxio #16. Critical illness polyneuropathy, severe generalized weakness #18. Hypernatremia, diuretics are on hold, receiving free water flushes Plan: Continue VC plus mode of ventilation No pressure support trials Increase FiO2 to 40% Continue Precedex We'll restart patient's home medications including Abilify, Zoloft and we will add clonidine Dilaudid at 1 mg every 3 hours for pain Rebolus Precedex needed Nutritional support Mentation seems to be improving and patient is clearly following commands on today's exam Antibiotics per ID service recommendations, awaiting final cultures Fever pattern seems to have improved We'll transfuse with 1 unit of packed red blood cells and 1 unit of platelets Continue supportive care, patient's family was updated on his condition, we talked to his [id number] Cedrick who makes medical decisions Full code at this time Prognosis is guarded I performed a history & physical examination of the patient and discussed their management with my nurse practitioner, Nelia Conley. I reviewed the nurse practitioner's note and agree with the documented findings and plan of care. Lung sounds are positive for diminished breath sounds The findings and the impression was discussed with the patient. I attest to the documentation by the nurse practitioner. Time with Patient: Greater than 30
[2020-08-05] MEDS: PANTOPRAZOLE 40 MG/10 ML VIAL IVP SCH ×2 (10:08→20:25)
[2020-08-05] MEDS: metroNIDAZOLE 500 MG TAB PEG/G-TUBE SCH ×3 (10:09→22:21)
[2020-08-05] MEDS: CHOLESTYRAMINE (WITH SUGAR) 4 GM PACKET PO SCH ×2 (10:10→17:41)
--- NOTE | 2020-08-05 10:33 | P.PN ---
Subjective Progress Note Date: 08/05/20 Principal diagnosis: Covid pneumonia. Pancytopenia Physical examination of the patient deferred due to covid pneumonia, pt was visualized comfortably. Case reviewed with RN. Objective - Vital Signs Vital signs: Vital Signs Temp 99.3 F 08/05/20 08:00 Pulse 112 H 08/05/20 09:00 Resp 32 H 08/05/20 09:00 BP 155/108 08/05/20 09:00 Pulse Ox 92 L 08/05/20 09:00 Intake & Output 08/04/20 08/05/20 08/05/20 18:59 06:59 18:59 Intake Total 2134.060 2070.066 502.701 Output Total 1590 155 75 Balance 922.194 5006.066 427.701 Weight 101.8 kg 105 kg Intake: IV 70 450 150 0.9 Normal Saline 70 Sodium Chloride 0.45% 1, 450 150 000 ml @ 50 mls/hr IV . Q20H [facility] Rx#:[id number] Intake, IV Titration 724.060 275.066 7.701 Amount Anidulafungin 100 mg In 100 Sodium Chloride 0.9% 100 ml @ 84 mls/hr IVPB DAILY [facility] Rx#:[id number] Dexmedetomidine/0.9% NaCl 84.749 (Pmx) 400 mcg In Empty Bag 1 bag @ Titrate IV . Q0M [facility] Rx#:[id number] Dexmedetomidine/0.9% NaCl 116.330 92.299 7.701 (Pmx) 400 mcg In Empty Bag 1 bag @ Titrate IV . Q0M [facility] Rx#:[id number] Norepinephrine 8 mg In 22.981 132.767 Sodium Chloride 0.9% 250 ml @ 0.05 MCG/KG/MIN 9. 849 mls/hr IV .Q24H [facility] Rx#:[id number] Sodium Chloride 0.45% 1, 400 50 000 ml @ 50 mls/hr IV . Q20H [facility] Rx#:[id number] Tube Feeding 560 520 120 Other 780 825 225 Output: Urine 590 155 75 Hemodialysis 1000 Other: Voiding Method Indwelling Catheter Indwelling Catheter Indwelling Catheter ABP, PAP, CO, CI - Last Documented Arterial Blood Pressure 118/64 - Labs CBC & Chem 7: 08/05/20 06:08 08/05/20 06:08 Labs: Abnormal Lab Results - Last 24 Hours (Table) 08/04/20 08/04/20 08/04/20 Range/Units 11:27 12:00 12:10 WBC (3.8-10.6) k/uL RBC (4.30-5.90) m/uL Hgb (13.0-17.5) gm/dL Hct (39.0-53.0) % RDW (11.5-15.5) % Plt Count (150-450) k/uL PT 12.3 H (9.0-12.0) sec INR 1.2 H (<1.2) Fibrinogen 748 H (200-500) mg/dL ABG pH (7.35-7.45) ABG pCO2 (35-45) mmHg ABG pO2 (83-108) mmHg ABG Total CO2 (19-24) mmol/L ABG O2 Saturation (94-97) % Potassium (3.5-5.1) mmol/L BUN (9-20) mg/dL Creatinine (0.66-1.25) mg/dL Glucose (74-99) mg/dL POC Glucose (mg/dL) 131 H (75-99) mg/dL Calcium (8.4-10.2) mg/dL Coronavirus (PCR) Detected A (Not Detectd) Crossmatch 08/04/20 08/05/20 08/05/20 Range/Units 17:50 00:00 06:05 WBC (3.8-10.6) k/uL RBC (4.30-5.90) m/uL Hgb (13.0-17.5) gm/dL Hct (39.0-53.0) % RDW (11.5-15.5) % Plt Count (150-450) k/uL PT (9.0-12.0) sec INR (<1.2) Fibrinogen (200-500) mg/dL ABG pH (7.35-7.45) ABG pCO2 (35-45) mmHg ABG pO2 (83-108) mmHg ABG Total CO2 (19-24) mmol/L ABG O2 Saturation (94-97) % Potassium (3.5-5.1) mmol/L BUN (9-20) mg/dL Creatinine (0.66-1.25) mg/dL Glucose (74-99) mg/dL POC Glucose (mg/dL) 124 H 136 H 123 H (75-99) mg/dL Calcium (8.4-10.2) mg/dL Coronavirus (PCR) (Not Detectd) Crossmatch 08/05/20 08/05/20 08/05/20 Range/Units 06:08 06:08 06:16 WBC 14.1 H (3.8-10.6) k/uL RBC 2.22 L (4.30-5.90) m/uL Hgb 6.4 L* (13.0-17.5) gm/dL Hct 20.2 L (39.0-53.0) % RDW 16.7 H (11.5-15.5) % Plt Count 13 L* (150-450) k/uL PT (9.0-12.0) sec INR (<1.2) Fibrinogen (200-500) mg/dL ABG pH (7.35-7.45) ABG pCO2 (35-45) mmHg ABG pO2 (83-108) mmHg ABG Total CO2 (19-24) mmol/L ABG O2 Saturation (94-97) % Potassium 3.4 L (3.5-5.1) mmol/L BUN 108 H* (9-20) mg/dL Creatinine 2.74 H (0.66-1.25) mg/dL Glucose 109 H (74-99) mg/dL POC Glucose (mg/dL) 126 H (75-99) mg/dL Calcium 8.2 L (8.4-10.2) mg/dL Coronavirus (PCR) (Not Detectd) Crossmatch 08/05/20 08/05/20 Range/Units 08:50 08:56 WBC (3.8-10.6) k/uL RBC (4.30-5.90) m/uL Hgb (13.0-17.5) gm/dL Hct (39.0-53.0) % RDW (11.5-15.5) % Plt Count (150-450) k/uL PT (9.0-12.0) sec INR (<1.2) Fibrinogen (200-500) mg/dL ABG pH 7.50 H (7.35-7.45) ABG pCO2 31 L (35-45) mmHg ABG pO2 56 L* (83-108) mmHg ABG Total CO2 25 H (19-24) mmol/L ABG O2 Saturation 89.8 L (94-97) % Potassium (3.5-5.1) mmol/L BUN (9-20) mg/dL Creatinine (0.66-1.25) mg/dL Glucose (74-99) mg/dL POC Glucose (mg/dL) (75-99) mg/dL Calcium (8.4-10.2) mg/dL Coronavirus (PCR) (Not Detectd) Crossmatch See Detail Assessment and Plan (1) Pancytopenia Narrative/Plan: WBC/ANC adequate-GCSF was discontinued previously. Hemoglobin 6.4, 1 unit PRBCs ordered. Patient can be transfused if he is felt to be too symptomatic otherwise, transfuse for hemoglobin less than 7. Patient's platelets today are 13,000. Transfuse for platelets less than 10,000 or if patient is symptomatic. 300mg asa rectal was stopped previously for low plt. Coags/fibrinogen cont to be checked Patient has a superficial thrombosis, also recent hemorrhagic stroke. He is not a candidate for anticoagulation at this time. Hit antibody was negative. Cont CBC daily Pancytopenia workup is not going to be helpful in this acute case. Pending stability of the patient. Continue to monitor labs daily. Supportive care and treatment of underlying causes continues. Current Visit: Yes Status: Acute Priority: High Code(s): D61.818 - OTHER PANCYTOPENIA SNOMED Code(s): 747152756 Plan: attests: I have performed H&P, developed impression and plan of care for patient. Discussed with dictator. Agree with dictation, documented as a scribe.
[2020-08-05] MEDS: SERTRALINE 100 MG TAB PO SCH (11:21)
[2020-08-05 11:27] LABS: Glucose,Whole Blood 128 mg/dL (75-99)
[2020-08-05] MEDS: cloNIDine HCL 0.1 MG TAB PO SCH ×2 (11:33→20:25)
--- NOTE | 2020-08-05 11:43 | PN ---
PROGRESS NOTE DATE OF SERVICE: 08/05/2020 REASON FOR FOLLOWUP: UTI and trach site cellulitis and question of pneumonia. INTERVAL HISTORY: The patient had been running a low-grade fever of 100.3. The patient is hemodynamically stable. Blood pressure is on the high side. FiO2 is currently 25%. Still has significant secretions around the trach site, significant through the ET. No worsening diarrhea has been reported. Still has a fecal management system. No other changes. PHYSICAL EXAMINATION: Blood pressure 155/100 with a pulse of 112, temperature 99.3. He is 92% on 25% FiO2. General description is a middle-aged male lying in bed in no distress. RESPIRATORY SYSTEM: Unlabored breathing, decreased intensity of breath sounds. No wheeze. HEART: S1, S2. Regular rate and rhythm. ABDOMEN: Soft, no tenderness. LABS: Hemoglobin 6.4, white count 14.1, platelet count 13, BUN 108, creatinine is 2.74. The neck site is anaerobic gram-negative. Urine was Armida albicans. DIAGNOSTIC IMPRESSION AND PLAN: 1. Patient with catheter associated urinary tract infection with urine showing Armida albicans. The patient has completed his Eraxis therapy and discontinued. 2. The trach site cellulitis, has significant drainage. Culture predominantly anaerobes. The patient is covered with Flagyl. Cefepime discontinue by Pulmonary. We will monitor the patient closely. Continue supportive care. MMODL / IJN: [id number] /
--- NOTE | 2020-08-05 13:25 | P.PN ---
Subjective Progress Note Date: 08/05/20 CHIEF COMPLAINT: Shortness of breath HISTORY OF PRESENT ILLNESS: Patient currently in the ICU and on mechanical ventilation. He has been on the vent since 07/05/2020. He has acute hypoxic respiratory failure due to COVID-19 pneumonia. Patient is status post tracheostomy and PEG tube placement on 07/21/20. However, patient's PEG tube did get plugged. He is now status post PEG tube replacement on 07/26/2020. He is tolerating tube feedings. Patient has infection at tracheostomy site and is followed by ID. patient's hemoglobin is 6.4 he is receiving 1 unit of blood. He did have a temperature 100.3 WBC is 14.1 platelets are 13 Patient is following commands per nursing staff. Tracheostomy is currently showing no evidence of leak. PHYSICAL EXAM: VITAL SIGNS: Reviewed. GENERAL: Well-developed in no acute distress. HEENT: Head is atraumatic, normocephalic. Tracheostomy site with purulent drainage ABDOMEN: Soft. Nondistended. Nontender. PEG tube site clean dry and intact NEUROLOGIC: Intubated ASSESSMENT: 1. Acute hypoxic respiratory failure secondary to acute COVID-19 pneumonia with prolonged mechanical ventilation. Status post tracheostomy placement 2. Severe Protein calorie malnutrition status post PEG tube placement 3. Infection at tracheostomy site PLAN: -Continue PEG tube feedings -Continue ICU management -Continue supportive care -Antibiotics per ID Physician Furnace Repairer note has been reviewed by physician. Signing provider agrees with the documented findings, assessment, and plan of care. Objective - Vital Signs Vital signs: Vital Signs Temp 98.2 F 08/05/20 12:38 Pulse 107 H 08/05/20 12:38 Resp 31 H 08/05/20 12:38 BP 143/85 08/05/20 12:38 Pulse Ox 99 08/05/20 12:00 Intake & Output 08/04/20 08/05/20 08/05/20 18:59 06:59 18:59 Intake Total 2134.060 2070.066 1281.701 Output Total 1590 155 175 Balance 743.693 3288.066 1106.701 Weight 101.8 kg 105 kg Intake: IV 70 450 300 0.9 Normal Saline 70 Sodium Chloride 0.45% 1, 450 300 000 ml @ 50 mls/hr IV . Q20H [facility] Rx#:[id number] Intake, IV Titration 724.060 275.066 7.701 Amount Anidulafungin 100 mg In 100 Sodium Chloride 0.9% 100 ml @ 84 mls/hr IVPB DAILY [facility] Rx#:[id number] Dexmedetomidine/0.9% NaCl 84.749 (Pmx) 400 mcg In Empty Bag 1 bag @ Titrate IV . Q0M [facility] Rx#:[id number] Dexmedetomidine/0.9% NaCl 116.330 92.299 7.701 (Pmx) 400 mcg In Empty Bag 1 bag @ Titrate IV . Q0M [facility] Rx#:[id number] Norepinephrine 8 mg In 22.981 132.767 Sodium Chloride 0.9% 250 ml @ 0.05 MCG/KG/MIN 9. 849 mls/hr IV .Q24H [facility] Rx#:[id number] Sodium Chloride 0.45% 1, 400 50 000 ml @ 50 mls/hr IV . Q20H [facility] Rx#:[id number] Tube Feeding 560 520 240 Blood Product 284 Platelet Pheresis Acd-A 284 Pasc 2 Unit [id number] Rc Pheresis As-3 Unit 0 [id number] Other 780 825 450 Output: Urine 590 155 175 Hemodialysis 1000 Other: Voiding Method Indwelling Catheter Indwelling Catheter Indwelling Catheter ABP, PAP, CO, CI - Last Documented Arterial Blood Pressure 118/64 - Labs CBC & Chem 7: 08/05/20 06:08 08/05/20 06:08 Labs: Abnormal Lab Results - Last 24 Hours (Table) 08/04/20 08/04/20 08/05/20 Range/Units 12:10 17:50 00:00 WBC (3.8-10.6) k/uL RBC (4.30-5.90) m/uL Hgb (13.0-17.5) gm/dL Hct (39.0-53.0) % RDW (11.5-15.5) % Plt Count (150-450) k/uL ABG pH (7.35-7.45) ABG pCO2 (35-45) mmHg ABG pO2 (83-108) mmHg ABG Total CO2 (19-24) mmol/L ABG O2 Saturation (94-97) % Potassium (3.5-5.1) mmol/L BUN (9-20) mg/dL Creatinine (0.66-1.25) mg/dL Glucose (74-99) mg/dL POC Glucose (mg/dL) 124 H 136 H (75-99) mg/dL Calcium (8.4-10.2) mg/dL Coronavirus (PCR) Detected A (Not Detectd) Crossmatch 08/05/20 08/05/20 08/05/20 Range/Units 06:05 06:08 06:08 WBC 14.1 H (3.8-10.6) k/uL RBC 2.22 L (4.30-5.90) m/uL Hgb 6.4 L* (13.0-17.5) gm/dL Hct 20.2 L (39.0-53.0) % RDW 16.7 H (11.5-15.5) % Plt Count 13 L* (150-450) k/uL ABG pH (7.35-7.45) ABG pCO2 (35-45) mmHg ABG pO2 (83-108) mmHg ABG Total CO2 (19-24) mmol/L ABG O2 Saturation (94-97) % Potassium 3.4 L (3.5-5.1) mmol/L BUN 108 H* (9-20) mg/dL Creatinine 2.74 H (0.66-1.25) mg/dL Glucose 109 H (74-99) mg/dL POC Glucose (mg/dL) 123 H (75-99) mg/dL Calcium 8.2 L (8.4-10.2) mg/dL Coronavirus (PCR) (Not Detectd) Crossmatch 08/05/20 08/05/20 08/05/20 Range/Units 06:16 08:50 08:56 WBC (3.8-10.6) k/uL RBC (4.30-5.90) m/uL Hgb (13.0-17.5) gm/dL Hct (39.0-53.0) % RDW (11.5-15.5) % Plt Count (150-450) k/uL ABG pH 7.50 H (7.35-7.45) ABG pCO2 31 L (35-45) mmHg ABG pO2 56 L* (83-108) mmHg ABG Total CO2 25 H (19-24) mmol/L ABG O2 Saturation 89.8 L (94-97) % Potassium (3.5-5.1) mmol/L BUN (9-20) mg/dL Creatinine (0.66-1.25) mg/dL Glucose (74-99) mg/dL POC Glucose (mg/dL) 126 H (75-99) mg/dL Calcium (8.4-10.2) mg/dL Coronavirus (PCR) (Not Detectd) Crossmatch See Detail 08/05/20 Range/Units 11:25 WBC (3.8-10.6) k/uL RBC (4.30-5.90) m/uL Hgb (13.0-17.5) gm/dL Hct (39.0-53.0) % RDW (11.5-15.5) % Plt Count (150-450) k/uL ABG pH (7.35-7.45) ABG pCO2 (35-45) mmHg ABG pO2 (83-108) mmHg ABG Total CO2 (19-24) mmol/L ABG O2 Saturation (94-97) % Potassium (3.5-5.1) mmol/L BUN (9-20) mg/dL Creatinine (0.66-1.25) mg/dL Glucose (74-99) mg/dL POC Glucose (mg/dL) 128 H (75-99) mg/dL Calcium (8.4-10.2) mg/dL Coronavirus (PCR) (Not Detectd) Crossmatch
[2020-08-05] MEDS: clonazePAM 1 MG TAB PO SCH ×2 (14:18→20:25)
--- NOTE | 2020-08-05 14:29 | PN ---
PROGRESS NOTE Patient is seen for followup for acute kidney injury and volume overload. Patient's volume status has improved. He has been on dialysis initially during his hospitalization, but it was held as urine output had improved and serum creatinine had stabilized. However, last few days the patient's renal function has worsened again. His urine output has now dropped and his BUN was up to 165. The patient's mentation has been significantly impaired and therefore he was dialyzed yesterday to assess any improvement in mentation. This morning he may be slightly better. Patient is awake. He is moving all 4 extremities, but does not follow commands. PHYSICAL EXAMINATION: On examination today, blood pressure was 138/83, heart rate of 112 per minute, he is afebrile. Patient is not directly examined. Case is discussed with nursing staff. He remains on the vent. FiO2 is at 40%. Tolerating tube feeds. LABS: Labs are reviewed. Sodium 138, potassium 3.4, chloride 107, BUN 108, serum creatinine 2.74, calcium 8.2. Hemoglobin was 6.4 g/dL. ASSESSMENT: 1. Acute kidney injury, acute tubular necrosis, currently with decreased urine output, although still staying at about 30 to 10 mL an hour. The patient will be dialyzed again today. There is improvement in his labs with BUN down to 108 and creatinine at 2.74. The patient has a right IJ PermCath. 2. Anemia. Hemoglobin down to 6.4. No obvious bleeding noted. The patient will be transfused packed RBCs. 3. Hypokalemia. Will adjust her dialysis. 4. COVID pneumonia. 5. Acute hypoxic respiratory failure. 6. Heparin-induced thrombocytopenia. 7. Metabolic acidosis, now resolved. 8. Acute ischemic stroke in the right frontal region with no changes on subsequent CAT scan. 9. Status post trach and PEG. PLAN: Repeat hemodialysis today and in a.m. Continue with the Aranesp. Replace potassium. We will try goal of about 1 L again today. MMODL / IJN: [id number] /
[2020-08-05] MEDS: NOREPINEPHRINE 8 MG in SODIUM CHLORIDE 0.9% 250 ML IV SCH (17:34)
[2020-08-05 17:57] LABS: Glucose,Whole Blood 124 mg/dL (75-99)
[2020-08-05 18:18] LABS: Anisocytosis Slight; HCT 21.6 % (39.0-53.0); HGB 7.2 gm/dL (13.0-17.5); MCH 30.2 pg (25.0-35.0); MCHC 33.3 g/dL (31.0-37.0); MCV 90.8 fL (80.0-100.0); Mean Platelet Volume 7.9; RBC 2.38 m/uL (4.30-5.90); RDW 16.2 % (11.5-15.5); WBC 17.6 k/uL (3.8-10.6)
[2020-08-05 18:22] LABS: Platelet Count 31 k/uL (150-450)
[2020-08-05 18:31] LABS: Potassium 3.5 mmol/L (3.5-5.1)
[2020-08-05 18:34] LABS: Glucose,Whole Blood 113 mg/dL (75-99)
[2020-08-05] MEDS: ARIPiprazole 5 MG TAB PO SCH (22:21)
[2020-08-05 23:29] LABS: Glucose,Whole Blood 107 mg/dL (75-99)
[2020-08-06] MEDS: HYDROmorphone 1 MG/ML 1 ML SYRINGE IVP PRN ×2 (02:08→05:05)
[2020-08-06] MEDS: SODIUM CHLORIDE 0.45% 1,000 ML IV SCH ×2 (03:02→17:05)
[2020-08-06] MEDS: DEXMEDETOMIDINE/0.9% NACL(PMX) 400 MCG in EMPTY BAG 1 BAG IV SCH ×3 (04:13→22:23)
[2020-08-06 05:52] LABS: ABG Base Excess -4.1 mmol/L; ABG HCO3 22 mmol/L (21-25); ABG Oxygen Saturation 79.2 % (94-97); ABG PCO2 39 mmHg (35-45); ABG PH 7.35 (7.35-7.45); ABG TCO2 23 mmol/L (19-24); Allen Test Performed? Yes
[2020-08-06 05:56] LABS: ABG PO2 46 mmHg (83-108)
[2020-08-06] MEDS: INSULIN ASPART (NovoLOG) 100 UNIT/ML VIAL SQ SCH ×4 (06:15→18:45)
[2020-08-06 06:25] LABS: Glucose,Whole Blood 110 mg/dL (75-99)
[2020-08-06 07:08] LABS: Anisocytosis Slight; HCT 25.4 % (39.0-53.0); Hypochromasia Slight; MCH 28.9 pg (25.0-35.0); MCHC 31.5 g/dL (31.0-37.0); MCV 91.6 fL (80.0-100.0); Mean Platelet Volume 9.4; RBC 2.77 m/uL (4.30-5.90); RDW 16.3 % (11.5-15.5); WBC 26.6 k/uL (3.8-10.6)
[2020-08-06 07:09] LABS: Platelet Count 43 k/uL (150-450)
[2020-08-06 07:12] LABS: Albumin 2.3 g/dL (3.5-5.0); Calcium 8.3 mg/dL (8.4-10.2); Potassium 3.8 mmol/L (3.5-5.1); Total Bilirubin 1.6 mg/dL (0.2-1.3); Total Protein 4.6 g/dL (6.3-8.2)
[2020-08-06] MEDS: ALBUTEROL HFA INHALER INHALATION SCH ×3 (07:18→21:11)
[2020-08-06 07:39] LABS: Hepatitis B Surface AB- Quant 3.5 mIU/mL; Hepatitis B Surface Antibody Non-Reactive (Non-Reactive); Hepatitis B Surface Antigen Non-Reactive (Non-Reactive)
[2020-08-06 07:44] LABS: C Reactive Protein 15.4 mg/dL (<1.0)
--- NOTE | 2020-08-06 09:53 | P.PN ---
Subjective Progress Note Date: 08/06/20 The patient is seen today 07/12/2020 in follow-up in the intensive care unit. He remains intubated, sedated on the mechanical ventilator at assist control mode of a rate of 36, tidal volume 450, FiO2 40% and a PEEP of 10. Morning blood gases reveal pO2 of 69, pCO2 41, pH 7.35. He remains sedated on propofol at 60 mcg/kg/m, fentanyl at 1 mcg/kg/h, norepinephrine at 0.09 mcg/kg//min, the patient is currently on 0.9 saline at rate of 50 mL an hour. The patient has been off Nimbex since yesterday. He is continued on Argatroban at 0.5 mcg/kg/m. Being nourished with Nepro at 15 ML's per hour. He did receive hemodialysis yesterday with 1 L removed. Chest x-ray reveals mild bibasilar infiltrates. Sputum cultures positive for beta-hemolytic strep, group C. White count 18.1. Hemoglobin 10.6. Platelet count 141. D-dimer 19.69. Sodium 133. Potassium 4.7. Creatinine 4.14. LDH 1067, C-reactive protein 24. Remains on antibiotics in the form of ceftriaxone. Bronchodilators. Vitamin supplements. Dexamethasone. 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 The platelet count is stable and the platelet count is up to 136. On 07/12/2020, the patient is being seen for follow-up. The patient is a 59-year-old obese male patient with a BMI of 36.2 with known history of obstructive sleep apnea, presented with COVID 19 related pneumonia patient is currently intubated on a mechanical ventilator. The patient has been on a mechanical ventilator since 07/05/2020. 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 During the course of his treatment, the patient developed an acute kidney injury secondary to ATN secondary to "with 19 infection. Urine output was improving and the patient's urine output was in order of 20-25 mL an hour. Due to persistent hyperkalemia and worsening renal function, the patient was started on hemodialysis on 07/10/2020. The potassium level improved post-hemodialysis. The patient also had significant metabolic acidosis and the patient was given bicarb infusion. Electrolytes are being monitored. The patient got dialyzed yesterday and this was his second hemodialysis. Nephrology is on the case. He is currently on Decadron 6 mg IV every 24 hours. His chest x-ray is showing patchy by the pulmonary infiltrates in lower lobes, slightly worsening in the chest x-ray findings on today's evaluation mainly in the peripheries and ET tube is in a good location. The patient remains on a mechanical ventilator assist control mode. He is on Nepro at 60 mL an hour. 07/13/2020, I'm seeing this patient for a follow-up. This is a case of a 59-year-old male patient with Covid 19 related pneumonia and acute kidney injury currently on hemodialysis. Worn-out, the patient is sedated and this morning the patient is currently on propofol running at 6 60 mcg/kg per minute and fentanyl is running at 1 mcg/kg/h and this is the same sedation it was being provided yesterday. The patient is on no paralytics for now. The patient is on a mechanical ventilator, on this morning's evaluation, he is on assist-control at the rate of 28 with a tidal volume of 450 and FiO2 of 50% and PEEP is 10. Blood gases from today showing a pH of 7.37 with a pCO2 of 47 and pO2 of 63. Chest x-ray from today is showing diffuse bilateral pulmonary infiltrates more so in the lower lobes bilaterally. ET tube is in a good location. Comparing this chest x-ray from yesterday, there is no major interval change in the findings are essentially stable. His peak airway pressures 28. His static pressures 24. The patient is is still on Decadron 6 mg IV every 24 hours. D- dimer today's at 13.3, his LDH level is at 1021 and the CRP is at 4.6. Note that his inflammatory markers essentially compatible to yesterday. His echoes at 13.7 with a hemoglobin of 9.2. Platelet count is 112. I took the patient off Agratoban and he was also placed on Eliquis at a dose of 5 mg by mouth twice a day. Noted the patient also is an acute kidney injury. The patient underwent dialysis and the spot he has taken 3 sessions of hemodialysis. He is producing urine output in the order of 20-30 mL an hour. His last session of hemodialysis was yesterday. In terms of his electrolytes, his BUN is at 80 with a creatinine of 3.5 and a sodium of 132 with a potassium of 4.4. He is currently on enteral feeding for dizziness support and is currently on Nepro at the rate of 50 mL an hour. He is currently off Rocephin. He is afebrile. He is requiring low-dose pressors were norepinephrine 30 dose of 0.03 mcg/kg per minute. Otherwise, no other significant events. He is afebrile. Sedation holiday was not done yesterday. IV fluids are running at 0.9 at the rate of 50 mL an hour. 07/14/2020, patient is being seen for follow-up. Sedated and still on a mechanical ventilator, probable resolving. 60 mcg/kg per minute and the patient is also on fentanyl at 1 mcg/kg/h. Adequately sedated. On a mechanical ventilator essentially vent settings being at tidal volume of 450 with an FiO2 of 50% and a PEEP of 10 and a rate of 28. These are essentially the same settings as yesterday. As far as blood gases, pO2 is at 79 with a pCO2 of 45 and a pH is at 7.35. He d-dimer is at 9.42 and the rest of the inflammatory markers show an LDH of 1062 which is stable compared to yesterday and a CRP of 87, slightly elevated compared to yesterday. His CPK is down to 231. His pro calcitonin level was at 0.58 and note that the patient has dialysis-dependent renal failure. As far as his creatinine, his creatinine today is at 3.97 with a mean of 96. He did not receive dialysis yesterday. His urine output is in order of 30-40 mL an hour and the fluid balance has been +1.1 L over the past 24 hours. His chest x-ray from today is showing lower lobe pulmonary infiltrates, essentially stable compared to yesterday. ET tube remains in excellent location. IV fluids are running at 20 cc an hour of normal saline. He is afebrile. He is tolerating his enteral feeding for nutritional support. Nore pinephrine infusion which is running at 0.05 mcg/kg per minute. He remains on Decadron 6 mg IV every 24 , platelet count is stable at 121 and 11 avoiding heparin. Patient holiday yesterday was ultimately aborted as the patient became quite agitated after several hours without any meaningful neurological response. 07/15/2020, the patient is being seen for a follow-up. Sedated with propofol running at 60 mcg/kg per minute and fentanyl is at 1 mcg/kg/h and the level of sedation essentially the same as yesterday. Remains on a mechanical ventilator. He is an assist-control mode at the rate of 24 with a tidal volume of 450 and a PEEP of 8 with a FiO2 of 50%. He had a blood gas showing pH of 7.33 with a pCO2 of 46 and pO2 of 73. Chest x-ray is unchanged, probably slightly worse on the left in terms of that the patient is seeing on today's chest x-ray. ET tube remains in a good location. Inflammatory markers from today show a d-dimer of 9 with a LDH level of 1061 and a CRP of 78, comparable to yesterday. His pro calcitonin level was low. He got dialyzed yesterday. I attempted to wean down the PEEP to 6 and this was not successful and the patient desaturated in the PEEP was brought back up to 8 yesterday. Meanwhile, he is afebrile. He is producing urine output in the order of 20-30 mL an hour. He is on normal saline at the rate of 20 mL an hour. He remains on Decadron 6 mg IV to 24 hours. His platelet count is 132 which is essentially stable and improved compared to yesterday. In terms of pressors, the patient is currently on norepinephrine infusion at 0.04 mcg/kg per minute. I will today's condition essentially unchanged and his condition essentially the same as compared to yesterday 07/16/2020, remains on a mechanical ventilator on propofol at the rate of 60 mcg/kg per minute and fentanyl is at 2 mcg/kg/h. He remains off paralytics. At around 6:00 this morning, the patient had some oxygen desaturation. Based on that, I increased his FiO2 up to 60%. Currently is an assist-control mode rate of 28 with a tidal volume of 450 and a PEEP of 8 chest x-ray still showing diffuse bilateral pulmonary infiltrates left more than right. The blood gas shows a pH of 7.31 with a pCO2 of 45 and pO2 of 68. This was on FiO2 of 70%. Inflammatory markers show a d-dimer of 9.9 with a LDH level of 1103 and a CRP level of 62. The patient is on Decadron 6 mg IV every 24 hours. The patient is also on anticoagulation with Eliquis 2.5 mg by mouth twice a day. His platelet counts is 135. The chest x-ray findings are obviously worse and there is some worsening in the evaluation in the right lung compared to yesterday. Note that the patient did not get dialyzed yesterday. Today is a dialysis day for him. He is also on norepinephrine infusion running at 0.08 mcg/kg per minute. There is enough to maintain his blood pressure. He is receiving enteral feeding for discharge support and currently is on Nepro at a rate of 50 mL an hour which is currently at goal. No other significant events. Is adequately sedated for now. 07/17/2020, the patient is being seen for a follow-up. This morning he is on a combination of propofol and fentanyl running at 60 mics for propofol and 1 g for fentanyl. He was given a sedation holiday and she was able to tolerate initiated subsequently he decompensated and became hypoxic and he had to be placed back on sedation. Noted the patient became asynchronous. This morning, he is back on a mechanical ventilator mode at the rate of 28 with a tidal volume of 450 and her FiO2 is at 60% with a PEEP of 8. He underwent dialysis yesterday with a total of 2 liters of ultrafiltration. Note that he was able to tolerated dialysis without any major issues. He is on a minimal dose of norepinephrine infusion running at 0.06 mcg/kg per minute for blood pressure control. On today's evaluation, peak air pressures around 27. The blood gases from today shows a pH of 7.29 with a pCO2 of 40 and pO2 of 99 and this was on FiO2 of 60%. As mentioned, his PEEP is at 8. Chest x-ray still showing diffuse breath and pulmonary infiltrates unchanged without any major interval improvement or worsening. White cell count is at 50 with a hemoglobin of 8.2. Creatinine is at 3.4 and a urine output is in order of 30 mL an hour. No plans for hemodialysis today. He is receiving enteral feeding for nutritional support with Nepro at the rate of 50 mL an hour. He is stooling. Still sedation dependent. Unable to wean him off sedation because of a 6 and mean oxygen desaturations. I have approach the and the family with a possibility of ainsertion of a tracheostomy tube and a PEG tube for prolonged need of mechani alon ventilation and failure for weaning. The patient has been intubated since 07/05/2020. The inflammatory markers from today shows an LDH level of 889, CRP is at 6 and the d-dimer is at 6.05. The patient has palpable pulses in his left upper extremity. She of his fingers are necrotic and the tip including the index, the platelet counts are stable and the patient is currently on Eliquis 2.5 mg by mouth twice a day. Or 2020, the patient remains sedated with a combination of propofol and fentanyl running at 50 mcg/kg per minute for propofol and 1 mcg/kg per hour for fentanyl. He is sedated. In fact is deeply sedated. We are going to proceed with a sedation holiday on this patient today. He remains on a mechanical ventilator. He remains on a assist-control rate of 28, tidal volume of 450, FiO2 of 50% with a PEEP of 8. Attempts to wean the PEEP further failed and the patient became more hypoxic. As such, the patient is living At 8. This patient is a 7.26 with a pCO2 of 48 and pO2 of 71 today's blood gas. His chest x-ray showing stable bilateral pulmonary infiltrates essentially involving the lower lobes. ET tube is in a good location. Note that the patient is producing urine output in the order of 8200 mL an hour. His net fluid balance over the past 24 hours has been -83 mL. He has had a with a positive fluid balance for today. The findings on the case. The intent of the dialysis 3 times a week. His last dialysis was done on Sunday which is 2 days ago. His creatinine is up to 3.7 with a BUN of 84. Rest of the electrolytes are normal. Affect is running a lower sodium level of 1:30 with a potassium level of 4.1. Serum bicarbs at 20. In terms of his COVID-19 related pneumonia, the patient has a LDH level of 855, CRP level of 5.2 and his most recent d-dimer is at 5.4. He remains on steroids and he is on Decadron 6 mg IV every 24 hours. He did have a component of hit syndrome. This was related to heparin. He did receive Agratroban was ultima tely discontinued once the patient's stated count picked up and it's platelet count is currently at 129. He does have necrotic fingers in his left upper extremity. Adequate pulses in the radial. No new vascular insults noted on today's examination. He is receiving enteral feeding for nutritional support and is currently on Nepro at the rate of 10 mL an hour. He is stooling. He is on Rocephin for strep in history of the blood cultures on 2 separate occasions. Otherwise, the blood cultures positive for coagulase-negative staph. Patient was reevaluated today on 07/19/2020, remains intubated and mechanically ventilated, he is off sedation and he is not showing any signs of neurological not responding to any stimuli. Patient is on assist control rate of 24th of volume 450 FiO2 50% and PEEP of 6. ABG showed a pO2 of 81 pCO2 41 pH of 7.31 patient is on enteral feeding. And he may undergo dialysis. We plan to have a tracheostomy and PEG tube placement in this patient, and he is basically a failure to wean. Today the sedation is placed on hold. Chest x-ray continues to show bilateral pulmonary infiltrates involving lower lobes. Endotracheal tube is in the proper position. Patient is making good urine, however his renal functioning seems to be getting worse. Electrolytes are normal. BUN is 91 creatinine 4.51 LDH is 893 liver enzymes are borderline elevated, C-reactive pr otein is 4.2 d-dimer 6.68. WBC count is 9.1 hemoglobin is 8.9 On 07/20/2020 patient seen in follow-up in intensive care unit, he was given daily traction of sedation yesterday, and his sedation was on hold for several hours and the patient never woke up over open his eyes or follow any commands, a nd as the day went on he started breathing fast, started desaturated and get agitated and was he was placed back on sedation on which she remains today, currently on Diprivan at 40 mics per kilo per minute, and fentanyl infusion at 1 mics per kilo per minute, and levo fed has been discontinued, he is on assist- control mode of ventilation with assist control rate of 24, tidal volumes of 450, FiO2 of 50% and PEEP of 6, this morning's blood gas shows pO2 of 92, pCO2 42, and pH is 7.32. He is in sinus mechanism, slightly tachycardic, his tube feedings are currently on hold in case of possibility of tracheostomy and PEG tube insertion however were still awaiting a response from his family on the decision in regards to proceeding with trach and PEG placement, today he is receiving hemodialysis treatment, and a 3 L in fluid was removed today. In terms of urine output he has been making urine in the order of 50-70 ML per hour, he remains on Lasix 80 mg twice daily, he remains on Rocephin for evidence of a beta-hemolytic strep in the sputum cultures, his follow-up sputum culture only showed Armida. History of resting comfortably in bed, he remains on IV dexamethasone 6 mg daily, has been off the levofed. Breasts labs have been reviewed, his white blood cell count is 8.1, hemoglobin is 8.1, his platelet count is 126, d-dimer is 13.3, sodium is 133, potassium 3.7, his renal function is relatively stable, with BUN of 82, and creatinine 4.51. These LDH is 792, CRP is 48. His had no acute events overnight, we spoke to his daughter yesterday in regards to patient's condition, and to discuss tracheostomy and PEG tube insertion, awaiting response from the family on their decision and the daughter indicated that patient had poor quality of life to start with and the were not sure if the workup and consent to the trach and PEG On 07/21/2000 patient seen in follow-up in the intensive care unit, yesterday he tolerated 11 hours of sedation holiday, and he was starting to follow simple commands, however is that day went on he was becoming more agitated and tachypneic, and he was placed back on sedation, currently on Diprivan at 40 mics per kilo per minute, and 0.9 at KVO, he remains intubated, on assist control mode of ventilation, with a rate of 24, Tylox 450, FiO2 of 50% and PEEP of 6, this morning's blood gases show pO2 133, pCO2 of 41, and pH is 7.38. Patient is resting comfortably, appears to be in no acute distress, he is not on any vasoactive drugs, no vasopressors, she is in sinus rhythm sinus tach with a rate of 90-106 BPM, hemodialysis treatment this morning, and attended have liters of fluid was taken off, his vital signs have been stable overnight, no fever or chills, lung sounds are diminished. She also remains on IV Lasix 80 mg twice daily, patient is producing urine in the order of 30-60 ML per hour, and she is in -4.1 L over the last 24 hours with additional -2.49 fluid balance since midnight last night. Chest x-ray shows interval improvement in bilateral airspace infiltrates particularly within the right upper lobe. Today's labs have been reviewed, showing white blood cell count 7.1, hemoglobin of 7.4, platelet count is 120, sodium is 130, potassium is 3.2, chloride is 104, CO2 of 23, BUN of 75 and creatinine of 4.01. Patient remains on Rocephin for beta- hemolytic strep in the sputum, repeat culture of the sputum showed only Armida. He is tolerating tube feedings which are on hold for tracheostomy and PEG tube placement which is scheduled for today. On 07/22/2020 patient seen in follow-up in intensive care unit, he remains sedated and trach to the ventilator, on assist-control mode of ventilation with a rate of 24, her lungs were 50, FiO2 50% and PEEP of 6, his blood gas shows pO2 of 169, pCO2 40, pH of 7.36, patient is currently on Diprivan at 55 mics per kilo per minute, he is on 0.9 normal saline at 10 ML per hour, Levophed that he is at 0.02 mics per kilo per minute. Patient is having hemodialysis treatment right now. Patient received tracheostomy and PEG tube yesterday. His hemodialysis access was switched to right subclavian approach. He still has a central line in his groin which will need to be switched to a PICC line. Today's chest x-ray showed bilateral multifocal and confluent opacities cons istent with COVID-19 infection with no significant interval change. Vital signs have been stable, his sat 98% on the above mentioned settings, requiring small dose of Levafed. 2 feedings will be started sometime today, he is on Rocephin for evidence of 5 beta-hemolytic strep in the sputum, follow-up sputum culture only showed Armida albicans. She had no acute events overnight. He remains on Decadron 6 mg daily, he is Eliquis will be started tonight if it's okay with surgery. No other acute events overnight, and -2.4 L fluid balance over the last 24 hours. He does remains generally swollen. On 07/23/2020 patient seen in follow-up, in the intensive care unit, patient received tracheostomy and PEG tube insertion on 07/21/2020, he remains trached to the ventilator and is currently on assist control mode of ventilation with a rate of 24, tacrolimus 450, FiO2 45% and PEEP of 5, this morning's blood gas shows pO2 of 149, pCO2 of 43, and pH of 7.39, he was given a sedation holiday yesterday, however he did not wake up or start following commands, neurology completed a brain CT which showed decreased attenuation within the high right frontal lobe without cortical increased attenuation which could reflect petechial hemorrhage, patient is currently not on any anticoagulation, is Natalia mary has been on hold since 07/19/2020 at 11:00 in the morning. His hemoglobin today 7.4, his platelet count is 115, his d-dimer is currently is 8.18 on this morning's labs. Patient is not on any aspirin, or Plavix or any other anticoagulants. Patient was resedated he is currently on 35 mics per kilo per minute of Diprivan, and 0.9 and is infusing at KVO, no other infusions. Hemodynamically he has remained stable, he is in sinus rhythm sinus tachycardia on the monitor, this morning his PEG tube became plugged when the crushed oral medications were being instilled through the PEG tube, surgery was notified, and the PEG tube was removed, NG tube will be inserted, however no tube feedings or oral medications are to be put down the NG tube at this point. Patient remains on Rocephin for evidence of beta-hemolytic strep in the sputum, yesterday his central line was discontinued and the tip was sent for culture and the culture is pending at this time, however overnight has been no fever, his vital signs have remained stable. He had hemodialysis on 07/21/2020 with removal of 2.5 L in fluids. Today's labs show sodium of 136, potassium 3.5, chloride is 104, CO2 is 22, BUN 54, and creatinine is 2.6, his renal profile is improving, and patient remains on IV Lasix 80 mg twice daily, he is producing urine in the order of 35-60 ML per hour. No other acute events overnight, neurology is following, and is to comment on the findings of the CT of the brain. Today's chest x-ray shows continued diffuse bilateral groundglass airspace disease/pulmonary edema, with continue small effusions with adjacent atelectasis. LDH is down to 640, and CRP is 5.6 On 07/24/2020 patient seen in follow-up in the intensive care unit, he remains trached to the ventilator on assist control mode of ventilation with a rate of 24, tidal is 450, FiO2 of 45% and PEEP of 5, this morning's blood gas shows pO2 of 150; pCO2 40, pH of 7.4, and FiO2 was dropped down to 40% based on the above mentioned blood gases, IV fluids are 0.9 normal saline at a rate of 10 ML per hour, and TPN is infusing at 30 ML per hour, not on any vasopressor support, and patient has been off sedation since yesterday morning, were told by the nursing staff that at times he was noted to be attempting to wiggle toes on command. Remains quite lethargic right now, she is not opening eyes to voice, he is not following commands, he is very weak. Chest x-ray today shows diffuse bilateral infiltrates. Tracheostomy hemodialysis catheter appear to be in appropriate positions, NG tube has been inserted yesterday, and peg tube was discontinued, and surgeries plan on replacing the PEG tube on Sunday. Neurology is following, patient has no signs of obvious seizure activity, he does have cough and a gag reflex. But remains very obtunded, today's labs have been reviewed, showing white blood cell count of 4.1, hemoglobin of 7.4, electrolytes were within normal limits, BUN is 68, and creatinine is 3.54. Patient remains on IV Lasix 80 mg twice daily, is in -856 over the last 24 hours, he is tolerating tube feedings, no diarrhea noted. Yesterday his d-dimer came back at 8.18. Patient remains off Eliquis, and he received 300 mg of rectal aspirin per neurology. His most recent brain CT showed previously noted area of subarachnoid hemorrhage associated with abnormal hypodensity posterior laterally in the right frontal lobe was again noted, not significantly changed. Neurology thinks patient has suffered acute ischemic stroke with a small right frontal region with mild petechial hemorrhage in the cortical ribbon On 07/26/2020 patient seen in follow-up in the intensive care unit, he remains trached to the ventilator, assist control mode of ventilation with a rate of 20 with tidal volumes were 450, FiO2 of 40% and PEEP of 5, displays blood gas shows pO2 of 122, pCO2 of 43, and pH of 7.42. He is 1.9 normal seen at 10 mL an hour, TPN is a 55 ML per hour, Cleviprex is a 7 mg per hour. He has been off Diprivan and for several days now, he just has a morphine sulfate for discomfort on as needed basis, he is waking up to touch and sometimes he follows simple commands, but he is extremely weak and unable to squeeze with his hands on command. His tube feedings have been on hold and he is supposed to have a PEG tube reinserted today, NG tube is in place to low intermittent suction a total of 450 ML of gas tric drainage in the last 24 hours, urine output has been in the order of 100- 200 ML per hour. He remains on IV Lasix at 80 mg every 12 hours, he is maintaining negative fluid balance of 1.5 L over the last 24 hours. Has been afebrile. Today's chest x-ray shows persistent but improving infiltrates throughout both lung palafox. Today's labs show white blood cell count of 1.1, hemoglobin of 8.4, d-dimer is 11.69, patient has remained off anticoagulation for the PEG tube reinsertion today, sodium is 142, potassium is 4.2, chloride is 102, BUN is 90, creatinine is 3.54, AST is 72, ALT is 82. He is on IV Rocephin for evidence of beta-hemolytic strep in the sputum, and central line catheter ti p was positive for Armida albicans. Patient has had no fever or chills. Partially patient has suffered an acute stroke with small subarachnoid hemorrhage, cardiology has been consulted for possibility if AGNIESZKA, which cardiology felt was not needed at this time. No other acute events overnight, no fever or chills, patient has not been able to receive his oral medications for high blood pressure, and has required Cleviprex. On 07/27/2020 patient seen in follow-up in intensive care unit, patient is trached to the ventilator with assist control mode of ventilation with a rate of 24, tidal volume was 450, FiO2 30% and PEEP of 5, no blood gases were done today, overnight he developed a fever with a temp of 101.9F, and today's blood work is down trending white count, neutropenia white blood cell count is 0.6, hemoglobin is 8.2, platelet count is 148, and there is a suspicion of possibility of fungal infection, and patient was started on Eraxis yesterday. New blood cultures and urine cultures have been sent, BMP shows a sodium of 140, potassium is 5.2, BUN of 103, and creatinine of 3.66, his inflammatory markers have been reviewed, and LDH is now within normal limits at 559, and CRP is 14.9. His central line catheter tip was positive for Armida albicans, his sputum back on 07/08/2020 was positive for beta-hemolytic strep. Urine culture is currently pending, ID service is following. Patient had a new PEG tube placed on 07/26/2020 he continues on TPN for nutritional support, anticipate restarting his tube feedings this afternoon if cleared by surgery. On 07/28/2020 patient seen in follow-up in the intensive care unit. Remains trached to the ventilator, on assist control mode of ventilation with a rate of 24, tacrolimus 450, FiO2 30%, and PEEP of 5, no new blood gases today. Today's chest x-ray showing stable portable chest, and no change in bibasilar opacities. Patient has remained off sedation, and he started to follow some simple commands, however his severe generally weak, he is unable to squeeze with his hands, he opens eyes to voice, withdraws from painful stimuli. today's labs reviewed showing white blood cell, 0.2, hemoglobin is 6.5, platelet count is 108, patient is pancytopenic, 1 unit of blood will be transfused today, sodium is 144, potassium is 4.4, chloride is 108, BUN of 119, creatinine is 3.9. No obvious source of bleeding at this time. Cultures have been sent, patient is currently on Eraxis for Armida albicans on the central line catheter tip, sputum. Patient remains on Rocephin for streptococcal pneumonia. He was febrile in the last 24 hours with a T-max of 101.3F. He continues on IV Lasix, he is making urine in order of 100-120 ML per hour. Is on Nepro for nutritional support at 36 with a goal of 36 On 07/29/2020 patient seen in follow-up in the intensive care unit. Patient remains trached to the ventilator, with assist control mode of ventilation rate of 24, Tylenol is 450, FiO2 of 30%, and PEEP of 5. Patient's blood gas shows pO2 of 94, pCO2 of 39, and pH of 7.43, he is on 0.9 normal saline at 10 in the per hour, no other drips, and he is receiving nutritional support in the form of Nepro at 36 with a goal of 36 and 60 mL of water flushes every 4 hours per nephrology. He remains lethargic, generally weak. Per nursing staff patient is at times squeezing her finger on command. Brain CT was repeated showing evolving subacute hemorrhagic infarct in the right frontal lobe with no significant interval change, no new acute intracranial hemorrhage or midline shift. We restarted the patient on prophylactic anticoagulation in the form of Lovenox yesterday, today's labs have been reviewed, d-dimer is 3.83, white count is 0.2, hemoglobin is 7.0, platelet count is 142, sodium is 148, potassium is 3.8, and patient's renal function has worsened, and the Lasix is now on hold, free water flushes were increased by nephrology. Patient continues on Eraxis, and urine culture from 07/26/2020 showed Armida albicans, repeat urine culture has been sent, blood culture from 07/26/2020 showed no growth, final culture is pending. he has been afebrile. Rocephin has been discontinued, infectious disease has been consulted On 07/31/2020 patient seen in follow-up in intensive care unit, he opens eyes to voice, he turns had to voice, but unable to squeeze hands on command and follow command. He remains very generally weak, and continues to be somewhat encephalopathic although his level of consciousness has improved. He remains trached to the ventilator, with assist control mode of ventilation and the rate of 24, tidal vital was 450, FiO2 of 30% and PEEP of 5, this morning's blood gas shows pO2 of 104, pCO2 37, and pH of 7.44. This was done on FiO2 of 30%, yesterday he tolerated per support trial for about 5 hours, and was flipped back to assist control mode of ventilation related to respiratory fatigue. This morning he is maintaining O2 saturations at or above 96-98%, appears very comfortable, and we will proceed with another trial of pressure-support ventilation. He is currently on 0.9 normal saline at 5 ML per hour, no other drips, he is not on any sedatives or narcotics, he is currently on Eraxis, and cefepime. ID service is following. His urine culture was positive for Armida albicans, and he had previously had beta-hemolytic streptococcus in his sputum. Repeat sputum culture was sent on 07/29/2020, and preliminary Gram stain shows many gram-positive cocci, moderate gram-positive bacilli, and a few gram- negative bacilli. Tracheostomy site was also cultured, and preliminary Gram stain shows many gram-positive cocci, many gram-positive bacilli, and many gram- negative bacilli. Today's labs have been reviewed, white blood cell, 0.2, hemoglobin is 7.0, platelet count is 89, his sodium remains elevated at 148, and nephrology is following and patient is receiving tube feedings in the form of Nepro at 36 ML per hour, with 75 ML of free water flushes every 1 hour. His c hloride is 112, BUN is 152, and creatinine is 4.07. His renal function slightly worse than yesterday, his liver enzymes show improvement in his AST, slightly increased ALT and relatively stable alkaline phosphatase, his pro-calcitonin level from yesterday was at 1.39. His urinalysis from 07/28/2020 shows possibility of urinary tract infection. His urine output is in the order of 75- 125 ML per hour, has been nonoliguric, no diarrhea. He is tolerating tube feedings. Does have some generalized swelling. We restarted patient's prophylactic Lovenox with hematology clearance, hematology is following and patient is currently on Zarxio On 08/01/2020 patient seen in follow-up in intensive care unit, yesterday he'll tolerated 30 minutes of pressure-support according to the nursing staff, became fatigued, and placed on assist-control mode of ventilation on which she remains this morning, with a rate of 24, tidal volume is 450, FiO2 of 30% and PEEP of 5. Patient is awake and alert, he closed his eyes on command, he has however very weak and unable to squeeze hands on command, and unable to wiggle toes. He is currently on D5W at a rate of 75 ML per hour, no other drips, he is on nutrit ional support in the form of Nepro at 36 with a goal of 36 and free water flushes of 75 ML per hour per nephrology. Today's blood gas has been reviewed showing pO2 of 121, pCO2 of 35, and pH of 7.44, this was done on FiO2 of 30%, there is the blood work has been reviewed showing white blood cell, 0.3, hemoglobin of 7.4, platelet count is 58, sodium is 145, potassium 4.0, chloride is 111, CO2 is 21, BUN of 156, creatinine is 3.46, his liver enzymes continue to worsen. His last pro-calcitonin from 07/30/2020 remains elevated at 1.39. Patient has been on Eraxis and cefepime, ID service is following, last urinalysis from 07/20/2020 showed urinary tract infection, urine cultures are positive for Armida. Patient continues on Lovenox at 30 mg daily, he is also on Zarxio for pancytopenia On 08/04/2000 patient seen in follow-up in the intensive care unit, he remains trached the ventilator, on VC plus mode of admission, with a rate of 24, tidal volume 500, FiO2 of 25% and PEEP of 5. No new blood gas today, today's chest x- ray shows stable appearance of patchy bibasilar infiltrates. Patient is currently on 0.9 normal saline at a rate of 20 ML per hour, and Precedex was started yesterday and is currently infusing a rate of 0.7 mics per kilo per hour. Receiving nutritional support in the form of Nepro at 36 with a goal of 36 and free water flushes of 75 ML per hour per nephrology recommendations, today's labs have been reviewed including white blood cell count up to 7.9, hemoglobin is 7.2, platelet count is 15, patient received 1 unit of platelets yesterday, serum sodium today is 146, potassium is 3.9, chloride is 114, CO2 is 19, B1 is 165, creatinine is 3.15. His AST is improving and is down to 78, ALT is 191, alkaline phosphatase is 206. He has completed 7 days of the Eraxis. And he currently remains on Flagyl per ID service recommendations, his neck wound cultures are showing anaerobic gram-negative bacilli, final culture is pending. he completed 7 days of the Eraxis for candidal urinary tract infection. Continues to be febrile with a temp of 10 1F. Patient is tachycardic in sinus mechanism, the rate of 120 BPM. Patient is less responsive on today's exam, however he is tachypneic, and he is tracheostomy is positional and As noted to be leaking. But not significantly losing volume. His Lasix was placed on hold, his urine output significantly declined in the order of 30-50 ML per hour, he appears to be very edematous in general, and today he will have a hemodialysis treatment On 08/05/2020 patient seen in follow-up on medical- surgical floor, he is currently on VC+ plus mode of elevation with a rate of 24, Tylenol -500, FiO2 of 25% and PEEP of 5, this morning's blood gas reveals pO2 of 55.6, pCO2 of 31, and pH is 7.5. Patient is tachypneic, using accessory muscles of breathing, she was tried on pressure control of ventilation, but also did not appear comfortable, and was placed back on his original settings with the volume control plus mode of ventilation, her O2 was increased to 40%. Patient seems to be more alert, and following simple commands, he is blinking his eyes to yesterday no questions, and he is able to squeeze on command with his hands. The last 24 hours is 100.3, currently on Flagyl, cefepime and Eraxis were discontinued. Trach site cultures are showing anaerobic gram-negative bacilli, final culture is pending. White blood cell count is 14.1, hemoglobin is 6.4 on today's labs, platelet count is 13, sodium is 138, potassium is 3.4, chloride is 107, BUN of 108, and creatinine is 2.74. Patient underwent hemodialysis yesterday with removal of 1 L of fluid. Overnight his urine output is in the order of 10-35 ML per hour. Transfusion with 1 unit of packed red blood cells is pending for today, and we will order 1 unit of Platelets as well. he remains on Nepro at goal for nutritional support. 2020, the patient essentially the same condition. He is still struggling with his breathing. He seems to be having labored breathing and he is also tachypneic while on a mechanical ventilator. To control his breathing status, the patient was restarted back on some degree of sedation she is currently on Precedex which is running at 0.6 mcg/kg per minute. This has settled some of his agitation and restlessness. I have also restarted the patient on Zoloft 100 mg by mouth daily, Abilify 5 mg by mouth twice a day and he was also started on clonazepam 1 mg by mouth twice a day for anxiety and restlessness and agitation. While on the mechanical ventilator, he continues to be quite tachypneic and using abdominal muscles of breathing. He is currently on a VC mode and currently he is on a rate of 24 with a tidal volume of 400 and FiO2 of 40% and a PEEP of 5. Morning blood gases showed a degree of hypoxemia with a pCO2 of 39 and a pO2 of 46 with a pH of 7.35. Based on that, I increased his FiO2 up to 80% and his current saturation is around 96%. I dropped him down to 60% accordingly. He is having some this secretions around his tracheostomy stoma. Cultures were taken and is obviously polymicrobial. Infectious diseases on the case and the patient was given Flagyl. He is afebrile. He is on no pressors at this point in time. He underwent dialysis yesterday and a total of 1.5 L of ultrafiltration was done. He was able to tolerate that without any major difficulties. Urine output currently is in order of 40-50 mL an hour. The patient will not receive hemodialysis today. In terms of his neurologic function is, I got to the point where I was able to elicit some response of the patient. He was able to squeeze my fingers using his hand and he was able to blink upon demand and raises eyebrows. As such, I thought that the patient is conscious and there is some ongoing neurologic function based on yesterday's evaluation. However on today's evaluation, he is on Precedex and is not following any commands. His CAT scan of the brain at shown a hemorrhagic stroke that has been stable. Meanwhile, from the hematologic standpoint, the patient is having issues with thrombocytopenia. He is also having issues with anemia. He is bleeding from his mucosal membranes of his mouth and no reported GI bleeds. He was given a platelet transfusion and the platelet count came back at 31. Awaiting follow-up levels from today. Hemoglobin stable at 8 and a white cell count is at 26 and the G-CSF was discontinued. His d-dimer is at 4.84 and his electrolytes are normal, creatinine is at 2.1, liver function tests are slightly elevated and he does have a component of transaminitis, CRP level today's at 15.4. Enteral feeding for nutritional support through Nepro currently running at 40cc/hr fecal management system. Stool for C. diff has been checked and is also negative. Objective - Vital Signs Vital signs: Vital Signs Temp 98.8 F 08/06/20 04:00 Pulse 123 H 08/06/20 07:00 Resp 33 H 08/06/20 07:00 BP 101/63 08/06/20 07:00 Pulse Ox 94 L 08/06/20 07:00 Intake & Output 08/05/20 08/06/20 08/06/20 18:59 06:59 18:59 Intake Total 2450.597 1937.599 Output Total 1850 405 Balance 458.346 6522.599 Weight 106.8 kg Intake: IV 600 600 Sodium Chloride 0.45% 1, 600 600 000 ml @ 50 mls/hr IV . Q20H PRAFUL Rx#:[id number] Intake, IV Titration 17.597 24.599 Amount Dexmedetomidine/0.9% NaCl 17.597 24.599 (Pmx) 400 mcg In Empty Bag 1 bag @ Titrate IV . Q0M PRAFUL Rx#:[id number] Norepinephrine 8 mg In 0 Sodium Chloride 0.9% 250 ml @ 0.05 MCG/KG/MIN 9. 849 mls/hr IV .Q24H PRAFUL Rx#:[id number] Tube Feeding 520 488 Blood Product 563 Platelet Pheresis Acd-A 284 Pasc 2 Unit [id number] Rc Pheresis As-3 Unit 279 [id number] Other 750 825 Output: Urine 350 405 Hemodialysis 1500 Other: Voiding Method Indwelling Catheter Indwelling Catheter ABP, PAP, CO, CI - Last Documented Arterial Blood Pressure 118/64 - Exam GENERAL EXAM: Awake and alert, morbidly obese 59-year-old white male, trached to the ventilator, on volume-control mode of ventilation with a 60% PEEP of 5, tachypneic, using abdominal muscles of respiration, following simple command, he is able to blink eyes on commands and squeeze with his hands on command, he is on Precedex at 0.6 mics per kilo per minute generalized weakness comfortable in no apparent distress. Blinking eyes "yes" when asked if he is hurting yesterday and I was unable to elicit the same response today from the patient. HEAD: Normocephalic/atraumatic. EYES: Normal reaction of pupils, equal size. Conjunctiva pink, sclera white. NOSE: Clear with pink turbinates. THROAT: No erythema or exudates. NECK: No masses, no JVD, no thyroid enlargement, no adenopathy. Midline tracheostomy connected to the ventilator, this brownish colored draining from around the trach tube site CHEST: No chest wall deformity. Symmetrical expansion. Right subclavian permacath in place and patient is receiving hemodialysis LUNGS: Equal air entry with no crackles, wheeze, rhonchi or dullness. CVS: Regular rate and rhythm, normal S1 and S2, no gallops, no murmurs, no rubs ABDOMEN: Soft, nontender. No hepatosplenomegaly, normal bowel sounds, no guarding or rigidity. PEG tube in place EXTREMITIES: No clubbing, generalized edema no cyanosis, 2+ pulses and upper and lower extremities. Patient has black fingertips on his left hand MUSCULOSKELETAL: Muscle strength and tone normal. Right groin temporary hemodialysis catheter in place SPINE: No scoliosis or deformity SKIN: No rashes CENTRAL NERVOUS SYSTEM: Awake and alert, tachypneic, following simple commands, able to respond with blinking and able to squeeze hands on command trached to the ventilator No focal deficits, tone is normal in all 4 extremities. On to day's evaluation, he is less responsive and obviously is not following any commands. Response was obtained yesterday. - Labs CBC & Chem 7: 08/06/20 06:39 08/06/20 06:39 Labs: Abnormal Lab Results - Last 24 Hours (Table) 08/05/20 08/05/20 08/05/20 Range/Units 08:56 11:25 17:56 WBC (3.8-10.6) k/uL RBC (4.30-5.90) m/uL Hgb (13.0-17.5) gm/dL Hct (39.0-53.0) % RDW (11.5-15.5) % Plt Count (150-450) k/uL D-Dimer (<0.60) mg/L FEU ABG pO2 (83-108) mmHg ABG O2 Saturation (94-97) % Sodium (137-145) mmol/L Chloride (98-107) mmol/L Carbon Dioxide (22-30) mmol/L BUN (9-20) mg/dL Creatinine (0.66-1.25) mg/dL Glucose (74-99) mg/dL POC Glucose (mg/dL) 128 H 124 H (75-99) mg/dL Calcium (8.4-10.2) mg/dL Total Bilirubin (0.2-1.3) mg/dL AST (17-59) U/L ALT (4-49) U/L Alkaline Phosphatase (38-126) U/L Creatine Kinase (55-170) U/L C-Reactive Protein (<1.0) mg/dL Total Protein (6.3-8.2) g/dL Albumin (3.5-5.0) g/dL Crossmatch See Detail 08/05/20 08/05/20 08/05/20 Range/Units 18:14 18:14 18:33 WBC 17.6 H (3.8-10.6) k/uL RBC 2.38 L (4.30-5.90) m/uL Hgb 7.2 L (13.0-17.5) gm/dL Hct 21.6 L (39.0-53.0) % RDW 16.2 H (11.5-15.5) % Plt Count 31 L D (150-450) k/uL D-Dimer (<0.60) mg/L FEU ABG pO2 (83-108) mmHg ABG O2 Saturation (94-97) % Sodium 136 L (137-145) mmol/L Chloride 109 H (98-107) mmol/L Carbon Dioxide 21 L (22-30) mmol/L BUN 56 H (9-20) mg/dL Creatinine 1.80 H (0.66-1.25) mg/dL Glucose 113 H (74-99) mg/dL POC Glucose (mg/dL) 113 H (75-99) mg/dL Calcium 8.0 L (8.4-10.2) mg/dL Total Bilirubin (0.2-1.3) mg/dL AST (17-59) U/L ALT (4-49) U/L Alkaline Phosphatase (38-126) U/L Creatine Kinase (55-170) U/L C-Reactive Protein (<1.0) mg/dL Total Protein (6.3-8.2) g/dL Albumin (3.5-5.0) g/dL Crossmatch 08/05/20 08/06/20 08/06/20 Range/Units 23:28 05:45 06:23 WBC (3.8-10.6) k/uL RBC (4.30-5.90) m/uL Hgb (13.0-17.5) gm/dL Hct (39.0-53.0) % RDW (11.5-15.5) % Plt Count (150-450) k/uL D-Dimer (<0.60) mg/L FEU ABG pO2 46 L* (83-108) mmHg ABG O2 Saturation 79.2 L (94-97) % Sodium (137-145) mmol/L Chloride (98-107) mmol/L Carbon Dioxide (22-30) mmol/L BUN (9-20) mg/dL Creatinine (0.66-1.25) mg/dL Glucose (74-99) mg/dL POC Glucose (mg/dL) 107 H 110 H (75-99) mg/dL Calcium (8.4-10.2) mg/dL Total Bilirubin (0.2-1.3) mg/dL AST (17-59) U/L ALT (4-49) U/L Alkaline Phosphatase (38-126) U/L Creatine Kinase (55-170) U/L C-Reactive Protein (<1.0) mg/dL Total Protein (6.3-8.2) g/dL Albumin (3.5-5.0) g/dL Crossmatch 08/06/20 08/06/20 08/06/20 Range/Units 06:39 06:39 06:39 WBC 26.6 H (3.8-10.6) k/uL RBC 2.77 L (4.30-5.90) m/uL Hgb 8.0 L (13.0-17.5) gm/dL Hct 25.4 L (39.0-53.0) % RDW 16.3 H (11.5-15.5) % Plt Count (150-450) k/uL D-Dimer 4.84 H (<0.60) mg/L FEU ABG pO2 (83-108) mmHg ABG O2 Saturation (94-97) % Sodium (137-145) mmol/L Chloride 108 H (98-107) mmol/L Carbon Dioxide 21 L (22-30) mmol/L BUN 69 H (9-20) mg/dL Creatinine 2.15 H (0.66-1.25) mg/dL Glucose 115 H (74-99) mg/dL POC Glucose (mg/dL) (75-99) mg/dL Calcium 8.3 L (8.4-10.2) mg/dL Total Bilirubin 1.6 H (0.2-1.3) mg/dL AST 65 H (17-59) U/L ALT 111 H (4-49) U/L Alkaline Phosphatase 249 H (38-126) U/L Creatine Kinase 23 L (55-170) U/L C-Reactive Protein 15.4 H (<1.0) mg/dL Total Protein 4.6 L (6.3-8.2) g/dL Albumin 2.3 L (3.5-5.0) g/dL Crossmatch Assessment and Plan Plan: #1. Acute hypoxic respiratory failure secondary to COVID-19 pneumonia. Patient received toci and convalescent plasma., Patient is status post tracheostomy and PEG tube placement on 07/21/2020. She remains on a mechanical ventilator. Remains tachypneic. Exact cause is not clear. Could be neurologic. He is still requiring high minute ventilation. Chest x-ray findings are unchanged. Blood gases was noted and FiO2 is being titrated to maintain saturation above 90%. The cultures from his tracheostomy stoma is polymicrobial and obviously this was an external drainage was collected around the stoma. He is currently on Flagyl per ID. #2. Pancytopenia, the white cell count improved. Platelet counts are still low. The patient has chronic stable hemoglobin dropped. #3. Acute ischemic stroke, in right frontal region with mild petechial hemorrhage in the cortical region. Most recent CAT scan from all 08/03/2020 shows evolving subacute hemorrhagic infarct in the right frontal lobe with no significant interval change is having fluctuations mental status and currently because of increased restlessness or agitation is on a combination of clonazepam #4. Acute kidney injury requiring dialysis, has required on and off dialysis last dialysis was yesterday. #5. Altered mental status, related to toxic metabolic encephalopathy, severe, related to multiple organ dysfunction, pain and patient as follows simple command #6. Severe metabolic acidosis, improved and resolved after dialysis. #7. Hyperkalemia secondary to above, improved with hemodialysis #8. Benign essential hypertension. #9. Heparin-induced thrombocytopenia, patient was on Argatroban and Eliquis which are on hold right now #10. History of obstructive sleep apnea syndrome #11. Morbid obesity #12. Increased d-dimer related to COVID-19, patient was started on Eliquis which will be restarted after his surgical procedures #13. Plugged PEG tube, status post PEG tube revision on 07/26/2020 #15. Was a membrane bleeding #16. Critical illness polyneuropathy, severe generalized weakness #18. Hypernatremia, recovered Plan: Continue VC plus mode of ventilation No pressure support trials Titrate FiO2 as tolerated Continue Precedex Restarted home medications including Abilify, Zoloft and we will add clonazapam Dilaudid at 1 mg every 3 hours for pain Continue Precedex needed Nutritional support Antibiotics per ID service recommendations, awaiting final cultures Overall prognosis remains quite guarded and poor Code status to be addressed again Continue supportive care, family to be updated daily Critical care time 35 minutes Time with Patient: Greater than 30
[2020-08-06 11:15] LABS: Band Neutrophils % 4 %; Lymphocytes # (M) 2.39 k/uL (1.0-4.8); Metamyelocytes % 3 %; Monocytes # (M) 1.86 k/uL (0-1.0); Myelocytes # (M) 1.06 k/uL (0); Myelocytes % 4 %; Neutrophils % (M) 75 %; Nucleated Red Blood Cells 0 /100 WBC (0-0); Total Cells Counted 200
--- NOTE | 2020-08-06 11:27 | P.PN ---
Subjective Progress Note Date: 08/06/20 CHIEF COMPLAINT: Shortness of breath HISTORY OF PRESENT ILLNESS: Patient currently in the ICU and on mechanical ventilation. He has been on the vent since 07/05/2020. He has acute hypoxic respiratory failure due to COVID-19 pneumonia. Patient is status post tracheostomy and PEG tube placement on 07/21/20. However, patient's PEG tube did get plugged. He is now status post PEG tube replacement on 07/26/2020. He is tolerating tube feedings. Patient has infection at tracheostomy site and is followed by ID. patient received 1 unit of packed red blood cells for hemoglobin of 6.4 and platelets for platelet count of 13. Afebrile. WBC 26.6 hemoglobin 8 platelets 43 patient continues to have some drainage from the tracheostomy site Patient seen and examined with Dr. orona PHYSICAL EXAM: VITAL SIGNS: Reviewed. GENERAL: Well-developed in no acute distress. HEENT: Head is atraumatic, normocephalic. Tracheostomy site with purulent drainage ABDOMEN: Soft. Nondistended. Nontender. PEG tube site clean dry and intact NEUROLOGIC: Intubated ASSESSMENT: 1. Acute hypoxic respiratory failure secondary to acute COVID-19 pneumonia with prolonged mechanical ventilation. Status post tracheostomy placement 2. Severe Protein calorie malnutrition status post PEG tube placement 3. Infection at tracheostomy site PLAN: -Continue PEG tube feedings -Continue ICU management -Continue supportive care -Antibiotics per ID Physician Thermal Technician note has been reviewed by physician. Signing provider agrees with the documented findings, assessment, and plan of care. Objective - Vital Signs Vital signs: Vital Signs Temp 98.8 F 08/06/20 04:00 Pulse 123 H 08/06/20 07:00 Resp 33 H 08/06/20 07:00 BP 101/63 08/06/20 07:00 Pulse Ox 94 L 08/06/20 07:00 Intake & Output 08/05/20 08/06/20 08/06/20 18:59 06:59 18:59 Intake Total 2450.597 1937.599 Output Total 1850 405 Balance 591.659 5184.599 Weight 106.8 kg Intake: IV 600 600 Sodium Chloride 0.45% 1, 600 600 000 ml @ 50 mls/hr IV . Q20H [facility] Rx#:[id number] Intake, IV Titration 17.597 24.599 Amount Dexmedetomidine/0.9% NaCl 17.597 24.599 (Pmx) 400 mcg In Empty Bag 1 bag @ Titrate IV . Q0M [facility] Rx#:[id number] Norepinephrine 8 mg In 0 Sodium Chloride 0.9% 250 ml @ 0.05 MCG/KG/MIN 9. 849 mls/hr IV .Q24H [facility] Rx#:[id number] Tube Feeding 520 488 Blood Product 563 Platelet Pheresis Acd-A 284 Pasc 2 Unit [id number] Rc Pheresis As-3 Unit 279 [id number] Other 750 825 Output: Urine 350 405 Hemodialysis 1500 Other: Voiding Method Indwelling Catheter Indwelling Catheter ABP, PAP, CO, CI - Last Documented Arterial Blood Pressure 118/64 - Labs CBC & Chem 7: 08/06/20 06:39 08/06/20 06:39 Labs: Abnormal Lab Results - Last 24 Hours (Table) 08/05/20 08/05/20 08/05/20 Range/Units 08:56 11:25 17:56 WBC (3.8-10.6) k/uL RBC (4.30-5.90) m/uL Hgb (13.0-17.5) gm/dL Hct (39.0-53.0) % RDW (11.5-15.5) % Plt Count (150-450) k/uL Neutrophils # (Manual) (1.3-7.7) k/uL Monocytes # (Manual) (0-1.0) k/uL Metamyelocytes # (Man) (0) k/uL Myelocytes # (Manual) (0) k/uL D-Dimer (<0.60) mg/L FEU ABG pO2 (83-108) mmHg ABG O2 Saturation (94-97) % Sodium (137-145) mmol/L Chloride (98-107) mmol/L Carbon Dioxide (22-30) mmol/L BUN (9-20) mg/dL Creatinine (0.66-1.25) mg/dL Glucose (74-99) mg/dL POC Glucose (mg/dL) 128 H 124 H (75-99) mg/dL Calcium (8.4-10.2) mg/dL Total Bilirubin (0.2-1.3) mg/dL AST (17-59) U/L ALT (4-49) U/L Alkaline Phosphatase (38-126) U/L Creatine Kinase (55-170) U/L C-Reactive Protein (<1.0) mg/dL Total Protein (6.3-8.2) g/dL Albumin (3.5-5.0) g/dL Crossmatch See Detail 08/05/20 08/05/20 08/05/20 Range/Units 18:14 18:14 18:33 WBC 17.6 H (3.8-10.6) k/uL RBC 2.38 L (4.30-5.90) m/uL Hgb 7.2 L (13.0-17.5) gm/dL Hct 21.6 L (39.0-53.0) % RDW 16.2 H (11.5-15.5) % Plt Count 31 L D (150-450) k/uL Neutrophils # (Manual) (1.3-7.7) k/uL Monocytes # (Manual) (0-1.0) k/uL Metamyelocytes # (Man) (0) k/uL Myelocytes # (Manual) (0) k/uL D-Dimer (<0.60) mg/L FEU ABG pO2 (83-108) mmHg ABG O2 Saturation (94-97) % Sodium 136 L (137-145) mmol/L Chloride 109 H (98-107) mmol/L Carbon Dioxide 21 L (22-30) mmol/L BUN 56 H (9-20) mg/dL Creatinine 1.80 H (0.66-1.25) mg/dL Glucose 113 H (74-99) mg/dL POC Glucose (mg/dL) 113 H (75-99) mg/dL Calcium 8.0 L (8.4-10.2) mg/dL Total Bilirubin (0.2-1.3) mg/dL AST (17-59) U/L ALT (4-49) U/L Alkaline Phosphatase (38-126) U/L Creatine Kinase (55-170) U/L C-Reactive Protein (<1.0) mg/dL Total Protein (6.3-8.2) g/dL Albumin (3.5-5.0) g/dL Crossmatch 08/05/20 08/06/20 08/06/20 Range/Units 23:28 05:45 06:23 WBC (3.8-10.6) k/uL RBC (4.30-5.90) m/uL Hgb (13.0-17.5) gm/dL Hct (39.0-53.0) % RDW (11.5-15.5) % Plt Count (150-450) k/uL Neutrophils # (Manual) (1.3-7.7) k/uL Monocytes # (Manual) (0-1.0) k/uL Metamyelocytes # (Man) (0) k/uL Myelocytes # (Manual) (0) k/uL D-Dimer (<0.60) mg/L FEU ABG pO2 46 L* (83-108) mmHg ABG O2 Saturation 79.2 L (94-97) % Sodium (137-145) mmol/L Chloride (98-107) mmol/L Carbon Dioxide (22-30) mmol/L BUN (9-20) mg/dL Creatinine (0.66-1.25) mg/dL Glucose (74-99) mg/dL POC Glucose (mg/dL) 107 H 110 H (75-99) mg/dL Calcium (8.4-10.2) mg/dL Total Bilirubin (0.2-1.3) mg/dL AST (17-59) U/L ALT (4-49) U/L Alkaline Phosphatase (38-126) U/L Creatine Kinase (55-170) U/L C-Reactive Protein (<1.0) mg/dL Total Protein (6.3-8.2) g/dL Albumin (3.5-5.0) g/dL Crossmatch 08/06/20 08/06/20 08/06/20 Range/Units 06:39 06:39 06:39 WBC 26.6 H (3.8-10.6) k/uL RBC 2.77 L (4.30-5.90) m/uL Hgb 8.0 L (13.0-17.5) gm/dL Hct 25.4 L (39.0-53.0) % RDW 16.3 H (11.5-15.5) % Plt Count 43 L (150-450) k/uL Neutrophils # (Manual) 21.00 H (1.3-7.7) k/uL Monocytes # (Manual) 1.86 H (0-1.0) k/uL Metamyelocytes # (Man) 0.80 H (0) k/uL Myelocytes # (Manual) 1.06 H (0) k/uL D-Dimer 4.84 H (<0.60) mg/L FEU ABG pO2 (83-108) mmHg ABG O2 Saturation (94-97) % Sodium (137-145) mmol/L Chloride 108 H (98-107) mmol/L Carbon Dioxide 21 L (22-30) mmol/L BUN 69 H (9-20) mg/dL Creatinine 2.15 H (0.66-1.25) mg/dL Glucose 115 H (74-99) mg/dL POC Glucose (mg/dL) (75-99) mg/dL Calcium 8.3 L (8.4-10.2) mg/dL Total Bilirubin 1.6 H (0.2-1.3) mg/dL AST 65 H (17-59) U/L ALT 111 H (4-49) U/L Alkaline Phosphatase 249 H (38-126) U/L Creatine Kinase 23 L (55-170) U/L C-Reactive Protein 15.4 H (<1.0) mg/dL Total Protein 4.6 L (6.3-8.2) g/dL Albumin 2.3 L (3.5-5.0) g/dL Crossmatch
[2020-08-06 11:39] LABS: Glucose,Whole Blood 119 mg/dL (75-99)
[2020-08-06] MEDS: metroNIDAZOLE 500 MG TAB PEG/G-TUBE SCH ×3 (12:00→21:17)
[2020-08-06] MEDS: clonazePAM 1 MG TAB PO SCH ×2 (12:00→21:17)
[2020-08-06] MEDS: ARIPiprazole 5 MG TAB PO SCH ×2 (12:01→21:17)
[2020-08-06] MEDS: MAG HYDROX/AL HYDROX/SIMETH 30 ML, diphenhydrAMINE ELIXIR 75 MG, NYSTATIN 100,000 UNIT/... PO SCH ×9 (12:01→21:44)
[2020-08-06] MEDS: SERTRALINE 100 MG TAB PO SCH (12:01)
[2020-08-06] MEDS: PANTOPRAZOLE 40 MG/10 ML VIAL IVP SCH ×2 (12:01→21:17)
[2020-08-06] MEDS: ACETAMINOPHEN IV (For NPO) 1,000 MG in EMPTY BAG 1 BAG IVPB SCH ×2 (12:02→15:27)
[2020-08-06] MEDS: CHOLESTYRAMINE (WITH SUGAR) 4 GM PACKET PO SCH ×2 (12:02→16:58)
[2020-08-06] MEDS: NOREPINEPHRINE 8 MG in SODIUM CHLORIDE 0.9% 250 ML IV SCH (12:03)
[2020-08-06 12:38] VITALS: BMI 31.9
--- NOTE | 2020-08-06 13:24 | PN ---
PROGRESS NOTE Patient is seen for followup for acute kidney injury. Currently maintained on dialysis. The patient's urine output has been roughly at about 30-40 mL an hour. He had come off dialysis during his hospitalization and his last treatment was around 07/22/2020 and subsequently renal function had worsened again with BUN as high as 166 with significant encephalopathy and therefore patient was restarted on dialysis. His blood pressure has been on the lower side. He is currently receiving IV fluids. It was mostly for possible underlying uremia. Mentation has improved to some degree, although not significantly improved. The patient has had 2 consecutive treatments thus far. We will hold off on dialysis today and plan for a treatment tomorrow. The patient was started on Levophed yesterday after his treatment. He continues to have fair urine output. Serum creatinine is at 2.1 and BUN is decreased to 69. PHYSICAL EXAMINATION: On examination today, patient is on the vent. He does not respond much. Examination of the lower extremities shows no significant edema. Abdomen is soft, nontender. INTERNET MARKETING DIRECTOR exam cannot be performed. LABS: Labs show sodium 138, potassium 3.8, chloride 108, BUN 69, creatinine 2.15, hemoglobin 8.0. ASSESSMENT: 1. Acute kidney injury, acute tubular necrosis. The patient was initially on dialysis during his earlier hospitalization and he was able to come off dialysis with last treatment being on 07/21/2020. Subsequently, he was restarted on dialysis on 08/04/2020 due to worsening renal function and encephalopathy. The patient has had 2 consecutive treatments. His numbers have improved and his blood pressure is currently on the lower side. He is maintained on IV fluids. Urine output is maintained at 35-40 mL an hour and I will hold off on dialysis today and we will plan for a treatment tomorrow. 2. Acute hypoxic respiratory failure secondary to COVID pneumonia, status post trach and PEG. 3. Hypokalemia, status post replacement. 4. Acute ischemic stroke in the right frontal region with no new changes on repeat CT scan. 5. Metabolic acidosis, now resolved. 6. Heparin-induced thrombocytopenia, status post argatroban, Eliquis, currently on hold. 7. Hypernatremia, currently improved. PLAN: Hold dialysis today. We will plan for dialysis tomorrow. No significant ultrafiltration. Continue with the IV fluids for now. Decrease free water flushes to 100 q.12 hours. MMODL / IJN: [id number] /
[2020-08-06] MEDS ORDERED: ACETAMINOPHEN IV (For NPO) 1,000 MG in EMPTY BAG 1 BAG IVPB PRN (15:27)
--- NOTE | 2020-08-06 16:05 | PN ---
PROGRESS NOTE DATE OF SERVICE: 08/06/2020. REASON FOR FOLLOWUP: 1. Urinary tract infection. 2. Trach site cellulitis. INTERVAL HISTORY: The patient did spike another fever this morning of 101.5 degrees Fahrenheit. The patient is hemodynamically stable. FiO2 is currently 60%. He did have some secretions around the trach site and no worsening diarrhea has been reported by nursing staff. PHYSICAL EXAMINATION: Blood pressure 120/80 with a pulse of 115, temperature of 101.5 axillary. He is 94% on 60% FiO2. General description is a middle-aged male intubated on the vent. RESPIRATORY SYSTEM: Unlabored breathing, coarse breath sounds bilaterally. HEART: S1, S2. Regular rate and rhythm. ABDOMEN: Soft, no tenderness. LABS: Hemoglobin 8, white count 26.6. BUN of 69, creatinine 2.15. DIAGNOSTIC IMPRESSION AND PLAN: 1. Patient with sepsis and did have a fever, elevated white count, significant output through the trach site. He did have multiple sputum culture has been negative. In view of the new fever, cultures will be repeated. Will restart the patient on cefepime pending culture report and continue with Flagyl. 2. Patient with urinary tract infection that has been adequately treated. Overall prognosis remains to be guarded. MMODL / IJN: [id number] /
[2020-08-06 17:51] LABS: Amorphous Sediment,Urine Few /hpf; Appearance,Urine Cloudy (Clear); Bacteria,Urine Rare /hpf; Bilirubin,Urine Negative (Negative); Blood,Urine Moderate (Negative); Color,Urine Yellow; Glucose,Urine (UA) Negative (Negative); Ketones,Urine Negative (Negative); Leukocyte Esterase,Urine Trace (Negative); Mucus,Urine Rare /hpf; Nitrite,Urine Negative (Negative); Protein,Urine 1+ (Negative); RBC,Urine 17 /hpf (0-5); Specific Gravity,Urine 1.012 (1.001-1.035); Squamous Epithelial Cell,Urine 1 /hpf (0-4); Urobilinogen,Urine <2.0 mg/dL (<2.0); WBC,Urine 2 /hpf (0-5)
[2020-08-06] MEDS ORDERED: SODIUM CHLORIDE 0.9% 1,000 ML IV SCH (18:00)
[2020-08-06] MEDS: CEFEPIME 2 GM in SODIUM CHLORIDE 0.9% 100 ML IVPB SCH (18:11)
[2020-08-06 18:41] LABS: Glucose,Whole Blood 119 mg/dL (75-99)
--- NOTE | 2020-08-06 19:25 | P.PN ---
Subjective Progress Note Date: 08/06/20 Principal diagnosis: Pancytopenia Patient is now No Code Objective - Vital Signs Vital signs: Vital Signs Temp 99.5 F 08/06/20 16:00 Pulse 109 H 08/06/20 18:00 Resp 27 H 08/06/20 18:00 BP 131/80 08/06/20 18:00 Pulse Ox 91 L 08/06/20 18:00 Intake & Output 08/05/20 08/06/20 08/06/20 18:59 06:59 18:59 Intake Total 2450.597 1937.599 473.404 Output Total 1850 405 270 Balance 785.488 6451.599 203.404 Weight 106.8 kg 106.8 kg Intake: IV 600 600 450 Sodium Chloride 0.45% 1, 600 600 450 000 ml @ 50 mls/hr IV . Q20H [facility] Rx#:[id number] Intake, IV Titration 17.597 24.599 23.404 Amount Dexmedetomidine/0.9% NaCl 17.597 24.599 23.404 (Pmx) 400 mcg In Empty Bag 1 bag @ Titrate IV . Q0M [facility] Rx#:[id number] Norepinephrine 8 mg In 0 Sodium Chloride 0.9% 250 ml @ 0.05 MCG/KG/MIN 9. 849 mls/hr IV .Q24H [facility] Rx#:[id number] Tube Feeding 520 488 Blood Product 563 Platelet Pheresis Acd-A 284 Pasc 2 Unit [id number] Rc Pheresis As-3 Unit 279 [id number] Other 750 825 Output: Urine 350 405 270 Hemodialysis 1500 Other: Voiding Method Indwelling Catheter Indwelling Catheter Indwelling Catheter ABP, PAP, CO, CI - Last Documented Arterial Blood Pressure 118/64 - Exam Trach to ventilator Critically ill Multiple areas of eccymosis/lines Catheter with urine Peg tube CDI Ext: Edema - Labs CBC & Chem 7: 08/06/20 06:39 08/06/20 06:39 Labs: Abnormal Lab Results - Last 24 Hours (Table) 08/05/20 08/06/20 08/06/20 Range/Units 23:28 05:45 06:23 WBC (3.8-10.6) k/uL RBC (4.30-5.90) m/uL Hgb (13.0-17.5) gm/dL Hct (39.0-53.0) % RDW (11.5-15.5) % Plt Count (150-450) k/uL Neutrophils # (Manual) (1.3-7.7) k/uL Monocytes # (Manual) (0-1.0) k/uL Metamyelocytes # (Man) (0) k/uL Myelocytes # (Manual) (0) k/uL D-Dimer (<0.60) mg/L FEU ABG pO2 46 L* (83-108) mmHg ABG O2 Saturation 79.2 L (94-97) % Chloride (98-107) mmol/L Carbon Dioxide (22-30) mmol/L BUN (9-20) mg/dL Creatinine (0.66-1.25) mg/dL Glucose (74-99) mg/dL POC Glucose (mg/dL) 107 H 110 H (75-99) mg/dL Calcium (8.4-10.2) mg/dL Total Bilirubin (0.2-1.3) mg/dL AST (17-59) U/L ALT (4-49) U/L Alkaline Phosphatase (38-126) U/L Creatine Kinase (55-170) U/L C-Reactive Protein (<1.0) mg/dL Total Protein (6.3-8.2) g/dL Albumin (3.5-5.0) g/dL Urine Protein (Negative) Urine Blood (Negative) Ur Leukocyte Esterase (Negative) Urine RBC (0-5) /hpf Amorphous Sediment (None) /hpf Urine Bacteria (None) /hpf Urine Mucus (None) /hpf 08/06/20 08/06/20 08/06/20 Range/Units 06:39 06:39 06:39 WBC 26.6 H (3.8-10.6) k/uL RBC 2.77 L (4.30-5.90) m/uL Hgb 8.0 L (13.0-17.5) gm/dL Hct 25.4 L (39.0-53.0) % RDW 16.3 H (11.5-15.5) % Plt Count 43 L (150-450) k/uL Neutrophils # (Manual) 21.00 H (1.3-7.7) k/uL Monocytes # (Manual) 1.86 H (0-1.0) k/uL Metamyelocytes # (Man) 0.80 H (0) k/uL Myelocytes # (Manual) 1.06 H (0) k/uL D-Dimer 4.84 H (<0.60) mg/L FEU ABG pO2 (83-108) mmHg ABG O2 Saturation (94-97) % Chloride 108 H (98-107) mmol/L Carbon Dioxide 21 L (22-30) mmol/L BUN 69 H (9-20) mg/dL Creatinine 2.15 H (0.66-1.25) mg/dL Glucose 115 H (74-99) mg/dL POC Glucose (mg/dL) (75-99) mg/dL Calcium 8.3 L (8.4-10.2) mg/dL Total Bilirubin 1.6 H (0.2-1.3) mg/dL AST 65 H (17-59) U/L ALT 111 H (4-49) U/L Alkaline Phosphatase 249 H (38-126) U/L Creatine Kinase 23 L (55-170) U/L C-Reactive Protein 15.4 H (<1.0) mg/dL Total Protein 4.6 L (6.3-8.2) g/dL Albumin 2.3 L (3.5-5.0) g/dL Urine Protein (Negative) Urine Blood (Negative) Ur Leukocyte Esterase (Negative) Urine RBC (0-5) /hpf Amorphous Sediment (None) /hpf Urine Bacteria (None) /hpf Urine Mucus (None) /hpf 08/06/20 08/06/20 08/06/20 Range/Units 11:37 15:14 18:40 WBC (3.8-10.6) k/uL RBC (4.30-5.90) m/uL Hgb (13.0-17.5) gm/dL Hct (39.0-53.0) % RDW (11.5-15.5) % Plt Count (150-450) k/uL Neutrophils # (Manual) (1.3-7.7) k/uL Monocytes # (Manual) (0-1.0) k/uL Metamyelocytes # (Man) (0) k/uL Myelocytes # (Manual) (0) k/uL D-Dimer (<0.60) mg/L FEU ABG pO2 (83-108) mmHg ABG O2 Saturation (94-97) % Chloride (98-107) mmol/L Carbon Dioxide (22-30) mmol/L BUN (9-20) mg/dL Creatinine (0.66-1.25) mg/dL Glucose (74-99) mg/dL POC Glucose (mg/dL) 119 H 119 H (75-99) mg/dL Calcium (8.4-10.2) mg/dL Total Bilirubin (0.2-1.3) mg/dL AST (17-59) U/L ALT (4-49) U/L Alkaline Phosphatase (38-126) U/L Creatine Kinase (55-170) U/L C-Reactive Protein 15.9 H (<1.0) mg/dL Total Protein (6.3-8.2) g/dL Albumin (3.5-5.0) g/dL Urine Protein (Negative) Urine Blood (Negative) Ur Leukocyte Esterase (Negative) Urine RBC (0-5) /hpf Amorphous Sediment (None) /hpf Urine Bacteria (None) /hpf Urine Mucus (None) /hpf 08/06/20 Range/Units Unknown WBC (3.8-10.6) k/uL RBC (4.30-5.90) m/uL Hgb (13.0-17.5) gm/dL Hct (39.0-53.0) % RDW (11.5-15.5) % Plt Count (150-450) k/uL Neutrophils # (Manual) (1.3-7.7) k/uL Monocytes # (Manual) (0-1.0) k/uL Metamyelocytes # (Man) (0) k/uL Myelocytes # (Manual) (0) k/uL D-Dimer (<0.60) mg/L FEU ABG pO2 (83-108) mmHg ABG O2 Saturation (94-97) % Chloride (98-107) mmol/L Carbon Dioxide (22-30) mmol/L BUN (9-20) mg/dL Creatinine (0.66-1.25) mg/dL Glucose (74-99) mg/dL POC Glucose (mg/dL) (75-99) mg/dL Calcium (8.4-10.2) mg/dL Total Bilirubin (0.2-1.3) mg/dL AST (17-59) U/L ALT (4-49) U/L Alkaline Phosphatase (38-126) U/L Creatine Kinase (55-170) U/L C-Reactive Protein (<1.0) mg/dL Total Protein (6.3-8.2) g/dL Albumin (3.5-5.0) g/dL Urine Protein 1+ H (Negative) Urine Blood Moderate H (Negative) Ur Leukocyte Esterase Trace H (Negative) Urine RBC 17 H (0-5) /hpf Amorphous Sediment Few H (None) /hpf Urine Bacteria Rare H (None) /hpf Urine Mucus Rare H (None) /hpf Assessment and Plan (1) Pancytopenia Current Visit: Yes Status: Acute Priority: High Code(s): D61.818 - OTHER PANCYTOPENIA SNOMED Code(s): 807323859 (2) Pneumonia due to COVID-19 virus Current Visit: Yes Status: Acute Code(s): U07.1 - COVID-19; J12.82 - Pneumonia due to coronavirus disease 2019 SNOMED Code(s): 793136180384345396 Plan: Assessment and Recommendations: Pancytopenia: - Secondary to chronic Illness and bone marrow suppression - Monitor for DIC in acute illness/recurrent infections - Transfuse PRBC hemoglobin less than 7, platelets less than 10/15K Leukopenia:ANC STUNT DOUBLE, Will begin growth factor with close monitoring of CBC with differential - ANC increased, decrease lymph (COVID) Hold anti-coagulation platlets less than 50K COVID Pneumonia and Complications: - Per the care of ICU. physician attest: I have completed the full history and physical and agree with above dictation, dictated as a scribe
--- NOTE | 2020-08-06 23:06 | P.PN ---
Subjective Progress Note Date: 08/03/20 Principal diagnosis: Acute hypoxic respiratory failure secondary to Covid pneumonia requiring mechanical ventilation Acute kidney injury requiring hemodialysis This is a pleasant 53 years old male with past medical history of hypertension, osteoarthritis, sleep apnea. Presents with respiratory distress secondary to covid pneumonia and secondary bacterial infection is suspected as well with positive sputum culture for streptococcus, group C. Patient is currently monitored in the ICU because of his respiratory failure, currently on mechanical ventilation and need a small dose of Levophed at 4 g today. Also patient has elevated troponin and he was started on heparin drip however he developed coffee-ground emesis via anicteric tube, heparin drip was stopped and hemoglobin is stable and normal at 12.4 today. Helicopter Techn[employer] found to his elevated troponin is secondary to his Covid infection and hypotension, Lovenox is on hold although patient has elevated d-dimer due to coffee ground vomiting. Distal sedation, his blood pressure is marginal 104/60 this morning. Pulmonary team performed closely and help with vent management, his PEEP was increased today from 15-18. His oxygen saturation is guarded at 100% with FiO2 of 70%. Patient has marginal urine output at 20 mL/h and continue with normal saline at 80 mL per hour 07/09/2020 Patient remains in critical condition in the ICU, he is sedated and on mechanical ventilation with pulmonary/critical care team followed closely and management. He still needs high PEEP at 18. Today he had suspected left hand coldness and vascular surgery consult, no intervention indicated given his critical guarded condition. He had coffee-ground emesis yesterday and no such episodes, his aspirin was held as well as his Lovenox and switch his anticoagulation into argatroban drip . 4 dropping platelets 90,to 76K today. It NT chase is pending. His creatinine is worsening with nephrology on the case and patient was started on bicarbonate drip, his normal saline at 80 mL per hour was stopped He remains on ceftriaxone 2 g daily for sputum culture positive with streptococcus group C. Also he is on zinc, vitamin D, dexamethasone, Protonix twice daily and Carafate 07/10/2020 Patient remains in the ICU intubated and sedated with pulmonary/critical care team managing his friend, currently he is on PEEP 18 dropped to 15 today by pulmonary team. Despite his history of coffee ground vomitus he was started on argatroban drip for suspected left hand ischemia . Also he is on mild septic shock secondary to bacterial superimposed infection with streptococcus group C found in the blood and sputum cultures on the top of his bilateral Covid pneumonia. He has increased troponin leak secondary to Covid and creatinine is still elevated at 4.1 and followed closely by nephrology team Patient is tachypneic at 36 and blood pressure 121/51 Labs showing trending down WBC to 12.8 K, hemoglobin dropped to 8.9 and Carafate was stopped by coronary team. Platelets are stable 70 6K yesterday and 70 8K today. C-reactive protein is down to 16. Chest x-ray showing bilateral infiltrates. D-dimer was elevated at 34 and throatcalcitonin of 0.23 He remains on ceftriaxone 2 g per ID team, on zinc, vitamin D. Bicarbonate drip,argatroban drip, Protonix twice a day. While aspirating is kept on hold 07/11/2020 Patient in the ICU intubated and sedated. Followed by several consultants Left hand is improving however it is still dusky/bluish color. Tube feeding is in home due to coffee ground emesis. Vent management per pulmonary team, currently PEEP is lowered from 15 down to 10, hit antibodies are positive. Labs showing WBC 18 K, hemoglobin 10.0, platelets 141, creatinine is stable since yesterday at 4.1, LDH is a 1055, C-reactive protein is 13 only. On 07/10 patient was started on hemodialysis for worsening kidney function and creatinine and potassium with low urine output he is still sedated with Nimbex. Tube feeding was on hold due to his history of coffee ground vomitus recently. After the patient remains on argatroban and levophed drip Platelets 141, hemoglobin down to 10.0 K, WBC down to 18 LDH is 1055 and C-reactive protein is within the reference range at 13. Patient is afebrile. In the emergency room he was started on ceftriaxone for Covid and possible superinfection. Also sodium bicarb Was stopped and switched to tablets, normal saline is ordered by primary team, continue with argatroban drip . Also patient is an Protonix and dexamethasone and vitamins. Aspirin was disc ontinued as well as Lovenox. 07/13/2020 Patient was admitted hospital due to acute hypoxic respiratory failure and is currently on mechanical ventilator. Patient also developed acute kidney injury requiring hemodialysis. Patient is sedated. Assist-control 450, FiO2 50% and PEEP of 10. Patient is requiring low-dose norepinephrine drip. Afebrile. Chest x-ray showed relatively similar mid and lower lung consolidation left greater than right. Laboratory data showed WBC 13.7 hemoglobin 9.2 platelets 112 lymphocytes 0.6 D-dimer 13.34 Sodium 132 potassium 4.4 chloride 100 BUN 18 creatinine 3.57 calcium 8.3 phosphorus 8.0 ferritin 847 bilirubin 1.9 AST 71, ALT 93 LDH 1021 CK 406 CRP 70.8 and procalcitonin 0.58. Pulmonary and nephrology is on board. 07/14/2020 Patient is currently in MICU on mechanical ventilator and sedated. Assist- control 450 FiO2 50% and PEEP of 10 and respiratory 28. Chest x-ray showed stable bilateral lung infiltrates greater on the left. Laboratory data showed WBC 12.2 hemoglobin 8.7 platelets 121 lymphocytes 0.5 D- dimer is 9.42 BUN 96 and creatinine 3.97 calcium 8.4 ferritin 775 total bilirubin 1.7, AST 57 ALT 68 alk phos 87 LDH 1062 CPK 231 CRP 87.2 Patient is still low-dose norepinephrine drip. Continued on enteral feeding. Patient is scheduled for hemodialysis today. Patient is being continued dexamethasone, Eliquis and multivitamins. Pulmonary nephrology is following. 07/15/2020 Patient is currently in the MICU on mechanical ventilator. AC 450, FiO2 50% and PEEP of 8. Chest x-ray showed worsening bilateral lung infiltrates. Patient has been afebrile and requiring norepinephrine low-dose pressor support. Laboratory data showed WBC 11.6 hemoglobin 8.4 RDW 15.7 platelets 132 D-dimer is 9.0 sodium 130 potassium 4.4 bicarb is 22 BUN 84 and creatinine 3.73 ferritin 81 1.6 LDH 1061 CRP 78.3. Patient is being continued on dexamethasone and Eliquis and multivitamins. Continued on enteral tube feeding. Condition unchanged from yesterday. 07/16/2020 Patient is currently on mechanical ventilator and sedated. This is controlled for 50 respiration 28 and PEEP of 8. FiO2 70%. Chest x-ray showed unchanged appearance of patchy opacities involving the left lung and right base. Stable lines and tubes. Overnight patient was hypotensive and started back on Levophed drip. Patient is being dialyzed today. Currently on tube feeding. Laboratory data showed WBC 11.6 hemoglobin 9.5 platelets 134 neutrophils 10.3 and lymphocytes 0.6 D-dimer level is 9.95 Sodium 133 potassium 4.1 BUN 91 creatinine 3.93 ferritin 729 AST 49 ALT 52 alk phos 108 lactic acid 1103 CRP 62.7 07/17/2020 Patient is currently in the MICU. Patient was given sedation holiday yesterday was subsequently he decompensated and hypoxic and was placed back on sedation. On assist-control 450 with FiO2 60% and PEEP of 8. Patient able to tolerate hemodialysis with 2 L ultrafiltration yesterday. Currently on low-dose norepinephrine drip. Chest x-ray showed diffuse pulmonary infiltrates unchanged without any major interval changes. Laboratory data showed WBC 13.0, hemoglobin 8.2, d-dimer 6.05 Sodium 132 potassium 4.2 BUN 76 and creatinine 3.41, LDH 889 and CRP 4.4 Pulmonary and nephrology is on board. 07/18/2020 Patient is MICU currently sedated and paralyzed and on mechanical ventilator. Assist-control 450 FiO2 50% and PEEP of 8. Chest x-ray showed bilateral mul tifocal and confluent opacities consistent with COVID-19 infection. No significant interval change from one day earlier. Laboratory data showed WBC 10.5, hemoglobin 8.5 platelets 129 d-dimer 5.4, fib ular nose and 576, sodium 1:30 potassium 4.1 BUN 84 and a creatinine 3.74 blood sugar is controlled, LDH 855 and CRP 5.2 by Pulmonary nephrology is following. Patient has been afebrile. Tolerating tube feeding. Continued on and abuts the form of ceftriaxone, dexamethasone 6 mg IV daily and added IV Lasix 80 mg every 12 as blood pressure tolerates. Blood cultures grew coagulase-negative staph aureus. 07/19/2020 Patient is currently on mechanical ventilator. Patient failed weaning trials. Gen. surgery was consulted for possible tracheostomy and PEG tube placement On assist-control 450 FiO2 50% and PEEP of 6. Chest x-ray showed bilateral pulmonary infiltrates involving lower lobes without much change. Laboratory data showed WBC 9.1 hemoglobin 8.9 which is 148 d-dimer 6.68 sodium 135 potassium 3.9. 91 and creatinine 4.51 Sputum cultures grew beta hemolytic Streptococcus and Armida albicans. Repeat blood culture have been negative. Patient is being continued on ceftriaxone. 07/20/2020 Patient is currently in the MICU, remains intubated. Patient tolerated sedation holiday for 11 hours and was following simple commands. Patient became tachypneic and agitated and was started back on Diprivan. Chest x-ray showed interval improvement in bilateral airspace infiltrates particularly in the right upper lobe. Tolerating tube feeding. Patient is scheduled for tracheostomy and PEG tube placement. Otherwise patient is being continued on IV Lasix. Continue antibiotics been on ceftriaxone, dexamethasone. Laboratory showed WBC 8.1 hemoglobin 8.1 platelets 126 D-dimer 13.38 Eliquis on hold due to pending surgery. Sodium 133 potassium 3.7 BUN 82 and creatinine 4.5 ferritin 1037, LDH 792 Pulmonary, neurology and general surgery is on board. 07/21/2020 Patient is currently remained medically ventilated. Sedated. Chest x-ray showed interval improvement suggested in the bilateral airspace infiltrates particularly in the right upper lobe. Patient is scheduled for tracheostomy and PEG tube placement today. Laboratory data showed WBC 7.1 hemoglobin 7.4 and platelets 120 Sodium 138 potassium 3.2 BUN 75 creatinine 4.01 Patient is being continued on antibiotics at home ceftriaxone. Continued on deferoxamine and Lasix. Eliquis is on hold due to schedule surgery. 07/22/2020 Patient is currently in the MICU. Status post tracheostomy and PEG tube placement on 07/21/2020 On ventilator via trach, FiO2 50% PEEP of 6. ABG showed pH 7.36, pCO2 40 and pO2 169. Patient is also on low-dose Levophed.. Chest x-ray showed bilateral multifocal and confluent opacities consistent with COVID-19 infection with no significant interval change.. Patient is continued on ceftriaxone with sputum cultures growing strep species. 2 feedings intake started today. Otherwise patient is being continued on dexamethasone 6 g daily and Eliquis to be started once cleared by surgery. Ben chan does have good urine output. Afebrile. Neurology and surgery and pulmonary is on board. 07/23/2020 Patient is currently in the intensive care unit. On mechanical ventilation to the tracheostomy tube. Assist-control 450 FiO2 40% and PEEP of 5. ABG showed pH 7.39 pCO2 43 pO2 149. Patient was given sedation holiday yesterday however patient did not wake up. Neurology was consulted CT brain was ordered. Showed decreased attenuation within the right frontal lobe without cortical increased attenuation which could reflect petechial hemorrhage. Patient is currently not on any anti-Coblation. Eliquis is on hold since 07/19/2020. Hemoglobin 7.4 and platelets 105. D-dimer 8.18. Patient is not on any aspirin and Plavix at this time. PEG tube became plugged when the crescendo oral medications were being instilled through the PEG tube. Surgery was notified and the PACU was removed. Planning for NG tube placement. Otherwise patient is being continued on ceftriaxone for beta-hemolytic streptococcus in the sputum suctioned. Patient had hemodialysis on 07/21/2020 with 2.5 L ultrafiltration. Laboratory data showed sodium 136 potassium 3.5 chloride 104 bicarb 22 BUN 54 and creatin ine 2.6. Patient remained on IV Lasix 80 mg twice daily. Patient does have urine output. A Lasix 40 CRP 5.6 Chest x-ray showed diffuse bilateral groundglass airspace disease/pulmonary edema with current small pleural effusion with adjacent atelectasis. Pulmonary and neurology and nephrology is on board. 07/24/2020 Patient is currently in intensive care unit. Status post tracheostomy. [facility] assist control with tidal volume 4 50 mL, FiO2 40% and PEEP of 5. PEG tube feeding is on hold due to blockages and started on TPN. Off pressor support. Anticoagulation is also on hold. Neurology is following. CT showed repeat it is of subarachnoid hemorrhage associated with abnormal hypodensity posterior laterally in the right frontal lobe was again noted. Not significantly changed.. Possible acute ischemic stroke with small right frontal region and with a mild petechial hemorrhage in the cortical ribbon as per neurology. Patient is being continued on antibiotics the form of ceftriaxone. Continued on IV Lasix 80 mg twice daily. Patient does have urine output. Laboratory data showed diabetes. 4.1 hemoglobin 7.4 BUN 68 and creatinine 3.54 Patient is being followed by neurology, pulmonary and nephrology. 07/25/2020 Patient is currently in the MICU. Status post tracheostomy and PEG tube placement. Patient is able to open his eyes and move extremities with verbal commands.. He does have left-sided eye droop. Neurologist plan for repeat CT scan tomorrow. Patient is also scheduled for AGNIESZKA and PEG tube replacement tomorrow. Currently patient is being continued on TPN. Chest x-ray showed findings similar to prior exam. Correlate for volume overload, pneumonia, edema, renal failure. Patient is being continued Lasix 80 mg twice daily. Also on dexamethasone and anticoagulation is on hold due to areas of subarachnoid hemorrhage and the most recent CT head. Laboratory data showed WBC 2.1, hemoglobin 7.4 and platelets 138 BUN 78 and creatinine 3.65 ferritin 850 LDH 654 and CRP 5.9. Critical care care team, nephrology and neurology is following. 08/03/2020 Patient is currently in MICU. Profile reviewed. Off sedation. Remains ventilation via trach. Patient is tachypneic and using abdominal muscles. Currently assist control 500 rate of 24 FiO2 25% and PEEP of 4 Chest x-ray showed tracheostomy tube in upper trachea. Right lower lobe pulmonary infiltrate slightly improved and known evidence of pneumothorax. Laboratory data showed BUN 135 and creatinine 2.8 patient does have urine output. Currently on antibiotics day 7 Eraxis due to fungal infections in the catheter tip, sputum and urine. Nephrology is following and not planning for hemodialysis today. WBC 1.6 and hemoglobin 7.6 and platelets 18. Currently not on any anticoagulation since yesterday. Current medications reviewed. Objective - Vital Signs Vital signs: Vital Signs Temp 99.2 F 08/03/20 15:00 Pulse 93 08/03/20 15:00 Resp 16 08/03/20 15:00 BP 96/60 08/03/20 15:00 Pulse Ox 97 08/03/20 15:00 Intake & Output 08/02/20 08/03/20 08/03/20 18:59 06:59 18:59 Intake Total 1600 1395 435 Output Total 1485 1650 415 Balance 115 -255 20 Weight 103.2 kg 105.1 kg Intake: IV 160 130 0.9 Normal Saline 110 130 Cefepime 1 gm In Sodium 50 Chloride 0.9% 50 ml @ 12. 5 mls/hr IVPB Q12HR PRAFUL Rx#:[id number] Intake, IV Titration 100 200 Amount Anidulafungin 100 mg In 100 Sodium Chloride 0.9% 100 ml @ 84 mls/hr IVPB DAILY PRAFUL Rx#:[id number] Sodium Chloride 0.45% 1, 200 000 ml @ 50 mls/hr IV . Q20H PRAFUL Rx#:[id number] Tube Feeding 440 440 160 Blood Product 0 Platelet Pheresis Pas 0 Psoralen Unit [id number] Other 900 825 75 Output: Urine 1485 1650 415 Other: Voiding Method Indwelling Catheter Indwelling Catheter Indwelling Catheter ABP, PAP, CO, CI - Last Documented Arterial Blood Pressure 118/64 - Exam - Exam -GENERAL: The patient is intubated with a tracheostomy. not sedated, well nourished. HEENT: Pupils are round and equally reacting to light. No scleral icterus. No conjunctival pallor. Normocephalic, atraumatic. No pharyngeal erythema. No thyromegaly. CARDIOVASCULAR: S1 and S2 present. No murmurs, rubs, or gallops. PULMONARY: Chest is clear to auscultation, no wheezing or crackles. ABDOMEN: Soft, nontender, nondistended, normoactive bowel sounds. No palpable organomegaly. MUSCULOSKELETAL: No joint swelling or deformity. EXTREMITIES: No cyanosis, clubbing, or pedal edema. NEUROLOGICAL: Gross neurological examination did not reveal any focal deficits. SKIN: No rashes. no petechiae. - Labs CBC & Chem 7: 08/06/20 06:39 08/06/20 06:39 Labs: Abnormal Lab Results - Last 24 Hours (Table) 08/02/20 08/03/20 08/03/20 Range/Units 17:43 00:21 03:00 WBC 1.6 L (3.8-10.6) k/uL RBC 2.53 L (4.30-5.90) m/uL Hgb 7.6 L (13.0-17.5) gm/dL Hct 23.1 L (39.0-53.0) % RDW 16.3 H (11.5-15.5) % Plt Count 18 L* D (150-450) k/uL Neutrophils # (Manual) 0.70 L (1.3-7.7) k/uL Lymphocytes # (Manual) 0.48 L (1.0-4.8) k/uL Metamyelocytes # (Man) 0.05 H (0) k/uL ABG pH (7.35-7.45) ABG pCO2 (35-45) mmHg ABG pO2 (83-108) mmHg Chloride (98-107) mmol/L Carbon Dioxide (22-30) mmol/L BUN (9-20) mg/dL Creatinine (0.66-1.25) mg/dL Glucose (74-99) mg/dL POC Glucose (mg/dL) 126 H 125 H (75-99) mg/dL Total Bilirubin (0.2-1.3) mg/dL AST (17-59) U/L ALT (4-49) U/L Alkaline Phosphatase (38-126) U/L Total Protein (6.3-8.2) g/dL Albumin (3.5-5.0) g/dL 08/03/20 08/03/20 08/03/20 Range/Units 03:00 05:20 06:03 WBC (3.8-10.6) k/uL RBC (4.30-5.90) m/uL Hgb (13.0-17.5) gm/dL Hct (39.0-53.0) % RDW (11.5-15.5) % Plt Count (150-450) k/uL Neutrophils # (Manual) (1.3-7.7) k/uL Lymphocytes # (Manual) (1.0-4.8) k/uL Metamyelocytes # (Man) (0) k/uL ABG pH 7.46 H (7.35-7.45) ABG pCO2 32 L (35-45) mmHg ABG pO2 69 L (83-108) mmHg Chloride 112 H (98-107) mmol/L Carbon Dioxide 20 L (22-30) mmol/L BUN 155 H* (9-20) mg/dL Creatinine 2.86 H (0.66-1.25) mg/dL Glucose 116 H (74-99) mg/dL POC Glucose (mg/dL) 121 H (75-99) mg/dL Total Bilirubin 3.3 H (0.2-1.3) mg/dL AST 124 H (17-59) U/L ALT 261 H (4-49) U/L Alkaline Phosphatase 239 H (38-126) U/L Total Protein 4.7 L (6.3-8.2) g/dL Albumin 2.3 L (3.5-5.0) g/dL 08/03/20 Range/Units 11:45 WBC (3.8-10.6) k/uL RBC (4.30-5.90) m/uL Hgb (13.0-17.5) gm/dL Hct (39.0-53.0) % RDW (11.5-15.5) % Plt Count (150-450) k/uL Neutrophils # (Manual) (1.3-7.7) k/uL Lymphocytes # (Manual) (1.0-4.8) k/uL Metamyelocytes # (Man) (0) k/uL ABG pH (7.35-7.45) ABG pCO2 (35-45) mmHg ABG pO2 (83-108) mmHg Chloride (98-107) mmol/L Carbon Dioxide (22-30) mmol/L BUN (9-20) mg/dL Creatinine (0.66-1.25) mg/dL Glucose (74-99) mg/dL POC Glucose (mg/dL) 118 H (75-99) mg/dL Total Bilirubin (0.2-1.3) mg/dL AST (17-59) U/L ALT (4-49) U/L Alkaline Phosphatase (38-126) U/L Total Protein (6.3-8.2) g/dL Albumin (3.5-5.0) g/dL Microbiology - Last 24 Hours (Table) 07/28/20 11:45 Blood Culture - Final Blood No Growth after 144 hours Assessment and Plan Assessment: Acute Covid pneumonia Acute hypoxic respiratory failure needing mechanical ventilation. Status post tracheostomy and PEG tube placement on 07/21/2020. Altered mental status likely due to toxic metabolic encephalopathy and multiple organ dysfunction. Acute ischemic stroke petechial hemorrhage within the right frontal lobe as per CT brain. Neurology is on board. AGNIESZKA on 07/26/2020 Acute kidney injury Due to ATN. Currently requiring HD Severe metabolic acidosis and hyperkalemia improved with hemodialysis Coagulase-negative staph aureus bacteremia Beta-hemolytic streptococcal for wound cultures. On ceftriaxone. Hypotension/septic shock requiring low-dose norepinephrine. Left upper extremity negative for DVT. Superficial thrombus in the left cephalic vein and left base leg pain Heparin-induced thrombocytopenia. Changed to argatroban and currently on Eliquis. Suspected ischemia of the left hand on anticoagulation and draped Coffee ground vomiting with suspected acute GI bleed Thrombocytopenia Elevated troponin, secondary to renal function impairment, viral infection and hypotension Plan: This is a pleasant 59 years old male who presents with Covid pneumonia, possible bacterial pneumonia/. Continue with mechanical ventilation for pulmonary/critical care team will follow the patient closely. Continue with multiple vitamin zinc and vitamin D . Eliquis on hold . Continue with bicarbonate Keep monitoring hemoglobin and platelets. Infectious disease, GI and cardiology, nephrology team on the case Patient is status post tracheostomy and PEG tube placement Patient was found to have left eyelid droop. CT head showed subarachnoid hemorrhage with right frontal lobe involvement. Neurology is on board. Labs and medication were reviewed. Monitor lytes and vitals. DVT and GI prophylaxis. Further recommendations as per clinical course of the patient DVT prophylaxis:Eliquis 2.5mg BID on hold currently GI Prophylaxis: Ppi, Protonix twice a day Prognosis is guarded Time with Patient: Greater than 30
--- NOTE | 2020-08-06 23:10 | P.PN ---
Subjective Progress Note Date: 08/04/20 Principal diagnosis: Acute hypoxic respiratory failure secondary to Covid pneumonia requiring mechanical ventilation Acute kidney injury requiring hemodialysis This is a pleasant 53 years old male with past medical history of hypertension, osteoarthritis, sleep apnea. Presents with respiratory distress secondary to covid pneumonia and secondary bacterial infection is suspected as well with positive sputum culture for streptococcus, group C. Patient is currently monitored in the ICU because of his respiratory failure, currently on mechanical ventilation and need a small dose of Levophed at 4 g today. Also patient has elevated troponin and he was started on heparin drip however he developed coffee-ground emesis via anicteric tube, heparin drip was stopped and hemoglobin is stable and normal at 12.4 today. Broadcast Engineer found to his elevated troponin is secondary to his Covid infection and hypotension, Lovenox is on hold although patient has elevated d-dimer due to coffee ground vomiting. Distal sedation, his blood pressure is marginal 104/60 this morning. Pulmonary team performed closely and help with vent management, his PEEP was increased today from 15-18. His oxygen saturation is guarded at 100% with FiO2 of 70%. Patient has marginal urine output at 20 mL/h and continue with normal saline at 80 mL per hour 07/09/2020 Patient remains in critical condition in the ICU, he is sedated and on mechanical ventilation with pulmonary/critical care team followed closely and management. He still needs high PEEP at 18. Today he had suspected left hand coldness and vascular surgery consult, no intervention indicated given his critical guarded condition. He had coffee-ground emesis yesterday and no such episodes, his aspirin was held as well as his Lovenox and switch his anticoagulation into argatroban drip . 4 dropping platelets 90,to 76K today. It NT chase is pending. His creatinine is worsening with nephrology on the case and patient was started on bicarbonate drip, his normal saline at 80 mL per hour was stopped He remains on ceftriaxone 2 g daily for sputum culture positive with streptococcus group C. Also he is on zinc, vitamin D, dexamethasone, Protonix twice daily and Carafate 07/10/2020 Patient remains in the ICU intubated and sedated with pulmonary/critical care team managing his friend, currently he is on PEEP 18 dropped to 15 today by pulmonary team. Despite his history of coffee ground vomitus he was started on argatroban drip for suspected left hand ischemia . Also he is on mild septic shock secondary to bacterial superimposed infection with streptococcus group C found in the blood and sputum cultures on the top of his bilateral Covid pneumonia. He has increased troponin leak secondary to Covid and creatinine is still elevated at 4.1 and followed closely by nephrology team Patient is tachypneic at 36 and blood pressure 121/51 Labs showing trending down WBC to 12.8 K, hemoglobin dropped to 8.9 and Carafate was stopped by coronary team. Platelets are stable 70 6K yesterday and 70 8K today. C-reactive protein is down to 16. Chest x-ray showing bilateral infiltrates. D-dimer was elevated at 34 and throatcalcitonin of 0.23 He remains on ceftriaxone 2 g per ID team, on zinc, vitamin D. Bicarbonate drip,argatroban drip, Protonix twice a day. While aspirating is kept on hold 07/11/2020 Patient in the ICU intubated and sedated. Followed by several consultants Left hand is improving however it is still dusky/bluish color. Tube feeding is in home due to coffee ground emesis. Vent management per pulmonary team, currently PEEP is lowered from 15 down to 10, hit antibodies are positive. Labs showing WBC 18 K, hemoglobin 10.0, platelets 141, creatinine is stable since yesterday at 4.1, LDH is a 1055, C-reactive protein is 13 only. On 07/10 patient was started on hemodialysis for worsening kidney function and creatinine and potassium with low urine output he is still sedated with Nimbex. Tube feeding was on hold due to his history of coffee ground vomitus recently. After the patient remains on argatroban and levophed drip Platelets 141, hemoglobin down to 10.0 K, WBC down to 18 LDH is 1055 and C-reactive protein is within the reference range at 13. Patient is afebrile. In the emergency room he was started on ceftriaxone for Covid and possible superinfection. Also sodium bicarb Was stopped and switched to tablets, normal saline is ordered by primary team, continue with argatroban drip . Also patient is an Protonix and dexamethasone and vitamins. Aspirin was disc ontinued as well as Lovenox. 07/13/2020 Patient was admitted hospital due to acute hypoxic respiratory failure and is currently on mechanical ventilator. Patient also developed acute kidney injury requiring hemodialysis. Patient is sedated. Assist-control 450, FiO2 50% and PEEP of 10. Patient is requiring low-dose norepinephrine drip. Afebrile. Chest x-ray showed relatively similar mid and lower lung consolidation left greater than right. Laboratory data showed WBC 13.7 hemoglobin 9.2 platelets 112 lymphocytes 0.6 D-dimer 13.34 Sodium 132 potassium 4.4 chloride 100 BUN 18 creatinine 3.57 calcium 8.3 phosphorus 8.0 ferritin 847 bilirubin 1.9 AST 71, ALT 93 LDH 1021 CK 406 CRP 70.8 and procalcitonin 0.58. Pulmonary and nephrology is on board. 07/14/2020 Patient is currently in MICU on mechanical ventilator and sedated. Assist- control 450 FiO2 50% and PEEP of 10 and respiratory 28. Chest x-ray showed stable bilateral lung infiltrates greater on the left. Laboratory data showed WBC 12.2 hemoglobin 8.7 platelets 121 lymphocytes 0.5 D- dimer is 9.42 BUN 96 and creatinine 3.97 calcium 8.4 ferritin 775 total bilirubin 1.7, AST 57 ALT 68 alk phos 87 LDH 1062 CPK 231 CRP 87.2 Patient is still low-dose norepinephrine drip. Continued on enteral feeding. Patient is scheduled for hemodialysis today. Patient is being continued dexamethasone, Eliquis and multivitamins. Pulmonary nephrology is following. 07/15/2020 Patient is currently in the MICU on mechanical ventilator. AC 450, FiO2 50% and PEEP of 8. Chest x-ray showed worsening bilateral lung infiltrates. Patient has been afebrile and requiring norepinephrine low-dose pressor support. Laboratory data showed WBC 11.6 hemoglobin 8.4 RDW 15.7 platelets 132 D-dimer is 9.0 sodium 130 potassium 4.4 bicarb is 22 BUN 84 and creatinine 3.73 ferritin 81 1.6 LDH 1061 CRP 78.3. Patient is being continued on dexamethasone and Eliquis and multivitamins. Continued on enteral tube feeding. Condition unchanged from yesterday. 07/16/2020 Patient is currently on mechanical ventilator and sedated. This is controlled for 50 respiration 28 and PEEP of 8. FiO2 70%. Chest x-ray showed unchanged appearance of patchy opacities involving the left lung and right base. Stable lines and tubes. Overnight patient was hypotensive and started back on Levophed drip. Patient is being dialyzed today. Currently on tube feeding. Laboratory data showed WBC 11.6 hemoglobin 9.5 platelets 134 neutrophils 10.3 and lymphocytes 0.6 D-dimer level is 9.95 Sodium 133 potassium 4.1 BUN 91 creatinine 3.93 ferritin 729 AST 49 ALT 52 alk phos 108 lactic acid 1103 CRP 62.7 07/17/2020 Patient is currently in the MICU. Patient was given sedation holiday yesterday was subsequently he decompensated and hypoxic and was placed back on sedation. On assist-control 450 with FiO2 60% and PEEP of 8. Patient able to tolerate hemodialysis with 2 L ultrafiltration yesterday. Currently on low-dose norepinephrine drip. Chest x-ray showed diffuse pulmonary infiltrates unchanged without any major interval changes. Laboratory data showed WBC 13.0, hemoglobin 8.2, d-dimer 6.05 Sodium 132 potassium 4.2 BUN 76 and creatinine 3.41, LDH 889 and CRP 4.4 Pulmonary and nephrology is on board. 07/18/2020 Patient is MICU currently sedated and paralyzed and on mechanical ventilator. Assist-control 450 FiO2 50% and PEEP of 8. Chest x-ray showed bilateral mul tifocal and confluent opacities consistent with COVID-19 infection. No significant interval change from one day earlier. Laboratory data showed WBC 10.5, hemoglobin 8.5 platelets 129 d-dimer 5.4, fib ular nose and 576, sodium 1:30 potassium 4.1 BUN 84 and a creatinine 3.74 blood sugar is controlled, LDH 855 and CRP 5.2 by Pulmonary nephrology is following. Patient has been afebrile. Tolerating tube feeding. Continued on and abuts the form of ceftriaxone, dexamethasone 6 mg IV daily and added IV Lasix 80 mg every 12 as blood pressure tolerates. Blood cultures grew coagulase-negative staph aureus. 07/19/2020 Patient is currently on mechanical ventilator. Patient failed weaning trials. Gen. surgery was consulted for possible tracheostomy and PEG tube placement On assist-control 450 FiO2 50% and PEEP of 6. Chest x-ray showed bilateral pulmonary infiltrates involving lower lobes without much change. Laboratory data showed WBC 9.1 hemoglobin 8.9 which is 148 d-dimer 6.68 sodium 135 potassium 3.9. 91 and creatinine 4.51 Sputum cultures grew beta hemolytic Streptococcus and Armida albicans. Repeat blood culture have been negative. Patient is being continued on ceftriaxone. 07/20/2020 Patient is currently in the MICU, remains intubated. Patient tolerated sedation holiday for 11 hours and was following simple commands. Patient became tachypneic and agitated and was started back on Diprivan. Chest x-ray showed interval improvement in bilateral airspace infiltrates particularly in the right upper lobe. Tolerating tube feeding. Patient is scheduled for tracheostomy and PEG tube placement. Otherwise patient is being continued on IV Lasix. Continue antibiotics been on ceftriaxone, dexamethasone. Laboratory showed WBC 8.1 hemoglobin 8.1 platelets 126 D-dimer 13.38 Eliquis on hold due to pending surgery. Sodium 133 potassium 3.7 BUN 82 and creatinine 4.5 ferritin 1037, LDH 792 Pulmonary, neurology and general surgery is on board. 07/21/2020 Patient is currently remained medically ventilated. Sedated. Chest x-ray showed interval improvement suggested in the bilateral airspace infiltrates particularly in the right upper lobe. Patient is scheduled for tracheostomy and PEG tube placement today. Laboratory data showed WBC 7.1 hemoglobin 7.4 and platelets 120 Sodium 138 potassium 3.2 BUN 75 creatinine 4.01 Patient is being continued on antibiotics at home ceftriaxone. Continued on deferoxamine and Lasix. Eliquis is on hold due to schedule surgery. 07/22/2020 Patient is currently in the MICU. Status post tracheostomy and PEG tube placement on 07/21/2020 On ventilator via trach, FiO2 50% PEEP of 6. ABG showed pH 7.36, pCO2 40 and pO2 169. Patient is also on low-dose Levophed.. Chest x-ray showed bilateral multifocal and confluent opacities consistent with COVID-19 infection with no significant interval change.. Patient is continued on ceftriaxone with sputum cultures growing strep species. 2 feedings intake started today. Otherwise patient is being continued on dexamethasone 6 g daily and Eliquis to be started once cleared by surgery. Ben chan does have good urine output. Afebrile. Neurology and surgery and pulmonary is on board. 07/23/2020 Patient is currently in the intensive care unit. On mechanical ventilation to the tracheostomy tube. Assist-control 450 FiO2 40% and PEEP of 5. ABG showed pH 7.39 pCO2 43 pO2 149. Patient was given sedation holiday yesterday however patient did not wake up. Neurology was consulted CT brain was ordered. Showed decreased attenuation within the right frontal lobe without cortical increased attenuation which could reflect petechial hemorrhage. Patient is currently not on any anti-Coblation. Eliquis is on hold since 07/19/2020. Hemoglobin 7.4 and platelets 105. D-dimer 8.18. Patient is not on any aspirin and Plavix at this time. PEG tube became plugged when the crescendo oral medications were being instilled through the PEG tube. Surgery was notified and the PACU was removed. Planning for NG tube placement. Otherwise patient is being continued on ceftriaxone for beta-hemolytic streptococcus in the sputum suctioned. Patient had hemodialysis on 07/21/2020 with 2.5 L ultrafiltration. Laboratory data showed sodium 136 potassium 3.5 chloride 104 bicarb 22 BUN 54 and creatin ine 2.6. Patient remained on IV Lasix 80 mg twice daily. Patient does have urine output. A Lasix 40 CRP 5.6 Chest x-ray showed diffuse bilateral groundglass airspace disease/pulmonary edema with current small pleural effusion with adjacent atelectasis. Pulmonary and neurology and nephrology is on board. 07/24/2020 Patient is currently in intensive care unit. Status post tracheostomy. On [facility] ventilator assist control with tidal volume 4 50 mL, FiO2 40% and PEEP of 5. PEG tube feeding is on hold due to blockages and started on TPN. Off pressor support. Anticoagulation is also on hold. Neurology is following. CT showed repeat it is of subarachnoid hemorrhage associated with abnormal hypodensity posterior laterally in the right frontal lobe was again noted. Not significantly changed.. Possible acute ischemic stroke with small right frontal region and with a mild petechial hemorrhage in the cortical ribbon as per neurology. Patient is being continued on antibiotics the form of ceftriaxone. Continued on IV Lasix 80 mg twice daily. Patient does have urine output. Laboratory data showed diabetes. 4.1 hemoglobin 7.4 BUN 68 and creatinine 3.54 Patient is being followed by neurology, pulmonary and nephrology. 07/25/2020 Patient is currently in the MICU. Status post tracheostomy and PEG tube placement. Patient is able to open his eyes and move extremities with verbal commands.. He does have left-sided eye droop. Neurologist plan for repeat CT scan tomorrow. Patient is also scheduled for AGNIESZKA and PEG tube replacement tomorrow. Currently patient is being continued on TPN. Chest x-ray showed findings similar to prior exam. Correlate for volume overload, pneumonia, edema, renal failure. Patient is being continued Lasix 80 mg twice daily. Also on dexamethasone and anticoagulation is on hold due to areas of subarachnoid hemorrhage and the most recent CT head. Laboratory data showed WBC 2.1, hemoglobin 7.4 and platelets 138 BUN 78 and creatinine 3.65 ferritin 850 LDH 654 and CRP 5.9. Critical care care team, nephrology and neurology is following. 08/03/2020 Patient is currently in MICU. Profile reviewed. Off sedation. Remains ventilation via trach. Patient is tachypneic and using abdominal muscles. Currently assist control 500 rate of 24 FiO2 25% and PEEP of 4 Chest x-ray showed tracheostomy tube in upper trachea. Right lower lobe pulmonary infiltrate slightly improved and known evidence of pneumothorax. Laboratory data showed BUN 135 and creatinine 2.8 patient does have urine output. Currently on antibiotics day 7 Eraxis due to fungal infections in the catheter tip, sputum and urine. Nephrology is following and not planning for hemodialysis today. WBC 1.6 and hemoglobin 7.6 and platelets 18. Currently not on any anticoagulation since yesterday. 08/04/2020 Patient is in the MICU. Status post tracheostomy and PEG tube placement. Currently vent via trach. Off sedation for several days. Able to open his eyes with verbal commands. Unable to move his extremities and is very weak. Currently assist control with rate of 24 and tidal volume 500 FiO2 25% and PEEP of 5. Chest x-ray showed stable appearance of patchy bilateral infiltrates. Patient is currently PEG tube feeding with Nepro laboratory data showed WBC 7.9 hemoglobin 7.2 platelets 15 and received 1 unit of platelets yesterday. Sodium level is 146 potassium 3.9 chloride 114 bicarb is 19 blood sugar is 165 and creatinine level 3.15 AST 78 and ALT 191 alk phos 206. Currently on antibiotics in the form of Flagyl. ID is on board. Neck wound cultures showing interval gram-negative bacilli. Final culture is pending. Patient did complete Eraxis for candidal urinary tract infection. T-max 101.1 and patient is tachycardic remains in s inus rhythm. Hemodialysis is scheduled for today. Current medications reviewed. Objective - Vital Signs Vital signs: Vital Signs Temp 98.7 F 08/04/20 16:00 Pulse 86 08/04/20 19:00 Resp 24 05/05/21 19:00 BP 105/66 08/04/20 19:00 Pulse Ox 94 L 08/04/20 19:00 Intake & Output 08/04/20 08/04/20 08/05/20 06:59 18:59 06:59 Intake Total 2690.436 7446.060 205 Output Total 805 1590 5 Balance 575.000 544.060 200 Weight 101.8 kg 101.8 kg Intake: IV 110 70 0.9 Normal Saline 110 70 Intake, IV Titration 100.000 724.060 50 Amount Anidulafungin 100 mg In 100 Sodium Chloride 0.9% 100 ml @ 84 mls/hr IVPB DAILY PRAFUL Rx#:[id number] Dexmedetomidine/0.9% NaCl 100.000 84.749 (Pmx) 400 mcg In Empty Bag 1 bag @ Titrate IV . Q0M PR[facility]UL Rx#:[id number] Dexmedetomidine/0.9% NaCl 116.330 (Pmx) 400 mcg In Empty Bag 1 bag @ Titrate IV . Q0M [facility] Rx#:[id number] Norepinephrine 8 mg In 22.981 Sodium Chloride 0.9% 250 ml @ 0.05 MCG/KG/MIN 9. 849 mls/hr IV .Q24H [facility] Rx#:[id number] Sodium Chloride 0.45% 1, 400 50 000 ml @ 50 mls/hr IV . Q20H PR[facility]UL Rx#:[id number] Tube Feeding 420 560 80 Other 750 780 75 Output: Urine 805 590 5 Hemodialysis 1000 Other: Voiding Method Indwelling Catheter Indwelling Catheter ABP, PAP, CO, CI - Last Documented Arterial Blood Pressure 118/64 - Exam - Exam -GENERAL: The patient is intubated with a tracheostomy. not sedated, well nourished. HEENT: Pupils are round and equally reacting to light. No scleral icterus. No conjunctival pallor. Normocephalic, atraumatic. No pharyngeal erythema. No thyromegaly. CARDIOVASCULAR: S1 and S2 present. No murmurs, rubs, or gallops. PULMONARY: Chest is clear to auscultation, no wheezing or crackles. ABDOMEN: Soft, nontender, nondistended, normoactive bowel sounds. No palpable organomegaly. MUSCULOSKELETAL: No joint swelling or deformity. EXTREMITIES: No cyanosis, clubbing, or pedal edema. NEUROLOGICAL: Gross neurological examination did not reveal any focal deficits. SKIN: No rashes. no petechiae. - Labs CBC & Chem 7: 08/06/20 06:39 08/06/20 06:39 Labs: Abnormal Lab Results - Last 24 Hours (Table) 08/03/20 08/04/20 08/04/20 Range/Units 23:54 02:51 02:51 RBC 2.50 L (4.30-5.90) m/uL Hgb 7.2 L (13.0-17.5) gm/dL Hct 23.2 L (39.0-53.0) % RDW 16.6 H (11.5-15.5) % Plt Count 15 L* (150-450) k/uL Metamyelocytes # (Man) 0.71 H (0) k/uL Myelocytes # (Manual) 0.08 H (0) k/uL PT (9.0-12.0) sec INR (<1.2) Fibrinogen (200-500) mg/dL Sodium 146 H (137-145) mmol/L Chloride 114 H (98-107) mmol/L Carbon Dioxide 19 L (22-30) mmol/L BUN 165 H* (9-20) mg/dL Creatinine 3.15 H (0.66-1.25) mg/dL Glucose 119 H (74-99) mg/dL POC Glucose (mg/dL) 123 H (75-99) mg/dL Total Bilirubin 2.3 H (0.2-1.3) mg/dL AST 78 H (17-59) U/L ALT 191 H (4-49) U/L Alkaline Phosphatase 206 H (38-126) U/L Total Protein 4.5 L (6.3-8.2) g/dL Albumin 2.3 L (3.5-5.0) g/dL Coronavirus (PCR) (Not Detectd) 08/04/20 08/04/20 08/04/20 Range/Units 06:30 11:27 12:00 RBC (4.30-5.90) m/uL Hgb (13.0-17.5) gm/dL Hct (39.0-53.0) % RDW (11.5-15.5) % Plt Count (150-450) k/uL Metamyelocytes # (Man) (0) k/uL Myelocytes # (Manual) (0) k/uL PT 12.3 H (9.0-12.0) sec INR 1.2 H (<1.2) Fibrinogen 748 H (200-500) mg/dL Sodium (137-145) mmol/L Chloride (98-107) mmol/L Carbon Dioxide (22-30) mmol/L BUN (9-20) mg/dL Creatinine (0.66-1.25) mg/dL Glucose (74-99) mg/dL POC Glucose (mg/dL) 143 H 131 H (75-99) mg/dL Total Bilirubin (0.2-1.3) mg/dL AST (17-59) U/L ALT (4-49) U/L Alkaline Phosphatase (38-126) U/L Total Protein (6.3-8.2) g/dL Albumin (3.5-5.0) g/dL Coronavirus (PCR) (Not Detectd) 08/04/20 08/04/20 Range/Units 12:10 17:50 RBC (4.30-5.90) m/uL Hgb (13.0-17.5) gm/dL Hct (39.0-53.0) % RDW (11.5-15.5) % Plt Count (150-450) k/uL Metamyelocytes # (Man) (0) k/uL Myelocytes # (Manual) (0) k/uL PT (9.0-12.0) sec INR (<1.2) Fibrinogen (200-500) mg/dL Sodium (137-145) mmol/L Chloride (98-107) mmol/L Carbon Dioxide (22-30) mmol/L BUN (9-20) mg/dL Creatinine (0.66-1.25) mg/dL Glucose (74-99) mg/dL POC Glucose (mg/dL) 124 H (75-99) mg/dL Total Bilirubin (0.2-1.3) mg/dL AST (17-59) U/L ALT (4-49) U/L Alkaline Phosphatase (38-126) U/L Total Protein (6.3-8.2) g/dL Albumin (3.5-5.0) g/dL Coronavirus (PCR) Detected A (Not Detectd) Assessment and Plan Assessment: Acute Covid pneumonia Acute hypoxic respiratory failure needing mechanical ventilation. Status post tracheostomy and PEG tube placement on 07/21/2020. Altered mental status likely due to toxic metabolic encephalopathy and multiple organ dysfunction. Acute ischemic stroke petechial hemorrhage within the right frontal lobe as per CT brain. Neurology is on board. AGNIESZKA on 07/26/2020 Toxic metabolic encephalopathy Acute kidney injury Due to ATN. Currently requiring HD Severe metabolic acidosis and hyperkalemia improved with hemodialysis Coagulase-negative staph aureus bacteremia Beta-hemolytic streptococcal for wound cultures. On ceftriaxone. Hypotension/septic shock requiring low-dose norepinephrine. Left upper extremity negative for DVT. Superficial thrombus in the left cephalic vein and left base leg pain Heparin-induced thrombocytopenia. Changed to argatroban and currently on Eliquis. Suspected ischemia of the left hand on anticoagulation and draped Coffee ground vomiting with suspected acute GI bleed Thrombocytopenia Elevated troponin, secondary to renal function impairment, viral infection and hypotension Plan: This is a pleasant 59 years old male who presents with Covid pneumonia, possible bacterial pneumonia/. Continue with mechanical ventilation for pulmonary/critical care team will follow the patient closely. Continue with multiple vitamin zinc and vitamin D . Eliquis on hold . Continue with bicarbonate Keep monitoring hemoglobin and platelets. Infectious disease, GI and cardiology, nephrology team on the case Patient is status post tracheostomy and PEG tube placement Patient was found to have left eyelid droop. CT head showed subarachnoid hemorrhage with right frontal lobe involvement. Neurology is on board. Patient continues to be encephalopathy and not showing any clinical improvement. Labs and medication were reviewed. Monitor lytes and vitals. DVT and GI prophylaxis. Further recommendations as per clinical course of the patient DVT prophylaxis:Eliquis 2.5mg BID on hold currently GI Prophylaxis: Ppi, Protonix twice a day Prognosis is poor Time with Patient: Greater than 30
--- NOTE | 2020-08-06 23:15 | P.PN ---
Subjective Progress Note Date: 08/05/20 Principal diagnosis: Acute hypoxic respiratory failure secondary to Covid pneumonia requiring mechanical ventilation Acute kidney injury requiring hemodialysis This is a pleasant 53 years old male with past medical history of hypertension, osteoarthritis, sleep apnea. Presents with respiratory distress secondary to covid pneumonia and secondary bacterial infection is suspected as well with positive sputum culture for streptococcus, group C. Patient is currently monitored in the ICU because of his respiratory failure, currently on mechanical ventilation and need a small dose of Levophed at 4 g today. Also patient has elevated troponin and he was started on heparin drip however he developed coffee-ground emesis via anicteric tube, heparin drip was stopped and hemoglobin is stable and normal at 12.4 today. Residential Property Manager found to his elevated troponin is secondary to his Covid infection and hypotension, Lovenox is on hold although patient has elevated d-dimer due to coffee ground vomiting. Distal sedation, his blood pressure is marginal 104/60 this morning. Pulmonary team performed closely and help with vent management, his PEEP was increased today from 15-18. His oxygen saturation is guarded at 100% with FiO2 of 70%. Patient has marginal urine output at 20 mL/h and continue with normal saline at 80 mL per hour 07/09/2020 Patient remains in critical condition in the ICU, he is sedated and on mechanical ventilation with pulmonary/critical care team followed closely and management. He still needs high PEEP at 18. Today he had suspected left hand coldness and vascular surgery consult, no intervention indicated given his critical guarded condition. He had coffee-ground emesis yesterday and no such episodes, his aspirin was held as well as his Lovenox and switch his anticoagulation into argatroban drip . 4 dropping platelets 90,to 76K today. It NT chase is pending. His creatinine is worsening with nephrology on the case and patient was started on bicarbonate drip, his normal saline at 80 mL per hour was stopped He remains on ceftriaxone 2 g daily for sputum culture positive with streptococcus group C. Also he is on zinc, vitamin D, dexamethasone, Protonix twice daily and Carafate 07/10/2020 Patient remains in the ICU intubated and sedated with pulmonary/critical care team managing his friend, currently he is on PEEP 18 dropped to 15 today by pulmonary team. Despite his history of coffee ground vomitus he was started on argatroban drip for suspected left hand ischemia . Also he is on mild septic shock secondary to bacterial superimposed infection with streptococcus group C found in the blood and sputum cultures on the top of his bilateral Covid pneumonia. He has increased troponin leak secondary to Covid and creatinine is still elevated at 4.1 and followed closely by nephrology team Patient is tachypneic at 36 and blood pressure 121/51 Labs showing trending down WBC to 12.8 K, hemoglobin dropped to 8.9 and Carafate was stopped by coronary team. Platelets are stable 70 6K yesterday and 70 8K today. C-reactive protein is down to 16. Chest x-ray showing bilateral infiltrates. D-dimer was elevated at 34 and throatcalcitonin of 0.23 He remains on ceftriaxone 2 g per ID team, on zinc, vitamin D. Bicarbonate drip,argatroban drip, Protonix twice a day. While aspirating is kept on hold 07/11/2020 Patient in the ICU intubated and sedated. Followed by several consultants Left hand is improving however it is still dusky/bluish color. Tube feeding is in home due to coffee ground emesis. Vent management per pulmonary team, currently PEEP is lowered from 15 down to 10, hit antibodies are positive. Labs showing WBC 18 K, hemoglobin 10.0, platelets 141, creatinine is stable since yesterday at 4.1, LDH is a 1055, C-reactive protein is 13 only. On 07/10 patient was started on hemodialysis for worsening kidney function and creatinine and potassium with low urine output he is still sedated with Nimbex. Tube feeding was on hold due to his history of coffee ground vomitus recently. After the patient remains on argatroban and levophed drip Platelets 141, hemoglobin down to 10.0 K, WBC down to 18 LDH is 1055 and C-reactive protein is within the reference range at 13. Patient is afebrile. In the emergency room he was started on ceftriaxone for Covid and possible superinfection. Also sodium bicarb Was stopped and switched to tablets, normal saline is ordered by primary team, continue with argatroban drip . Also patient is an Protonix and dexamethasone and vitamins. Aspirin was disc ontinued as well as Lovenox. 07/13/2020 Patient was admitted hospital due to acute hypoxic respiratory failure and is currently on mechanical ventilator. Patient also developed acute kidney injury requiring hemodialysis. Patient is sedated. Assist-control 450, FiO2 50% and PEEP of 10. Patient is requiring low-dose norepinephrine drip. Afebrile. Chest x-ray showed relatively similar mid and lower lung consolidation left greater than right. Laboratory data showed WBC 13.7 hemoglobin 9.2 platelets 112 lymphocytes 0.6 D-dimer 13.34 Sodium 132 potassium 4.4 chloride 100 BUN 18 creatinine 3.57 calcium 8.3 phosphorus 8.0 ferritin 847 bilirubin 1.9 AST 71, ALT 93 LDH 1021 CK 406 CRP 70.8 and procalcitonin 0.58. Pulmonary and nephrology is on board. 07/14/2020 Patient is currently in MICU on mechanical ventilator and sedated. Assist- control 450 FiO2 50% and PEEP of 10 and respiratory 28. Chest x-ray showed stable bilateral lung infiltrates greater on the left. Laboratory data showed WBC 12.2 hemoglobin 8.7 platelets 121 lymphocytes 0.5 D- dimer is 9.42 BUN 96 and creatinine 3.97 calcium 8.4 ferritin 775 total bilirubin 1.7, AST 57 ALT 68 alk phos 87 LDH 1062 CPK 231 CRP 87.2 Patient is still low-dose norepinephrine drip. Continued on enteral feeding. Patient is scheduled for hemodialysis today. Patient is being continued dexamethasone, Eliquis and multivitamins. Pulmonary nephrology is following. 07/15/2020 Patient is currently in the MICU on mechanical ventilator. AC 450, FiO2 50% and PEEP of 8. Chest x-ray showed worsening bilateral lung infiltrates. Patient has been afebrile and requiring norepinephrine low-dose pressor support. Laboratory data showed WBC 11.6 hemoglobin 8.4 RDW 15.7 platelets 132 D-dimer is 9.0 sodium 130 potassium 4.4 bicarb is 22 BUN 84 and creatinine 3.73 ferritin 81 1.6 LDH 1061 CRP 78.3. Patient is being continued on dexamethasone and Eliquis and multivitamins. Continued on enteral tube feeding. Condition unchanged from yesterday. 07/16/2020 Patient is currently on mechanical ventilator and sedated. This is controlled for 50 respiration 28 and PEEP of 8. FiO2 70%. Chest x-ray showed unchanged appearance of patchy opacities involving the left lung and right base. Stable lines and tubes. Overnight patient was hypotensive and started back on Levophed drip. Patient is being dialyzed today. Currently on tube feeding. Laboratory data showed WBC 11.6 hemoglobin 9.5 platelets 134 neutrophils 10.3 and lymphocytes 0.6 D-dimer level is 9.95 Sodium 133 potassium 4.1 BUN 91 creatinine 3.93 ferritin 729 AST 49 ALT 52 alk phos 108 lactic acid 1103 CRP 62.7 07/17/2020 Patient is currently in the MICU. Patient was given sedation holiday yesterday was subsequently he decompensated and hypoxic and was placed back on sedation. On assist-control 450 with FiO2 60% and PEEP of 8. Patient able to tolerate hemodialysis with 2 L ultrafiltration yesterday. Currently on low-dose norepinephrine drip. Chest x-ray showed diffuse pulmonary infiltrates unchanged without any major interval changes. Laboratory data showed WBC 13.0, hemoglobin 8.2, d-dimer 6.05 Sodium 132 potassium 4.2 BUN 76 and creatinine 3.41, LDH 889 and CRP 4.4 Pulmonary and nephrology is on board. 07/18/2020 Patient is MICU currently sedated and paralyzed and on mechanical ventilator. Assist-control 450 FiO2 50% and PEEP of 8. Chest x-ray showed bilateral mul tifocal and confluent opacities consistent with COVID-19 infection. No significant interval change from one day earlier. Laboratory data showed WBC 10.5, hemoglobin 8.5 platelets 129 d-dimer 5.4, fib ular nose and 576, sodium 1:30 potassium 4.1 BUN 84 and a creatinine 3.74 blood sugar is controlled, LDH 855 and CRP 5.2 by Pulmonary nephrology is following. Patient has been afebrile. Tolerating tube feeding. Continued on and abuts the form of ceftriaxone, dexamethasone 6 mg IV daily and added IV Lasix 80 mg every 12 as blood pressure tolerates. Blood cultures grew coagulase-negative staph aureus. 07/19/2020 Patient is currently on mechanical ventilator. Patient failed weaning trials. Gen. surgery was consulted for possible tracheostomy and PEG tube placement On assist-control 450 FiO2 50% and PEEP of 6. Chest x-ray showed bilateral pulmonary infiltrates involving lower lobes without much change. Laboratory data showed WBC 9.1 hemoglobin 8.9 which is 148 d-dimer 6.68 sodium 135 potassium 3.9. 91 and creatinine 4.51 Sputum cultures grew beta hemolytic Streptococcus and Armida albicans. Repeat blood culture have been negative. Patient is being continued on ceftriaxone. 07/20/2020 Patient is currently in the MICU, remains intubated. Patient tolerated sedation holiday for 11 hours and was following simple commands. Patient became tachypneic and agitated and was started back on Diprivan. Chest x-ray showed interval improvement in bilateral airspace infiltrates particularly in the right upper lobe. Tolerating tube feeding. Patient is scheduled for tracheostomy and PEG tube placement. Otherwise patient is being continued on IV Lasix. Continue antibiotics been on ceftriaxone, dexamethasone. Laboratory showed WBC 8.1 hemoglobin 8.1 platelets 126 D-dimer 13.38 Eliquis on hold due to pending surgery. Sodium 133 potassium 3.7 BUN 82 and creatinine 4.5 ferritin 1037, LDH 792 Pulmonary, neurology and general surgery is on board. 07/21/2020 Patient is currently remained medically ventilated. Sedated. Chest x-ray showed interval improvement suggested in the bilateral airspace infiltrates particularly in the right upper lobe. Patient is scheduled for tracheostomy and PEG tube placement today. Laboratory data showed WBC 7.1 hemoglobin 7.4 and platelets 120 Sodium 138 potassium 3.2 BUN 75 creatinine 4.01 Patient is being continued on antibiotics at home ceftriaxone. Continued on deferoxamine and Lasix. Eliquis is on hold due to schedule surgery. 07/22/2020 Patient is currently in the MICU. Status post tracheostomy and PEG tube placement on 07/21/2020 On ventilator via trach, FiO2 50% PEEP of 6. ABG showed pH 7.36, pCO2 40 and pO2 169. Patient is also on low-dose Levophed.. Chest x-ray showed bilateral multifocal and confluent opacities consistent with COVID-19 infection with no significant interval change.. Patient is continued on ceftriaxone with sputum cultures growing strep species. 2 feedings intake started today. Otherwise patient is being continued on dexamethasone 6 g daily and Eliquis to be started once cleared by surgery. Ben chan does have good urine output. Afebrile. Neurology and surgery and pulmonary is on board. 07/23/2020 Patient is currently in the intensive care unit. On mechanical ventilation to the tracheostomy tube. Assist-control 450 FiO2 40% and PEEP of 5. ABG showed pH 7.39 pCO2 43 pO2 149. Patient was given sedation holiday yesterday however patient did not wake up. Neurology was consulted CT brain was ordered. Showed decreased attenuation within the right frontal lobe without cortical increased attenuation which could reflect petechial hemorrhage. Patient is currently not on any anti-Coblation. Eliquis is on hold since 07/19/2020. Hemoglobin 7.4 and platelets 105. D-dimer 8.18. Patient is not on any aspirin and Plavix at this time. PEG tube became plugged when the crescendo oral medications were being instilled through the PEG tube. Surgery was notified and the PACU was removed. Planning for NG tube placement. Otherwise patient is being continued on ceftriaxone for beta-hemolytic streptococcus in the sputum suctioned. Patient had hemodialysis on 07/21/2020 with 2.5 L ultrafiltration. Laboratory data showed sodium 136 potassium 3.5 chloride 104 bicarb 22 BUN 54 and creatin ine 2.6. Patient remained on IV Lasix 80 mg twice daily. Patient does have urine output. A Lasix 40 CRP 5.6 Chest x-ray showed diffuse bilateral groundglass airspace disease/pulmonary edema with current small pleural effusion with adjacent atelectasis. Pulmonary and neurology and nephrology is on board. 07/24/2020 Patient is currently in intensive care unit. Status post tracheostomy. [facility] assist control with tidal volume 4 50 mL, FiO2 40% and PEEP of 5. PEG tube feeding is on hold due to blockages and started on TPN. Off pressor support. Anticoagulation is also on hold. Neurology is following. CT showed repeat it is of subarachnoid hemorrhage associated with abnormal hypodensity posterior laterally in the right frontal lobe was again noted. Not significantly changed.. Possible acute ischemic stroke with small right frontal region and with a mild petechial hemorrhage in the cortical ribbon as per neurology. Patient is being continued on antibiotics the form of ceftriaxone. Continued on IV Lasix 80 mg twice daily. Patient does have urine output. Laboratory data showed diabetes. 4.1 hemoglobin 7.4 BUN 68 and creatinine 3.54 Patient is being followed by neurology, pulmonary and nephrology. 07/25/2020 Patient is currently in the MICU. Status post tracheostomy and PEG tube placement. Patient is able to open his eyes and move extremities with verbal commands.. He does have left-sided eye droop. Neurologist plan for repeat CT scan tomorrow. Patient is also scheduled for AGNIESZKA and PEG tube replacement tomorrow. Currently patient is being continued on TPN. Chest x-ray showed findings similar to prior exam. Correlate for volume overload, pneumonia, edema, renal failure. Patient is being continued Lasix 80 mg twice daily. Also on dexamethasone and anticoagulation is on hold due to areas of subarachnoid hemorrhage and the most recent CT head. Laboratory data showed WBC 2.1, hemoglobin 7.4 and platelets 138 BUN 78 and creatinine 3.65 ferritin 850 LDH 654 and CRP 5.9. Critical care care team, nephrology and neurology is following. 08/03/2020 Patient is currently in MICU. Profile reviewed. Off sedation. Remains ventilation via trach. Patient is tachypneic and using abdominal muscles. Currently assist control 500 rate of 24 FiO2 25% and PEEP of 4 Chest x-ray showed tracheostomy tube in upper trachea. Right lower lobe pulmonary infiltrate slightly improved and known evidence of pneumothorax. Laboratory data showed BUN 135 and creatinine 2.8 patient does have urine output. Currently on antibiotics day 7 Eraxis due to fungal infections in the catheter tip, sputum and urine. Nephrology is following and not planning for hemodialysis today. WBC 1.6 and hemoglobin 7.6 and platelets 18. Currently not on any anticoagulation since yesterday. 08/04/2020 Patient is in the MICU. Status post tracheostomy and PEG tube placement. Currently vent via trach. Off sedation for several days. Able to open his eyes with verbal commands. Unable to move his extremities and is very weak. Currently assist control with rate of 24 and tidal volume 500 FiO2 25% and PEEP of 5. Chest x-ray showed stable appearance of patchy bilateral infiltrates. Patient is currently PEG tube feeding with Nepro laboratory data showed WBC 7.9 hemoglobin 7.2 platelets 15 and received 1 unit of platelets yesterday. Sodium level is 146 potassium 3.9 chloride 114 bicarb is 19 blood sugar is 165 and creatinine level 3.15 AST 78 and ALT 191 alk phos 206. Currently on antibiotics in the form of Flagyl. ID is on board. Neck wound cultures showing interval gram-negative bacilli. Final culture is pending. Patient did complete Eraxis for candidal urinary tract infection. T-max 101.1 and patient is tachycardic remains in s inus rhythm. Hemodialysis is scheduled for today. 08/05/2020 Patient is currently in the MICU. Denies ventilator via tracheostomy. FiO2 25% and PEEP of 5. Tidal volume 500 assist-control. Patient is tachypneic and using accessory muscles of breathing. Letter will be increased to 40%. Otherwise patient is alert and opens his eyes with verbal commands. Follows simple commands. Otherwise patient is extremely weak and able to move his lower extremities but not upper extremities. T-max is 100.3 and patient is being continued on Flagyl, cefepime and Eraxis which are stopped today. Tracheostomy tube site infection with cultures growing gram-negative bacilli and final culture report is pending. Lab data showed WBC 14.1 hemoglobin 6.4 platelets 13,000 sodium 138 potassium 3.4 BUN 108 and creatinine 2.74. Patient underwent hemodialysis yesterday. Patient is being transfused with 1 unit of PRBC. Also receiving 1 unit of platelets. Remains on tube feeding and also with fecal management system. Current medications reviewed. Objective - Vital Signs Vital signs: Vital Signs Temp 98.3 F 08/05/20 16:00 Pulse 105 H 08/05/20 19:00 Resp 49 H 08/05/20 19:00 BP 130/83 08/05/20 19:00 Pulse Ox 92 L 08/05/20 19:00 Intake & Output 08/05/20 08/05/20 08/06/20 06:59 18:59 06:59 Intake Total 2070.066 2450.597 109.61 Output Total 155 1850 30 Balance 1915.066 600.597 79.61 Weight 105 kg Intake: IV 450 600 50 Sodium Chloride 0.45% 1, 450 600 50 000 ml @ 50 mls/hr IV . Q20H PRAFUL Rx#:[id number] Intake, IV Titration 275.066 17.597 11.61 Amount Dexmedetomidine/0.9% NaCl 92.299 17.597 11.61 (Pmx) 400 mcg In Empty Bag 1 bag @ Titrate IV . Q0M PRAFUL Rx#:[id number] Norepinephrine 8 mg In 132.767 0 Sodium Chloride 0.9% 250 ml @ 0.05 MCG/KG/MIN 9. 849 mls/hr IV .Q24H PRAFUL Rx#:[id number] Sodium Chloride 0.45% 1, 50 000 ml @ 50 mls/hr IV . Q20H PRAFUL Rx#:[id number] Tube Feeding 520 520 48 Blood Product 563 Platelet Pheresis Acd-A 284 Pasc 2 Unit [id number] Pheresis As-3 Unit 279 [id number] Other 825 750 Output: Urine 155 350 30 Hemodialysis 1500 Other: Voiding Method Indwelling Catheter Indwelling Catheter ABP, PAP, CO, CI - Last Documented Arterial Blood Pressure 118/64 - Exam - Exam -GENERAL: The patient is intubated with a tracheostomy. not sedated, well nourished. HEENT: Pupils are round and equally reacting to light. No scleral icterus. No conjunctival pallor. Normocephalic, atraumatic. No pharyngeal erythema. No thyromegaly. CARDIOVASCULAR: S1 and S2 present. No murmurs, rubs, or gallops. PULMONARY: Chest is clear to auscultation, no wheezing or crackles. ABDOMEN: Soft, nontender, nondistended, normoactive bowel sounds. No palpable organomegaly. MUSCULOSKELETAL: No joint swelling or deformity. EXTREMITIES: No cyanosis, clubbing, or pedal edema. NEUROLOGICAL: Able to open eyes with verbal stimuli. Moving his lower extremities. Otherwise Gross neurological examination did not reveal any focal deficits. SKIN: No rashes. no petechiae. - Labs CBC & Chem 7: 08/06/20 06:39 08/06/20 06:39 Labs: Abnormal Lab Results - Last 24 Hours (Table) 08/05/20 08/05/20 08/05/20 Range/Units 00:00 06:05 06:08 WBC 14.1 H (3.8-10.6) k/uL RBC 2.22 L (4.30-5.90) m/uL Hgb 6.4 L* (13.0-17.5) gm/dL Hct 20.2 L (39.0-53.0) % RDW 16.7 H (11.5-15.5) % Plt Count 13 L* (150-450) k/uL ABG pH (7.35-7.45) ABG pCO2 (35-45) mmHg ABG pO2 (83-108) mmHg ABG Total CO2 (19-24) mmol/L ABG O2 Saturation (94-97) % Sodium (137-145) mmol/L Potassium (3.5-5.1) mmol/L Chloride (98-107) mmol/L Carbon Dioxide (22-30) mmol/L BUN (9-20) mg/dL Creatinine (0.66-1.25) mg/dL Glucose (74-99) mg/dL POC Glucose (mg/dL) 136 H 123 H (75-99) mg/dL Calcium (8.4-10.2) mg/dL Crossmatch 08/05/20 08/05/20 08/05/20 Range/Units 06:08 06:16 08:50 WBC (3.8-10.6) k/uL RBC (4.30-5.90) m/uL Hgb (13.0-17.5) gm/dL Hct (39.0-53.0) % RDW (11.5-15.5) % Plt Count (150-450) k/uL ABG pH 7.50 H (7.35-7.45) ABG pCO2 31 L (35-45) mmHg ABG pO2 56 L* (83-108) mmHg ABG Total CO2 25 H (19-24) mmol/L ABG O2 Saturation 89.8 L (94-97) % Sodium (137-145) mmol/L Potassium 3.4 L (3.5-5.1) mmol/L Chloride (98-107) mmol/L Carbon Dioxide (22-30) mmol/L BUN 108 H* (9-20) mg/dL Creatinine 2.74 H (0.66-1.25) mg/dL Glucose 109 H (74-99) mg/dL POC Glucose (mg/dL) 126 H (75-99) mg/dL Calcium 8.2 L (8.4-10.2) mg/dL Crossmatch 08/05/20 08/05/20 08/05/20 Range/Units 08:56 11:25 17:56 WBC (3.8-10.6) k/uL RBC (4.30-5.90) m/uL Hgb (13.0-17.5) gm/dL Hct (39.0-53.0) % RDW (11.5-15.5) % Plt Count (150-450) k/uL ABG pH (7.35-7.45) ABG pCO2 (35-45) mmHg ABG pO2 (83-108) mmHg ABG Total CO2 (19-24) mmol/L ABG O2 Saturation (94-97) % Sodium (137-145) mmol/L Potassium (3.5-5.1) mmol/L Chloride (98-107) mmol/L Carbon Dioxide (22-30) mmol/L BUN (9-20) mg/dL Creatinine (0.66-1.25) mg/dL Glucose (74-99) mg/dL POC Glucose (mg/dL) 128 H 124 H (75-99) mg/dL Calcium (8.4-10.2) mg/dL Crossmatch See Detail 08/05/20 08/05/20 08/05/20 Range/Units 18:14 18:14 18:33 WBC 17.6 H (3.8-10.6) k/uL RBC 2.38 L (4.30-5.90) m/uL Hgb 7.2 L (13.0-17.5) gm/dL Hct 21.6 L (39.0-53.0) % RDW 16.2 H (11.5-15.5) % Plt Count 31 L D (150-450) k/uL ABG pH (7.35-7.45) ABG pCO2 (35-45) mmHg ABG pO2 (83-108) mmHg ABG Total CO2 (19-24) mmol/L ABG O2 Saturation (94-97) % Sodium 136 L (137-145) mmol/L Potassium (3.5-5.1) mmol/L Chloride 109 H (98-107) mmol/L Carbon Dioxide 21 L (22-30) mmol/L BUN 56 H (9-20) mg/dL Creatinine 1.80 H (0.66-1.25) mg/dL Glucose 113 H (74-99) mg/dL POC Glucose (mg/dL) 113 H (75-99) mg/dL Calcium 8.0 L (8.4-10.2) mg/dL Crossmatch Assessment and Plan Assessment: Acute Covid pneumonia Acute hypoxic respiratory failure needing mechanical ventilation. Status post tracheostomy and PEG tube placement on 07/21/2020. Tracheostomy site infection. Altered mental status likely due to toxic metabolic encephalopathy and multiple organ dysfunction. Acute ischemic stroke petechial hemorrhage within the right frontal lobe as per CT brain. Neurology is on board. AGNIESZKA on 07/26/2020 Toxic metabolic encephalopathy Acute kidney injury Due to ATN. Currently requiring HD Severe metabolic acidosis and hyperkalemia improved with hemodialysis Coagulase-negative staph aureus bacteremia Beta-hemolytic streptococcal for wound cultures. On ceftriaxone. Hypotension/septic shock requiring low-dose norepinephrine. Left upper extremity negative for DVT. Superficial thrombus in the left cephalic vein and left base leg pain Heparin-induced thrombocytopenia. Changed to argatroban and currently on Eliquis. Suspected ischemia of the left hand on anticoagulation and draped Coffee ground vomiting with suspected acute GI bleed Thrombocytopenia Elevated troponin, secondary to renal function impairment, viral infection and hypotension Plan: This is a pleasant 59 years old male who presents with Covid pneumonia, possible bacterial pneumonia/. Continue with mechanical ventilation for pulmonary/critical care team will follow the patient closely. Continue with multiple vitamin zinc and vitamin D . Eliquis on hold . Continue with bicarbonate Keep monitoring hemoglobin and platelets. Infectious disease, GI and cardiology, nephrology team on the case Patient is status post tracheostomy and PEG tube placement Patient was found to have left eyelid droop. CT head showed subarachnoid hemorrhage with right frontal lobe involvement. Neurology is on board. Patient continues to be encephalopathy and not showing any clinical improvement. Labs and medication were reviewed. Monitor lytes and vitals. DVT and GI prophylaxis. Further recommendations as per clinical course of the patient DVT prophylaxis:Eliquis 2.5mg BID on hold currently GI Prophylaxis: Ppi, Protonix twice a day Prognosis is poor Time with Patient: Greater than 30
--- NOTE | 2020-08-06 23:21 | P.PN ---
Subjective Progress Note Date: 08/06/20 Principal diagnosis: Acute hypoxic respiratory failure secondary to Covid pneumonia requiring mechanical ventilation Acute kidney injury requiring hemodialysis This is a pleasant 53 years old male with past medical history of hypertension, osteoarthritis, sleep apnea. Presents with respiratory distress secondary to covid pneumonia and secondary bacterial infection is suspected as well with positive sputum culture for streptococcus, group C. Patient is currently monitored in the ICU because of his respiratory failure, currently on mechanical ventilation and need a small dose of Levophed at 4 g today. Also patient has elevated troponin and he was started on heparin drip however he developed coffee-ground emesis via anicteric tube, heparin drip was stopped and hemoglobin is stable and normal at 12.4 today. Personnel Research Scientist found to his elevated troponin is secondary to his Covid infection and hypotension, Lovenox is on hold although patient has elevated d-dimer due to coffee ground vomiting. Distal sedation, his blood pressure is marginal 104/60 this morning. Pulmonary team performed closely and help with vent management, his PEEP was increased today from 15-18. His oxygen saturation is guarded at 100% with FiO2 of 70%. Patient has marginal urine output at 20 mL/h and continue with normal saline at 80 mL per hour 07/09/2020 Patient remains in critical condition in the ICU, he is sedated and on mechanical ventilation with pulmonary/critical care team followed closely and management. He still needs high PEEP at 18. Today he had suspected left hand coldness and vascular surgery consult, no intervention indicated given his critical guarded condition. He had coffee-ground emesis yesterday and no such episodes, his aspirin was held as well as his Lovenox and switch his anticoagulation into argatroban drip . 4 dropping platelets 90,to 76K today. It NT chase is pending. His creatinine is worsening with nephrology on the case and patient was started on bicarbonate drip, his normal saline at 80 mL per hour was stopped He remains on ceftriaxone 2 g daily for sputum culture positive with streptococcus group C. Also he is on zinc, vitamin D, dexamethasone, Protonix twice daily and Carafate 07/10/2020 Patient remains in the ICU intubated and sedated with pulmonary/critical care team managing his friend, currently he is on PEEP 18 dropped to 15 today by pulmonary team. Despite his history of coffee ground vomitus he was started on argatroban drip for suspected left hand ischemia . Also he is on mild septic shock secondary to bacterial superimposed infection with streptococcus group C found in the blood and sputum cultures on the top of his bilateral Covid pneumonia. He has increased troponin leak secondary to Covid and creatinine is still elevated at 4.1 and followed closely by nephrology team Patient is tachypneic at 36 and blood pressure 121/51 Labs showing trending down WBC to 12.8 K, hemoglobin dropped to 8.9 and Carafate was stopped by coronary team. Platelets are stable 70 6K yesterday and 70 8K today. C-reactive protein is down to 16. Chest x-ray showing bilateral infiltrates. D-dimer was elevated at 34 and throatcalcitonin of 0.23 He remains on ceftriaxone 2 g per ID team, on zinc, vitamin D. Bicarbonate drip,argatroban drip, Protonix twice a day. While aspirating is kept on hold 07/11/2020 Patient in the ICU intubated and sedated. Followed by several consultants Left hand is improving however it is still dusky/bluish color. Tube feeding is in home due to coffee ground emesis. Vent management per pulmonary team, currently PEEP is lowered from 15 down to 10, hit antibodies are positive. Labs showing WBC 18 K, hemoglobin 10.0, platelets 141, creatinine is stable since yesterday at 4.1, LDH is a 1055, C-reactive protein is 13 only. On 07/10 patient was started on hemodialysis for worsening kidney function and creatinine and potassium with low urine output he is still sedated with Nimbex. Tube feeding was on hold due to his history of coffee ground vomitus recently. After the patient remains on argatroban and levophed drip Platelets 141, hemoglobin down to 10.0 K, WBC down to 18 LDH is 1055 and C-reactive protein is within the reference range at 13. Patient is afebrile. In the emergency room he was started on ceftriaxone for Covid and possible superinfection. Also sodium bicarb Was stopped and switched to tablets, normal saline is ordered by primary team, continue with argatroban drip . Also patient is an Protonix and dexamethasone and vitamins. Aspirin was disc ontinued as well as Lovenox. 07/13/2020 Patient was admitted hospital due to acute hypoxic respiratory failure and is currently on mechanical ventilator. Patient also developed acute kidney injury requiring hemodialysis. Patient is sedated. Assist-control 450, FiO2 50% and PEEP of 10. Patient is requiring low-dose norepinephrine drip. Afebrile. Chest x-ray showed relatively similar mid and lower lung consolidation left greater than right. Laboratory data showed WBC 13.7 hemoglobin 9.2 platelets 112 lymphocytes 0.6 D-dimer 13.34 Sodium 132 potassium 4.4 chloride 100 BUN 18 creatinine 3.57 calcium 8.3 phosphorus 8.0 ferritin 847 bilirubin 1.9 AST 71, ALT 93 LDH 1021 CK 406 CRP 70.8 and procalcitonin 0.58. Pulmonary and nephrology is on board. 07/14/2020 Patient is currently in MICU on mechanical ventilator and sedated. Assist- control 450 FiO2 50% and PEEP of 10 and respiratory 28. Chest x-ray showed stable bilateral lung infiltrates greater on the left. Laboratory data showed WBC 12.2 hemoglobin 8.7 platelets 121 lymphocytes 0.5 D- dimer is 9.42 BUN 96 and creatinine 3.97 calcium 8.4 ferritin 775 total bilirubin 1.7, AST 57 ALT 68 alk phos 87 LDH 1062 CPK 231 CRP 87.2 Patient is still low-dose norepinephrine drip. Continued on enteral feeding. Patient is scheduled for hemodialysis today. Patient is being continued dexamethasone, Eliquis and multivitamins. Pulmonary nephrology is following. 07/15/2020 Patient is currently in the MICU on mechanical ventilator. AC 450, FiO2 50% and PEEP of 8. Chest x-ray showed worsening bilateral lung infiltrates. Patient has been afebrile and requiring norepinephrine low-dose pressor support. Laboratory data showed WBC 11.6 hemoglobin 8.4 RDW 15.7 platelets 132 D-dimer is 9.0 sodium 130 potassium 4.4 bicarb is 22 BUN 84 and creatinine 3.73 ferritin 81 1.6 LDH 1061 CRP 78.3. Patient is being continued on dexamethasone and Eliquis and multivitamins. Continued on enteral tube feeding. Condition unchanged from yesterday. 07/16/2020 Patient is currently on mechanical ventilator and sedated. This is controlled for 50 respiration 28 and PEEP of 8. FiO2 70%. Chest x-ray showed unchanged appearance of patchy opacities involving the left lung and right base. Stable lines and tubes. Overnight patient was hypotensive and started back on Levophed drip. Patient is being dialyzed today. Currently on tube feeding. Laboratory data showed WBC 11.6 hemoglobin 9.5 platelets 134 neutrophils 10.3 and lymphocytes 0.6 D-dimer level is 9.95 Sodium 133 potassium 4.1 BUN 91 creatinine 3.93 ferritin 729 AST 49 ALT 52 alk phos 108 lactic acid 1103 CRP 62.7 07/17/2020 Patient is currently in the MICU. Patient was given sedation holiday yesterday was subsequently he decompensated and hypoxic and was placed back on sedation. On assist-control 450 with FiO2 60% and PEEP of 8. Patient able to tolerate hemodialysis with 2 L ultrafiltration yesterday. Currently on low-dose norepinephrine drip. Chest x-ray showed diffuse pulmonary infiltrates unchanged without any major interval changes. Laboratory data showed WBC 13.0, hemoglobin 8.2, d-dimer 6.05 Sodium 132 potassium 4.2 BUN 76 and creatinine 3.41, LDH 889 and CRP 4.4 Pulmonary and nephrology is on board. 07/18/2020 Patient is MICU currently sedated and paralyzed and on mechanical ventilator. Assist-control 450 FiO2 50% and PEEP of 8. Chest x-ray showed bilateral mul tifocal and confluent opacities consistent with COVID-19 infection. No significant interval change from one day earlier. Laboratory data showed WBC 10.5, hemoglobin 8.5 platelets 129 d-dimer 5.4, fib ular nose and 576, sodium 1:30 potassium 4.1 BUN 84 and a creatinine 3.74 blood sugar is controlled, LDH 855 and CRP 5.2 by Pulmonary nephrology is following. Patient has been afebrile. Tolerating tube feeding. Continued on and abuts the form of ceftriaxone, dexamethasone 6 mg IV daily and added IV Lasix 80 mg every 12 as blood pressure tolerates. Blood cultures grew coagulase-negative staph aureus. 07/19/2020 Patient is currently on mechanical ventilator. Patient failed weaning trials. Gen. surgery was consulted for possible tracheostomy and PEG tube placement On assist-control 450 FiO2 50% and PEEP of 6. Chest x-ray showed bilateral pulmonary infiltrates involving lower lobes without much change. Laboratory data showed WBC 9.1 hemoglobin 8.9 which is 148 d-dimer 6.68 sodium 135 potassium 3.9. 91 and creatinine 4.51 Sputum cultures grew beta hemolytic Streptococcus and Armida albicans. Repeat blood culture have been negative. Patient is being continued on ceftriaxone. 07/20/2020 Patient is currently in the MICU, remains intubated. Patient tolerated sedation holiday for 11 hours and was following simple commands. Patient became tachypneic and agitated and was started back on Diprivan. Chest x-ray showed interval improvement in bilateral airspace infiltrates particularly in the right upper lobe. Tolerating tube feeding. Patient is scheduled for tracheostomy and PEG tube placement. Otherwise patient is being continued on IV Lasix. Continue antibiotics been on ceftriaxone, dexamethasone. Laboratory showed WBC 8.1 hemoglobin 8.1 platelets 126 D-dimer 13.38 Eliquis on hold due to pending surgery. Sodium 133 potassium 3.7 BUN 82 and creatinine 4.5 ferritin 1037, LDH 792 Pulmonary, neurology and general surgery is on board. 07/21/2020 Patient is currently remained medically ventilated. Sedated. Chest x-ray showed interval improvement suggested in the bilateral airspace infiltrates particularly in the right upper lobe. Patient is scheduled for tracheostomy and PEG tube placement today. Laboratory data showed WBC 7.1 hemoglobin 7.4 and platelets 120 Sodium 138 potassium 3.2 BUN 75 creatinine 4.01 Patient is being continued on antibiotics at home ceftriaxone. Continued on deferoxamine and Lasix. Eliquis is on hold due to schedule surgery. 07/22/2020 Patient is currently in the MICU. Status post tracheostomy and PEG tube placement on 07/21/2020 On ventilator via trach, FiO2 50% PEEP of 6. ABG showed pH 7.36, pCO2 40 and pO2 169. Patient is also on low-dose Levophed.. Chest x-ray showed bilateral multifocal and confluent opacities consistent with COVID-19 infection with no significant interval change.. Patient is continued on ceftriaxone with sputum cultures growing strep species. 2 feedings intake started today. Otherwise patient is being continued on dexamethasone 6 g daily and Eliquis to be started once cleared by surgery. Ben chan does have good urine output. Afebrile. Neurology and surgery and pulmonary is on board. 07/23/2020 Patient is currently in the intensive care unit. On mechanical ventilation to the tracheostomy tube. Assist-control 450 FiO2 40% and PEEP of 5. ABG showed pH 7.39 pCO2 43 pO2 149. Patient was given sedation holiday yesterday however patient did not wake up. Neurology was consulted CT brain was ordered. Showed decreased attenuation within the right frontal lobe without cortical increased attenuation which could reflect petechial hemorrhage. Patient is currently not on any anti-Coblation. Eliquis is on hold since 07/19/2020. Hemoglobin 7.4 and platelets 105. D-dimer 8.18. Patient is not on any aspirin and Plavix at this time. PEG tube became plugged when the crescendo oral medications were being instilled through the PEG tube. Surgery was notified and the PACU was removed. Planning for NG tube placement. Otherwise patient is being continued on ceftriaxone for beta-hemolytic streptococcus in the sputum suctioned. Patient had hemodialysis on 07/21/2020 with 2.5 L ultrafiltration. Laboratory data showed sodium 136 potassium 3.5 chloride 104 bicarb 22 BUN 54 and creatin ine 2.6. Patient remained on IV Lasix 80 mg twice daily. Patient does have urine output. A Lasix 40 CRP 5.6 Chest x-ray showed diffuse bilateral groundglass airspace disease/pulmonary edema with current small pleural effusion with adjacent atelectasis. Pulmonary and neurology and nephrology is on board. 07/24/2020 Patient is currently in intensive care unit. Status post tracheostomy. On [facility] assist control with tidal volume 4 50 mL, FiO2 40% and PEEP of 5. PEG tube feeding is on hold due to blockages and started on TPN. Off pressor support. Anticoagulation is also on hold. Neurology is following. CT showed repeat it is of subarachnoid hemorrhage associated with abnormal hypodensity posterior laterally in the right frontal lobe was again noted. Not significantly changed.. Possible acute ischemic stroke with small right frontal region and with a mild petechial hemorrhage in the cortical ribbon as per neurology. Patient is being continued on antibiotics the form of ceftriaxone. Continued on IV Lasix 80 mg twice daily. Patient does have urine output. Laboratory data showed diabetes. 4.1 hemoglobin 7.4 BUN 68 and creatinine 3.54 Patient is being followed by neurology, pulmonary and nephrology. 07/25/2020 Patient is currently in the MICU. Status post tracheostomy and PEG tube placement. Patient is able to open his eyes and move extremities with verbal commands.. He does have left-sided eye droop. Neurologist plan for repeat CT scan tomorrow. Patient is also scheduled for AGNIESZKA and PEG tube replacement tomorrow. Currently patient is being continued on TPN. Chest x-ray showed findings similar to prior exam. Correlate for volume overload, pneumonia, edema, renal failure. Patient is being continued Lasix 80 mg twice daily. Also on dexamethasone and anticoagulation is on hold due to areas of subarachnoid hemorrhage and the most recent CT head. Laboratory data showed WBC 2.1, hemoglobin 7.4 and platelets 138 BUN 78 and creatinine 3.65 ferritin 850 LDH 654 and CRP 5.9. Critical care care team, nephrology and neurology is following. 08/03/2020 Patient is currently in MICU. Profile reviewed. Off sedation. Remains ventilation via trach. Patient is tachypneic and using abdominal muscles. Currently assist control 500 rate of 24 FiO2 25% and PEEP of 4 Chest x-ray showed tracheostomy tube in upper trachea. Right lower lobe pulmonary infiltrate slightly improved and known evidence of pneumothorax. Laboratory data showed BUN 135 and creatinine 2.8 patient does have urine output. Currently on antibiotics day 7 Eraxis due to fungal infections in the catheter tip, sputum and urine. Nephrology is following and not planning for hemodialysis today. WBC 1.6 and hemoglobin 7.6 and platelets 18. Currently not on any anticoagulation since yesterday. 08/04/2020 Patient is in the MICU. Status post tracheostomy and PEG tube placement. Currently vent via trach. Off sedation for several days. Able to open his eyes with verbal commands. Unable to move his extremities and is very weak. Currently assist control with rate of 24 and tidal volume 500 FiO2 25% and PEEP of 5. Chest x-ray showed stable appearance of patchy bilateral infiltrates. Patient is currently PEG tube feeding with Nepro laboratory data showed WBC 7.9 hemoglobin 7.2 platelets 15 and received 1 unit of platelets yesterday. Sodium level is 146 potassium 3.9 chloride 114 bicarb is 19 blood sugar is 165 and creatinine level 3.15 AST 78 and ALT 191 alk phos 206. Currently on antibiotics in the form of Flagyl. ID is on board. Neck wound cultures showing interval gram-negative bacilli. Final culture is pending. Patient did complete Eraxis for candidal urinary tract infection. T-max 101.1 and patient is tachycardic remains in s inus rhythm. Hemodialysis is scheduled for today. 08/05/2020 Patient is currently in the MICU. Denies ventilator via tracheostomy. FiO2 25% and PEEP of 5. Tidal volume 500 assist-control. Patient is tachypneic and using accessory muscles of breathing. Letter will be increased to 40%. Otherwise patient is alert and opens his eyes with verbal commands. Follows simple commands. Otherwise patient is extremely weak and able to move his lower extremities but not upper extremities. T-max is 100.3 and patient is being continued on Flagyl, cefepime and Eraxis which are stopped today. Tracheostomy tube site infection with cultures growing gram-negative bacilli and final culture report is pending. Lab data showed WBC 14.1 hemoglobin 6.4 platelets 13,000 sodium 138 potassium 3.4 BUN 108 and creatinine 2.74. Patient underwent hemodialysis yesterday. Patient is being transfused with 1 unit of PRBC. Also receiving 1 unit of platelets. Remains on tube feeding and also with fecal management system. 08/06/2020 Patient remains in ICU and is off sedation for several days. Still tachypneic a nd using accessory muscles of respiration. Currently mechanical ventilator assist control 400 FiO2 40% PEEP of 5. FiO2 increased to 80% today. Patient underwent hemodialysis yesterday. Patient is also being treated with antibiotics in the form of cefepime for tracheostomy site infection. ID is on board. Patient is able to blink his eyes and move his lower extremities. Extremity weak otherwise. Neurology is on board. Repeat CT head was done couple days ago showed no new changes. Patient does have hemorrhagic stroke which is stable. Hemoglobin is stable at 8 and WBC count increased to 26. GCF was discontinued. Laboratory data showed platelets 43,000, D-dimer 4.84, BUN 69 and creatinine 2.15 calcium 8.3 bilirubin 1.6 AST 65 ALT 111 alk phos 249 and CRP 15.4. Patient is being followed by pulmonary, nephrology, neurology, ID and general surgery. Current medications reviewed. Objective - Vital Signs Vital signs: Vital Signs Temp 99.5 F 08/06/20 16:00 Pulse 105 H 08/06/20 19:00 Resp 35 H 08/06/20 19:00 BP 121/77 08/06/20 19:00 Pulse Ox 96 08/06/20 19:00 Intake & Output 08/06/20 08/06/20 08/07/20 06:59 18:59 06:59 Intake Total 1937.599 773.404 43.450 Output Total 405 470 Balance 1532.599 303.404 43.450 Weight 106.8 kg 106.8 kg Intake: IV 600 650 Sodium Chloride 0.45% 1, 600 650 000 ml @ 50 mls/hr IV . Q20H PRAFUL Rx#:[id number] Intake, IV Titration 24.599 123.404 43.450 Amount Cefepime 2 gm In Sodium 100 Chloride 0.9% 100 ml @ 25 mls/hr IVPB Q12H PRAFUL Rx# :[id number] Dexmedetomidine/0.9% NaCl 24.599 23.404 43.450 (Pmx) 400 mcg In Empty Bag 1 bag @ Titrate IV . Q0M PRAFUL Rx#:[id number] Tube Feeding 488 Other 825 Output: Urine 405 470 Other: Voiding Method Indwelling Catheter Indwelling Catheter ABP, PAP, CO, CI - Last Documented Arterial Blood Pressure 118/64 - Exam - Exam -GENERAL: The patient is intubated with a tracheostomy. not sedated, well nourished. HEENT: Pupils are round and equally reacting to light. No scleral icterus. No conjunctival pallor. Normocephalic, atraumatic. No pharyngeal erythema. No thyromegaly. CARDIOVASCULAR: S1 and S2 present. No murmurs, rubs, or gallops. PULMONARY: Chest is clear to auscultation, no wheezing or crackles. ABDOMEN: Soft, nontender, nondistended, normoactive bowel sounds. No palpable organomegaly. MUSCULOSKELETAL: No joint swelling or deformity. EXTREMITIES: No cyanosis, clubbing, or pedal edema. NEUROLOGICAL: Able to open eyes with verbal stimuli. Moving his lower extremities. Otherwise Gross neurological examination did not reveal any focal deficits. SKIN: No rashes. no petechiae. - Labs CBC & Chem 7: 08/06/20 06:39 08/06/20 06:39 Labs: Abnormal Lab Results - Last 24 Hours (Table) 08/05/20 08/06/20 08/06/20 Range/Units 23:28 05:45 06:23 WBC (3.8-10.6) k/uL RBC (4.30-5.90) m/uL Hgb (13.0-17.5) gm/dL Hct (39.0-53.0) % RDW (11.5-15.5) % Plt Count (150-450) k/uL Neutrophils # (Manual) (1.3-7.7) k/uL Monocytes # (Manual) (0-1.0) k/uL Metamyelocytes # (Man) (0) k/uL Myelocytes # (Manual) (0) k/uL D-Dimer (<0.60) mg/L FEU ABG pO2 46 L* (83-108) mmHg ABG O2 Saturation 79.2 L (94-97) % Chloride (98-107) mmol/L Carbon Dioxide (22-30) mmol/L BUN (9-20) mg/dL Creatinine (0.66-1.25) mg/dL Glucose (74-99) mg/dL POC Glucose (mg/dL) 107 H 110 H (75-99) mg/dL Calcium (8.4-10.2) mg/dL Total Bilirubin (0.2-1.3) mg/dL AST (17-59) U/L ALT (4-49) U/L Alkaline Phosphatase (38-126) U/L Creatine Kinase (55-170) U/L C-Reactive Protein (<1.0) mg/dL Total Protein (6.3-8.2) g/dL Albumin (3.5-5.0) g/dL Urine Protein (Negative) Urine Blood (Negative) Ur Leukocyte Esterase (Negative) Urine RBC (0-5) /hpf Amorphous Sediment (None) /hpf Urine Bacteria (None) /hpf Urine Mucus (None) /hpf 08/06/20 08/06/20 08/06/20 Range/Units 06:39 06:39 06:39 WBC 26.6 H (3.8-10.6) k/uL RBC 2.77 L (4.30-5.90) m/uL Hgb 8.0 L (13.0-17.5) gm/dL Hct 25.4 L (39.0-53.0) % RDW 16.3 H (11.5-15.5) % Plt Count 43 L (150-450) k/uL Neutrophils # (Manual) 21.00 H (1.3-7.7) k/uL Monocytes # (Manual) 1.86 H (0-1.0) k/uL Metamyelocytes # (Man) 0.80 H (0) k/uL Myelocytes # (Manual) 1.06 H (0) k/uL D-Dimer 4.84 H (<0.60) mg/L FEU ABG pO2 (83-108) mmHg ABG O2 Saturation (94-97) % Chloride 108 H (98-107) mmol/L Carbon Dioxide 21 L (22-30) mmol/L BUN 69 H (9-20) mg/dL Creatinine 2.15 H (0.66-1.25) mg/dL Glucose 115 H (74-99) mg/dL POC Glucose (mg/dL) (75-99) mg/dL Calcium 8.3 L (8.4-10.2) mg/dL Total Bilirubin 1.6 H (0.2-1.3) mg/dL AST 65 H (17-59) U/L ALT 111 H (4-49) U/L Alkaline Phosphatase 249 H (38-126) U/L Creatine Kinase 23 L (55-170) U/L C-Reactive Protein 15.4 H (<1.0) mg/dL Total Protein 4.6 L (6.3-8.2) g/dL Albumin 2.3 L (3.5-5.0) g/dL Urine Protein (Negative) Urine Blood (Negative) Ur Leukocyte Esterase (Negative) Urine RBC (0-5) /hpf Amorphous Sediment (None) /hpf Urine Bacteria (None) /hpf Urine Mucus (None) /hpf 08/06/20 08/06/20 08/06/20 Range/Units 11:37 15:14 18:40 WBC (3.8-10.6) k/uL RBC (4.30-5.90) m/uL Hgb (13.0-17.5) gm/dL Hct (39.0-53.0) % RDW (11.5-15.5) % Plt Count (150-450) k/uL Neutrophils # (Manual) (1.3-7.7) k/uL Monocytes # (Manual) (0-1.0) k/uL Metamyelocytes # (Man) (0) k/uL Myelocytes # (Manual) (0) k/uL D-Dimer (<0.60) mg/L FEU ABG pO2 (83-108) mmHg ABG O2 Saturation (94-97) % Chloride (98-107) mmol/L Carbon Dioxide (22-30) mmol/L BUN (9-20) mg/dL Creatinine (0.66-1.25) mg/dL Glucose (74-99) mg/dL POC Glucose (mg/dL) 119 H 119 H (75-99) mg/dL Calcium (8.4-10.2) mg/dL Total Bilirubin (0.2-1.3) mg/dL AST (17-59) U/L ALT (4-49) U/L Alkaline Phosphatase (38-126) U/L Creatine Kinase (55-170) U/L C-Reactive Protein 15.9 H (<1.0) mg/dL Total Protein (6.3-8.2) g/dL Albumin (3.5-5.0) g/dL Urine Protein (Negative) Urine Blood (Negative) Ur Leukocyte Esterase (Negative) Urine RBC (0-5) /hpf Amorphous Sediment (None) /hpf Urine Bacteria (None) /hpf Urine Mucus (None) /hpf 08/06/20 Range/Units Unknown WBC (3.8-10.6) k/uL RBC (4.30-5.90) m/uL Hgb (13.0-17.5) gm/dL Hct (39.0-53.0) % RDW (11.5-15.5) % Plt Count (150-450) k/uL Neutrophils # (Manual) (1.3-7.7) k/uL Monocytes # (Manual) (0-1.0) k/uL Metamyelocytes # (Man) (0) k/uL Myelocytes # (Manual) (0) k/uL D-Dimer (<0.60) mg/L FEU ABG pO2 (83-108) mmHg ABG O2 Saturation (94-97) % Chloride (98-107) mmol/L Carbon Dioxide (22-30) mmol/L BUN (9-20) mg/dL Creatinine (0.66-1.25) mg/dL Glucose (74-99) mg/dL POC Glucose (mg/dL) (75-99) mg/dL Calcium (8.4-10.2) mg/dL Total Bilirubin (0.2-1.3) mg/dL AST (17-59) U/L ALT (4-49) U/L Alkaline Phosphatase (38-126) U/L Creatine Kinase (55-170) U/L C-Reactive Protein (<1.0) mg/dL Total Protein (6.3-8.2) g/dL Albumin (3.5-5.0) g/dL Urine Protein 1+ H (Negative) Urine Blood Moderate H (Negative) Ur Leukocyte Esterase Trace H (Negative) Urine RBC 17 H (0-5) /hpf Amorphous Sediment Few H (None) /hpf Urine Bacteria Rare H (None) /hpf Urine Mucus Rare H (None) /hpf Assessment and Plan Assessment: Acute Covid pneumonia Acute hypoxic respiratory failure needing mechanical ventilation. Status post tracheostomy and PEG tube placement on 07/21/2020. Tracheostomy site infection. Altered mental status likely due to toxic metabolic encephalopathy and multiple organ dysfunction. Acute ischemic stroke petechial hemorrhage within the right frontal lobe as per CT brain. Neurology is on board. AGNIESZKA on 07/26/2020 Toxic metabolic encephalopathy Pancytopenia secondary to infection. WBC count improved and hemoglobin stable. Still thrombocytopenic. Acute kidney injury Due to ATN. Currently requiring HD Severe metabolic acidosis and hyperkalemia improved with hemodialysis Coagulase-negative staph aureus bacteremia Beta-hemolytic streptococcal for wound cultures. Hypotension/septic shock requiring low-dose norepinephrine. Left upper extremity negative for DVT. Superficial thrombus in the left cephalic vein and left base leg pain Heparin-induced thrombocytopenia. Changed to argatroban and currently on Eliquis. Suspected ischemia of the left hand on anticoagulation and draped Coffee ground vomiting with suspected acute GI bleed Thrombocytopenia Elevated troponin, secondary to renal function impairment, viral infection and hypotension Plan: This is a pleasant 59 years old male who presents with Covid pneumonia, possible bacterial pneumonia/. Continue with mechanical ventilation for pulmonary/critical care team will follow the patient closely. Continue with multiple vitamin zinc and vitamin D . Eliquis on hold . Continue with bicarbonate Keep monitoring hemoglobin and platelets. Infectious disease, GI and cardiology, nephrology team on the case Patient is status post tracheostomy and PEG tube placement Patient was found to have left eyelid droop. CT head showed subarachnoid hemorrhage with right frontal lobe involvement. Neurology is on board. Patient continues to be encephalopathy and not showing any clinical improvement. Labs and medication were reviewed. Monitor lytes and vitals. DVT and GI prophylaxis. Further recommendations as per clinical course of the patient DVT prophylaxis:Eliquis 2.5mg BID on hold currently GI Prophylaxis: Ppi, Protonix twice a day Prognosis is poor Time with Patient: Greater than 30
[2020-08-06 23:34] LABS: Glucose,Whole Blood 113 mg/dL (75-99)
[2020-08-07] MEDS: INSULIN ASPART (NovoLOG) 100 UNIT/ML VIAL SQ SCH ×2 (00:25→06:37)
[2020-08-07] MEDS: DEXMEDETOMIDINE/0.9% NACL(PMX) 400 MCG in EMPTY BAG 1 BAG IV SCH ×2 (03:35→08:53)
[2020-08-07] MEDS: CEFEPIME 2 GM in SODIUM CHLORIDE 0.9% 100 ML IVPB SCH (03:51)
[2020-08-07 06:36] LABS: Glucose,Whole Blood 131 mg/dL (75-99)
[2020-08-07] MEDS: ALBUTEROL HFA INHALER INHALATION SCH ×2 (07:24→11:23)
--- NOTE | 2020-08-07 10:08 | P.PN ---
Subjective Progress Note Date: 08/07/20 The patient is seen today 07/12/2020 in follow-up in the intensive care unit. He remains intubated, sedated on the mechanical ventilator at assist control mode of a rate of 36, tidal volume 450, FiO2 40% and a PEEP of 10. Morning blood gases reveal pO2 of 69, pCO2 41, pH 7.35. He remains sedated on propofol at 60 mcg/kg/m, fentanyl at 1 mcg/kg/h, norepinephrine at 0.09 mcg/kg//min, the patient is currently on 0.9 saline at rate of 50 mL an hour. The patient has been off Nimbex since yesterday. He is continued on Argatroban at 0.5 mcg/kg/m. Being nourished with Nepro at 15 ML's per hour. He did receive hemodialysis yesterday with 1 L removed. Chest x-ray reveals mild bibasilar infiltrates. Sputum cultures positive for beta-hemolytic strep, group C. White count 18.1. Hemoglobin 10.6. Platelet count 141. D-dimer 19.69. Sodium 133. Potassium 4.7. Creatinine 4.14. LDH 1067, C-reactive protein 24. Remains on antibiotics in the form of ceftriaxone. Bronchodilators. Vitamin supplements. Dexamethasone. 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 The platelet count is stable and the platelet count is up to 136. On 07/12/2020, the patient is being seen for follow-up. The patient is a 59-year-old obese male patient with a BMI of 36.2 with known history of obstructive sleep apnea, presented with COVID 19 related pneumonia patient is currently intubated on a mechanical ventilator. The patient has been on a mechanical ventilator since 07/05/2020. 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 During the course of his treatment, the patient developed an acute kidney injury secondary to ATN secondary to "with 19 infection. Urine output was improving and the patient's urine output was in order of 20-25 mL an hour. Due to persistent hyperkalemia and worsening renal function, the patient was started on hemodialysis on 07/10/2020. The potassium level improved post-hemodialysis. The patient also had significant metabolic acidosis and the patient was given bicarb infusion. Electrolytes are being monitored. The patient got dialyzed yesterday and this was his second hemodialysis. Nephrology is on the case. He is currently on Decadron 6 mg IV every 24 hours. His chest x-ray is showing patchy by the pulmonary infiltrates in lower lobes, slightly worsening in the chest x-ray findings on today's evaluation mainly in the peripheries and ET tube is in a good location. The patient remains on a mechanical ventilator assist control mode. He is on Nepro at 60 mL an hour. 07/13/2020, I'm seeing this patient for a follow-up. This is a case of a 59-year-old male patient with Covid 19 related pneumonia and acute kidney injury currently on hemodialysis. Worn-out, the patient is sedated and this morning the patient is currently on propofol running at 6 60 mcg/kg per minute and fentanyl is running at 1 mcg/kg/h and this is the same sedation it was being provided yesterday. The patient is on no paralytics for now. The patient is on a mechanical ventilator, on this morning's evaluation, he is on assist-control at the rate of 28 with a tidal volume of 450 and FiO2 of 50% and PEEP is 10. Blood gases from today showing a pH of 7.37 with a pCO2 of 47 and pO2 of 63. Chest x-ray from today is showing diffuse bilateral pulmonary infiltrates more so in the lower lobes bilaterally. ET tube is in a good location. Comparing this chest x-ray from yesterday, there is no major interval change in the findings are essentially stable. His peak airway pressures 28. His static pressures 24. The patient is is still on Decadron 6 mg IV every 24 hours. D- dimer today's at 13.3, his LDH level is at 1021 and the CRP is at 4.6. Note that his inflammatory markers essentially compatible to yesterday. His echoes at 13.7 with a hemoglobin of 9.2. Platelet count is 112. I took the patient off Agratoban and he was also placed on Eliquis at a dose of 5 mg by mouth twice a day. Noted the patient also is an acute kidney injury. The patient underwent dialysis and the spot he has taken 3 sessions of hemodialysis. He is producing urine output in the order of 20-30 mL an hour. His last session of hemodialysis was yesterday. In terms of his electrolytes, his BUN is at 80 with a creatinine of 3.5 and a sodium of 132 with a potassium of 4.4. He is currently on enteral feeding for dizziness support and is currently on Nepro at the rate of 50 mL an hour. He is currently off Rocephin. He is afebrile. He is requiring low-dose pressors were norepinephrine 30 dose of 0.03 mcg/kg per minute. Otherwise, no other significant events. He is afebrile. Sedation holiday was not done yesterday. IV fluids are running at 0.9 at the rate of 50 mL an hour. 07/14/2020, patient is being seen for follow-up. Sedated and still on a mechanical ventilator, probable resolving. 60 mcg/kg per minute and the patient is also on fentanyl at 1 mcg/kg/h. Adequately sedated. On a mechanical ventilator essentially vent settings being at tidal volume of 450 with an FiO2 of 50% and a PEEP of 10 and a rate of 28. These are essentially the same settings as yesterday. As far as blood gases, pO2 is at 79 with a pCO2 of 45 and a pH is at 7.35. He d-dimer is at 9.42 and the rest of the inflammatory markers show an LDH of 1062 which is stable compared to yesterday and a CRP of 87, slightly elevated compared to yesterday. His CPK is down to 231. His pro calcitonin level was at 0.58 and note that the patient has dialysis-dependent renal failure. As far as his creatinine, his creatinine today is at 3.97 with a mean of 96. He did not receive dialysis yesterday. His urine output is in order of 30-40 mL an hour and the fluid balance has been +1.1 L over the past 24 hours. His chest x-ray from today is showing lower lobe pulmonary infiltrates, essentially stable compared to yesterday. ET tube remains in excellent location. IV fluids are running at 20 cc an hour of normal saline. He is afebrile. He is tolerating his enteral feeding for nutritional support. Nore pinephrine infusion which is running at 0.05 mcg/kg per minute. He remains on Decadron 6 mg IV every 24 , platelet count is stable at 121 and 11 avoiding heparin. Patient holiday yesterday was ultimately aborted as the patient became quite agitated after several hours without any meaningful neurological response. 07/15/2020, the patient is being seen for a follow-up. Sedated with propofol running at 60 mcg/kg per minute and fentanyl is at 1 mcg/kg/h and the level of sedation essentially the same as yesterday. Remains on a mechanical ventilator. He is an assist-control mode at the rate of 24 with a tidal volume of 450 and a PEEP of 8 with a FiO2 of 50%. He had a blood gas showing pH of 7.33 with a pCO2 of 46 and pO2 of 73. Chest x-ray is unchanged, probably slightly worse on the left in terms of that the patient is seeing on today's chest x-ray. ET tube remains in a good location. Inflammatory markers from today show a d-dimer of 9 with a LDH level of 1061 and a CRP of 78, comparable to yesterday. His pro calcitonin level was low. He got dialyzed yesterday. I attempted to wean down the PEEP to 6 and this was not successful and the patient desaturated in the PEEP was brought back up to 8 yesterday. Meanwhile, he is afebrile. He is producing urine output in the order of 20-30 mL an hour. He is on normal saline at the rate of 20 mL an hour. He remains on Decadron 6 mg IV to 24 hours. His platelet count is 132 which is essentially stable and improved compared to yesterday. In terms of pressors, the patient is currently on norepinephrine infusion at 0.04 mcg/kg per minute. I will today's condition essentially unchanged and his condition essentially the same as compared to yesterday 07/16/2020, remains on a mechanical ventilator on propofol at the rate of 60 mcg/kg per minute and fentanyl is at 2 mcg/kg/h. He remains off paralytics. At around 6:00 this morning, the patient had some oxygen desaturation. Based on that, I increased his FiO2 up to 60%. Currently is an assist-control mode rate of 28 with a tidal volume of 450 and a PEEP of 8 chest x-ray still showing diffuse bilateral pulmonary infiltrates left more than right. The blood gas shows a pH of 7.31 with a pCO2 of 45 and pO2 of 68. This was on FiO2 of 70%. Inflammatory markers show a d-dimer of 9.9 with a LDH level of 1103 and a CRP level of 62. The patient is on Decadron 6 mg IV every 24 hours. The patient is also on anticoagulation with Eliquis 2.5 mg by mouth twice a day. His platelet counts is 135. The chest x-ray findings are obviously worse and there is some worsening in the evaluation in the right lung compared to yesterday. Note that the patient did not get dialyzed yesterday. Today is a dialysis day for him. He is also on norepinephrine infusion running at 0.08 mcg/kg per minute. There is enough to maintain his blood pressure. He is receiving enteral feeding for discharge support and currently is on Nepro at a rate of 50 mL an hour which is currently at goal. No other significant events. Is adequately sedated for now. 07/17/2020, the patient is being seen for a follow-up. This morning he is on a combination of propofol and fentanyl running at 60 mics for propofol and 1 g for fentanyl. He was given a sedation holiday and she was able to tolerate initiated subsequently he decompensated and became hypoxic and he had to be placed back on sedation. Noted the patient became asynchronous. This morning, he is back on a mechanical ventilator mode at the rate of 28 with a tidal volume of 450 and her FiO2 is at 60% with a PEEP of 8. He underwent dialysis yesterday with a total of 2 liters of ultrafiltration. Note that he was able to tolerated dialysis without any major issues. He is on a minimal dose of norepinephrine infusion running at 0.06 mcg/kg per minute for blood pressure control. On today's evaluation, peak air pressures around 27. The blood gases from today shows a pH of 7.29 with a pCO2 of 40 and pO2 of 99 and this was on FiO2 of 60%. As mentioned, his PEEP is at 8. Chest x-ray still showing diffuse breath and pulmonary infiltrates unchanged without any major interval improvement or worsening. White cell count is at 50 with a hemoglobin of 8.2. Creatinine is at 3.4 and a urine output is in order of 30 mL an hour. No plans for hemodialysis today. He is receiving enteral feeding for nutritional support with Nepro at the rate of 50 mL an hour. He is stooling. Still sedation dependent. Unable to wean him off sedation because of a 6 and mean oxygen desaturations. I have approach the and the family with a possibility of ainsertion of a tracheostomy tube and a PEG tube for prolonged need of mechani alon ventilation and failure for weaning. The patient has been intubated since 07/05/2020. The inflammatory markers from today shows an LDH level of 889, CRP is at 6 and the d-dimer is at 6.05. The patient has palpable pulses in his left upper extremity. She of his fingers are necrotic and the tip including the index, the platelet counts are stable and the patient is currently on Eliquis 2.5 mg by mouth twice a day. Or 2020, the patient remains sedated with a combination of propofol and fentanyl running at 50 mcg/kg per minute for propofol and 1 mcg/kg per hour for fentanyl. He is sedated. In fact is deeply sedated. We are going to proceed with a sedation holiday on this patient today. He remains on a mechanical ventilator. He remains on a assist-control rate of 28, tidal volume of 450, FiO2 of 50% with a PEEP of 8. Attempts to wean the PEEP further failed and the patient became more hypoxic. As such, the patient is living At 8. This patient is a 7.26 with a pCO2 of 48 and pO2 of 71 today's blood gas. His chest x-ray showing stable bilateral pulmonary infiltrates essentially involving the lower lobes. ET tube is in a good location. Note that the patient is producing urine output in the order of 8200 mL an hour. His net fluid balance over the past 24 hours has been -83 mL. He has had a with a positive fluid balance for today. The findings on the case. The intent of the dialysis 3 times a week. His last dialysis was done on Sunday which is 2 days ago. His creatinine is up to 3.7 with a BUN of 84. Rest of the electrolytes are normal. Affect is running a lower sodium level of 1:30 with a potassium level of 4.1. Serum bicarbs at 20. In terms of his COVID-19 related pneumonia, the patient has a LDH level of 855, CRP level of 5.2 and his most recent d-dimer is at 5.4. He remains on steroids and he is on Decadron 6 mg IV every 24 hours. He did have a component of hit syndrome. This was related to heparin. He did receive Agratroban was ultima tely discontinued once the patient's stated count picked up and it's platelet count is currently at 129. He does have necrotic fingers in his left upper extremity. Adequate pulses in the radial. No new vascular insults noted on today's examination. He is receiving enteral feeding for nutritional support and is currently on Nepro at the rate of 10 mL an hour. He is stooling. He is on Rocephin for strep in history of the blood cultures on 2 separate occasions. Otherwise, the blood cultures positive for coagulase-negative staph. Patient was reevaluated today on 07/19/2020, remains intubated and mechanically ventilated, he is off sedation and he is not showing any signs of neurological not responding to any stimuli. Patient is on assist control rate of 24th of volume 450 FiO2 50% and PEEP of 6. ABG showed a pO2 of 81 pCO2 41 pH of 7.31 patient is on enteral feeding. And he may undergo dialysis. We plan to have a tracheostomy and PEG tube placement in this patient, and he is basically a failure to wean. Today the sedation is placed on hold. Chest x-ray continues to show bilateral pulmonary infiltrates involving lower lobes. Endotracheal tube is in the proper position. Patient is making good urine, however his renal functioning seems to be getting worse. Electrolytes are normal. BUN is 91 creatinine 4.51 LDH is 893 liver enzymes are borderline elevated, C-reactive pr otein is 4.2 d-dimer 6.68. WBC count is 9.1 hemoglobin is 8.9 On 07/20/2020 patient seen in follow-up in intensive care unit, he was given daily traction of sedation yesterday, and his sedation was on hold for several hours and the patient never woke up over open his eyes or follow any commands, a nd as the day went on he started breathing fast, started desaturated and get agitated and was he was placed back on sedation on which she remains today, currently on Diprivan at 40 mics per kilo per minute, and fentanyl infusion at 1 mics per kilo per minute, and levo fed has been discontinued, he is on assist- control mode of ventilation with assist control rate of 24, tidal volumes of 450, FiO2 of 50% and PEEP of 6, this morning's blood gas shows pO2 of 92, pCO2 42, and pH is 7.32. He is in sinus mechanism, slightly tachycardic, his tube feedings are currently on hold in case of possibility of tracheostomy and PEG tube insertion however were still awaiting a response from his family on the decision in regards to proceeding with trach and PEG placement, today he is receiving hemodialysis treatment, and a 3 L in fluid was removed today. In terms of urine output he has been making urine in the order of 50-70 ML per hour, he remains on Lasix 80 mg twice daily, he remains on Rocephin for evidence of a beta-hemolytic strep in the sputum cultures, his follow-up sputum culture only showed Armida. History of resting comfortably in bed, he remains on IV dexamethasone 6 mg daily, has been off the levofed. Breasts labs have been reviewed, his white blood cell count is 8.1, hemoglobin is 8.1, his platelet count is 126, d-dimer is 13.3, sodium is 133, potassium 3.7, his renal function is relatively stable, with BUN of 82, and creatinine 4.51. These LDH is 792, CRP is 48. His had no acute events overnight, we spoke to his daughter yesterday in regards to patient's condition, and to discuss tracheostomy and PEG tube insertion, awaiting response from the family on their decision and the daughter indicated that patient had poor quality of life to start with and the were not sure if the workup and consent to the trach and PEG On 07/21/2000 patient seen in follow-up in the intensive care unit, yesterday he tolerated 11 hours of sedation holiday, and he was starting to follow simple commands, however is that day went on he was becoming more agitated and tachypneic, and he was placed back on sedation, currently on Diprivan at 40 mics per kilo per minute, and 0.9 at KVO, he remains intubated, on assist control mode of ventilation, with a rate of 24, Tylox 450, FiO2 of 50% and PEEP of 6, this morning's blood gases show pO2 133, pCO2 of 41, and pH is 7.38. Patient is resting comfortably, appears to be in no acute distress, he is not on any vasoactive drugs, no vasopressors, she is in sinus rhythm sinus tach with a rate of 90-106 BPM, hemodialysis treatment this morning, and attended have liters of fluid was taken off, his vital signs have been stable overnight, no fever or chills, lung sounds are diminished. She also remains on IV Lasix 80 mg twice daily, patient is producing urine in the order of 30-60 ML per hour, and she is in -4.1 L over the last 24 hours with additional -2.49 fluid balance since midnight last night. Chest x-ray shows interval improvement in bilateral airspace infiltrates particularly within the right upper lobe. Today's labs have been reviewed, showing white blood cell count 7.1, hemoglobin of 7.4, platelet count is 120, sodium is 130, potassium is 3.2, chloride is 104, CO2 of 23, BUN of 75 and creatinine of 4.01. Patient remains on Rocephin for beta- hemolytic strep in the sputum, repeat culture of the sputum showed only Armida. He is tolerating tube feedings which are on hold for tracheostomy and PEG tube placement which is scheduled for today. On 07/22/2020 patient seen in follow-up in intensive care unit, he remains sedated and trach to the ventilator, on assist-control mode of ventilation with a rate of 24, her lungs were 50, FiO2 50% and PEEP of 6, his blood gas shows pO2 of 169, pCO2 40, pH of 7.36, patient is currently on Diprivan at 55 mics per kilo per minute, he is on 0.9 normal saline at 10 ML per hour, Levophed that he is at 0.02 mics per kilo per minute. Patient is having hemodialysis treatment right now. Patient received tracheostomy and PEG tube yesterday. His hemodialysis access was switched to right subclavian approach. He still has a central line in his groin which will need to be switched to a PICC line. Today's chest x-ray showed bilateral multifocal and confluent opacities cons istent with COVID-19 infection with no significant interval change. Vital signs have been stable, his sat 98% on the above mentioned settings, requiring small dose of Levafed. 2 feedings will be started sometime today, he is on Rocephin for evidence of 5 beta-hemolytic strep in the sputum, follow-up sputum culture only showed Armida albicans. She had no acute events overnight. He remains on Decadron 6 mg daily, he is Eliquis will be started tonight if it's okay with surgery. No other acute events overnight, and -2.4 L fluid balance over the last 24 hours. He does remains generally swollen. On 07/23/2020 patient seen in follow-up, in the intensive care unit, patient received tracheostomy and PEG tube insertion on 07/21/2020, he remains trached to the ventilator and is currently on assist control mode of ventilation with a rate of 24, tacrolimus 450, FiO2 45% and PEEP of 5, this morning's blood gas shows pO2 of 149, pCO2 of 43, and pH of 7.39, he was given a sedation holiday yesterday, however he did not wake up or start following commands, neurology completed a brain CT which showed decreased attenuation within the high right frontal lobe without cortical increased attenuation which could reflect petechial hemorrhage, patient is currently not on any anticoagulation, is Natalia mary has been on hold since 07/19/2020 at 11:00 in the morning. His hemoglobin today 7.4, his platelet count is 115, his d-dimer is currently is 8.18 on this morning's labs. Patient is not on any aspirin, or Plavix or any other anticoagulants. Patient was resedated he is currently on 35 mics per kilo per minute of Diprivan, and 0.9 and is infusing at KVO, no other infusions. Hemodynamically he has remained stable, he is in sinus rhythm sinus tachycardia on the monitor, this morning his PEG tube became plugged when the crushed oral medications were being instilled through the PEG tube, surgery was notified, and the PEG tube was removed, NG tube will be inserted, however no tube feedings or oral medications are to be put down the NG tube at this point. Patient remains on Rocephin for evidence of beta-hemolytic strep in the sputum, yesterday his central line was discontinued and the tip was sent for culture and the culture is pending at this time, however overnight has been no fever, his vital signs have remained stable. He had hemodialysis on 07/21/2020 with removal of 2.5 L in fluids. Today's labs show sodium of 136, potassium 3.5, chloride is 104, CO2 is 22, BUN 54, and creatinine is 2.6, his renal profile is improving, and patient remains on IV Lasix 80 mg twice daily, he is producing urine in the order of 35-60 ML per hour. No other acute events overnight, neurology is following, and is to comment on the findings of the CT of the brain. Today's chest x-ray shows continued diffuse bilateral groundglass airspace disease/pulmonary edema, with continue small effusions with adjacent atelectasis. LDH is down to 640, and CRP is 5.6 On 07/24/2020 patient seen in follow-up in the intensive care unit, he remains trached to the ventilator on assist control mode of ventilation with a rate of 24, tidal is 450, FiO2 of 45% and PEEP of 5, this morning's blood gas shows pO2 of 150; pCO2 40, pH of 7.4, and FiO2 was dropped down to 40% based on the above mentioned blood gases, IV fluids are 0.9 normal saline at a rate of 10 ML per hour, and TPN is infusing at 30 ML per hour, not on any vasopressor support, and patient has been off sedation since yesterday morning, were told by the nursing staff that at times he was noted to be attempting to wiggle toes on command. Remains quite lethargic right now, she is not opening eyes to voice, he is not following commands, he is very weak. Chest x-ray today shows diffuse bilateral infiltrates. Tracheostomy hemodialysis catheter appear to be in appropriate positions, NG tube has been inserted yesterday, and peg tube was discontinued, and surgeries plan on replacing the PEG tube on Sunday. Neurology is following, patient has no signs of obvious seizure activity, he does have cough and a gag reflex. But remains very obtunded, today's labs have been reviewed, showing white blood cell count of 4.1, hemoglobin of 7.4, electrolytes were within normal limits, BUN is 68, and creatinine is 3.54. Patient remains on IV Lasix 80 mg twice daily, is in -856 over the last 24 hours, he is tolerating tube feedings, no diarrhea noted. Yesterday his d-dimer came back at 8.18. Patient remains off Eliquis, and he received 300 mg of rectal aspirin per neurology. His most recent brain CT showed previously noted area of subarachnoid hemorrhage associated with abnormal hypodensity posterior laterally in the right frontal lobe was again noted, not significantly changed. Neurology thinks patient has suffered acute ischemic stroke with a small right frontal region with mild petechial hemorrhage in the cortical ribbon On 07/26/2020 patient seen in follow-up in the intensive care unit, he remains trached to the ventilator, assist control mode of ventilation with a rate of 20 with tidal volumes were 450, FiO2 of 40% and PEEP of 5, displays blood gas shows pO2 of 122, pCO2 of 43, and pH of 7.42. He is 1.9 normal seen at 10 mL an hour, TPN is a 55 ML per hour, Cleviprex is a 7 mg per hour. He has been off Diprivan and for several days now, he just has a morphine sulfate for discomfort on as needed basis, he is waking up to touch and sometimes he follows simple commands, but he is extremely weak and unable to squeeze with his hands on command. His tube feedings have been on hold and he is supposed to have a PEG tube reinserted today, NG tube is in place to low intermittent suction a total of 450 ML of gas tric drainage in the last 24 hours, urine output has been in the order of 100- 200 ML per hour. He remains on IV Lasix at 80 mg every 12 hours, he is maintaining negative fluid balance of 1.5 L over the last 24 hours. Has been afebrile. Today's chest x-ray shows persistent but improving infiltrates throughout both lung palafox. Today's labs show white blood cell count of 1.1, hemoglobin of 8.4, d-dimer is 11.69, patient has remained off anticoagulation for the PEG tube reinsertion today, sodium is 142, potassium is 4.2, chloride is 102, BUN is 90, creatinine is 3.54, AST is 72, ALT is 82. He is on IV Rocephin for evidence of beta-hemolytic strep in the sputum, and central line catheter ti p was positive for Armida albicans. Patient has had no fever or chills. Partially patient has suffered an acute stroke with small subarachnoid hemorrhage, cardiology has been consulted for possibility if AGNIESZKA, which cardiology felt was not needed at this time. No other acute events overnight, no fever or chills, patient has not been able to receive his oral medications for high blood pressure, and has required Cleviprex. On 07/27/2020 patient seen in follow-up in intensive care unit, patient is trached to the ventilator with assist control mode of ventilation with a rate of 24, tidal volume was 450, FiO2 30% and PEEP of 5, no blood gases were done today, overnight he developed a fever with a temp of 101.9F, and today's blood work is down trending white count, neutropenia white blood cell count is 0.6, hemoglobin is 8.2, platelet count is 148, and there is a suspicion of possibility of fungal infection, and patient was started on Eraxis yesterday. New blood cultures and urine cultures have been sent, BMP shows a sodium of 140, potassium is 5.2, BUN of 103, and creatinine of 3.66, his inflammatory markers have been reviewed, and LDH is now within normal limits at 559, and CRP is 14.9. His central line catheter tip was positive for Armida albicans, his sputum back on 07/08/2020 was positive for beta-hemolytic strep. Urine culture is currently pending, ID service is following. Patient had a new PEG tube placed on 07/26/2020 he continues on TPN for nutritional support, anticipate restarting his tube feedings this afternoon if cleared by surgery. On 07/28/2020 patient seen in follow-up in the intensive care unit. Remains trached to the ventilator, on assist control mode of ventilation with a rate of 24, tacrolimus 450, FiO2 30%, and PEEP of 5, no new blood gases today. Today's chest x-ray showing stable portable chest, and no change in bibasilar opacities. Patient has remained off sedation, and he started to follow some simple commands, however his severe generally weak, he is unable to squeeze with his hands, he opens eyes to voice, withdraws from painful stimuli. today's labs reviewed showing white blood cell, 0.2, hemoglobin is 6.5, platelet count is 108, patient is pancytopenic, 1 unit of blood will be transfused today, sodium is 144, potassium is 4.4, chloride is 108, BUN of 119, creatinine is 3.9. No obvious source of bleeding at this time. Cultures have been sent, patient is currently on Eraxis for Armida albicans on the central line catheter tip, sputum. Patient remains on Rocephin for streptococcal pneumonia. He was febrile in the last 24 hours with a T-max of 101.3F. He continues on IV Lasix, he is making urine in order of 100-120 ML per hour. Is on Nepro for nutritional support at 36 with a goal of 36 On 07/29/2020 patient seen in follow-up in the intensive care unit. Patient remains trached to the ventilator, with assist control mode of ventilation rate of 24, Tylenol is 450, FiO2 of 30%, and PEEP of 5. Patient's blood gas shows pO2 of 94, pCO2 of 39, and pH of 7.43, he is on 0.9 normal saline at 10 in the per hour, no other drips, and he is receiving nutritional support in the form of Nepro at 36 with a goal of 36 and 60 mL of water flushes every 4 hours per nephrology. He remains lethargic, generally weak. Per nursing staff patient is at times squeezing her finger on command. Brain CT was repeated showing evolving subacute hemorrhagic infarct in the right frontal lobe with no significant interval change, no new acute intracranial hemorrhage or midline shift. We restarted the patient on prophylactic anticoagulation in the form of Lovenox yesterday, today's labs have been reviewed, d-dimer is 3.83, white count is 0.2, hemoglobin is 7.0, platelet count is 142, sodium is 148, potassium is 3.8, and patient's renal function has worsened, and the Lasix is now on hold, free water flushes were increased by nephrology. Patient continues on Eraxis, and urine culture from 07/26/2020 showed Armida albicans, repeat urine culture has been sent, blood culture from 07/26/2020 showed no growth, final culture is pending. he has been afebrile. Rocephin has been discontinued, infectious disease has been consulted On 07/31/2020 patient seen in follow-up in intensive care unit, he opens eyes to voice, he turns had to voice, but unable to squeeze hands on command and follow command. He remains very generally weak, and continues to be somewhat encephalopathic although his level of consciousness has improved. He remains trached to the ventilator, with assist control mode of ventilation and the rate of 24, tidal vital was 450, FiO2 of 30% and PEEP of 5, this morning's blood gas shows pO2 of 104, pCO2 37, and pH of 7.44. This was done on FiO2 of 30%, yesterday he tolerated per support trial for about 5 hours, and was flipped back to assist control mode of ventilation related to respiratory fatigue. This morning he is maintaining O2 saturations at or above 96-98%, appears very comfortable, and we will proceed with another trial of pressure-support ventilation. He is currently on 0.9 normal saline at 5 ML per hour, no other drips, he is not on any sedatives or narcotics, he is currently on Eraxis, and cefepime. ID service is following. His urine culture was positive for Armida albicans, and he had previously had beta-hemolytic streptococcus in his sputum. Repeat sputum culture was sent on 07/29/2020, and preliminary Gram stain shows many gram-positive cocci, moderate gram-positive bacilli, and a few gram- negative bacilli. Tracheostomy site was also cultured, and preliminary Gram stain shows many gram-positive cocci, many gram-positive bacilli, and many gram- negative bacilli. Today's labs have been reviewed, white blood cell, 0.2, hemoglobin is 7.0, platelet count is 89, his sodium remains elevated at 148, and nephrology is following and patient is receiving tube feedings in the form of Nepro at 36 ML per hour, with 75 ML of free water flushes every 1 hour. His c hloride is 112, BUN is 152, and creatinine is 4.07. His renal function slightly worse than yesterday, his liver enzymes show improvement in his AST, slightly increased ALT and relatively stable alkaline phosphatase, his pro-calcitonin level from yesterday was at 1.39. His urinalysis from 07/28/2020 shows possibility of urinary tract infection. His urine output is in the order of 75- 125 ML per hour, has been nonoliguric, no diarrhea. He is tolerating tube feedings. Does have some generalized swelling. We restarted patient's prophylactic Lovenox with hematology clearance, hematology is following and patient is currently on Zarxio On 08/01/2020 patient seen in follow-up in intensive care unit, yesterday he'll tolerated 30 minutes of pressure-support according to the nursing staff, became fatigued, and placed on assist-control mode of ventilation on which she remains this morning, with a rate of 24, tidal volume is 450, FiO2 of 30% and PEEP of 5. Patient is awake and alert, he closed his eyes on command, he has however very weak and unable to squeeze hands on command, and unable to wiggle toes. He is currently on D5W at a rate of 75 ML per hour, no other drips, he is on nutrit ional support in the form of Nepro at 36 with a goal of 36 and free water flushes of 75 ML per hour per nephrology. Today's blood gas has been reviewed showing pO2 of 121, pCO2 of 35, and pH of 7.44, this was done on FiO2 of 30%, there is the blood work has been reviewed showing white blood cell, 0.3, hemoglobin of 7.4, platelet count is 58, sodium is 145, potassium 4.0, chloride is 111, CO2 is 21, BUN of 156, creatinine is 3.46, his liver enzymes continue to worsen. His last pro-calcitonin from 07/30/2020 remains elevated at 1.39. Patient has been on Eraxis and cefepime, ID service is following, last urinalysis from 07/20/2020 showed urinary tract infection, urine cultures are positive for Armida. Patient continues on Lovenox at 30 mg daily, he is also on Zarxio for pancytopenia On 08/04/2000 patient seen in follow-up in the intensive care unit, he remains trached the ventilator, on VC plus mode of admission, with a rate of 24, tidal volume 500, FiO2 of 25% and PEEP of 5. No new blood gas today, today's chest x- ray shows stable appearance of patchy bibasilar infiltrates. Patient is currently on 0.9 normal saline at a rate of 20 ML per hour, and Precedex was started yesterday and is currently infusing a rate of 0.7 mics per kilo per hour. Receiving nutritional support in the form of Nepro at 36 with a goal of 36 and free water flushes of 75 ML per hour per nephrology recommendations, today's labs have been reviewed including white blood cell count up to 7.9, hemoglobin is 7.2, platelet count is 15, patient received 1 unit of platelets yesterday, serum sodium today is 146, potassium is 3.9, chloride is 114, CO2 is 19, B1 is 165, creatinine is 3.15. His AST is improving and is down to 78, ALT is 191, alkaline phosphatase is 206. He has completed 7 days of the Eraxis. And he currently remains on Flagyl per ID service recommendations, his neck wound cultures are showing anaerobic gram-negative bacilli, final culture is pending. he completed 7 days of the Eraxis for candidal urinary tract infection. Continues to be febrile with a temp of 10 1F. Patient is tachycardic in sinus mechanism, the rate of 120 BPM. Patient is less responsive on today's exam, however he is tachypneic, and he is tracheostomy is positional and As noted to be leaking. But not significantly losing volume. His Lasix was placed on hold, his urine output significantly declined in the order of 30-50 ML per hour, he appears to be very edematous in general, and today he will have a hemodialysis treatment On 08/05/2020 patient seen in follow-up on medical- surgical floor, he is currently on VC+ plus mode of elevation with a rate of 24, Tylenol -500, FiO2 of 25% and PEEP of 5, this morning's blood gas reveals pO2 of 55.6, pCO2 of 31, and pH is 7.5. Patient is tachypneic, using accessory muscles of breathing, she was tried on pressure control of ventilation, but also did not appear comfortable, and was placed back on his original settings with the volume control plus mode of ventilation, her O2 was increased to 40%. Patient seems to be more alert, and following simple commands, he is blinking his eyes to yesterday no questions, and he is able to squeeze on command with his hands. The last 24 hours is 100.3, currently on Flagyl, cefepime and Eraxis were discontinued. Trach site cultures are showing anaerobic gram-negative bacilli, final culture is pending. White blood cell count is 14.1, hemoglobin is 6.4 on today's labs, platelet count is 13, sodium is 138, potassium is 3.4, chloride is 107, BUN of 108, and creatinine is 2.74. Patient underwent hemodialysis yesterday with removal of 1 L of fluid. Overnight his urine output is in the order of 10-35 ML per hour. Transfusion with 1 unit of packed red blood cells is pending for today, and we will order 1 unit of Platelets as well. he remains on Nepro at goal for nutritional support. 2020, the patient essentially the same condition. He is still struggling with his breathing. He seems to be having labored breathing and he is also tachypneic while on a mechanical ventilator. To control his breathing status, the patient was restarted back on some degree of sedation she is currently on Precedex which is running at 0.6 mcg/kg per minute. This has settled some of his agitation and restlessness. I have also restarted the patient on Zoloft 100 mg by mouth daily, Abilify 5 mg by mouth twice a day and he was also started on clonazepam 1 mg by mouth twice a day for anxiety and restlessness and agitation. While on the mechanical ventilator, he continues to be quite tachypneic and using abdominal muscles of breathing. He is currently on a VC mode and currently he is on a rate of 24 with a tidal volume of 400 and FiO2 of 40% and a PEEP of 5. Morning blood gases showed a degree of hypoxemia with a pCO2 of 39 and a pO2 of 46 with a pH of 7.35. Based on that, I increased his FiO2 up to 80% and his current saturation is around 96%. I dropped him down to 60% accordingly. He is having some this secretions around his tracheostomy stoma. Cultures were taken and is obviously polymicrobial. Infectious diseases on the case and the patient was given Flagyl. He is afebrile. He is on no pressors at this point in time. He underwent dialysis yesterday and a total of 1.5 L of ultrafiltration was done. He was able to tolerate that without any major difficulties. Urine output currently is in order of 40-50 mL an hour. The patient will not receive hemodialysis today. In terms of his neurologic function is, I got to the point where I was able to elicit some response of the patient. He was able to squeeze my fingers using his hand and he was able to blink upon demand and raises eyebrows. As such, I thought that the patient is conscious and there is some ongoing neurologic function based on yesterday's evaluation. However on today's evaluation, he is on Precedex and is not following any commands. His CAT scan of the brain at shown a hemorrhagic stroke that has been stable. Meanwhile, from the hematologic standpoint, the patient is having issues with thrombocytopenia. He is also having issues with anemia. He is bleeding from his mucosal membranes of his mouth and no reported GI bleeds. He was given a platelet transfusion and the platelet count came back at 31. Awaiting follow-up levels from today. Hemoglobin stable at 8 and a white cell count is at 26 and the G-CSF was discontinued. His d-dimer is at 4.84 and his electrolytes are normal, creatinine is at 2.1, liver function tests are slightly elevated and he does have a component of transaminitis, CRP level today's at 15.4. Enteral feeding for nutritional support through Nepro currently running at 40cc/hr fecal management system. Stool for C. diff has been checked and is also negative. 08/06/2020, the patient is being seen for a follow-up. He remains on a mechanical ventilator with essentially the same ventilator settings and the patient is currently on assist control mode with a tidal volume of 400 and FiO2 of 60% and a PEEP of 5 and the rate of 24. Chest x-ray was not done. Blood gas was not done as the plan is to proceed with comfort care measures today. I had the next discussion with the patient's family yesterday. Explained the details of his care and his poor prognosis. Based on that, the family has decided to go with comfort care measures and for that reason we are supporting him for the next few hours and the plan is to proceed to comfort care measures later on this afternoon. No labs are available from today. The patient remains on a mechanical ventilator. He is unresponsive. He is sedated with Precedex at 0.7 mcg/kg per minute and seems to be quite comfortable and rested at this point in time. He is also running IV fluids with normal saline at the rate of 50 mL an hour. He is also on enteral feeding with Nepro at the rate of 36 mL which is goal. No other significant events overnight. Objective - Vital Signs Vital signs: Vital Signs Temp 99.6 F 08/07/20 04:00 Pulse 102 H 08/07/20 07:00 Resp 36 H 08/07/20 07:00 BP 100/65 08/07/20 07:00 Pulse Ox 99 08/07/20 07:00 Intake & Output 08/06/20 08/07/20 08/07/20 18:59 06:59 18:59 Intake Total 657.500 6772.638 287.309 Output Total 470 395 20 Balance 303.404 926.638 267.309 Weight 106.8 kg 108.6 kg Intake: IV 650 650 50 Cefepime 2 gm In Sodium 100 Chloride 0.9% 100 ml @ 25 mls/hr IVPB Q12H [facility] Rx# :[id number] Sodium Chloride 0.45% 1, 650 000 ml @ 50 mls/hr IV . Q20H [facility] Rx#:[id number] Sodium Chloride 0.9% 1, 550 50 000 ml @ 50 mls/hr IV . Q20H [facility] Rx#:[id number] Intake, IV Titration 123.404 140.638 201.309 Amount Cefepime 2 gm In Sodium 100 Chloride 0.9% 100 ml @ 25 mls/hr IVPB Q12H [facility] Rx# :[id number] Dexmedetomidine/0.9% NaCl 23.404 140.638 99.057 (Pmx) 400 mcg In Empty Bag 1 bag @ Titrate IV . Q0M [facility] Rx#:[id number] Norepinephrine 8 mg In 102.252 Sodium Chloride 0.9% 250 ml @ 0.05 MCG/KG/MIN 9. 849 mls/hr IV .Q24H [facility] Rx#:[id number] Tube Feeding 432 36 Other 99 Output: Urine 470 395 20 Other: Voiding Method Indwelling Catheter Indwelling Catheter ABP, PAP, CO, CI - Last Documented Arterial Blood Pressure 118/64 - Exam GENERAL EXAM: Awake and alert, morbidly obese 59-year-old white male, trached to the ventilator, on volume-control mode of ventilation with a 60% PEEP of 5, tachypneic, using abdominal muscles of respiration, following simple command, he is able to blink eyes on commands and squeeze with his hands on command, he is on Precedex at 0.6 mics per kilo per minute generalized weakness comfortable in no apparent distress. Blinking eyes "yes" when asked if he is hurting yesterday and I was unable to elicit the same response today from the patient. HEAD: Normocephalic/atraumatic. EYES: Normal reaction of pupils, equal size. Conjunctiva pink, sclera white. NOSE: Clear with pink turbinates. THROAT: No erythema or exudates. NECK: No masses, no JVD, no thyroid enlargement, no adenopathy. Midline tracheostomy connected to the ventilator, this brownish colored draining from around the trach tube site CHEST: No chest wall deformity. Symmetrical expansion. Right subclavian permacath in place and patient is receiving hemodialysis LUNGS: Equal air entry with no crackles, wheeze, rhonchi or dullness. CVS: Regular rate and rhythm, normal S1 and S2, no gallops, no murmurs, no rubs ABDOMEN: Soft, nontender. No hepatosplenomegaly, normal bowel sounds, no guarding or rigidity. PEG tube in place EXTREMITIES: No clubbing, generalized edema no cyanosis, 2+ pulses and upper and lower extremities. Patient has black fingertips on his left hand MUSCULOSKELETAL: Muscle strength and tone normal. Right groin temporary hemodialysis catheter in place SPINE: No scoliosis or deformity SKIN: No rashes CENTRAL NERVOUS SYSTEM: Awake and alert, tachypneic, following simple commands, able to respond with blinking and able to squeeze hands on command trached to the ventilator No focal deficits, tone is normal in all 4 extremities. On today's evaluation, he is less responsive and obviously is not following any commands. Response was obtained yesterday. - Labs CBC & Chem 7: 08/06/20 06:39 08/06/20 06:39 Labs: Abnormal Lab Results - Last 24 Hours (Table) 08/06/20 08/06/20 08/06/20 Range/Units 06:39 11:37 15:14 Plt Count 43 L (150-450) k/uL Neutrophils # (Manual) 21.00 H (1.3-7.7) k/uL Monocytes # (Manual) 1.86 H (0-1.0) k/uL Metamyelocytes # (Man) 0.80 H (0) k/uL Myelocytes # (Manual) 1.06 H (0) k/uL POC Glucose (mg/dL) 119 H (75-99) mg/dL C-Reactive Protein 15.9 H (<1.0) mg/dL Urine Protein (Negative) Urine Blood (Negative) Ur Leukocyte Esterase (Negative) Urine RBC (0-5) /hpf Amorphous Sediment (None) /hpf Urine Bacteria (None) /hpf Urine Mucus (None) /hpf 08/06/20 08/06/20 08/06/20 Range/Units 18:40 23:32 Unknown Plt Count (150-450) k/uL Neutrophils # (Manual) (1.3-7.7) k/uL Monocytes # (Manual) (0-1.0) k/uL Metamyelocytes # (Man) (0) k/uL Myelocytes # (Manual) (0) k/uL POC Glucose (mg/dL) 119 H 113 H (75-99) mg/dL C-Reactive Protein (<1.0) mg/dL Urine Protein 1+ H (Negative) Urine Blood Moderate H (Negative) Ur Leukocyte Esterase Trace H (Negative) Urine RBC 17 H (0-5) /hpf Amorphous Sediment Few H (None) /hpf Urine Bacteria Rare H (None) /hpf Urine Mucus Rare H (None) /hpf 08/07/20 Range/Units 06:35 Plt Count (150-450) k/uL Neutrophils # (Manual) (1.3-7.7) k/uL Monocytes # (Manual) (0-1.0) k/uL Metamyelocytes # (Man) (0) k/uL Myelocytes # (Manual) (0) k/uL POC Glucose (mg/dL) 131 H (75-99) mg/dL C-Reactive Protein (<1.0) mg/dL Urine Protein (Negative) Urine Blood (Negative) Ur Leukocyte Esterase (Negative) Urine RBC (0-5) /hpf Amorphous Sediment (None) /hpf Urine Bacteria (None) /hpf Urine Mucus (None) /hpf Assessment and Plan Plan: #1. Acute hypoxic respiratory failure secondary to COVID-19 pneumonia. Patient received toci and convalescent plasma., Patient is status post tracheostomy and PEG tube placement on 07/21/2020. #2. Pancytopenia, the white cell count improved. Platelet counts are still low. The patient has chronic stable hemoglobin dropped. Follow-up CBC was not done from today. #3. Acute ischemic stroke, in right frontal region with mild petechial hemorrhage in the cortical region. Most recent CAT scan from all 08/03/2020 shows evolving subacute hemorrhagic infarct in the right frontal lobe with no significant interval change is having fluctuations mental status and currently because of increased restlessness or agitation is on a combination of clonazepam #4. Acute kidney injury requiring dialysis, has required dialysis #5. Altered mental status, related to toxic metabolic encephalopathy, severe, related to multiple organ dysfunction #6. Severe metabolic acidosis, improved and resolved after dialysis. #7. Hyperkalemia secondary to above, improved with hemodialysis #8. Benign essential hypertension. #9. Heparin-induced thrombocytopenia, patient was on Argatroban and Eliquis which are on hold right now #10. History of obstructive sleep apnea syndrome #11. Morbid obesity #12. Increased d-dimer related to COVID-19, patient was started on Eliquis which will be restarted after his surgical procedures #13. Plugged PEG tube, status post PEG tube revision on 07/26/2020 #15. Was a membrane bleeding #16. Critical illness polyneuropathy, severe generalized weakness #18. Hypernatremia, recovered Plan: Continue supportive care Comfort care measures today With initiate end-of-life care once the patient's family arrives to the hospital. He will likely need a morphine drip and following that he'll be taken off the mechanical ventilator.
[2020-08-07] MEDS: ARIPiprazole 5 MG TAB PO SCH (10:15)
[2020-08-07] MEDS: CHOLESTYRAMINE (WITH SUGAR) 4 GM PACKET PO SCH (10:15)
[2020-08-07] MEDS: SERTRALINE 100 MG TAB PO SCH (10:15)
[2020-08-07] MEDS: metroNIDAZOLE 500 MG TAB PEG/G-TUBE SCH (10:15)
[2020-08-07] MEDS: PANTOPRAZOLE 40 MG/10 ML VIAL IVP SCH (10:15)
[2020-08-07] MEDS: clonazePAM 1 MG TAB PO SCH (10:19)
[2020-08-07] MEDS: HYDROmorphone 1 MG/ML 1 ML SYRINGE IVP PRN (10:19)
[2020-08-07 11:37] LABS: Glucose,Whole Blood 117 mg/dL (75-99)
--- NOTE | 2020-08-07 12:42 | PN ---
PROGRESS NOTE DATE OF SERVICE: 08/07/2020 REASON FOR FOLLOWUP: Fever, pneumonia. INTERVAL HISTORY: The patient overall fever pattern has improved. Afebrile this morning. Did have low grade fever 100.7 last night. The patient is currently on the vent. FiO2 is currently 60%. No significant changes reported by nursing staff. Mentioned possible hospice. PHYSICAL EXAMINATION: Blood pressure 100/65, pulse of 102, temperature of 99.7. He is 99% on 50% FiO2. General description is a middle-aged male intubated on the vent. Respiratory system: Unlabored breathing, decreased intensity of breath sounds. No wheeze. Heart S1, S2. Regular rate and rhythm. Abdomen soft, no tenderness. LABS: No new labs have been obtained today. Urine done yesterday, not significantly positive. DIAGNOSTIC IMPRESSION AND PLAN: Patient with acute respiratory failure which is multifactorial with COVID-19 infection followed by worsening respiratory failure and inability to be extubated, status post trach and PEG with persistent neurological symptoms. The patient did have fever yesterday. Antibiotic has been broadened. Culture has been obtained. Those will be followed. Continue with cefepime, Flagyl. Prognosis remains to be guarded and monitor clinical course closely. MMODL / IJN: [id number] /
[2020-08-07 12:46] VITALS: PULSE 96; TEMP 99.2
[2020-08-07] MEDS ORDERED: ONDANSETRON 4 MG/2 ML VIAL IVP PRN (12:48)
[2020-08-07] MEDS ORDERED: ATROPINE OPHTH SOLN 1% 5ML BTL SUBLINGUAL PRN (12:48)
[2020-08-07] MEDS ORDERED: MORPHINE SULFATE 4 MG/ML SYRINGE IVP ONE (12:48)
[2020-08-07] MEDS ORDERED: MORPHINE SULFATE 2 MG/ML SYRINGE IV PRN (12:48)
[2020-08-07] MEDS ORDERED: MORPHINE SULFATE 4 MG/ML SYRINGE IV PRN (12:48)
[2020-08-07] MEDS ORDERED: MORPHINE SULFATE (100 MG/2 ML) 100 MG in SODIUM CHLORIDE 0.9% 100 ML IV SCH (13:00)
[2020-08-07] MEDS ORDERED: SCOPOLAMINE 1.5MG/72HR PATCH TRANSDERM SCH (13:00)
[2020-08-07] MEDS ORDERED: LORazepam 2 MG/ML INJ IV PRN (14:00)
[2020-08-07 15:06] VITALS: BP 91/61; RESP 24
--- NOTE | 2020-08-08 07:10 | P.PN ---
Subjective Progress Note Date: 08/07/20 Principal diagnosis: 1. COVID pneumonia 2. Pancytopenia due to infection Pt continues to do poorly. Plan on comfort care per family request. Objective - Vital Signs Vital signs: Vital Signs Temp 99.6 F 08/07/20 04:00 Pulse 102 H 08/07/20 07:00 Resp 36 H 08/07/20 07:00 BP 100/65 08/07/20 07:00 Pulse Ox 99 08/07/20 07:00 Intake & Output 08/06/20 08/07/20 08/07/20 18:59 06:59 18:59 Intake Total 574.970 2687.638 86 Output Total 470 395 20 Balance 303.404 926.638 66 Weight 106.8 kg 108.6 kg Intake: IV 650 650 50 Cefepime 2 gm In Sodium 100 Chloride 0.9% 100 ml @ 25 mls/hr IVPB Q12H [facility] Rx# :[id number] Sodium Chloride 0.45% 1, 650 000 ml @ 50 mls/hr IV . Q20H [facility] Rx#:[id number] Sodium Chloride 0.9% 1, 550 50 000 ml @ 50 mls/hr IV . Q20H [facility] Rx#:[id number] Intake, IV Titration 123.404 140.638 Amount Cefepime 2 gm In Sodium 100 Chloride 0.9% 100 ml @ 25 mls/hr IVPB Q12H [facility] Rx# :[id number] Dexmedetomidine/0.9% NaCl 23.404 140.638 (Pmx) 400 mcg In Empty Bag 1 bag @ Titrate IV . Q0M [facility] Rx#:[id number] Tube Feeding 432 36 Other 99 Output: Urine 470 395 20 Other: Voiding Method Indwelling Catheter Indwelling Catheter ABP, PAP, CO, CI - Last Documented Arterial Blood Pressure 118/64 - Exam Due to concerns of COVID-19 detection/exposure, in an effort to limit healthcare provider exposure and transmission, parts of the encounter may have been obtained through chart review, family members, telephone/video visits, and/or discussion with primary team/nursing and ancillary staff. - Labs CBC & Chem 7: 08/06/20 06:39 08/06/20 06:39 Labs: Abnormal Lab Results - Last 24 Hours (Table) 08/06/20 08/06/20 08/06/20 Range/Units 06:39 11:37 15:14 Plt Count 43 L (150-450) k/uL Neutrophils # (Manual) 21.00 H (1.3-7.7) k/uL Monocytes # (Manual) 1.86 H (0-1.0) k/uL Metamyelocytes # (Man) 0.80 H (0) k/uL Myelocytes # (Manual) 1.06 H (0) k/uL POC Glucose (mg/dL) 119 H (75-99) mg/dL C-Reactive Protein 15.9 H (<1.0) mg/dL Urine Protein (Negative) Urine Blood (Negative) Ur Leukocyte Esterase (Negative) Urine RBC (0-5) /hpf Amorphous Sediment (None) /hpf Urine Bacteria (None) /hpf Urine Mucus (None) /hpf 08/06/20 08/06/20 08/06/20 Range/Units 18:40 23:32 Unknown Plt Count (150-450) k/uL Neutrophils # (Manual) (1.3-7.7) k/uL Monocytes # (Manual) (0-1.0) k/uL Metamyelocytes # (Man) (0) k/uL Myelocytes # (Manual) (0) k/uL POC Glucose (mg/dL) 119 H 113 H (75-99) mg/dL C-Reactive Protein (<1.0) mg/dL Urine Protein 1+ H (Negative) Urine Blood Moderate H (Negative) Ur Leukocyte Esterase Trace H (Negative) Urine RBC 17 H (0-5) /hpf Amorphous Sediment Few H (None) /hpf Urine Bacteria Rare H (None) /hpf Urine Mucus Rare H (None) /hpf 08/07/20 Range/Units 06:35 Plt Count (150-450) k/uL Neutrophils # (Manual) (1.3-7.7) k/uL Monocytes # (Manual) (0-1.0) k/uL Metamyelocytes # (Man) (0) k/uL Myelocytes # (Manual) (0) k/uL POC Glucose (mg/dL) 131 H (75-99) mg/dL C-Reactive Protein (<1.0) mg/dL Urine Protein (Negative) Urine Blood (Negative) Ur Leukocyte Esterase (Negative) Urine RBC (0-5) /hpf Amorphous Sediment (None) /hpf Urine Bacteria (None) /hpf Urine Mucus (None) /hpf Assessment and Plan Assessment: 1. COVID pneumonia 2. Pancytopenia Plan: Mr. Malcolm is a 59 yo male here for COVID pneumonia, doing poorly, and with pancytopenia due to severe infection. After primary/pulmonary team's discussion with family, plan is to pursue comfort care. Due to concerns of COVID-19 detection/exposure, in an effort to limit healthcare provider exposure and transmission, parts of the encounter may have been obtained through chart review, family members, telephone/video visits, and/or discussion with primary team/nursing and ancillary staff.
--- NOTE | 2020-08-08 15:51 | P.PN ---
Subjective Progress Note Date: 08/05/20 08/05/2020: Patient was seen for a follow-up. Patient is on Precedex 0.7 g per kg per minute. Patient is more awake today. He does follow commands as per examination. Patient denies headache. 08/04/2020: Patient essentially unchanged. Patient on Precedex 0.7 mcg/kg/m. Patient opens eyes, moves his lower extremities, but does not move his upper extremities. He grimaces. Patient is getting dialysis now. BUN is 165, creatinine 3.15. 08/03/2020: Neurology was reconsulted to check on the computed tomography scan of head that was performed today. Per nursing report, he is on Precedex 0.3 mcg/kg/m. Patient has tracheostomy. Please refer to examination below. No seizure-like activity. Objective - Vital Signs Vital signs: Vital Signs Temp 98.3 F 08/05/20 16:00 Pulse 105 H 08/05/20 19:00 Resp 49 H 08/05/20 19:00 BP 130/83 08/05/20 19:00 Pulse Ox 92 L 08/05/20 19:00 Intake & Output 08/05/20 08/05/20 08/06/20 06:59 18:59 06:59 Intake Total 2070.066 2450.597 98 Output Total 155 1850 30 Balance 1915.066 600.597 68 Weight 105 kg Intake: IV 450 600 50 Sodium Chloride 0.45% 1, 450 600 50 000 ml @ 50 mls/hr IV . Q20H [facility] Rx#:[id number] Intake, IV Titration 275.066 17.597 Amount Dexmedetomidine/0.9% NaCl 92.299 17.597 (Pmx) 400 mcg In Empty Bag 1 bag @ Titrate IV . Q0M [facility] Rx#:[id number] Norepinephrine 8 mg In 132.767 0 Sodium Chloride 0.9% 250 ml @ 0.05 MCG/KG/MIN 9. 849 mls/hr IV .Q24H [facility] Rx#:[id number] Sodium Chloride 0.45% 1, 50 000 ml @ 50 mls/hr IV . Q20H [facility] Rx#:[id number] Tube Feeding 520 520 48 Blood Product 563 Platelet Pheresis Acd-A 284 Pasc 2 Unit [id number] Rc Pheresis As-3 Unit 279 [id number] Other 825 750 Output: Urine 155 350 30 Hemodialysis 1500 Other: Voiding Method Indwelling Catheter Indwelling Catheter ABP, PAP, CO, CI - Last Documented Arterial Blood Pressure 118/64 - Exam On examination patient is a middle aged male, much more awake, open eyes. Pupils are round and reacting. Patient tracked to the sides, made eye contact. Patient even turned his head towords the nurse when she called his nam e. Patient also began his toes on commands. Not able to move his hands, which are severely weak. Patient has tracheostomy in place. Patient has demarcation of the fingertips of the left hand from ischemia. It is evolving. Reflexes are absent, plantars are flat. Patient has moderate peripheral edema. - Labs CBC & Chem 7: 08/06/20 06:39 08/06/20 06:39 Labs: Abnormal Lab Results - Last 24 Hours (Table) 08/05/20 08/05/20 08/05/20 Range/Units 00:00 06:05 06:08 WBC 14.1 H (3.8-10.6) k/uL RBC 2.22 L (4.30-5.90) m/uL Hgb 6.4 L* (13.0-17.5) gm/dL Hct 20.2 L (39.0-53.0) % RDW 16.7 H (11.5-15.5) % Plt Count 13 L* (150-450) k/uL ABG pH (7.35-7.45) ABG pCO2 (35-45) mmHg ABG pO2 (83-108) mmHg ABG Total CO2 (19-24) mmol/L ABG O2 Saturation (94-97) % Sodium (137-145) mmol/L Potassium (3.5-5.1) mmol/L Chloride (98-107) mmol/L Carbon Dioxide (22-30) mmol/L BUN (9-20) mg/dL Creatinine (0.66-1.25) mg/dL Glucose (74-99) mg/dL POC Glucose (mg/dL) 136 H 123 H (75-99) mg/dL Calcium (8.4-10.2) mg/dL Crossmatch 08/05/20 08/05/20 08/05/20 Range/Units 06:08 06:16 08:50 WBC (3.8-10.6) k/uL RBC (4.30-5.90) m/uL Hgb (13.0-17.5) gm/dL Hct (39.0-53.0) % RDW (11.5-15.5) % Plt Count (150-450) k/uL ABG pH 7.50 H (7.35-7.45) ABG pCO2 31 L (35-45) mmHg ABG pO2 56 L* (83-108) mmHg ABG Total CO2 25 H (19-24) mmol/L ABG O2 Saturation 89.8 L (94-97) % Sodium (137-145) mmol/L Potassium 3.4 L (3.5-5.1) mmol/L Chloride (98-107) mmol/L Carbon Dioxide (22-30) mmol/L BUN 108 H* (9-20) mg/dL Creatinine 2.74 H (0.66-1.25) mg/dL Glucose 109 H (74-99) mg/dL POC Glucose (mg/dL) 126 H (75-99) mg/dL Calcium 8.2 L (8.4-10.2) mg/dL Crossmatch 08/05/20 08/05/20 08/05/20 Range/Units 08:56 11:25 17:56 WBC (3.8-10.6) k/uL RBC (4.30-5.90) m/uL Hgb (13.0-17.5) gm/dL Hct (39.0-53.0) % RDW (11.5-15.5) % Plt Count (150-450) k/uL ABG pH (7.35-7.45) ABG pCO2 (35-45) mmHg ABG pO2 (83-108) mmHg ABG Total CO2 (19-24) mmol/L ABG O2 Saturation (94-97) % Sodium (137-145) mmol/L Potassium (3.5-5.1) mmol/L Chloride (98-107) mmol/L Carbon Dioxide (22-30) mmol/L BUN (9-20) mg/dL Creatinine (0.66-1.25) mg/dL Glucose (74-99) mg/dL POC Glucose (mg/dL) 128 H 124 H (75-99) mg/dL Calcium (8.4-10.2) mg/dL Crossmatch See Detail 08/05/20 08/05/20 08/05/20 Range/Units 18:14 18:14 18:33 WBC 17.6 H (3.8-10.6) k/uL RBC 2.38 L (4.30-5.90) m/uL Hgb 7.2 L (13.0-17.5) gm/dL Hct 21.6 L (39.0-53.0) % RDW 16.2 H (11.5-15.5) % Plt Count 31 L D (150-450) k/uL ABG pH (7.35-7.45) ABG pCO2 (35-45) mmHg ABG pO2 (83-108) mmHg ABG Total CO2 (19-24) mmol/L ABG O2 Saturation (94-97) % Sodium 136 L (137-145) mmol/L Potassium (3.5-5.1) mmol/L Chloride 109 H (98-107) mmol/L Carbon Dioxide 21 L (22-30) mmol/L BUN 56 H (9-20) mg/dL Creatinine 1.80 H (0.66-1.25) mg/dL Glucose 113 H (74-99) mg/dL POC Glucose (mg/dL) 113 H (75-99) mg/dL Calcium 8.0 L (8.4-10.2) mg/dL Crossmatch Assessment and Plan Assessment: * Toxic metabolic encephalopathy, slightly improved. Reasons multifactorial as mentioned. * Acute ischemic stroke small, right frontal region with mild petechial hemorrhage in the cortical ribbon. * Acute kidney injury requiring hemodialysis. Patient undergoing hemodialysis today. * Acute hypoxic respiratory failure from COVID-19 related pneumonia, status post tracheostomy. * Severe Pancytopenia. Patient had leukopenia, controlled on Aranesp * Severe thrombocytopenia with platelets 15,000. * Status post revision of PEG tube. * Left hand ischemia * Anemia hemoglobin 7.2 * Hypertension * Morbid obesity * Legal blindness * Obstructive sleep apnea * Superficial venous thrombosis Plan: * Patient is slightly improving clinically, but still has severe neurological deficits from critical illness neuropathy, generalized weakness. His mentation has improved, following commands as above. Patient however has severe comorbid conditions which also affects overall prognosis very adversely. * Patient had a repeat computed tomography scan of head performed 08/03/2020, which revealed stable findings, evolving subacute hemorrhagic infarct right frontal lobe redemonstrated. Overall it has not changed significantly since the initial study on 07/22/2020. Patient is severely thrombocytopenic. Okay to stop aspirin, due to risk of more ICH. May resume aspirin when medically feasible. * Carotid Doppler showed no hemodynamic significant stenosis of the proximal ICA. * 2-D echo from 07/06/2020 showed normal left-ventricular size. Moderate concentric LVH. EF is 55-60%. Right ventricle is severely enlarged. Mild TR. * Patient's toxic metabolic encephalopathy has improved. He continues to be severely encephalopathic. Patient is awake, blinks, but minimal response to external stimuli and still does not following commands at least on my examina tion. 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 * EEG 07/20/2020 also revealed severe degree of background slowing consistent with encephalopathy. No epileptiform activity seen. * Prognosis is still very guarded based upon his current neurological status, physical examination and underlying multiple comorbid conditions. * Patient was on on Apixaban for superficial venous thrombosis, which was discontinued on 07/19/2020 for anticipation for tracheostomy. * Patient is status post PEG tube replacement. * Neurology will follow sporadically.
--- NOTE | 2020-08-20 10:26 | P.PN ---
Subjective Progress Note Date: 08/07/20 Principal diagnosis: Acute hypoxic respiratory failure secondary to Covid pneumonia requiring mechanical ventilation Acute kidney injury requiring hemodialysis This is a pleasant 53 years old male with past medical history of hypertension, osteoarthritis, sleep apnea. Presents with respiratory distress secondary to covid pneumonia and secondary bacterial infection is suspected as well with positive sputum culture for streptococcus, group C. Patient is currently monitored in the ICU because of his respiratory failure, currently on mechanical ventilation and need a small dose of Levophed at 4 g today. Also patient has elevated troponin and he was started on heparin drip however he developed coffee-ground emesis via anicteric tube, heparin drip was stopped and hemoglobin is stable and normal at 12.4 today. Distribution Agent found to his elevated troponin is secondary to his Covid infection and hypotension, Lovenox is on hold although patient has elevated d-dimer due to coffee ground vomiting. Distal sedation, his blood pressure is marginal 104/60 this morning. Pulmonary team performed closely and help with vent management, his PEEP was increased today from 15-18. His oxygen saturation is guarded at 100% with FiO2 of 70%. Patient has marginal urine output at 20 mL/h and continue with normal saline at 80 mL per hour 07/09/2020 Patient remains in critical condition in the ICU, he is sedated and on mechanical ventilation with pulmonary/critical care team followed closely and management. He still needs high PEEP at 18. Today he had suspected left hand coldness and vascular surgery consult, no intervention indicated given his critical guarded condition. He had coffee-ground emesis yesterday and no such episodes, his aspirin was held as well as his Lovenox and switch his anticoagulation into argatroban drip . 4 dropping platelets 90,to 76K today. It NT chase is pending. His creatinine is worsening with nephrology on the case and patient was started on bicarbonate drip, his normal saline at 80 mL per hour was stopped He remains on ceftriaxone 2 g daily for sputum culture positive with streptococcus group C. Also he is on zinc, vitamin D, dexamethasone, Protonix twice daily and Carafate 07/10/2020 Patient remains in the ICU intubated and sedated with pulmonary/critical care team managing his friend, currently he is on PEEP 18 dropped to 15 today by pulmonary team. Despite his history of coffee ground vomitus he was started on argatroban drip for suspected left hand ischemia . Also he is on mild septic shock secondary to bacterial superimposed infection with streptococcus group C found in the blood and sputum cultures on the top of his bilateral Covid pneumonia. He has increased troponin leak secondary to Covid and creatinine is still elevated at 4.1 and followed closely by nephrology team Patient is tachypneic at 36 and blood pressure 121/51 Labs showing trending down WBC to 12.8 K, hemoglobin dropped to 8.9 and Carafate was stopped by coronary team. Platelets are stable 70 6K yesterday and 70 8K today. C-reactive protein is down to 16. Chest x-ray showing bilateral infiltrates. D-dimer was elevated at 34 and throatcalcitonin of 0.23 He remains on ceftriaxone 2 g per ID team, on zinc, vitamin D. Bicarbonate drip,argatroban drip, Protonix twice a day. While aspirating is kept on hold 07/11/2020 Patient in the ICU intubated and sedated. Followed by several consultants Left hand is improving however it is still dusky/bluish color. Tube feeding is in home due to coffee ground emesis. Vent management per pulmonary team, currently PEEP is lowered from 15 down to 10, hit antibodies are positive. Labs showing WBC 18 K, hemoglobin 10.0, platelets 141, creatinine is stable since yesterday at 4.1, LDH is a 1055, C-reactive protein is 13 only. On 07/10 patient was started on hemodialysis for worsening kidney function and creatinine and potassium with low urine output he is still sedated with Nimbex. Tube feeding was on hold due to his history of coffee ground vomitus recently. After the patient remains on argatroban and levophed drip Platelets 141, hemoglobin down to 10.0 K, WBC down to 18 LDH is 1055 and C-reactive protein is within the reference range at 13. Patient is afebrile. In the emergency room he was started on ceftriaxone for Covid and possible superinfection. Also sodium bicarb Was stopped and switched to tablets, normal saline is ordered by primary team, continue with argatroban drip . Also patient is an Protonix and dexamethasone and vitamins. Aspirin was disc ontinued as well as Lovenox. 07/13/2020 Patient was admitted hospital due to acute hypoxic respiratory failure and is currently on mechanical ventilator. Patient also developed acute kidney injury requiring hemodialysis. Patient is sedated. Assist-control 450, FiO2 50% and PEEP of 10. Patient is requiring low-dose norepinephrine drip. Afebrile. Chest x-ray showed relatively similar mid and lower lung consolidation left greater than right. Laboratory data showed WBC 13.7 hemoglobin 9.2 platelets 112 lymphocytes 0.6 D-dimer 13.34 Sodium 132 potassium 4.4 chloride 100 BUN 18 creatinine 3.57 calcium 8.3 phosphorus 8.0 ferritin 847 bilirubin 1.9 AST 71, ALT 93 LDH 1021 CK 406 CRP 70.8 and procalcitonin 0.58. Pulmonary and nephrology is on board. 07/14/2020 Patient is currently in MICU on mechanical ventilator and sedated. Assist- control 450 FiO2 50% and PEEP of 10 and respiratory 28. Chest x-ray showed stable bilateral lung infiltrates greater on the left. Laboratory data showed WBC 12.2 hemoglobin 8.7 platelets 121 lymphocytes 0.5 D- dimer is 9.42 BUN 96 and creatinine 3.97 calcium 8.4 ferritin 775 total bilirubin 1.7, AST 57 ALT 68 alk phos 87 LDH 1062 CPK 231 CRP 87.2 Patient is still low-dose norepinephrine drip. Continued on enteral feeding. Patient is scheduled for hemodialysis today. Patient is being continued dexamethasone, Eliquis and multivitamins. Pulmonary nephrology is following. 07/15/2020 Patient is currently in the MICU on mechanical ventilator. AC 450, FiO2 50% and PEEP of 8. Chest x-ray showed worsening bilateral lung infiltrates. Patient has been afebrile and requiring norepinephrine low-dose pressor support. Laboratory data showed WBC 11.6 hemoglobin 8.4 RDW 15.7 platelets 132 D-dimer is 9.0 sodium 130 potassium 4.4 bicarb is 22 BUN 84 and creatinine 3.73 ferritin 81 1.6 LDH 1061 CRP 78.3. Patient is being continued on dexamethasone and Eliquis and multivitamins. Continued on enteral tube feeding. Condition unchanged from yesterday. 07/16/2020 Patient is currently on mechanical ventilator and sedated. This is controlled for 50 respiration 28 and PEEP of 8. FiO2 70%. Chest x-ray showed unchanged appearance of patchy opacities involving the left lung and right base. Stable lines and tubes. Overnight patient was hypotensive and started back on Levophed drip. Patient is being dialyzed today. Currently on tube feeding. Laboratory data showed WBC 11.6 hemoglobin 9.5 platelets 134 neutrophils 10.3 and lymphocytes 0.6 D-dimer level is 9.95 Sodium 133 potassium 4.1 BUN 91 creatinine 3.93 ferritin 729 AST 49 ALT 52 alk phos 108 lactic acid 1103 CRP 62.7 07/17/2020 Patient is currently in the MICU. Patient was given sedation holiday yesterday was subsequently he decompensated and hypoxic and was placed back on sedation. On assist-control 450 with FiO2 60% and PEEP of 8. Patient able to tolerate hemodialysis with 2 L ultrafiltration yesterday. Currently on low-dose norepinephrine drip. Chest x-ray showed diffuse pulmonary infiltrates unchanged without any major interval changes. Laboratory data showed WBC 13.0, hemoglobin 8.2, d-dimer 6.05 Sodium 132 potassium 4.2 BUN 76 and creatinine 3.41, LDH 889 and CRP 4.4 Pulmonary and nephrology is on board. 07/18/2020 Patient is MICU currently sedated and paralyzed and on mechanical ventilator. Assist-control 450 FiO2 50% and PEEP of 8. Chest x-ray showed bilateral mul tifocal and confluent opacities consistent with COVID-19 infection. No significant interval change from one day earlier. Laboratory data showed WBC 10.5, hemoglobin 8.5 platelets 129 d-dimer 5.4, fib ular nose and 576, sodium 1:30 potassium 4.1 BUN 84 and a creatinine 3.74 blood sugar is controlled, LDH 855 and CRP 5.2 by Pulmonary nephrology is following. Patient has been afebrile. Tolerating tube feeding. Continued on and abuts the form of ceftriaxone, dexamethasone 6 mg IV daily and added IV Lasix 80 mg every 12 as blood pressure tolerates. Blood cultures grew coagulase-negative staph aureus. 07/19/2020 Patient is currently on mechanical ventilator. Patient failed weaning trials. Gen. surgery was consulted for possible tracheostomy and PEG tube placement On assist-control 450 FiO2 50% and PEEP of 6. Chest x-ray showed bilateral pulmonary infiltrates involving lower lobes without much change. Laboratory data showed WBC 9.1 hemoglobin 8.9 which is 148 d-dimer 6.68 sodium 135 potassium 3.9. 91 and creatinine 4.51 Sputum cultures grew beta hemolytic Streptococcus and Armida albicans. Repeat blood culture have been negative. Patient is being continued on ceftriaxone. 07/20/2020 Patient is currently in the MICU, remains intubated. Patient tolerated sedation holiday for 11 hours and was following simple commands. Patient became tachypneic and agitated and was started back on Diprivan. Chest x-ray showed interval improvement in bilateral airspace infiltrates particularly in the right upper lobe. Tolerating tube feeding. Patient is scheduled for tracheostomy and PEG tube placement. Otherwise patient is being continued on IV Lasix. Continue antibiotics been on ceftriaxone, dexamethasone. Laboratory showed WBC 8.1 hemoglobin 8.1 platelets 126 D-dimer 13.38 Eliquis on hold due to pending surgery. Sodium 133 potassium 3.7 BUN 82 and creatinine 4.5 ferritin 1037, LDH 792 Pulmonary, neurology and general surgery is on board. 07/21/2020 Patient is currently remained medically ventilated. Sedated. Chest x-ray showed interval improvement suggested in the bilateral airspace infiltrates particularly in the right upper lobe. Patient is scheduled for tracheostomy and PEG tube placement today. Laboratory data showed WBC 7.1 hemoglobin 7.4 and platelets 120 Sodium 138 potassium 3.2 BUN 75 creatinine 4.01 Patient is being continued on antibiotics at home ceftriaxone. Continued on deferoxamine and Lasix. Eliquis is on hold due to schedule surgery. 07/22/2020 Patient is currently in the MICU. Status post tracheostomy and PEG tube placement on 07/21/2020 On ventilator via trach, FiO2 50% PEEP of 6. ABG showed pH 7.36, pCO2 40 and pO2 169. Patient is also on low-dose Levophed.. Chest x-ray showed bilateral multifocal and confluent opacities consistent with COVID-19 infection with no significant interval change.. Patient is continued on ceftriaxone with sputum cultures growing strep species. 2 feedings intake started today. Otherwise patient is being continued on dexamethasone 6 g daily and Eliquis to be started once cleared by surgery. Ben chan does have good urine output. Afebrile. Neurology and surgery and pulmonary is on board. 07/23/2020 Patient is currently in the intensive care unit. On mechanical ventilation to the tracheostomy tube. Assist-control 450 FiO2 40% and PEEP of 5. ABG showed pH 7.39 pCO2 43 pO2 149. Patient was given sedation holiday yesterday however patient did not wake up. Neurology was consulted CT brain was ordered. Showed decreased attenuation within the right frontal lobe without cortical increased attenuation which could reflect petechial hemorrhage. Patient is currently not on any anti-Coblation. Eliquis is on hold since 07/19/2020. Hemoglobin 7.4 and platelets 105. D-dimer 8.18. Patient is not on any aspirin and Plavix at this time. PEG tube became plugged when the crescendo oral medications were being instilled through the PEG tube. Surgery was notified and the PACU was removed. Planning for NG tube placement. Otherwise patient is being continued on ceftriaxone for beta-hemolytic streptococcus in the sputum suctioned. Patient had hemodialysis on 07/21/2020 with 2.5 L ultrafiltration. Laboratory data showed sodium 136 potassium 3.5 chloride 104 bicarb 22 BUN 54 and creatin ine 2.6. Patient remained on IV Lasix 80 mg twice daily. Patient does have urine output. A Lasix 40 CRP 5.6 Chest x-ray showed diffuse bilateral groundglass airspace disease/pulmonary edema with current small pleural effusion with adjacent atelectasis. Pulmonary and neurology and nephrology is on board. 07/24/2020 Patient is currently in intensive care unit. Status post tracheostomy. On [facility] hanical ventilator assist control with tidal volume 4 50 mL, FiO2 40% and PEEP of 5. PEG tube feeding is on hold due to blockages and started on TPN. Off pressor support. Anticoagulation is also on hold. Neurology is following. CT showed repeat it is of subarachnoid hemorrhage associated with abnormal hypodensity posterior laterally in the right frontal lobe was again noted. Not significantly changed.. Possible acute ischemic stroke with small right frontal region and with a mild petechial hemorrhage in the cortical ribbon as per neurology. Patient is being continued on antibiotics the form of ceftriaxone. Continued on IV Lasix 80 mg twice daily. Patient does have urine output. Laboratory data showed diabetes. 4.1 hemoglobin 7.4 BUN 68 and creatinine 3.54 Patient is being followed by neurology, pulmonary and nephrology. 07/25/2020 Patient is currently in the MICU. Status post tracheostomy and PEG tube placement. Patient is able to open his eyes and move extremities with verbal commands.. He does have left-sided eye droop. Neurologist plan for repeat CT scan tomorrow. Patient is also scheduled for AGNIESZKA and PEG tube replacement tomorrow. Currently patient is being continued on TPN. Chest x-ray showed findings similar to prior exam. Correlate for volume overload, pneumonia, edema, renal failure. Patient is being continued Lasix 80 mg twice daily. Also on dexamethasone and anticoagulation is on hold due to areas of subarachnoid hemorrhage and the most recent CT head. Laboratory data showed WBC 2.1, hemoglobin 7.4 and platelets 138 BUN 78 and creatinine 3.65 ferritin 850 LDH 654 and CRP 5.9. Critical care care team, nephrology and neurology is following. 08/03/2020 Patient is currently in MICU. Profile reviewed. Off sedation. Remains ventilation via trach. Patient is tachypneic and using abdominal muscles. Currently assist control 500 rate of 24 FiO2 25% and PEEP of 4 Chest x-ray showed tracheostomy tube in upper trachea. Right lower lobe pulmonary infiltrate slightly improved and known evidence of pneumothorax. Laboratory data showed BUN 135 and creatinine 2.8 patient does have urine output. Currently on antibiotics day 7 Eraxis due to fungal infections in the catheter tip, sputum and urine. Nephrology is following and not planning for hemodialysis today. WBC 1.6 and hemoglobin 7.6 and platelets 18. Currently not on any anticoagulation since yesterday. 08/04/2020 Patient is in the MICU. Status post tracheostomy and PEG tube placement. Currently vent via trach. Off sedation for several days. Able to open his eyes with verbal commands. Unable to move his extremities and is very weak. Currently assist control with rate of 24 and tidal volume 500 FiO2 25% and PEEP of 5. Chest x-ray showed stable appearance of patchy bilateral infiltrates. Patient is currently PEG tube feeding with Nepro laboratory data showed WBC 7.9 hemoglobin 7.2 platelets 15 and received 1 unit of platelets yesterday. Sodium level is 146 potassium 3.9 chloride 114 bicarb is 19 blood sugar is 165 and creatinine level 3.15 AST 78 and ALT 191 alk phos 206. Currently on antibiotics in the form of Flagyl. ID is on board. Neck wound cultures showing interval gram-negative bacilli. Final culture is pending. Patient did complete Eraxis for candidal urinary tract infection. T-max 101.1 and patient is tachycardic remains in s inus rhythm. Hemodialysis is scheduled for today. 08/05/2020 Patient is currently in the MICU. Denies ventilator via tracheostomy. FiO2 25% and PEEP of 5. Tidal volume 500 assist-control. Patient is tachypneic and using accessory muscles of breathing. Letter will be increased to 40%. Otherwise patient is alert and opens his eyes with verbal commands. Follows simple commands. Otherwise patient is extremely weak and able to move his lower extremities but not upper extremities. T-max is 100.3 and patient is being continued on Flagyl, cefepime and Eraxis which are stopped today. Tracheostomy tube site infection with cultures growing gram-negative bacilli and final culture report is pending. Lab data showed WBC 14.1 hemoglobin 6.4 platelets 13,000 sodium 138 potassium 3.4 BUN 108 and creatinine 2.74. Patient underwent hemodialysis yesterday. Patient is being transfused with 1 unit of PRBC. Also receiving 1 unit of platelets. Remains on tube feeding and also with fecal management system. 08/06/2020 Patient remains in ICU and is off sedation for several days. Still tachypneic a nd using accessory muscles of respiration. Currently mechanical ventilator assist control 400 FiO2 40% PEEP of 5. FiO2 increased to 80% today. Patient underwent hemodialysis yesterday. Patient is also being treated with antibiotics in the form of cefepime for tracheostomy site infection. ID is on board. Patient is able to blink his eyes and move his lower extremities. Extremity weak otherwise. Neurology is on board. Repeat CT head was done couple days ago showed no new changes. Patient does have hemorrhagic stroke which is stable. Hemoglobin is stable at 8 and WBC count increased to 26. GCF was discontinued. Laboratory data showed platelets 43,000, D-dimer 4.84, BUN 69 and creatinine 2.15 calcium 8.3 bilirubin 1.6 AST 65 ALT 111 alk phos 249 and CRP 15.4. Patient is being followed by pulmonary, nephrology, neurology, ID and general surgery. 08/07/2020 Patient is currently in the MICU. Remains on mechanical ventilator with assist control tidal volume 400 FiO2 60% and PEEP of 5. Respiration rate of 24. Due to poor prognosis and after discussing with the family, family has decided to go with comfort measures. Currently being continued on supportive care only. Otherwise patient is unresponsive and does not follow simple commands. Resting in the bed comfortably. Continued on IV hydration and tube feeding with Nepro at 36/mL/h. No significant overnight changes. Patient be continued on comfort measures at this time. Current medications reviewed. Objective - Vital Signs Vital signs: Vital Signs Temp 99.2 F 08/07/20 12:00 Pulse 96 08/07/20 14:00 Resp 24 08/07/20 14:00 BP 91/61 08/07/20 14:00 Pulse Ox 99 08/07/20 14:00 Intake & Output 08/06/20 08/07/20 08/07/20 18:59 06:59 18:59 Intake Total 437.704 5871.638 762.413 Output Total 470 395 230 Balance 303.404 926.638 532.413 Weight 106.8 kg 108.6 kg Intake: IV 650 650 300 Cefepime 2 gm In Sodium 100 Chloride 0.9% 100 ml @ 25 mls/hr IVPB Q12H PRAFUL Rx# :[id number] Sodium Chloride 0.45% 1, 650 000 ml @ 50 mls/hr IV . Q20H PRAFUL Rx#:[id number] Sodium Chloride 0.9% 1, 550 300 000 ml @ 50 mls/hr IV . Q20H PRAFUL Rx#:[id number] Intake, IV Titration 123.404 140.638 213.413 Amount Cefepime 2 gm In Sodium 100 Chloride 0.9% 100 ml @ 25 mls/hr IVPB Q12H PRAFUL Rx# :[id number] Dexmedetomidine/0.9% NaCl 23.404 140.638 99.057 (Pmx) 400 mcg In Empty Bag 1 bag @ Titrate IV . Q0M PRAFUL Rx#:[id number] Morphine Sulfate (100 mg/ 12.104 2 ml) 100 mg In Sodium Chloride 0.9% 100 ml @ 1 MG/HR 1.02 mls/hr IV . Q24H [facility]AFUL Rx#:[id number] Norepinephrine 8 mg In 102.252 Sodium Chloride 0.9% 250 ml @ 0.05 MCG/KG/MIN 9. 849 mls/hr IV .Q24H PRAFUL Rx#:[id number] Tube Feeding 432 216 Other 99 33 Output: Urine 470 395 230 Other: Voiding Method Indwelling Catheter Indwelling Catheter ABP, PAP, CO, CI - Last Documented Arterial Blood Pressure 118/64 - Exam - Exam -GENERAL: The patient is intubated with a tracheostomy. not sedated, well nourished. HEENT: Pupils are round and equally reacting to light. No scleral icterus. No conjunctival pallor. Normocephalic, atraumatic. No pharyngeal erythema. No thyromegaly. CARDIOVASCULAR: S1 and S2 present. No murmurs, rubs, or gallops. PULMONARY: Chest is clear to auscultation, no wheezing or crackles. ABDOMEN: Soft, nontender, nondistended, normoactive bowel sounds. No palpable organomegaly. MUSCULOSKELETAL: No joint swelling or deformity. EXTREMITIES: No cyanosis, clubbing, or pedal edema. NEUROLOGICAL: unresponsive, does not follow simple commands. SKIN: No rashes. no petechiae. - Labs CBC & Chem 7: 08/06/20 06:39 08/06/20 06:39 Labs: Abnormal Lab Results - Last 24 Hours (Table) 08/06/20 08/06/20 08/06/20 Range/Units 15:14 15:14 18:40 POC Glucose (mg/dL) 119 H (75-99) mg/dL C-Reactive Protein 15.9 H (<1.0) mg/dL Procalcitonin 1.06 H (0.02-0.09) ng/mL Urine Protein (Negative) Urine Blood (Negative) Ur Leukocyte Esterase (Negative) Urine RBC (0-5) /hpf Amorphous Sediment (None) /hpf Urine Bacteria (None) /hpf Urine Mucus (None) /hpf 08/06/20 08/06/20 08/07/20 Range/Units 23:32 Unknown 06:35 POC Glucose (mg/dL) 113 H 131 H (75-99) mg/dL C-Reactive Protein (<1.0) mg/dL Procalcitonin (0.02-0.09) ng/mL Urine Protein 1+ H (Negative) Urine Blood Moderate H (Negative) Ur Leukocyte Esterase Trace H (Negative) Urine RBC 17 H (0-5) /hpf Amorphous Sediment Few H (None) /hpf Urine Bacteria Rare H (None) /hpf Urine Mucus Rare H (None) /hpf 08/07/20 Range/Units 11:36 POC Glucose (mg/dL) 117 H (75-99) mg/dL C-Reactive Protein (<1.0) mg/dL Procalcitonin (0.02-0.09) ng/mL Urine Protein (Negative) Urine Blood (Negative) Ur Leukocyte Esterase (Negative) Urine RBC (0-5) /hpf Amorphous Sediment (None) /hpf Urine Bacteria (None) /hpf Urine Mucus (None) /hpf Assessment and Plan Assessment: Acute Covid pneumonia Acute hypoxic respiratory failure needing mechanical ventilation. Status post tracheostomy and PEG tube placement on 07/21/2020. Tracheostomy site infection. Altered mental status likely due to toxic metabolic encephalopathy and multiple organ dysfunction. Acute ischemic stroke petechial hemorrhage within the right frontal lobe as per CT brain. Neurology is on board. AGNIESZKA on 07/26/2020 Toxic metabolic encephalopathy Pancytopenia secondary to infection. WBC count improved and hemoglobin stable. Still thrombocytopenic. Acute kidney injury Due to ATN. Currently requiring HD Severe metabolic acidosis and hyperkalemia improved with hemodialysis Coagulase-negative staph aureus bacteremia Beta-hemolytic streptococcal for wound cultures. Hypotension/septic shock requiring low-dose norepinephrine. Left upper extremity negative for DVT. Superficial thrombus in the left cephalic vein and left base leg pain Heparin-induced thrombocytopenia. Changed to argatroban and currently on Eliquis. Suspected ischemia of the left hand on anticoagulation and draped Coffee ground vomiting with suspected acute GI bleed Thrombocytopenia Elevated troponin, secondary to renal function impairment, viral infection and hypotension Plan: This is a pleasant 59 years old male who presents with Covid pneumonia, possible bacterial pneumonia/. Continue with mechanical ventilation for pulmonary/critical care team will follow the patient closely. Continue with multiple vitamin zinc and vitamin D . Eliquis on hold . Continue with bicarbonate Keep monitoring hemoglobin and platelets. Infectious disease, GI and cardiology, nephrology team on the case Patient is status post tracheostomy and PEG tube placement Patient was found to have left eyelid droop. CT head showed subarachnoid hemorrhage with right frontal lobe involvement. Neurology is on board. Patient continues to be encephalopathy and not showing any clinical improvement. Labs and medication were reviewed. Monitor lytes and vitals. DVT and GI prophylaxis. Further recommendations as per clinical course of the patient DVT prophylaxis:Eliquis 2.5mg BID on hold currently GI Prophylaxis: Ppi, Protonix twice a day Prognosis is poor Time with Patient: Greater than 30
--- NOTE | 2020-08-20 10:29 | P.DS ---
Providers Date of admission: 07/05/20 04:36 Expected date of discharge: 08/07/20 Attending physician: Jason Duncan Consults: 07/04/20 19:58 Consult Physician Urgent Consulting Provider: Katya Lora Consult Reason/Comments: Covid Do you want consulting provider notified?: Yes 07/04/20 20:54 Consult Physician Routine Consulting Provider: Javi Arreola Consult Reason/Comments: high trops Do you want consulting provider notified?: Yes 07/05/20 14:15 Consult Physician Urgent Consulting Provider: Johnnie Finley Consult Reason/Comments: covid + pt; ICU Do you want consulting provider notified?: Yes 07/09/20 08:06 Consult Physician Urgent Consulting Provider: Jericho Rossi Consult Reason/Comments: Renal failure Do you want consulting provider notified?: Yes 07/10/20 11:15 Consult Physician Stat Consulting Provider: Zak Bowman Consult Reason/Comments: temporary dialysis catheter Do you want consulting provider notified?: Yes 07/16/20 21:24 Consult Physician Routine Consulting Provider: Jose Carlos Mcdowell Consult Reason/Comments: Tracheostomy and PEG tube placement Do you want consulting provider notified?: Yes 07/17/20 07:55 Consult Physician Routine Consulting Provider: Jose Carlos Mcdowell Consult Reason/Comments: trach and peg placement, COVID 19 Do you want consulting provider notified?: Yes 07/20/20 11:22 Consult Physician Urgent Consulting Provider: Raymundo Meneses Consult Reason/Comments: Evaluate neuro function Do you want consulting provider notified?: Already Contacted 07/25/20 13:00 Consult Physician Routine Consulting Provider: Joshua Koroma Consult Reason/Comments: Dr. Gaspar would like AGNIESZKA 07/26/20 Do you want consulting provider notified?: Yes 07/28/20 11:11 Consult Physician Routine Consulting Provider: Johnnie Finley Consult Reason/Comments: sepsis Do you want consulting provider notified?: Yes 07/28/20 11:12 Consult Physician Routine Consulting Provider: Jason Vale Consult Reason/Comments: pancytopenia Do you want consulting provider notified?: Yes Primary care physician: Deepika Ingram [facility] Course: diagnosis Acute Covid pneumonia Acute hypoxic respiratory failure needing mechanical ventilation. Status post tracheostomy and PEG tube placement on 07/21/2020. Tracheostomy site infection. Altered mental status likely due to toxic metabolic encephalopathy and multiple organ dysfunction. Acute ischemic stroke petechial hemorrhage within the right frontal lobe as per CT brain. Neurology is on board. AGNIESZKA on 07/26/2020 Toxic metabolic encephalopathy Pancytopenia secondary to infection. WBC count improved and hemoglobin stable. Still thrombocytopenic. Acute kidney injury Due to ATN. Currently requiring HD Severe metabolic acidosis and hyperkalemia improved with hemodialysis Coagulase-negative staph aureus bacteremia Beta-hemolytic streptococcal for wound cultures. Hypotension/septic shock requiring low-dose norepinephrine. Left upper extremity negative for DVT. Superficial thrombus in the left cephalic vein and left base leg pain Heparin-induced thrombocytopenia. Changed to argatroban and currently on Eliquis. Suspected ischemia of the left hand on anticoagulation and draped Coffee ground vomiting with suspected acute GI bleed Thrombocytopenia Elevated troponin, secondary to renal function impairment, viral infection and hypotension Hospital course This is a pleasant 53 years old male with past medical history of hypertension, osteoarthritis, sleep apnea. Presents with respiratory distress secondary to covid pneumonia and secondary bacterial infection is suspected as well with positive sputum culture for streptococcus, group C. Patient is currently monitored in the ICU because of his respiratory failure, currently on mechanical ventilation and need a small dose of Levophed at 4 g today. Also patient has elevated troponin and he was started on heparin drip however he developed coffee-ground emesis via anicteric tube, heparin drip was stopped and hemoglobin is stable and normal at 12.4 today. Permit Review Assistant found to his elevated troponin is secondary to his Covid infection and hypotension, Lovenox is on hold although patient has elevated d-dimer due to coffee ground vomiting. Distal sedation, his blood pressure is marginal 104/60 this morning. Pulmonary team performed closely and help with vent management, his PEEP was increased today from 15-18. His oxygen saturation is guarded at 100% with FiO2 of 70%. Patient has marginal urine output at 20 mL/h and continue with normal saline at 80 mL per hour 07/09/2020 Patient remains in critical condition in the ICU, he is sedated and on mechanical ventilation with pulmonary/critical care team followed closely and management. He still needs high PEEP at 18. Today he had suspected left hand coldness and vascular surgery consult, no intervention indicated given his critical guarded condition. He had coffee-ground emesis yesterday and no such episodes, his aspirin was held as well as his Lovenox and switch his anticoagulation into argatroban drip . 4 dropping platelets 90,to 76K today. It NT chase is pending. His creatinine is worsening with nephrology on the case and patient was started on bicarbonate drip, his normal saline at 80 mL per hour was stopped He remains on ceftriaxone 2 g daily for sputum culture positive with stre ptococcus group C. Also he is on zinc, vitamin D, dexamethasone, Protonix twice daily and Carafate 07/10/2020 Patient remains in the ICU intubated and sedated with pulmonary/critical care team managing his friend, currently he is on PEEP 18 dropped to 15 today by pulmonary team. Despite his history of coffee ground vomitus he was started on argatroban drip for suspected left hand ischemia . Also he is on mild septic shock secondary to bacterial superimposed infection with streptococcus group C found in the blood and sputum cultures on the top of his bilateral Covid pneumonia. He has increased troponin leak secondary to Covid and creatinine is still elevated at 4.1 and followed closely by nephrology team Patient is tachypneic at 36 and blood pressure 121/51 Labs showing trending down WBC to 12.8 K, hemoglobin dropped to 8.9 and Carafate was stopped by coronary team. Platelets are stable 70 6K yesterday and 70 8K today. C-reactive protein is down to 16. Chest x-ray showing bilateral infiltrates. D-dimer was elevated at 34 and throatcalcitonin of 0.23 He remains on ceftriaxone 2 g per ID team, on zinc, vitamin D. Bicarbonate drip,argatroban drip, Protonix twice a day. While aspirating is kept on hold 07/11/2020 Patient in the ICU intubated and sedated. Followed by several consultants Left hand is improving however it is still dusky/bluish color. Tube feeding is in home due to coffee ground emesis. Vent management per pulmonary team, currently PEEP is lowered from 15 down to 10, hit antibodies are positive. Labs showing WBC 18 K, hemoglobin 10.0, platelets 141, creatinine is stable since yesterday at 4.1, LDH is a 1055, C-reactive protein is 13 only. On 07/10 patient was started on hemodialysis for worsening kidney function and creatinine and potassium with low urine output he is still sedated with Nimbex. Tube feeding was on hold due to his history of coffee ground vomitus recently. After the patient remains on argatroban and levophed drip Platelets 141, hemoglobin down to 10.0 K, WBC down to 18 LDH is 1055 and C-reactive protein is within the reference range at 13. Patient is afebrile. In the emergency room he was started on ceftriaxone for Covid and possible superinfection. Also sodium bicarb Was stopped and switched to tablets, normal saline is ordered by primary team, continue with argatroban drip . Also patient is an Protonix and dexamethasone and vitamins. Aspirin was discontinued as well as Lovenox. 07/13/2020 Patient was admitted hospital due to acute hypoxic respiratory failure and is currently on mechanical ventilator. Patient also developed acute kidney injury requiring hemodialysis. Patient is sedated. Assist-control 450, FiO2 50% and PEEP of 10. Patient is requiring low-dose norepinephrine drip. Afebrile. Chest x-ray showed relatively similar mid and lower lung consolidation left greater than right. Laboratory data showed WBC 13.7 hemoglobin 9.2 platelets 112 lymphocytes 0.6 D-dimer 13.34 Sodium 132 potassium 4.4 chloride 100 BUN 18 creatinine 3.57 calcium 8.3 phosphorus 8.0 ferritin 847 bilirubin 1.9 AST 71, ALT 93 LDH 1021 CK 406 CRP 70.8 and procalcitonin 0.58. Pulmonary and nephrology is on board. 07/14/2020 Patient is currently in MICU on mechanical ventilator and sedated. Assist- control 450 FiO2 50% and PEEP of 10 and respiratory 28. Chest x-ray showed stable bilateral lung infiltrates greater on the left. Laboratory data showed WBC 12.2 hemoglobin 8.7 platelets 121 lymphocytes 0.5 D- dimer is 9.42 BUN 96 and creatinine 3.97 calcium 8.4 ferritin 775 total bilirubin 1.7, AST 57 ALT 68 alk phos 87 LDH 1062 CPK 231 CRP 87.2 Patient is still low-dose norepinephrine drip. Continued on enteral feeding. Patient is scheduled for hemodialysis today. Patient is being continued dexamethasone, Eliquis and multivitamins. Pulmonary nephrology is following. 07/15/2020 Patient is currently in the MICU on mechanical ventilator. AC 450, FiO2 50% and PEEP of 8. Chest x-ray showed worsening bilateral lung infiltrates. Patient has been afebrile and requiring norepinephrine low-dose pressor support. Laboratory data showed WBC 11.6 hemoglobin 8.4 RDW 15.7 platelets 132 D-dimer is 9.0 sodium 130 potassium 4.4 bicarb is 22 BUN 84 and creatinine 3.73 ferritin 81 1.6 LDH 1061 CRP 78.3. Patient is being continued on dexamethasone and Eliquis and multivitamins. Continued on enteral tube feeding. Condition unchanged from yesterday. 07/16/2020 Patient is currently on mechanical ventilator and sedated. This is controlled for 50 respiration 28 and PEEP of 8. FiO2 70%. Chest x-ray showed unchanged appearance of patchy opacities involving the left lung and right base. Stable lines and tubes. Overnight patient was hypotensive and started back on Levophed drip. Patient is being dialyzed today. Currently on tube feeding. Laboratory data showed WBC 11.6 hemoglobin 9.5 platelets 134 neutrophils 10.3 and lymphocytes 0.6 D-dimer level is 9.95 Sodium 133 potassium 4.1 BUN 91 creatinine 3.93 ferritin 729 AST 49 ALT 52 alk phos 108 lactic acid 1103 CRP 62.7 07/17/2020 Patient is currently in the MICU. Patient was given sedation holiday yesterday was subsequently he decompensated and hypoxic and was placed back on sedation. On assist-control 450 with FiO2 60% and PEEP of 8. Patient able to tolerate hemodialysis with 2 L ultrafiltration yesterday. Currently on low-dose norepinephrine drip. Chest x-ray showed diffuse pulmonary infiltrates unchanged without any major interval changes. Laboratory data showed WBC 13.0, hemoglobin 8.2, d-dimer 6.05 Sodium 132 potassium 4.2 BUN 76 and creatinine 3.41, LDH 889 and CRP 4.4 Pulmonary and nephrology is on board. 07/18/2020 Patient is MICU currently sedated and paralyzed and on mechanical ventilator. Assist-control 450 FiO2 50% and PEEP of 8. Chest x-ray showed bilateral multifocal and confluent opacities consistent with COVID-19 infection. No significant interval change from one day earlier. Laboratory data showed WBC 10.5, hemoglobin 8.5 platelets 129 d-dimer 5.4, fibular nose and 576, sodium 1:30 potassium 4.1 BUN 84 and a creatinine 3.74 blood sugar is controlled, LDH 855 and CRP 5.2 by Pulmonary nephrology is following. Patient has been afebrile. Tolerating tube feeding. Continued on and abuts the form of ceftriaxone, dexamethasone 6 mg IV daily and added IV Lasix 80 mg every 12 as blood pressure tolerates. Blood cultures grew coagulase-negative staph aureus. 07/19/2020 Patient is currently on mechanical ventilator. Patient failed weaning trials. Gen. surgery was consulted for possible tracheostomy and PEG tube placement On assist-control 450 FiO2 50% and PEEP of 6. Chest x-ray showed bilateral pulmonary infiltrates involving lower lobes without much change. Laboratory data showed WBC 9.1 hemoglobin 8.9 which is 148 d-dimer 6.68 sodium 135 potassium 3.9. 91 and creatinine 4.51 Sputum cultures grew beta hemolytic Streptococcus and Armida albicans. Repeat blood culture have been negative. Patient is being continued on ceftriaxone. 07/20/2020 Patient is currently in the MICU, remains intubated. Patient tolerated sedation holiday for 11 hours and was following simple commands. Patient became tachy pneic and agitated and was started back on Diprivan. Chest x-ray showed interval improvement in bilateral airspace infiltrates particularly in the right upper lobe. Tolerating tube feeding. Patient is scheduled for tracheostomy and PEG tube placement. Otherwise patient is being continued on IV Lasix. Continue antibiotics been on ceftriaxone, dexamethasone. Laboratory showed WBC 8.1 hemoglobin 8.1 platelets 126 D-dimer 13.38 Eliquis on hold due to pending surgery. Sodium 133 potassium 3.7 BUN 82 and creatinine 4.5 ferritin 1037, LDH 792 Pulmonary, neurology and general surgery is on board. 07/21/2020 Patient is currently remained medically ventilated. Sedated. Chest x-ray showed interval improvement suggested in the bilateral airspace infiltrates particularly in the right upper lobe. Patient is scheduled for tracheostomy and PEG tube placement today. Laboratory data showed WBC 7.1 hemoglobin 7.4 and platelets 120 Sodium 138 potassium 3.2 BUN 75 creatinine 4.01 Patient is being continued on antibiotics at home ceftriaxone. Continued on deferoxamine and Lasix. Eliquis is on hold due to schedule surgery. 07/22/2020 Patient is currently in the MICU. Status post tracheostomy and PEG tube placement on 07/21/2020 On ventilator via trach, FiO2 50% PEEP of 6. ABG showed pH 7.36, pCO2 40 and pO2 169. Patient is also on low-dose Levophed.. Chest x-ray showed bilateral multifocal and confluent opacities consistent with COVID-19 infection with no significant interval change.. Patient is continued on ceftriaxone with sputum cultures growing strep species. 2 feedings intake started today. Otherwise patient is being continued on dexamethasone 6 g daily and Eliquis to be started once cleared by surgery. Patient does have good urine output. Afebrile. Neurology and surgery and pulmonary is on board. 07/23/2020 Patient is currently in the intensive care unit. On mechanical ventilation to the tracheostomy tube. Assist-control 450 FiO2 40% and PEEP of 5. ABG showed p H 7.39 pCO2 43 pO2 149. Patient was given sedation holiday yesterday however patient did not wake up. Neurology was consulted CT brain was ordered. Showed decreased attenuation within the right frontal lobe without cortical increased attenuation which could reflect petechial hemorrhage. Patient is currently not on any anti-Coblation. Eliquis is on hold since 07/19/2020. Hemoglobin 7.4 and platelets 105. D-dimer 8.18. Patient is not on any aspirin and Plavix at this time. PEG tube became plugged when the crescendo oral medications were being instilled through the PEG tube. Surgery was notified and the PACU was removed. Planning for NG tube placement. Otherwise patient is being continued on ceftriaxone for beta-hemolytic streptococcus in the sputum suctioned. Patient had hemodialysis on 07/21/2020 with 2.5 L ultrafiltration. Laboratory data showed sodium 136 potassium 3.5 chloride 104 bicarb 22 BUN 54 and creatinine 2.6. Patient remained on IV Lasix 80 mg twice daily. Patient does have urine output. A Lasix 40 CRP 5.6 Chest x-ray showed diffuse bilateral groundglass airspace disease/pulmonary edema with current small pleural effusion with adjacent atelectasis. Pulmonary and neurology and nephrology is on board. 07/24/2020 Patient is currently in intensive care unit. Status post tracheostomy. On mechanical ventilator assist control with tidal volume 4 50 mL, FiO2 40% and PEEP of 5. PEG tube feeding is on hold due to blockages and started on TPN. Off pressor support. Anticoagulation is also on hold. Neurology is following. CT showed repeat it is of subarachnoid hemorrhage associated with abnormal hypodensity posterior laterally in the right frontal lobe was again noted. Not significantly changed.. Possible acute ischemic stroke with small right frontal region and with a mild petechial hemorrhage in the cortical ribbon as per neurology. Patient is being continued on antibiotics the form of ceftriaxone. Continued on IV Lasix 80 mg twice daily. Patient does have urine output. Laboratory data showed diabetes. 4.1 hemoglobin 7.4 BUN 68 and creatinine 3.54 Patient is being followed by neurology, pulmonary and nephrology. 07/25/2020 Patient is currently in the MICU. Status post tracheostomy and PEG tube placement. Patient is able to open his eyes and move extremities with verbal commands.. He does have left-sided eye droop. Neurologist plan for repeat CT scan tomorrow. Patient is also scheduled for AGNIESZKA and PEG tube replacement tomorrow. Currently patient is being continued on TPN. Chest x-ray showed findings similar to prior exam. Correlate for volume overload, pneumonia, edema, renal failure. Patient is being continued Lasix 80 mg twice daily. Also on dexamethasone and anticoagulation is on hold due to areas of subarachnoid hemorrhage and the most recent CT head. Laboratory data showed WBC 2.1, hemoglobin 7.4 and platelets 138 BUN 78 and creatinine 3.65 ferritin 850 LDH 654 and CRP 5.9. Critical care care team, nephrology and neurology is following. 08/03/2020 Patient is currently in MICU. Profile reviewed. Off sedation. Remains ventilation via trach. Patient is tachypneic and using abdominal muscles. Currently assist control 500 rate of 24 FiO2 25% and PEEP of 4 Chest x-ray showed tracheostomy tube in upper trachea. Right lower lobe pulmonary infiltrate slightly improved and known evidence of pneumothorax. Laboratory data showed BUN 135 and creatinine 2.8 patient does have urine output. Currently on antibiotics day 7 Eraxis due to fungal infections in the catheter tip, sputum and urine. Nephrology is following and not planning for hemodialysis today. WBC 1.6 and hemoglobin 7.6 and platelets 18. Currently not on any anticoagulation since yesterday. 08/04/2020 Patient is in the MICU. Status post tracheostomy and PEG tube placement. Currently vent via trach. Off sedation for several days. Able to open his eyes with verbal commands. Unable to move his extremities and is very weak. Currently assist control with rate of 24 and tidal volume 500 FiO2 25% and PEEP of 5. Chest x-ray showed stable appearance of patchy bilateral infiltrates. Patient is currently PEG tube feeding with Nepro laboratory data showed WBC 7.9 hemoglobin 7.2 platelets 15 and received 1 unit of platelets yesterday. Sodium level is 146 potassium 3.9 chloride 114 bicarb is 19 blood sugar is 165 and creatinine level 3.15 AST 78 and ALT 191 alk phos 206. Currently on antibiotics in the form of Flagyl. ID is on board. Neck wound cultures showing interval gram-negative bacilli. Final culture is pending. Patient did complete Eraxis for candidal urinary tract infection. T-max 101.1 and patient is tachycardic remains in sinus rhythm. Hemodialysis is scheduled for today. 08/05/2020 Patient is currently in the MICU. Denies ventilator via tracheostomy. FiO2 25% and PEEP of 5. Tidal volume 500 assist-control. Patient is tachypneic and using accessory muscles of breathing. Letter will be increased to 40%. Otherwise patient is alert and opens his eyes with verbal commands. Follows simple commands. Otherwise patient is extremely weak and able to move his lower extremities but not upper extremities. T-max is 100.3 and patient is being continued on Flagyl, cefepime and Eraxis which are stopped today. Tracheostomy tube site infection with cultures growing gram-negative bacilli and final culture report is pending. Lab data showed WBC 14.1 hemoglobin 6.4 platelets 13,000 sodium 138 potassium 3.4 BUN 108 and creatinine 2.74. Patient underwent hemodialysis yesterday. Patient is being transfused with 1 unit of PRBC. Also receiving 1 unit of platelets. Remains on tube feeding and also with fecal management system. 08/06/2020 Patient remains in ICU and is off sedation for several days. Still tachypneic and using accessory muscles of respiration. Currently mechanical ventilator assist control 400 FiO2 40% PEEP of 5. FiO2 increased to 80% today. Patient underwent hemodialysis yesterday. Patient is also being treated with antibiotics in the form of cefepime for tracheostomy site infection. ID is on board. Patient is able to blink his eyes and move his lower extremities. Extremity weak otherwise. Neurology is on board. Repeat CT head was done couple days ago showed no new changes. Patient does have hemorrhagic stroke which is stable. Hemoglobin is stable at 8 and WBC count increased to 26. GCF was discontinued. Laboratory data showed platelets 43,000, D-dimer 4.84, BUN 69 and creatinine 2.15 calcium 8.3 bilirubin 1.6 AST 65 ALT 111 alk phos 249 and CRP 15.4. Patient is being followed by pulmonary, nephrology, neurology, ID and general surgery. 08/07/2020 Patient is currently in the MICU. Remains on mechanical ventilator with assist control tidal volume 400 FiO2 60% and PEEP of 5. Respiration rate of 24. Due to poor prognosis and after discussing with the family, family has decided to go with comfort measures. Currently being continued on supportive care only. Otherwise patient is unresponsive and does not follow simple commands. Resting in the bed comfortably. Continued on IV hydration and tube feeding with Nepro at 36/mL/h. No significant overnight changes. Patient be continued on comfort measures at this time. Patient at 1445. Family is at bedside and has been notified. Patient Condition at Discharge: Undetermined Plan - Discharge Summary Discharge Rx Participant: No New Discharge Prescriptions: No Action Sertraline HCl [Zoloft] 200 mg PO DAILY ARIPiprazole [Abilify] 5 mg PO BID Cholecalciferol (Vitamin D3) [Vitamin D3 (5000 Iu)] 125 mcg PO DAILY ALPRAZolam [Xanax] 0.25 mg PO DAILY PRN PRN Reason: Anxiety Zinc 50 mg PO DAILY Discharge Medication List Sertraline HCl [Zoloft] 200 mg PO DAILY 10/24/14 [History] ARIPiprazole [Abilify] 5 mg PO BID 08/14/18 [History] ALPRAZolam [Xanax] 0.25 mg PO DAILY PRN 07/04/20 [History] Cholecalciferol (Vitamin D3) [Vitamin D3 (5000 Iu)] 125 mcg PO DAILY 07/04/20 [History] Zinc 50 mg PO DAILY 07/04/20 [History] Follow up Appointment(s)/Referral(s): Deepika Frankel III, MD [Primary Care Provider] - 1-2 days Discharge Disposition: - Preliminary Cause of Preliminary Cause of : Acute hypoxic respiratory failure secondary to COVID-19 pneumonia
--- NOTE | 2020-08-25 11:54 | CDI ---
Documentation Clarification Form Date: 08/25/2020 11:29:59 AM From: Joslyn MartinPadronJORDYN schmidt, CCDS Admit Date: 07/05/2020 04:36:00 AM Patient Name: Aureliano Malcolm Visit Number: [id number] Discharge Date: 08/07/2020 04:30:00 PM ATTENTION: The Clinical Documentation Specialists (CDI) and [facility] Coding Staff appreciate your assistance in clarifying documentation. Please respond to the clarification below the line at the bottom and electronically sign. The CDI & [facility] Coding staff will review the response and follow-up if needed. Please note: Queries are made part of the Legal Health Record. If you have any questions, please contact the author of this message via ITS. Dr. Johnine Finley: UTI was identified per the 07/05, 07/28 & 08/06 Urinalysis and documented beginning on 07/05 in the Attending Progress Note: UA shows evidence of UA. Per the 07/28 Infectious Disease Consult: Patient with an episode of fever; could be more likely related to the possible catheter-associated infection. Per the 07/29 Attending Progress Note: On Eraxis for Fungal UTI. Additional clarification regarding the etiology of the UTI is requested. History/Risk Factors per the 07/04 H/P: Hypertension, DJD, Sleep Apnea, Legal blindness, Former smoker. Clinical Indicators: Presented to the ED on 07/04 with SOB, tested positive for COVID 19 8 days prior, now with increased weakness & difficulty breathing, worsening cough. ED Clinical Impression: Pneumonia due to COVID 19 virus. Elevated troponins. 07/05 UA: Dark yellow, Cloudy, 2+ protein, Trace ketones, Small Blood, WBC 15, Hyaline Cast 222. 07/28 UA: Yellow, Turbid, Trace protein, Small Blood, Trace Esterase, RBC 11, WBC 25. 08/06 UA: Yellow, Cloudy, 1+ protein, Moderate Blood, Trace Esterase, RBC 17. 07/05 Urine Culture (Final): Negative. 07/22 Urinary Cath Tip Culture (Final): Armida Albicans x2. 07/26 Urinary Cath Tip Culture (Final): Armida Albicans 07/28 Urine Culture (Final): Armida Albicans Silva Catheter was started on 07/05 per Nursing Notes. Treatment 4/5: IV fluid Na Cl 1,000 mls @ 999 mls/hr q1H x2, IV Vasopressin, IV Actemra, IV Levaquin, IV Decadron, IV Vancomycin 07/27: IV Eraxis, IV Decadron 07/30: IV Cefepime Please clarify the etiology of the UTI, if known: [ ] UTI related Silva catheter [ ] UTI not related to Silva catheter [ ] UTI related to positive Armida Culture, related to Silva catheter [ ] UTI related to positive Armida Culture, not related to Silva catheter [ ] Other condition, please specify [ ] Unable to determine (Template Last Revised: May 2020) UTI related to Silva catheter MTDD
== END 2020-08-07 16:30 | disposition expired | DRG 3 ==
LOC: EC 18:29 → 6NMEDSUR 20:01 → 3SCARD 20:38 → 2SICU 07-05 04:22 → OBSVTOIN 07-05 04:36 → 2SICU 07-06 20:12
PROVIDERS: ADMIT Hospitalist; ATTEND Hospitalist
PROC: 5A1955Z Respiratory Ventilation, Greater than 96 Consecutive Hours (ICD-10-PCS; 2020-07-05)
PROC: 0BH17EZ Insertion of Endotracheal Airway into Trachea, Via Natural or Artificial Opening (ICD-10-PCS; 2020-07-05)
PROC: XW033H5 Introduction of Tocilizumab into Peripheral Vein, Percutaneous Approach, New Technology Group 5 (ICD-10-PCS; 2020-07-05)
PROC: 3E033XZ Introduction of Vasopressor into Peripheral Vein, Percutaneous Approach (ICD-10-PCS; 2020-07-05)
PROC: 0D9670Z Drainage of Stomach with Drainage Device, Via Natural or Artificial Opening (ICD-10-PCS; 2020-07-06)
PROC: 4A133J1 Monitoring of Arterial Pulse, Peripheral, Percutaneous Approach (ICD-10-PCS; 2020-07-07)
PROC: 4A133B1 Monitoring of Arterial Pressure, Peripheral, Percutaneous Approach (ICD-10-PCS; 2020-07-07)
PROC: 04HY32Z Insertion of Monitoring Device into Lower Artery, Percutaneous Approach (ICD-10-PCS; 2020-07-07)
PROC: 06HM33Z Insertion of Infusion Device into Right Femoral Vein, Percutaneous Approach (ICD-10-PCS; 2020-07-07)
PROC: 3E0G76Z Introduction of Nutritional Substance into Upper GI, Via Natural or Artificial Opening (ICD-10-PCS; 2020-07-08)
PROC: 06HY33Z Insertion of Infusion Device into Lower Vein, Percutaneous Approach (ICD-10-PCS; 2020-07-10)
PROC: 5A1D70Z Performance of Urinary Filtration, Intermittent, Less than 6 Hours Per Day (ICD-10-PCS; 2020-07-10)
PROC: B34HZZZ Ultrasonography of Right Upper Extremity Arteries (ICD-10-PCS; 2020-07-14)
PROC: 05HM33Z Insertion of Infusion Device into Right Internal Jugular Vein, Percutaneous Approach (ICD-10-PCS; 2020-07-21)
PROC: 0JH63XZ Insertion of Tunneled Vascular Access Device into Chest Subcutaneous Tissue and Fascia, Percutaneous Approach (ICD-10-PCS; 2020-07-21)
PROC: 0B110F4 Bypass Trachea to Cutaneous with Tracheostomy Device, Open Approach (ICD-10-PCS; principal; 2020-07-21 17:15)
PROC: 0DH63UZ Insertion of Feeding Device into Stomach, Percutaneous Approach (ICD-10-PCS; principal; 2020-07-21 17:15)
PROC: 02HV33Z Insertion of Infusion Device into Superior Vena Cava, Percutaneous Approach (ICD-10-PCS; 2020-07-22)
PROC: 3E0436Z Introduction of Nutritional Substance into Central Vein, Percutaneous Approach (ICD-10-PCS; 2020-07-23)
PROC: 0DP63UZ Removal of Feeding Device from Stomach, Percutaneous Approach (ICD-10-PCS; 2020-07-26)
PROC: 0DH63UZ Insertion of Feeding Device into Stomach, Percutaneous Approach (ICD-10-PCS; 2020-07-26)
PROC: 3E0G76Z Introduction of Nutritional Substance into Upper GI, Via Natural or Artificial Opening (ICD-10-PCS; 2020-07-27)
PROC: 30243N1 Transfusion of Nonautologous Red Blood Cells into Central Vein, Percutaneous Approach (ICD-10-PCS; 2020-07-28)
PROC: 30243R1 Transfusion of Nonautologous Platelets into Central Vein, Percutaneous Approach (ICD-10-PCS; 2020-08-03)
DX: A41.89 Other specified sepsis (principal); B37.49 Other urogenital candidiasis; T83.511A Infection and inflammatory reaction due to indwelling urethral catheter, initial encounter; J12.82 Pneumonia due to coronavirus disease 2019; N17.0 Acute kidney failure with tubular necrosis; I60.9 Nontraumatic subarachnoid hemorrhage, unspecified; R65.21 Severe sepsis with septic shock; R40.20 Unspecified coma; U07.1 COVID-19; G92 Toxic encephalopathy; E43 Unspecified severe protein-calorie malnutrition; I21.A1 Myocardial infarction type 2; J15.4 Pneumonia due to other streptococci; J80 Acute respiratory distress syndrome; G62.81 Critical illness polyneuropathy; D61.818 Other pancytopenia; G81.94 Hemiplegia, unspecified affecting left nondominant side; K92.0 Hematemesis; E87.2 Acidosis; E87.0 Hyperosmolality and hypernatremia; I82.612 Acute embolism and thrombosis of superficial veins of left upper extremity; D62 Acute posthemorrhagic anemia; J93.9 Pneumothorax, unspecified; E87.1 Hypo-osmolality and hyponatremia; B17.8 Other specified acute viral hepatitis; L03.221 Cellulitis of neck; J98.11 Atelectasis; F31.30 Bipolar disorder, current episode depressed, mild or moderate severity, unspecified; J95.02 Infection of tracheostomy stoma; K94.23 Gastrostomy malfunction; K91.840 Postprocedural hemorrhage of a digestive system organ or structure following a digestive system procedure; Z66 Do not resuscitate; Z51.5 Encounter for palliative care; D75.82 Heparin induced thrombocytopenia (HIT); E66.01 Morbid (severe) obesity due to excess calories; F20.9 Schizophrenia, unspecified; Z99.2 Dependence on renal dialysis; E11.9 Type 2 diabetes mellitus without complications; J98.2 Interstitial emphysema; D63.8 Anemia in other chronic diseases classified elsewhere; H49.22 Sixth [abducent] nerve palsy, left eye; E83.39 Other disorders of phosphorus metabolism; I10 Essential (primary) hypertension; E87.6 Hypokalemia; E87.70 Fluid overload, unspecified; H02.402 Unspecified ptosis of left eyelid; G47.33 Obstructive sleep apnea (adult) (pediatric); E87.5 Hyperkalemia; E78.5 Hyperlipidemia, unspecified; T36.1X5A Adverse effect of cephalosporins and other beta-lactam antibiotics, initial encounter; T38.0X5A Adverse effect of glucocorticoids and synthetic analogues, initial encounter; B95.61 Methicillin susceptible Staphylococcus aureus infection as the cause of diseases classified elsewhere; K57.90 Diverticulosis of intestine, part unspecified, without perforation or abscess without bleeding; M81.0 Age-related osteoporosis without current pathological fracture; F41.9 Anxiety disorder, unspecified; H54.8 Legal blindness, as defined in USA; G89.29 Other chronic pain; M54.5 Low back pain; M19.90 Unspecified osteoarthritis, unspecified site; Z68.36 Body mass index [BMI] 36.0-36.9, adult; T45.515A Adverse effect of anticoagulants, initial encounter; Z79.899 Other long term (current) drug therapy; Z90.49 Acquired absence of other specified parts of digestive tract; Z87.19 Personal history of other diseases of the digestive system; Z87.891 Personal history of nicotine dependence; Z98.890 Other specified postprocedural states; Z71.3 Dietary counseling and surveillance; Z88.0 Allergy status to penicillin; Z82.49 Family history of ischemic heart disease and other diseases of the circulatory system; Z82.3 Family history of stroke; Z80.9 Family history of malignant neoplasm, unspecified; Y84.6 Urinary catheterization as the cause of abnormal reaction of the patient, or of later complication, without mention of misadventure at the time of the procedure; Y92.230 Patient room in hospital as the place of occurrence of the external cause
CPT/HCPCS: 36415; 36573; 36600; 43246; 70450; 71045; 71250; 77001; 80048; 80053; 81001; 82140; 82330; 82550; 82553; 82565; 82728; 82805; 83010; 83605; 83615; 83625; 83735; 83880; 84100; 84132; 84145; 84478; 84484; 85025; 85027; 85045; 85379; 85384; 85610; 85730; 86022; 86140; 86706; 86707; 86850; 86900; 86901; 86920; 87040; 87070; 87075; 87086; 87205; 87324; 87340; 87350; 87635; 90935; 93005; 93306; 93880; 93923; 94002; 94003; 94640; 95816; 99285